=== PATIENT | female | born 1950 | race Caucasian/White ===

== ENCOUNTER → 2018-01-29 14:50 | Outpatient (CLI) | payer MEDICARE, MEDICAID, SELFPAY ==
--- NOTE | 2018-01-29 14:57 | CT_ITS ---
STUDY: CT MAXILLOFACIAL SINUSES REASON FOR EXAM: Female, 67 years old. Acute maxillary sinusitis RADIATION DOSAGE (If Supplied By Facility): CTDIvol = ( 33.06 ) mGy, DLP = ( 829.72 ) mGycm TECHNIQUE: The patient was scanned in a multi detector CT scanner. High resolution axial imaging was performed without the administration of intravenous contrast material. Sagittal and coronal images were reconstructed. Individualized dose optimization techniques were used for this CT. COMPARISON: None. FINDINGS: FRONTAL SINUSES: Clear. ETHMOIDAL SINUSES: Normal aeration, without mucosal inflammatory disease. MAXILLARY SINUSES: Air-fluid level left maxillary sinus. SPHENOIDAL SINUSES: Normal aeration, without mucosal inflammatory disease. There is patency of the bilateral maxillary infundibuli with normal uncinate processes, ethmoid bullae, and hiatus semilunaris. There is a nik bullosa of the right middle turbinate. Normal bilateral inferior turbinates. Normal midline nasal septum. There is patency of the bilateral nasal airways. The visualized osseous structures are normal. The visualized bilateral orbital contents are normal. CT/Sinus/Facial Bone IMPRESSION: Acute left maxillary sinusitis Electronically Signed: Eric Woods MD at 22:00 EDT , Service support ,
== END ==
PROVIDERS: Family Provider Internal Medicine; PCP Internal Medicine; Visit Provider Otolaryngology
DX: J01.00 Acute maxillary sinusitis, unspecified (principal)
CPT/HCPCS: 70486

== ENCOUNTER 2018-02-12 10:49 | Day surgery (SDC) | payer MEDICARE, MEDICAID, SELFPAY ==
[2018-02-12] VITALS (7 sets, daily range): BP systolic 103–148; BP diastolic 64–69; PULSE 62–75; RESP 16–18; TEMP 36.1–37.2; O2SAT 94–100; BMI 18.7
--- NOTE | 2018-02-12 11:00 | EKG12_ITS ---
Test Reason : PRE OP Blood Pressure : / mmHG Vent. Rate : 066 BPM Atrial Rate : 066 BPM P-R Int : 162 ms QRS Dur : 098 ms QT Int : 396 ms P-R-T Axes : 080 015 075 degrees QTc Int : 415 ms Normal sinus rhythm Normal ECG No previous ECGs available Confirmed by HAZEL VALLE, ADDISON ([id number]), news assignment editor CANDELARIO PORTILLO ([id number]) on 02/18/2018 4:09:10 PM Referred By: Kyrie Watters Confirmed By:ADDISON OLIVA MD
[2018-02-12 11:33] LABS: Hematocrit 43.5 % (37-47); Hemoglobin 14.5 g/dl (12.0-15.0); Mean Corp Hgb Conc 33.3 g/gl (32-36); Mean Corpuscular Hgb 31.7 pg (27.0-32.0); Mean Corpuscular Volume 95.2 fL (81-99); RBC Distribution Width CV 13.8 % (11.6-14.6); RBC Distribution Width SD 47.5 fl (35.1-43.9); Red Blood Count 4.57 M/mm3 (4.2-5.4); White Blood Count 7.4 K/mm3 (4.4-11.0)
[2018-02-12 11:34] LABS: Basophil% 0.5 % (0-1); Eosinophils% 1.2 % (0-5); Lymphocyte # 1.46 X10^3/ul (4.0); Lymphocyte % 19.7 % (19-41); Mean Platelet Vol. 9.9 fl (6.2-12.0); Monocyte% 11.5 % (0-10); Neutrophil # 4.95 X10^3/uL (2.7-7.7); Platelet Count 262 K/mm3 (150-450)
[2018-02-12 11:35] LABS: Absolute Lymphocyte Count 1.46 X10^3/ul (0.83-4.51); Basophil# 0.04 X10^3/uL; Eosinophil# 0.09 X10^3/uL; Monocyte# 0.85 X10^3/uL; POSITIVE COUNT NO; POSITIVE DIFFERENTIAL NO; POSITIVE MORPHOLOGY NO
[2018-02-12 12:07] LABS: Anion Gap 5 (5-15); BUN 12 mg/dL (7-18); Calcium,Total 9.6 mg/dL (8.5-10.1); Chloride 100 mmol/L (98-107); Creatinine, Serum 0.63 mg/dL (0.55-1.02); EST Glomerular Filtration Rate 99 mL/min (>60); Est Glom Filt Rate - Afr Amer 120 mL/min (>60); Estimated Creatinine Clearance 40.23 ml/min; Glucose 98 mg/dL (74-106); Potassium 4.1 mmol/L (3.5-5.1); Sodium Level 135 mmol/L (136-145); Thyroid Stim Hormone (TSH) 0.61 uIU/mL (0.358-3.74)
[2018-02-12] MEDS: Oxymetazoline 0.05% 1 SPRAY SPRAY.BTL 15 SPRAY (14:05)
[2018-02-12] MEDS: Lidocaine 4% 50 ML Bottle (14:05)
--- NOTE | 2018-02-12 15:20 | PCM.OPRPT ---
Problem List (1) Chronic maxillary sinusitis Status: Chronic (2) Chronic ethmoidal sinusitis Status: Chronic Report of Operation Date of Procedure: 02/12/18 Pre-Operative Diagnosis: Chronic maxillary, ethmoid sinusitis with nik bullosa Post-Operative Diagnosis: same Surgery/Procedure Performed:: Endoscopic sinus surgery with bilateral maxillary antrotomies, left total ethmoidectomy, right nik bullosa resection Description of Surgical Findings:: Unit is a 67-year-old female complains of chronic facial pain pressure and postnasal drip sensation. She failed to show improvement despite continuous antibiotic and medical therapy CT scan showed chronic sinusitis changes the above procedure was offered in hopes of alleviation of her complaints and she was eager to proceed. The risks, alternatives, potential benefits, and complications were discussed at length and any questions answered to the patient and/or caregiver's satisfaction. Witnessed informed consent was obtained in the office, and the patient and/or caregiver was agreeable to proceed. Procedure went as follows: The patient was identified in the preoperative holding and brought to the operating room, was placed under general anesthesia and intubated. When appropriate anesthesia was obtained, the navigational head gear was placed and confirmed to be operational in accordance with the executive creative director's directions. Pledgets soaked in a 50-50 mixture of oxymetazoline and 4% topical lidocaine were placed to decongest the nasal mucosa. These were then removed and beginning on the left side using a 0? endoscope the nasal cavity examined. The insertion of the middle turbinate and uncinate process was then injected with 1% lidocaine with 100,000 epinephrine for a 2 cc total, and a similar injection was then carried on the contralateral side. Upon returning to the left side the middle turbinate was divided and the lateral aspect fo the nik bullosa removed with a [place] elevator. This allowed examination of the maxillary sinus ostia which is then probed with a double ball seeker. Junito purulent drainage was noted and aspirated clear. The uncinate process process was then outfractured with a J curette and transected with a backbiting forceps. This was then removed with the microdebrider creating a wide maxillary antrostomy. The ethmoid bulla was then entered and total ethmoidectomy was then carried out working posteriorly to anterior. Any polyps, scar, and mucous secretions were removed. Pledgets soaked in oxymetazoline were then placed for hemostasis and attention turned to the contralateral side. Similar procedure and findings were then carried out with multiple accessory maxillary sinus ostia noted that were joined to a common opening and the ethmoid surgery limited to resection of the lateral wall fo the nik bullosa. Minimal bleeding was encountered. An NG tube was then placed to decompress the stomach and the patient returned to anesthesia, revived and extubated having tolerated the procedure well. Type of Anesthesia:: General Anesthesiologist: Ld Hayes Special Medications: none Specimen's removed: sinus contents Drains: none Estimated Blood Loss (mL): 25 mL Fluids Replaced: 900 mL - Complications none - Admit VTE Documentation VTE Present on Admission: No VTE Mechan Device Prophylaxis: SCD's VTE Pharm Prophylaxis ordered?: No
--- NOTE | 2018-02-12 15:27 | PCM.DC ---
- Discharge Diagnoses Current Active Problems: Current Active and Chronic Problems (Last Updated 01/28/18 @ 16:55 by Lucina Perla) Chronic maxillary sinusitis (Chronic) Chronic ethmoidal sinusitis (Chronic) You will use the following diet at home:: Regular Discharge Activity: Return to Normal Activity, May not drive while taking narcotic pain medications. Call your doctor if your incision/area has: Continuous Slow Oozing, Sudden Increased Bleeding Call your doctor if you observe: Fever of 101 or Higher, Uncontrolled pain Allergies/Adverse Reactions: Allergies benztropine [From Cogentin] Allergy (Severe, Verified 01/28/18 16:37) hallucinations lithium Allergy (Severe, Verified 01/28/18 16:37) Nausea/Vom/Diarrhea niacin Allergy (Severe, Verified 01/28/18 16:37) Rash Penicillins Allergy (Severe, Verified 01/28/18 16:37) Hives soybean Allergy (Intermediate, Verified 01/28/18 16:37) Rash Sulfa (Sulfonamide Antibiotics) Allergy (Intermediate, Verified 01/28/18 16:37) Hives trazodone Allergy (Intermediate, Verified 01/28/18 16:37) breathing problems cephalexin [From Keflex] Adverse Reaction (Verified 02/05/18 10:54) yeast indection Medications to take at Discharge atenolol 25 mg tablet 25 mg PO QDAY 01/28/18 calcium citrate 200 mg (950 mg) tablet 500 mg PO BID tab 01/28/18 cetirizine 10 mg tablet 10 mg PO QDAY PRN 01/28/18 denosumab 60 mg/mL subcutaneous syringe 60 mg SC [id number] 01/28/18 diclofenac 1 % topical gel 2 g TOPICAL ONCE PRN 01/28/18 digestive enzymes tablet 1 tab PO QDAY 01/28/18 famotidine 20 mg tablet 20 mg PO BID 01/28/18 fluticasone 50 mcg/actuation nasal spray,suspension 2 spray INTRANASAL QDAY 01/28/18 folic acid 1 mg tablet 1.5 mg PO QDAY 01/28/18 guaifenesin ER 1,200 mg tablet, extended release 12 hr 1,200 mg PO Q12H 01/28/18 levothyroxine 75 mcg tablet 75 mcg PO QDAY 01/28/18 magnesium oxide 400 mg capsule 800 mg PO QDAY cap 01/28/18 metronidazole 0.75 % topical cream 1 applic TOPICAL BID 01/28/18 mirtazapine 45 mg tablet 45 mg PO QHS 01/28/18 mupirocin 2 % topical ointment 1 applic TOPICAL TID 01/28/18 omega-3 fatty acids-fish oil 360 mg-1,200 mg capsule 1 cap PO TID 01/28/18 pilocarpine 5 mg tablet 5 mg PO TID 01/28/18 Albuterol Aerosols [Ventolin Aerosols] 2.5 mg INHALATION Q6HWA.RT 02/05/18 Cholecalciferol (Vitamin D3) [Vitamin D3] 2,000 unit PO BID 02/05/18 Therems-A 1 tab PO DAILY 02/05/18 Tiotropium [place] [Spiriva 18 MCG] 1 puff INHALATION DAILY 02/05/18 Primary Care Physician: Misty Hudson MD [Primary Care Provider] - Please Follow Up With: Kyrie Watters MD When: 10 days
== END 2018-02-12 17:22 | disposition home or self-care (01) ==
LOC: SDC 10:52 → AC 10:53
PROVIDERS: Anesthesiology; Family Provider Internal Medicine; PCP Internal Medicine; Visit Provider Otolaryngology
PROC: (CPT 31240; principal; 2018-02-12 12:15)
DX: J32.0 Chronic maxillary sinusitis (principal); J32.2 Chronic ethmoidal sinusitis; J34.89 Other specified disorders of nose and nasal sinuses; I10 Essential (primary) hypertension; I48.91 Unspecified atrial fibrillation; E78.5 Hyperlipidemia, unspecified; J43.9 Emphysema, unspecified; D64.9 Anemia, unspecified; K21.9 Gastro-esophageal reflux disease without esophagitis; M19.90 Unspecified osteoarthritis, unspecified site; E11.9 Type 2 diabetes mellitus without complications; E07.9 Disorder of thyroid, unspecified; E83.42 Hypomagnesemia; F17.200 Nicotine dependence, unspecified, uncomplicated; J45.909 Unspecified asthma, uncomplicated; Z79.899 Other long term (current) drug therapy
CPT/HCPCS: 00160; 31240; 31255; 31256; 36415; 80048; 80053; 80061; 83036; 83735; 84439; 84443; 85025; 88304; 88305; 88311; 88312; 93005; J7120

== ENCOUNTER → 2018-02-12 11:21 | Outpatient (CLI) | payer MEDICARE, MEDICAID, SELFPAY ==
--- NOTE | 2018-02-12 | ETH_PTH ---
PATIENT: SHENG CISNEROS LOC: [facility] U#:[id number] AGE/SX: 74/F ROOM: RE02/12/[address]: Dr. Misty Hudson MD : 1950 BED: DIS: SPEC #: [id number] RECD: 02/15/18 09:51 STATUS: SOCRATES JESS #: [id number] CARINE: 02/12/18 00:[address]: Kyrie Watters DEPT: SURGICAL PATHOLOGY RECD BY: Emery Hernandez ENTERED: 02/15/18 10:11 SP TYPE: ETH TISS OTHR DR: Dr. Misty Hudson MD Tissues: A - Ethmoid sinus, NOS B - Ethmoid sinus, NOS Procedures: Decalcification bone/plaque Special Stain Group I Surgery Specimen Level III AFB Stain (control) GMS Stain (control) HEADER OPERATION: Endoscopy, left nasal total ethmoidectomy, left nasal maxillary antrostomy PRE-OP DIAGNOSIS: Chronic ethmoid and maxillary sinusitis TISSUE SUBMITTED: A. Right ethmoid and maxillary sinus contents, B. Left ethmoid and maxillary sinus contents MICROSCOPIC DIAGNOSIS A. Right ethmoid and maxillary sinus contents, excision: Fibrinopurulent material. Respiratory epithelium with mild chronic inflammation. Turbinate tissue with mild chronic inflammation. Negative for acid-fast bacilli and fungal organisms. B. Left ethmoid and maxillary sinus contents, excision: Consistent with chronic sinusitis. Focal fibrinopurulent material. Turbinates with mild chronic inflammation. Negative for acid-fast bacilli and fungal organisms. AM:charli 02/18/18 COMMENT A & B. AFB and GMS stains with matched controls were used in the evaluation of this case. MICROSCOPIC DESCRIPTION Slides are reviewed. GROSS DESCRIPTION A. Received in fixative is one container labeled with the patient's name and designated right ethmoid and maxillary sinus content. The specimen consists of multiple irregular fragments of hemorrhagic soft tissue mixed with fragments of bone, including turbinate that in aggregate measure 5 x 3 x 1 cm. The entire specimen is submitted in six cassettes after decalcification. B. Received in fixative is one container labeled with the patient's name and designated left ethmoid and maxillary sinus content. The specimen consists of multiple irregular fragments of hemorrhagic soft tissue mixed with fragments of bone, including turbinate that in aggregate measure 5 x 3 x 1 cm. The entire specimen is submitted in six cassettes after decalcification. / CANDIDO:catherine 02/15/18 TC:2 CPT: 66718 x2, 17972 x2, 17924 x4
[2018-02-12 11:30] LABS: Absolute Lymphocyte Count 1.46 X10^3/ul (0.83-4.51); Basophil# 0.04 X10^3/uL; Basophil% 0.5 % (0-1); Eosinophil# 0.09 X10^3/uL; Eosinophils% 1.2 % (0-5); Hematocrit 43.5 % (37-47); Hemoglobin 14.5 g/dl (12.0-15.0); Lymphocyte # 1.46 X10^3/ul (4.0); Lymphocyte % 19.7 % (19-41); Mean Corp Hgb Conc 33.3 g/gl (32-36); Mean Corpuscular Hgb 31.7 pg (27.0-32.0); Mean Corpuscular Volume 95.2 fL (81-99); Mean Platelet Vol. 9.9 fl (6.2-12.0); Monocyte# 0.85 X10^3/uL; Monocyte% 11.5 % (0-10); Neutrophil # 4.95 X10^3/uL (2.7-7.7); Platelet Count 262 K/mm3 (150-450); RBC Distribution Width CV 13.8 % (11.6-14.6); RBC Distribution Width SD 47.5 fl (35.1-43.9); Red Blood Count 4.57 M/mm3 (4.2-5.4); White Blood Count 7.4 K/mm3 (4.4-11.0)
[2018-02-12 11:32] LABS: POSITIVE COUNT NO; POSITIVE DIFFERENTIAL NO; POSITIVE MORPHOLOGY NO
[2018-02-12 11:56] LABS: Hemoglobin A1c 5.8 % (4.2-6.3)
[2018-02-12 11:57] LABS: ALB/GLOB Ratio 0.9 RATIO (0.9-2.4); AST(SGOT) 19 U/L (15-37); Alanine Aminotransfer ALT/SGPT 28 U/L (13-56); Albumin, Serum 3.9 g/dL (3.2-5.0); Alkaline Phosphatase 83 U/L (45-117); Anion Gap 7 (5-15); BUN 12 mg/dL (7-18); BUN/Creat Ratio 18.7 RATIO (10-20); Calcium,Total 9.3 mg/dL (8.5-10.1); Chloride 100 mmol/L (98-107); Cholesterol 239 mg/dL (200); Creatinine, Serum 0.64 mg/dL (0.55-1.02); EST Glomerular Filtration Rate 97 mL/min (>60); Est Glom Filt Rate - Afr Amer 118 mL/min (>60); Globulin 4.2 g/dL (2.2-4.2); Glucose 97 mg/dL (74-106); High Density Lipoprotein 101 mg/dL; Magnesium 1.9 mg/dL (1.6-2.6); Protein, Total 8.1 g/dL (6.4-8.2); Sodium Level 136 mmol/L (136-145); T4 Free Direct 1.19 ng/dL (0.76-1.46); Thyroid Stim Hormone (TSH) 0.65 uIU/mL (0.358-3.74); Triglycerides 82 mg/dL; Very Low Density Lipoprotein 16 mg/dL (5-40)
== END ==
PROVIDERS: Family Provider Internal Medicine; PCP Internal Medicine; Visit Provider Internal Medicine
DX: I10 Essential (primary) hypertension (principal); E07.9 Disorder of thyroid, unspecified; E83.42 Hypomagnesemia; E11.9 Type 2 diabetes mellitus without complications
CPT/HCPCS: 36415; 80053; 80061; 83036; 83735; 84439; 84443; 85025

== ENCOUNTER → 2018-03-15 10:38 | Outpatient (CLI) | payer MEDICARE, MEDICAID, SELFPAY ==
--- NOTE | 2018-03-18 15:10 | LEAS_ITS ---
Arterial Study - Arterial Study Arterial Study: This is a 67-year-old female with a history of peripheral arterial occlusive disease. The patient is brought to the noninvasive vascular laboratory at this time for the purpose of bilateral noninvasive lower extremity arterial assessment. Doppler signal assessment was used to evaluate the pulses at ankle level bilaterally. The posterior tibial and dorsalis pedis pulses were triphasic bilaterally. Segmental limb pressures were obtained at ankle level bilaterally. The right ankle pressure, as determined by posterior tibial pulse, was measured at 166 mmHg. The right ankle pressure, as determined by dorsalis pedis pulse, was measured at 159 mmHg. The left ankle pressure, as determined by posterior tibial pulse, was measured at 165 mmHg. The left ankle pressure, as determined by dorsalis pedis pulse, was measured at 159 mmHg. Pulse-volume recordings were obtained at ankle and digital levels bilaterally. Waveform amplitudes appeared to be satisfactory bilaterally. Resting ankle-brachial indices were calculated bilaterally. The resting right ankle-brachial index was calculated to be 1.10. The resting left ankle- brachial index was calculated to be 1.09. Impression: Based upon the findings of this resting noninvasive lower extremity arterial study, there is no evidence of significant atherosclerotic peripheral arterial occlusive disease in the lower extremities bilaterally. Triphasic waveforms are noted at ankle level bilaterally. Resting ankle-brachial indices are bilaterally normal. In summary, this represents a normal resting noninvasive lower extremity arterial study bilaterally.
== END ==
PROVIDERS: Family Provider Internal Medicine; PCP Internal Medicine; Visit Provider Internal Medicine
DX: I73.9 Peripheral vascular disease, unspecified (principal)
CPT/HCPCS: 93922

== ENCOUNTER → 2018-04-12 13:58 | Outpatient (CLI) | payer MEDICARE, MEDICAID, SELFPAY | PROVIDERS: Family Provider Internal Medicine; PCP Internal Medicine; Visit Provider Internal Medicine | DX: E04.1 Nontoxic single thyroid nodule (principal) | CPT/HCPCS: 76536 ==

== ENCOUNTER → 2018-05-10 13:03 | Outpatient (CLI) | payer MEDICARE, MEDICAID, SELFPAY ==
--- NOTE | 2018-05-10 13:05 | RAD_ITS ---
STUDY: X-RAY - LUMBAR SPINE REASON FOR EXAM: Female, 67 years old. Low back pain TECHNIQUE: 5 view(s) of the lumbar spine were obtained. COMPARISON: None FINDINGS: The bones are osteopenic. Normal lumbar lordosis. There is no substantial scoliosis. There is a normal alignment of the vertebrae. There is mild diffuse endplate spondylosis. There is multi-level degenerative disc disease with multi-level disc space narrowing. The soft tissue structures are unremarkable. RAD/L/S Spine Min 4 Views IMPRESSION: 1. Generalized osteopenia. 2. Multilevel disc space narrowing and diffuse endplate spondylosis. 3. There is no evidence of fracture, spondylolysis, or spondylolisthesis. Electronically Signed: Ricardo Finnegan MD at 23:30 EDT , Service support ,
== END ==
PROVIDERS: Family Provider Internal Medicine; PCP Internal Medicine; Visit Provider Internal Medicine
DX: M54.9 Dorsalgia, unspecified (principal)
CPT/HCPCS: 72110

== ENCOUNTER → 2018-06-02 14:00 | Outpatient (CLI) | payer MEDICARE, MEDICAID, SELFPAY ==
--- NOTE | 2018-06-03 | ASPS_PTH ---
PATIENT: SHENG CISNEROS LOC: [facility] U#:[id number] AGE/SX: 74/F ROOM: RE06/02/[address]: Dr. Carlos Moseley MD : 1950 BED: DIS: SPEC #: [id number] RECD: 06/03/18 12:11 STATUS: SOCRATES JESS #: [id number] CARINE: 06/03/18 00:[address]: Carlos Moseley DEPT: CYTOLOGY RECD BY: Maximus Barrientos ENTERED: 06/03/18 12:13 SP TYPE: ASPIRATION OTHR DR: Dr. Misty Hudson MD Tissues: Thyroid gland, NOS Procedures: Pap Stain (control) Special Stain Group II Cytology Other HEADER OPERATION: Ultrasound-guided fine needle aspiration right thyroid PRE-OP DIAGNOSIS: Multiple thyroid nodules E04.2 TISSUE SUBMITTED: Fine needle aspiration right thyroid 8 slides DIAGNOSIS CYTOLOGY Right thyroid nodule, ultrasound guided FNA (smears): Consistent with benign colloid nodule. See cytology study and comment. SJ:rg 06/04/18 COMMENT Correlation with clinical, radiologic findings and appropriate follow up are necessary. CYTOLOGY STUDY Slides are reviewed. The specimen is adequate for evaluation. The specimen consists of abundant colloid and a few clusters of benign follicular cells. CYTOLOGY GROSS Received are eight smears labeled with the patient's name and designated per the requisition as right thyroid. Submitted for staining. / 06/03/18 TC:5 CPT: 78471
== END ==
PROVIDERS: Family Provider Internal Medicine; PCP Internal Medicine; Referring Provider Surgery; Visit Provider Surgery
DX: E04.2 Nontoxic multinodular goiter (principal)
CPT/HCPCS: 88161; 88313

== ENCOUNTER 2018-08-11 14:45 | Outpatient (RCR) | payer MEDICARE, MEDICAID, SELFPAY ==
--- NOTE | 2018-08-11 16:05 | HP.PTEVAL ---
Patient's Visit Information JOVON CISNEROS is a 68 year old F referred to Physical Therapy by PUJA GARZA with a diagnosis of L hip bursitis. Date of Evaluation: 08/11/18 Physical Therapist: Enmanuel Valentino PT, ATC - Visit Plan Frequency: 2-3x /Week Duration: 4-6 Weeks Plan: L LE stretching and strengthening, balance and proprio, core stab ex's, nustep, and HEP - Subjective Findings: Pt reports she has had L hip pain for over one year. Pt reports she was referred to PT over a year ago, but was new to the area and didnt know where she should go. Pt reports her L hip is constant in nature. Pt reports her L hip pain is sharp at times and gives out on her. Pt reports she gets really bad pain in her groin region. Pt reports sleep diff at this time secondary to pain. Pt reports sitting in different positions, walking, stairs, and getting dressed all increase her pain. Pt had xrays on 07/23/18 which reveqled no positive finding. 7/10 pain at rest, 8/10 pain at worst - Pain L hip Pain Intensity (Out of 10): 7 Pain Intensity Range: 8 - Objective Neuro: B LE sensation is WNL to light touch. B patellar tendon reflex= 2/3. Palpation: Pt is point tender to touch on the greater trochanter. No obvious deformity. ROM: Pt is moderately limited with IR ROM. all other motions are WNL. MMT: L hip flex, IR, and ER 3-/5 and are painful with testing. All other LE MMT 5/5 throughout. Special tests: Pos quadrant test and piriformis test - Goals Goal 1:: Decrease L hip pain x 50% to aid with sleep Goal Time Frame: 4-6 Weeks Goal 2:: Increase L hip strength x 1 grade to aid with stair negotiation Goal Time Frame: 4-6 Weeks Goal 3:: I with HEP Goal Time Frame: 4-6 Weeks - Rehabilitation Potential Physical Therapy Diagnosis: L hi pain, weakness, and limited mobility secondary to deg changes in the L hip Rehabilitation Potential: Good - Anticipated Interventions Patient/Client Instruction: Educate patient on: Condition, Plan of Care For the Purpose of:: To improve self management Therapeutic Exercise to Include: Strength training, Endurance training, Balance training, Gait and locomotor training, Dynamic Lumbar Stabilization For the Purpose of:: To decrease pain, To increase ROM, To improve muscle performance and motor function Iontophoresis (with Dexamethozone, with Acetic acid): Yes Ultrasound (thermal/non thermal): Yes For the Purpose of:: To decrease pain Thank you for the opportunity to evaluate your patient. For Medicare and Medicare HMO plans, please review the plan of care and approve it. It will need to be FAXED BACK to us at [phone] for Medicare purposes. For Medicare only, by signing this I certify the plan of care. Please let me know if there are questions or concerns regarding this plan of care. Physician Signature: Date:
--- NOTE | 2018-11-02 16:55 | HP.PT.NRP ---
HP - Discharge Summary (1) - Patient Information JOVON CISNEROS was seen in my office for initial evaluation on 08/11/18. The following Plan of Care was established for this patient: Initial Frequency: 2-3x /Week Initial Duration: 4-6 Weeks - Anticipated Interventions Patient/Client Instruction: Educate patient on: Condition, Plan of Care For the Purpose of:: To improve self management Therapeutic Exercise to Include: Strength training, Endurance training, Balance training, Gait and locomotor training, Dynamic Lumbar Stabilization For the Purpose of:: To decrease pain, To increase ROM, To improve muscle performance and motor function Iontophoresis (with Dexamethozone, with Acetic acid): Yes Ultrasound (thermal/non thermal): Yes For the Purpose of:: To decrease pain This patient was last seen in our office . Pertinent comments regarding their Physical therapy will appear below: Pt was evaluated for her hip pain on the date of 08/11/18 and a POC was developed. Pt has not returned since that date and is therefore discontinued at this time At this point I will be discontinuing this patient from physical therapy. I would be happy to see this patient again in the future if found appropriate by the physician. Thank you! Enmanuel Valentino, PT, ATC
== END 2018-08-11 19:00 | disposition home or self-care (01) ==
LOC: PT 14:45
PROVIDERS: Family Provider Internal Medicine; PCP Internal Medicine
DX: M70.62 Trochanteric bursitis, left hip (principal); M76.32 Iliotibial band syndrome, left leg
CPT/HCPCS: 97162

== ENCOUNTER → 2018-08-24 15:19 | Outpatient (CLI) | payer MEDICARE, MEDICAID, SELFPAY ==
--- NOTE | 2018-08-24 15:23 | RAD_ITS ---
STUDY: X-RAY - PELVIS AND LEFT HIP REASON FOR EXAM: Left hip pain. TECHNIQUE: 3 views of the pelvis and hip. COMPARISON: None. FINDINGS: There is osteopenia. There is mild vascular calcification. There are surgical clips in the right hemipelvis. Normal bilateral iliac wings, sacroiliac joints and visualized sacrum. Normal bilateral superior and inferior pubic rami. Normal pubic symphysis. Normal bilateral ischial tuberosities. There is a subchondral radiolucency with sclerotic margins in the left femoral head. Normal acetabulum. There is mild chondrocalcinosis at the lateral aspect of left hip joint. RAD/HIP, UNI W/ Pelvis 2-3 Views IMPRESSION: Subchondral cystic lesion with sclerotic margins in the left femoral head. Mild chondrocalcinosis of the left hip joint. Osteopenia. Electronically Signed: Torres Pate MD at 10:37 EST Tel , Service support ,
== END ==
PROVIDERS: Family Provider Internal Medicine; PCP Internal Medicine; Referring Provider Nurse Practitioner Family; Visit Provider Nurse Practitioner Family
DX: M25.552 Pain in left hip (principal); G89.29 Other chronic pain
CPT/HCPCS: 73501; 73502

== ENCOUNTER → 2018-11-09 15:54 | Outpatient (CLI) | payer MEDICARE, MEDICAID, SELFPAY ==
--- NOTE | 2018-11-09 15:58 | RAD_ITS ---
STUDY: X-RAY CHEST REASON FOR EXAM: Female, 68 years old. Cough TECHNIQUE: PA and lateral views of the chest. COMPARISON: None. FINDINGS: There is hyperinflation of the lungs consistent with chronic obstructive lung disease (COPD). There is no demonstrated pleural abnormality. Normal size heart. Normal mediastinum and maureen. Normal visualized pulmonary arteries. There is atherosclerotic tortuosity of the aortic arch and descending thoracic aorta. Normal visualized thoracic spine. Normal visualized ribs, clavicles, and shoulders. There is no demonstrated abnormality of the visualized soft tissue structures of the upper abdomen. RAD/Chest PA and Lateral IMPRESSION: COPD. No focal superimposed lung infiltrate identified. Electronically Signed: Sallie Quick MD at 11:36 EDT , Service support ,
== END ==
PROVIDERS: Family Provider Internal Medicine; PCP Internal Medicine; Referring Provider Nurse Practitioner Family; Visit Provider Nurse Practitioner Family
DX: R05 Cough (principal)
CPT/HCPCS: 71046

== ENCOUNTER 2018-11-25 13:06 | Emergency (ER) | payer MEDICARE, MEDICAID, SELFPAY ==
[2018-11-25 13:07] VITALS: BP 147/87; PULSE 75; RESP 18; TEMP 36.3; O2SAT 97; BMI 20.4
--- NOTE | 2018-11-25 13:15 | EKG12_ITS ---
Test Reason : CHEST TIGHTNESS Blood Pressure : / mmHG Vent. Rate : 063 BPM Atrial Rate : 063 BPM P-R Int : 188 ms QRS Dur : 092 ms QT Int : 412 ms P-R-T Axes : 083 058 080 degrees QTc Int : 421 ms Normal sinus rhythm Normal ECG Confirmed by IVONNE NIXON ([id number]), newspaper editor managing CANDELARIO PORTILLO ([id number]) on 11/29/2018 4:55:03 PM Referred By: SEVERINO/SRINI Confirmed By:IVONNE NIXON
--- NOTE | 2018-11-25 13:35 | RAD_ITS ---
STUDY: X-RAY CHEST REASON FOR EXAM: Female, 68 years old. Increasing shortness of breath and dyspnea. TECHNIQUE: PA and lateral views of the chest. COMPARISON: Comparison is made with prior study of November 09, 2018. FINDINGS: Hyperinflation. The lungs are clear and expanded. Stable mild increased markings of the lung apices suggestive of apical scarring. Stable increased markings at the lung bases suggestive scarring. There is no demonstrated pleural abnormality. Normal size heart. Normal mediastinum and maureen. Normal visualized pulmonary arteries. There is atherosclerotic calcification of the aortic arch with tortuosity. There are degenerative changes of the visualized thoracic spine. Normal visualized ribs, clavicles, and shoulders. There is no demonstrated abnormality of the visualized soft tissue structures of the upper abdomen. RAD/Chest PA and Lateral IMPRESSION: Hyperinflation. Stable bilateral apical scarring as well as mild scarring at the lung bases. Electronically Signed: Nilton Cortes, at 14:36 EDT , Service support ,
--- NOTE | 2018-11-25 13:37 | ED.VISSUMM ---
- ER Visit Summary Date of Service: 11/25/18 Chief Complaint: Nausea, chest pain, and cough History of Present Illness: The patient is a 68 F who presents with nausea, vomiting, and chest pain that has been getting progressively worse over the past 4 weeks. Patient states she also has some pain in her left upper abdomen for the past few days. Patient describes her pain as burning, and scratchy. Patient states the pain radiates into her back and into her throat. Patient also admits to some left ear pain. Patient also admits to some pressure over her left maxillary sinus. Patient was recently given prescription for Levaquin for 5 days. Patient had no improvement after completing this. Patient is currently on doxycycline. Physical Examination: Vital signs are stable. Patient is afebrile. Patient is in no acute distress. Oral mucosa is pink and moist. Oropharynx is clear. Neck is supple. Trachea is midline. There is no JVD noted. Heart was regular rate and rhythm. Lungs showed diffuse expiratory wheezing. There is good respiratory effort noted. Abdomen is soft. There is some mild epigastric and left lower quadrant tenderness. There is no rebound or guarding noted. Cranial nerves II through XII are intact. There are no focal motor or sensory deficits noted. Test Results: EKG showed a normal sinus rhythm with a rate of 63. There are no acute ST or T wave changes. CBC was normal. Comprehensive metabolic profile showed a sodium of 126 and chloride of 90. Urinalysis was normal. Chest x-ray shows hyperinflation but no acute cardiopulmonary process. Emergency Department Course and Treatment: Patient was given a DuoNeb aerosol. Patient felt better on reevaluation. Patient was instructed to follow-up with her primary care physician in 5-7 days. Patient understood and was agreeable with the plan. All questions were answered. Disposition: Discharge home Impression: COPD exacerbation This note was generated with [employer] dictation software. It may contain incorrect words, spelling, and punctuation that were not noted in review of the chart prior to signing ED Disposition - Plan for ED Patient: Disposition: Home or Assisted Living Diagnosis: COPD with exacerbation Instructions: ED URI Viral, ED COPD Flare Referrals: Misty Hudson MD [Primary Care Provider] - 5-7 Days
[2018-11-25] MEDS: Albuterol 2.5 MG/3 ML VIAL.NEB. INHALATION (13:58)
[2018-11-25 13:59] VITALS: PULSE 62; RESP 18; O2SAT 100
[2018-11-25 14:10] LABS: Absolute Lymphocyte Count 1.09 X10^3/ul (0.83-4.51); Absolute Neutrophil Count 3.2 X10^3/uL (2.0-7.7); Basophil# 0.03 X10^3/uL; Basophil% 0.6 % (0-1); Eosinophil# 0.18 X10^3/uL; Eosinophils% 3.4 % (0-5); Hemoglobin 13.3 g/dl (12.0-15.0); Lymphocyte # 1.09 X10^3/ul (4.0); Lymphocyte % 20.7 % (19-41); Mean Corpuscular Hgb 32.1 pg (27.0-32.0); Mean Corpuscular Volume 91.8 fL (81-99); Mean Platelet Vol. 9.1 fl (6.2-12.0); Monocyte# 0.79 X10^3/uL; Neutrophil # 3.15 X10^3/uL (2.7-7.7); Neutrophil % 59.9 % (47-70); Platelet Count 185 K/mm3 (150-450); RBC Distribution Width CV 12.9 % (11.6-14.6); RBC Distribution Width SD 43.5 fl (35.1-43.9); Red Blood Count 4.14 M/mm3 (4.2-5.4); White Blood Count 5.3 K/mm3 (4.4-11.0)
[2018-11-25 14:12] LABS: POSITIVE COUNT NO; POSITIVE DIFFERENTIAL NO; POSITIVE MORPHOLOGY NO
[2018-11-25 14:25] LABS: ALB/GLOB Ratio 1.1 RATIO (0.9-2.4); AST(SGOT) 18 U/L (15-37); Alanine Aminotransfer ALT/SGPT 33 U/L (13-56); Albumin, Serum 3.6 g/dL (3.2-5.0); Alkaline Phosphatase 67 U/L (45-117); Anion Gap 3 (5-15); BUN 17 mg/dL (7-18); BUN/Creat Ratio 27.3 RATIO (10-20); Calcium,Total 9.1 mg/dL (8.5-10.1); Chloride 90 mmol/L (98-107); Creatinine, Serum 0.62 mg/dL (0.55-1.02); EST Glomerular Filtration Rate 101 mL/min (>60); Est Glom Filt Rate - Afr Amer 122 mL/min (>60); Estimated Creatinine Clearance 43.22 ml/min; Globulin 3.4 g/dL (2.2-4.2); Glucose 103 mg/dL (74-106); Lipase 80 U/L (73-393); Potassium 3.7 mmol/L (3.5-5.1); Sodium Level 126 mmol/L (136-145)
[2018-11-25 14:34] LABS: Bacteria 0 SEEN /hpf (None Seen); Mucous, Urine 0 SEEN /hpf (<or=2+); Red Blood Cells-Urine 0 SEEN /hpf (0-5); White Blood Cells 0 SEEN /hpf (0-5)
[2018-11-25 14:35] LABS: Color, Urine Straw (Yellow); Glucose, Dipstick Normal (Normal); Ketone-Dipstick Negative (Negative); Leukocyte Esterase-Dipstick Negative /ul (Negative); Nitrite-Dipstick Negative (Negative); Occult Blood-Urine Negative /ul (Negative); Protein-Dipstick Negative (Negative); Urine Bilirubin Dipstick Negative (Negative); Urine Clarity Clear (Clear); Urine Urobilinogen Normal (Normal)
[2018-11-25 14:42] LABS: Squamous Epithelial Cells - UA 0-5 SEEN /hpf (5-10)
[2018-11-25 15:27] VITALS: PULSE 78; RESP 16; O2SAT 98
== END 2018-11-25 15:28 | disposition home or self-care (01) ==
PROVIDERS: Emergency Provider Emergency Medicine; Family Provider Internal Medicine; PCP Internal Medicine
DX: J44.1 Chronic obstructive pulmonary disease with (acute) exacerbation (principal); K21.9 Gastro-esophageal reflux disease without esophagitis; I10 Essential (primary) hypertension; E78.00 Pure hypercholesterolemia, unspecified; E03.9 Hypothyroidism, unspecified; F17.200 Nicotine dependence, unspecified, uncomplicated
CPT/HCPCS: 71046; 80053; 81001; 83690; 85025; 93005; 94640; 99283; A4216

== ENCOUNTER → 2018-12-07 | Outpatient (CLI) | payer MEDICARE, MEDICAID, SELFPAY ==
[2018-11-25 13:07] VITALS: BMI 20.4
--- NOTE | 2018-12-07 13:45 | MRI_ITS ---
STUDY: MRI LUMBAR SPINE WITHOUT CONTRAST REASON FOR EXAM: Female, 68 years old. Low back pain and left hip pain TECHNIQUE: Standardized fat and water weighted pulse sequences were obtained in the sagittal and axial planes. COMPARISON: None FINDINGS: T12-L1: Normal endplates. Normal disc height, hydration and morphology. Normal bilateral facet joints. Normal central canal and bilateral lateral recesses. Normal bilateral intervertebral neural foramina. Normal lumbar lordosis. There is no substantial scoliosis. Normal conus medullaris that terminates at the L1 level. Nonspecific edema in the bilateral L5 pedicles. Differential includes stress injury and bone bruising. L1-2: Normal endplates. Normal disc height, hydration and morphology. Normal bilateral facet joints. Normal central canal and bilateral lateral recesses. Normal bilateral intervertebral neural foramina. L2-3: Normal endplates. Normal disc height, hydration and morphology. Normal bilateral facet joints. Normal central canal and bilateral lateral recesses. Normal bilateral intervertebral neural foramina. L3-4: Bulging annulus and bilateral facet hypertrophy with moderate bilateral foraminal stenoses. L4-5: Bulging annulus and central disc protrusion with bilateral facet hypertrophy. Mild central canal and moderate bilateral foraminal stenoses. L5-S1: Bulging annulus and bilateral facet hypertrophy with mild central canal and moderate bilateral foraminal stenoses. Normal visualized sacral ala. Normal visualized paraspinous soft tissue structures. Renal cysts. MRI/Spine Lumbar (Routine) IMPRESSION: Multilevel degenerative disease as described. Moderate bilateral foraminal stenoses at the L3-4, L4-5, and L5-S1 levels. Nonspecific edema in the bilateral L5 pedicles. Differential includes stress injury and bone bruising. Electronically Signed: Judd Meadows MD at 14:23 EDT Tel , Service support ,
== END | disposition home or self-care (01) ==
PROVIDERS: Family Provider Internal Medicine; PCP Internal Medicine; Referring Provider Anesthesiology Pain Medicine; Visit Provider Anesthesiology Pain Medicine
DX: M51.37 Other intervertebral disc degeneration, lumbosacral region (principal); M54.17 Radiculopathy, lumbosacral region
CPT/HCPCS: 72148

== ENCOUNTER → 2018-12-20 | Outpatient (CLI) | payer MEDICARE, MEDICAID, SELFPAY ==
[2018-12-10 13:59] VITALS: BMI 20.4
[2018-12-20 16:06] LABS: Anion Gap 9 (5-15); BUN 16 mg/dL (7-18); BUN/Creat Ratio 24.4 RATIO (10-20); Calcium,Total 9.6 mg/dL (8.5-10.1); Chloride 93 mmol/L (98-107); Creatinine, Serum 0.66 mg/dL (0.55-1.02); EST Glomerular Filtration Rate 95 mL/min (>60); Est Glom Filt Rate - Afr Amer 114 mL/min (>60); Glucose 85 mg/dL (74-106); Magnesium 1.6 mg/dL (1.6-2.6); Potassium 3.8 mmol/L (3.5-5.1); Sodium Level 131 mmol/L (136-145); T4 Free Direct 1.14 ng/dL (0.76-1.46); Thyroid Stim Hormone (TSH) 1.63 uIU/mL (0.358-3.74)
== END | disposition home or self-care (01) ==
LOC: MTLAB 14:22
PROVIDERS: Family Provider Internal Medicine; PCP Internal Medicine; Referring Provider Nurse Practitioner Family; Visit Provider Nurse Practitioner Family
DX: J44.9 Chronic obstructive pulmonary disease, unspecified (principal); E03.9 Hypothyroidism, unspecified; E83.42 Hypomagnesemia
CPT/HCPCS: 36415; 80048; 83735; 84439; 84443

== ENCOUNTER → 2018-12-27 | Outpatient (CLI) | payer MEDICARE, MEDICAID, SELFPAY ==
[2018-12-10 13:59] VITALS: BMI 20.4
--- NOTE | 2018-12-27 14:00 | US_ITS ---
STUDY: THYROID ULTRASOUND REASON FOR EXAM: Female, 68 years old. Nodule TECHNIQUE: Ultrasound evaluation of the thyroid was performed with real-time and static castrejon-scale imaging. COMPARISON: None. FINDINGS: RIGHT LOBE: The right lobe of the thyroid gland measures 4.3 x 0.9 x 1.4 cm. There is a homogeneous echotexture. 2 complex cystic nodules are noted measuring 6 x 3 mm with small mural solid nodular component. LEFT LOBE: The left lobe of the thyroid gland measures 3.2 x 1.0 x 1.0 cm. There is a homogeneous echotexture. There is a hypoechoic 2 mm mid thyroid cyst. ISTHMUS: The isthmus measures 3 mm . The regional lymph nodes are normal. US/Thyroid IMPRESSION: Right thyroid complex cystic nodules. Left thyroid cyst. Electronically Signed: Terry Booth DO at 22:40 EDT Tel [phone], Service support ,
== END | disposition home or self-care (01) ==
LOC: US 13:53
PROVIDERS: Family Provider Internal Medicine; PCP Internal Medicine; Referring Provider Nurse Practitioner Family; Visit Provider Nurse Practitioner Family
DX: E04.1 Nontoxic single thyroid nodule (principal)
CPT/HCPCS: 76536

== ENCOUNTER → 2018-12-28 | Outpatient (CLI) | payer MEDICARE, MEDICAID, SELFPAY ==
[2018-12-10 13:59] VITALS: BMI 20.4
== END | disposition home or self-care (01) ==
LOC: OPBD 13:43
PROVIDERS: Family Provider Internal Medicine; PCP Internal Medicine; Referring Provider Nurse Practitioner Family; Visit Provider Nurse Practitioner Family
DX: M81.0 Age-related osteoporosis without current pathological fracture (principal)

== ENCOUNTER → 2019-01-03 | Outpatient (CLI) | payer MEDICARE, MEDICAID, SELFPAY ==
[2018-12-10 13:59] VITALS: BMI 20.4
== END | disposition home or self-care (01) ==
LOC: LABSPEC 16:32
PROVIDERS: Family Provider Internal Medicine; PCP Internal Medicine; Referring Provider Otolaryngology Otolaryngology/Facial Plastic Surgery; Visit Provider Otolaryngology Otolaryngology/Facial Plastic Surgery
DX: J32.9 Chronic sinusitis, unspecified (principal); J02.9 Acute pharyngitis, unspecified
CPT/HCPCS: 87070; 87205

== ENCOUNTER → 2019-01-17 | Outpatient (CLI) | payer MEDICARE, MEDICAID, SELFPAY ==
[2019-01-17 13:59] VITALS: BMI 20.4
[2019-01-17 17:49] LABS: Anion Gap 7 (5-15); BUN 14 mg/dL (7-18); Calcium,Total 9.5 mg/dL (8.5-10.1); Chloride 94 mmol/L (98-107); Creatinine, Serum 0.61 mg/dL (0.55-1.02); EST Glomerular Filtration Rate 103 mL/min (>60); Est Glom Filt Rate - Afr Amer 125 mL/min (>60); Glucose 89 mg/dL (74-106); Potassium 3.7 mmol/L (3.5-5.1); Sodium Level 133 mmol/L (136-145)
== END | disposition home or self-care (01) ==
LOC: MTLAB 15:09
PROVIDERS: Family Provider Internal Medicine; PCP Internal Medicine; Referring Provider Internal Medicine; Visit Provider Internal Medicine
DX: E87.1 Hypo-osmolality and hyponatremia (principal)
CPT/HCPCS: 36415; 80048

== ENCOUNTER → 2019-02-15 | Outpatient (CLI) | payer MEDICARE, MEDICAID, SELFPAY ==
[2019-01-17 13:59] VITALS: BMI 20.4
--- NOTE | 2019-02-15 14:40 | CT_ITS ---
STUDY: LOW DOSE CT LUNG CANCER SCREENING REASON FOR EXAM: Female, 68 years old. Screening RADIATION DOSAGE (If Supplied By Facility): CTDIvol = ( 1.70 ) mGy, DLP = ( 59.98 ) mGycm TECHNIQUE: No contrast was administered. Low dose technique was utilized (average mAS-38 and kVp 120). 1.25 mm axial source images with a slice interval of 1.25-mm were reconstructed in lung windows. 2.5 mm axial source images with a slice interval of 2.5-mm were reconstructed in lung windows. 5.0 mm axial source images with a slice interval of 5.0-mm were reconstructed in soft tissue windows. Nodule measured using lung windows on PACS and/or independent workstation with automated measurement of minimum and maximum diameter. Nodule measurement reported as average diameter rounded to the nearest whole number. Growth is defined as an increase ins size of greater than 1.5 mm. COMPARISON: None. NODULES: Total lung nodules (excluding granulomas): 0 Emphysema: Mild Endobronchial lesion: None Aorta: Normal Coronary arteries: Normal Heart: Normal Pulmonary artery: Normal Mediastinal nodes: Normal Other chest and abdominal findings: None CT/Low Dose CT Lung Screening IMPRESSION: Mild emphysema. No significant pulmonary nodules or masses. L-Rads 1 IMPORTANT NOTES FOR USE: ACR Lung-RADS Version 1.0 Assessment Categories Release Date: December 12, 2013 Category: Coded 0-4 bases on nodule(s) with highest degree of suspicion. Negative screen is defined as categories 1 and 2; a positive screen is defined as categories 3 and 4. Category 3 and 4A nodules that are unchanged on interval CT should be coded as category 2, and individuals returned to screening in 12 months. Category 4X: Category 3 or 4 nodules with additional imaging findings that increase the suspicion of lung cancer, such as spiculation, GGN that doubles in size in 1 year, enlarged lymph notes, etc. Category Modifiers: S (significant finding unrelated to lung cancer) and C (prior history of treated lung cancer) may be added to the 0-4 Lung-RADS Electronically Signed: Alec Ackerman, at 21:46 EDT Tel , Service support ,
== END | disposition home or self-care (01) ==
LOC: CT 14:39
PROVIDERS: Family Provider Internal Medicine; PCP Internal Medicine; Referring Provider Internal Medicine; Visit Provider Internal Medicine
DX: Z87.891 Personal history of nicotine dependence (principal)
CPT/HCPCS: G0297

== ENCOUNTER → 2019-02-16 | Outpatient (CLI) | payer MEDICARE, MEDICAID, SELFPAY ==
[2019-02-15 15:34] VITALS: BMI 20.4
[2019-02-21 12:06] LABS: Alternaria tenuis <0.10 kU/L (Class 0); Ash, White <0.10 kU/L (Class 0); Aspergillus fumigatus <0.10 kU/L (Class 0); Bermuda Grass <0.10 kU/L (Class 0); Birch <0.10 kU/L (Class 0); Black Walnut <0.10 kU/L (Class 0); Cat Hair / Dander,Stand <0.10 kU/L (Class 0); Cedar, Mountain <0.10 kU/L (Class 0); Cladosporium herbarum <0.10 kU/L (Class 0); Cockroach, American <0.10 kU/L (Class 0); Cottonwood <0.10 kU/L (Class 0); D farinae Mite <0.10 kU/L (Class 0); D pteronyssinus <0.10 kU/L (Class 0); Dog Epithelia <0.10 kU/L (Class 0); Elm, American White <0.10 kU/L (Class 0); Immunoglobulin E 348 IU/mL (6-495); Maple/Box Elder <0.10 kU/L (Class 0); Mulberry, White <0.10 kU/L (Class 0); Oak, White <0.10 kU/L (Class 0); Pecan <0.10 kU/L (Class 0); Penicillium Notatum <0.10 kU/L (Class 0); Pigweed, Rough <0.10 kU/L (Class 0); Ragweed, Short/Common <0.10 kU/L (Class 0); Russian Thistle <0.10 kU/L (Class 0); Sheep Sorrel <0.10 kU/L (Class 0); Sycamore, American <0.10 kU/L (Class 0); Timothy Grass <0.10 kU/L (Class 0)
[2019-02-21 12:51] LABS: Mouse Urine <0.10 kU/L (Class 0)
[2019-02-21 20:06] LABS: Chocolate <0.10 kU/L (Class 0); Clam <0.10 kU/L (Class 0); Codfish <0.10 kU/L (Class 0); Corn <0.10 kU/L (Class 0); Egg, White 0.62 kU/L (Class II); Milk (Cow) 0.46 kU/L (Class I); Peanut <0.10 kU/L (Class 0); SCALLOP <0.10 kU/L (Class 0); SESAME SEED <0.10 kU/L (Class 0); Shrimp <0.10 kU/L (Class 0); Soybean <0.10 kU/L (Class 0); Walnut, (Food) <0.10 kU/L (Class 0); Wheat <0.10 kU/L (Class 0)
[2019-02-23 18:14] LABS: Yeast <0.10 kU/L (Class 0)
== END | disposition home or self-care (01) ==
LOC: MTLAB 15:21
PROVIDERS: Family Provider Internal Medicine; PCP Internal Medicine; Referring Provider Otolaryngology Otolaryngology/Facial Plastic Surgery; Visit Provider Otolaryngology Otolaryngology/Facial Plastic Surgery
DX: T78.40XA Allergy, unspecified, initial encounter (principal)
CPT/HCPCS: 36415; 82785; 86003

== ENCOUNTER → 2019-04-12 | Outpatient (CLI) | payer MEDICARE, MEDICAID, SELFPAY ==
[2019-04-12 13:47] VITALS: BMI 21.7
== END | disposition home or self-care (01) ==
PROVIDERS: Family Provider Internal Medicine; PCP Internal Medicine; Referring Provider Nurse Practitioner Acute Care; Visit Provider Nurse Practitioner Acute Care
DX: J32.0 Chronic maxillary sinusitis (principal)
CPT/HCPCS: 87070; 87205; 87633

== ENCOUNTER → 2019-04-19 | Outpatient (CLI) | payer MEDICARE, MEDICAID, SELFPAY ==
[2019-04-19 14:52] VITALS: BMI 21.7
[2019-04-19 18:02] LABS: Anion Gap 5 (5-15); BUN 15 mg/dL (7-18); BUN/Creat Ratio 22.3 RATIO (10-20); Calcium,Total 9.5 mg/dL (8.5-10.1); Chloride 100 mmol/L (98-107); Creatinine, Serum 0.67 mg/dL (0.55-1.02); EST Glomerular Filtration Rate 92 mL/min (>60); Est Glom Filt Rate - Afr Amer 111 mL/min (>60); Glucose 114 mg/dL (74-106); Magnesium 1.7 mg/dL (1.6-2.6); Potassium 4.2 mmol/L (3.5-5.1); Sodium Level 137 mmol/L (136-145); T4 Free Direct 0.83 ng/dL (0.76-1.46); Thyroid Stim Hormone (TSH) 0.57 uIU/mL (0.358-3.74)
== END | disposition home or self-care (01) ==
LOC: MTLAB 16:03
PROVIDERS: Family Provider Internal Medicine; PCP Internal Medicine; Referring Provider Nurse Practitioner Family; Visit Provider Nurse Practitioner Family
DX: R00.2 Palpitations (principal)
CPT/HCPCS: 36415; 80048; 83735; 84439; 84443

== ENCOUNTER → 2019-04-26 14:07 | Outpatient (CLI) | payer MEDICARE, MEDICAID, SELFPAY ==
[2019-04-19 14:52] VITALS: BMI 21.7
== END ==
PROVIDERS: Family Provider Internal Medicine; PCP Internal Medicine; Referring Provider Nurse Practitioner Family; Visit Provider Nurse Practitioner Family
DX: R00.2 Palpitations (principal)
CPT/HCPCS: 93225; 93226

== ENCOUNTER → 2019-06-01 13:33 | Outpatient (CLI) | payer MEDICARE, MEDICAID, SELFPAY ==
[2019-04-12 13:47] VITALS: BMI 21.7
[2019-04-19 14:52] VITALS: BMI 21.7
--- NOTE | 2019-06-01 13:36 | US_ITS ---
STUDY: THYROID ULTRASOUND REASON FOR EXAM: Female, 68 years old. Thyroid nodule TECHNIQUE: Ultrasound evaluation of the thyroid was performed with real-time and static castrejon-scale imaging. COMPARISON: 12/27/2018 FINDINGS: RIGHT LOBE: The right lobe of the thyroid gland measures 4.3 x 1.2 x 1.4 cm. There is a homogeneous echotexture. There is no change in a 3 mm hypoechoic nodule within the right lobe consistent with an adenoma. There is also no change in a 5 mm hypoechoic nodule anteriorly in the right lobe consistent with an adenoma. LEFT LOBE: The left lobe of the thyroid gland measures 3.1 x 1.3 x 1.1 cm. There is a homogeneous echotexture. No change in a 2 mm hypoechoic nodule left lobe consistent with an adenoma. ISTHMUS: The isthmus measures 3 mm thick. . The regional lymph nodes are normal. US/Thyroid IMPRESSION: Essentially normal thyroid ultrasound with normal size and echogenicity with some tiny adenomas. Electronically Signed: Emery Velazquez MD at 15:40 EDT Tel , Service support ,
[2019-06-01 16:26] LABS: Absolute Lymphocyte Count 2.05 X10^3/uL (0.83-4.51); Absolute Neutrophil Count 2.8 X10^3/uL (2.0-7.7); Basophil# 0.06 X10^3/uL; Eosinophil# 0.28 X10^3/uL; Eosinophils% 4.7 % (0-5); Hematocrit 40.6 % (37-47); Hemoglobin 13.3 g/dL (12.0-15.0); Lymphocyte # 2.05 X10^3/ul (4.0); Lymphocyte % 34.6 % (19-41); Mean Corp Hgb Conc 32.8 g/dL (32-36); Mean Corpuscular Hgb 30.8 pg (27.0-32.0); Mean Platelet Vol. 10.6 fl (6.2-12.0); Monocyte# 0.69 X10^3/uL; Monocyte% 11.7 % (0-10); NRBC Flagged by Analyzer 0 % (0-5); Neutrophil # 2.83 X10^3/uL (2.7-7.7); Neutrophil % 47.8 % (47-70); Platelet Count 225 K/mm3 (150-450); RBC Distribution Width CV 13.3 % (11.6-14.6); RBC Distribution Width SD 45.9 fl (35.1-43.9); Red Blood Count 4.32 M/mm3 (4.2-5.4); White Blood Count 5.9 K/mm3 (4.4-11.0)
[2019-06-06 03:06] LABS: Alternaria alternata <0.10 kU/L (Class 0); Aspirgillus flavus Negative (Neg:<1:1); Aspirgillus fumigatus Negative (Neg:<1:1); Aspirgillus niger Negative (Neg:<1:1); Bermuda Grass <0.10 kU/L (Class 0); Bluegrass, Kentucky <0.10 kU/L (Class 0); Cat Hair/Dander, Standard <0.10 kU/L (Class 0); D farinae Mite <0.10 kU/L (Class 0); D pteronyssinus <0.10 kU/L (Class 0); Dog Epithelia <0.10 kU/L (Class 0); Elm, American White <0.10 kU/L (Class 0); Oak, White <0.10 kU/L (Class 0); Plantain, English <0.10 kU/L (Class 0); Ragweed, Short/Common <0.10 kU/L (Class 0)
[2019-06-06 13:12] LABS: Mouse Urine <0.10 kU/L (Class 0)
[2019-06-06 13:13] LABS: Immunoglobulin E 276 IU/mL (6-495)
== END ==
PROVIDERS: Nurse Practitioner Acute Care; Family Provider Internal Medicine; PCP Internal Medicine; Referring Provider Surgery; Visit Provider Surgery
DX: E04.1 Nontoxic single thyroid nodule (principal); J44.9 Chronic obstructive pulmonary disease, unspecified
CPT/HCPCS: 36415; 76536; 82785; 85025; 86003; 86606; 87070; 87205

== ENCOUNTER → 2019-06-07 13:44 | Outpatient (CLI) | payer MEDICARE, MEDICAID, SELFPAY ==
[2019-03-03 13:41] VITALS: BMI 21.7
[2019-06-01 14:30] VITALS: BMI 21.7
--- NOTE | 2019-06-08 09:44 | PFT_ITS ---
INTRODUCTION: The patient is a 68-year-old female that presents for pulmonary function studies secondary to a diagnosis of COPD. Respiratory therapy reports good patient effort. Bronchodilators were used during testing. INTERPRETATION: Forced expiration spirometry demonstrates the presence of a mild large airways obstructive ventilatory defect. There was no significant response to aerosolized bronchodilators. Spirograms are of fair quality and do not plateau indicating slow emptying of the lungs. Body plethysmography was performed and reveals lung volumes to be within normal limits. Diffusing capacity by single breath CO is within normal limits at 79% of predicted. IMPRESSION: Irreversible mild large airways obstructive ventilatory defect with preserved keaton ng volumes and diffusing capacity.
== END ==
PROVIDERS: Family Provider Internal Medicine; PCP Internal Medicine; Referring Provider Internal Medicine Critical Care Medicine; Visit Provider Internal Medicine Critical Care Medicine
DX: J43.2 Centrilobular emphysema (principal)
CPT/HCPCS: 94060; 94726; 94729

== ENCOUNTER → 2019-06-17 12:27 | Outpatient (CLI) | payer MEDICARE, MEDICAID, SELFPAY ==
[2019-03-03 13:41] VITALS: BMI 21.7
[2019-06-01 14:30] VITALS: BMI 21.7
[2019-06-17 13:48] VITALS: PULSE 70; PULSE 78; PULSE 85; PULSE 86; PULSE 88; PULSE 90; PULSE 93; O2SAT 94; O2SAT 95; O2SAT 96; O2SAT 97
--- NOTE | 2019-06-18 06:55 | PCM.PSN.6M ---
PSN 6 Minute Walk Test - 6 Minute Walk Test 6 Minute Walk Test: 6 Minute Walk Test PSN:6-Minute Walk Test Start: 06/17/19 13:47 Freq: Status: Active Protocol: [id number].6MINW Document 06/17/19 13:48 DUANE (Rec: 06/17/19 13:49 DUANE [id number]) 6 Minute Walk Test Date Performed 06/17/19 Time Performed 12:30 Height 5 ft 3 in Weight: 58.06 kg Weight in Pounds 128.[address]: Tomas Umana Assistive device used: None Pre-test Oxygen Delivery Method Room Air Pulse Ox (%) 97 Pulse Rate (60-100 beats/min) 70 Dyspnea Micki Scale (0-10) 0 Exertion Micki Scale (6-20) 6 1st minute Oxygen Delivery Method Room Air Pulse Ox (%) 97 Pulse Rate (60-100 beats/min) 85 2nd minute Oxygen Delivery Method Room Air Pulse Ox (%) 96 Pulse Rate (60-100 beats/min) 86 3rd minute Oxygen Delivery Method Room Air Pulse Ox (%) 94 Pulse Rate (60-100 beats/min) 88 4th minute Oxygen Delivery Method Room Air Pulse Ox (%) 96 Pulse Rate (60-100 beats/min) 88 5th minute Oxygen Delivery Method Room Air Pulse Ox (%) 95 Pulse Rate (60-100 beats/min) 90 6th minute Oxygen Delivery Method Room Air Pulse Ox (%) 96 Pulse Rate (60-100 beats/min) 93 Dyspnea Micki Scale (0-10) 1 Exertion Micki Scale (6-20) 11 Post-test Oxygen Delivery Method Room Air Pulse Ox (%) 96 Pulse Rate (60-100 beats/min) 78 Full Laps Walked 20 Partial Lap, Number of Tiles Walked 39 Total Distance Walked (ft) 1219 - Interpretation Interpretation: The patient was able to ambulate 1219 feet over the course of 6 minutes on room air with no assistive devices or breaks. The patient did not experience any significant desaturation or tachycardia during testing. These findings are consistent with a normal walking oximetry. - Recommendations Recommendations: No supplemental oxygen is indicated at this time.
== END ==
PROVIDERS: Family Provider Internal Medicine; PCP Internal Medicine; Referring Provider Internal Medicine Critical Care Medicine; Visit Provider Internal Medicine Critical Care Medicine
DX: J43.2 Centrilobular emphysema (principal)
CPT/HCPCS: 94618

== ENCOUNTER → 2019-07-07 13:59 | Outpatient (CLI) | payer MEDICARE, MEDICAID, SELFPAY ==
[2019-07-07 13:28] VITALS: BMI 24.4
== END ==
PROVIDERS: Family Provider Internal Medicine; PCP Internal Medicine; Referring Provider Internal Medicine Critical Care Medicine; Visit Provider Internal Medicine Critical Care Medicine
DX: J47.9 Bronchiectasis, uncomplicated (principal)
CPT/HCPCS: 94667

== ENCOUNTER → 2019-07-21 13:18 | Outpatient (CLI) | payer MEDICARE, MEDICAID, SELFPAY ==
[2019-06-23 14:09] VITALS: BMI 21.7
[2019-07-07 13:28] VITALS: BMI 24.4
--- NOTE | 2019-07-21 13:33 | BD_ITS ---
STUDY: DUAL ENERGY X-RAY ABSORPTIOMETRY / DXA REASON FOR EXAM: Female, 68 years old. Early menopause. Loss of height. TECHNIQUE: Bone Mineral Density (BMD) measurements of lumbar spine and right hip were obtained. COMPARISON: None. FINDINGS: Lumbar Spine (L1-L4): g/cm2 (0.755) / T-score (-3.5) / Z-score (-1.8) Findings are suggestive of osteoporosis with a high fracture risk. Right Femur Total: g/cm2 (0.641) / T-score (-2.9) / Z-score (-1.4) Right Femoral Neck: g/cm2 (0.686) / T-score (-2.5) / Z-score (-0.8) BD/Dexa Bone Density Study IMPRESSION: The patient is considered osteoporotic as outlined below according to World Cristopher Organization (WHO) criteria with a high fracture risk. Reference Information: The T-score is the number of standard deviations above or below the standard which is normal for young adults at their peak bone mineral density. The World Health Organization (WHO) interprets the T-scores as follows: Above -1 Normal bone density Between -1 and -2.5 Osteopenia Equal to / or below -2.5 Osteoporosis As a practical clinical guideline, osteopenia may be graded as follows: Mild -1 through -1.5 Moderate -1.6 through -2.0 Severe -2.1 through -2.4 The Z-score is the number of standard deviations above or below age-matched controls. A Z-score of less than -1.5 would be considered abnormal. References: 1. NIH Osteoporosis and Related Bone Diseases http://www.osteo.org 2. International Society for Clinical Densitometry http://www.iscd.org 3. National Osteoporosis Foundation http://www.nof.org Electronically Signed: Nilton Cortes, at 15:24 EST , Service support ,
== END ==
PROVIDERS: Family Provider Internal Medicine; PCP Internal Medicine; Visit Provider Internal Medicine
DX: M81.0 Age-related osteoporosis without current pathological fracture (principal)
CPT/HCPCS: 77080

== ENCOUNTER 2019-08-01 08:33 | Day surgery (SDC) | payer MEDICARE, MEDICAID, SELFPAY ==
[2019-07-07 13:28] VITALS: BMI 24.4
[2019-07-26 15:33] VITALS: BMI 24.0
[2019-08-01] VITALS (7 sets, daily range): BP systolic 118–138; BP diastolic 70–81; PULSE 55–66; RESP 16; TEMP 36.8–37.2; O2SAT 99–100; BMI 24.9
[2019-08-01] MEDS: Lactated Ringers 1,000 ML 100 ML IV (09:43)
--- NOTE | 2019-08-01 10:15 | RAD_ITS ---
PROCEDURE: Ganglion block. DATE OF EXAMINATION: August 01, 2019. INDICATION: Female, 69 years old. Lower back pain. FLUOROSCOPY TIME (if supplied): (12.5 seconds) minutes/seconds. 3 intraoperative views were obtained. Intraoperative imaging provided for presacral ganglion block. RAD/Fluor Guidance for Spine Inj IMPRESSION: Intraoperative imaging provided for presacral ganglion block. Electronically Signed: Nilton Cortes, at 14:25 EST , Service support ,
[2019-08-01] MEDS: Bupivacaine 0.25% 30 ML Vial (10:29)
[2019-08-01] MEDS: MethylPREDNISolone Acetate 80 MG/ML Vial (10:29)
--- NOTE | 2019-08-01 12:48 | OP.PCM_ITS ---
Report of Operation Date of Procedure: 08/01/19 Description of Surgical Findings:: PREOPERATIVE DIAGNOSIS: Coccydynia. POSTOPERATIVE DIAGNOSIS: Coccydynia. PROCEDURE PERFORMED: Inferior hypogastric ganglion steroid injection (ganglion impar steroid injection) under fluoroscopy guidance. ANESTHESIA: MAC. BLOOD LOSS: Minimal. COMPLICATIONS: None. DESCRIPTION OF PROCEDURE: History and physical of today was reviewed. Risks and benefits of the procedure were explained. The patient understood and agreed to proceed. Informed consent was obtained. IV inserted per routine protocol. The patient was taken to the operating room and placed in the prone position with a pillow positioned underneath the abdomen. The lower back and tailbone area was prepped and draped in a sterile fashion using iodine x3. Under fluoro scopy guidance on lateral view, the caudal space was identified. The skin and subcutaneous tissue was anesthetized with approximately 3 mL of 1% lidocaine using a 25-gauge regular needle. Under direct visualization with fluoroscopy on a lateral view, using a 22-gauge 3-1/2-inch spinal needle, the needle was passed through the skin. The tip of the needle was maneuvered and directed towards the sacrococcygeal ligament. The needle was passed through the sacrococcygeal ligament and advanced anterior through the sacrococcygeal membrane anterior to the sacrum. After negative aspiration for blood, a total of 2 mL of contrast was injected to confirm correct placement of the needle as well as anterior spread through the sacrum and coccyx on lateral view. After repeated negative aspiration and confirmation on lateral as well as AP view, a total of 10 mL of preservative-free 0.125% Marcaine with 40 mg of Depo-Medrol was injected. The needle was then removed intact. The patient experienced no sign or symptoms of intrathecal or intravascular injection. The patient experienced no paresthesia. The procedure was completed without any apparent difficulty or any complications. The patient appeared to tolerate it well. ASSESSMENT AND PLAN: This is a 68-year-old female with coccydynia, status post inferior hypogastric (ganglion impar) steroid injection under fluoroscopy guidance. The patient will continue her current medications. The patient will follow up in approximately 2 weeks for reevaluation.
== END 2019-08-01 11:32 | disposition home or self-care (01) ==
LOC: SDC 08:33 → AC 08:36
PROVIDERS: Family Provider Internal Medicine; PCP Internal Medicine; Referring Provider Anesthesiology Pain Medicine; Visit Provider Anesthesiology Pain Medicine
PROC: 3E0T3BZ Introduction of Anesthetic Agent into Peripheral Nerves and Plexi, Percutaneous Approach (ICD-10-PCS; CPT 64999; principal; 2019-08-01 10:05)
DX: M53.3 Sacrococcygeal disorders, not elsewhere classified (principal); M46.1 Sacroiliitis, not elsewhere classified; M48.07 Spinal stenosis, lumbosacral region; M47.27 Other spondylosis with radiculopathy, lumbosacral region; M51.17 Intervertebral disc disorders with radiculopathy, lumbosacral region; M46.96 Unspecified inflammatory spondylopathy, lumbar region; G25.81 Restless legs syndrome; K21.9 Gastro-esophageal reflux disease without esophagitis; M81.0 Age-related osteoporosis without current pathological fracture; E11.40 Type 2 diabetes mellitus with diabetic neuropathy, unspecified; H40.9 Unspecified glaucoma; I10 Essential (primary) hypertension; J43.9 Emphysema, unspecified; F32.9 Major depressive disorder, single episode, unspecified; F41.9 Anxiety disorder, unspecified; E06.9 Thyroiditis, unspecified; I48.91 Unspecified atrial fibrillation; M19.90 Unspecified osteoarthritis, unspecified site; Z78.0 Asymptomatic menopausal state; Z86.2 Personal history of diseases of the blood and blood-forming organs and certain disorders involving the immune mechanism; Z85.828 Personal history of other malignant neoplasm of skin; Z79.82 Long term (current) use of aspirin; Z79.891 Long term (current) use of opiate analgesic; Z79.899 Other long term (current) drug therapy; F17.200 Nicotine dependence, unspecified, uncomplicated
CPT/HCPCS: 01992; 64999; 64483; 72020; 77003; J7120

== ENCOUNTER → 2019-08-09 12:38 | Outpatient (CLI) | payer MEDICARE, MEDICAID, SELFPAY ==
[2019-08-01 09:14] VITALS: BMI 24.9
[2019-08-09 13:46] LABS: AST(SGOT) 30 U/L (15-37); Alanine Aminotransfer ALT/SGPT 47 U/L (13-56); Albumin, Serum 3.8 g/dL (3.2-5.0); Alkaline Phosphatase 60 U/L (45-117); Bilirubin, Direct 0.13 mg/dL (0.00-0.30); Cholesterol 228 mg/dL (200); Globulin 3.7 g/dL (2.2-4.2); High Density Lipoprotein 91 mg/dL; Protein, Total 7.5 g/dL (6.4-8.2); Triglycerides 86 mg/dL; Very Low Density Lipoprotein 17 mg/dL (5-40)
== END ==
PROVIDERS: Family Provider Internal Medicine; PCP Internal Medicine; Referring Provider Internal Medicine Cardiovascular Disease; Visit Provider Internal Medicine Cardiovascular Disease
DX: E78.00 Pure hypercholesterolemia, unspecified (principal)
CPT/HCPCS: 36415; 80061; 80076

== ENCOUNTER → 2019-08-30 13:03 | Outpatient (CLI) | payer MEDICARE, MEDICAID, SELFPAY ==
[2019-08-01 09:14] VITALS: BMI 24.9
--- NOTE | 2019-08-30 13:04 | ECHOD_ITS ---
Reason For Study: AFIB/FLUTTER Procedure This was a 2D Doppler, Color Flow transthoracic echocardiogram. Exam performed in department. Left Ventricle Normal size and thickness. The estimated ejection fraction is 65 %. Stage 1 diastolic dysfunction. No regional wall motion abnormalities noted. Right Ventricle Normal size and thickness. Normal systolic function. Atria Normal left atrium. Normal right atrium. Normal atrial septum. Mitral Valve The mitral valve is structurally normal. No prolapse or stenosis seen. Tricuspid Valve Normal tricuspid valve. Trivial tricuspid valve insufficiency. Right ventricular systolic pressure estimated to be 27 mmHg. Aortic Valve Normal aortic valve. Trisinus/trileaflet aortic valve. Pulmonic Valve Normal pulmonic valve. Great Vessels Normal aortic root. Normal arch. Normal inferior vena cava. Inferior vena cava collapse with sniff. Pericardium/Pleural No pericardial effusion. MMode/2D Measurements & Calculations LVIDd: 3.9 cm IVSd: 0.92 cm Ao root diam: 3.0 cm LVIDs: 2.5 cm LVPWd: 0.88 cm RVDd: 3.2 cm FS: 35.5 % LAV(MOD-bp): 39.2 ml LA A4 area: 11.7 cm2 LA dimension(2D): 2.7 cm LAV(MOD-bp) Indexed: 24.0 ml/m2 LAV(MOD-sp2): 35.3 ml LAV(MOD-sp4): 29.3 ml RA A4 area: 9.6 cm2 Time Measurements MV dec time: 0.17 sec Doppler Measurements & Calculations MV E max elmer: 105.8 cm/sec Lat Peak E' Elmer: 8.9 cm/sec Med Peak E' Elmer: 9.7 cm/sec MV A max elmer: 116.6 cm/sec E/E' lat: 11.8 E/E' med: 10.9 MV E/A: 0.91 Ao V2 max: 124.4 cm/sec LV V1 max: 94.8 cm/sec PA V2 max: 84.4 cm/sec Ao max P.2 mmHg LV V1 max P.6 mmHg TR max elmer: 228.3 cm/sec TR max P.9 mmHg Interpretation Summary The estimated ejection fraction is 65 %. Stage 1 diastolic dysfunction. Trivial tricuspid valve insufficiency. Right ventricular systolic pressure estimated to be 27 mmHg. There is no comparison study available. Ordering Physician: Isiah Joshi Referring Physician: Panda Kirkland Performed By: Ailin Chi RDCS, RVT
--- NOTE | 2019-08-30 13:06 | CT_ITS ---
STUDY: CT MAXILLOFACIAL SINUSES REASON FOR EXAM: Female, 69 years old. Sinusitis, left ear pain, sinus surgery with ethmoidectomy 2018. [employer] protocol. RADIATION DOSAGE (If Supplied By Facility): CTDIvol = ( 33.06 ) mGy, DLP = ( 846.25 ) mGycm TECHNIQUE: The patient was scanned in a multi detector CT scanner. High resolution axial imaging was performed without the administration of intravenous contrast material. Sagittal and coronal images were reconstructed. Individualized dose optimization techniques were used for this CT. COMPARISON: None. FINDINGS: FRONTAL SINUSES: Partial opacification of the frontal sinuses with mucosal thickening. ETHMOIDAL SINUSES: Partial opacification of the bilateral ethmoidal sinuses MAXILLARY SINUSES: Status post surgical changes at the level of the bilateral maxillary sinuses medial wall antrectomy and partial ethmoidectomy. Otherwise normal aeration, without mucosal inflammatory disease. SPHENOIDAL SINUSES: Mild air-fluid level within the sphenoid sinus. Postsurgical changes of the bilateral maxillary infundibuli otherwise patent . Normal bilateral middle turbinates. Normal bilateral inferior turbinates. Normal midline nasal septum. There is patency of the bilateral nasal airways. The visualized osseous structures are normal. The visualized bilateral orbital contents are normal. Bilateral middle ear structures and mastoids are clear. CT/Sinus/Facial Bone IMPRESSION: Clear bilateral maxillary sinuses. Status post operative changes through the bilateral maxillary sinuses. Sequela of sinusitis involving the remainder of the paranasal sinuses. Electronically Signed: Sadia Nova MD at 2:02 EST , Service support ,
== END ==
PROVIDERS: Family Provider Internal Medicine; PCP Internal Medicine; Referring Provider Otolaryngology; Visit Provider Otolaryngology
DX: J32.9 Chronic sinusitis, unspecified (principal); I48.0 Paroxysmal atrial fibrillation; I10 Essential (primary) hypertension
CPT/HCPCS: 70486; 93306

== ENCOUNTER → 2019-09-09 13:19 | Outpatient (CLI) | payer MEDICARE, MEDICAID, SELFPAY ==
[2019-07-26 15:33] VITALS: BMI 24.0
[2019-08-01 09:14] VITALS: BMI 24.9
--- NOTE | 2019-09-09 13:21 | STEWCON_ITS ---
Reason For Study: Atrial Fibrillation Stress Results Protocol: Dobutamine Stress Echo With Definity Maximum Predicted HR: 149 bpm Target HR: 127 bpm % Maximum Predicted HR: 95 % DurationHeart Rate Stage (mm:ss) (bpm) BP Comment Baseline 64 146/90No Chest Pain; 5 ML Diluted Definity Given DSE 10 MCG 3:38 67 137/78No Chest Pain DSE 20 MCG 3:00 87 128/80No Chest Pain DSE 30 MCG 3:00 100 149/61No Chest Pain DSE 40 MCG 2:03 141 134/65No Chest Pain; Atropine 0.25 MG IVP Recovery 99 117/68No Chest Pain Stress Duration: 11:41 mm:ss Maximum Stress HR: 141 bpm METS: 1 Baseline Echocardiogram Findings The estimated ejection fraction is 65 %. Stress Echo Wall motion Data Resting WM Intermediate WM Stress WM Resting Wall Motion Wall Motion Stress No regional wall motion No regional wall motion abnormalities noted. abnormalities noted. EKG Data The baseline ECG displays normal sinus rhythm. The patient was titrated from 10 mcg to a maximum of 40 mcg of dobutamine during the stress. The maximum heart rate attained was 142 beats per minute. This was 95% of maximum predicted heart rate. During dobutamine infusion, there were no ST or T wave changes noted to suggest ischemia. No clinical angina was noted. Interpretation Summary The estimated ejection fraction is 65 %. Normal, adequate, dobutamine echocardiogram. Negative for ischemia by EKG and echocardiographic criteria. No anginal symptoms noted. Rare PACs noted. Final LVEF is 75%. Decreased sensitivity due to poor echo windows requiring Definity agent. Patient tolerated the procedure well. No complications. The study was technically difficult. Contrast injection was performed. Ordering Physician: Isiah Joshi Referring Physician: Isiah Joshi Performed By: Do Perez, YAIMA, RVT
== END ==
PROVIDERS: Family Provider Internal Medicine; PCP Internal Medicine; Referring Provider Internal Medicine Cardiovascular Disease; Visit Provider Internal Medicine Cardiovascular Disease
DX: R07.9 Chest pain, unspecified (principal); I48.0 Paroxysmal atrial fibrillation; I10 Essential (primary) hypertension
CPT/HCPCS: 93017; 93350; J7040; Q9957; A4216; C8928

== ENCOUNTER → 2020-01-16 15:14 | Outpatient (CLI) | payer MEDICARE, MEDICAID, SELFPAY ==
[2019-11-29 08:54] VITALS: BMI 24.9
[2020-01-16 16:48] LABS: Hematocrit 40.8 % (37-47); Hemoglobin 13.2 g/dL (12.0-15.0); Mean Corp Hgb Conc 32.4 g/dL (32-36); Mean Corpuscular Hgb 30.3 pg (27.0-32.0); Mean Corpuscular Volume 93.8 fL (81-99); Platelet Count 216 K/mm3 (150-450); RBC Distribution Width CV 12.8 % (11.6-14.6); RBC Distribution Width SD 44.9 fl (35.1-43.9); Red Blood Count 4.35 M/mm3 (4.2-5.4); White Blood Count 5.3 K/mm3 (4.4-11.0)
[2020-01-17 08:54] LABS: Eosinophil 5 % (0-5); Lymphocyte 35 % (19-41); Monocyte 11 % (0-10); Neutrophil-Segmented 49 % (47-70); Platelet Estimate ADEQUATE (ADEQ); Total Cells Counted 100 (MANUAL DIFF)
[2020-01-17 08:55] LABS: Differential Indicated MANUAL DIFF; Red Cell Morphology NORM C+C NORMAL (NORM C&C)
[2020-01-17 08:56] LABS: Absolute Lymphocyte Count 1.86 X10^3/uL (0.83-4.51); Absolute Neutrophil Count 2.6 X10^3/uL (2.0-7.7)
[2020-01-18 17:16] LABS: ANTINUCLEAR ANTIBODIES DIRECT Negative (Negative)
== END ==
PROVIDERS: PCP Internal Medicine; Visit Provider Nurse Practitioner Acute Care
DX: I48.0 Paroxysmal atrial fibrillation (principal); J45.909 Unspecified asthma, uncomplicated
CPT/HCPCS: 36415; 85025; 86038; 86225; 86235; 86256

== ENCOUNTER → 2020-05-10 | Outpatient (CLI) | payer MEDICARE, MEDICAID, SELFPAY ==
[2020-05-09 14:25] VITALS: BMI 24.9
== END | disposition home or self-care (01) ==
LOC: LABSPEC 15:29
PROVIDERS: PCP Internal Medicine; Referring Provider Internal Medicine Critical Care Medicine; Visit Provider Internal Medicine Critical Care Medicine
DX: J47.9 Bronchiectasis, uncomplicated (principal)
CPT/HCPCS: 87070; 87205

== ENCOUNTER → 2020-06-08 | Outpatient (CLI) | payer MEDICARE, MEDICAID, SELFPAY ==
[2020-05-09 14:25] VITALS: BMI 24.9
== END | disposition home or self-care (01) ==
LOC: LABSPEC 15:06
PROVIDERS: PCP Internal Medicine; Visit Provider Otolaryngology
DX: J32.9 Chronic sinusitis, unspecified (principal)
CPT/HCPCS: 87070; 87077; 87107; 87205

== ENCOUNTER 2020-07-05 13:56 | Outpatient (RCR) | payer MEDICARE, MEDICAID, SELFPAY ==
[2020-05-09 14:25] VITALS: BMI 24.9
[2020-06-20 13:40] VITALS: BMI 28.7
--- NOTE | 2020-07-07 08:45 | HP.OTEVAL_ITS ---
Patient's Visit Information JOVON CISNEROS is a 69 year old F, referred to Occupational Therapy by Dr. Harpal Gonzalez MD, with a diagnosis of left hand stiffness, right MF trigger finger. Date of Evaluation: 07/05/20 Occupational Therapist: Hannah Sanchez, OTR/L, CHT - Subjective This 69 year old female was seen for OT eval with dx of right MF trigger finger and left hand stiffness. Pt order was sent on 05/17/20 but pt rescheduled apt 4x. pt states at apt on 05/17/20, Dr. Gonzalez did right MF cortisone shot and recomended OT. Today pt states PIP of right MF get sore from time to time but not catching. 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 pt demo with extensor tendons rolling off MCP on left. right hand demo full composite fist with MCP joit ligament instability - Strength Strength Comments: defered due to OA deformities. pt reports no deficits with hand use for ADLs. pt has made modifications with opeing jars but this would be expected for pts age and. bilateral hand deformities - Quick DASH-Disab of Arm,Shoulder& Hand Quick DASH Score: 36.6650 - Goals Goal:: Pt will demo understanding of work/lifting and carry ergonomics to decrease stress on tendons to increase pts ind. with ADLs and IADLS and work tasks by d/c. pt will demo understanding of joint protection laila. and ad.eq. use to decrease stress on bilateral hand joints and tendons to decrease joint deformity by d/c. Goal:: pt will demo understanding on ulnar drift brace/orthosis to decrease extensor tendon from slipping over MCP by d/c - Rehabilitation General Assessment: This 69 year old female demo with left MCP ulnar deviations- therapist noted pts extensor tendon snaps ulnar on MF,RF with MCP flex. pts LF extensor tendon therapist noted it pulled radial at times and ulnar another time. This mechanical issue limits pts ease of PIP flexion of RF and LF until pts extensor tendon pulls completely off MCP and then allows for PIP flexion. Therapist was able to stabilize all three extensor tendons while pt was performing flexion of digits - pt demo smother glide of flexion and pt reported no stiffness. therapist advised pt in ulnar deviation braces and showed pt several different styles but pt declined and stated she would not use them. Therapist gave joint protection handout- ed. pt to return to Dr. Gonzalez for further eval. pt states she will review information on joint protection and return if needed clarification of information. Rehabilitation Potential: Questionable - Anticipated Interventions Orthoses, Joint Protection/Energy Conservation, Ergonomic Education, Fine Motor Coord/[place]ard, Education re assistive Equipment - Visit Plan Frequency: Every Other Week Duration: 3 Weeks TEXT: Thank you for the opportunity to evaluate your patient. For Medicare and Medicare HMO plans, please review the plan of care and approve it. It will need to be FAXED BACK to us at [phone] for Medicare purposes. Please let me know if there are questions or concerns regarding this plan of care. Physician Signature: Date:
== END 2020-07-05 19:00 | disposition home or self-care (01) ==
LOC: OT 13:56
PROVIDERS: PCP Internal Medicine; Referring Provider Specialist; Visit Provider Specialist
DX: M25.642 Stiffness of left hand, not elsewhere classified (principal); M65.331 Trigger finger, right middle finger
CPT/HCPCS: 97166

== ENCOUNTER → 2020-09-12 13:48 | Outpatient (CLI) | payer MEDICARE, MEDICAID, SELFPAY ==
[2020-07-18 13:30] VITALS: BMI 28.8
--- NOTE | 2020-09-12 15:37 | NEURO_ITS ---
NCS and/or EMG Patient Report Ordering Doctor: Alec Salazar DATE OF SERVICE: 09/12/20 Cynthia Kam is a 70-year-old female who presents for electrodiagnostic testing of the upper limbs. She complains of a zapping pain in the left armpit radiating to the left hand. She reports numbness and tingling in both arms and fingers. She has a history of carpal tunnel release in 2002 and 2003. She has ongoing neck pain. Electrodiagnostic findings: The left median motor nerve demonstrates normal distal latency with reduced amplitude and reduced conduction velocity. Right median motor nerve demonstrates normal distal latency, amplitude and conduction velocity. Ulnar motor response is normal bilaterally. Prolonged left median F- wave. Prolonged median sensory latency at the wrist bilaterally. Normal radial and ulnar sensory responses. On needle EMG, all muscles tested in the upper limb showed no evidence of dene rvation with normal motor unit action potentials. Electrodiagnostic impression: This is an abnormal study in the upper limbs 1. Electrodiagnostic findings demonstrate bilateral median mononeuropathy. This is consistent with a mild right carpal tunnel syndrome and a moderate left carpal tunnel syndrome. 2. There is no electrodiagnostic evidence for cervical radiculopathy. If there are any further questions, please do not hesitate to contact me
== END ==
PROVIDERS: PCP Internal Medicine; Referring Provider Orthopaedic Surgery; Visit Provider Orthopaedic Surgery
DX: M47.22 Other spondylosis with radiculopathy, cervical region (principal)
CPT/HCPCS: 95886; 95912

== ENCOUNTER → 2020-09-27 15:41 | Outpatient (CLI) | payer MEDICARE, MEDICAID, SELFPAY ==
[2020-09-27 14:15] VITALS: BMI 28.8
[2020-09-27 16:34] LABS: Absolute Lymphocyte Count 1.63 X10^3/uL (0.83-4.51); Absolute Neutrophil Count 2.8 X10^3/uL (2.0-7.7); Basophil# 0.04 X10^3/uL; Basophil% 0.8 % (0-1); Eosinophil# 0.04 X10^3/uL; Eosinophils% 0.8 % (0-5); Hematocrit 42.5 % (37-47); Lymphocyte # 1.63 X10^3/ul (4.0); Lymphocyte % 31.5 % (19-41); Mean Corp Hgb Conc 32.9 g/dL (32-36); Mean Corpuscular Hgb 30.6 pg (27.0-32.0); Mean Corpuscular Volume 92.8 fL (81-99); Mean Platelet Vol. 10.7 fl (6.2-12.0); Monocyte# 0.64 X10^3/uL; Monocyte% 12.4 % (0-10); NRBC Flagged by Analyzer 0 % (0-5); Neutrophil % 54.1 % (47-70); Platelet Count 252 K/mm3 (150-450); RBC Distribution Width CV 13.1 % (11.6-14.6); RBC Distribution Width SD 44.6 fl (35.1-43.9); Red Blood Count 4.58 M/mm3 (4.2-5.4); White Blood Count 5.2 K/mm3 (4.4-11.0)
[2020-09-27 16:49] LABS: Vitamin D,25 Hydroxy 40.3 ng/mL
[2020-09-27 16:52] LABS: Hemoglobin A1c 5.9 % (3.8-5.6)
[2020-09-27 16:59] LABS: AST(SGOT) 27 U/L (15-37); Alanine Aminotransfer ALT/SGPT 42 U/L (13-56); Albumin, Serum 3.9 g/dL (3.2-5.0); Alkaline Phosphatase 86 U/L (45-117); Anion Gap 4 (5-15); BUN 21 mg/dL (7-18); BUN/Creat Ratio 23.5 RATIO (10-20); Calcium,Total 9.6 mg/dL (8.5-10.1); Chloride 98 mmol/L (98-107); Cholesterol 244 mg/dL (200); Creatinine, Serum 0.89 mg/dL (0.55-1.02); EST Glomerular Filtration Rate 66 mL/min (>60); Est Glom Filt Rate - Afr Amer 80 mL/min (>60); Globulin 3.9 g/dL (2.2-4.2); Glucose 94 mg/dL (74-106); High Density Lipoprotein 96 mg/dL; Magnesium 1.8 mg/dL (1.6-2.6); Protein, Total 7.8 g/dL (6.4-8.2); Sodium Level 134 mmol/L (136-145); Thyroid Stim Hormone (TSH) 1.63 uIU/mL (0.358-3.74); Triglycerides 129 mg/dL; Very Low Density Lipoprotein 26 mg/dL (5-40)
== END ==
PROVIDERS: PCP Internal Medicine; Referring Provider Internal Medicine; Visit Provider Internal Medicine
DX: I10 Essential (primary) hypertension (principal); M81.0 Age-related osteoporosis without current pathological fracture; I48.0 Paroxysmal atrial fibrillation; E11.9 Type 2 diabetes mellitus without complications; E03.9 Hypothyroidism, unspecified; E78.5 Hyperlipidemia, unspecified
CPT/HCPCS: 36415; 80053; 80061; 82306; 83036; 83735; 84443; 85025

== ENCOUNTER → 2020-10-30 13:08 | Outpatient (CLI) | payer MEDICARE, MEDICAID, SELFPAY ==
[2020-05-09 14:25] VITALS: BMI 24.9
[2020-09-27 14:15] VITALS: BMI 28.8
--- NOTE | 2020-10-30 15:02 | PFTCOMP ---
COMPLETE PULMONARY FUNCTION TEST INTERPRETATION Brief HPI: Patient is a 70 year old female, currently under the care of myself, who presents to [facility] for complete pulmonary function tests secondary to diagnosis of bronchiectasis. Respiratory therapist reports good effort and reproducible results. Interpretation: Forced expiration spirometry shows a mild large airways obstructive ventilatory defect with an FEV1 of 77% predicted. There is no significant bronchodilator response by strict ATS criteria. Spirograms are of good quality and plateau slowly, indicating slowly emptying areas of the lungs. The respiratory flow volume loop shows decreased expiratory flow rates at all lung volumes consistent with airway obstruction. Lung volumes by body plethysmography show a normal total lung capacity at 5.17 L, 113% predicted. All other lung volumes are within normal limits. Diffusion capacity by carbon monoxide is normal at 93% predicted. The airway resistance is slightly elevated. Compared to previous pulmonary function tests from 06/07/2019, there is been a significant improvement in DLCO by 35%. Impression: Irreversible mild large airways obstructive ventilatory defect with normalization of DLCO compared to previous testing.
== END ==
PROVIDERS: PCP Internal Medicine; Referring Provider Internal Medicine Critical Care Medicine; Visit Provider Internal Medicine Critical Care Medicine
DX: J47.9 Bronchiectasis, uncomplicated (principal)
CPT/HCPCS: 94060; 94726; 94729

== ENCOUNTER 2021-01-12 12:28 | Emergency (ER) | payer MEDICARE, MEDICAID, SELFPAY ==
[2020-11-14 12:48] VITALS: BMI 30.5
[2021-01-12 12:29] VITALS: BP 158/87; PULSE 72; RESP 16; TEMP 36.6; BMI 27.4
--- NOTE | 2021-01-12 12:44 | VDLE_ITS ---
Reason For Study: Swelling Procedure LEFT Exam performed portable in ED. GSV is normal. This is a venous duplex using B-mode, color CFV is compressible, spontaneous, phasic, flow and spectral Doppler. competent, and demonstrates normal A preliminary report was called and/or faxed augmentation. to Dr. Stringer. FV is compressible, spontaneous, phasic, competent and demonstrates normal augmentation. POP V is compressible, spontaneous, phasic, competent and demonstrates normal augmentation. T/P Trunk is compressible. PTV is compressible. LT PerV is compressible. Hypoechoic, non vascular structure noted Lt Pop Fossa measuring 4.47cm x 1.69cm. VL/Venous Duplex US, Unilateral Interpretation Summary There is no evidence of left lower extremity deep vein thrombosis. Left great s aphenous vein appears patent and compressible segmentally. Hypoechoic nonvascular structure left popl iteal fossa measuring 4.47 x 1.69 cm consistent with a Chowdhury's cyst. Clinical correlation would be ap propriate. Ordering Physician: Jolly Stringer Referring Physician: Lashell Larsen Performed By: Do Perez, YAIMA, RVT
--- NOTE | 2021-01-12 12:49 | EDS_ITS ---
HPI History of Present Illness Chief Complaint: Lower Extremity Injury Detail of Chief Complaint: Left leg swelling for 3 days Informant: patient Narrative Narrative: Patient with history of chronic ankle pain. Patient states that she has had increased swelling to the lower leg for the last 3 days. She denies any trauma to her leg. She denies chest pain or shortness of breath. She does have history of rheumatoid arthritis and pseudogout. She has never had discomfort like this before. She describes a burning sensation in her leg. [facility] Medical History (Updated 01/12/21 @ 14:[address] Jolly Stringer, ) Abnormal bruising Anemia Arthritis Asthma Back problem Bleeding disorder Cancer Chronic bronchitis Chronic headaches DDD (degenerative disc disease), lumbar Depression Diabetes mellitus type II, controlled Emphysema lung Essential hypertension Fatigue Fibromyalgia GERD (gastroesophageal reflux disease) Glaucoma Hay fever Hemorrhoids Hx of squamous cell carcinoma Hyperlipidemia Hypothyroid Left renal mass Neuropathy Osteopenia Osteoporosis Palpitations Paroxysmal atrial fibrillation Rosacea Seasonal allergies Shoulder pain Skin cancer Vitamin deficiency Home Medications magnesium oxide 1,000 mg PO QHS 07/29/19 [History Last Taken Unknown] budesonide 0.5 mg/2 mL suspension for nebulization 0.5 mg INHALATION BID #180 ml 11/29/19 [Rx Last Taken Unknown] hydroxychloroquine 200 mg tablet 200 mg PO DAILY 05/09/20 [History Last Taken Unknown] euflexa gel NOT APPLICABLE 05/22/20 [History Last Taken Unknown] folic acid 20 mg capsule 20 mg PO DAILY 05/22/20 [History Last Taken Unknown] ivermectin 1 % topical cream 1 applic TOPICAL DAILY 05/22/20 [History Last Taken Unknown] mepolizumab 100 mg/mL subcutaneous auto-injector mg SC 05/22/20 [History Last Taken Unknown] valerian root 450 mg capsule mg PO 05/22/20 [History Last Taken Unknown] lansoprazole 30 mg capsule,delayed release 30 mg PO DAILY #90 cap 06/05/20 [Rx Last Taken Unknown] digestive enzymes 1 cap PO TID cap 06/29/20 [History Last Taken Unknown] digestive enzymes 1 cap PO TID #270 cap 06/29/20 [Rx Last Taken Unknown] furosemide 20 mg tablet 20 mg PO DAILY #90 tab 07/23/20 [Rx Last Taken Unknown] denosumab 60 mg/mL subcutaneous syringe 60 mg SC [id number] #1 ml 07/25/20 [Rx Last Taken Unknown] atenolol 50 mg tablet 50 mg PO BID #180 tab 08/27/20 [Rx Last Taken Unknown] omega-3 fatty acids-fish oil 360 mg-1,200 mg capsule 1 cap PO TID #270 cap 09/05/20 [Rx Last Taken Unknown] nabumetone 500 mg tablet 500 mg PO BID PRN #60 tab 09/14/20 [Rx Last Taken Unknown] guaifenesin 1,200 mg tablet, extended release 12 hr 1,200 mg PO BID PRN #60 tab 09/25/20 [Rx Last Taken Unknown] acetaminophen 325 mg tablet 650 mg PO ONCE PRN tab 09/27/20 [History Last Taken Unknown] cetirizine 10 mg capsule PO PRN 09/27/20 [History Last Taken Unknown] diclofenac sodium 1 % topical gel 2 g TOPICAL ONCE PRN 09/27/20 [History Last Taken Unknown] glycopyrrolate 9 mcg-formoterol 4.8 mcg HFA aerosol inhaler 2 puff INHALATION QAM AND QPM 90 Days #10.7 g 09/27/20 [Rx Last Taken Unknown] metaxalone 800 mg tablet 800 mg PO TID PRN #60 tab 09/27/20 [Rx Last Taken Unknown] cholecalciferol (vitamin D3) 50 mcg (2,000 unit) capsule See Rx Instructions .ROUTE .COMPLEX #180 cap 10/25/20 [Rx Last Taken Unknown] albuterol sulfate 2.5 mg INHALATION Q8H PRN 90 Days #180 ml 11/12/20 [Rx Last Taken Unknown] calcium citrate 200 mg (950 mg) tablet 200 mg PO TID #270 tab 12/04/20 [Rx Last Taken Unknown] levothyroxine 75 mcg tablet See Rx Instructions .ROUTE .COMPLEX #90 tab 12/17/20 [Rx Last Taken Unknown] multivitamin,fk-sxhd-jrcxarkc 27 mg-0.4 mg tablet tab PO DAILY tab 12/17/20 [History Last Taken Unknown] pilocarpine HCl 5 mg tablet 5 mg PO TID 90 Days #270 tab 12/24/20 [Rx Last Taken Unknown] fluticasone propionate 50 mcg/actuation nasal spray,suspension 2 spray INTRANASAL QDAY 90 Days #54.6 g 01/03/21 [Rx Last Taken Unknown] mirtazapine 30 mg tablet 30 mg PO QHS #90 tab 01/07/21 [Rx Last Taken Unknown] mirtazapine 7.5 mg tablet 7.5 mg PO QHS #90 tab 01/07/21 [Rx Last Taken Unknown] hydrocodone-acetaminophen 1 tab PO Q4H PRN PRN 2 Days #10 tablet 01/12/21 [Rx Last Taken Unknown] Allergy/AdvReac Type Severity Reaction Status Date / Time benztropine [From Cogentin] Allergy Severe hallucinati Verified 01/12/21 13:00 ons levofloxacin [From Levaquin] Allergy Severe Stomach Verified 01/12/21 13:00 pain lithium Allergy Severe Nausea/Vom/ Verified 01/12/21 13:00 Diarrhea niacin Allergy Severe Rash Verified 01/12/21 13:00 Penicillins Allergy Severe Hives Verified 01/12/21 13:00 soybean Allergy Intermediate Rash Verified 01/12/21 13:00 Sulfa (Sulfonamide Allergy Intermediate Hives Verified 01/12/21 13:00 Antibiotics) trazodone Allergy Intermediate breathing Verified 01/12/21 13:00 problems sulfamethoxazole Allergy Unknown Verified 01/12/21 13:00 [From Bactrim] trimethoprim [From Bactrim] Allergy Unknown Verified 01/12/21 13:00 candesartan AdvReac Intermediate Palpitations Verified 01/12/21 13:00 and depression hydrochlorothiazide AdvReac Intermediate Palpitations Verified 01/12/21 13:00 and depression cephalexin [From Keflex] AdvReac yeast Verified 01/12/21 13:00 indection Family History Father Asthma Heart disease High cholesterol Respiratory disease Multiple allergies Mother Anxiety Arthritis Bowel disease Colon cancer Myocardial infarction Hypertension Surgical History History of carpal tunnel surgery History of cataract removal with insertion of prosthetic lens History of closure of ileostomy History of ethmoidectomy History of ileostomy History of intestinal surgery History of orthopedic surgery History of rotator cuff surgery History of sinus surgery History of tonsillectomy History of total hysterectomy hx of finger surgery hx of muscle biopsy sinuplasty Status post LASIK surgery of both eyes Social History Smoking Status: Light Smoker (<10/day) Tobacco: How many years used: 38 second hand exposure: Yes alcohol intake: never substance use type: does not use what type of physical activity do you participate in: walking ROS ROS ED Constitutional Constitutional ED: Reports systems reviewed and no addt'l complaints, except as documented; Denies body ache(s), change in weight or chills Eyes Eyes: Denies acute decrease in peripheral vision, change in vision, double vision or loss of vision ENT ENT ED: Reports none; Denies ear pain, lip swelling, loss taste/smell, neck pain, otalgia or sore throat Cardiovascular Cardiovascular: Reports none; Denies abdominal pain, chest pain with activity, leg edema, lightheadedness, palpitations, rapid heart rate or syncope Respiratory/Chest Respiratory/Chest: Reports none; Denies change in mental status, dry cough, dyspnea, hemoptysis, shortness of breath at rest or shortness of breath with exertion Gastrointestinal Gastrointestinal: Reports none; Denies abdominal pain, change in stool character, diarrhea, hematemesis, hematochezia, melena, rectal bleeding or vomiting Genitourinary Genitourinary ED: Reports none; Denies abdominal discomfort, anuria, dysuria, genital pain or polyuria Musculoskeletal Musculoskeletal: Reports none and other Details: Left leg swelling and left ankle pain ; Denies arthralgias, back pain, difficulty walking, extremity pain, muscle weakness or myalgias Integumentary Reports none; Denies abscess or rash Neurologic Neurologic: Reports none; Denies abnormal gait, confusion, focal weakness, frequent falls, headache(s), loss of vision, numbness, paresthesias, radicular pain, vertigo or weakness Psychiatric Psychiatric: Reports systems reviewed and no addt'l complaints, except as documented and none; Denies behavioral changes, confusion, difficulty concentrating, hallucinations, suicidal ideation, tactile hallucinations or visual hallucinations Endocrine Endocrinology: Denies none, cold intolerance, excessive sweating, fatigue or heat intolerance Hematologic/Lymphatic Hematologic/Lymphatic: Reports none; Denies anemia, easy bleeding or easy bruising Allergic/Immunologic Allergic/Immunologic ED: Denies as per HPI, none, lip swelling, mouth swelling, throat swelling, tongue swelling or hives EXAM Physical Exam Const Vital Signs: 01/12/21 12:29 Temperature 97.9 F Temperature Source Temporal Pulse Rate 72 Respiratory Rate 16 Blood Pressure 158/87 H Blood Pressure Mean 110 Positive well nourished and well developed General Appearance ED: well developed and NAD HEENT Reports TM's clear and moist mucous membranes normocephalic and atraumatic; Negative for trauma or tenderness Tympanic Membrane ED: Yes TM's clear Eyes PERRL and EOMs intact bilaterally General Eye ED: Negative for pale conjunctiva or scleral icterus Neck no lymphadenopathy, supple and no JVD General: Negative for tenderness Chest Wall inspection of chest normal and palpation of chest normal Chest: Negative for tenderness Resp normal respiratory effort and clear to auscultation bilaterally Effort and Inspection: Negative for respiratory distress or pain with movement Auscultation: Negative for rhonchi, wheezes or diminished lung sounds Cardio regular rate, regular rhythm, S1 normal heart sound, S2 normal heart sound and no murmurs Peripheral Pulses: pulses 2+ throughout GI normal to inspection, nondistended, normoactive bowel sounds, soft to palpation, non-tender, non-distended and no masses Back/Spine no CVA tenderness and no thoracic nor lumbar tenderness Extremity Extremity Narrative: Left ankle-patient has diffuse tenderness about the ankle joint. She has got some subtle edema to the left lower extremity and tenderness to the calf. She had a positive Homans' sign. Normal pulses. General Extremety ED: Negative for edema General Extremity: Negative for edema Neuro oriented x3, CN's II-XII intact bilaterally, no sensory deficits noted and gait normal Sensorium / Orientation: awake, alert, oriented to person, oriented to place and oriented to time Motor Exam: strength 5/5 throughout and strength abnormal Psych mental status grossly normal Skin no rashes or lesions noted and no wounds MDM MDM MDM Narrative Medical decision making narrative: Patient with chronic pain in her left ankle since June 2020. Patient states that she had a lumbar block that resolved the pain initially by Dr. Salazar. Patient states 8 days later the pain came back. The reason she is here today she is had swelling for the last 3 days to the left lower extremity. Her venous Doppler was negative for DVT. There is no erythema or warmth to the ankle joint noted. She does have history of pseudogout. At this point I suspect possibility of pseudogout as the etiology of her pain. Patient already on Plaquenil. I will start her on Reynolds for pain. She is advised to follow-up with rheumatology and her pain management doctor. Discharge Plan Triage Chief Complaint: Lower Extremity Injury ED Provider: Jolly Stringer Dx/Rx/DC Orders Clinical Impression: Chronic pain of left ankle, Left leg swelling Instructions: ED Pain, Acute, Uncertain Cause, ED Peripheral Edema, Unilateral Prescriptions: New hydrocodone-acetaminophen [hydrocodone-acetaminophen] 1 TABLET tablet 1 tab PO Q4H PRN PRN (Reason: Pain) 2 Days Qty: 10 RF: 0 No Action budesonide 0.5 mg/2 mL suspension for nebulization 0.5 mg INHALATION BID Qty: 180 RF: 6 hydroxychloroquine [Plaquenil] 200 mg tablet 200 mg PO DAILY RF: 0 ivermectin [Soolantra] 1 % cream 1 applic TOPICAL DAILY RF: 0 valerian root 450 mg capsule 450 mg capsule PO RF: 0 folic acid 20 mg capsule 20 mg capsule 20 mg PO DAILY RF: 0 mepolizumab 100 mg/mL auto-injector SC RF: 0 euflexa gel Not Applicable RF: 0 acetaminophen [Tylenol] 325 mg tablet 650 mg PO ONCE PRNRF: 0 Zyrtec 10 mg capsule PO PRNRF: 0 diclofenac sodium [Voltaren] 1 % gel 2 g TOPICAL ONCE PRNRF: 0 digestive enzymes capsule 1 cap PO TID RF: 0 metaxalone [Skelaxin] 800 mg tablet 800 mg PO TID PRN (Reason: muscle pain) Qty: 60 RF: 1 multivitamin,ne-alpa-bzlkjpez 27-0.4 mg tablet PO DAILY RF: 0 magnesium oxide 500 MG capsule 1,000 mg PO QHS RF: 0 lansoprazole [Prevacid] 30 mg capsule,delayed release(DR/EC) 30 mg PO DAILY Qty: 90 RF: 3 digestive enzymes capsule 1 cap PO TID Qty: 270 RF: 3 furosemide 20 mg tablet 20 mg PO DAILY Qty: 90 RF: 3 Prolia 60 mg/mL syringe 60 mg SC [id number] Qty: 1 RF: 2 atenolol 50 mg tablet 50 mg PO BID Qty: 180 RF: 3 omega-3 fatty acids-fish oil [Fish Oil] 360-1,200 mg capsule 1 cap PO TID Qty: 270 RF: 1 nabumetone 500 mg tablet 500 mg PO BID PRN (Reason: pain) Qty: 60 RF: 1 Mucinex 1,200 mg tablet extended release 12hr 1,200 mg PO BID PRN (Reason: congestion) Qty: 60 RF: 4 Bevespi Aerosphere 9-4.8 mcg HFA aerosol inhaler 2 puff INHALATION QAM AND QPM 90 Days Qty: 10.7 RF: 3 cholecalciferol (vitamin D3) [Vitamin D3] 50 mcg (2,000 unit) capsule See Rx Instructions .ROUTE .COMPLEX Qty: 180 RF: 1 albuterol sulfate 2.5 mg /3 mL (0.083 %) solution for nebulization 2.5 mg INHALATION Q8H PRN (Reason: shortness of breath or wheezing) 90 Days Qty: 180 RF: 3 calcium citrate 200 mg (950 mg) tablet 200 mg PO TID Qty: 270 RF: 3 levothyroxine 75 mcg tablet See Rx Instructions .ROUTE .COMPLEX Qty: 90 RF: 3 pilocarpine HCl 5 mg tablet 5 mg PO TID 90 Days Qty: 270 RF: 1 fluticasone propionate [Flonase Allergy Relief] 50 mcg/actuation spray,suspension 2 spray INTRANASAL QDAY 90 Days Qty: 54.6 RF: 3 mirtazapine 30 mg tablet 30 mg PO QHS Qty: 90 RF: 1 mirtazapine 7.5 mg tablet 7.5 mg PO QHS Qty: 90 RF: 1 Primary Care Provider: Lashell Larsen Referrals: Alec Salazar DO [STAFF PHYSICIAN] - 3-5 Days Lashell Larsen MD [Primary Care Provider] - Disposition Disposition: Home, self care
--- NOTE | 2021-01-12 12:57 | ED.RN ---
vascular called in
== END 2021-01-12 14:27 | disposition home or self-care (01) ==
PROVIDERS: Emergency Provider Emergency Medicine; PCP Internal Medicine
DX: M25.572 Pain in left ankle and joints of left foot (principal); G89.29 Other chronic pain; M79.89 Other specified soft tissue disorders; E03.9 Hypothyroidism, unspecified; E11.40 Type 2 diabetes mellitus with diabetic neuropathy, unspecified; M51.36 Other intervertebral disc degeneration, lumbar region; M79.7 Fibromyalgia; E78.5 Hyperlipidemia, unspecified; F32.9 Major depressive disorder, single episode, unspecified; H40.9 Unspecified glaucoma; I10 Essential (primary) hypertension; I48.0 Paroxysmal atrial fibrillation; J44.9 Chronic obstructive pulmonary disease, unspecified; L71.9 Rosacea, unspecified; K21.9 Gastro-esophageal reflux disease without esophagitis; M81.0 Age-related osteoporosis without current pathological fracture; M06.9 Rheumatoid arthritis, unspecified; Z86.2 Personal history of diseases of the blood and blood-forming organs and certain disorders involving the immune mechanism; Z85.828 Personal history of other malignant neoplasm of skin; Z79.899 Other long term (current) drug therapy
CPT/HCPCS: 93971; 99282

== ENCOUNTER → 2021-03-22 19:09 | Outpatient (CLI) | payer MEDICARE, MEDICAID, SELFPAY ==
[2020-11-14 12:48] VITALS: BMI 30.5
[2021-02-20 13:59] VITALS: BMI 27.4
--- NOTE | 2021-03-22 19:15 | CT_ITS ---
STUDY: LOW DOSE CT LUNG CANCER SCREENING REASON FOR EXAM: Female, 70 years old. smoking and gt; 40 pack years RADIATION DOSAGE (If Supplied By Facility): CTDIvol = ( 2.01 ) mGy, DLP = ( 67.71 ) mGycm TECHNIQUE: No contrast was administered. Low dose technique was utilized (average mAS-38 and kVp 120). 1.25 mm axial source images with a slice interval of 1.25-mm were reconstructed in lung windows. 2.5 mm axial source images with a slice interval of 2.5-mm were reconstructed in lung windows. 5.0 mm axial source images with a slice interval of 5.0-mm were reconstructed in soft tissue windows. Nodule measured using lung windows on PACS and/or independent workstation with automated measurement of minimum and maximum diameter. Nodule measurement reported as average diameter rounded to the nearest whole number. Growth is defined as an increase ins size of greater than 1.5 mm. COMPARISON: To February 2019 Findings: Lungs are moderately to severely emphysematous. There is an irregular left lower lobe peripheral pleural contacting extended elongated nodule measuring 1.2 cm. However, the nodule has adjacent parenchymal extensions and adjacent scarring/atelectasis making size determination difficult. There is lingular and right middle lobe scarring. There is nonsolid 5 mm right lower lobe nodules less than 6 mm. Airways are patent. Pleural surfaces are intact. Osseous The skeleton is osteoporotic with chronic compression fracture of T12, new since 2019. Structures are intact. CT/Low Dose CT Lung Screening IMPRESSION: 1. Left lower lobe 1.2 cm nodule, lung RADS category 4B. Pulmonary referral and additional imaging is advised, either CT chest in [address] PET. IMPORTANT NOTES FOR USE: ACR Lung-RADS Version 1.1 Assessment Categories Release Date: 2018 Category: Coded 0-4 bases on nodule(s) with highest degree of suspicion. Negative screen is defined as categories 1 and 2; a positive screen is defined as categories 3 and 4. Category 3 and 4A nodules that are unchanged on interval CT should be coded as category 2, and individuals returned to screening in 12 months. Category 4X: Category 3 or 4 nodules with additional imaging findings that increase the suspicion of lung cancer, such as spiculation, GGN that doubles in size in 1 year, enlarged lymph notes, etc. Category Modifiers: S (significant finding unrelated to lung cancer) Electronically Signed: Iman Magaña MD at 20:15 EDT Tel , Service support ,
== END ==
PROVIDERS: PCP Internal Medicine; Referring Provider Nurse Practitioner Acute Care; Visit Provider Nurse Practitioner Acute Care
DX: F17.210 Nicotine dependence, cigarettes, uncomplicated (principal)
CPT/HCPCS: 71271

== ENCOUNTER → 2021-03-29 15:41 | Outpatient (CLI) | payer MEDICARE, MEDICAID, SELFPAY ==
[2021-03-29 14:44] VITALS: BMI 27.1
--- NOTE | 2021-03-29 15:45 | RAD_ITS ---
STUDY: X-RAY - PELVIS AND LEFT HIP REASON FOR EXAM: Female, 70 years old. left hip pain TECHNIQUE: 3 views of the pelvis and hip. COMPARISON: None. FINDINGS: There is a non-specific bowel gas pattern. Normal visualized soft tissue structures. Normal bilateral iliac wings, sacroiliac joints and visualized sacrum. Normal bilateral superior and inferior pubic rami. Normal pubic symphysis. Normal bilateral ischial tuberosities. Subchondral cystic changes within the femoral head. Normal acetabulum. Normal hip joint. RAD/HIP, UNI W/ Pelvis 2-3 Views IMPRESSION: Subchondral cystic changes within the left femoral head likely due to osteoarthritis.. CT or MRI may be helpful for further assessment if clinically warranted Electronically Signed: Alec Landry MD at 16:10 EDT , Service support ,
== END ==
PROVIDERS: PCP Internal Medicine; Referring Provider Nurse Practitioner Family; Visit Provider Nurse Practitioner Family
DX: M25.552 Pain in left hip (principal); G89.29 Other chronic pain
CPT/HCPCS: 73502

== ENCOUNTER → 2021-04-15 | Outpatient (CLI) | payer MEDICARE, MEDICAID, SELFPAY | END | disposition home or self-care (01) | LOC: LABSPEC 16:55 | PROVIDERS: PCP Internal Medicine; Visit Provider Otolaryngology | DX: J32.9 Chronic sinusitis, unspecified (principal) | CPT/HCPCS: 87070; 87077; 87205 ==

== ENCOUNTER → 2021-04-24 | Outpatient (CLI) | payer MEDICARE, MEDICAID, SELFPAY | END | disposition home or self-care (01) | PROVIDERS: PCP Internal Medicine; Referring Provider Physician Assistant; Visit Provider Physician Assistant | DX: Z11.52 Encounter for screening for COVID-19 (principal) | CPT/HCPCS: 87635; U0005; U0003 ==

== ENCOUNTER → 2021-05-27 13:12 | Outpatient (CLI) | payer MEDICARE, MEDICAID, SELFPAY ==
--- NOTE | 2021-05-27 13:14 | CT_ITS ---
STUDY: CT CHEST WITHOUT CONTRAST REASON FOR EXAM: Female, 70 years old. LLL nodule RADIATION DOSAGE (If Supplied By Facility): CTDIvol = ( 5.58 ) mGy, DLP = ( 190.08 ) mGycm TECHNIQUE: Transaxial imaging was performed without the administration of intravenous contrast material. Individualized dose optimization techniques were used for this CT. COMPARISON: 03/22/2021. FINDINGS: The lungs are expanded. Stable peripheral 6 mm lingular nodule, image 86 series 4. The previously noted irregular left lower lobe density is smaller measuring 0.5 cm in maximum dimension. There is additional left lower lobe irregular parenchymal density with a maximum diameter 1.5 cm with probable scarring. Normal heart and pericardium. Normal mediastinum. Normal hilar regions. Normal unenhanced pulmonary arteries. Mildly calcified aorta arch and descending thoracic aorta. Stable sclerosis and mild compression of T12 similar to previous study. There is no demonstrated abnormality of the visualized upper abdomen. CT/Chest without Contrast IMPRESSION: Stable lingular nodular density. Previously noted linear irregular left lung base nodular density appears to be slightly smaller. Increasing parenchymal densities probable scarring in the left lung base. Follow-up in 3 months is recommended. Electronically Signed: Terry Booth DO at 16:54 EDT Tel [phone], Service support ,
== END ==
PROVIDERS: PCP Internal Medicine; Referring Provider Internal Medicine Critical Care Medicine; Visit Provider Internal Medicine Critical Care Medicine
DX: R91.1 Solitary pulmonary nodule (principal)
CPT/HCPCS: 71250

== ENCOUNTER → 2021-05-29 14:00 | Outpatient (CLI) | payer MEDICARE, MEDICAID, SELFPAY ==
[2021-05-29 15:02] LABS: Absolute Lymphocyte Count 1.34 X10^3/uL (0.83-4.51); Absolute Neutrophil Count 3.9 X10^3/uL (2.0-7.7); Basophil# 0.04 X10^3/uL; Basophil% 0.7 % (0-1); Eosinophil# 0.02 X10^3/uL; Eosinophils% 0.3 % (0-5); Hematocrit 39.9 % (37-47); Hemoglobin 12.8 g/dL (12.0-15.0); Lymphocyte # 1.34 X10^3/ul (0.83-4.51); Lymphocyte % 22.2 % (19-41); Mean Corp Hgb Conc 32.1 g/dL (32-36); Mean Corpuscular Hgb 31.2 pg (27.0-32.0); Mean Corpuscular Volume 97.3 fL (81-99); Monocyte% 11.6 % (0-10); NRBC Flagged by Analyzer 0 % (0-5); Neutrophil # 3.91 X10^3/uL (2.7-7.7); Neutrophil % 64.9 % (47-70); Platelet Count 305 K/mm3 (150-450); RBC Distribution Width SD 46.7 fl (35.1-43.9)
[2021-05-29 15:17] LABS: Vitamin D,25 Hydroxy 53.2 ng/mL
[2021-05-29 15:24] LABS: ALB/GLOB Ratio 0.9 RATIO (0.9-2.4); AST(SGOT) 16 U/L (15-37); Alanine Aminotransfer ALT/SGPT 27 U/L (13-56); Albumin, Serum 3.5 g/dL (3.2-5.0); Alkaline Phosphatase 37 U/L (45-117); Anion Gap 7 (5-15); BUN 20 mg/dL (7-18); BUN/Creat Ratio 29.5 RATIO (10-20); Calcium,Total 9.2 mg/dL (8.5-10.1); Chloride 100 mmol/L (98-107); Creatinine, Serum 0.68 mg/dL (0.55-1.02); EST Glomerular Filtration Rate 91 mL/min (>60); Est Glom Filt Rate - Afr Amer 110 mL/min (>60); Globulin 3.9 g/dL (2.2-4.2); Glucose 102 mg/dL (74-106); Magnesium 1.8 mg/dL (1.6-2.6); Potassium 4.2 mmol/L (3.5-5.1); Protein, Total 7.4 g/dL (6.4-8.2); Sodium Level 135 mmol/L (136-145)
== END ==
PROVIDERS: PCP Internal Medicine; Referring Provider Internal Medicine; Visit Provider Internal Medicine
DX: J30.2 Other seasonal allergic rhinitis (principal); E78.5 Hyperlipidemia, unspecified; E03.9 Hypothyroidism, unspecified; E11.9 Type 2 diabetes mellitus without complications; J43.2 Centrilobular emphysema; Z72.0 Tobacco use; M81.0 Age-related osteoporosis without current pathological fracture; M19.90 Unspecified osteoarthritis, unspecified site; M51.36 Other intervertebral disc degeneration, lumbar region; M70.62 Trochanteric bursitis, left hip; M85.80 Other specified disorders of bone density and structure, unspecified site
CPT/HCPCS: 36415; 80053; 82306; 83735; 85025

== ENCOUNTER → 2021-06-14 14:07 | Outpatient (CLI) | payer MEDICARE, MEDICAID, SELFPAY ==
[2021-06-14 17:33] LABS: Absolute Lymphocyte Count 1.73 X10^3/uL (0.83-4.51); Absolute Neutrophil Count 4.2 X10^3/uL (2.0-7.7); Basophil# 0.05 X10^3/uL; Basophil% 0.7 % (0-1); Eosinophil# 0.03 X10^3/uL; Eosinophils% 0.4 % (0-5); Hematocrit 39.4 % (37-47); Hemoglobin 13.2 g/dL (12.0-15.0); Lymphocyte # 1.73 X10^3/ul (0.83-4.51); Lymphocyte % 25.4 % (19-41); Mean Corp Hgb Conc 33.5 g/dL (32-36); Mean Corpuscular Volume 95.6 fL (81-99); Mean Platelet Vol. 10.6 fl (6.2-12.0); Monocyte# 0.79 X10^3/uL; Monocyte% 11.6 % (0-10); NRBC Flagged by Analyzer 0 % (0-5); Neutrophil % 61.8 % (47-70); Platelet Count 216 K/mm3 (150-450); RBC Distribution Width CV 12.6 % (11.6-14.6); RBC Distribution Width SD 44.3 fl (35.1-43.9); Red Blood Count 4.12 M/mm3 (4.2-5.4); White Blood Count 6.8 K/mm3 (4.4-11.0)
[2021-06-14 17:43] LABS: Erythrocyte Sedimentation Rate 12 mm/hr (0-30)
[2021-06-14 18:14] LABS: CRP < 2.90 mg/L (0.0-3.0)
== END ==
PROVIDERS: PCP Specialist; Referring Provider Specialist; Visit Provider Specialist
DX: M87.052 Idiopathic aseptic necrosis of left femur (principal)
CPT/HCPCS: 36415; 85025; 85652; 86140

== ENCOUNTER 2021-08-26 17:08 | Outpatient (CLI) | payer MEDICARE, MEDICAID, SELFPAY ==
--- NOTE | 2021-08-26 17:11 | RAD_ITS ---
STUDY: X-RAY CHEST REASON FOR EXAM: Female, 71 years old. ongoing cough TECHNIQUE: PA and lateral views of the chest. COMPARISON: 05/27/2021. FINDINGS: The lungs are clear and expanded. There is no demonstrated pleural abnormality. Normal size heart. Normal mediastinum and maureen. Normal visualized pulmonary arteries. Normal visualized aortic arch and descending thoracic aorta. Normal visualized thoracic spine. Normal visualized ribs, clavicles, and shoulders. There is no demonstrated abnormality of the visualized soft tissue structures of the upper abdomen. RAD/Chest PA and Lateral IMPRESSION: Normal x-ray examination of the chest. Electronically Signed: Nisha Beckham MD at 17:58 EST Tel , Service support ,
== END 2021-08-26 23:59 | disposition home or self-care (01) ==
LOC: MTRAD 17:09
PROVIDERS: PCP Internal Medicine; Referring Provider Physician Assistant Surgical; Visit Provider Physician Assistant Surgical
DX: J20.9 Acute bronchitis, unspecified (principal)
CPT/HCPCS: 71046

== ENCOUNTER 2021-11-18 14:12 | Outpatient (CLI) | payer MEDICARE, MEDICAID, SELFPAY ==
[2021-11-18 15:03] LABS: Absolute Lymphocyte Count 1.05 X10^3/uL (0.83-4.51); Absolute Neutrophil Count 1.9 X10^3/uL (2.0-7.7); Basophil# 0.03 X10^3/uL; Basophil% 0.8 % (0-1); Eosinophil# 0.06 X10^3/uL; Eosinophils% 1.6 % (0-5); Hematocrit 37.7 % (37-47); Hemoglobin 12.5 g/dL (12.0-15.0); Lymphocyte # 1.05 X10^3/ul (0.83-4.51); Lymphocyte % 28.8 % (19-41); Mean Corp Hgb Conc 33.2 g/dL (32-36); Mean Corpuscular Hgb 31.4 pg (27.0-32.0); Mean Corpuscular Volume 94.7 fL (81-99); Mean Platelet Vol. 9.7 fl (6.2-12.0); Monocyte# 0.64 X10^3/uL; Monocyte% 17.6 % (0-10); NRBC Flagged by Analyzer 0 % (0-5); Neutrophil # 1.85 X10^3/uL (2.7-7.7); Neutrophil % 50.9 % (47-70); Platelet Count 254 K/mm3 (150-450); RBC Distribution Width CV 12.6 % (11.6-14.6); RBC Distribution Width SD 44.3 fl (35.1-43.9); Red Blood Count 3.98 M/mm3 (4.2-5.4); White Blood Count 3.6 K/mm3 (4.4-11.0)
[2021-11-18 15:33] LABS: Vitamin D,25 Hydroxy 37.4 ng/mL
[2021-11-26 12:00] LABS: Immunoglobulin A 165 mg/dL (64-422); Immunoglobulin E 140 IU/mL (6-495); Immunoglobulin G 855 mg/dL (586-1602); Immunoglobulin M 271 mg/dL (26-217)
[2021-11-26 13:32] LABS: Complement CH50 > 60 U/mL (>41)
[2021-11-27 00:07] LABS: Alternaria tenuis <0.10 kU/L (Class 0); Ash, White <0.10 kU/L (Class 0); Aspergillus fumigatus <0.10 kU/L (Class 0); Bermuda Grass <0.10 kU/L (Class 0); Birch <0.10 kU/L (Class 0); Black Walnut <0.10 kU/L (Class 0); Cat Hair / Dander,Stand <0.10 kU/L (Class 0); Cedar, Mountain <0.10 kU/L (Class 0); Cladosporium herbarum <0.10 kU/L (Class 0); Cockroach, American <0.10 kU/L (Class 0); Cottonwood <0.10 kU/L (Class 0); D farinae Mite <0.10 kU/L (Class 0); D pteronyssinus <0.10 kU/L (Class 0); Dog Epithelia <0.10 kU/L (Class 0); Elm, American White <0.10 kU/L (Class 0); Immunoglobulin E 138 IU/mL (6-495); Maple/Box Elder <0.10 kU/L (Class 0); Mulberry, White <0.10 kU/L (Class 0); Oak, White <0.10 kU/L (Class 0); Pecan <0.10 kU/L (Class 0); Penicillium Notatum <0.10 kU/L (Class 0); Pigweed, Rough <0.10 kU/L (Class 0); Ragweed, Short/Common <0.10 kU/L (Class 0); Russian Thistle <0.10 kU/L (Class 0); Sheep Sorrel <0.10 kU/L (Class 0); Sycamore, American <0.10 kU/L (Class 0); Timothy Grass <0.10 kU/L (Class 0)
[2021-11-27 12:03] LABS: Mouse Urine <0.10 kU/L (Class 0)
== END 2021-11-18 23:59 | disposition home or self-care (01) ==
PROVIDERS: PCP Internal Medicine; Visit Provider Specialist
DX: J30.9 Allergic rhinitis, unspecified (principal); D84.9 Immunodeficiency, unspecified; J45.50 Severe persistent asthma, uncomplicated; R06.00 Dyspnea, unspecified; J32.9 Chronic sinusitis, unspecified
CPT/HCPCS: 36415; 82306; 82784; 82785; 85025; 86003; 86162

== ENCOUNTER → 2021-12-10 | Outpatient (CLI) | payer MEDICARE, MEDICAID, SELFPAY ==
--- NOTE | 2021-12-10 15:10 | CT_ITS ---
STUDY: CT CHEST without CONTRAST REASON FOR EXAM: Female, 71 years old. LLL nodule 1.5cm RADIATION DOSAGE (If Supplied By Facility): CTDIvol = ( 9.45 ) mGy, DLP = ( 370.74 ) mGycm TECHNIQUE: Transaxial imaging was performed without intravenous contrast administration. Individualized dose optimization techniques were used for this CT. COMPARISON: Comparison is made with prior study 05/27/2021. FINDINGS: CHEST Stable small benign-appearing bilateral axillary lymph nodes. Stable mild linear scarring at the lung bases. Stable 6 mm noncalcified nodule in the anterior peripheral aspect of the lingula segment of the left upper lobe as seen on axial image #87. There is no demonstrated pleural abnormality. There are calcifications of the coronary arteries. There are multiple small lymph nodes within the mediastinum, which are normal in size and morphology most compatible with reactive lymph hyperplasia. Normal hilar regions. Normal unenhanced pulmonary arteries. There is atherosclerotic calcification of the aortic arch with tortuosity and elongation of the aortic arch and descending thoracic aorta. There are multi-level degenerative changes of the thoracic spine. Small hiatal hernia. CT/Chest without Contrast IMPRESSION: Stable examination. Electronically Signed: Nilton Cortes MD at 14:04 EDT ,
== END | disposition home or self-care (01) ==
LOC: CT 15:08
PROVIDERS: PCP Internal Medicine; Visit Provider Nurse Practitioner Acute Care
DX: R91.1 Solitary pulmonary nodule (principal)
CPT/HCPCS: 71250

== ENCOUNTER → 2021-12-26 | Outpatient (CLI) | payer MEDICARE, MEDICAID, SELFPAY ==
[2021-12-26 15:19] LABS: Absolute Lymphocyte Count 1.66 X10^3/uL (0.83-4.51); Basophil# 0.04 X10^3/uL; Basophil% 0.6 % (0-1); Eosinophil# 0.03 X10^3/uL; Eosinophils% 0.5 % (0-5); Hematocrit 40.9 % (37-47); Hemoglobin 13.2 g/dL (12.0-15.0); Lymphocyte # 1.66 X10^3/ul (0.83-4.51); Lymphocyte % 25.6 % (19-41); Mean Corp Hgb Conc 32.3 g/dL (32-36); Mean Corpuscular Hgb 30.4 pg (27.0-32.0); Mean Corpuscular Volume 94.2 fL (81-99); Mean Platelet Vol. 10.9 fl (6.2-12.0); Monocyte# 0.74 X10^3/uL; Monocyte% 11.4 % (0-10); NRBC Flagged by Analyzer 0 % (0-5); Neutrophil % 61.6 % (47-70); Platelet Count 230 K/mm3 (150-450); RBC Distribution Width CV 12.5 % (11.6-14.6); RBC Distribution Width SD 43.5 fl (35.1-43.9); Red Blood Count 4.34 M/mm3 (4.2-5.4); White Blood Count 6.5 K/mm3 (4.4-11.0)
== END | disposition home or self-care (01) ==
PROVIDERS: PCP Internal Medicine; Referring Provider Specialist; Visit Provider Specialist
DX: D70.9 Neutropenia, unspecified (principal)
CPT/HCPCS: 36415; 85025

== ENCOUNTER → 2022-01-31 | Outpatient (CLI) | payer MEDICARE, MEDICAID, SELFPAY | END | disposition home or self-care (01) | PROVIDERS: PCP Internal Medicine; Visit Provider Otolaryngology | DX: J32.9 Chronic sinusitis, unspecified (principal) | CPT/HCPCS: 87070; 87077; 87186; 87205 ==

== ENCOUNTER → 2022-05-07 | Outpatient (CLI) | payer MEDICARE, MEDICAID, SELFPAY ==
--- NOTE | 2022-05-07 16:56 | CT_ITS ---
STUDY: CT FACIAL BONES WITH CONTRAST REASON FOR EXAM: Female, 71 years old. Recurrent sinusitis, hx aspergillus RADIATION DOSAGE (If Supplied By Facility): CTDIvol = ( 33.06 ) mGy, DLP = ( 784.26 ) mGycm TECHNIQUE: The patient was scanned in a multi detector CT scanner. Transaxial imaging was performed following the intravenous administration of IV 100mL Isovue-300. Sagittal and coronal images were reconstructed. Individualized dose optimization techniques were used for this CT. COMPARISON: None. FINDINGS: Normal soft tissue structures. Postsurgical changes status post resection of the rene of the maxillary sinuses and partial ethmoidectomies. No evidence for acute facial bone fracture. There is complex mucosal thickening within the left maxillary sinus which may be consistent with coexisting hemorrhage or fungal disease. The right maxillary sinus is unremarkable There is mild mucosal thickening of the ethmoid air cells bilaterally without air-fluid level. Sphenoid sinuses are within normal limits. Mild mucosal thickening of the frontal sinuses bilaterally CT/Sinus/Facial Bone WITH Contras IMPRESSION: Postsurgical changes. Mild mucosal thickening of the bilateral ethmoid and frontal sinuses without air-fluid level likely chronic. Moderate complex with central thickening in left maxillary sinus possibly hemorrhagic or fungal. Electronically Signed: Alec Landry MD at 17:28 EDT ,
[2022-05-07 17:25] LABS: CREATININE FINGERSTICK < 0.9 mg/dL (0.55-1.02); EGFR FINGERSTICK > 60.0000 mL/min (>60)
== END | disposition home or self-care (01) ==
LOC: CT 16:55
PROVIDERS: PCP Internal Medicine; Referring Provider Internal Medicine; Visit Provider Internal Medicine
DX: J32.9 Chronic sinusitis, unspecified (principal)
CPT/HCPCS: 70487; Q9967

== ENCOUNTER → 2023-08-12 | Outpatient (CLI) | payer MEDICARE, MEDICAID, SELFPAY | END | disposition home or self-care (01) | LOC: LABSPEC 15:12 | PROVIDERS: PCP Internal Medicine; Referring Provider Physician Assistant Surgical; Visit Provider Physician Assistant Surgical | DX: N39.0 Urinary tract infection, site not specified (principal) | CPT/HCPCS: 87086 ==

== ENCOUNTER 2025-03-08 20:29 | Inpatient (IN) | payer MEDICARE, MEDICAID, SELFPAY ==
[2025-03-08 20:32] VITALS: BP 89/55; PULSE 68; RESP 18; TEMP 36.4; O2SAT 96
--- NOTE | 2025-03-08 21:13 | NURSING ---
Pt's admission BP 89/[address] Bradley of BP and HR. New orders to administer a 1000 mL bolus of normal saline and to recheck BP after bolus is completed. Orders verified via readback.
--- NOTE | 2025-03-08 21:24 | HP.PCM_ITS ---
[facility] - General General Date of Admission: 03/08/25 Date of Service: 03/09/25 Chief Complaint: Here for rehabilitation. HPI Narrative SHENG CISNEROS, is a 74 Female who presents with following: Patient has cervical myelopathy due to multilevel cervical stenosis and spondylosis. She has severe axial cervical pain that radiates into the right arm. She has become wheelchair bound, unable to hold herself up for more than a few moments as her legs give out on her. She also has axial lumbar spine and thoracic spinal pain. She has subacute compression fractures of L1, L2. stable T12 compression fracture. She has moderate to severe L4-L5 spinal canal stenosis. She has significant dysfunction of her legs as well as her arms. She has left foot paralysis, as well as spasm of left lower extremity over the past 2-3 months. She is unable to take care of herself or perform any activities of daily living without assistance. 02/22/2025 Admit to [facility]. 02/23/2025 Dr. Collier performed laminectomy and fusion of cervical spine for cervical spondylosis with myelopathy. 02/25/2025 Pneumothorax 2/2 left subclavian central catheter placed during OR. 02/26/2025 Chest tube placed. 02/28/2025 JEAN-PIERRE drain removed. 03/02/2025 Chest tube removed. 03/03/2025 Chest X-ray showed resolution pneumothorax. 03/07/2025 s/p decadron taper for cervical spondylosis/p laminectomy and fusion. Hypokalemia resolved with replacement Sodium tablets for hyponatremia with improvement. Continue Atenolol for cad, mitral valve prolapse. 03/08/2025 Admit to TCU with debility, here for rehabilitation, strengthening, prior to discharge home alone. [facility] Medical History PTSD (post-traumatic stress disorder) Thrush Encounter for screening for COVID-19 Acute maxillary sinusitis, unspecified Chronic left hip pain Asthmatic bronchitis with acute exacerbation Acute sinusitis, unspecified Hx of squamous cell carcinoma Abnormal bruising Hay fever Fatigue Shoulder pain Hemorrhoids Fibromyalgia Left renal mass Hypothyroid Paroxysmal atrial fibrillation Diabetes mellitus type II, controlled Palpitations Hyperlipidemia Essential hypertension Rosacea DDD (degenerative disc disease), lumbar Vitamin deficiency Skin cancer GERD (gastroesophageal reflux disease) Osteoporosis Osteopenia Neuropathy Chronic headaches Glaucoma Emphysema lung Depression Chronic bronchitis Cancer Bleeding disorder Back problem Asthma Arthritis Anemia Seasonal allergies Home Medications ?Medication ?Instructions ?Recorded ?Last Taken ?Type magnesium oxide 500 mg capsule 1,000 mg PO QHS 9 Unknown History ivermectin 1 % topical cream 1 applic topical DAILY Unknown History (Soolantra) valerian root 450 mg capsule mg PO 05/22/20 Unknown Hi story acetaminophen 325 mg tablet 650 mg PO ONCE PRN 1 Unknown History (Tylenol) diclofenac sodium 1 % topical gel 2 g topical ONCE PRN pain #100 03/28/21 Unknown Rx grams folic acid 1 mg tablet 1.5 mg PO DAILY supplement 0 08/26/21 Unknown History pseudoephedrine HCl 30 mg tablet 30 mg PO ONCE PRN 06/07 Unknown History (Sudafed) disability placard #1 ea 01/30/22 Unknown Rx mepolizumab 100 mg/mL subcutaneous 300 mg (3 mL) subcu t Q4W #3 mL 02/25/22 Unknown Rx auto-injector mupirocin 2 % topical ointment 1 applic topical BID an tibiotic 04/07/22 Unknown Rx #15 grams lansoprazole 30 mg capsule,delayed 30 mg PO DAILY GERD #90 caps 04/29/22 Unknown Rx release (Prevacid) guaifenesin 1,200 mg tablet, 1,200 mg PO BID PRN cough , 06/19/22 Unknown Rx extended release 12 hr (Mucinex) congestion #180 tabs metaxalone 800 mg tablet (Skelaxin) 800 mg PO TID musc le pain #270 tabs 06/19/22 Unknown Rx mirtazapine 30 mg tablet See Rx Instructions .Route 1 08/24/21 Unknown Rx .COMPLEX #90 tabs mirtazapine 7.5 mg tablet 7.5 mg PO QHS #90 tabs 06/24 Unknown Rx fluticasone propionate 50 2 spray intranasal BID aller gies 07/03/22 Unknown Rx mcg/actuation nasal #3 BOTTLES spray,suspension (Flonase Allergy Relief) ayr saline NASAL 2XD nasal dryness 06/18 04/07 Unknown History atenolol 50 mg tablet 50 mg PO BID cannot tolerate 07/30/22 Unknown Rx candesartan for BP #180 tabs cholecalciferol (vitamin D3) 50 See Rx Instructions .R oute 12/14/22 Unknown Rx mcg (2,000 unit) capsule (Vitamin .COMPLEX supplement #180 caps D3) pilocarpine HCl 5 mg tablet 5 mg PO TID hormone 3 vilma hs #270 07/30/22 Unknown Rx tabs furosemide 20 mg tablet 20 mg PO DAILY #180 tabs Unknown Rx albuterol sulfate 2.5 mg/3 mL 2.5 mg (3 mL) inhalation Q8H PRN 08/19/22 Unknown Rx (0.083 %) solution for nebulization shortness of breat h or wheezing #270 mL vilazodone 10 mg tablet 10 mg PO DAILY #30 tabs 08/17 03/08 Unknown Rx calcium citrate 200 mg PO TID supplement #27 0 tabs 09/29/22 Unknown Rx omega-3 fatty acids-fish oil 360 1 cap PO TID #270 cap s 09/29/22 Unknown Rx mg-1,200 mg capsule (Fish Oil) budesonide 0.5 mg/2 mL suspension 0.5 mg (2 mL) inhala tion BID 10/22/22 Unknown Rx for nebulization shortness of breath #180 mL denosumab 60 mg/mL subcutaneous 60 mg subcut [id number] osteoporosis 10/31/22 Unknown Rx syringe (Prolia) #1 mL glycopyrrolate 9 mcg-formoterol 2 puff inhalation QAM AND QPM COPD 11/04/22 Unknown Rx 4.8 mcg HFA aerosol inhaler 3 months #10.7 grams (Bevespi Aerosphere) ichphkwvdebs-Ty-[id number]-minerals 27 1 tab PO DAILY #90 ta bs 11/06/22 Unknown Rx mg-0.4 mg tablet levothyroxine 75 mcg tablet See Rx Instructions .Route 04/21/23 Unknown Rx .COMPLEX thyroid #90 tabs Allergy/AdvReac Type Severity Reaction Status Date / Time benztropine (From Cogentin) Allergy Severe hallucinati Verified 09/30/23 14:10 ons levofloxacin (From Levaquin) Allergy Severe Stomach Verified 09/30/23 14:10 pain lithium Allergy Severe Nausea/Vom/ Verified 09/30/23 14:10 Diarrhea niacin Allergy Severe Rash Verified 09/30/23 14:10 Penicillins Allergy Severe Hives Verified 09/30/23 14:10 soybean Allergy Intermediate Rash Verified 09/30/23 14:10 Sulfa (Sulfonamide Allergy Intermediate Hives Verified 09/30/23 14:10 Antibiotics) trazodone Allergy Intermediate breathing Verified 09/30/23 14:10 problems sulfamethoxazole (From Allergy Unknown Verified 09/30/23 14:10 Bactrim) trimethoprim (From Bactrim) Allergy Unknown Verified 09/30/23 14:10 candesartan AdvReac Intermediate Palpitations Verified 09/30/23 14:10 and depression hydrochlorothiazide AdvReac Intermediate Palpitations Verified 09/30/23 14:10 and depression cephalexin (From Keflex) AdvReac yeast Verified 09/30/23 14:10 indection Family History Father Asthma Heart disease High cholesterol Respiratory disease Multiple allergies Mother Anxiety Arthritis Bowel disease Colon cancer Myocardial infarction Hypertension Surgical History History of ethmoidectomy hx of finger surgery History of intestinal surgery hx of muscle biopsy sinuplasty History of cataract removal with insertion of prosthetic lens History of closure of ileostomy History of ileostomy History of orthopedic surgery History of sinus surgery History of rotator cuff surgery Status post LASIK surgery of both eyes History of total hysterectomy History of tonsillectomy History of carpal tunnel surgery Social History household members: none housing: house current occupational status: retired pets and animals: No Smoking Status: Former smoker quit date: 09/17/20 Tobacco: How many years used: 38 second hand exposure: Yes alcohol intake: never substance use type: does not use what type of physical activity do you participate in: none do you feel safe at home: Yes ROS Constitutional Constitutional: Denies chills, fever(s) or weight gain ENT HEENT: Denies headache(s), nasal congestion or nasal discharge Cardiovascular Cardiovascular: Denies chest pain or palpitations Respiratory/Chest Respiratory/Chest: Denies cough, excessive phlegm production or shortness of breath with exertion Gastrointestinal Gastrointestinal: Denies abdominal pain, nausea or vomiting Genitourinary Genitourinary: Denies dysuria Musculoskeletal Musculoskeletal: Denies joint pain or joint swelling Integumentary Integumentary: Denies rash or wounds Neurologic Neurologic: Denies focal weakness, numbness or tingling Psychiatric Psychiatric: Denies anxiety, auditory hallucinations, depression, homicidal ideation or suicidal ideation Physical Exam Const alert General Appearance: cooperative HEENT normocephalic Eyes PERRL and EOMs intact bilaterally Neck supple, no JVD and no carotid bruits Resp normal respiratory effort, normal air movement and clear to auscultation bilaterally Cardio regular rate and regular rhythm GI normal to inspection, nondistended, normoactive bowel sounds, non-tender and non-distended Extremity normal capillary refill General Extremity: Negative for edema Skin no rashes or lesions noted General Skin Exam: no breakdown Psych affect normal Appearance: appropriate Assessment & Plan Assessment/Plan (1) Debility: (2) Cervical spondylosis: (3) Cervical myelopathy: (4) Hypokalemia: (5) Hyponatremia: (6) Coronary artery disease: (7) COPD (chronic obstructive pulmonary disease): QUALIFIERS: COPD type: unspecified COPD Qualified Code(s): J44.9 - Chronic obstructive pulmonary disease, unspecified (8) GERD (gastroesophageal reflux disease): (9) Essential (primary) hypertension: (10) Hypothyroid: (11) Iron deficiency anemia: (12) Acute respiratory failure with hypoxia: (13) Pneumothorax: PLAN: Plan 74 year old female with below past medical history hospitalized for cervical spondylosis with myelopathy, underwent cervical decompression/laminectomy 02/23/[address] Collier, postoperative course complicated by acute respiratory failure with hypoxia 2/2 pneumothorax resolved with chest tube, hyponatremia, hypokalemia, admitted to TCU with debility, here for rehabilitation, strengthening, prior to discharge home alone. * Debility - PT/OT. * Pain - Tylenol 1000mg q6 prn pain (1-5), Oxycodone 5mg q4 prn pain (6-10). * Bowel - senna/colace 2 tablets bid, Magnesium citrate 300mL daily prn. * Adult immunization - Administer pneumonia vaccine, covid vaccine, flu vaccine as appropriate. * DVT prophylaxis - Lovenox 40mg sc daily. * Hypotension - Normal Saline 1 liter iv bolus, recheck blood pressure. * Asthma - Budesonide 0.5mg inhaled bid, Albuterol 2.5mg q6 prn, Singulair 10mg daily. * CAD - Atenolol 50mg bid. * Vitamin D deficiency - D3 50mcg daily. * IBS - Bentyl 20mg achs thru 03/15/2025. * Allergic rhinitis - Flonase 2 sprays nasal bid. * Folate deficiency - Folic acid 1.5mg daily. * Congestion - Mucinex 1200mg bid. * GERD - Lansoprazole 30mg daily. * Hypothyroidism - Levothyroxine 75mcg daily. * Muscle spasm - Skelaxin 800mg tid prn. * Nutrition - MVI 1 tablet daily. * Nausea - Zofran 4mg q8 prn. * Dry eyes - Artificial tears 1gtt ou q1h prn. * Migraines - Ubrelvy 100mg daily prn. * Zinc deficiency - Zinc 50mg daily. * Bacterial vaginosis - Flagyl 500mg po bid x 7 days. * Yeast vaginitis - Fluconazole 150mg po x 1 dose. * Dysuria - order UA, C+S. The following psychotropic medication was present on admission: Venlafaxine 100mg daily. Psychotropic medication therapy is indicated for a diagnosis of: Depression. Based on my clinical evaluation, continuation of the medication is necessary at this time. Gradual dose reduction plan (select one): ____ GDR will be attempted. Will monitor patient symptoms and behaviors in response to GDR. __x__ GRD contraindicated. Reason contraindicated: stable chronic skilled nursing use. The following psychotropic medication was present on admission: Mirtazapine 45mg qhs. Psychotropic medication therapy is indicated for a diagnosis of: Insomnia. Based on my clinical evaluation, continuation of the medication is necessary at this time. Gradual dose reduction plan (select one): ____ GDR will be attempted. Will monitor patient symptoms and behaviors in response to GDR. _x___ GRD contraindicated. Reason contraindicated: stable chronic skilled nursing use.
--- OUTSIDE RECORDS SUMMARY | 2025-03-08 21:44 | XMS RPT_ITS | CCD ---
Author Organization [facility] Care Team Providers Care Carpenter Assistant Name Role Phone SECOR, BRICE Unavailable Unavailable SECOR, BRICE Unavailable Unavailable PATRICIA MORGAN Unavailable Unavailable PATRICIA MORGAN Unavailable Unavailable DANIEL MORENO Unavailable Unavailable SELF, SELF Unavailable Unavailable Zarrabi, Lisa Unavailable Unavailable Zarrabi, Lisa Unavailable Unavailable Zarrabi, Lisa Unavailable Unavailable Zumbar, Jerome Unavailable Unavailable Zarrabi, Lisa Unavailable Unavailable Zarrabi, Lisa Unavailable Unavailable Zumbar, Jerome Unavailable Unavailable Zumbar, Jerome Unavailable Unavailable Zarrabi, Lisa Unavailable Unavailable Zarrabi, Lisa Unavailable Unavailable No, Physician Unavailable Unavailable Misty Hudson Unavailable Misty Hudson Primary Care Provider Syed Canas MD Primary Care Provider Unava ilable JOVANNA VALENCIA Referring Unavailab SYED Dunbar Primary Care Unavailable Dr. Harpal Gonzalez Referring Provider Geraldo SOLOMON, GRAPHIC ART DESIGNERMiltonC Amy Attending Provider Dr. Syed Canas Primary Care Provider Dr. Syed Canas Referring Provider [phone] TERRELL Delgado Attending Provider TERRELL Hernandez Attending Provider Dr. Syed Canas Primary Care Provider Dr. Syed Canas Referring Provider Dr. Harpal Gonzalez Referring Provider Dr. Tomas Umana Attending Provider [phone] Syed Canas Primary Care Provider Becca VALLE, Misty Velasquez Primary Care Provider [phone] Syed Canas MD Primary Care Provider Unava ilable Floresita VALLE, Syed Primary Care Provider Unava ilable SYED CANAS Primary Care Unavailable SYSTEM, PROVIDER NOT IN Attending Unavaila ble SYSTEM, PROVIDER NOT IN Referring Unavaila ble SYED CANAS Primary Care Unavailable JOVANNA VALENCIA Admitting Unavailab JOVANNA Thompson Referring Unavailab pushpa Hudson MD, Misty Velasquez Primary Care Provider [phone] Floresita VALLE, Syed Primary Care Provider Tiesha VALLE, Sj Painting Primary Care Pro vider Syed Canas MD Primary Care Provider Guillermo COLORING CHECKER MARKETING SALES REPRESENTATIVE, Marisol M Unavailable Unavailabl e SELF, SELF Referring Unavailable SYED CANAS M Primary Care Unavailable JUDIE GALVEZ Attending Unavailable SELF, SELF Referring Unavailable SYED CANAS M Primary Care Unavailable JUDIE GALVEZ Attending Unavailable SHI, JULIANNA L Referring Unavailable SHI, JULIANNA L Attending Unavailable SYED CANAS M Primary Care Unavailable SHI, JULIANNA L Attending Unavailable SYED CANAS M Primary Care Unavailable SHI, JULIANNA L Referring Unavailable SHI, JULIANNA L Referring Unavailable FLORESITA, SYED M Primary Care Unavailable JUDIE GALVEZ Attending Unavailable SHI, JULIANNA L Referring Unavailable SHI, JULIANNA L Attending Unavailable FLORESITA, SYED M Primary Care Unavailable SELF, SELF Referring Unavailable SYED CANAS M Primary Care Unavailable JUDIE GALVEZ Attending Unavailable Tiesha VALLE, Sj Painting Unavailable Syed Canas Referring Unavailable Syed Canas Primary Care Unavailable Farooq Bond Attending Unavailable Savanna RN, Kecia R Unavailable Unav ailable Savanna RN, Kecia R Unavailable Unav ailable TIESHA, SJ KORY MOUNIR Primary Care Maite vailable HASJUANJO FRANKS Attending Unavaila ble GADIEL SIMON Attending Unava ilable TIESHA, SJ KORY MOUNIR Primary Care Maite vailable SHAINA WATTERS Attending Unavailable TIESHA, SJ KORY MOUNIR Primary Care Maite vailable BRICE NOYOLA Referring Unavail able TIESHA, SJ KORY MOUNIR Primary Care Maite vailable BRICE NOYOLA Attending Unavail able BRICE NOYOLA Attending Unavail able BRICE NOOYLA Referring Unavail able TIESHA, SJ KORY MOUNIR Primary Care Maite vailable TAMRA MONTIEL Attending Unavail able TIESHA, SJ KORY MOUNIR Primary Care Maite vailable GADIEL SIMON Attending Unava ilable TIESHA, SJ KORY MOUNIR Primary Care Maite vailable HASJUANJO FRANKS Attending Unavaila ble TIESHA, SJ KORY MOUNIR Primary Care Maite vailable GADIEL SIMON Attending Unava ilable TIESHA, SJ KORY MOUNIR Primary Care Maite vailable LEANA WILL Attending Unavailab le TIESHA, SJ KORY MOUNIR Primary Care Maite vailable TIESHA, SJ KORY MOUNIR Attending Maite vailable TIESHA, SJ KORY MOUNIR Primary Care Maite vailable TIESHA, SJ KORY MOUNIR Attending Maite vailable TIESHA, SJ KORY MOUNIR Primary Care Maite vailable MIRIAM CERNA Attending Unavailab le TIESHA, SJ KORY MOUNIR Primary Care Maite vailable TIESHA, SJ KORY MOUNIR Attending Maite vailable TIESHA, SJ KORY MOUNIR Primary Care Maite vailable AIN MCKEON Attending Unavailable TIESHA, SJ KORY MOUNIR Primary Care Maite vailable CHARLY DIAS Attending Unavailable TIESHA, SJ KORY MOUNIR Primary Care Maite vailable ZHAO RINCON Attending Unavailable LUIS EDUARDO COLLIER Referring Unavail able CHOPKO, LUIS EDUARDO NULLMYR Admitting Unavail able TIESHA, SJ KORY MOUNIR Primary Care Maite vailable CHARLY DIAS Referring Unavailable DIASCHARLY SHANE Admitting Unavailable TIESHA, SJ KORY MOUNIR Primary Care Maite vailable MIRIAM CERNA Attending Unavailab le TIESHA, SJ KORY MOUNIR Primary Care Maite vailable LUIS EDUARDO COLLIER Attending Unavail able TIESHA, SJ KORY MOUNIR Primary Care Maite vailable MIRIAM CERNA Attending Unavailab le TIESHA, SJ KORY MOUNIR Primary Care Maite vailable TIESHA, SJ KORY MOUNIR Referring Maite vailable CHARLY DIAS Attending Unavailable TIESHA, SJ KORY MOUNIR Primary Care Maite vailable TIESHA, SJ KORY MOUNIR Admitting Maite vailable TIESHA, SJ KORY MOUNIR Attending Maite vailable TIESHA, SJ KORY MOUNIR Primary Care Maite vailable MIRIAM CERNA Attending Unavailab le TIESHA, SJ KORY MOUNIR Primary Care Maite vailable LUIS EDUARDO COLLIERR Attending Unavail able TIESHA, SJ KORY MOUNIR Primary Care Maite vailable TIESHA, SJ KORY MOUNIR Primary Care Maite vailable OTF CHAN Attending Unavailab le TIESHA, SJ KORY MOUNIR Attending Maite vailable TIESHA, SJ KORY MOUNIR Primary Care Maite vailable TIESHA, SJ KORY MOUNIR Attending Maite vailable TIESHA, SJ KORY MOUNIR Primary Care Maite vailable DAY, ZHAO BARBOSA Attending Unavailable DAY, ZHAO BARBOSA Referring Unavailable TIESHA, SJ KORY MOUNIR Primary Care Maite vailable TEMUSAMEERA Admitting Unavailable TEMU, SAMEERA HAGAN Attending Unavailable CHOPKO, LUIS EDUARDO WOLODYMYR Consulting Unavail able CHOPKO, LUIS EDUARDO VOGTODYMYR Referring Unavail able TIESHA, SJ KORY MOUNIR Primary Care Maite vailable JACKELYN ISAACS Consulting Unavailable JUNITO, JEISON Consulting Unavailable JOVANNA VALENCIA Consulting Unavailab pushpa DURAIRASHEILA Wolff Admitting Unavailable HASJUANJO FRANKS Referring Unavaila MARY Sullivan Attending Unavailable TIESHA, SJ KORY MOUNIR Primary Care Maite vailable SAMEERA GREER Attending Unavailable LEANA WILL Referring Unavailab le CREASAPGADIEL Admitting Unavailab le TIESHA, SJ KORY MOUNIR Primary Care Maite vailable TIESHA, SJ KORY MOUNIR Primary Care Maite vailable CHOPKO, LUIS EDUARDO GONSALVES Admitting Unavail able LUIS EDUARDO COLLIER Attending Unavail able JUNITO, JEISON Attending Unavailable JEISON WILD Admitting Unavailable TIESHA, SJ KORY MOUNIR Primary Care Maite vailable TIESHA, SJ KORY MOUNIR Primary Care Maite vailable RICHKO, LUIS EDUARDOLeeann GONSALVES Consulting Unavail able GADIEL SIMON Referring Unava ilable JOSEPH DOWNEY Admitting Unavai lable SHAYAN, JOSEPH GOMEZ Attending Unavai lable Allergies Allergy Classification Reported Allergen(s) Allergy Type Date of Onset Reaction(s) Facility by mouth once daily 10 mg, Oral, Daily, First dose on 12/04/24 at 0900 Start: 11-17-2017 take 1 tablet by matteo once daily loratadine 10 MG Tab tablet Indications: Allergic rhinitis due to other allergic trigger, unspecified seasonality , Postnasal drip , Dysfunction of both eustachian tubes Take 1 tablet by mouth daily. 30 tablet 2 11/17/2017 Active magnesium hydroxide 80 mg/ml oral suspension (1 source) Start: 12-04-2024 End: 12-13-2024 2,400 mg (30 mL), Oral, Daily PRN, constipation, Starting on 12/04/24 at 0424, If no bowel movement in 24 hours after Sennosides (SENNA) administration. magnesium oxide 400 mg oral tablet (20 sources) Start: 12-09-2024 End: 12-13-2024 take 400 mg by mouth twice daily 400 mg, Oral, 2 times daily, First dose (after last modification) on Thu12/09/24 at 1900 Start: 12-07-2024 End: 12-09-2024 take 200 mg by mouth twice daily 200 mg, Oral, 2 times daily, First dose on Thu12/07/24 at 1200 Start: 10-26-2024 End: 10-27-2024 take 400 mg by mouth once daily 400 mg, Oral, Nightly, First dose on Thu10/26/24 at 2100 Start: 07-29-2019 take 1000 mg by mouth at bedti me Magnesium Oxide Active 1000 MG PO AT BEDTIME July 29, 2019 5:03pm Start: 04-05-2018 End: 07-29-2019 take 500 mg by mouth twice daily Magnesium Oxide Disco ntinued 500 MG PO TWICE A DAY 180 April 06, 2018 8:37am July 29, 2019 5:03pm Start: 01-28-2018 End: 04-05-2018 take 2 capsules by mouth once daily magnesium oxide 400 mg capsule Discontinued 800 MG PO daily January 28, 2018 4:40pm April 05, 2018 3:14pm Start: 07-20-2015 End: 10-31-2024 magnesium oxide (MAG-OX) 400 mg tablet Take 2.5 (two and a half) tablets (1,000 mg total) by mouth nightly . 07/20/2015 10/31/2024 Discontinued (Patient's Request) Start: 07-20-2015 take 2 tablets by mo [facility] once daily magnesium oxide (MAG-OX) 400 mg tablet Take 2 (two) tablets (800 mg total) by mouth nightly . 0 07/20/2015 Active take 1 tablet by matteo once daily magnesium oxide 400 (241.3 Mg) MG Tab tablet Take 1 tablet by mouth daily. Active take 1 tablet by matteo th once daily magnesium oxide 400 (241.3 Mg) MG Tab tablet Take 1 tablet by mouth daily. 0 Active take 1 tablet by matteo once daily magnesium oxide 400 (241.3 Mg) MG Tab tablet Take 400 mg by mouth daily. 0 Active 50 ml magnesium sulfate 40 mg/ml injection (2 sources) Start: 12-08-2024 End: 12-09-2024 2 g, Intravenous, at 25 mL/hr, Once, On Thu12/09/24 at 1215, For 1 dose, Indication: Hypomagnesemia melatonin 5 mg oral tablet (4 sources) Start: 12-10-2024 End: 12-13-2024 take 10 mg by mouth once daily as needed for sleep 10 mg, Oral, Nightly PRN, sleep, Starting on 12/10/24 at 1937 Start: 10-25-2024 End: 10-27-2024 take 5 mg by mouth once daily as needed for sleep 5 mg, Oral, Nightly PRN, Sleep, Starting on Thu10/25/24 at 0035 take 10 mg by mouth once daily m elatonin 1 mg Tab Take 10 mg by mouth nightly . 0 Active methocarbamol 500 mg oral tablet (9 sources) Muscle Relaxant Start: 08-24-2018 End: 04-30-2020 take 500 mg by mouth twice daily Methocarbamol Discontinued 500 MG PO TWICE A DAY 60 September 23, 2018 10:23am April 30, 2020 1:41pm metroNIDAZOLE 0.01 mg/mg topical gel (20 sources) Nitroimidazole Antimicrobial Start: 02-10-2023 End: 11-16-2024 metroNIDAZOLE (METROGEL) 1 % gel Apply once daily to entire face 02/10/2023 11/16/2024 Discontinued (Patient Discharge) Start: 12-10-2018 End: 04-30-2020 Metronidazole Discontinued 1 APPLIC TOPICAL TWICE A DAY 45 November 18, 2019 10:33am April 30, 2020 1:41pm metronidazole 0. 75 % Cream cream Apply 1 Application topically 2 times daily. For rasacea 0 Active 1 ml morphine sulfate 2 mg/ml prefilled syringe (1 source) Opioid Agonist Start: 10-25-2024 End: 10-27-2024 take 1 mg intravenously every four hours as needed 1 mg, Intravenous, Every 4 hours PRN, moderate to severe pain, Starting on Thu10/25/24 at 0254 Multivitamin,Tx- Iron-Minerals (Therems-M) 27-0.4 mg tablet (18 sources) Start: 05-22-2020 End: 12-17-2020 take 1 tablet by mouth once daily Multivitamin,Tx-Ir on-Minerals (Therems-M) 27-0.4 mg tablet Discontinued 1 TABLET PO DAILY May 22, 2020 12:43pm December 17, 2020 9:43am administer with a meal Start: 05-22-2020 End: 12-17-2020 take 1 tablet by mouth once daily Multivitamin,Og-Abid-Nnutpmuy (Therems-M ) 27-0.4 mg tablet Discontinued 1 TABLET PO DAILY May 22, 2020 12:00am December 17, 2020 9:43am administer with a meal Start: 09-07-2019 End: 04-30-2020 take 1 tablet by mouth once daily Multivitamin,Tf-Nfnt-Llrzmoum (Therems-M ) 27-0.4 mg tablet Discontinued 0 .ROUTE .COMPLEX September 07, 2019 9:24am April 30, 2020 1:40pm take 1 tablet by mouth once daily Start: 03-09-2019 End: 09-07-2019 take 1 tablet by mouth once daily Multivitamin,Mb-Hujm-Xvwqiloo (Therems-M ) 27-0.4 mg tablet Discontinued 1 TABLET PO daily March 09, 2019 5:35pm September 07, 2019 9:24am Start: 09-17-2018 End: 03-09-2019 take 1 tablet by mouth once daily Multivitamin,Lm-Bnvb-Obmgzdhp (Therems-M ) 27-0.4 mg tablet Discontinued 1 TABLET PO daily September 17, 2018 12:18pm March 09, 2019 5:36pm Start: 02-16-2018 End: 09-17-2018 take 1 tablet by mouth once daily Multivitamin,Dh-Bmjn-Qcrqgrti (Therems-M ) 27-0.4 mg tablet Discontinued 1 TABLET PO daily February 16, 2018 4:08pm September 17, 2018 12:18pm Start: 02-16-2018 End: 02-16-2018 take 1 tablet by mouth once daily Multivitamin,Hh-Lrbk-Bdbbkelq (Therems-M ) 27-0.4 mg tablet Discontinued 1 TABLET PO daily February 16, 2018 3:28pm February 16, 2018 4:08pm Start: 02-16-2018 End: 02-16-2018 take 1 tablet by mouth once daily Multivitamin,Ux-Epob-Wcnkhgtt (Therems-M ) 27-0.4 mg tablet Discontinued 1 TABLET PO daily February 16, 2018 12:00am February 16, 2018 4:08pm nabumetone 500 mg oral tablet (12 sources) Nonsteroidal Anti-inflammatory Drug Start: 09-14-2020 End: 08-26-2021 take 500 mg by mouth twice daily Nabumetone Discontinued 500 MG PO TWICE A DAY 60 May 20, 2021 11:32am August 26, 2021 4:26pm Start: 05-22-2020 End: 09-14-2020 Nabumetone Discontinued EACH PO May 22, 2020 12:37pm September 14, 2020 12:19pm Start: 11-28-2019 End: 04-30-2020 take 500 mg by mouth twice daily Nabumetone Discontinued 500 MG PO TWICE A DAY November 28, 2019 1:05pm April 30, 2020 1:40pm naloxone (NARCAN) injection 0.1 mg (2 sources) Start: 12-04-2024 End: 12-13-2024 naloxone (NARCAN) injection 0.1 mg Start: 10-25-2024 End: 10-27-2024 naloxone (NARCAN) injection 0.1 mg nystatin 372018 unt/ml oral suspension (3 sources) Polyene Antifungal Start: 09-25-2021 End: 10-23-2021 take 1 mL by mouth every six hours Nystatin Discontinued 4 ML PO EVERY 6 HOURS 473 28 September 25, 2021 1:08pm October 23, 2021 1:03am swish and swallow omega-3 acid ethyl esters (shelter) 1000 mg oral capsule (10 sources) Start: 05-22-2020 End: 09-27-2020 take 1 capsule by mouth once daily [place] 6-Qfz-Rug-Fish Oil (Fish Oil) 1,000 mg (120 mg-180 mg) capsule Discontinued 1 CAP PO DAILY May 22, 2020 12:37pm September 27, 2020 3:27pm Start: 06-17-2017 take 1 capsule by [facility] three times daily [place]-3 Fatty Acids (FISH OIL) 1200 MG Cap Take 1 capsule by mouth 3 times daily. 30 capsule 11 06/17/2017 Active omega-3 fatty acids-fish oil 360-1,200 mg cap (20 sources) Start: 02-05-2023 End: 03-02-2024 omega-3 fatty acids-fish oil 360-1,200 mg cap Indications: Hyperlipidemia, unspecified hyperlipidemia type Daily . 90 capsule 1 02/05/2023 03/02/2024 Discontinued (Patient's Request) Start: 02-05-2023 omega-3 fatty acids-fish oil 360-1,200 mg cap Indications: Hyperlipidemia, unspecified hyperlipidemia type Daily . 90 capsule 1 02/05/2023 Active Start: 11-01-2021 omega-3 fatty acids-fish oil 360-1,200 mg cap Take by mouth 3 (three) times a day . 0 11/01/2021 Active ondansetron (ZOFRAN-ODT) disintegrating tablet 4 mg (1 source) Start: 12-04-2024 End: 12-13-2024 take 1 tablet by mouth every six hours as needed for nausea and vomiting ondansetron (ZOFRAN-ODT) disintegrating tablet 4 mg pantoprazole 40 mg delayed release oral tablet (20 sources) Proton Pump Inhibitor Start: 12-04-2024 End: 12-13-2024 take 40 mg by mouth once daily 40 mg, Oral, Daily, First dose on Thu12/04/24 at 0900, DO NOT CRUSH OR CHEW. Start: 10-23-2021 End: 02-13-2022 take 1 tablet by mouth once daily pantoprazole (PROTONIX) 20 MG tablet Take 1 (one) tablet (20 mg total) by mouth daily Start: 10/23/21. 30 tablet 0 10/23/2021 02/13/2022 Discontinued (Patient's Request) pantoprazole (PROTONIX) Vial 40 mg (1 source) Start: 10-25-2024 End: 10-27-2024 40 mg, Intravenous, Daily, First dose on Thu10/25/24 at 0900, Dilute each vial with 10 mL of 0.9% NaCl. pilocarpine hydrochloride 5 mg oral tablet (20 sources) Cholinergic Receptor Agonist Start: 02-05-2023 End: 05-06-2023 take 1 tablet by mouth three times daily pilocarpine (SALAGEN) 5 MG tablet Take 1 (one) tablet (5 mg total) by mouth 3 (three) times a day . 90 tablet 2 02/05/2023 03/19/2023 Discontinued (Patient's Request) Start: 01-28-2018 End: 08-12-2021 take 1 tablet by mouth three times daily pilocarpine (SALAGEN) 5 MG tablet Take 1 (one) tablet (5 mg total) by mouth 3 (three) times a day . 0 02/23/2018 Active 100 ml potassium chloride 0.2 meq/ml injection (1 source) Start: 10-25-2024 End: 10-25-2024 take 20 mEq intravenously every two hours 20 mEq, Intravenous, at 50 mL/hr, Every 2 hours, First dose on Thu10/25/24 at 1200, For 2 doses, For Non-Critical Care Patient give potassium chloride (KCL) 20 mEq IVPB x 2 bags over 2 hours each for a total dose of 40 mEq VESICANT RA DIGESTIVE ENZYME 100CT (6 sources) Start: 07-29-2019 End: 04-30-2020 take 1 tablet by mouth three times daily at mealtime RA DIGESTIVE ENZYME 100CT Discontinued 1 CAP PO THREE TIMES A DAY July 29, 2019 5:15pm April 30, 2020 1:40pm TAKE 1 TABLET BY MOUTH THREE TIMES A DAY WITH EACH MEAL Start: 07-29-2019 End: 04-30-2020 take 1 tablet by mouth three times daily at mealtime RA DIGESTIVE ENZYME 100CT Discontinued 1 CAP PO THREE TIMES A DAY July 29, 2019 5:03pm April 30, 2020 1:40pm TAKE 1 TABLET BY MOUTH THREE TIMES A DAY WITH EACH MEAL Start: 05-19-2019 End: 07-29-2019 take 1 tablet by mouth three times daily at mealtime RA DIGESTIVE ENZYME 100CT Discontinued 0 .ROUTE .COMPLEX 270 May 19, 2019 10:08am July 29, 2019 5:03pm TAKE 1 TABLET BY MOUTH THREE TIMES A DAY WITH EACH MEAL roflumilast 0.5 mg oral tablet (20 sources) Phosphodiesterase 4 Inhibitor Start: 06-25-2021 End: 02-13-2022 take 1 tablet by mouth once daily Roflumilast (Daliresp) 500 mcg tablet Discontinued 500 MCG PO DAILY August 21, 2021 1:41pm January 27, 2022 3:14pm sennosides, shelter 8.6 mg oral tablet (1 source) Start: 12-04-2024 End: 12-06-2024 take 1 tablet by mouth twice daily 8.6 mg (1 tablet), Oral, 2 times daily, First dose on Thu12/04/24 at 0900 SUMAtriptan 100 mg oral tablet (9 sources) Serotonin-1b and Serotonin-1d Receptor Agonist Start: 02-20-2023 End: 02-20-2024 take 1 tablet by mouth every two hours as needed SUMAtriptan (IMITREX) 100 MG tablet Take 1 (one) tablet (100 mg total) by mouth every 2 (two) hours as needed for migraine Max of 200 mg in 24hrs . 10 tablet 0 02/20/2023 03/19/2023 Discontinued (Patient's Request) Start: 01-06-2023 End: 01-06-2024 SUMAtriptan (IMITREX) 50 MG tablet Indications: Migraine without status migrainosus, not intractable, unspecified migraine type Take 1 (one) tablet (50 mg total) by mouth every 2 (two) hours as needed for migraine Max of 200 mg in 24hrs, do not treat more than 3 times a week . 10 tablet 0 01/06/2023 01/06/2024 Active therapeutic multivitamin (THERAGRAN) tablet (20 sources) End: 02-13-2022 take 1 tablet by mouth once daily therapeutic multivitamin (THERAGRAN) tablet Take 1 tablet by mouth daily. 0 02/13/2022 Discontinued (Patient's Request) take 1 tablet by mouth once eric y therapeutic multivitamin (THERAGRAN) tablet Take 1 tablet by mouth daily. 0 Active Therems-A (3 sources) Start: 02-05-2018 End: 02-16-2018 take 1 tablet by mouth once daily Therems-A Discontinued 1 TABLET PO DAILY February 05, 2018 10:54am February 16, 2018 3:28pm Start: 02-05-2018 End: 02-16-2018 take 1 tablet by mouth once daily Therems-A Discontinued 1 TABLET PO DAILY February 05, 2018 12:00am February 16, 2018 3:28pm levothyroxine sodium 0.075 mg oral tablet (20 sources) l-Thyroxine Start: 12-04-2024 End: 12-13-2024 take 30 mL by mouth once daily 75 mcg, Oral, Every morning, First dose (after last modification) on Thu12/06/24 at 0900, Avoid administration with soybean flour, cottonseed meal, walnuts, and dietary fiber. Administer at least 1 hour before breakfast. Hold continuous tube feeds for at least 1 hour before until 1 hour after each dose. Flush tube with 30mL of water before and after administration. Tube feed rate may need adjusted to meet caloric needs. Start: 10-26-2024 End: 10-27-2024 take 30 mL by mouth once daily 75 mcg, Oral, Every mor chris, First dose on Thu10/26/24 at 1015, Avoid administration with soybean flour, cottonseed meal, walnuts, and dietary fiber. Administer at least 1 hour before breakfast. Hold continuous tube feeds for at least 1 hour before until 1 hour after each dose. Flush tube with 30mL of water before and after administration. Tube feed rate may need adjusted to meet caloric needs. Start: 06-17-2017 End: 11-01-2024 take 1 tablet by mouth once daily in the morning levothyroxine (SYNTHROID, LEVOTHROID) 75 MCG tablet Indications: Hypothyroidism (acquired) Take 1 (one) tablet (75 mcg total) by mouth every morning DOS . 90 tablet 1 11/01/2024 Active Start: 03-03-2016 End: 03-19-2018 levothyroxine (SYNTHROID, LE VOTHROID) 88 MCG tablet Take 88 mcg by mouth. 03/03/2016 03/19/2018 Discontinued tiotropium 0.018 mg inhalation powder (20 sources) Anticholinergic Start: 05-21-2018 End: 08-30-2021 take 1 capsule by inhalation once daily Tiotropium [place] Discontinued 1 CAP INHALATION DAILY September 22, 2018 9:25am October 12, 2018 6:42pm Start: 02-05-2018 End: 05-21-2018 take 1 puff(s) by inhalation once daily Tiotropium [place] Discontinued 1 PUFF INHALATION DAILY February 05, 2018 10:54am May 21, 2018 1:32pm 1 ml triamcinolone acetonide 40 mg/ml injection (12 sources) Corticosteroid Start: 03-02-2024 End: 03-04-2024 40 mg, Intra-articular, Starting on Thu03/02/24 at 1300 Start: 11-09-2023 End: 11-09-2023 triamcinolone acetonide (ELVA ALOG-40) injection 40 mg Start: 06-25-2023 End: 06-25-2023 triamcinolone acetonide (ELVA ALOG-40) injection 40 mg Start: 03-20-2023 End: 03-20-2023 triamcinolone acetonide (ELVA ALOG-40) injection 40 mg Start: 09-29-2022 End: 09-29-2022 triamcinolone acetonide (ELVA ALOG-40) injection 40 mg Start: 09-22-2022 End: 09-22-2022 triamcinolone acetonide (ELVA ALOG-40) injection 40 mg Start: 02-13-2022 End: 02-13-2022 triamcinolone acetonide (ELVA ALOG-40) injection 40 mg varenicline 1 mg oral tablet (3 sources) Partial Cholinergic Nicotinic Agonist Start: 12-10-2018 End: 01-17-2019 take 1 tablet by mouth once Varenicline (Chantix Starting Month Box) 0.5 mg (11)- 1 mg (42) tablets,dose pack Discontinued 0 PO per package directions 53 December 10, 2018 2:15pm January 17, 2019 1:55pm PO PER PKG DIR 24 hr venlafaxine 75 mg extended release oral capsule (1 source) Serotonin and Norepinephrine Reuptake Inhibitor Start: 12-04-2024 End: 12-12-2024 take 150 mg by mouth once daily at breakfast 150 mg, Oral, Daily with breakfast, First dose on 12/04/24 at 0800, DO NOT CRUSH OR CHEW. Problems Active Problems Problem Classification Problem Date Documented Date Episodic/Chronic Acute bronchitis (4 sources) Acute bronchitis; Translations: [Acute bronchitis, unspecified] Episodic Acute cerebrovascular disease (20 sources) Hemorrhage into subarachnoid space of neuraxis; Translations: [Nontraumatic subarachnoid hemorrhage, unspecified] Onset: 05-31-2024 06-14-2024 Chronic Administrative/social admission (1 source) Patient encounter status; Translations: [Persons encountering health services in other specified circumstances] 04-06-2023 Episodic Allergic reactions (3 sources) Inflammatory dermatosis; Translations: [Dermatitis, unspecified] Episodic Anxiety disorders (20 sources) Post-traumatic stress disorder, unspecified; Translations: [Mixed anxiety and depressive disorder] Onset: 09-17-2002 05-20-2016 Chronic Asthma (9 sources) Asthmatic bronchitis; Translations: [Unspecified asthma with (acute) exacerbation] Onset: 04-28-2024 Chronic Cardiac dysrhythmias (20 sources) Paroxysmal atrial fibrillation; Translations: [Paroxysmal atrial fibrillation] Onset: 05-07-2023 Chronic Chronic obstructive pulmonary disease and bronchiectasis (20 sources) Chronic obstructive lung disease; Translations: [Chronic obstructive pulmonary disease, unspecified] Onset: 05-20-2016 05-20-2016 Chronic Coagulation and hemorrhagic disorders (3 sources) Blood coagulation disorder; Translations: [Hemorrhagic condition, unspecified] Episodic Coronary atherosclerosis and other heart disease (20 sources) Coronary arteriosclerosis; Translations: [Coronary atherosclerosis] Onset: 05-20-2016 05-20-2016 Chronic Deficiency and other anemia (3 sources) Anemia; Translations: [Anemia, unspecified] Episodic Delirium, dementia, and amnestic and other cognitive disorders (4 sources) Dementia; Translations: [Unspecified dementia without behavioral disturbance] Onset: 12-04-2024 12-13-2024 Chronic Diabetes mellitus without complication (20 sources) Type 2 diabetes mellitus; Translations: [Type 2 diabetes mellitus without complications] Onset: 05-20-2016 05-20-2016 Chronic Diabetes mellitus without complication (3 sources) Hyperglycemia, unspecified; Translations: [Prediabetes] Onset: 06-17-2017 12-25-2023 Episodic Disorders of lipid metabolism (19 sources) Pure hypercholesterolemia; Translations: [Hyperlipidemia] Onset: 03-19-2018 03-19-2018 Chronic Esophageal disorders (20 sources) Gastroesophageal reflux disease; Translations: [Gastro-esophageal reflux disease without esophagitis] Onset: 05-20-2016 05-20-2016 Chronic Essential hypertension (6 sources) Essential hypertension; Translations: [Hypertensive disorder] Chronic Genitourinary symptoms and ill-defined conditions (3 sources) Incomplete emptying of bladder; Translations: [Retention of urine, unspecified] Episodic Glaucoma (3 sources) Glaucoma; Translations: [Unspecified glaucoma] Chronic Gout and other crystal arthropathies (6 sources) Calcium pyrophosphate deposition disease; Translations: [Other chondrocalcinosis, unspecified site] 07-06-2023 Chronic Headache; including migraine (20 sources) Migraine; Translations: [Migraine, unspecified, not intractable, without status migrainosus] Onset: 01-06-2023 01-06-2023 Chronic Headache; including migraine (3 sources) Chronic headache disorder; Translations: [Chronic headache] Episodic Headache; including migraine (2 sources) Headache; including migraine; Translations: [Headache, unspecified] Onset: 09-30-2024 Joint disorders and dislocations; trauma-related (2 sources) Unspecified internal derangement of unspecified knee; Translations: [Unspecified internal derangement of unspecified knee] Onset: 06-17-2017 Chronic Malignant neoplasm without specification of site (4 sources) Malignant neoplastic disease; Translations: [Malignant (primary) neoplasm, unspecified] 09-17-2023 Chronic Mood disorders (20 sources) Depressive disorder; Translations: [Depression] Onset: 11-25-2022 11-25-2022 Chronic Nutritional deficiencies (2 sources) Vitamin D deficiency, unspecified; Translations: [Vitamin D deficiency, unspecified] Onset: 06-17-2017 Chronic Nutritional deficiencies (3 sources) Vitamin deficiency; Translations: [Vitamin deficiency, unspecified] Episodic Osteoarthritis (20 sources) Primary gonarthrosis, bilateral; Translations: [Osteoarthritis of left hip joint] Onset: 08-05-2021 Chronic Osteoporosis (20 sources) Age-related osteoporosis without current pathological fracture; Translations: [Osteoporosis] Onset: 06-17-2017 11-25-2022 Chronic Other acquired deformities (3 sources) Cervical kyphosis; Translations: [Unspecified kyphosis, cervical region] 09-16-2024 Chronic Other acquired deformities (18 sources) Kyphosis deformity of spine; Translations: [Unspecified kyphosis, site unspecified] Onset: 09-16-2024 09-16-2024 Chronic Other acquired deformities (2 sources) Unspecified kyphosis, cervical region; Translations: [Unspecified kyphosis, cervical region] Onset: 09-16-2024 Chronic Other bone disease and musculoskeletal deformities (20 sources) Avascular necrosis of bone; Translations: [Idiopathic aseptic necrosis of unspecified bone] Onset: 08-05-2021 Chronic Other bone disease and musculoskeletal deformities (3 sources) Avascular necrosis of bone of hip; 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] Chronic Other bone disease and musculoskeletal deformities (12 sources) Segmental and somatic dysfunction; Translations: [Segmental and somatic dysfunction of cervical region] Episodic Other bone disease and musculoskeletal deformities (3 sources) Osteopenia; Translations: [Other specified disorders of bone density and structure, unspecified site] Episodic Other connective tissue disease (1 source) History of repair of hip joint; Translations: [Presence of left artificial hip joint] Chronic Other connective tissue disease (5 sources) History of total hip arthroplasty; Translations: [Presence of left artificial hip joint] Chronic Other connective tissue disease (5 sources) Pain in right finger(s); Translations: [Pain in left finger(s)] Onset: 06-17-2017 Episodic Other connective tissue disease (1 source) Tendinitis Episodic Other connective tissue disease (3 sources) Swelling of left lower limb; Translations: [Other specified soft tissue disorders] Episodic Other connective tissue disease (3 sources) Trochanteric bursitis; Translations: [Trochanteric bursitis, left hip] Episodic Other connective tissue disease (3 sources) Iliotibial band friction syndrome; Translations: [Iliotibial band syndrome, unspecified leg] Episodic Other connective tissue disease (1 source) Calcific tendinitis; Translations: [Calcific tendinitis, unspecified site] Episodic Other connective tissue disease (7 sources) Impingement syndrome of left shoulder region; Translations: [Impingement syndrome of left shoulder] Episodic Other connective tissue disease (7 sources) Impingement syndrome of right shoulder region; Translations: [Impingement syndrome of right shoulder] Episodic Other connective tissue disease (1 source) Muscle pain; Translations: [Myalgia, unspecified site] 08-05-2023 Episodic Other connective tissue disease (1 source) Non-traumatic partial tear of left rotator cuff; Translations: [Incomplete rotator cuff tear or rupture of left shoulder, not specified as traumatic] 03-04-2024 Episodic Other connective tissue disease (2 sources) Repeated falls; Translations: [Repeated falls] Onset: 12-03-2024 Episodic Other connective tissue disease (3 sources) Pain of bilateral upper limbs; Translations: [Pain in both upper extremities] Onset: 07-24-2015 07-16-2017 Other diseases of kidney and ureters (11 sources) Renal mass; Translations: [Other specified disorders of kidney and ureter] Onset: 07-16-2017 07-16-2017 Chronic Other ear and sense organ disorders (20 sources) Hearing loss; Translations: [Unspecified hearing loss, unspecified ear] Onset: 05-15-2022 Chronic Other ear and sense organ disorders (10 sources) Sensorineural hearing loss, bilateral; Translations: [Sensorineural hearing loss, bilateral] Chronic Other ear and sense organ disorders (20 sources) Hearing change; Translations: [Unspecified hearing loss, bilateral] Onset: 05-15-2022 05-15-2022 Chronic Other fractures (1 source) Closed fracture sacrum; Translations: [Unspecified fracture of sacrum, initial encounter for closed fracture] 07-03-2024 Episodic Other fractures (4 sources) Fracture of twelfth thoracic vertebra; Translations: [Wedge compression fracture of T11-T12 vertebra, subsequent encounter for fracture with nonunion] Onset: 01-03-2025 01-03-2025 Episodic Other fractures (1 source) Closed fracture lumbar vertebra, wedge ; Translations: [Wedge compression fracture of first lumbar vertebra, subsequent encounter for fracture with nonunion] 01-03-2025 Episodic Other fractures (3 sources) Closed fracture of first lumbar vertebra; Translations: [Unspecified fracture of first lumbar vertebra, initial encounter for closed fracture] Onset: 01-03-2025 01-03-2025 Episodic Other inflammatory condition of skin (3 sources) Rosacea; Translations: [Rosacea, unspecified] Chronic Other lower respiratory disease (3 sources) Solitary nodule of lung; Translations: [Solitary pulmonary nodule] Episodic Other lower respiratory disease (1 source) Solitary pulmonary nodule; Translations: [Solitary pulmonary nodule] Episodic Other nervous system disorders (3 sources) Neuropathy; Translations: [Polyneuropathy, unspecified] Chronic Other nervous system disorders (8 sources) Bilateral carpal tunnel syndrome; Translations: [Carpal tunnel syndrome, bilateral upper limbs] Onset: 07-24-2015 07-16-2017 Chronic Other nervous system disorders (2 sources) Other chronic pain; Translations: [Other chronic pain] Onset: 07-12-2024 Chronic Other nervous system disorders (2 sources) Disease of spinal cord, unspecified; Translations: [Disease of spinal cord, unspecified] Onset: 02-22-2025 Chronic Other nervous system disorders (4 sources) Ataxia; Translations: [Ataxia, unspecified] 09-16-2024 Episodic Other nervous system disorders (7 sources) Carpal tunnel syndrome, bilateral upper limbs; Translations: [Bilateral carpal tunnel syndrome] Onset: 07-24-2015 07-16-2017 Other non-epithelial cancer of skin (3 sources) Malignant neoplasm of skin; Translations: [Unspecified malignant neoplasm of skin, unspecified] Episodic Other non-traumatic joint disorders (3 sources) Chronic ankle pain; Translations: [Pain in left ankle and joints of left foot] Episodic Other non-traumatic joint disorders (3 sources) Ankle pain; Translations: [Pain in unspecified ankle and joints of unspecified foot] Episodic Other non-traumatic joint disorders (1 source) Pain in right knee; Translations: [Pain in joint, lower leg] Episodic Other non-traumatic joint disorders (1 source) Multiple joint pain; Translations: [Pain in unspecified joint] 07-06-2023 Episodic Other non-traumatic joint disorders (1 source) Pain in left shoulder; Translations: [Pain in joint, shoulder region] 12-25-2023 Episodic Other upper respiratory disease (20 sources) Allergic rhinitis; Translations: [Allergic rhinitis, unspecified] Onset: 05-20-2016 05-20-2016 Chronic Other upper respiratory disease (3 sources) Seasonal allergy; Translations: [Other seasonal allergic rhinitis] Chronic Other upper respiratory disease (1 source) Other seasonal allergic rhinitis; Translations: [Allergic rhinitis, cause unspecified] Chronic Other upper respiratory infections (20 sources) Chronic maxillary sinusitis; Translations: [Chronic maxillary sinusitis] Onset: 05-15-2022 Chronic Residual codes; unclassified (3 sources) Tobacco user; Translations: [Tobacco use] Episodic Screening and history of mental health and substance abuse codes (1 source) Personal history of nicotine dependence; Translations: [Personal history of tobacco use] 09-14-2023 Episodic Spondylosis; intervertebral disc disorders; other back problems (20 sources) Degeneration of lumbar intervertebral disc; Translations: [Other intervertebral disc degeneration, lumbar region] Onset: 05-21-2024 09-16-2024 Chronic Substance-related disorders (3 sources) Cigarette smoker ; Translations: [Nicotine dependence, cigarettes, uncomplicated] Chronic Thyroid disorders (20 sources) Nontoxic multinodular goiter; Translations: [Hypothyroidism, unspecified] Onset: 05-20-2016 05-20-2016 Chronic Unclassified (4 sources) Encounter for screening mammogram for malignant neoplasm of breast; Translations: [Patient encounter status] Onset: 06-17-2017 09-14-2023 Episodic Unclassified (1 source) Cough, unspecified; Translations: [Cough, unspecified] Onset: 09-30-2023 Unclassified (2 sources) [place] Onset: 11-15-2024 Past or Other Problems Problem Classification Problem Date Documented Da te Episodic/Chronic Abdominal pain (2 sources) Unspecified abdominal pain; Translations: [Unspecified abdominal pain] Onset: Episodic Cardiac dysrhythmias (20 sources) Palpitations; Translations: [Palpitations] Onset: 8 03-19-2018 Episodic Deficiency and other anemia (2 sources) Iron deficiency anemia, unspecified; Translations: [Iron deficiency anemia, unspecified] Onset: 7 Episodic Disorders of teeth and jaw (20 sources) Temporomandibular joint disorder; Translations: [Unspecified temporomandibular joint disorder, unspecified side] Onset: 2 05-15-2022 Episodic E Codes: Fall (2 sources) Unspecified fall, initial encounter; Translations: [Unspecified fall, initial encounter] Onset: 4 Episodic Fluid and electrolyte disorders (2 sources) Hypo-osmolality and hyponatremia; Translations: [Hypo-osmolality and hyponatremia] Onset: 5 Episodic Gastritis and duodenitis (2 sources) Gastritis, unspecified, without bleeding; Translations: [Gastritis, unspecified, without bleeding] Onset: 5 Episodic Immunizations and screening for infectious disease (6 sources) Contact with and (suspected) exposure to other viral communicable diseases; Translations: [Exposure to SARS-associated coronavirus] Onset: 2 Episodic Intracranial injury (2 sources) Traumatic subarachnoid hemorrhage without loss of consciousness, initial encounter; Translations: [Traumatic subarachnoid hemorrhage without loss of consciousness, initial encounter] Onset: 4 Episodic Malaise and fatigue (13 sources) Asthenia; Translations: [Weakness] Onset: 5 12-13-2024 Episodic Mood disorders (20 sources) Mood disorders Onset: 4 01-27-2024 Mycoses (20 sources) Candidiasis of mouth; Translations: [Candidal stomatitis] Onset: 2 05-15-2022 Episodic Nausea and vomiting (2 sources) Nausea with vomiting, unspecified; Translations: [Nausea with vomiting, unspecified] Onset: 5 Episodic Other bone disease and musculoskeletal deformities (2 sources) Segmental and somatic dysfunction of lumbar region; Translations: [Segmental and somatic dysfunction of lumbar region] Onset: 4 Episodic Other connective tissue disease (12 sources) Pain in right arm; Translations: [Pain of bilateral upper limbs] Onset: 5 07-16-2017 Episodic Other connective tissue disease (15 sources) Fibromyalgia; Translations: [Fibromyalgia] Onset: 5 07-16-2017 Episodic Other connective tissue disease (20 sources) Bilateral impingement syndrome of shoulders; Translations: [Impingement syndrome of right shoulder] Onset: 3 Episodic Other connective tissue disease (20 sources) Cramp; Translations: [Cramp and spasm] Onset: 3 02-05-2023 Episodic Other connective tissue disease (20 sources) Impingement syndrome of shoulder region; Translations: [Impingement syndrome of unspecified shoulder] Onset: 4 12-04-2023 Episodic Other diseases of kidney and ureters (7 sources) Renal mass; Translations: [Renal mass, left] Onset: 7 07-16-2017 Episodic Other ear and sense organ disorders (20 sources) Otalgia of left ear; Translations: [Otalgia, left ear] Onset: 2 05-15-2022 Episodic Other ear and sense organ disorders (20 sources) Otalgia, left ear; Translations: [Otalgia, unspecified] Onset: 2 05-15-2022 Episodic Other fractures (20 sources) Compression fracture of L2; Translations: [Wedge compression fracture of second lumbar vertebra, subsequent encounter for fracture with routine healing] Onset: 4 06-14-2024 Episodic Other fractures (2 sources) Collapsed vertebra, not elsewhere classified, site unspecified, initial encounter for fracture; Translations: [Collapsed vertebra, not elsewhere classified, site unspecified, initial encounter for fracture] Onset: 5 Episodic Other fractures (4 sources) Wedge compression fracture of second lumbar vertebra, subsequent encounter for fracture with routine healing; Translations: [Wedge compression fracture of second lumbar vertebra, subsequent encounter for fracture with routine healing] Onset: 4 Episodic Other fractures (2 sources) Wedge compression fracture of unspecified lumbar vertebra, initial encounter for closed fracture; Translations: [Wedge compression fracture of unspecified lumbar vertebra, initial encounter for closed fracture] Onset: 4 Episodic Other fractures (2 sources) Wedge compression fracture of unspecified thoracic vertebra, initial encounter for closed fracture; Translations: [Wedge compression fracture of unspecified thoracic vertebra, initial encounter for closed fracture] Onset: 4 Episodic Other gastrointestinal disorders (20 sources) Dysphagia; Translations: [Dysphagia, unspecified] Onset: 3 08-05-2023 Episodic Other gastrointestinal disorders (2 sources) Diarrhea, unspecified; Translations: [Diarrhea, unspecified] Onset: 5 Episodic Other lower respiratory disease (20 sources) Asthma; 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] Onset: 3 11-25-2022 Episodic Other lower respiratory disease (20 sources) Wheezing; Translations: [Wheezing] Onset: 3 05-07-2023 Episodic Other nervous system disorders (20 sources) Dysarthria; Translations: [Dysarthria and anarthria] Onset: 3 08-05-2023 Episodic Other nervous system disorders (2 sources) Paresthesia of skin; Translations: [Paresthesia of skin] Onset: 5 Episodic Other nervous system disorders (2 sources) Ataxia, unspecified; Translations: [Ataxia, unspecified] Onset: 5 Episodic Other non-traumatic joint disorders (20 sources) Hip pain; Translations: [Pain in left hip] Onset: 4 06-14-2024 Episodic Other non-traumatic joint disorders (4 sources) Pain in right hip; Translations: [Pain in right hip] Onset: 4 Episodic Other upper respiratory infections (10 sources) Acute maxillary sinusitis; Translations: [Acute maxillary sinusitis, unspecified] Onset: 4 Episodic Otitis media and related conditions (20 sources) Tympanosclerosis involving tympanic membrane only; Translations: [Tympanosclerosis, left ear] Onset: 3 01-06-2023 Episodic Pancreatic disorders (not diabetes) (20 sources) Acute pancreatitis; Translations: [Acute pancreatitis without necrosis or infection, unspecified] Onset: 5 10-25-2024 Episodic Pneumonia (except that caused by tuberculosis or sexually transmitted disease) (2 sources) Pneumonia, unspecified organism; Translations: [Pneumonia, unspecified organism] Onset: 5 Episodic Residual codes; unclassified (20 sources) Insomnia; Translations: [Insomnia, unspecified] Onset: 4 09-17-2023 Episodic Residual codes; unclassified (2 sources) Pain, unspecified; Translations: [Pain, unspecified] Onset: 4 Episodic Spondylosis; intervertebral disc disorders; other back problems (20 sources) Low back pain; Translations: [Sciatica] Onset: 7 02-05-2023 Episodic Superficial injury; contusion (2 sources) Contusion of scalp, initial encounter; Translations: [Contusion of scalp, initial encounter] Onset: 4 Episodic Unclassified (8 sources) Patient encounter status; Translations: [Pre-operative cardiovascular examination] Onset: 8 03-19-2018 Unclassified (1 source) Trochanteric bursitis of left hip Unclassified (20 sources) Onset: 4 09-06-2023 Results Test Name Value Interpretation Reference Range Facility CBC WITH AUTO DIFFERENTIALon 03-04-2025 AUTO NRBC 0.0 % [facility] Comment on above: Performed By: #### L [id number] #### LAB [address] [address] Jean Gary M.D. [id number] AUTO NRBC ABS COUNT 0.00 K/mcL Normal 0.00-0.00 [facility] Comment on above: Performed By: #### L [id number] #### LAB [address] [address] Jean Gary M.D. [id number] BASOPHILS ABSOLUTE COUNT 0.03 K/mcL Normal 0.00-0.30 [facility] Comment on above: Performed By: #### L [id number] #### LAB [address] [place], [place] [address] Jean Gary M.D. [id number] Basophils/100 WBC (Bld) 0.3 % Normal [facility] Comment on above: Performed By: #### L [id number] #### LAB [address] [address] Jean Gary M.D. [id number] Eosinophils (Bld) [#/Vol] 0.06 10*3/uL Normal 0.00-0.50 [facility] Comment on above: Performed By: #### L [id number] #### LAB [address] [place] [address] Jean Gary M.D. [id number] Eosinophils/100 WBC (Bld) 0.6 % Normal [facility] Comment on above: Performed By: #### L [id number] #### LAB [address] [place] [address] Jean Gary M.D. [id number] Erythrocyte distribution width (RBC) [Ratio] 14.4 % Normal 11.6-14.8 [facility] Comment on above: Performed By: #### L [id number] #### LAB [address] [place] [address] Jean Gary M.D. [id number] Hematocrit (Bld) [Volume fraction] 31.0 % Low 36.0-46.0 [facility] Comment on above: Performed By: #### L [id number] #### LAB [address] [place] [address] Jean Gary M.D. [id number] Hemoglobin (Bld) [Mass/Vol] 9.8 g/dL Low 12.0-16.0 [facility] Comment on above: Performed By: #### L [id number] #### LAB [address] [place] [address] Jean Gary M.D. [id number] IG ABSOLUTE 0.18 K/mcL Normal 0.00-0.30 [facility] Comment on above: Performed By: #### L [id number] #### LAB [address] [place] [address] Jean Gary M.D. [id number] IG PERCENT 1.80 % Normal [facility] Comment on above: Result Comment: The IG parameter is the percentage of metamyelocytes, myelocytes and promyelocytes. An immature granulocyte count (IG) of 1% or more suggests the possibility of infection, an IG count of 3% is very likely related to an infection. Performed By: #### L [id number] #### LAB [address] [address] Jean Gary M.D. [id number] Lymphocytes (Bld) [#/Vol] 1.43 10*3/uL Normal 0.90-4.00 [facility] Comment on above: Performed By: #### L [id number] #### LAB [address] [address] Jean Gary M.D. [id number] Lymphocytes/100 WBC (Bld) 14.4 % Normal [facility] Comment on above: Performed By: #### L [id number] #### LAB [address] [address] Jean Gary M.D. [id number] MCH (RBC) [Entitic mass] 31.1 pg Normal 26.0-34.0 [facility] Comment on above: Performed By: #### L [id number] #### LAB [address] [address] Jean Gary M.D. [id number] MCV (RBC) [Entitic vol] 98.4 fL Normal 80.0-100.0 [facility] Comment on above: Performed By: #### L [id number] #### LAB [address] [address] Jean Gary M.D. [id number] MEAN CORPUSCULAR HEMOGLOBIN CONC 31.6 g/dL Normal 31.0-37.0 [facility] Comment on above: Performed By: #### L [id number] #### LAB [address] [address] Jean Gary M.D. [id number] Monocytes (Bld) [#/Vol] 1.34 10*3/uL High 0.30-0.90 [facility] Comment on above: Performed By: #### L [id number] #### LAB [address] [address] Jean Gary M.D. [id number] Monocytes/100 WBC (Bld) 13.5 % Normal [facility] Comment on above: Performed By: #### L [id number] #### LAB [address] [address] Jean Gary M.D. [id number] NEUTROPHILS ABSOLUTE COUNT 6.86 K/mcL Normal 1.70-7.00 [facility] Comment on above: Performed By: #### L [id number] #### LAB [address] [address] Jean Gary M.D. [id number] Neutrophils/100 WBC (Bld) 69.4 % Normal [facility] Comment on above: Performed By: #### L [id number] #### LAB [address] [address] Jean Gary M.D. [id number] Platelet mean volume (Bld) [Entitic vol] 9.8 fL Normal 9.4-12.4 [facility] Comment on above: Performed By: #### L [id number] #### LAB [address] [address] Jean Gary M.D. [id number] Platelets (Bld) [#/Vol] 249 10*3/uL Normal 150-400 [facility] Comment on above: Performed By: #### L [id number] #### LAB [address] [address] Jean Gary M.D. [id number] RBC (Bld) [#/Vol] 3.15 10*6/uL Low 4.00-5.20 [facility] Comment on above: Performed By: #### L [id number] #### LAB [address] [address] Jean Gary M.D. [id number] WBC (Bld) [#/Vol] 9.90 10*3/uL Normal 4.50-11.00 [facility] Comment on above: Performed By: #### L [id number] ####[facility] [address] [address] Jean Gary M.D. [id number] [facility] 03-04-2025 Albumin [Mass/Vol] 2.9 g/dL Low 3.2-5.2 [facility] [place] Comment on above: Order Comment: [facility] has implemented the eGFR calculation approach that does not have a coefficient for race that conforms to the NKF-ASN Task Force Recommendations. Performed By: #### [id number] #### LAB [address] [address] Jean Gary M.D. [id number] ALP [Catalytic activity/Vol] 117 U/L Normal 40-150 [facility] Comment on above: Order Comment: [facility] [facility] has implemented the eGFR calculation approach that does not have a coefficient for race that conforms to the NKF-ASN Task Force Recommendations. Performed By: #### 4 [id number] #### LAB [address] [address] Jean Gary M.D. [id number] ALT [Catalytic activity/Vol] 195 U/L High 0-35 U/L [facility] Comment on above: Order Comment: [facility] has implemented the eGFR calculation approach that does not have a coefficient for race that conforms to the NKF-ASN Task Force Recommendations. Performed By: #### 4 [id number] #### LAB [address] [address] Jean Gary M.D. [id number] Anion gap [Moles/Vol] 15 mmol/L Normal 10-20 [facility] Comment on above: Order Comment: [facility] has implemented the eGFR calculation approach that does not have a coefficient for race that conforms to the NKF-ASN Task Force Recommendations. Performed By: #### 4 [id number] #### LAB [address] [address] Jean Gary M.D. [id number] AST [Catalytic activity/Vol] 36 U/L High 0-35 U/L [facility] Comment on above: Order Comment: [facility] has implemented the eGFR calculation approach that does not have a coefficient for race that conforms to the NKF-ASN Task Force Recommendations. Performed By: #### 4 6126 #### LAB [address] [id number] Jean Gary M.D. [id number] Bilirubin [Mass/Vol] 0.3 mg/dL Normal 0.0-1.3 [facility] Comment on above: Order Comment: [facility] has implemented the eGFR calculation approach that does not have a coefficient for race that conforms to the NKF-ASN Task Force Recommendations. Performed By: #### 4 [id number] #### LAB [address] [address] Jean Gary M.D. [id number] Calcium [Mass/Vol] 8.6 mg/dL Normal 8.4-10.2 [facility] Comment on above: Order Comment: [facility] has implemented the eGFR calculation approach that does not have a coefficient for race that conforms to the NKF-ASN Task Force Recommendations. Performed By: #### 4 [id number] #### LAB [address] [address] Jean Gary M.D. [id number] Chloride [Moles/Vol] 96 mmol/L Low 98-108 [facility] Comment on above: Order Comment: [facility] has implemented the eGFR calculation approach that does not have a coefficient for race that conforms to the NKF-ASN Task Force Recommendations. Performed By: #### 4 6126 #### LAB [address] [address] Jean Gary M.D. [id number] Creatinine [Mass/Vol] 0.52 mg/dL Low 0.60-1.20 [facility] Comment on above: Order Comment: [facility] has implemented the eGFR calculation approach that does not have a coefficient for race that conforms to the NKF-ASN Task Force Recommendations. Performed By: #### 4 6126 #### LAB [address] [address] Jean Gary M.D. [id number] EGFR 96 mL/min/1.73 m2 Normal >=60 [facility] Comment on above: Order Comment: [facility] has implemented the eGFR calculation approach that does not have a coefficient for race that conforms to the NKF-ASN Task Force Recommendations. Result Comment: Cassi mated GFR was calculated using the 2020 CKD-EPI creatinine equation. Performed By: #### 4 [id number] #### LAB [address] [address] Jean Gary M.D. [id number] Glucose [Mass/Vol] 153 mg/dL High 65-99 [facility] Comment on above: Order Comment: [facility] has implemented the eGFR calculation approach that does not have a coefficient for race that conforms to the NKF-ASN Task Force Recommendations. Performed By: #### 4 6126 #### LAB [address] [address] Jean Gary M.D. [id number] HCO3 (Bld) [Moles/Vol] 24 mmol/L Normal 21-32 [facility] Comment on above: Order Comment: [facility] has implemented the eGFR calculation approach that does not have a coefficient for race that conforms to the NKF-ASN Task Force Recommendations. Performed By: #### 4 6126 #### LAB [address] [address] Jean Gary M.D. [id number] Potassium [Moles/Vol] 4.3 mmol/L Normal 3.5-5.1 [facility] Comment on above: Order Comment: [facility] has implemented the eGFR calculation approach that does not have a coefficient for race that conforms to the NKF-ASN Task Force Recommendations. Performed By: #### 4 6126 #### LAB [address] [address] Jean Gary M.D. [id number] Protein [Mass/Vol] 5.2 g/dL Low 6.0-8.0 [facility] Comment on above: Order Comment: [facility] has implemented the eGFR calculation approach that does not have a coefficient for race that conforms to the NKF-ASN Task Force Recommendations. Performed By: #### 4 6126 #### LAB [address] [place], [place] [address] Jean Gary M.D. [id number] Sodium [Moles/Vol] 131 mmol/L Low 135-145 [facility] Comment on above: Order Comment: [facility] has implemented the eGFR calculation approach that does not have a coefficient for race that conforms to the NKF-ASN Task Force Recommendations. Performed By: #### 4 6126 #### LAB [address] [address] Jean Gary M.D. [id number] Urea nitrogen [Mass/Vol] 19 mg/dL Normal 8-25 [facility] Comment on above: Order Comment: [facility] has implemented the eGFR calculation approach that does not have a coefficient for race that conforms to the NKF-ASN Task Force Recommendations. Performed By: #### 4 6126 #### LAB [address] [address] Jean Gary M.D. [id number] Urea nitrogen/Creatinine [Mass ratio] 36.5 mg/mg High 10.0-20.0 [facility] Comment on above: Order Comment: [facility] has implemented the eGFR calculation approach that does not have a coefficient for race that conforms to the NKF-ASN Task Force Recommendations. Performed By: #### 4 6126 #### LAB [address] [address] Jean Gary M.D. [id number] MAGNESIUM LEVELon 03-04-2025 Magnesium [Mass/Vol] 1.7 mg/dL Normal 1.6-2.4 [facility] Comment on above: Performed By: #### 4 6109 ####[facility] [address] [id number] Jean Gary M.D. [id number] PHOSPHORUSon 03-04-2025 Phosphate [Mass/Vol] 2.8 mg/dL Normal 2.8-4.1 [facility] Comment on above: Performed By: #### 4 [id number] #### LAB [address] [address] Jean Gary M.D. [id number] XR CHEST PA/APon 03-04-2025 XR CHEST PA/AP [facility] Comment on above: Order Comment: Injur y/Trauma or Illness?:Illness/OtherHow long have you had these symptoms (acute/chronic)?:ChronicReason for exam?:ptx evalHistory of cancer?:uSurgeries, chemotherapy, or radiation?:uType of Exam?:Subsequent/Follow-upAdditional signs and symptoms?:n XR CHEST PA/APon 03-03-2025 XR CHEST PA/AP [facility] Comment on above: Order Comment: Injur y/Trauma or Illness?:Illness/OtherHow long have you had these symptoms (acute/chronic)?:ChronicReason for exam?:ptx evalHistory of cancer?:uSurgeries, chemotherapy, or radiation?:uType of Exam?:Subsequent/Follow-upAdditional signs and symptoms?:n BASIC METABOLIC PANELon 02-14 Anion gap [Moles/Vol] 15 mmol/L Normal 10-20 [facility] Comment on above: Order Comment: [facility] has implemented the eGFR calculation approach that does not have a coefficient for race that conforms to the NKF-ASN Task Force Recommendations. Performed By: #### 4 6124 #### LAB [address] [place], [place] [address] Jean Gary M.D. [id number] Calcium [Mass/Vol] 9.2 mg/dL Normal 8.4-10.2 [facility] Comment on above: Order Comment: [facility] has implemented the eGFR calculation approach that does not have a coefficient for race that conforms to the NKF-ASN Task Force Recommendations. Performed By: #### 4 6124 #### LAB [address] [place], [place] [address] Jean Gary M.D. [id number] Chloride [Moles/Vol] 96 mmol/L Low 98-108 [facility] Comment on above: Order Comment: [facility] has implemented the eGFR calculation approach that does not have a coefficient for race that conforms to the NKF-ASN Task Force Recommendations. Performed By: #### 4 6124 ####[facility] [address] [place], [place] [address] Jean Gary M.D. [id number] Creatinine [Mass/Vol] 0.49 mg/dL Low 0.60-1.20 [facility] Comment on above: Order Comment: [facility] has implemented the eGFR calculation approach that does not have a coefficient for race that conforms to the NKF-ASN Task Force Recommendations. Performed By: #### 4 6124 #### LAB [address] [address] Jean Gary M.D. [id number] EGFR 98 mL/min/1.73 m2 Normal >=60 [facility] Comment on above: Order Comment: [facility] has implemented the eGFR calculation approach that does not have a coefficient for race that conforms to the NKF-ASN Task Force Recommendations. Result Comment: Cassi mated GFR was calculated using the 2020 CKD-EPI creatinine equation. Performed By: #### 4 [id number] #### LAB [address] [address] Jean Gary M.D. [id number] Glucose [Mass/Vol] 124 mg/dL High 65-99 [facility] Comment on above: Order Comment: [facility] has implemented the eGFR calculation approach that does not have a coefficient for race that conforms to the NKF-ASN Task Force Recommendations. Performed By: #### 4 6124 #### LAB [address] [id number] Jean Gary M.D. [id number] HCO3 (Bld) [Moles/Vol] 27 mmol/L Normal 21-32 [facility] Comment on above: Order Comment: [facility] has implemented the eGFR calculation approach that does not have a coefficient for race that conforms to the NKF-ASN Task Force Recommendations. Performed By: #### 4 6124 #### LAB [address] [address] Jean Gary M.D. [id number] Potassium [Moles/Vol] 4.5 mmol/L Normal 3.5-5.1 [facility] Comment on above: Order Comment: [facility] has implemented the eGFR calculation approach that does not have a coefficient for race that conforms to the NKF-ASN Task Force Recommendations. Performed By: #### 4 6124 #### LAB [address] [address] Jean Gary M.D. [id number] Sodium [Moles/Vol] 133 mmol/L Low 135-145 [facility] Comment on above: Order Comment: [facility] has implemented the eGFR calculation approach that does not have a coefficient for race that conforms to the NKF-ASN Task Force Recommendations. Performed By: #### 4 6124 #### LAB [address] [address] Jean Gary M.D. [id number] Urea nitrogen [Mass/Vol] 31 mg/dL High 8-25 [facility] Comment on above: Order Comment: [facility] has implemented the eGFR calculation approach that does not have a coefficient for race that conforms to the NKF-ASN Task Force Recommendations. Performed By: #### 4 6124 #### LAB [address] [address] Jean Gary M.D. [id number] Urea nitrogen/Creatinine [Mass ratio] 63.3 mg/mg High 10.0-20.0 [facility] Comment on above: Order Comment: [facility] has implemented the eGFR calculation approach that does not have a coefficient for race that conforms to the NKF-ASN Task Force Recommendations. Performed By: #### 4 6124 #### LAB [address] [address] Jean Gary M.D. [id number] CBC WITH AUTO DIFFERENTIALon 03-02-2025 AUTO NRBC 0.3 % Normal [facility] Comment on above: Performed By: #### L [id number] ####[facility] [address] [address] Jean Gary M.D. [id number] AUTO NRBC ABS COUNT 0.02 K/mcL High 0.00-0.00 [facility] Comment on above: Performed By: #### L [id number] #### LAB [address] [address] Jean Gary M.D. [id number] BASOPHILS ABSOLUTE COUNT 0.05 K/mcL Normal 0.00-0.30 [facility] Comment on above: Performed By: #### L [id number] #### LAB [address] [address] Jean Gary M.D. [id number] Basophils/100 WBC (Bld) 0.7 % Normal [facility] Comment on above: Performed By: #### L [id number] #### LAB [address] [address] Jean Gary M.D. [id number] Eosinophils (Bld) [#/Vol] 0.08 10*3/uL Normal 0.00-0.50 [facility] Comment on above: Performed By: #### L [id number] #### LAB [address] [address] Jean Gary M.D. [id number] Eosinophils/100 WBC (Bld) 1.1 % Normal [facility] Comment on above: Performed By: #### L [id number] #### LAB [address] [place] [address] Jean Gary M.D. [id number] Erythrocyte distribution width (RBC) [Ratio] 13.8 % Normal 11.6-14.8 [facility] Comment on above: Performed By: #### L [id number] #### LAB [address] [place] [address] Jean Gary M.D. [id number] Hematocrit (Bld) [Volume fraction] 32.3 % Low 36.0-46.0 [facility] Comment on above: Performed By: #### L [id number] #### LAB [address] [place] [address] Jean Gary M.D. [id number] Hemoglobin (Bld) [Mass/Vol] 10.4 g/dL Low 12.0-16.0 [facility] Comment on above: Performed By: #### L [id number] #### LAB [address] [address] Jean Gary M.D. [id number] IG ABSOLUTE 0.23 K/mcL Normal 0.00-0.30 [facility] Comment on above: Performed By: #### L [id number] #### LAB [address] [address] Jean Gary M.D. [id number] IG PERCENT 3.30 % Normal [facility] Comment on above: Result Comment: The IG parameter is the percentage of metamyelocytes, myelocytes and promyelocytes. An immature granulocyte count (IG) of 1% or more suggests the possibility of infection, an IG count of 3% is very likely related to an infection. Performed By: #### L [id number] #### LAB [address] [place] [address] Jean Gary M.D. [id number] Lymphocytes (Bld) [#/Vol] 0.87 10*3/uL Low 0.90-4.00 [facility] Comment on above: Performed By: #### L [id number] #### LAB [address] [address] Jean Gary M.D. [id number] Lymphocytes/100 WBC (Bld) 12.4 % Normal [facility] Comment on above: Performed By: #### L [id number] #### LAB [address] [address] Jean Gary M.D. [id number] MCH (RBC) [Entitic mass] 31.0 pg Normal 26.0-34.0 [facility] Comment on above: Performed By: #### L [id number] #### LAB [address] [place] [address] Jean Gary M.D. [id number] MCV (RBC) [Entitic vol] 96.1 fL Normal 80.0-100.0 [facility] Comment on above: Performed By: #### L [id number] #### LAB [address] [address] Jean Gary M.D. [id number] MEAN CORPUSCULAR HEMOGLOBIN CONC 32.2 g/dL Normal 31.0-37.0 [facility] Comment on above: Performed By: #### L [id number] #### LAB [address] [address] Jean Gary M.D. [id number] Monocytes (Bld) [#/Vol] 1.18 10*3/uL High 0.30-0.90 [facility] Comment on above: Performed By: #### L [id number] #### LAB [address] [address] Jean Gary M.D. [id number] Monocytes/100 WBC (Bld) 16.9 % Normal [facility] Comment on above: Performed By: #### L [id number] #### LAB [address] [address] Jean Gary M.D. [id number] NEUTROPHILS ABSOLUTE COUNT 4.58 K/mcL Normal 1.70-7.00 [facility] Comment on above: Performed By: #### L [id number] #### LAB [address] [address] Jean Gary M.D. [id number] Neutrophils/100 WBC (Bld) 65.6 % Normal [facility] Comment on above: Performed By: #### L [id number] #### LAB [address] [address] Jean Gary M.D. [id number] Platelet mean volume (Bld) [Entitic vol] 10.1 fL Normal 9.4-12.4 [facility] Comment on above: Performed By: #### L [id number] #### LAB [address] [address] Jean Gary M.D. [id number] Platelets (Bld) [#/Vol] 304 10*3/uL Normal 150-400 [facility] Comment on above: Performed By: #### L [id number] ####[facility] [address] [place], [place] [address] Jean Gary M.D. [id number] RBC (Bld) [#/Vol] 3.36 10*6/uL Low 4.00-5.20 [facility] Comment on above: Performed By: #### L [id number] ####[facility] [address] [address] Jean Gary M.D. [id number] WBC (Bld) [#/Vol] 6.99 10*3/uL Normal 4.50-11.00 [facility] Comment on above: Performed By: #### L [id number] ####[facility] [address] [address] Jean Gary M.D. [id number] XR CHEST PA/APon 03-02-2025 XR CHEST PA/AP Normal [facility] Comment on above: Order Comment: Injur y/Trauma or Illness?:Illness/OtherHow long have you had these symptoms (acute/chronic)?:AcuteReason for exam?:post chest tube pullHistory of cancer?:uSurgeries, chemotherapy, or radiation?:uType of Exam?:InitialAdditional signs and symptoms?:chest tube Order Comment: Injur y/Trauma or Illness?:Illness/OtherHow long have you had these symptoms (acute/chronic)?:ChronicReason for exam?:ptx evalHistory of cancer?:uSurgeries, chemotherapy, or radiation?:uType of Exam?:Subsequent/Follow-upAdditional signs and symptoms?:n BASIC METABOLIC PANELon 07- Anion gap [Moles/Vol] 15 mmol/L Normal - [facility] Comment on above: Order Comment: [facility] has implemented the eGFR calculation approach that does not have a coefficient for race that conforms to the NKF-ASN Task Force Recommendations. Performed By: #### 4 6124 ####[facility] [address] [address] Jean Gary M.D. [id number] Calcium [Mass/Vol] 9.4 mg/dL Normal 8.4-10.2 [facility] Comment on above: Order Comment: [facility] has implemented the eGFR calculation approach that does not have a coefficient for race that conforms to the NKF-ASN Task Force Recommendations. Performed By: #### 4 6124 #### LAB [address] [place], [place] [address] Jean Gary M.D. [id number] Chloride [Moles/Vol] 94 mmol/L Low 98-108 [facility] Comment on above: Order Comment: [facility] has implemented the eGFR calculation approach that does not have a coefficient for race that conforms to the NKF-ASN Task Force Recommendations. Performed By: #### 4 6124 #### LAB [address] [address] Jean Gary M.D. [id number] Creatinine [Mass/Vol] 0.55 mg/dL Low 0.60-1.20 [facility] Comment on above: Order Comment: [facility] has implemented the eGFR calculation approach that does not have a coefficient for race that conforms to the NKF-ASN Task Force Recommendations. Performed By: #### 4 6124 #### LAB [address] [address] Jean Gary M.D. [id number] EGFR 95 mL/min/1.73 m2 Normal >=60 [facility] Comment on above: Order Comment: [facility] has implemented the eGFR calculation approach that does not have a coefficient for race that conforms to the NKF-ASN Task Force Recommendations. Result Comment: Cassi mated GFR was calculated using the 2020 CKD-EPI creatinine equation. Performed By: #### 4 6124 #### LAB [address] [address] Jean Gary M.D. [id number] Glucose [Mass/Vol] 125 mg/dL High 65-99 [facility] Comment on above: Order Comment: [facility] has implemented the eGFR calculation approach that does not have a coefficient for race that conforms to the NKF-ASN Task Force Recommendations. Performed By: #### 4 6124 #### LAB [address] [address] Jean Gary M.D. [id number] HCO3 (Bld) [Moles/Vol] 27 mmol/L Normal 21-32 [facility] Comment on above: Order Comment: [facility] has implemented the eGFR calculation approach that does not have a coefficient for race that conforms to the NKF-ASN Task Force Recommendations. Performed By: #### 4 6124 #### LAB [address] [address] Jean Gary M.D. [id number] Potassium [Moles/Vol] 3.3 mmol/L Low 3.5-5.1 [facility] Comment on above: Order Comment: [facility] has implemented the eGFR calculation approach that does not have a coefficient for race that conforms to the NKF-ASN Task Force Recommendations. Performed By: #### 4 6124 #### LAB [address] [address] Jean Gary M.D. [id number] Sodium [Moles/Vol] 133 mmol/L Low 135-145 [facility] Comment on above: Order Comment: [facility] has implemented the eGFR calculation approach that does not have a coefficient for race that conforms to the NKF-ASN Task Force Recommendations. Performed By: #### 4 6124 #### LAB [address] [address] Jean Gary M.D. [id number] Urea nitrogen [Mass/Vol] 24 mg/dL Normal 8-25 [facility] Comment on above: Order Comment: [facility] has implemented the eGFR calculation approach that does not have a coefficient for race that conforms to the NKF-ASN Task Force Recommendations. Performed By: #### 4 6124 #### LAB [address] [address] Jean Gary M.D. [id number] Urea nitrogen/Creatinine [Mass ratio] 43.6 mg/mg High 10.0-20.0 [facility] Comment on above: Order Comment: [facility] has implemented the eGFR calculation approach that does not have a coefficient for race that conforms to the NKF-ASN Task Force Recommendations. Performed By: #### 4 6124 ####[facility] [address] [place] [address] Jean Gary M.D. [id number] CBC WITH AUTO DIFFERENTIALon 03-01-2025 AUTO NRBC 0.4 % [facility] Comment on above: Performed By: #### L [id number] ####[facility] [address] [address] Jean Gary M.D. [id number] AUTO NRBC ABS COUNT 0.02 K/mcL High 0.00-0.00 [facility] Comment on above: Performed By: #### L [id number] ####[facility] [address] [place] [address] Jean Gary M.D. [id number] BASOPHILS ABSOLUTE COUNT 0.01 K/mcL Normal 0.00-0.30 [facility] Comment on above: Performed By: #### L [id number] ####[facility] [address] [place] [address] Jean Gary M.D. [id number] Basophils/100 WBC (Bld) 0.2 % [facility] Comment on above: Performed By: #### L [id number] #### LAB [address] [place] [address] Jean Gary M.D. [id number] Eosinophils (Bld) [#/Vol] 0.00 10*3/uL Normal 0.00-0.50 [facility] Comment on above: Performed By: #### L [id number] ####[facility] [address] [place] [address] Jean Gary M.D. [id number] Eosinophils/100 WBC (Bld) 0.0 % [facility] Comment on above: Performed By: #### L [id number] ####[facility] [address] [place] [address] Jean Gary M.D. [id number] Erythrocyte distribution width (RBC) [Ratio] 13.5 % Normal 11.6-14.8 [facility] Comment on above: Performed By: #### L [id number] #### LAB [address] [address] Jean Gary M.D. [id number] Hematocrit (Bld) [Volume fraction] 28.5 % Low 36.0-46.0 [facility] Comment on above: Performed By: #### L [id number] #### LAB [address] [address] Jean Gary M.D. [id number] Hemoglobin (Bld) [Mass/Vol] 9.6 g/dL Low 12.0-16.0 [facility] Comment on above: Performed By: #### L [id number] #### LAB [address] [place] [address] Jean Gary M.D. [id number] IG ABSOLUTE 0.08 K/mcL Normal 0.00-0.30 [facility] Comment on above: Performed By: #### L [id number] #### LAB [address] [place] [address] Jean Gary M.D. [id number] IG PERCENT 1.50 % Normal [facility] Comment on above: Result Comment: The IG parameter is the percentage of metamyelocytes, myelocytes and promyelocytes. An immature granulocyte count (IG) of 1% or more suggests the possibility of infection, an IG count of 3% is very likely related to an infection. Performed By: #### L [id number] #### LAB [address] [place] [address] Jean Gary M.D. [id number] Lymphocytes (Bld) [#/Vol] 1.14 10*3/uL Normal 0.90-4.00 [facility] Comment on above: Performed By: #### L [id number] #### LAB [address] [place] [address] Jean Gary M.D. [id number] Lymphocytes/100 WBC (Bld) 21.8 % Normal [facility] Comment on above: Performed By: #### L [id number] #### LAB [address] [place] [address] Jean Gary M.D. [id number] MCH (RBC) [Entitic mass] 31.5 pg Normal 26.0-34.0 [facility] Comment on above: Performed By: #### L [id number] #### LAB [address] [place] [address] Jean Gary M.D. [id number] MCV (RBC) [Entitic vol] 93.4 fL Normal 80.0-100.0 [facility] Comment on above: Performed By: #### L [id number] #### LAB [address] [place] [address] Jean Gary M.D. [id number] MEAN CORPUSCULAR HEMOGLOBIN CONC 33.7 g/dL Normal 31.0-37.0 [facility] Comment on above: Performed By: #### L [id number] #### LAB [address] [place] [address] Jean Gary M.D. [id number] Monocytes (Bld) [#/Vol] 1.01 10*3/uL High 0.30-0.90 [facility] Comment on above: Performed By: #### L [id number] #### LAB [address] [place] [address] Jean Gary M.D. [id number] Monocytes/100 WBC (Bld) 19.3 % Normal [facility] Comment on above: Performed By: #### L [id number] #### LAB [address] [place] [address] Jean Gary M.D. [id number] NEUTROPHILS ABSOLUTE COUNT 3.00 K/mcL Normal 1.70-7.00 [facility] Comment on above: Performed By: #### L [id number] #### LAB [address] [place] [address] Jean Gary M.D. [id number] Neutrophils/100 WBC (Bld) 57.2 % Normal [facility] Comment on above: Performed By: #### L [id number] #### LAB [address] [place] [address] Jean Gary M.D. [id number] Platelet mean volume (Bld) [Entitic vol] 10.0 fL Normal 9.4-12.4 [facility] Comment on above: Performed By: #### L [id number] #### LAB [address] [place] [address] Jean Gary M.D. [id number] Platelets (Bld) [#/Vol] 291 10*3/uL Normal 150-400 [facility] Comment on above: Performed By: #### L [id number] #### LAB [address] [place] [address] Jean Gary M.D. [id number] RBC (Bld) [#/Vol] 3.05 10*6/uL Low 4.00-5.20 [facility] Comment on above: Performed By: #### L [id number] #### LAB [address] [place] [address] Jean Gary M.D. [id number] WBC (Bld) [#/Vol] 5.24 10*3/uL Normal 4.50-11.00 [facility] Comment on above: Performed By: #### L [id number] #### LAB [address] [place] [address] Jean Gary M.D. [id number] POTASSIUM LEVELon 03-01-2025 Potassium [Moles/Vol] 3.9 mmol/L Normal 3.5-5.1 [facility] Comment on above: Performed By: #### 4 [id number] #### LAB [address] [place] [address] Jean Gary M.D. [id number] XR CHEST PA/APon 03-01-2025 XR CHEST PA/AP Normal [facility] Comment on above: Order Comment: Injur y/Trauma or Illness?:Illness/OtherHow long have you had these symptoms (acute/chronic)?:AcuteReason for exam?:ptx evalHistory of cancer?:uSurgeries, chemotherapy, or radiation?:uType of Exam?:OngoingAdditional signs and symptoms?:n BASIC METABOLIC PANELon 02-14 Anion gap [Moles/Vol] 13 mmol/L Normal 10-20 [facility] Comment on above: Order Comment: [facility] has implemented the eGFR calculation approach that does not have a coefficient for race that conforms to the NKF-ASN Task Force Recommendations. Performed By: #### 4 [id number] #### LAB [address] [place] [address] Jean Gary M.D. [id number] Calcium [Mass/Vol] 9.7 mg/dL Normal 8.4-10.2 [facility] Comment on above: Order Comment: [facility] has implemented the eGFR calculation approach that does not have a coefficient for race that conforms to the NKF-ASN Task Force Recommendations. Performed By: #### 4 [id number] #### LAB [address] [place] [address] Jean Gary M.D. [id number] Chloride [Moles/Vol] 98 mmol/L Normal 98-108 [facility] Comment on above: Order Comment: [facility] has implemented the eGFR calculation approach that does not have a coefficient for race that conforms to the NKF-ASN Task Force Recommendations. Performed By: #### 4 [id number] #### LAB [address] [place] [address] Jean Gary M.D. [id number] Creatinine [Mass/Vol] 0.58 mg/dL Low 0.60-1.20 [facility] Comment on above: Order Comment: [facility] has implemented the eGFR calculation approach that does not have a coefficient for race that conforms to the NKF-ASN Task Force Recommendations. Performed By: #### 4 [id number] #### LAB [address] [place] [address] Jean Gary M.D. [id number] EGFR 94 mL/min/1.73 m2 Normal >=60 [facility] Comment on above: Order Comment: [facility] has implemented the eGFR calculation approach that does not have a coefficient for race that conforms to the NKF-ASN Task Force Recommendations. Result Comment: Cassi mated GFR was calculated using the 2020 CKD-EPI creatinine equation. Performed By: #### 4 [id number] #### LAB [address] [place] [address] Jean Gary M.D. [id number] Glucose [Mass/Vol] 126 mg/dL High 65-99 [facility] Comment on above: Order Comment: [facility] has implemented the eGFR calculation approach that does not have a coefficient for race that conforms to the NKF-ASN Task Force Recommendations. Performed By: #### 4 [id number] #### LAB [address] [place] [address] Jean Gary M.D. [id number] HCO3 (Bld) [Moles/Vol] 28 mmol/L Normal 21-32 [facility] Comment on above: Order Comment: [facility] has implemented the eGFR calculation approach that does not have a coefficient for race that conforms to the NKF-ASN Task Force Recommendations. Performed By: #### 4 6124 #### LAB [address] [place] [address] Jean Gary M.D. [id number] Potassium [Moles/Vol] 4.2 mmol/L Normal 3.5-5.1 [facility] Comment on above: Order Comment: [facility] has implemented the eGFR calculation approach that does not have a coefficient for race that conforms to the NKF-ASN Task Force Recommendations. Performed By: #### 4 6124 #### LAB [address] [place] [address] Jean Gary M.D. [id number] Sodium [Moles/Vol] 135 mmol/L Normal 135-145 [facility] Comment on above: Order Comment: [facility] has implemented the eGFR calculation approach that does not have a coefficient for race that conforms to the NKF-ASN Task Force Recommendations. Performed By: #### 4 6124 #### LAB [address] [place] [address] Jean Gary M.D. [id number] Urea nitrogen [Mass/Vol] 22 mg/dL Normal 8-25 [facility] Comment on above: Order Comment: [facility] has implemented the eGFR calculation approach that does not have a coefficient for race that conforms to the NKF-ASN Task Force Recommendations. Performed By: #### 4 6124 #### LAB [address] [place] [address] Jean Gary M.D. [id number] Urea nitrogen/Creatinine [Mass ratio] 37.9 mg/mg High 10.0-20.0 [facility] Comment on above: Order Comment: [facility] has implemented the eGFR calculation approach that does not have a coefficient for race that conforms to the NKF-ASN Task Force Recommendations. Performed By: #### 4 6124 #### LAB [address] [place] [address] Jean Gary M.D. [id number] CBC WITH AUTO DIFFERENTIALon 02-28-2025 AUTO NRBC 0.0 % [facility] Comment on above: Performed By: #### L [id number] ####[facility] LAB [address] [place] [address] Jean Gary M.D. [id number] AUTO NRBC ABS COUNT 0.00 K/mcL Normal 0.00-0.00 [facility] Comment on above: Performed By: #### L [id number] ####[facility] LAB [address] [place] [address] Jean Gary M.D. [id number] BASOPHILS ABSOLUTE COUNT 0.00 K/mcL Normal 0.00-0.30 [facility] Comment on above: Performed By: #### L [id number] ####[facility] LAB [address] [place] [address] Jean Gary M.D. [id number] Basophils/100 WBC (Bld) 0.0 % [facility] Comment on above: Performed By: #### L [id number] #### LAB [address] [place] [address] Jean Gary M.D. [id number] Eosinophils (Bld) [#/Vol] 0.00 10*3/uL Normal 0.00-0.50 [facility] Comment on above: Performed By: #### L [id number] #### LAB [address] [place] [address] Jean Gary M.D. [id number] Eosinophils/100 WBC (Bld) 0.0 % Normal [facility] Comment on above: Performed By: #### L [id number] #### LAB [address] [place] [address] Jean Gary M.D. [id number] Erythrocyte distribution width (RBC) [Ratio] 13.4 % Normal 11.6-14.8 [facility] Comment on above: Performed By: #### L [id number] #### LAB [address] [place] [address] Jean Gary M.D. [id number] Hematocrit (Bld) [Volume fraction] 31.5 % Low 36.0-46.0 [facility] Comment on above: Performed By: #### L [id number] #### LAB [address] [place] [address] Jean Gary M.D. [id number] Hemoglobin (Bld) [Mass/Vol] 10.3 g/dL Low 12.0-16.0 [facility] Comment on above: Performed By: #### L [id number] #### LAB [address] [place] [address] Jean Gary M.D. [id number] IG ABSOLUTE 0.05 K/mcL Normal 0.00-0.30 [facility] Comment on above: Performed By: #### L [id number] #### LAB [address] [place] [address] Jean Gary M.D. [id number] IG PERCENT 0.90 % Normal [facility] Comment on above: Result Comment: The IG parameter is the percentage of metamyelocytes, myelocytes and promyelocytes. An immature granulocyte count (IG) of 1% or more suggests the possibility of infection, an IG count of 3% is very likely related to an infection. Performed By: #### L [id number] #### LAB [address] [place] [address] Jean Gray M.D. [id number] Lymphocytes (Bld) [#/Vol] 0.55 10*3/uL Low 0.90-4.00 [facility] Comment on above: Performed By: #### L [id number] #### LAB [address] [place] [address] Jean Gary M.D. [id number] Lymphocytes/100 WBC (Bld) 9.4 % Normal [facility] Comment on above: Performed By: #### L [id number] #### LAB [address] [place] [address] Jean Gary M.D. [id number] MCH (RBC) [Entitic mass] 31.0 pg Normal 26.0-34.0 [facility] Comment on above: Performed By: #### L [id number] #### LAB [address] [place] [address] Jean Gary M.D. [id number] MCV (RBC) [Entitic vol] 94.9 fL Normal 80.0-100.0 [facility] Comment on above: Performed By: #### L [id number] #### LAB [address] [place] [address] Jean Gary M.D. [id number] MEAN CORPUSCULAR HEMOGLOBIN CONC 32.7 g/dL Normal 31.0-37.0 [facility] Comment on above: Performed By: #### L [id number] #### LAB [address] [place] [address] Jean Gary M.D. [id number] Monocytes (Bld) [#/Vol] 0.56 10*3/uL Normal 0.30-0.90 [facility] Comment on above: Performed By: #### L [id number] #### LAB [address] [place] [address] Jean Gary M.D. [id number] Monocytes/100 WBC (Bld) 9.6 % Normal [facility] Comment on above: Performed By: #### L [id number] #### LAB [address] [place] [address] Jean Gary M.D. [id number] NEUTROPHILS ABSOLUTE COUNT 4.69 K/mcL Normal 1.70-7.00 [facility] Comment on above: Performed By: #### L [id number] #### LAB [address] [place] [address] Jean Gary M.D. [id number] Neutrophils/100 WBC (Bld) 80.1 % Normal [facility] Comment on above: Performed By: #### L [id number] #### LAB [address] [place] [address] Jean Gary M.D. [id number] Platelet mean volume (Bld) [Entitic vol] 9.9 fL Normal 9.4-12.4 [facility] Comment on above: Performed By: #### L [id number] #### LAB [address] [place] [address] Jean Gary M.D. [id number] Platelets (Bld) [#/Vol] 284 10*3/uL Normal 150-400 [facility] Comment on above: Performed By: #### L [id number] ####[facility] LAB [address] [place] [address] Jean Gary M.D. [id number] RBC (Bld) [#/Vol] 3.32 10*6/uL Low 4.00-5.20 [facility] Comment on above: Performed By: #### L [id number] #### LAB [address] [place] [address] Jean Gary M.D. [id number] WBC (Bld) [#/Vol] 5.85 10*3/uL Normal 4.50-11.00 [facility] Comment on above: Performed By: #### L [id number] #### LAB [address] [place], [place] [address] Jean Gary M.D. [id number] VANCOMYCIN LEVEL, RANDOMon 0 02-28-2025 VANCOMYCIN RANDOM 13.6 mcg/mL Normal [facility] Comment on above: Order Comment: As of 05/2022 vancomycin dosing for [facility] inpatients will be done by Bayesian dosing software rather than off traditional trough values. Please contact the site specific inpatient pharmacy before making dose changes off of trough values alone for admitted patients.No established reference range. Performed By: #### 4 [id number] #### LAB [address] [place], [place] [address] Jean Gary M.D. [id number] XR CHEST PA/APon 02-28-2025 XR CHEST PA/AP Normal [facility] Comment on above: Order Comment: Injur y/Trauma or Illness?:Illness/OtherHow long have you had these symptoms (acute/chronic)?:AcuteReason for exam?:ptx ??evalHistory of cancer?:uSurgeries, chemotherapy, or radiation?:uType of Exam?:InitialAdditional signs and symptoms?:. BASIC METABOLIC PANELon 02-14 Anion gap [Moles/Vol] 13 mmol/L Normal - [facility] Comment on above: Order Comment: [facility] has implemented the eGFR calculation approach that does not have a coefficient for race that conforms to the NKF-ASN Task Force Recommendations. Performed By: #### 4 [id number] #### LAB [address] [place], [place] [address] Jean Gary M.D. [id number] Calcium [Mass/Vol] 8.9 mg/dL Normal 8.4-10.2 [facility] Comment on above: Order Comment: [facility] has implemented the eGFR calculation approach that does not have a coefficient for race that conforms to the NKF-ASN Task Force Recommendations. Performed By: #### 4 6124 ####[facility] LAB [address] [place] [address] Jean Gary M.D. [id number] Chloride [Moles/Vol] 96 mmol/L Low 98-108 [facility] Comment on above: Order Comment: [facility] has implemented the eGFR calculation approach that does not have a coefficient for race that conforms to the NKF-ASN Task Force Recommendations. Performed By: #### 4 6124 #### LAB [address] [place] [id number] Jean Gary M.D. [id number] Creatinine [Mass/Vol] 0.61 mg/dL Normal 0.60-1.20 [facility] Comment on above: Order Comment: [facility] has implemented the eGFR calculation approach that does not have a coefficient for race that conforms to the NKF-ASN Task Force Recommendations. Performed By: #### 4 6124 #### LAB [address] [place] [address] Jean Gary M.D. [id number] EGFR 93 mL/min/1.73 m2 Normal >=60 [facility] Comment on above: Order Comment: [facility] has implemented the eGFR calculation approach that does not have a coefficient for race that conforms to the NKF-ASN Task Force Recommendations. Result Comment: Cassi mated GFR was calculated using the 2020 CKD-EPI creatinine equation. Performed By: #### 4 6124 #### LAB [address] [place] [id number] Jean Gary M.D. [id number] Glucose [Mass/Vol] 177 mg/dL High 65-99 [facility] Comment on above: Order Comment: [facility] has implemented the eGFR calculation approach that does not have a coefficient for race that conforms to the NKF-ASN Task Force Recommendations. Performed By: #### 4 6147 #### LAB [address] [place] [address] Jean Gary M.D. [id number] HCO3 (Bld) [Moles/Vol] 24 mmol/L Normal 21-32 [facility] Comment on above: Order Comment: [facility] has implemented the eGFR calculation approach that does not have a coefficient for race that conforms to the NKF-ASN Task Force Recommendations. Performed By: #### 4 6124 #### LAB [address] [place] [address] Jean Gary M.D. [id number] Potassium [Moles/Vol] 4.0 mmol/L Normal 3.5-5.1 [facility] Comment on above: Order Comment: [facility] has implemented the eGFR calculation approach that does not have a coefficient for race that conforms to the NKF-ASN Task Force Recommendations. Performed By: #### 4 6124 #### LAB [address] [place] [address] Jean Gary M.D. [id number] Sodium [Moles/Vol] 129 mmol/L Low 135-145 [facility] Comment on above: Order Comment: [facility] has implemented the eGFR calculation approach that does not have a coefficient for race that conforms to the NKF-ASN Task Force Recommendations. Performed By: #### 4 6124 #### LAB [address] [place] [address] Jean Gary M.D. [id number] Urea nitrogen [Mass/Vol] 15 mg/dL Normal 8-25 [facility] Comment on above: Order Comment: [facility] has implemented the eGFR calculation approach that does not have a coefficient for race that conforms to the NKF-ASN Task Force Recommendations. Performed By: #### 4 6124 #### LAB [address] [place] [address] Jean Gary M.D. [id number] Urea nitrogen/Creatinine [Mass ratio] 24.6 mg/mg High 10.0-20.0 [facility] Comment on above: Order Comment: [facility] has implemented the eGFR calculation approach that does not have a coefficient for race that conforms to the NKF-ASN Task Force Recommendations. Performed By: #### 4 6124 #### LAB [address] [place] [address] Jean Gary M.D. [id number] CBC WITH AUTO DIFFERENTIALon 02-27-2025 AUTO NRBC 0.0 % Normal [facility] Comment on above: Performed By: #### L [id number] #### LAB [address] [place] [address] Jean Gary M.D. [id number] AUTO NRBC ABS COUNT 0.00 K/mcL Normal 0.00-0.00 [facility] Comment on above: Performed By: #### L [id number] #### LAB [address] [place] [address] Jean Gary M.D. [id number] BASOPHILS ABSOLUTE COUNT 0.00 K/mcL Normal 0.00-0.30 [facility] Comment on above: Performed By: #### L [id number] #### LAB [address] [place] [address] Jean Gary M.D. [id number] Basophils/100 WBC (Bld) 0.0 % [facility] Comment on above: Performed By: #### L [id number] #### LAB [address] [place] [address] Jean Gary M.D. [id number] Eosinophils (Bld) [#/Vol] 0.00 10*3/uL Normal 0.00-0.50 [facility] Comment on above: Performed By: #### L [id number] #### LAB [address] [place] [address] Jean Gary M.D. [id number] Eosinophils/100 WBC (Bld) 0.0 % [facility] Comment on above: Performed By: #### L [id number] #### LAB [address] [place] [address] Jean Gary M.D. [id number] Erythrocyte distribution width (RBC) [Ratio] 13.2 % Normal 11.6-14.8 [facility] Comment on above: Performed By: #### L [id number] #### LAB [address] [place] [address] Jean Gary M.D. [id number] Hematocrit (Bld) [Volume fraction] 30.6 % Low 36.0-46.0 [facility] Comment on above: Performed By: #### L [id number] #### LAB [address] [place] [address] Jean Gary M.D. [id number] Hemoglobin (Bld) [Mass/Vol] 10.2 g/dL Low 12.0-16.0 [facility] Comment on above: Performed By: #### L [id number] #### LAB [address] [place] [address] Jean Gary M.D. [id number] IG ABSOLUTE 0.03 K/mcL Normal 0.00-0.30 [facility] Comment on above: Performed By: #### L [id number] #### LAB [address] [place] [address] Jean Gary M.D. [id number] IG PERCENT 0.50 % [facility] Comment on above: Result Comment: The IG parameter is the percentage of metamyelocytes, myelocytes and promyelocytes. An immature granulocyte count (IG) of 1% or more suggests the possibility of infection, an IG count of 3% is very likely related to an infection. Performed By: #### L [id number] #### LAB [address] [place] [address] Jean Gary M.D. [id number] Lymphocytes (Bld) [#/Vol] 0.32 10*3/uL Low 0.90-4.00 [facility] Comment on above: Performed By: #### L [id number] #### LAB [address] [place] [address] Jean Gary M.D. [id number] Lymphocytes/100 WBC (Bld) 5.5 % Normal [facility] Comment on above: Performed By: #### L [id number] #### LAB [address] [place] [address] Jean Gary M.D. [id number] MCH (RBC) [Entitic mass] 31.7 pg Normal 26.0-34.0 [facility] Comment on above: Performed By: #### L [id number] #### LAB [address] [place] [address] Jean Gary M.D. [id number] MCV (RBC) [Entitic vol] 95.0 fL Normal 80.0-100.0 [facility] Comment on above: Performed By: #### L [id number] #### LAB [address] [place] [address] Jean Gary M.D. [id number] MEAN CORPUSCULAR HEMOGLOBIN CONC 33.3 g/dL Normal 31.0-37.0 [facility] Comment on above: Performed By: #### L [id number] #### LAB [address] [place] [address] Jean Gary M.D. [id number] Monocytes (Bld) [#/Vol] 0.34 10*3/uL Normal 0.30-0.90 [facility] Comment on above: Performed By: #### L [id number] #### LAB [address] [place] [address] Jean Gary M.D. [id number] Monocytes/100 WBC (Bld) 5.8 % Normal [facility] Comment on above: Performed By: #### L [id number] #### LAB [address] [place] [address] Jean Gary M.D. [id number] NEUTROPHILS ABSOLUTE COUNT 5.17 K/mcL Normal 1.70-7.00 [facility] Comment on above: Performed By: #### L [id number] #### LAB [address] [place] [address] Jean Gary M.D. [id number] Neutrophils/100 WBC (Bld) 88.2 % Normal [facility] Comment on above: Performed By: #### L [id number] #### LAB [address] [place] [address] Jean Gary M.D. [id number] Platelet mean volume (Bld) [Entitic vol] 10.3 fL Normal 9.4-12.4 [facility] Comment on above: Performed By: #### L [id number] ####[facility] LAB [address] [place] [address] Jean Gary M.D. [id number] Platelets (Bld) [#/Vol] 256 10*3/uL Normal 150-400 [facility] Comment on above: Performed By: #### L [id number] ####[facility] LAB [address] [place] [address] Jean Gary M.D. [id number] RBC (Bld) [#/Vol] 3.22 10*6/uL Low 4.00-5.20 [facility] Comment on above: Performed By: #### L [id number] ####[facility] LAB [address] [place] [address] Jean Gary M.D. [id number] WBC (Bld) [#/Vol] 5.86 10*3/uL Normal 4.50-11.00 [facility] Comment on above: Performed By: #### L [id number] ####[facility] LAB [address] [place] [address] Jean Gary M.D. [id number] US DUPLEX VENOUS LEGS BILATE RALon 02-27-2025 US DUPLEX VENOUS LEGS BILATERAL Normal [facility] XR CHEST PA/APon 02-27-2025 XR CHEST PA/AP Normal [facility] Comment on above: Order Comment: Injur y/Trauma or Illness?:Illness/OtherHow long have you had these symptoms (acute/chronic)?:AcuteReason for exam?:ptx evalHistory of cancer?:uSurgeries, chemotherapy, or radiation?:uType of Exam?:InitialAdditional signs and symptoms?:. BASIC METABOLIC PANELon 02-14 Anion gap [Moles/Vol] 11 mmol/L Normal - [facility] Comment on above: Order Comment: [facility] has implemented the eGFR calculation approach that does not have a coefficient for race that conforms to the NKF-ASN Task Force Recommendations. Performed By: #### 4 6124 ####[facility] [address] [address] Jean Gary M.D. [id number] Calcium [Mass/Vol] 8.0 mg/dL Low 8.4-10.2 [facility] Comment on above: Order Comment: [facility] has implemented the eGFR calculation approach that does not have a coefficient for race that conforms to the NKF-ASN Task Force Recommendations. Performed By: #### 4 6124 #### LAB [address] [address] Jean Gary M.D. [id number] Chloride [Moles/Vol] 98 mmol/L Normal 98-108 [facility] Comment on above: Order Comment: [facility] has implemented the eGFR calculation approach that does not have a coefficient for race that conforms to the NKF-ASN Task Force Recommendations. Performed By: #### 4 6124 #### LAB [address] [address] Jean Gary M.D. [id number] Creatinine [Mass/Vol] 0.37 mg/dL Low 0.60-1.20 [facility] Comment on above: Order Comment: [facility] has implemented the eGFR calculation approach that does not have a coefficient for race that conforms to the NKF-ASN Task Force Recommendations. Performed By: #### 4 6124 #### LAB [address] [address] Jean Gary M.D. [id number] EGFR 105 mL/min/1.73 m2 Normal >=60 [facility] Comment on above: Order Comment: [facility] has implemented the eGFR calculation approach that does not have a coefficient for race that conforms to the NKF-ASN Task Force Recommendations. Result Comment: Cassi mated GFR was calculated using the 2020 CKD-EPI creatinine equation. Performed By: #### 4 6124 #### LAB [address] [address] Jean Gary M.D. [id number] Glucose [Mass/Vol] 132 mg/dL High 65-99 [facility] Comment on above: Order Comment: [facility] has implemented the eGFR calculation approach that does not have a coefficient for race that conforms to the NKF-ASN Task Force Recommendations. Performed By: #### 4 6124 #### LAB [address] [address] Jean Gary M.D. [id number] HCO3 (Bld) [Moles/Vol] 24 mmol/L Normal 21-32 [facility] Comment on above: Order Comment: [facility] has implemented the eGFR calculation approach that does not have a coefficient for race that conforms to the NKF-ASN Task Force Recommendations. Performed By: #### 4 6124 #### LAB [address] [address] Jean Gary M.D. [id number] Potassium [Moles/Vol] 3.1 mmol/L Low 3.5-5.1 [facility] Comment on above: Order Comment: [facility] has implemented the eGFR calculation approach that does not have a coefficient for race that conforms to the NKF-ASN Task Force Recommendations. Performed By: #### 4 6124 #### LAB [address] [address] Jean Gary M.D. [id number] Sodium [Moles/Vol] 130 mmol/L Low 135-145 [facility] Comment on above: Order Comment: [facility] has implemented the eGFR calculation approach that does not have a coefficient for race that conforms to the NKF-ASN Task Force Recommendations. Performed By: #### 4 6124 #### LAB [address] [address] Jean Gary M.D. [id number] Urea nitrogen [Mass/Vol] 8 mg/dL Normal 8-25 [facility] Comment on above: Order Comment: [facility] has implemented the eGFR calculation approach that does not have a coefficient for race that conforms to the NKF-ASN Task Force Recommendations. Performed By: #### 4 6124 #### LAB [address] [address] Jean Gary M.D. [id number] Urea nitrogen/Creatinine [Mass ratio] 21.6 mg/mg High 10.0-20.0 [facility] Comment on above: Order Comment: [facility] has implemented the eGFR calculation approach that does not have a coefficient for race that conforms to the NKF-ASN Task Force Recommendations. Performed By: #### 4 6124 #### LAB [address] [address] Jean Gary M.D. [id number] CBC WITH AUTO DIFFERENTIALon 02-26-2025 AUTO NRBC 0.0 % [facility] Comment on above: Performed By: #### L [id number] #### LAB [address] [place] [address] Jean Gary M.D. [id number] AUTO NRBC ABS COUNT 0.00 K/mcL Normal 0.00-0.00 [facility] Comment on above: Performed By: #### L [id number] #### LAB [address] [place] [address] Jean Gary M.D. [id number] BASOPHILS ABSOLUTE COUNT 0.01 K/mcL Normal 0.00-0.30 [facility] Comment on above: Performed By: #### L [id number] #### LAB [address] [place] [address] Jean Gary M.D. [id number] Basophils/100 WBC (Bld) 0.2 % [facility] Comment on above: Performed By: #### L [id number] ####[facility] [address] [place] [address] Jean Gary M.D. [id number] Eosinophils (Bld) [#/Vol] 0.01 10*3/uL Normal 0.00-0.50 [facility] Comment on above: Performed By: #### L [id number] #### LAB [address] [place] [address] Jean Gary M.D. [id number] Eosinophils/100 WBC (Bld) 0.2 % [facility] Comment on above: Performed By: #### L [id number] #### LAB [address] [address] Jean Gary M.D. [id number] Erythrocyte distribution width (RBC) [Ratio] 13.2 % Normal 11.6-14.8 [facility] Comment on above: Performed By: #### L [id number] #### LAB [address] [address] Jean Gary M.D. [id number] Hematocrit (Bld) [Volume fraction] 27.6 % Low 36.0-46.0 [facility] Comment on above: Performed By: #### L [id number] #### LAB [address] [place] [address] Jean Gary M.D. [id number] Hemoglobin (Bld) [Mass/Vol] 8.7 g/dL Low 12.0-16.0 [facility] Comment on above: Performed By: #### L [id number] #### LAB [address] [place] [address] Jean Gary M.D. [id number] IG ABSOLUTE 0.04 K/mcL Normal 0.00-0.30 [facility] Comment on above: Performed By: #### L [id number] #### LAB [address] [place] [address] Jean Gary M.D. [id number] IG PERCENT 0.70 % Normal [facility] Comment on above: Result Comment: The IG parameter is the percentage of metamyelocytes, myelocytes and promyelocytes. An immature granulocyte count (IG) of 1% or more suggests the possibility of infection, an IG count of 3% is very likely related to an infection. Performed By: #### L [id number] #### LAB [address] [place] [address] Jean Gary M.D. [id number] Lymphocytes (Bld) [#/Vol] 0.70 10*3/uL Low 0.90-4.00 [facility] Comment on above: Performed By: #### L [id number] #### LAB [address] [address] Jean Gary M.D. [id number] Lymphocytes/100 WBC (Bld) 12.0 % Normal [facility] Comment on above: Performed By: #### L [id number] #### LAB [address] [address] Jean Gary M.D. [id number] MCH (RBC) [Entitic mass] 30.5 pg Normal 26.0-34.0 [facility] Comment on above: Performed By: #### L [id number] #### LAB [address] [address] Jean Gary M.D. [id number] MCV (RBC) [Entitic vol] 96.8 fL Normal 80.0-100.0 [facility] Comment on above: Performed By: #### L [id number] #### LAB [address] [place] [address] Jean Gary M.D. [id number] MEAN CORPUSCULAR HEMOGLOBIN CONC 31.5 g/dL Normal 31.0-37.0 [facility] Comment on above: Performed By: #### L [id number] #### LAB [address] [address] Jean Gary M.D. [id number] Monocytes (Bld) [#/Vol] 0.90 10*3/uL Normal 0.30-0.90 [facility] Comment on above: Performed By: #### L [id number] #### LAB [address] [address] Jean Gary M.D. [id number] Monocytes/100 WBC (Bld) 15.4 % Normal [facility] Comment on above: Performed By: #### L [id number] #### LAB [address] [place] [address] Jean Gary M.D. [id number] NEUTROPHILS ABSOLUTE COUNT 4.17 K/mcL Normal 1.70-7.00 [facility] Comment on above: Performed By: #### L [id number] #### LAB [address] [id number] Jean Gary M.D. [id number] Neutrophils/100 WBC (Bld) 71.5 % Normal [facility] Comment on above: Performed By: #### L [id number] #### LAB [address] [id number] Jean Gary M.D. [id number] Platelet mean volume (Bld) [Entitic vol] 9.8 fL Normal 9.4-12.4 [facility] Comment on above: Performed By: #### L [id number] #### LAB [address] [id number] Jean Gary M.D. [id number] Platelets (Bld) [#/Vol] 170 10*3/uL Normal 150-400 [facility] Comment on above: Performed By: #### L [id number] #### LAB [address] [address] Jean Gary M.D. [id number] RBC (Bld) [#/Vol] 2.85 10*6/uL Low 4.00-5.20 [facility] Comment on above: Performed By: #### L [id number] #### LAB [address] [address] Jean Gary M.D. [id number] WBC (Bld) [#/Vol] 5.83 10*3/uL Normal 4.50-11.00 [facility] Comment on above: Performed By: #### L [id number] #### LAB [address] [address] Jean Gary M.D. [id number] CONSULTon 02-26-2025 CONSULT Normal [facility] NT PRO BNPon 02-26-2025 Natriuretic peptide B (Bld) [Mass/Vol] 857 pg/mL High 0-300 [facility] Comment on above: Order Comment: Pride Study Cut-offsRule In:< /= 50 Years >450 pg/mL51 Years - 75 Years >900 pg/mL76 Years - 99 Years >1800 pg/mLRule Out:All patients <300 pg/mL Performed By: #### 4 7395 #### LAB [address] [place], [place] [address] Jean Gary M.D. [id number] XR CERVICAL SPINE AP/LATon 0 02-26-2025 XR CERVICAL SPINE AP/LAT [facility] Comment on above: Order Comment: Injur y/Trauma or Illness?:Illness/OtherHow long have you had these symptoms (acute/chronic)?:AcuteReason for exam?:neck painHistory of cancer?:uSurgeries, chemotherapy, or radiation?:uType of Exam?:InitialAdditional signs and symptoms?:s/p cervical sx XR CHEST PA/APon 02-26-2025 XR CHEST PA/AP [facility] Comment on above: Order Comment: Injur y/Trauma or Illness?:Illness/OtherHow long have you had these symptoms (acute/chronic)?:AcuteReason for exam?:chest tube placementHistory of cancer?:uSurgeries, chemotherapy, or radiation?:uType of Exam?:InitialAdditional signs and symptoms?:. XR CHEST PA/AP [facility] Comment on above: Order Comment: Injur y/Trauma or Illness?:Illness/OtherHow long have you had these symptoms (acute/chronic)?:AcuteReason for exam?:SOBHistory of cancer?:uSurgeries, chemotherapy, or radiation?:uType of Exam?:InitialAdditional signs and symptoms?:. BASIC METABOLIC PANELon 02-14 Anion gap [Moles/Vol] 14 mmol/L Normal 10-20 [facility] Comment on above: Order Comment: [facility] has implemented the eGFR calculation approach that does not have a coefficient for race that conforms to the NKF-ASN Task Force Recommendations. Performed By: #### 4 6124 #### LAB [address] [place], [place] [address] Jean Gary M.D. [id number] Calcium [Mass/Vol] 7.7 mg/dL Low 8.4-10.2 [facility] Comment on above: Order Comment: [facility] has implemented the eGFR calculation approach that does not have a coefficient for race that conforms to the NKF-ASN Task Force Recommendations. Performed By: #### 4 6124 #### LAB [address] [address] Jean Gary M.D. [id number] Chloride [Moles/Vol] 100 mmol/L Normal 98-108 [facility] Comment on above: Order Comment: [facility] has implemented the eGFR calculation approach that does not have a coefficient for race that conforms to the NKF-ASN Task Force Recommendations. Performed By: #### 4 6124 #### LAB [address] [address] Jean Gary M.D. [id number] Creatinine [Mass/Vol] 0.43 mg/dL Low 0.60-1.20 [facility] Comment on above: Order Comment: [facility] has implemented the eGFR calculation approach that does not have a coefficient for race that conforms to the NKF-ASN Task Force Recommendations. Performed By: #### 4 6124 #### LAB [address] [address] Jean Gary M.D. [id number] EGFR 101 mL/min/1.73 m2 Normal >=60 [facility] Comment on above: Order Comment: [facility] has implemented the eGFR calculation approach that does not have a coefficient for race that conforms to the NKF-ASN Task Force Recommendations. Result Comment: Cassi mated GFR was calculated using the 2020 CKD-EPI creatinine equation. Performed By: #### 4 6124 #### LAB [address] [address] Jean Gary M.D. [id number] Glucose [Mass/Vol] 111 mg/dL High 65-99 [facility] Comment on above: Order Comment: [facility] has implemented the eGFR calculation approach that does not have a coefficient for race that conforms to the NKF-ASN Task Force Recommendations. Performed By: #### 4 6124 #### LAB [address] [address] Jean Gary M.D. [id number] HCO3 (Bld) [Moles/Vol] 23 mmol/L Normal 21-32 [facility] Comment on above: Order Comment: [facility] has implemented the eGFR calculation approach that does not have a coefficient for race that conforms to the NKF-ASN Task Force Recommendations. Performed By: #### 4 6124 #### LAB [address] [place], [place] [address] Jean Gary M.D. [id number] Potassium [Moles/Vol] 3.8 mmol/L Normal 3.5-5.1 [facility] Comment on above: Order Comment: [facility] has implemented the eGFR calculation approach that does not have a coefficient for race that conforms to the NKF-ASN Task Force Recommendations. Performed By: #### 4 6124 #### LAB [address] [id number] Jean Gary M.D. [id number] Sodium [Moles/Vol] 133 mmol/L Low 135-145 [facility] Comment on above: Order Comment: [facility] has implemented the eGFR calculation approach that does not have a coefficient for race that conforms to the NKF-ASN Task Force Recommendations. Performed By: #### 4 6149 #### LAB [address] [id number] Jean Gary M.D. [id number] Urea nitrogen [Mass/Vol] 8 mg/dL Normal 8-25 [facility] Comment on above: Order Comment: [facility] has implemented the eGFR calculation approach that does not have a coefficient for race that conforms to the NKF-ASN Task Force Recommendations. Performed By: #### 4 6115 #### LAB [address] [id number] Jean Gary M.D. [id number] Urea nitrogen/Creatinine [Mass ratio] 18.6 mg/mg Normal 10.0-20.0 [facility] Comment on above: Order Comment: [facility] has implemented the eGFR calculation approach that does not have a coefficient for race that conforms to the NKF-ASN Task Force Recommendations. Performed By: #### 4 6124 #### LAB [address] [address] Jean Gary M.D. [id number] CBC WITH AUTO DIFFERENTIALon 02-25-2025 AUTO NRBC 0.0 % [facility] Comment on above: Performed By: #### L [id number] #### LAB [address] [address] Jean Gary M.D. [id number] AUTO NRBC ABS COUNT 0.00 K/mcL Normal 0.00-0.00 [facility] Comment on above: Performed By: #### L [id number] #### LAB [address] [address] Jean Gary M.D. [id number] BASOPHILS ABSOLUTE COUNT 0.03 K/mcL Normal 0.00-0.30 [facility] Comment on above: Performed By: #### L [id number] #### LAB [address] [address] Jean Gary M.D. [id number] Basophils/100 WBC (Bld) 0.5 % [facility] Comment on above: Performed By: #### L [id number] #### LAB [address] [place] [address] Jean Gary M.D. [id number] Eosinophils (Bld) [#/Vol] 0.01 10*3/uL Normal 0.00-0.50 [facility] Comment on above: Performed By: #### L [id number] #### LAB [address] [address] Jean Gary M.D. [id number] Eosinophils/100 WBC (Bld) 0.2 % [facility] Comment on above: Performed By: #### L [id number] #### LAB [address] [place] [address] Jean Gary M.D. [id number] Erythrocyte distribution width (RBC) [Ratio] 13.5 % Normal 11.6-14.8 [facility] Comment on above: Performed By: #### L [id number] #### LAB [address] [address] Jean Gary M.D. [id number] Hematocrit (Bld) [Volume fraction] 28.1 % Low 36.0-46.0 [facility] Comment on above: Performed By: #### L [id number] #### LAB [address] [address] Jean Gary M.D. [id number] Hemoglobin (Bld) [Mass/Vol] 9.0 g/dL Low 12.0-16.0 [facility] Comment on above: Performed By: #### L [id number] #### LAB [address] [address] Jean Gary M.D. [id number] IG ABSOLUTE 0.03 K/mcL Normal 0.00-0.30 [facility] Comment on above: Performed By: #### L [id number] #### LAB [address] [place] [address] Jean Gary M.D. [id number] IG PERCENT 0.50 % [facility] Comment on above: Result Comment: The IG parameter is the percentage of metamyelocytes, myelocytes and promyelocytes. An immature granulocyte count (IG) of 1% or more suggests the possibility of infection, an IG count of 3% is very likely related to an infection. Performed By: #### L [id number] #### LAB [address] [address] Jean Gary M.D. [id number] Lymphocytes (Bld) [#/Vol] 0.78 10*3/uL Low 0.90-4.00 [facility] Comment on above: Performed By: #### L [id number] #### LAB [address] [address] Jean Gary M.D. [id number] Lymphocytes/100 WBC (Bld) 13.5 % [facility] Comment on above: Performed By: #### L [id number] #### LAB [address] [place] [address] Jean Gary M.D. [id number] MCH (RBC) [Entitic mass] 31.0 pg Normal 26.0-34.0 [facility] Comment on above: Performed By: #### L [id number] #### LAB [address] [address] Jean Gary M.D. [id number] MCV (RBC) [Entitic vol] 96.9 fL Normal 80.0-100.0 [facility] Comment on above: Performed By: #### L [id number] ####[facility] [address] [address] Jean Gary M.D. [id number] MEAN CORPUSCULAR HEMOGLOBIN CONC 32.0 g/dL Normal 31.0-37.0 [facility] Comment on above: Performed By: #### L [id number] #### LAB [address] [address] Jean Gary M.D. [id number] Monocytes (Bld) [#/Vol] 0.96 10*3/uL High 0.30-0.90 [facility] Comment on above: Performed By: #### L [id number] #### LAB [address] [address] Jean Gary M.D. [id number] Monocytes/100 WBC (Bld) 16.6 % Normal [facility] Comment on above: Performed By: #### L [id number] #### LAB [address] [address] Jean Gary M.D. [id number] NEUTROPHILS ABSOLUTE COUNT 3.98 K/mcL Normal 1.70-7.00 [facility] Comment on above: Performed By: #### L [id number] #### LAB [address] [address] Jean Gary M.D. [id number] Neutrophils/100 WBC (Bld) 68.7 % Normal [facility] Comment on above: Performed By: #### L [id number] #### LAB [address] [id number] Jean Gary M.D. [id number] Platelet mean volume (Bld) [Entitic vol] 10.3 fL Normal 9.4-12.4 [facility] Comment on above: Performed By: #### L [id number] ####[facility] [address] [address] Jean Gary M.D. [id number] Platelets (Bld) [#/Vol] 189 10*3/uL Normal 150-400 [facility] Comment on above: Performed By: #### L [id number] ####[facility] [address] [address] Jean Gary M.D. [id number] RBC (Bld) [#/Vol] 2.90 10*6/uL Low 4.00-5.20 [facility] Comment on above: Performed By: #### L [id number] ####[facility] [address] [address] Jean Gary M.D. [id number] WBC (Bld) [#/Vol] 5.79 10*3/uL Normal 4.50-11.00 [facility] Comment on above: Performed By: #### L [id number] ####[facility] [address] [address] Jean Gary M.D. [id number] VANCOMYCIN LEVEL, RANDOMon 0 02-25-2025 VANCOMYCIN RANDOM 7.2 mcg/mL Normal [facility] Comment on above: Order Comment: As of 05/2022 vancomycin dosing for [facility] inpatients will be done by Bayesian dosing software rather than off traditional trough values. Please contact the site specific inpatient pharmacy before making dose changes off of trough values alone for admitted patients.No established reference range. Performed By: #### 4 6651 ####[facility] [address] [address] Jean Gary M.D. [id number] BASIC METABOLIC PANELon 07- Anion gap [Moles/Vol] 14 mmol/L Normal 10-20 [facility] Comment on above: Order Comment: [facility] has implemented the eGFR calculation approach that does not have a coefficient for race that conforms to the NKF-ASN Task Force Recommendations. Performed By: #### 4 6124 #### LAB [address] [place], [place] [address] Jean Gary M.D. [id number] Calcium [Mass/Vol] 8.0 mg/dL Low 8.4-10.2 [facility] Comment on above: Order Comment: [facility] has implemented the eGFR calculation approach that does not have a coefficient for race that conforms to the NKF-ASN Task Force Recommendations. Performed By: #### 4 6124 #### LAB [address] [id number] Jean Gary M.D. [id number] Chloride [Moles/Vol] 102 mmol/L Normal 98-108 [facility] Comment on above: Order Comment: [facility] has implemented the eGFR calculation approach that does not have a coefficient for race that conforms to the NKF-ASN Task Force Recommendations. Performed By: #### 4 6124 #### LAB [address] [place], [place] [address] Jean Gary M.D. [id number] Creatinine [Mass/Vol] 0.57 mg/dL Low 0.60-1.20 [facility] Comment on above: Order Comment: [facility] has implemented the eGFR calculation approach that does not have a coefficient for race that conforms to the NKF-ASN Task Force Recommendations. Performed By: #### 4 6124 #### LAB [address] [place], [place] [address] Jean Gary M.D. [id number] EGFR 94 mL/min/1.73 m2 Normal >=60 [facility] Comment on above: Order Comment: [facility] has implemented the eGFR calculation approach that does not have a coefficient for race that conforms to the NKF-ASN Task Force Recommendations. Result Comment: Cassi mated GFR was calculated using the 2020 CKD-EPI creatinine equation. Performed By: #### 4 6170 ####[facility] [address] [id number] Jean Gary M.D. [id number] Glucose [Mass/Vol] 117 mg/dL High 65-99 [facility] Comment on above: Order Comment: [facility] has implemented the eGFR calculation approach that does not have a coefficient for race that conforms to the NKF-ASN Task Force Recommendations. Performed By: #### 4 6124 #### LAB [address] [address] Jean Gary M.D. [id number] HCO3 (Bld) [Moles/Vol] 23 mmol/L Normal 21-32 [facility] Comment on above: Order Comment: [facility] [facility] has implemented the eGFR calculation approach that does not have a coefficient for race that conforms to the NKF-ASN Task Force Recommendations. Performed By: #### 4 [id number] #### LAB [address] [address] Jean Gary M.D. [id number] Potassium [Moles/Vol] 4.3 mmol/L Normal 3.5-5.1 [facility] Comment on above: Order Comment: [facility] has implemented the eGFR calculation approach that does not have a coefficient for race that conforms to the NKF-ASN Task Force Recommendations. Performed By: #### 4 6124 #### LAB [address] [address] Jean Gary M.D. [id number] Sodium [Moles/Vol] 135 mmol/L Normal 135-145 [facility] [place] Comment on above: Order Comment: [facility] has implemented the eGFR calculation approach that does not have a coefficient for race that conforms to the NKF-ASN Task Force Recommendations. Performed By: #### 4 6124 #### LAB [address] [address] Jean Gary M.D. [id number] Urea nitrogen [Mass/Vol] 9 mg/dL Normal 8-25 [facility] Comment on above: Order Comment: [facility] has implemented the eGFR calculation approach that does not have a coefficient for race that conforms to the NKF-ASN Task Force Recommendations. Performed By: #### 4 6124 #### LAB [address] [address] Jean Gary M.D. [id number] Urea nitrogen/Creatinine [Mass ratio] 15.8 mg/mg Normal 10.0-20.0 [facility] Comment on above: Order Comment: [facility] has implemented the eGFR calculation approach that does not have a coefficient for race that conforms to the NKF-ASN Task Force Recommendations. Performed By: #### 4 6124 #### LAB [address] [address] Jean Gary M.D. [id number] CBC WITH AUTO DIFFERENTIALon 02-24-2025 AUTO NRBC 0.0 % [facility] Comment on above: Performed By: #### L [id number] #### LAB [address] [place] [address] Jean Gary M.D. [id number] AUTO NRBC ABS COUNT 0.00 K/mcL Normal 0.00-0.00 [facility] Comment on above: Performed By: #### L [id number] #### LAB [address] [address] Jean Gary M.D. [id number] BASOPHILS ABSOLUTE COUNT 0.01 K/mcL Normal 0.00-0.30 [facility] Comment on above: Performed By: #### L [id number] #### LAB [address] [place] [address] Jean Gary M.D. [id number] Basophils/100 WBC (Bld) 0.1 % [facility] Comment on above: Performed By: #### L [id number] #### LAB [address] [place] [address] Jean Gary M.D. [id number] Eosinophils (Bld) [#/Vol] 0.00 10*3/uL Normal 0.00-0.50 [facility] Comment on above: Performed By: #### L [id number] #### LAB [address] [address] Jean Gary M.D. [id number] Eosinophils/100 WBC (Bld) 0.0 % Normal [facility] Comment on above: Performed By: #### L [id number] #### LAB [address] [address] Jean Gary M.D. [id number] Erythrocyte distribution width (RBC) [Ratio] 13.4 % Normal 11.6-14.8 [facility] Comment on above: Performed By: #### L [id number] #### LAB [address] [address] Jean Gary M.D. [id number] Hematocrit (Bld) [Volume fraction] 30.5 % Low 36.0-46.0 [facility] Comment on above: Performed By: #### L [id number] #### LAB [address] [address] Jean Gary M.D. [id number] Hemoglobin (Bld) [Mass/Vol] 9.9 g/dL Low 12.0-16.0 [facility] Comment on above: Performed By: #### L [id number] #### LAB [address] [address] Jean Gary M.D. [id number] IG ABSOLUTE 0.04 K/mcL Normal 0.00-0.30 [facility] Comment on above: Performed By: #### L [id number] #### LAB [address] [address] Jean Gary M.D. [id number] IG PERCENT 0.60 % Normal [facility] Comment on above: Result Comment: The IG parameter is the percentage of metamyelocytes, myelocytes and promyelocytes. An immature granulocyte count (IG) of 1% or more suggests the possibility of infection, an IG count of 3% is very likely related to an infection. Performed By: #### L [id number] #### LAB [address] [place] [address] Jean Gary M.D. [id number] Lymphocytes (Bld) [#/Vol] 0.88 10*3/uL Low 0.90-4.00 [facility] Comment on above: Performed By: #### L [id number] #### LAB [address] [address] Jean Gary M.D. [id number] Lymphocytes/100 WBC (Bld) 12.4 % Normal [facility] Comment on above: Performed By: #### L [id number] ####[facility] [address] [address] Jean Gary M.D. [id number] MCH (RBC) [Entitic mass] 30.7 pg Normal 26.0-34.0 [facility] Comment on above: Performed By: #### L [id number] #### LAB [address] [address] Jean Gary M.D. [id number] MCV (RBC) [Entitic vol] 94.7 fL Normal 80.0-100.0 [facility] Comment on above: Performed By: #### L [id number] #### LAB [address] [address] Jean Gary M.D. [id number] MEAN CORPUSCULAR HEMOGLOBIN CONC 32.5 g/dL Normal 31.0-37.0 [facility] Comment on above: Performed By: #### L [id number] #### LAB [address] [place] [address] Jean Gary M.D. [id number] Monocytes (Bld) [#/Vol] 0.84 10*3/uL Normal 0.30-0.90 [facility] Comment on above: Performed By: #### L [id number] #### LAB [address] [address] Jean Gary M.D. [id number] Monocytes/100 WBC (Bld) 11.8 % Normal [facility] Comment on above: Performed By: #### L [id number] #### LAB [address] [address] Jean Gary M.D. [id number] NEUTROPHILS ABSOLUTE COUNT 5.33 K/mcL Normal 1.70-7.00 [facility] Comment on above: Performed By: #### L [id number] #### LAB [address] [address] Jean Gary M.D. [id number] Neutrophils/100 WBC (Bld) 75.1 % Normal [facility] Comment on above: Performed By: #### L [id number] ####[facility] LAB [address] [address] Jean Gary M.D. [id number] Platelet mean volume (Bld) [Entitic vol] 9.8 fL Normal 9.4-12.4 [facility] Comment on above: Performed By: #### L [id number] #### LAB [address] [address] Jean Gary M.D. [id number] Platelets (Bld) [#/Vol] 245 10*3/uL Normal 150-400 [facility] Comment on above: Performed By: #### L [id number] ####[facility] LAB [address] [address] Jean Gary M.D. [id number] RBC (Bld) [#/Vol] 3.22 10*6/uL Low 4.00-5.20 [facility] Comment on above: Performed By: #### L [id number] ####[facility] LAB [address] [address] Jean Gary M.D. [id number] WBC (Bld) [#/Vol] 7.10 10*3/uL Normal 4.50-11.00 [facility] Comment on above: Performed By: #### L [id number] ####[facility] LAB [address] [address] Jean Gary M.D. [id number] [facility] Glucose [Mass/Vol] 114 mg/dL High 65-99 [facility] Comment on above: Performed By: #### 4 6932 ####[facility] LAB [address] [place], [place] [address] Jean Gary M.D. [id number] Glucose [Mass/Vol] 166 mg/dL High 65-99 [facility] Comment on above: Performed By: #### 4 6932 ####[facility] LAB [address] [place], [place] [address] Jean Gary M.D. [id number] Glucose [Mass/Vol] 129 mg/dL High 65-99 [facility] Comment on above: Performed By: #### 4 6932 #### LAB [address] [id number] Jean Gary M.D. [id number] ABORHon 02-23-2024 ABO and Rh group Nom (Bld) ABORH: A Positive Normal [facility] BASIC METABOLIC PANELon 02-14 Anion gap [Moles/Vol] 16 mmol/L Normal 10-20 [facility] Comment on above: Order Comment: [facility] has implemented the eGFR calculation approach that does not have a coefficient for race that conforms to the NKF-ASN Task Force Recommendations. Performed By: #### 4 6124 #### LAB [address] [address] Jean Gary M.D. [id number] Calcium [Mass/Vol] 8.9 mg/dL Normal 8.4-10.2 [facility] Comment on above: Order Comment: [facility] has implemented the eGFR calculation approach that does not have a coefficient for race that conforms to the NKF-ASN Task Force Recommendations. Performed By: #### 4 6124 #### LAB [address] [place], [place] [address] Jean Gary M.D. [id number] Chloride [Moles/Vol] 99 mmol/L Normal 98-108 [facility] Comment on above: Order Comment: [facility] has implemented the eGFR calculation approach that does not have a coefficient for race that conforms to the NKF-ASN Task Force Recommendations. Performed By: #### 4 6124 #### LAB [address] [place], [place] [address] Jean Gary M.D. [id number] Creatinine [Mass/Vol] 0.72 mg/dL Normal 0.60-1.20 [facility] Comment on above: Order Comment: [facility] has implemented the eGFR calculation approach that does not have a coefficient for race that conforms to the NKF-ASN Task Force Recommendations. Performed By: #### 4 6124 #### LAB [address] [address] Jean Gary M.D. [id number] EGFR 87 mL/min/1.73 m2 Normal >=60 [facility] Comment on above: Order Comment: [facility] has implemented the eGFR calculation approach that does not have a coefficient for race that conforms to the NKF-ASN Task Force Recommendations. Result Comment: Cassi mated GFR was calculated using the 2020 CKD-EPI creatinine equation. Performed By: #### 4 6124 #### LAB [address] [address] Jean Gary M.D. [id number] Glucose [Mass/Vol] 127 mg/dL High 65-99 [facility] Comment on above: Order Comment: [facility] has implemented the eGFR calculation approach that does not have a coefficient for race that conforms to the NKF-ASN Task Force Recommendations. Performed By: #### 4 6124 #### LAB [address] [address] Jean Gary M.D. [id number] HCO3 (Bld) [Moles/Vol] 24 mmol/L Normal 21-32 [facility] Comment on above: Order Comment: [facility] has implemented the eGFR calculation approach that does not have a coefficient for race that conforms to the NKF-ASN Task Force Recommendations. Performed By: #### 4 6124 #### LAB [address] [address] Jean Gary M.D. [id number] Potassium [Moles/Vol] 3.9 mmol/L Normal 3.5-5.1 [facility] Comment on above: Order Comment: [facility] has implemented the eGFR calculation approach that does not have a coefficient for race that conforms to the NKF-ASN Task Force Recommendations. Performed By: #### 4 6124 #### LAB [address] [address] Jean Gary M.D. [id number] Sodium [Moles/Vol] 135 mmol/L Normal 135-145 [facility] Comment on above: Order Comment: [facility] has implemented the eGFR calculation approach that does not have a coefficient for race that conforms to the NKF-ASN Task Force Recommendations. Performed By: #### 4 6124 #### LAB [address] [address] Jean Gary M.D. [id number] Urea nitrogen [Mass/Vol] 14 mg/dL Normal 8-25 [facility] Comment on above: Order Comment: [facility] has implemented the eGFR calculation approach that does not have a coefficient for race that conforms to the NKF-ASN Task Force Recommendations. Performed By: #### 4 6124 #### LAB [address] [address] Jean Gary M.D. [id number] Urea nitrogen/Creatinine [Mass ratio] 19.4 mg/mg Normal 10.0-20.0 [facility] Comment on above: Order Comment: [facility] has implemented the eGFR calculation approach that does not have a coefficient for race that conforms to the NKF-ASN Task Force Recommendations. Performed By: #### 4 6124 #### LAB [address] [address] Jean Gary M.D. [id number] CBC WITH AUTO DIFFERENTIALon 02-23-2025 AUTO NRBC 0.0 % Normal [facility] Comment on above: Performed By: #### L [id number] ####[facility] LAB [address] [address] Jean Gary M.D. [id number] AUTO NRBC ABS COUNT 0.00 K/mcL Normal 0.00-0.00 [facility] Comment on above: Performed By: #### L [id number] #### LAB [address] [address] Jean Gary M.D. [id number] BASOPHILS ABSOLUTE COUNT 0.04 K/mcL Normal 0.00-0.30 [facility] Comment on above: Performed By: #### L [id number] #### LAB [address] [address] Jean Gary M.D. [id number] Basophils/100 WBC (Bld) 0.8 % Normal [facility] Comment on above: Performed By: #### L [id number] #### LAB [address] [address] Jean Gary M.D. [id number] Eosinophils (Bld) [#/Vol] 0.06 10*3/uL Normal 0.00-0.50 [facility] Comment on above: Performed By: #### L [id number] #### LAB [address] [address] Jean Gary M.D. [id number] Eosinophils/100 WBC (Bld) 1.2 % Normal [facility] Comment on above: Performed By: #### L [id number] #### LAB [address] [place] [address] Jean Gary M.D. [id number] Erythrocyte distribution width (RBC) [Ratio] 13.2 % Normal 11.6-14.8 [facility] Comment on above: Performed By: #### L [id number] #### LAB [address] [address] Jean Gary M.D. [id number] Hematocrit (Bld) [Volume fraction] 39.5 % Normal 36.0-46.0 [facility] Comment on above: Performed By: #### L [id number] #### LAB [address] [place] [address] Jean Gary M.D. [id number] Hemoglobin (Bld) [Mass/Vol] 12.9 g/dL Normal 12.0-16.0 [facility] Comment on above: Performed By: #### L [id number] #### LAB [address] [address] Jean Gary M.D. [id number] IG ABSOLUTE 0.02 K/mcL Normal 0.00-0.30 [facility] Comment on above: Performed By: #### L [id number] #### LAB [address] [address] Jean Gary M.D. [id number] IG PERCENT 0.40 % Normal [facility] Comment on above: Result Comment: The IG parameter is the percentage of metamyelocytes, myelocytes and promyelocytes. An immature granulocyte count (IG) of 1% or more suggests the possibility of infection, an IG count of 3% is very likely related to an infection. Performed By: #### L [id number] #### LAB [address] [address] Jean Gary M.D. [id number] Lymphocytes (Bld) [#/Vol] 1.34 10*3/uL Normal 0.90-4.00 [facility] Comment on above: Performed By: #### L [id number] #### LAB [address] [address] Jean Gary M.D. [id number] Lymphocytes/100 WBC (Bld) 26.2 % Normal [facility] Comment on above: Performed By: #### L [id number] #### LAB [address] [address] Jean Gary M.D. [id number] MCH (RBC) [Entitic mass] 31.0 pg Normal 26.0-34.0 [facility] Comment on above: Performed By: #### L [id number] #### LAB [address] [address] Jean Gary M.D. [id number] MCV (RBC) [Entitic vol] 95.0 fL Normal 80.0-100.0 [facility] Comment on above: Performed By: #### L [id number] #### LAB [address] [address] Jean Gary M.D. [id number] MEAN CORPUSCULAR HEMOGLOBIN CONC 32.7 g/dL Normal 31.0-37.0 [facility] Comment on above: Performed By: #### L [id number] #### LAB [address] [address] Jean Gary M.D. [id number] Monocytes (Bld) [#/Vol] 0.77 10*3/uL Normal 0.30-0.90 [facility] Comment on above: Performed By: #### L [id number] #### LAB [address] [address] Jean Gary M.D. [id number] Monocytes/100 WBC (Bld) 15.1 % Normal [facility] Comment on above: Performed By: #### L [id number] #### LAB [address] [address] Jean Gary M.D. [id number] NEUTROPHILS ABSOLUTE COUNT 2.88 K/mcL Normal 1.70-7.00 [facility] Comment on above: Performed By: #### L [id number] #### LAB [address] [address] Jean Gary M.D. [id number] Neutrophils/100 WBC (Bld) 56.3 % Normal [facility] Comment on above: Performed By: #### L [id number] #### LAB [address] [address] Jean Gary M.D. [id number] Platelet mean volume (Bld) [Entitic vol] 9.8 fL Normal 9.4-12.4 [facility] Comment on above: Performed By: #### L [id number] #### LAB [address] [address] Jean Gary M.D. [id number] Platelets (Bld) [#/Vol] 296 10*3/uL Normal 150-400 [facility] Comment on above: Performed By: #### L [id number] ####[facility] LAB [address] [id number] Jean Gary M.D. [id number] RBC (Bld) [#/Vol] 4.16 10*6/uL Normal 4.00-5.20 [facility] Comment on above: Performed By: #### L [id number] ####[facility] LAB [address] [address] Jean Gary M.D. [id number] WBC (Bld) [#/Vol] 5.11 10*3/uL Normal 4.50-11.00 [facility] Comment on above: Performed By: #### L [id number] ####[facility] LAB [address] [address] Jean Gary M.D. [id number] H AND Pancho 02-23-2025 H AND P Normal [facility] H AND P Normal [facility] OP NOTEon 02-23-2025 OP NOTE Normal [facility] OP NOTE Normal [facility] POC ABG SURG - RALSon 2024 BASE EXCESS, ARTERIAL ISTAT -3 Low -2-2 [facility] Comment on above: Performed By: #### 4 8737 ####[facility] LAB [address] [address] Jean Gary M.D. [id number] Glucose [Mass/Vol] 156 mg/dL High 65-99 [facility] Comment on above: Performed By: #### 4 8737 ####[facility] LAB [address] [id number] Jean Gary M.D. [id number] HCO3 (Bld) [Moles/Vol] 21.5 mmol/L Low 22.0-26.0 [facility] Comment on above: Performed By: #### 4 8737 ####[facility] LAB [address] [id number] Jean Gary M.D. [id number] Hematocrit (Bld) [Volume fraction] 27 % Low 36-46 [facility] Comment on above: Performed By: #### 4 8737 #### LAB [address] [address] Jean Gary M.D. [id number] Hemoglobin (Bld) [Mass/Vol] 9.2 g/dL Low 12.0-16.0 [facility] Comment on above: Performed By: #### 4 8737 ####[facility] LAB [address] [address] Jean Gary M.D. [id number] Oxygen saturation in Blood 100.0 % High 92.0-99.0 [facility] Comment on above: Performed By: #### 4 8737 #### LAB [address] [address] Jean Gary M.D. [id number] PCO2 ARTERIAL 37.0 mm Hg Normal 35.0-45.0 [facility] Comment on above: Performed By: #### 4 8737 #### LAB [address] [address] Jean Gary M.D. [id number] PH ARTERIAL 7.37 Normal 7.35-7.45 [facility] Comment on above: Performed By: #### 4 8737 #### LAB [address] [address] Jean Gary M.D. [id number] PO2 ARTERIAL 277 mm Hg High 75-85 [facility] Comment on above: Performed By: #### 4 8737 ####[facility] LAB [address] [address] Jean Gary M.D. [id number] POC IONIZED CALCIUM 4.9 mg/dL Normal 4.5-5.3 [facility] Comment on above: Performed By: #### 4 8748 ####[facility] LAB [address] [address] Jean Gary M.D. [id number] Potassium [Moles/Vol] 3.4 mmol/L Low 3.5-5.1 [facility] Comment on above: Performed By: #### 4 8796 ####[facility] LAB [address] [address] eJan Gary M.D. [id number] Sodium [Moles/Vol] 135 mmol/L Normal 135-145 [facility] Comment on above: Performed By: #### 4 8737 #### LAB [address] [address] Jean Gary M.D. [id number] BASE EXCESS, ARTERIAL ISTAT -2 Normal -2-2 [facility] Comment on above: Performed By: #### 4 8737 #### LAB [address] [address] Jean Gary M.D. [id number] Glucose [Mass/Vol] 153 mg/dL High 65-99 [facility] Comment on above: Performed By: #### 4 8737 #### LAB [address] [address] Jean Gary M.D. [id number] HCO3 (Bld) [Moles/Vol] 22.3 mmol/L Normal 22.0-26.0 [facility] Comment on above: Performed By: #### 4 8737 #### LAB [address] [address] Jean Gary M.D. [id number] Hematocrit (Bld) [Volume fraction] 25 % Low 36-46 [facility] Comment on above: Performed By: #### 4 8737 #### LAB [address] [address] Jean Gary M.D. [id number] Hemoglobin (Bld) [Mass/Vol] 8.5 g/dL Low 12.0-16.0 [facility] Comment on above: Performed By: #### 4 8737 #### LAB [address] [address] Jean Gary M.D. [id number] Oxygen saturation in Blood 100.0 % High 92.0-99.0 [facility] Comment on above: Performed By: #### 4 8703 #### LAB [address] [address] Jean Gary M.D. [id number] PCO2 ARTERIAL 36.4 mm Hg Normal 35.0-45.0 [facility] Comment on above: Performed By: #### 4 8737 ####[facility] [address] [address] Jean Gary M.D. [id number] PH ARTERIAL 7.39 Normal 7.35-7.45 [facility] Comment on above: Performed By: #### 4 8737 ####[facility] [address] [address] Jean Gary M.D. [id number] PO2 ARTERIAL 279 mm Hg High 75-85 [facility] Comment on above: Performed By: #### 4 8737 ####[facility] LAB [address] [address] Jean Gary M.D. [id number] POC IONIZED CALCIUM 4.7 mg/dL Normal 4.5-5.3 [facility] Comment on above: Performed By: #### 4 8737 ####[facility] LAB [address] [address] Jean Gary M.D. [id number] Potassium [Moles/Vol] 3.3 mmol/L Low 3.5-5.1 [facility] Comment on above: Performed By: #### 4 8737 ####[facility] LAB [address] [address] Jean Gary M.D. [id number] Sodium [Moles/Vol] 136 mmol/L Normal 135-145 [facility] Comment on above: Performed By: #### 4 8737 ####[facility] LAB [address] [address] Jean Gary M.D. [id number] BASE EXCESS, ARTERIAL ISTAT -2 Normal -2-2 [facility] Comment on above: Performed By: #### 4 8737 ####[facility] [address] [address] Jean Gary M.D. [id number] Glucose [Mass/Vol] 149 mg/dL High 65-99 [facility] Comment on above: Performed By: #### 4 8737 ####[facility] LAB [address] [address] Jean Gary M.D. [id number] HCO3 (Bld) [Moles/Vol] 23.1 mmol/L Normal 22.0-26.0 [facility] Comment on above: Performed By: #### 4 8737 ####[facility] [address] [address] Jean Gary M.D. [id number] Hematocrit (Bld) [Volume fraction] 26 % Low 36-46 [facility] Comment on above: Performed By: #### 4 8737 ####[facility] [address] [address] Jean Gary M.D. [id number] Hemoglobin (Bld) [Mass/Vol] 8.8 g/dL Low 12.0-16.0 [facility] Comment on above: Performed By: #### 4 8737 ####[facility] [address] [address] Jean Gary M.D. [id number] Oxygen saturation in Blood 100.0 % High 92.0-99.0 [facility] Comment on above: Performed By: #### 4 8737 ####[facility] [address] [address] Jean Gary M.D. [id number] PCO2 ARTERIAL 39.8 mm Hg Normal 35.0-45.0 [facility] Comment on above: Performed By: #### 4 8737 ####[facility] [address] [address] Jean Gary M.D. [id number] PH ARTERIAL 7.37 Normal 7.35-7.45 [facility] Comment on above: Performed By: #### 4 8792 ####[facility] [address] [address] Jean Gary M.D. [id number] PO2 ARTERIAL 273 mm Hg High 75-85 [facility] Comment on above: Performed By: #### 4 8779 #### LAB [address] [address] Jean Gary M.D. [id number] POC IONIZED CALCIUM 4.5 mg/dL Normal 4.5-5.3 [facility] Comment on above: Performed By: #### 4 8737 ####[facility] LAB [address] [address] Jean Gary M.D. [id number] Potassium [Moles/Vol] 3.3 mmol/L Low 3.5-5.1 [facility] Comment on above: Performed By: #### 4 [id number] #### LAB [address] [address] Jean Gary M.D. [id number] Sodium [Moles/Vol] 136 mmol/L Normal 135-145 [facility] Comment on above: Performed By: #### 4 [id number] #### LAB [address] [address] Jean Gary M.D. [id number] BASE EXCESS, ARTERIAL ISTAT -2 Normal -2-2 [facility] Comment on above: Performed By: #### 4 [id number] #### LAB [address] [address] Jean Gary M.D. [id number] Glucose [Mass/Vol] 151 mg/dL High 65-99 [facility] [place] Comment on above: Performed By: #### 4 8737 ####[facility] [address] [address] Jean Gary M.D. [id number] HCO3 (Bld) [Moles/Vol] 22.4 mmol/L Normal 22.0-26.0 [facility] Comment on above: Performed By: #### 4 8737 ####[facility] LAB [address] [address] Jean Gary M.D. [id number] Hematocrit (Bld) [Volume fraction] 27 % Low 36-46 [facility] Comment on above: Performed By: #### 4 8783 ####[facility] LAB [address] [address] Jean Gary M.D. [id number] Hemoglobin (Bld) [Mass/Vol] 9.2 g/dL Low 12.0-16.0 [facility] Comment on above: Performed By: #### 4 8737 ####[facility] LAB [address] [address] Jean Gary M.D. [id number] Oxygen saturation in Blood 100.0 % High 92.0-99.0 [facility] Comment on above: Performed By: #### 4 8737 #### LAB [address] [address] Jean Gary M.D. [id number] PCO2 ARTERIAL 37.3 mm Hg Normal 35.0-45.0 [facility] Comment on above: Performed By: #### 4 8737 #### LAB [address] [address] Jean Gary M.D. [id number] PH ARTERIAL 7.39 Normal 7.35-7.45 [facility] Comment on above: Performed By: #### 4 8737 ####[facility] [address] [address] Jean Gary M.D. [id number] PO2 ARTERIAL 272 mm Hg High 75-85 [facility] Comment on above: Performed By: #### 4 8737 #### LAB [address] [address] Jean Gary M.D. [id number] POC IONIZED CALCIUM 4.6 mg/dL Normal 4.5-5.3 [facility] Comment on above: Performed By: #### 4 8737 #### LAB [address] [address] Jean Gary M.D. [id number] Potassium [Moles/Vol] 3.3 mmol/L Low 3.5-5.1 [facility] Comment on above: Performed By: #### 4 8742 ####[facility] [address] [address] Jean Gary M.D. [id number] Sodium [Moles/Vol] 136 mmol/L Normal 135-145 [facility] Comment on above: Performed By: #### 4 8737 ####[facility] [address] [address] Jean Gary M.D. [id number] BASE EXCESS, ARTERIAL ISTAT -3 Low -2-2 [facility] Comment on above: Performed By: #### 4 8737 ####[facility] [address] [address] Jean Gary M.D. [id number] Glucose [Mass/Vol] 159 mg/dL High 65-99 [facility] Comment on above: Performed By: #### 4 8737 ####[facility] [address] [address] Jean Gary M.D. [id number] HCO3 (Bld) [Moles/Vol] 22.2 mmol/L Normal 22.0-26.0 [facility] Comment on above: Performed By: #### 4 8737 ####[facility] [address] [address] Jean Gary M.D. [id number] Hematocrit (Bld) [Volume fraction] 27 % Low 36-46 [facility] Comment on above: Performed By: #### 4 8737 ####[facility] [address] [address] Jean Gary M.D. [id number] Hemoglobin (Bld) [Mass/Vol] 9.2 g/dL Low 12.0-16.0 [facility] Comment on above: Performed By: #### 4 8737 ####[facility] [address] [address] Jean Gary M.D. [id number] Oxygen saturation in Blood 100.0 % High 92.0-99.0 [facility] Comment on above: Performed By: #### 4 8737 ####[facility] [address] [address] Jean Gary M.D. [id number] PCO2 ARTERIAL 37.7 mm Hg Normal 35.0-45.0 [facility] Comment on above: Performed By: #### 4 8737 ####[facility] [address] [address] Jean Gary M.D. [id number] PH ARTERIAL 7.38 Normal 7.35-7.45 [facility] Comment on above: Performed By: #### 4 8737 ####[facility] [address] [address] Jean Gary M.D. [id number] PO2 ARTERIAL 352 mm Hg High 75-85 [facility] Comment on above: Performed By: #### 4 8737 ####[facility] [address] [address] Jean Gary M.D. [id number] POC IONIZED CALCIUM 4.5 mg/dL Normal 4.5-5.3 [facility] Comment on above: Performed By: #### 4 8737 ####[facility] [address] [address] Jean Gary M.D. [id number] Potassium [Moles/Vol] 3.2 mmol/L Low 3.5-5.1 [facility] Comment on above: Performed By: #### 4 8737 ####[facility] [address] [address] Jean Gary M.D. [id number] Sodium [Moles/Vol] 136 mmol/L Normal 135-145 [facility] Comment on above: Performed By: #### 4 8737 ####[facility] [address] [address] Jean Gary M.D. [id number] BASE EXCESS, ARTERIAL ISTAT 0 Normal -2-2 [facility] Comment on above: Performed By: #### 4 8737 ####[facility] [address] [address] Jean Gary M.D. [id number] Glucose [Mass/Vol] 126 mg/dL High 65-99 [facility] Comment on above: Performed By: #### 4 8737 #### LAB [address] [address] Jean Gary M.D. [id number] HCO3 (Bld) [Moles/Vol] 25.3 mmol/L Normal 22.0-26.0 [facility] Comment on above: Performed By: #### 4 8737 ####[facility] [address] [address] Jean Gary M.D. [id number] Hematocrit (Bld) [Volume fraction] 33 % Low 36-46 [facility] Comment on above: Performed By: #### 4 8737 #### LAB [address] [address] Jean Gary M.D. [id number] Hemoglobin (Bld) [Mass/Vol] 11.2 g/dL Low 12.0-16.0 [facility] Comment on above: Performed By: #### 4 8737 #### LAB [address] [address] Jean Gary M.D. [id number] Oxygen saturation in Blood 100.0 % High 92.0-99.0 [facility] Comment on above: Performed By: #### 4 8737 #### LAB [address] [address] Jean Gary M.D. [id number] PCO2 ARTERIAL 42.0 mm Hg Normal 35.0-45.0 [facility] Comment on above: Performed By: #### 4 8737 ####[facility] [address] [address] Jean Gary M.D. [id number] PH ARTERIAL 7.39 Normal 7.35-7.45 [facility] Comment on above: Performed By: #### 4 8737 #### LAB [address] [address] Jean Gary M.D. [id number] PO2 ARTERIAL 271 mm Hg High 75-85 [facility] Comment on above: Performed By: #### 4 8766 ####[facility] [address] [address] Jean Gary M.D. [id number] POC IONIZED CALCIUM 4.7 mg/dL Normal 4.5-5.3 [facility] Comment on above: Performed By: #### 4 8737 #### LAB [address] [address] Jean Gary M.D. [id number] Potassium [Moles/Vol] 3.4 mmol/L Low 3.5-5.1 [facility] Comment on above: Performed By: #### 4 8737 ####[facility] [address] [address] Jean Gary M.D. [id number] Sodium [Moles/Vol] 136 mmol/L Normal 135-145 [facility] Comment on above: Performed By: #### 4 8737 #### LAB [address] [address] Jean Gary M.D. [id number] POC GLUCOSE - [facility] 025 Glucose [Mass/Vol] 130 mg/dL High 65-99 [facility] Comment on above: Performed By: #### 4 6932 #### LAB [address] [address] Jean Gary M.D. [id number] TYPE AND SCREENon 02-23-2025 TYPE AND SCREEN ABORH: Invalid AB SCREEN: Negative EXPIRATION DATE: 02/26/2025 23:59 EST [facility] XR OR C-SPINE 2-3 VIEWSon XR OR C-SPINE 2-3 VIEWS [facility] Comment on above: Order Comment: Injur y/Trauma or Illness?:Illness/OtherHow long have you had these symptoms (acute/chronic)?:UnknownReason for exam?:POSTERIOR FUSIONType of Exam?:Subsequent/Follow-upAdditional signs and symptoms?:UFluoro time in minutes:0.32Fluoro dose in mGy?:2.4 XR OR FLUOROSCOPY TIMEon XR OR FLUOROSCOPY TIME This is an auto finalized result. Please refer to patient chart for further information. further information. further information. [facility] Comment on above: Order Comment: Injur y/Trauma or Illness?:Illness/OtherHow long have you had these symptoms (acute/chronic)?:UnknownReason for exam?:POSTERIOR FUSIONType of Exam?:Subsequent/Follow-upAdditional signs and symptoms?:UFluoro time in minutes:0.32Fluoro dose in mGy?:2.4 Order Comment: Injur y/Trauma or Illness?:Injury/TraumaHow long have you had these symptoms (acute/chronic)?:AcuteReason for exam?:3 LEVEL KYPHOPLASTYType of Exam?:Subsequent/Follow-upMechanism of injury?:FALLFluoro time in minutes:11.32Fluoro dose in mGy?:256.8 XR OR L-SPINE 2-3 VIEWSon XR OR L-SPINE 2-3 VIEWS [facility] Comment on above: Order Comment: Injur y/Trauma or Illness?:Injury/TraumaHow long have you had these symptoms (acute/chronic)?:AcuteReason for exam?:3 LEVEL KYPHOPLASTYType of Exam?:Subsequent/Follow-upMechanism of injury?:FALLFluoro time in minutes:11.32Fluoro dose in mGy?:256.8 ABORHon 02-22-2025 ABO and Rh group Nom (Bld) ABORH: A Positive [facility] ABORH VERIFICATIONon 025 ABO and Rh group Nom (Bld) Invalid [facility] ABO and Rh group Nom (Bld) ABO/Rh Verification [facility] Comment on above: Result Comment: Taylor ent's ABO/Rh is verified. BASIC METABOLIC PANELon Anion gap [Moles/Vol] 17 mmol/L Normal - [facility] Comment on above: Order Comment: [facility] has implemented the eGFR calculation approach that does not have a coefficient for race that conforms to the NKF-ASN Task Force Recommendations. Performed By: #### 4 6124 ####[facility] LAB [address] [place], [place] [address] Jean Gary M.D. [id number] Calcium [Mass/Vol] 9.2 mg/dL Normal 8.4-10.2 [facility] Comment on above: Order Comment: [facility] has implemented the eGFR calculation approach that does not have a coefficient for race that conforms to the NKF-ASN Task Force Recommendations. Performed By: #### 4 6124 #### LAB [address] [address] Jean Gary M.D. [id number] Chloride [Moles/Vol] 98 mmol/L Normal 98-108 [facility] Comment on above: Order Comment: [facility] has implemented the eGFR calculation approach that does not have a coefficient for race that conforms to the NKF-ASN Task Force Recommendations. Performed By: #### 4 6124 #### LAB [address] [address] Jean Gary M.D. [id number] Creatinine [Mass/Vol] 0.58 mg/dL Low 0.60-1.20 [facility] Comment on above: Order Comment: [facility] has implemented the eGFR calculation approach that does not have a coefficient for race that conforms to the NKF-ASN Task Force Recommendations. Performed By: #### 4 6124 #### LAB [address] [address] Jean Gary M.D. [id number] EGFR 94 mL/min/1.73 m2 Normal >=60 [facility] Comment on above: Order Comment: [facility] has implemented the eGFR calculation approach that does not have a coefficient for race that conforms to the NKF-ASN Task Force Recommendations. Result Comment: Cassi mated GFR was calculated using the 2020 CKD-EPI creatinine equation. Performed By: #### 4 6124 #### LAB [address] [address] Jean Gary M.D. [id number] Glucose [Mass/Vol] 110 mg/dL High 65-99 [facility] Comment on above: Order Comment: [facility] has implemented the eGFR calculation approach that does not have a coefficient for race that conforms to the NKF-ASN Task Force Recommendations. Performed By: #### 4 6188 #### LAB [address] [address] Jean Gary M.D. [id number] HCO3 (Bld) [Moles/Vol] 23 mmol/L Normal 21-32 [facility] Comment on above: Order Comment: [facility] has implemented the eGFR calculation approach that does not have a coefficient for race that conforms to the NKF-ASN Task Force Recommendations. Performed By: #### 4 6124 #### LAB [address] [address] Jean Gary M.D. [id number] Potassium [Moles/Vol] 3.6 mmol/L Normal 3.5-5.1 [facility] Comment on above: Order Comment: [facility] has implemented the eGFR calculation approach that does not have a coefficient for race that conforms to the NKF-ASN Task Force Recommendations. Performed By: #### 4 6124 #### LAB [address] [address] Jean Gary M.D. [id number] Sodium [Moles/Vol] 134 mmol/L Low 135-145 [facility] Comment on above: Order Comment: [facility] has implemented the eGFR calculation approach that does not have a coefficient for race that conforms to the NKF-ASN Task Force Recommendations. Performed By: #### 4 6124 #### LAB [address] [address] Jean Gary M.D. [id number] Urea nitrogen [Mass/Vol] 10 mg/dL Normal 8-25 [facility] Comment on above: Order Comment: [facility] has implemented the eGFR calculation approach that does not have a coefficient for race that conforms to the NKF-ASN Task Force Recommendations. Performed By: #### 4 6124 #### LAB [address] [address] Jean Gary M.D. [id number] Urea nitrogen/Creatinine [Mass ratio] 17.2 mg/mg Normal 10.0-20.0 [facility] Comment on above: Order Comment: [facility] has implemented the eGFR calculation approach that does not have a coefficient for race that conforms to the NKF-ASN Task Force Recommendations. Performed By: #### 4 6124 #### LAB [address] [address] Jean Gary M.D. [id number] CBC WITH AUTO DIFFERENTIALon 02-22-2025 AUTO NRBC 0.0 % [facility] Comment on above: Performed By: #### L [id number] #### LAB [address] [address] Jean Gary M.D. [id number] AUTO NRBC ABS COUNT 0.00 K/mcL Normal 0.00-0.00 [facility] Comment on above: Performed By: #### L [id number] ####[facility] [address] [address] Jean Gary M.D. [id number] BASOPHILS ABSOLUTE COUNT 0.03 K/mcL Normal 0.00-0.30 [facility] Comment on above: Performed By: #### L [id number] ####[facility] [address] [address] Jean Gary M.D. [id number] Basophils/100 WBC (Bld) 0.7 % [facility] Comment on above: Performed By: #### L [id number] #### LAB [address] [place] [address] Jean Gary M.D. [id number] Eosinophils (Bld) [#/Vol] 0.03 10*3/uL Normal 0.00-0.50 [facility] Comment on above: Performed By: #### L [id number] #### LAB [address] [address] Jean Gary M.D. [id number] Eosinophils/100 WBC (Bld) 0.7 % [facility] Comment on above: Performed By: #### L [id number] ####[facility] [address] [address] Jean Gary M.D. [id number] Erythrocyte distribution width (RBC) [Ratio] 13.2 % Normal 11.6-14.8 [facility] Comment on above: Performed By: #### L [id number] #### LAB [address] [address] Jean Gary M.D. [id number] Hematocrit (Bld) [Volume fraction] 42.0 % Normal 36.0-46.0 [facility] Comment on above: Performed By: #### L [id number] #### LAB [address] [address] Jean Gary M.D. [id number] Hemoglobin (Bld) [Mass/Vol] 13.7 g/dL Normal 12.0-16.0 [facility] Comment on above: Performed By: #### L [id number] #### LAB [address] [address] Jean Gary M.D. [id number] IG ABSOLUTE 0.02 K/mcL Normal 0.00-0.30 [facility] Comment on above: Performed By: #### L [id number] #### LAB [address] [address] Jean Gary M.D. [id number] IG PERCENT 0.40 % Normal [facility] Comment on above: Result Comment: The IG parameter is the percentage of metamyelocytes, myelocytes and promyelocytes. An immature granulocyte count (IG) of 1% or more suggests the possibility of infection, an IG count of 3% is very likely related to an infection. Performed By: #### L [id number] #### LAB [address] [address] Jean Gary M.D. [id number] Lymphocytes (Bld) [#/Vol] 1.30 10*3/uL Normal 0.90-4.00 [facility] Comment on above: Performed By: #### L [id number] #### LAB [address] [place] [address] Jean Gary M.D. [id number] Lymphocytes/100 WBC (Bld) 28.6 % Normal [facility] Comment on above: Performed By: #### L [id number] #### LAB [address] [address] Jean Gary M.D. [id number] MCH (RBC) [Entitic mass] 30.9 pg Normal 26.0-34.0 [facility] Comment on above: Performed By: #### L [id number] #### LAB [address] [address] Jean Gary M.D. [id number] MCV (RBC) [Entitic vol] 94.8 fL Normal 80.0-100.0 [facility] Comment on above: Performed By: #### L [id number] #### LAB [address] [address] Jean Gary M.D. [id number] MEAN CORPUSCULAR HEMOGLOBIN CONC 32.6 g/dL Normal 31.0-37.0 [facility] Comment on above: Performed By: #### L [id number] #### LAB [address] [address] Jean Gary M.D. [id number] Monocytes (Bld) [#/Vol] 0.57 10*3/uL Normal 0.30-0.90 [facility] Comment on above: Performed By: #### L [id number] #### LAB [address] [address] Jean Gary M.D. [id number] Monocytes/100 WBC (Bld) 12.5 % Normal [facility] Comment on above: Performed By: #### L [id number] #### LAB [address] [address] Jean Gary M.D. [id number] NEUTROPHILS ABSOLUTE COUNT 2.60 K/mcL Normal 1.70-7.00 [facility] Comment on above: Performed By: #### L [id number] #### LAB [address] [place] [address] Jean Gary M.D. [id number] Neutrophils/100 WBC (Bld) 57.1 % Normal [facility] Comment on above: Performed By: #### L [id number] ####[facility] [address] [address] Jean Gary M.D. [id number] Platelet mean volume (Bld) [Entitic vol] 9.9 fL Normal 9.4-12.4 [facility] Comment on above: Performed By: #### L [id number] #### LAB [address] [address] Jean Gary M.D. [id number] Platelets (Bld) [#/Vol] 322 10*3/uL Normal 150-400 [facility] Comment on above: Performed By: #### L [id number] ####[facility] [address] [address] Jean Gary M.D. [id number] RBC (Bld) [#/Vol] 4.43 10*6/uL Normal 4.00-5.20 [facility] Comment on above: Performed By: #### L [id number] ####[facility] LAB [address] [address] Jean Gary M.D. [id number] WBC (Bld) [#/Vol] 4.55 10*3/uL Normal 4.50-11.00 [facility] Comment on above: Performed By: #### L [id number] #### LAB [address] [address] Jean Gary M.D. [id number] H AND Pancho 02-22-2025 H AND P Normal [facility] MAGNESIUM LEVELon 02-22-2025 Magnesium [Mass/Vol] 1.8 mg/dL Normal 1.6-2.4 [facility] Comment on above: Performed By: #### 4 6109 #### LAB [address] [address] Jean Gary M.D. [id number] MR CERVICAL SPINE WITHOUT CO NTRASTon 02-22-2025 MR CERVICAL SPINE WITHOUT CONTRAST Normal [facility] Comment on above: Order Comment: Injur y/Trauma or Illness?:Illness/OtherHow long have you had these symptoms (acute/chronic)?:AcuteReason for exam?:surgical planning for tomorrow 02/23/25, cervical painType of Exam?:InitialAdditional signs and symptoms?:. MR LUMBAR SPINE WITHOUT CONT RASTon 02-22-2025 MR LUMBAR SPINE WITHOUT CONTRAST Normal [facility] Comment on above: Order Comment: Injur y/Trauma or Illness?:Illness/OtherHow long have you had these symptoms (acute/chronic)?:AcuteReason for exam?:surgical planning for tomorrow 02/23/25, low back painType of Exam?:InitialAdditional signs and symptoms?:. XR HIP LEFT 2-3 VIEWS (ROUTI NE)on 02-22-2025 XR HIP LEFT 2-3 VIEWS (ROUTINE) Normal [facility] Comment on above: Order Comment: Injur y/Trauma or Illness?:Illness/OtherHow long have you had these symptoms (acute/chronic)?:AcuteReason for exam?:leg rotation and hip pain, hx of sx x 3 years agoHistory of cancer?:uSurgeries, chemotherapy, or radiation?:uType of Exam?:InitialAdditional signs and symptoms?:. BASIC METABOLIC PANELon 04-2 Anion gap [Moles/Vol] 14 mmol/L Normal 10-20 [facility] Comment on above: Order Comment: [facility] has implemented the eGFR calculation approach that does not have a coefficient for race that conforms to the NKF-ASN Task Force Recommendations. Performed By: #### 4 6124 #### LAB [address] [place], [place] [address] Jean Gary M.D. [id number] Calcium [Mass/Vol] 10.7 mg/dL High 8.4-10.2 [facility] Comment on above: Order Comment: [facility] has implemented the eGFR calculation approach that does not have a coefficient for race that conforms to the NKF-ASN Task Force Recommendations. Performed By: #### 4 6124 ####[facility] [address] [place], [place] [address] Jean Gary M.D. [id number] Chloride [Moles/Vol] 93 mmol/L Low 98-108 [facility] Comment on above: Order Comment: [facility] has implemented the eGFR calculation approach that does not have a coefficient for race that conforms to the NKF-ASN Task Force Recommendations. Performed By: #### 4 6124 ####[facility] LAB [address] [id number] Jean Gary M.D. [id number] Creatinine [Mass/Vol] 0.59 mg/dL Low 0.60-1.10 [facility] Comment on above: Order Comment: [facility] has implemented the eGFR calculation approach that does not have a coefficient for race that conforms to the NKF-ASN Task Force Recommendations. Performed By: #### 4 6124 #### LAB [address] [address] Jean Gary M.D. [id number] EGFR 94 mL/min/1.73 m2 Normal >=60 [facility] Comment on above: Order Comment: [facility] has implemented the eGFR calculation approach that does not have a coefficient for race that conforms to the NKF-ASN Task Force Recommendations. Result Comment: Cassi mated GFR was calculated using the 2020 CKD-EPI creatinine equation. Performed By: #### 4 6124 #### LAB [address] [address] Jean Gary M.D. [id number] Glucose [Mass/Vol] 122 mg/dL High 65-99 [facility] Comment on above: Order Comment: [facility] has implemented the eGFR calculation approach that does not have a coefficient for race that conforms to the NKF-ASN Task Force Recommendations. Performed By: #### 4 6124 ####[facility] [address] [address] Jean Gary M.D. [id number] HCO3 (Bld) [Moles/Vol] 26 mmol/L Normal 21-32 [facility] Comment on above: Order Comment: [facility] has implemented the eGFR calculation approach that does not have a coefficient for race that conforms to the NKF-ASN Task Force Recommendations. Performed By: #### 4 6124 ####[facility] [address] [id number] Jean Gary M.D. [id number] Potassium [Moles/Vol] 3.8 mmol/L Normal 3.5-5.1 [facility] Comment on above: Order Comment: [facility] has implemented the eGFR calculation approach that does not have a coefficient for race that conforms to the NKF-ASN Task Force Recommendations. Performed By: #### 4 6124 #### LAB [address] [address] Jean Gary M.D. [id number] Sodium [Moles/Vol] 129 mmol/L Low 135-145 [facility] Comment on above: Order Comment: [facility] has implemented the eGFR calculation approach that does not have a coefficient for race that conforms to the NKF-ASN Task Force Recommendations. Performed By: #### [id number] #### LAB [address] [address] Jean Gary M.D. [id number] Urea nitrogen [Mass/Vol] 10 mg/dL Normal 8-25 [facility] Comment on above: Order Comment: [facility] has implemented the eGFR calculation approach that does not have a coefficient for race that conforms to the NKF-ASN Task Force Recommendations. Performed By: #### 4 [id number] #### LAB [address] [address] Jean Gary M.D. [id number] Urea nitrogen/Creatinine [Mass ratio] 16.9 mg/mg Normal 10.0-20.0 [facility] Comment on above: Order Comment: [facility] has implemented the eGFR calculation approach that does not have a coefficient for race that conforms to the NKF-ASN Task Force Recommendations. Performed By: #### 4 [id number] #### LAB [address] [address] Jean Gary M.D. [id number] Basic metabolic 2000 panelon 12-13-2024 Anion gap [Moles/Vol] 14 mmol/L 10 - 20 mmol/L [facility] Calcium [Mass/Vol] 10.7 mg/dL High 8.4 - 10. 2 mg/dL [facility] Chloride [Moles/Vol] 93 mmol/L Low 98 - 10 8 mmol/L [facility] Creatinine [Mass/Vol] 0.59 mg/dL Low 0.60 - 1.20 mg/dL [facility] GFR/1.73 sq M.predicted CKD-EPI (S/P/Bld) [Vol rate/Area] 94 - PINF [facility] Comment on above: Estimated GFR was ca lculated using the 2020 CKD-EPI creatinine equation. Glucose [Mass/Vol] 122 mg/dL High 65 - 99 mg/dL [facility] HCO3 [Moles/Vol] 26 mmol/L 21 - 32 mmol/L [facility] Potassium [Moles/Vol] 3.8 mmol/L 3.5 - 5.1 mmol/L [facility] Sodium [Moles/Vol] 129 mmol/L Low 135 - 145 mmol/L [facility] Urea nitrogen [Mass/Vol] 10 mg/dL 8 - 25 mg/dL [facility] Urea nitrogen/Creatinine [Mass ratio] 16.9 mg/mg 10.0 - 20.0 [facility] has implemented the eGFR calculation approach that does not have a coefficient for race that conforms to the NKF-ASN Task Force Recommendations. [facility] CBCon 12-13-2024 AUTO NRBC 0.0 % Normal [facility] Comment on above: Performed By: #### [id number] #### LAB [address] [address] Jean Gary M.D. [id number] AUTO NRBC ABS COUNT 0.00 K/mcL Normal 0.00-0.00 [facility] Comment on above: Performed By: #### [id number] #### LAB [address] [address] Jean Gary M.D. [id number] Erythrocyte distribution width (RBC) [Ratio] 12.5 % Normal 11.6-14.8 [facility] Comment on above: Performed By: #### 4 [id number] #### LAB [address] [address] Jean Gary M.D. [id number] Hematocrit (Bld) [Volume fraction] 34.4 % Low 36.0-46.0 [facility] Comment on above: Performed By: #### 4 [id number] #### LAB [address] [address] Jean Gary M.D. [id number] Hemoglobin (Bld) [Mass/Vol] 12.0 g/dL Normal 12.0-16.0 [facility] Comment on above: Performed By: #### 4 [id number] #### LAB [address] [address] Jean Gary M.D. [id number] MCH (RBC) [Entitic mass] 32.4 pg Normal 26.0-34.0 [facility] Comment on above: Performed By: #### 4 [id number] #### LAB [address] [address] Jean Gary M.D. [id number] MCV (RBC) [Entitic vol] 93.0 fL Normal 80.0-100.0 [facility] Comment on above: Performed By: #### 4 [id number] #### LAB [address] [address] Jean Gary M.D. [id number] MEAN CORPUSCULAR HEMOGLOBIN CONC 34.9 g/dL Normal 31.0-37.0 [facility] Comment on above: Performed By: #### 4 [id number] #### LAB [address] [address] Jean Gary M.D. [id number] Platelet mean volume (Bld) [Entitic vol] 9.8 fL Normal 9.4-12.4 [facility] Comment on above: Performed By: #### 4 [id number] #### LAB [address] [address] Jean Gary M.D. [id number] Platelets (Bld) [#/Vol] 324 10*3/uL Normal 150-400 [facility] Comment on above: Performed By: #### 4 [id number] #### LAB [address] [address] Jean Gary M.D. [id number] RBC (Bld) [#/Vol] 3.70 10*6/uL Low 4.00-5.20 [facility] Comment on above: Performed By: #### 4 [id number] #### LAB [address] [place], [place] [address] Jean Gary M.D. [id number] WBC (Bld) [#/Vol] 4.28 10*3/uL Low 4.50-11.00 [facility] Comment on above: Performed By: #### 4 [id number] #### LAB [address] [place], [place] [address] Jean Gary M.D. [id number] CBC panel Auto (Bld)on 12-13 Erythrocyte distribution width (RBC) [Entitic vol] 12.5 % 11.6 - 14.8 % [facility] Hematocrit (Bld) [Volume fraction] 34.4 % Low 36.0 - 46.0 % [facility] Hemoglobin (Bld) [Mass/Vol] 12 g/dL 12.0 - 16.0 g/dL [facility] Interpretation and review of laboratory results Abnormal [facility] MCH (RBC) [Entitic mass] 32.4 pg 26.0 - 34.0 pg [facility] MCHC (RBC) [Mass/Vol] 34.9 g/dL 31.0 - 37.0 g/dL [facility] MCV (RBC) [Entitic vol] 93 fL 80.0 - 100.0 fL [facility] Nucleated RBC (Bld) [#/Vol] 0 10*3/uL [facility] Nucleated RBC/100 WBC (Bld) [Ratio] 0 % [facility] Platelet mean volume (Bld) [Entitic vol] 9.8 fL 9.4 - 12.4 fL [facility] Platelets (Bld) [#/Vol] 324 10*3/uL [facility] RBC (Bld) [#/Vol] 3.7 10*6/uL Low [facility] alth WBC (Bld) [#/Vol] 4.28 10*3/uL Low [facility] ealth [facility] MAGNESIUM LEVELon 12-13-2024 Magnesium [Mass/Vol] 1.5 mg/dL Low 1.6-2.4 [facility] Comment on above: Performed By: #### 4 [id number] #### LAB [address] [id number] Jean Gary M.D. [id number] Magnesium Levelon 12-13-2024 Magnesium [Mass/Vol] 1.5 mg/dL Low 1.6 - 2 .4 mg/dL [facility] No Panel Informationon 12-13 Interpretation and review of laboratory results Abnormal [facility] BASIC METABOLIC PANELon 11-16 Anion gap [Moles/Vol] 15 mmol/L Normal 10-20 [facility] Comment on above: Order Comment: [facility] has implemented the eGFR calculation approach that does not have a coefficient for race that conforms to the NKF-ASN Task Force Recommendations. Performed By: #### 4 [id number] #### LAB [address] [place], [place] [address] Jean Gary M.D. [id number] Calcium [Mass/Vol] 10.4 mg/dL High 8.4-10.2 [facility] Comment on above: Order Comment: [facility] has implemented the eGFR calculation approach that does not have a coefficient for race that conforms to the NKF-ASN Task Force Recommendations. Performed By: #### 4 [id number] #### LAB [address] [place], [place] [address] Jean Gary M.D. [id number] Chloride [Moles/Vol] 95 mmol/L Low 98-108 [facility] Comment on above: Order Comment: [facility] has implemented the eGFR calculation approach that does not have a coefficient for race that conforms to the NKF-ASN Task Force Recommendations. Performed By: #### 4 [id number] #### LAB [address] [id number] Jean Gary M.D. [id number] Creatinine [Mass/Vol] 0.60 mg/dL Normal 0.60-1.10 [facility] Comment on above: Order Comment: [facility] has implemented the eGFR calculation approach that does not have a coefficient for race that conforms to the NKF-ASN Task Force Recommendations. Performed By: #### 4 6124 #### LAB [address] [address] Jean Gary M.D. [id number] EGFR 93 mL/min/1.73 m2 Normal >=60 [facility] Comment on above: Order Comment: [facility] has implemented the eGFR calculation approach that does not have a coefficient for race that conforms to the NKF-ASN Task Force Recommendations. Result Comment: Cassi mated GFR was calculated using the 2020 CKD-EPI creatinine equation. Performed By: #### 4 [id number] #### LAB [address] [address] Jean Gary M.D. [id number] Glucose [Mass/Vol] 135 mg/dL High 65-99 [facility] Comment on above: Order Comment: [facility] has implemented the eGFR calculation approach that does not have a coefficient for race that conforms to the NKF-ASN Task Force Recommendations. Performed By: #### 4 [id number] #### LAB [address] [address] Jean Gary M.D. [id number] HCO3 (Bld) [Moles/Vol] 25 mmol/L Normal 21-32 [facility] Comment on above: Order Comment: [facility] has implemented the eGFR calculation approach that does not have a coefficient for race that conforms to the NKF-ASN Task Force Recommendations. Performed By: #### 4 [id number] #### LAB [address] [address] Jean Gary M.D. [id number] Potassium [Moles/Vol] 3.9 mmol/L Normal 3.5-5.1 [facility] Comment on above: Order Comment: [facility] has implemented the eGFR calculation approach that does not have a coefficient for race that conforms to the NKF-ASN Task Force Recommendations. Performed By: #### 4 6124 #### LAB [address] [address] Jean Gary M.D. [id number] Sodium [Moles/Vol] 131 mmol/L Low 135-145 [facility] Comment on above: Order Comment: [facility] has implemented the eGFR calculation approach that does not have a coefficient for race that conforms to the NKF-ASN Task Force Recommendations. Performed By: #### 4 [id number] #### LAB [address] [place], [place] [address] Jean Gary M.D. [id number] Urea nitrogen [Mass/Vol] 11 mg/dL Normal 8-25 [facility] Comment on above: Order Comment: [facility] has implemented the eGFR calculation approach that does not have a coefficient for race that conforms to the NKF-ASN Task Force Recommendations. Performed By: #### 4 6124 #### LAB [address] [place], [place] [address] Jean Gary M.D. [id number] Urea nitrogen/Creatinine [Mass ratio] 18.3 mg/mg Normal 10.0-20.0 [facility] Comment on above: Order Comment: [facility] has implemented the eGFR calculation approach that does not have a coefficient for race that conforms to the NKF-ASN Task Force Recommendations. Performed By: #### 4 [id number] #### LAB [address] [place], [place] [address] Jean Gary M.D. [id number] Basic metabolic 2000 panelon 12-12-2024 Anion gap [Moles/Vol] 15 mmol/L 10 - 20 mmol/L [facility] Calcium [Mass/Vol] 10.4 mg/dL High 8.4 - 10. 2 mg/dL [facility] Chloride [Moles/Vol] 95 mmol/L Low 98 - 10 8 mmol/L [facility] Creatinine [Mass/Vol] 0.6 mg/dL 0.60 - 1.20 mg/dL [facility] GFR/1.73 sq M.predicted CKD-EPI (S/P/Bld) [Vol rate/Area] 93 - PINF [facility] Comment on above: Estimated GFR was ca lculated using the 2020 CKD-EPI creatinine equation. Glucose [Mass/Vol] 135 mg/dL High 65 - 99 mg/dL [facility] HCO3 [Moles/Vol] 25 mmol/L 21 - 32 mmol/L [facility] Interpretation and review of laboratory results Abnormal [facility] Potassium [Moles/Vol] 3.9 mmol/L 3.5 - 5.1 mmol/L [facility] Sodium [Moles/Vol] 131 mmol/L Low 135 - 145 mmol/L [facility] Urea nitrogen [Mass/Vol] 11 mg/dL 8 - 25 mg/dL [facility] Urea nitrogen/Creatinine [Mass ratio] 18.3 mg/mg 10.0 - 20.0 [facility] has implemented the eGFR calculation approach that does not have a coefficient for race that conforms to the NKF-ASN Task Force Recommendations. [facility] BASIC METABOLIC PANELon 04-2 Anion gap [Moles/Vol] 16 mmol/L Normal 10-20 [facility] Comment on above: Order Comment: [facility] has implemented the eGFR calculation approach that does not have a coefficient for race that conforms to the NKF-ASN Task Force Recommendations. Performed By: #### 4 [id number] #### LAB [address] [address] Jean Gary M.D. [id number] Calcium [Mass/Vol] 10.0 mg/dL Normal 8.4-10.2 [facility] Comment on above: Order Comment: [facility] has implemented the eGFR calculation approach that does not have a coefficient for race that conforms to the NKF-ASN Task Force Recommendations. Performed By: #### 4 [id number] #### LAB [address] [address] Jean Gary M.D. [id number] Chloride [Moles/Vol] 92 mmol/L Low 98-108 [facility] Comment on above: Order Comment: [facility] has implemented the eGFR calculation approach that does not have a coefficient for race that conforms to the NKF-ASN Task Force Recommendations. Performed By: #### 4 6124 #### LAB [address] [place], [place] [address] Jean Gary M.D. [id number] Creatinine [Mass/Vol] 0.58 mg/dL Low 0.60-1.10 [facility] Comment on above: Order Comment: [facility] has implemented the eGFR calculation approach that does not have a coefficient for race that conforms to the NKF-ASN Task Force Recommendations. Performed By: #### 4 6135 #### LAB [address] [place], [place] [address] Jean Gary M.D. [id number] EGFR 94 mL/min/1.73 m2 Normal >=60 [facility] Comment on above: Order Comment: [facility] has implemented the eGFR calculation approach that does not have a coefficient for race that conforms to the NKF-ASN Task Force Recommendations. Result Comment: Cassi mated GFR was calculated using the 2020 CKD-EPI creatinine equation. Performed By: #### 4 6151 #### LAB [address] [address] Jean Gary M.D. [id number] Glucose [Mass/Vol] 100 mg/dL High 65-99 [facility] Comment on above: Order Comment: [facility] has implemented the eGFR calculation approach that does not have a coefficient for race that conforms to the NKF-ASN Task Force Recommendations. Performed By: #### 4 6188 #### LAB [address] [address] Jean Gary M.D. [id number] HCO3 (Bld) [Moles/Vol] 25 mmol/L Normal 21-32 [facility] Comment on above: Order Comment: [facility] has implemented the eGFR calculation approach that does not have a coefficient for race that conforms to the NKF-ASN Task Force Recommendations. Performed By: #### 4 6184 #### LAB [address] [address] Jean Gary M.D. [id number] Potassium [Moles/Vol] 4.3 mmol/L Normal 3.5-5.1 [facility] Comment on above: Order Comment: [facility] has implemented the eGFR calculation approach that does not have a coefficient for race that conforms to the NKF-ASN Task Force Recommendations. Performed By: #### 4 3565 #### LAB [address] [address] Jean Gary M.D. [id number] Sodium [Moles/Vol] 129 mmol/L Low 135-145 [facility] Comment on above: Order Comment: [facility] has implemented the eGFR calculation approach that does not have a coefficient for race that conforms to the NKF-ASN Task Force Recommendations. Performed By: #### 4 [id number] #### LAB [address] [address] Jean Gary M.D. [id number] Urea nitrogen [Mass/Vol] 14 mg/dL Normal 8-25 [facility] Comment on above: Order Comment: [facility] has implemented the eGFR calculation approach that does not have a coefficient for race that conforms to the NKF-ASN Task Force Recommendations. Performed By: #### 4 [id number] #### LAB [address] [address] Jean Gary M.D. [id number] Urea nitrogen/Creatinine [Mass ratio] 24.1 mg/mg High 10.0-20.0 [facility] Comment on above: Order Comment: [facility] has implemented the eGFR calculation approach that does not have a coefficient for race that conforms to the NKF-ASN Task Force Recommendations. Performed By: #### 4 6124 #### LAB [address] [address] Jean Gary M.D. [id number] Anion gap [Moles/Vol] 13 mmol/L Normal 10-20 [facility] Comment on above: Order Comment: [facility] has implemented the eGFR calculation approach that does not have a coefficient for race that conforms to the NKF-ASN Task Force Recommendations. Performed By: #### 4 6124 #### LAB [address] [address] Jean Gary M.D. [id number] Calcium [Mass/Vol] 9.6 mg/dL Normal 8.4-10.2 [facility] Comment on above: Order Comment: [facility] has implemented the eGFR calculation approach that does not have a coefficient for race that conforms to the NKF-ASN Task Force Recommendations. Performed By: #### 4 6124 #### LAB [address] [place], [place] [address] Jean Gary M.D. [id number] Chloride [Moles/Vol] 91 mmol/L Low 98-108 [facility] Comment on above: Order Comment: [facility] has implemented the eGFR calculation approach that does not have a coefficient for race that conforms to the NKF-ASN Task Force Recommendations. Performed By: #### 4 6124 #### LAB [address] [address] Jean Gary M.D. [id number] Creatinine [Mass/Vol] 0.61 mg/dL Normal 0.60-1.10 [facility] Comment on above: Order Comment: [facility] has implemented the eGFR calculation approach that does not have a coefficient for race that conforms to the NKF-ASN Task Force Recommendations. Performed By: #### 4 6124 #### LAB [address] [address] Jean Gary M.D. [id number] EGFR 93 mL/min/1.73 m2 Normal >=60 [facility] Comment on above: Order Comment: [facility] has implemented the eGFR calculation approach that does not have a coefficient for race that conforms to the NKF-ASN Task Force Recommendations. Result Comment: Cassi mated GFR was calculated using the 2020 CKD-EPI creatinine equation. Performed By: #### 4 [id number] #### LAB [address] [address] Jean Gary M.D. [id number] Glucose [Mass/Vol] 129 mg/dL High 65-99 [facility] Comment on above: Order Comment: [facility] has implemented the eGFR calculation approach that does not have a coefficient for race that conforms to the NKF-ASN Task Force Recommendations. Performed By: #### 4 [id number] #### LAB [address] [address] Jean Gary M.D. [id number] HCO3 (Bld) [Moles/Vol] 27 mmol/L Normal 21-32 [facility] Comment on above: Order Comment: [facility] has implemented the eGFR calculation approach that does not have a coefficient for race that conforms to the NKF-ASN Task Force Recommendations. Performed By: #### 4 6124 #### LAB [address] [id number] Jean Gary M.D. [id number] Potassium [Moles/Vol] 4.1 mmol/L Normal 3.5-5.1 [facility] Comment on above: Order Comment: [facility] has implemented the eGFR calculation approach that does not have a coefficient for race that conforms to the NKF-ASN Task Force Recommendations. Performed By: #### 4 [id number] #### LAB [address] [id number] Jean Gary M.D. [id number] Sodium [Moles/Vol] 127 mmol/L Low 135-145 [facility] Comment on above: Order Comment: [facility] has implemented the eGFR calculation approach that does not have a coefficient for race that conforms to the NKF-ASN Task Force Recommendations. Performed By: #### 4 [id number] #### LAB [address] [id number] Jean Gary M.D. [id number] Urea nitrogen [Mass/Vol] 14 mg/dL Normal 8-25 [facility] Comment on above: Order Comment: [facility] has implemented the eGFR calculation approach that does not have a coefficient for race that conforms to the NKF-ASN Task Force Recommendations. Performed By: #### 4 6124 ####[facility] LAB [address] [address] Jean Gary M.D. [id number] Urea nitrogen/Creatinine [Mass ratio] 23.0 mg/mg High 10.0-20.0 [facility] Comment on above: Order Comment: [facility] has implemented the eGFR calculation approach that does not have a coefficient for race that conforms to the NKF-ASN Task Force Recommendations. Performed By: #### 4 6124 ####[facility] [place] [address] Jean Gary M.D. [id number] Basic metabolic 1999 panelOr dered By: Ender Vieyra on 12-11-2024 Anion gap [Moles/Vol] 16 mmol/L 10 - 20 mmol/L [facility] Calcium [Mass/Vol] 10 mg/dL 8.4 - 10. 2 mg/dL [facility] Chloride [Moles/Vol] 92 mmol/L Low 98 - 10 8 mmol/L [facility] Creatinine [Mass/Vol] 0.58 mg/dL Low 0.60 - 1.20 mg/dL [facility] GFR/1.73 sq M.predicted CKD-EPI (S/P/Bld) [Vol rate/Area] 94 - PINF [facility] Comment on above: Estimated GFR was ca lculated using the 2020 CKD-EPI creatinine equation. Glucose [Mass/Vol] 100 mg/dL High 65 - 99 mg/dL [facility] HCO3 [Moles/Vol] 25 mmol/L 21 - 32 mmol/L [facility] Interpretation and review of laboratory results Abnormal [facility] Potassium [Moles/Vol] 4.3 mmol/L 3.5 - 5.1 mmol/L [facility] Sodium [Moles/Vol] 129 mmol/L Low 135 - 145 mmol/L [facility] Urea nitrogen [Mass/Vol] 14 mg/dL 8 - 25 mg/dL [facility] Urea nitrogen/Creatinine [Mass ratio] 24.1 mg/mg High 10.0 - 20.0 [facility] has implemented the eGFR calculation approach that does not have a coefficient for race that conforms to the NKF-ASN Task Force Recommendations. [facility] Basic metabolic 1999 panelOr dered By: Kamini Brody on 12-11-2024 Anion gap [Moles/Vol] 13 mmol/L 10 - 20 mmol/L [facility] Calcium [Mass/Vol] 9.6 mg/dL 8.4 - 10. 2 mg/dL [facility] Chloride [Moles/Vol] 91 mmol/L Low 98 - 10 8 mmol/L [facility] Creatinine [Mass/Vol] 0.61 mg/dL 0.60 - 1.20 mg/dL [facility] GFR/1.73 sq M.predicted CKD-EPI (S/P/Bld) [Vol rate/Area] 93 - PINF [facility] Comment on above: Estimated GFR was ca lculated using the 2020 CKD-EPI creatinine equation. Glucose [Mass/Vol] 129 mg/dL High 65 - 99 mg/dL [facility] HCO3 [Moles/Vol] 27 mmol/L 21 - 32 mmol/L [facility] Interpretation and review of laboratory results Abnormal [facility] Potassium [Moles/Vol] 4.1 mmol/L 3.5 - 5.1 mmol/L [facility] Sodium [Moles/Vol] 127 mmol/L Low 135 - 145 mmol/L [facility] Urea nitrogen [Mass/Vol] 14 mg/dL 8 - 25 mg/dL [facility] Urea nitrogen/Creatinine [Mass ratio] 23 mg/mg High 10.0 - 20.0 [facility] has implemented the eGFR calculation approach that does not have a coefficient for race that conforms to the NKF-ASN Task Force Recommendations. 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 No hardware complications, fracture, or dislocation is identified. LUISITO/frank Workstation ID: [id number] [employer] [facility] EXAMINATION: XR HIP LEFT 1 VIEW 12/11/2024 COMPARISON: Pelvis and bilateral hip radiographs dated 12/03/2024. CT pelvis without IV contrast dated 12/03/2024. HISTORY: ORDERING SYSTEM PROVIDED HISTORY: left hip pain. ORDERING SYSTEM PROVIDED DIAGNOSIS CODES: M16.12 Primary osteoarthritis of left hip J44.9 Chronic obstructive pulmonary disease, unspecified COPD type (HCC) M25.551 Right hip pain S32.020D Closed compression fracture of L2 lumbar vertebra with routine healing, subsequent encounter TECHNIQUE: Frontal and frogleg lateral views of the left hip were obtained. FINDINGS: Postoperative changes from a left total hip arthroplasty again noted. Hardware is intact with no lucencies seen around the hardware. No fracture or dislocation is identified. No suspicious osseous lesion. Partially visualized are degenerative changes in the lower lumbar spine. Atherosclerotic changes again noted. Isiah Marcus MD - 12/11/2024 EXAMINATION: XR HIP LEFT 1 VIEW 12/11/2024 COMPARISON: Pelvis and bilateral hip radiographs dated 12/03/2024. CT pelvis without IV contrast dated 12/03/2024. HISTORY: ORDERING SYSTEM PROVIDED HISTORY: left hip pain. ORDERING SYSTEM PROVIDED DIAGNOSIS CODES: M16.12 Primary osteoarthritis of left hip J44.9 Chronic obstructive pulmonary disease, unspecified COPD type ([facility]) M25.551 Right hip pain S32.020D Closed compression fracture of L2 lumbar vertebra with routine healing, subsequent encounter TECHNIQUE: Frontal and frogleg lateral views of the left hip were obtained. FINDINGS: Postoperative changes from a left total hip arthroplasty again noted. Hardware is intact with no lucencies seen around the hardware. No fracture or dislocation is identified. No suspicious osseous lesion. Partially visualized are degenerative changes in the lower lumbar spine. Atherosclerotic changes again noted. IMPRESSION: Postoperative changes from a left total hip arthroplasty again noted. No hardware complications, fracture, or dislocation is identified. DSS/frank Workstation ID: [id number] [facility] Radiology Study observation (narrative) [facility] XR Hip - left Single viewOrd ered By: Isiah Vasques on 12-11-2024 [facility] Work Phone: BASIC METABOLIC PANELon 2 Anion gap [Moles/Vol] 14 mmol/L Normal 10-20 [facility] Comment on above: Order Comment: [facility] has implemented the eGFR calculation approach that does not have a coefficient for race that conforms to the NKF-ASN Task Force Recommendations. Performed By: #### [id number] ####[facility] [address] [place], [place] [address] Jean Gary M.D. [id number] Calcium [Mass/Vol] 9.7 mg/dL Normal 8.4-10.2 [facility] Comment on above: Order Comment: [facility] has implemented the eGFR calculation approach that does not have a coefficient for race that conforms to the NKF-ASN Task Force Recommendations. Performed By: #### 4 [id number] #### LAB [address] [place], [place] [address] Jean Gary M.D. [id number] Chloride [Moles/Vol] 92 mmol/L Low 98-108 [facility] Comment on above: Order Comment: [facility] has implemented the eGFR calculation approach that does not have a coefficient for race that conforms to the NKF-ASN Task Force Recommendations. Performed By: #### 4 [id number] #### LAB [address] [place] [address] Jean Gary M.D. [id number] Creatinine [Mass/Vol] 0.54 mg/dL Low 0.60-1.10 [facility] Comment on above: Order Comment: [facility] has implemented the eGFR calculation approach that does not have a coefficient for race that conforms to the NKF-ASN Task Force Recommendations. Performed By: #### 4 [id number] #### LAB [address] [place] [address] Jean Gary M.D. [id number] EGFR 96 mL/min/1.73 m2 Normal >=60 [facility] Comment on above: Order Comment: [facility] has implemented the eGFR calculation approach that does not have a coefficient for race that conforms to the NKF-ASN Task Force Recommendations. Result Comment: Cassi mated GFR was calculated using the 2020 CKD-EPI creatinine equation. Performed By: #### 4 [id number] ####[facility] [address] [place] [address] Jean Gary M.D. [id number] Glucose [Mass/Vol] 111 mg/dL High 65-99 [facility] Comment on above: Order Comment: [facility] has implemented the eGFR calculation approach that does not have a coefficient for race that conforms to the NKF-ASN Task Force Recommendations. Performed By: #### 4 [id number] #### LAB [address] [place] [id number] Jean Gary M.D. [id number] HCO3 (Bld) [Moles/Vol] 25 mmol/L Normal 21-32 [facility] Comment on above: Order Comment: [facility] has implemented the eGFR calculation approach that does not have a coefficient for race that conforms to the NKF-ASN Task Force Recommendations. Performed By: #### 4 [id number] #### LAB [address] [place] [address] Jean Gary M.D. [id number] Potassium [Moles/Vol] 4.3 mmol/L Normal 3.5-5.1 [facility] Comment on above: Order Comment: [facility] has implemented the eGFR calculation approach that does not have a coefficient for race that conforms to the NKF-ASN Task Force Recommendations. Performed By: #### 4 [id number] #### LAB [address] [place] [address] Jean Gary M.D. [id number] Sodium [Moles/Vol] 127 mmol/L Low 135-145 [facility] Comment on above: Order Comment: [facility] has implemented the eGFR calculation approach that does not have a coefficient for race that conforms to the NKF-ASN Task Force Recommendations. Performed By: #### 4 [id number] #### LAB [address] [place] [address] Jean Gary M.D. [id number] Urea nitrogen [Mass/Vol] 13 mg/dL Normal 8-25 [facility] Comment on above: Order Comment: [facility] has implemented the eGFR calculation approach that does not have a coefficient for race that conforms to the NKF-ASN Task Force Recommendations. Performed By: #### 4 [id number] #### LAB [address] [place] [address] Jean Gary M.D. [id number] Urea nitrogen/Creatinine [Mass ratio] 24.1 mg/mg High 10.0-20.0 [facility] Comment on above: Order Comment: [facility] has implemented the eGFR calculation approach that does not have a coefficient for race that conforms to the NKF-ASN Task Force Recommendations. Performed By: #### 4 [id number] ####[facility] [address] [place], [place] [address] Jean Gary M.D. [id number] Basic metabolic 2000 panelOr dered By: Priyanka Moreau on 12-10-2024 Anion gap [Moles/Vol] 14 mmol/L 10 - 20 mmol/L [facility] Calcium [Mass/Vol] 9.7 mg/dL 8.4 - 10. 2 mg/dL [facility] Chloride [Moles/Vol] 92 mmol/L Low 98 - 10 8 mmol/L [facility] Creatinine [Mass/Vol] 0.54 mg/dL Low 0.60 - 1.20 mg/dL [facility] GFR/1.73 sq M.predicted CKD-EPI (S/P/Bld) [Vol rate/Area] 96 - PINF [facility] Comment on above: Estimated GFR was ca lculated using the 2020 CKD-EPI creatinine equation. Glucose [Mass/Vol] 111 mg/dL High 65 - 99 mg/dL [facility] HCO3 [Moles/Vol] 25 mmol/L 21 - 32 mmol/L [facility] Interpretation and review of laboratory results Abnormal [facility] Potassium [Moles/Vol] 4.3 mmol/L 3.5 - 5.1 mmol/L [facility] Sodium [Moles/Vol] 127 mmol/L Low 135 - 145 mmol/L [facility] Urea nitrogen [Mass/Vol] 13 mg/dL 8 - 25 mg/dL [facility] Urea nitrogen/Creatinine [Mass ratio] 24.1 mg/mg High 10.0 - 20.0 [facility] has implemented the eGFR calculation approach that does not have a coefficient for race that conforms to the NKF-ASN Task Force Recommendations. [facility] MAGNESIUM LEVELon 12-10-2024 Magnesium [Mass/Vol] 1.6 mg/dL Normal 1.6-2.4 [facility] Comment on above: Performed By: #### 4 [id number] #### LAB [address] [place], [place] [address] Jean Gary M.D. [id number] Magnesium Levelon 12-10-2024 Magnesium [Mass/Vol] 1.6 mg/dL 1.6 - 2 .4 mg/dL [facility] Magnesium [Mass/Vol]on 12-10 Interpretation and review of laboratory results Normal [facility] No Panel Informationon 12-10 [facility] MAGNESIUM LEVELon 12-09-2024 Magnesium [Mass/Vol] 1.4 mg/dL Low 1.6-2.4 [facility] Comment on above: Performed By: #### 4 [id number] ####[facility] [address] [place], [place] [address] Jean Gary M.D. [id number] Magnesium Levelon 12-09-2024 Magnesium [Mass/Vol] 1.4 mg/dL Low 1.6 - 2 .4 mg/dL [facility] Magnesium [Mass/Vol]on 12-09 Interpretation and review of laboratory results Abnormal [facility] XR ABDOMEN /KUB/FLAT PLATE/1 VIEWon 12-09-2024 XR ABDOMEN /KUB/FLAT PLATE/1 VIEW Normal [facility] Comment on above: Order Comment: Injur y/Trauma or Illness?:Illness/OtherHow long have you had these symptoms (acute/chronic)?:AcuteReason for exam?:constipation, bloating, pain, pressureHistory of cancer?:uSurgeries, chemotherapy, or radiation?:uType of Exam?:InitialAdditional signs and symptoms?:. XR Chest View and Abdomen [place] 12-09-2024 Mild constipation. No acute process. MA/nielsw Workstation ID: [id number] [facility] EXAMINATION: XR ABDOMEN /KUB/FLAT PLATE/1 VIEW 12/09/2024 11:24 am HISTORY: ORDERING SYSTEM PROVIDED HISTORY: constipation, TECHNOLOGIST PROVIDED HISTORY: Illness/Other Reason for exam: constipation, bloating, pain, pressure Cancer History: u Surgery, RadiationHistory: u Encounter Type: Initial Additional signs and symptoms: . ORDERING SYSTEM PROVIDED DIAGNOSIS CODES: R53.1 Generalized weakness M16.12 Primary osteoarthritis of left hip M17.0 Primary osteoarthritis of both knees J44.9 Chronic obstructive pulmonary disease, unspecified COPD type ([facility]) M25.551 Right hip pain F03.90 Dementia, unspecified dementia severity, unspecified dementia type, unspecified whether behavioral, psychotic, or mood disturbance or anxiety ([facility]) S32.020D Closed compression fracture of L2 lumbar vertebra with routine healing, subsequent encounter COMPARISON: None. FINDINGS: There is mild constipation, but no obstruction or free air. There are degenerative changes of the spine. There are vascular calcifications present. GE [facility] Shaina Dailey MD - 12/09/2024 EXAMINATION: XR ABDOMEN /KUB/FLAT PLATE/1 VIEW 12/09/2024 11:24 am HISTORY: ORDERING SYSTEM PROVIDED HISTORY: constipation, TECHNOLOGIST PROVIDED HISTORY: Illness/Other Reason for exam: constipation, bloating, pain, pressure Cancer History: u Surgery, RadiationHistory: u Encounter Type: Initial Additional signs and symptoms: . ORDERING SYSTEM PROVIDED DIAGNOSIS CODES: R53.1 Generalized weakness M16.12 Primary osteoarthritis of left hip M17.0 Primary osteoarthritis of both knees J44.9 Chronic obstructive pulmonary disease, unspecified COPD type ([facility]) M25.551 Right hip pain F03.90 Dementia, unspecified dementia severity, unspecified dementia type, unspecified whether behavioral, psychotic, or mood disturbance or anxiety ([facility]) S32.020D Closed compression fracture of L2 lumbar vertebra with routine healing, subsequent encounter COMPARISON: None. FINDINGS: There is mild constipation, but no obstruction or free air. There are degenerative changes of the spine. There are vascular calcifications present. IMPRESSION: Mild constipation. No acute process. MA/jcw Workstation ID: [id number] [facility] Radiology Study observation (narrative) [facility] XR Chest View and Abdomen [place] and UprightOrdered By: Shaina Dailey on 12-09-2024 [facility] Work Phone: MAGNESIUM LEVELon 12-08-2024 Magnesium [Mass/Vol] 1.4 mg/dL Low 1.6-2.4 [facility] Comment on above: Performed By: #### 4 [id number] #### LAB [address] [place], [place] [address] Jean Gary M.D. [id number] Magnesium Levelon 12-08-2024 Magnesium [Mass/Vol] 1.4 mg/dL Low 1.6 - 2 .4 mg/dL [facility] Magnesium [Mass/Vol]on 12-08 Interpretation and review of laboratory results Abnormal [facility] BASIC METABOLIC PANELon - Anion gap [Moles/Vol] 16 mmol/L Normal 10-20 [facility] Comment on above: Order Comment: [facility] has implemented the eGFR calculation approach that does not have a coefficient for race that conforms to the NKF-ASN Task Force Recommendations. Performed By: #### 4 [id number] #### LAB [address] [place], [place] [address] Jean Gary M.D. [id number] Calcium [Mass/Vol] 9.8 mg/dL Normal 8.4-10.2 [facility] Comment on above: Order Comment: [facility] has implemented the eGFR calculation approach that does not have a coefficient for race that conforms to the NKF-ASN Task Force Recommendations. Performed By: #### 4 [id number] #### LAB [address] [place] [address] Jean Gary M.D. [id number] Chloride [Moles/Vol] 98 mmol/L Normal 98-108 [facility] Comment on above: Order Comment: [facility] has implemented the eGFR calculation approach that does not have a coefficient for race that conforms to the NKF-ASN Task Force Recommendations. Performed By: #### 4 [id number] #### LAB [address] [place] [address] Jean Gary M.D. [id number] Creatinine [Mass/Vol] 0.54 mg/dL Low 0.60-1.10 [facility] Comment on above: Order Comment: [facility] has implemented the eGFR calculation approach that does not have a coefficient for race that conforms to the NKF-ASN Task Force Recommendations. Performed By: #### 4 [id number] #### LAB [address] [place] [address] Jean Gary M.D. [id number] EGFR 96 mL/min/1.73 m2 Normal >=60 [facility] Comment on above: Order Comment: [facility] has implemented the eGFR calculation approach that does not have a coefficient for race that conforms to the NKF-ASN Task Force Recommendations. Result Comment: Cassi mated GFR was calculated using the 2020 CKD-EPI creatinine equation. Performed By: #### 4 [id number] #### LAB [address] [place] [address] Jean Gary M.D. [id number] Glucose [Mass/Vol] 130 mg/dL High 65-99 [facility] Comment on above: Order Comment: [facility] has implemented the eGFR calculation approach that does not have a coefficient for race that conforms to the NKF-ASN Task Force Recommendations. Performed By: #### 4 [id number] #### LAB [address] [place] [address] Jean Gary M.D. [id number] HCO3 (Bld) [Moles/Vol] 25 mmol/L Normal 21-32 [facility] Comment on above: Order Comment: [facility] has implemented the eGFR calculation approach that does not have a coefficient for race that conforms to the NKF-ASN Task Force Recommendations. Performed By: #### 4 6124 #### LAB [address] [place] [address] Jean Gary M.D. [id number] Potassium [Moles/Vol] 3.9 mmol/L Normal 3.5-5.1 [facility] Comment on above: Order Comment: [facility] has implemented the eGFR calculation approach that does not have a coefficient for race that conforms to the NKF-ASN Task Force Recommendations. Performed By: #### 4 6124 #### LAB [address] [place] [address] Jean Gary M.D. [id number] Sodium [Moles/Vol] 135 mmol/L Normal 135-145 [facility] Comment on above: Order Comment: [facility] has implemented the eGFR calculation approach that does not have a coefficient for race that conforms to the NKF-ASN Task Force Recommendations. Performed By: #### 4 6124 #### LAB [address] [place] [address] Jean Gary M.D. [id number] Urea nitrogen [Mass/Vol] 7 mg/dL Low 8-25 [facility] Comment on above: Order Comment: [facility] has implemented the eGFR calculation approach that does not have a coefficient for race that conforms to the NKF-ASN Task Force Recommendations. Performed By: #### 4 6124 #### LAB [address] [place], [place] [address] Jean Gary M.D. [id number] Urea nitrogen/Creatinine [Mass ratio] 13.0 mg/mg Normal 10.0-20.0 [facility] Comment on above: Order Comment: [facility] has implemented the eGFR calculation approach that does not have a coefficient for race that conforms to the NKF-ASN Task Force Recommendations. Performed By: #### 4 [id number] #### LAB [address] [place], [place] [address] Jean Gary M.D. [id number] Basic metabolic 2000 panelon 12-06-2024 Anion gap [Moles/Vol] 16 mmol/L 10 - 20 mmol/L [facility] Calcium [Mass/Vol] 9.8 mg/dL 8.4 - 10. 2 mg/dL [facility] Chloride [Moles/Vol] 98 mmol/L 98 - 10 8 mmol/L [facility] Creatinine [Mass/Vol] 0.54 mg/dL Low 0.60 - 1.20 mg/dL [facility] GFR/1.73 sq M.predicted CKD-EPI (S/P/Bld) [Vol rate/Area] 96 - PINF [facility] Comment on above: Estimated GFR was ca lculated using the 2020 CKD-EPI creatinine equation. Glucose [Mass/Vol] 130 mg/dL High 65 - 99 mg/dL [facility] HCO3 [Moles/Vol] 25 mmol/L 21 - 32 mmol/L [facility] Interpretation and review of laboratory results Abnormal [facility] Potassium [Moles/Vol] 3.9 mmol/L 3.5 - 5.1 mmol/L [facility] Sodium [Moles/Vol] 135 mmol/L 135 - 145 mmol/L [facility] Urea nitrogen [Mass/Vol] 7 mg/dL Low 8 - 25 mg/dL [facility] Urea nitrogen/Creatinine [Mass ratio] 13 mg/mg 10.0 - 20.0 [facility] has implemented the eGFR calculation approach that does not have a coefficient for race that conforms to the NKF-ASN Task Force Recommendations. [facility] MR BRAIN WITHOUT CONTRASTon 12-06-2024 MR BRAIN WITHOUT CONTRAST Normal [facility] Comment on above: Order Comment: Injur y/Trauma or Illness?:Illness/OtherHow long have you had these symptoms (acute/chronic)?:UnknownReason for exam?:frequent falls over the last week: ataxia and generalized weakness: hx of uterine ca:Type of Exam?:UnknownAdditional signs and symptoms?:n MR Brain WO contraston 12-06 1. No acute intracranial abnormality within limitations study. 2. Mild cerebral volume loss with mild chronic microvascular ischemic changes. 3. Significant paranasal sinus disease. Clinical correlation sinusitis is recommended. Workstation ID: [id number] [place] EXAMINATION: MR BRAIN WITHOUT CONTRAST HISTORY: Neuro deficit, acute, stroke suspected 11/25/22-40MIN.APPT'S W/DR.DALIA MOTLEY Injury/Trauma or Illness?:Illness/Other How long have you had these symptoms (acute/chronic)?:Unkno wn Reason for exam?:frequent falls over the last week: ataxia and generalized weaknes s: Hx of uterine ca: Type of Exam?:Unknown R53.1 Generalized weakness 11/25/22-40MIN.APPT'S W/DR.DALIA MOTLEY Injury/Trauma or Illness?:Illness/Other COMPARISON: CT head 01/18/1925 TECHNIQUE: Multiplanar multiecho sequences were performed through the brain utilizing T1 and T2 weighting, as well as either axial susceptibility weighted or gradient echo sequences, and axial diffusion weighted images. Imaging was performed without contrast administration. FINDINGS: Diagnostic Quality: Adequate. There is a prominence of the brain sulci and ventricle consistent with volume loss. There are scattered T2 hyperintensity foci in the periventricular deep white matter centrum semiovale and subcortical white matter both cerebral hemispheres which are nonspecific in appearance but likely represent chronic microvascular ischemic changes. There is no intraparenchymal mass, mass effect or midline shift is noted. No abnormal extra-axial fluid collections are seen. The basal cisterns are patent. No evidence of acute infarction or definite intracranial hemorrhage within limitation of the study. Vascular Flow Voids: Normal. Paranasal Sinuses and Mastoid Air Cells: Circumferential mucosal thickening in both maxillary sinuses and ethmoid air cells. Mild mucosal thickening in the frontal sinuses bilaterally. Orbits: No definite masses within the limitations of the study. Extracranial Findings: None. Craniocervical Junction and Skull Base: No tonsillar ectopia or mass is present. Mallika Mejia MD - 12/06/2024 EXAMINATION: MR BRAIN WITHOUT CONTRAST HISTORY: Neuro deficit, acute, stroke suspected 11/25/22-40MIN.APPT'S W/DR.DALIA MOTLEY Injury/Trauma or Illness?:Illness/Other How long have you had these symptoms (acute/chronic)?:Unkno wn Reason for exam?:frequent falls over the last week: ataxia and generalized weaknes s: Hx of uterine ca: Type of Exam?:Unknown R53.1 Generalized weakness 11/25/22-40MIN.APPT'S W/DR.DALIA MOTLEY Injury/Trauma or Illness?:Illness/Other COMPARISON: CT head 01/18/1925 TECHNIQUE: Multiplanar multiecho sequences were performed through the brain utilizing T1 and T2 weighting, as well as either axial susceptibility weighted or gradient echo sequences, and axial diffusion weighted images. Imaging was performed without contrast administration. FINDINGS: Diagnostic Quality: Adequate. There is a prominence of the brain sulci and ventricle consistent with volume loss. There are scattered T2 hyperintensity foci in the periventricular deep white matter centrum semiovale and subcortical white matter both cerebral hemispheres which are nonspecific in appearance but likely represent chronic microvascular ischemic changes. There is no intraparenchymal mass, mass effect or midline shift is noted. No abnormal extra-axial fluid collections are seen. The basal cisterns are patent. No evidence of acute infarction or definite intracranial hemorrhage within limitation of the study. Vascular Flow Voids: Normal. Paranasal Sinuses and Mastoid Air Cells: Circumferential mucosal thickening in both maxillary sinuses and ethmoid air cells. Mild mucosal thickening in the frontal sinuses bilaterally. Orbits: No definite masses within the limitations of the study. Extracranial Findings: None. Craniocervical Junction and Skull Base: No tonsillar ectopia or mass is present. IMPRESSION: 1. No acute intracranial abnormality within limitations study. 2. Mild cerebral volume loss with mild chronic microvascular ischemic changes. 3. Significant paranasal sinus disease. Clinical correlation sinusitis is recommended. Workstation ID: [id number] [facility] Radiology Study observation (narrative) [facility] MR Brain WO contrastOrdered By: Brett Multani on 12-06-2024 [facility] Work Phone: BASIC METABOLIC PANELon 11-16 Anion gap [Moles/Vol] 14 mmol/L Normal 10-20 [facility] Comment on above: Order Comment: [facility] has implemented the eGFR calculation approach that does not have a coefficient for race that conforms to the NKF-ASN Task Force Recommendations. Performed By: #### [id number] #### LAB [address] [place] [address] Jean Gary M.D. [id number] Calcium [Mass/Vol] 9.2 mg/dL Normal 8.4-10.2 [facility] Comment on above: Order Comment: [facility] has implemented the eGFR calculation approach that does not have a coefficient for race that conforms to the NKF-ASN Task Force Recommendations. Performed By: #### 4 6124 #### LAB [address] [address] Jean Gary M.D. [id number] Chloride [Moles/Vol] 97 mmol/L Low 98-108 [facility] Comment on above: Order Comment: [facility] has implemented the eGFR calculation approach that does not have a coefficient for race that conforms to the NKF-ASN Task Force Recommendations. Performed By: #### 4 6124 #### LAB [address] [place], [place] [address] Jean Gary M.D. [id number] Creatinine [Mass/Vol] 0.65 mg/dL Normal 0.60-1.10 [facility] Comment on above: Order Comment: [facility] has implemented the eGFR calculation approach that does not have a coefficient for race that conforms to the NKF-ASN Task Force Recommendations. Performed By: #### 4 6124 #### LAB [address] [id number] Jean Gary M.D. [id number] EGFR 91 mL/min/1.73 m2 Normal >=60 [facility] Comment on above: Order Comment: [facility] has implemented the eGFR calculation approach that does not have a coefficient for race that conforms to the NKF-ASN Task Force Recommendations. Result Comment: Cassi mated GFR was calculated using the 2020 CKD-EPI creatinine equation. Performed By: #### 4 6124 #### LAB [address] [address] Jean Gary M.D. [id number] Glucose [Mass/Vol] 130 mg/dL High 65-99 [facility] Comment on above: Order Comment: [facility] has implemented the eGFR calculation approach that does not have a coefficient for race that conforms to the NKF-ASN Task Force Recommendations. Performed By: #### 4 6124 #### LAB [address] [address] Jean Gary M.D. [id number] HCO3 (Bld) [Moles/Vol] 26 mmol/L Normal 21-32 [facility] Comment on above: Order Comment: [facility] has implemented the eGFR calculation approach that does not have a coefficient for race that conforms to the NKF-ASN Task Force Recommendations. Performed By: #### 4 6124 #### LAB [address] [address] Jean Gary M.D. [id number] Potassium [Moles/Vol] 3.7 mmol/L Normal 3.5-5.1 [facility] Comment on above: Order Comment: [facility] has implemented the eGFR calculation approach that does not have a coefficient for race that conforms to the NKF-ASN Task Force Recommendations. Performed By: #### 4 6120 #### LAB [address] [address] Jean Gary M.D. [id number] Sodium [Moles/Vol] 133 mmol/L Low 135-145 [facility] Comment on above: Order Comment: [facility] has implemented the eGFR calculation approach that does not have a coefficient for race that conforms to the NKF-ASN Task Force Recommendations. Performed By: #### 4 6155 #### LAB [address] [id number] Jean Gary M.D. [id number] Urea nitrogen [Mass/Vol] 9 mg/dL Normal 8-25 [facility] Comment on above: Order Comment: [facility] has implemented the eGFR calculation approach that does not have a coefficient for race that conforms to the NKF-ASN Task Force Recommendations. Performed By: #### 4 6124 #### LAB [address] [place], [place] [address] Jean Gary M.D. [id number] Urea nitrogen/Creatinine [Mass ratio] 13.8 mg/mg Normal 10.0-20.0 [facility] Comment on above: Order Comment: [facility] has implemented the eGFR calculation approach that does not have a coefficient for race that conforms to the NKF-ASN Task Force Recommendations. Performed By: #### 4 6124 #### LAB [address] [place], [place] [address] Jean Gary M.D. [id number] Basic metabolic 2000 panelon 12-05-2024 Anion gap [Moles/Vol] 14 mmol/L 10 - 20 mmol/L [facility] Calcium [Mass/Vol] 9.2 mg/dL 8.4 - 10. 2 mg/dL [facility] Chloride [Moles/Vol] 97 mmol/L Low 98 - 10 8 mmol/L [facility] Creatinine [Mass/Vol] 0.65 mg/dL 0.60 - 1.20 mg/dL [facility] GFR/1.73 sq M.predicted CKD-EPI (S/P/Bld) [Vol rate/Area] 91 - PINF [facility] Comment on above: Estimated GFR was ca lculated using the 2020 CKD-EPI creatinine equation. Glucose [Mass/Vol] 130 mg/dL High 65 - 99 mg/dL [facility] HCO3 [Moles/Vol] 26 mmol/L 21 - 32 mmol/L [facility] Interpretation and review of laboratory results Abnormal [facility] Potassium [Moles/Vol] 3.7 mmol/L 3.5 - 5.1 mmol/L [facility] Sodium [Moles/Vol] 133 mmol/L Low 135 - 145 mmol/L [facility] Urea nitrogen [Mass/Vol] 9 mg/dL 8 - 25 mg/dL [facility] Urea nitrogen/Creatinine [Mass ratio] 13.8 mg/mg 10.0 - 20.0 [facility] has implemented the eGFR calculation approach that does not have a coefficient for race that conforms to the NKF-ASN Task Force Recommendations. [facility] CBCon 12-05-2024 AUTO NRBC 0.0 % Normal [facility] Comment on above: Performed By: #### 4 [id number] #### LAB [address] [address] Jean Gary M.D. [id number] AUTO NRBC ABS COUNT 0.00 K/mcL Normal 0.00-0.00 [facility] Comment on above: Performed By: #### 4 [id number] #### LAB [address] [address] Jean Gary M.D. [id number] Erythrocyte distribution width (RBC) [Ratio] 13.3 % Normal 11.6-14.8 [facility] Comment on above: Performed By: #### 4 [id number] #### LAB [address] [address] Jean Gary M.D. [id number] Hematocrit (Bld) [Volume fraction] 35.8 % Low 36.0-46.0 [facility] Comment on above: Performed By: #### 4 [id number] #### LAB [address] [address] Jean Gary M.D. [id number] Hemoglobin (Bld) [Mass/Vol] 12.0 g/dL Normal 12.0-16.0 [facility] Comment on above: Performed By: #### 4 [id number] #### LAB [address] [address] Jean Gary M.D. [id number] MCH (RBC) [Entitic mass] 32.9 pg Normal 26.0-34.0 [facility] Comment on above: Performed By: #### 4 [id number] #### LAB [address] [address] Jean Gary M.D. [id number] MCV (RBC) [Entitic vol] 98.1 fL Normal 80.0-100.0 [facility] Comment on above: Performed By: #### 4 [id number] #### LAB [address] [address] Jean Gary M.D. [id number] MEAN CORPUSCULAR HEMOGLOBIN CONC 33.5 g/dL Normal 31.0-37.0 [facility] Comment on above: Performed By: #### 4 [id number] #### LAB [address] [address] Jean Gary M.D. [id number] Platelet mean volume (Bld) [Entitic vol] 10.2 fL Normal 9.4-12.4 [facility] Comment on above: Performed By: #### 4 [id number] #### LAB [address] [address] Jean Gary M.D. [id number] Platelets (Bld) [#/Vol] 210 10*3/uL Normal 150-400 [facility] Comment on above: Performed By: #### 4 [id number] #### LAB [address] [address] Jean Gary M.D. [id number] RBC (Bld) [#/Vol] 3.65 10*6/uL Low 4.00-5.20 [facility] Comment on above: Performed By: #### 4 [id number] #### LAB [address] [address] Jean Gary M.D. [id number] WBC (Bld) [#/Vol] 4.96 10*3/uL Normal 4.50-11.00 [facility] Comment on above: Performed By: #### 4 [id number] #### LAB [address] [address] Jean Gary M.D. [id number] CBC panel Auto (Bld)on 12-05 Erythrocyte distribution width (RBC) [Entitic vol] 13.3 % 11.6 - 14.8 % [facility] Hematocrit (Bld) [Volume fraction] 35.8 % Low 36.0 - 46.0 % [facility] Hemoglobin (Bld) [Mass/Vol] 12 g/dL 12.0 - 16.0 g/dL [facility] Interpretation and review of laboratory results Abnormal [facility] MCH (RBC) [Entitic mass] 32.9 pg 26.0 - 34.0 pg [facility] MCHC (RBC) [Mass/Vol] 33.5 g/dL 31.0 - 37.0 g/dL [facility] MCV (RBC) [Entitic vol] 98.1 fL 80.0 - 100.0 fL [facility] Nucleated RBC (Bld) [#/Vol] 0 10*3/uL [facility] Nucleated RBC/100 WBC (Bld) [Ratio] 0 % [facility] Platelet mean volume (Bld) [Entitic vol] 10.2 fL 9.4 - 12.4 fL [facility] Platelets (Bld) [#/Vol] 210 10*3/uL [facility] RBC (Bld) [#/Vol] 3.65 10*6/uL Low [facility] WBC (Bld) [#/Vol] 4.96 10*3/uL [facility] CBCon 12-04-2024 AUTO NRBC 0.0 % Normal [facility] Comment on above: Performed By: #### 4 [id number] #### LAB [address] [address] Jean Gary M.D. [id number] AUTO NRBC ABS COUNT 0.00 K/mcL Normal 0.00-0.00 [facility] Comment on above: Performed By: #### 4 [id number] #### LAB [address] [address] Jean Gary M.D. [id number] Erythrocyte distribution width (RBC) [Ratio] 13.3 % Normal 11.6-14.8 [facility] Comment on above: Performed By: #### 4 [id number] #### LAB [address] [id number] Jean Gary M.D. [id number] Hematocrit (Bld) [Volume fraction] 38.8 % Normal 36.0-46.0 [facility] Comment on above: Performed By: #### 4 [id number] #### LAB [address] [address] Jean Gary M.D. [id number] Hemoglobin (Bld) [Mass/Vol] 12.8 g/dL Normal 12.0-16.0 [facility] Comment on above: Performed By: #### 4 [id number] #### LAB [address] [address] Jean Gary M.D. [id number] MCH (RBC) [Entitic mass] 32.1 pg Normal 26.0-34.0 [facility] Comment on above: Performed By: #### 4 [id number] #### LAB [address] [address] Jean Gary M.D. [id number] MCV (RBC) [Entitic vol] 97.2 fL Normal 80.0-100.0 [facility] Comment on above: Performed By: #### 4 [id number] #### LAB [address] [address] Jean Gary M.D. [id number] MEAN CORPUSCULAR HEMOGLOBIN CONC 33.0 g/dL Normal 31.0-37.0 [facility] Comment on above: Performed By: #### 4 [id number] #### LAB [address] [address] Jean Gary M.D. [id number] Platelet mean volume (Bld) [Entitic vol] 9.9 fL Normal 9.4-12.4 [facility] Comment on above: Performed By: #### 4 [id number] #### LAB [address] [address] Jean Gary M.D. [id number] Platelets (Bld) [#/Vol] 251 10*3/uL Normal 150-400 [facility] Comment on above: Performed By: #### 4 [id number] #### LAB [address] [address] Jean Gary M.D. [id number] RBC (Bld) [#/Vol] 3.99 10*6/uL Low 4.00-5.20 [facility] Comment on above: Performed By: #### 4 [id number] #### LAB [address] [place], [place] [address] Jean Gary M.D. [id number] WBC (Bld) [#/Vol] 5.64 10*3/uL Normal 4.50-11.00 [facility] Comment on above: Performed By: #### 4 [id number] #### LAB [address] [place], [place] [address] Jean Gary M.D. [id number] CBC panel Auto (Bld)on 12-04 Erythrocyte distribution width (RBC) [Entitic vol] 13.3 % 11.6 - 14.8 % [facility] Hematocrit (Bld) [Volume fraction] 38.8 % 36.0 - 46.0 % [facility] Hemoglobin (Bld) [Mass/Vol] 12.8 g/dL 12.0 - 16.0 g/dL [facility] Interpretation and review of laboratory results Abnormal [facility] MCH (RBC) [Entitic mass] 32.1 pg 26.0 - 34.0 pg [facility] MCHC (RBC) [Mass/Vol] 33 g/dL 31.0 - 37.0 g/dL [facility] MCV (RBC) [Entitic vol] 97.2 fL 80.0 - 100.0 fL [facility] Nucleated RBC (Bld) [#/Vol] 0 10*3/uL [facility] Nucleated RBC/100 WBC (Bld) [Ratio] 0 % [facility] Platelet mean volume (Bld) [Entitic vol] 9.9 fL 9.4 - 12.4 fL [facility] Platelets (Bld) [#/Vol] 251 10*3/uL [facility] RBC (Bld) [#/Vol] 3.99 10*6/uL Low [facility] WBC (Bld) [#/Vol] 5.64 10*3/uL [facility] COMPREHENSIVE METABOLIC PANE Bruce 12-04-2024 Albumin [Mass/Vol] 3.4 g/dL Normal 3.2-5.2 [facility] Comment on above: Order Comment: [facility] has implemented the eGFR calculation approach that does not have a coefficient for race that conforms to the NKF-ASN Task Force Recommendations. Performed By: #### 4 [id number] #### LAB [address] [address] Jean Gary M.D. [id number] ALP [Catalytic activity/Vol] 73 U/L Normal 40-150 [facility] Comment on above: Order Comment: [facility] has implemented the eGFR calculation approach that does not have a coefficient for race that conforms to the NKF-ASN Task Force Recommendations. Performed By: #### 4 [id number] #### LAB [address] [address] Jean Gary M.D. [id number] ALT [Catalytic activity/Vol] 20 U/L Normal 0-35 U/L [facility] Comment on above: Order Comment: [facility] has implemented the eGFR calculation approach that does not have a coefficient for race that conforms to the NKF-ASN Task Force Recommendations. Performed By: #### 4 [id number] #### LAB [address] [address] Jean Gary M.D. [id number] Anion gap [Moles/Vol] 16 mmol/L Normal 10-20 [facility] Comment on above: Order Comment: [facility] has implemented the eGFR calculation approach that does not have a coefficient for race that conforms to the NKF-ASN Task Force Recommendations. Performed By: #### 4 6126 #### LAB [address] [address] Jean Gary M.D. [id number] AST [Catalytic activity/Vol] 27 U/L Normal 0-35 U/L [facility] Comment on above: Order Comment: [facility] has implemented the eGFR calculation approach that does not have a coefficient for race that conforms to the NKF-ASN Task Force Recommendations. Performed By: #### 4 6126 #### LAB [address] [address] Jean Gary M.D. [id number] Bilirubin [Mass/Vol] 0.4 mg/dL Normal 0.0-1.3 [facility] Comment on above: Order Comment: [facility] has implemented the eGFR calculation approach that does not have a coefficient for race that conforms to the NKF-ASN Task Force Recommendations. Performed By: #### 4 6126 #### LAB [address] [place], [place] [address] Jean Gary M.D. [id number] Calcium [Mass/Vol] 9.7 mg/dL Normal 8.4-10.2 [facility] Comment on above: Order Comment: [facility] has implemented the eGFR calculation approach that does not have a coefficient for race that conforms to the NKF-ASN Task Force Recommendations. Performed By: #### 4 6126 #### LAB [address] [id number] Jean Gary M.D. [id number] Chloride [Moles/Vol] 99 mmol/L Normal 98-108 [facility] Comment on above: Order Comment: [facility] has implemented the eGFR calculation approach that does not have a coefficient for race that conforms to the NKF-ASN Task Force Recommendations. Performed By: #### 4 6126 #### LAB [address] [id number] Jean Gary M.D. [id number] Creatinine [Mass/Vol] 0.61 mg/dL Normal 0.60-1.10 [facility] Comment on above: Order Comment: [facility] has implemented the eGFR calculation approach that does not have a coefficient for race that conforms to the NKF-ASN Task Force Recommendations. Performed By: #### 4 6126 #### LAB [address] [place], [place] [address] Jean Gary M.D. [id number] EGFR 93 mL/min/1.73 m2 Normal >=60 [facility] Comment on above: Order Comment: [facility] has implemented the eGFR calculation approach that does not have a coefficient for race that conforms to the NKF-ASN Task Force Recommendations. Result Comment: Cassi mated GFR was calculated using the 2020 CKD-EPI creatinine equation. Performed By: #### 4 6126 #### LAB [address] [address] Jean Gary M.D. [id number] Glucose [Mass/Vol] 134 mg/dL High 65-99 [facility] Comment on above: Order Comment: [facility] has implemented the eGFR calculation approach that does not have a coefficient for race that conforms to the NKF-ASN Task Force Recommendations. Performed By: #### 4 6126 #### LAB [address] [address] Jean Gary M.D. [id number] HCO3 (Bld) [Moles/Vol] 25 mmol/L Normal 21-32 [facility] Comment on above: Order Comment: [facility] has implemented the eGFR calculation approach that does not have a coefficient for race that conforms to the NKF-ASN Task Force Recommendations. Performed By: #### 4 6126 #### LAB [address] [address] Jean Gary M.D. [id number] Potassium [Moles/Vol] 3.9 mmol/L Normal 3.5-5.1 [facility] Comment on above: Order Comment: [facility] has implemented the eGFR calculation approach that does not have a coefficient for race that conforms to the NKF-ASN Task Force Recommendations. Performed By: #### 4 6126 #### LAB [address] [address] Jean Gary M.D. [id number] Protein [Mass/Vol] 5.9 g/dL Low 6.0-8.0 [facility] Comment on above: Order Comment: [facility] has implemented the eGFR calculation approach that does not have a coefficient for race that conforms to the NKF-ASN Task Force Recommendations. Performed By: #### 4 6126 #### LAB [address] [address] Jean Gary M.D. [id number] Sodium [Moles/Vol] 136 mmol/L Normal 135-145 [facility] Comment on above: Order Comment: [facility] has implemented the eGFR calculation approach that does not have a coefficient for race that conforms to the NKF-ASN Task Force Recommendations. Performed By: #### 4 6126 #### LAB [address] [place], [place] [address] Jean Gary M.D. [id number] Urea nitrogen [Mass/Vol] 10 mg/dL Normal 8-25 [facility] Comment on above: Order Comment: [facility] has implemented the eGFR calculation approach that does not have a coefficient for race that conforms to the NKF-ASN Task Force Recommendations. Performed By: #### 4 6126 #### LAB [address] [place], [place] [address] Jean Gary M.D. [id number] Urea nitrogen/Creatinine [Mass ratio] 16.4 mg/mg Normal 10.0-20.0 [facility] Comment on above: Order Comment: [facility] has implemented the eGFR calculation approach that does not have a coefficient for race that conforms to the NKF-ASN Task Force Recommendations. Performed By: #### 4 [id number] #### LAB [address] [place], [place] [address] Jean Gary M.D. [id number] Comprehensive metabolic 2000 panelon 12-04-2024 Albumin [Mass/Vol] 3.4 g/dL 3.2 - 5.2 g/dL [facility] ALP [Catalytic activity/Vol] 73 U/L 40 - 150 U/L [facility] ALT [Catalytic activity/Vol] 20 U/L 0 - 35 U/L [facility] Anion gap [Moles/Vol] 16 mmol/L 10 - 20 mmol/L [facility] AST [Catalytic activity/Vol] 27 U/L 0 - 35 U/L [facility] Bilirubin [Mass/Vol] 0.4 mg/dL 0.0 - 1 .3 mg/dL [facility] Calcium [Mass/Vol] 9.7 mg/dL 8.4 - 10. 2 mg/dL [facility] Chloride [Moles/Vol] 99 mmol/L 98 - 10 8 mmol/L [facility] Creatinine [Mass/Vol] 0.61 mg/dL 0.60 - 1.20 mg/dL [facility] GFR/1.73 sq M.predicted CKD-EPI (S/P/Bld) [Vol rate/Area] 93 - PINF [facility] Comment on above: Estimated GFR was ca lculated using the 2020 CKD-EPI creatinine equation. Glucose [Mass/Vol] 134 mg/dL High 65 - 99 mg/dL [facility] HCO3 [Moles/Vol] 25 mmol/L 21 - 32 mmol/L [facility] Potassium [Moles/Vol] 3.9 mmol/L 3.5 - 5.1 mmol/L [facility] Protein [Mass/Vol] 5.9 g/dL Low 6.0 - 8.0 g/dL [facility] Sodium [Moles/Vol] 136 mmol/L 135 - 145 mmol/L [facility] Urea nitrogen [Mass/Vol] 10 mg/dL 8 - 25 mg/dL [facility] Urea nitrogen/Creatinine [Mass ratio] 16.4 mg/mg 10.0 - 20.0 [facility] has implemented the eGFR calculation approach that does not have a coefficient for race that conforms to the NKF-ASN Task Force Recommendations. [facility] H AND Pancho 12-04-2024 H AND P Normal [facility] LIPID PANELon 12-04-2024 Cholesterol [Mass/Vol] 223 mg/dL High 100-199 [facility] Comment on above: Performed By: #### 4 6087 ####[facility] [address] [place], [place] [address] Jean Gary M.D. [id number] Cholesterol in HDL [Mass/Vol] 53 mg/dL Normal 40-59 [facility] Comment on above: Performed By: #### 4 6087 ####[facility] [address] [address] Jean Gary M.D. [id number] Cholesterol.total/Ch olesterol in HDL [Mass ratio] 4.2 {ratio} Normal [facility] Comment on above: Result Comment: Fema le Cholesterol/HDL Ratio:Average risk: 4.41/2 average risk: 3.32 x average risk: 7.1 Performed By: #### 4 6087 ####[facility] [address] [place], [place] [address] Jean Gary M.D. [id number] LDL CHOLESTEROL CALCULATED 143 mg/dL High 10-130 [facility] Comment on above: Result Comment: [facility] Cholesterol Education Program Guidelines: LDL CholesterolOptimal: <100 mg/dLNear Optimal/above Optimal: 100-129 mg/dLBorderline High: 130-159 mg/dLHigh: 160-189 mg/dLVery High: greater than or equal to 190 mg/dL Performed By: #### 4 6087 #### LAB [address] [place], [place] [address] Jean Gary M.D. [id number] NON HDL CHOL 170 mg/dL Normal [facility] Comment on above: Result Comment: [facility] [employer] Cholesterol Education [employer] Guidelines: NON HDL CholesterolDesirable: <130 mg/dLBorderline High: 130-159 mg/dLHigh: 160-189 mg/dLVery High: > or = 190 mg/dL Performed By: #### 4 [id number] #### LAB [address] [address] Jean Gary M.D. [id number] Triglyceride [Mass/Vol] 135 mg/dL Normal 30-150 [facility] Comment on above: Performed By: #### 4 6087 ####[facility] [address] [place], [place] [address] Jean Gary M.D. [id number] Lipid 1996 panelon 5 Cholesterol [Mass/Vol] 223 mg/dL High 100 - 199 mg/dL [facility] Cholesterol in HDL [Mass/Vol] 53 mg/dL 40 - 59 mg/dL [facility] Cholesterol in LDL [Mass/Vol] 143 mg/dL High 10 - 130 mg/dL [facility] Comment on above: National Cholesterol Education Program Guidelines: LDL Cholesterol Optimal: <100 mg/dL Near Optimal/above Optimal: 100-129 mg/dL Borderline High: 130-159 mg/dL High: 160-189 mg/dL Very High: greater than or equal to 190 mg/dL Cholesterol non HDL [Mass/Vol] 170 mg/dL [facility] Comment on above: National Cholesterol Education Program Guidelines: NON HDL Cholesterol Desirable: <130 mg/dL Borderline High: 130-159 mg/dL High: 160-189 mg/dL Very High: > or = 190 mg/dL Cholesterol.total/Ch olesterol in HDL [Mass ratio] 4.2 {ratio} ratio [facility] Comment on above: Female Cholesterol/H DL Ratio: Average risk: 4.4 1/2 average risk: 3.3 2 x average risk: 7.1 Triglyceride [Mass/Vol] 135 mg/dL 30 - 150 mg/dL [facility] MAGNESIUM LEVELon 12-04-2024 Magnesium [Mass/Vol] 1.6 mg/dL Normal 1.6-2.4 [facility] Comment on above: Performed By: #### 4 [id number] #### LAB [address] [place], [place] [address] Jean Gary M.D. [id number] Magnesiumon 12-04-2024 Magnesium [Mass/Vol] 1.6 mg/dL 1.6 - 2 .4 mg/dL [facility] No Panel Informationon 12-04 Interpretation and review of laboratory results Normal [facility] Interpretation and review of laboratory results Abnormal [facility] PHOSPHORUSon 12-04-2024 Phosphate [Mass/Vol] 4.2 mg/dL High 2.8-4.1 [facility] Comment on above: Performed By: #### 4 [id number] #### LAB [address] [address] Jean Gary M.D. [id number] Phosphoruson 12-04-2024 Phosphate [Mass/Vol] 4.2 mg/dL High 2.8 - 4 .1 mg/dL [facility] TSH DL <= 0.005 mIU/L Qnon 0 12-04-2024 TSH Qn 1.84 m[IU]/L [facility] TSH WITH REFLEX FREE T4on TSH Qn 1.84 m[IU]/L Normal 0.27-4.20 [facility] Comment on above: Performed By: #### [id number] #### LAB [address] [place], [place] [address] Jean Gary M.D. [id number] COVID-19, MOLECULARon 2024 SARS-CoV-2 (COVID-19) Ab IA Ql Not detected Normal Not Detected [facility] Comment on above: Result Comment: Test ing was performed using the [employer] ID NOW COVID-19 assay on the ID NOW platform. This test has not been approved for use in asymptomatic patients and its performance in this patient population has not been evaluated. Negative results do not rule out the presence of SARS-CoV-2/COVID-19. CT HEAD OR BRAIN WITHOUT CON TRASTon 12-03-2024 CT HEAD OR BRAIN WITHOUT CONTRAST EXAMINATION: CT HEAD OR BRAIN WITHOUT CONTRAST HISTORY: ORDERING SYSTEM PROVIDED HISTORY: Head trauma, intracranial venous injury suspected, TECHNOLOGIST PROVIDED HISTORY: Injury/Trauma Reason for exam: Patient reports feeling fatigued and weak. Encounter Type: Initial Mechanism of injury: fell 1 week ago ORDERING SYSTEM PROVIDED DIAGNOSIS CODES: COMPARISON: CT head from 09/30/2024. TECHNIQUE: CT examination of the head without IV contrast. Dose reduction techniques were achieved by using automated exposure control and/or adjustment of mA and/or kV according to patient size and/or use of iterative reconstruction technique. FINDINGS: Intact calvaria. Clear bilateral mastoid air cells. Clear bilateral middle ears. Secretions dependently within the right maxillary antrum and right sphenoid sinus chamber. Mucosal thickening with high density inspissated secretions at the floor of the left maxillary antrum. Postsurgical changes from bilateral medial maxillary antrostomies. No unexpected extra-axial fluid collection. Mild chronic microvascular ischemic disease with scattered areas of abnormal hypodensity involving the cerebral white matter. Scattered vascular atherosclerotic calcifications involving the bilateral cavernous ICA segments. No evidence of acute intracranial hemorrhage, hydrocephalus, mass lesion or midline shift. IMPRESSION: 1. No evidence of acute intracranial abnormality. 2. Acute on chronic paranasal sinusitis. RNS/alt Workstation ID: [id number] Dictated by: KELSEA RUIZ on Sat Dec 03, 2024 7:43:58 PM EDT Transcribed by: JACKELYN GOMEZ on Sat Dec 03, 2024 7:53:22 PM EDT Finalized by: KELSEA RUIZ on Sat Dec 03, 2024 7:55:53 PM EDT [facility] Comment on above: Order Comment: Injur y/Trauma or Illness?:Injury/Trauma How long have you had these symptoms (acute/chronic)?:Acute Reason for exam?:Patient reports feeling fatigued and weak. Type of Exam?:Initial Mechanism of injury?:fell [address] PELVIS WITHOUT CONTRASTon 12-03-2024 CT PELVIS WITHOUT CONTRAST EXAMINATION: CT PELVIS WITHOUT CONTRAST HISTORY: 11/25/22-40MIN.APPT'S W/DR.DALIA MOTLEY Injury/Trauma or Illness?:Injury/Trauma Hip trauma, fracture suspected, xray done COMPARISON: Bilateral hip and pelvis x-ray from the same day. Older CT scan of the abdomen and pelvis dated 11/16/2024. TECHNIQUE: Contiguous axial images of the pelvis without intravenous or oral contrast. Coronal and sagittal reformations are provided. FINDINGS: OSSEOUS STRUCTURES: There is linear sclerosis in the superior coccyx. The imaging findings favor subacute or chronic coccygeal fracture. No definitive acute fractures are appreciated in the bony pelvis or either hip. A left hip prosthesis is in place demonstrating anatomic alignment. There is increased lucency along the medial proximal femoral component in a pattern favoring small particle disease. This is a chronic finding. There is moderate to severe degeneration in the right hip joint. SOFT TISSUES: No fluid collections are present in the soft tissues. PELVIC VISCERA: There is a large amount of retained feces in the rectal vault with surrounding inflammation and presacral edema concerning for stercoral colitis. IMPRESSION: 1. No definitive acute fractures in either hip or bony pelvis. 2. Large amount of retained feces in the rectal vault with surrounding inflammation concerning for stercoral colitis. Workstation ID: [id number] Dictated by: DONY BECERRA on Sat Dec 03, 2024 9:49:20 PM EDT Transcribed by: DONY BECERRA on Sat Dec 03, 2024 9:49:20 PM EDT Finalized by: DONY BECERRA on [facility] Dec 03, 2024 9:49:20 PM EDT [facility] Comment on above: Order Comment: Injur y/Trauma or Illness?:Injury/Trauma How long have you had these symptoms (acute/chronic)?:Acute Reason for exam?:Patient reports feeling fatigued and weak. Type of Exam?:Initial Mechanism of injury?:fell 1 week ago ED Prov Noteon 12-03-2024 ED Prov Note ED PROVIDER NOTE [facility] NAME: Elizabeth Cisneros AGE: 74 y.o. : 1950 VISIT DATE: 12/03/2024 CSN: [id number] PCP: Sj Motley MD Chief Complaint Patient presents with Fatigue Weakness Chief complaint weakness History of present illness this is 74-year-old female has a history of COPD coronary disease diabetes cervical stenosis recent pancreatitis gastritis who is here with progressive fatigue and weakness to the point that she can get out of her recliner. Her cervical stenosis surgery was canceled. She had a recent fall hit her head also that have resulted in hip pain bilaterally. And is here for that 2. 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 Watters SINUS SURGERY 12/30/2019 balloon sinuplasty - Dr. Key SKIN BIOPSY TONSILLECTOMY TRIGGER FINGER RELEASE Right 03/24/2018 RELEASE A1 TOD LEFT MIDDLE,RING, AND SMALL FINGERS WITH CORTISONE INJECTION RIGHT MIDDLE FINGER A1 TOD; Surgeon: Yonas Nguyen MD TUBAL LIGATION Family History Problem Relation Age of Onset Hypertension Father Asthma Father COPD Father Diabetes Father Hearing loss Father Heart disease Father Hyperlipidemia Father Osteoporosis Mother Hypertension Mother Arthritis Mother Cancer Mother Heart disease Mother Heart disease Maternal Grandfather Heart disease Sister Hypertension Sister Cancer Brother Asthma Brother Diabetes Brother Anesthesia problems Neg Hx Hip fracture Neg Hx Social History [1] Previous Medications Medication Sig acetaminophen (TYLENOL) 500 MG tablet Take 1 (one) tablet (500 mg total) by mouth every 6 (six) hours as needed for pain THREE TIMES DAILY . albuterol (PROVENTIL) 2.5 mg /3 mL (0.083 %) nebulizer solution Take 3 mL (2.5 mg total) by nebulization every 6 (six) hours as needed for wheezing . albuterol (PROVENTIL) 2.5 mg /3 mL (0.083 %) nebulizer solution Take 3 mL (2.5 mg total) by nebulization every 6 (six) hours as needed for wheezing . atenoloL (TENORMIN) 50 MG tablet Take 1 (one) tablet (50 mg total) by mouth 2 (two) times a day . [place] Saline Gel Apply topically 2 (two) times a day Apply a pea sized amount to both nostrils at bedtime and in a.m. You can use it more often.. Bevespi Aerosphere 9-4.8 mcg HFAA Inhale 2 puffs 2 (two) times a day . budesonide (PULMICORT) 0.5 mg/2 mL nebulizer solution Take 2 mL (0.5 mg total) by nebulization 2 (two) times a day . CALCITRATE 200 mg (950 mg) tablet Take 200 mg by mouth 3 (three) times a day . desvenlafaxine succinate (PRISTIQ) 100 MG 24 hr tablet Take 1 (one) tablet (100 mg total) by mouth daily . diclofenac sodium 1% (VOLTAREN) 1 % Gel Apply topically 4 (four) times a day as needed for pain . dicyclomine (BENTYL) 20 mg tablet Take 1 (one) tablet (20 mg total) by mouth 4 (four) times a day before meals and nightly for 7 days . ferrous sulfate 325 (65 FE) MG tablet Take 1 (one) tablet (325 mg total) by mouth daily with breakfast Start: 10/28/24. fexofenadine (LASHA) 180 MG tablet Take 1 (one) tablet (180 mg total) by mouth daily . Fish OiL 1,200 (144-216) mg cap Take 1 capsule by mouth 3 (three) times a day . fluticasone propionate (FLONASE) 50 mcg/actuation nasal spray Instill 2 (two) sprays into each nostril 2 (two) times a day . folic acid (FOLVITE) 1 MG tablet Take 1 (one) tablet (1 mg total) by mouth daily . furosemide (LASIX) 20 MG tablet Take 1 (one) (more content not included)... Normal [facility] POC CBC AND DIFFERENTIALon 0 12-03-2024 BASOPHILS ABSOLUTE COUNT 0.04 K/mcL Normal 0.00-0.30 [facility] Basophils/100 WBC (Bld) 0.7 % Normal [facility] Eosinophils (Bld) [#/Vol] 0.04 10*3/uL Normal 0.00-0.50 [facility] Eosinophils/100 WBC (Bld) 0.7 % Normal [facility] Erythrocyte distribution width (RBC) [Ratio] 13.2 % Normal 11.6-14.8 [facility] Hematocrit (Bld) [Volume fraction] 40.3 % Normal 36.0-46.0 [facility] Hemoglobin (Bld) [Mass/Vol] 13.3 g/dL Normal 12.0-16.0 [facility] IG ABSOLUTE 0.00 K/mcL Normal 0.00-0.30 [facility] IG PERCENT 0.00 % Normal [facility] Comment on above: Result Comment: The IG parameter is the percentage of metamyelocytes, myelocytes and promyelocytes. An immature granulocyte count (IG) of 1% or more suggests the possibility of infection, an IG count of 3% is very likely related to an infection. Lymphocytes (Bld) [#/Vol] 1.73 10*3/uL Normal 0.90-4.00 [facility] Lymphocytes/100 WBC (Bld) 32.2 % Normal [facility] MCH (RBC) [Entitic mass] 32.1 pg Normal 26.0-34.0 [facility] MCV (RBC) [Entitic vol] 97.3 fL Normal 80.0-100.0 [facility] MEAN CORPUSCULAR HEMOGLOBIN CONC 33.0 g/dL Normal 31.0-37.0 [facility] Monocytes (Bld) [#/Vol] 0.93 10*3/uL High 0.30-0.90 [facility] Monocytes/100 WBC (Bld) 17.3 % Normal [facility] NEUTROPHILS ABSOLUTE COUNT 2.63 K/mcL Normal 1.70-7.00 [facility] Neutrophils/100 WBC (Bld) 49.1 % Normal [facility] Platelet mean volume (Bld) [Entitic vol] 9.7 fL Normal 9.4-12.4 [facility] Platelets (Bld) [#/Vol] 264 10*3/uL Normal 150-400 [facility] RBC (Bld) [#/Vol] 4.14 10*6/uL Normal 4.00-5.20 [facility] WBC (Bld) [#/Vol] 5.37 10*3/uL Normal 4.50-11.00 [facility] POC INFLUENZA A/B - [facility] 0 12-03-2024 POC INFLUENZA A (FSED) Not detected Normal Not Detected [facility] POC INFLUENZA B (FSED) Not detected Normal Not Detected [facility] POC LIVER PANEL PLUS [facility] 12-03-2024 Albumin [Mass/Vol] 3.7 g/dL Normal 3.2-5.2 [facility] ALP [Catalytic activity/Vol] 76 U/L Normal 40-150 [facility] ALT [Catalytic activity/Vol] 25 U/L Normal 0-40 [facility] Amylase [Catalytic activity/Vol] 44 U/L Normal 25-115 [facility] Amylase [Catalytic activity/Vol] 60 U/L High 7-33 [facility] AST [Catalytic activity/Vol] 34 U/L Normal 0-45 [facility] Bilirubin [Mass/Vol] 0.6 mg/dL Normal 0.0-1.3 [facility] Protein [Mass/Vol] 6.8 g/dL Normal 6.0-8.0 [facility] POC TROPONIN I [facility] 2024 POC TROPONIN I < Normal <0.05 [facility] POC URINALYSIS DIPSTICK,AUTO - [facility] 12-03-2024 POC BILIRUBIN, URINE Negative Normal Negative [facility] POC BLOOD, URINE Negative Normal Negative [facility] POC GLUCOSE, URINE Negative Normal Negative [facility] POC KETONES, URINE Negative Normal Negative [facility] POC LEUKOCYTE ESTERASE, URINE Trace Abnormal Negative [facility] POC NITRITE, URINE Negative Normal Negative [facility] POC PH, URINE 7.0 Normal 5.0-7.0 [facility] POC PROTEIN, URINE Negative Normal Negative [facility] POC SPECIFIC GRAVITY 1.015 Normal 1.005-1.025 [facility] POC UROBILINOGEN 0.2 mg/dL Normal < 2.0 [facility] POC VBG (EPOC) WITH FULL CORMIER DARBY Klein 12-03-2024 BASE EXCESS, VENOUS 2.2 High -2.0-2.0 [facility] Comment on above: Order Comment: [facility] has implemented the eGFR calculation approach that does not have a coefficient for race that conforms to the NKF-ASN Task Force Recommendations.Specimens collected in a lithium heparin tube may show erroneous pO2, pCO2 and related calculations due to aerobic handling. If the most accurate venous blood gas results are needed, use a heparinized blood gas syringe. CALCIUM IONIZED 5.1 mg/dL Normal 4.5-5.3 [facility] Comment on above: Order Comment: [facility] has implemented the eGFR calculation approach that does not have a coefficient for race that conforms to the NKF-ASN Task Force Recommendations.Specimens collected in a lithium heparin tube may show erroneous pO2, pCO2 and related calculations due to aerobic handling. If the most accurate venous blood gas results are needed, use a heparinized blood gas syringe. Chloride [Moles/Vol] 98 mmol/L Normal 98-108 [facility] Comment on above: Order Comment: [facility] has implemented the eGFR calculation approach that does not have a coefficient for race that conforms to the NKF-ASN Task Force Recommendations.Specimens collected in a lithium heparin tube may show erroneous pO2, pCO2 and related calculations due to aerobic handling. If the most accurate venous blood gas results are needed, use a heparinized blood gas syringe. Creatinine [Mass/Vol] 0.53 mg/dL Low 0.60-1.20 [facility] Comment on above: Order Comment: [facility] has implemented the eGFR calculation approach that does not have a coefficient for race that conforms to the NKF-ASN Task Force Recommendations.Specimens collected in a lithium heparin tube may show erroneous pO2, pCO2 and related calculations due to aerobic handling. If the most accurate venous blood gas results are needed, use a heparinized blood gas syringe. Glucose [Mass/Vol] 117 mg/dL High 65-99 [facility] Comment on above: Order Comment: [facility] has implemented the eGFR calculation approach that does not have a coefficient for race that conforms to the NKF-ASN Task Force Recommendations.Specimens collected in a lithium heparin tube may show erroneous pO2, pCO2 and related calculations due to aerobic handling. If the most accurate venous blood gas results are needed, use a heparinized blood gas syringe. HCO3 (Bld) [Moles/Vol] 25.6 mmol/L Normal 24.0-28.0 [facility] Comment on above: Order Comment: [facility] has implemented the eGFR calculation approach that does not have a coefficient for race that conforms to the NKF-ASN Task Force Recommendations.Specimens collected in a lithium heparin tube may show erroneous pO2, pCO2 and related calculations due to aerobic handling. If the most accurate venous blood gas results are needed, use a heparinized blood gas syringe. Hematocrit (Bld) [Volume fraction] 44 % Normal 36-46 [facility] Comment on above: Order Comment: [facility] has implemented the eGFR calculation approach that does not have a coefficient for race that conforms to the NKF-ASN Task Force Recommendations.Specimens collected in a lithium heparin tube may show erroneous pO2, pCO2 and related calculations due to aerobic handling. If the most accurate venous blood gas results are needed, use a heparinized blood gas syringe. HEMOGLOBIN, CALCULATED 15.0 g/dL Normal 12.0-16.0 [facility] Comment on above: Order Comment: [facility] has implemented the eGFR calculation approach that does not have a coefficient for race that conforms to the NKF-ASN Task Force Recommendations.Specimens collected in a lithium heparin tube may show erroneous pO2, pCO2 and related calculations due to aerobic handling. If the most accurate venous blood gas results are needed, use a heparinized blood gas syringe. Oxygen saturation in Blood 84.6 % High 40.0-70.0 [facility] Comment on above: Order Comment: [facility] has implemented the eGFR calculation approach that does not have a coefficient for race that conforms to the NKF-ASN Task Force Recommendations.Specimens collected in a lithium heparin tube may show erroneous pO2, pCO2 and related calculations due to aerobic handling. If the most accurate venous blood gas results are needed, use a heparinized blood gas syringe. PCO2 VENOUS 35.3 mm Hg Low 41.0-51.0 [facility] Comment on above: Order Comment: [facility] has implemented the eGFR calculation approach that does not have a coefficient for race that conforms to the NKF-ASN Task Force Recommendations.Specimens collected in a lithium heparin tube may show erroneous pO2, pCO2 and related calculations due to aerobic handling. If the most accurate venous blood gas results are needed, use a heparinized blood gas syringe. PH VENOUS 7.47 High 7.32-7.42 [facility] Comment on above: Order Comment: [facility] has implemented the eGFR calculation approach that does not have a coefficient for race that conforms to the NKF-ASN Task Force Recommendations.Specimens collected in a lithium heparin tube may show erroneous pO2, pCO2 and related calculations due to aerobic handling. If the most accurate venous blood gas results are needed, use a heparinized blood gas syringe. PO2 VENOUS 46 mm Hg High 25-40 [facility] Comment on above: Order Comment: [facility] has implemented the eGFR calculation approach that does not have a coefficient for race that conforms to the NKF-ASN Task Force Recommendations.Specimens collected in a lithium heparin tube may show erroneous pO2, pCO2 and related calculations due to aerobic handling. If the most accurate venous blood gas results are needed, use a heparinized blood gas syringe. POC GFR 96 mL/min/1.73 m2 Normal >=60 [facility] Comment on above: Order Comment: [facility] has implemented the eGFR calculation approach that does not have a coefficient for race that conforms to the NKF-ASN Task Force Recommendations.Specimens collected in a lithium heparin tube may show erroneous pO2, pCO2 and related calculations due to aerobic handling. If the most accurate venous blood gas results are needed, use a heparinized blood gas syringe. Result Comment: Cassi mated GFR was calculated using the 2020 CKD-EPI creatinine equation. POC LACTATE 1.4 mmol/L Normal 0.6-2.0 [facility] Comment on above: Order Comment: [facility] has implemented the eGFR calculation approach that does not have a coefficient for race that conforms to the NKF-ASN Task Force Recommendations.Specimens collected in a lithium heparin tube may show erroneous pO2, pCO2 and related calculations due to aerobic handling. If the most accurate venous blood gas results are needed, use a heparinized blood gas syringe. Potassium [Moles/Vol] 4.0 mmol/L Normal 3.5-5.1 [facility] Comment on above: Order Comment: [facility] has implemented the eGFR calculation approach that does not have a coefficient for race that conforms to the NKF-ASN Task Force Recommendations.Specimens collected in a lithium heparin tube may show erroneous pO2, pCO2 and related calculations due to aerobic handling. If the most accurate venous blood gas results are needed, use a heparinized blood gas syringe. Sodium [Moles/Vol] 137 mmol/L Normal 135-145 [facility] Comment on above: Order Comment: [facility] has implemented the eGFR calculation approach that does not have a coefficient for race that conforms to the NKF-ASN Task Force Recommendations.Specimens collected in a lithium heparin tube may show erroneous pO2, pCO2 and related calculations due to aerobic handling. If the most accurate venous blood gas results are needed, use a heparinized blood gas syringe. Urea nitrogen [Mass/Vol] 12 mg/dL Normal 8-25 [facility] Comment on above: Order Comment: [facility] has implemented the eGFR calculation approach that does not have a coefficient for race that conforms to the NKF-ASN Task Force Recommendations.Specimens collected in a lithium heparin tube may show erroneous pO2, pCO2 and related calculations due to aerobic handling. If the most accurate venous blood gas results are needed, use a heparinized blood gas syringe. XR CHEST PA/APon 12-03-2024 XR CHEST PA/AP EXAMINATION: XR CHEST PA/AP HISTORY: ORDERING SYSTEM PROVIDED HISTORY: sob, TECHNOLOGIST PROVIDED HISTORY: Injury/Trauma Reason for exam: Patient reports feeling fatigued and weak. Cancer History: u Surgery, RadiationHistory: u Encounter Type: Initial Mechanism of injury: fell 1 week ago ORDERING SYSTEM PROVIDED DIAGNOSIS CODES: COMPARISON: 10/13/2024 FINDINGS: One-view chest x-ray. No pneumothorax, pleural effusion or focal airspace consolidation. Heart is normal in size. Thoracic aorta is fairly ectatic/tortuous, stable. IMPRESSION: No acute cardiopulmonary process. Stable chest x-ray. Workstation ID: [id number] Dictated by: JUAN CARLOS GRAJEDA on Sat Dec 03, 2024 6:31:47 PM EDT Transcribed by: JUAN CARLOS GRAJEDA on Sat Dec 03, 2024 6:31:47 PM EDT Finalized by: JUAN CARLOS GRAJEDA on Sat Dec 03, 2024 6:31:47 PM EDT Normal [facility] Comment on above: Order Comment: Injur y/Trauma or Illness?:Injury/Trauma How long have you had these symptoms (acute/chronic)?:Acute Reason for exam?:Patient reports feeling fatigued and weak. Type of Exam?:Initial Mechanism of injury?:fell 1 week ago XR HIPS BILATERAL WITH PELVI S 3-4 VIEWSon 12-03-2024 XR HIPS BILATERAL WITH PELVIS 3-4 VIEWS EXAMINATION: XR HIPS BILATERAL WITH PELVIS 3-4 VIEWS CLINICAL STATEMENT: injury COMPARISON: Hip study from 05/21/2024 TECHNIQUE: AP view of the pelvis, AP and frogleg views of the bilateral hips are provided for interpretation. FINDINGS: No definite femoral fracture is detected in the right proximal femur, however there is foreshortening of the femoral neck when compared with the prior study. This could be positional but a fracture of the femoral neck cannot be excluded. If clinically appropriate, this could be better evaluated by CT. No other potential osseous lesion, fracture or subluxation is detected. There is a left total hip arthroplasty. The orthopedic device appears intact and well aligned. The SI joints are intact. The soft tissues appear unremarkable. IMPRESSION: There is foreshortening of the right femoral neck. This could be positional, but a fracture cannot be excluded on the current study. If clinically appropriate, this should be better evaluated by noncontrast CT of the pelvis to assess the proximal femur, particularly the femoral neck. Intact left total hip arthroplasty Workstation ID: [id number] Dictated by: JAKE CLAYTON on Sat Dec 03, 2024 7:19:22 PM EDT Transcribed by: JAKE CLAYTON on Sat Dec 03, 2024 7:19:22 PM EDT Finalized by: JKAE CLAYTON on Sat Dec 03, 2024 7:19:22 PM EDT [facility] Comment on above: Order Comment: Injur y/Trauma or Illness?:Injury/Trauma How long have you had these symptoms (acute/chronic)?:Acute Reason for exam?:Patient reports feeling fatigued and weak. Type of Exam?:Initial Mechanism of injury?:fell [address] ABDOMEN PELVIS WITH IV CO NTRAST ONLYon 11-16-2024 CT ABDOMEN PELVIS WITH IV CONTRAST ONLY EXAM: CT ABDOMEN PELVIS WITH IV CONTRAST ONLY DATE: 11/16/2024 4:30 pm TECHNIQUE: Axial CT images were obtained through the abdomen and pelvis following intravenous contrast administration. Multiplanar reformatted images also created. IOPAMIDOL 370 MG IODINE/ML (76 %) INTRAVENOUS SOLUTION - 75 mL, Dose reduction techniques were achieved by using automated exposure control and/or adjustment of mA and/or kV according to patient size and/or use of iterative reconstruction technique. HISTORY: ORDERING SYSTEM PROVIDED HISTORY: Abdominal pain, TECHNOLOGIST PROVIDED HISTORY: Illness/Other Reason for exam: pain Encounter Type: Initial Additional signs and symptoms: Abdominal pain ORDERING SYSTEM PROVIDED DIAGNOSIS CODES: COMPARISON: 10/24/2024 FINDINGS: Lower chest: The lower lungs are clear. Liver: The liver is homogeneous with normal contours and normal size. Gallbladder: The gallbladder is unremarkable. There is no intra or extrahepatic biliary dilatation. Pancreas: The pancreas is homogeneous without evidence for mass lesion or inflammation. Spleen: The spleen is unremarkable without evidence for mass lesion. Adrenals: The adrenal glands are unremarkable Kidneys and bladder: Few small benign cortical renal cysts are seen bilaterally.The ureters demonstrate normal caliber.The urinary bladder is unremarkable. GI tract: Rugal fold thickening of the stomach.Visualized small bowel is unremarkable without evidence for obstruction or active inflammation. This appendix has been surgically removed. Wall thickening of the transverse colon through the rectum. Scattered diverticula of the distal colon. Reproductive: The uterus has been removed. Lymph nodes: No retroperitoneal or abdominal lymphadenopathy. Vascular: The aorta demonstrates normal caliber without aneurysm or dissection.The major aorta branch vessels are patent. Peritoneum: No free intraperitoneal air or fluid. No acute inflammation. Abdominal wall and Skeletal: Prior left hip arthroplasty without gross complication. Stable mild to severe compression fractures of the lower thoracic and lumbar spine. ___ IMPRESSION: Rugal fold thickening of the stomach suggesting gastritis. Wall thickening of the transverse colon through the rectum suggesting inflammatory or infectious colitis. Workstation ID: [id number] Dictated by: CHARLES CABALLERO on ThuNov 16, 2024 4:58:14 PM EDT Transcribed by: CHARLES CABALLERO on ThuNov 16, 2024 4:58:14 PM EDT Finalized by: CHARLES CABALLERO on ThuNov 16, 2024 4:58:14 PM EDT [facility] Comment on above: Order Comment: Injur y/Trauma or Illness?:Illness/OtherHow long have you had these symptoms (acute/chronic)?:AcuteReason for exam?:painType of Exam?:InitialAdditional signs and symptoms?:Abdominal pain ED Prov Noteon 11-16-2024 ED Prov Note ED PROVIDER NOTE [facility] EMERGENCY [facility] NAME: Elizabeth Cisneros AGE: 74 y.o. : 1950 VISIT DATE: 11/16/2024 CSN: [id number] PCP: Sj Motley MD Chief Complaint Patient presents with Abdominal Pain Patient is a 74-year-old female with a past medical history of anxiety, pancreatitis, arrhythmia, ASVD, carpal tunnel syndrome, cervical cancer, COPD, coronary artery disease, diabetes, hyperlipidemia, hypertension, mitral value prolapse and squamous cell skin cancer who presents today for concern abdominal pain. Patient states she recently seen in the emergency department diagnosed with low potassium low sodium and pancreatitis and was admitted to the hospital. Patient states over the last 10 days she has had right upper quadrant and epigastric abdominal pain which is worsened over the last 3 days with associated multiple episodes of nonbilious nonbloody vomiting with generalized nausea and a few episodes of nonbloody diarrhea. Patient admits to 5 out of 10 abdominal pain and is requesting pain medication. Patient has additional abdominal pain, urinary symptoms, flank pain, chest pain, shortness of breath, back pain, lightheadedness, dizziness or syncope. 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 Watters SINUS SURGERY 12/30/2019 balloon sinuplasty - Dr. Key SKIN BIOPSY TONSILLECTOMY TRIGGER FINGER RELEASE Right 03/24/2018 RELEASE A1 TOD LEFT MIDDLE,RING, AND SMALL FINGERS WITH CORTISONE INJECTION RIGHT MIDDLE FINGER A1 TOD; Surgeon: Yonas Nguyen MD TUBAL LIGATION Family History Problem Relation Age of Onset Hypertension Father Asthma Father COPD Father Diabetes Father Hearing loss Father Heart disease Father Hyperlipidemia Father Osteoporosis Mother Hypertension Mother Arthritis Mother Cancer Mother Heart disease Mother Heart disease Maternal Grandfather Heart disease Sister Hypertension Sister Cancer Brother Asthma Brother Diabetes Brother Anesthesia problems Neg Hx Hip fracture Neg Hx Social History [1] Previous Medications Medication Sig acetaminophen (TYLENOL) 500 MG tablet Take 1 (one) tablet (500 mg total) by mouth every 6 (six) hours as needed for pain THREE TIMES DAILY . albuterol (PROVENTIL) 2.5 mg /3 mL (0.083 %) nebulizer solution Take 3 mL (2.5 mg total) by nebulization every 6 (six) hours as needed for wheezing . albuterol (PROVENTIL) 2.5 mg /3 mL (0.083 %) nebulizer solution Take 3 mL (2.5 mg total) by nebulization every 6 (six) hours as needed for wheezing . albuterol 90 mcg/actuation inhaler Inhale 1 (one) puff to 2 (two) puffs every 4 to 6 hours as needed . atenoloL (TENORMIN) 50 MG tablet Take 1 (one) tablet (50 mg total) by mouth 2 (two) times a day . [place] Saline Gel Apply topically 2 (two) times a day Apply a pea sized amount to both nostrils at bedtime and in a.m. You can use it more often.. Bevespi Aerosphere 9-4.8 mcg HFAA Inhale 2 puffs 2 (two) times a day . budesonide (PULMICORT) 0.5 mg/2 mL nebulizer solution Take 2 mL (0.5 mg total) by nebulization 2 (two) times a day . CALCITRATE 200 mg (950 mg) tablet Take 200 mg by mouth 3 (three) times a day . desvenlafaxine succinate (PRISTIQ) 100 MG 24 hr tablet Take 1 (one) tablet (100 mg total) by mouth daily . diclofenac sodium 1% (VOLTAREN) 1 % Gel Apply topically 4 (four) times a day as needed for pain . ferrous sulfate 325 (65 FE) MG tablet Take 1 (one) tablet (325 mg total) by mouth daily with b (more content not included)... Normal [facility] LIPASEon 11-16-2024 Lipase [Catalytic activity/Vol] 43 U/L Normal 15-65 [facility] Comment on above: Performed By: #### [id number] #### LAB [address] [facility] [place], [place] [address] Jean Gary M.D. [id number] POC BASIC METABOLIC PANEL [facility] 11-16-2024 Chloride [Moles/Vol] 97 mmol/L Low 98-108 [facility] Comment on above: Order Comment: [facility] has implemented the eGFR calculation approach that does not have a coefficient for race that conforms to the NKF-ASN Task Force Recommendations. CO2 [Moles/Vol] 36 mmol/L High 21-32 [facility] Comment on above: Order Comment: [facility] has implemented the eGFR calculation approach that does not have a coefficient for race that conforms to the NKF-ASN Task Force Recommendations. Creatinine [Mass/Vol] 0.62 mg/dL Normal 0.60-1.20 [facility] Comment on above: Order Comment: [facility] has implemented the eGFR calculation approach that does not have a coefficient for race that conforms to the NKF-ASN Task Force Recommendations. Glucose [Mass/Vol] 121 mg/dL High 65-99 [facility] Comment on above: Order Comment: [facility] has implemented the eGFR calculation approach that does not have a coefficient for race that conforms to the NKF-ASN Task Force Recommendations. POC GFR 92 mL/min/1.73 m2 Normal >=60 [facility] Comment on above: Order Comment: [facility] has implemented the eGFR calculation approach that does not have a coefficient for race that conforms to the NKF-ASN Task Force Recommendations. Result Comment: Cassi mated GFR was calculated using the 2020 CKD-EPI creatinine equation. POC IONIZED CALCIUM 5.2 mg/dL Normal 4.5-5.3 [facility] Comment on above: Order Comment: [facility] has implemented the eGFR calculation approach that does not have a coefficient for race that conforms to the NKF-ASN Task Force Recommendations. Potassium [Moles/Vol] 4.4 mmol/L Normal 3.5-5.1 [facility] Comment on above: Order Comment: [facility] has implemented the eGFR calculation approach that does not have a coefficient for race that conforms to the NKF-ASN Task Force Recommendations. Sodium [Moles/Vol] 134 mmol/L Low 135-145 [facility] Comment on above: Order Comment: [facility] has implemented the eGFR calculation approach that does not have a coefficient for race that conforms to the NKF-ASN Task Force Recommendations. Urea nitrogen [Mass/Vol] 12 mg/dL Normal 8-25 [facility] Comment on above: Order Comment: [facility] has implemented the eGFR calculation approach that does not have a coefficient for race that conforms to the NKF-ASN Task Force Recommendations. POC CBC AND DIFFERENTIALon 0 11-16-2024 BASOPHILS ABSOLUTE COUNT 0.03 K/mcL Normal 0.00-0.30 [facility] Basophils/100 WBC (Bld) 0.7 % Normal [facility] Eosinophils (Bld) [#/Vol] 0.03 10*3/uL Normal 0.00-0.50 [facility] Eosinophils/100 WBC (Bld) 0.7 % Normal [facility] Erythrocyte distribution width (RBC) [Ratio] 13.6 % Normal 11.6-14.8 [facility] Hematocrit (Bld) [Volume fraction] 38.3 % Normal 36.0-46.0 [facility] Hemoglobin (Bld) [Mass/Vol] 12.7 g/dL Normal 12.0-16.0 [facility] IG ABSOLUTE 0.00 K/mcL Normal 0.00-0.30 [facility] IG PERCENT 0.00 % Normal [facility] Comment on above: Result Comment: The IG parameter is the percentage of metamyelocytes, myelocytes and promyelocytes. An immature granulocyte count (IG) of 1% or more suggests the possibility of infection, an IG count of 3% is very likely related to an infection. Lymphocytes (Bld) [#/Vol] 1.06 10*3/uL Normal 0.90-4.00 [facility] Lymphocytes/100 WBC (Bld) 23.8 % Normal [facility] MCH (RBC) [Entitic mass] 32.6 pg Normal 26.0-34.0 [facility] MCV (RBC) [Entitic vol] 98.2 fL Normal 80.0-100.0 [facility] MEAN CORPUSCULAR HEMOGLOBIN CONC 33.2 g/dL Normal 31.0-37.0 [facility] Monocytes (Bld) [#/Vol] 0.60 10*3/uL Normal 0.30-0.90 [facility] Monocytes/100 WBC (Bld) 13.5 % Normal [facility] NEUTROPHILS ABSOLUTE COUNT 2.74 K/mcL Normal 1.70-7.00 [facility] Neutrophils/100 WBC (Bld) 61.3 % Normal [facility] Platelet mean volume (Bld) [Entitic vol] 9.5 fL Normal 9.4-12.4 [facility] Platelets (Bld) [#/Vol] 336 10*3/uL Normal 150-400 [facility] RBC (Bld) [#/Vol] 3.90 10*6/uL Low 4.00-5.20 [facility] WBC (Bld) [#/Vol] 4.46 10*3/uL Low 4.50-11.00 [facility] POC LIVER PANEL PLUS Ernie 11-16-2024 Albumin [Mass/Vol] 3.5 g/dL Normal 3.2-5.2 [facility] ALP [Catalytic activity/Vol] 77 U/L Normal 40-150 [facility] ALT [Catalytic activity/Vol] 21 U/L Normal 0-40 [facility] Amylase [Catalytic activity/Vol] 46 U/L Normal 25-115 [facility] Amylase [Catalytic activity/Vol] 62 U/L High 7-33 [facility] AST [Catalytic activity/Vol] 29 U/L Normal 0-45 [facility] Bilirubin [Mass/Vol] 0.6 mg/dL Normal 0.0-1.3 [facility] Protein [Mass/Vol] 6.8 g/dL Normal 6.0-8.0 [facility] ECHOCARDIOGRAM COMPLETEon ECHOCARDIOGRAM COMPLETE Normal [facility] ECG 12 Leadon 10-31-2024 Sinus Rhythm WITHIN NORMAL LIMITS [facility] ECG 12-LEADon 10-31-2024 ECG 12-LEAD Sinus Rhythm WITHIN NORMAL LIMITS Normal [facility] BASIC METABOLIC PANELon 10-15 Anion gap [Moles/Vol] 14 mmol/L Normal 10-20 [facility] Comment on above: Order Comment: [facility] has implemented the eGFR calculation approach that does not have a coefficient for race that conforms to the NKF-ASN Task Force Recommendations. Performed By: #### [id number] #### LAB [address] [place] [address] Jean Gary M.D. [id number] Calcium [Mass/Vol] 8.3 mg/dL Low 8.4-10.2 [facility] Comment on above: Order Comment: [facility] has implemented the eGFR calculation approach that does not have a coefficient for race that conforms to the NKF-ASN Task Force Recommendations. Performed By: #### [id number] #### LAB [address] [place] [address] Jean Gary M.D. [id number] Chloride [Moles/Vol] 100 mmol/L Normal 98-108 [facility] Comment on above: Order Comment: [facility] has implemented the eGFR calculation approach that does not have a coefficient for race that conforms to the NKF-ASN Task Force Recommendations. Performed By: #### [id number] #### LAB [address] [place] [address] Jean Gary M.D. [id number] Creatinine [Mass/Vol] 0.72 mg/dL Normal 0.60-1.10 [facility] Comment on above: Order Comment: [facility] has implemented the eGFR calculation approach that does not have a coefficient for race that conforms to the NKF-ASN Task Force Recommendations. Performed By: #### [id number] #### LAB [address] [place] [address] Jean Gary M.D. [id number] EGFR 87 mL/min/1.73 m2 Normal >=60 [facility] Comment on above: Order Comment: [facility] has implemented the eGFR calculation approach that does not have a coefficient for race that conforms to the NKF-ASN Task Force Recommendations. Result Comment: Cassi mated GFR was calculated using the 2020 CKD-EPI creatinine equation. Performed By: #### [id number] #### LAB [address] [place] [address] Jean Gary M.D. [id number] Glucose [Mass/Vol] 140 mg/dL High 65-99 [facility] Comment on above: Order Comment: [facility] has implemented the eGFR calculation approach that does not have a coefficient for race that conforms to the NKF-ASN Task Force Recommendations. Performed By: #### [id number] #### LAB [address] [place] [address] Jean Gary M.D. [id number] HCO3 (Bld) [Moles/Vol] 22 mmol/L Normal 21-32 [facility] Comment on above: Order Comment: [facility] has implemented the eGFR calculation approach that does not have a coefficient for race that conforms to the NKF-ASN Task Force Recommendations. Performed By: #### [id number] #### LAB [address] [place] [address] Jean Gary M.D. [id number] Potassium [Moles/Vol] 3.4 mmol/L Low 3.5-5.1 [facility] Comment on above: Order Comment: [facility] has implemented the eGFR calculation approach that does not have a coefficient for race that conforms to the NKF-ASN Task Force Recommendations. Performed By: #### [id number] #### LAB [address] [place] [address] Jean Gary M.D. [id number] Sodium [Moles/Vol] 133 mmol/L Low 135-145 [facility] Comment on above: Order Comment: [facility] has implemented the eGFR calculation approach that does not have a coefficient for race that conforms to the NKF-ASN Task Force Recommendations. Performed By: #### [id number] #### LAB [address] [place], [place] [address] Jean Gary M.D. [id number] Urea nitrogen [Mass/Vol] 11 mg/dL Normal 8-25 [facility] Comment on above: Order Comment: [facility] has implemented the eGFR calculation approach that does not have a coefficient for race that conforms to the NKF-ASN Task Force Recommendations. Performed By: #### [id number] #### LAB [address] [place], [place] [address] Jean Gary M.D. [id number] Urea nitrogen/Creatinine [Mass ratio] 15.3 mg/mg Normal 10.0-20.0 [facility] Comment on above: Order Comment: [facility] has implemented the eGFR calculation approach that does not have a coefficient for race that conforms to the NKF-ASN Task Force Recommendations. Performed By: #### [id number] #### LAB [address] [place], [place] [address] Jean Gary M.D. [id number] Basic metabolic 2000 panelon 10-27-2024 Anion gap [Moles/Vol] 14 mmol/L 10 - 20 mmol/L [facility] Calcium [Mass/Vol] 8.3 mg/dL Low 8.4 - 10. 2 mg/dL [facility] Chloride [Moles/Vol] 100 mmol/L 98 - 10 8 mmol/L [facility] Creatinine [Mass/Vol] 0.72 mg/dL 0.60 - 1.10 mg/dL [facility] GFR/1.73 sq M.predicted CKD-EPI (S/P/Bld) [Vol rate/Area] 87 - PINF [facility] Comment on above: Estimated GFR was ca lculated using the 2020 CKD-EPI creatinine equation. Glucose [Mass/Vol] 140 mg/dL High 65 - 99 mg/dL [facility] HCO3 [Moles/Vol] 22 mmol/L 21 - 32 mmol/L [facility] Interpretation and review of laboratory results Abnormal [facility] Potassium [Moles/Vol] 3.4 mmol/L Low 3.5 - 5.1 mmol/L [facility] Sodium [Moles/Vol] 133 mmol/L Low 135 - 145 mmol/L [facility] Urea nitrogen [Mass/Vol] 11 mg/dL 8 - 25 mg/dL [facility] Urea nitrogen/Creatinine [Mass ratio] 15.3 mg/mg 10.0 - 20.0 [facility] has implemented the eGFR calculation approach that does not have a coefficient for race that conforms to the NKF-ASN Task Force Recommendations. [facility] Disch Summon 10-27-2024 Disch Summ Normal [facility] BASIC METABOLIC PANELon 10-15 Anion gap [Moles/Vol] 14 mmol/L Normal 10-20 [facility] Comment on above: Order Comment: [facility] has implemented the eGFR calculation approach that does not have a coefficient for race that conforms to the NKF-ASN Task Force Recommendations. Performed By: #### [id number] #### LAB [address] [place], [place] [address] Jean Gary M.D. [id number] Calcium [Mass/Vol] 7.9 mg/dL Low 8.4-10.2 [facility] Comment on above: Order Comment: [facility] has implemented the eGFR calculation approach that does not have a coefficient for race that conforms to the NKF-ASN Task Force Recommendations. Performed By: #### [id number] #### LAB [address] [place], [place] [address] Jean Gary M.D. [id number] Chloride [Moles/Vol] 97 mmol/L Low 98-108 [facility] Comment on above: Order Comment: [facility] has implemented the eGFR calculation approach that does not have a coefficient for race that conforms to the NKF-ASN Task Force Recommendations. Performed By: #### [id number] #### LAB [address] [place] [address] Jean Gary M.D. [id number] Creatinine [Mass/Vol] 0.60 mg/dL Normal 0.60-1.10 [facility] Comment on above: Order Comment: [facility] has implemented the eGFR calculation approach that does not have a coefficient for race that conforms to the NKF-ASN Task Force Recommendations. Performed By: #### [id number] #### LAB [address] [place] [address] Jean Gary M.D. [id number] EGFR 93 mL/min/1.73 m2 Normal >=60 [facility] Comment on above: Order Comment: [facility] has implemented the eGFR calculation approach that does not have a coefficient for race that conforms to the NKF-ASN Task Force Recommendations. Result Comment: Cassi mated GFR was calculated using the 2020 CKD-EPI creatinine equation. Performed By: #### [id number] #### LAB [address] [place] [address] Jean Gary M.D. [id number] Glucose [Mass/Vol] 130 mg/dL High 65-99 [facility] Comment on above: Order Comment: [facility] has implemented the eGFR calculation approach that does not have a coefficient for race that conforms to the NKF-ASN Task Force Recommendations. Performed By: #### [id number] #### LAB [address] [place] [address] Jean Gary M.D. [id number] HCO3 (Bld) [Moles/Vol] 22 mmol/L Normal 21-32 [facility] Comment on above: Order Comment: [facility] has implemented the eGFR calculation approach that does not have a coefficient for race that conforms to the NKF-ASN Task Force Recommendations. Performed By: #### 4 [id number] #### LAB [address] [address] Jean Gary M.D. [id number] Potassium [Moles/Vol] 3.5 mmol/L Normal 3.5-5.1 [facility] Comment on above: Order Comment: [facility] has implemented the eGFR calculation approach that does not have a coefficient for race that conforms to the NKF-ASN Task Force Recommendations. Performed By: #### 4 [id number] #### LAB [address] [address] Jean Gary M.D. [id number] Sodium [Moles/Vol] 129 mmol/L Low 135-145 [facility] Comment on above: Order Comment: [facility] has implemented the eGFR calculation approach that does not have a coefficient for race that conforms to the NKF-ASN Task Force Recommendations. Performed By: #### 4 [id number] #### LAB [address] [place], [place] [address] Jean Gary M.D. [id number] Urea nitrogen [Mass/Vol] 13 mg/dL Normal 8-25 [facility] Comment on above: Order Comment: [facility] has implemented the eGFR calculation approach that does not have a coefficient for race that conforms to the NKF-ASN Task Force Recommendations. Performed By: #### 4 6124 #### LAB [address] [place], [place] [address] Jean Gary M.D. [id number] Urea nitrogen/Creatinine [Mass ratio] 21.7 mg/mg High 10.0-20.0 [facility] Comment on above: Order Comment: [facility] has implemented the eGFR calculation approach that does not have a coefficient for race that conforms to the NKF-ASN Task Force Recommendations. Performed By: #### 4 [id number] #### LAB [address] [place], [place] [address] Jean Gary M.D. [id number] Basic metabolic 2000 panelon 10-26-2024 Anion gap [Moles/Vol] 14 mmol/L 10 - 20 mmol/L [facility] Calcium [Mass/Vol] 7.9 mg/dL Low 8.4 - 10. 2 mg/dL [facility] Chloride [Moles/Vol] 97 mmol/L Low 98 - 10 8 mmol/L [facility] Creatinine [Mass/Vol] 0.6 mg/dL 0.60 - 1.10 mg/dL [facility] GFR/1.73 sq M.predicted CKD-EPI (S/P/Bld) [Vol rate/Area] 93 - PINF [facility] Comment on above: Estimated GFR was ca lculated using the 2020 CKD-EPI creatinine equation. Glucose [Mass/Vol] 130 mg/dL High 65 - 99 mg/dL [facility] HCO3 [Moles/Vol] 22 mmol/L 21 - 32 mmol/L [facility] Interpretation and review of laboratory results Abnormal [facility] Potassium [Moles/Vol] 3.5 mmol/L 3.5 - 5.1 mmol/L [facility] Sodium [Moles/Vol] 129 mmol/L Low 135 - 145 mmol/L [facility] Urea nitrogen [Mass/Vol] 13 mg/dL 8 - 25 mg/dL [facility] Urea nitrogen/Creatinine [Mass ratio] 21.7 mg/mg High 10.0 - 20.0 [facility] has implemented the eGFR calculation approach that does not have a coefficient for race that conforms to the NKF-ASN Task Force Recommendations. [facility] SODIUMon 10-26-2024 Sodium [Moles/Vol] 128 mmol/L Low 135-145 [facility] Comment on above: Performed By: #### 4 6501 ####[facility] [address] [address] Jean Gary M.D. [id number] SODIUM, URINE, RANDOMon 10-15 Sodium (U) [Moles/Vol] 71 mmol/L Normal [facility] Comment on above: Order Comment: No es tablished reference range. Performed By: #### 4 [id number] ####[facility] [address] [address] Jean Gary M.D. [id number] Sodiumon 10-26-2024 Sodium [Moles/Vol] 128 mmol/L Low 135 - 145 mmol/L [facility] Sodium (U) [Moles/Vol]on No established reference range. [facility] Sodium [Moles/Vol]on 025 Interpretation and review of laboratory results Abnormal [facility] Sodium, Urine, Randomon 10-15 Sodium (U) [Moles/Vol] 71 mmol/L [facility] BASIC METABOLIC PANELon 10-15 Anion gap [Moles/Vol] 16 mmol/L Normal -20 [facility] Comment on above: Order Comment: [facility] has implemented the eGFR calculation approach that does not have a coefficient for race that conforms to the NKF-ASN Task Force Recommendations. Performed By: #### 4 [id number] #### LAB [address] [place], [place] [address] Jean Gary M.D. [id number] Calcium [Mass/Vol] 8.1 mg/dL Low 8.4-10.2 [facility] Comment on above: Order Comment: [facility] has implemented the eGFR calculation approach that does not have a coefficient for race that conforms to the NKF-ASN Task Force Recommendations. Performed By: #### 4 6124 #### LAB [address] [address] Jean Gary M.D. [id number] Chloride [Moles/Vol] 91 mmol/L Low 98-108 [facility] Comment on above: Order Comment: [facility] has implemented the eGFR calculation approach that does not have a coefficient for race that conforms to the NKF-ASN Task Force Recommendations. Performed By: #### 4 6124 #### LAB [address] [address] Jean Gary M.D. [id number] Creatinine [Mass/Vol] 1.02 mg/dL Normal 0.60-1.10 [facility] Comment on above: Order Comment: [facility] has implemented the eGFR calculation approach that does not have a coefficient for race that conforms to the NKF-ASN Task Force Recommendations. Performed By: #### 4 6124 #### LAB [address] [address] Jean Gary M.D. [id number] EGFR 57 mL/min/1.73 m2 Low >=60 [facility] Comment on above: Order Comment: [facility] has implemented the eGFR calculation approach that does not have a coefficient for race that conforms to the NKF-ASN Task Force Recommendations. Result Comment: Cassi mated GFR was calculated using the 2020 CKD-EPI creatinine equation. Performed By: #### 4 6124 #### LAB [address] [address] Jean Gary M.D. [id number] Glucose [Mass/Vol] 96 mg/dL Normal 65-99 [facility] Comment on above: Order Comment: [facility] has implemented the eGFR calculation approach that does not have a coefficient for race that conforms to the NKF-ASN Task Force Recommendations. Performed By: #### 4 6124 #### LAB [address] [address] Jean Gary M.D. [id number] HCO3 (Bld) [Moles/Vol] 23 mmol/L Normal 21-32 [facility] Comment on above: Order Comment: [facility] has implemented the eGFR calculation approach that does not have a coefficient for race that conforms to the NKF-ASN Task Force Recommendations. Performed By: #### 4 6124 #### LAB [address] [address] Jean Gary M.D. [id number] Potassium [Moles/Vol] 3.1 mmol/L Low 3.5-5.1 [facility] Comment on above: Order Comment: [facility] has implemented the eGFR calculation approach that does not have a coefficient for race that conforms to the NKF-ASN Task Force Recommendations. Performed By: #### 4 6124 #### LAB [address] [address] Jean Gary M.D. [id number] Sodium [Moles/Vol] 127 mmol/L Low 135-145 [facility] Comment on above: Order Comment: [facility] has implemented the eGFR calculation approach that does not have a coefficient for race that conforms to the NKF-ASN Task Force Recommendations. Performed By: #### 4 6124 #### LAB [address] [address] Jean Gary M.D. [id number] Urea nitrogen [Mass/Vol] 28 mg/dL High 8-25 [facility] Comment on above: Order Comment: [facility] has implemented the eGFR calculation approach that does not have a coefficient for race that conforms to the NKF-ASN Task Force Recommendations. Performed By: #### 4 6197 #### LAB [address] [address] Jean Gary M.D. [id number] Urea nitrogen/Creatinine [Mass ratio] 27.5 mg/mg High 10.0-20.0 [facility] Comment on above: Order Comment: [facility] has implemented the eGFR calculation approach that does not have a coefficient for race that conforms to the NKF-ASN Task Force Recommendations. Performed By: #### 4 6124 ####[facility] [address], [place] [address] Jean Gary M.D. [id number] Basic metabolic 2000 panelon 10-25-2024 Anion gap [Moles/Vol] 16 mmol/L 10 - 20 mmol/L [facility] Calcium [Mass/Vol] 8.1 mg/dL Low 8.4 - 10. 2 mg/dL [facility] Chloride [Moles/Vol] 91 mmol/L Low 98 - 10 8 mmol/L [facility] Creatinine [Mass/Vol] 1.02 mg/dL 0.60 - 1.10 mg/dL [facility] GFR/1.73 sq M.predicted CKD-EPI (S/P/Bld) [Vol rate/Area] 57 Low - PINF [facility] Comment on above: Estimated GFR was ca lculated using the 2020 CKD-EPI creatinine equation. Glucose [Mass/Vol] 96 mg/dL 65 - 99 mg/dL [facility] HCO3 [Moles/Vol] 23 mmol/L 21 - 32 mmol/L [facility] Interpretation and review of laboratory results Abnormal [facility] Potassium [Moles/Vol] 3.1 mmol/L Low 3.5 - 5.1 mmol/L [facility] Sodium [Moles/Vol] 127 mmol/L Low 135 - 145 mmol/L [facility] Urea nitrogen [Mass/Vol] 28 mg/dL High 8 - 25 mg/dL [facility] Urea nitrogen/Creatinine [Mass ratio] 27.5 mg/mg High 10.0 - 20.0 [facility] has implemented the eGFR calculation approach that does not have a coefficient for race that conforms to the NKF-ASN Task Force Recommendations. [facility] Basic metabolic 2000 panelOr dered By: Cheryl Owen on 10-25-2024 Anion gap [Moles/Vol] 19 mmol/L 10 - 20 mmol/L [facility] Calcium [Mass/Vol] 8.7 mg/dL 8.4 - 10. 2 mg/dL [facility] Chloride [Moles/Vol] 87 mmol/L Low 98 - 10 8 mmol/L [facility] Creatinine [Mass/Vol] 1.2 mg/dL 0.60 - 1.10 mg/dL [facility] GFR/1.73 sq M.predicted CKD-EPI (S/P/Bld) [Vol rate/Area] 47 Low - PINF [facility] Comment on above: Estimated GFR was ca lculated using the 2020 CKD-EPI creatinine equation. Glucose [Mass/Vol] 83 mg/dL 65 - 99 mg/dL [facility] HCO3 [Moles/Vol] 22 mmol/L 21 - 32 mmol/L [facility] Interpretation and review of laboratory results Abnormal [facility] Potassium [Moles/Vol] 3.4 mmol/L Low 3.5 - 5.1 mmol/L [facility] Sodium [Moles/Vol] 125 mmol/L Low 135 - 145 mmol/L [facility] Urea nitrogen [Mass/Vol] 30 mg/dL High 8 - 25 mg/dL [facility] Urea nitrogen/Creatinine [Mass ratio] 25 mg/mg High 10.0 - 20.0 [facility] has implemented the eGFR calculation approach that does not have a coefficient for race that conforms to the NKF-ASN Task Force Recommendations. [facility] CBC Auto Differentialon 10-15 Basophils (Bld) [#/Vol] 0.04 10*3/uL [facility] Basophils/100 WBC (Bld) 0.4 % [facility] Eosinophils (Bld) [#/Vol] 0.02 10*3/uL [facility] Eosinophils/100 WBC (Bld) 0.2 % [facility] Erythrocyte distribution width (RBC) [Entitic vol] 13.5 % 11.6 - 14.8 % [facility] Hematocrit (Bld) [Volume fraction] 36.6 % 36.0 - 46.0 % [facility] Hemoglobin (Bld) [Mass/Vol] 12.5 g/dL 12.0 - 16.0 g/dL [facility] Immature granulocytes (Bld) [#/Vol] 0.06 10*3/uL [facility] Immature granulocytes/100 WBC (Bld) 0.6 % [facility] Comment on above: The IG parameter is the percentage of metamyelocytes, myelocytes and promyelocytes. An immature granulocyte count (IG) of 1% or more suggests the possibility of infection, an IG count of 3% is very likely related to an infection. Interpretation and review of laboratory results Abnormal [facility] Lymphocytes (Bld) [#/Vol] 0.95 10*3/uL [facility] Lymphocytes/100 WBC (Bld) 9.4 % [facility] MCH (RBC) [Entitic mass] 32.1 pg 26.0 - 34.0 pg [facility] MCHC (RBC) [Mass/Vol] 34.2 g/dL 31.0 - 37.0 g/dL [facility] MCV (RBC) [Entitic vol] 93.8 fL 80.0 - 100.0 fL [facility] Monocytes (Bld) [#/Vol] 1.51 10*3/uL High [facility] Monocytes/100 WBC (Bld) 14.9 % [facility] Neutrophils (Bld) [#/Vol] 7.58 10*3/uL High [facility] Neutrophils/100 WBC (Bld) 74.5 % [facility] Nucleated RBC (Bld) [#/Vol] 0 10*3/uL [facility] Nucleated RBC/100 WBC (Bld) [Ratio] 0 % [facility] Platelet mean volume (Bld) [Entitic vol] 9.2 fL Low 9.4 - 12.4 fL [facility] Platelets (Bld) [#/Vol] 277 10*3/uL [facility] RBC (Bld) [#/Vol] 3.9 10*6/uL Low [facility] alth WBC (Bld) [#/Vol] 10.16 10*3/uL [facility] CBC WITH AUTO DIFFERENTIALon 10-25-2024 AUTO NRBC 0.0 % Normal [facility] Comment on above: Performed By: #### L [id number] ####[facility] [address] [place], [place] [address] Jean Gary M.D. [id number] AUTO NRBC ABS COUNT 0.00 K/mcL Normal 0.00-0.00 [facility] Comment on above: Performed By: #### L [id number] ####[facility] [address] [place], [place] [address] Jean Gary M.D. [id number] BASOPHILS ABSOLUTE COUNT 0.04 K/mcL Normal 0.00-0.30 [facility] Comment on above: Performed By: #### L [id number] #### LAB [address] [address] Jean Gary M.D. [id number] Basophils/100 WBC (Bld) 0.4 % Normal [facility] Comment on above: Performed By: #### L [id number] #### LAB [address] [address] Jean Gary M.D. [id number] Eosinophils (Bld) [#/Vol] 0.02 10*3/uL Normal 0.00-0.50 [facility] Comment on above: Performed By: #### L [id number] #### LAB [address] [address] Jean Gary M.D. [id number] Eosinophils/100 WBC (Bld) 0.2 % Normal [facility] Comment on above: Performed By: #### L [id number] #### LAB [address] [address] Jean Gary M.D. [id number] Erythrocyte distribution width (RBC) [Ratio] 13.5 % Normal 11.6-14.8 [facility] Comment on above: Performed By: #### L [id number] #### LAB [address] [place] [address] Jean Gary M.D. [id number] Hematocrit (Bld) [Volume fraction] 36.6 % Normal 36.0-46.0 [facility] Comment on above: Performed By: #### L [id number] #### LAB [address] [address] Jean Gary M.D. [id number] Hemoglobin (Bld) [Mass/Vol] 12.5 g/dL Normal 12.0-16.0 [facility] Comment on above: Performed By: #### L [id number] #### LAB [address] [place] [address] Jean Gary M.D. [id number] IG ABSOLUTE 0.06 K/mcL Normal 0.00-0.30 [facility] Comment on above: Performed By: #### L [id number] #### LAB [address] [address] Jean Gary M.D. [id number] IG PERCENT 0.60 % Normal [facility] Comment on above: Result Comment: The IG parameter is the percentage of metamyelocytes, myelocytes and promyelocytes. An immature granulocyte count (IG) of 1% or more suggests the possibility of infection, an IG count of 3% is very likely related to an infection. Performed By: #### L [id number] #### LAB [address] [address] Jean Gary M.D. [id number] Lymphocytes (Bld) [#/Vol] 0.95 10*3/uL Normal 0.90-4.00 [facility] Comment on above: Performed By: #### L [id number] #### LAB [address] [address] Jean Gary M.D. [id number] Lymphocytes/100 WBC (Bld) 9.4 % Normal [facility] Comment on above: Performed By: #### L [id number] #### LAB [address] [address] Jean Gary M.D. [id number] MCH (RBC) [Entitic mass] 32.1 pg Normal 26.0-34.0 [facility] Comment on above: Performed By: #### L [id number] #### LAB [address] [address] Jean Gary M.D. [id number] MCV (RBC) [Entitic vol] 93.8 fL Normal 80.0-100.0 [facility] Comment on above: Performed By: #### L [id number] #### LAB [address] [place] [address] Jean Gary M.D. [id number] MEAN CORPUSCULAR HEMOGLOBIN CONC 34.2 g/dL Normal 31.0-37.0 [facility] Comment on above: Performed By: #### L [id number] #### LAB [address] [address] Jean Gary M.D. [id number] Monocytes (Bld) [#/Vol] 1.51 10*3/uL High 0.30-0.90 [facility] Comment on above: Performed By: #### L [id number] #### LAB [address] [address] Jean Gary M.D. [id number] Monocytes/100 WBC (Bld) 14.9 % Normal [facility] Comment on above: Performed By: #### L [id number] #### LAB [address] [address] Jean Gary M.D. [id number] NEUTROPHILS ABSOLUTE COUNT 7.58 K/mcL High 1.70-7.00 [facility] Comment on above: Performed By: #### L [id number] #### LAB [address] [address] Jean Gary M.D. [id number] Neutrophils/100 WBC (Bld) 74.5 % Normal [facility] Comment on above: Performed By: #### L [id number] #### LAB [address] [place] [address] Jean Gary M.D. [id number] Platelet mean volume (Bld) [Entitic vol] 9.2 fL Low 9.4-12.4 [facility] Comment on above: Performed By: #### L [id number] #### LAB [address] [address] Jean Gary M.D. [id number] Platelets (Bld) [#/Vol] 277 10*3/uL Normal 150-400 [facility] Comment on above: Performed By: #### L [id number] #### LAB [address] [place] [address] Jean Gary M.D. [id number] RBC (Bld) [#/Vol] 3.90 10*6/uL Low 4.00-5.20 [facility] Comment on above: Performed By: #### L [id number] ####[facility] [address] [place], [place] [address] Jean Gary M.D. [id number] WBC (Bld) [#/Vol] 10.16 10*3/uL Normal 4.50-11.00 [facility] Comment on above: Performed By: #### L [id number] ####[facility] [address] [place], [place] [address] Jean Gary M.D. [id number] CONSULTon 10-25-2024 CONSULT Normal [facility] CONSULT Normal [facility] Glucose (Bld) [Mass/Vol]on 0 10-25-2024 Glucose [Mass/Vol] 101 mg/dL High 65 - 99 mg/dL [facility] Interpretation and review of laboratory results Abnormal [facility] H AND Pnacho 10-25-2024 H AND P Normal [facility] HEMOGLOBIN A1Con 10-25-2024 Glucose [Mass/Vol] 126 mg/dL High 74-114 [facility] Comment on above: Performed By: #### 4 [id number] ####[facility] [address] [place], [place] [address] Jean Gary M.D. [id number] HbA1c (Bld) [Mass fraction] 6.0 % High 4.2-5.6 [facility] Comment on above: Performed By: #### 4 8202 ####[facility] [address] [place], [place] [address] Jean Gary M.D. [id number] HEPATIC FUNCTION PANELon Albumin [Mass/Vol] 3.3 g/dL Normal 3.2-5.2 [facility] Comment on above: Performed By: #### 4 5866 ####[facility] [address] [place], [place] [address] Jean Gary M.D. [id number] ALP [Catalytic activity/Vol] 87 U/L Normal 40-150 [facility] Comment on above: Performed By: #### 4 5866 ####[facility] [address] [id number] Jean Gary M.D. [id number] ALT [Catalytic activity/Vol] 18 U/L Normal 0-35 U/L [facility] Comment on above: Performed By: #### 4 5866 #### LAB [address] [address] Jean Gary M.D. [id number] AST [Catalytic activity/Vol] 25 U/L Normal 0-35 U/L [facility] Comment on above: Performed By: #### 4 5866 #### LAB [address] [address] Jean Gary M.D. [id number] Bilirubin [Mass/Vol] 0.7 mg/dL Normal 0.0-1.3 [facility] Comment on above: Performed By: #### 4 5866 #### LAB [address] [address] Jean Gary M.D. [id number] Bilirubin.indirect [Mass/Vol] 0.4 mg/dL Normal 0.0-0.4 [facility] Comment on above: Performed By: #### 4 5866 #### LAB [address] [address] Jean Gary M.D. [id number] Protein [Mass/Vol] 6.0 g/dL Normal 6.0-8.0 [facility] Comment on above: Performed By: #### 4 [id number] #### LAB [address] [address] Jean Gary M.D. [id number] HbA1c (Bld) [Mass fraction]o n 10-25-2024 Average glucose Estimated from glycated hemoglobin (Bld) [Mass/Vol] 126 mg/dL High 74 - 114 mg/dL [facility] Interpretation and review of laboratory results Abnormal [facility] Hemoglobin A1con 10-25-2024 HbA1c (Bld) [Mass fraction] 6 % High 4.2 - 5.6 % [facility] Hepatic function 2000 panelo n 10-25-2024 Albumin [Mass/Vol] 3.3 g/dL 3.2 - 5.2 g/dL [facility] ALP [Catalytic activity/Vol] 87 U/L 40 - 150 U/L [facility] ALT [Catalytic activity/Vol] 18 U/L 0-35 U/L [facility] AST [Catalytic activity/Vol] 25 U/L 0-35 U/L [facility] Bilirubin [Mass/Vol] 0.7 mg/dL 0.0 - 1 .3 mg/dL [facility] Bilirubin.conjugated [Mass/Vol] 0.4 mg/dL 0.0 - 0.4 mg/dL [facility] Interpretation and review of laboratory results Normal [facility] Protein [Mass/Vol] 6 g/dL 6.0 - 8.0 g/dL [facility] Albumin [Mass/Vol] 3.4 g/dL 3.2 - 5.2 g/dL [facility] ALP [Catalytic activity/Vol] 100 U/L 40 - 150 U/L [facility] ALT [Catalytic activity/Vol] 20 U/L 0-35 U/L [facility] AST [Catalytic activity/Vol] 29 U/L 0-35 U/L [facility] Bilirubin [Mass/Vol] 0.8 mg/dL 0.0 - 1 .3 mg/dL [facility] Bilirubin.conjugated [Mass/Vol] 0.4 mg/dL 0.0 - 0.4 mg/dL [facility] Protein [Mass/Vol] 6.7 g/dL 6.0 - 8.0 g/dL [facility] LIPASEon 10-25-2024 Lipase [Catalytic activity/Vol] 457 U/L High 15-65 [facility] Comment on above: Performed By: #### 4 6086 ####[facility] [address] [place], [place] [address] Jean Gary M.D. [id number] LipaseOrdered By: Priyanka arias on 10-25-2024 Lipase [Catalytic activity/Vol] 457 U/L High 15 - 65 U/L [facility] Lipaseon 10-25-2024 Lipase [Catalytic activity/Vol] 716 U/L High 15 - 65 U/L [facility] Lipase [Catalytic activity/V ol]Ordered By: Priyanka Moreau on 10-25-2024 Interpretation and review of laboratory results Abnormal [facility] Lipase [Catalytic activity/V ol]on 10-25-2024 Interpretation and review of laboratory results Abnormal [facility] MAGNESIUM LEVELon 10-25-2024 Magnesium [Mass/Vol] 1.7 mg/dL Normal 1.6-2.4 [facility] Comment on above: Performed By: #### 4 [id number] #### LAB [address] [place], [place] [address] Jean Gary M.D. [id number] Magnesium [Mass/Vol] 1.8 mg/dL Normal 1.6-2.4 [facility] Comment on above: Performed By: #### 4 6109 #### LAB [address] [place], [place] [address] Jean Gary M.D. [id number] Magnesium Levelon 10-25-2024 Magnesium [Mass/Vol] 1.7 mg/dL 1.6 - 2 .4 mg/dL [facility] Magnesium [Mass/Vol] 1.8 mg/dL 1.6 - 2 .4 mg/dL [facility] Magnesium [Mass/Vol]on 10-25 Interpretation and review of laboratory results Normal [facility] No Panel Informationon 10-25 Interpretation and review of laboratory results Normal [facility] Interpretation and review of laboratory results Normal [facility] OSMOLALITYon 10-25-2024 Osmolality [Osmolality] 275 mosm/kg Normal 275-295 [facility] Comment on above: Performed By: #### 4 6230 #### LAB [address] [place], [place] [address] Jean Gary M.D. [id number] OSMOLALITY, URINEon 10-26-19 25 OSMOLALITY URINE 516 mOsm/kg Normal [facility] Comment on above: Order Comment: No es tablished reference range. Performed By: #### 4 6233 #### LAB [address] [place], [place] [address] Jean Gary M.D. [id number] Osmolalityon 10-25-2024 Osmolality [Osmolality] 275 mosm/kg [facility] Osmolality (U) [Osmolality]o n 10-25-2024 No established reference range. [facility] Osmolality [Osmolality]on Interpretation and review of laboratory results Normal [facility] Osmolality, Urineon 10-26-19 25 Osmolality (U) [Osmolality] 516 mosm/kg mOsm/kg [facility] PHOSPHORUSon 10-25-2024 Phosphate [Mass/Vol] 2.5 mg/dL Low 2.8-4.1 [facility] Comment on above: Performed By: #### 4 6299 #### LAB [address] [place] [address] Jean Gary M.D. [id number] Phosphate [Mass/Vol] 2.8 mg/dL Normal 2.8-4.1 [facility] Comment on above: Performed By: #### 4 6299 #### LAB [address] [place] [address] Jean Gary M.D. [id number] POC GLUCOSE - [facility] 025 Glucose [Mass/Vol] 101 mg/dL High 65-99 [facility] Comment on above: Performed By: #### 4 6932 #### LAB [address] [place] [address] Jean Gary M.D. [id number] Phosphate [Mass/Vol]on 10-25 Interpretation and review of laboratory results Abnormal [facility] Interpretation and review of laboratory results Normal [facility] Phosphoruson 10-25-2024 Phosphate [Mass/Vol] 2.5 mg/dL Low 2.8 - 4 .1 mg/dL [facility] Phosphate [Mass/Vol] 2.8 mg/dL 2.8 - 4 .1 mg/dL [facility] SODIUMon 10-25-2024 Sodium [Moles/Vol] 130 mmol/L Low 135-145 [facility] Comment on above: Performed By: #### 4 6501 ####[facility] LAB [address] [place] [address] Jean Gary M.D. [id number] Sodium [Moles/Vol] 129 mmol/L Low 135-145 [facility] Comment on above: Performed By: #### 4 6501 #### LAB [address] [place] [address] Jean Gary M.D. [id number] Sodiumon 10-25-2024 Sodium [Moles/Vol] 130 mmol/L Low 135 - 145 mmol/L [facility] SodiumOrdered By: Tiffany moran on 10-25-2024 Sodium [Moles/Vol] 129 mmol/L Low 135 - 145 mmol/L [facility] Sodium [Moles/Vol]on 025 Interpretation and review of laboratory results Abnormal [facility] Sodium [Moles/Vol]Ordered By : Tiffany Rodríguez on 10-25-2024 Interpretation and review of laboratory results Abnormal [facility] TSH DL <= 0.005 mIU/L Qnon 0 10-25-2024 TSH Qn 1.43 m[IU]/L [facility] TSH Qn 2.6 m[IU]/L [facility] TSH WITH REFLEX FREE T4on TSH Qn 1.43 m[IU]/L Normal 0.27-4.20 [facility] Comment on above: Performed By: #### 4 6612 #### LAB [address] [place] [address] Jean Gary M.D. [id number] URINALYSISon 10-25-2024 BACTERIA, URINE Rare Abnormal None Seen [facility] Comment on above: Order Comment: Micro scopic examination is performed on all urinalysis samples and only positive findings are reported. The test for blood on the chemical analytic portion of urinalysis may also be positive due to hemoglobinuria and myoglobinuria and if red blood cells are present they are quantified by microscopic examination. Performed By: #### 4 6625 #### LAB [address] [place] [address] Jean Gary M.D. [id number] BILIRUBIN, URINE Negative Normal Negative [facility] Comment on above: Order Comment: Micro scopic examination is performed on all urinalysis samples and only positive findings are reported. The test for blood on the chemical analytic portion of urinalysis may also be positive due to hemoglobinuria and myoglobinuria and if red blood cells are present they are quantified by microscopic examination. Performed By: #### 4 6625 #### LAB [address] [address] Jean Gary M.D. [id number] BLOOD, URINE Negative Normal Negative [facility] Comment on above: Order Comment: Micro scopic examination is performed on all urinalysis samples and only positive findings are reported. The test for blood on the chemical analytic portion of urinalysis may also be positive due to hemoglobinuria and myoglobinuria and if red blood cells are present they are quantified by microscopic examination. Performed By: #### 4 6625 #### LAB [address] [place] [address] Jean Gary M.D. [id number] Clarity (U) Clear Normal Clear [facility] Comment on above: Order Comment: Micro scopic examination is performed on all urinalysis samples and only positive findings are reported. The test for blood on the chemical analytic portion of urinalysis may also be positive due to hemoglobinuria and myoglobinuria and if red blood cells are present they are quantified by microscopic examination. Performed By: #### 4 6625 #### LAB [address] [place] [address] Jean Gary M.D. [id number] Color (U) Yellow Normal Colorless, Yellow [facility] Comment on above: Order Comment: Micro scopic examination is performed on all urinalysis samples and only positive findings are reported. The test for blood on the chemical analytic portion of urinalysis may also be positive due to hemoglobinuria and myoglobinuria and if red blood cells are present they are quantified by microscopic examination. Performed By: #### 4 6625 #### LAB [address] [place] [address] Jean Gary M.D. [id number] Glucose Ql (U) Negative Normal [facility] Comment on above: Order Comment: Micro scopic examination is performed on all urinalysis samples and only positive findings are reported. The test for blood on the chemical analytic portion of urinalysis may also be positive due to hemoglobinuria and myoglobinuria and if red blood cells are present they are quantified by microscopic examination. Performed By: #### 4 6625 #### LAB [address] [place] [address] Jean Gary M.D. [id number] Ketones Ql (U) Trace Abnormal Negative [facility] Comment on above: Order Comment: Micro scopic examination is performed on all urinalysis samples and only positive findings are reported. The test for blood on the chemical analytic portion of urinalysis may also be positive due to hemoglobinuria and myoglobinuria and if red blood cells are present they are quantified by microscopic examination. Performed By: #### 4 6625 #### LAB [address] [place] [address] Jean Gary M.D. [id number] Leukocyte esterase Test strip Ql (U) Negative Normal Negative [facility] Comment on above: Order Comment: Micro scopic examination is performed on all urinalysis samples and only positive findings are reported. The test for blood on the chemical analytic portion of urinalysis may also be positive due to hemoglobinuria and myoglobinuria and if red blood cells are present they are quantified by microscopic examination. Performed By: #### 4 6625 #### LAB [address] [place] [address] Jean Gary M.D. [id number] NITRITE, URINE Negative Normal Negative [facility] Comment on above: Order Comment: Micro scopic examination is performed on all urinalysis samples and only positive findings are reported. The test for blood on the chemical analytic portion of urinalysis may also be positive due to hemoglobinuria and myoglobinuria and if red blood cells are present they are quantified by microscopic examination. Performed By: #### 4 6625 #### LAB [address] [place] [address] Jean Gary M.D. [id number] pH (U) 5.5 [pH] Normal 5.0-7.0 [facility] Comment on above: Order Comment: Micro scopic examination is performed on all urinalysis samples and only positive findings are reported. The test for blood on the chemical analytic portion of urinalysis may also be positive due to hemoglobinuria and myoglobinuria and if red blood cells are present they are quantified by microscopic examination. Performed By: #### 4 6625 #### LAB [address] [place] [address] Jean Gary M.D. [id number] Protein (U) [Mass/Vol] 30 mg/dL Abnormal Negative [facility] Comment on above: Order Comment: Micro scopic examination is performed on all urinalysis samples and only positive findings are reported. The test for blood on the chemical analytic portion of urinalysis may also be positive due to hemoglobinuria and myoglobinuria and if red blood cells are present they are quantified by microscopic examination. Result Comment: Fals e positive results may occur in urines with large amounts of hemoglobin, pH greater than 8.0, contrast medium, or disinfectants including ammonium compounds. Performed By: #### 4 6625 #### LAB [address] [place] [address] Jean Gary M.D. [id number] Specific gravity (U) [Rel density] 1.046 High 1.005-1.025 [facility] Comment on above: Order Comment: Micro scopic examination is performed on all urinalysis samples and only positive findings are reported. The test for blood on the chemical analytic portion of urinalysis may also be positive due to hemoglobinuria and myoglobinuria and if red blood cells are present they are quantified by microscopic examination. Performed By: #### 4 6625 ####[facility] [address] [place] [address] Jean Gary M.D. [id number] TRANSITIONAL EPITHELIAL < Normal 0-1 [facility] Comment on above: Order Comment: Micro scopic examination is performed on all urinalysis samples and only positive findings are reported. The test for blood on the chemical analytic portion of urinalysis may also be positive due to hemoglobinuria and myoglobinuria and if red blood cells are present they are quantified by microscopic examination. Performed By: #### 4 6625 #### LAB [address] [place] [address] Jean Gary M.D. [id number] UROBILINOGEN, URINE <2.0 Normal <2.0 [facility] Comment on above: Order Comment: Micro scopic examination is performed on all urinalysis samples and only positive findings are reported. The test for blood on the chemical analytic portion of urinalysis may also be positive due to hemoglobinuria and myoglobinuria and if red blood cells are present they are quantified by microscopic examination. Performed By: #### 4 6625 #### LAB [address] [place], [place] [address] Jean Gary M.D. [id number] WBC LM.HPF (Urine sed) [#/Area] 2 /[HPF] Normal 0-5 [facility] Comment on above: Order Comment: Micro scopic examination is performed on all urinalysis samples and only positive findings are reported. The test for blood on the chemical analytic portion of urinalysis may also be positive due to hemoglobinuria and myoglobinuria and if red blood cells are present they are quantified by microscopic examination. Performed By: #### 4 6625 #### LAB [address] [place], [place] [address] Jean Gary M.D. [id number] US Abdomen limitedon 025 1. Normal right upper quadrant ultrasound. 2. No biliary duct dilatation or gallstones. 3. Stable hepatomegaly. [employer] Workstation ID: [id number] [place] EXAMINATION: US ABDOMEN LIMITED STUDY HISTORY: ORDERING SYSTEM PROVIDED HISTORY: right upper quadrant pain, TECHNOLOGIST PROVIDED HISTORY: Illness/Other Reason for exam: right upper quadrant pain Cancer History: u Surgery, RadiationHistory: u Encounter Type: Initial Additional signs and symptoms: none ORDERING SYSTEM PROVIDED DIAGNOSIS CODES: COMPARISON: CT abdomen and pelvis 10/24/2024. FINDINGS: Parrish scale and color sonography of the right upper quadrant. LIVER: Normal echogenicity, morphology. Stable hepatomegaly. No focal hepatic lesion. IVC and imaged portal vein appear normal. BILIARY: The gallbladder is normal. No gallstones. Sonographic Balderas sign is absent. No intrahepatic or extrahepatic biliary duct dilatation. Common bile duct measures 0.4 cm. PANCREAS: The imaged pancreas is normal. RIGHT KIDNEY: 9.3 cm in sagittal dimension. Right superior pole 0.9 x 0.8 x 0.8 cm renal cyst. No renal calculi or hydronephrosis. Renal echogenicity and morphology are normal. [place] Lianna Erazo MD - 10/25/2024 EXAMINATION: US ABDOMEN LIMITED STUDY HISTORY: ORDERING SYSTEM PROVIDED HISTORY: right upper quadrant pain, TECHNOLOGIST PROVIDED HISTORY: Illness/Other Reason for exam: right upper quadrant pain Cancer History: u Surgery, RadiationHistory: u Encounter Type: Initial Additional signs and symptoms: none ORDERING SYSTEM PROVIDED DIAGNOSIS CODES: COMPARISON: CT abdomen and pelvis 10/24/2024. FINDINGS: Parrish scale and color sonography of the right upper quadrant. LIVER: Normal echogenicity, morphology. Stable hepatomegaly. No focal hepatic lesion. IVC and imaged portal vein appear normal. BILIARY: The gallbladder is normal. No gallstones. Sonographic Balderas sign is absent. No intrahepatic or extrahepatic biliary duct dilatation. Common bile duct measures 0.4 cm. PANCREAS: The imaged pancreas is normal. RIGHT KIDNEY: 9.3 cm in sagittal dimension. Right superior pole 0.9 x 0.8 x 0.8 cm renal cyst. No renal calculi or hydronephrosis. Renal echogenicity and morphology are normal. IMPRESSION: 1. Normal right upper quadrant ultrasound. 2. No biliary duct dilatation or gallstones. 3. Stable hepatomegaly. [employer] Workstation ID: [id number] [facility] Radiology Study observation (narrative) [facility] US Abdomen limitedOrdered By : Lianna Erazo on 10-25-2024 [facility] Work Phone: UrinalysisOrdered By: Chapis in [place] on 10-25-2024 Bacteria Auto Ql (U) Rare Abnormal None Seen /hpf [facility] Bilirubin Ql (U) Negative Negative [facility] Clarity Refractometry automated (U) Clear Clear [facility] Color (U) Yellow Colorless, Yellow [facility] Glucose Auto test strip (U) [Mass/Vol] Negative Negative mg/dL [facility] Hemoglobin Auto test strip Ql (U) Negative Negative [facility] Interpretation and review of laboratory results Abnormal [facility] Ketones (U) [Mass/Vol] Trace Abnormal Negative mg/dL [facility] Leukocyte esterase Auto test strip Ql (U) Negative Negative [facility] Nitrite Auto test strip Ql (U) Negative Negative [facility] pH (U) 5.5 [pH] 5.0 - 7.0 [facility] Protein (U) [Mass/Vol] 30 mg/dL Abnormal Negative [facility] Comment on above: False positive resul ts may occur in urines with large amounts of hemoglobin, pH greater than 8.0, contrast medium, or disinfectants including ammonium compounds. Specific gravity (U) [Rel density] 1.046 High 1.005 - 1.025 [facility] Transitional cells Computer assisted (U) [#/Area] [facility] Urobilinogen (U) [Mass/Vol] mg/dL NINF - 2.0 mg/dL [facility] WBC Auto (Urine sed) [#/Area] 2 [facility] Microscopic examination is performed on all urinalysis samples and only positive findings are reported. The test for blood on the chemical analytic portion of urinalysis may also be positive due to hemoglobinuria and myoglobinuria and if red blood cells are present they are quantified by microscopic examination. [facility] VITAMIN D, TOTAL, 25-OHon VITAMIN D 25-HYDROXY 73 ng/mL Normal 20-100 [facility] Comment on above: Order Comment: Vitam in D Expected ValuesDeficiency: 0-10Insufficiency: 10-20Sufficient: 20-100Toxicity: >100 Performed By: #### 4 6678 #### LAB [address] [place], [place] [address] Jean Gary M.D. [id number] Vitamin D, Total, 25-OHon 25-hydroxyvitamin D [Mass/Vol] 73 ng/mL 20 - 100 ng/mL [facility] Interpretation and review of laboratory results Normal [facility] Vitamin D Expected Values Deficiency: 0-10 Insufficiency: 10-20 Sufficient: 20-100 Toxicity: >100 [facility] BASIC METABOLIC PANELon 10-15 Anion gap [Moles/Vol] 19 mmol/L Normal 10-20 [facility] Comment on above: Order Comment: [facility] has implemented the eGFR calculation approach that does not have a coefficient for race that conforms to the NKF-ASN Task Force Recommendations. Performed By: #### 4 6124 #### LAB [address] [place], [place] [address] Jean Gary M.D. [id number] Calcium [Mass/Vol] 8.7 mg/dL Normal 8.4-10.2 [facility] Comment on above: Order Comment: [facility] has implemented the eGFR calculation approach that does not have a coefficient for race that conforms to the NKF-ASN Task Force Recommendations. Performed By: #### 4 6124 #### LAB [address] [place], [place] [address] Jean Gary M.D. [id number] Chloride [Moles/Vol] 87 mmol/L Low 98-108 [facility] Comment on above: Order Comment: [facility] has implemented the eGFR calculation approach that does not have a coefficient for race that conforms to the NKF-ASN Task Force Recommendations. Performed By: #### 4 6124 #### LAB [address] [place] [address] Jean Gary M.D. [id number] Creatinine [Mass/Vol] 1.20 mg/dL Normal 0.60-1.10 [facility] Comment on above: Order Comment: [facility] has implemented the eGFR calculation approach that does not have a coefficient for race that conforms to the NKF-ASN Task Force Recommendations. Performed By: #### 4 6124 ####[facility] LAB [address] [place] [address] Jean Gary M.D. [id number] EGFR 47 mL/min/1.73 m2 Low >=60 [facility] Comment on above: Order Comment: [facility] has implemented the eGFR calculation approach that does not have a coefficient for race that conforms to the NKF-ASN Task Force Recommendations. Result Comment: Cassi mated GFR was calculated using the 2020 CKD-EPI creatinine equation. Performed By: #### 4 6124 ####[facility] LAB [address] [place] [address] Jean Gary M.D. [id number] Glucose [Mass/Vol] 83 mg/dL Normal 65-99 [facility] Comment on above: Order Comment: [facility] has implemented the eGFR calculation approach that does not have a coefficient for race that conforms to the NKF-ASN Task Force Recommendations. Performed By: #### 4 6124 ####[facility] LAB [address] [place] [address] Jean Gary M.D. [id number] HCO3 (Bld) [Moles/Vol] 22 mmol/L Normal 21-32 [facility] Comment on above: Order Comment: [facility] has implemented the eGFR calculation approach that does not have a coefficient for race that conforms to the NKF-ASN Task Force Recommendations. Performed By: #### 4 6124 #### LAB [address] [place] [address] Jean Gary M.D. [id number] Potassium [Moles/Vol] 3.4 mmol/L Low 3.5-5.1 [facility] Comment on above: Order Comment: [facility] has implemented the eGFR calculation approach that does not have a coefficient for race that conforms to the NKF-ASN Task Force Recommendations. Performed By: #### 4 6124 #### LAB [address] [place] [address] Jean Gary M.D. [id number] Sodium [Moles/Vol] 125 mmol/L Low 135-145 [facility] Comment on above: Order Comment: [facility] has implemented the eGFR calculation approach that does not have a coefficient for race that conforms to the NKF-ASN Task Force Recommendations. Performed By: #### 4 6124 #### LAB [address] [place] [address] Jean Gary M.D. [id number] Urea nitrogen [Mass/Vol] 30 mg/dL High 8-25 [facility] Comment on above: Order Comment: [facility] has implemented the eGFR calculation approach that does not have a coefficient for race that conforms to the NKF-ASN Task Force Recommendations. Performed By: #### 4 6124 ####[facility] LAB [address] [place] [address] Jean Gary M.D. [id number] Urea nitrogen/Creatinine [Mass ratio] 25.0 mg/mg High 10.0-20.0 [facility] Comment on above: Order Comment: [facility] has implemented the eGFR calculation approach that does not have a coefficient for race that conforms to the NKF-ASN Task Force Recommendations. Performed By: #### 4 6124 #### LAB [address] [place] [address] Jean Gary M.D. [id number] CBC WITH AUTO DIFFERENTIALon 10-24-2024 AUTO NRBC 0.0 % Normal [facility] Comment on above: Performed By: #### L [id number] #### LAB [address] [place] [address] Jean Gary M.D. [id number] AUTO NRBC ABS COUNT 0.00 K/mcL Normal 0.00-0.00 [facility] Comment on above: Performed By: #### L [id number] #### LAB [address] [place] [address] Jean Gary M.D. [id number] BASOPHILS ABSOLUTE COUNT 0.05 K/mcL Normal 0.00-0.30 [facility] Comment on above: Performed By: #### L [id number] #### LAB [address] [place] [address] Jean Gary M.D. [id number] Basophils/100 WBC (Bld) 0.3 % Normal [facility] Comment on above: Performed By: #### L [id number] #### LAB [address] [place] [address] Jean Gary M.D. [id number] Eosinophils (Bld) [#/Vol] 0.01 10*3/uL Normal 0.00-0.50 [facility] Comment on above: Performed By: #### L [id number] #### LAB [address] [place] [address] Jean Gary M.D. [id number] Eosinophils/100 WBC (Bld) 0.1 % Normal [facility] Comment on above: Performed By: #### L [id number] #### LAB [address] [place] [address] Jean Gary M.D. [id number] Erythrocyte distribution width (RBC) [Ratio] 13.4 % Normal 11.6-14.8 [facility] Comment on above: Performed By: #### L [id number] #### LAB [address] [place] [address] Jean Gary M.D. [id number] Hematocrit (Bld) [Volume fraction] 42.1 % Normal 36.0-46.0 [facility] Comment on above: Performed By: #### L [id number] #### LAB [address] [place] [address] Jean Gary M.D. [id number] Hemoglobin (Bld) [Mass/Vol] 14.5 g/dL Normal 12.0-16.0 [facility] Comment on above: Performed By: #### L [id number] #### LAB [address] [place] [address] Jean Gary M.D. [id number] IG ABSOLUTE 0.08 K/mcL Normal 0.00-0.30 [facility] Comment on above: Performed By: #### L [id number] ####[facility] [address] [address] Jean Gary M.D. [id number] IG PERCENT 0.50 % Normal [facility] Comment on above: Result Comment: The IG parameter is the percentage of metamyelocytes, myelocytes and promyelocytes. An immature granulocyte count (IG) of 1% or more suggests the possibility of infection, an IG count of 3% is very likely related to an infection. Performed By: #### L [id number] #### LAB [address] [place] [address] Jean Gary M.D. [id number] Lymphocytes (Bld) [#/Vol] 1.11 10*3/uL Normal 0.90-4.00 [facility] Comment on above: Performed By: #### L [id number] #### LAB [address] [place] [address] Jean Gary M.D. [id number] Lymphocytes/100 WBC (Bld) 7.4 % Normal [facility] Comment on above: Performed By: #### L [id number] #### LAB [address] [place] [address] Jean Gary M.D. [id number] MCH (RBC) [Entitic mass] 32.0 pg Normal 26.0-34.0 [facility] Comment on above: Performed By: #### L [id number] #### LAB [address] [place] [address] Jean Gary M.D. [id number] MCV (RBC) [Entitic vol] 92.9 fL Normal 80.0-100.0 [facility] Comment on above: Performed By: #### L [id number] #### LAB [address] [place] [address] Jean Gary M.D. [id number] MEAN CORPUSCULAR HEMOGLOBIN CONC 34.4 g/dL Normal 31.0-37.0 [facility] Comment on above: Performed By: #### L [id number] #### LAB [address] [place] [address] Jean Gary M.D. [id number] Monocytes (Bld) [#/Vol] 1.98 10*3/uL High 0.30-0.90 [facility] Comment on above: Performed By: #### L [id number] #### LAB [address] [place] [address] Jean Gary M.D. [id number] Monocytes/100 WBC (Bld) 13.2 % Normal [facility] Comment on above: Performed By: #### L [id number] #### LAB [address] [place] [address] Jean Gary M.D. [id number] NEUTROPHILS ABSOLUTE COUNT 11.80 K/mcL High 1.70-7.00 [facility] Comment on above: Performed By: #### L [id number] #### LAB [address] [place] [address] Jean Gary M.D. [id number] Neutrophils/100 WBC (Bld) 78.5 % Normal [facility] Comment on above: Performed By: #### L [id number] #### LAB [address] [place] [address] Jean Gary M.D. [id number] Platelet mean volume (Bld) [Entitic vol] 9.6 fL Normal 9.4-12.4 [facility] Comment on above: Performed By: #### L [id number] #### LAB [address] [place], [place] [address] Jean Gary M.D. [id number] Platelets (Bld) [#/Vol] 342 10*3/uL Normal 150-400 [facility] Comment on above: Performed By: #### L [id number] ####[facility] LAB [address] [address] Jean Gary M.D. [id number] RBC (Bld) [#/Vol] 4.53 10*6/uL Normal 4.00-5.20 [facility] Comment on above: Performed By: #### L [id number] ####[facility] LAB [address] [place], [place] [address] Jean Gary M.D. [id number] WBC (Bld) [#/Vol] 15.03 10*3/uL High 4.50-11.00 [facility] Comment on above: Performed By: #### L [id number] #### LAB [address] [place], [place] [address] Jean Gary M.D. [id number] CONSULTon 10-24-2024 CONSULT Normal [facility] CT ABDOMEN PELVIS WITH IV CO NTRAST ONLYon 10-24-2024 CT ABDOMEN PELVIS WITH IV CONTRAST ONLY EXAMINATION: CT ABDOMEN PELVIS WITH IV CONTRAST ONLY HISTORY: ORDERING SYSTEM PROVIDED HISTORY: Abdominal pain, acute, nonlocalized, TECHNOLOGIST PROVIDED HISTORY: Illness/Other Reason for exam: abd pain Encounter Type: Initial Additional signs and symptoms: emesis, diarrhea x 5 days ORDERING SYSTEM PROVIDED DIAGNOSIS CODES: COMPARISON: MRI lumbar spine 06/02/2024, CT chest 09/09/2023, CT hip 08/29/2021. TECHNIQUE: CT examination of the abdomen and pelvis following the administration of intravenous contrast. Coronal and sagittal reformations were performed. Dose reduction techniques were achieved by using automated exposure control and/or adjustment of mA and/or kV according to patient size and/or use of iterative reconstruction technique. CONTRAST: IOPAMIDOL 370 MG IODINE/ML (76 %) INTRAVENOUS SOLUTION - 75 mL, FINDINGS: Lower thorax: No pericardial or pleural effusion. Subpleural reticular and tree-in-bud opacities in the right greater than left lower lobes. Liver and biliary tree: No focal hepatic lesions. Gallbladder: Gallbladder appears distended. Spleen: Normal. Pancreas: There is peripancreatic stranding near the tail of the pancreas and interposed between the head of the pancreas and duodenum. Adrenal glands: Normal. Kidneys and ureters: Kidneys symmetrically enhance. No obstructive uropathy. Bilateral renal cysts. Urinary bladder: Under-distended which limits evaluation. Reproductive organs: Hysterectomy. Gastrointestinal tract: Lower esophagus and stomach are unremarkable. Mild duodenal wall thickening. There is no small bowel obstruction. The patient is status post appendectomy. There is fluid within the cecum and ascending colon. Colonic diverticulosis without evidence of diverticulitis. Peritoneal cavity: No free fluid or free air. Vasculature: Atherosclerosis. Ectasia of the infrarenal aorta up to 2.6 cm. Lymph nodes: No bulky lymphadenopathy. Abdominal wall: No acute findings. Stable area of fluid within the left ventral abdominal wall. Musculoskeletal: There are new compression fractures of T12, L1, and superior endplate of L4. The known L2 fracture is not substantially changed. The T12 fracture is approximately 40% compressed. The L1 fracture is compressed approximately 60%. The patient is status post total left hip arthroplasty. IMPRESSION: 1. New compression fractures of T12, L1, and superior endplate fracture of L4. 2. Peripancreatic stranding suggests acute pancreatitis. Small amount of stranding is also interposed between the head of the pancreas and duodenum which could represent concomitant duodenitis. 3. The gallbladder appears distended. If clinically indicated, consider right upper quadrant ultrasound. 4. Tree-in-bud opacities in the lung bases suggest an atypical infectious or inflammatory small airways disease and bronchiolitis. 5. Fluid within the cecum and ascending colon could be related to diarrheal illness. 6. Status post hysterectomy and appendectomy. NIELS/alt Workstation ID: [id number] Dictated by: YOKASTA BURRELL on ThuOct 24, 2024 7:06:14 PM EDT Transcribed by: JACKELYN GOMEZ on ThuOct 24, 2024 7:10:41 PM EDT Finalized by: YOKASTA BURRELL on ThuOct 24, 2024 7:25:33 PM EDT [facility] Comment on above: Order Comment: Injur y/Trauma or Illness?:Illness/Other How long have you had these symptoms (acute/chronic)?:Acute Reason for exam?:abd pain Type of Exam?:Initial Additional signs and symptoms?:emesis, diarrhea x 5 days ED Prov Noteon 10-24-2024 ED Prov Note ED PROVIDER NOTE [facility] NAME: Elizabeth Cisneros AGE: 74 y.o. : 1950 VISIT DATE: 10/24/2024 CSN: [id number] PCP: Sj Motley MD Chief Complaint Patient presents with Emesis Diarrhea 74-year-old female patient presents ER for evaluation of nausea vomiting diarrhea. Patient states over the last 2 days send nausea vomiting diarrhea associated with abdominal cramps. No associate fevers chest pain difficulty breathing. No hematochezia. 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 Watters SINUS SURGERY 12/30/2019 balloon sinuplasty - Dr. Key SKIN BIOPSY TONSILLECTOMY TRIGGER FINGER RELEASE Right 03/24/2018 RELEASE A1 TOD LEFT MIDDLE,RING, AND SMALL FINGERS WITH CORTISONE INJECTION RIGHT MIDDLE FINGER A1 TOD; Surgeon: Yonas Nguyen MD TUBAL LIGATION Family History Problem Relation Age of Onset Hypertension Father Asthma Father COPD Father Diabetes Father Hearing loss Father Heart disease Father Hyperlipidemia Father Osteoporosis Mother Hypertension Mother Arthritis Mother Cancer Mother Heart disease Mother Heart disease Maternal Grandfather Heart disease Sister Hypertension Sister Cancer Brother Asthma Brother Diabetes Brother Anesthesia problems Neg Hx Hip fracture Neg Hx Social History Socioeconomic History Marital status: Single Occupational History 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 Tobacco Use Smoking status: Former Current packs/day: 0.00 Average packs/day: 1.5 packs/day for 42.1 years (63.1 ttl pk-yrs) Types: Cigarettes Start date: 1979 Quit date: 09/17/2021 Years since quittin.1 Passive exposure: Past Smokeless tobacco: Never Tobacco comments: Cigarettes Vaping Use Vaping status: Never Used Substance and Sexual Activity Alcohol use: No Drug use: No Sexual activity: Not Currently control/protection: Pill, Diaphragm, I.U.D., Surgical Comment: hysterectomy at age 39 Social Drivers of Health Financial Resource Strain: Low Risk (10/14/2024) Overall Financial Resource Strain (CARDIA) Difficulty of Paying Living Expenses: Not hard at all Food Insecurity: No Food Insecurity (05/31/2024) Hunger Vital Sign Worried About Running Out of Food in the Last Year: Never true Ran Out of Food in the Last Year: Never true Transportation Needs: No Transportation Needs (05/31/2024) PRAPARE - Transportation Lack of Transportation (Medical): No Lack of Transportation (Non-Medical): No Housing Stability: Low Risk (05/31/2024) Housing Stability Vital Sign Unable to Pay for Housing in the Last Year: No Number of Times Moved in the Last Year: 1 Homeless in the Last Year: No Previous Medications Medication Sig acetaminophen (TYLENOL) 500 MG tablet Take 1 (one) tablet (500 mg total) by mouth every 6 (six) hours as needed for pain THREE TIMES DAILY . albuterol (PROVENTIL) 2.5 mg /3 mL (0.083 %) nebulizer solution Take 3 mL (2.5 mg total) by nebulization every 6 (six) hours as needed for wheezing . albuterol (PROVENTIL) 2.5 mg /3 mL (0.083 %) nebulizer solution Take 3 mL (2.5 mg total) by nebulization every 6 (six) hours as needed for wheezing . albuterol 90 mcg/actuation inhaler Inhale 1 (one) puff to 2 (two) puffs every 4 to 6 hours as needed . atenoloL (TENORMIN) 50 MG tablet Take 1 (one) tablet (50 mg total) by mouth 2 (two) times a day . [place] Saline Gel Apply topically 2 (two) times a day Apply a pea sized amount to both nostrils at bedtime and (more content not included)... Normal [facility] HEPATIC FUNCTION PANELon Albumin [Mass/Vol] 3.4 g/dL Normal 3.2-5.2 [facility] Comment on above: Performed By: #### [id number] #### LAB [address] [address] Jean Gary M.D. [id number] ALP [Catalytic activity/Vol] 100 U/L Normal 40-150 [facility] Comment on above: Performed By: #### [id number] #### LAB [address] [address] Jean Gary M.D. [id number] ALT [Catalytic activity/Vol] 20 U/L Normal 0-35 U/L [facility] Comment on above: Performed By: #### [id number] #### LAB [address] [address] Jean Gary M.D. [id number] AST [Catalytic activity/Vol] 29 U/L Normal 0-35 U/L [facility] Comment on above: Performed By: #### 4 [id number] #### LAB [address] [address] eJan Gary M.D. [id number] Bilirubin [Mass/Vol] 0.8 mg/dL Normal 0.0-1.3 [facility] Comment on above: Performed By: #### 4 [id number] #### LAB [address] [address] Jean Gary M.D. [id number] Bilirubin.indirect [Mass/Vol] 0.4 mg/dL Normal 0.0-0.4 [facility] Comment on above: Performed By: #### 4 [id number] #### LAB [address] [place], [place] [address] Jean Gary M.D. [id number] Protein [Mass/Vol] 6.7 g/dL Normal 6.0-8.0 [facility] Comment on above: Performed By: #### 4 [id number] #### LAB [address] [place] [id number] Jean Gary M.D. [id number] LIPASEon 10-24-2024 Lipase [Catalytic activity/Vol] 716 U/L High 1565 [facility] Comment on above: Performed By: #### 4 [id number] #### LAB [address] [place], [place] [address] Jean Gary M.D. [id number] POC CBC AND DIFFERENTIALon 0 10-24-2024 Erythrocyte distribution width (RBC) [Ratio] 13.1 % Normal 11.6-14.8 [facility] Hematocrit (Bld) [Volume fraction] 41.3 % Normal 36.0-46.0 [facility] Hemoglobin (Bld) [Mass/Vol] 14.6 g/dL Normal 12.0-16.0 [facility] MCH (RBC) [Entitic mass] 32.6 pg Normal 26.0-34.0 [facility] MCV (RBC) [Entitic vol] 92.2 fL Normal 80.0-100.0 [facility] MEAN CORPUSCULAR HEMOGLOBIN CONC 35.4 g/dL Normal 31.0-37.0 [facility] Platelet mean volume (Bld) [Entitic vol] 8.8 fL Low 9.4-12.4 [facility] Platelets (Bld) [#/Vol] 320 10*3/uL Normal 150-400 [facility] RBC (Bld) [#/Vol] 4.48 10*6/uL Normal 4.00-5.20 [facility] [id number] See Comment Critically abnormal (none) [facility] Comment on above: Result Comment: CRIT ICAL. CBCD reordered and sent to . Possible interfering substance affecting the WBC and Differential parameters. Erythrocyte distribution width (RBC) [Ratio] 13.1 % Normal 11.6-14.8 [facility] Hematocrit (Bld) [Volume fraction] 42.5 % Normal 36.0-46.0 [facility] Hemoglobin (Bld) [Mass/Vol] 15.1 g/dL Normal 12.0-16.0 [facility] MCH (RBC) [Entitic mass] 32.9 pg Normal 26.0-34.0 [facility] MCV (RBC) [Entitic vol] 92.6 fL Normal 80.0-100.0 [facility] MEAN CORPUSCULAR HEMOGLOBIN CONC 35.5 g/dL Normal 31.0-37.0 [facility] Platelet mean volume (Bld) [Entitic vol] 8.7 fL Low 9.4-12.4 [facility] Platelets (Bld) [#/Vol] 331 10*3/uL Normal 150-400 [facility] RBC (Bld) [#/Vol] 4.59 10*6/uL Normal 4.00-5.20 [facility] [id number] See Comment Critically abnormal (none) [facility] Comment on above: Result Comment: DUDLEY TALBERT. CBCD reordered and sent to . Possible interfering substance affecting the WBC and Differential parameters. POC [facility] Albumin [Mass/Vol] 3.6 g/dL Normal 3.2-5.2 [facility] Comment on above: Order Comment: Criti citlalli result acted upon time of test. Test performed at bedside. ALP [Catalytic activity/Vol] 108 U/L Normal 40-150 [facility] Comment on above: Order Comment: Criti citlalli result acted upon time of test. Test performed at bedside. ALT [Catalytic activity/Vol] 25 U/L Normal 0-40 [facility] Comment on above: Order Comment: Criti citlalli result acted upon time of test. Test performed at bedside. Amylase [Catalytic activity/Vol] 337 U/L Off scale high 25-115 [facility] Comment on above: Order Comment: Criti citlalli result acted upon time of test. Test performed at bedside. Amylase [Catalytic activity/Vol] 102 U/L High 7-33 [facility] Comment on above: Order Comment: Criti citlalli result acted upon time of test. Test performed at bedside. AST [Catalytic activity/Vol] 44 U/L Normal 0-45 [facility] Comment on above: Order Comment: Criti citlalli result acted upon time of test. Test performed at bedside. Bilirubin [Mass/Vol] 1.4 mg/dL High 0.0-1.3 [facility] Comment on above: Order Comment: Criti citlalli result acted upon time of test. Test performed at bedside. Protein [Mass/Vol] 7.5 g/dL Normal 6.0-8.0 [facility] Comment on above: Order Comment: Criti citlalli result acted upon time of test. Test performed at bedside. POC URINALYSIS DIPSTICK,[facility]24 POC BILIRUBIN, URINE Negative Normal Negative [facility] POC BLOOD, URINE Negative Normal Negative [facility] POC GLUCOSE, URINE Negative Normal Negative [facility] POC KETONES, URINE 15 mg/dL Abnormal Negative [facility] POC LEUKOCYTE ESTERASE, URINE Negative Normal Negative [facility] POC NITRITE, URINE Negative Normal Negative [facility] POC PH, URINE 6.5 Normal 5.0-7.0 [facility] POC SPECIFIC GRAVITY 1.010 Normal 1.005-1.025 [facility] POC UROBILINOGEN 0.2 mg/dL Normal < 2.0 [facility] Protein (U) [Mass/Vol] 30 mg/dL Abnormal Negative [facility] POC VBG (EPOC) WITH FULL [facility] BASE EXCESS, VENOUS 2.5 High -2.0-2.0 [facility] Comment on above: Order Comment: [facility] has implemented the eGFR calculation approach that does not have a coefficient for race that conforms to the NKF-ASN Task Force Recommendations.Specimens collected in a lithium heparin tube may show erroneous pO2, pCO2 and related calculations due to aerobic handling. If the most accurate venous blood gas results are needed, use a heparinized blood gas syringe. CALCIUM IONIZED 4.2 mg/dL Low 4.5-5.3 [facility] Comment on above: Order Comment: [facility] has implemented the eGFR calculation approach that does not have a coefficient for race that conforms to the NKF-ASN Task Force Recommendations.Specimens collected in a lithium heparin tube may show erroneous pO2, pCO2 and related calculations due to aerobic handling. If the most accurate venous blood gas results are needed, use a heparinized blood gas syringe. Chloride [Moles/Vol] 85 mmol/L Low 98-108 [facility] Comment on above: Order Comment: [facility] has implemented the eGFR calculation approach that does not have a coefficient for race that conforms to the NKF-ASN Task Force Recommendations.Specimens collected in a lithium heparin tube may show erroneous pO2, pCO2 and related calculations due to aerobic handling. If the most accurate venous blood gas results are needed, use a heparinized blood gas syringe. Creatinine [Mass/Vol] 1.05 mg/dL Normal 0.60-1.20 [facility] Comment on above: Order Comment: [facility] has implemented the eGFR calculation approach that does not have a coefficient for race that conforms to the NKF-ASN Task Force Recommendations.Specimens collected in a lithium heparin tube may show erroneous pO2, pCO2 and related calculations due to aerobic handling. If the most accurate venous blood gas results are needed, use a heparinized blood gas syringe. Glucose [Mass/Vol] 86 mg/dL Normal 65-99 [facility] Comment on above: Order Comment: [facility] has implemented the eGFR calculation approach that does not have a coefficient for race that conforms to the NKF-ASN Task Force Recommendations.Specimens collected in a lithium heparin tube may show erroneous pO2, pCO2 and related calculations due to aerobic handling. If the most accurate venous blood gas results are needed, use a heparinized blood gas syringe. HCO3 (Bld) [Moles/Vol] 26.4 mmol/L Normal 24.0-28.0 [facility] Comment on above: Order Comment: [facility] has implemented the eGFR calculation approach that does not have a coefficient for race that conforms to the NKF-ASN Task Force Recommendations.Specimens collected in a lithium heparin tube may show erroneous pO2, pCO2 and related calculations due to aerobic handling. If the most accurate venous blood gas results are needed, use a heparinized blood gas syringe. Hematocrit (Bld) [Volume fraction] 53 % High 36-46 [facility] Comment on above: Order Comment: [facility] has implemented the eGFR calculation approach that does not have a coefficient for race that conforms to the NKF-ASN Task Force Recommendations.Specimens collected in a lithium heparin tube may show erroneous pO2, pCO2 and related calculations due to aerobic handling. If the most accurate venous blood gas results are needed, use a heparinized blood gas syringe. HEMOGLOBIN, CALCULATED 18.1 g/dL High 12.0-16.0 [facility] Comment on above: Order Comment: [facility] has implemented the eGFR calculation approach that does not have a coefficient for race that conforms to the NKF-ASN Task Force Recommendations.Specimens collected in a lithium heparin tube may show erroneous pO2, pCO2 and related calculations due to aerobic handling. If the most accurate venous blood gas results are needed, use a heparinized blood gas syringe. Oxygen saturation in Blood 69.2 % Normal 40.0-70.0 [facility] Comment on above: Order Comment: [facility] has implemented the eGFR calculation approach that does not have a coefficient for race that conforms to the NKF-ASN Task Force Recommendations.Specimens collected in a lithium heparin tube may show erroneous pO2, pCO2 and related calculations due to aerobic handling. If the most accurate venous blood gas results are needed, use a heparinized blood gas syringe. PCO2 VENOUS 37.7 mm Hg Low 41.0-51.0 [facility] Comment on above: Order Comment: [facility] has implemented the eGFR calculation approach that does not have a coefficient for race that conforms to the NKF-ASN Task Force Recommendations.Specimens collected in a lithium heparin tube may show erroneous pO2, pCO2 and related calculations due to aerobic handling. If the most accurate venous blood gas results are needed, use a heparinized blood gas syringe. PH VENOUS 7.45 High 7.32-7.42 [facility] Comment on above: Order Comment: [facility] has implemented the eGFR calculation approach that does not have a coefficient for race that conforms to the NKF-ASN Task Force Recommendations.Specimens collected in a lithium heparin tube may show erroneous pO2, pCO2 and related calculations due to aerobic handling. If the most accurate venous blood gas results are needed, use a heparinized blood gas syringe. PO2 VENOUS 34 mm Hg Normal 25-40 [facility] Comment on above: Order Comment: [facility] has implemented the eGFR calculation approach that does not have a coefficient for race that conforms to the NKF-ASN Task Force Recommendations.Specimens collected in a lithium heparin tube may show erroneous pO2, pCO2 and related calculations due to aerobic handling. If the most accurate venous blood gas results are needed, use a heparinized blood gas syringe. POC GFR 55 mL/min/1.73 m2 Low >=60 [facility] Comment on above: Order Comment: [facility] has implemented the eGFR calculation approach that does not have a coefficient for race that conforms to the NKF-ASN Task Force Recommendations.Specimens collected in a lithium heparin tube may show erroneous pO2, pCO2 and related calculations due to aerobic handling. If the most accurate venous blood gas results are needed, use a heparinized blood gas syringe. Result Comment: Cassi mated GFR was calculated using the 2020 CKD-EPI creatinine equation. POC LACTATE 1.7 mmol/L Normal 0.6-2.0 [facility] Comment on above: Order Comment: [facility] has implemented the eGFR calculation approach that does not have a coefficient for race that conforms to the NKF-ASN Task Force Recommendations.Specimens collected in a lithium heparin tube may show erroneous pO2, pCO2 and related calculations due to aerobic handling. If the most accurate venous blood gas results are needed, use a heparinized blood gas syringe. Potassium [Moles/Vol] 3.6 mmol/L Normal 3.5-5.1 [facility] Comment on above: Order Comment: [facility] has implemented the eGFR calculation approach that does not have a coefficient for race that conforms to the NKF-ASN Task Force Recommendations.Specimens collected in a lithium heparin tube may show erroneous pO2, pCO2 and related calculations due to aerobic handling. If the most accurate venous blood gas results are needed, use a heparinized blood gas syringe. Sodium [Moles/Vol] 125 mmol/L Low 135-145 [facility] Comment on above: Order Comment: [facility] has implemented the eGFR calculation approach that does not have a coefficient for race that conforms to the NKF-ASN Task Force Recommendations.Specimens collected in a lithium heparin tube may show erroneous pO2, pCO2 and related calculations due to aerobic handling. If the most accurate venous blood gas results are needed, use a heparinized blood gas syringe. Urea nitrogen [Mass/Vol] 31 mg/dL High 8-25 [facility] Comment on above: Order Comment: [facility] has implemented the eGFR calculation approach that does not have a coefficient for race that conforms to the NKF-ASN Task Force Recommendations.Specimens collected in a lithium heparin tube may show erroneous pO2, pCO2 and related calculations due to aerobic handling. If the most accurate venous blood gas results are needed, use a heparinized blood gas syringe. TSH WITH REFLEX FREE T4on TSH Qn 2.60 m[IU]/L Normal 0.27-4.20 [facility] Comment on above: Performed By: #### [id number] ####[facility] [address] [place], [place] [address] Jean Gary M.D. [id number] US ABDOMEN LIMITED STUDYon 0 10-24-2024 US ABDOMEN LIMITED STUDY Normal [facility] Comment on above: Order Comment: Injur y/Trauma or Illness?:Illness/OtherHow long have you had these symptoms (acute/chronic)?:AcuteReason for exam?:right upper quadrant painHistory of cancer?:uSurgeries, chemotherapy, or radiation?:uType of Exam?:InitialAdditional signs and symptoms?:none COVID-19, MOLECULARon 2024 SARS-CoV-2 (COVID-19) Ab IA Ql Not detected Normal Not Detected [facility] Comment on above: Result Comment: Test ing was performed using the [employer] ID NOW COVID-19 assay on the ID NOW platform. This test has not been approved for use in asymptomatic patients and its performance in this patient population has not been evaluated. Negative results do not rule out the presence of SARS-CoV-2/COVID-19. ED Prov Noteon 10-13-2024 ED Prov Note ED PROVIDER NOTE [facility] NAME: Elizabeth Cisneros AGE: 74 y.o. : 1950 VISIT DATE: 10/13/2024 CSN: [id number] PCP: Sj Motley MD Chief Complaint Patient presents with Nasal Congestion 74-year-old female patient presents ER for shortness of breath cough. Patient has history of COPD. States over the last 3 days his symptoms. No fevers nausea or emesis. 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 Watters SINUS SURGERY 12/30/2019 balloon sinuplasty - Dr. Key SKIN BIOPSY TONSILLECTOMY TRIGGER FINGER RELEASE Right 03/24/2018 RELEASE A1 TOD LEFT MIDDLE,RING, AND SMALL FINGERS WITH CORTISONE INJECTION RIGHT MIDDLE FINGER A1 TOD; Surgeon: Yonas Nguyen MD TUBAL LIGATION Family History Problem Relation Age of Onset Hypertension Father Asthma Father COPD Father Diabetes Father Hearing loss Father Heart disease Father Hyperlipidemia Father Osteoporosis Mother Hypertension Mother Arthritis Mother Cancer Mother Heart disease Mother Heart disease Maternal Grandfather Heart disease Sister Hypertension Sister Cancer Brother Asthma Brother Diabetes Brother Anesthesia problems Neg Hx Hip fracture Neg Hx Social History Socioeconomic History Marital status: Single Occupational History 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 Tobacco Use Smoking status: Former Current packs/day: 0.00 Average packs/day: 1.5 packs/day for 42.1 years (63.1 ttl pk-yrs) Types: Cigarettes Start date: 1979 Quit date: 09/17/2021 Years since quittin.0 Passive exposure: Past Smokeless tobacco: Never Tobacco comments: Cigarettes Vaping Use Vaping status: Never Used Substance and Sexual Activity Alcohol use: No Drug use: No Sexual activity: Not Currently control/protection: Pill, Diaphragm, I.U.D., Surgical Comment: hysterectomy at age 39 Social Drivers of Health Food Insecurity: No Food Insecurity (05/31/2024) Hunger Vital Sign Worried About Running Out of Food in the Last Year: Never true Ran Out of Food in the Last Year: Never true Transportation Needs: No Transportation Needs (05/31/2024) PRAPARE - Transportation Lack of Transportation (Medical): No Lack of Transportation (Non-Medical): No Housing Stability: Low Risk (05/31/2024) Housing Stability Vital Sign Unable to Pay for Housing in the Last Year: No Number of Times Moved in the Last Year: 1 Homeless in the Last Year: No Previous Medications Medication Sig acetaminophen (TYLENOL) 500 MG tablet Take 1 (one) tablet (500 mg total) by mouth every 6 (six) hours as needed for pain THREE TIMES DAILY . albuterol (PROVENTIL) 2.5 mg /3 mL (0.083 %) nebulizer solution Take 3 mL (2.5 mg total) by nebulization every 6 (six) hours as needed for wheezing . albuterol 90 mcg/actuation inhaler Inhale 1 (one) puff to 2 (two) puffs every 4 to 6 hours as needed . atenoloL (TENORMIN) 50 MG tablet Take 1 (one) tablet (50 mg total) by mouth 2 (two) times a day . [place] Saline Gel Apply topically 2 (two) times a day Apply a pea sized amount to both nostrils at bedtime and in a.m. You can use it more often.. Bevespi Aerosphere 9-4.8 mcg HFAA Inhale 2 puffs 2 (two) times a day . budesonide (PULMICORT) 0.5 mg/2 mL nebulizer solution Take 2 mL (0.5 mg total) by nebulization 2 (two) times a day . CALCITRATE 200 mg (950 mg) tablet Take 200 mg by mouth 3 (three) times a day . desvenlafaxine succinate (PRISTIQ) 100 MG 24 hr tablet Take 1 (one) tablet (10 (more content not included)... Normal [facility] POC INFLUENZA A/B - RALSon 0 10-13-2024 POC INFLUENZA A (FSED) Not detected Normal Not Detected [facility] POC INFLUENZA B (FSED) Not detected Normal Not Detected [facility] XR CHEST PA/APon 10-13-2024 XR CHEST PA/AP EXAMINATION: XR CHEST PA/AP 10/13/2024 4:33 pm HISTORY: ORDERING SYSTEM PROVIDED HISTORY: sob, TECHNOLOGIST PROVIDED HISTORY: Illness/Other Reason for exam: SOB Cancer History: cervical cancer Surgery, RadiationHistory: y Encounter Type: Initial Additional signs and symptoms: none ORDERING SYSTEM PROVIDED DIAGNOSIS CODES: COMPARISON: Chest x-ray, 04/28/2024. FINDINGS: Single view of the chest was obtained. Heart size normal. No pleural effusion. No pneumothorax. There is some bronchial wall thickening and patchy airspace opacification in the right lower lobe. Left lung appears clear. IMPRESSION: There is some bronchial wall thickening and patchy airspace opacification in the right lower lobe, concerning for possible bronchitis and mild pneumonia. DMG/ads Workstation ID: [id number] Dictated by: CHARLES HAMPTON on ThuOct 13, 2024 5:31:31 PM EST Transcribed by: MANUEL JACKSON on ThuOct 13, 2024 5:33:15 PM EST Finalized by: CHARLES HAMPTON on ThuOct 13, 2024 10:53:42 PM EST Normal [facility] Comment on above: Order Comment: Injur y/Trauma or Illness?:Injury/Trauma How long have you had these symptoms (acute/chronic)?:Acute Reason for exam?:Patient reports feeling fatigued and weak. Type of Exam?:Initial Mechanism of injury?:fell [address] CERVICAL SPINE WITHOUT CO [facility] 09-30-2024 CT CERVICAL SPINE WITHOUT CONTRAST EXAMINATION: CT CERVICAL SPINE WITHOUT CONTRAST HISTORY: ORDERING SYSTEM PROVIDED HISTORY: neck pain, TECHNOLOGIST PROVIDED HISTORY: Illness/Other Reason for exam: neck pain Encounter Type: Subsequent/Follow-up Additional signs and symptoms: headache ORDERING SYSTEM PROVIDED DIAGNOSIS CODES: R51.9 Headache M54.2 Neck pain R20.2 Paresthesias COMPARISON: None TECHNIQUE: CT cervical spine without IV contrast. Coronal and sagittal reformations were performed. Dose reduction techniques were achieved by using automated exposure control and/or adjustment of mA and/or kV according to patient size and/or use of iterative reconstruction technique. FINDINGS: SKULL BASE AND CERVICOCRANIAL JUNCTION: Visualized portions of skull base including occipital bone and occipital condyles are normal. No evidence of skull base fracture. ATLANTODENTAL INTERVAL:Normal (<3mm). BASION-DENS INTERVAL: Normal (<10mm). VERTEBRA: No fracture. DISC SPACES AND FACET JOINTS: No acute injury.Multilevel degenerative disc height loss and discogenic vertebral endplate change. Multilevel degenerative facet hypertrophy. PREVERTEBRAL SOFT TISSUES: Inspissated secretions in the sphenoid sinuses. ALIGNMENT: Multilevel grade 1 spondylolisthesis. IMPRESSION: No acute abnormality of the cervical spine. Chronic changes as above Workstation ID: [id number] Dictated by: YOKASTA GARCIA on ThuSep 30, 2024 2:28:15 PM EST Transcribed by: YOKASTA GARCIA on ThuSep 30, 2024 2:28:15 PM EST Finalized by: YOKASTA GARCIA on ThuSep 30, 2024 2:28:15 PM EST Normal [facility] Comment on above: Order Comment: Injur y/Trauma or Illness?:Illness/Other How long have you had these symptoms (acute/chronic)?:Chronic Reason for exam?:neck pain Type of Exam?:Subsequent/Follow-up MR c-spine 06/01/24 Additional signs and symptoms?:headache CT HEAD OR BRAIN WITHOUT CON TRASTon 09-30-2024 CT HEAD OR BRAIN WITHOUT CONTRAST EXAMINATION: UNENHANCED CT SCAN OF THE BRAIN 09/30/2024 HISTORY: Dx: R51.9 (Headache) 11/25/22-40MIN.APPT'S W/DR.DALIA MOTLEY Injury/Trauma or Illness?:Illness/Other headache COMPARISON FILMS: Unenhanced CT scan of the brain 06/01/2024. TECHNIQUE: 2.5 mm axial images from skull base through vertex without intravenous contrast were obtained. Sagittal and coronal reconstructions were also performed. Dose reduction techniques were achieved by using automated exposure control and/or adjustment of mA and/or kV according to patient size and/or use of iterative reconstruction technique. FINDINGS: The visualized intraorbital contents appear normal. The ventricles, sulcal, cisternal spaces seem minimally prominent. There is no mass, mass effect or midline shift. The previously seen subarachnoid hemorrhage along the right frontal lobe has resolved. No intra or extra-axial hemorrhage is seen. No acute infarct is identified. There is moderate opacification of left maxillary antrum. This seems to have improved. The mastoid air cells appear normal. There is opacification of now frontal, ethmoid air cells. The visualized mastoid air cells are normal. The calvarium appears intact. IMPRESSION: 1. No acute infarct, hemorrhage or acute intracranial injury. 2. No skull fractures. 3. Resolving left maxillary antral inflammatory changes however, there is significant inflammatory changes involving ethmoid air cells, frontal air cells and some degree of sphenoid air cells. [place] Workstation ID: [id number] Dictated by: MARIOLA PARKER on ThuSep 30, 2024 1:54:45 PM EST Transcribed by: RUBIN SAMUEL on ThuSep 30, 2024 2:11:43 PM EST Finalized by: MARIOLA PARKER on ThuSep 30, 2024 2:55:42 PM EST Normal [facility] Comment on above: Order Comment: Injur y/Trauma or Illness?:Injury/Trauma How long have you had these symptoms (acute/chronic)?:Acute Reason for exam?:Patient reports feeling fatigued and weak. Type of Exam?:Initial Mechanism of injury?:fell 1 week ago ED Prov Noteon 09-30-2024 ED Prov Note ED PROVIDER NOTE [facility] NAME: Elizabeth Cisneros AGE: 74 y.o. : 1950 VISIT DATE: 09/30/2024 CSN: [id number] PCP: Sj Motley MD Chief Complaint Patient presents with Headache Patient is a 74-year-old female with a past medical history of valvular disease, asthma, arthritis, anxiety, COPD, coronary artery disease, diabetes, GERD, hyperlipidemia, hypertension, hypothyroidism, mitral valve prolapse, who presents today for concern of headache and worsening of her neck pain. Patient states she has C3-C4 spinal stenosis and is in the process of getting a laminectomy by Dr. Collier. Patient states she has had jerking of her upper extremities for last 2 weeks and numbness and tingling pressure in her fingertips over the last few weeks which is worsened from her baseline. Patient also admits to a posterior headache with intermittent episodes of balance issues for the last couple of weeks which have improved. Patient denies any chest pain, shortness of breath, nausea, vomiting, lightheadedness, dizziness or syncope. Patient has been eating and drinking normally. Patient denies any history of recent traumatic injuries. Patient states she had a fall on May 2024 and had an L2 fracture and subarachnoid hemorrhage at that time. Patient admits to chronic lower back pain but denies any midline spinal canal tenderness, bowel or bladder continence or perianal anesthesia. 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 Watters SINUS SURGERY 12/30/2019 balloon sinuplasty - Dr. Key SKIN BIOPSY TONSILLECTOMY TRIGGER FINGER RELEASE Right 03/24/2018 RELEASE A1 TOD LEFT MIDDLE,RING, AND SMALL FINGERS WITH CORTISONE INJECTION RIGHT MIDDLE FINGER A1 TOD; Surgeon: Yonas Nguyen MD TUBAL LIGATION Family History Problem Relation Age of Onset Hypertension Father Asthma Father COPD Father Diabetes Father Hearing loss Father Heart disease Father Hyperlipidemia Father Osteoporosis Mother Hypertension Mother Arthritis Mother Cancer Mother Heart disease Mother Heart disease Maternal Grandfather Heart disease Sister Hypertension Sister Cancer Brother Asthma Brother Diabetes Brother Anesthesia problems Neg Hx Hip fracture Neg Hx Social History Socioeconomic History Marital status: Single Occupational History 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 Tobacco Use Smoking status: Former Current packs/day: 0.00 Average packs/day: 1.5 packs/day for 42.1 years (63.1 ttl pk-yrs) Types: Cigarettes Start date: 1979 Quit date: 09/17/2021 Years since quittin.0 Passive exposure: Past Smokeless tobacco: Never Tobacco comments: Cigarettes Vaping Use Vaping status: Never Used Substance and Sexual Activity Alcohol use: No Drug use: No Sexual activity: Not Currently control/protection: Pill, Diaphragm, I.U.D., Surgical Comment: hysterectomy at age 39 Social Drivers of Health Food Insecurity: No Food Insecurity (05/31/2024) Hunger Vital Sign Worried About Running Out of Food in the Last Year: Never true Ran Out of Food in the Last Year: Never true Transportation Needs: No Transportation Needs (05/31/2024) PRAPARE - Transportation Lack of Transportation (Medical): No Lack of Transportation (Non-Medical): No Housing Stability: Low Risk (05/31/2024) Housing Stability Vital Sign Unable to Pay for Housing in the Last Year: No Number of Times Moved in the Last Year: 1 Homeless in the Last Year: No (more content not included)... Normal [facility] POC BASIC METABOLIC PANEL - [facility] 09-30-2024 Chloride [Moles/Vol] 93 mmol/L Low 98-108 [facility] Comment on above: Order Comment: [facility] has implemented the eGFR calculation approach that does not have a coefficient for race that conforms to the NKF-ASN Task Force Recommendations. CO2 [Moles/Vol] 26 mmol/L Normal 21-32 [facility] Comment on above: Order Comment: [facility] has implemented the eGFR calculation approach that does not have a coefficient for race that conforms to the NKF-ASN Task Force Recommendations. Creatinine [Mass/Vol] 0.65 mg/dL Normal 0.60-1.20 [facility] Comment on above: Order Comment: [facility] has implemented the eGFR calculation approach that does not have a coefficient for race that conforms to the NKF-ASN Task Force Recommendations. Glucose [Mass/Vol] 140 mg/dL High 65-99 [facility] Comment on above: Order Comment: [facility] has implemented the eGFR calculation approach that does not have a coefficient for race that conforms to the NKF-ASN Task Force Recommendations. POC GFR 91 mL/min/1.73 m2 Normal >=60 [facility] Comment on above: Order Comment: [facility] has implemented the eGFR calculation approach that does not have a coefficient for race that conforms to the NKF-ASN Task Force Recommendations. Result Comment: Cassi mated GFR was calculated using the 2020 CKD-EPI creatinine equation. POC IONIZED CALCIUM 4.8 mg/dL Normal 4.5-5.3 [facility] Comment on above: Order Comment: [facility] has implemented the eGFR calculation approach that does not have a coefficient for race that conforms to the NKF-ASN Task Force Recommendations. Potassium [Moles/Vol] 3.8 mmol/L Normal 3.5-5.1 [facility] Comment on above: Order Comment: [facility] has implemented the eGFR calculation approach that does not have a coefficient for race that conforms to the NKF-ASN Task Force Recommendations. Sodium [Moles/Vol] 132 mmol/L Low 135-145 [facility] Comment on above: Order Comment: [facility] has implemented the eGFR calculation approach that does not have a coefficient for race that conforms to the NKF-ASN Task Force Recommendations. Urea nitrogen [Mass/Vol] 10 mg/dL Normal 8-25 [facility] Comment on above: Order Comment: [facility] has implemented the eGFR calculation approach that does not have a coefficient for race that conforms to the NKF-ASN Task Force Recommendations. POC CBC AND DIFFERENTIALon 0 - BASOPHILS ABSOLUTE COUNT 0.02 K/mcL Normal 0.00-0.30 [facility] Basophils/100 WBC (Bld) 0.4 % Normal [facility] Eosinophils (Bld) [#/Vol] 0.03 10*3/uL Normal 0.00-0.50 [facility] Eosinophils/100 WBC (Bld) 0.6 % Normal [facility] Erythrocyte distribution width (RBC) [Ratio] 13.6 % Normal 11.6-14.8 [facility] Hematocrit (Bld) [Volume fraction] 41.6 % Normal 36.0-46.0 [facility] Hemoglobin (Bld) [Mass/Vol] 14.1 g/dL Normal 12.0-16.0 [facility] IG ABSOLUTE 0.00 K/mcL Normal 0.00-0.30 [facility] IG PERCENT 0.00 % Normal [facility] Comment on above: Result Comment: The IG parameter is the percentage of metamyelocytes, myelocytes and promyelocytes. An immature granulocyte count (IG) of 1% or more suggests the possibility of infection, an IG count of 3% is very likely related to an infection. Lymphocytes (Bld) [#/Vol] 0.98 10*3/uL Normal 0.90-4.00 [facility] Lymphocytes/100 WBC (Bld) 18.1 % Normal [facility] MCH (RBC) [Entitic mass] 32.6 pg Normal 26.0-34.0 [facility] MCV (RBC) [Entitic vol] 96.3 fL Normal 80.0-100.0 [facility] MEAN CORPUSCULAR HEMOGLOBIN CONC 33.9 g/dL Normal 31.0-37.0 [facility] Monocytes (Bld) [#/Vol] 0.82 10*3/uL Normal 0.30-0.90 [facility] Monocytes/100 WBC (Bld) 15.2 % Normal [facility] NEUTROPHILS ABSOLUTE COUNT 3.55 K/mcL Normal 1.70-7.00 [facility] Neutrophils/100 WBC (Bld) 65.7 % Normal [facility] Platelet mean volume (Bld) [Entitic vol] 9.2 fL Low 9.4-12.4 [facility] Platelets (Bld) [#/Vol] 302 10*3/uL Normal 150-400 [facility] RBC (Bld) [#/Vol] 4.32 10*6/uL Normal 4.00-5.20 [facility] WBC (Bld) [#/Vol] 5.40 10*3/uL Normal 4.50-11.00 [facility] ED Prov Noteon 07-12-2024 ED Prov Note HPI: 07/12/2024, Time: @JESSICA@ Elizabeth Chacon Eddy is a 73 y.o. female presenting to the ED for acute on chronic low back pain following a fall injury back in May for which she was hospitalized and had MRI of the back showing a lumbar and a sacral fracture, beginning over 1 month ago. The complaint has been constant, moderate in severity, and worsened by changing position. No fever chills or recent instrumentation no bowel or bladder issues ROS: Pertinent positives and negatives are stated within HPI, all other systems reviewed and are negative. - PAST HISTORY - Past Medical History: @[facility]@ Past Surgical History: has a past surgical history that includes Hysterectomy (1990); INDEX FINGER SURGERY (Right); tonsillectomy; Eye surgery (Bilateral); Cataract extraction w/ intraocular lens implant (Bilateral); CORE DECOMPRESSION OF LEFT FEMEROL HEAD; Rotator cuff repair (Left); Hands, Dupytrens, Trigger Finger, Carpal Tunnel (Right); Carpal tunnel release (Left); Muscle biopsy; Colon surgery; ILEOSTOMY REVERSAL; Sinus surgery; Trigger Finger Release (Right, 03/24/2018); ARTHROPLASTY HIP ROBOTIC (Left, 10/21/2021); Sinus surgery (12/30/2019); Appendectomy; Tubal ligation; Skin biopsy; and adenoidectomy (1994). Social History: reports that she quit smoking about 2 years ago. Her smoking use included cigarettes. She started smoking about 44 years ago. She has a 63.1 pack-year smoking history. She has been exposed to tobacco smoke. She has never used smokeless tobacco. She reports that she does not drink alcohol and does not use drugs. Family History: family history includes Arthritis in her mother; Asthma in her brother and father; COPD in her father; Cancer in her brother and mother; Diabetes in her brother and father; Hearing loss in her father; Heart disease in her father, maternal grandfather, mother, and sister; Hyperlipidemia in her father; Hypertension in her father, mother, and sister; Osteoporosis in her mother. The patient's home medications have been reviewed. Allergies: Penicillin g, Sulfa (sulfonamide antibiotics), Trazodone, Celecoxib, Levofloxacin, [place], Niacin, Sulfites, and Cephalexin ------ RESULTS ----- All laboratory and radiology results have been personally reviewed by myself LABS: Results for orders placed or performed during the hospital encounter of 05/31/24 Vitamin D, Total, 25-OH Collection Time: 05/31/24 8:43 PM Result Value Ref Range Vit D, 25-Hydroxy 54 20 - 100 ng/mL Basic Metabolic Panel Collection Time: 05/31/24 8:43 PM Result Value Ref Range Sodium 134 (L) 135 - 145 mmol/L Potassium 3.9 3.5 - 5.1 mmol/L Chloride 92 (L) 98 - 108 mmol/L Bicarbonate 28 21 - 32 mmol/L Anion Gap 18 10 - 20 mmol/L Glucose 100 (H) 65 - 99 mg/dL BUN 15 8 - 25 mg/dL Creatinine 0.96 0.60 - 1.10 mg/dL eGFR 62 >=60 mL/min/1.73 m2 BUN/Creatinine Ratio 15.6 10.0 - 20.0 Calcium 10.3 (H) 8.4 - 10.2 mg/dL CBC Auto Differential Collection Time: 05/31/24 8:43 PM Result Value Ref Range WBC 7.14 4.50 - 11.00 K/mcL RBC 4.27 4.00 - 5.20 M/mcL Hemoglobin 13.6 12.0 - 16.0 g/dL Hematocrit 40.3 36.0 - 46.0 % MCV 94.4 80.0 - 100.0 fL MCH 31.9 26.0 - 34.0 pg MCHC 33.7 31.0 - 37.0 g/dL Platelets 336 150 - 400 K/mcL RDW - CV 14.7 11.6 - 14.8 % MPV 9.4 9.4 - 12.4 fL Neutrophils 65.1 % Lymphocytes 20.7 % Monocytes 12.9 % Eosinophils 0.6 % Basophils 0.6 % IG Percent 0.10 % Neutrophils Abs 4.65 1.70 - 7.00 K/mcL Lymphocytes Abs 1.48 0.90 - 4.00 K/mcL Monocytes Abs 0.92 (H) 0.30 - 0.90 K/mcL Eosinophils Abs 0.04 0.00 - 0.50 K/mcL Basophils Abs 0.04 0.00 - 0.30 K/mcL IG Absolute 0.01 0.00 - 0.30 K/mcL Nucleated RBC 0.0 % Nucleated RBC Abs 0.00 0.00 - 0.00 K/mcL Urinalysis Collection Time: 06/02/24 9:34 AM Result Value Ref Range Color, Urine Yellow Colorless, Yellow Clarity, Urine Clear Clear Specific [place] 1.010 1.005 - 1.025 pH, Urine 6.5 5.0 - 7.0 Protein, Urine Negative Negative mg/dL Glucose, Urine Negative Negative mg/dL Ketones, Urine Negative Negative mg/dL Bilirubin, Urine Negative Negative Urobilinogen, Urine <2.0 <2.0 mg/dL Blood, Urine Negative Negative Nitrite, Urine Negative Negative Leukocyte Esterase, Urine Negative Negative WBCs, Urine 1 0 - 5 /hpf RBCs, Urine 1 0 - 3 /hpf Bacteria, Urine None Seen None Seen /hpf Squamous Epithelial <1 0 - 4 /hpf Transitional Epithelial <1 0 - 1 /hpf RADIOLOGY: Interpreted by Radiologist. No orders to display --- NURSING NOTES AND VITALS REVIEWED ----- The nursing notes within the ED encounter and vital signs as below have been reviewed. BP (!) 145/93 (BP Location: Right arm, Patient Position: Sitting) Pulse 75 Temp 97.9 degrees F (36.6 (more content not included)... Normal [facility] 06-02-2024 [facility] MR HIP RIGHT WITHOUT CONTRAS Ton 06-02-2024 MR HIP RIGHT WITHOUT CONTRAST [facility] Comment on above: Order Comment: Injur y/Trauma or Illness?:Injury/TraumaHow long have you had these symptoms (acute/chronic)?:AcuteReason for exam?:right hip pain following fall: abreviated pelvis protocol/ ok per dr noblesType of Exam?:UnknownMechanism of injury?:fall MR LUMBAR SPINE WITHOUT CONT RASTon 06-02-2024 MR LUMBAR SPINE WITHOUT CONTRAST [facility] Comment on above: Order Comment: Injur y/Trauma or Illness?:Injury/TraumaHow long have you had these symptoms (acute/chronic)?:AcuteReason for exam?:low back pain with right hip pain following fall:Type of Exam?:UnknownMechanism of injury?:fall URINALYSISon 06-02-2024 BACTERIA, URINE None Seen Normal None Seen [facility] Comment on above: Order Comment: Micro scopic examination is performed on all urinalysis samples and only positive findings are reported. The test for blood on the chemical analytic portion of urinalysis may also be positive due to hemoglobinuria and myoglobinuria and if red blood cells are present they are quantified by microscopic examination. Performed By: #### 4 [id number] #### LAB [address] [address] Jean Gary M.D. [id number] BILIRUBIN, URINE Negative Normal Negative [facility] Comment on above: Order Comment: Micro scopic examination is performed on all urinalysis samples and only positive findings are reported. The test for blood on the chemical analytic portion of urinalysis may also be positive due to hemoglobinuria and myoglobinuria and if red blood cells are present they are quantified by microscopic examination. Performed By: #### 4 [id number] #### LAB [address] [address] Jean Gary M.D. [id number] BLOOD, URINE Negative Normal Negative [facility] Comment on above: Order Comment: Micro scopic examination is performed on all urinalysis samples and only positive findings are reported. The test for blood on the chemical analytic portion of urinalysis may also be positive due to hemoglobinuria and myoglobinuria and if red blood cells are present they are quantified by microscopic examination. Performed By: #### 4 [id number] #### LAB [address] [address] Jean Gary M.D. [id number] Clarity (U) Clear Normal Clear [facility] Comment on above: Order Comment: Micro scopic examination is performed on all urinalysis samples and only positive findings are reported. The test for blood on the chemical analytic portion of urinalysis may also be positive due to hemoglobinuria and myoglobinuria and if red blood cells are present they are quantified by microscopic examination. Performed By: #### 4 [id number] #### LAB [address] [address] Jean Gary M.D. [id number] Color (U) Yellow Normal Colorless, Yellow [facility] Comment on above: Order Comment: Micro scopic examination is performed on all urinalysis samples and only positive findings are reported. The test for blood on the chemical analytic portion of urinalysis may also be positive due to hemoglobinuria and myoglobinuria and if red blood cells are present they are quantified by microscopic examination. Performed By: #### 4 [id number] #### LAB [address] [address] Jean Gary M.D. [id number] Glucose Ql (U) Negative Normal Negative [facility] Comment on above: Order Comment: Micro scopic examination is performed on all urinalysis samples and only positive findings are reported. The test for blood on the chemical analytic portion of urinalysis may also be positive due to hemoglobinuria and myoglobinuria and if red blood cells are present they are quantified by microscopic examination. Performed By: #### 4 [id number] #### LAB [address] [place] [address] Jean Gary M.D. [id number] Ketones Ql (U) Negative Normal Negative [facility] Comment on above: Order Comment: Micro scopic examination is performed on all urinalysis samples and only positive findings are reported. The test for blood on the chemical analytic portion of urinalysis may also be positive due to hemoglobinuria and myoglobinuria and if red blood cells are present they are quantified by microscopic examination. Performed By: #### 4 [id number] #### LAB [address] [place] [address] Jean Gary M.D. [id number] Leukocyte esterase Test strip Ql (U) Negative Normal Negative [facility] Comment on above: Order Comment: Micro scopic examination is performed on all urinalysis samples and only positive findings are reported. The test for blood on the chemical analytic portion of urinalysis may also be positive due to hemoglobinuria and myoglobinuria and if red blood cells are present they are quantified by microscopic examination. Performed By: #### 4 [id number] #### LAB [address] [address] Jean Gary M.D. [id number] NITRITE, URINE Negative Normal Negative [facility] Comment on above: Order Comment: Micro scopic examination is performed on all urinalysis samples and only positive findings are reported. The test for blood on the chemical analytic portion of urinalysis may also be positive due to hemoglobinuria and myoglobinuria and if red blood cells are present they are quantified by microscopic examination. Performed By: #### 4 [id number] #### LAB [address] [address] Jean Gary M.D. [id number] pH (U) 6.5 [pH] Normal 5.0-7.0 [facility] Comment on above: Order Comment: Micro scopic examination is performed on all urinalysis samples and only positive findings are reported. The test for blood on the chemical analytic portion of urinalysis may also be positive due to hemoglobinuria and myoglobinuria and if red blood cells are present they are quantified by microscopic examination. Performed By: #### 4 [id number] #### LAB [address] [place] [address] Jean Gary M.D. [id number] PROTEIN, URINE Negative Normal Negative [facility] Comment on above: Order Comment: Micro scopic examination is performed on all urinalysis samples and only positive findings are reported. The test for blood on the chemical analytic portion of urinalysis may also be positive due to hemoglobinuria and myoglobinuria and if red blood cells are present they are quantified by microscopic examination. Performed By: #### 4 [id number] #### LAB [address] [address] Jean Gary M.D. [id number] RBC LM.HPF (Urine sed) [#/Area] 1 /[HPF] Normal 0-3 [facility] Comment on above: Order Comment: Micro scopic examination is performed on all urinalysis samples and only positive findings are reported. The test for blood on the chemical analytic portion of urinalysis may also be positive due to hemoglobinuria and myoglobinuria and if red blood cells are present they are quantified by microscopic examination. Performed By: #### 4 [id number] #### LAB [address] [place] [address] Jean Gary M.D. [id number] Specific gravity (U) [Rel density] 1.010 Normal 1.005-1.025 [facility] Comment on above: Order Comment: Micro scopic examination is performed on all urinalysis samples and only positive findings are reported. The test for blood on the chemical analytic portion of urinalysis may also be positive due to hemoglobinuria and myoglobinuria and if red blood cells are present they are quantified by microscopic examination. Performed By: #### 4 [id number] #### LAB [address] [address] Jean Gary M.D. [id number] SQUAMOUS EPITHELIAL < Normal 0-4 [facility] Comment on above: Order Comment: Micro scopic examination is performed on all urinalysis samples and only positive findings are reported. The test for blood on the chemical analytic portion of urinalysis may also be positive due to hemoglobinuria and myoglobinuria and if red blood cells are present they are quantified by microscopic examination. Performed By: #### 4 6625 #### LAB [address] [address] Jean Gary M.D. [id number] TRANSITIONAL EPITHELIAL < Normal 0-1 [facility] Comment on above: Order Comment: Micro scopic examination is performed on all urinalysis samples and only positive findings are reported. The test for blood on the chemical analytic portion of urinalysis may also be positive due to hemoglobinuria and myoglobinuria and if red blood cells are present they are quantified by microscopic examination. Performed By: #### 4 6625 #### LAB [address] [address] Jean Gary M.D. [id number] UROBILINOGEN, URINE <2.0 Normal <2.0 [facility] Comment on above: Order Comment: Micro scopic examination is performed on all urinalysis samples and only positive findings are reported. The test for blood on the chemical analytic portion of urinalysis may also be positive due to hemoglobinuria and myoglobinuria and if red blood cells are present they are quantified by microscopic examination. Performed By: #### 4 [id number] #### LAB [address] [place], [place] [address] Jean Gary M.D. [id number] WBC LM.HPF (Urine sed) [#/Area] 1 /[HPF] Normal 0-5 [facility] Comment on above: Order Comment: Micro scopic examination is performed on all urinalysis samples and only positive findings are reported. The test for blood on the chemical analytic portion of urinalysis may also be positive due to hemoglobinuria and myoglobinuria and if red blood cells are present they are quantified by microscopic examination. Performed By: #### 4 [id number] #### LAB [address] [place], [place] [address] Jean Gary M.D. [id number] CONSULTon 06-01-2024 CONSULT Normal [facility] CT HEAD OR BRAIN WITHOUT CON TRASTon 06-01-2024 CT HEAD OR BRAIN WITHOUT CONTRAST Normal [facility] Comment on above: Order Comment: Injur y/Trauma or Illness?:Injury/TraumaHow long have you had these symptoms (acute/chronic)?:AcuteReason for exam?:f/u SAHType of Exam?:InitialMechanism of injury?:. MR CERVICAL SPINE WITHOUT CO NTRASTon 06-01-2024 MR CERVICAL SPINE WITHOUT CONTRAST Normal [facility] Comment on above: Order Comment: Injur y/Trauma or Illness?:Injury/TraumaHow long have you had these symptoms (acute/chronic)?:AcuteReason for exam?:neck pain following fall yesterday:Type of Exam?:UnknownMechanism of injury?:fall BASIC METABOLIC PANELon 05-17 Anion gap [Moles/Vol] 18 mmol/L Normal - [facility] Comment on above: Order Comment: [facility] has implemented the eGFR calculation approach that does not have a coefficient for race that conforms to the NKF-ASN Task Force Recommendations. Performed By: #### 4 [id number] #### LAB [address] [place], [place] [address] Jean Gary M.D. [id number] Calcium [Mass/Vol] 10.3 mg/dL High 8.4-10.2 [facility] [place] Comment on above: Order Comment: [facility] has implemented the eGFR calculation approach that does not have a coefficient for race that conforms to the NKF-ASN Task Force Recommendations. Performed By: #### 4 6124 #### LAB [address] [place], [place] [address] Jean Gary M.D. [id number] Chloride [Moles/Vol] 92 mmol/L Low 98-108 [facility] Comment on above: Order Comment: [facility] has implemented the eGFR calculation approach that does not have a coefficient for race that conforms to the NKF-ASN Task Force Recommendations. Performed By: #### 4 6124 #### LAB [address] [id number] Jean Gary M.D. [id number] Creatinine [Mass/Vol] 0.96 mg/dL Normal 0.60-1.10 [facility] Comment on above: Order Comment: [facility] has implemented the eGFR calculation approach that does not have a coefficient for race that conforms to the NKF-ASN Task Force Recommendations. Performed By: #### 4 6124 #### LAB [address] [address] Jean Gary M.D. [id number] EGFR 62 mL/min/1.73 m2 Normal >=60 [facility] Comment on above: Order Comment: [facility] has implemented the eGFR calculation approach that does not have a coefficient for race that conforms to the NKF-ASN Task Force Recommendations. Result Comment: Cassi mated GFR was calculated using the 2020 CKD-EPI creatinine equation. Performed By: #### 4 [id number] #### LAB [address] [address] Jean Gary M.D. [id number] Glucose [Mass/Vol] 100 mg/dL High 65-99 [facility] [place] Comment on above: Order Comment: [facility] has implemented the eGFR calculation approach that does not have a coefficient for race that conforms to the NKF-ASN Task Force Recommendations. Performed By: #### 4 6124 #### LAB [address] [address] Jean Gary M.D. [id number] HCO3 (Bld) [Moles/Vol] 28 mmol/L Normal 21-32 [facility] Comment on above: Order Comment: [facility] has implemented the eGFR calculation approach that does not have a coefficient for race that conforms to the NKF-ASN Task Force Recommendations. Performed By: #### 4 6124 #### LAB [address] [place], [place] [address] Jean Gary M.D. [id number] Potassium [Moles/Vol] 3.9 mmol/L Normal 3.5-5.1 [facility] Comment on above: Order Comment: [facility] has implemented the eGFR calculation approach that does not have a coefficient for race that conforms to the NKF-ASN Task Force Recommendations. Performed By: #### 4 6124 #### LAB [address] [place], [place] [address] Jean Gary M.D. [id number] Sodium [Moles/Vol] 134 mmol/L Low 135-145 [facility] [place] Comment on above: Order Comment: [facility] has implemented the eGFR calculation approach that does not have a coefficient for race that conforms to the NKF-ASN Task Force Recommendations. Performed By: #### 4 6124 #### LAB [address] [place], [place] [address] Jean Gary M.D. [id number] Urea nitrogen [Mass/Vol] 15 mg/dL Normal 8-25 [facility] Comment on above: Order Comment: [facility] has implemented the eGFR calculation approach that does not have a coefficient for race that conforms to the NKF-ASN Task Force Recommendations. Performed By: #### 4 6124 #### LAB [address] [place], [place] [address] Jean Gary M.D. [id number] Urea nitrogen/Creatinine [Mass ratio] 15.6 mg/mg Normal 10.0-20.0 [facility] Comment on above: Order Comment: [facility] has implemented the eGFR calculation approach that does not have a coefficient for race that conforms to the NKF-ASN Task Force Recommendations. Performed By: #### 4 6124 #### LAB [address] [address] Jean Gary M.D. [id number] CBC WITH AUTO DIFFERENTIALon 05-31-2024 AUTO NRBC 0.0 % [facility] Comment on above: Performed By: #### L [id number] #### LAB [address] [address] Jean Gary M.D. [id number] AUTO NRBC ABS COUNT 0.00 K/mcL Normal 0.00-0.00 [facility] Comment on above: Performed By: #### L [id number] #### LAB [address] [address] Jean Gary M.D. [id number] BASOPHILS ABSOLUTE COUNT 0.04 K/mcL Normal 0.00-0.30 [facility] Comment on above: Performed By: #### L [id number] #### LAB [address] [address] Jean Gary M.D. [id number] Basophils/100 WBC (Bld) 0.6 % [facility] Comment on above: Performed By: #### L [id number] #### LAB [address] [address] Jean Gary M.D. [id number] Eosinophils (Bld) [#/Vol] 0.04 10*3/uL Normal 0.00-0.50 [facility] Comment on above: Performed By: #### L [id number] #### LAB [address] [address] Jean Gary M.D. [id number] Eosinophils/100 WBC (Bld) 0.6 % [facility] Comment on above: Performed By: #### L [id number] #### LAB [address] [address] Jean Gary M.D. [id number] Erythrocyte distribution width (RBC) [Ratio] 14.7 % Normal 11.6-14.8 [facility] Comment on above: Performed By: #### L [id number] #### LAB [address] [address] Jean Gary M.D. [id number] Hematocrit (Bld) [Volume fraction] 40.3 % Normal 36.0-46.0 [facility] Comment on above: Performed By: #### L [id number] #### LAB [address] [address] Jean Gary M.D. [id number] Hemoglobin (Bld) [Mass/Vol] 13.6 g/dL Normal 12.0-16.0 [facility] Comment on above: Performed By: #### L [id number] #### LAB [address] [address] Jean Gary M.D. [id number] IG ABSOLUTE 0.01 K/mcL Normal 0.00-0.30 [facility] Comment on above: Performed By: #### L [id number] #### LAB [address] [place] [address] Jean Gary M.D. [id number] IG PERCENT 0.10 % Normal [facility] Comment on above: Result Comment: The IG parameter is the percentage of metamyelocytes, myelocytes and promyelocytes. An immature granulocyte count (IG) of 1% or more suggests the possibility of infection, an IG count of 3% is very likely related to an infection. Performed By: #### L [id number] #### LAB [address] [place] [address] Jean Gary M.D. [id number] Lymphocytes (Bld) [#/Vol] 1.48 10*3/uL Normal 0.90-4.00 [facility] Comment on above: Performed By: #### L [id number] #### LAB [address] [place] [address] Jean Gary M.D. [id number] Lymphocytes/100 WBC (Bld) 20.7 % Normal [facility] Comment on above: Performed By: #### L [id number] #### LAB [address] [address] Jean Gary M.D. [id number] MCH (RBC) [Entitic mass] 31.9 pg Normal 26.0-34.0 [facility] Comment on above: Performed By: #### L [id number] #### LAB [address] [address] Jean Gary M.D. [id number] MCV (RBC) [Entitic vol] 94.4 fL Normal 80.0-100.0 [facility] Comment on above: Performed By: #### L [id number] #### LAB [address] [address] Jean Gary M.D. [id number] MEAN CORPUSCULAR HEMOGLOBIN CONC 33.7 g/dL Normal 31.0-37.0 [facility] Comment on above: Performed By: #### L [id number] #### LAB [address] [address] Jean Gary M.D. [id number] Monocytes (Bld) [#/Vol] 0.92 10*3/uL High 0.30-0.90 [facility] Comment on above: Performed By: #### L [id number] #### LAB [address] [address] Jean Gary M.D. [id number] Monocytes/100 WBC (Bld) 12.9 % Normal [facility] Comment on above: Performed By: #### L [id number] #### LAB [address] [address] Jean Gary M.D. [id number] NEUTROPHILS ABSOLUTE COUNT 4.65 K/mcL Normal 1.70-7.00 [facility] Comment on above: Performed By: #### L [id number] #### LAB [address] [address] Jean Gary M.D. [id number] Neutrophils/100 WBC (Bld) 65.1 % Normal [facility] Comment on above: Performed By: #### L [id number] ####[facility] [address] [address] Jean Gary M.D. [id number] Platelet mean volume (Bld) [Entitic vol] 9.4 fL Normal 9.4-12.4 [facility] Comment on above: Performed By: #### L [id number] ####[facility] [address] [address] Jean Gary M.D. [id number] Platelets (Bld) [#/Vol] 336 10*3/uL Normal 150-400 [facility] Comment on above: Performed By: #### L [id number] ####[facility] [address] [address] Jean Gary M.D. [id number] RBC (Bld) [#/Vol] 4.27 10*6/uL Normal 4.00-5.20 [facility] Comment on above: Performed By: #### L [id number] ####[facility] [address] [address] Jean Gary M.D. [id number] WBC (Bld) [#/Vol] 7.14 10*3/uL Normal 4.50-11.00 [facility] Comment on above: Performed By: #### L [id number] #### LAB [address] [place] [address] Jean Gary M.D. [id number] CT CERVICAL SPINE WITHOUT CO NTRASTon 05-31-2024 CT CERVICAL SPINE WITHOUT CONTRAST EXAMINATION: CT CERVICAL SPINE WITHOUT CONTRAST HISTORY: ORDERING SYSTEM PROVIDED HISTORY: Neck pain, TECHNOLOGIST PROVIDED HISTORY: Injury/Trauma Reason for exam: mechanical fall today with dizziness neck pain and headache Encounter Type: Initial Mechanism of injury: mechanical fall ORDERING SYSTEM PROVIDED DIAGNOSIS CODES: COMPARISON: None TECHNIQUE: CT cervical spine without contrast. Sagittal and coronal reformats. Dose reduction techniques were achieved by using automated exposure control and/or adjustment of mA and/or kV according to patient size and/or use of iterative reconstruction technique. FINDINGS: There are moderate/severe degenerative changes of the cervical and upper thoracic spine. There is some straightening of the normal lordosis in the upper and mid cervical spine. There are some mild degenerative anterolistheses at C4-C5 and C5-C6. The predental space and prevertebral soft tissues are within normal limits. The relative heights of the cervical vertebra are maintained. There is no acute fracture seen or any traumatic subluxation. IMPRESSION: 1. Moderate/severe cervical and upper thoracic spondylosis. 2. No acute traumatic finding status post fall. No fracture or traumatic subluxation. Workstation ID: [id number] Dictated by: KYRIE CUELLO on ThuMay 31, 2024 4:54:09 PM EDT Transcribed by: KYRIE CUELLO on ThuMay 31, 2024 4:54:09 PM EDT Finalized by: KYRIE CUELLO on ThuMay 31, 2024 4:54:09 PM EDT [facility] Comment on above: Order Comment: Injur y/Trauma or Illness?:Injury/Trauma How long have you had these symptoms (acute/chronic)?:Acute Reason for exam?:Patient reports feeling fatigued and weak. Type of Exam?:Initial Mechanism of injury?:fell [address] HEAD OR BRAIN WITHOUT CON TRASTon 05-31-2024 CT HEAD OR BRAIN WITHOUT CONTRAST EXAMINATION: CT HEAD OR BRAIN WITHOUT CONTRAST HISTORY: ORDERING SYSTEM PROVIDED HISTORY: Head injury, TECHNOLOGIST PROVIDED HISTORY: Injury/Trauma Reason for exam: mechanical fall today with dizziness neck pain and headache Encounter Type: Initial Mechanism of injury: mechanical fall ORDERING SYSTEM PROVIDED DIAGNOSIS CODES: COMPARISON: None TECHNIQUE: CT examination of the head without IV contrast. Dose reduction techniques were achieved by using automated exposure control and/or adjustment of mA and/or kV according to patient size and/or use of iterative reconstruction technique. FINDINGS: There is a small posttraumatic scalp contusion/hematoma posteriorly on the right. There is mild/moderate generalized atrophy. There is a tiny amount of acute subarachnoid hemorrhage along the anterolateral and superior aspect of the right frontal lobe. No mass, large vessel infarct or hydrocephalus is evident. No skull fracture is seen. There is some sinus mucosal thickening along with some retention cyst formation in the left maxillary antrum. There is evidence of prior bilateral sinus surgery. The mastoid air cells and middle ear cavities are clear. IMPRESSION: 1. Small posttraumatic scalp contusion/hematoma posteriorly on the right. 2. Tiny/small amount of acute subarachnoid hemorrhage along the anterolateral and superior margin of the right frontal lobe. 3. Mild/moderate atrophy. 4. Sinus mucosal changes typical of chronic sinusitis and evidence of prior bilateral sinus surgery. I (Kyrie Cuello) personally discussed the critical results of this examination with GADIEL SIMON over the telephone at approximately 16:50 on 05/31/2024. Workstation ID: [id number] Dictated by: KYRIE CUELLO on ThuMay 31, 2024 4:50:57 PM EDT Transcribed by: KYRIE CUELLO on ThuMay 31, 2024 4:50:57 PM EDT Finalized by: KYRIE CUELLO on ThuMay 31, 2024 4:50:57 PM EDT [facility] Comment on above: Order Comment: Injur y/Trauma or Illness?:Injury/Trauma How long have you had these symptoms (acute/chronic)?:Acute Reason for exam?:Patient reports feeling fatigued and weak. Type of Exam?:Initial Mechanism of injury?:fell [address] LUMBAR SPINE WITHOUT CONT [facility] 05-31-2024 CT LUMBAR SPINE WITHOUT CONTRAST EXAMINATION: CT LUMBAR SPINE WITHOUT CONTRAST HISTORY: ORDERING SYSTEM PROVIDED HISTORY: Back pain, TECHNOLOGIST PROVIDED HISTORY: Injury/Trauma Reason for exam: lumbar pain post mechanical fall today Encounter Type: Initial Mechanism of injury: fall ORDERING SYSTEM PROVIDED DIAGNOSIS CODES: COMPARISON: Radiographs of the lumbar spine done 05/21/2024 TECHNIQUE: CT lumbar spine without contrast. Dose reduction techniques were achieved by using automated exposure control and/or adjustment of mA and/or kV according to patient size and/or use of iterative reconstruction technique. FINDINGS: The bones are osteopenic/osteoporoti c. There is mild/moderate lower thoracic and lumbar spondylosis. There are mild/moderate compression deformities/fractures of the superior endplates of T12 and L2. The T12 compression fracture appears stable in likely old/chronic. The L2 compression fracture appears worsened from 05/21/2024 and is likely subacute. There is some retropulsion of the fractures and mild compromise of the central canal. There is mild stable degenerative anterolisthesis of L4 on L5. The heights of the lower thoracic and lumbar vertebra otherwise are maintained. There is no acute fracture seen or any acute traumatic subluxation. IMPRESSION: 1. Mild/moderate worsening subacute compression fracture of the superior endplate of L2, with now around 40-50% loss in height of the L2 vertebral body and with some mild retropulsion of the fracture and mild compromise of the central canal. 2. Mild stable chronic compression fracture of the superior endplate of T12. 3. Osteopenia/osteoporosi s. 4. Mild/moderate lower thoracic and lumbar spondylosis. Workstation ID: [id number] Dictated by: KYRIE CUELLO on ThuMay 31, 2024 5:01:52 PM EDT Transcribed by: KYRIE CUELLO on ThuMay 31, 2024 5:01:52 PM EDT Finalized by: KYRIE CEULLO on ThuMay 31, 2024 5:01:52 PM EDT Normal [facility] Comment on above: Order Comment: Injur y/Trauma or Illness?:Injury/Trauma How long have you had these symptoms (acute/chronic)?:Acute Reason for exam?:Patient reports feeling fatigued and weak. Type of Exam?:Initial Mechanism of injury?:fell [address] THORACIC SPINE WITHOUT CO NTRASTon 05-31-2024 CT THORACIC SPINE WITHOUT CONTRAST Normal [facility] Comment on above: Order Comment: Injur y/Trauma or Illness?:Injury/TraumaHow long have you had these symptoms (acute/chronic)?:AcuteReason for exam?:fall, painType of Exam?:InitialMechanism of injury?:fall ED Prov Noteon 05-31-2024 ED Prov Note Normal [facility] ED Prov Note ED PROVIDER NOTE [facility] NAME: Elizabeth Cisneros AGE: 73 y.o. : 1950 VISIT DATE: 05/31/2024 CSN: [id number] PCP: Sj Motley MD Chief Complaint Patient presents with Fall Patient is a 73-year-old female with a past medical history of anxiety, COPD, diabetes, GERD, hypertension, hyperlipidemia and asthma who presents today for concern of mechanical fall. Patient states she slipped on rain and fell back and hit the back of her head and has a large goose egg. Patient currently endorsing bilateral lumbar pain but denies any midline spinal canal tenderness, bowel or bladder continence or perianal anesthesia. Patient denies any associated chest pain, shortness of breath, lightheadedness, dizziness or syncope. Patient has additional musculoskeletal injuries. Patient not take any blood thinners. Past Medical History: Diagnosis Date Anemia 03/2016 Anxiety Arrhythmia Arthritis Asthma ASVD (arteriosclerotic vascular disease) Bruises easily Carpal tunnel syndrome Cataracts, bilateral Cervical cancer (HCC) 06/1991 Clostridium difficile infection 1999 COPD (chronic obstructive pulmonary disease) (HCC) Coronary artery disease Depression Diabetes mellitus (HCC) Borderline GERD (gastroesophageal reflux disease) 05/20/2016 Heart murmur Hyperlipidemia Hypertension Hypothyroidism (acquired) 05/20/2016 Injury of back Mitral valve prolapse Osteoporosis 11/25/2022 Squamous cell skin cancer Trigger finger Past Surgical History: Procedure Laterality Date ADENOIDECTOMY 1994 APPENDECTOMY ARTHROPLASTY HIP ROBOTIC EUGENE Left 10/21/2021 Surgeon: Jovanna Valencia MD CARPAL TUNNEL RELEASE Left CATARACT EXTRACTION W/ INTRAOCULAR LENS IMPLANT Bilateral COLON SURGERY WITH ILEOSTOMY CORE DECOMPRESSION OF LEFT FEMEROL HEAD EYE SURGERY Bilateral LASER TO EYES FOR GLAUCOMA HANDS, DUPYTRENS, TRIGGER FINGER, CARPAL TUNNEL Right HYSTERECTOMY 1990 ILEOSTOMY REVERSAL INDEX FINGER SURGERY Right MUSCLE BIOPSY ROTATOR CUFF REPAIR Left SINUS SURGERY January 2018 and nik bullosa resection - Dr. Watters SINUS SURGERY 12/30/2019 balloon sinuplasty - Dr. Key SKIN BIOPSY TONSILLECTOMY TRIGGER FINGER RELEASE Right 03/24/2018 RELEASE A1 TOD LEFT MIDDLE,RING, AND SMALL FINGERS WITH CORTISONE INJECTION RIGHT MIDDLE FINGER A1 TOD; Surgeon: Yonas Nguyen MD TUBAL LIGATION Family History Problem Relation Age of Onset Hypertension Father Asthma Father COPD Father Diabetes Father Hearing loss Father Heart disease Father Hyperlipidemia Father Osteoporosis Mother Hypertension Mother Arthritis Mother Cancer Mother Heart disease Mother Heart disease Maternal Grandfather Heart disease Sister Hypertension Sister Cancer Brother Asthma Brother Diabetes Brother Anesthesia problems Neg Hx Hip fracture Neg Hx Social History Socioeconomic History Marital status: Single Tobacco Use Smoking status: Former Current packs/day: 0.00 Average packs/day: 1.5 packs/day for 42.1 years (63.1 ttl pk-yrs) Types: Cigarettes Start date: 1979 Quit date: 09/17/2021 Years since quittin.7 Passive exposure: Past Smokeless tobacco: Never Tobacco comments: Cigarettes Vaping Use Vaping status: Never Used Substance and Sexual Activity Alcohol use: No Drug use: No Sexual activity: Not Currently control/protection: Pill, Diaphragm, I.U.D., Surgical Comment: hysterectomy at age 39 Previous Medications Medication Sig acetaminophen (TYLENOL) 500 MG tablet Take 1 (one) tablet (500 mg total) by mouth every 6 (six) hours as needed for pain THREE TIMES DAILY . albuterol (PROVENTIL) 2.5 mg /3 mL (0.083 %) nebulizer solution Take 3 mL (2.5 mg total) by nebulization every 6 (six) hours as needed for wheezing . amantadine HCL (SYMMETREL) 100 mg capsule atenoloL (TENORMIN) 50 MG tablet Take 1 (one) tablet (50 mg total) by mouth 2 (two) times a day . atogepant (Qulipta) 60 mg Tab Take 1 (one) tablet (60 mg total) by mouth daily . [place] Saline Gel Apply topically 2 (two) times a day Apply a pea sized amount to both nostrils at bedtime and in a.m. You can use it more often.. Bevespi Aerosphere 9-4.8 mcg HFAA Inhale 2 puffs 2 (two) times a day . budesonide (PULMICORT) 0.5 mg/2 mL nebulizer solution Take 2 mL (0.5 mg total) by nebulization 2 (two) times a day . CALCITRATE 200 mg (950 mg) tablet Take 200 mg by mouth 3 (three) times a day . desvenlafaxine succinate (PRISTIQ) 50 MG 24 hr tablet Take 1 (one) tablet (50 mg total) by mouth daily . diclofenac sodium 1% (VOLTAREN) 1 % Gel Apply topically 4 (four) times a day as needed for pain . Fish OiL 1,200 (144-216) mg cap Take 1 capsule by mouth 3 (three) times a day . fluticasone propionate (FLONASE) 50 mcg/actuation nasal spray Instill 2 (two) sprays into each nostril 2 (two) times a day . fo (more content not included)... [facility] H AND Pancho 05-31-2024 H AND P [facility] VITAMIN D, TOTAL, 25-OHon VITAMIN D 25-HYDROXY 54 ng/mL Normal 20-100 [facility] Comment on above: Order Comment: Vitam in D Expected ValuesDeficiency: 0-10Insufficiency: 10-20Sufficient: 20-100Toxicity: >100 Performed By: #### [id number] ####[facility] [place] [id number] Jean Gary M.D. [id number] XR LUMBAR SPINE AP/LAT WITH OBLIQUESon 05-21-2024 XR LUMBAR SPINE AP/LAT WITH OBLIQUES EXAMINATION: XR LUMBAR SPINE AP/LAT WITH OBLIQUES; XR PELVIS 1 VIEW (STANDARD) 05/21/2024 3:12 pm HISTORY: ORDERING SYSTEM PROVIDED HISTORY: Fall, TECHNOLOGIST PROVIDED HISTORY: Injury/Trauma Reason for exam: Fall, Somatic dysfunction of lumbar region, Lumbar spondylosis, Lumbosacral spondylosis without myelopathy Cancer History: cervical cancer Surgery, RadiationHistory: y Encounter Type: Initial Mechanism of injury: fall ORDERING SYSTEM PROVIDED DIAGNOSIS CODES: M99.03 Somatic dysfunction of lumbar region M47.816 Lumbar spondylosis M47.817 Lumbosacral spondylosis without myelopathy COMPARISON: CT chest 09/09/2023. Chest radiograph 04/28/2024. FINDINGS: Lumbar spine: Normal lumbar spine alignment. Mild superior endplate compression fracture of L2 with approximately 20% loss vertebral body height, new since 04/28/2024. Stable chronic T12 compression fracture. Moderate to severe degenerative disc disease L5-S1 and mild in the remaining levels. Moderate to severe facet joint degenerative changes at L5-S1. Pelvis: Changes of left hip arthroplasty. No fracture dislocation. Moderate degenerative changes the sacroiliac joints and mild degenerative changes right hip. Intact pelvic ring. IMPRESSION: 1. Mild L2 compression fracture, new since 04/28/2024. 2. Stable chronic T12 compression fracture. 3. Moderate to severe degenerative changes at L5-S1 and mild in the remaining levels. 4. No acute osseous abnormality in the pelvis. Workstation ID: [id number] Dictated by: MELISSA RODRIGUEZ on ThuMay 23, 2024 2:32:42 PM EDT Transcribed by: MELISSA RODRIGUEZ on ThuMay 23, 2024 2:32:42 PM EDT Finalized by: MELISSA RODRIGUEZ on ThuMay 23, 2024 2:32:42 PM EDT [facility] Comment on above: Order Comment: Injur y/Trauma or Illness?:Injury/Trauma How long have you had these symptoms (acute/chronic)?:Acute Reason for exam?:Fall, Somatic dysfunction of lumbar region, Lumbar spondylosis, Lumbosacral spondylosis without myelopathy History of cancer?:cervical cancer Surgeries, chemotherapy, or radiation?:y Type of Exam?:Initial Mechanism of injury?:fall XR PELVIS 1 VIEW (STANDARD)o n 05-21-2024 XR PELVIS 1 VIEW (STANDARD) EXAMINATION: XR LUMBAR SPINE AP/LAT WITH OBLIQUES; XR PELVIS 1 VIEW (STANDARD) 05/21/2024 3:12 pm HISTORY: ORDERING SYSTEM PROVIDED HISTORY: Fall, TECHNOLOGIST PROVIDED HISTORY: Injury/Trauma Reason for exam: Fall, Somatic dysfunction of lumbar region, Lumbar spondylosis, Lumbosacral spondylosis without myelopathy Cancer History: cervical cancer Surgery, RadiationHistory: y Encounter Type: Initial Mechanism of injury: fall ORDERING SYSTEM PROVIDED DIAGNOSIS CODES: M99.03 Somatic dysfunction of lumbar region M47.816 Lumbar spondylosis M47.817 Lumbosacral spondylosis without myelopathy COMPARISON: CT chest 09/09/2023. Chest radiograph 04/28/2024. FINDINGS: Lumbar spine: Normal lumbar spine alignment. Mild superior endplate compression fracture of L2 with approximately 20% loss vertebral body height, new since 04/28/2024. Stable chronic T12 compression fracture. Moderate to severe degenerative disc disease L5-S1 and mild in the remaining levels. Moderate to severe facet joint degenerative changes at L5-S1. Pelvis: Changes of left hip arthroplasty. No fracture dislocation. Moderate degenerative changes the sacroiliac joints and mild degenerative changes right hip. Intact pelvic ring. IMPRESSION: 1. Mild L2 compression fracture, new since 04/28/2024. 2. Stable chronic T12 compression fracture. 3. Moderate to severe degenerative changes at L5-S1 and mild in the remaining levels. 4. No acute osseous abnormality in the pelvis. Workstation ID: [id number] Dictated by: MELISSA RODRIGUEZ on ThuMay 23, 2024 2:32:42 PM EDT Transcribed by: MELISSA RODRIGUEZ on ThuMay 23, 2024 2:32:42 PM EDT Finalized by: MELISSA RODRIGUEZ on ThuMay 23, 2024 2:32:42 PM EDT [facility] Comment on above: Order Comment: Injur y/Trauma or Illness?:Injury/TraumaHow long have you had these symptoms (acute/chronic)?:AcuteReason for exam?:Fall, Somatic dysfunction of lumbar region, Lumbar spondylosis, Lumbosacral spondylosis without myelopathyHistory of cancer?:cervical cancerSurgeries, chemotherapy, or radiation?:yType of Exam?:InitialMechanism of injury?:fall ED Prov Noteon 04-28-2024 ED Prov Note ED PROVIDER NOTE [facility] NAME: Elizabeth Cisneros AGE: 73 y.o. : 1950 VISIT DATE: 04/28/2024 CSN: [id number] PCP: Sj Motley MD Chief Complaint Patient presents with - Headache - Nasal Congestion 73-year-old female with history multimedical problems including COPD and eosinophilic asthma. The patient notes that she was diagnosed with bronchitis in February and has been on various inhalers, serial courses of prednisone, and an 1 course of doxycycline. Patient reports none of this has seemed of helped and she feels like she is gradually getting worse. She also notes she has been dealing with lots of problems with headaches. She complains of frontal forehead pressure and reports postnasal drip. She denies fevers or chills. She denies neck pain or stiffness. Past Medical History: Diagnosis Date - Anemia 03/2016 - Anxiety 09/2002 General anxiety disorder - Arrhythmia - Arthritis - Asthma - Bruises easily - Cancer (HCC) 06/1991 Cervical cancer - Clostridium difficile infection 1999 - COPD (chronic obstructive pulmonary disease) ([facility]) Diagnosed several years ago - Coronary artery disease - Depression - Diabetes mellitus (HCC) Borderline - GERD (gastroesophageal reflux disease) 05/20/2016 - Heart murmur - Hyperlipidemia - Hypertension - Hypothyroidism (acquired) 05/20/2016 - Injury of back - Osteoporosis 11/25/2022 - Squamous cell skin cancer - Valvular disease MVP Past Surgical History: Procedure Laterality Date - ADENOIDECTOMY 1994 - APPENDECTOMY - ARTHROPLASTY HIP ROBOTIC EUGENE Left 10/21/2021 Procedure: Left Total Hip Replacement Robotic; Surgeon: Jovanna Valencia MD; Location: Main OR; Service: Ortho-Robotics - CARPAL TUNNEL RELEASE Left - CATARACT EXTRACTION W/ INTRAOCULAR LENS IMPLANT Bilateral - COLON SURGERY WITH ILEOSTOMY - CORE DECOMPRESSION OF LEFT FEMEROL HEAD - EYE SURGERY Bilateral LASER TO EYES FOR GLAUCOMA - HANDS, DUPYTRENS, TRIGGER FINGER, CARPAL TUNNEL Right - HYSTERECTOMY 1990 - ILEOSTOMY REVERSAL - INDEX FINGER SURGERY Right - JOINT REPLACEMENT - MUSCLE BIOPSY - ROTATOR CUFF REPAIR Left - SINUS SURGERY January 2018 and nik bullosa resection - Dr. Watters - SINUS SURGERY 12/30/2019 balloon sinuplasty - Dr. Key - SKIN BIOPSY - TONSILLECTOMY - TRIGGER FINGER RELEASE Right 03/24/2018 Procedure: RELEASE A1 TOD LEFT MIDDLE,RING, AND SMALL FINGERS WITH CORTISONE INJECTION RIGHT MIDDLE FINGER A1 TOD; Surgeon: Yonas Nguyen MD; Location: [facility] Main OR; Service: Hand - TUBAL LIGATION Family History Problem Relation Age of Onset - Hypertension Father - Asthma Father - COPD Father - Diabetes Father - Hearing loss Father - Heart disease Father - Hyperlipidemia Father - Osteoporosis Mother - Hypertension Mother - Arthritis Mother - Cancer Mother - Heart disease Mother - Heart disease Maternal Grandfather - Heart disease Sister - Hypertension Sister - Cancer Brother - Asthma Brother - Diabetes Brother - Anesthesia problems Neg Hx - Hip fracture Neg Hx Social History Socioeconomic History - Marital status: Single Tobacco Use - Smoking status: Former Current packs/day: 0.00 Average packs/day: 1.5 packs/day for 42.1 years (63.1 ttl pk-yrs) Types: Cigarettes Start date: 1979 Quit date: 09/17/2021 Years since quittin.6 Passive exposure: Past - Smokeless tobacco: Never - Tobacco comments: Cigarettes Vaping Use - Vaping status: Never Used Substance and Sexual Activity - Alcohol use: No - Drug use: No - Sexual activity: Not Currently control/protection: Pill, Diaphragm, I.U.D., Surgical Comment: hysterectomy at age 39 Previous Medications Medication Sig - acetaminophen (TYLENOL) 500 MG tablet Take 1 (one) tablet (500 mg total) by mouth every 6 (six) hours as needed for pain THREE TIMES DAILY . - albuterol (PROVENTIL) 2.5 mg /3 mL (0.083 %) nebulizer solution Take 3 mL (2.5 mg total) by nebulization every 6 (six) hours as needed for wheezing . - amantadine HCL (SYMMETREL) 100 mg capsule - atenoloL (TENORMIN) 50 MG tablet Take 1 (one) tablet (50 mg total) by mouth 2 (two) times a day . - atogepant (Qulipta) 60 mg Tab Take 1 (one) tablet (60 mg total) by mouth daily . - [place] Saline Gel Apply topically 2 (two) times a day Apply a pea sized amount to both nostrils at bedtime and in a.m. You can use it more often.. - Bevespi Aerosphere 9-4.8 mcg HFAA Inhale 2 puffs 2 (two) times a day . - budesonide (PULMICORT) 0.5 mg/2 mL nebulizer solution Take 2 mL (0.5 mg total) by nebulization 2 (two) times a day . - CALCITRATE 200 mg (950 mg) tablet Take 200 mg by mouth 3 (three) times a day . - desvenlafaxine succinate (PRISTIQ) 50 MG 24 hr tablet Take 1 (one) tablet (50 mg total) by mouth daily . - diclofenac sodium 1% (VOLTAREN) 1 % Gel Apply topically 4 (more content not included)... [facility] XR CHEST AP/PA AND LATon XR CHEST AP/PA AND LAT EXAMINATION: XR CHEST AP/PA AND LAT 04/28/2024 11:35 am HISTORY: ORDERING SYSTEM PROVIDED HISTORY: Cough/wheezing x February..Getting wose, TECHNOLOGIST PROVIDED HISTORY: Illness/Other Reason for exam: sob for several months and worsening with prod cough this week Cancer History: cervical cancer Surgery, RadiationHistory: y Encounter Type: Initial Additional signs and symptoms: hx of COPD emphysema ORDERING SYSTEM PROVIDED DIAGNOSIS CODES: COMPARISON: 05/07/2023 FINDINGS: Minimal atelectasis at both lower lobes. There is no focal lung consolidation, pleural effusion or pneumothorax. Pulmonary vasculature is within normal limits. There is aortic atherosclerosis and tortuous aorta, with normal heart size. IMPRESSION: 1. No acute cardiopulmonary disease. Workstation ID: [id number] Dictated by: LEORA LALA on ThuApr 28, 2024 11:54:22 AM EDT Transcribed by: LEORA LALA on ThuApr 28, 2024 11:54:22 AM EDT Finalized by: LEORA LALA on ThuApr 28, 2024 11:54:22 AM EDT [facility] Comment on above: Order Comment: Injur y/Trauma or Illness?:Illness/OtherHow long have you had these symptoms (acute/chronic)?:AcuteReason for exam?:sob for several months and worsening with prod cough this weekHistory of cancer?:cervical cancerSurgeries, chemotherapy, or radiation?:yType of Exam?:InitialAdditional signs and symptoms?:hx of COPD emphysema LG Jt Injection/Arthrocentes is: L kneeon 03-02-2024 Charly Dias CNP 03/04/2024 6:53 AM LG Jt Injection/Arthrocentes is: L knee Performed by: Charly Dias CNP Authorized by: Charly Dias CNP CPT 47214 - Large Joint Arthrocentesis: Consent given by: Patient Time out: Immediately prior to the procedure a time out was called Physician or proceduralist has discussed critical or nonroutine steps, procedure duration and anticipated blood loss: Yes Supporting Documentation: Indications: Pain and diagnostic evaluation Procedure Details: Location: Knee Site: L knee Prep: patient was prepped and draped in usual sterile fashion Needle size: 22 G Approach: Anterolateral Medications: 40 mg triamcinolone acetonide 40 mg/mL Anesthetic used: Lidocaine 1% Anesthetic amount (mL): 2 Patient tolerance: Patient tolerated the procedure well with no immediate complications [facility] LG Jt Injection/Arthrocentes is: R kneeon 03-02-2024 Charly Dias CNP 03/04/2024 6:53 AM LG Jt Injection/Arthrocentes is: R knee Performed by: Charly Dias CNP Authorized by: Charly Dias CNP CPT 88109 - Large Joint Arthrocentesis: Consent given by: Patient Time out: Immediately prior to the procedure a time out was called Physician or proceduralist has discussed critical or nonroutine steps, procedure duration and anticipated blood loss: Yes Supporting Documentation: Indications: Pain, joint swelling and diagnostic evaluation Procedure Details: Location: Knee Site: R knee Prep: patient was prepped and draped in usual sterile fashion Needle size: 22 G Approach: Anterolateral Medications: 40 mg triamcinolone acetonide 40 mg/mL Anesthetic used: Lidocaine 1% Anesthetic amount (mL): 2 Patient tolerance: Patient tolerated the procedure well with no immediate complications [facility] No Panel Informationon 03-02 [facility] XR KNEES BILATERAL 4+ VIEWS (SPECIFY VIEWS IN COMMENTS)on 03-02-2024 XR KNEES BILATERAL 4+ VIEWS (SPECIFY VIEWS IN COMMENTS) EXAMINATION: XR KNEES BILATERAL 4+ VIEWS (SPECIFY VIEWS IN COMMENTS) HISTORY: ORDERING SYSTEM PROVIDED HISTORY: Pain, TECHNOLOGIST PROVIDED HISTORY: Illness/Other Reason for exam: chronic bilateral nee pain, weakness, knees give out at times, no known injury Cancer History: cervical cancer Surgery, RadiationHistory: y Encounter Type: Initial Additional signs and symptoms: none ORDERING SYSTEM PROVIDED DIAGNOSIS CODES: R52 Pain COMPARISON: 09/21/2022. FINDINGS: AP standing, [place] views of both knees. Lateral view of each knee. No acute osseous abnormality. No subluxation or dislocation. Mild tricompartmental joint space narrowing of the knees with mild osteophytic spurring. Chondrocalcinosis of both medial and lateral knee compartments. Small right knee joint effusion. No significant left knee joint effusion. Partial visualization left hip hardware. IMPRESSION: No acute osseous abnormality. Symmetric mild tricompartmental degenerative changes with chondrocalcinosis. [employer] Workstation ID: [id number] Dictated by: SHARRON ACEVEDO on ThuMar 04, 2024 5:34:39 AM EDT Transcribed by: NADINE WILLIS on ThuMar 04, 2024 5:39:57 AM EDT Finalized by: SHARRON ACEVEDO on ThuMar 04, 2024 10:18:13 PM EDT Normal [facility] Ambulatory Comment on above: Order Comment: Injur y/Trauma or Illness?:Illness/Other How long have you had these symptoms (acute/chronic)?:Chronic Reason for exam?:chronic bilateral nee pain, weakness, knees give out at times, no known injury History of cancer?:cervical cancer Surgeries, chemotherapy, or radiation?:y Type of Exam?:Initial Additional signs and symptoms?:none LG Jt Injection/Arthrocentes is: L glenohumeralon 11-09-2023 Charly Dias CNP 11/09/2023 4:19 PM LG Jt Injection/Arthrocentes is: L glenohumeral Performed by: Charly Dias CNP Authorized by: Charly Dias CNP CPT 12963 - Large Joint Arthrocentesis: Consent given by: Patient Time out: Immediately prior to the procedure a time out was called Physician or proceduralist has discussed critical or nonroutine steps, procedure duration and anticipated blood loss: Yes Supporting Documentation: Indications: Pain and diagnostic evaluation Procedure Details: Location: Shoulder Site: L glenohumeral Prep: patient was prepped and draped in usual sterile fashion Needle size: 22 G Approach: Posterior Medications: 40 mg triamcinolone acetonide 40 mg/mL Anesthetic used: Lidocaine 1% Anesthetic amount (mL): 2 Patient tolerance: Patient tolerated the procedure well with no immediate complications [facility] LG Jt Injection/Arthrocentes is: R glenohumeralon 11-09-2023 Charly Dias CNP 11/09/2023 4:19 PM LG Jt Injection/Arthrocentes is: R glenohumeral Performed by: Charly Dias CNP Authorized by: Charly Dias CNP CPT 53381 - Large Joint Arthrocentesis: Consent given by: Patient Time out: Immediately prior to the procedure a time out was called Physician or proceduralist has discussed critical or nonroutine steps, procedure duration and anticipated blood loss: Yes Supporting Documentation: Indications: Pain and diagnostic evaluation Procedure Details: Location: Shoulder Site: R glenohumeral Prep: patient was prepped and draped in usual sterile fashion Needle size: 22 G Approach: Posterior Medications: 40 mg triamcinolone acetonide 40 mg/mL Anesthetic amount (mL): 2 Patient tolerance: Patient tolerated the procedure well with no immediate complications [facility] No Panel Informationon 11-08 [facility] LARGE JOINT/BURSA INJECTION AND/OR ASPIRATION: L kneeon 11-02-2023 ARABELLA Anderson 11/02/2023 1:11 PM LARGE JOINT/BURSA INJECTION AND/OR ASPIRATION: L knee Date/Time: 11/02/2023 1:00 PM Performed by: ARABELLA Anderson Authorized by: ARABELLA Anderson Supporting Documentation Indications: pain and osteoarthritis Procedure Details: Location: knee - L knee Local Anesthetic: ethyl chloride (cold spray) Needle size: 22 G Approach: anterolateral Medication Verification: I have personally verified and performed the final check of the medication(s) used in this procedure prior to administration. The following items were included during the verification process for medication(s) administered: drug name, strength, volume, expiration, physical integrity and appearance of the medication(s). Medications administered: 20 mg Sodium Hyaluronate (Viscosup) 20 MG/2ML Patient tolerance: patient tolerated the procedure well with no immediate complications Consent: Consent was obtained prior to the procedure after discussion of the risks, benefits and alternatives, and expected outcomes were discussed with the patient. The possibilities of reaction to medication, bleeding, infection, the need for additional procedures, failure to diagnosis a condition, and creating a complication requiring operation were discussed with the patient. The patient concurred with the proposed plan, giving consent. Preparation: Patient was prepped in the usual sterile fashion. The patient was prepped with alcohol. [facility] LARGE JOINT/BURSA INJECTION AND/OR ASPIRATION: R kneeon 11-02-2023 ARABELLA Anderson 11/02/2023 1:11 PM LARGE JOINT/BURSA INJECTION AND/OR ASPIRATION: R knee Date/Time: 11/02/2023 1:00 PM Performed by: ARABELLA Anderson Authorized by: ARABELLA Anderson Supporting Documentation Indications: pain and osteoarthritis Procedure Details: Location: knee - R knee Local Anesthetic: ethyl chloride (cold spray) Needle size: 22 G Approach: anterolateral Medication Verification: I have personally verified and performed the final check of the medication(s) used in this procedure prior to administration. The following items were included during the verification process for medication(s) administered: drug name, strength, volume, expiration, physical integrity and appearance of the medication(s). Medications administered: 20 mg Sodium Hyaluronate (Viscosup) 20 MG/2ML Patient tolerance: patient tolerated the procedure well with no immediate complications Consent: Consent was obtained prior to the procedure after discussion of the risks, benefits and alternatives, and expected outcomes were discussed with the patient. The possibilities of reaction to medication, bleeding, infection, the need for additional procedures, failure to diagnosis a condition, and creating a complication requiring operation were discussed with the patient. The patient concurred with the proposed plan, giving consent. Preparation: Patient was prepped in the usual sterile fashion. The patient was prepped with alcohol. [facility] No Panel Informationon 11-01 [facility] Radiology Study observation (narrative) [facility] LARGE JOINT/BURSA INJECTION AND/OR ASPIRATION: L kneeon 10-26-2023 ARABELLA Anderson 10/26/2023 1:16 PM LARGE JOINT/BURSA INJECTION AND/OR ASPIRATION: L knee Date/Time: 10/26/2023 1:00 PM Performed by: ARABELLA Anderson Authorized by: ARABELLA Anderson Supporting Documentation Indications: pain and osteoarthritis Procedure Details: Location: knee - L knee Local Anesthetic: ethyl chloride (cold spray) Needle size: 22 G Approach: anterolateral Medication Verification: I have personally verified and performed the final check of the medication(s) used in this procedure prior to administration. The following items were included during the verification process for medication(s) administered: drug name, strength, volume, expiration, physical integrity and appearance of the medication(s). Medications administered: 20 mg Sodium Hyaluronate (Viscosup) 20 MG/2ML Patient tolerance: patient tolerated the procedure well with no immediate complications Consent: Consent was obtained prior to the procedure after discussion of the risks, benefits and alternatives, and expected outcomes were discussed with the patient. The possibilities of reaction to medication, bleeding, infection, the need for additional procedures, failure to diagnosis a condition, and creating a complication requiring operation were discussed with the patient. The patient concurred with the proposed plan, giving consent. Preparation: Patient was prepped in the usual sterile fashion. The patient was prepped with alcohol. [facility] LARGE JOINT/BURSA INJECTION AND/OR ASPIRATION: R kneeon 10-26-2023 ARABELLA Anderson 10/26/2023 1:16 PM LARGE JOINT/BURSA INJECTION AND/OR ASPIRATION: R knee Date/Time: 10/26/2023 1:00 PM Performed by: ARABELLA Anderson Authorized by: ARABELLA Anderson Supporting Documentation Indications: pain and osteoarthritis Procedure Details: Location: knee - R knee Local Anesthetic: ethyl chloride (cold spray) Needle size: 22 G Approach: anterolateral Medication Verification: I have personally verified and performed the final check of the medication(s) used in this procedure prior to administration. The following items were included during the verification process for medication(s) administered: drug name, strength, volume, expiration, physical integrity and appearance of the medication(s). Medications administered: 20 mg Sodium Hyaluronate (Viscosup) 20 MG/2ML Patient tolerance: patient tolerated the procedure well with no immediate complications Consent: Consent was obtained prior to the procedure after discussion of the risks, benefits and alternatives, and expected outcomes were discussed with the patient. The possibilities of reaction to medication, bleeding, infection, the need for additional procedures, failure to diagnosis a condition, and creating a complication requiring operation were discussed with the patient. The patient concurred with the proposed plan, giving consent. Preparation: Patient was prepped in the usual sterile fashion. The patient was prepped with alcohol. [facility] No Panel Informationon 10-25 [facility] Radiology Study observation (narrative) [facility] LARGE JOINT/BURSA INJECTION AND/OR ASPIRATION: L kneeon 10-19-2023 ARABELLA Anderson 10/19/2023 1:42 PM LARGE JOINT/BURSA INJECTION AND/OR ASPIRATION: L knee Date/Time: 10/19/2023 1:00 PM Performed by: ARABELLA Anderson Authorized by: ARABELLA Anderson Supporting Documentation Indications: pain and osteoarthritis Procedure Details: Location: knee - L knee Local Anesthetic: ethyl chloride (cold spray) Needle size: 22 G Approach: anterolateral Medication Verification: I have personally verified and performed the final check of the medication(s) used in this procedure prior to administration. The following items were included during the verification process for medication(s) administered: drug name, strength, volume, expiration, physical integrity and appearance of the medication(s). Medications administered: 20 mg Sodium Hyaluronate (Viscosup) 20 MG/2ML Patient tolerance: patient tolerated the procedure well with no immediate complications Consent: Consent was obtained prior to the procedure after discussion of the risks, benefits and alternatives, and expected outcomes were discussed with the patient. The possibilities of reaction to medication, bleeding, infection, the need for additional procedures, failure to diagnosis a condition, and creating a complication requiring operation were discussed with the patient. The patient concurred with the proposed plan, giving consent. Preparation: Patient was prepped in the usual sterile fashion. The patient was prepped with alcohol. [facility] LARGE JOINT/BURSA INJECTION AND/OR ASPIRATION: R kneeon 10-19-2023 ARABELLA Anderson 10/19/2023 1:42 PM LARGE JOINT/BURSA INJECTION AND/OR ASPIRATION: R knee Date/Time: 10/19/2023 1:00 PM Performed by: ARABELLA Anderson Authorized by: ARABELLA Anderson Supporting Documentation Indications: pain and osteoarthritis Procedure Details: Location: knee - R knee Local Anesthetic: ethyl chloride (cold spray) Needle size: 22 G Approach: anterolateral Medication Verification: I have personally verified and performed the final check of the medication(s) used in this procedure prior to administration. The following items were included during the verification process for medication(s) administered: drug name, strength, volume, expiration, physical integrity and appearance of the medication(s). Medications administered: 20 mg Sodium Hyaluronate (Viscosup) 20 MG/2ML Patient tolerance: patient tolerated the procedure well with no immediate complications Consent: Consent was obtained prior to the procedure after discussion of the risks, benefits and alternatives, and expected outcomes were discussed with the patient. The possibilities of reaction to medication, bleeding, infection, the need for additional procedures, failure to diagnosis a condition, and creating a complication requiring operation were discussed with the patient. The patient concurred with the proposed plan, giving consent. Preparation: Patient was prepped in the usual sterile fashion. The patient was prepped with alcohol. [facility] No Panel Informationon 10-18 [facility] Radiology Study observation (narrative) [facility] Urgent Care Visit Reporton 0 09-30-2023 Urgent Care Visit Report [facility] [address], [address] [place] [address] OFFICE VISIT Date of Service: 09/30/23 MR#: [id number] Acct: [id number] Name: CYNTHIA CISNEROS ELICIA Rep #: [id number] : 1950 Provider: TERRELL Sexton Age/Sex: 73/F Location: [facility] [place] Status: Signed Intake Vital Signs 07/24/23 14:26 09/30/23 13:12 Height 5 ft 3 in 5 ft 3 in Weight: 155 lb BMI 27.4 BP 146/82 H 172/90 H Blood Pressure Location Lt brachial Rt brachial Position Sitting Sitting Respiration 16 17 Pulse 84 94 Pulse Source Monitor NIBP Temp 98.2 F 97.8 F Temp Source Temporal Pulse Oximetry (%) 90 95 Oxygen Delivery Method room air room air Intake Visit Reasons: SINUS INFECTION, COUGHING, WHEEZING Chief Complaint: cough, wheezing, ULLOA Self Contained Behavior Unit Teacher Required: No Is patient in pain?: No Allergies benztropine [From Cogentin] Allergy (Severe, Verified 09/30/23 14:10) hallucinations levofloxacin [From Levaquin] Allergy (Severe, Verified 09/30/23 14:10) Stomach pain lithium Allergy (Severe, Verified 09/30/23 14:10) Nausea/Vom/Diarrhea niacin Allergy (Severe, Verified 09/30/23 14:10) Rash Penicillins Allergy (Severe, Verified 09/30/23 14:10) Hives soybean Allergy (Intermediate, Verified 09/30/23 14:10) Rash Sulfa (Sulfonamide Antibiotics) Allergy (Intermediate, Verified 09/30/23 14:10) Hives trazodone Allergy (Intermediate, Verified 09/30/23 14:10) breathing problems sulfamethoxazole [From Bactrim] Allergy (Verified 09/30/23 14:10) Unknown trimethoprim [From Bactrim] Allergy (Verified 09/30/23 14:10) Unknown candesartan Adverse Reaction (Intermediate, Verified 09/30/23 14:10) Palpitations and depression hydrochlorothiazide Adverse Reaction (Intermediate, Verified 09/30/23 14:10) Palpitations and depression cephalexin [From Keflex] Adverse Reaction (Verified 09/30/23 14:10) yeast indection Is last menstrual period known: No Post menopausal: Yes Patient : No Nurse's Note: cough, wheezing, ULLOA x 3 weeks PFSH Medical History Abnormal bruising Acute maxillary sinusitis, unspecified Acute sinusitis, unspecified Anemia Arthritis Asthma Asthmatic bronchitis with acute exacerbation Back problem Bleeding disorder Cancer Chronic bronchitis Chronic headaches Chronic left hip pain DDD (degenerative disc disease), lumbar Depression Diabetes mellitus type II, controlled Emphysema lung Encounter for screening for COVID-19 Essential hypertension Fatigue Fibromyalgia GERD (gastroesophageal reflux disease) Glaucoma Hay fever Hemorrhoids Hx of squamous cell carcinoma Hyperlipidemia Hypothyroid Left renal mass Neuropathy Osteopenia Osteoporosis Palpitations Paroxysmal atrial fibrillation PTSD (post-traumatic stress disorder) Rosacea Seasonal allergies Shoulder pain Skin cancer Thrush Vitamin deficiency Surgical History History of carpal tunnel surgery History of cataract removal with insertion of prosthetic lens History of closure of ileostomy History of ethmoidectomy History of ileostomy History of intestinal surgery History of orthopedic surgery History of rotator cuff surgery History of sinus surgery History of tonsillectomy History of total hysterectomy hx of finger surgery hx of muscle biopsy sinuplasty Status post LASIK surgery of both eyes Family History Father Asthma Heart disease High cholesterol Respiratory disease Multiple allergies Mother Anxiety Arthritis Bowel disease Colon cancer Myocardial infarction Hypertension Social History household members: none housing: house current occupational status: retired pets and animals: No Smoking Status: Former smoker quit date: 09/17/20 Tobacco: How many years used: 38 second hand exposure: Yes alcohol intake: never substance use type: does not use what type of physical activity do you participate in: none do you feel safe at home: Yes HPI HPI Chief Complaint: cough, wheezing, ULLOA Details: CYNTHIA CISNEROS, is a 73 F who presents to the office today for complaint of cough, wheezing and sinus congestion/pressure and pain for the past 3 weeks. Patient denies fever, chills, sweats. No nausea, vomiting or diarrhea. She states that her breathing treatments do help. No other associated symptoms or alleviating/aggravatin g factors. ROS Const Constitutional: No other (6 system ROS completed with pertinent findings in the HPI otherwise normal.) Exam Const General: cooperative and healthy appearing HENWY Head: normal to inspection Ears: hearing grossly normal bilaterally, TM's n (more content not included)... Normal [facility] CCP Antibodyon 07-06-2023 CCP Ab [facility] Comment on above: The following result s were obtained with the WebVisible[employer] Flash CCP3 chemiluminescent immunoassay. Values obtained with different manufacturers' assay methods may not be used interchangeably. Interpretation and review of laboratory results Normal [facility] CRP [Mass/Vol]on 07-03-2023 Interpretation and review of laboratory results Normal [facility] CRP, Inflammationon 07-03-20 CRP [Mass/Vol] mg/L NINF - 10.0 mg/L [facility] ESR Westergren method (Bld) [Velocity]on 07-03-2023 ESR (Bld) [Velocity] 38 mm/h High [facility] Interpretation and review of laboratory results Abnormal [facility] Rheumatoid factorOrdered By: Hugo Nieves on 07-03-2023 Interpretation and review of laboratory results Normal [facility] Rheumatoid factor Qn 11.0 [IU]/mL [facility] LG Jt Injection/Arthrocentes is: L glenohumeralon 06-25-2023 Charly Dias CNP 06/25/2023 4:14 PM LG Jt Injection/Arthrocentes is: L glenohumeral Performed by: Charly Dias CNP Authorized by: hCarly Dias CNP CPT 43434 - Large Joint Arthrocentesis: Consent given by: Patient Time out: Immediately prior to the procedure a time out was called Physician or proceduralist has discussed critical or nonroutine steps, procedure duration and anticipated blood loss: Yes Supporting Documentation: Indications: Pain and diagnostic evaluation Procedure Details: Location: Shoulder Site: L glenohumeral Prep: patient was prepped and draped in usual sterile fashion Needle size: 22 G Approach: Posterior Medications: 40 mg triamcinolone acetonide 40 mg/mL Anesthetic used: Lidocaine 1% Anesthetic amount (mL): 2 Patient tolerance: Patient tolerated the procedure well with no immediate complications [facility] LG Jt Injection/Arthrocentes is: R glenohumeralon 06-25-2023 Chalry Dias CNP 06/25/2023 4:14 PM LG Jt Injection/Arthrocentes is: R glenohumeral Performed by: Charly Dias CNP Authorized by: Charly Dias CNP CPT 04153 - Large Joint Arthrocentesis: Consent given by: Patient Time out: Immediately prior to the procedure a time out was called Physician or proceduralist has discussed critical or nonroutine steps, procedure duration and anticipated blood loss: Yes Supporting Documentation: Indications: Pain and diagnostic evaluation Procedure Details: Location: Shoulder Site: R glenohumeral Prep: patient was prepped and draped in usual sterile fashion Needle size: 22 G Approach: Posterior Medications: 40 mg triamcinolone acetonide 40 mg/mL Anesthetic amount (mL): 2 Patient tolerance: Patient tolerated the procedure well with no immediate complications [facility] No Panel Informationon 06-25 [facility] ECG 12 LeadOrdered By: Mayela Fontenot on 05-07-2023 Atrial Rate [facility] P Baudette [facility] P-R Interval [facility] Q-T Interval [facility] Q-T Interval (corrected) [facility] QRS Duration [facility] QTC Calculation (Bezet) [facility] R Baudette [facility] T Baudette [facility] Ventricular Rate [facility] th [facility] XR Chest AP/PA and LATon 1. Findings consistent with COPD. 2. Increased markings in both bases most consistent with bibasilar atelectasis. Less likely would be early infiltrates. Clinical correlation is suggested. Workstation ID: [id number] [place] EXAMINATION: XR CHEST AP/PA AND LAT 05/07/2023 4:55 pm HISTORY: ORDERING SYSTEM PROVIDED HISTORY: wheezing and worsening cough, TECHNOLOGIST PROVIDED HISTORY: Illness/Other Reason for exam: wheezing and worsening cough Cancer History: cervical cancer Surgery, RadiationHistory: y Encounter Type: Initial Additional signs and symptoms: no ORDERING SYSTEM PROVIDED DIAGNOSIS CODES: R06.2 Wheezing COMPARISON: 08/26/2021 FINDINGS: Heart and vascularity are unremarkable. There are a few increased markings in both lung bases. No consolidation is noted. There is flattening of the hemidiaphragms. Early atherosclerotic changes of the thoracic aorta are noted. Spondylosis of the spine is noted. [facility] Patricia Rodríguez MD - 05/07/2023 EXAMINATION: XR CHEST AP/PA AND LAT 05/07/2023 4:55 pm HISTORY: ORDERING SYSTEM PROVIDED HISTORY: wheezing and worsening cough, TECHNOLOGIST PROVIDED HISTORY: Illness/Other Reason for exam: wheezing and worsening cough Cancer History: cervical cancer Surgery, RadiationHistory: y Encounter Type: Initial Additional signs and symptoms: no ORDERING SYSTEM PROVIDED DIAGNOSIS CODES: R06.2 Wheezing COMPARISON: 08/26/2021 FINDINGS: Heart and vascularity are unremarkable. There are a few increased markings in both lung bases. No consolidation is noted. There is flattening of the hemidiaphragms. Early atherosclerotic changes of the thoracic aorta are noted. Spondylosis of the spine is noted. IMPRESSION: 1. Findings consistent with COPD. 2. Increased markings in both bases most consistent with bibasilar atelectasis. Less likely would be early infiltrates. Clinical correlation is suggested. Workstation ID: [id number] [facility] Radiology Study observation (narrative) [facility] XR Chest AP/PA and LATOrdere d By: Patricia Rodríguez on 05-07-2023 [facility] Work Phone: No Panel Informationon 04-15 Radiology Study observation (narrative) [facility] LARGE JOINT/BURSA INJECTION AND/OR ASPIRATION: L kneeon 04-13-2023 Brice Valdez, [facility] 04/15/2023 5:46 PM LARGE JOINT/BURSA INJECTION AND/OR ASPIRATION: L knee Date/Time: 04/13/2023 1:20 PM Performed by: Julianna Osullivan MD Authorized by: Julianna Osullivan MD Supporting Documentation Indications: pain and osteoarthritis Procedure Details: Location: knee - L knee Local Anesthetic: ethyl chloride (cold spray) Needle size: 22 G Approach: anterolateral Medication Verification: I have personally verified and performed the final check of the medication(s) used in this procedure prior to administration. The following items were included during the verification process for medication(s) administered: drug name, strength, volume, expiration, physical integrity and appearance of the medication(s). Medications administered: 20 mg Sodium Hyaluronate (Viscosup) 20 MG/2ML Patient tolerance: patient tolerated the procedure well with no immediate complications Consent: Consent was obtained prior to the procedure after discussion of the risks, benefits and alternatives, and expected outcomes were discussed with the patient. The possibilities of reaction to medication, bleeding, infection, the need for additional procedures, failure to diagnosis a condition, and creating a complication requiring operation were discussed with the patient. The patient concurred with the proposed plan, giving consent. Preparation: Patient was prepped in the usual sterile fashion. The patient was prepped with alcohol. [facility] LARGE JOINT/BURSA INJECTION AND/OR ASPIRATION: R kneeon 04-13-2023 Brice Valdez ATC 04/15/2023 5:46 PM LARGE JOINT/BURSA INJECTION AND/OR ASPIRATION: R knee Date/Time: 04/13/2023 1:20 PM Performed by: Julianna Osullivan MD Authorized by: Julianna Osullivan MD Supporting Documentation Indications: pain and osteoarthritis Procedure Details: Location: knee - R knee Local Anesthetic: ethyl chloride (cold spray) Needle size: 22 G Approach: anterolateral Medication Verification: I have personally verified and performed the final check of the medication(s) used in this procedure prior to administration. The following items were included during the verification process for medication(s) administered: drug name, strength, volume, expiration, physical integrity and appearance of the medication(s). Medications administered: 20 mg Sodium Hyaluronate (Viscosup) 20 MG/2ML Patient tolerance: patient tolerated the procedure well with no immediate complications Consent: Consent was obtained prior to the procedure after discussion of the risks, benefits and alternatives, and expected outcomes were discussed with the patient. The possibilities of reaction to medication, bleeding, infection, the need for additional procedures, failure to diagnosis a condition, and creating a complication requiring operation were discussed with the patient. The patient concurred with the proposed plan, giving consent. Preparation: Patient was prepped in the usual sterile fashion. The patient was prepped with alcohol. [facility] No Panel Informationon 04-13 [facility] LG Jt Injection/Arthrocentes is: L glenohumeralon 03-20-2023 Charly Dias CNP 03/20/2023 2:01 PM LG Jt Injection/Arthrocentes is: L glenohumeral Performed by: Charly Dias CNP Authorized by: Charly Dias CNP CPT 10468 - Large Joint Arthrocentesis: Consent given by: Patient Time out: Immediately prior to the procedure a time out was called Physician or proceduralist has discussed critical or nonroutine steps, procedure duration and anticipated blood loss: Yes Supporting Documentation: Indications: Pain and diagnostic evaluation Procedure Details: Location: Shoulder Site: L glenohumeral Prep: patient was prepped and draped in usual sterile fashion Needle size: 22 G Approach: Posterior Medications: 40 mg triamcinolone acetonide 40 mg/mL Anesthetic used: Lidocaine 1% Anesthetic amount (mL): 2 Patient tolerance: Patient tolerated the procedure well with no immediate complications [facility] LG Jt Injection/Arthrocentes is: R glenohumeralon 03-20-2023 Charly Dias CNP 03/20/2023 2:01 PM LG Jt Injection/Arthrocentes is: R glenohumeral Performed by: Charly Dias CNP Authorized by: Charly Dias CNP CPT 70565 - Large Joint Arthrocentesis: Consent given by: Patient Time out: Immediately prior to the procedure a time out was called Physician or proceduralist has discussed critical or nonroutine steps, procedure duration and anticipated blood loss: Yes Supporting Documentation: Indications: Pain and diagnostic evaluation Procedure Details: Location: Shoulder Site: R glenohumeral Prep: patient was prepped and draped in usual sterile fashion Needle size: 22 G Approach: Posterior Medications: 40 mg triamcinolone acetonide 40 mg/mL Anesthetic amount (mL): 2 Patient tolerance: Patient tolerated the procedure well with no immediate complications [facility] No Panel Informationon 03-20 [facility] Upper Respiratory Aerobic Cu ltureon 10-03-2022 Bacteria identified Aer cx Nom (Nose) Heavy Growth Staphylococcus aureus Abnormal [facility] Comment on above: This Staphylococcus aureus is Methicillin SUSCEPTIBLE by PBP2a testing. Beta-lactams like Cefazolin and Nafcillin are superior to Vancomycin for treating mSsa. Interpretation and review of laboratory results Abnormal [facility] Microscopic observation Gram stain Nom (Unsp spec) Many WBC [facility] Microscopic observation Gram stain Nom (Unsp spec) No Epithelial Cells Seen [facility] Microscopic observation Gram stain Nom (Unsp spec) Positive [facility] Wound Anaerobic CultureOrder ed By: Kathleen Hinojosa on 10-03-2022 Bacteria identified Anaer cx Nom (Wound) No Anaerobic Growth at 2 Days [facility] LG Jt Injection/Arthrocentes is: L glenohumeralon 09-29-2022 Charly Dias CNP 09/29/2022 4:24 PM LG Jt Injection/Arthrocentes is: L glenohumeral Performed by: Charly Dias CNP Authorized by: Charly Dias CNP CPT 28988 - Large Joint Arthrocentesis: Consent given by: Patient Time out: Immediately prior to the procedure a time out was called Physician or proceduralist has discussed critical or nonroutine steps, procedure duration and anticipated blood loss: Yes Supporting Documentation: Indications: Pain and diagnostic evaluation Procedure Details: Location: Shoulder Site: L glenohumeral Prep: patient was prepped and draped in usual sterile fashion Needle size: 22 G Approach: Posterior Medications: 40 mg triamcinolone acetonide 40 mg/mL Anesthetic used: Lidocaine 1% Anesthetic amount (mL): 2 Patient tolerance: Patient tolerated the procedure well with no immediate complications [facility] LG Jt Injection/Arthrocentes is: L kneeon 09-22-2022 Charly Dias CNP 09/22/2022 3:53 PM LG Jt Injection/Arthrocentes is: L knee Performed by: Charly Dias CNP Authorized by: Charly Dias CNP CPT 91216 - Large Joint Arthrocentesis: Consent given by: Patient Time out: Immediately prior to the procedure a time out was called Physician or proceduralist has discussed critical or nonroutine steps, procedure duration and anticipated blood loss: Yes Supporting Documentation: Indications: Pain and diagnostic evaluation Procedure Details: Location: Knee Site: L knee Prep: patient was prepped and draped in usual sterile fashion Needle size: 22 G Approach: Anterolateral Medications: 40 mg triamcinolone acetonide 40 mg/mL Anesthetic used: Lidocaine 1% Anesthetic amount (mL): 2 Patient tolerance: Patient tolerated the procedure well with no immediate complications [facility] LG Jt Injection/Arthrocentes is: R kneeon 09-22-2022 Charly Dias CNP 09/22/2022 3:53 PM LG Jt Injection/Arthrocentes is: R knee Performed by: Charly Dias CNP Authorized by: Charly Dias CNP CPT 15459 - Large Joint Arthrocentesis: Consent given by: Patient Time out: Immediately prior to the procedure a time out was called Physician or proceduralist has discussed critical or nonroutine steps, procedure duration and anticipated blood loss: Yes Supporting Documentation: Indications: Pain, joint swelling and diagnostic evaluation Procedure Details: Location: Knee Site: R knee Prep: patient was prepped and draped in usual sterile fashion Needle size: 22 G Approach: Anterolateral Medications: 40 mg triamcinolone acetonide 40 mg/mL Anesthetic used: Lidocaine 1% Anesthetic amount (mL): 2 Patient tolerance: Patient tolerated the procedure well with no immediate complications [facility] No Panel Informationon 09-22 [facility] LARGE JOINT/BURSA INJECTION AND/OR ASPIRATION: L kneeon 09-01-2022 ARABELLA Anderson 09/01/2022 1:17 PM LARGE JOINT/BURSA INJECTION AND/OR ASPIRATION: L knee Date/Time: 09/01/2022 1:00 PM Supporting Documentation Indications: pain and osteoarthritis Procedure Details: Location: knee - L knee Local Anesthetic: ethyl chloride (cold spray) Needle size: 22 G Approach: anterolateral Medication Verification: I have personally verified and performed the final check of the medication(s) used in this procedure prior to administration. The following items were included during the verification process for medication(s) administered: drug name, strength, volume, expiration, physical integrity and appearance of the medication(s). Medications administered: 20 mg Sodium Hyaluronate 20 MG/2ML Patient tolerance: patient tolerated the procedure well with no immediate complications Consent: Consent was obtained prior to the procedure after discussion of the risks, benefits and alternatives, and expected outcomes were discussed with the patient. The possibilities of reaction to medication, bleeding, infection, the need for additional procedures, failure to diagnosis a condition, and creating a complication requiring operation were discussed with the patient. The patient concurred with the proposed plan, giving consent. Preparation: Patient was prepped in the usual sterile fashion. The patient was prepped with alcohol. [facility] LARGE JOINT/BURSA INJECTION AND/OR ASPIRATION: R kneeon 09-01-2022 ARABELLA Anderson 09/01/2022 1:17 PM LARGE JOINT/BURSA INJECTION AND/OR ASPIRATION: R knee Date/Time: 09/01/2022 1:00 PM Supporting Documentation Indications: pain and osteoarthritis Procedure Details: Location: knee - R knee Local Anesthetic: ethyl chloride (cold spray) Needle size: 22 G Approach: anterolateral Medication Verification: I have personally verified and performed the final check of the medication(s) used in this procedure prior to administration. The following items were included during the verification process for medication(s) administered: drug name, strength, volume, expiration, physical integrity and appearance of the medication(s). Medications administered: 20 mg Sodium Hyaluronate 20 MG/2ML Patient tolerance: patient tolerated the procedure well with no immediate complications Consent: Consent was obtained prior to the procedure after discussion of the risks, benefits and alternatives, and expected outcomes were discussed with the patient. The possibilities of reaction to medication, bleeding, infection, the need for additional procedures, failure to diagnosis a condition, and creating a complication requiring operation were discussed with the patient. The patient concurred with the proposed plan, giving consent. Preparation: Patient was prepped in the usual sterile fashion. The patient was prepped with alcohol. [facility] No Panel Informationon 09-01 [facility] Radiology Study observation (narrative) [facility] No Panel Informationon 08-29 Radiology Study observation (narrative) [facility] LARGE JOINT/BURSA INJECTION AND/OR ASPIRATION: L kneeon 08-25-2022 Brice Valdez, [facility] 08/29/2022 12:59 PM LARGE JOINT/BURSA INJECTION AND/OR ASPIRATION: L knee Date/Time: 08/25/2022 1:00 PM Supporting Documentation Indications: pain and osteoarthritis Procedure Details: Location: knee - L knee Local Anesthetic: ethyl chloride (cold spray) Needle size: 22 G Approach: anterolateral Medication Verification: I have personally verified and performed the final check of the medication(s) used in this procedure prior to administration. The following items were included during the verification process for medication(s) administered: drug name, strength, volume, expiration, physical integrity and appearance of the medication(s). Medications administered: 20 mg Sodium Hyaluronate 20 MG/2ML Patient tolerance: patient tolerated the procedure well with no immediate complications Consent: Consent was obtained prior to the procedure after discussion of the risks, benefits and alternatives, and expected outcomes were discussed with the patient. The possibilities of reaction to medication, bleeding, infection, the need for additional procedures, failure to diagnosis a condition, and creating a complication requiring operation were discussed with the patient. The patient concurred with the proposed plan, giving consent. Preparation: Patient was prepped in the usual sterile fashion. The patient was prepped with alcohol. [facility] LARGE JOINT/BURSA INJECTION AND/OR ASPIRATION: R kneeon 08-25-2022 Brice Valdez, [facility] 08/29/2022 12:59 PM LARGE JOINT/BURSA INJECTION AND/OR ASPIRATION: R knee Date/Time: 08/25/2022 1:00 PM Supporting Documentation Indications: pain and osteoarthritis Procedure Details: Location: knee - R knee Local Anesthetic: ethyl chloride (cold spray) Needle size: 22 G Approach: anterolateral Medication Verification: I have personally verified and performed the final check of the medication(s) used in this procedure prior to administration. The following items were included during the verification process for medication(s) administered: drug name, strength, volume, expiration, physical integrity and appearance of the medication(s). Medications administered: 20 mg Sodium Hyaluronate 20 MG/2ML Patient tolerance: patient tolerated the procedure well with no immediate complications Consent: Consent was obtained prior to the procedure after discussion of the risks, benefits and alternatives, and expected outcomes were discussed with the patient. The possibilities of reaction to medication, bleeding, infection, the need for additional procedures, failure to diagnosis a condition, and creating a complication requiring operation were discussed with the patient. The patient concurred with the proposed plan, giving consent. Preparation: Patient was prepped in the usual sterile fashion. The patient was prepped with alcohol. [facility] No Panel Informationon 08-25 [facility] No Panel Informationon 02-18 Radiology Study observation (narrative) [facility] LG Jt Injection/Arthrocentes is: R glenohumeralon 02-13-2022 Charly Dias CNP 02/13/2022 9:28 PM LG Jt Injection/Arthrocentes is: R glenohumeral Date/Time: 02/13/2022 9:26 PM Performed by: Charly Dias CNP Authorized by: Charly Dias CNP CPT 56621 - Large Joint Arthrocentesis: Consent given by: Patient Time out: Immediately prior to the procedure a time out was called Physician or proceduralist has discussed critical or nonroutine steps, procedure duration and anticipated blood loss: Yes Supporting Documentation: Indications: Pain and diagnostic evaluation Procedure Details: Location: Shoulder Site: R glenohumeral Prep: patient was prepped and draped in usual sterile fashion Needle size: 22 G Approach: Posterior Medications: 40 mg triamcinolone acetonide 40 mg/mL Anesthetic amount (mL): 2 Patient tolerance: Patient tolerated the procedure well with no immediate complications [facility] LARGE JOINT/BURSA INJECTION AND/OR ASPIRATION: L kneeon 02-11-2022 ARABELLA Anderson 02/11/2022 1:18 PM LARGE JOINT/BURSA INJECTION AND/OR ASPIRATION: L knee Date/Time: 02/11/2022 1:00 PM Supporting Documentation Indications: pain and osteoarthritis Procedure Details: Location: knee - L knee Local Anesthetic: ethyl chloride (cold spray) Needle size: 22 G Approach: anteromedial Medication Verification: I have personally verified and performed the final check of the medication(s) used in this procedure prior to administration. The following items were included during the verification process for medication(s) administered: drug name, strength, volume, expiration, physical integrity and appearance of the medication(s). Medications administered: 20 mg Sodium Hyaluronate 20 MG/2ML Patient tolerance: patient tolerated the procedure well with no immediate complications Consent: Consent was obtained prior to the procedure after discussion of the risks, benefits and alternatives, and expected outcomes were discussed with the patient. The possibilities of reaction to medication, bleeding, infection, the need for additional procedures, failure to diagnosis a condition, and creating a complication requiring operation were discussed with the patient. The patient concurred with the proposed plan, giving consent. Preparation: Patient was prepped in the usual sterile fashion. The patient was prepped with alcohol. [facility] LARGE JOINT/BURSA INJECTION AND/OR ASPIRATION: R kneeon 02-11-2022 ARABELLA Anderson 02/11/2022 1:18 PM LARGE JOINT/BURSA INJECTION AND/OR ASPIRATION: R knee Date/Time: 02/11/2022 1:00 PM Supporting Documentation Indications: pain and osteoarthritis Procedure Details: Location: knee - R knee Local Anesthetic: ethyl chloride (cold spray) Needle size: 22 G Approach: anterolateral Medication Verification: I have personally verified and performed the final check of the medication(s) used in this procedure prior to administration. The following items were included during the verification process for medication(s) administered: drug name, strength, volume, expiration, physical integrity and appearance of the medication(s). Medications administered: 20 mg Sodium Hyaluronate 20 MG/2ML Patient tolerance: patient tolerated the procedure well with no immediate complications Consent: Consent was obtained prior to the procedure after discussion of the risks, benefits and alternatives, and expected outcomes were discussed with the patient. The possibilities of reaction to medication, bleeding, infection, the need for additional procedures, failure to diagnosis a condition, and creating a complication requiring operation were discussed with the patient. The patient concurred with the proposed plan, giving consent. Preparation: Patient was prepped in the usual sterile fashion. The patient was prepped with alcohol. [facility] No Panel Informationon 02-11 [facility] Radiology Study observation (narrative) [facility] LARGE JOINT/BURSA INJECTION AND/OR ASPIRATION: L kneeon 01-28-2022 Brice Valdez, [facility] 02/18/2022 10:41 PM LARGE JOINT/BURSA INJECTION AND/OR ASPIRATION: L knee Date/Time: 01/28/2022 1:20 PM Supporting Documentation Indications: pain and osteoarthritis Procedure Details: Location: knee - L knee Local Anesthetic: ethyl chloride (cold spray) Needle size: 22 G Approach: anterolateral Medication Verification: I have personally verified and performed the final check of the medication(s) used in this procedure prior to administration. The following items were included during the verification process for medication(s) administered: drug name, strength, volume, expiration, physical integrity and appearance of the medication(s). Medications administered: 20 mg Sodium Hyaluronate 20 MG/2ML Patient tolerance: patient tolerated the procedure well with no immediate complications Consent: Consent was obtained prior to the procedure after discussion of the risks, benefits and alternatives, and expected outcomes were discussed with the patient. The possibilities of reaction to medication, bleeding, infection, the need for additional procedures, failure to diagnosis a condition, and creating a complication requiring operation were discussed with the patient. The patient concurred with the proposed plan, giving consent. Preparation: Patient was prepped in the usual sterile fashion. The patient was prepped with alcohol. [facility] LARGE JOINT/BURSA INJECTION AND/OR ASPIRATION: R kneeon 01-28-2022 Brice Valdez, [facility] 02/18/2022 10:41 PM LARGE JOINT/BURSA INJECTION AND/OR ASPIRATION: R knee Date/Time: 01/28/2022 1:20 PM Supporting Documentation Indications: pain and osteoarthritis Procedure Details: Location: knee - R knee Local Anesthetic: ethyl chloride (cold spray) Needle size: 22 G Approach: anterolateral Medication Verification: I have personally verified and performed the final check of the medication(s) used in this procedure prior to administration. The following items were included during the verification process for medication(s) administered: drug name, strength, volume, expiration, physical integrity and appearance of the medication(s). Medications administered: 20 mg Sodium Hyaluronate 20 MG/2ML Patient tolerance: patient tolerated the procedure well with no immediate complications Consent: Consent was obtained prior to the procedure after discussion of the risks, benefits and alternatives, and expected outcomes were discussed with the patient. The possibilities of reaction to medication, bleeding, infection, the need for additional procedures, failure to diagnosis a condition, and creating a complication requiring operation were discussed with the patient. The patient concurred with the proposed plan, giving consent. Preparation: Patient was prepped in the usual sterile fashion. The patient was prepped with alcohol. [facility] No [facility] 01-[facility] 4 Viewson Body surface area Derived from formula 1.51 m2 [facility] LATERAL/ SUNRISE VIEWS were obtained of the right knee. Taken in our office and interpreted by me revealed the following: No fractures, disloactions, or subluxations. They reveal moderate arthritic changes of the medial compartment. They reveal moderate arthritic changes of the lateral compartment. They reveal mild arthritic changes of the patellofemoral joint. There is not loose bodies. There is not osteochondral lesions. No other acute osseous abnormalities. Calcific meniscus medially and laterally. [facility] Radiology Study observation (narrative) [facility] Absolute lymphocyte counton 12-26-2021 Lymphocytes Auto (Unsp spec) [#/Vol] 1.66 10*3/uL 0.83-4.51 [facility] Work Phone: Basophil percentageon 2021 Basophils/100 WBC (Bld) 0.6 % 0-1 [facility] Work Phone: Eosinophils/100 WBC (Bld) 0.5 % 0-5 [facility] Work Phone: Neutrophils (Bld) [#/Vol] 4.0 10*3/uL 2.0-7.7 [facility] Work Phone: Neutrophils/100 WBC (Bld) 61.6 % 47-70 [facility] Work Phone: WBC (Bld) [#/Vol] 6.5 10*3/uL 4.4-11.0 [facility] Work Phone: Blood erythrocytes count (nu mber/volume)on 12-26-2021 RBC (Bld) [#/Vol] 4.34 10*6/uL 4.2-5.4 [facility] Work Phone: Blood hemoglobin measurement (mass/volume)on 12-26-2021 Hemoglobin (Bld) [Mass/Vol] 13.2 g/dL 12.0-15.0 [facility] Work Phone: [phone] Blood lymphocytes/100 leukoc yteson 12-26-2021 Lymphocytes/100 WBC (Bld) 25.6 % 19-41 [facility] Work Phone: [phone] Blood monocytes/100 leukocyt eson 12-26-2021 Monocytes/100 WBC (Bld) 11.4 % 0-10 [facility] Work Phone: Blood platelet mean volumeon 12-26-2021 Platelet mean volume (Bld) [Entitic vol] 10.9 fL 6.2-12.0 [facility] Work Phone: Determination of erythrocyte mean corpuscular volume (MCV)on 12-26-2021 MCV (RBC) [Entitic vol] 94.2 fL 81-99 [facility] Work Phone: Hematocrit Auto (Bld) [Volum e fraction]on 12-26-2021 Hematocrit (Bld) [Volume fraction] 40.9 % 37-47 [facility] Work Phone: Laboratory - Hematology and Cell countson 12-26-2021 Erythrocyte distribution width (RBC) [Entitic vol] 43.5 fL 35.1-43.9 [facility] Work Phone: [phone] Erythrocyte distribution width (RBC) [Ratio] 12.5 % 11.6-14.6 [facility] Work Phone: [phone] Immature granulocytes/100 WBC (Bld) 0.300 % 0.0-0.9 [facility] Work Phone: Comment on above: IG% - Immature Granu locytes (promyelocytes, myelocytes and metamyelocytes) > 1% indicates that a LEFT SHIFT is Present. MCH (RBC) [Entitic mass] 30.4 pg 27.0-32.0 [facility] Work Phone: Nucleated RBC/100 WBC (Bld) [Ratio] 0 % 0-5 [facility] Work Phone: MCHC Auto (RBC) [Mass/Vol]on 12-26-2021 MCHC (RBC) [Mass/Vol] 32.3 g/dL 32-36 [facility] Work Phone: Platelets bldon 12-26-2021 Platelets (Bld) [#/Vol] 230 10*3/uL 150-450 [facility] Work Phone: Absolute lymphocyte counton 11-18-2021 Lymphocytes Auto (Unsp spec) [#/Vol] 1.05 10*3/uL 0.83-4.51 [facility] Work Phone: Alternaria alternata IgE ser umon 11-18-2021 A. alternata IgE Qn (S) <0.10 kU/L Class 0 [facility] Work Phone: Basophil percentageon 2021 Basophils/100 WBC (Bld) 0.8 % 0-1 [facility] Work Phone: Eosinophils/100 WBC (Bld) 1.6 % 0-5 [facility] Work Phone: Neutrophils (Bld) [#/Vol] 1.9 10*3/uL 2.0-7.7 [facility] Work Phone: Neutrophils/100 WBC (Bld) 50.9 % 47-70 [facility] Work Phone: WBC (Bld) [#/Vol] 3.6 10*3/uL 4.4-11.0 [facility] Work Phone: Blood erythrocytes count (nu mber/volume)on 04-04-2022 RBC (Bld) [#/Vol] 3.98 10*6/uL 4.2-5.4 [facility] Work Phone: Blood hemoglobin measurement (mass/volume)on 11-18-2021 Hemoglobin (Bld) [Mass/Vol] 12.5 g/dL 12.0-15.0 [facility] Work Phone: [phone] Blood lymphocytes/100 leukoc yteson 11-18-2021 Lymphocytes/100 WBC (Bld) 28.8 % 19-41 [facility] Work Phone: [phone] monocytes/100 leukocyt eson 11-18-2021 Monocytes/100 WBC (Bld) 17.6 % 0-10 [facility] Work Phone: [phone] Blood platelet mean volumeon 11-18-2021 Platelet mean volume (Bld) [Entitic vol] 9.7 fL 6.2-12.0 [facility] Work Phone: [phone] Determination of erythrocyte mean corpuscular volume (MCV)on 11-18-2021 MCV (RBC) [Entitic vol] 94.7 fL 81-99 [facility] Work Phone: [phone] Hematocrit Auto (Bld) [Volum e fraction]on 11-18-2021 Hematocrit (Bld) [Volume fraction] 37.7 % 37-47 [facility] Work Phone: [phone] Laboratory - Hematology and Cell countson 11-18-2021 Erythrocyte distribution width (RBC) [Entitic vol] 44.3 fL 35.1-43.9 [facility] Work Phone: [phone] Erythrocyte distribution width (RBC) [Ratio] 12.6 % 11.6-14.6 [facility] Work Phone: [phone] Immature granulocytes/100 WBC (Bld) 0.300 % 0.0-0.9 [facility] Work Phone: [phone] Comment on above: IG% - Immature Granu locytes (promyelocytes, myelocytes and metamyelocytes) > 1% indicates that a LEFT SHIFT is Present. MCH (RBC) [Entitic mass] 31.4 pg 27.0-32.0 [facility] Work Phone: [phone] Nucleated RBC/100 WBC (Bld) [Ratio] 0 % 0-5 [facility] Work Phone: [phone] MCHC Auto (RBC) [Mass/Vol]on 11-18-2021 MCHC (RBC) [Mass/Vol] 33.2 g/dL 32-36 [facility] Work Phone: [phone] Panel Informationon 11-18 Cat Hair Allergen <0.10 kU/L Class 0 [facility] Work Phone: [phone] Common Ragweed (Short) Allergen <0.10 kU/L Class 0 [facility] Work Phone: [phone] Immunoglobulin E 138 IU/mL 6-495 [facility] Work Phone: [phone] Maple (Sharon) Allergen IgE Ab <0.10 kU/L Class 0 [facility] Work Phone: [phone] Miscellaneous Test See comment [facility] Work Phone: [phone] Comment on above: TEST RESULT LIMITSMa nnose Binding Lectin (MBL), 211 ng/mL Low: 0 - 50 Intermediate: 51 - 500 Normal: >500 TESTING PERFORMED AT [facility]. ORIGINAL REPORT ON FILE IN LAB CONTAINS ADDITIONAL TEST SITE INFORMATION. ____ Mouse Urine Allergen IgE Antibody <0.10 kU/L Class 0 [facility] Work Phone: [phone] Comment on above: Performed at: [facility] rebecca [address] [id number] Director: Angelo Joe MD, Phone: [phone] RAST Comment Comment . [facility] Work Phone: Comment on above: Levels of Specific I gE Class Description of Class ----- < 0.10 0 Negative 0.10 - 0.31 0/I Equivocal/Low 0.32 - 0.55 I Low 0.56 - 1.40 II Moderate 1.41 - 3.90 III High 3.91 - 19.00 IV Very High 19.01 - 100.00 V Very High >100.00 Very High Total Complement (CH50) > 60 U/mL >41 [facility] Work Phone: Comment on above: Age Male Female 1 - 30 days Not Estab. Not Estab. 31 days - 6 months >32 >20 7 months - 17 years >39 >39 >17 years >41 >41 NOTE: The adult (>17 years) reference interval range is used to flag abnormals on this report. If the patient is 17 years old or younger, use the table above to determine out of range values.Performed at: - [facility] [address] [id number] Director: Rajan Mckeon PhD, Phone: [phone] at: [facility] [address] [id number] Director: Angelo Joe MD, Phone: [phone] Vitamin D 25-Hydroxy 37.4 ng/mL [facility] Work Phone: Comment on above: Vitamin D 25(OH) Sta tus Range Deficiency <20 ng/mL (50nmol/L) Insufficiency 20 - 30 ng/mL (50 - 75 nmol/L) Sufficiency 30 - 100 ng/mL (75 - 250 nmol/L) Toxicity >100 ng/mL (>250 nmol/L) [place] Tree Allergen <0.10 kU/L Class 0 [facility] Work Phone: Platelets bldon 11-18-2021 Platelets (Bld) [#/Vol] 254 10*3/uL 150-450 [facility] Work Phone: Rough pigweed specific IgE a ntibody assayon 11-18-2021 Rough Pigweed IgE Qn (S) <0.10 kU/L Class 0 [facility] Work Phone: Serum Salvadorean sycamore IgE antibody assay (units/volume)on 11-18-2021 Salvadorean [place] IgE Qn (S) <0.10 kU/L Class 0 [facility] Work Phone: Serum Aspergillus fumigatus IgE antibody assay (units/volume)on 11-18-2021 A. fumigatus IgE Qn (S) <0.10 kU/L Class 0 [facility] Work Phone: Serum Bermuda grass IgE anti body assay (units/volume)on 11-18-2021 Bermuda grass IgE Qn (S) <0.10 kU/L Class 0 [facility] Work Phone: Serum Cladosporium herbarum IgE antibody assay (units/volume)on 11-18-2021 C. herbarum IgE Qn (S) <0.10 kU/L Class 0 [facility] Work Phone: Serum Dermatophagoides farin ae specific IgE antibody assay (units/volume)on 11-18-2021 Salvadorean house dust mite IgE Qn (S) <0.10 kU/L Class 0 [facility] Work Phone: Serum house dust mi te IgE antibody assay (units/volume)on 11-18-2021 house dust mite IgE Qn (S) <0.10 kU/L Class 0 [facility] Work Phone: Serum Penicillium notatum Ig E antibody assay (units/volume)on 11-18-2021 P. notatum IgE Qn (S) <0.10 kU/L Class 0 [facility] Work Phone: Serum Periplaneta americana IgE antibody assay (units/volume)on 11-18-2021 Salvadorean Cockroach IgE Qn (S) <0.10 kU/L Class 0 [facility] Work Phone: Serum Cypriot thistle specif ic IgE antibody assayon 11-18-2021 Saltwort IgE Qn (S) <0.10 kU/L Class 0 [facility] Work Phone: Serum birch specific IgE ant ibody assayon 11-18-2021 Silver Birch IgE Qn (S) <0.10 kU/L Class 0 [facility] Work Phone: [phone] Serum black walnut IgE antib bety assay (units/volume)on 11-18-2021 Black Berkshire IgE Qn (S) <0.10 kU/L Class 0 [facility] Work Phone: [phone] Serum cottonwood IgE antibod y assay (units/volume)on 11-18-2021 Pierre Part IgE Qn (S) <0.10 kU/L Class 0 [facility] Work Phone: Serum dog epithelium IgE ant ibody assay (units/volume)on 11-18-2021 Dog epithelium IgE Qn (S) <0.10 kU/L Class 0 [facility] Work Phone: [phone] Serum mountain cedar specifi c IgE antibody assayon 11-18-2021 Mountain Juniper IgE Qn (S) <0.10 kU/L Class 0 [facility] Work Phone: Serum or plasma IgA measurem ent (mass/volume)on 11-18-2021 IgA [Mass/Vol] 165 mg/dL 64-422 [facility] Work Phone: [phone] Serum or plasma IgG measurem ent (mass/volume)on 11-18-2021 IgG [Mass/Vol] 855 mg/dL [phone] [facility] Work Phone: Serum or plasma IgM measurem ent (mass/volume)on 11-18-2021 IgM [Mass/Vol] 271 mg/dL 26-217 [facility] Work Phone: [phone] Serum pecan or hickory nut I gE antibody assay (units/volume)on 11-18-2021 Pecan or Lockhart Nut IgE Qn (S) <0.10 kU/L Class 0 [facility] Work Phone: Serum sheep sorrel IgE antib bety assay (units/volume)on 11-18-2021 Sheep Bouse IgE Qn (S) <0.10 kU/L Class 0 [facility] Work Phone: Serum taj IgE antibody a ssay (units/volume)on 11-18-2021 Taj IgE Qn (S) <0.10 kU/L Class 0 [facility] Work Phone: Serum white madhavi IgE antibody assay (units/volume)on 11-18-2021 White Madhavi IgE Qn (S) <0.10 kU/L Class 0 [facility] Work Phone: Serum white elm IgE antibody assay (units/volume)on 11-18-2021 White Elm IgE Qn (S) <0.10 kU/L Class 0 [facility] Work Phone: Serum white mulberry IgE ant ibody assay (units/volume)on 11-18-2021 White mulberry IgE Qn (S) <0.10 kU/L Class 0 [facility] Work Phone: COVID-19, MOLECULARon 2021 SARS-CoV-2 (COVID-19) RNA TRISTON+probe Ql (Unsp spec) Not detected Normal Not Detected [facility] Comment on above: Result Comment: This test was performed under the FDA's Emergency Use Authorization (EUA). Testing was performed using the Arpit SARS-CoV-2 RT-PCR assay on the Trinity Arpit 6800 System. This test has not been approved for use in asymptomatic patients and its performance in this patient population has not been evaluated. Negative results do not rule out the presence of SARS-CoV-2/COVID-19. Fact sheets for this EUA can be found at the following links: For Healthcare Providers: https://www.fda.gov/media/533954/download For Patients: https://www.fda.gov/media/925916/download Performed By: #### L [id number] #### [facility] [address] [place] [address] Gadiel Oden M.D. [id number] No Panel Informationon 09-25 POC SARS CoV-2 Antigen Negative [facility] Work Phone: No Panel Informationon 08-26 POC SARS CoV-2 Antigen Negative [facility] Work Phone: ANCAon 04-27-2020 ATYPICAL PANCA <1:20 Normal Neg:<1:20 [facility] Comment on above: Result Comment: The atypical pANCA pattern has been observed in a significant percentage of patients with ulcerative colitis, primary sclerosing cholangitis and autoimmune hepatitis. Performed By: #### L 500.49996, L500.82409, L500.27223, L550.87414, L550.32604, L700.68566 #### [facility] [address] [place] [address] C-ANCA <1:20 Normal Neg:<1:20 [facility] Comment on above: Performed By: #### L 500.44049, L500.39617, L500.76959, L550.16986, L550.02690, L700.05993 #### [facility] [address] [place] [address] P-ANCA <1:20 Normal Neg:<1:20 [facility] Comment on above: Result Comment: The presence of positive fluorescence exhibiting P-ANCA or C-ANCA patterns alone is not specific for the diagnosis of Suzanne's Granulomatosis (WG) or microscopic polyangiitis. Decisions about treatment should not be based solely on ANCA IFA results. The [employer] ANCA [employer] Consensus recommends follow up testing of positive sera with both AZ- 3 and MPO-ANCA enzyme immunoassays. As many as 5% serum samples are positive only by EIA. Ref. AM J Clin Pathol 1999;111:507-513. Performed By: #### L 500.50613, L500.96513, L500.01971, L550.13002, L550.54681, L700.55642 #### [facility] [address] [place] [address] CCP-ABSon 04-27-2020 CCP-ABS 12 units Normal 0-19 [facility] Comment on above: Result Comment: Nega tive <20 Weak positive 20 - 39 Moderate positive 40 - 59 Strong positive >59 Performed At: [facility] [address] [place], [place] [id number] Mike Tolentino PhD [id number] Performed At: [facility] [address] [id number] Heath Stephens [place] [id number] Performed By: #### L 500.66582, L500.43300, L500.14460, L550.94612, L550.91337, L700.79534 #### [facility] [address] [place] [address] CBC W/DIFFon 04-25-2020 BASO ABS 0.10 K/CU MM Normal 0-0.2 [facility] Comment on above: Performed By: #### L 500.75997, L500.17455, L500.25954, L550.50043, L550.37643, L700.03020 #### [facility] [address] [place] [address] Basophils/100 WBC (Bld) 0.9 % Normal 0-2 [facility] Comment on above: Performed By: #### L 500.47344, L500.07830, L500.56167, L550.85222, L550.69030, L700.91466 #### [facility] [address] [place] [address] EOS ABS 0.00 K/CU MM Normal 0-0.5 [facility] Comment on above: Performed By: #### L 500.96830, L500.21525, L500.08810, L550.64825, L550.24635, L700.41310 #### [facility] [address] [place] [address] Eosinophils/100 WBC (Bld) 0.7 % Normal 0-5 [facility] Comment on above: Performed By: #### L 500.96992, L500.29228, L500.34093, L550.86713, L550.55218, L700.51243 #### [facility] [address] [place] [address] Erythrocyte distribution width (RBC) [Ratio] 13.8 % Normal 11-14.5 [facility] Comment on above: Performed By: #### L 500.56171, L500.60442, L500.44414, L550.98022, L550.92556, L700.86956 #### [facility] [address] [place] [address] Hematocrit (Bld) [Volume fraction] 39.2 % Normal 35.0-47.0 [facility] Comment on above: Performed By: #### L 500.14388, L500.69732, L500.23515, L550.35214, L550.76298, L700.26289 #### [facility] [address] [place] [address] Hemoglobin (Bld) [Mass/Vol] 12.9 g/dL Normal 11.5-15.5 [facility] Comment on above: Performed By: #### L 500.87780, L500.40005, L500.03891, L550.09466, L550.90037, L700.72527 #### [facility] [address] [place] [address] IMMATR GRAN ABS 0.00 K/CU MM Normal Less than 2 [facility] Comment on above: Performed By: #### L 500.33680, L500.48739, L500.21027, L550.26902, L550.46405, L700.18448 #### [facility] [address] [place] [address] IMMATURE GRAN % 0.0 % Normal Less than 2 [facility] Comment on above: Performed By: #### L 500.76569, L500.60443, L500.38008, L550.80237, L550.37225, L700.05515 #### [facility] [address] [place] [address] Lymphocytes (Bld) [#/Vol] 1.50 K/CU MM Normal 0.9-4.4 [facility] Comment on above: Performed By: #### L 500.23429, L500.50674, L500.58694, L550.50975, L550.57769, L700.29525 #### [facility] [address] [place] [address] Lymphocytes/100 WBC (Bld) 27.3 % Normal 20-40 [facility] Comment on above: Performed By: #### L 500.81583, L500.35758, L500.99949, L550.52749, L550.77430, L700.64658 #### [facility] [address] [place] [address] MCHC (RBC) [Mass/Vol] 32.9 g/dL Normal 32.0-36.0 [facility] Comment on above: Performed By: #### L 500.14550, L500.38850, L500.42682, L550.11415, L550.15722, L700.17111 #### [facility] [address] [place] [address] MCV (RBC) [Entitic vol] 94.7 fL Normal 80.0-99.0 [facility] Comment on above: Performed By: #### L 500.14825, L500.83818, L500.68865, L550.00509, L550.17531, L700.95700 #### [facility] [address] [place] [address] MONO ABS 0.60 K/CU MM Normal 0.1-1.1 [facility] Comment on above: Performed By: #### L 500.44217, L500.56724, L500.30115, L550.15383, L550.26622, L700.00394 #### [facility] [address] [place] [address] Monocytes/100 WBC (Bld) 11.5 % High 2-10 [facility] Comment on above: Performed By: #### L 500.98985, L500.12481, L500.43876, L550.38300, L550.70595, L700.23949 #### [facility] [address] [place] [address] NEUTROPHIL ABS 3.30 K/CU MM Normal 2.0-8.3 [facility] Comment on above: Performed By: #### L 500.00945, L500.15542, L500.66293, L550.30092, L550.78827, L700.58152 #### [facility] [address] [place] [address] Neutrophils/100 WBC (Bld) 59.6 % Normal 45-75 [facility] Comment on above: Performed By: #### L 500.28324, L500.97511, L500.51689, L550.25891, L550.50710, L700.16532 #### [facility] [address] [place] [address] Nucleated RBC/100 WBC (Bld) [Ratio] 0.0 % Normal Less than 1 [facility] Comment on above: Performed By: #### L 500.05370, L500.26433, L500.60060, L550.52020, L550.17933, L700.88432 #### [facility] [address] [place] [address] Platelet mean volume (Bld) [Entitic vol] 10.2 fL Normal 9.4-12.4 [facility] Comment on above: Performed By: #### L 500.01692, L500.47466, L500.02576, L550.81736, L550.83816, L700.28301 #### [facility] [address] [place], [place] [address] Platelets (Bld) [#/Vol] 200 K/CU MM Normal 150-450 [facility] Comment on above: Performed By: #### L 500.66445, L500.43814, L500.10541, L550.77529, L550.17855, L700.79691 #### [facility] [address] [place] [address] RBC (Bld) [#/Vol] 4.14 M/CU MM Normal 3.90-5.30 [facility] Comment on above: Performed By: #### L 500.28292, L500.21284, L500.37887, L550.15644, L550.02339, L700.71177 #### [facility] [address] [place], [place] [address] WBC (Bld) [#/Vol] 5.6 K/CUMM Normal 4.5-11.0 [facility] Comment on above: Performed By: #### L 500.94785, L500.34300, L500.48266, L550.75733, L550.51478, L700.55113 #### [facility] [address] [place], [place] [address] CMPon 04-25-2020 Albumin [Mass/Vol] 3.6 g/dL Normal 3.2-5.0 [facility] Comment on above: Performed By: #### L 500.26871, L500.00196, L500.75606, L550.74294, L550.78349, L700.48446 #### [facility] [address] [place] [address] Albumin/Globulin [Mass ratio] 1.2 {ratio} Normal 0.8-2.0 [facility] Comment on above: Performed By: #### L 500.77529, L500.48317, L500.96137, L550.19191, L550.52557, L700.38750 #### [facility] [address] [place] [address] ALK PHOS 60 U/L Normal 45-117 [facility] Comment on above: Performed By: #### L 500.29843, L500.66928, L500.70552, L550.92972, L550.83074, L700.66668 #### [facility] [address] [place] [address] ALT [Catalytic activity/Vol] 28 U/L Normal 13-61 [facility] Comment on above: Result Comment: RESU LTS MAY BE FALSELY DEPRESSED AFTER THE ADMINISTRATION OF SULFASALAZINE AND/OR SULFAPYRIDINE. Performed By: #### L 500.83814, L500.75201, L500.72060, L550.20577, L550.11895, L700.18819 #### [facility] [address] [place], [place] [address] Anion gap [Moles/Vol] 5 mmol/L Normal 5-16 [facility] Comment on above: Performed By: #### L 500.62131, L500.89552, L500.24381, L550.95903, L550.90580, L700.81750 #### [facility] [address] [place], [place] [address] BILI TOTAL 0.30 MG/DL Normal 0.2-1.0 [facility] Comment on above: Performed By: #### L 500.77854, L500.10838, L500.01916, L550.61771, L550.76940, L700.24963 #### [facility] [address] [place] [address] Calcium [Mass/Vol] 10.0 mg/dL Normal 8.5-10.5 [facility] Comment on above: Result Comment: NOTE NEW NORMAL RANGE DUE TO REAGENT CHANGE Performed By: #### L 500.20281, L500.67681, L500.04506, L550.40677, L550.13386, L700.08791 #### [facility] [address] [place] [address] Chloride [Moles/Vol] 102 mmol/L Normal 98-107 [facility] Comment on above: Performed By: #### L 500.08190, L500.46373, L500.38778, L550.36203, L550.52745, L700.75679 #### [facility] [address] [place] [address] CO2 [Moles/Vol] 30.0 mmol/L Normal 21-32 [facility] Comment on above: Performed By: #### L 500.38261, L500.14356, L500.12309, L550.95252, L550.83831, L700.24584 #### [facility] [address] [place] [address] Creatinine [Mass/Vol] 0.81 mg/dL Normal 0.510-0.950 [facility] Comment on above: Result Comment: Taylor ents receiving either N-Acetylcysteine (NAC) or Metamizole prior to venipuncture, may have falsely depressed results. Performed By: #### L 500.11044, L500.44113, L500.96703, L550.17097, L550.72697, L700.36274 #### [facility] [address] [place] [address] Globulin (S) [Mass/Vol] 2.9 g/dL Normal 2.2-4.2 [facility] Comment on above: Performed By: #### L 500.91892, L500.46585, L500.60142, L550.40262, L550.19323, L700.78326 #### [facility] [address] [place] [address] Glucose [Mass/Vol] 100 mg/dL Normal 70-100 [facility] Comment on above: Result Comment: 70-1 00- Normal Fasting; 100-125 Impaired Fasting; greater than 126 on more than one result- Diabetes. ADA guidelines. Results may be falsely elevated after the administration of Sulfapyridine. Results may be falsely depressed after the administration of Sulfasalazine. Performed By: #### L 500.36513, L500.12872, L500.38900, L550.32217, L550.44179, L700.12304 #### [facility] [address] [place] [address] Potassium [Moles/Vol] 4.0 mmol/L Normal 3.5-5.1 [facility] Comment on above: Performed By: #### L 500.21712, L500.72285, L500.27912, L550.72223, L550.13042, L700.62979 #### [facility] [address] [place] [address] Protein [Mass/Vol] 6.5 g/dL Normal 6.0-8.5 [facility] Comment on above: Performed By: #### L 500.41819, L500.96463, L500.37302, L550.21823, L550.78051, L700.29695 #### [facility] [address] [place], [place] [address] SGOT (AST) 28 U/L Normal 8-34 [facility] Comment on above: Result Comment: RESU LTS MAY BE FALSELY DEPRESSED AFTER THE ADMINISTRATION OF SULFASALAZINE AND/OR SULFAPYRIDINE. Performed By: #### L 500.32037, L500.54538, L500.76043, L550.15638, L550.70834, L700.03605 #### [facility] [address] [place] [address] Sodium [Moles/Vol] 137 mmol/L Normal 136-145 [facility] Comment on above: Performed By: #### L 500.15313, L500.14799, L500.01211, L550.26896, L550.04980, L700.67811 #### [facility] [address] [place] [address] Urea nitrogen [Mass/Vol] 27 mg/dL High 7-26 [facility] Comment on above: Performed By: #### L 500.58460, L500.14301, L500.97915, L550.79724, L550.78903, L700.12038 #### [facility] [address] [place] [address] Urea nitrogen/Creatinine [Mass ratio] 33 mg/mg High 15-24 [facility] Comment on above: Performed By: #### L 500.68870, L500.05156, L500.28123, L550.27790, L550.72149, L700.87409 #### [facility] [address] [place] [address] CRPon 04-25-2020 CRP [Mass/Vol] 0.4 mg/L Normal 0.00-0.32 [facility] Comment on above: Performed By: #### L 500.26325, L500.64623, L500.87767, L550.39555, L550.25826, L700.49937 #### [facility] [address] [place] [address] GFR ESTon 04-25-2020 IF AMER Greater than 60 Normal [facility] Comment on above: Performed By: #### L 500.94687, L500.03976, L500.50962, L550.96287, L550.95925, L700.12889 #### [facility] [address] [place] [address] IF non-AFR AMER Greater than 60 Normal [facility] Comment on above: Performed By: #### L 500.93235, L500.91240, L500.20532, L550.95426, L550.01585, L700.07723 #### [facility] [address] [place], [place] [id number] HAND 2 VIEWS BILATERALon HAND 2 VIEWS BILATERAL HAND 2 VIEWS BILATERAL Ordering Physician: Joseph Matt DO 04/25/2020 1:46 PM BILATERAL HANDS THREE VIEWS: Clinical Statement: Osteoarthritis, polyarthritis inflammatory Comparison: None FINDINGS: On the right side there is narrowing of the third metacarpal phalangeal joint with multiple subchondral cystic changes. There are mild osteoarthritic changes of the DIP joint of the second finger. There is chondrocalcinosis of the triangular fibrocartilage. On the left side there are arthritic changes with narrowing at the trapezium first metacarpal joint. The interphalangeal joints are maintained. There is chondrocalcinosis of the triangular fibrocartilage IMPRESSION: Scattered degenerative changes, greatest on the right side at the third metacarpophalangeal joint. ---- Electronic Signature on File ---- Signed By: Shaina Chan MD PhD [email or web address] Dictated: 04/25/2020 2:33 PM Signed: 04/25/2020 2:36 PM Reported By: SHAINA CHAN M.D. Signed By: SHAINA CHAN M.D. Normal [facility] HEPATITIS C ABon 04-25-2020 HCV AB NONREACTIVE Normal NONREACTIVE [facility] Comment on above: Result Comment: SCRE ENING TEST NEGATIVE NONREACTIVE HCV ANTIBODY SCREEN IS CONSISTENT WITH NO HCV INFECTION, UNLESS RECENT INFECTION IS SUSPECTED OR OTHER EVIDENCE EXISTS TO INDICATE HCV INFECTION Results were obtained with the AtellTellagence IM IgM assay. Values obtained with different manufactures' assay methods may not be used interchangeably. Performed By: #### L 540.06728 #### [facility] [address] [place] [address] KNEES 3 VIEWS BILATERALon KNEES 3 VIEWS BILATERAL KNEES 3 VIEWS BILATERAL Ordering Physician: Joseph Matt DO 04/25/2020 1:46 PM BILATERAL KNEES THREE VIEWS EACH: Clinical Statement: Osteoarthritis, polyarthritis inflammatory Comparison: Left knee 07/31/2007 FINDINGS: There is bilateral chondrocalcinosis. The joint spaces are preserved. No joint effusions. No lytic or sclerotic lesions. Mineralization is within normal limits. IMPRESSION: Bilateral chondrocalcinosis. ---- Electronic Signature on File ---- Signed By: Shaina Chan MD PhD [email or web address] Dictated: 04/25/2020 2:36 PM Signed: 04/25/2020 2:37 PM Reported By: SHAINA CHAN M.D. Signed By: SHAINA CHAN M.D. Normal [facility] PTH INTACTon 04-25-2020 PTH INTACT 46.5 PG/ML Normal 14-72 [facility] Comment on above: Performed By: #### L 550.79674 #### [facility] [address] [place] [address] RA FACTOR QUANTon 04-25-2020 RA FACTOR QUANT 5.0 IU/ML Normal 0-14.9 [facility] Comment on above: Result Comment: NOTE NEW NORMAL RANGE DUE TO REAGENT CHANGE Performed By: #### L 500.19514, L500.74826, L500.72564, L550.24862, L550.72079, L700.52898 #### [facility] [address] [place], [place] [id number] URIC ACIDon 04-25-2020 Urate [Mass/Vol] 6.2 mg/dL High 2.6-6.0 [facility] Comment on above: Result Comment: Taylor ents receiving Metamizole prior to venipuncture, may have falsely depressed results. Performed By: #### L 500.98172, L500.05145, L500.24489, L550.13333, L550.32991, L700.64262 #### [facility] [address] [place] [id number] 04-25-2020 [id number] 40.5 NG/ML Normal 30.0-100.0 [facility] Comment on above: Result Comment: Defi ciency Less than 20 ng/mL Insufficiency 20 - Less than 30 ng/mL Sufficiency 30 - 100 ng/mL Performed By: #### L 500.54224, L500.33926, L500.03283, L550.67135, L550.33661, L700.59694 #### [facility] [address] [place] [address] WSR/MODon 04-25-2020 WSR/MOD 21 MM/HR Normal 0-30 [facility] Comment on above: Performed By: #### L 500.84759, L500.84985, L500.36271, L550.19987, L550.06142, L700.46899 #### [facility] [address] [place], [place] [id number] LARGE JOINT INJECTIONon 0 Rohan Rausch MD 07/27/2018 6:56 AM LARGE JOINT INJECTION Date/Time: 07/23/2018 2:32 PM Supporting Documentation Indications: pain Procedure Details Location: hip - L greater trochanteric bursa Local Anesthetic Used: mL of ethyl chloride (cold spray) Preparation: with Betadine. Medication Verification: I have personally verified and performed the final check of the medication(s) used in this procedure prior to administration. The following items were included during the verification process for medication(s) administered: drug name, strength, volume, expiration, physical integrity and appearance of the medication(s). Invalid Interpretation Code [facility] Work Phone: LARGE JOINT INJECTIONon 06-18 Judie GalvezSUZETTE-TIRE RECAPPER 07/07/2018 2:50 PM LARGE JOINT INJECTION Date/Time: 07/07/2018 2:49 PM Consent: Consent was obtained prior to the procedure after discussion of the risks, benefits and alternatives, and expected outcomes were discussed with the patient. The possibilities of reaction to medication, bleeding, infection, the need for additional procedures, failure to diagnosis a condition, and creating a complication requiring operation were discussed with the patient. The patient concurred with the proposed plan, giving consent. Supporting Documentation Indications: pain and osteoarthritis Procedure Details Location: knee - L knee Local Anesthetic Used: mL of ethyl chloride (cold spray) Preparation: Patient was prepped in the usual sterile fashion with alcohol. Needle size: 22 G Approach: anterolateral Medication Verification: I have personally verified and performed the final check of the medication(s) used in this procedure prior to administration. The following items were included during the verification process for medication(s) administered: drug name, strength, volume, expiration, physical integrity and appearance of the medication(s). Medications administered: 20 mg Sodium Hyaluronate 20 MG/2ML Patient tolerance: patient tolerated the procedure well with no immediate complications Invalid Interpretation Code [facility] Work Phone: Judie Galvez SUZETTE-TIRE RECAPPER 07/07/2018 2:50 PM LARGE JOINT INJECTION Date/Time: 07/07/2018 2:49 PM Consent: Consent was obtained prior to the procedure after discussion of the risks, benefits and alternatives, and expected outcomes were discussed with the patient. The possibilities of reaction to medication, bleeding, infection, the need for additional procedures, failure to diagnosis a condition, and creating a complication requiring operation were discussed with the patient. The patient concurred with the proposed plan, giving consent. Supporting Documentation Indications: pain and osteoarthritis Procedure Details Location: knee - R knee Local Anesthetic Used: mL of ethyl chloride (cold spray) Preparation: Patient was prepped in the usual sterile fashion with alcohol. Needle size: 22 G Approach: anterolateral Medication Verification: I have personally verified and performed the final check of the medication(s) used in this procedure prior to administration. The following items were included during the verification process for medication(s) administered: drug name, strength, volume, expiration, physical integrity and appearance of the medication(s). Medications administered: 20 mg Sodium Hyaluronate 20 MG/2ML Patient tolerance: patient tolerated the procedure well with no immediate complications Invalid Interpretation Code [facility] Work Phone: Hemoglobin and Hematocriton 03-24-2018 Hematocrit Auto Volume Fraction (Bld) 39.3 % Invalid Interpretation Code 36 - 46 % [facility] Hemoglobin mass conc (Bld) 13.2 g/dL Invalid Interpretation Code 12 - 16 g/dL [facility] Interpretation and review of laboratory results Normal Invalid Interpretation Code [facility] POC Glucoseon 03-24-2018 Glucose mass conc 95 mg/dL Invalid Interpretation Code 65 - 99 mg/dL [facility] Interpretation and review of laboratory results Normal Invalid Interpretation Code [facility] PROGRESSon 11-17-2017 [facility] NOTES Normal [facility] Repor ton 07-22-2017 [facility] Report Type: OrthopedicDictated by: To be signed by: Transcribed by: Transcribed D/ Dictation D/ Report: DATE OF VISIT: June 03, 2017 Re: Cynthia Marie is here today in followup of her hand. At this point in time, the injection into her thumb has helped a fair amount. Her thumb is not well at this point but better than it was and currently well enough she can tolerate it. She continues to have significant problem with numbness and tingling. She has had a nerve study since I saw her last. That nerve study demonstrates primarily neuropathy in her hands. No evidence of nerve entrapment. Her exam today demonstrates that she has hands with atrophy bilaterally, brisk capillary refill. Skin is warm and dry. Good range of motion. She does have tenderness at the base of the thumb, particularly on the left side and a positive grind maneuver. There is deformity in that area consistent with OA. ASSESSMENT AND PLAN: Bilateral hand thumb arthritis. At this point, we are going to forego intervention. She does have underlying polyneuropathy on her nerve study. I do think she needs to have that evaluated, likely by a neurologist. She is currently in the midst of trying to find a new family doctor. I do have concern she has a history of blood sugar issues, whether diabetes or not, I am not sure. She is currently not taking any antiglycemic or hyperglycemic medication, but has not seen a primary care physician in several months and is really trying to find a new discharge planner. At this point, I am going to see her back in about 3 months and make further decisions on how to proceed with her thumbs based upon how she is doing. Normal [facility] MRI SPINE LUMBAR WITH AND WI THOUT CONTRASTon 06-30-2017 MRI SPINE LUMBAR WITH AND WITHOUT CONTRAST MRI SPINE LUMBAR WITH AND WITHOUT CONTRASTCLINICAL STATEMENT: Back pain, history of fall.TECHNIQUE: Multiplanar, multisequence imaging of the lumbar spine with and without the use of contrast. Approximately 5 mL of MultiHance was administered intravenously for the contrast portion of the examination.COMPARISON : 07/01/2005FINDINGS: The conus medullaris is not studied in detail, however appears satisfactory. Vertebral body heights are well-maintained. Multilevel disc desiccation.Bone marrow signal is age appropriate.No evidence of abnormal enhancement following contrast administration. Axial imaging correlates as follows:L5-S1: Mild facet arthrosis and ligamentum flavum laxity. Mild disc bulging without significant canal stenosis. There is mild right recess narrowing, no left recess narrowing. There is also moderate bilateral foraminal narrowing present.L4-L5: Mild to moderate facet arthrosis and moderate ligamentum flavum laxity. Diffuse posterior disc bulging without significant canal stenosis. There is mild bilateral recess narrowing. Moderate bilateral foraminal stenosis is also present.L3-L4: Mild to moderate facet arthrosis and ligamentum flavum laxity. Diffuse posterior disc bulging results in mild canal and recess narrowing. Moderate left and mild right foraminal stenosis.L2-L3: Normal.L1-L2: Normal.IMPRESSION: Multilevel degeneration as described above without significant canal stenosis. No evidence of abnormal enhancement. Normal [facility] PROGRESSon 06-17-2017 [facility] NOTES Normal [facility] Repor ton 05-13-2017 [facility] Report Type: OrthopedicDictated by: To be signed by: Transcribed by: Transcribed D/ Dictation D/ Report: DATE OF VISIT: 04/22/2017 Re: Cynthia Marie is here today with chief complaint of bilateral hand pain, worse on the left than the right. She has an exhaustive history of hand pain with multiple problems previously. She is status post carpal tunnel bilaterally a number of years ago. That helped her for awhile, but her numbness and tingling is coming back. Her thumbs are bothering her significantly on both sides, worse on the left than the right. She also has a trigger finger of the left long finger that has been injected, tried to break up a cyst previously, but this has been unsuccessful, and that finger is locking and catching. Her past medical history and intake sheet have been reviewed and is quite lengthy. On exam today, she is awake, alert, oriented x3. She 5 feet 3 inches, 49 kg. Exam of her left upper extremity demonstrates point tenderness at the base of the thumb, positive grind maneuver, deformity consistent with osteoarthritis. She is neurovascularly intact with a triggering long finger. Skin itself is warm and dry. There are diffuse arthritic changes throughout her hand with skin that is somewhat thin. Her sensation is intact to light touch. Her right hand has a very comparable exam with no triggering. She has tenderness at the thumb and the base of the thumb is abnormal in appearance, as well as having a positive grind maneuver. Skin again is neurovascularly intact, warm and dry. ASSESSMENT AND PLAN: Significant arthritis bilateral thumbs, as well as triggering of her left hand and, what appears to be, some recurrent carpal tunnel. At this point, I have recommended repeat nerve studies. I have injected the left basal joint of the thumb with a combination of ropivacaine and Depo-Medrol 40 mg aseptically after informed consent. I will see her back in about 2 months to make further decisions based on how she is doing. Normal [facility] Repor ton 05-12-2017 [facility] Report Type: OrthopedicDictated by: To be signed by: Transcribed by: Transcribed D/ Dictation D/ Report: DATE OF VISIT: 04/16/2017 Re: Cynthia Cisneros HISTORY OF PRESENT ILLNESS: Patient is here today for evaluation of her left hip pain. She is a new patient for me today. She has had pain in her left hip intermittently for the last couple of years. Pain radiates down the side of it. She is also actually complaining of a lot more low back pain, pain that radiates into her toes, as well as occasionally numbness. This has been a chronic problem for her and she is currently scheduled to see Dr. Morgan here in the next week or so. She is not taking anything now for pain and she is interested in that today. The remaining portion of the history is per the documentation form. PAST MEDICAL HISTORY: Irregular heartbeat/a.fib. Mitral valve prolapse. Uterine cancer (2000). Diabetes (?). Asthma. Emphysema. Osteoarthritis. Thyroid disease. Anemia. PAST SURGICAL HISTORY: Full dentures. Hysterectomy (2000). Bowel removal (1994). Stomach (1994). Bilateral cataracts (2012). Skin lesions (2009). Left shoulder (2002). Bilateral carpal tunnel surgery (2002, 2003). FAMILY HISTORY: Mother with heart disease, hypertension and cancer. Father with heart disease, hypertension, diabetes, and respiratory. Sister with heart disease, hypertension. Brother with hypertension, diabetes, cancer, and respiratory. SOCIAL HISTORY: The patient lives alone. She does not have any children and does not work. She does not have stairs in the home. She smokes ? pack of cigarettes a day since 1977. She denies alcohol or recreational drug use. The patient receives homemaker care in the home. The patient does have transportation to go to outpatient therapy if needed. The patient does have a walker, shower chair and a cane in the home for equipment. She is followed at [facility] by cardiology. She is not followed by pain management or any other specialty. REVIEW OF SYSTEMS: Constitutional: Positive for insomnia. Eyes: Negative. ENT: Positive for loss of hearing and seasonal allergies. Cardiovascular: Positive for palpitations. Respiratory: Positive for Asthma. Gastrointestinal: Positive for heartburn, indigestion, constipation, diarrhea, and acid reflux. Musculoskeletal: Positive for arthritis, joint pain and fibromyalgia. Skin: Positive for chronic rash. Neurologic: Positive for loss of bowel/bladder control and headaches. Psychiatric: Positive for depression, anxiety, PTSD, and claustrophobia. Hematologic: Positive for anemia and easy bleeding. Blood transfusion ([id number]). Endocrine: Positive for hypothyroid. MEDICATIONS: Levothyroxine. Pepcid. Atenolol. Mucinex. Fish oil. Magnesium oxide. Melatonin. Therems-M vitamin. Calcitrate. Probiotic. Vitamin D3. Folic acid. Voltaren gel. Fluticasone. Spiriva. Albuterol nebulizer. Ventolin inhaler. Serax. ALLERGIES: SULFA -rash. PENICILLIN - hives. CELEBREX - rash. DESYREL - hives. METAL ALLERGIES: NONE. PHYSICAL EXAMINATION: This is an alert, oriented, age appropriate female in no acute distress, pleasant and cooperative; 5 feet 3 inches, ____ pounds, pain is 8-9. The bilateral lower extremities were evaluated. There is no gross deformity, normal stability, 5/5 motor, intact sensation, normal coordination and reflexes. Skin is intact, no nodules. The left hip has full and supple motion. There is no pain, no impingement, no crepitus, normal stability. She has tenderness over the lateral aspect of the left hip going over the IT band with reproduction of symptoms. Otherwise, normal neurovascular status in the lower extremity. DIAGNOSTIC STUDY/INTERPRETATION/I MPRESSION: Plain film radiographs reviewed. 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 IMPRESSION: 1. History of chronic avascular necrosis. 2. Symptomatic IT tendinitis / trochanteric bursitis. 3. Sciatica. PLAN: I reviewed my findings with Cynthia. We have gone over her past medical history, which includes previous cord decompression from 2000 by It appears that this operation has been successful and her avascular necrosis appears to be stable. She is not having any interarticular symptoms at this time. The majority of her symptoms are related to the trochanteric area. So I am going to give her a prescription for physical therapy for that. Furthermore, she requested something for pain and she is not currently on an anti-inflammatory or a blood thinner. I am going to give a prescription for meloxicam. She will continue with her followup appointment with Dr. Morgan. She requested information about a primary care doctor as she does not have one of these yet. She has already gone through the [facility] and, apparently, none of the other physicians are accepting patients. She refuses to seek any care in the [facility], which is actually where she lives. So we will give her the phone number for [facility] Primary Care Hotline to see if there is somebody in [place] that is accepting patients. The next appointment will be left open to her. If she has any questions or concerns, she will advise us. If she has any changes in neurologic status, she will present to the nearest emergency department. Normal [facility] Radiologyon 05-12-2017 Radiology Type: OutpatientDictated by: Signed by: Transcribed by: Transcribed Date/Time: 04/17/2017 10:05Dictation Date/Time: 04/16/2017 17:15Report: DATE OF SERVICE: 04/16/2017 DIAGNOSTIC STUDY/INTERPRETATION/I MPRESSION: Plain film radiographs reviewed. 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 Normal [facility] Radiologyon 04-28-2017 Radiology Type: OutpatientDictated by: Signed by: Transcribed by: GINGER ROSENBERGTranscribed Date/Time: 03/24/2017 11:58Dictation Date/Time: 03/23/2017 17:16Report: DATE OF PROCEDURE: 03/23/2017 DIAGNOSTIC TESTS/INTERPRETATIONS/ IMPRESSION: Four views of the left knee taken in our office today interpreted by me demonstrates no fractures, subluxations or dislocations. The medial and lateral meniscus are significant calcific and the joint space is mildly narrowed. The patellofemoral joint space is fairly well maintained. No other malalignment issues or other osseous abnormalities. DIAGNOSTIC TESTS/INTERPRETATIONS/ IMPRESSIONS: Four views of the right knee is taken in our office today interpreted by me demonstrates no fractures, subluxations or dislocations. The medial and lateral meniscus are significant calcific and the joint space is mildly narrowed. The patellofemoral joint space is fairly well maintained. No other malalignment issues or other osseous abnormalities. Normal [facility] Gram stain for investigation of transfusion reaction Microscopic observation Gram stain Nom (Unsp spec) [facility] Work Phone: Vital Signs Date Time Vital Sign Value Performing Clinician Facility 02-01-2025 11:46-0400 Body height 160 cm Miriam [facility] Work Phone: [facility] 02-01-2025 11:46-0400 Body mass index (BMI) [Ratio] 19.31 kg/m2 Miriam Cerna CNP Work Phone: [facility] 02-01-2025 11:46-0400 Body weight 49.44 kg Miriam Cerna CNP Work Phone: [facility] 02-01-2025 11:46-0400 Diastolic blood pressure 89 mm[Hg] Miriam Cerna TIRE RECAPPER Work Phone: [facility] 02-01-2025 11:46-0400 Heart rate 80 /min Miriam Cerna TIRE RECAPPER Work Phone: [facility] 02-01-2025 11:46-0400 Respiratory rate 16 /min Miriam Cerna CNP Work Phone: [facility] 02-01-2025 11:46-0400 SaO2% (BldA) [Mass fraction] 97 % Miriam Cerna CNP Work Phone: [facility] 02-01-2025 11:46-0400 Systolic blood pressure 137 mm[Hg] Miriam Cerna TIRE RECAPPER Work Phone: [facility] 01-03-2025 15:09-0400 Diastolic blood pressure 74 mm[Hg] Luis Eduardo Collier MD Work Phone: [facility] 01-03-2025 15:09-0400 Heart rate 86 /min Luis Eduardo Collier MD Work Phone: [facility] 01-03-2025 15:09-0400 SaO2% (BldA) [Mass fraction] 92 % Luis Eduardo Collier MD Work Phone: [facility] 01-03-2025 15:09-0400 Systolic blood pressure 114 mm[Hg] Luis Eduardo Collier MD Work Phone: [facility] 12-13-2024 09:45-0400 Respiratory rate 16 /min Sameera Greer MD Work Phone: [facility] 12-13-2024 08:39-0400 Body temperature 97.9 [degF] Sameera Greer MD Work Phone: [facility] 12-13-2024 08:39-0400 Diastolic blood pressure 82 mm[Hg] Sameera Greer MD Work Phone: [facility] 12-13-2024 08:39-0400 Heart rate 80 /min Sameera Greer MD Work Phone: [facility] 12-13-2024 08:39-0400 SaO2% (BldA) [Mass fraction] 91 % Sameera Greer MD Work Phone: [facility] 12-13-2024 08:39-0400 Systolic blood pressure 123 mm[Hg] Sameera Greer MD Work Phone: [facility] 12-04-2024 14:00-0400 Body height 160 cm Sameera Greer MD Work Phone: [facility] 12-04-2024 14:00-0400 Body mass index (BMI) [Ratio] 21.44 kg/m2 Sameera Greer MD Work Phone: [facility] 12-04-2024 14:00-0400 Body weight 54.9 kg Sameera Greer MD Work Phone: [facility] 10-31-2024 13:58-0400 Body height 160 cm Zhao Rincon MD Work Phone: [facility] 10-31-2024 13:58-0400 Body mass index (BMI) [Ratio] 22.66 kg/m2 Zhao Rincon MD Work Phone: [facility] 10-31-2024 13:58-0400 Body weight 58.02 kg Zhao Rincon MD Work Phone: [facility] 10-31-2024 13:58-0400 Diastolic blood pressure 74 mm[Hg] Zhao Rincon MD Work Phone: [facility] 10-31-2024 13:58-0400 Heart rate 85 /min Zhao Rincon MD Work Phone: [facility] 10-31-2024 13:58-0400 SaO2% (BldA) [Mass fraction] 94 % Zhao Rincon MD Work Phone: [facility] 10-31-2024 13:58-0400 Systolic blood pressure 126 mm[Hg] Zhao Rincon MD Work Phone: [facility] 10-27-2024 16:00-0400 Body temperature 98.4 [degF] Mary Gibbs MD Work Phone: [facility] 10-27-2024 16:00-0400 Diastolic blood pressure 69 mm[Hg] Mary Gibbs MD Work Phone: [facility] 10-27-2024 16:00-0400 Heart rate 79 /min Mary Gibbs MD Work Phone: [facility] 10-27-2024 16:00-0400 Respiratory rate 16 /min Mary Gibbs MD Work Phone: [facility] 10-27-2024 16:00-0400 SaO2% (BldA) [Mass fraction] 92 % Mary Gibbs MD Work Phone: [facility] 10-27-2024 16:00-0400 Systolic blood pressure 131 mm[Hg] Mary Gibbs MD Work Phone: [facility] 10-27-2024 03:00-0400 Body height 160 cm Mary Gibbs MD Work Phone: [facility] 10-27-2024 03:00-0400 Body mass index (BMI) [Ratio] 21.71 kg/m2 Mary Gibbs MD Work Phone: [facility] 10-27-2024 03:00-0400 Body weight 55.6 kg Mary Gibbs MD Work Phone: [facility] 09-16-2024 10:05-0500 Diastolic blood pressure 100 mm[Hg] Luis Eduardo Collier MD Work Phone: [facility] 09-16-2024 10:05-0500 Heart rate 69 /min Luis Eduardo Collier MD Work Phone: [facility] 09-16-2024 10:05-0500 SaO2% (BldA) [Mass fraction] 96 % Luis Eduardo Collier MD Work Phone: [facility] 09-16-2024 10:05-0500 Systolic blood pressure 161 mm[Hg] Luis Eduardo Collier MD Work Phone: [facility] 06-15-2024 14:05-0400 Body height 162.6 cm Miriam Cerna TIRE RECAPPER Work Phone: [facility] 06-15-2024 14:05-0400 Body mass index (BMI) [Ratio] 25.23 kg/m2 Miriam Cerna TI[employer] REC[employer]PER Work Phone: [facility] 06-15-2024 14:05-0400 Body weight 66.68 kg Miriam Cerna TIRE REC[employer]PER Work Phone: [facility] 06-15-2024 14:05-0400 Diastolic blood pressure 73 mm[Hg] Miriam Cerna TIRE RECAPPER Work Phone: [facility] 06-15-2024 14:05-0400 Heart rate 87 /min Miriam Cerna TI[employer] RECAPPER Work Phone: [facility] 06-15-2024 14:05-0400 SaO2% (BldA) [Mass fraction] 96 % Miriam Cerna CNP Work Phone: [facility] 06-15-2024 14:05-0400 Systolic blood pressure 169 mm[Hg] Miriam Cerna TI[employer] RECAPPER Work Phone: [facility] 06-14-2024 14:31-0400 Diastolic blood pressure 84 mm[Hg] Sj Motley MD Work Phone: [facility] 06-14-2024 14:31-0400 Systolic blood pressure 126 mm[Hg] Sj Motley MD Work Phone: [facility] 06-14-2024 14:21-0400 Heart rate 86 /min Sj Motley MD Work Phone: [facility] 06-14-2024 14:19-0400 Body height 160 cm Sj Motley MD Work Phone: [facility] 06-14-2024 14:19-0400 Body mass index (BMI) [Ratio] 26.04 kg/m2 Sj Motley MD Work Phone: [facility] 06-14-2024 14:19-0400 Body temperature 97.59 [degF] Sj Motley MD Work Phone: [facility] 06-14-2024 14:19-0400 Body weight 66.68 kg Sj Motley MD Work Phone: [facility] 06-14-2024 14:19-0400 Respiratory rate 16 /min Sj Motley MD Work Phone: [facility] 06-14-2024 14:19-0400 SaO2% (BldA) [Mass fraction] 94 % Sj Motley MD Work Phone: [facility] 01-27-2024 14:57-0400 Body height 161.3 cm Miriam Cerna CNP Work Phone: [facility] 01-27-2024 14:57-0400 Body mass index (BMI) [Ratio] 27.2 kg/m2 Miriam Cerna CNP Work Phone: [facility] 01-27-2024 14:57-0400 Body weight 70.76 kg Miriam Cerna CNP Work Phone: [facility] 01-27-2024 14:57-0400 Diastolic blood pressure 68 mm[Hg] Miriam Cerna CNP Work Phone: [facility] 01-27-2024 14:57-0400 Heart rate 78 /min Miriam Cerna CNP Work Phone: [facility] 01-27-2024 14:57-0400 SaO2% (BldA) [Mass fraction] 94 % Miriam Cerna CNP Work Phone: [facility] 01-27-2024 14:57-0400 Systolic blood pressure 130 mm[Hg] Miriam Cerna CNP Work Phone: [facility] 12-25-2023 11:21-0400 Diastolic blood pressure 79 mm[Hg] Sj Motley MD Work Phone: [facility] 12-25-2023 11:21-0400 Heart rate 67 /min Sj Motley MD Work Phone: [facility] 12-25-2023 11:21-0400 Systolic blood pressure 120 mm[Hg] Sj Motley MD Work Phone: [facility] 12-25-2023 11:07-0400 Body height 160 cm Sj Motley MD Work Phone: [facility] 12-25-2023 11:07-0400 Body mass index (BMI) [Ratio] 27.1 kg/m2 Sj Motley MD Work Phone: [facility] 12-25-2023 11:07-0400 Body temperature 98.29 [degF] Sj Motley MD Work Phone: [facility] 12-25-2023 11:07-0400 Body weight 69.4 kg Sj Motley MD Work Phone: [facility] 12-25-2023 11:07-0400 Respiratory rate 16 /min Sj Motley MD Work Phone: [facility] 12-25-2023 11:07-0400 SaO2% (BldA) [Mass fraction] 96 % Sj Motley MD Work Phone: [facility] 12-10-2023 13:04-0400 Body height 160 cm Miriam Nahid TIRE RECAPPER Work Phone: [facility] 12-10-2023 13:04-0400 Body mass index (BMI) [Ratio] 27.81 kg/m2 Miriam Cerna TIRE RECAPPER Work Phone: [facility] 12-10-2023 13:04-0400 Body weight 71.22 kg Miriam Cerna TIRE RECAPPER Work Phone: [facility] 12-10-2023 13:04-0400 Diastolic blood pressure 83 mm[Hg] Miriam Cerna CNP Work Phone: [facility] 12-10-2023 13:04-0400 Heart rate 81 /min Miriam Cerna CNP Work Phone: [facility] 12-10-2023 13:04-0400 Respiratory rate 16 /min Miriam Cerna CNP Work Phone: [facility] 12-10-2023 13:04-0400 SaO2% (BldA) [Mass fraction] 96 % Miriam Cerna TIRE RECAPPER Work Phone: [facility] 12-10-2023 13:04-0400 Systolic blood pressure 145 mm[Hg] Miriam Cerna TIRE RECAPPER Work Phone: [facility] 11-03-2023 13:00-0400 Body height 160 cm Miriam Cerna TIRE RECAPPER Work Phone: [facility] 11-03-2023 13:00-0400 Body mass index (BMI) [Ratio] 28.52 kg/m2 Miriam Cerna CNP Work Phone: [facility] 11-03-2023 13:00-0400 Body weight 73.03 kg Miriam Cerna CNP Work Phone: [facility] 11-03-2023 13:00-0400 Diastolic blood pressure 85 mm[Hg] Miriam Cerna CNP Work Phone: [facility] 11-03-2023 13:00-0400 Heart rate 90 /min Miriam Cerna TIRE RECAPPER Work Phone: [facility] 11-03-2023 13:00-0400 SaO2% (BldA) [Mass fraction] 91 % Miriam Cerna TIRE RECAPPER Work Phone: [facility] 11-03-2023 13:00-0400 Systolic blood pressure 150 mm[Hg] Miriam Cerna TIRE RECAPPER Work Phone: [facility] 11-02-2023 13:02-0400 Body height 160 cm Judie Galvez APRN-TIRE RECAPPER Work Phone: [facility] 11-02-2023 13:02-0400 Body mass index (BMI) [Ratio] 19.84 kg/m2 Judie Galvez APRN-TIRE RECAPPER Work Phone: [facility] 11-02-2023 13:02-0400 Body weight 50.8 kg Judie Galvez APRN-TIRE RECAPPER Work Phone: [facility] 10-26-2023 13:01-0400 Body height 160 cm Judie Galvez APRN-TIRE RECAPPER Work Phone: [facility] 10-26-2023 13:01-0400 Body mass index (BMI) [Ratio] 19.84 kg/m2 Judie Galvez APRN-TIRE RECAPPER Work Phone: [facility] 10-26-2023 13:01-0400 Body weight 50.8 kg Judie Galvez APRN-TIRE RECAPPER Work Phone: [facility] 10-19-2023 12:57-0500 Body height 160 cm Judie Galvez APRN-TIRE RECAPPER Work Phone: [facility] 10-19-2023 12:57-0500 Body mass index (BMI) [Ratio] 19.84 kg/m2 Judie Galvez APRN-TIRE RECAPPER Work Phone: [facility] 10-19-2023 12:57-0500 Body temperature 97.81 [degF] Judie Galvez APRN-TIRE RECAPPER Work Phone: [facility] 10-19-2023 12:57-0500 Body weight 50.8 kg Judie Galvez APRN-TIRE RECAPPER Work Phone: [facility] 09-17-2023 14:07-0500 Body height 160 cm Sj Motley MD Work Phone: [facility] 09-17-2023 14:07-0500 Body mass index (BMI) [Ratio] 27.99 kg/m2 Sj Motley MD Work Phone: [facility] 09-17-2023 14:07-0500 Body temperature 98.01 [degF] Sj Motley MD Work Phone: [facility] 09-17-2023 14:07-0500 Body weight 71.67 kg Sj Motley MD Work Phone: [facility] 09-17-2023 14:07-0500 Heart rate 74 /min Sj Motley MD Work Phone: [facility] 09-17-2023 14:07-0500 Respiratory rate 18 /min Sj Motley MD Work Phone: [facility] 09-17-2023 14:07-0500 SaO2% (BldA) [Mass fraction] 95 % Sj Motley MD Work Phone: [facility] 09-15-2023 14:49-0500 Diastolic blood pressure 80 mm[Hg] Ian Mckeon MD Work Phone: [facility] 09-15-2023 14:49-0500 Systolic blood pressure 171 mm[Hg] Ian Mckeon MD Work Phone: [facility] 09-15-2023 14:46-0500 Body height 160 cm Ian Mckeon MD Work Phone: [facility] 09-15-2023 14:46-0500 Body mass index (BMI) [Ratio] 28.18 kg/m2 Ian Mckeon MD Work Phone: [facility] 09-15-2023 14:46-0500 Body temperature 98.29 [degF] Ian Mckeon MD Work Phone: [facility] 09-15-2023 14:46-0500 Body weight 72.17 kg Ian Mckeon MD Work Phone: [facility] 09-15-2023 14:46-0500 Heart rate 80 /min Ian Mckeon MD Work Phone: [facility] 09-15-2023 14:46-0500 Respiratory rate 16 /min Ian Mckeon MD Work Phone: [facility] 09-15-2023 14:46-0500 SaO2% (BldA) [Mass fraction] 94 % Ian Mckeon MD Work Phone: [facility] Comment on above: in room on room air 08-04-2023 14:40-0500 Body mass index (BMI) [Ratio] 27.65 kg/m2 Brenda Falls DO Work Phone: [facility] 08-04-2023 14:40-0500 Body weight 70.81 kg Brenda Falls DO Work Phone: [facility] 08-04-2023 14:40-0500 Diastolic blood pressure 81 mm[Hg] Brenda Falls DO Work Phone: [facility] 08-04-2023 14:40-0500 Heart rate 82 /min Brenda Falls DO Work Phone: [facility] 08-04-2023 14:40-0500 Systolic blood pressure 151 mm[Hg] Brenda Falls DO Work Phone: [facility] 07-07-2023 12:52-0500 Diastolic blood pressure 77 mm[Hg] Rohan Palencia MD Work Phone: [facility] 07-07-2023 12:52-0500 Heart rate 74 /min Rohan Palencia MD Work Phone: [facility] 07-07-2023 12:52-0500 Respiratory rate 16 /min Rohan Palencia MD Work Phone: [facility] 07-07-2023 12:52-0500 SaO2% (BldA) [Mass fraction] 96 % Rohan Palencia MD Work Phone: [facility] 07-07-2023 12:52-0500 Systolic blood pressure 162 mm[Hg] Rohan Palencia MD Work Phone: [facility] 07-03-2023 14:06-0500 Body mass index (BMI) [Ratio] 28.13 kg/m2 Brenda Falls DO Work Phone: [facility] 07-03-2023 14:06-0500 Body weight 72.03 kg Brenda Falls DO Work Phone: [facility] 07-03-2023 14:06-0500 Diastolic blood pressure 86 mm[Hg] Brenda Falls DO Work Phone: [facility] 07-03-2023 14:06-0500 Heart rate 77 /min Brenda Falls DO Work Phone: [facility] 07-03-2023 14:06-0500 Systolic blood pressure 145 mm[Hg] Brenda Falls DO Work Phone: [facility] 05-07-2023 14:29-0400 Diastolic blood pressure 67 mm[Hg] Sj Motley MD Work Phone: [facility] 05-07-2023 14:29-0400 Heart rate 76 /min Sj Motley MD Work Phone: [facility] 05-07-2023 14:29-0400 Respiratory rate 16 /min Sj Motley MD Work Phone: [facility] 05-07-2023 14:29-0400 SaO2% (BldA) [Mass fraction] 95 % Sj Motley MD Work Phone: [facility] 05-07-2023 14:29-0400 Systolic blood pressure 119 mm[Hg] Sj Motley MD Work Phone: [facility] 05-07-2023 14:18-0400 Body height 160 cm Sj Motley MD Work Phone: [facility] 05-07-2023 14:18-0400 Body mass index (BMI) [Ratio] 28.64 kg/m2 Sj Motley MD Work Phone: [facility] 05-07-2023 14:18-0400 Body temperature 98.4 [degF] Sj Motley MD Work Phone: [facility] 05-07-2023 14:18-0400 Body weight 73.35 kg Sj Motley MD Work Phone: [facility] 04-13-2023 12:58-0400 Body height 160 cm Julianna Osullivan MD Work Phone: [facility] 04-13-2023 12:58-0400 Body mass index (BMI) [Ratio] 19.84 kg/m2 Julianna Osullivan MD Work Phone: [facility] 04-13-2023 12:58-0400 Body weight 50.8 kg Julianna Osullivan MD Work Phone: [facility] 02-12-2023 14:08-0400 Body height 160 cm Mateus Samules MD Work Phone: [facility] 02-12-2023 14:08-0400 Body mass index (BMI) [Ratio] 28.86 kg/m2 Mateus Samuels MD Work Phone: [facility] 02-12-2023 14:08-0400 Body weight 73.89 kg Mateus Samuels MD Work Phone: [facility] 02-12-2023 14:08-0400 Diastolic blood pressure 90 mm[Hg] Mateus Samuels MD Work Phone: [facility] 02-12-2023 14:08-0400 Heart rate 62 /min Mateus Samuels MD Work Phone: [facility] 02-12-2023 14:08-0400 SaO2% (BldA) [Mass fraction] 93 % Mateus Samuels MD Work Phone: [facility] 02-12-2023 14:08-0400 Systolic blood pressure 164 mm[Hg] Mateus Samuels MD Work Phone: [facility] 01-21-2023 13:11-0400 Body height 160 cm Otf Chan CNP Work Phone: [facility] 01-21-2023 13:11-0400 Body mass index (BMI) [Ratio] 28.77 kg/m2 Otf Chan TIRE RECAPPER Work Phone: [facility] 01-21-2023 13:11-0400 Body temperature 98.49 [degF] Otf Chan TIRE RECAPPER Work Phone: [facility] 01-21-2023 13:11-0400 Body weight 73.66 kg Otf Chan TIRE RECAPPER Work Phone: [facility] 01-21-2023 13:11-0400 Diastolic blood pressure 98 mm[Hg] Otf Chan TIRE RECAPPER Work Phone: [facility] 01-21-2023 13:11-0400 Heart rate 75 /min Otf Chan CNP Work Phone: [facility] 01-21-2023 13:11-0400 SaO2% (BldA) [Mass fraction] 96 % Otf Chan TIRE RECAPPER Work Phone: [facility] 01-21-2023 13:11-0400 Systolic blood pressure 164 mm[Hg] Otf Chan CNP Work Phone: [facility] 11-25-2022 14:13-0400 Body height 160 cm Sj Motley MD Work Phone: [facility] 11-25-2022 14:13-0400 Body mass index (BMI) [Ratio] 28.52 kg/m2 Sj Motley MD Work Phone: [facility] 11-25-2022 14:13-0400 Body temperature 98.2 [degF] Sj Motley MD Work Phone: [facility] 11-25-2022 14:13-0400 Body weight 73.03 kg Sj Motley MD Work Phone: [facility] 11-25-2022 14:13-0400 Diastolic blood pressure 88 mm[Hg] Sj Motley MD Work Phone: [facility] 11-25-2022 14:13-0400 Heart rate 83 /min Sj Motley MD Work Phone: [facility] 11-25-2022 14:13-0400 Respiratory rate 16 /min Sj Motley MD Work Phone: [facility] 11-25-2022 14:13-0400 SaO2% (BldA) [Mass fraction] 95 % Sj Motley MD Work Phone: [facility] 11-25-2022 14:13-0400 Systolic blood pressure 153 mm[Hg] Sj Motley MD Work Phone: [facility] 10-27-2022 14:11-0400 Body height 162.6 cm Mateus Samuels MD Work Phone: [facility] 10-27-2022 14:11-0400 Body mass index (BMI) [Ratio] 28.01 kg/m2 Mateus Samuels MD Work Phone: [facility] 10-27-2022 14:11-0400 Body weight 74.03 kg Mateus Samuels MD Work Phone: [facility] 10-27-2022 14:11-0400 Diastolic blood pressure 91 mm[Hg] Mateus Samuels MD Work Phone: [facility] 10-27-2022 14:11-0400 Heart rate 77 /min Mateus Samuels MD Work Phone: [facility] 10-27-2022 14:11-0400 SaO2% (BldA) [Mass fraction] 98 % Mateus Samuels MD Work Phone: [facility] 10-27-2022 14:11-0400 Systolic blood pressure 174 mm[Hg] Mateus Samuels MD Work Phone: [facility] 10-01-2022 13:31-0500 Body height 162.6 cm Mateus Samuels MD Work Phone: [facility] 10-01-2022 13:31-0500 Body mass index (BMI) [Ratio] 27.46 kg/m2 Mateus Samuels MD Work Phone: [facility] 10-01-2022 13:31-0500 Body weight 72.58 kg Mateus Samuels MD Work Phone: [facility] 10-01-2022 13:31-0500 Diastolic blood pressure 104 mm[Hg] Mateus Samuels MD Work Phone: [facility] 10-01-2022 13:31-0500 Heart rate 73 /min Mateus Samuels MD Work Phone: [facility] 10-01-2022 13:31-0500 SaO2% (BldA) [Mass fraction] 95 % Mateus Samuels MD Work Phone: [facility] 10-01-2022 13:31-0500 Systolic blood pressure 182 mm[Hg] Mateus Samuels MD Work Phone: [facility] 09-01-2022 13:03-0500 Body height 160 cm Judie Galvez MICA MINER-TIRE RECAPPER Work Phone: [facility] 09-01-2022 13:03-0500 Body mass index (BMI) [Ratio] 19.84 kg/m2 Judie Galvez MICA MINER-TIRE RECAPPER Work Phone: [facility] 09-01-2022 13:03-0500 Body temperature 97.5 [degF] Judie Galvez MICA MINER-TIRE RECAPPER Work Phone: [facility] 09-01-2022 13:03-0500 Body weight 50.8 kg Judie Galvez APRN-TIRE RECAPPER Work Phone: [facility] 08-25-2022 13:00-0500 Body height 160 cm Julianna Osullivan MD Work Phone: [facility] 08-25-2022 13:00-0500 Body mass index (BMI) [Ratio] 19.84 kg/m2 Julianna Osullivan MD Work Phone: [facility] 08-25-2022 13:00-0500 Body temperature 97.81 [degF] Julianna sOullivan MD Work Phone: [facility] 08-25-2022 13:00-0500 Body weight 50.8 kg Julianna Osullivan MD Work Phone: [facility] 05-26-2022 13:25-0400 Body height 162.6 cm Isiah Wray DO Work Phone: [facility] 05-26-2022 13:25-0400 Body mass index (BMI) [Ratio] 27.72 kg/m2 Isiah Wray DO Work Phone: [facility] 05-26-2022 13:25-0400 Body temperature 97.7 [degF] Isiah Eastmande DO Work Phone: [facility] 05-26-2022 13:25-0400 Body weight 73.26 kg Isiah Wray DO Work Phone: [facility] 05-26-2022 13:25-0400 Diastolic blood pressure 79 mm[Hg] Isiah Eastmande DO Work Phone: [facility] 05-26-2022 13:25-0400 Heart rate 82 /min Isiah Wray DO Work Phone: [facility] 05-26-2022 13:25-0400 Systolic blood pressure 171 mm[Hg] Isiah Eastmande DO Work Phone: [facility] 02-11-2022 12:57-0400 Body height 160 cm Judie Galvez MICA MINER-TIRE RECAPPER Work Phone: [facility] 02-11-2022 12:57-0400 Body mass index (BMI) [Ratio] 19.84 kg/m2 Judie Galvez MICA MINER-TIRE RECAPPER Work Phone: [facility] 02-11-2022 12:57-0400 Body temperature 97.5 [degF] Judie Galvez MICA MINER-TIRE RECAPPER Work Phone: [facility] 02-11-2022 12:57-0400 Body weight 50.8 kg Judie Galvez MICA MINER-TIRE RECAPPER Work Phone: [facility] 01-28-2022 13:36-0400 Body height 160 cm Julianna Osullivan MD Work Phone: [facility] 01-28-2022 13:36-0400 Body mass index (BMI) [Ratio] 19.84 kg/m2 Julianna Osullivan MD Work Phone: [facility] 01-28-2022 13:36-0400 Body temperature 97.9 [degF] Julianna Osullivan MD Work Phone: [facility] 01-28-2022 13:36-0400 Body weight 50.8 kg Julianna Osullivan MD Work Phone: [facility] 01-27-2022 15:10-0400 Body height 160.[address] Harpal Gonzalez Work Phone: [facility] Work Phone: 01-27-2022 15:10-0400 Body mass index (BMI) [Ratio] 28 kg/m2 Dr. Harpal Gonzalez Work Phone: [facility] Work Phone: 01-27-2022 15:10-0400 Body temperature 98.6 [degF] Dr. Harpal Gonzalez Work Phone: [facility] Work Phone: 01-27-2022 15:10-0400 Body weight 71.[address] Harpal Gonzalez Work Phone: [facility] Work Phone: 01-27-2022 15:10-0400 Diastolic blood pressure 89 mm[Hg] Dr. Harpal Gonzalez Work Phone: [facility] Work Phone: 01-27-2022 15:10-0400 Heart rate 75 /min Dr. Harpal Gonzalez Work Phone: [facility] Work Phone: 01-27-2022 15:10-0400 Respiratory rate 17 /min Dr. Harpal Gonzalez Work Phone: [facility] Work Phone: 01-27-2022 15:10-0400 SaO2% (BldA) [Mass fraction] 95 % Dr. Harpal Gonzalez Work Phone: [facility] Work Phone: 01-27-2022 15:10-0400 Systolic blood pressure 159 mm[Hg] Dr. Harpal Gonzalez Work Phone: [facility] Work Phone: 11-07-2021 10:16-0400 Body temperature 98.1 [degF] Sue Potts [facility] 11-07-2021 10:16-0400 Diastolic blood pressure 66 mm[Hg] Sue Potts [facility] 11-07-2021 10:16-0400 Heart rate 76 /min Sue Potts [facility] 11-07-2021 10:16-0400 Respiratory rate 18 /min Sue Potts [facility] 11-07-2021 10:16-0400 SaO2% (BldA) [Mass fraction] 97 % Sue Potts [facility] 11-07-2021 10:16-0400 Systolic blood pressure 114 mm[Hg] Sue Potts [facility] 11-06-2021 10:01-0400 Body temperature 96.6 [degF] Nir [facility] 11-06-2021 10:01-0400 Diastolic blood pressure 64 mm[Hg] [facility] 11-06-2021 10:01-0400 Heart rate 74 /min [facility] 11-06-2021 10:01-0400 SaO2% (BldA) [Mass fraction] 95 % Nir Manny [facility] 11-06-2021 10:01-0400 Systolic blood pressure 132 mm[Hg] [facility] 11-04-2021 10:38-0400 Diastolic blood pressure 74 mm[Hg] [facility] 11-04-2021 10:38-0400 Heart rate 75 /min [facility] 11-04-2021 10:38-0400 Respiratory rate 17 /min Nir Bryant [facility] 11-04-2021 10:38-0400 SaO2% (BldA) [Mass fraction] 98 % Nir Bryant [facility] 11-04-2021 10:38-0400 Systolic blood pressure 130 mm[Hg] Nir Bryant [facility] 10-30-2021 15:28-0400 Body temperature 98.2 [degF] [facility] 10-30-2021 15:28-0400 Diastolic blood pressure 74 mm[Hg] [facility] 10-30-2021 15:28-0400 Heart rate 70 /min [facility] 10-30-2021 15:28-0400 SaO2% (BldA) [Mass fraction] 96 % [facility] 10-30-2021 15:28-0400 Systolic blood pressure 120 mm[Hg] [facility] 10-30-2021 13:43-0400 Diastolic blood pressure 61 mm[Hg] Nir Bryant [facility] 10-30-2021 13:43-0400 Heart rate 78 /min Nir Bryant [facility] 10-30-2021 13:43-0400 Respiratory rate 17 /min Nir Bryant [facility] 10-30-2021 13:43-0400 SaO2% (BldA) [Mass fraction] 97 % Nir Bryant [facility] 10-30-2021 13:43-0400 Systolic blood pressure 126 mm[Hg] Nir Bryant [facility] 10-28-2021 14:32-0400 Body temperature 97.81 [degF] Eboni Solan[employer] RN [facility] 10-28-2021 14:32-0400 Diastolic blood pressure 70 mm[Hg] Eboni Solan[employer] RN [facility] 10-28-2021 14:32-0400 Heart rate 72 /min Eboni Solan[employer] RN [facility] 10-28-2021 14:32-0400 Respiratory rate 18 /min Eboni Anthony RN [facility] 10-28-2021 14:32-0400 SaO2% (BldA) [Mass fraction] 97 % Eboni [employer] RN [facility] 10-28-2021 14:32-0400 Systolic blood pressure 120 mm[Hg] Eboni Anthony RN [facility] 10-28-2021 13:47-0400 Heart rate 82 /min Nir Bryant [employer] [facility] 10-28-2021 13:47-0400 Respiratory rate 17 /min Nir Bryant [employer]PER[employer] [facility] 10-28-2021 13:47-0400 SaO2% (BldA) [Mass fraction] 94 % Nir Bryant [employer]PER[employer] [facility] 10-24-2021 09:57-0500 Body temperature 97.5 [degF] Harpal Perez PT [facility] 10-24-2021 09:57-0500 Diastolic blood pressure 65 mm[Hg] Harpal Perez PT [facility] 10-24-2021 09:57-0500 Heart rate 74 /min Harpal Perez PT [facility] 10-24-2021 09:57-0500 Respiratory rate 16 /min Harpal Perez PT [facility] 10-24-2021 09:57-0500 SaO2% (BldA) [Mass fraction] 94 % Harpal Perez PT [facility] 10-24-2021 09:57-0500 Systolic blood pressure 105 mm[Hg] Harpal Perez PT [facility] 10-23-2021 10:37-0500 Body temperature 97.81 [degF] Natalie Hunt RN [facility] 10-23-2021 10:37-0500 Diastolic blood pressure 64 mm[Hg] Natalie Hunt RN [facility] 10-23-2021 10:37-0500 Heart rate 68 /min Natalie Hunt RN [facility] 10-23-2021 10:37-0500 Respiratory rate 18 /min Natalie Hunt RN [facility] 10-23-2021 10:37-0500 SaO2% (BldA) [Mass fraction] 98 % Natalie Hunt RN [facility] 10-23-2021 10:37-0500 Systolic blood pressure 118 mm[Hg] Natalie Hunt RN [facility] 09-25-2021 10:46-0500 Body temperature 97.3 [degF] Dr. Harpal Gonzalez Work Phone: [facility] Work Phone: 09-25-2021 10:46-0500 Diastolic blood pressure 80 mm[Hg] Dr. Harpal Gonzalez Work Phone: [facility] Work Phone: 09-25-2021 10:46-0500 Heart rate 75 /min Dr. Harpal Gonzalez Work Phone: [facility] Work Phone: 09-25-2021 10:46-0500 Respiratory rate 18 /min Dr. Harpal Gonzalez Work Phone: [facility] Work Phone: 09-25-2021 10:46-0500 SaO2% (BldA) [Mass fraction] 97 % Dr. Harpal Gonzalez Work Phone: [facility] Work Phone: 09-25-2021 10:46-0500 Systolic blood pressure 132 mm[Hg] Dr. Harpal Gonzalez Work Phone: [facility] Work Phone: 08-30-2021 13:34-0500 Body height 160 cm Jovanna Valencia MD Work Phone: [facility] 08-30-2021 13:34-0500 Body mass index (BMI) [Ratio] 25.86 kg/m2 Jovanna Valencia MD Work Phone: [facility] 08-30-2021 13:34-0500 Body weight 66.22 kg Jovanna Valencia MD Work Phone: [facility] 08-30-2021 13:34-0500 Diastolic blood pressure 94 mm[Hg] Jovanna Valencia MD Work Phone: [facility] 08-30-2021 13:34-0500 Heart rate 79 /min Jovanna Valencia MD Work Phone: [facility] 08-30-2021 13:34-0500 Systolic blood pressure 120 mm[Hg] Jovanna Valencia MD Work Phone: [facility] 08-26-2021 15:32-0500 Body temperature 97.2 [degF] Dr. Harpal Gonzalez Work Phone: [facility] Work Phone: 08-26-2021 15:32-0500 Diastolic blood pressure 78 mm[Hg] Dr. Harpal Gonzalez Work Phone: [facility] Work Phone: 08-26-2021 15:32-0500 Heart rate 80 /min Dr. Harpal Gonzalez Work Phone: [facility] Work Phone: 08-26-2021 15:32-0500 Respiratory rate 18 /min Dr. Harpal Gonzalez Work Phone: [facility] Work Phone: 08-26-2021 15:32-0500 SaO2% (BldA) [Mass fraction] 96 % Dr. Harpal Gonzalez Work Phone: [facility] Work Phone: 08-26-2021 15:32-0500 Systolic blood pressure 140 mm[Hg] Dr. Harpal Gonzalez Work Phone: [facility] Work Phone: 08-26-2021 14:04-0500 Body height 160.[address] Harpal Gonzalez Work Phone: [facility] Work Phone: 08-26-2021 14:04-0500 Body mass index (BMI) [Ratio] 26.4 kg/m2 Dr. Harpal Gonzalez Work Phone: [facility] Work Phone: 08-26-2021 14:04-0500 Body weight 67.[address] Harpal Gonzalez Work Phone: [facility] Work Phone: 08-26-2021 14:04-0500 Diastolic blood pressure 81 mm[Hg] Dr. Harpal Gonzalez Work Phone: [facility] Work Phone: 08-26-2021 14:04-0500 Heart rate 83 /min Dr. Harpal Gonzalez Work Phone: [facility] Work Phone: 08-26-2021 14:04-0500 Respiratory rate 18 /min Dr. Harpal Gonzalez Work Phone: [facility] Work Phone: 08-26-2021 14:04-0500 SaO2% (BldA) [Mass fraction] 97 % Dr. Harpal Gonzalez Work Phone: [facility] Work Phone: 08-26-2021 14:04-0500 Systolic blood pressure 135 mm[Hg] Dr. Harpal Gonzalez Work Phone: [facility] Work Phone: 07-17-2021 13:05-0500 Body height 160 cm Charly Dias [facility] Work Phone: [facility] 07-17-2021 13:05-0500 Body mass index (BMI) [Ratio] 25.69 kg/m2 [facility] Work Phone: [facility] 07-17-2021 13:05-0500 Body weight 65.77 kg Charly Dias [facility] Work Phone: [facility] 07-23-2018 13:45-0500 BMI (Body Mass Index) 19.84 kg/m2 [facility] Work Phone: 07-23-2018 13:45-0500 Body Temperature 98.29 [degF] [facility] Work Phone: 07-23-2018 13:45-0500 Height 160 cm [facility] Work Phone: 07-23-2018 13:45-0500 Weight 50.8 kg [facility] Work Phone: 07-07-2018 13:58-0500 BMI (Body Mass Index) 19.84 kg/m2 [facility] Work Phone: 07-07-2018 13:58-0500 Height 160 cm [facility] Work Phone: 07-07-2018 13:58-0500 Weight 50.8 kg Judie [facility] Work Phone: 03-24-2018 14:45-0400 Body Temperature 97.39 [degF] [facility] 03-24-2018 14:45-0400 BP Diastolic 81 mm[Hg] [facility] 03-24-2018 14:45-0400 BP Systolic 140 mm[Hg] [facility] 03-24-2018 14:45-0400 Pulse (Heart Rate) 63 /min [facility] 03-24-2018 14:45-0400 Pulse Oximetry 99 % [facility] 03-24-2018 14:45-0400 Respiratory Rate 15 /min [facility] 03-24-2018 12:31-0400 BMI (Body Mass Index) 19.57 kg/m2 [facility] 03-24-2018 12:31-0400 Height 160 cm [facility] 03-24-2018 12:31-0400 Weight 50.1 kg [facility] Encounters Encounter Date Encounter Type Care Provider Facility Start: 02-24-2025 Evaluation and manag ement of inpatient [facility] Start: 02-22-2025 Evaluation and manag ement of inpatient [facility] Start: 02-01-2025 End: 02-01-2025 ambulatory [facility] Start: 02-01-2025 End: 02-01-2025 Office outpatient visit 25 minutes [facility] Work Phone: [facility] Comment on above: Anxiety (Primary Dx) ; Moderate major depression (HCC) Start: 01-03-2025 End: 01-03-2025 ambulatory LUIS EDUARDO COLLIER [facility] Ambulatory Start: 01-03-2025 End: 01-03-2025 Office outpatient visit 15 minutes Luis Eduardo Collier MD Work Phone: [facility] Comment on above: Cervical spondylosis with myelopathy (Primary Dx); Closed wedge compression fracture of T12 vertebra with nonunion, subsequent encounter; Closed wedge compression fracture of L1 vertebra with nonunion, subsequent encounter Start: 12-04-2024 End: 12-13-2024 Evaluation and management of inpatient [facility] Work Phone: [facility] Start: 12-03-2024 End: 12-04-2024 Emergency department patient visit LEANA LAURENT WILL [facility] Start: 11-30-2024 ambulatory SJ CHARLTON [facility] Ambulatory Start: 11-29-2024 ambulatory SJ CHARLTON [facility] Ambulatory Start: 11-17-2024 ambulatory SJ CHARLTON [facility] Ambulatory Start: 11-16-2024 End: 11-16-2024 Emergency department patient visit GADIEL DELGADO AURORA [facility] Start: 11-15-2024 End: 11-15-2024 ambulatory [facility] Start: 11-15-2024 End: 11-15-2024 Encounter for preprocedural cardiovascular examination [facility] Start: 11-15-2024 End: 11-16-2024 Follow-up encounter Zhao Rincon MD Work Phone: [facility] Start: 11-15-2024 ambulatory SJ CHARLTON [facility] Ambulatory Start: 11-11-2024 End: 11-11-2024 Documentation procedure Sj Motley MD Work Phone: [facility] Comment on above: [facility] Start: 11-09-2024 End: 11-09-2024 Documentation procedure Sj Motley MD Work Phone: [facility] Start: 11-09-2024 ambulatory SJ CHARLTON [facility] Ambulatory Start: 11-01-2024 End: 11-01-2024 Refill Sj Motley MD Work Phone: [facility] Comment on above: Gastroesophageal ref lux disease, unspecified whether esophagitis present; Hypothyroidism (acquired); Chronic migraine without aura without status migrainosus, not intractable; Paroxysmal atrial fibrillation (HCC) Start: 10-31-2024 End: 10-31-2024 Office outpatient new 45 minutes Luis Eduardo Collier MD Work Phone: [facility] Comment on above: Pre-operative cardio vascular examination (Primary Dx); Ataxia Start: 10-31-2024 End: 10-31-2024 Patient encounter status Luis Eduardo Collier MD Work Phone: [facility] Start: 10-31-2024 End: 10-31-2024 ambulatory ZHAO BARBOSA [facility] Ambulatory Start: 10-31-2024 End: 10-31-2024 Encounter for preprocedural cardiovascular examination ZHAO [facility] Ambulatory Start: 10-31-2024 End: 10-31-[address] [facility] Ambulatory Start: 10-31-2024 End: 10-31-2024 Office outpatient visit 25 minutes Miriam Irma Cerna [facility] Work Phone: [facility] Comment on above: Anxiety; Moderate major depression (HCC) Start: 10-25-2024 End: 10-25-2024 Refill Talon Madrigal RN [facility] Start: 10-24-2024 End: 10-27-2024 Evaluation and management of inpatient [facility] Start: 10-24-2024 End: 10-24-2024 Emergency department patient visit SJ MOTLEY [facility] Start: 10-14-2024 End: 10-14-2024 ambulatory Kelly Glover RN [facility] Start: 10-13-2024 End: 10-13-2024 Emergency department patient visit JUANJO MAC [facility] Start: 10-03-2024 [facility] Start: 09-30-2024 End: 09-30-2024 Emergency department patient visit GADIEL SANDOVALTINGS [facility] Start: 09-27-2024 End: 09-27-2024 Refill Talon Madrigal RN [facility] Comment on above: Chronic obstructive pulmonary disease, unspecified COPD type (HCC) Start: 09-16-2024 End: 09-16-2024 Office outpatient visit 15 minutes Luis Eduardo Collier MD Work Phone: [facility] Comment on above: Ataxia (Primary Dx); Cervical spondylosis with myelopathy; Kyphosis of cervical region, unspecified kyphosis type Start: 09-16-2024 End: 09-16-2024 ambulatory LUIS EDUARDO COLLIER [facility] Ambulatory Start: 08-28-2024 End: 08-29-2024 Refill Do Khanna TIRE REC[employer]PER Work Phone: [facility] Comment on above: History of endoscopi c sinus surgery Paroxysmal atrial fi brillation ([facility]) Start: 07-21-2024 End: 07-21-2024 Refill Sj Motley MD Work Phone: [facility] Start: 07-13-2024 End: 07-13-2024 ambulatory [facility] Ambulatory Start: 07-13-2024 End: 07-13-2024 Office outpatient visit 25 minutes Miriam Irma [place] [employer] Work Phone: [facility] Comment on above: Anxiety; Moderate major depression ([facility]) Start: 07-12-2024 End: 07-12-2024 Emergency department patient visit SHAINA STEEL JANENE [facility] Start: 06-29-2024 End: 06-29-2024 Office outpatient visit 10 minutes Sj Motley MD Work Phone: [facility] Comment on above: Closed fracture of s acrum, unspecified fracture morphology, initial encounter (HCC) (Primary Dx); Right hip pain; Primary osteoarthritis of right hip Start: 06-29-2024 End: 06-29-2024 ambulatory SJ PAINTING [facility] Ambulatory Start: 06-15-2024 End: 06-15-2024 ambulatory MIRIAM CHAMBERS CERNA [facility] Ambulatory Start: 06-15-2024 End: 06-15-2024 Office outpatient visit 25 minutes Miriam Cerna [employer] Work Phone: [facility] Comment on above: Anxiety; Moderate major depression (HCC) Start: 06-14-2024 End: 06-14-2024 [facility] Start: 06-14-2024 End: 06-14-2024 Transitional care manage srvc 14 day discharge Sj Motley MD Work Phone: [facility] Comment on above: Right hip pain (Prim abigail Dx); Closed compression fracture of L2 lumbar vertebra with routine healing, subsequent encounter; Osteoporosis, unspecified osteoporosis type, unspecified pathological fracture presence; Subarachnoid hemorrhage (HCC) Start: 06-10-2024 End: 06-12-2024 Refill Sj Motley MD Work Phone: [facility] Start: 06-08-2024 ambulatory SJ CHARLTON [facility] Ambulatory Start: 06-03-2024 End: 06-03-2024 ambulatory Kelly Glover RN [facility] Start: 06-03-2024 ambulatory IAN MCKEON [facility] Ambulatory Start: 05-31-2024 End: 06-02-2024 [facility] Start: 05-31-2024 End: 05-31-2024 Emergency department patient visit GADIEL SIMON [facility] Start: 05-31-2024 End: 05-31-2024 Refill Miriam Cerna [employer] Work Phone: [facility] Comment on above: Anxiety; Moderate major depression (HCC) Start: 05-21-2024 End: 05-21-2024 ambulatory BRICE NOYOLA [facility] Start: 04-28-2024 End: 04-28-2024 Refill Do Khanna CNP Work Phone: [facility] Comment on above: History of endoscopi c sinus surgery Hypothyroidism (acqu ired); Chronic migraine without aura without status migrainosus, not intractable; Moderate major depression (HCC) Anxiety; Moderate major depression (HCC) Start: 04-28-2024 End: 04-28-2024 [facility] Start: 03-28-2024 End: 03-28-2024 Refill Sj Motley MD Work Phone: [facility] Comment on above: Paroxysmal atrial fi brillation (HCC) (Primary Dx) Start: 03-04-2024 End: 03-04-2024 Refill Elizabeth Reynolds LPN [facility] Comment on above: Chondrocalcinosis of right knee (Primary Dx); Chondrocalcinosis of left knee Start: 03-02-2024 End: 03-02-2024 Office outpatient visit 25 minutes Charly Dias CNP Work Phone: [facility] Comment on above: Chondrocalcinosis of right knee (Primary Dx); Chondrocalcinosis of left knee; Nontraumatic incomplete tear of left rotator cuff Start: 03-02-2024 End: 03-06-2024 ambulatory CHARLY DIAS [facility] Ambulatory Start: 02-05-2024 End: 02-07-2024 Refill Do Khanna CNP Work Phone: [facility] Comment on above: History of endoscopi c sinus surgery Start: 02-02-2024 End: 02-02-2024 Office outpatient visit 10 minutes Charly Dias CNP Work Phone: [facility] Comment on above: Shoulder impingement syndrome, left (Primary Dx); Shoulder impingement syndrome, right Start: 02-01-2024 Refoleg Motley MD Work Phone: [facility] Start: 01-27-2024 End: 01-27-2024 Office outpatient visit 25 minutes Miriam Chambers Nahid [employer] REC[employer]PER Work Phone: [facility] Comment on above: Anxiety; Moderate major depression (HCC) Start: 01-13-2024 End: 01-13-2024 ambulatory Charly Dias CNP Work Phone: [facility] Comment on above: Impingement syndrome of shoulder region, unspecified laterality (Primary Dx) Start: 01-01-2024 End: 01-01-2024 ambulatory Charly Dias CNP Work Phone: [facility] Comment on above: Impingement syndrome of shoulder region, unspecified laterality (Primary Dx) Start: 12-29-2023 End: 12-29-2023 ambulatory Charly Dias CNP Work Phone: [facility] Comment on above: Impingement syndrome of shoulder region, unspecified laterality (Primary Dx) Start: 12-25-2023 End: 12-25-2023 Office outpatient visit 40 minutes Sj Motley MD Work Phone: [facility] Comment on above: Bipolar affective di sorder, remission status unspecified (HCC) (Primary Dx); Moderate major depression (HCC); Acute pain of left shoulder; Chronic obstructive pulmonary disease, unspecified COPD type (HCC); Dysphagia, unspecified type; Gastroesophageal reflux disease, unspecified whether esophagitis present; Osteoporosis, unspecified osteoporosis type, unspecified pathological fracture presence; Prediabetes; Abnormal finding of blood chemistry, unspecified Start: 12-22-2023 End: 12-22-2023 ambulatory Charly Dias CNP Work Phone: [facility] Comment on above: Impingement syndrome of shoulder region, unspecified laterality (Primary Dx) Start: 12-16-2023 End: 12-16-2023 Clinical Support Brittany King Work Phone: [facility] Comment on above: Sensorineural hearin g loss, bilateral (Primary Dx) Start: 12-11-2023 End: 12-11-2023 ambulatory Charly Dias [employer] Work Phone: [facility] Comment on above: Impingement syndrome of shoulder region, unspecified laterality (Primary Dx) Start: 12-10-2023 End: 12-10-2023 Office outpatient visit 25 minutes Miriam Cerna [employer] Work Phone: [facility] Comment on above: Moderate major depre ssion (HCC) (Primary Dx); Anxiety Start: 12-09-2023 End: 12-09-2023 ambulatory Chralycarl Dias [employer] REC[employer]PER Work Phone: [facility] Comment on above: Impingement syndrome of shoulder region, unspecified laterality (Primary Dx) Start: 12-07-2023 Refill Sj Motley MD Work Phone: [facility] Comment on above: Chronic migraine wit hout aura without status migrainosus, not intractable Start: 12-04-2023 End: 12-04-2023 ambulatory Charly Dias [employer] Work Phone: [facility] Comment on above: Impingement syndrome of shoulder region, unspecified laterality (Primary Dx); Shoulder impingement syndrome, right; Shoulder impingement syndrome, left Start: 11-12-2023 Orders Only Elizabeth Reynolds LPN [facility] Comment on above: Shoulder impingement syndrome, right (Primary Dx); Shoulder impingement syndrome, left Start: 11-11-2023 Refill Samuel Hunt MA [facility] Comment on above: Chronic obstructive pulmonary disease, unspecified COPD type (HCC) Start: 11-05-2023 Refill Sj Motley MD Work Phone: [facility] Comment on above: Bipolar affective di sorder, remission status unspecified (HCC) Start: 11-04-2023 End: 11-04-2023 Patient encounter procedure Charly Morgancock TIRE RECAPPER Work Phone: [facility] Comment on above: Shoulder impingement syndrome, right (Primary Dx); Shoulder impingement syndrome, left Start: 11-03-2023 End: 11-03-2023 Office outpatient new 45 minutes Sj Motley MD Work Phone: [facility] Comment on above: Bipolar affective di sorder, remission status unspecified (HCC) (Primary Dx); Anxiety Start: 11-02-2023 ambulatory SELF SELF [facility] Start: 11-02-2023 End: 11-02-2023 Patient encounter procedure Judie Galvez APRN-TIRE RECAPPER Work Phone: [facility] Comment on above: Primary osteoarthrit is of both knees (Primary Dx) Start: 10-30-2023 Refill Sj Motley MD Work Phone: [facility] Comment on above: Gastroesophageal ref lux disease, unspecified whether esophagitis present (Primary Dx) Start: 10-26-2023 ambulatory SELF SELF [facility] Start: 10-26-2023 End: 10-26-2023 Patient encounter procedure Judie Galvez APRN-TIRE RECAPPER Work Phone: [facility] Comment on above: Primary osteoarthrit is of both knees (Primary Dx) Start: 10-19-2023 ambulatory SELF SELF [facility] Start: 10-19-2023 End: 10-19-2023 Office outpatient visit 25 minutes Judie Galvez APRN-TIRE RECAPPER Work Phone: [facility] Comment on above: Primary osteoarthrit is of both knees (Primary Dx) Start: 10-12-2023 ambulatory JULIANNA OSULLIVAN [facility] Start: 09-30-2023 End: 09-30-2023 ambulatory Syed Canas Facility:[facility] Start: 09-21-2023 Refill Samuel Hunt [facility] Start: 09-18-2023 Refill Do mc TIRE RECAPPER Work Phone: [facility] Comment on above: History of endoscopi c sinus surgery Start: 09-17-2023 End: 09-17-2023 Office outpatient visit 40 minutes Sj Moltey MD Work Phone: [facility] Comment on above: Controlled type 2 di abetes mellitus without complication, without long-term current use of insulin (HCC) (Primary Dx); Moderate major depression (HCC); AVN (avascular necrosis of bone) (HCC); Bipolar affective disorder, remission status unspecified (HCC); Chronic obstructive pulmonary disease, unspecified COPD type (HCC); Bronchiectasis without complication (HCC); Paroxysmal atrial fibrillation (HCC); Malignant neoplasm (HCC); Insomnia, unspecified type Start: 09-15-2023 End: 09-15-2023 Office outpatient visit 15 minutes Ian Mckeon MD Work Phone: [facility] Comment on above: Eosinophilic asthma (Primary Dx) Start: 09-14-2023 Orders Only Otf hanks TIRE RECAPPER Work Phone: [facility] Comment on above: Encounter for screen ing for malignant neoplasm of lung in current smoker with 30 pack year history or greater (Primary Dx); Personal history of nicotine dependence Start: 09-09-2023 End: 09-09-2023 ambulatory Rohan Palencia MD Work Phone: [facility] Comment on above: Dysphagia, unspecifi ed type (Primary Dx) Start: 08-14-2023 Refill Sj Motley MD Work Phone: [facility] Start: 08-08-2023 Orders Only Rohan rodney MD Work Phone: [facility] Comment on above: Dysphagia, unspecifi ed type (Primary Dx) Start: 08-07-2023 Refill Samuel Hunt MA [facility] Start: 08-05-2023 End: 08-05-2023 ambulatory Rohan Palencia MD Work Phone: [facility] Comment on above: Dysphagia, unspecifi ed type (Primary Dx); Migraine without status migrainosus, not intractable, unspecified migraine type; Dysarthria Start: 08-04-2023 End: 08-04-2023 Office outpatient visit 25 minutes Brenda Cartagena DO Work Phone: [facility] Comment on above: Calcium pyrophosphat e deposition disease (CPPD) (Primary Dx); Other secondary osteoarthritis of multiple sites; Myalgia Start: 07-15-2023 End: 07-15-2023 Clinical Support Brittany Koenig AuD Work Phone: [facility] [facility] Comment on above: Sensorineural hearin g loss, bilateral (Primary Dx) Start: 07-13-2023 Refill Sj Motley MD Work Phone: [facility] Comment on above: Bipolar affective di sorder, remission status unspecified (HCC) Start: 07-07-2023 End: 07-07-2023 Office outpatient new 60 minutes Sj Motley MD Work Phone: [facility] Comment on above: Migraine without sta tus migrainosus, not intractable, unspecified migraine type (Primary Dx) Start: 07-03-2023 End: 07-03-2023 Office outpatient new 45 minutes Charly Dias CNP Work Phone: [facility] Comment on above: Polyarthralgia (Prim abigail Dx); Pseudogout Start: 06-25-2023 End: 06-25-2023 Clinical Support Charly Dias CNP Work Phone: [facility] Comment on above: Shoulder impingement syndrome, right (Primary Dx); Shoulder impingement syndrome, left Start: 06-17-2023 End: 06-17-2023 Clinical Support Brittany King Work Phone: [facility] Comment on above: Sensorineural hearin g loss, bilateral (Primary Dx) Start: 06-03-2023 Refill Sj Motley MD Work Phone: [facility] Start: 05-18-2023 Documentation procedure Mayela taveras LPN [facility] Comment on above: PA initiated for Cormier toprazole 40 mg tablet Start: 05-12-2023 Refill Mayela Fontenot LPN [facility] Start: 05-07-2023 End: 05-07-2023 Office outpatient visit 40 minutes Sj Motley MD Work Phone: [facility] Comment on above: Cardiac arrhythmia, unspecified cardiac arrhythmia type (Primary Dx); Paroxysmal atrial fibrillation (HCC); Chronic maxillary sinusitis; Muscle cramps; Bronchiectasis without complication (HCC); Wheezing; Bipolar affective disorder, remission status unspecified (HCC); Chronic migraine without aura without status migrainosus, not intractable; Chronic left-sided low back pain with left-sided sciatica Start: 04-24-2023 Refill Do mc TIRE RECAPPER Work Phone: [facility] Comment on above: History of endoscopi c sinus surgery Start: 04-21-2023 Refill Do mc TIRE RECAPPER Work Phone: [facility] Comment on above: History of endoscopi c sinus surgery (Primary Dx) Start: 04-13-2023 ambulatory JULIANNA Almazan [facility] Start: 04-13-2023 End: 04-13-2023 Patient encounter procedure Julianna Osullivan MD Work Phone: [facility] Comment on above: Primary osteoarthrit is of both knees (Primary Dx) Start: 04-07-2023 Documentation procedure Mayela taveras LPN [facility] Comment on above: [employer] Appeal for Ub relvy 50 mg tab Start: 04-06-2023 Orders Only Elizabeth Reynolds LPN [facility] Comment on above: Encounter to establi sh care with new doctor (Primary Dx) Start: 04-01-2023 ambulatory JULIANNA OSULLIVAN Refugioryann [facility] Start: 03-31-2023 End: 03-31-2023 ambulatory Sj Motley MD Work Phone: [facility] Comment on above: Arrived Start: 03-27-2023 End: 03-27-2023 ambulatory Sj Motley MD Work Phone: [facility] Comment on above: Chronic left-sided l ow back pain with left-sided sciatica [M54.42, G89.29] (Primary Dx); Muscle cramps [R25.2] Start: 03-23-2023 End: 03-23-2023 ambulatory Sj Motley MD Work Phone: [facility] Comment on above: Muscle cramps [R25.2 ] (Primary Dx) Start: 03-19-2023 End: 03-19-2023 Patient encounter procedure Charly Dias CNP Work Phone: [facility] Comment on above: Shoulder impingement syndrome, right (Primary Dx); Shoulder impingement syndrome, left Start: 03-17-2023 End: 03-17-2023 ambulatory Sj Motley MD Work Phone: [facility] Comment on above: Chronic left-sided l ow back pain with left-sided sciatica [M54.42, G89.29] (Primary Dx); Muscle cramp [R25.2] Start: 03-13-2023 End: 03-13-2023 ambulatory Sj Motley MD Work Phone: [facility] Comment on above: Chronic left-sided l ow back pain with left-sided sciatica [M54.42, G89.29] (Primary Dx); Muscle cramps [R25.2] Start: 02-27-2023 End: 02-27-2023 ambulatory Sj Motley MD Work Phone: [facility] Comment on above: Chronic left-sided l ow back pain with left-sided sciatica [M54.42, G89.29] (Primary Dx); Muscle cramps [R25.2] Start: 02-25-2023 End: 02-25-2023 ambulatory Charly Dias TIRE RECAPPER Work Phone: [facility] Comment on above: Muscle cramps; Chronic left-sided low back pain with left-sided sciatica Start: 02-20-2023 Telephone encounter Mayela Moran [facility] Comment on above: Medication Refill Start: 02-12-2023 End: 02-12-2023 Office outpatient visit 25 minutes Mateus Samuels MD Work Phone: [facility] Comment on above: Chronic maxillary si nusitis (Primary Dx); History of endoscopic sinus surgery Start: 02-04-2023 End: 02-04-2023 Clinical Support Brittany Koenig [facility] Work Phone: [facility] Comment on above: Sensorineural hearin g loss, bilateral (Primary Dx) Start: 01-21-2023 End: 01-21-2023 Office outpatient visit 25 minutes Otf Chan TIRE RECAPPER Work Phone: [facility] Comment on above: Recurrent acute sero us otitis media of left ear (Primary Dx); Chronic obstructive pulmonary disease, unspecified COPD type (HCC); Eosinophilic asthma; Bronchiectasis without complication (HCC) Start: 01-16-2023 Refill Mayela Fontenot LPN [facility] Start: 12-10-2022 End: 12-10-2022 ambulatory Charly Dias CNP Work Phone: [facility] Comment on above: Primary osteoarthrit is of both knees (Primary Dx); Impingement syndrome of both shoulders Start: 12-05-2022 End: 12-05-2022 ambulatory Charly Dias CNP Work Phone: [facility] Comment on above: Primary osteoarthrit is of both knees (Primary Dx); Impingement syndrome of both shoulders Start: 11-28-2022 End: 11-28-2022 Orders Only Otf Miguel Chan TIRE RECAPPER Work Phone: [facility] Comment on above: Chronic obstructive pulmonary disease, unspecified COPD type (HCC) (Primary Dx) Primary osteoarthrit is of both knees (Primary Dx); Impingement syndrome of both shoulders Start: 11-25-2022 End: 11-25-2022 Office outpatient new 60 minutes Sj Motley MD Work Phone: [facility] Comment on above: Chronic maxillary si nusitis (Primary Dx); Controlled type 2 diabetes mellitus without complication, without long-term current use of insulin (HCC); Hypothyroidism (acquired); Osteoporosis, unspecified osteoporosis type, unspecified pathological fracture presence; Chronic obstructive pulmonary disease, unspecified COPD type (HCC); Eosinophilic asthma; AVN (avascular necrosis of bone) (HCC); Bipolar affective disorder, remission status unspecified ([facility]); Gastroesophageal reflux disease, unspecified whether esophagitis present Start: 11-24-2022 End: 11-24-2022 ambulatory Charly Dias TIRE RECAPPER [facility] Comment on above: Primary osteoarthrit is of both knees (Primary Dx); Impingement syndrome of both shoulders Start: 11-18-2022 End: 11-18-2022 ambulatory Charly Dias TIRE RECAPPER Work Phone: [facility] Comment on above: Primary osteoarthrit is of both knees (Primary Dx); Impingement syndrome of both shoulders Start: 11-12-2022 End: 11-12-2022 ambulatory Charly Dias CNP [facility] Comment on above: Primary osteoarthrit is of both knees (Primary Dx); Impingement syndrome of both shoulders Start: 10-28-2022 End: 10-28-2022 Orders Only Do Khanna TIRE RECAPPER Work Phone: [facility] Comment on above: Chronic obstructive pulmonary disease, unspecified COPD type (HCC) (Primary Dx); Chronic maxillary sinusitis; Chronic ethmoidal sinusitis Primary osteoarthrit is of both knees (Primary Dx); Impingement syndrome of both shoulders Start: 10-27-2022 End: 10-27-2022 Office outpatient visit 15 minutes Mateus Samuels MD Work Phone: [facility] Comment on above: Subacute maxillary s inusitis (Primary Dx) Start: 10-27-2022 Refill Do mc TIRE RECAPPER Work Phone: [facility] Comment on above: Chronic maxillary si nusitis (Primary Dx); Chronic ethmoidal sinusitis; Chronic frontal sinusitis Start: 10-24-2022 End: 10-24-2022 Office outpatient visit 10 minutes Jovanna Valencia MD Work Phone: [facility] Comment on above: S/P total left hip a rthroplasty (Primary Dx) Start: 10-23-2022 End: 10-23-2022 ambulatory Charly Dias CNP Work Phone: [facility] Comment on above: Primary osteoarthrit is of both knees (Primary Dx); Impingement syndrome of both shoulders Start: 10-21-2022 End: 10-21-2022 ambulatory Charly Dias CNP Work Phone: [facility] Comment on above: Primary osteoarthrit is of both knees (Primary Dx); Impingement syndrome of both shoulders Start: 10-20-2022 End: 10-20-2022 Clinical Support Brittany King Work Phone: [facility] Comment on above: Sensorineural hearin g loss, bilateral (Primary Dx) Start: 10-14-2022 End: 10-14-2022 ambulatory Charly Dias CNP [facility] Comment on above: Primary osteoarthrit is of both knees (Primary Dx); Impingement syndrome of both shoulders Start: 10-10-2022 End: 10-10-2022 ambulatory Charly Morganowen KING Work [facility] Comment on above: Primary osteoarthrit is of both knees (Primary Dx); Impingement syndrome of both shoulders Start: 10-07-2022 End: 10-07-2022 ambulatory Charly Goodmancarl Dias CNP Work Phone: [facility] Comment on above: Primary osteoarthrit is of both knees (Primary Dx); Impingement syndrome of both shoulders Start: 10-03-2022 Orders Only Mateus Samuels MD Work Phone: [facility] Comment on above: Subacute maxillary s inusitis (Primary Dx) Start: 10-02-2022 End: 10-02-2022 ambulatory Charly Dias CNP Work Phone: [facility] Comment on above: Impingement syndrome of both shoulders; Primary osteoarthritis of both knees Start: 10-01-2022 Orders Only Mateus Samuels MD Work Phone: [facility] Comment on above: Chronic maxillary si nusitis (Primary Dx) Start: 10-01-2022 End: 10-01-2022 Office outpatient new 60 minutes Syed Canas MD Work Phone: [facility] Comment on above: Chronic maxillary si nusitis; Chronic ethmoidal sinusitis; Unspecified mycosis; Chronic sinusitis, unspecified location Start: 09-29-2022 End: 09-29-2022 Office outpatient visit 25 minutes Charly Dias CNP Work Phone: [facility] Comment on above: Shoulder impingement syndrome, left (Primary Dx); Shoulder impingement syndrome, right Start: 09-24-2022 End: 09-24-2022 Clinical Support Brittany King Work Phone: [facility] Comment on above: Sensorineural hearin g loss, bilateral (Primary Dx) Start: 09-22-2022 End: 09-22-2022 Office outpatient visit 25 minutes Charly Dias TIRE RECAPPER Work Phone: [facility] Comment on above: Primary osteoarthrit is of both knees (Primary Dx); Arthritis of knee, left Start: 09-01-2022 End: 09-01-2022 Patient encounter procedure Judie Florence MICA MINER-TIRE RECAPPER Work Phone: [facility] Comment on above: Primary osteoarthrit is of both knees (Primary Dx) Start: 08-25-2022 End: 08-25-2022 Office outpatient visit 25 minutes Julianna Osullivan MD Work Phone: [facility] Comment on above: Primary osteoarthrit is of both knees (Primary Dx) Start: 08-20-2022 End: 08-21-2022 ambulatory [facility] Start: 08-04-2022 End: 08-04-2022 Clinical Support Brittany Koenig AuD Work Phone: [facility] Comment on above: Sensorineural hearin g loss, bilateral (Primary Dx) Start: 07-16-2022 End: 07-16-2022 Clinical Support Brittany Koenig AuD Work Phone: [facility] Comment on above: Sensorineural hearin g loss, bilateral (Primary Dx) Start: 07-11-2022 Transcribe Orders Dione Gonzalez [facility] Comment on above: Chronic maxillary si nusitis (Primary Dx); Chronic ethmoidal sinusitis; Unspecified mycosis; Chronic sinusitis, unspecified location Start: 06-23-2022 End: 06-23-2022 Clinical Support Brittany Koenig AuD Work Phone: [facility] Comment on above: Sensorineural hearin g loss, bilateral (Primary Dx) Start: 05-26-2022 End: 05-26-2022 Office outpatient visit 25 minutes Isiah Pererafifi Nils DO Work Phone: [facility] Comment on above: Chronic maxillary si nusitis (Primary Dx); Chronic frontal sinusitis; History of endoscopic sinus surgery; TMJ (temporomandibular joint disorder) Start: 05-15-2022 End: 05-15-2022 Clinical Support Brittany King Work Phone: [facility] Comment on above: Sensorineural hearin g loss, bilateral (Primary Dx); Hearing loss, unspecified hearing loss type, unspecified laterality Start: 05-15-2022 End: 05-15-2022 Office outpatient visit 25 minutes Isiah Pererafifi Wray DO Work Phone: [facility] Comment on above: Fungal sinusitis (Pr imary Dx); Chronic maxillary sinusitis; Otalgia, left ear; TMJ (temporomandibular joint disorder); Hearing loss, unspecified hearing loss type, unspecified laterality; Bilateral change in hearing Start: 04-30-2022 Transcribe Orders Kamini Rodríguez [facility] Comment on above: Chronic maxillary si nusitis (Primary Dx) Start: 04-18-2022 End: 04-18-2022 Office outpatient visit 10 minutes Jovanna Valencia MD Work Phone: [facility] Comment on above: S/P total left hip a rthroplasty (Primary Dx) Start: 04-18-2022 Transcribe Orders Doreen Pavon MA [facility] Comment on above: Chronic maxillary si nusitis (Primary Dx) Start: 02-13-2022 End: 02-13-2022 Office outpatient visit 25 minutes Charly Dias CNP Work Phone: [facility] Comment on above: Calcific tendinitis (Primary Dx) Start: 02-11-2022 End: 02-11-2022 Patient encounter procedure Judie Galvez MICA MINER-TIRE RECAPPER Work Phone: [facility] Comment on above: Primary osteoarthrit is of both knees (Primary Dx) Start: 01-31-2022 End: 01-31-[address] [facility]pal [facility] Start: 01-28-2022 End: 01-28-2022 Office outpatient new 45 minutes Julianna Osullivan MD Work Phone: [facility] Comment on above: Right knee pain, uns pecified chronicity (Primary Dx); Primary osteoarthritis of both knees Start: 01-27-2022 End: 01-27-[address] Harpal Gonzalez [facility] Start: 12-26-2021 End: 12-26-[address] Syed Canas Work Phone: [facility] Start: 12-13-2021 End: 12-13-2021 Office outpatient visit 10 minutes Jovanna Valencia MD Work Phone: [facility] Comment on above: S/P total left hip a rthroplasty (Primary Dx); Arthritis of knee, left Start: 12-10-2021 End: 12-10-[address] Harpal Gonzalez Work Phone: [facility] Start: 11-18-2021 End: 11-18-[address] Harpal Gonzalez Work Phone: [facility] Start: 11-12-2021 Refill Elizabeth Reynolds LPN [facility] Comment on above: S/P total left hip a rthroplasty (Primary Dx) Start: 11-08-2021 End: 11-08-2021 Postop follow up visit related to original px Jovanna Valencia MD Work Phone: [facility] Comment on above: S/P total left hip a rthroplasty (Primary Dx) Start: 11-07-2021 End: 11-07-2021 Home visit Sue Potts RN [facility] Comment on above: SN HH OASIS DISCHARG E Start: 11-06-2021 End: 11-06-2021 Home visit Nir Bryant PIPE FINISHING SUPERVISOR [facility] Comment on above: PIPE FINISHING SUPERVISOR ROUTINE VISIT Start: 11-04-2021 End: 11-04-2021 Home visit Nir Bryant [facility] Comment on above: PIPE FINISHING SUPERVISOR ROUTINE VISIT Start: 11-01-2021 Home visit Maame Carmona [facility] Comment on above: GLOBE CLEANER HH MISSED VISIT Start: 10-30-2021 End: 10-30-2021 Home visit Elisabet Shellrajesh [facility] Comment on above: GLOBE CLEANER HH ROUTINE PIPE FINISHING SUPERVISOR ROUTINE VISIT Start: 10-28-2021 Documentation procedure Carrie Matthews [facility] Comment on above: Status post left hip replacement (Primary Dx) Start: 10-28-2021 End: 10-28-2021 Home visit Eboni Cruz RN [facility] Comment on above: SN HH PRN VISIT PIPE FINISHING SUPERVISOR ROUTINE VISIT Start: 10-27-2021 Home visit Natalie Hunt RN [facility] Comment on above: CASE COMMUNICATION Start: 10-26-2021 Home visit Natalie Hunt RN [facility] Comment on above: CASE COMMUNICATION Start: 10-24-2021 End: 10-24-2021 Home visit Harpal Perez PT [facility] Comment on above: PT INITIAL EVALUATIO N Start: 10-23-2021 End: 10-23-2021 Home visit Natalie Hunt RN [facility] Comment on above: SN HH OASIS START OF CARE Start: 10-21-2021 End: 11-07-2021 ambulatory JOVANNA VALENCIA [facility] Start: 10-17-2021 End: 10-17-2021 ambulatory SYDE Sanders FLORESITA [facility] Start: 10-14-2021 Orders Only Jovanna costa MD Work Phone: [facility] Comment on above: Exposure to SARS-ass ociated coronavirus (Primary Dx) Start: 09-25-2021 End: 09-25-[address] Harpal Gonzalez Work Phone: [facility] Start: 09-10-2021 Orders Only Jovanna costa MD Work Phone: [facility] Comment on above: Primary osteoarthrit is of left hip (Primary Dx); AVN (avascular necrosis of bone) (HCC); Hypertension, unspecified type; Controlled type 2 diabetes mellitus without complication, without long-term current use of insulin (HCC) Start: 08-30-2021 End: 08-30-2021 Office outpatient visit 15 minutes Jovanna Valencia MD Work Phone: [facility] Comment on above: Primary osteoarthrit is of left hip (Primary Dx) Start: 08-26-2021 End: 08-26-[address] Harpal Gonzalez Work Phone: [facility] Start: 08-26-2021 End: 08-26-2021 Encounter for other preprocedural examination Dr. Harpal Gonzalez Work Phone: [facility] Start: 08-26-2021 End: 08-26-[address] Harpal Gonzalez Work Phone: [facility] Start: 08-26-[address] Harpal Gonzalez Work Phone: [facility] Work Phone: Start: 07-17-2021 End: 07-17-2021 Office outpatient new 30 minutes Charly Dias CNP Work Phone: [facility] Comment on above: Primary osteoarthrit is of left hip (Primary Dx); AVN (avascular necrosis of bone) (HCC) Start: 04-15-2019 End: 04-15-2019 Marixa Perry Work Phone: [facility] Comment on above: Palpitations (Primar y Dx); Essential hypertension Start: 02-18-2019 End: 02-18-2019 Refill Sharlene Wilder [facility] Comment on above: Palpitations (Primar y Dx) Start: 02-18-2019 End: 02-18-2019 Refill Judd Prery Work Phone: [facility] Start: 01-03-2019 End: 01-03-2019 Telephone encounter Julianna Chacon Shi Work Phone: [facility] Comment on above: Appointment Start: 10-11-2018 End: 10-11-2018 Refill Brice Cisneros Work Phone: [facility] Start: 07-23-2018 End: 07-23-2018 Office outpatient visit 15 minutes Rohan Rausch Work Phone: [facility] Comment on above: Left hip pain (Prima ry Dx); Trochanteric bursitis of left hip; Iliotibial band tendinitis of left side Start: 07-07-2018 End: 07-07-2018 Patient encounter procedure Judie Galvez Work Phone: [facility] Comment on above: Primary osteoarthrit is of both knees (Primary Dx) Start: 03-24-2018 End: 03-24-2018 Patient encounter Yonas Ender Patrick Work Phone: [facility] Start: 03-19-2018 Patient encounter status Mitch Galvez MICA MINER-TIRE RECAPPER Work Phone: [facility] Start: 11-17-2017 Ambulatory DANIEL MORENO [facility] Start: 10-19-2017 [facility] Start: 09-14-2017 Ambulatory [facility] Start: 06-29-2017 [facility] Start: 06-17-2017 [facility] Start: 04-01-2017 End: 04-01-2017 Ambulatory Jerome Cassidy Facility:[facility] Start: 03-25-2017 End: 03-25-2017 Ambulatory Lisa Hill Facility:[facility] Start: 02-24-2017 End: 02-25-2017 Ambulatory Lisakadie Hill Facility:[facility] Procedures Date Procedure Procedure Detail Performing Clinician Start: 12-13-2024 Basic metabolic panel calcium total Dony Goodman Gonzales TIRE RECAPPER Work Phone: Start: 12-12-2024 Basic metabolic panel calcium total Heather Kely Movens PA-C Work Phone: Start: 12-11-2024 Basic metabolic panel calcium total Heather Kely Movens PA-C Work Phone: Start: 12-11-2024 Radex hip unilateral with pelvis 1 view Heather Kely Movens PA-C Work Phone: Start: 12-11-2024 Basic metabolic panel calcium total Heather Kely Movens PA-C Work Phone: Start: 12-10-2024 Basic metabolic panel calcium total Heather Kely Movens PA-C Work Phone: Start: 12-09-2024 Radiologic exam abdomen 1 view Heather Ekly Movens PA-C Work Phone: Start: 12-09-2024 Assay of magnesium Heather Kely Movens PA-C Work Phone: Start: 12-08-2024 Assay of magnesium Heather Kely Movens PA-C Work Phone: Start: 12-06-2024 Mri brain brain stem w/o contrast material Heather Kely Movens PA-C Work Phone: Start: 12-06-2024 Basic metabolic panel calcium total Heather Kely Movens PA-C Work Phone: Start: 12-05-2024 Basic metabolic panel calcium total Sallie Stewart TIRE RECAPPER Work Phone: Start: 12-04-2024 Comprehensive metabolic panel Sallie Stewart TIRE RECAPPER Work Phone: Start: 12-04-2024 Lipid panel Sallie Carlson GRAPHIC ART DESIGNER Work Phone: Start: 10-31-2024 Ecg routine ecg w/least 12 lds w/i&r Zhao Rincon MD Work Phone: Start: 10-27-2024 Basic metabolic panel calcium total Halina Hickey MD Work Phone: Start: 10-26-2024 End: 10-26-2024 Sodium serum plasma or whole blood Halina Hickey MD Work Phone: Start: 10-26-2024 Basic metabolic panel calcium total Halina Hickey MD Work Phone: Start: 10-25-2024 End: 10-25-2024 Sodium serum plasma or whole blood Sheila Banks MD Work Phone: Start: 10-25-2024 Urnls dip stick/tablet reagent auto microscopy Sheila Banks MD Work Phone: Start: 10-25-2024 Assay of lipase Do Pichardoir TIRE RECAPPER Work Phone: Start: 10-25-2024 Hepatic function panel Do Pichardo ir TIRE RECAPPER Work Phone: Start: 10-25-2024 Glucose measurement Sheila Banks MD Work Phone: Start: 10-25-2024 End: 10-25-2024 Basic metabolic panel calcium total Sheila Banks MD Work Phone: Start: 10-25-2024 Us abdominal real time w/image limited Sheila Banks MD Work Phone: Start: 10-24-2024 Basic metabolic panel calcium total Sheila Banks MD Work Phone: Start: 03-02-2024 Arthrocentesis aspir&/inj major jt/bursa w/o us Charly Dias TIRE RECAPPER Work Phone: Start: 03-02-2024 Arthrocentesis aspir&/inj major jt/bursa w/o us Charly Dias TIRE RECAPPER Work Phone: Start: 11-09-2023 Arthrocentesis aspir&/inj major jt/bursa w/o Charly Dias TIRE RECAPPER Work Phone: Start: 11-09-2023 Arthrocentesis aspir&/inj major jt/bursa w/o Charly Dias [facility] Work Phone: Start: 11-02-2023 Arthrocentesis aspir&/inj major jt/bursa w/o Judie Galvez MICA MINER-[facility] Work Phone: Start: 10-26-2023 Arthrocentesis aspir&/inj major jt/bursa w/o [facility] Work Phone: Start: 10-19-2023 Arthrocentesis aspir&/inj major jt/bursa w/o Judie Galvez MICA MINER-[facility] Work Phone: Start: 09-18-2023 Microalbumin [Mass/volume] in Urine by Test strip Samuel Hunt MA Start: 06-25-2023 Arthrocentesis aspir&/inj major jt/bursa w/o Charly Dias [facility] Work Phone: Start: 06-25-2023 Arthrocentesis aspir&/inj major jt/bursa w/o Charly Dias [facility] Work Phone: Start: 05-07-2023 Ecg routine ecg w/least 12 lds w/i&r Sj Motley MD Work Phone: Start: 04-13-2023 Arthrocentesis aspir&/inj major jt/bursa w/o us Julianna Osullivan MD Work Phone: Start: 03-20-2023 Arthrocentesis aspir&/inj major jt/bursa w/o Charly Dias TIRE RECAPPER Work Phone: Start: 03-20-2023 Arthrocentesis aspir&/inj major jt/bursa w/o Charly Dias [facility] Work Phone: Start: 12-02-2022 Microalbumin [Mass/volume] in Urine by Test strip Juan Lee PTA Start: 10-01-2022 End: 10-01-2022 Cul bact xcpt urine blood/stool aerobic isol Maetus Samuels MD Work Phone: Start: 09-29-2022 Arthrocentesis aspir&/inj major jt/bursa w/o Charly Dias [facility] Work Phone: Start: 09-22-2022 Arthrocentesis aspir&/inj major jt/bursa w/o Charly Dias [facility] Work Phone: Start: 09-01-2022 Arthrocentesis aspir&/inj major jt/bursa w/o us Judie Galvez MICA MINER-TIRE RECAPPER Work Phone: Start: 08-25-2022 Arthrocentesis aspir&/inj major jt/bursa w/o Julianna Osullivan MD Work Phone: Start: 08-20-2022 Minerva Palmer [facility] Start: 05-26-2022 H/O: surgery History of endoscopic sinus surgery Isiah Wray DO Work Phone: Start: 02-13-2022 Arthrocentesis aspir&/inj major jt/bursa w/o Charly Dias TIRE RECAPPER Work Phone: Start: 02-11-2022 Arthrocentesis aspir&/inj major jt/bursa w/o us Judie Galvez MICA MINER-TIRE RECAPPER Work Phone: Start: 01-28-2022 Arthrocentesis aspir&/inj major jt/bursa w/o us Julianna Osullivan MD Work Phone: Start: 12-10-2021 CT of chest without contrast Dr. Harpal Gonzalez Work Phone: Start: 08-26-2021 Plain chest X-ray Dr. Harpal Gonzalez Work Phone: Start: 07-23-2018 End: 07-23-2018 Intra-articular injection Rohan Rausch Work Phone: Start: 07-07-2018 End: 07-07-2018 Intra-articular injection Judie Galvez Work Phone: Start: 06-25-2017 Lipid 1996 panel - Serum or Plasma Judie Galvez H/O: surgery History of endos copic sinus surgery Mateus Samuels MD Work Phone: H/O: surgery History of endos copic sinus surgery [facility] TIRE RECAPPER Work Phone: H/O: surgery History of endos cop[facility] [facility] Work Phone: H/O: surgery History of endos copic sinus surgery [facility] TIRE RECAPPER Work Phone: H/O: surgery History of endos copic sinus surgery Dogigi Barbosa [place] TIRE RECAPPER Work Phone: H/O: surgery History of endos copic sinus surgery [facility] TIRE RECAPPER Work Phone: H/O: surgery History of endos copic sinus surgery [facility] TIRE RECAPPER Work Phone: Investigation of transfusion reaction Dr. Harpal Gonzalez Work Phone: Plan of Treatment Date Care Activity Detail Author Start: 04-08-2030 Tetanus vaccination [facility] Start: 12-13-2025 eGFR Diabetes eGFR Diabetes [facility] Start: 11-16-2025 Urine screening for protein eGFR Diabetes [facility] Start: 10-27-2025 Urine screening for protein eGFR Diabetes [facility] Start: 10-25-2025 Urine screening for protein eGFR Diabetes [facility] Start: 09-30-2025 Urine screening for protein eGFR Diabetes [facility] Start: 05-31-2025 Urine screening for protein eGFR Diabetes [facility] Start: 05-04-2025 End: 05-04-2025 Patient encounter procedure 05/04/2025 11:00 AM EDT Office Visit [facility] [address] [place] [address] Miriam Cerna, FERNANDO [address] [place] [address] [facility] Start: 04-27-2025 Hemoglobin A1c measurement A1C [facility] Start: 03-13-2025 End: 03-13-2025 Patient encounter procedure 03/13/2025 2:20 PM EDT Office Visit [facility] [address] [place] [address] Sj Motley MD [address] [address] [facility] Start: 02-01-2025 End: 02-01-2025 Patient encounter procedure 02/01/2025 11:30 AM EDT Office Visit [facility] [address] [facility] [place] [phone] Miriam Cerna, FERNANDO [address] [place] [address] [facility] Start: 01-30-2025 End: 01-30-2025 Patient encounter procedure 01/30/2025 10:30 AM EDT Office Visit [facility] [address] [facility] [place] [phone] Miriam Cerna, FERNANDO [address] [place] [address] [facility] Start: 01-03-2025 End: 01-03-2025 Patient encounter procedure 01/03/2025 3:00 PM EDT Office Visit [facility] [address] [facility] [place] [address] Luis Eduardo Collier MD [address] [address] [facility] Start: 11-26-2024 Depression Remission Assessment (PHQ9) Depression Remission Assessment (PHQ9) [facility] Start: 11-23-2024 End: 11-23-2024 Admission to same day surgery center 11/23/2024 6:30 AM EDT - 11/23/2024 2:30 PM EDT Surgery [facility] [address] [facility] [place] [address] Luis Eduardo Collier MD [address] [address] Cervical 3- Cervical 7 Laminectomy, Cervical 2-6-3-7-3-Itstsyhk 1-2-3-4 Posterior Instrumentation and Posteriorlateral Fusion [facility] Comment on above: Cervical 3- Cervical 7 Laminectomy, Cerv ical 2-8-0-2-1-Asromgrw 1-2-3-4 Posterior Instrumentation and Posteriorlateral Fusion Start: 11-23-2024 End: 11-23-2024 Zamudio facetectomy & foramotomy 1 segment cervical LAMINECTOMY DECOMPRESSION POSTERIOR CERVICAL WITH FUSION NAVIGATIONAL 4 OR MORE LEVELS Cervical spondylosis with myelopathy 11/23/2024 6:30 AM EDT [facility] Main [facility] Start: 11-23-2024 Subsequent hospital visit by physician [facility] Start: 11-15-2024 End: 11-15-2024 Patient encounter procedure 11/15/2024 2:00 PM EDT Appointment [facility] [place] [phone] Zhao Rincon MD [address] [place] [address] [facility] Start: 11-14-2024 End: 11-14-2024 Patient encounter procedure 11/14/2024 11:00 AM EDT Office Visit [facility] Preadmission Testing [address] [place] [phone] Discharge Disposition: Home [facility] Preadmission Testing Start: 11-07-2024 End: 11-07-2024 Patient encounter procedure 11/07/2024 12:30 PM EDT Office Visit [facility] [address] [place] [address] Miriam Cerna, TIRE RECAPPER [address] [place] [address] [facility] Start: 11-07-2024 End: 11-07-2024 Telemedicine consultation with patient 11/07/2024 12:30 PM EDT Telemedicine [facility] [address] [place] [address] Miriam Cerna, FERNANDO [address] [place] [address] [facility] Start: 11-02-2024 End: 11-02-2024 Admission to same day surgery center 11/02/2024 6:30 AM EDT - 11/02/2024 2:30 PM EDT Surgery [facility] [address] [place] [address] Luis Eduardo Collier MD [address] [address] Cervical 3- Cervical 7 Laminectomy, Cervical 0-3-3-2-0-Dnvjryrk 1-2-3-4 Posterior Instrumentation and Posteriorlateral Fusion [facility] Comment on above: Cervical 3- Cervical 7 Laminectomy, Cerv ical 6-7-3-9-3-Dkytpwoo 1-2-3-4 Posterior Instrumentation and Posteriorlateral Fusion Start: 11-02-2024 End: 11-02-2024 Zamudio facetectomy & foramotomy 1 segment cervical LAMINECTOMY DECOMPRESSION POSTERIOR CERVICAL WITH FUSION NAVIGATIONAL 4 OR MORE LEVELS Cervical spondylosis with myelopathy 11/02/2024 6:30 AM EDT [facility] Start: 11-02-2024 Subsequent hospital visit by physician 11/02/2024 6:30 AM EDT Hospital Encounter [facility] [address] [place] [address] Luis Eduardo Collier MD [address] [address] [facility] Start: 10-31-2024 End: 10-31-2024 Patient encounter procedure [facility] Start: 10-26-2024 End: 10-26-2024 Patient encounter procedure 10/26/2024 1:00 PM EDT Procedure visit [facility] [address] [facility] Medical Office Building, 2nd [place] [address] Luis Eduardo Collier MD [address] [address] Dennis Woodall MD [address] [address] [facility] Start: 10-20-2024 End: 10-20-2024 Clinical Support 10/20/2024 10:00 AM EST Clinical Support [facility] [address] [facility] [place] [address] [facility] Start: 10-13-2024 End: 10-13-2024 Patient encounter procedure 10/13/2024 1:20 PM EST Office Visit [facility] [place] [address] Sj Motley MD [address] [address] [facility] Start: 09-19-2024 End: 09-19-2024 Patient encounter procedure 09/19/2024 1:30 PM EST Office Visit [facility] [address] [facility] [place] [address] Luis Eduardo Collier MD 335 [facility] 2nd [place] [address] [facility] Start: 09-18-2024 Urine screening for protein [facility] Start: 09-09-2024 End: 09-14-2024 CT Chest for screening WO contrast CT Lung Cancer Screening Imaging Routine Encounter for screening for malignant neoplasm of lung in current smoker with 30 pack year history or greater Personal history of nicotine dependence Expected: 09/09/2024, Expires: 09/14/2024 [facility] Work Phone: Comment on above: Expected: 09/09/2024, Expires: Start: 09-09-2024 Screening for malignant neoplasm of lung Low-dose CT Lung Cancer Screen [facility] Start: 09-09-2024 End: 09-09-2024 Patient encounter procedure 09/09/2024 1:40 PM EST Appointment [facility] CT Scan [address] [place] [phone] Otf Chan, TIRE RECAPPER [address] [place] [address] [facility] [address] Scan Start: 09-06-2024 Fall risk assessment Falls Risk Assessment [facility] Start: 09-04-2024 Depression Remission Assessment (PHQ9) Depression Remission Assessment (PHQ9) [facility] Start: 08-29-2024 End: 08-29-2024 Clinical Support 08/29/2024 2:00 PM EST Clinical Support [facility] [address] [facility] Medical Office Building, 5th [place] [address] Brittany Koenig AuD [address] [place] [address] [facility] Start: 07-13-2024 End: 07-13-2024 Telemedicine consultation with patient 07/13/2024 12:30 PM EST Telemedicine [facility] [address] [place] [phone] Miriam Cerna, TIRE RECAPPER [address] [place] [address] [facility] Start: 07-04-2024 End: 07-04-2024 Patient encounter procedure 07/04/2024 2:30 PM EST Office Visit [facility] [address] [place] [address] [place] [phone] Luis Eduardo Collier MD [address] [place] [address] [facility] Start: 06-29-2024 End: 06-29-2024 Patient encounter procedure 06/29/2024 1:30 PM EST Office Visit [facility] [address] [place] [address] Sj Motley MD [address] [address] Charly Dias, FERNANDO [address] [place] [address] [facility] Start: 06-15-2024 End: 06-15-2024 Patient encounter procedure 06/15/2024 1:30 PM EDT Office Visit [facility] [address] [place] [phone] Miriam Cerna, TIRE RECAPPER [address] [place] [address] [facility] Start: 06-14-2024 End: 06-14-2024 Patient encounter procedure 06/14/2024 2:00 PM EDT Office Visit [facility] [address] [place] [address] Sj Motley MD [address] [address] [facility] Start: 06-13-2024 End: 06-13-2024 Patient encounter procedure 06/13/2024 2:30 PM EDT Office Visit [facility] [address] [place] [address] [place] [address] Luis Eduardo Collier MD [address] [place] [address] [facility] Start: 06-06-2024 End: 06-06-2024 Patient encounter procedure 06/06/2024 1:00 PM EDT Office Visit [facility] [address] [place] [address] Judie Galvez MICA MINER-TIRE RECAPPER [address] [place] [address] [facility] Start: 05-30-2024 End: 05-30-2024 Patient encounter procedure 05/30/2024 1:00 PM EDT Office Visit [facility] [address] [place] [address] Judie Galvez, MICA MINER-TIRE RECAPPER [address] [place] [address] [facility] Start: 05-23-2024 End: 05-23-2024 Patient encounter procedure 05/23/2024 1:00 PM EDT Office Visit [facility] [address] [place] [address] Judie Galvez, MICA MINER-TIRE RECAPPER [address] [place] [address] [facility] Start: 05-02-2024 End: 05-02-2024 Patient encounter procedure 05/02/2024 12:30 PM EDT Office Visit [facility] [address] [place] [address] Miriam Cerna, FERNANDO [address] [place] [address] [facility] Start: 04-17-2024 COVID-19 Vaccine ( season) COVID-19 Vaccine () [facility] Start: 04-17-2024 COVID-19 Vaccine () COVID-19 Vaccine () [facility] Start: 04-17-2024 Influenza vaccination Influenza Vaccine (#1) [facility] Start: 03-18-2024 Hemoglobin A1c measurement A1C [facility] Start: 03-16-2024 End: 03-16-2024 Patient encounter procedure 03/16/2024 2:45 PM EDT Office Visit [facility] [address] [place] [address] Miriam Cerna, FERNANDO [address] [place] [address] [facility] Start: 03-11-2024 End: 03-11-2024 Patient encounter procedure [facility] Start: 02-15-2024 End: 02-15-2024 Patient encounter procedure 02/15/2024 1:30 PM EDT Office Visit [facility] [address] [place] [address] Charly Dias, TIRE RECAPPER [address] [place] [address] [facility] Start: 02-11-2024 End: 02-11-2024 Patient encounter procedure 02/11/2024 11:15 AM EDT Appointment [facility] MRI [address] [place] [phone] Charly Dias, TIRE RECAPPER [address] [place] [address] [facility] Start: 02-07-2024 Screening for malignant neoplasm of lung Low-dose CT Lung Cancer Screen [facility] Start: 02-03-2024 End: 02-03-2024 Patient encounter procedure [facility] Start: 02-02-2024 End: 02-02-2024 Patient encounter procedure 02/02/2024 1:00 PM EDT Office Visit [facility] [address] [place] [address] Charly Dias, TIRE RECAPPER [address] [place] [address] [facility] Start: 01-27-2024 End: 01-27-2024 Patient encounter procedure 01/27/2024 2:45 PM EDT Office Visit [facility] [address] [place] [phone] Miriam Cerna, FERNANDO [address] [place] [address] [facility] Start: 01-15-2024 End: 01-15-2024 ambulatory 01/15/2024 2:30 PM EDT Treatment [facility] [address] [place] [phone] Charly Dias, TIRE RECAPPER [address] [place] [address] Rita Parks PTA [facility] Start: 01-13-2024 End: 01-13-2024 ambulatory 01/13/2024 1:00 PM EDT Treatment [facility] [address] [place] [phone] Charly Dias, TIRE RECAPPER [address] [place] [address] Rita Parks PTA Discharge Disposition: [facility] Start: 01-05-2024 End: 01-05-2024 ambulatory 01/05/2024 1:45 PM EDT Treatment [facility] [address] [place] [address] Charly Dias, FERNANDO [address] [place] [address] Vic Glynn, PT Discharge Disposition: [facility] Start: 01-01-2024 End: 01-01-2024 ambulatory 01/01/2024 1:00 PM EDT Treatment [facility] [address] [place] [phone] Charly Dias, TIRE RECAPPER [address] [place] [address] Rita Parks PTA [facility] Start: 12-29-2023 End: 12-29-2023 ambulatory 12/29/2023 1:00 PM EDT Treatment [facility] [address] [place] [phone] Charly Dias, TIRE RECAPPER [address] [place] [address] Mathieu Ahn PTA [facility] Start: 12-25-2023 End: 12-25-2023 Patient encounter procedure 12/25/2023 11:40 AM EDT Office Visit [facility] [address] [place] [phone] Sj Motley MD [address] [address] [facility] Start: 12-24-2023 End: 12-24-2023 ambulatory 12/24/2023 1:00 PM EDT Treatment [facility] [address] [place] [phone] Charly Dias, FERNANDO [address] [place] [phone] Rita Parks PTA [facility] Start: 12-22-2023 End: 12-22-2023 ambulatory [facility] Start: 12-18-2023 End: 12-18-2023 ambulatory 12/18/2023 1:45 PM EDT Treatment [facility] [address] [place] [phone] Charly Dias, TIRE RECAPPER [address] [place] [phone] Rita Parks PTA [facility] Start: 12-16-2023 End: 12-16-2023 Clinical Support 12/16/2023 2:00 PM EDT Clinical Support [facility] [address] [facility] Medical Office Building, 5th [place] [phone] Brittany Koenig, Christine [address] [place] [address] [facility] Start: 12-14-2023 End: 12-14-2023 ambulatory 12/14/2023 1:00 PM EDT Treatment [facility] [address] [place] [phone] Charly Dias, FERNANDO [address] [place] [address] Rita Parks PTA Discharge Disposition: Home [facility] Start: 12-11-2023 End: 12-11-2023 ambulatory 12/11/2023 1:45 PM EDT Treatment [facility] [address] [place] [address] Charly Dias, TIRE RECAPPER [address] [place] [address] Rita Parks PTA [facility] Start: 12-10-2023 End: 12-10-2023 Patient encounter procedure 12/10/2023 1:00 PM EDT Office Visit [facility] [address] [place] [phone] Miriam Cerna, FERNANDO [address] [place] [address] [facility] Start: 12-09-2023 End: 12-09-2023 ambulatory 12/09/2023 4:00 PM EDT Treatment [facility] [address] [place] [phone] Charly Dias, TIRE RECAPPER [address] [place] [address] Madi Castro PTA Discharge Disposition: [facility] Start: 12-03-2023 Urine screening for protein Urine Microalbumin [facility] Start: 11-04-2023 End: 11-04-2023 Patient encounter procedure 11/04/2023 1:00 PM EDT Office Visit [facility] [address] [place] [address] Charly Disa, TIRE RECAPPER [address] [place] [address] [facility] Start: 11-03-2023 End: 11-03-2023 Patient encounter procedure 11/03/2023 1:00 PM EDT Office Visit [facility] [address] [place] [address] Sj Motley MD [address] [address] Miriam Cerna CNP [address] [place] [address] [facility] Start: 11-02-2023 End: 11-02-2023 Patient encounter procedure 11/02/2023 1:00 PM EDT Office Visit [address] [address] Judie Galvez, MICA MINER-TIRE RECAPPER [address] [place] [address] [facility] [facility] Start: 10-26-2023 End: 10-26-2023 Patient encounter procedure 10/26/2023 1:00 PM EDT Office Visit [address] [address] Judie Galvez, MICA MINER-TIRE RECAPPER [address] [place] [address] [facility] Start: 10-12-2023 End: 10-12-2023 Patient encounter procedure 10/12/2023 1:00 PM EST Office Visit [facility] [address] [place] [address] Julianna Osullivan MD 7[address] [place] [address] [facility] Start: 09-30-2023 COVID-19 Vaccine ( season) COVID-19 Vaccine ( season) [facility] Start: 09-18-2023 End: 09-18-2023 Patient encounter procedure 09/18/2023 1:00 PM EST Office Visit [facility] [address] Mercedes [address] [place] [address] Ian Mckeon MD [address] Bal[address] Espino [address] [place] [address] [facility] Start: 09-17-2023 End: 09-17-2023 Patient encounter procedure 09/17/2023 2:00 PM EST Office Visit [facility] [address] [place] [address] Sj Motley MD [address] [address] [facility] Start: 09-15-2023 End: 09-15-2023 Patient encounter procedure 09/15/2023 2:40 PM EST Office Visit [facility] [address] [place] [address] Ian Mckeon MD [address] Espino [address] [address] [facility] Start: 09-01-2023 End: 09-01-2023 Patient encounter procedure 09/01/2023 2:40 PM EST Office Visit [facility] [address] [place] [address] Otf Chan, FERNANDO [address] Esp[address] [address] [facility] Start: 08-31-2023 End: 08-31-2023 Patient encounter procedure 08/31/2023 9:00 AM EST Appointment [facility] [address] [place] [phone] Rohan Palencia MD [address] Quinnmanje[address] Cooley [address] [address] [facility] Start: 08-20-2023 Screening for malignant neoplasm of breast Mammogram [facility] Start: 08-05-2023 End: 08-05-2023 ambulatory 08/05/2023 2:45 PM EST Evaluation [facility] Speech Therapy [address] [place] [phone] Rohan Palencia MD 335 [facility] 2nd [place] [address] Korin Palmer, DIEGO Discharge Disposition: Home [facility] Start: 08-04-2023 End: 08-04-2023 Patient encounter procedure 08/04/2023 2:45 PM EST Office Visit [facility] [address] [place] [address] [place] [address] Brenda Cartagena DO [address] [place] [address] [facility] Start: 2023 Respiratory Syncytial Virus Immunization: Risk, 60-74 Risk, or 75+ (1 - 1-dose 75+ series) Respiratory Syncytial Virus Immunization: Risk, 60-74 Risk, or 75+ (1 - 1-dose 75+ series) [facility] Start: 07-27-2023 End: 07-27-2023 Patient encounter procedure 07/27/2023 1:30 PM EST Office Visit [facility] [address] [place] [phone] Belia Gray, CIPRIANO [address] [place] [address] [facility] Physician [facility] Start: 07-15-2023 End: 07-15-2023 Clinical Support 07/15/2023 1:00 PM EST Clinical Support [facility] Physician [facility] 335 [facility] Medical Office Building, 5th [place] [phone] Brtitany Koenig AuD [address] [place] [address] [facility] Start: 07-07-2023 End: 07-07-2023 Patient encounter procedure 07/07/2023 1:00 PM EST Office Visit [facility] [address] [place] [address] Office [facility], 2nd [place] [address] Sj Motley MD [address] [address] Rohan Palencia MD [address] [place] [address] [facility] Start: 07-06-2023 End: 07-06-2023 Patient encounter procedure 07/06/2023 1:45 PM EST Office Visit [facility] [address] [place] [phone] Belia Gray, CIPRIANO [address] [place] [address] [facility] Start: 07-03-2023 End: 07-03-2023 Patient encounter procedure 07/03/2023 2:30 PM EST Office Visit [facility] [address] [place] [address] [place] [address] Charly Dias, FERNANDO [address] [place] [address] Brenda Cartagena DO [address] [place] [address] [facility] Start: 06-25-2023 End: 06-25-2023 Clinical Support 06/25/2023 3:15 PM EST Clinical Support [facility] [address] [place] [phone] Charly Dias, TIRE RECAPPER 45 [place] [address] [facility] Start: 06-18-2023 Glaucoma screening Diabetic Eye Exam [facility] Start: 06-17-2023 End: 06-17-2023 Clinical Support 06/17/2023 2:00 PM EDT Clinical Support [facility] Physician [facility] 335 [facility] Office Building, [address]th [place] [address] Brittany Koenig, Christine [address] [place] [address] [facility] Physician [facility] Start: 05-27-2023 Hemoglobin A1c measurement A1C [facility] Start: 05-22-2023 End: 05-22-2023 Patient encounter procedure 05/22/2023 1:00 PM EDT Office Visit [facility] [address] [place] [address] Office [place] [phone] Charly Dias, TIRE RECAPPER [address] [place] [phone] Brenda Cartagena DO [address] [place] [address] [facility] Start: 05-15-2023 End: 05-15-2023 Clinical Support 05/15/2023 1:00 PM EDT Clinical Support [facility] Physician [facility] 335 [facility] Office Building, [address] [place] [phone] Brittany Koenig, Christine [address] [place] [address] [facility] Physician [facility] Start: 05-07-2023 End: 05-07-2023 Patient encounter procedure 05/07/2023 2:20 PM EDT Office Visit [facility] [address] [place] [address] Sj Motley MD [address] [address] [facility] Start: 05-01-2023 End: 05-01-2023 Patient encounter procedure 05/01/2023 1:00 PM EDT Office Visit [facility] 335 [facility] [place] [phone] Charly Dias, TIRE RECAPPER 45 [place] [address] Brenda Cartagena DO [address] [place] [address] [facility] Start: 04-17-2023 COVID-19 Vaccine ( season) COVID-19 Vaccine ( season) [facility] Start: 04-17-2023 Influenza vaccination [facility] Start: 04-15-2023 End: 04-15-2023 Clinical Support 04/15/2023 2:30 PM EDT Clinical Support [facility] 335 [facility] Office [facility], 5th [place] [phone] Brittany Koenig AuD [address] [place] [address] [facility] Start: 04-10-2023 End: 04-10-2023 ambulatory 04/10/2023 3:15 PM EDT Treatment [facility] [address] [place] [phone] Sj Motley MD [address] [address] Vic Glynn, PT Discharge Disposition: Home [facility] Start: 04-08-2023 End: 04-08-2023 ambulatory 04/08/2023 2:30 PM EDT Treatment [facility] [address] [place] [phone] Sj Motley MD [address] [address] Madi Castro PTA Discharge Disposition: Home [facility] Start: 04-07-2023 End: 04-07-2023 ambulatory 04/07/2023 3:15 PM EDT Treatment [facility] [address] [place] [phone] Sj Motley MD [facility] [address] [address] Madi Castro PTA [facility] Start: 04-07-2023 End: 04-07-2023 Patient encounter procedure 04/07/2023 2:45 PM EDT Office Visit [facility] [address] [place] [address] Kyrie Watters MD [address] [place] [address] [facility] Start: 04-03-2023 End: 04-03-2023 ambulatory 04/03/2023 2:30 PM EDT Treatment [facility] [address] [place] [phone] Sj Motley MD [address] [address] Madi Castro PTA [facility] Start: 03-31-2023 End: 03-31-2023 ambulatory 03/31/2023 3:15 PM EDT Treatment [facility] [address] [place] [phone] Sj Motley MD [address] [address] Madi Castro PTA [facility] Start: 03-27-2023 End: 03-27-2023 ambulatory 03/27/2023 2:30 PM EDT Treatment [facility] [address] [place] [phone] Sj Motley MD [address] [address] Madi Castro PTA [facility] Start: 03-23-2023 End: 03-23-2023 ambulatory [facility] Start: 03-20-2023 End: 03-20-2023 ambulatory 03/20/2023 3:15 PM EDT Treatment [facility] [address] [place] [phone] Sj Motley MD [address] [address] Vic Glynn, PT [facility] Start: 03-19-2023 End: 03-19-2023 Patient encounter procedure 03/19/2023 3:15 PM EDT Office Visit [facility] [address] [place] [phone] Charly Dias, TIRE RECAPPER [address] [place] [address] [facility] Start: 03-17-2023 End: 03-17-2023 ambulatory 03/17/2023 2:30 PM EDT Treatment [facility] [address] [place] [phone] Sj Motley MD [address] [place] [address] Madi Castro PTA [facility] Start: 03-13-2023 End: 03-13-2023 ambulatory 03/13/2023 3:15 PM EDT Treatment [facility] [address] [place] [phone] Sj Motley MD [address] [place] [address] Madi Castro PTA [facility] Start: 03-10-2023 End: 03-10-2023 ambulatory 03/10/2023 2:30 PM EDT Treatment [facility] [address] [place] [phone] Sj Motley MD [address] [place] [address] Whitney Washington, [facility] Start: 03-06-2023 End: 03-06-2023 ambulatory 03/06/2023 2:30 PM EDT Treatment [facility] [address] [place] [phone] Sj Motley MD [address] [place] [address] Madi Castro PTA [facility] Start: 03-03-2023 End: 03-03-2023 ambulatory 03/03/2023 2:30 PM EDT Treatment [facility] [address] [place] [phone] Sj Motley MD [address] [address] Madi Castro PTA [facility] Start: 02-27-2023 End: 02-27-2023 ambulatory 02/27/2023 3:15 PM EDT Treatment [facility] [address] [place] [phone] Sj Motley MD [address] [address] Madi Castro PTA Discharge Disposition: Home [facility] Start: 02-25-2023 End: 02-25-2023 ambulatory 02/25/2023 2:30 PM EDT Evaluation [facility] [address] [place] [phone] Charly Dias, TIRE RECAPPER [address] [place] [address] Vic Glynn, LORENE Discharge Disposition: Home [facility] Start: 02-24-2023 End: 02-24-2023 Patient encounter procedure 02/24/2023 2:40 PM EDT Office Visit [facility] [address] [place] [address] Otf Chan, TIRE RECAPPER [address] [address] [facility] Start: 02-16-2023 End: 02-16-2023 Patient encounter procedure 02/16/2023 2:15 PM EDT Office Visit [facility] Anne-Marie [place] [address] Mateus Samuels MD 335 [facility] Lenora [address] [place] [address] [facility] Start: 02-12-2023 End: 02-12-2023 Patient encounter procedure [facility] CT Scan Start: 02-10-2023 Fall risk assessment Falls Risk Assessment [facility] Start: 02-06-2023 End: 02-06-2023 Patient encounter procedure 02/06/2023 2:40 PM EDT Appointment [facility] CT Scan [address] [place] [phone] System, Provider Not In [facility] CT Scan Start: 02-05-2023 End: 02-05-2023 Patient encounter procedure 02/05/2023 1:00 PM EDT Office Visit [facility] [address] [place] [address] Sj Motley MD [address] [address] [facility] Start: 02-04-2023 End: 02-04-2023 Clinical Support [facility] Start: 01-26-2023 End: 01-26-2023 Patient encounter procedure 01/26/2023 1:45 PM EDT Office Visit [facility] 335 [facility] [place] [address] Mateus Samuels MD [address] Co[address] [place] [address] [facility] Start: 01-07-2023 End: 01-07-2023 Patient encounter procedure 01/07/2023 2:20 PM EDT Office Visit [facility] [address] [place] [address] Otf Chan, TIRE RECAPPER [address] [facility] [address] [place] [address] [facility] Start: 01-05-2023 End: 01-05-2023 Patient encounter procedure [facility] Start: 12-31-2022 End: 12-31-2022 ambulatory 12/31/2022 1:45 PM EDT [facility] [address] [place] [address] Charly Disa, FERNANDO [address] [place] [phone] Jonathan Solis, PT [facility] Start: 12-26-2022 End: 12-26-2022 ambulatory 12/26/2022 1:45 PM EDT Treatment [facility] [address] [place] [phone] Charly Dias, TIRE RECAPPER [address] [place] [phone] Kely Wolf, ROSA [facility] Start: 12-24-2022 End: 12-24-2022 ambulatory 12/24/2022 1:45 PM EDT Treatment [facility] [address] [place] [address] Charly Dias, FERNANDO [address] [place] [phone] Rubio Glynn, PIPE FINISHING SUPERVISOR [facility] Start: 12-19-2022 End: 12-19-2022 ambulatory 12/19/2022 1:45 PM EDT Treatment [facility] [address] [place] [phone] Charly Dias, FERNANDO 45 [place] [address] Juan Lee PTA [facility] Start: 12-17-2022 End: 12-17-2022 ambulatory [facility] Start: 12-10-2022 Screening for malignant neoplasm of lung Low-dose CT Lung Cancer Screen [facility] Start: 12-10-2022 End: 12-10-2022 ambulatory 12/10/2022 1:45 PM EDT Treatment [facility] [address] [place] [address] Charly Dias, TIRE RECAPPER [address] [place] [place] [phone] Juan Lee PTA Discharge Disposition: Home [facility] Start: 12-05-2022 End: 12-05-2022 ambulatory [facility] Start: 12-02-2022 End: 12-02-2022 ambulatory [facility] Start: 11-28-2022 End: 11-28-2022 ambulatory [facility] Start: 11-25-2022 End: 11-25-2022 Patient encounter procedure [facility] Start: 11-24-2022 End: 11-24-2022 ambulatory 11/24/2022 1:00 PM EDT Treatment [facility] [address] [place] [address] Kely Wolf PTA [facility] Start: 11-20-2022 End: 11-20-2022 ambulatory 11/20/2022 1:45 PM EDT Treatment [facility] [address] [place] [address] Jonathan Solis, PT Discharge Disposition: Home [facility] Start: 11-18-2022 End: 11-18-2022 ambulatory 11/18/2022 3:15 PM EDT Treatment [facility] [address] [place] [address] Charly Dias, TIRE RECAPPER [address] [place] [address] Jonathan Solis, PT Discharge Disposition: Home [facility] Start: 11-12-2022 End: 11-12-2022 ambulatory 11/12/2022 3:15 PM EDT Treatment [facility] [address] [place] [address] Charly Dias, FERNANDO [address] [place] [address] Kely Wolf PTA Discharge Disposition: Home [facility] Start: 10-30-2022 End: 10-30-2022 ambulatory 10/30/2022 Treatment Rehabilitation Charly Dias, FERNANDO 45 [place] [address] Rubio Glynn PTA [facility] Start: 10-28-2022 End: 10-28-2022 ambulatory 10/28/2022 Treatment Rehabilitation Charly Dias, FERNANDO 45 [place] [address] Rubio Glynn PTA [facility] Start: 10-27-2022 End: 10-27-2022 Patient encounter procedure 10/27/2022 Office Visit Otolaryngology Mateus Samuels MD [facility] Quinnmanjeet [address] [address] [facility] Start: 10-24-2022 End: 10-24-2022 Patient encounter procedure 10/24/2022 Office Visit Sports Medicine Jovanna Valencia MD [address] [place] [address] [facility] Start: 10-23-2022 End: 10-23-2022 ambulatory [facility] Start: 10-21-2022 End: 10-21-2022 ambulatory 10/21/2022 Treatment Rehabilitation Charly Dias CNP [address] [place] [address] Rubio Glynn, [facility] Start: 10-17-2022 End: 10-17-2022 ambulatory 10/17/2022 Treatment Rehabilitation Charly Dias CNP [address] [place] [address] Juan Lee, [facility] Start: 10-16-2022 End: 10-16-2022 ambulatory 10/16/2022 Treatment Rehabilitation Charly Dias CNP [address] [place] [address] Rubio Glynn, [facility] Start: 10-14-2022 End: 10-14-2022 ambulatory 10/14/2022 Treatment Rehabilitation Charly Dias CNP [address] [place] [address] Juan Lee [facility] Start: 10-10-2022 End: 10-10-2022 ambulatory 10/10/2022 Treatment Rehabilitation Charly Dias CNP [address] [place] [address] Kely Wolf, [facility] Start: 10-07-2022 End: 10-07-2022 ambulatory 10/07/2022 Treatment Rehabilitation Charly Dias CNP [address] [place] [address] Cheyanne Brian, PT [facility] Start: 10-02-2022 End: 10-02-2022 ambulatory [facility] Start: 10-01-2022 End: 10-01-2023 Anaerobic culture [facility] Comment on above: Expected: 10/01/2022, Expires: Start: 10-01-2022 End: 10-01-2022 Patient encounter procedure 10/01/2022 Office Visit Otolaryngology Syed Canas MD [address] [facility] [place] [address] Mateus Samuels MD 335 [facility] [address] [place] [phone] [facility] Start: 09-29-2022 End: 09-29-2022 Patient encounter procedure 09/29/2022 Office Visit Sports Medicine Charly Dias, TIRE RECAPPER [address] [place] [address] [facility] Start: 09-24-2022 End: 09-24-2022 Clinical Support 09/24/2022 Clinical Support Otolaryngology Brittany Koenig AuD [address] [place], [place] [phone] [facility] Start: 09-23-2022 COVID-19 VACCINE (6 - Pfizer series) COVID-19 VACCINE (6 - Pfizer series) [facility] Start: 09-08-2022 End: 09-08-2022 Patient encounter procedure 09/08/2022 Office Visit Orthopaedics Julianna Osullivan MD [address] [place] [address] [facility] Start: 09-01-2022 End: 09-01-2022 Patient encounter procedure [facility] Start: 08-25-2022 End: 08-25-2022 Patient encounter procedure 08/25/2022 Office Visit Orthopaedics Julianna Osullivan MD [address] [place] [address] [facility] Start: 08-04-2022 End: 08-04-2022 Clinical Support 08/04/2022 Clinical Support Otolaryngology Brittany Koenig, AuD [address] [place] [address] [facility] Start: 07-16-2022 End: 07-16-2022 Clinical Support 07/16/2022 Clinical Support Otolaryngology Brittany Koenig, Christine [address] [place] [address] [facility] Start: 07-09-2022 End: 07-09-2022 Clinical Support 07/09/2022 Clinical Support Otolaryngology Brittany Koenig, Christine [address] [place] [address] [facility] Start: 06-25-2022 Fasting lipid profile LIPID SCREENING [facility] Start: 06-25-2022 Lipid panel LIPID SCREENING [facility] Start: 06-23-2022 End: 06-23-2022 Clinical Support 06/23/2022 Clinical Support Otolaryngology Brittany Koenig, AuD [address] [place] [address] [facility] Start: 05-28-2022 End: 05-28-2022 Clinical Support 05/28/2022 Clinical Support Otolaryngology Brittany Koenig, AuD [address] [place] [address] [facility] Start: 04-18-2022 End: 04-18-2022 Patient encounter procedure 04/18/2022 Office Visit Jovanna Francis MD [address] [place] [address] Arrived [facility] Comment on above: Arrived Start: 04-17-2022 Influenza vaccination Sequential Influenza Vaccine (#1) [facility] Start: 04-06-2022 Hemoglobin A1c measurement A1C [facility] Start: 03-28-2022 End: 03-28-2022 Follow-up encounter 03/28/2022 Follow-Up Jovanna Francis MD [address] [place] [address] [facility] Start: 02-26-2022 Hemoglobin A1c measurement A1C [facility] Start: 01-31-2022 [facility] Work Phone: Start: 01-24-2022 End: 01-24-2022 Follow-up encounter 01/24/2022 Follow-Up Jovanna Francis MD [address] [place] [address] [facility] Start: 01-11-2022 COVID-19 Vaccine (5 - Booster for Pfizer series) COVID-19 Vaccine (5 - Booster for Pfizer series) [facility] Start: 12-13-2021 End: 12-13-2021 Follow-up encounter 12/13/2021 Follow-Up Jovanna Francis MD [address] [place] [address] [facility] Start: 11-08-2021 End: 11-08-2021 Follow-up encounter 11/08/2021 Follow-Up Jovanna Francis MD 45 [facility] [place] [address] [facility] Start: 11-08-2021 End: 11-08-2021 Home visit 11/08/2021 Home Care Visit Home Health Services Harpal Perez, PT [facility] Start: 11-07-2021 End: 11-07-2021 Patient encounter procedure 11/07/2021 Appointment Home Health Services Natalie Hunt RN [facility] Start: 11-07-2021 End: 11-07-2021 Home visit 11/07/2021 Home Care Visit Home Health Services Harpal Perez, PT [facility] Start: 11-07-2021 End: 11-07-2021 Patient encounter procedure 11/07/2021 Appointment Home Health Services Natalie Hunt RN [facility] Start: 11-05-2021 End: 11-05-2021 Home visit 11/05/2021 Home Care Visit Home Health Services Natalie Hunt RN [facility] Start: 11-04-2021 End: 11-05-2021 Home visit [facility] Start: 11-01-2021 End: 11-01-2021 Home visit 11/01/2021 Home Care Visit Home Health Services Natalie Hunt RN [facility] Start: 10-30-2021 End: 10-30-2021 Home visit [facility] Start: 10-30-2021 End: 10-30-2021 Home visit 10/30/2021 Home Care Visit Home Health Services Nir Bryant PTA [facility] Start: 10-28-2021 End: 10-28-2021 Home visit 10/28/2021 Home Care Visit Home Health Services Nir Bryant PTA [facility] Start: 10-27-2021 End: 10-27-2021 Home visit 10/27/2021 Home Care Visit Home Health Services Natalie Hunt RN [facility] Start: 10-24-2021 End: 10-24-2021 Home visit 10/24/2021 Home Care Visit Home Health Services Harpal Perez, PT [facility] Start: 10-21-2021 End: 10-21-2021 Admission to same day surgery center 10/21/2021 Surgery Jovanna Valencia MD [address] [place], [place] [address] [address] Left Total Hip Replacement Robotic [facility] Comment on above: Left Total Hip Replacement Robotic Start: 10-21-2021 End: 10-21-2021 ARTHROPLASTY HIP ROBOTIC ARTHROPLASTY HIP ROBOTIC Primary osteoarthritis of left hip AVN (avascular necrosis of bone) ([facility]) 10/21/2021 7:08 AM EST [facility] Main OR Start: 10-21-2021 Subsequent hospital visit by physician 10/21/2021 Hospital Encounter Jovanna Valencia MD [address] [place] [address] [facility] Start: 10-18-2021 End: 10-18-2021 Patient encounter procedure 10/18/2021 Surgical Consult Sports Medicine Jovanna Valencia MD [address] [facility] [place] [address] [facility] Start: 10-17-2021 End: 10-17-2021 Patient encounter procedure 10/17/2021 Office Visit Lab Jovanna Valencia MD [address] [place] [address] [facility] Start: 09-27-2021 End: 09-27-2021 Follow-up encounter 09/27/2021 Follow-Up Sports Medicine Jovanna Valencia MD [address] [facility] [place] [address] [facility] Start: 09-25-2021 Patient referral [facility] Work Phone: Start: 09-11-2021 End: 09-11-2021 Admission to same day surgery center 09/11/2021 Surgery Jovanna Valencia MD [address] [facility] [place] [address] Left Total Hip Replacement Robotic [facility] Comment on above: Left Total Hip Replacement Robotic Start: 09-11-2021 End: 09-11-2021 ARTHROPLASTY HIP ROBOTIC ARTHROPLASTY HIP ROBOTIC Primary osteoarthritis of left hip AVN (avascular necrosis of bone) (HCC) 09/11/2021 2:20 PM EST [facility] Main OR Start: 09-11-2021 Subsequent hospital visit by physician 09/11/2021 Hospital Encounter Jovanna Valencia MD [address] [place] [address] [facility] Start: 04-17-2019 Influenza vaccination INFLUENZA VACCINE (#1) [facility] Start: 01-19-2019 End: 01-19-2019 Ambulatory 01/19/2019 Office Visit Orthopaedics Julianna Osullivan MD [address] [place] [address] [phone] [facility] Start: 09-22-2018 Thyroid stimulating hormone measurement TSH [facility] Start: 09-22-2018 Thyrotropin Qn TSH [facility] Work Phone: Start: 07-23-2018 End: 07-23-2018 Ambulatory 07/23/2018 Office Visit Orthopaedics Rohan Rausch MD [address] [place] [address] [phone] [facility] Start: 07-14-2018 End: 07-14-2018 Ambulatory 07/14/2018 Office Visit Orthopaedics Julianna Osullivan MD [address] [place] [address] [phone] [facility] Start: 06-25-2018 Screening for osteoporosis DEXA SCAN DISCUSSION [facility] Start: 04-17-2018 Influenza vaccination [facility] Start: 2013 Fall risk assessment Falls Risk Assessment [facility] Start: 2013 Pneumococcal vaccination [facility] Start: 2008 Zoster vaccine hzv live for subcutaneous use ZOSTER VACCINE [facility] Start: 1998 Colonoscopy COLON CANCER SCREENING DISCUSSION [facility] Start: 1998 Protein mass conc COLON CANCER SCREENING DISCUSSION [facility] Work Phone: Start: 1998 Screening for malignant neoplasm of colon [facility] Start: 1998 Zoster vaccine hzv live for subcutaneous use ZOSTER (SHINGLES) VACCINE (1 of 2) [facility] Start: 1993 Colonoscopy COLORECTAL CANCER SCREENING DISCUSSION [facility] Start: 1993 Screening for malignant neoplasm of colon COLORECTAL CANCER SCREENING DISCUSSION [facility] Start: 1988 Protein mass conc MAMMOGRAM SCREENING DISCUSSION [facility] Work Phone: Start: 1988 Screening for malignant neoplasm of breast [facility] Start: 1988 Screening mammography MAMMOGRAM SCREENING DISCUSSION [facility] Start: 1969 Screening for malignant neoplasm of cervix [facility] Start: 1967 Third diphtheria, tetanus and acellular pertussis (DTaP) vaccination TDAP (ADULT) [facility] Start: 1966 Hepatitis C screening Hepatitis C Screening [facility] Start: 1966 Tetanus vaccination TETANUS [facility] Start: 1958 Albumin DL <= 20 mg/L mass conc (U) URINE MICROALBUMIN [facility] Start: 1958 Diabetic foot examination (regime/therapy) [facility] Start: 1958 Glaucoma screening [facility] Start: 1958 Microalbumin measurement, urine, quantitative Urine Microalbumin [facility] Start: 1958 Ophthalmic examination and evaluation OPHTHALMOLOGY EXAM [facility] Start: 1958 Urine screening for protein Urine Microalbumin [facility] Start: 1954 Pneumococcal vaccination PNEUMOCOCCAL VACCINE SERIES (1 - PCV) [facility] Start: 1951 History and physical examination, annual for health maintenance Wellness Visit [facility] Start: 1951 Medicare Wellness Visit Medicare Wellness Visit [facility] Start: 1948 Hemoglobin A1c measurement A1C [facility] Start: 1948 Hemoglobin A1c/Hemoglobin.total mass fraction (Bld) HEMOGLOBIN A1C [facility] Start: 1948 Hepatitis C antibody, confirmatory test HEPATITIS C VIRUS SCREENING [facility] Start: 1948 HEPATITIS C SCREENING HEPATITIS C SCREENING [facility] Start: 1948 Hepatitis C screening HEPATITIS C VIRUS SCREENING [facility] Start: 1948 Physical therapy management PT Plan of Care [facility] Start: 1948 Screening colonoscopy COLONOSCOPY [facility] Start: 1948 Screening for malignant neoplasm of colon [facility] Start: 1948 Screening for osteoporosis DEXA SCAN [facility] Start: 1948 Tetanus vaccination TETANUS EVERY 10 YR [facility] End: 11-29-2023 6-minute walk test 6 minute walk PFT Routine Chronic obstructive pulmonary disease, unspecified COPD type (HCC) 1 Occurrences starting 11/28/2022 until 11/29/2023 [facility] Comment on above: 1 Occurrences starting 11/28/2022 until 11/29/2023 End: 10-26-2024 Bacteria identified in Sputum by Aerobe culture Sputum Aerobic Culture Microbiology Routine Once for 1 Occurrences starting 10/26/2024 until 10/26/2024 [facility] Work Phone: Comment on above: Once for 1 Occurrences starting 10/27/19 until 10/26/2024 End: 09-10-2022 Basic metabolic 2000 panel - Serum or Plasma Basic metabolic panel Lab Routine Primary osteoarthritis of left hip AVN (avascular necrosis of bone) (HCC) 1 Occurrences starting 09/10/2021 until 09/10/2022 [facility] Comment on above: 1 Occurrences starting 09/10/2021 until 09/10/2022 End: 07-07-2024 Cardiac event recording Cardiac event monitor Cardiac Services Routine Cardiac arrhythmia, unspecified cardiac arrhythmia type Paroxysmal atrial fibrillation (HCC) 1 Occurrences starting 05/07/2023 until 07/07/2024 [facility] Work Phone: Comment on above: 1 Occurrences starting 05/07/2023 until 07/07/2024 End: 09-10-2022 Complete blood count with white cell differential, manual CBC and differential Lab Routine Primary osteoarthritis of left hip AVN (avascular necrosis of bone) (HCC) Hypertension, unspecified type 1 Occurrences starting 09/10/2021 until 09/10/2022 [facility] Work Phone: Comment on above: 1 Occurrences starting 09/10/2021 until 09/10/2022 End: 11-29-2023 Complete PFT with Pre and Post Bronchodilator Complete PFT with Pre and Post Bronchodilator PFT Routine Chronic obstructive pulmonary disease, unspecified COPD type ([facility]) 1 Occurrences starting 11/28/2022 until 11/29/2023 [facility] Work Phone: Comment on above: 1 Occurrences starting 11/28/2022 until 11/29/2023 End: 11-26-2023 Comprehensive metabolic 2000 panel - Serum or Plasma Comprehensive Metabolic Panel Lab Routine Controlled type 2 diabetes mellitus without complication, without long-term current use of insulin ([facility]) 1 Occurrences starting 11/25/2022 until 11/26/2023 [facility] Comment on above: 1 Occurrences starting 11/25/2022 until 11/26/2023 Comprehensive metabo lic 2000 panel - Serum or Plasma Comprehensive Metabolic Panel Lab Routine Controlled type 2 diabetes mellitus without complication, without long-term current use of insulin ([facility]) 11/25/2022 3:36 PM EDT [facility] End: 09-17-2024 Comprehensive metabolic 2000 panel - Serum or Plasma Comprehensive Metabolic Panel Lab Routine Controlled type 2 diabetes mellitus without complication, without long-term current use of insulin ([facility]) 1 Occurrences starting 09/17/2023 until 09/17/2024 [facility] Comment on above: 1 Occurrences starting 09/17/2023 until 09/17/2024 End: 12-24-2024 Comprehensive metabolic 2000 panel - Serum or Plasma Comprehensive Metabolic Panel Lab Routine Prediabetes 1 Occurrences starting 12/25/2023 until 12/24/2024 [facility] Comment on above: 1 Occurrences starting 12/25/2023 until 12/24/2024 End: 05-15-2023 CT Sinus Stealth Without Contrast CT Sinus Stealth Without Contrast Imaging Routine Chronic maxillary sinusitis Fungal sinusitis 1 Occurrences starting 05/15/2022 until 05/15/2023 [facility] Work Phone: Comment on above: 1 Occurrences starting 05/15/2022 until 05/15/2023 End: 12-24-2024 DXA Skeletal system.axial Views for bone density XR Bone Density DEXA Axial Imaging Routine Osteoporosis, unspecified osteoporosis type, unspecified pathological fracture presence 1 Occurrences starting 12/25/2023 until 12/24/2024 [facility] Comment on above: 1 Occurrences starting 12/25/2023 until 12/24/2024 End: 12-31-2025 Echocardiography Echocardiogram complete Echocardiography Routine Pre-operative cardiovascular examination 1 Occurrences starting 10/31/2024 until 12/31/2025 [facility] Work Phone: Comment on above: 1 Occurrences starting 10/31/2024 until 12/31/2025 End: 09-10-2022 Hemoglobin A1c/Hemoglobin.total in Blood Hemoglobin A1c Lab Routine Primary osteoarthritis of left hip AVN (avascular necrosis of bone) ([facility]) Controlled type 2 diabetes mellitus without complication, without long-term current use of insulin ([facility]) 1 Occurrences starting 09/10/2021 until 09/10/2022 [facility] Comment on above: 1 Occurrences starting 09/10/2021 until 09/10/2022 End: 11-26-2023 Hemoglobin A1c/Hemoglobin.total in Blood Hemoglobin A1c Lab Routine Controlled type 2 diabetes mellitus without complication, without long-term current use of insulin ([facility]) 1 Occurrences starting 11/25/2022 until 11/26/2023 [facility] Comment on above: 1 Occurrences starting 11/25/2022 until 11/26/2023 Hemoglobin A1c/Hemoglobin.total in Blood Hemoglobin A1c Lab Routine Controlled type 2 diabetes mellitus without complication, without long-term current use of insulin ([facility]) 11/25/2022 3:36 PM EDT [facility] End: 09-17-2024 Hemoglobin A1c/Hemoglobin.total in Blood Hemoglobin A1c Lab Routine Controlled type 2 diabetes mellitus without complication, without long-term current use of insulin ([facility]) 1 Occurrences starting 09/17/2023 until 09/17/2024 [facility] Comment on above: 1 Occurrences starting 09/17/2023 until 09/17/2024 End: 12-24-2024 Hemoglobin A1c/Hemoglobin.total in Blood Hemoglobin A1c Lab Routine Prediabetes 1 Occurrences starting 12/25/2023 until 12/24/2024 [facility] Comment on above: 1 Occurrences starting 12/25/2023 until 12/24/2024 Zamudio facetectomy & foramotomy 1 segment cervical LAMINECTOMY DECOMPRESSION POSTERIOR CERVICAL WITH FUSION NAVIGATIONAL 4 OR MORE LEVELS Cervical spondylosis with myelopathy [facility] [place] End: 11-26-2023 Lipid 1996 panel - Serum or Plasma Lipid Panel Lab Routine Controlled type 2 diabetes mellitus without complication, without long-term current use of insulin ([facility]) 1 Occurrences starting 11/25/2022 until 11/26/2023 [facility] Comment on above: 1 Occurrences starting 11/25/2022 until 11/26/2023 Lipid 1996 panel - S jose or Plasma Lipid Panel Lab Routine Controlled type 2 diabetes mellitus without complication, without long-term current use of insulin ([facility]) 11/25/2022 3:36 PM EDT [facility] End: 09-17-2024 Lipid 1996 panel - Serum or Plasma Lipid Panel Lab Routine Controlled type 2 diabetes mellitus without complication, without long-term current use of insulin ([facility]) 1 Occurrences starting 09/17/2023 until 09/17/2024 [facility] Comment on above: 1 Occurrences starting 09/17/2023 until 09/17/2024 End: 12-24-2024 Lipid 1996 panel - Serum or Plasma Lipid Panel Lab Routine Prediabetes Abnormal finding of blood chemistry, unspecified 1 Occurrences starting 12/25/2023 until 12/24/2024 [facility] Comment on above: 1 Occurrences starting 12/25/2023 until 12/24/2024 End: 09-10-2022 Methicillin resistant Staphylococcus aureus [Presence] in Unspecified specimen by Organism specific culture MRSA Culture Microbiology Routine Primary osteoarthritis of left hip AVN (avascular necrosis of bone) ([facility]) 1 Occurrences starting 09/10/2021 until 09/10/2022 [facility] Comment on above: 1 Occurrences starting 09/10/2021 until 09/10/2022 End: 11-26-2023 Microalbumin measurement, urine, quantitative Microalbumin/Creatinine Ratio, UR Random Lab Routine Controlled type 2 diabetes mellitus without complication, without long-term current use of insulin ([facility]) 1 Occurrences starting 11/25/2022 until 11/26/2023 [facility] Comment on above: 1 Occurrences starting 11/25/2022 until 11/26/2023 End: 09-17-2024 Microalbumin measurement, urine, quantitative Microalbumin/Creatinine Ratio, UR Random Lab Routine Controlled type 2 diabetes mellitus without complication, without long-term current use of insulin ([facility]) 1 Occurrences starting 09/17/2023 until 09/17/2024 [facility] Comment on above: 1 Occurrences starting 09/17/2023 until 09/17/2024 End: 12-24-2024 Microalbumin measurement, urine, quantitative Microalbumin/Creatinine Ratio, UR Random Lab Routine Prediabetes 1 Occurrences starting 12/25/2023 until 12/24/2024 [facility] Comment on above: 1 Occurrences starting 12/25/2023 until 12/24/2024 End: 08-03-2024 MR Shoulder - left WO contrast MR Shoulder Left Without Contrast Imaging Routine Shoulder impingement syndrome, left 1 Occurrences starting 02/02/2024 until 08/03/2024 [facility] Work Phone: Comment on above: 1 Occurrences starting 02/02/2024 until 08/03/2024 Nasopharyngeal Culture Nasopharyngeal Cul ture [facility] Work Phone: Patient referral [facility] Work Phone: End: 08-08-2024 RF videography Hypopharynx and Esophagus Views W liquid and paste contrast PO during swallowing XR Modifed Barium Swallow Imaging Routine Dysphagia, unspecified type 1 Occurrences starting 08/08/2023 until 08/08/2024 [facility] Work Phone: Comment on above: 1 Occurrences starting 08/08/2023 until 08/08/2024 End: 10-14-2022 SARS-CoV-2 (COVID-19) RdRp gene [Presence] in Respiratory specimen by TRISTON with probe detection COVID-19, Molecular Microbiology Routine Exposure to SARS-associated coronavirus 1 Occurrences starting 10/14/2021 until 10/14/2022 [facility] Work Phone: Comment on above: 1 Occurrences starting 10/14/2021 until 10/14/2022 Skeletal X-ray of pe lvis and hip XR HIP WITH PELVIS LEFT Routine Left hip pain 07/23/2018 1:39 PM EST [facility] Work Phone: End: 11-26-2023 Thyrotropin [Units/volume] in Serum or Plasma TSH with Reflex Free T4 Lab Routine Hypothyroidism (acquired) 1 Occurrences starting 11/25/2022 until 11/26/2023 [facility] Work Phone: Comment on above: 1 Occurrences starting 11/25/2022 until 11/26/2023 Thyrotropin [Units/volume] in Serum or Plasma TSH with Reflex Free T4 Lab Routine Hypothyroidism (acquired) 11/25/2022 3:36 PM EDT [facility] End: 09-17-2024 Thyrotropin [Units/volume] in Serum or Plasma TSH with Reflex Free T4 Lab Routine Controlled type 2 diabetes mellitus without complication, without long-term current use of insulin (HCC) 1 Occurrences starting 09/17/2023 until 09/17/2024 [facility] Work Phone: Comment on above: 1 Occurrences starting 09/17/2023 until 09/17/2024 End: 12-24-2024 Thyrotropin [Units/volume] in Serum or Plasma TSH with Reflex Free T4 Lab Routine Prediabetes 1 Occurrences starting 12/25/2023 until 12/24/2024 [facility] Comment on above: 1 Occurrences starting 12/25/2023 until 12/24/2024 End: 10-01-2023 Upper Respiratory Aerobic Culture Upper Respiratory Aerobic Culture Microbiology Routine Chronic maxillary sinusitis 1 Occurrences starting 10/01/2022 until 10/01/2023 [facility] Work Phone: Comment on above: 1 Occurrences starting 10/01/2022 until 10/01/2023 Upper Respiratory Ae robic Culture Upper Respiratory Aerobic Culture Microbiology Routine Chronic maxillary sinusitis 10/01/2022 2:41 PM EST [facility] End: 11-26-2023 Vitamin D, 25-hydroxy measurement Vitamin D, Total, 25-OH Lab Routine Osteoporosis, unspecified osteoporosis type, unspecified pathological fracture presence 1 Occurrences starting 11/25/2022 until 11/26/2023 [facility] Comment on above: 1 Occurrences starting 11/25/2022 until 11/26/2023 Vitamin D, 25-hydrox y measurement Vitamin D, Total, 25-OH Lab Routine Osteoporosis, unspecified osteoporosis type, unspecified pathological fracture presence 11/25/2022 3:36 PM EDT [facility] Wound Anaerobic Culture Wound An aerobic Culture Microbiology Routine Chronic maxillary sinusitis 10/01/2022 2:40 PM EST [facility] End: 10-02-2023 Wound Anaerobic Culture Wound Anaerobic Culture Microbiology Routine Chronic maxillary sinusitis 1 Occurrences starting 10/02/2022 until 10/02/2023 [facility] Comment on above: 1 Occurrences starting 10/02/2022 until 10/02/2023 End: 07-03-2024 XR Hand - bilateral PA and Lateral and Ball Catcher XR Hands Bilateral Ball Catchers 2 Views Imaging Routine Polyarthralgia 1 Occurrences starting 07/03/2023 until 07/03/2024 [facility] Work Phone: Comment on above: 1 Occurrences starting 07/03/2023 until 07/03/2024 XR Hand - bilateral PA and Lateral and Ball Catcher XR Hands Bilateral Ball Catchers 2 Views Imaging Routine Polyarthralgia 07/03/2023 3:05 PM EST [facility] End: 12-24-2024 XR Shoulder - left 2 Views XR Shoulder Left 2+ Views (Standard) Imaging Routine Acute pain of left shoulder 1 Occurrences starting 12/25/2023 until 12/24/2024 [facility] Work Phone: Comment on above: 1 Occurrences starting 12/25/2023 until 12/24/2024 Immunizations Immunization Date Immunization Notes Care Provider [facility] 06-02-2024 influenza, high dose seasonal, preservative-free Kelly Glover RN [facility] 05-04-2023 influenza virus vacc ine, unspecified formulation Charly Dias CNP Work Phone: [facility] 05-08-2022 influenza virus vacc ine, unspecified formulation Julianna Osullivan MD Work Phone: [facility] 06-25-2021 pneumococcal polysaccharide vaccine, [address] Harpal Gonzalez Work Phone: [facility] Work Phone: 06-25-2021 pneumococcal vaccine , unspecified formulation Dr. Harpal Gonzalze Work Phone: [facility] Work Phone: 04-15-2020 pneumococcal polysaccharide vaccine, [address] Harpal Gonzalez Work Phone: [facility] Work Phone: 04-08-2020 Diptheria,Tetanus,Pe rtus sis Vaccine Dr. Harpal Gonzalez Work Phone: [facility] Work Phone: 03-03-[address] Harpal Gonzalez Work Phone: [facility] Work Phone: 04-15-[address] Harpal Gonzalez Work Phone: [facility] Work Phone: 04-15-2019 pneumococcal conjuga te vaccine, [address] Harpal Gonzalez Work Phone: [facility] Work Phone: 07-06-2018 influenza virus vacc ine, unspecified formulation [facility] 04-22-2014 influenza virus vacc ine, unspecified formulation Judie Galvez [facility] Work Phone: Payers Date Payer Category Payer Medicare [id number] 2024 Medicare HMO [employer] P [employer] (HMO) [id number] 2024 Medicare [id number] 2023 Medicare (Managed Care) [facility] MEDICARE [id number] 2023 Unknown [id number] 2023 Unknown [id number] 2023 Self-pay [id number] 2017 Medicaid MEDICAID MEDICAI D xxxxxxxxxxxx 2017-Present [id number] 2016 Medicaid [id number] 2016 Medicaid [id number] 2016 Medicaid [id number] 1996 Medicare 1996 Medicare MEDICARE MEDICAR E A AND B xxxxxxxxxxx 1996-Present [place] xxxxxxxxxxx [id number] 1996 Medicare [id number] 1948 Unknown [id number] 1948 Unknown [id number] 1948 Unknown [id number] 1948 Unknown [id number] 1948 Unknown [id number] 1948 Unknown [id number] 2.16.840.1.869114.3.579.2. 983 1950 Unknown [id number] 2.16.840.1.678186.3.579.2. 983 1950 Unknown [id number] 2.16.840.1.673704.3.579.2. 983 1950 Unknown [id number] 2.16.840.1.981184.3.579.2. 983 1950 Unknown [id number] 2.16.840.1.080615.3.579.2. 983 1950 Unknown [id number] 2.16.840.1.261727.3.579.2. 902 1950 Unknown [id number] 2.16.840.1.863486.3.579.2. 902 1948 Unknown [id number] 2.16.840.1.918868.3.579.2 90 1948 Unknown [id number] 2.16.840.1.807278.3.579.2. 902 1948 Unknown [id number] 2.16.840.1.945880.3.579.2. 90 1948 Unknown [id number] 2.16.840.1.822466.3.579.2. 902 1948 Unknown [id number] 2.16.840.1.640298.3.579.2 902 1948 Unknown [id number] 2.16.840.1.433672.3.579.2. 902 1948 Unknown [id number] 2.16.840.1.649958.3.579.2. 90 1948 Unknown [id number] 2.16.840.1.284022.3.579.2. 902 1948 Unknown [id number] 2.16.840.1.052867.3.579.2 90 1948 Unknown [id number] 2.16.840.1.780937.3.579.2. 90 1948 Unknown [id number] 2.16.840.1.988487.3.579.2. 3 1948 Unknown [id number] 2.16.840.1.876666.3.579.2. 1948 Unknown [id number] 2.16.840.1.121388.3.579.2. 1948 Unknown [id number] 2.16.840.1.213198.3.579.2 1948 Unknown [id number] 2.16.840.1.595971.3.579.2 1948 Unknown [id number] 2.840.1.169824.3.579.2 1948 Unknown [id number] 2.840.1.968046.3.579.2 1948 Unknown [id number] 2.840.1.133114.3.579.2 1948 Unknown [id number] 2.840.1.995853.3.579.2 1948 Unknown [id number] 2.840.1.233927.3.579.2 1948 Unknown [id number] 2.840.1.863441.3.579.2 1948 Unknown [id number] 2.16840.1.016231.3.579.2 1948 Unknown [id number] 2.16840.1.499962.3.579.2 1948 Unknown [id number] 2.16840.1.404136.3.579.2 1948 Unknown [id number] 2.16840.1.387370.3.579.2 1948 Unknown [id number] 2.16840.1.095574.3.579.2. 903 1948 Unknown [id number] 2.16.840.1.716932.3.579.2. 903 1948 Unknown [id number] 2.16.840.1.017733.3.579.2. 903 1948 Unknown [id number] 2.16840.1.919490.3.579.2. 903 1948 Unknown [id number] 2.16.840.1.089378.3.579.2. 903 1948 Unknown [id number] 2.16840.1.659831.3.579.2. 90 1948 Unknown [id number] 2.16840.1.972136.3.579.2. 903 1948 Unknown [id number] 2.840.1.845634.3.579.2. 90 Unknown [id number] 2..840.1.023559.3.579.2. 462 Social History Date Type Detail Facility Start: 03-24-2018 End: 08-25-2022 Tobacco smoking status NHIS Current every day smoker [facility] Start: 03-24-2018 End: 12-04-2024 Cigarettes smoked current (pack per day) - Reported [facility] Start: 1950 Sex Assigned At Not on file [facility] Start: 07-23-2018 End: 12-04-2024 Alcohol intake No [facility] Start: 04-17-2016 End: 06-14-2024 Tobacco use and exposure Smokeless tobacco non-user [facility] Start: 07-23-2021 End: 02-01-2025 Alcohol intake Current non-drinker of alcohol (finding) [facility] Start: 04-17-2016 End: 04-18-2022 Tobacco Comment Cigarettes [facility] Start: 10-11-2021 End: 01-05-2023 Exposure to SARS-CoV-2 (event) Not sure [facility] Start: 09-25-2021 End: 01-27-2022 Tobacco smoking status ORIS Unknown if ever smoked [facility] Work Phone: Start: 1950 Sex Assigned At Female [facility] Work Phone: Start: 08-17-1979 End: 09-17-2021 History of tobacco use Cigarette Smoker [facility] Start: 05-15-2022 End: 06-14-2024 Tobacco smoking status NHIS Ex-smoker [facility] Start: 08-17-1979 End: 09-17-2021 History of tobacco use Current smoker [facility] Start: 03-20-2017 Gender identity Identifies as female gender (finding) [facility] Start: 07-16-2021 Sexual orientation Heterosexual (finding) [facility] History of tobacco use [facility] Adult Depression Screening Assessment 19 [facility] Has the Global C[employer] ga s, oil, or water Knowrom threatened to shut off services in your home in past 12Mo No [facility] ([facility]We) worried wheth er (my/our) food would run out before (I/we) got money to buy more. Never true [facility] How hard is it for y ou to pay for the very basics like food, housing, medical care, and heating Not very hard [facility] Has the Global [employer] ga s, oil, or water Knowrom threatened to shut off services in your home in past 12Mo Yes [facility] Medical Equipment Procedure Code Equipment Code Equipment Origin al Text Equipment Identifier Dates System 23mm +0 V 40 Modular Hip Buddhist - [id number] , [id number] FDA Start: 10-21-2021 Shell Szc 46mm 3 hl Clusterhole [place] Psl Trident Ii - [id number] [id number] , [id number] FDA Start: 10-21-2021 Liner 36mm C Amanda r Mdm - [id number] ()[id number] [id number] , [id number] FDA Start: 10-21-2021 Stem 19 X 155mm Conical Mod Distal Buddhist - [id number] ()[id number] [id number], [id number] FDA Start: 10-21-2021 Mdm X3 Insert 22 .2 36c [id number] [id number] , [id number] FDA Start: 10-21-2021 Head 22mm/+0 Fem V40 Cocr Lfit - [id number] [id number] , [id number] FDA Start: 10-21-2021 Goals Date Patient Goal Desired Activity /State Clinical Notes 07-19-2021 to 03-06-2025 Miriam Cerna, FERNANDO - 02/01/2025 11:45 AM Luis Eduardo Tobin MD - 01/03/2025 3:00 PM Aylin Pham RN - 12/13/2024 1:41 PM Emperatriz Smith - 12/13/2024 11:50 AM EDT Note Date & Type Note Facility 03-06-2025 Note [facility] 03-05-2025 [facility] 03-04-2025 [facility] 03-03-2025 [facility] 03-03-2025 [facility] 03-02-2025 [facility] 03-02-2025 [facility] 03-02-2025 [facility] 03-01-2025 Note [facility] 03-01-2025 Note [facility] 03-01-2025 Note [facility] 02-28-2025 [facility] 02-28-2025 [facility] 02-28-2025 [facility] 02-27-2025 [facility] 02-27-2025 [facility] 02-27-2025 [facility] 02-26-20[facility] 02-26-20[facility] 02-26-20[facility] 02[facility]25-20[facility] 02-25-2025 [facility] 02-24-2025 Note [facility] 02-24-2025 Note [facility] 02-22-2025 Note [facility] 02-01-2025 Note Behavioral Health Ou tpatient Progress Note Patient Name: Elizabeth Cisneros MR #: [id number] : 1950 Chief Complaint: Medication and symptom review/management Interval History: 02/01/2025 Patient presents for follow up exam. She is seated in a wheelchair today. She is accompanied by staff from the skilled care facility she is now residing in. States she is tolerating the medication well overall, but she is having a hard time trusting in others for her care and not in control of her own care. She is struggling with the care she is provided at times and things she sees going on around her. She is angry when she asks for something a certain way and is facing a lot of disagreement that she is wrong. She is noting her mood becomes elevated at times due to frustration of her health decline and no longer feeling independent. Denies any side effects of the medication. Denies any Suicidal Ideation or Homicidal Ideation Current stressors: she has had some weakness and ongoing health issues following recent surgeries. She is now living at [facility] in [place] for skilled care and rehabilitation following. Previous Visit: 10/31/2024 Patient presents for follow up exam. I discussed risks, benefits and alternatives of a telephone visit telemedicine consultation with the patient (and any accompanying persons) including the risks that the patient's personal health details and medical records will be discussed over real-time, synchronous, interactive audio technology, the visit will not be recorded without the express consent of both the provider and the patient, and that there are inherent diagnostic limitations compared to [id number] evaluations. We elected to proceed with the telephone visit telemedicine consultation. Patient is engaged and cooperative during conversation. States she is tolerating the medication well. Symptoms are stable and have not worsened. She was recently admitted with pneumonia. Doing better since discharge. She will have upcoming cervical laminectomy with fusion surgery sometime in November. Denies any recent mood changes or fluctuations. Denies any new or ongoing complaints/concerns. Denies any side effects of the medication. Denies any Suicidal Ideation or Homicidal Ideation Current stressors: recent admission and upcoming surgery Current Medications: Medications Prior to Visit[1] Psychiatric ROS: Negative unless noted above. Review of Systems: Constitutional: Denies fever, chills, diaphoresis, malaise Eyes: Denies blurred vision, double vision ENT: Denies nasal congestion, sore throat Neurological: Denies headache, photophobia, weakness, numbness CVS: Denies chest pain or palpitations Respiratory: Denies dyspnea or cough Musculoskeletal: pain to the lower spine area. She is seated in wheelchair due to weakness and limited ROM GI: Denies nausea, vomiting, constipation, or diarrhea Integumentary: Denies itching or rash Endocrine: Denies heat/cold intolerance or weight loss/weight gain Physical Exam: General: Alert and oriented to person, place, and time. Is in no acute distress. Well developed, hydrated, and nourished. Appears stated age. Skin: Appropriate color for ethnicity. Head: The head is normocephalic and atraumatic. Eyes: PERRLA Respiratory: Respirations are non labored. Musculoskeletal: seated in wheelchair limited ROM Mental Status Evaluation: General Appearance & Behavior: age appropriate, pleasant, cooperative, good eye contact Grooming & Hygiene: neat and clean Psychomotor Activity: gait disturbance Speech: normal rate, rhythym, volume, and spontaneity Flow of Thought: linear and goal directed Thought Associations: Intact Content of Thought: No evidence of suicidal ideations/homicidal ideations/psychosis Mood: Frustrated, irritable Affect: irritable Insight: intact Judgment: fair Orientation: alert and oriented to person, place, time, and circumstances Memory: intact recent and remote Concentration: intact Language: fluent Fund of Knowledge: estimated average intelligence Assessment and Plan/Recommendations Diagnoses/Treatment Plan: Diagnoses and all orders for this visit: Anxiety - desvenlafaxine succinate (PRISTIQ) 100 MG 24 hr tablet; Take 1 (one) tablet (100 mg total) by mouth daily . Moderate major depression (HCC) - mirtazapine (REMERON) 45 MG tablet; Take 1 (one) tablet (45 mg total) by mouth nightly . - desvenlafaxine succinate (PRISTIQ) 100 MG 24 hr tablet; Take 1 (one) tablet (100 mg total) by mouth daily . Pharmacological management: Alternative medication plans were discussed with the patient/guardian. All side effects or potential adverse effects were discussed with the patient/guardian. Parent/guardian consented to medication initiation or continuation of the following: Education: Continue medication as prescribed. Please report any side effec (more content not included)... [facility] 02-01-2025 History of Present illness Narrative Images from the original note were not included. Behavioral Health Outpatient Progress Note Patient Name: Elizabeth Cisneros MR #: [id number] : 1950 Chief Complaint: Medication and symptom review/management Interval History: 02/01/2025 Patient presents for follow up exam. She is seated in a wheelchair today. She is accompanied by staff from the skilled care facility she is now residing in. States she is tolerating the medication well overall, but she is having a hard time trusting in others for her care and not in control of her own care. She is struggling with the care she is provided at times and things she sees going on around her. She is angry when she asks for something a certain way and is facing a lot of disagreement that she is wrong. She is noting her mood becomes elevated at times due to frustration of her health decline and no longer feeling independent. Denies any side effects of the medication. Denies any Suicidal Ideation or Homicidal Ideation Current stressors: she has had some weakness and ongoing health issues following recent surgeries. She is now living at [facility] in [place] for skilled care and rehabilitation following. Previous Visit: 10/31/2024 Patient presents for follow up exam. I discussed risks, benefits and alternatives of a telephone visit telemedicine consultation with the patient (and any accompanying persons) including the risks that the patient's personal health details and medical records will be discussed over real-time, synchronous, interactive audio technology, the visit will not be recorded without the express consent of both the provider and the patient, and that there are inherent diagnostic limitations compared to [id number] evaluations. We elected to proceed with the telephone visit telemedicine consultation. Patient is engaged and cooperative during conversation. States she is tolerating the medication well. Symptoms are stable and have not worsened. She was recently admitted with pneumonia. Doing better since discharge. She will have upcoming cervical laminectomy with fusion surgery sometime in November. Denies any recent mood changes or fluctuations. Denies any new or ongoing complaints/concerns. Denies any side effects of the medication. Denies any Suicidal Ideation or Homicidal Ideation Current stressors: recent admission and upcoming surgery Current Medications: Medications Prior to Visit[1] Psychiatric ROS: Negative unless noted above. Review of Systems: Constitutional: Denies fever, chills, diaphoresis, malaise Eyes: Denies blurred vision, double vision ENT: Denies nasal congestion, sore throat Neurological: Denies headache, photophobia, weakness, numbness CVS: Denies chest pain or palpitations Respiratory: Denies dyspnea or cough Musculoskeletal: pain to the lower spine area. She is seated in wheelchair due to weakness and limited ROM GI: Denies nausea, vomiting, constipation, or diarrhea Integumentary: Denies itching or rash Endocrine: Denies heat/cold intolerance or weight loss/weight gain Physical Exam: General: Alert and oriented to person, place, and time. Is in no acute distress. Well developed, hydrated, and nourished. Appears stated age. Skin: Appropriate color for ethnicity. Head: The head is normocephalic and atraumatic. Eyes: PERRLA Respiratory: Respirations are non labored. Musculoskeletal: seated in wheelchair limited ROM Mental Status Evaluation: General Appearance & Behavior: age appropriate, pleasant, cooperative, good eye contact Grooming & Hygiene: neat and clean Psychomotor Activity: gait disturbance Speech: normal rate, rhythym, volume, and spontaneity Flow of Thought: linear and goal directed Thought Associations: Intact Content of Thought: No evidence of suicidal ideations/homicidal ideations/psychosis Mood: Frustrated, irritable Affect: irritable Insight: intact Judgment: fair Orientation: alert and oriented to person, place, time, and circumstances Memory: intact recent and remote Concentration: intact Language: fluent Fund of Knowledge: estimated average intelligence Assessment and Plan/Recommendations Diagnoses/Treatment Plan: Diagnoses and all orders for this visit: Anxiety - desvenlafaxine succinate (PRISTIQ) 100 MG 24 hr tablet; Take 1 (one) tablet (100 mg total) by mouth daily . Moderate major depression (HCC) - mirtazapine (REMERON) 45 MG tablet; Take 1 (one) tablet (45 mg total) by mouth nightly . - desvenlafaxine succinate (PRISTIQ) 100 MG 24 hr tablet; Take 1 (one) tablet (100 mg total) by mouth daily . Pharmacological management: Alternative medication plans were discussed with the patient/guardian. All side effects or potential adverse effects were discussed with the patient/guardian. Parent/guardian consented to medication initiation or continuation of the following: Education: Continue medication as prescribed. Please report any side effects or intolerability of the medication. Report any new or worsening symptoms 11/03/2023 12:00 PM 01/27/2024 3:00 PM TADEO-7 TADEO-7 Score 14 7 11/03/2023 12:00 PM 01/27/2024 3:00 PM PHQ-9 PHQ-9 Total Score 19 10 Follow up in: weeks or sooner if needed [employer] is a great way to communicate with your provider, on non urgent concerns. Please consider sending your provider a [employer] message with your non-urgent questions. Please do not use [employer] to send any messages requiring urgent or emergent attention. By selecting to send a message, you acknowledge you are seeking medical advice for non-urgent issues and that you are aware that you may not get a response for 2 business days. Responses are not monitored evenings and weekends. For issues requiring urgent or emergent attention, please call our office at to speak to the provider on-call or call [phone]. Treatment options and alternatives reviewed with patient. Risks, benefits, side effects of all psychiatric medications discussed with patient and informed consent obtained. All questions were answered. Miriam Cerna CNP 02/01/2025 12:03 PM [1] Outpatient Medications Prior to Visit Medication Sig Dispense Refill acetaminophen (TYLENOL) 500 MG tablet Take 1 (one) tablet (500 mg total) by mouth every 6 (six) hours as needed for pain THREE TIMES DAILY . albuterol (PROVENTIL) 2.5 mg /3 mL (0.083 %) nebulizer solution Take 3 mL (2.5 mg total) by nebulization every 6 (six) hours as needed for wheezing . 360 mL 12 atenoloL (TENORMIN) 50 MG tablet Take 1 (one) tablet (50 mg total) by mouth 2 (two) times a day . 120 tablet 0 [place] Saline Gel Apply topically 2 (two) times a day Apply a pea sized amount to both nostrils at bedtime and in a.m. You can use it more often.. 14.1 g 12 Bevespi Aerosphere 9-4.8 mcg HFAA Inhale 2 puffs 2 (two) times a day . 10.7 g 11 budesonide (PULMICORT) 0.5 mg/2 mL nebulizer solution Take 2 mL (0.5 mg total) by nebulization 2 (two) times a day . 60 mL 11 CALCITRATE 200 mg (950 mg) tablet Take 200 mg by mouth 3 (three) times a day . 0 diclofenac sodium 1% (VOLTAREN) 1 % Gel Apply topically 4 (four) times a day as needed for pain . 450 g 2 dicyclomine (BENTYL) 20 mg tablet Take 1 (one) tablet (20 mg total) by mouth 4 (four) times a day before meals and nightly for 7 days . 28 tablet 0 ferrous sulfate 325 (65 FE) MG tablet Take 1 (one) tablet (325 mg total) by mouth daily with breakfast Start: 10/28/24. 30 tablet 0 fexofenadine (LASHA) 180 MG tablet Take 1 (one) tablet (180 mg total) by mouth daily . Fish OiL 1,200 (144-216) mg cap Take 1 capsule by mouth 3 (three) times a day . fluticasone propionate (FLONASE) 50 mcg/actuation nasal spray Instill 2 (two) sprays into each nostril 2 (two) times a day . 18.2 mL 3 folic acid (FOLVITE) 1 MG tablet Take 1 (one) tablet (1 mg total) by mouth daily . furosemide (LASIX) 20 MG tablet Take 1 (one) tablet (20 mg total) by mouth daily as needed (for lower extremity edema) . 30 tablet 0 guaiFENesin (MUCINEX) 600 mg 12 hr tablet Take 2 (two) tablets (1,200 mg total) by mouth 2 (two) times a day . ketoconazole (NIZORAL) 2 % cream Apply topically daily to feet . ketorolac (TORADOL) 10 mg tablet Take 1 (one) tablet (10 mg total) by mouth every 6 (six) hours as needed . 12 tablet 0 lansoprazole (PREVACID) 30 MG capsule Take 1 capsule by mouth every morning before breakfast on an empty stomach. . 90 capsule 3 levothyroxine (SYNTHROID, LEVOTHROID) 75 MCG tablet Take 1 (one) tablet (75 mcg total) by mouth every morning DOS . 90 tablet 1 magnesium glycinate 100 mg Tab Take 2.5 (two and a half) tablets (250 mg total) by mouth 2 (two) times a day . metaxalone (SKELAXIN) 800 MG tablet Take 1 (one) tablet (800 mg total) by mouth 3 (three) times a day as needed for muscle spasms . 90 tablet 1 montelukast (SINGULAIR) 10 mg tablet Take 1 (one) tablet (10 mg total) by mouth nightly . 30 tablet 11 mupirocin (BACTROBAN) 2 % ointment Apply topically 2 (two) times a day . 22 g 0 Nucala 100 mg/mL AtIn Inject 1 mL (100 mg total) under the skin every 28 days . 3 mL 11 ondansetron (ZOFRAN-ODT) 4 MG disintegrating tablet Dissolve 1 (one) tablet (4 mg total) on top of tongue every 8 (eight) hours as needed . 20 tablet 0 Prolia 60 mg/mL Syrg Inject 60 (sixty) mg under the skin once for 1 dose. Therems-M 9 mg iron-400 mcg Tab Take 1 (one) tablet by mouth daily . ubrogepant (Ubrelvy) 100 mg Tab Take 1 (one) tablet (100 mg total) by mouth at bedtime as needed (migraines) . 10 tablet 3 VITAMIN D3 2,000 unit cap Take 1 (one) capsule by mouth 2 (two) times a day . 0 zinc gluconate 50 mg tablet Take 1 (one) tablet (50 mg total) by mouth daily . mirtazapine (REMERON) 45 MG tablet Take 1 (one) tablet (45 mg total) by mouth nightly . 30 tablet 2 No facility-administered medications prior to visit. documented in this encounter [facility] 01-03-2025 History of Present illness Narrative Cervical myelopathy. HPI HPI Elizabeth Csineros is [id number] female status post fall at a chiropractor's office in May 2024, with right subarachnoid hemorrhage over the frontal cerebral convexity, without evidence of extension on interval scan who also has T12 and L2 chronic compression fractures, and a C4-C5 anterolisthesis and multifocal degenerative disease of the cervical spine and at least moderate stenosis at the C4-C5 level with pain with movement of the cervical spine. MRI cervical spine 06/01/2024 demonstrates severe canal stenosis at C3-4 from disc osteophyte and a napkin ring type stenosis and moderate severe stenosis at C4-C5. There is arguably increased STIR signal posterior to the C4 level. There is also a reversal of normal lordosis with kyphosis centered at C5-6-7. She has extreme difficulties with ambulation and balance issues. She almost fell backwards last night but caught herself on the wall. She also has significant pain in the axial cervical spine. She also has pain at the thoracolumbar junction that radiates to the bilateral superior hip areas. She also complains of numbness of all the fingers of both hands and very poor dexterity of her fingers. She has known severe osteoporosis. Echocardiogram 11/15/2024 demonstrated ejection fraction fraction 55%. She was recently hospitalized and then discharged on 12/13/2024 for diffuse weakness. MRI of the brain on 12/06/2024 was performed and independently viewed by me under computer is workstation, and my interpretation follows. There is no evidence of mass effect midline shift or significant subdural hematoma or intraparenchymal hemorrhage. There is no evidence of large vascular distribution infarct. She has had numerous falls due to her cervical myelopathy. She has been placed into rehab at the [facility] in [facility], but her therapist report that she is actually declining despite having intensive PT and OT. She also states she falls repetitively. She her last hard fall approximately 3 to 4 weeks ago was on her left hip. Ever since then she has had excruciating pain down the left leg at times, and has been now diagnosed with an L1 compression fracture as well as her known T12 and L2 fractures. The L1 fracture is identified on the CT abdomen pelvis of 11/16/2024, and is approximately 50% height loss. She has severe axial lumbosacral pain. She has very poor ability to move her hands or to manipulate objects. She also has severe posterior cervical pain. She no longer can walk and needs to use a wheelchair. Past medical history seen for COPD. GE reflux disease. Coronary artery disease. Migraine. Paroxysmal atrial fibrillation. Diabetes mellitus. Status post hip replacement. Osteoporosis. Hypothyroidism. Medication reviewed the OCT. Allergies reviewed in MAR. Review of Systems Comprehensive review of systems was obtained, pertinent positives are noted. The patient is having difficulty with dropping objects. She denies any recent colds or upper respite tract infection. She denies any current chest pain or dyspnea. She does complain severely of the axial thoracolumbar pain that radiates into the bilateral hip areas. She has had avascular necrosis in her bone. She does take fish oil. Family history negative for known metabolic bone disease. Psychosocial review. The patient lives alone. She is retired. She currently is at a fpc facility in [facility]. Physical Exam Awake alert pleasant female in distressed secondary to cervical pain and lumbar pain. She is wheelchair-bound. She does have some tremors and myoclonic type jerking of the bilateral upper extremities and lesser extent lower extremities. She is numb to light touch from the wrist in a stocking glove fashion into the fingers. She is also numb in the legs from the ankles distally into the feet. No calf swelling or tenderness. She is diffusely weak in the legs at 4- out of 5 at iliopsoas glutei quadricep hamstrings and dorsi plantarflex the feet on the right side. On the left side correspondingly the left iliopsoas glutei quadricep hamstring is 3 out of 5, dorsi plantarflexion of left foot 2-3 out of 5. Straight leg raising is positive on left to cause left sciatica. She has severe tenderness to palpation over the lumbosacral area. There is no sacral decubitus ulcer currently and there is no redness or rash or laceration of lumbosacral region. There is no ankle clonus. There is mild pronator drift bilaterally. Deep tendon reflex the biceps and patella are 3+. Abdon sign is negative. Carotid pulses 2+ with 3 and equal. No carotid bruits. Lungs are clear to auscultation. No jugular venous distention. No wheezing. She has diffuse tenderness palpation posterior cervical area especially occipital cervical junction. She has very poor ability to manipulate objects in her hands and struggles to pull out a piece of paper from her purse or to hold onto her cell phone. Left deltoid bicep is 4 - in the right is 3, volar dorsal interossei are 3 and symmetric. Wrist extensor flexor 3 and symmetric. Bicep tricep strength 3 and symmetric. She has decreased light touch sensation circumferentially over the entire right arm and the distal left hand and forearm. She has decreased light touch sensation of the bilateral lower extremities as well in a symmetric fashion. Impression Cervical myelopathy profound with a setting of kyphosis across C5-C7 as well as osteoporosis. T12 L1 and L2 compression fracture and lumbar spondylosis and stenosis likely the cause of her thoracic or lumbar axial pain. Plan At this point time I highly doubt that this patient will improve with any form of conservative measures as she is already deteriorated further due to her cervical myelopathy. She also have likely has further diminution of her abilities due to her thoracolumbar compression fractures. She should be worked up at some point with lumbar imaging to assess for canal compromise. The patient is not interested in surgical intervention. To that end I did recommend a C3-C7 laminectomy and instrumented fusion for decompression of the spinal canal, as well as in the same setting T12 L1-L2 kyphoplasties, pending further imaging as to whether or not she would require any laminectomy decompression at the same time of the lumbar spinal canal. I recommend she be admitted to the hospital due to complexity day before the operative procedure. She will need to hold her fish oil. It is with her the fact that from a cervical myelopathy perspective, the chance of her improving is approximately 50 to 66% based on prior studies, but she could fully 1 out of 3 chance experience no improvement or even decline after surgical intervention. She will require intensive inpatient rehabilitation she understands this. I discussed with the risk of surgery including stroke DVT pulm embolism microinfarction no improvement need for blood transfusion all transfusion related reactions potential transmissible infectious diseases, CSF leak, temporary permanent neurologic disability, pneumothorax, surgical site infection, instrumentation failure, nonunion, cement migration, and need for further surgical interventions of her spine, and the fact that this surgery will not prevent surgical problems occurring at other levels of her spine, and she wished to proceed. Informed consent obtained. Luis Eduardo Collier MD documented in this encounter [facility] 01-03-2025 Note Cervical myelopathy. HPI HPI Elizabeth Cisneros is [id number] female status post fall at a chiropractor's office in May 2024, with right subarachnoid hemorrhage over the frontal cerebral convexity, without evidence of extension on interval scan who also has T12 and L2 chronic compression fractures, and a C4-C5 anterolisthesis and multifocal degenerative disease of the cervical spine and at least moderate stenosis at the C4-C5 level with pain with movement of the cervical spine. MRI cervical spine 06/01/2024 demonstrates severe canal stenosis at C3-4 from disc osteophyte and a napkin ring type stenosis and moderate severe stenosis at C4-C5. There is arguably increased STIR signal posterior to the C4 level. There is also a reversal of normal lordosis with kyphosis centered at C5-6-7. She has extreme difficulties with ambulation and balance issues. She almost fell backwards last night but caught herself on the wall. She also has significant pain in the axial cervical spine. She also has pain at the thoracolumbar junction that radiates to the bilateral superior hip areas. She also complains of numbness of all the fingers of both hands and very poor dexterity of her fingers. She has known severe osteoporosis. Echocardiogram 11/15/2024 demonstrated ejection fraction fraction 55%. She was recently hospitalized and then discharged on 12/13/2024 for diffuse weakness. MRI of the brain on 12/06/2024 was performed and independently viewed by me under computer is workstation, and my interpretation follows. There is no evidence of mass effect midline shift or significant subdural hematoma or intraparenchymal hemorrhage. There is no evidence of large vascular distribution infarct. She has had numerous falls due to her cervical myelopathy. She has been placed into rehab at the fpc facility in [facility], but her therapist report that she is actually declining despite having intensive PT and OT. She also states she falls repetitively. She her last hard fall approximately 3 to 4 weeks ago was on her left hip. Ever since then she has had excruciating pain down the left leg at times, and has been now diagnosed with an L1 compression fracture as well as her known T12 and L2 fractures. The L1 fracture is identified on the CT abdomen pelvis of 11/16/2024, and is approximately 50% height loss. She has severe axial lumbosacral pain. She has very poor ability to move her hands or to manipulate objects. She also has severe posterior cervical pain. She no longer can walk and needs to use a wheelchair. Past medical history seen for COPD. GE reflux disease. Coronary artery disease. Migraine. Paroxysmal atrial fibrillation. Diabetes mellitus. Status post hip replacement. Osteoporosis. Hypothyroidism. Medication reviewed the OCT. Allergies reviewed in OCT. Review of Systems Comprehensive review of systems was obtained, pertinent positives are noted. The patient is having difficulty with dropping objects. She denies any recent colds or upper respite tract infection. She denies any current chest pain or dyspnea. She does complain severely of the axial thoracolumbar pain that radiates into the bilateral hip areas. She has had avascular necrosis in her bone. She does take fish oil. Family history negative for known metabolic bone disease. Psychosocial review. The patient lives alone. She is retired. She currently is at a fpc facility in [facility]. Physical Exam Awake alert pleasant female in distressed secondary to cervical pain and lumbar pain. She is wheelchair-bound. She does have some tremors and myoclonic type jerking of the bilateral upper extremities and lesser extent lower extremities. She is numb to light touch from the wrist in a stocking glove fashion into the fingers. She is also numb in the legs from the ankles distally into the feet. No calf swelling or tenderness. She is diffusely weak in the legs at 4- out of 5 at iliopsoas glutei quadricep hamstrings and dorsi plantarflex the feet on the right side. On the left side correspondingly the left iliopsoas glutei quadricep hamstring is 3 out of 5, dorsi plantarflexion of left foot 2-3 out of 5. Straight leg raising is positive on left to cause left sciatica. She has severe tenderness to palpation over the lumbosacral area. There is no sacral decubitus ulcer currently and there is no redness or rash or laceration of lumbosacral region. There is no ankle clonus. There is mild pronator drift bilaterally. Deep tendon reflex the biceps and patella are 3+. Abdon sign is negative. Carotid pulses 2+ with 3 and equal. No carotid bruits. Lungs are clear to auscultation. No jugular venous distention. No wheezing. She has diffuse tenderness palpation posterior cervical area especially occipital cervical junction. She has very poor ability to manipulate objects in her hands and struggles to pull out a piece of paper from her purse (more content not included)... [facility] 12-13-2024 History of Present illness Narrative Removed IV per order and gave discharge paperwork to EMS. Patient denied any further needs or questions. Gave report to EMS. Called report to [facility] in [facility]. Medical Transportation set up by CTS per hospital request: Date: 12/13/2024Thursday Time: 1300 Destination: [facility] [address] [place] [address] Company: [employer] ([phone]) Special needs/equipment:N/A Truck Type: Ambulance Companies called:Roundtrip Transport request received and is being scheduled, trip information will follow as soon as the time is secured. Care Management Progress Note Date: 12/13/2024 Time: 11:15 AM Patient Name: Elizabeth Cisneros Date of : 1950 Discharge Plan: [facility] Discharging Transportation Plan: Ambulance needed Discharge Plan Status: Per medical team pt is medically ready for discharge. Ambulance transport request sent. Unit nurse updated. 1201- Ambulance scheduled for 1pm today. Unit nurse notified and ambulance form printed to the unit. Left VM with sonEmery with update as well. No other needs identified. CM signing off. Assessment and Background Information: SDOH Needs Addressed: Transportation Needs, Utilities Resources Provided - Transportation Needs: Added to AVS Resources Provided - Utilities: Added to AVS Physical Therapy PHYSICAL 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 NOTE Skilled Therapy Needs After Discharge Anticipate Resolution of Current Assessment Limitations Including: Pain, Mechanical Barriers, Social Support Are carton catcher Therapy Services Needed After Discharge: Yes Intensity of carton catcher Therapy: Up to 5 days per week Anticipated Duration of carton catcher Therapy: > 30 days PT DME Recommendation: To be determined at next level of care Outcomes Measures Prior Function - Basic Mobility Raw Score: 24 Points Prior Function - Basic Mobility % Impaired: 0% AM-PAC Basic Mobility Raw Score: 14 Points AM-PAC Basic Mobility % Impaired: 53.86% Activity Tolerance Activity Tolerance: Tolerates 20 - 30 min activity with multiple rests Therapy Precautions General Rehab Precautions: Fall risk Balance Sitting Balance - Static: Stand by assist Sitting Balance - Dynamic: Stand by assist Standing Balance - Static: Contact guard assist, Minimal assist Wireless Cellular Technician - Standing Static: wheeled walker Loss of Balance- Standing Static: posterior Standing Balance - Dynamic: Minimal assist Wireless Cellular Technician - Standing Dynamic: wheeled walker Loss of Balance- Standing Dynamic: posterior Bed Mobility Supine to Sit: (Pt seated EOB upon starting Tx) Transfers Sit to Stand: Minimal assist Stand Pivot Transfers: Minimal assist Wireless Cellular Technician: wheeled walker Skilled Intervention Provided: verbal cues, monitoring patient response with activity, monitoring patient response with positional changes, monitoring patient vital signs at rest/during/after activity, patient education For: LE management, safety during functional tasks, safe use of AD and/or equipment, self-monitoring during activity Resulting in: improved activity tolerance, improved functional independence, increased self-management of symptoms and impairments, increased upright tolerance for functional tasks Gait/Locomotion Gait Assistance: Contact guard assist, Minimal assist Assistive Device: wheeled walker Distance: 3 Feet Pattern: step through, R impaired heel strike, L impaired heel strike, R decreased step length, L decreased step length, over reliance on upper extremities, decreased ranjan (steps per minute) Weight Bearing Status: able to maintain Gait Loss(es) of Balance: intermittent, posterior Environment/Terrain: closed environment, minimal to no distractions Skilled Intervention Provided: verbal cues, monitoring patient response with activity, patient education For: self-monitoring during activity, gait sequence, gait technique Resulting in: improved activity tolerance, increased self-management of symptoms and impairments, increased upright tolerance for functional tasks Exercise Ankle Pumps: x15 marleni Hip Flexion: x10 marleni Hip Abduction: x10 marleni Long Arc Quad: x10 marleni Skilled Intervention Provided: verbal cues, monitoring patient response with exercise, patient education For: achieving full ROM as tolerated, frequency of exercise(s), muscle activation Resulting in: improved activity tolerance, improved functional strength/ROM Additional Treatment Details Pt reporting BLE pain/spasming with ther ex, with slight c/o's dizziness with BP assessed at 130/80. Pt then agreeable to sitting up in lounge chair. Pt left in lounge chair with call light in reach, alarm on and all needs met. Home Living Obtained Home Living and PLOF info from: Patient, Patient s family member Lives With: Alone Type of Home: Apartment Home Layout: One level Steps to enter home: No Bathroom Shower/Tub: Tub/shower unit Bathroom Equipment: Grab bars in shower, Hand-held showerhead, Toilet seat mail distribution scheme examiner, Tub transfer bench Bathroom Accessibility: Accessible via walker Mobility Equipment: Cane, Wheeled walker, Rollator ADL Equipment: Loss Prevention Consultant Prior Level of Function Receives Help From: Family (Assist from [id number]/sister) Level of Cottle - Transfers/Ambulation/Mobility: Independent with functional transfers, Independent with household ambulation, Independent with community ambulation (Walker and rollator use) Level of Cottle - ADLs: Needs assistance Bathing: Moderate assist Dressing: Maximal assist Toileting: Moderate assist Grooming: Moderate assist Feeding: Moderate assist Level of Cottle - Homemaking: Needs assistance Driving: Patient does not drive Shopping: (Groceries delivered) Vocational: Retired For complete objective data, detailed plan of care and patient education refer to: PT Evaluation flowsheet, PT Evaluation and Treatment flowsheet, PT Treatment flowsheet, patient Plan of Care, Plan of Care progress note, and Patient Education. This note stands as the current Discharge Summary upon patient discharge from the hospital or completion of Physical Therapy Plan of Care. Cosigned by Yadira iWlson, PT at 12/13/2024 1:17 PM EDT Spiritual Care Progress Note Completed by: Luz Marina Berg Person(s) Present During this Visit: Patient Not Available Time Spent in Direct Patient Care: 5 Narrative: This pilot supervisor attempted to visit the pt., Elizabeth, while rounding. She explained that it was not a good time for a visit. Visit rescheduled for patient and/or family convenience and pastoral care availability. Pastoral Care team will remain available to support patient and family PRN. 12/12/24 1348 Visit Background Visit With Patient Not Available Visit By Staff Licensing Engineer Visit Progression Attempt Visit Requested By Licensing Engineer Initiated Visit Source Licensing Engineer Initiated Visit Type Inpatient;Rounding Visit Circumstances and Events Routine Visit Visit Length (minutes) 5 Patient's Response to Pastoral Care Timing of Visit Not Optimal. Visit Rescheduled Visit Planning PRN Spiritual Assessment Not assessed during visit Baptism Assessment Not assessed during this visit Family assessment provided? Not assessed during this visit Signature: Luz Marina Berg MDiv Staff Licensing Engineer [facility] On-Call Licensing Engineer /Adriannaera On-Call Licensing Engineer She/Her/Hers [facility] [place] Assessment and Plan Elizabeth Cisneros is a 74 y.o. female patient of Sj Motley MD with history of anxiety, depression, diabetes, coronary artery disease, COPD, GERD, dyslipidemia, hypertension and hypothyroidism presented as a transfer to [facility] on 12/04/2024 for generalized weakness. Generalized Weakness Frequent Falls Recent admission (10/25/24) for acute pancreatitis and pneumonia - following discharge patient was seen by PT (at home) but has recently declined their services CT head (12/03/24) - no acute intracranial findings CT pelvis w/o contrast (12/03/24) - no definitive acute fractures in either hip or bony pelvis UA-negative Fall precautions Orthostatic vitals signs Consult Case Management, PT & OT pending Impaired coordination Per family, and did notice on physical exam 12/06 Obtained MRI brain 12/06, no acute findings; consider outpatient neurology evaluation for dementia Added ST evaluation- patient declined, stated no needs Hyponatremia, acute on chronic Na-127->129->131 Was seen by nephrology, Dr Hickey, last month, at which time her sodium was also in the upper 120s She recommended that the patient take sodium chloride tablets 1000 mg TID, however the patient was not taking these prior to admission (unclear why), and it was also suggested that there be consideration of discontinuing her Pristiq Monitor BMP Acute sinusitis Sinusitis findings suggested by MRI brain and confirmed when discussed with patient (recent post nasal drip, headache, etc) Doxycycline 100 mg BID x7 days Constipation CT pelvis w/o contrast (12/03/24) - large amount of retained feces in the rectal vault with surrounding inflammation concerning for stercoral colitis Bowel regimen - although patient has been refusing Checked KUB 12/09- mild constipation Per nursing, she has had some BM's although documentation has not been consistent Coronary Artery Disease Arteriosclerotic Vascular Disease Mitral Valve Prolapse EKG - sinus rhythm w/ premature supraventricular complexes Echo w/ EF 55% (10/31/24) - normal LV size and systolic function, normal wall motion, right ventricular size and systolic function are normal, left ventricular diastolic function is normal, no significant valvular heart disease is present Continue home cardiac medications: atenolol Takes Lasix PRN, which was held on admission COPD w/o Exacerbation Baseline RA - currently on RA Takes Bevespi at home, which is non-formulary here; scheduled DuoNeb Continue home nebulized budesonide BID Supplemental O2 only if SpO2<88% GERD Continue Protonix Hypertension Continue Atenolol Hypothyroidism TSH - 1.43 (10/25/24) Repeat TSH w/ reflex T4 Continue Levothyroxine Hypomagnesemia IV replacement ordered, and resumed home daily oral supplementation Repeat labs in AM Iron deficiency anemia Continue Folic Acid Resume home iron Restless Leg Syndrome Continue Remeron Anxiety/Depression Continue Venlafaxine (Pristiq substitute) Note: this eventually may need to be changed d/t hyponatremia, as stated above Cervical spondylolysis with myelopathy Has been following with Dr Collier outpatient and was discussing surgical interventions I discussed with his office staff and they will reach out to her to set up an office visit after discharge Code Status: Full Code - Unverified Disposition Medically stable for discharge date: 12/12 Patient requires continued hospitalization due to: hyponatremia, placement Discharge location: ECF Quality Measures DVT prophylaxis: Lovenox Payton catheter: absent Subjective No acute events noted overnight. Afebrile. Saturating well on room air. Patient c/o left hip pain, muscle spasms. Review of Systems All relevant systems have been reviewed and are negative except as noted in HPI or below Objective BP (!) 143/83 Pulse 71 Temp 97.7 F (36.5 C) (Oral) Resp 16 Ht 5' 3 Wt 54.9 kg (121 lb 0.5 oz) SpO2 92% BMI 21.44 kg/m Physical Examination General Appearance: alert; chronically ill appearing; in no acute distress HEENT: Head- normocephalic; Eyes- EOMI, sclera anicteric; Ears- hearing intact; Nose- no nasal discharge; Throat- mucous membranes moist Cardiovascular: regular rate and rhythm Respiratory: lungs clear to auscultation; without wheezes, rales or rhonchi; on room air Abdomen: soft, non-tender, non-distended Neurological: oriented x 3; normal speech; no focal findings or movement disorder noted Musculoskeletal: no significant deformity or tenderness to palpation Skin: normal coloration; no obvious rashes, lesions or skin breakdown Psych: normal mood and affect Results/Medications Reviewed 12/12/2024 11:38 AM Laboratory, Microbiology, Radiology, Cardiology, Medications, and Transcriptions Physical Therapy PHYSICAL 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 NOTE Skilled Therapy Needs After Discharge Anticipate Resolution of Current Assessment Limitations Including: Pain, Mechanical Barriers, Social Support Are carton catcher Therapy Services Needed After Discharge: Yes Intensity of carton catcher Therapy: Up to 5 days per week Anticipated Duration of carton catcher Therapy: > 30 days PT DME Recommendation: To be determined at next level of care Outcomes Measures Prior Function - Basic Mobility Raw Score: 24 Points Prior Function - Basic Mobility % Impaired: 0% AM-PAC Basic Mobility Raw Score: 12 Points AM-PAC Basic Mobility % Impaired: 61.94% Activity Tolerance Activity Tolerance: Tolerates 20 - 30 min activity with multiple rests Therapy Precautions General Rehab Precautions: Fall risk Balance Sitting Balance - Static: Stand by assist Sitting Balance - Dynamic: Stand by assist Standing Balance - Static: Minimal assist Wireless Cellular Technician - Standing Static: wheeled walker Loss of Balance- Standing Static: posterior Bed Mobility Supine to Sit: Minimal assist Sit to Supine: Moderate assist Wireless Cellular Technician: bedrails, patient slide sheet / friction-reducing device Skilled Intervention Provided: verbal cues, monitoring patient response with activity, monitoring patient response with positional changes, patient education For: LE management, safe use of bedrails and/or equipment, safety during functional tasks, self-monitoring during activity Resulting in: improved activity tolerance, improved functional independence, increased participation in mobility task(s), increased self-management of symptoms and impairments, increased upright tolerance for functional tasks Transfers Sit to Stand: Minimal assist (Upon initially standing, LLE spasm, causing post LOB and abrupt sitting EOB) Wireless Cellular Technician: wheeled walker Skilled Intervention Provided: verbal cues, monitoring patient response with activity, monitoring patient response with positional changes, patient education For: LE management, safety during functional tasks, safe use of AD and/or equipment, self-monitoring during activity, sequencing of movement Resulting in: improved activity tolerance, improved functional independence, increased self-management of symptoms and impairments, increased upright tolerance for functional tasks Gait/Locomotion Gait Assistance: (unable to attempt d/t LLE spasm/pain with stand) Exercise Ankle Pumps: x15 marlein Hip Flexion: x15 RLE, x10 LLE Hip Abduction: x15 RLE, x10 LLE Long Arc Quad: x15 RLE, x13 LLE Skilled Intervention Provided: verbal cues, instruction on proper technique/alignment, patient education For: achieving full ROM as tolerated, muscle activation, proper positioning of extremity, self-monitoring during activity Resulting in: improved activity tolerance, improved functional strength/ROM, improved independence with HEP, improved safety Additional Treatment Details Pt in bed upon arrival, agreeable to completing Tx, however, upon STS, increased LLE spasm, causing LOB post and increased LLE pain unable to progress mobility. Pt left in supine with call light in reach, alarm on and all needs met. Home Living Obtained Home Living and PLOF info from: Patient, Patient s family member Lives With: Alone Type of Home: Apartment Home Layout: One level Steps to enter home: No Bathroom Shower/Tub: Tub/shower unit Bathroom Equipment: Grab bars in shower, Hand-held showerhead, Toilet seat mail distribution scheme examiner, Tub transfer bench Bathroom Accessibility: Accessible via walker Mobility Equipment: Cane, Wheeled walker, Rollator ADL Equipment: Loss Prevention Consultant Prior Level of Function Receives Help From: Family (Assist from [id number]/sister) Level of Cottle - Transfers/Ambulation/Mobility: Independent with functional transfers, Independent with household ambulation, Independent with community ambulation (Walker and rollator use) Level of Cottle - ADLs: Needs assistance Bathing: Moderate assist Dressing: Maximal assist Toileting: Moderate assist Grooming: Moderate assist Feeding: Moderate assist Level of Cottle - Homemaking: Needs assistance Driving: Patient does not drive Shopping: (Groceries delivered) Vocational: Retired For complete objective data, detailed plan of care and patient education refer to: PT Evaluation flowsheet, PT Evaluation and Treatment flowsheet, PT Treatment flowsheet, patient Plan of Care, Plan of Care progress note, and Patient Education. This note stands as the current Discharge Summary upon patient discharge from the hospital or completion of Physical Therapy Plan of Care. Cosigned by Yadira Wilson, PT at 12/12/2024 12:47 PM EDT Care Management Progress Note Date: 12/12/2024 Time: 9:26 AM Patient Name: Elizabeth Cisneros Date of : 1950 Discharge Plan: [facility] Discharging Transportation Plan: Ambulance needed Discharge Plan Status: Precert still pending to [facility]. [id number] insurance precert approved through 12/18/24, Medical team and unit nurse notified, per medical team pt sodium levels need corrected, she may be able to discharge tomorrow. CM will continue to follow. Assessment and Background Information: SDOH Needs Addressed: Transportation Needs, Utilities Resources Provided - Transportation Needs: Added to AVS Resources Provided - Utilities: Added to AVS [facility] [place] Assessment and Plan Elizabeth Cisneros is a 74 y.o. female patient of Sj Motley MD with history of anxiety, depression, diabetes, coronary artery disease, COPD, GERD, dyslipidemia, hypertension and hypothyroidism presented as a transfer to [facility] on 12/04/2024 for generalized weakness. Generalized Weakness Frequent Falls Recent admission (10/25/24) for acute pancreatitis and pneumonia - following discharge patient was seen by PT (at home) but has recently declined their services CT head (12/03/24) - no acute intracranial findings CT pelvis w/o contrast (12/03/24) - no definitive acute fractures in either hip or bony pelvis Afebrile, WBC 5.37, Lactic acid 1.4, UA - negative Fall precautions Orthostatic vitals signs Consult Case Management, PT & OT pending Impaired coordination Per family, and did notice on physical exam 12/06 Although, patient claims Flexeril may have contributed to some of this; now de'ed Obtained MRI brain 12/06, no acute findings; consider outpatient neurology evaluation for dementia Added ST evaluation- patient declined, stated no needs Hyponatremia, acute on chronic Patient has been dealing with chronic hyponatremia, baseline Na reportedly low 130s; however BMP on admission was improved with sodium at 136 Was seen by nephrology, Dr Hickey, last month, at which time her sodium was also in the upper 120s She recommended that the patient take sodium chloride tablets 1000 mg TID, however the patient was not taking these prior to admission (unclear why), and it was also suggested that there be consideration of discontinuing her Pristiq (currently being substituted for here with Effexor) Last two days, sodium has been 127 Discussed this with patient and she is very reluctant to re-starting sodium chloride tabs for unclear reasons; agrees to start at 500 mg BID, and will try to titrate up as needed... repeat BMP in AM Acute sinusitis Sinusitis findings suggested by MRI brain and confirmed when discussed with patient (recent post nasal drip, headache, etc) Doxycycline 100 mg BID x7 days Constipation CT pelvis w/o contrast (12/03/24) - large amount of retained feces in the rectal vault with surrounding inflammation concerning for stercoral colitis Bowel regimen - although patient has been refusing Checked KUB 12/09- mild constipation Per nursing, she has had some BM's although documentation has not been consistent Coronary Artery Disease Arteriosclerotic Vascular Disease Mitral Valve Prolapse EKG - sinus rhythm w/ premature supraventricular complexes Echo w/ EF 55% (10/31/24) - normal LV size and systolic function, normal wall motion, right ventricular size and systolic function are normal, left ventricular diastolic function is normal, no significant valvular heart disease is present Continue home cardiac medications: atenolol Takes Lasix PRN, which was held on admission COPD w/o Exacerbation Baseline RA - currently on RA Takes Bevespi at home, which is non-formulary here; scheduled DuoNeb Continue home nebulized budesonide BID Supplemental O2 only if SpO2<88% GERD Continue Protonix Hypertension Continue Atenolol Hypothyroidism TSH - 1.43 (10/25/24) Repeat TSH w/ reflex T4 Continue Levothyroxine Hypomagnesemia IV replacement ordered, and resumed home daily oral supplementation Repeat labs in AM Iron deficiency anemia Continue Folic Acid Resume home iron Restless Leg Syndrome Continue Remeron Anxiety/Depression Continue Venlafaxine (Pristiq substitute) Note: this eventually may need to be changed d/t hyponatremia, as stated above Cervical spondylolysis with myelopathy Has been following with Dr Collier outpatient and was discussing surgical interventions I discussed with his office staff and they will reach out to her to set up an office visit after discharge Code Status: Full Code - Unverified Disposition Medically stable for discharge date: 12/12 Patient requires continued hospitalization due to: hyponatremia, placement Discharge location: ECF Quality Measures DVT prophylaxis: Lovenox Payton catheter: absent Subjective No acute events noted overnight. Afebrile. Saturating well on room air. Patient c/o left hip pain, muscle spasms. Review of Systems All relevant systems have been reviewed and are negative except as noted in HPI or below Objective BP 131/77 Pulse 82 Temp 97.8 F (36.6 C) Resp 16 Ht 5' 3 Wt 54.9 kg (121 lb 0.5 oz) SpO2 93% BMI 21.44 kg/m Physical Examination General Appearance: alert; chronically ill appearing; in no acute distress HEENT: Head- normocephalic; Eyes- EOMI, sclera anicteric; Ears- hearing intact; Nose- no nasal discharge; Throat- mucous membranes moist Cardiovascular: regular rate and rhythm Respiratory: lungs clear to auscultation; without wheezes, rales or rhonchi; on room air Abdomen: soft, non-tender, non-distended Neurological: oriented x 3; normal speech; no focal findings or movement disorder noted Musculoskeletal: no significant deformity or tenderness to palpation Skin: normal coloration; no obvious rashes, lesions or skin breakdown Psych: normal mood and affect Results/Medications Reviewed 12/11/2024 11:17 AM Laboratory, Microbiology, Radiology, Cardiology, Medications, and Transcriptions [facility] [place] Assessment and Plan Elizabeth Cisneros is a 74 y.o. female patient of Sj Motley MD with history of anxiety, depression, diabetes, coronary artery disease, COPD, GERD, dyslipidemia, hypertension and hypothyroidism presented as a transfer to [facility] on 12/04/2024 for generalized weakness. Generalized Weakness Frequent Falls Recent admission (10/25/24) for acute pancreatitis and pneumonia - following discharge patient was seen by PT (at home) but has recently declined their services CT head (12/03/24) - no acute intracranial findings CT pelvis w/o contrast (12/03/24) - no definitive acute fractures in either hip or bony pelvis Afebrile, WBC 5.37, Lactic acid 1.4, UA - negative Fall precautions Orthostatic vitals signs Consult Case Management, PT & OT pending Impaired coordination Per family, and did notice on physical exam 12/06 Although, patient claims [facility] may have contributed to some of this[facility] 12/06, no acute findings; consider outpatient neurology evaluation for dementia Added ST evaluation- patient declined, stated no needs Acute sinusitis Sinusitis findings suggested by MRI brain and confirmed when discussed with patient (recent post nasal drip, headache, etc) Doxycycline 100 mg BID x7 days Constipation CT pelvis w/o contrast (12/03/24) - large amount of retained feces in the rectal vault with surrounding inflammation concerning for stercoral colitis Bowel regimen - although patient has been refusing Checked KUB 12/09- mild constipation Per nursing, she has had some BM's although documentation has not been consistent Coronary Artery Disease Arteriosclerotic Vascular Disease Mitral Valve Prolapse EKG - sinus rhythm w/ premature supraventricular complexes Echo w/ EF 55% (10/31/24) - normal LV size and systolic function, normal wall motion, right ventricular size and systolic function are normal, left ventricular diastolic function is normal, no significant valvular heart disease is present Continue home cardiac medications: atenolol Takes Lasix PRN, which was held on admission COPD w/o Exacerbation Baseline RA - currently on RA Takes Bevespi at home, which is non-formulary here; scheduled DuoNeb Continue home nebulized budesonide BID Supplemental O2 only if SpO2<88% GERD Continue Protonix Hypertension Continue Atenolol Hypothyroidism TSH - 1.43 (10/25/24) Repeat TSH w/ reflex T4 Continue Levothyroxine Hypomagnesemia IV replacement ordered, and resumed home daily oral supplementation Repeat labs in AM Iron deficiency anemia Continue Folic Acid Resume home iron Hyponatremia, resolved Appears to be chronic in nature; Baseline Na ~133 Current Na 136 Restless Leg Syndrome Continue Remeron Anxiety/Depression Continue Venlafaxine (Pristiq substitute) Cervical spondylolysis with myelopathy Has been following with Dr Collier outpatient and was discussing surgical interventions I discussed with his office staff and they will reach out to her to set up an office visit after discharge Code Status: Full Code - Unverified Disposition Medically stable for discharge date: 12/09 Patient requires continued hospitalization due to: SNF pre-cert pending Discharge location: family hoping for as above Quality Measures DVT prophylaxis: Lovenox Payton catheter: absent Subjective No acute events noted overnight. Afebrile. Saturating well on room air. Denies complaints or needs. Review of Systems All relevant systems have been reviewed and are negative except as noted in HPI or below Objective BP (!) 161/73 Pulse 70 Temp 98 F (36.7 C) (Oral) Resp 16 Ht 5' 3 Wt 54.9 kg (121 lb 0.5 oz) SpO2 94% BMI 21.44 kg/m Physical Examination General Appearance: alert; well appearing; in no acute distress HEENT: Head- normocephalic; Eyes- EOMI, sclera anicteric; Ears- hearing intact; Nose- no nasal discharge; Throat- mucous membranes moist Cardiovascular: regular rate and rhythm Respiratory: lungs clear to auscultation; without wheezes, rales or rhonchi; on room air Neurological: oriented x 3; normal speech; no focal findings or movement disorder noted Musculoskeletal: no significant deformity or tenderness to palpation Skin: normal coloration; no obvious rashes, lesions or skin breakdown Psych: normal mood and affect Results/Medications Reviewed 12/10/2024 10:42 AM Laboratory, Microbiology, Radiology, Cardiology, Medications, and Transcriptions Care Management Progress Note Date: 12/09/2024 Time: 12:55 PM Patient Name: Elizabeth Cisneros Date of : 1950 Discharge Plan: [facility] Discharging Transportation Plan: Ambulance needed Discharge Plan Status: Pt precert submitted in [employer] and is pending. Unit nurse and medical team updated. CM will continue to follow. Assessment and Background Information: SDOH Needs Addressed: Transportation Needs, Utilities Resources Provided - Transportation Needs: Added to AVS Resources Provided - Utilities: Added to AVS [facility] [place] Assessment and Plan Elizabeth Cisneros is a 74 y.o. female patient of Sj Motley MD with history of anxiety, depression, diabetes, coronary artery disease, COPD, GERD, dyslipidemia, hypertension and hypothyroidism presented as a transfer to [facility] on 12/04/2024 for generalized weakness. Generalized Weakness Frequent Falls Recent admission (10/25/24) for acute pancreatitis and pneumonia - following discharge patient was seen by PT (at home) but has recently declined their services CT head (12/03/24) - no acute intracranial findings CT pelvis w/o contrast (12/03/24) - no definitive acute fractures in either hip or bony pelvis Afebrile, WBC 5.37, Lactic acid 1.4, UA - negative Fall precautions Orthostatic vitals signs Consult Case Management, PT & OT pending Impaired coordination Per family, and did notice on physical exam 12/06 Although, patient claims Flexeril may have contributed to some of this; now de'ed Obtained MRI brain 12/06, no acute findings; consider outpatient neurology evaluation for dementia Added ST evaluation- patient declined, stated no needs Acute sinusitis Sinusitis findings suggested by MRI brain and confirmed when discussed with patient (recent post nasal drip, headache, etc) Doxycycline 100 mg BID x7 days Constipation CT pelvis w/o contrast (12/03/24) - large amount of retained feces in the rectal vault with surrounding inflammation concerning for stercoral colitis Bowel regimen - although patient has been refusing Will check KUB for re-assessment 12/09, as there are no documented BM's since admission Encourage high fiber diet Coronary Artery Disease Arteriosclerotic Vascular Disease Mitral Valve Prolapse EKG - sinus rhythm w/ premature supraventricular complexes Echo w/ EF 55% (10/31/24) - normal LV size and systolic function, normal wall motion, right ventricular size and systolic function are normal, left ventricular diastolic function is normal, no significant valvular heart disease is present Continue home cardiac medications: atenolol Takes Lasix PRN, which was held on admission COPD w/o Exacerbation Baseline RA - currently on RA Takes Bevespi at home, which is non-formulary here; scheduled DuoNeb Continue home nebulized budesonide BID Supplemental O2 only if SpO2<88% GERD Continue Protonix Hypertension Continue Atenolol Hypothyroidism TSH - 1.43 (10/25/24) Repeat TSH w/ reflex T4 Continue Levothyroxine Hypomagnesemia IV replacement ordered, and resumed home daily oral supplementation Repeat labs in AM Iron deficiency anemia Continue Folic Acid Resume home iron Hyponatremia, resolved Appears to be chronic in nature; Baseline Na ~133 Current Na 136 Restless Leg Syndrome Continue Remeron Anxiety/Depression Continue Venlafaxine (Pristiq substitute) Code Status: Full Code - Unverified Disposition Medically stable for discharge date: 12/09 Patient requires continued hospitalization due to: SNF pre-cert pending Discharge location: family hoping for as above Quality Measures DVT prophylaxis: Lovenox Payton catheter: absent Subjective No acute events noted overnight. Afebrile. Saturating well on room air. Denies complaints or needs. Review of Systems All relevant systems have been reviewed and are negative except as noted in HPI or below Objective BP (!) 147/96 Pulse 77 Temp 98.2 F (36.8 C) (Oral) Resp 16 Ht 5' 3 Wt 54.9 kg (121 lb 0.5 oz) SpO2 96% BMI 21.44 kg/m Physical Examination General Appearance: alert; well appearing; in no acute distress HEENT: Head- normocephalic; Eyes- EOMI, sclera anicteric; Ears- hearing intact; Nose- no nasal discharge; Throat- mucous membranes moist Cardiovascular: regular rate and rhythm Respiratory: lungs clear to auscultation; without wheezes, rales or rhonchi; on room air Neurological: oriented x 3; normal speech; no focal findings or movement disorder noted Musculoskeletal: no significant deformity or tenderness to palpation Skin: normal coloration; no obvious rashes, lesions or skin breakdown Psych: normal mood and affect Results/Medications Reviewed 12/09/2024 11:19 AM Laboratory, Microbiology, Radiology, Cardiology, Medications, and Transcriptions Occupational Therapy 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 NOTE Skilled Therapy Needs After Discharge Anticipate Resolution of Current Assessment Limitations Including: Pain, Mechanical Barriers Are OT Skilled Therapy Services Needed After Discharge: Yes Intensity of OT Skilled Therapy: Up to 5 days per week Anticipated Duration of OT Skilled Therapy: > 30 days OT DME Recommendation: To be determined at next level of care Rehab Potential: Good Outcomes Measures Prior Function Daily Activity Raw Score: 13 Prior Function Daily Activity % Impaired: 63.03% AM-PAC Daily Activity Raw Score: 11 AM-PAC Daily Activity % Impaired: 70.42% Activity Tolerance Activity Tolerance: Tolerates 30 min acitivty with multiple rests Therapy Precautions Orthotic Devices: No Weight Bearing Status: WFL General Rehab Precautions: Fall risk Cognition Arousal/Alertness: Appropriate responses to stimuli Orientation Level: Oriented X4 Safety Judgment: Decreased awareness of need for safety Problem Solving: Assistance required to identify errors made, Assistance required to generate solutions Attention: Attends to quiet environment Hearing Status: WFL Social Interaction: Appropriate, Cooperative Skilled Intervention Provided: patient education For: compensatory techniques, preparing for self-care tasks Resulting In: improved initiation, improved awareness of self/environment ADL Feeding: Moderate assist, Increased time to complete, Use of adaptive equipment (Provided pt with built up red foam handles to utilize over regular utensils for each meal, returning demo of trialing varies grasps for R and L hand to increase success with self feeding skills. Handled lidded cups also success if not to full/heavy.) Feeding - Skilled Intervention Provided: patient education, blocked practice/skill repetition (with AE and SROM tech's to get R hand up to mouth.) Feeding - For: UE positioning, UE management, postural alignment, proper body mechanics, self-monitoring (strongly encouraging pt to transfer into chair for every meal to increase posture and alignment to better use UE's to feed self.) Feeding - Resulting In: improved initiation, improved participation in ADL task (Pt easily fatigues but is putting good effort into skill.) Grooming: Moderate assist (to fully comb hair ed pt on long handled rockwell and brushes online to obtain.) Grooming - Skilled Intervention Provided: patient education Grooming - For: adaptive equipment use, compensatory strategies, proper body mechanics Grooming - Resulting In: improved awareness, improved initiation Exercise Seated Exercises: Pt sitting up in bed accomplishing AAROM for R shld rom, demo I elbow and forearm rom. LUE AROM as shawn in sets of 5reps each. B hand grasp fair- difficulty maintainging supination skills upon func tasks. Ed pt on SROM to increase R shld flexion using her LUE with success achieving up to 80 degree's vs 20 degree's I'ly. Breathing Training: Pursed lip breathing Skilled intervention provided: patient education For: proper positioning of extremity, number of repetitions, breath control/breathing pattern with exercise, muscle activation Resulting In: improved initiation Home Living Obtained Home Living and PLOF info from: Patient, Patient s family member Lives With: Alone Type of Home: Apartment Home Layout: One level Steps to enter home: No Bathroom Shower/Tub: Tub/shower unit Bathroom Equipment: Grab bars in shower, Hand-held showerhead, Toilet seat mail distribution scheme examiner, Tub transfer bench Bathroom Accessibility: Accessible via walker Mobility Equipment: Cane, Wheeled walker, Rollator ADL Equipment: Loss Prevention Consultant Prior Level of Function Receives Help From: Family (Assist from [id number]/sister) Level of Cottle - Transfers/Ambulation/Mobility: Independent with functional transfers, Independent with household ambulation, Independent with community ambulation (Walker and rollator use) Level of Cottle - ADLs: Needs assistance Bathing: Moderate assist Dressing: Maximal assist Toileting: Moderate assist Grooming: Moderate assist Feeding: Moderate assist Level of Cottle - Homemaking: Needs assistance Driving: Patient does not drive Shopping: (Groceries delivered) Vocational: Retired For complete objective data, detailed plan of care and patient education refer to: OT Evaluation flowsheet, OT Evaluation and Treatment flowsheet, OT Treatment flowsheet, patient Plan of Care, Plan of Care progress note, and Patient Education. This note stands as the current Discharge Summary upon patient discharge from the hospital or completion of Occupational Therapy Plan of Care. Cosigned by Juan Herron OT at 12/09/2024 3:40 PM EDT Physical Therapy PHYSICAL 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 NOTE Skilled Therapy Needs After Discharge Anticipate Resolution of Current Assessment Limitations Including: Pain, Mechanical Barriers, Social Support Are carton catcher Therapy Services Needed After Discharge: Yes Intensity of carton catcher Therapy: Up to 5 days per week Anticipated Duration of carton catcher Therapy: > 30 days PT DME Recommendation: To be determined at next level of care Outcomes Measures Prior Function - Basic Mobility Raw Score: 24 Points Prior Function - Basic Mobility % Impaired: 0% AM-PAC Basic Mobility Raw Score: 11 Points AM-PAC Basic Mobility % Impaired: 66.76% Activity Tolerance Activity Tolerance: Tolerates 20 - 30 min activity with multiple rests Therapy Precautions General Rehab Precautions: Fall risk Balance Sitting Balance - Static: Stand by assist Sitting Balance - Dynamic: Stand by assist Standing Balance - Static: Minimal assist, with device Wireless Cellular Technician - Standing Static: wheeled walker, BUE Loss of Balance- Standing Static: intermittent, posterior Standing Balance - Dynamic: Minimal assist, Moderate assist, with device Wireless Cellular Technician - Standing Dynamic: wheeled walker, BUE Loss of Balance- Standing Dynamic: intermittent, posterior Bed Mobility Rolling: Moderate assist, Head of bed elevated Supine to Sit: Moderate assist, Head of bed elevated Sit to Supine: Moderate assist, Maximal assist, Head of bed flat Wireless Cellular Technician: bedrails Skilled Intervention Provided: verbal cues, visual cues, tactile cues, environmental setup/modification, provided step by step instructions, patient education For: LE positioning, UE positioning, LE management, efficient movement, fall prevention, safe use of bedrails and/or equipment, safety during functional tasks, self-monitoring during activity, sequencing of movement Resulting in: improved activity tolerance, improved awareness, improved functional independence, improved safety, improved performance, increased upright tolerance for functional tasks Transfers Sit to Stand: Moderate assist Wireless Cellular Technician: wheeled walker, BUE Additional Transfer Trial 2: Yes Sit to Stand Trial 2: Minimal assist Wireless Cellular Technician Trial 2: wheeled walker, BUE Skilled Intervention Provided: verbal cues, tactile cues, visual cues, environmental setup/modification, patient education, provided step by step instructions For: LE positioning, UE positioning, controlled descent, efficient movement, fall prevention, safety during functional tasks, safe use of AD and/or equipment, self-monitoring during activity, sequencing of movement Resulting in: improved activity tolerance, improved awareness, improved functional independence, improved performance, improved safety, increased upright tolerance for functional tasks Gait/Locomotion Gait Assistance: Minimal assist Assistive Device: wheeled walker, BUE Distance: 2 Feet (1' forward; 1' backward) Rest Breaks: Yes Rest Break Position: seated Additional Gait Trial 2: Yes Gait Assistance Trial 2: Minimal assist Assistive Device Trial 2: wheeled walker, BUE Distance Trial 2: 2 (side stepping to HOB; pt unable to berry picker feet to advance sideways) Pattern: step to, R impaired heel strike, L impaired heel strike, R decreased step length, L decreased step length, over reliance on upper extremities, forward flexed, shuffle, decreased ranjan (steps per minute) Weight Bearing Status: able to maintain Gait Loss(es) of Balance: intermittent, posterior Environment/Terrain: closed environment, minimal to no distractions Skilled Intervention Provided: verbal cues, visual cues, environmental setup/modification, provided step by step instructions, patient education For: breathing techniques, device management and safe use of device, efficient movement, fall prevention, gait technique, improved posture, pathfinding, self-monitoring during activity Resulting in: improved activity tolerance, improved functional independence, improved performance, improved safety, increased upright tolerance for functional tasks Additional Treatment Details Pt in bed upon arrival and agreeable to tx. Pt showing decreased safety awareness and not receptive to cues for safety. Pt returned to bed, handed off to SANTIZO in room. Home Living Obtained Home Living and PLOF info from: Patient, Patient s family member Lives With: Alone Type of Home: Apartment Home Layout: One level Steps to enter home: No Bathroom Shower/Tub: Tub/shower unit Bathroom Equipment: Grab bars in shower, Hand-held showerhead, Toilet seat mail distribution scheme examiner, Tub transfer bench Bathroom Accessibility: Accessible via walker Mobility Equipment: Cane, Wheeled walker, Rollator ADL Equipment: Loss Prevention Consultant Prior Level of Function Receives Help From: Family (Assist from [id number]-een/sister) Level of Cottle - Transfers/Ambulation/Mobility: Independent with functional transfers, Independent with household ambulation, Independent with community ambulation (Walker and rollator use) Level of Cottle - ADLs: Needs assistance Bathing: Moderate assist Dressing: Maximal assist Toileting: Moderate assist Grooming: Moderate assist Feeding: Moderate assist Level of Cottle - Homemaking: Needs assistance Driving: Patient does not drive Shopping: (Groceries delivered) Vocational: Retired For complete objective data, detailed plan of care and patient education refer to: PT Evaluation flowsheet, PT Evaluation and Treatment flowsheet, PT Treatment flowsheet, patient Plan of Care, Plan of Care progress note, and Patient Education. This note stands as the current Discharge Summary upon patient discharge from the hospital or completion of Physical Therapy Plan of Care. Cosigned by Kathy Yates, PT at 12/08/2024 11:04 PM EDT Care Management Progress Note Date: 12/08/2024 Time: 2:33 PM Patient Name: Elizabeth Cisneros Date of : 1950 Discharge Plan: [facility] Discharging Transportation Plan: Ambulance is needed Discharge Plan Status: Pt has been accepted to [facility]. PAS-R completed- ID # [id number]. Precert can be started once updated therapy notes are in. Unit nurse and medical team updated. CM will continue to follow. Assessment and Background Information: SDOH Needs Addressed: Transportation Needs, Utilities Resources Provided - Transportation Needs: Added to AVS Resources Provided - Utilities: Added to AVS [facility] [place] Assessment and Plan Elizabeth Cisneros is a 74 y.o. female patient of Sj Motley MD with history of anxiety, depression, diabetes, coronary artery disease, COPD, GERD, dyslipidemia, hypertension and hypothyroidism presented as a transfer to [facility] on 12/04/2024 for generalized weakness. Generalized Weakness Frequent Falls Recent admission (10/25/24) for acute pancreatitis and pneumonia - following discharge patient was seen by PT (at home) but has recently declined their services CT head (12/03/24) - no acute intracranial findings CT pelvis w/o contrast (12/03/24) - no definitive acute fractures in either hip or bony pelvis Afebrile, WBC 5.37, Lactic acid 1.4, UA - negative Fall precautions Orthostatic vitals signs Consult Case Management, PT & OT pending Impaired coordination Per family, and did notice on physical exam 12/06 Although, patient claims Flexeril may have contributed to some of this; now de'ed Obtained MRI brain 12/06, no acute findings; consider outpatient neurology evaluation for dementia Added ST evaluation- patient declined, stated no needs Acute sinusitis Sinusitis findings suggested by MRI brain and confirmed when discussed with patient (recent post nasal drip, headache, etc) Doxycycline 100 mg BID x7 days Constipation CT pelvis w/o contrast (12/03/24) - large amount of retained feces in the rectal vault with surrounding inflammation concerning for stercoral colitis Bowel regimen Encourage high fiber diet Coronary Artery Disease Arteriosclerotic Vascular Disease Mitral Valve Prolapse EKG - sinus rhythm w/ premature supraventricular complexes Echo w/ EF 55% (10/31/24) - normal LV size and systolic function, normal wall motion, right ventricular size and systolic function are normal, left ventricular diastolic function is normal, no significant valvular heart disease is present Continue home cardiac medications: atenolol Takes Lasix PRN, which was held on admission COPD w/o Exacerbation Baseline RA - currently on RA Takes Bevespi at home, which is non-formulary here; scheduled DuoNeb Continue home nebulized budesonide BID Supplemental O2 only if SpO2<88% GERD Continue Protonix Hypertension Continue Atenolol Hypothyroidism TSH - 1.43 (10/25/24) Repeat TSH w/ reflex T4 Continue Levothyroxine Hypomagnesemia IV replacement ordered, and resumed home daily oral supplementation Repeat labs in AM Iron deficiency anemia Continue Folic Acid Resume home iron Hyponatremia, resolved Appears to be chronic in nature; Baseline Na ~133 Current Na 136 Restless Leg Syndrome Continue Remeron Anxiety/Depression Continue Venlafaxine (Pristiq substitute) Code Status: Full Code - Unverified Disposition Medically stable for discharge date: 12/06 Patient requires continued hospitalization due to: awaiting therapy evals Discharge location: family hoping for SNF placement Quality Measures DVT prophylaxis: Lovenox Payton catheter: absent Subjective No acute events noted overnight. Afebrile. Saturating well on room air. Denies complaints or needs. Review of Systems All relevant systems have been reviewed and are negative except as noted in HPI or below Objective BP 132/86 Pulse 87 Temp 98.2 F (36.8 C) (Oral) Resp 16 Ht 5' 3 Wt 54.9 kg (121 lb 0.5 oz) SpO2 94% BMI 21.44 kg/m Physical Examination General Appearance: alert; well appearing; in no acute distress HEENT: Head- normocephalic; Eyes- EOMI, sclera anicteric; Ears- hearing intact; Nose- no nasal discharge; Throat- mucous membranes moist Cardiovascular: regular rate and rhythm Respiratory: lungs clear to auscultation; without wheezes, rales or rhonchi; on room air Neurological: oriented x 3; normal speech; no focal findings or movement disorder noted Musculoskeletal: no significant deformity or tenderness to palpation Skin: normal coloration; no obvious rashes, lesions or skin breakdown Psych: normal mood and affect Results/Medications Reviewed 12/08/2024 10:28 AM Laboratory, Microbiology, Radiology, Cardiology, Medications, and Transcriptions Care Management Progress Note Date: 12/07/2024 Time: 1:38 PM Patient Name: Elizabeth Cisneros Date of : 1950 Discharge Plan: SNF Discharging Transportation Plan: Ambulance needed Discharge Plan Status: [facility] declined due to no beds, [place] care declined, Radha JAIMES communicating with pt and her son, Emery, to get more choices. CM will continue to follow. Assessment and Background Information: SDOH Needs Addressed: Transportation Needs, Utilities Resources Provided - Transportation Needs: Added to AVS Resources Provided - Utilities: Added to AVS [facility] [place] Assessment and Plan Elizabeth Cisneros is a 74 y.o. female patient of Sj Motley MD with history of anxiety, depression, diabetes, coronary artery disease, COPD, GERD, dyslipidemia, hypertension and hypothyroidism presented as a transfer to [facility] on 12/04/2024 for generalized weakness. Generalized Weakness Frequent Falls Recent admission (10/25/24) for acute pancreatitis and pneumonia - following discharge patient was seen by PT (at home) but has recently declined their services CT head (12/03/24) - no acute intracranial findings CT pelvis w/o contrast (12/03/24) - no definitive acute fractures in either hip or bony pelvis Afebrile, WBC 5.37, Lactic acid 1.4, UA - negative Fall precautions Orthostatic vitals signs Consult Case Management, PT & OT pending Impaired coordination Per family, and did notice on physical exam 12/06 Although, patient claims Flexeril may have contributed to some of this; now de'ed Obtained MRI brain 12/06, no acute findings; consider outpatient neurology evaluation for dementia Added ST evaluation Acute sinusitis Sinusitis findings suggested by MRI brain and confirmed when discussed with patient (recent post nasal drip, headache, etc) Doxycycline 100 mg BID x7 days Constipation CT pelvis w/o contrast (12/03/24) - large amount of retained feces in the rectal vault with surrounding inflammation concerning for stercoral colitis Bowel regimen Encourage high fiber diet Coronary Artery Disease Arteriosclerotic Vascular Disease Mitral Valve Prolapse EKG - sinus rhythm w/ premature supraventricular complexes Echo w/ EF 55% (10/31/24) - normal LV size and systolic function, normal wall motion, right ventricular size and systolic function are normal, left ventricular diastolic function is normal, no significant valvular heart disease is present Continue home cardiac medications: atenolol Takes Lasix PRN, which was held on admission COPD w/o Exacerbation Baseline RA - currently on RA Takes Bevespi at home, which is non-formulary here; scheduled DuoNeb Continue home nebulized budesonide BID Supplemental O2 only if SpO2<88% GERD Continue Protonix Hypertension Continue Atenolol Hypothyroidism TSH - 1.43 (10/25/24) Repeat TSH w/ reflex T4 Continue Levothyroxine Iron deficiency anemia Continue Folic Acid Resume home iron Hyponatremia, resolved Appears to be chronic in nature; Baseline Na ~133 Current Na 136 Restless Leg Syndrome Continue Remeron Anxiety/Depression Continue Venlafaxine (Pristiq substitute) Code Status: Full Code - Unverified Disposition Medically stable for discharge date: 12/06 Patient requires continued hospitalization due to: awaiting therapy evals Discharge location: family hoping for SNF placement Quality Measures DVT prophylaxis: Lovenox Payton catheter: absent Subjective No acute events noted overnight. Afebrile. Saturating well on room air. Patient doing better today. Feels that Flexeril made her feel strange, confused, and irritable yesterday. Does report recent sinus congestion, post nasal drip. Review of Systems All relevant systems have been reviewed and are negative except as noted in HPI or below Objective BP (!) 144/73 Pulse 87 Temp 98.4 F (36.9 C) (Oral) Resp 18 Ht 5' 3 Wt 54.9 kg (121 lb 0.5 oz) SpO2 96% BMI 21.44 kg/m Physical Examination General Appearance: alert; well appearing; in no acute distress HEENT: Head- normocephalic; Eyes- EOMI, sclera anicteric; Ears- hearing intact; Nose- no nasal discharge; Throat- mucous membranes moist Cardiovascular: regular rate and rhythm Respiratory: lungs clear to auscultation; without wheezes, rales or rhonchi; on room air Neurological: oriented x 3; normal speech; no focal findings or movement disorder noted Musculoskeletal: no significant deformity or tenderness to palpation Skin: normal coloration; no obvious rashes, lesions or skin breakdown Psych: normal mood and affect Results/Medications Reviewed 12/07/2024 12:25 PM Laboratory, Microbiology, Radiology, Cardiology, Medications, and Transcriptions [facility] [place] Assessment and Plan Elizabeth Cisneros is a 74 y.o. female patient of Sj Motley MD with history of anxiety, depression, diabetes, coronary artery disease, COPD, GERD, dyslipidemia, hypertension and hypothyroidism presented as a transfer to [facility] on 12/04/2024 for generalized weakness. Generalized Weakness Frequent Falls Recent admission (10/25/24) for acute pancreatitis and pneumonia - following discharge patient was seen by PT (at home) but has recently declined their services CT head (12/03/24) - no acute intracranial findings CT pelvis w/o contrast (12/03/24) - no definitive acute fractures in either hip or bony pelvis Afebrile, WBC 5.37, Lactic acid 1.4, UA - negative Fall precautions Orthostatic vitals signs Consult Case Management, PT & OT pending Impaired coordination Family notices this AM that patient is having a hard time putting pills up to her mouth, seems uncoordinated Finger to nose examination is abnormal this AM Unclear timing of onset of symptoms, so will not call stroke alert Will obtain MRI brain Consider neurology consult pending results Will also add ST evaluation Constipation CT pelvis w/o contrast (12/03/24) - large amount of retained feces in the rectal vault with surrounding inflammation concerning for stercoral colitis Bowel regimen Encourage high fiber diet Coronary Artery Disease Arteriosclerotic Vascular Disease Mitral Valve Prolapse EKG - sinus rhythm w/ premature supraventricular complexes Echo w/ EF 55% (10/31/24) - normal LV size and systolic function, normal wall motion, right ventricular size and systolic function are normal, left ventricular diastolic function is normal, no significant valvular heart disease is present Continue home cardiac medications: atenolol Takes Lasix PRN, which was held on admission COPD w/o Exacerbation Baseline RA - currently on RA Takes Bevespi at home, which is non-formulary here; scheduled DuoNeb Continue home nebulized budesonide BID Supplemental O2 only if SpO2<88% GERD Continue Protonix Hypertension Continue Atenolol Hypothyroidism TSH - 1.43 (10/25/24) Repeat TSH w/ reflex T4 Continue Levothyroxine Iron deficiency anemia Continue Folic Acid Resume home iron Hyponatremia, resolved Appears to be chronic in nature; Baseline Na ~133 Current Na 136 Restless Leg Syndrome Continue Remeron Anxiety/Depression Continue Venlafaxine (Pristiq substitute) Code Status: Full Code - Unverified Disposition Medically stable for discharge date: 12/06 Patient requires continued hospitalization due to: awaiting therapy evals Discharge location: family hoping for SNF placement Quality Measures DVT prophylaxis: Lovenox Payton catheter: absent Subjective No acute events noted overnight. Afebrile. Saturating well on room air. Had a headache this AM, medicated. Will work with therapies today. Review of Systems All relevant systems have been reviewed and are negative except as noted in HPI or below Objective BP 133/79 Pulse 90 Temp 98.4 F (36.9 C) (Oral) Resp 16 Ht 5' 3 Wt 54.9 kg (121 lb 0.5 oz) SpO2 92% BMI 21.44 kg/m Physical Examination General Appearance: alert; well appearing; in no acute distress HEENT: Head- normocephalic; Eyes- EOMI, sclera anicteric; Ears- hearing intact; Nose- no nasal discharge; Throat- mucous membranes moist Cardiovascular: regular rate and rhythm Respiratory: respirations are unlabored, on room air Neurological: oriented x 3; normal speech; no focal findings or movement disorder noted Musculoskeletal: no significant deformity or tenderness to palpation Skin: normal coloration; no obvious rashes, lesions or skin breakdown Psych: normal mood and affect Results/Medications Reviewed 12/06/2024 9:53 AM Laboratory, Microbiology, Radiology, Cardiology, Medications, and Transcriptions Nutrition Care Initial Assessment Reason for visit: Nursing Referral: the patient has experienced a decreased appetite over the last month Nutrition Diagnosis: No Nutrition Diagnosis at this time Nutrition Intervention Meal rounds Meals and Snacks Nutrition Prescription: Diet:Continue Cardiac Nutrition Goals: Tolerate diet with PO intakes >75% most meals Start Date:12/05/2024 Expected End Date:12/11/2024 Nutrition Education: No needs at this time Assessment: admitted with generalized weakness Pertinent clinical information: seen at breakfast(12/05) Past Medical History: Diagnosis Date Anemia 03/2016 Anxiety Arrhythmia Arthritis Asthma ASVD (arteriosclerotic vascular disease) Bruises easily Carpal tunnel syndrome Cataracts, bilateral Cervical cancer (HCC) 06/1991 Clostridium difficile infection 1999 COPD (chronic obstructive pulmonary disease) (HCC) Coronary artery disease Depression Diabetes mellitus (HCC) 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 Watters SINUS SURGERY 12/30/2019 balloon sinuplasty - Dr. Key SKIN BIOPSY TONSILLECTOMY TRIGGER FINGER RELEASE Right 03/24/2018 RELEASE A1 TOD LEFT MIDDLE,RING, AND SMALL FINGERS WITH CORTISONE INJECTION RIGHT MIDDLE FINGER A1 TOD; Surgeon: Yonas Nguyen MD TUBAL LIGATION Height: 5' 3 Current weight: 54.9 kg (121 lb 0.5 oz) BMI Body mass index is 21.44 kg/m . Weight hx: Wt Readings from Last 10 Encounters: 12/04/24 54.9 kg (121 lb 0.5 oz) 12/03/24 53.5 kg (118 lb) 11/16/24 54.4 kg (120 lb) 10/31/24 58 kg (127 lb 14.4 oz) 10/27/24 55.6 kg (122 lb 9.2 oz) 10/24/24 53.5 kg (118 lb) 10/13/24 58.1 kg (128 lb) 09/30/24 59 kg (130 lb) 07/12/24 62.1 kg (137 lb) 06/15/24 66.7 kg (147 lb) Current diet order: Diet: Cardiac Recent intake: 40-50% of breakfast(12/05) Current intake likely does not meet estimated needs Barriers to adequate p.o. intakes: No barriers identified Nutrition Related Allergies/Intolerances: No Nutrition Related Allergies noted Cultural or Baptism Dietary Needs :No Cultural or Baptism Dietary needs noted Patient/family comments: assisted with menu Difficulty Chewing or Swallowing: No Skin Integrity: Intact GI Function: WDL Fluid Status: WNL Physical Appearance: No signs and symptoms of malnutrition noted Labs: Recent Labs 12/04/24 0647 12/05/24 0537 NA 136 133* K 3.9 3.7 BICARB 25 26 CL 99 97* GLUCOSE 134* 130* BUN 10 9 CREATININE 0.61 0.65 MG 1.6 -- PHOS 4.2* -- TRIG 135 -- ALBUMIN 3.4 -- Recent Labs 12/04/24 0647 12/05/24 0537 GLUCOSE 134* 130* Lab Results Component Value Date HGBA1C 6.0 (H) 10/25/2024 Home Medications Reviewed: Yes Scheduled Meds: atenoloL 50 mg Oral BID budesonide 0.5 mg Nebulization BID enoxaparin (LOVENOX) injection 30 mg Subcutaneous Daily folic acid 1 mg Oral Daily ipratropium-albuteroL 3 mL Inhalation Q6H BISHOP levothyroxine 75 mcg Oral QAM loratadine 10 mg Oral Daily mirtazapine 45 mg Oral Nightly montelukast 10 mg Oral Nightly pantoprazole 40 mg Oral Daily polyethylene glycol 17 g Oral Daily senna 1 tablet Oral BID sodium chloride (PF) 5 mL Intravenous Q8H BISHOP venlafaxine 150 mg Oral Daily with breakfast Continuous Infusions: Nutrient Depleting Medications: Loop Diuretics Estimated Energy Needs Total Energy Estimated Needs: 1500kcal Method for Estimating Needs: 28kcal/kg Total Protein Estimated Needs: 60gm Method for Estimating Needs: 1.1gm/kg Ricardo Gutierrez RD [facility] [place] Assessment and Plan Elizabeth Cisneros is a 74 y.o. female patient of Sj Motley MD with history of anxiety, depression, diabetes, coronary artery disease, COPD, GERD, dyslipidemia, hypertension and hypothyroidism presented as a transfer to [facility] on 12/04/2024 for generalized weakness. Generalized Weakness Frequent Falls Recent admission (10/25/24) for acute pancreatitis and pneumonia - following discharge patient was seen by PT (at home) but has recently declined their services CT head (12/03/24) - no acute intracranial findings CT pelvis w/o contrast (12/03/24) - no definitive acute fractures in either hip or bony pelvis Afebrile, WBC 5.37, Lactic acid 1.4, UA - negative Fall precautions Orthostatic vitals signs Consult Case Management, PT & Susan pending Constipation CT pelvis w/o contrast (12/03/24) - large amount of retained feces in the rectal vault with surrounding inflammation concerning for stercoral colitis Bowel regimen Encourage high fiber diet Hold Ferrous Sulfate Coronary Artery Disease Arteriosclerotic Vascular Disease Mitral Valve Prolapse EKG - sinus rhythm w/ premature supraventricular complexes Echo w/ EF 55% (10/31/24) - normal LV size and systolic function, normal wall motion, right ventricular size and systolic function are normal, left ventricular diastolic function is normal, no significant valvular heart disease is present COPD w/o Exacerbation Baseline RA - currently on RA Continue Bevespi Aerosphere & Pulmicort Continue Claritin & Singulair Was placed on oxygen in the night; will try to wean GERD Continue Protonix Hyperlipidemia Denies current medications Lipid panel - pending Hypertension Continue Atenolol Hypothyroidism TSH - 1.43 (10/25/24) Repeat TSH w/ reflex T4 Continue Levothyroxine Iron deficiency anemia Continue Folic Acid Hold Ferrous Sulfate d/t constipation Chronic Hyponatremia Sodium - pending Restless Leg Syndrome Continue Remeron Anxiety/Depression Continue Venlafaxine (Pristiq substitute) Discharge Planning Medically Stable for Discharge Date: 12-06 Patient requires continued hospitalization due to: PT OT pending Discharge Location: home Quality Measures DVT Prophylaxis: lovenox Payton Catheter: absent Subjective Requests heparin be changed to lovenox; discussed the rest of the plan for today Objective BP 131/86 Pulse 88 Temp 97.6 F (36.4 C) (Oral) Resp 16 Ht 5' 3 Wt 54.9 kg (121 lb 0.5 oz) SpO2 93% BMI 21.44 kg/m Physical Examination General Appearance: alert; acutely ill appearing; in mild acute distress HEENT: Head- normocephalic; Eyes- EOMI, sclera anicteric; Throat- mucous membranes moist Cardiovascular: regular rate and rhythm; normal S1, S2; no murmurs, rubs, clicks or gallops; peripheral edema absent Respiratory: lungs clear to auscultation; without wheezes, rales or rhonchi; on nasal cannula Abdomen: soft, non-tender, non-distended Neurological: oriented x 3; normal speech; no focal findings or movement disorder noted Musculoskeletal: no significant deformity or tenderness to palpation Skin: normal coloration Psych: normal mood and affect documented in this encounter [place] [facility] Plan of care note Problem: Falls, Risk of Goal: Absence of falls Outcome: Completed Goal: Absence of physical injury Outcome: Completed Problem: Pain Goal: Reduced pain sensation Outcome: Completed Goal: Control of acute pain to acceptable level Outcome: Completed Goal: Able to cope with pain Outcome: Completed Goal: Able to achieve maximum level of physical functioning Outcome: Completed Goal: Able to achieve maximum level of psychosocial functioning Outcome: Completed Problem: Actual or potential alteration in health Goal: Absence of healthcare acquired conditions Outcome: Completed Goal: Knowledge of Interdisciplinary Plan of Care Outcome: Completed Goal: Knowledge of Enviroment Outcome: Completed Problem: Pressure Injury, Risk of Goal: Absence of pressure injury Outcome: Completed [facility] 12-13-2024 Miscellaneous Notes Problem: Falls, Risk of Goal: Absence of falls Outcome: Completed Goal: Absence of physical injury Outcome: Completed Problem: Pain Goal: Reduced pain sensation Outcome: Completed Goal: Control of acute pain to acceptable level Outcome: Completed Goal: Able to cope with pain Outcome: Completed Goal: Able to achieve maximum level of physical functioning Outcome: Completed Goal: Able to achieve maximum level of psychosocial functioning Outcome: Completed Problem: Actual or potential alteration in health Goal: Absence of healthcare acquired conditions Outcome: Completed Goal: Knowledge of Interdisciplinary Plan of Care Outcome: Completed Goal: Knowledge of Enviroment Outcome: Completed Problem: Pressure Injury, Risk of Goal: Absence of pressure injury Outcome: Completed Pt feels nauseated and does not feel she can take her aerosol therapy at this time. Problem: Falls, Risk of Goal: Absence of falls Outcome: Partially Met Goal: Absence of physical injury Outcome: Partially Met Problem: Pain Goal: Reduced pain sensation Outcome: Partially Met Goal: Control of acute pain to acceptable level Outcome: Partially Met Goal: Able to cope with pain Outcome: Partially Met Goal: Able to achieve maximum level of physical functioning Outcome: Partially Met Goal: Able to achieve maximum level of psychosocial functioning Outcome: Partially Met Problem: Actual or potential alteration in health Goal: Absence of healthcare acquired conditions Outcome: Partially Met Goal: Knowledge of Interdisciplinary Plan of Care Outcome: Partially Met Goal: Knowledge of Enviroment Outcome: Partially Met Problem: Pressure Injury, Risk of Goal: Absence of pressure injury Outcome: Partially Met Problem: Falls, Risk of Goal: Absence of falls Outcome: Partially Met Goal: Absence of physical injury Outcome: Partially Met Problem: Pain Goal: Reduced pain sensation Outcome: Partially Met Goal: Control of acute pain to acceptable level Outcome: Partially Met Goal: Able to cope with pain Outcome: Partially Met Goal: Able to achieve maximum level of physical functioning Outcome: Partially Met Goal: Able to achieve maximum level of psychosocial functioning Outcome: Partially Met Problem: Actual or potential alteration in health Goal: Absence of healthcare acquired conditions Outcome: Partially Met Goal: Knowledge of Interdisciplinary Plan of Care Outcome: Partially Met Goal: Knowledge of Enviroment Outcome: Partially Met Problem: Pressure Injury, Risk of Goal: Absence of pressure injury Outcome: Partially Met Problem: Falls, Risk of Goal: Absence of falls Outcome: Partially Met Goal: Absence of physical injury Outcome: Partially Met Problem: Pain Goal: Reduced pain sensation Outcome: Partially Met Goal: Control of acute pain to acceptable level Outcome: Partially Met Goal: Able to cope with pain Outcome: Partially Met Goal: Able to achieve maximum level of physical functioning Outcome: Partially Met Goal: Able to achieve maximum level of psychosocial functioning Outcome: Partially Met Problem: Actual or potential alteration in health Goal: Absence of healthcare acquired conditions Outcome: Partially Met Goal: Knowledge of Interdisciplinary Plan of Care Outcome: Partially Met Goal: Knowledge of Enviroment Outcome: Partially Met Problem: Pressure Injury, Risk of Goal: Absence of pressure injury Outcome: Partially Met Problem: Falls, Risk of Goal: Absence of falls Outcome: Partially Met Goal: Absence of physical injury Outcome: Partially Met Problem: Pain Goal: Reduced pain sensation Outcome: Partially Met Goal: Control of acute pain to acceptable level Outcome: Partially Met Goal: Able to cope with pain Outcome: Partially Met Goal: Able to achieve maximum level of physical functioning Outcome: Partially Met Goal: Able to achieve maximum level of psychosocial functioning Outcome: Partially Met Problem: Actual or potential alteration in health Goal: Absence of healthcare acquired conditions Outcome: Partially Met Goal: Knowledge of Interdisciplinary Plan of Care Outcome: Partially Met Goal: Knowledge of Enviroment Outcome: Partially Met Problem: Pressure Injury, Risk of Goal: Absence of pressure injury Outcome: Partially Met Problem: Falls, Risk of Goal: Absence of falls Outcome: Partially Met Goal: Absence of physical injury Outcome: Partially Met Problem: Pain Goal: Reduced pain sensation Outcome: Partially Met Goal: Control of acute pain to acceptable level Outcome: Partially Met Goal: Able to cope with pain Outcome: Partially Met Goal: Able to achieve maximum level of physical functioning Outcome: Partially Met Goal: Able to achieve maximum level of psychosocial functioning Outcome: Partially Met Problem: Actual or potential alteration in health Goal: Absence of healthcare acquired conditions Outcome: Partially Met Goal: Knowledge of Interdisciplinary Plan of Care Outcome: Partially Met Goal: Knowledge of Enviroment Outcome: Partially Met Problem: Pressure Injury, Risk of Goal: Absence of pressure injury Outcome: Partially Met [facility] Utilization Review Notes HISTORY OF PRESENT ILLNESS:4 y.o. female patient of Sj Motley MD with history of anxiety, depression, diabetes, coronary artery disease, COPD, GERD, dyslipidemia, hypertension and hypothyroidism presented as a transfer to [facility] on 12/04/2024 for generalized weakness. Patient c/o worsening generalized weakness resulting in decreased ability to ambulate and increased falls. Patient's last fall was 11/30/24 in which she struck her head without loss of consciousness. Patient states her falls are precipitated by a loss of balance noting her bilateral hand grasp is weak making it hard to stay steady/balanced with her walker . Admit to Observation on 12/03 changed to Inpatient on 12/09 . Patient with Hypomagnesemia require replacement. VITAL SIGNS: 12/03 172/699-95-60-97.9-96 percent with RA 12/04 158/86-16-83-98.4-92 percent with RA 12/05 121/64-16-70-98.8-91 percent with RA 12/06 122/77-16-92-98.1-93 percent with RA 12/07 144/84-16-74-98.0-97 percent with RA 12/09 147/96-16-77-98.2-96 percent with RA EKG:None ordered WEIGHT:None in Chart LABS: (Abnormal / Relevant): ntains abnormal data Magnesium Level Component Ref Range & Units 10:10 (12/09/24) 1 d ago (12/08/24) 5 d ago (12/04/24) 1 mo ago (10/25/24) 1 mo ago (10/25/24) Magnesium 1.6 - 2.4 mg/dL 1.4 Low 1.4 Low 1.6 1.7 1.8 Basic Metabolic Panel Component Ref Range & Units 3 d ago (12/06/24) 4 d ago (12/05/24) 5 d ago (12/04/24) Sodium 135 - 145 mmol/L 135 133 Low 136 Potassium 3.5 - 5.1 mmol/L 3.9 3.7 3.9 Chloride 98 - 108 mmol/L 98 97 Low 99 Bicarbonate 21 - 32 mmol/L 25 26 25 Anion Gap 10 - 20 mmol/L 16 14 16 Glucose 65 - 99 mg/dL 130 High 130 High 134 High BUN 8 - 25 mg/dL 7 Low 9 10 Creatinine 0.60 - 1.10 mg/dL 0.54 Low 0.65 0.61 eGFR >=60 mL/min/1.73 m2 96 91 CM 93 CM BUN/Creatinine Ratio 10.0 - 20.0 13.0 13.8 16.4 Calcium 8.4 - 10.2 mg/dL 9.8 9.2 9.7 CBC Component Ref Range & Units 4 d ago (12/05/24) 5 d ago (12/04/24) 6 d ago (12/03/24) WBC 4.50 - 11.00 K/mcL 4.96 5.64 5.37 RBC 4.00 - 5.20 M/mcL 3.65 Low 3.99 Low 4.14 Hemoglobin 12.0 - 16.0 g/dL 12.0 12.8 13.3 Hematocrit 36.0 - 46.0 % 35.8 Low 38.8 40.3 MCV 80.0 - 100.0 fL 98.1 97.2 97.3 MCH 26.0 - 34.0 pg 32.9 32.1 32.1 MCHC 31.0 - 37.0 g/dL 33.5 33.0 33.0 Platelets 150 - 400 K/mcL 210 251 264 Phosphorus Component Ref Range & Units 5 d ago (12/04/24) 1 mo ago (10/25/24) 1 mo ago (10/25/24) Phosphorus 2.8 - 4.1 mg/dL 4.2 High 2.5 Low Venous Blood Gases with Full Panel Liver Panel Plus Component Ref Range & Units 12/03 Albumin 3.2 - 5.2 g/dL 3.7 Alkaline Phosphatase 40 - 150 U/L 76 ALT (SGPT) 0 - 40 U/L 25 AST (SGOT) 0 - 45 U/L 34 Bilirubin, Total 0.0 - 1.3 mg/dL 0.6 Total Protein 6.0 - 8.0 g/dL 6.8 Amylase 25 - 115 U/L 44 GGT 7 - 33 U/L 60 High IMAGING: (Abnormal / Relevant): MR Brain Without Contrast (Final result) Result time 12/06/24 13:52:27 Impression: 1. No acute intracranial abnormality within limitations study. 2. Mild cerebral volume loss with mild chronic microvascular ischemic changes. 3. Significant paranasal sinus disease. Clinical correlation sinusitis is recommended. ED TX:none DX:ASSESSMENT / PLAN: Generalized Weakness Frequent Falls Recent admission (10/25/24) for acute pancreatitis and pneumonia - following discharge patient was seen by PT (at home) but has recently declined their services CT head (12/03/24) - no acute intracranial findings CT pelvis w/o contrast (12/03/24) - no definitive acute fractures in either hip or bony pelvis Afebrile, WBC 5.37, Lactic acid 1.4, UA - negative Fall precautions Orthostatic vitals signs Consult Case Management, PT & OT Constipation CT pelvis w/o contrast (12/03/24) - large amount of retained feces in the rectal vault with surrounding inflammation concerning for stercoral colitis Bowel regimen-(12/09)although patient has been refusing Will check KUB for re-assessment 12/09, as there are no documented BM's since admission Encourage high fiber diet Hold Ferrous Sulfate Impaired coordination Family notices this AM that patient is having a hard time putting pills up to her mouth, seems uncoordinated Finger to nose examination is abnormal this AM Unclear timing of onset of symptoms, so will not call stroke alert Will obtain MRI brain Consider neurology consult pending results Will also add ST evaluation (12/07) Although, patient claims Flexeril may have contributed to some of this; now dc'ed Obtained MRI brain 12/06, no acute findings; consider outpatient neurology evaluation for dementia Added ST evaluation Acute sinusitis (12/07) Sinusitis findings suggested by MRI brain and confirmed when discussed with patient (recent post nasal drip, headache, etc) Doxycycline 100 mg BID x7 days (12/08) Hypomagnesemia IV replacement ordered, and resumed home daily oral supplementation Repeat labs in AM Coronary Artery Disease Arteriosclerotic Vascular Disease Mitral Valve Prolapse EKG - sinus rhythm w/ premature supraventricular complexes Echo w/ EF 55% (10/31/24) - normal LV size and systolic function, normal wall motion, right ventricular size and systolic function are normal, left ventricular diastolic function is normal, no significant valvular heart disease is present (12/06) Continue home cardiac medications: atenolol Takes Lasix PRN, which was held on admission COPD w/o Exacerbation Baseline RA - currently on RA Continue Bevespi Aerosphere & Pulmicort Continue Claritin & Singulair (12/05) Was placed on oxygen in the night; will try to wean (12/06) Takes Bevespi at home, which is non-formulary here; scheduled DuoNeb Continue home nebulized budesonide BID Supplemental O2 only if SpO2<88% GERD Continue Protonix Hyperlipidemia Denies current medications Lipid panel - pending Hypertension Continue Atenolol Hypothyroidism TSH - 1.43 (10/25/24) Repeat TSH w/ reflex T4 Continue Levothyroxine Iron deficiency anemia Continue Folic Acid Hold Ferrous Sulfate d/t constipation Chronic Hyponatremia Sodium - pending (12/06) Hyponatremia, resolved Appears to be chronic in nature; Baseline Na ~133 Current Na 136 Restless Leg Syndrome Continue Remeron Anxiety/Depression Continue Venlafaxine (Pristiq substitute) MEDS / ORDERS: vital q 8 hrs, Hepwell, strict I and O, Tele, 02 supplement prn, PT/OT FRANCINE haley on 12/09, continue to follow BMP and Mg Level, [place] Nebs q 6 hrs, IV Mag given on 12/08, 12/09, percodet prn, DISPO: SNF Problem: Falls, Risk of Goal: Absence of falls Outcome: Partially Met Goal: Absence of physical injury Outcome: Partially Met Problem: Pain Goal: Reduced pain sensation Outcome: Partially Met Goal: Control of acute pain to acceptable level Outcome: Partially Met Goal: Able to cope with pain Outcome: Partially Met Goal: Able to achieve maximum level of physical functioning Outcome: Partially Met Goal: Able to achieve maximum level of psychosocial functioning Outcome: Partially Met Problem: Actual or potential alteration in health Goal: Absence of healthcare acquired conditions Outcome: Partially Met Goal: Knowledge of Interdisciplinary Plan of Care Outcome: Partially Met Goal: Knowledge of Enviroment Outcome: Partially Met Problem: Pressure Injury, Risk of Goal: Absence of pressure injury Outcome: Partially Met Problem: Falls, Risk of Goal: Absence of falls Outcome: Partially Met Goal: Absence of physical injury Outcome: Partially Met Problem: Pain Goal: Reduced pain sensation Outcome: Partially Met Goal: Control of acute pain to acceptable level Outcome: Partially Met Goal: Able to cope with pain Outcome: Partially Met Goal: Able to achieve maximum level of physical functioning Outcome: Partially Met Goal: Able to achieve maximum level of psychosocial functioning Outcome: Partially Met Problem: Actual or potential alteration in health Goal: Absence of healthcare acquired conditions Outcome: Partially Met Goal: Knowledge of Interdisciplinary Plan of Care Outcome: Partially Met Goal: Knowledge of Enviroment Outcome: Partially Met Problem: Pressure Injury, Risk of Goal: Absence of pressure injury Outcome: Partially Met SPEECH THERAPY VISIT VARIANCE NOTE Attempted to see patient at this time, but unable secondary to: Visit Variance: Refused. Pt indicated she was not having any difficulty swallowing and was to be discharged today (RN reports this is not the case). Discussed pt comment from 12/06 that she was aspirating. Pt stated anyone would aspirate when they aren't positioned appropriately, I can't eat all scrunched up in this bed. Educated that pt would be repositioned for optimal safety to which she continued to refuse. RN reports pt took meds well one at a time with no other overt clinical indications of penetration or aspiration this date. Will discontinue order at this time with RN in agreement to re-consult should difficulties arise. Will follow up as appropriate. Problem: Falls, Risk of Goal: Absence of falls Outcome: Partially Met Goal: Absence of physical injury Outcome: Partially Met Problem: Pain Goal: Reduced pain sensation Outcome: Partially Met Goal: Control of acute pain to acceptable level Outcome: Partially Met Goal: Able to cope with pain Outcome: Partially Met Goal: Able to achieve maximum level of physical functioning Outcome: Partially Met Goal: Able to achieve maximum level of psychosocial functioning Outcome: Partially Met Problem: Actual or potential alteration in health Goal: Absence of healthcare acquired conditions Outcome: Partially Met Goal: Knowledge of Interdisciplinary Plan of Care Outcome: Partially Met Goal: Knowledge of Enviroment Outcome: Partially Met Problem: Pressure Injury, Risk of Goal: Absence of pressure injury Outcome: Partially Met Problem: Falls, Risk of Goal: Absence of falls Outcome: Partially Met Goal: Absence of physical injury Outcome: Partially Met Problem: Pain Goal: Reduced pain sensation Outcome: Partially Met Goal: Control of acute pain to acceptable level Outcome: Partially Met Goal: Able to cope with pain Outcome: Partially Met Goal: Able to achieve maximum level of physical functioning Outcome: Partially Met Goal: Able to achieve maximum level of psychosocial functioning Outcome: Partially Met Problem: Actual or potential alteration in health Goal: Absence of healthcare acquired conditions Outcome: Partially Met Goal: Knowledge of Interdisciplinary Plan of Care Outcome: Partially Met Goal: Knowledge of Enviroment Outcome: Partially Met Problem: Pressure Injury, Risk of Goal: Absence of pressure injury Outcome: Partially Met Physical Therapy Plan of Care Certification Note Medicare billing rules require the provider to review and certify the physical therapy plan of care for patients in observation or outpatient status. This co-signature is to electronically certify that the above-named patient, who is under my care, requires skilled therapy services as described in the treatment plan below. I further certify that the services outlined in this plan are skilled and medically necessary. I have reviewed this plan of care for rehabilitation services and recommend that these services continue until the patient is discharged from this hospitalization or the patient is discharged from physical therapy services. Coded Admission Diagnosis Generalized weakness [R53.1] PT Functional Diagnosis: R26.2 Difficulty in walking, not elsewhere classified PT Goals Encounter Problems (Active) Problem: Impaired Strength Dates: Start: 12/06/24 Disciplines: PT Goal: PT- Strength Other Dates: Start: 12/06/24 Expected End: 12/13/24 Description: PT- Patient to be independent with HEP to improve functional mobility, strength, and safety Disciplines: PT Intervention: Education, Therapeutic exercise Frequency: PRN Dates: Start: 12/06/24 Problem: Mobility - Impaired Dates: Start: 12/06/24 Disciplines: PT Goal: pt- bed mobility Dates: Start: 12/06/24 Expected End: 12/13/24 Description: PT - Patient will perform bed mobility with contact guard to improve functional mobility and safety. Disciplines: PT Goal: PT- sit to stand transfer Dates: Start: 12/06/24 Expected End: 12/13/24 Description: PT - Patient will perform sit to/from stand transfer with moderate assist to improve functional mobility and safety. Disciplines: PT Goal: PT- stand-pivot transfer Dates: Start: 12/06/24 Expected End: 12/13/24 Description: PT - Patient will perform stand-pivot transfer with moderate assist to improve functional mobility and safety. Disciplines: PT Goal: PT- static balance Dates: Start: 12/06/24 Expected End: 12/13/24 Description: PT - Patient will perform sitting and standing static balance activities with device with stand by assist, contact guard to improve functional mobility and safety. Disciplines: PT Goal: PT- dynamic balance Dates: Start: 12/06/24 Expected End: 12/13/24 Description: PT - Patient will perform sitting dynamic balance activities with device with supervision to improve functional mobility and safety. Disciplines: PT Intervention: Education, Assistive device training Frequency: PRN Dates: Start: 12/06/24 Intervention: Education, Bed mobility training Frequency: PRN Dates: Start: 12/06/24 Intervention: Education, Balance training Frequency: PRN Dates: Start: 12/06/24 Description: REMINDER(s):Reinforce education provided by Physical Therapy related to balance training. Intervention: Education, Therapeutic exercise Frequency: PRN Dates: Start: 12/06/24 Intervention: Education, Transfer training Frequency: PRN Dates: Start: 12/06/24 Intervention: Education, Precautions Frequency: PRN Dates: Start: 12/06/24 Frequency of Treatment: 3 days per week This physical Therapy Plan of Care will be carried out until: 1.) The PT plan has been resolved or 2.) The patient is discharged from the acute care hospital Cosigned by Sallie Stewart CNP at 12/07/2024 9:50 PM EDT SPEECH THERAPY VISIT VARIANCE NOTE Attempted to see patient at this time, but unable secondary to: Visit Variance: Patient reported that she has been aspirating, however upon further prompting for details, patient closed her eyes and stopped responding. Patient eventually stated that she needed a time out. SENIOR PROFESSIONAL SERVICES CONSULTANT exited room. Will follow up as appropriate. Occupational Therapy Plan of Care Certification Note Medicare billing rules require the provider to review and certify the occupational therapy plan of care for patients in observation or outpatient status. This co-signature is to electronically certify that the above-named patient, who is under my care, requires skilled therapy services as described in the treatment plan below. I further certify that the services outlined in this plan are skilled and medically necessary. I have reviewed this plan of care for rehabilitation services and recommend that these services continue until the patient is discharged from this hospitalization or the patient is discharged from occupational therapy services. Coded Admission Diagnosis Generalized weakness [R53.1] OT Functional Diagnosis: Z73.6 Disability affecting daily living OT Goals Encounter Problems (Active) Problem: Impaired Neurologic Function Dates: Start: 12/06/24 Disciplines: OT Goal: OT- static standing balance Dates: Start: 12/06/24 Expected End: 12/13/24 Description: OT - Patient will complete static standing balance activity (tolerating > 1min standing) with moderate assist in preparation for ADL's. Disciplines: OT Goal: OT- in-hand manipulation/coordination Dates: Start: 12/06/24 Expected End: 12/13/24 Description: OT - Patient will increase in-hand manipulation/coordination with minimal assist to improve ADL's. Disciplines: OT Intervention: Education, ADL/IADL retraining Frequency: PRN Dates: Start: 12/06/24 Intervention: Education, Cognitive reeducation Frequency: PRN Dates: Start: 12/06/24 Intervention: Education, compensatory technique training Frequency: PRN Dates: Start: 12/06/24 Intervention: Education, functional mobility training Frequency: PRN Dates: Start: 12/06/24 Intervention: Education, neuromuscular reeducation Frequency: PRN Dates: Start: 12/06/24 Intervention: Education, visual/perceptual reeducation Frequency: PRN Dates: Start: 12/06/24 Problem: Impaired Strength Dates: Start: 12/06/24 Disciplines: OT Goal: OT- AAROM Dates: Start: 12/06/24 Expected End: 12/13/24 Description: OT - Patient will participate in AAROM in order to increase joint ROM in bilateral upper extremities with contact guard in preparation for ADL's. Disciplines: OT Goal: OT- Strength Other Dates: Start: 12/06/24 Expected End: 12/13/24 Description: OT- Patient will complete UB HEP to improve strength in BUEs. Disciplines: OT Intervention: Education, compensatory technique training Frequency: PRN Dates: Start: 12/06/24 Intervention: Education, Therapeutic exercise Frequency: PRN Dates: Start: 12/06/24 Problem: Mobility - Impaired Dates: Start: 12/06/24 Disciplines: OT Goal: OT- bed mobility Dates: Start: 12/06/24 Expected End: 12/13/24 Description: OT - Patient will complete bed mobility with minimal assist in preparation of ADL's. Disciplines: OT Goal: OT- toilet transfer Dates: Start: 12/06/24 Expected End: 12/13/24 Description: OT - Patient will complete toilet transfer with moderate assist to BSC in preparation for ADL's. Disciplines: OT Intervention: Education, ADL/IADL retraining Frequency: PRN Dates: Start: 12/06/24 Intervention: Education, Cognitive reeducation Frequency: PRN Dates: Start: 12/06/24 Intervention: Education, compensatory technique training Frequency: PRN Dates: Start: 12/06/24 Intervention: Education, functional mobility training Frequency: PRN Dates: Start: 12/06/24 Intervention: Education, adaptive equipment training Frequency: PRN Dates: Start: 12/06/24 Description: REMINDER(s):Provide instruction on adaptive equipment. Intervention: Education, neuromuscular reeducation Frequency: PRN Dates: Start: 12/06/24 Intervention: Education, Therapeutic exercise Frequency: PRN Dates: Start: 12/06/24 Intervention: Education, visual/perceptual reeducation Frequency: PRN Dates: Start: 12/06/24 Problem: Self-care Deficit Dates: Start: 12/06/24 Disciplines: OT Goal: OT- feeding Dates: Start: 12/06/24 Expected End: 12/13/24 Description: OT - Patient will complete self-feeding with minimal assist using adaptive utensils to improve self care function. Disciplines: OT Goal: OT- grooming Dates: Start: 12/06/24 Expected End: 12/13/24 Description: OT - Patient will complete grooming with moderate assist while seated EOB to improve self care function. Disciplines: OT Goal: OT- UB dressing Dates: Start: 12/06/24 Expected End: 12/13/24 Description: OT - Patient will complete UB dressing with minimal assist to improve self care function. Disciplines: OT Goal: OT- LB dressing Dates: Start: 12/06/24 Expected End: 12/13/24 Description: OT - Patient will complete LB dressing with maximum assist to improve self care function. Disciplines: OT Goal: OT- toileting Dates: Start: 12/06/24 Expected End: 12/13/24 Description: OT - Patient will complete toileting with minimal assist to improve self care function. Disciplines: OT Intervention: Education, adaptive equipment training Frequency: PRN Dates: Start: 12/06/24 Description: REMINDER(s):Provide instruction on adaptive equipment. Intervention: Education, ADL/IADL retraining Frequency: PRN Dates: Start: 12/06/24 Intervention: Education, Cognitive reeducation Frequency: PRN Dates: Start: 12/06/24 Intervention: Education, compensatory technique training Frequency: PRN Dates: Start: 12/06/24 Intervention: Education, neuromuscular reeducation Frequency: PRN Dates: Start: 12/06/24 Intervention: Education, Therapeutic exercise Frequency: PRN Dates: Start: 12/06/24 Intervention: Education, visual/perceptual reeducation Frequency: PRN Dates: Start: 12/06/24 Frequency of Treatment: 2 days per week This Occupational Therapy Plan of Care will be carried out until: 1.) The OT plan has been resolved or 2.) The patient is discharged from the acute care hospital Cosigned by Heather Zaman PA-C at 12/06/2024 3:30 PM EDT Problem: Falls, Risk of Goal: Absence of falls Outcome: Partially Met Goal: Absence of physical injury Outcome: Partially Met Problem: Pain Goal: Reduced pain sensation Outcome: Partially Met Goal: Control of acute pain to acceptable level Outcome: Partially Met Goal: Able to cope with pain Outcome: Partially Met Goal: Able to achieve maximum level of physical functioning Outcome: Partially Met Goal: Able to achieve maximum level of psychosocial functioning Outcome: Partially Met Problem: Actual or potential alteration in health Goal: Absence of healthcare acquired conditions Outcome: Partially Met Goal: Knowledge of Interdisciplinary Plan of Care Outcome: Partially Met Goal: Knowledge of Enviroment Outcome: Partially Met Problem: Pressure Injury, Risk of Goal: Absence of pressure injury Outcome: Partially Met Problem: Falls, Risk of Goal: Absence of falls Outcome: Partially Met Goal: Absence of physical injury Outcome: Partially Met Problem: Pain Goal: Reduced pain sensation Outcome: Partially Met Goal: Control of acute pain to acceptable level Outcome: Partially Met Goal: Able to cope with pain Outcome: Partially Met Goal: Able to achieve maximum level of physical functioning Outcome: Partially Met Goal: Able to achieve maximum level of psychosocial functioning Outcome: Partially Met Problem: Actual or potential alteration in health Goal: Absence of healthcare acquired conditions Outcome: Partially Met Goal: Knowledge of Interdisciplinary Plan of Care Outcome: Partially Met Goal: Knowledge of Enviroment Outcome: Partially Met Problem: Pressure Injury, Risk of Goal: Absence of pressure injury Outcome: Partially Met Pt having break through pain at this time. Notified hugo Guerrero order to increase frequency of percocet to Q4H PRN. Pt unable to stand up right long enough to do orthostatic vitals. Orlando Lawson notified. Reviewed pt plan set forth by Sallie Stewart and agree with her plan. Evaluated pt in her room . She is having pain from her recent falls. Ordered oxycodone per her request . [facility]MS will follow PT OT and telehealth case manager evaluations Problem: Falls, Risk of Goal: Absence of falls Outcome: Partially Met Goal: Absence of physical injury Outcome: Partially Met Problem: Pain Goal: Reduced pain sensation Outcome: Partially Met Goal: Control of acute pain to acceptable level Outcome: Partially Met Goal: Able to cope with pain Outcome: Partially Met Goal: Able to achieve maximum level of physical functioning Outcome: Partially Met Goal: Able to achieve maximum level of psychosocial functioning Outcome: Partially Met Problem: Actual or potential alteration in health Goal: Absence of healthcare acquired conditions Outcome: Partially Met Goal: Knowledge of Interdisciplinary Plan of Care Outcome: Partially Met Goal: Knowledge of Enviroment Outcome: Partially Met Problem: Pressure Injury, Risk of Goal: Absence of pressure injury Outcome: Partially Met documented in this encounter [facility] 12-13-2024 Hospital course Narrative [facility] [place] -- [facility] Elizabeth Cisneros : 1950 Admitted: 12/04/2024 Discharge Date: 12/13/24 PCP Handoff Recommended Outpatient Testing Neurology follow up Nephrology follow-up PCP follow-up Results Pending At Discharge None Clinical Summary Elizabeth Cisneros is a 74 y.o. female patient of Sj Motley MD with history of anxiety, depression, diabetes, coronary artery disease, COPD, GERD, dyslipidemia, hypertension and hypothyroidism presented as a transfer to [facility] on 12/04/2024 for generalized weakness. Generalized Weakness Frequent Falls Recent admission (10/25/24) for acute pancreatitis and pneumonia - following discharge patient was seen by PT (at home) but has recently declined their services CT head (12/03/24) - no acute intracranial findings CT pelvis w/o contrast (12/03/24) - no definitive acute fractures in either hip or bony pelvis UA-negative PT & OT-patient will be discharged to SNF Impaired coordination Per family, and did notice on physical exam 12/06 MRI Brain 12/06, no acute findings outpatient Neurology evaluation for Dementia Hyponatremia, acute on chronic Na-127->129->131 Was seen by nephrology, Dr Hickey, last month, at which time her sodium was also in the upper 120s She recommended that the patient take sodium chloride tablets 1000 mg TID, however the patient was not taking these prior to admission (unclear why) Continue with salt tabs, and patient will need to follow-up with nephrology Coronary Artery Disease Arteriosclerotic Vascular Disease Mitral Valve Prolapse EKG - sinus rhythm w/ premature supraventricular complexes Echo w/ EF 55% (10/31/24) - normal LV size and systolic function, normal wall motion, right ventricular size and systolic function are normal, left ventricular diastolic function is normal, no significant valvular heart disease is present Continue home atenolol Takes Lasix PRN, which was held on admission.Resume on discharge Acute sinusitis Sinusitis findings suggested by MRI brain and confirmed when discussed with patient (recent post nasal drip, headache, etc) S/p doxycycline Constipation CT pelvis w/o contrast (12/03/24) - large amount of retained feces in the rectal vault with surrounding inflammation concerning for stercoral colitis KUB 12/09- mild constipation Continue bowel regimen as needed COPD w/o Exacerbation Baseline RA - currently on RA Takes Bevespi at home, which is non-formulary here; scheduled DuoNeb Continue home nebulized budesonide BID GERD Continue Protonix Hypertension Continue Atenolol Hypothyroidism Continue Levothyroxine Hypomagnesemia, improving Resumed home daily oral supplementation Iron deficiency anemia Continue Folic Acid Resume home iron Restless Leg Syndrome Continue Remeron Anxiety/Depression Pristiq held d/t hyponatremia Resume as able Cervical spondylolysis with myelopathy Has been following with Dr Collier outpatient and was discussing surgical interventions Discussed with his office staff and they will reach out to her to set up an office visit after discharge Discharge Medications Discharge Medications New Medications Details polyethylene glycol 17 gram powder Commonly known as: MIRALAX Take 17 (seventeen) g by mouth daily for 7 days Start: 12/09/24. Quantity: 7 packet senna-docusate 8.6-50 mg Commonly known as: SENNA-S Take 1 (one) tablet by mouth 2 (two) times a day . Quantity: 60 tablet sodium chloride 1,000 mg Tbso Take 1 (one) tablet (1,000 mg total) by mouth 3 (three) times a day with meals . Quantity: 90 tablet Modified Medications Details albuterol 2.5 mg /3 mL (0.083 %) nebulizer solution Commonly known as: PROVENTIL What changed: Another medication with the same name was removed. Continue taking this medication, and follow the directions you see here. Take 3 mL (2.5 mg total) by nebulization every 6 (six) hours as needed for wheezing . Quantity: 360 mL Medications To Continue Details acetaminophen 500 MG tablet Commonly known as: TYLENOL Take 1 (one) tablet (500 mg total) by mouth every 6 (six) hours as needed for pain THREE TIMES DAILY . atenoloL 50 MG tablet Commonly known as: TENORMIN Take 1 (one) tablet (50 mg total) by mouth 2 (two) times a day . Quantity: 120 tablet [place] Saline Gel Generic drug: sodium chloride-aloe vera Apply topically 2 (two) times a day Apply a pea sized amount to both nostrils at bedtime and in a.m. You can use it more often.. Quantity: 14.1 g Bevespi Aerosphere 9-4.8 mcg Hfaa Generic drug: glycopyrrolate-formoteroL Inhale 2 puffs 2 (two) times a day . Quantity: 10.7 g budesonide 0.5 mg/2 mL nebulizer solution Commonly known as: PULMICORT Take 2 mL (0.5 mg total) by nebulization 2 (two) times a day . Quantity: 60 mL Calcitrate 200 mg (950 mg) tablet Generic drug: calcium citrate Take 200 mg by mouth 3 (three) times a day . diclofenac sodium 1% 1 % Gel Commonly known as: VOLTAREN Apply topically 4 (four) times a day as needed for pain . Quantity: 450 g dicyclomine 20 mg tablet Commonly known as: BENTYL Take 1 (one) tablet (20 mg total) by mouth 4 (four) times a day before meals and nightly for 7 days . Quantity: 28 tablet FeroSuL 325 mg (65 mg iron) tablet Generic drug: ferrous sulfate Take 1 (one) tablet (325 mg total) by mouth daily with breakfast Start: 10/28/24. Quantity: 30 tablet fexofenadine 180 MG tablet Commonly known as: LASHA Take 1 (one) tablet (180 mg total) by mouth daily . Fish OiL 1,200 (144-216) mg Cap Generic drug: omega 0-jnu-plx-fish oil Take 1 capsule by mouth 3 (three) times a day . fluticasone propionate 50 mcg/actuation nasal spray Commonly known as: FLONASE Instill 2 (two) sprays into each nostril 2 (two) times a day . Quantity: 18.2 mL folic acid 1 MG tablet Commonly known as: FOLVITE Take 1 (one) tablet (1 mg total) by mouth daily . furosemide 20 MG tablet Commonly known as: LASIX Take 1 (one) tablet (20 mg total) by mouth daily as needed (for lower extremity edema) . Quantity: 30 tablet guaiFENesin 600 mg 12 hr tablet Commonly known as: MUCINEX Take 2 (two) tablets (1,200 mg total) by mouth 2 (two) times a day . ketoconazole 2 % cream Commonly known as: NIZORAL Apply topically daily to feet . ketorolac 10 mg tablet Commonly known as: TORADOL Take 1 (one) tablet (10 mg total) by mouth every 6 (six) hours as needed . Quantity: 12 tablet lansoprazole 30 MG capsule Commonly known as: PREVACID Take 1 capsule by mouth every morning before breakfast on an empty stomach. . Quantity: 90 capsule levothyroxine 75 MCG tablet Commonly known as: SYNTHROID, LEVOTHROID Take 1 (one) tablet (75 mcg total) by mouth every morning DOS . Quantity: 90 tablet magnesium glycinate 100 mg Tab Take 2.5 (two and a half) tablets (250 mg total) by mouth 2 (two) times a day . metaxalone 800 MG tablet Commonly known as: SKELAXIN Take 1 (one) tablet (800 mg total) by mouth 3 (three) times a day as needed for muscle spasms . Quantity: 90 tablet mirtazapine 45 MG tablet Commonly known as: REMERON Take 1 (one) tablet (45 mg total) by mouth nightly . Quantity: 30 tablet montelukast 10 mg tablet Commonly known as: SINGULAIR Take 1 (one) tablet (10 mg total) by mouth nightly . Quantity: 30 tablet mupirocin 2 % ointment Commonly known as: BACTROBAN Apply topically 2 (two) times a day . Quantity: 22 g Nucala 100 mg/mL Atin Generic drug: mepolizumab Inject 1 mL (100 mg total) under the skin every 28 days . Quantity: 3 mL ondansetron 4 MG disintegrating tablet Commonly known as: ZOFRAN-ODT Dissolve 1 (one) tablet (4 mg total) on top of tongue every 8 (eight) hours as needed . Quantity: 20 tablet oxyCODONE-acetaminophen 5-325 mg per tablet Commonly known as: PERCOCET Take 1 (one) tablet by mouth daily as needed for pain . Quantity: 3 tablet Prolia 60 mg/mL Syrg Generic drug: denosumab Inject 60 (sixty) mg under the skin once for 1 dose. Therems-M 9 mg iron-400 mcg Tab Generic drug: ftjohxvf-hpax-ZJ-calcium-mins Take 1 (one) tablet by mouth daily . Ubrelvy 100 mg Tab Generic drug: ubrogepant Take 1 (one) tablet (100 mg total) by mouth at bedtime as needed (migraines) . Quantity: 10 tablet Vitamin D3 50 mcg (2,000 unit) Cap Generic drug: cholecalciferol (vitamin D3) Take 1 (one) capsule by mouth 2 (two) times a day . zinc gluconate 50 mg tablet Take 1 (one) tablet (50 mg total) by mouth daily . Stopped Medications albuterol 90 mcg/actuation inhaler You also have another medication with the same name that you need to continue taking as instructed. desvenlafaxine succinate 100 MG 24 hr tablet Commonly known as: PRISTIQ Physician(s) Follow Up: Rohan Palencia MD [address] [place], [place] [id number] Schedule an appointment as soon as possible for a visit SCHEDULE AN APPT AT DISCHARGE [facility] [id number] [place], [place] [id number] Sj Motley MD [id number] [address] Follow up Condition at Discharge: Stable Disposition: SNF I reviewed discharge recommendations with the patient in person. Patient instructions, including activity, were given to the patient/family at discharge. On day of discharge I saw Elizabeth Cisneros and spent: > 30 minutes on discharge. Completed by: Sameera Greer MD on 12/13/24, 11:32 AM documented in this encounter [facility] 12-13-2024 Progress note Formatting of t his note might be different from the original. Pt feels nauseated and does not feel she can take her aerosol therapy at this time. [facility] 12-12-2024 Plan of care note Problem: Falls, Risk of Goal: Absence of falls Outcome: Partially Met Goal: Absence of physical injury Outcome: Partially Met Problem: Pain Goal: Reduced pain sensation Outcome: Partially Met Goal: Control of acute pain to acceptable level Outcome: Partially Met Goal: Able to cope with pain Outcome: Partially Met Goal: Able to achieve maximum level of physical functioning Outcome: Partially Met Goal: Able to achieve maximum level of psychosocial functioning Outcome: Partially Met Problem: Actual or potential alteration in health Goal: Absence of healthcare acquired conditions Outcome: Partially Met Goal: Knowledge of Interdisciplinary Plan of Care Outcome: Partially Met Goal: Knowledge of Enviroment Outcome: Partially Met Problem: Pressure Injury, Risk of Goal: Absence of pressure injury Outcome: Partially Met [facility] 12-12-2024 Note [facility] 12-11-2024 Plan of care note Problem: Falls, Risk of Goal: Absence of falls Outcome: Partially Met Goal: Absence of physical injury Outcome: Partially Met Problem: Pain Goal: Reduced pain sensation Outcome: Partially Met Goal: Control of acute pain to acceptable level Outcome: Partially Met Goal: Able to cope with pain Outcome: Partially Met Goal: Able to achieve maximum level of physical functioning Outcome: Partially Met Goal: Able to achieve maximum level of psychosocial functioning Outcome: Partially Met Problem: Actual or potential alteration in health Goal: Absence of healthcare acquired conditions Outcome: Partially Met Goal: Knowledge of Interdisciplinary Plan of Care Outcome: Partially Met Goal: Knowledge of Enviroment Outcome: Partially Met Problem: Pressure Injury, Risk of Goal: Absence of pressure injury Outcome: Partially Met [facility] 12-11-2024 Note [facility] md 12-10-2024 Plan of care note Problem: Falls, Risk of Goal: Absence of falls Outcome: Partially Met Goal: Absence of physical injury Outcome: Partially Met Problem: Pain Goal: Reduced pain sensation Outcome: Partially Met Goal: Control of acute pain to acceptable level Outcome: Partially Met Goal: Able to cope with pain Outcome: Partially Met Goal: Able to achieve maximum level of physical functioning Outcome: Partially Met Goal: Able to achieve maximum level of psychosocial functioning Outcome: Partially Met Problem: Actual or potential alteration in health Goal: Absence of healthcare acquired conditions Outcome: Partially Met Goal: Knowledge of Interdisciplinary Plan of Care Outcome: Partially Met Goal: Knowledge of Enviroment Outcome: Partially Met Problem: Pressure Injury, Risk of Goal: Absence of pressure injury Outcome: Partially Met [facility] 12-10-2024 Plan of care note Problem: Falls, Risk of Goal: Absence of falls Outcome: Partially Met Goal: Absence of physical injury Outcome: Partially Met Problem: Pain Goal: Reduced pain sensation Outcome: Partially Met Goal: Control of acute pain to acceptable level Outcome: Partially Met Goal: Able to cope with pain Outcome: Partially Met Goal: Able to achieve maximum level of physical functioning Outcome: Partially Met Goal: Able to achieve maximum level of psychosocial functioning Outcome: Partially Met Problem: Actual or potential alteration in health Goal: Absence of healthcare acquired conditions Outcome: Partially Met Goal: Knowledge of Interdisciplinary Plan of Care Outcome: Partially Met Goal: Knowledge of Enviroment Outcome: Partially Met Problem: Pressure Injury, Risk of Goal: Absence of pressure injury Outcome: Partially Met [facility]10[facility] Plan of care note Problem: Falls, Risk of Goal: Absence of falls Outcome: Partially Met Goal: Absence of physical injury Outcome: Partially Met Problem: Pain Goal: Reduced pain sensation Outcome: Partially Met Goal: Control of acute pain to acceptable level Outcome: Partially Met Goal: Able to cope with pain Outcome: Partially Met Goal: Able to achieve maximum level of physical functioning Outcome: Partially Met Goal: Able to achieve maximum level of psychosocial functioning Outcome: Partially Met Problem: Actual or potential alteration in health Goal: Absence of healthcare acquired conditions Outcome: Partially Met Goal: Knowledge of Interdisciplinary Plan of Care Outcome: Partially Met Goal: Knowledge of Enviroment Outcome: Partially Met Problem: Pressure Injury, Risk of Goal: Absence of pressure injury Outcome: Partially Met [facility] 12-09-2024 Note Formatting of this n ote is different from the original. [facility] Utilization Review Notes HISTORY OF PRESENT ILLNESS:4 y.o. female patient of Sj Motley MD with history of anxiety, depression, diabetes, coronary artery disease, COPD, GERD, dyslipidemia, hypertension and hypothyroidism presented as a transfer to [facility] on 12/04/2024 for generalized weakness. Patient c/o worsening generalized weakness resulting in decreased ability to ambulate and increased falls. Patient's last fall was 11/30/24 in which she struck her head without loss of consciousness. Patient states her falls are precipitated by a loss of balance noting her bilateral hand grasp is weak making it hard to stay steady/balanced with her walker . Admit to Observation on 12/03 changed to Inpatient on 12/09 . Patient with Hypomagnesemia require replacement. VITAL SIGNS: 12/03 172/829-80-41-97.9-96 percent with RA 12/04 158/86-16-83-98.4-92 percent with RA 12/05 121/64-16-70-98.8-91 percent with RA 12/06 122/77-16-92-98.1-93 percent with RA 12/07 144/84-16-74-98.0-97 percent with RA 12/09 147/96-16-77-98.2-96 percent with RA EKG:None ordered WEIGHT:None in Chart LABS: (Abnormal / Relevant): ntains abnormal data Magnesium Level Component Ref Range & Units 10:10 (12/09/24) 1 d ago (12/08/24) 5 d ago (12/04/24) 1 mo ago (10/25/24) 1 mo ago (10/25/24) Magnesium 1.6 - 2.4 mg/dL 1.4 Low 1.4 Low 1.6 1.7 1.8 Basic Metabolic Panel Component Ref Range & Units 3 d ago (12/06/24) 4 d ago (12/05/24) 5 d ago (12/04/24) Sodium 135 - 145 mmol/L 135 133 Low 136 Potassium 3.5 - 5.1 mmol/L 3.9 3.7 3.9 Chloride 98 - 108 mmol/L 98 97 Low 99 Bicarbonate 21 - 32 mmol/L 25 26 25 Anion Gap 10 - 20 mmol/L 16 14 16 Glucose 65 - 99 mg/dL 130 High 130 High 134 High BUN 8 - 25 mg/dL 7 Low 9 10 Creatinine 0.60 - 1.10 mg/dL 0.54 Low 0.65 0.61 eGFR >=60 mL/min/1.73 m2 96 91 CM 93 CM BUN/Creatinine Ratio 10.0 - 20.0 13.0 13.8 16.4 Calcium 8.4 - 10.2 mg/dL 9.8 9.2 9.7 CBC Component Ref Range & Units 4 d ago (12/05/24) 5 d ago (12/04/24) 6 d ago (12/03/24) WBC 4.50 - 11.00 K/mcL 4.96 5.64 5.37 RBC 4.00 - 5.20 M/mcL 3.65 Low 3.99 Low 4.14 Hemoglobin 12.0 - 16.0 g/dL 12.0 12.8 13.3 Hematocrit 36.0 - 46.0 % 35.8 Low 38.8 40.3 MCV 80.0 - 100.0 fL 98.1 97.2 97.3 MCH 26.0 - 34.0 pg 32.9 32.1 32.1 MCHC 31.0 - 37.0 g/dL 33.5 33.0 33.0 Platelets 150 - 400 K/mcL 210 251 264 Phosphorus Component Ref Range & Units 5 d ago (12/04/24) 1 mo ago (10/25/24) 1 mo ago (10/25/24) Phosphorus 2.8 - 4.1 mg/dL 4.2 High 2.5 Low Venous Blood Gases with Full Panel Liver Panel Plus Component Ref Range & Units 12/03 Albumin 3.2 - 5.2 g/dL 3.7 Alkaline Phosphatase 40 - 150 U/L 76 ALT (SGPT) 0 - 40 U/L 25 AST (SGOT) 0 - 45 U/L 34 Bilirubin, Total 0.0 - 1.3 mg/dL 0.6 Total Protein 6.0 - 8.0 g/dL 6.8 Amylase 25 - 115 U/L 44 GGT 7 - 33 U/L 60 High IMAGING: (Abnormal / Relevant): MR Brain Without Contrast (Final result) Result time 12/06/24 13:52:27 Impression: 1. No acute intracranial abnormality within limitations study. 2. Mild cerebral volume loss with mild chronic microvascular ischemic changes. 3. Significant paranasal sinus disease. Clinical correlation sinusitis is recommended. ED TX:none DX:ASSESSMENT / PLAN: Generalized Weakness Frequent Falls Recent admission (10/25/24) for acute pancreatitis and pneumonia - following discharge patient was seen by PT (at home) but has recently declined their services CT head (12/03/24) - no acute intracranial findings CT pelvis w/o contrast (12/03/24) - no definitive acute fractures in either hip or bony pelvis Afebrile, WBC 5.37, Lactic acid 1.4, UA - negative Fall precautions Orthostatic vitals signs Consult Case Management, PT & OT Constipation CT pelvis w/o contrast (12/03/24) - large amount of retained feces in the rectal vault with surrounding inflammation concerning for stercoral colitis Bowel regimen-(12/09)although patient has been refusing Will check KUB for re-assessment 12/09, as there are no documented BM's since admission Encourage high fiber diet Hold Ferrous Sulfate Impaired coordination Family notices this AM that patient is having a hard time putting pills up to her mouth, seems uncoordinated Finger to nose examination is abnormal this AM Unclear timing of onset of symptoms, so will not call stroke alert Will obtain MRI brain Consider neurology consult pending results Will also add ST evaluation (12/07) Although, patient claims Flexeril may have contributed to some of this; now de'ed Obtained MRI brain 12/06, no acute findings; consider outpatient neurology evaluation for dementia Added ST evaluation Acute sinusitis (12/07) Sinusitis findings suggested by MRI brain and confirmed when discussed with patient (recent post nasal drip, headache, etc) Doxycycline 100 mg BID x7 days (12/08) Hypomagnesemia IV replacement ordered, and resumed home daily oral supplementation Repeat labs in AM Coronary Artery Disease Arteriosclerotic Vascular Disease Mitral Valve Prolapse EKG - sinus rhythm w/ premature supraventricular complexes Echo w/ EF 55% (10/31/24) - normal LV size and systolic function, normal wall motion, right ventricular size and systolic function are normal, left ventricular diastolic function is normal, no significant valvular heart disease is present (12/06) Continue home cardiac medications: atenolol Takes Lasix PRN, which was held on admission COPD w/o Exacerbation Baseline RA - currently on RA Continue Bevespi Aerosphere & Pulmicort Continue Claritin & Singulair (12/05) Was placed on oxygen in the night; will try to wean (12/06) Takes Bevespi at home, which is non-formulary here; scheduled DuoNeb Continue home nebulized budesonide BID Supplemental O2 only if SpO2<88% GERD Continue Protonix Hyperlipidemia Denies current medications Lipid panel - pending Hypertension Continue Atenolol Hypothyroidism TSH - 1.43 (10/25/24) Repeat TSH w/ reflex T4 Continue Levothyroxine Iron deficiency anemia Continue Folic Acid Hold Ferrous Sulfate d/t constipation Chronic Hyponatremia Sodium - pending (12/06) Hyponatremia, resolved Appears to be chronic in nature; Baseline Na ~133 Current Na 136 Restless Leg Syndrome Continue Remeron Anxiety/Depression Continue Venlafaxine (Pristiq substitute) MEDS / ORDERS: vital q 8 hrs, Hepwell, strict I and O, Tele, 02 supplement prn, PT/OT eval, KUB on 12/09, continue to follow BMP and Mg Level, [place] Nebs q 6 hrs, IV Mag given on 12/08, 12/09, percodet prn, DISPO: SNF [facility] 12-09-2024 Note [facility] 12-08-2024 Plan of care note Problem: Falls, Risk of Goal: Absence of falls Outcome: Partially Met Goal: Absence of physical injury Outcome: Partially Met Problem: Pain Goal: Reduced pain sensation Outcome: Partially Met Goal: Control of acute pain to acceptable level Outcome: Partially Met Goal: Able to cope with pain Outcome: Partially Met Goal: Able to achieve maximum level of physical functioning Outcome: Partially Met Goal: Able to achieve maximum level of psychosocial functioning Outcome: Partially Met Problem: Actual or potential alteration in health Goal: Absence of healthcare acquired conditions Outcome: Partially Met Goal: Knowledge of Interdisciplinary Plan of Care Outcome: Partially Met Goal: Knowledge of Enviroment Outcome: Partially Met Problem: Pressure Injury, Risk of Goal: Absence of pressure injury Outcome: Partially Met [facility] 12-08-2024 Note [facility] 12-08-2024 Plan of care note Problem: Falls, Risk of Goal: Absence of falls Outcome: Partially Met Goal: Absence of physical injury Outcome: Partially Met Problem: Pain Goal: Reduced pain sensation Outcome: Partially Met Goal: Control of acute pain to acceptable level Outcome: Partially Met Goal: Able to cope with pain Outcome: Partially Met Goal: Able to achieve maximum level of physical functioning Outcome: Partially Met Goal: Able to achieve maximum level of psychosocial functioning Outcome: Partially Met Problem: Actual or potential alteration in health Goal: Absence of healthcare acquired conditions Outcome: Partially Met Goal: Knowledge of Interdisciplinary Plan of Care Outcome: Partially Met Goal: Knowledge of Enviroment Outcome: Partially Met Problem: Pressure Injury, Risk of Goal: Absence of pressure injury Outcome: Partially Met [facility] 12-07-2024 Note Formatting of this n ote might be different from the original. SPEECH THERAPY VISIT VARIANCE NOTE Attempted to see patient at this time, but unable secondary to: Visit Variance: Refused. Pt indicated she was not having any difficulty swallowing and was to be discharged today (RN reports this is not the case). Discussed pt comment from 12/06 that she was aspirating. Pt stated anyone would aspirate when they aren't positioned appropriately, I can't eat all scrunched up in this bed. Educated that pt would be repositioned for optimal safety to which she continued to refuse. RN reports pt took meds well one at a time with no other overt clinical indications of penetration or aspiration this date. Will discontinue order at this time with RN in agreement to re-consult should difficulties arise. Will follow up as appropriate. [facility] 12-07-2024 Plan of care note Problem: Falls, Risk of Goal: Absence of falls Outcome: Partially Met Goal: Absence of physical injury Outcome: Partially Met Problem: Pain Goal: Reduced pain sensation Outcome: Partially Met Goal: Control of acute pain to acceptable level Outcome: Partially Met Goal: Able to cope with pain Outcome: Partially Met Goal: Able to achieve maximum level of physical functioning Outcome: Partially Met Goal: Able to achieve maximum level of psychosocial functioning Outcome: Partially Met Problem: Actual or potential alteration in health Goal: Absence of healthcare acquired conditions Outcome: Partially Met Goal: Knowledge of Interdisciplinary Plan of Care Outcome: Partially Met Goal: Knowledge of Enviroment Outcome: Partially Met Problem: Pressure Injury, Risk of Goal: Absence of pressure injury Outcome: Partially Met [facility] 12-07-2024 [facility] 12-07-2024 Plan of care note Problem: Falls, Risk of Goal: Absence of falls Outcome: Partially Met Goal: Absence of physical injury Outcome: Partially Met Problem: Pain Goal: Reduced pain sensation Outcome: Partially Met Goal: Control of acute pain to acceptable level Outcome: Partially Met Goal: Able to cope with pain Outcome: Partially Met Goal: Able to achieve maximum level of physical functioning Outcome: Partially Met Goal: Able to achieve maximum level of psychosocial functioning Outcome: Partially Met Problem: Actual or potential alteration in health Goal: Absence of healthcare acquired conditions Outcome: Partially Met Goal: Knowledge of Interdisciplinary Plan of Care Outcome: Partially Met Goal: Knowledge of Enviroment Outcome: Partially Met Problem: Pressure Injury, Risk of Goal: Absence of pressure injury Outcome: Partially Met [facility] 12-06-2024 Plan of care note Physical Therapy Plan of Care Certification Note Medicare billing rules require the provider to review and certify the physical therapy plan of care for patients in observation or outpatient status. This co-signature is to electronically certify that the above-named patient, who is under my care, requires skilled therapy services as described in the treatment plan below. I further certify that the services outlined in this plan are skilled and medically necessary. I have reviewed this plan of care for rehabilitation services and recommend that these services continue until the patient is discharged from this hospitalization or the patient is discharged from physical therapy services. Coded Admission Diagnosis Generalized weakness [R53.1] PT Functional Diagnosis: R26.2 Difficulty in walking, not elsewhere classified PT Goals Encounter Problems (Active) Problem: Impaired Strength Dates: Start: 12/06/24 Disciplines: PT Goal: PT- Strength Other Dates: Start: 12/06/24 Expected End: 12/13/24 Description: PT- Patient to be independent with HEP to improve functional mobility, strength, and safety Disciplines: PT Intervention: Education, Therapeutic exercise Frequency: PRN Dates: Start: 12/06/24 Problem: Mobility - Impaired Dates: Start: 12/06/24 Disciplines: PT Goal: pt- bed mobility Dates: Start: 12/06/24 Expected End: 12/13/24 Description: PT - Patient will perform bed mobility with contact guard to improve functional mobility and safety. Disciplines: PT Goal: PT- sit to stand transfer Dates: Start: 12/06/24 Expected End: 12/13/24 Description: PT - Patient will perform sit to/from stand transfer with moderate assist to improve functional mobility and safety. Disciplines: PT Goal: PT- stand-pivot transfer Dates: Start: 12/06/24 Expected End: 12/13/24 Description: PT - Patient will perform stand-pivot transfer with moderate assist to improve functional mobility and safety. Disciplines: PT Goal: PT- static balance Dates: Start: 12/06/24 Expected End: 12/13/24 Description: PT - Patient will perform sitting and standing static balance activities with device with stand by assist, contact guard to improve functional mobility and safety. Disciplines: PT Goal: PT- dynamic balance Dates: Start: 12/06/24 Expected End: 12/13/24 Description: PT - Patient will perform sitting dynamic balance activities with device with supervision to improve functional mobility and safety. Disciplines: PT Intervention: Education, Assistive device training Frequency: PRN Dates: Start: 12/06/24 Intervention: Education, Bed mobility training Frequency: PRN Dates: Start: 12/06/24 Intervention: Education, Balance training Frequency: PRN Dates: Start: 12/06/24 Description: REMINDER(s):Reinforce education provided by Physical Therapy related to balance training. Intervention: Education, Therapeutic exercise Frequency: PRN Dates: Start: 12/06/24 Intervention: Education, Transfer training Frequency: PRN Dates: Start: 12/06/24 Intervention: Education, Precautions Frequency: PRN Dates: Start: 12/06/24 Frequency of Treatment: 3 days per week This physical Therapy Plan of Care will be carried out until: 1.) The PT plan has been resolved or 2.) The patient is discharged from the acute care hospital Cosigned by Sallie Stewart CNP at 12/07/2024 9:50 PM EDT [facility] 12-06-2024 Consult note Formatting of th is note is different from the original. Physical Therapy PHYSICAL THERAPY EVALUATION Dx: Generalized weakness, frequent falls, impaired coordination Skilled Therapy Needs After Discharge Anticipate Resolution of Current Assessment Limitations Including: Pain, Mechanical Barriers, Social Support Are carton catcher Therapy Services Needed After Discharge: Yes Intensity of carton catcher Therapy: Up to 5 days per week Anticipated Duration of carton catcher Therapy: > 30 days PT DME Recommendation: To be determined at next level of care Outcomes Measures Prior Function - Basic Mobility Raw Score: 24 Points Prior Function - Basic Mobility % Impaired: 0% AM-PAC Basic Mobility Raw Score: 10 Points AM-PAC Basic Mobility % Impaired: 71.92% Physical Therapy Assessment History: The following factors influence the patient's participation in the PT plan of care: Personal Factors: Limited Compliance, Limited Baseline Mobility, Decreased Insight, Apprehensive Toward Mobility, Age, Social Barriers, Body Habitus Environmental Factors: Steps to enter home, Lives alone, Family unavailable to assist The following co-morbidities (from this admission or prior) influence the patient's participation in this plan of care: in H&P Number of History elements affecting this patient's PT plan of care: 3 or more Examination of Body Systems: The patient presents with: Musculoskeletal impairments: Strength, ROM, Functional Endurance, Pain Neurologic Impairments: Balance, Cognition Cardiopulmonary Impairments: Activity Tolerance Other Impairments: Psychological Health. These impairments result in limitations of Gait, Functional Transfers, Safety, Safety Awareness, Wheelchair Mobility, Activity Tolerance, Insight. These impairments result in restrictions of Household mobility, Community mobility. Number of Body Systems elements affecting this patient's PT plan of care: 3 or more. Clinical Presentation: The patient's clinical presentation for this PT evaluation is evolving with changing characteristics as evidenced by current PT documentation. Activity Tolerance Activity Tolerance: Tolerates 20 - 30 min activity with multiple rests (on RA, complaints of dizziness with position change) Therapy Precautions General Rehab Precautions: Fall risk Strength Assessment Strength RLE RLE Overall Strength: 3+/5 Strength LLE LLE Overall Strength: 3/5 Balance Assessment Sitting Balance - Static: Minimal assist Loss of Balance - Sitting Static: right, posterior, inconsistent Sitting Balance - Dynamic: Minimal assist, Moderate assist Loss of Balance - Sitting Dynamic: posterior, inconsistent Standing Balance - Static: Maximal assist Loss of Balance- Standing Static: continuous Standing Balance - Dynamic: Maximal assist Loss of Balance- Standing Dynamic: continuous Bed Mobility Rolling: Maximal assist, Moderate assist Supine to Sit: Maximal assist, Head of bed elevated Sit to Supine: Maximal assist, Head of bed elevated Wireless Cellular Technician: bedrails, bed positioning mechanics, patient slide sheet / friction-reducing device Transfers Sit to Stand: Maximal assist Gait/Locomotion Gait Assistance: (pt unable) Additional Assessment Details Family present for evaluation who report pt was independent prior to . Pt with complaints of left hip pain and left foot inversion during session. Pt able to stand with MAX A using gait belt for <30 seconds this date prior to needing to sit d/t fatigue and fear of falling. Pt in bed with alarm on at end of session and family present in room Home Living Obtained Home Living and PLOF info from: Patient, Patient s family member Lives With: Alone Type of Home: Apartment Home Layout: One level Steps to enter home: No Bathroom Shower/Tub: Tub/shower unit Bathroom Equipment: Grab bars in shower, Hand-held showerhead, Toilet seat mail distribution scheme examiner, Tub transfer bench Bathroom Accessibility: Accessible via walker Mobility Equipment: Cane, Wheeled walker, Rollator ADL Equipment: Loss Prevention Consultant Prior Level of Function Receives Help From: Family (Assist from [id number]/sister) Level of Cottle - Transfers/Ambulation/Mobility: Independent with functional transfers, Independent with household ambulation, Independent with community ambulation (Walker and rollator use) Level of Cottle - ADLs: Needs assistance Bathing: Moderate assist Dressing: Maximal assist Toileting: Moderate assist Grooming: Moderate assist Feeding: Moderate assist Level of Cottle - Homemaking: Needs assistance Driving: Patient does not drive Shopping: (Groceries delivered) Vocational: Retired Past Medical History: Diagnosis Date Anemia 03/2016 Anxiety Arrhythmia Arthritis Asthma ASVD (arteriosclerotic vascular disease) Bruises easily Carpal tunnel syndrome Cataracts, bilateral Cervical cancer (HCC) 06/1991 Clostridium difficile infection 1999 COPD (chronic obstructive pulmonary disease) (HCC) Coronary artery disease Depression Diabetes mellitus (HCC) 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 Watters SINUS SURGERY 12/30/2019 balloon sinuplasty - Dr. Key SKIN BIOPSY TONSILLECTOMY TRIGGER FINGER RELEASE Right 03/24/2018 RELEASE A1 TOD LEFT MIDDLE,RING, AND SMALL FINGERS WITH CORTISONE INJECTION RIGHT MIDDLE FINGER A1 TOD; Surgeon: Yonas Nugyen MD TUBAL LIGATION For complete objective data, detailed plan of care and patient education refer to: PT Evaluation flowsheet, PT Evaluation and Treatment flowsheet, PT Treatment flowsheet, patient Plan of Care, Plan of Care progress note, and Patient Education. This note stands as the current Discharge Summary upon patient discharge from the hospital or completion of Physical Therapy Plan. [facility] 12-06-2024 Consult note Formatting of th is note is different from the original. Physical Therapy PHYSICAL THERAPY EVALUATION Dx: Generalized weakness, frequent falls, impaired coordination Skilled Therapy Needs After Discharge Anticipate Resolution of Current Assessment Limitations Including: Pain, Mechanical Barriers, Social Support Are carton catcher Therapy Services Needed After Discharge: Yes Intensity of carton catcher Therapy: Up to 5 days per week Anticipated Duration of carton catcher Therapy: > 30 days PT DME Recommendation: To be determined at next level of care Outcomes Measures Prior Function - Basic Mobility Raw Score: 24 Points Prior Function - Basic Mobility % Impaired: 0% AM-PAC Basic Mobility Raw Score: 10 Points AM-PAC Basic Mobility % Impaired: 71.92% Physical Therapy Assessment History: The following factors influence the patient's participation in the PT plan of care: Personal Factors: Limited Compliance, Limited Baseline Mobility, Decreased Insight, Apprehensive Toward Mobility, Age, Social Barriers, Body Habitus Environmental Factors: Steps to enter home, Lives alone, Family unavailable to assist The following co-morbidities (from this admission or prior) influence the patient's participation in this plan of care: in H&P Number of History elements affecting this patient's PT plan of care: 3 or more Examination of Body Systems: The patient presents with: Musculoskeletal impairments: Strength, ROM, Functional Endurance, Pain Neurologic Impairments: Balance, Cognition Cardiopulmonary Impairments: Activity Tolerance Other Impairments: Psychological Health. These impairments result in limitations of Gait, Functional Transfers, Safety, Safety Awareness, Wheelchair Mobility, Activity Tolerance, Insight. These impairments result in restrictions of Household mobility, Community mobility. Number of Body Systems elements affecting this patient's PT plan of care: 3 or more. Clinical Presentation: The patient's clinical presentation for this PT evaluation is evolving with changing characteristics as evidenced by current PT documentation. Activity Tolerance Activity Tolerance: Tolerates 20 - 30 min activity with multiple rests (on RA, complaints of dizziness with position change) Therapy Precautions General Rehab Precautions: Fall risk Strength Assessment Strength RLE RLE Overall Strength: 3+/5 Strength LLE LLE Overall Strength: 3/5 Balance Assessment Sitting Balance - Static: Minimal assist Loss of Balance - Sitting Static: right, posterior, inconsistent Sitting Balance - Dynamic: Minimal assist, Moderate assist Loss of Balance - Sitting Dynamic: posterior, inconsistent Standing Balance - Static: Maximal assist Loss of Balance- Standing Static: continuous Standing Balance - Dynamic: Maximal assist Loss of Balance- Standing Dynamic: continuous Bed Mobility Rolling: Maximal assist, Moderate assist Supine to Sit: Maximal assist, Head of bed elevated Sit to Supine: Maximal assist, Head of bed elevated Wireless Cellular Technician: bedrails, bed positioning mechanics, patient slide sheet / friction-reducing device Transfers Sit to Stand: Maximal assist Gait/Locomotion Gait Assistance: (pt unable) Additional Assessment Details Family present for evaluation who report pt was independent prior to . Pt with complaints of left hip pain and left foot inversion during session. Pt able to stand with MAX A using gait belt for <30 seconds this date prior to needing to sit d/t fatigue and fear of falling. Pt in bed with alarm on at end of session and family present in room Home Living Obtained Home Living and PLOF info from: Patient, Patient s family member Lives With: Alone Type of Home: Apartment Home Layout: One level Steps to enter home: No Bathroom Shower/Tub: Tub/shower unit Bathroom Equipment: Grab bars in shower, Hand-held showerhead, Toilet seat mail distribution scheme examiner, Tub transfer bench Bathroom Accessibility: Accessible via walker Mobility Equipment: Cane, Wheeled walker, Rollator ADL Equipment: Loss Prevention Consultant Prior Level of Function Receives Help From: Family (Assist from [id number]/sister) Level of Cottle - Transfers/Ambulation/Mobility: Independent with functional transfers, Independent with household ambulation, Independent with community ambulation (Walker and rollator use) Level of Cottle - ADLs: Needs assistance Bathing: Moderate assist Dressing: Maximal assist Toileting: Moderate assist Grooming: Moderate assist Feeding: Moderate assist Level of Cottle - Homemaking: Needs assistance Driving: Patient does not drive Shopping: (Groceries delivered) Vocational: Retired Past Medical History: Diagnosis Date Anemia 03/2016 Anxiety Arrhythmia Arthritis Asthma ASVD (arteriosclerotic vascular disease) Bruises easily Carpal tunnel syndrome Cataracts, bilateral Cervical cancer (HCC) 06/1991 Clostridium difficile infection 1999 COPD (chronic obstructive pulmonary disease) (HCC) Coronary artery disease Depression Diabetes mellitus (HCC) 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 Watters SINUS SURGERY 12/30/2019 balloon sinuplasty - Dr. Key SKIN BIOPSY TONSILLECTOMY TRIGGER FINGER RELEASE Right 03/24/2018 RELEASE A1 TOD LEFT MIDDLE,RING, AND SMALL FINGERS WITH CORTISONE INJECTION RIGHT MIDDLE FINGER A1 TOD; Surgeon: Yonas Nguyen MD TUBAL LIGATION For complete objective data, detailed plan of care and patient education refer to: PT Evaluation flowsheet, PT Evaluation and Treatment flowsheet, PT Treatment flowsheet, patient Plan of Care, Plan of Care progress note, and Patient Education. This note stands as the current Discharge Summary upon patient discharge from the hospital or completion of Physical Therapy Plan. Occupational Therapy 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 EVALUATION AND TREATMENT NOTE Dx: Generalized weakness, frequent falls, impaired coordination 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 EVALUATION Skilled Therapy Needs After Discharge Anticipate Resolution of Current Assessment Limitations Including: Pain, Mechanical Barriers Are OT Skilled Therapy Services Needed After Discharge: Yes Intensity of OT Skilled Therapy: Up to 5 days per week Anticipated Duration of OT Skilled Therapy: > 30 days OT DME Recommendation: To be determined at next level of care Rehab Potential: Good Outcomes Measures Prior Function Daily Activity Raw Score: 13 Prior Function Daily Activity % Impaired: 63.03% AM-PAC Daily Activity Raw Score: 11 AM-PAC Daily Activity % Impaired: 70.42% Occupational Therapy Assessment The patient's current functional participation deficits are feeding, grooming, UE dressing, LE dressing, bathing, toileting, functional mobility. This reduced independence will limit their life roles of premorbid level individual, parent, family member, community member. The patient's co morbidities do significantly affect patient performance in the above activities and roles. The performance deficits are a result of no impairment(s) in generalized debility including strength, range of motion, balance, dexterity, coordination, sensation, acitvity tolerance, pain, insight, safety, and emotional lability. The patient's family / caregiver support is a refrigeration houseman, home setup is a refrigeration houseman, transportation is a refrigeration houseman for return to prior level of function. The patient's compliance is a barrier, awareness of own capacity and performance is a refrigeration houseman to return to prior level of function. During the assessment, significant modification of task was required and multiple treatment options were identified in the plan of care. This consultation required extensive review of the medical and therapy history. Activity Tolerance Activity Tolerance: Tolerates 20 - 30 min activity with multiple rests (On room air, MIN dizziness with positonal changes and intermittent lightheadedness throughout session. Only completed EOB activity on this date.) Therapy Precautions Orthotic Devices: No Weight Bearing Status: [facility] General Rehab Precautions: Fall risk Cognition Overall Cognitive Status: Within Functional Limits Arousal/Alertness: Appropriate responses to stimuli Orientation Level: Oriented X4 Executive functioning: [facility] Safety Judgment: Decreased awareness of need for assistance, Decreased awareness of need for safety Problem Solving: Assistance required to identify errors made, Assistance required to generate solutions, Assistance required to implement solutions Attention: Attends to quiet environment Hearing Status: [facility] Social Interaction: [facility] ADL Feeding: Moderate assist (MOD assist to support cup in hands and bring cup toward mouth. Per pt, limitations in FM coordination and head turning machine operator strength create obstacles with feeding tasks. Discussed adaptive utensils with pt. Pt owns built-up utensils, but stated that they do not help.) Grooming: Moderate assist, Maximal assist (Pt washed face with warm washcloth with MOD assist and combed hair with MAX assist while sitting EOB, back unsupported. MOD assist for washing face and MAX assist for combing hair for thorughness. Pt with decreased FM coordination and ROM, difficulty grasping washcloth and bringing to face, and combing both the sides and back of head.) Upper Body Dressing: Maximal assist, Increased time to complete (MAX assist to doff shirt and don clean shirt while sitting EOB. Pt initiating threading BUEs through shirt, MAX assist for UE positoning/management, complete threading of BUEs and head through shirt, and re-adjusting shirt. Pt educated on UB dressing techniques to compensate for decreased ROM of BUEs.) Lower Body Dressing: Dependent (Therapist provided total assist to thread BLEs through pants (while seated EOB), pull pants up to knees, and hike pants over hips (while standing) using FWW.) UE Assessment L hand dominant RUE ROM/MMT: shoulder flexion ~80 degrees LUE ROM/MMT: shoulder flexion ~115 degrees Medical Review Coordinator strength: 2/5 Finger opposition: Difficulty preforming on both hands. Pt with numbness/tingling in BUEs. Bed Mobility Rolling: Stand by assist, Head of bed elevated Supine to Sit: Maximal assist, Head of bed elevated (MAX assist for trunk support and re-positioning BLEs while seated EOB, cueing for use of bedrails.) Sit to Supine: Maximal assist, Head of bed elevated (MAX assist for trunk support and bringing BLEs back into bed.) Wireless Cellular Technician: bedrails Functional Transfers Sit to Stand: Maximal assist (tolerating ~1 min standing, MAX assist to complete, returned to EOB sitting 2/2 pain and fatigue with activity.) Wireless Cellular Technician: wheeled walker Balance Assessment Static sitting: Minimum assist, Contact guard assist, Standby assist (Intermittently contact, to standby assist throughout session. Pt holding bedrail with L hand, occasional LOB laterally toward L and R sides, MIN assist to correct LOB.) Static standing: Maximum assist, with device gerontology aide: wheeled walker Home Living Obtained Home Living and PLOF info from: Patient, Patient s family member Lives With: Alone Type of Home: Apartment Home Layout: One level Steps to enter home: No Bathroom Shower/Tub: Tub/shower unit Bathroom Equipment: Grab bars in shower, Hand-held showerhead, Toilet seat mail distribution scheme examiner, Tub transfer bench Bathroom Accessibility: Accessible via walker Mobility Equipment: Cane, Wheeled walker, Rollator ADL Equipment: Loss Prevention Consultant Prior Level of Function Receives Help From: Family (Assist from [id number]/sister) Level of Cottle - Transfers/Ambulation/Mobility: Independent with functional transfers, Independent with household ambulation, Independent with community ambulation (Walker and rollator use) Level of Cottle - ADLs: Needs assistance Bathing: Moderate assist Dressing: Maximal assist Toileting: Moderate assist Grooming: Moderate assist Feeding: Moderate assist Level of Cottle - Homemaking: Needs assistance Driving: Patient does not drive Shopping: (Groceries delivered) Vocational: Retired 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 NOTE Total Treatment Time (Total Session Time): 40 Minutes Total Timed Code Treatment Minutes: 12 Minutes Self-Care / ADL Feeding - Skilled Intervention Provided: facilitation, hand over hand cues Feeding - For: UE positioning, compensatory strategies, efficient movement Feeding - Resulting In: neutral response to intervention Upper Body Dressing - Skilled Intervention Provided: patient education, verbal cues, hand over hand cues, facilitation Upper Body Dressing - For: compensatory strategies, UE positioning, UE management, efficient movement Upper Body Dressing - Resulting In: neutral response to intervention Lower Body Dressing - Skilled Intervention Provided: patient education, facilitation Lower Body Dressing - For: LE positioning, LE management, compensatory strategies, fall prevention, proper body mechanics Lower Body Dressing - Resulting In: neutral response to intervention Additional Treatment Details Pts family present during session. Pt supine in bed, bed alarm activated and call light within reach, at end of session. 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 Watters SINUS SURGERY 12/30/2019 balloon sinuplasty - Dr. Key SKIN BIOPSY TONSILLECTOMY TRIGGER FINGER RELEASE Right 03/24/2018 RELEASE A1 TOD LEFT MIDDLE,RING, AND SMALL FINGERS WITH CORTISONE INJECTION RIGHT MIDDLE FINGER A1 TOD; Surgeon: Yonas Nguyen MD TUBAL LIGATION For complete objective data, detailed plan of care and patient education refer to: OT Evaluation flowsheet, OT Evaluation and Treatment flowsheet, OT Treatment flowsheet, patient Plan of Care, Plan of Care progress note, and Patient Education. This note stands as the current Discharge Summary upon patient discharge from the hospital or completion of Occupational Therapy Plan of Care. Associated Order(s): IP CONSULT TO CARE MANAGEMENT Care Management Consult Note Date: 12/05/2024 Time: 2:55 PM Patient Name: Elizabeth Cisneros Date of : 1950 Reason for Consult: Discharge planning Discharge Plan: Plan A: Detention Facility Plan A : Post Acute Patient Choice 1: [facility] (DECLINED NO BEDS) Plan A : Post Acute Patient Choice 2: [facility] Plan A : Post Acute Patient Choice 3: Other ([facility] in [place]) Discharging Transportation Plan: To be determined Discharge Plan Status: CM consulted for discharge planning. Pt and pt's son, Emery, both educated on the role of CM and discussed discharge planning. Pt states she as been falling a lot at home and now she is unable to walk. Pt is pending PT/OT evaluations, pt and son gave the above choices for SNFs. Kamini JAIMES notified to send referrals. CM will continue to follow. Pt has [employer] Managed Medicare insurance with traditional Medicaid as a secondary. Pt's PCP is Dr. Motley. Assessment and Background Information: Pt states that she lives alone in a 1 story apartment with no steps to get into the home. Pt states she needs help with all her ADLs and has been falling a lot. Pt states she use to drive but her sister in law has been driving her around. She has progressively gotten weaker, Emery states he could barely get her into the car to bring her to the ED yesterday. Pt and son states she lives on a very low income and has trouble with food/medications/bills. Resources added to her AVS. Living Arrangements: Alone Support Systems: Children Assistance Needed: Case management Type of Residence: Private residence Prior to Admission Home Care Services: No Current Home Equipment: Tub/Shower chair, Adaptive equipment, Front-wheeled walker, Rollator, Cane SDOH Needs Addressed: Transportation Needs, Utilities Resources Provided - Transportation Needs: Added to AVS Resources Provided - Utilities: Added to AVS Holistic Assessment Medication adherence problem:: (!) Yes Barriers to medication adherence: Other (comment) (cost & getting PCP to do prior auths) History of falls in last 6 months:: (!) Yes Family aware of the patient's advance care planning wishes:: No Do you have any cultural/spiritual connections or beliefs that would impact how we deliver your care?: No Chronic pain:: No documented in this encounter [facility] 12-06-2024 Note Formatting of this n ote might be different from the original. SPEECH THERAPY VISIT VARIANCE NOTE Attempted to see patient at this time, but unable secondary to: Visit Variance: Patient reported that she has been aspirating, however upon further prompting for details, patient closed her eyes and stopped responding. Patient eventually stated that she needed a time out. SENIOR PROFESSIONAL SERVICES CONSULTANT exited room. Will follow up as appropriate. [facility] 12-06-2024 Plan of care note Occupational Therapy Plan of Care Certification Note Medicare billing rules require the provider to review and certify the occupational therapy plan of care for patients in observation or outpatient status. This co-signature is to electronically certify that the above-named patient, who is under my care, requires skilled therapy services as described in the treatment plan below. I further certify that the services outlined in this plan are skilled and medically necessary. I have reviewed this plan of care for rehabilitation services and recommend that these services continue until the patient is discharged from this hospitalization or the patient is discharged from occupational therapy services. Coded Admission Diagnosis Generalized weakness [R53.1] OT Functional Diagnosis: Z73.6 Disability affecting daily living OT Goals Encounter Problems (Active) Problem: Impaired Neurologic Function Dates: Start: 12/06/24 Disciplines: OT Goal: OT- static standing balance Dates: Start: 12/06/24 Expected End: 12/13/24 Description: OT - Patient will complete static standing balance activity (tolerating > 1min standing) with moderate assist in preparation for ADL's. Disciplines: OT Goal: OT- in-hand manipulation/coordination Dates: Start: 12/06/24 Expected End: 12/13/24 Description: OT - Patient will increase in-hand manipulation/coordination with minimal assist to improve ADL's. Disciplines: OT Intervention: Education, ADL/IADL retraining Frequency: PRN Dates: Start: 12/06/24 Intervention: Education, Cognitive reeducation Frequency: PRN Dates: Start: 12/06/24 Intervention: Education, compensatory technique training Frequency: PRN Dates: Start: 12/06/24 Intervention: Education, functional mobility training Frequency: PRN Dates: Start: 12/06/24 Intervention: Education, neuromuscular reeducation Frequency: PRN Dates: Start: 12/06/24 Intervention: Education, visual/perceptual reeducation Frequency: PRN Dates: Start: 12/06/24 Problem: Impaired Strength Dates: Start: 12/06/24 Disciplines: OT Goal: OT- AAROM Dates: Start: 12/06/24 Expected End: 12/13/24 Description: OT - Patient will participate in AAROM in order to increase joint ROM in bilateral upper extremities with contact guard in preparation for ADL's. Disciplines: OT Goal: OT- Strength Other Dates: Start: 12/06/24 Expected End: 12/13/24 Description: OT- Patient will complete UB HEP to improve strength in BUEs. Disciplines: OT Intervention: Education, compensatory technique training Frequency: PRN Dates: Start: 12/06/24 Intervention: Education, Therapeutic exercise Frequency: PRN Dates: Start: 12/06/24 Problem: Mobility - Impaired Dates: Start: 12/06/24 Disciplines: OT Goal: OT- bed mobility Dates: Start: 12/06/24 Expected End: 12/13/24 Description: OT - Patient will complete bed mobility with minimal assist in preparation of ADL's. Disciplines: OT Goal: OT- toilet transfer Dates: Start: 12/06/24 Expected End: 12/13/24 Description: OT - Patient will complete toilet transfer with moderate assist to BSC in preparation for ADL's. Disciplines: OT Intervention: Education, ADL/IADL retraining Frequency: PRN Dates: Start: 12/06/24 Intervention: Education, Cognitive reeducation Frequency: PRN Dates: Start: 12/06/24 Intervention: Education, compensatory technique training Frequency: PRN Dates: Start: 12/06/24 Intervention: Education, functional mobility training Frequency: PRN Dates: Start: 12/06/24 Intervention: Education, adaptive equipment training Frequency: PRN Dates: Start: 12/06/24 Description: REMINDER(s):Provide instruction on adaptive equipment. Intervention: Education, neuromuscular reeducation Frequency: PRN Dates: Start: 12/06/24 Intervention: Education, Therapeutic exercise Frequency: PRN Dates: Start: 12/06/24 Intervention: Education, visual/perceptual reeducation Frequency: PRN Dates: Start: 12/06/24 Problem: Self-care Deficit Dates: Start: 12/06/24 Disciplines: OT Goal: OT- feeding Dates: Start: 12/06/24 Expected End: 12/13/24 Description: OT - Patient will complete self-feeding with minimal assist using adaptive utensils to improve self care function. Disciplines: OT Goal: OT- grooming Dates: Start: 12/06/24 Expected End: 12/13/24 Description: OT - Patient will complete grooming with moderate assist while seated EOB to improve self care function. Disciplines: OT Goal: OT- UB dressing Dates: Start: 12/06/24 Expected End: 12/13/24 Description: OT - Patient will complete UB dressing with minimal assist to improve self care function. Disciplines: OT Goal: OT- LB dressing Dates: Start: 12/06/24 Expected End: 12/13/24 Description: OT - Patient will complete LB dressing with maximum assist to improve self care function. Disciplines: OT Goal: OT- toileting Dates: Start: 12/06/24 Expected End: 12/13/24 Description: OT - Patient will complete toileting with minimal assist to improve self care function. Disciplines: OT Intervention: Education, adaptive equipment training Frequency: PRN Dates: Start: 12/06/24 Description: REMINDER(s):Provide instruction on adaptive equipment. Intervention: Education, ADL/IADL retraining Frequency: PRN Dates: Start: 12/06/24 Intervention: Education, Cognitive reeducation Frequency: PRN Dates: Start: 12/06/24 Intervention: Education, compensatory technique training Frequency: PRN Dates: Start: 12/06/24 Intervention: Education, neuromuscular reeducation Frequency: PRN Dates: Start: 12/06/24 Intervention: Education, Therapeutic exercise Frequency: PRN Dates: Start: 12/06/24 Intervention: Education, visual/perceptual reeducation Frequency: PRN Dates: Start: 12/06/24 Frequency of Treatment: 2 days per week This Occupational Therapy Plan of Care will be carried out until: 1.) The OT plan has been resolved or 2.) The patient is discharged from the acute care hospital Cosigned by Heather Zaman PA-C at 12/06/2024 3:30 PM EDT [facility] 12-06-2024 Consult note Formatting of th is note is different from the original. Occupational Therapy 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 EVALUATION AND TREATMENT NOTE Dx: Generalized weakness, frequent falls, impaired coordination 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 EVALUATION Skilled Therapy Needs After Discharge Anticipate Resolution of Current Assessment Limitations Including: Pain, Mechanical Barriers Are OT Skilled Therapy Services Needed After Discharge: Yes Intensity of OT Skilled Therapy: Up to 5 days per week Anticipated Duration of OT Skilled Therapy: > 30 days OT DME Recommendation: To be determined at next level of care Rehab Potential: Good Outcomes Measures Prior Function Daily Activity Raw Score: 13 Prior Function Daily Activity % Impaired: 63.03% AM-PAC Daily Activity Raw Score: 11 AM-PAC Daily Activity % Impaired: 70.42% Occupational Therapy Assessment The patient's current functional participation deficits are feeding, grooming, UE dressing, LE dressing, bathing, toileting, functional mobility. This reduced independence will limit their life roles of premorbid level individual, parent, family member, community member. The patient's co morbidities do significantly affect patient performance in the above activities and roles. The performance deficits are a result of no impairment(s) in generalized debility including strength, range of motion, balance, dexterity, coordination, sensation, acitvity tolerance, pain, insight, safety, and emotional lability. The patient's family / caregiver support is a refrigeration houseman, home setup is a refrigeration houseman, transportation is a refrigeration houseman for return to prior level of function. The patient's compliance is a barrier, awareness of own capacity and performance is a refrigeration houseman to return to prior level of function. During the assessment, significant modification of task was required and multiple treatment options were identified in the plan of care. This consultation required extensive review of the medical and therapy history. Activity Tolerance Activity Tolerance: Tolerates 20 - 30 min activity with multiple rests (On room air, MIN dizziness with positonal changes and intermittent lightheadedness throughout session. Only completed EOB activity on this date.) Therapy Precautions Orthotic Devices: No Weight Bearing Status: [facility] General Rehab Precautions: Fall risk Cognition Overall Cognitive Status: Within Functional Limits Arousal/Alertness: Appropriate responses to stimuli Orientation Level: Oriented X4 Executive functioning: [facility] Safety Judgment: Decreased awareness of need for assistance, Decreased awareness of need for safety Problem Solving: Assistance required to identify errors made, Assistance required to generate solutions, Assistance required to implement solutions Attention: Attends to quiet environment Hearing Status: [facility] Social Interaction: [facility] ADL Feeding: Moderate assist (MOD assist to support cup in hands and bring cup toward mouth. Per pt, limitations in FM coordination and head turning machine operator strength create obstacles with feeding tasks. Discussed adaptive utensils with pt. Pt owns built-up utensils, but stated that they do not help.) Grooming: Moderate assist, Maximal assist (Pt washed face with warm washcloth with MOD assist and combed hair with MAX assist while sitting EOB, back unsupported. MOD assist for washing face and MAX assist for combing hair for thorughness. Pt with decreased FM coordination and ROM, difficulty grasping washcloth and bringing to face, and combing both the sides and back of head.) Upper Body Dressing: Maximal assist, Increased time to complete (MAX assist to doff shirt and don clean shirt while sitting EOB. Pt initiating threading BUEs through shirt, MAX assist for UE positoning/management, complete threading of BUEs and head through shirt, and re-adjusting shirt. Pt educated on UB dressing techniques to compensate for decreased ROM of BUEs.) Lower Body Dressing: Dependent (Therapist provided total assist to thread BLEs through pants (while seated EOB), pull pants up to knees, and hike pants over hips (while standing) using FWW.) UE Assessment L hand dominant RUE ROM/MMT: shoulder flexion ~80 degrees LUE ROM/MMT: shoulder flexion ~115 degrees Medical Review Coordinator strength: 2/5 Finger opposition: Difficulty preforming on both hands. Pt with numbness/tingling in BUEs. Bed Mobility Rolling: Stand by assist, Head of bed elevated Supine to Sit: Maximal assist, Head of bed elevated (MAX assist for trunk support and re-positioning BLEs while seated EOB, cueing for use of bedrails.) Sit to Supine: Maximal assist, Head of bed elevated (MAX assist for trunk support and bringing BLEs back into bed.) Wireless Cellular Technician: bedrails Functional Transfers Sit to Stand: Maximal assist (tolerating ~1 min standing, MAX assist to complete, returned to EOB sitting 2/2 pain and fatigue with activity.) Wireless Cellular Technician: wheeled walker Balance Assessment Static sitting: Minimum assist, Contact guard assist, Standby assist (Intermittently contact, to standby assist throughout session. Pt holding bedrail with L hand, occasional LOB laterally toward L and R sides, MIN assist to correct LOB.) Static standing: Maximum assist, with device gerontology aide: wheeled walker Home Living Obtained Home Living and PLOF info from: Patient, Patient s family member Lives With: Alone Type of Home: Apartment Home Layout: One level Steps to enter home: No Bathroom Shower/Tub: Tub/shower unit Bathroom Equipment: Grab bars in shower, Hand-held showerhead, Toilet seat mail distribution scheme examiner, Tub transfer bench Bathroom Accessibility: Accessible via walker Mobility Equipment: Cane, Wheeled walker, Rollator ADL Equipment: Loss Prevention Consultant Prior Level of Function Receives Help From: Family (Assist from [id number]/sister) Level of Cottle - Transfers/Ambulation/Mobility: Independent with functional transfers, Independent with household ambulation, Independent with community ambulation (Walker and rollator use) Level of Cottle - ADLs: Needs assistance Bathing: Moderate assist Dressing: Maximal assist Toileting: Moderate assist Grooming: Moderate assist Feeding: Moderate assist Level of Cottle - Homemaking: Needs assistance Driving: Patient does not drive Shopping: (Groceries delivered) Vocational: Retired 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 NOTE Total Treatment Time (Total Session Time): 40 Minutes Total Timed Code Treatment Minutes: 12 Minutes Self-Care / ADL Feeding - Skilled Intervention Provided: facilitation, hand over hand cues Feeding - For: UE positioning, compensatory strategies, efficient movement Feeding - Resulting In: neutral response to intervention Upper Body Dressing - Skilled Intervention Provided: patient education, verbal cues, hand over hand cues, facilitation Upper Body Dressing - For: compensatory strategies, UE positioning, UE management, efficient movement Upper Body Dressing - Resulting In: neutral response to intervention Lower Body Dressing - Skilled Intervention Provided: patient education, facilitation Lower Body Dressing - For: LE positioning, LE management, compensatory strategies, fall prevention, proper body mechanics Lower Body Dressing - Resulting In: neutral response to intervention Additional Treatment Details Pts family present during session. Pt supine in bed, bed alarm activated and call light within reach, at end of session. 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 Watters SINUS SURGERY 12/30/2019 balloon sinuplasty - Dr. Key SKIN BIOPSY TONSILLECTOMY TRIGGER FINGER RELEASE Right 03/24/2018 RELEASE A1 TOD LEFT MIDDLE,RING, AND SMALL FINGERS WITH CORTISONE INJECTION RIGHT MIDDLE FINGER A1 TOD; Surgeon: Yonas Nguyen MD TUBAL LIGATION For complete objective data, detailed plan of care and patient education refer to: OT Evaluation flowsheet, OT Evaluation and Treatment flowsheet, OT Treatment flowsheet, patient Plan of Care, Plan of Care progress note, and Patient Education. This note stands as the current Discharge Summary upon patient discharge from the hospital or completion of Occupational Therapy Plan of Care. [facility] 12-06-2024 Note [facility] 12-06-2024 Plan of care note Problem: Falls, Risk of Goal: Absence of falls Outcome: Partially Met Goal: Absence of physical injury Outcome: Partially Met Problem: Pain Goal: Reduced pain sensation Outcome: Partially Met Goal: Control of acute pain to acceptable level Outcome: Partially Met Goal: Able to cope with pain Outcome: Partially Met Goal: Able to achieve maximum level of physical functioning Outcome: Partially Met Goal: Able to achieve maximum level of psychosocial functioning Outcome: Partially Met Problem: Actual or potential alteration in health Goal: Absence of healthcare acquired conditions Outcome: Partially Met Goal: Knowledge of Interdisciplinary Plan of Care Outcome: Partially Met Goal: Knowledge of Enviroment Outcome: Partially Met Problem: Pressure Injury, Risk of Goal: Absence of pressure injury Outcome: Partially Met [facility] 12-05-2024 Consult note Associated Order (s): IP CONSULT TO CARE MANAGEMENT Care Management Consult Note Date: 12/05/2024 Time: 2:55 PM Patient Name: Elizabeth Cisneros Date of : 1950 Reason for Consult: Discharge planning Discharge Plan: Plan A: Detention Facility Plan A : Post Acute Patient Choice 1: [facility] (DECLINED NO BEDS) Plan A : Post Acute Patient Choice 2: [facility] Plan A : Post Acute Patient Choice 3: Other ([facility] [place]) Discharging Transportation Plan: To be determined Discharge Plan Status: CM consulted for discharge planning. Pt and pt's son, Emery, both educated on the role of CM and discussed discharge planning. Pt states she as been falling a lot at home and now she is unable to walk. Pt is pending PT/OT evaluations, pt and son gave the above choices for SNFs. Kamini JAIMES notified to send referrals. CM will continue to follow. Pt has [employer] Managed Medicare insurance with traditional Medicaid as a secondary. Pt's PCP is Dr. Motley. Assessment and Background Information: Pt states that she lives alone in a 1 story apartment with no steps to get into the home. Pt states she needs help with all her ADLs and has been falling a lot. Pt states she use to drive but her sister in law has been driving her around. She has progressively gotten weaker, Emery states he could barely get her into the car to bring her to the ED yesterday. Pt and son states she lives on a very low income and has trouble with food/medications/bills. Resources added to her AVS. Living Arrangements: Alone Support Systems: Children Assistance Needed: Case management Type of Residence: Private residence Prior to Admission Home Care Services: No Current Home Equipment: Tub/Shower chair, Adaptive equipment, Front-wheeled walker, Rollator, Cane SDOH Needs Addressed: Transportation Needs, Utilities Resources Provided - Transportation Needs: Added to AVS Resources Provided - Utilities: Added to AVS Holistic Assessment Medication adherence problem:: (!) Yes Barriers to medication adherence: Other (comment) (cost & getting PCP to do prior auths) History of falls in last 6 months:: (!) Yes Family aware of the patient's advance care planning wishes:: No Do you have any cultural/spiritual connections or beliefs that would impact how we deliver your care?: No Chronic pain:: No [facility] 12-05-2024 Plan of care note Problem: Falls, Risk of Goal: Absence of falls Outcome: Partially Met Goal: Absence of physical injury Outcome: Partially Met Problem: Pain Goal: Reduced pain sensation Outcome: Partially Met Goal: Control of acute pain to acceptable level Outcome: Partially Met Goal: Able to cope with pain Outcome: Partially Met Goal: Able to achieve maximum level of physical functioning Outcome: Partially Met Goal: Able to achieve maximum level of psychosocial functioning Outcome: Partially Met Problem: Actual or potential alteration in health Goal: Absence of healthcare acquired conditions Outcome: Partially Met Goal: Knowledge of Interdisciplinary Plan of Care Outcome: Partially Met Goal: Knowledge of Enviroment Outcome: Partially Met Problem: Pressure Injury, Risk of Goal: Absence of pressure injury Outcome: Partially Met [facility] 12-05-2024 Note [facility] 12-05-2024 Hospital Discharge instructions Miriam Muñoz, CHENCHO - 12/05/2024 10:16 AM EDT Images from the original note were not included. Miriam Muñoz RN - 12/05/2024 10:05 AM EDT TRANSPORTATION Agency Transportation Advisory Committee [facility] Regional Planning Commission [address] [place] [address] Coordination of available transportation for people with disabilities, people over 60, or those who are otherwise disadvantaged. [employer] [address] [place] [address] Service available 7 days a week 24 hours a day [employer] *Bus Stop Only [address] [place] [address] Job & Family Services [facility] [address] [place] [address] The Enhanced Medicaid Transportation Services (EXTRACTOR TENDER RAW STOCK) program provides non-emergency transportation for Medicaid eligible recipients. [facility] Transit (RCT) [address] [place] [address] Tickets Bus Terminal Buses cover nearly all of the [facility], portions of [place] and [facility], the [facility], and industrial areas. This is the most flexible and cost effective transportation available. [facility] RESOURCE GUIDE FCP/SOCIAL SERVICE/RESOURCE GUIDES June 14, 2020 Utility Resources: [facility] Office [address] [place] [address] Provides assistance with home repairs. [facility] [address] [place] [address] Direct senior financial reporting accountant assistance with rent, utilities, etc. Furniture linkage for persons in need of furniture, school clothes, exchange in March for school age children and youth to receive school supplies and clothes. [facility] [address] [address] Helps with housing, rent, food, and shoes, during school months [employer] Community Dev. Office [facility] [address] [place], [place] [id number] Provides assistance with home repairs. Community Action Commission [facility] Sat[facility] HEAP Program (Winter & Summer) [address] [place], [place] [id number] Provides emergency [employer] [address] [place] [address] Material assistance program which includes food, prescription, rent, and medical bills. [employer] (H.O.P.E. Pantry) Your estimated length of stay at [facility] ([facility]) is 20 days. The following attachments cannot be sent through Care Everywhere.Transportation Insecurity: General Info (Israeli)Food Insecurity: General Info (Israeli)documented in this encounter [facility] 12-04-2024 Progress note Formatting of t his note might be different from the original. Pt having break through pain at this time. Notified Orlando Lawson, new order to increase frequency of percocet to Q4H PRN. [facility] 12-04-2024 Progress note Formatting of t his note might be different from the original. Pt unable to stand up right long enough to do orthostatic vitals. Orlando Lawson notified. [facility] 12-04-2024 Progress note Formatting of t his note might be different from the original. Reviewed pt plan set forth by Sallie Stewart and agree with her plan. Evaluated pt in her room . She is having pain from her recent falls. Ordered oxycodone per her request . [facility] will follow PT OT and telehealth case manager evaluations [facility] 12-04-2024 History and physical note [facility] HISTORY AND PHYSICAL -- [facility] Patient Name: Elizabeth Cisneros : 1950 MR #: [id number] Admit Date: 12/04/2024 Physicians: Sj Motley MD (Family); Leana Will,Jazmyn (Referring) Elizabeth Cisneros is a 74 y.o. female patient of Sj Motley MD with history of anxiety, depression, diabetes, coronary artery disease, COPD, GERD, dyslipidemia, hypertension and hypothyroidism presented as a transfer to [facility] on 12/04/2024 for generalized weakness. Generalized Weakness Frequent Falls Recent admission (10/25/24) for acute pancreatitis and pneumonia - following discharge patient was seen by PT (at home) but has recently declined their services CT head (12/03/24) - no acute intracranial findings CT pelvis w/o contrast (12/03/24) - no definitive acute fractures in either hip or bony pelvis Afebrile, WBC 5.37, Lactic acid 1.4, UA - negative Fall precautions Orthostatic vitals signs Consult Case Management, PT & OT Constipation CT pelvis w/o contrast (12/03/24) - large amount of retained feces in the rectal vault with surrounding inflammation concerning for stercoral colitis Bowel regimen Encourage high fiber diet Hold Ferrous Sulfate Coronary Artery Disease Arteriosclerotic Vascular Disease Mitral Valve Prolapse EKG - sinus rhythm w/ premature supraventricular complexes Echo w/ EF 55% (10/31/24) - normal LV size and systolic function, normal wall motion, right ventricular size and systolic function are normal, left ventricular diastolic function is normal, no significant valvular heart disease is present COPD w/o Exacerbation Baseline RA - currently on RA Continue Bevespi Aerosphere & Pulmicort Continue Claritin & Singulair GERD Continue Protonix Hyperlipidemia Denies current medications Lipid panel - pending Hypertension Continue Atenolol Hypothyroidism TSH - 1.43 (10/25/24) Repeat TSH w/ reflex T4 Continue Levothyroxine Iron deficiency anemia Continue Folic Acid Hold Ferrous Sulfate d/t constipation Chronic Hyponatremia Sodium - pending Restless Leg Syndrome Continue Remeron Anxiety/Depression Continue Venlafaxine (Pristiq substitute) Residence prior to admission: house or apartment Was patient transferred from outlying hospital or ED yes -- care site [facility] ER Quality Measures DVT Prophylaxis: heparin subcutaneous Payton Catheter: absent Medication Reconciliation: Verified Admitted with these risk variables:Electrolyte Disturbance: Hyponatremia and Chronic Fatigue/Reduced Mobility . Please see assessment and plan for further details. Estimated Date of Discharge less than 2 midnights Code Status Full Code; code status verified on 12/04/2024 with patient (capacity intact) Chief Complaint Generalized Weakness History of Present Illness Elizabeth Cisneros is a 74 y.o. female patient of Sj Motley MD with history of anxiety, depression, diabetes, coronary artery disease, COPD, GERD, dyslipidemia, hypertension and hypothyroidism presented as a transfer to [facility] on 12/04/2024 for generalized weakness. Patient c/o worsening generalized weakness resulting in decreased ability to ambulate and increased falls. Patient's last fall was 11/30/24 in which she struck her head without loss of consciousness. Patient states her falls are precipitated by a loss of balance noting her bilateral hand grasp is weak making it hard to stay steady/balanced with her walker. Patient does live by herself and will often call her neighbor to help her get up off the floor following a fall. Patient denies c/o fever, malaise, chest pain/palpitations/pressure, worsening dyspnea, nausea/vomiting, diarrhea or dysuria. Patient was referred for admission. 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 Watters SINUS SURGERY 12/30/2019 balloon sinuplasty - Dr. Key SKIN BIOPSY TONSILLECTOMY TRIGGER FINGER RELEASE Right 03/24/2018 RELEASE A1 TOD LEFT MIDDLE,RING, AND SMALL FINGERS WITH CORTISONE INJECTION RIGHT MIDDLE FINGER A1 TOD; Surgeon: Yonas Nguyen MD TUBAL LIGATION Family History Family History Problem Relation Age of Onset Hypertension Father Asthma Father COPD Father Diabetes Father Hearing loss Father Heart disease Father Hyperlipidemia Father Osteoporosis Mother Hypertension Mother Arthritis Mother Cancer Mother Heart disease Mother Heart disease Maternal Grandfather Heart disease Sister Hypertension Sister Cancer Brother Asthma Brother Diabetes Brother Anesthesia problems Neg Hx Hip fracture Neg Hx Social History Tobacco Use History[1] Social History Substance and Sexual Activity Alcohol Use No Social History Substance and Sexual Activity Drug Use No Allergy Information I have reviewed the patient's allergies. Penicillin g, Sulfa (sulfonamide antibiotics), Trazodone, Nsaids (non-steroidal anti-inflammatory drug), Celecoxib, Levofloxacin, [place], Niacin, Sulfites, and Cephalexin Home Medications Home medications were reviewed. Review Of Systems All relevant systems have been reviewed and are negative except as noted in HPI or below Physical Examination BP (!) 158/86 Pulse 83 Temp 98.4 F (36.9 C) (Oral) Resp 16 Ht 5' 3 Wt 54.9 kg (121 lb 0.5 oz) SpO2 92% BMI 21.44 kg/m General Appearance: alert; acute on chronically ill appearing; in no acute distress HEENT: Head- normocephalic; Eyes- EOMI, sclera anicteric; Throat- mucous membranes moist Cardiovascular: regular rate and rhythm; normal S1, S2; no murmurs, rubs, clicks or gallops; peripheral edema absent Respiratory: lungs clear to auscultation; without wheezes, rales or rhonchi; on room air Abdomen: soft, non-tender, non-distended Neurological: oriented x 3; normal speech; no focal findings or movement disorder noted Musculoskeletal: no significant deformity or tenderness to palpation Skin: normal coloration Psych: normal mood and affect [1] Social History Tobacco Use Smoking Status Former Current packs/day: 0.00 Average packs/day: 1.5 packs/day for 42.1 years (63.1 ttl pk-yrs) Types: Cigarettes Start date: 1979 Quit date: 09/17/2021 Years since quittin.2 Passive exposure: Past Smokeless Tobacco Never Tobacco Comments Cigarettes Cosigned by Gadiel Stroud MD at 12/04/2024 6:48 AM EDT Associated attestation - Gadiel Stroud MD - 12/04/2024 6:48 AM EDT I did not participate in the care of the patient or review their chart during this encounter but am cosigning due to [facility] CareConnect Policy. A physician from our Practice was continuously available for direct communication with the [facility] if needed. [facility] 12-04-2024 History and physical note [facility] HIST[facility] AND PHYSICAL -- [facility] Patient Name: Elizabeth Cisneros : 1950 MR #: [id number] Admit Date: 12/04/2024 Physicians: Sj Motley MD (Family); Leana Will,* (Referring) Elizabeth Cisneros is a 74 y.o. female patient of Sj Motley MD with history of anxiety, depression, diabetes, coronary artery disease, COPD, GERD, dyslipidemia, hypertension and hypothyroidism presented as a transfer to [facility] on 12/04/2024 for generalized weakness. Generalized Weakness Frequent Falls Recent admission (10/25/24) for acute pancreatitis and pneumonia - following discharge patient was seen by PT (at home) but has recently declined their services CT head (12/03/24) - no acute intracranial findings CT pelvis w/o contrast (12/03/24) - no definitive acute fractures in either hip or bony pelvis Afebrile, WBC 5.37, Lactic acid 1.4, UA - negative Fall precautions Orthostatic vitals signs Consult Case Management, PT & OT Constipation CT pelvis w/o contrast (12/03/24) - large amount of retained feces in the rectal vault with surrounding inflammation concerning for stercoral colitis Bowel regimen Encourage high fiber diet Hold Ferrous Sulfate Coronary Artery Disease Arteriosclerotic Vascular Disease Mitral Valve Prolapse EKG - sinus rhythm w/ premature supraventricular complexes Echo w/ EF 55% (10/31/24) - normal LV size and systolic function, normal wall motion, right ventricular size and systolic function are normal, left ventricular diastolic function is normal, no significant valvular heart disease is present COPD w/o Exacerbation Baseline RA - currently on RA Continue Bevespi Aerosphere & Pulmicort Continue Claritin & Singulair GERD Continue Protonix Hyperlipidemia Denies current medications Lipid panel - pending Hypertension Continue Atenolol Hypothyroidism TSH - 1.43 (10/25/24) Repeat TSH w/ reflex T4 Continue Levothyroxine Iron deficiency anemia Continue Folic Acid Hold Ferrous Sulfate d/t constipation Chronic Hyponatremia Sodium - pending Restless Leg Syndrome Continue Remeron Anxiety/Depression Continue Venlafaxine (Pristiq substitute) Residence prior to admission: house or apartment Was patient transferred from outlying hospital or ED yes -- care site [facility] ER Quality Measures DVT Prophylaxis: heparin subcutaneous Payton Catheter: absent Medication Reconciliation: Verified Admitted with these risk variables:Electrolyte Disturbance: Hyponatremia and Chronic Fatigue/Reduced Mobility . Please see assessment and plan for further details. Estimated Date of Discharge less than 2 midnights Code Status Full Code; code status verified on 12/04/2024 with patient (capacity intact) Chief Complaint Generalized Weakness History of Present Illness Elizabeth Cisneros is a 74 y.o. female patient of Sj Motley MD with history of anxiety, depression, diabetes, coronary artery disease, COPD, GERD, dyslipidemia, hypertension and hypothyroidism presented as a transfer to [facility] on 12/04/2024 for generalized weakness. Patient c/o worsening generalized weakness resulting in decreased ability to ambulate and increased falls. Patient's last fall was 11/30/24 in which she struck her head without loss of consciousness. Patient states her falls are precipitated by a loss of balance noting her bilateral hand grasp is weak making it hard to stay steady/balanced with her walker. Patient does live by herself and will often call her neighbor to help her get up off the floor following a fall. Patient denies c/o fever, malaise, chest pain/palpitations/pressure, worsening dyspnea, nausea/vomiting, diarrhea or dysuria. Patient was referred for admission. 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 Watters SINUS SURGERY 12/30/2019 balloon sinuplasty - Dr. Key SKIN BIOPSY TONSILLECTOMY TRIGGER FINGER RELEASE Right 03/24/2018 RELEASE A1 TOD LEFT MIDDLE,RING, AND SMALL FINGERS WITH CORTISONE INJECTION RIGHT MIDDLE FINGER A1 TOD; Surgeon: Yonas Nguyen MD TUBAL LIGATION Family History Family History Problem Relation Age of Onset Hypertension Father Asthma Father COPD Father Diabetes Father Hearing loss Father Heart disease Father Hyperlipidemia Father Osteoporosis Mother Hypertension Mother Arthritis Mother Cancer Mother Heart disease Mother Heart disease Maternal Grandfather Heart disease Sister Hypertension Sister Cancer Brother Asthma Brother Diabetes Brother Anesthesia problems Neg Hx Hip fracture Neg Hx Social History Tobacco Use History[1] Social History Substance and Sexual Activity Alcohol Use No Social History Substance and Sexual Activity Drug Use No Allergy Information I have reviewed the patient's allergies. Penicillin g, Sulfa (sulfonamide antibiotics), Trazodone, Nsaids (non-steroidal anti-inflammatory drug), Celecoxib, Levofloxacin, [place], Niacin, Sulfites, and Cephalexin Home Medications Home medications were reviewed. Review Of Systems All relevant systems have been reviewed and are negative except as noted in HPI or below Physical Examination BP (!) 158/86 Pulse 83 Temp 98.4 F (36.9 C) (Oral) Resp 16 Ht 5' 3 Wt 54.9 kg (121 lb 0.5 oz) SpO2 92% BMI 21.44 kg/m General Appearance: alert; acute on chronically ill appearing; in no acute distress HEENT: Head- normocephalic; Eyes- EOMI, sclera anicteric; Throat- mucous membranes moist Cardiovascular: regular rate and rhythm; normal S1, S2; no murmurs, rubs, clicks or gallops; peripheral edema absent Respiratory: lungs clear to auscultation; without wheezes, rales or rhonchi; on room air Abdomen: soft, non-tender, non-distended Neurological: oriented x 3; normal speech; no focal findings or movement disorder noted Musculoskeletal: no significant deformity or tenderness to palpation Skin: normal coloration Psych: normal mood and affect [1] Social History Tobacco Use Smoking Status Former Current packs/day: 0.00 Average packs/day: 1.5 packs/day for 42.1 years (63.1 ttl pk-yrs) Types: Cigarettes Start date: 1979 Quit date: 09/17/2021 Years since quittin.2 Passive exposure: Past Smokeless Tobacco Never Tobacco Comments Cigarettes Cosigned by Gadiel Stroud MD at 12/04/2024 6:48 AM EDT Associated attestation - Gadiel Stroud MD - 12/04/2024 6:48 AM EDT I did not participate in the care of the patient or review their chart during this encounter but am cosigning due to [facility] Policy. A physician from our Practice was continuously available for direct communication with the [facility] if needed. documented in this encounter [facility] 12-04-2024 Plan of care note Problem: Falls, Risk of Goal: Absence of falls Outcome: Partially Met Goal: Absence of physical injury Outcome: Partially Met Problem: Pain Goal: Reduced pain sensation Outcome: Partially Met Goal: Control of acute pain to acceptable level Outcome: Partially Met Goal: Able to cope with pain Outcome: Partially Met Goal: Able to achieve maximum level of physical functioning Outcome: Partially Met Goal: Able to achieve maximum level of psychosocial functioning Outcome: Partially Met Problem: Actual or potential alteration in health Goal: Absence of healthcare acquired conditions Outcome: Partially Met Goal: Knowledge of Interdisciplinary Plan of Care Outcome: Partially Met Goal: Knowledge of Enviroment Outcome: Partially Met Problem: Pressure Injury, Risk of Goal: Absence of pressure injury Outcome: Partially Met [facility] 11-17-2024 Telephone encounter Note Reviewed echo results with pt per Dr. Rincon and answered all questions regarding her test. She expressed appreciation and understanding and denies any further questions at this time. [facility] 11-17-2024 Miscellaneous Notes Reviewed echo results with pt per Dr. Rincon and answered all questions regarding her test. She expressed appreciation and understanding and denies any further questions at this time. Left a voicemail for pt to discuss echo results and her questions, asked that she call back. Called pt with echo results. Pt does have a few questions regarding her results. Will forward to RN. ----- Message from Nurse Zoraida Monteiro sent at 11/16/2024 9:19 AM EDT ----- ----- Message ----- From: Zhao Rincon MD Sent: 11/15/2024 5:45 PM EDT To: Zoraida Zapata RN Echo looks normal ----- Message ----- From: Ross, Rad In [employer] Sent: 11/15/2024 5:11 PM EDT To: Zhao Rincon MD documented in this encounter [facility] 11-16-2024 Telephone encounter Note Left a voicemail for pt to discuss echo results and her questions, asked that she call back. [facility] 11-16-2024 Miscellaneous Notes Left a voicemail for pt to discuss echo results and her questions, asked that she call back. Called pt with echo results. Pt does have a few questions regarding her results. Will forward to RN. ----- Message from Nurse Zoraida Monteiro sent at 11/16/2024 9:19 AM EDT ----- ----- Message ----- From: Zhao Rincon MD Sent: 11/15/2024 5:45 PM EDT To: Zoraida Zapata RN Echo looks normal ----- Message ----- From: Jason Hawkins In [employer] Sent: 11/15/2024 5:11 PM EDT To: Zhao Rincon MD documented in this encounter [facility] 11-16-2024 Telephone encounter Note Called pt with echo results. Pt does have a few questions regarding her results. Will forward to RN. [facility] 11-16-2024 Telephone encounter Note ----- Message from Nurse Zoraida Monteiro sent at 11/16/2024 9:19 AM EDT ----- ----- Message ----- From: Zhao Rincon MD Sent: 11/15/2024 5:45 PM EDT To: Zoraida Zapata RN Echo looks normal ----- Message ----- From: Interface Rad In [employer]ch[employer] Sent: 11/15/2024 5:11 PM EDT To: Zhao Rincon MD [facility] 11-11-2024 History of Present illness Narrative Documentation received for pt. Provider reviewed and signed. Faxed back to number provided and sent to [employer] to be scanned to chart. documented in this encounter [facility] 11-09-2024 History of Present illness Narrative Documentation received for pt. Provider reviewed and signed. Faxed back to the number provided and sent to [employer] to be scanned to pt chart. documented in this encounter [facility] 11-01-2024 Telephone encounter Note Last OV 06/14/24. Next OV 03/13/25. [facility] 11-01-2024 Miscellaneous Notes Last OV 06/14/24. Next OV 03/13/25. documented in this encounter [facility] 10-31-2024 History of Present illness Narrative General Cardiology New Patient Clinic Consult [facility] 10/31/2024 Zhao Rincon MD [address] [place] [id number] Patient: Elizabeth Cisneros Date of : 1950 (74 y.o.) Referring Provider: Luis Eduardo Collier* PCP: Sj Motley MD Date of Service: 10/31/2024 Chief Complaint: Initial Visit (Intake) (Surgery with Dr. Collier on 11/23/24, Cervical 3- Cervical 7 Laminectomy, Cervical 3-1-4-9-5-Mffjgrff 1-2-3-4 Posterior Instrumentation and Posteriorlateral Fusion/ ) Assessment and Plan: 1. Pre-operative cardiovascular examination (Primary) Patient's perioperative cardiovascular event risk for spinal surgery Is 0.5% This is considered low risk from a cardiovascular perspective Given her lower extremity edema which is likely secondary to aggressive fluid resuscitation from pancreatitis, we will proceed with an echocardiogram which should be done prior to her proposed surgery Otherwise she was able to perform at least 4 metabolic equivalents of activity prior to pancreatitis, and given low risk, would not recommend additional stress testing From a noncardiac perspective however, patient is very frail needing assistive devices for ambulation, she is currently struggling with hyponatremia, and recently had acute pancreatitis, just discharged last week (after her office visit with Dr. Collier) We will convey these issues to her surgical team, plan for an echocardiogram for additional information and final decisions depending those results It has been a pleasure caring for this patient. Please don't hesitate to reach out to my office directly with any questions or concerns. Follow-up: Return if symptoms worsen or fail to improve. Zhao Rincon MD, [facility] Non-Invasive Cardiology [facility] P:[phone] F:[phone] History of Present Illness: Elizabeth Cisneros is a 74 y.o. woman with no significant cardiovascular history who presents today for preoperative evaluation prior to cervical decompression laminectomy with thoracic fusion. Unfortunately since her office visit with her neurosurgeon Dr. Collier, she was admitted last week with acute pancreatitis, and has been struggling with hyponatremia and hypochloremia. She is [facility], Dr. Hickey. She presents today in the company of her son. Prior to her fall in May after leaving the chiropractor's office where she sustained a subarachnoid hemorrhage and cervical fracture she was actually quite ambulatory, and now she struggles to walk from her building to her car, though she is able to do so without any symptoms of exertional chest pressure or shortness of breath. She has been struggling with some lower extremity edema after fluid resuscitation with pancreatitis 2 weeks ago. She denies any orthopnea. She lives independently, and is able to do her activities of daily living. She denies any palpitations near syncope or syncope with exertion Objective Review of Systems: All systems were reviewed and are noted to be negative unless otherwise stated in HPI. 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 Watters SINUS SURGERY 12/30/2019 balloon sinuplasty - Dr. Key SKIN BIOPSY TONSILLECTOMY TRIGGER FINGER RELEASE Right 03/24/2018 RELEASE A1 TOD LEFT MIDDLE,RING, AND SMALL FINGERS WITH CORTISONE INJECTION RIGHT MIDDLE FINGER A1 TOD; Surgeon: Yonas Nguyen MD TUBAL LIGATION Family History Problem Relation Age of Onset Hypertension Father Asthma Father COPD Father Diabetes Father Hearing loss Father Heart disease Father Hyperlipidemia Father Osteoporosis Mother Hypertension Mother Arthritis Mother Cancer Mother Heart disease Mother Heart disease Maternal Grandfather Heart disease Sister Hypertension Sister Cancer Brother Asthma Brother Diabetes Brother Anesthesia problems Neg Hx Hip fracture Neg Hx Social History Tobacco Use Smoking Status Former Current packs/day: 0.00 Average packs/day: 1.5 packs/day for 42.1 years (63.1 ttl pk-yrs) Types: Cigarettes Start date: 1979 Quit date: 09/17/2021 Years since quittin.1 Passive exposure: Past Smokeless Tobacco Never Tobacco Comments Cigarettes Allergies: Penicillin g, Sulfa (sulfonamide antibiotics), Trazodone, Celecoxib, Levofloxacin, [place], Niacin, Sulfites, and Cephalexin All of the information has been reviewed at today's visit and modified if necessary. Home Medications: Current Outpatient Medications: acetaminophen (TYLENOL) 500 MG tablet, Take 1 (one) tablet (500 mg total) by mouth every 6 (six) hours as needed for pain THREE TIMES DAILY ., Disp: , Rfl: albuterol (PROVENTIL) 2.5 mg /3 mL (0.083 %) nebulizer solution, Take 3 mL (2.5 mg total) by nebulization every 6 (six) hours as needed for wheezing ., Disp: 360 mL, Rfl: 12 albuterol (PROVENTIL) 2.5 mg /3 mL (0.083 %) nebulizer solution, Take 3 mL (2.5 mg total) by nebulization every 6 (six) hours as needed for wheezing ., Disp: 75 mL, Rfl: 0 albuterol 90 mcg/actuation inhaler, Inhale 1 (one) puff to 2 (two) puffs every 4 to 6 hours as needed ., Disp: , Rfl: atenoloL (TENORMIN) 50 MG tablet, Take 1 (one) tablet (50 mg total) by mouth 2 (two) times a day ., Disp: 120 tablet, Rfl: 0 [place] Saline Gel, Apply topically 2 (two) times a day Apply a pea sized amount to both nostrils at bedtime and in a.m. You can use it more often.., Disp: 14.1 g, Rfl: 12 Bevespi Aerosphere 9-4.8 mcg HFAA, Inhale 2 puffs 2 (two) times a day ., Disp: 10.7 g, Rfl: 11 budesonide (PULMICORT) 0.5 mg/2 mL nebulizer solution, Take 2 mL (0.5 mg total) by nebulization 2 (two) times a day ., Disp: 60 mL, Rfl: 11 CALCITRATE 200 mg (950 mg) tablet, Take 200 mg by mouth 3 (three) times a day ., Disp: , Rfl: 0 desvenlafaxine succinate (PRISTIQ) 100 MG 24 hr tablet, Take 1 (one) tablet (100 mg total) by mouth daily ., Disp: 30 tablet, Rfl: 2 diclofenac sodium 1% (VOLTAREN) 1 % Gel, Apply topically 4 (four) times a day as needed for pain ., Disp: 450 g, Rfl: 2 ferrous sulfate 325 (65 FE) MG tablet, Take 1 (one) tablet (325 mg total) by mouth daily with breakfast Start: 10/28/24., Disp: 30 tablet, Rfl: 0 fexofenadine (LASHA) 180 MG tablet, Take 1 (one) tablet (180 mg total) by mouth daily ., Disp: , Rfl: Fish OiL 1,200 (144-216) mg cap, Take 1 capsule by mouth 3 (three) times a day ., Disp: , Rfl: fluticasone propionate (FLONASE) 50 mcg/actuation nasal spray, Instill 2 (two) sprays into each nostril 2 (two) times a day ., Disp: 18.2 mL, Rfl: 3 folic acid (FOLVITE) 1 MG tablet, Take 1 (one) tablet (1 mg total) by mouth daily ., Disp: , Rfl: furosemide (LASIX) 20 MG tablet, Take 1 (one) tablet (20 mg total) by mouth daily as needed (for lower extremity edema) ., Disp: 30 tablet, Rfl: 0 guaiFENesin (MUCINEX) 600 mg 12 hr tablet, Take 2 (two) tablets (1,200 mg total) by mouth 2 (two) times a day ., Disp: , Rfl: ketoconazole (NIZORAL) 2 % cream, Apply topically daily to feet ., Disp: , Rfl: lansoprazole (PREVACID) 30 MG capsule, Take 1 capsule by mouth every morning before breakfast on an empty stomach. ., Disp: 90 capsule, Rfl: 3 levothyroxine (SYNTHROID, LEVOTHROID) 75 MCG tablet, Take 1 (one) tablet (75 mcg total) by mouth every morning DOS ., Disp: 90 tablet, Rfl: 1 magnesium glycinate 100 mg Tab, Take 2.5 (two and a half) tablets (250 mg total) by mouth 2 (two) times a day ., Disp: , Rfl: metaxalone (SKELAXIN) 800 MG tablet, Take 1 (one) tablet (800 mg total) by mouth 3 (three) times a day as needed for muscle spasms ., Disp: 90 tablet, Rfl: 1 metroNIDAZOLE (METROGEL) 1 % gel, Apply once daily to entire face, Disp: , Rfl: mirtazapine (REMERON) 45 MG tablet, Take 1 (one) tablet (45 mg total) by mouth nightly ., Disp: 30 tablet, Rfl: 2 montelukast (SINGULAIR) 10 mg tablet, Take 1 (one) tablet (10 mg total) by mouth nightly ., Disp: 30 tablet, Rfl: 11 mupirocin (BACTROBAN) 2 % ointment, Apply topically 2 (two) times a day ., Disp: 22 g, Rfl: 0 Nucala 100 mg/mL AtIn, Inject 1 mL (100 mg total) under the skin every 28 days ., Disp: 3 mL, Rfl: 11 Prolia 60 mg/mL Syrg, Inject 60 (sixty) mg under the skin once for 1 dose., Disp: , Rfl: sodium chloride 1,000 mg TbSO, Take 1 (one) tablet (1,000 mg total) by mouth 2 (two) times a day with meals ., Disp: 60 tablet, Rfl: 0 Therems-M 9 mg iron-400 mcg Tab, Take 1 (one) tablet by mouth daily ., Disp: , Rfl: ubrogepant (Ubrelvy) 100 mg Tab, Take 1 (one) tablet (100 mg total) by mouth at bedtime as needed (migraines) ., Disp: 10 tablet, Rfl: 3 VITAMIN D3 2,000 unit cap, Take 1 (one) capsule by mouth 2 (two) times a day ., Disp: , Rfl: 0 zinc gluconate 50 mg tablet, Take 1 (one) tablet (50 mg total) by mouth daily ., Disp: , Rfl: ketorolac (TORADOL) 10 mg tablet, Take 1 (one) tablet (10 mg total) by mouth every 6 (six) hours as needed ., Disp: 12 tablet, Rfl: 0 oxyCODONE-acetaminophen (PERCOCET) 5-325 mg per tablet, Take 1 (one) tablet by mouth daily as needed for pain ., Disp: 30 tablet, Rfl: 0 Physical Exam: BP 126/74 (BP Location: Left arm, Patient Position: Sitting, BP Cuff Size: Adult) Pulse 85 Ht 5' 3 Wt 58 kg (127 lb 14.4 oz) SpO2 94% BMI 22.66 kg/m Constitutional: Well appearing female, no acute distress Head: Normocephalic and atraumatic. Eyes: Conjunctivae are normal, no scleral icterus, no corneal arcus Neck: No acanthosis nigricans, no elevated jugular venous distension, no hepatojugular reflux Cardiovascular: Regular rate and rhythm, no murmurs appreciated on today's exam, normal S1 and S2, no rubs or gallops, PMI is midline Pulses: +2 dorsalis pedis pulses bilaterally Musculoskeletal: Normal range of motion. No cyanosis. No peripheral Edema Neurological: AOx3, moving all extremities normally Skin: Skin is warm and dry, normal hair pattern Psychiatric: Normal mood and affect, appropriate conversation Cardiovascular Studies: EKG 10/31/2024 shows normal sinus rhythm with no evidence of ischemia or infarction Holter monitor from 2022 demonstrates normal sinus rhythm with no evidence of atrial fibrillation Labs: Lab Results Component Value Date GLUCOSE 140 (H) 10/27/2024 CALCIUM 8.3 (L) 10/27/2024 NA 133 (L) 10/27/2024 K 3.4 (L) 10/27/2024 CL 100 10/27/2024 BUN 11 10/27/2024 CREATININE 0.72 10/27/2024 Lab Results Component Value Date ALT 18 10/25/2024 AST 25 10/25/2024 ALKPHOS 87 10/25/2024 BILITOT 0.7 10/25/2024 Lab Results Component Value Date WBC 10.16 10/25/2024 HGB 12.5 10/25/2024 HCT 36.6 10/25/2024 MCV 93.8 10/25/2024 PLT 277 10/25/2024 RBC 3.90 (L) 10/25/2024 Lab Results Component Value Date CHOL 244 (H) 09/18/2023 LDLCALC 130 09/18/2023 TRIG 130 09/18/2023 HDL 88 09/18/2023 Lab Results Component Value Date HGBA1C 6.0 (H) 10/25/2024 Lab Results Component Value Date ALT 18 10/25/2024 AST 25 10/25/2024 ALKPHOS 87 10/25/2024 BILITOT 0.7 10/25/2024 The 10-year ASCVD risk score (Donna SHER, et al., 2019) is: 40.3% Values used to calculate the score: Age: 74 years Sex: Female Is Non- : No Diabetic: Yes Tobacco smoker: No Systolic Blood Pressure: 126 mmHg Is BP treated: Yes HDL Cholesterol: 88 mg/dL Total Cholesterol: 244 mg/dL documented in this encounter [facility] 10-31-2024 Note General Cardiology N ew Patient Clinic Consult [facility] 10/31/2024 Zhao Rincon MD [address] [place] [phone] Patient: Elizabeth Cisneros Date of : 1950 (74 y.o.) Referring Provider: Luis Eduardo Collier* PCP: Sj Motley MD Date of Service: 10/31/2024 Chief Complaint: Initial Visit (Intake) (Surgery with Dr. Collier on 11/23/24, Cervical 3- Cervical 7 Laminectomy, Cervical 7-8-0-0-5-Xrmxviex 1-2-3-4 Posterior Instrumentation and Posteriorlateral Fusion/ ) Assessment and Plan: 1. Pre-operative cardiovascular examination (Primary) Patient's perioperative cardiovascular event risk for spinal surgery Is 0.5% This is considered low risk from a cardiovascular perspective Given her lower extremity edema which is likely secondary to aggressive fluid resuscitation from pancreatitis, we will proceed with an echocardiogram which should be done prior to her proposed surgery Otherwise she was able to perform at least 4 metabolic equivalents of activity prior to pancreatitis, and given low risk, would not recommend additional stress testing From a noncardiac perspective however, patient is very frail needing assistive devices for ambulation, she is currently struggling with hyponatremia, and recently had acute pancreatitis, just discharged last week (after her office visit with Dr. Collier) We will convey these issues to her surgical team, plan for an echocardiogram for additional information and final decisions depending those results It has been a pleasure caring for this patient. Please don't hesitate to reach out to my office directly with any questions or concerns. Follow-up: Return if symptoms worsen or fail to improve. Zhao Rincon MD, [facility] Non-Invasive Cardiology [facility] P:[phone] F:[phone] ---- History of Present Illness: Elizabeth Cisneros is a 74 y.o. woman with no significant cardiovascular history who presents today for preoperative evaluation prior to cervical decompression laminectomy with thoracic fusion. Unfortunately since her office visit with her neurosurgeon Dr. Collier, she was admitted last week with acute pancreatitis, and has been struggling with hyponatremia and hypochloremia. She is following with [facility], Dr. Hickey. She presents today in the company of her son. Prior to her fall in May after leaving the chiropractor's office where she sustained a subarachnoid hemorrhage and cervical fracture she was actually quite ambulatory, and now she struggles to walk from her building to her car, though she is able to do so without any symptoms of exertional chest pressure or shortness of breath. She has been struggling with some lower extremity edema after fluid resuscitation with pancreatitis 2 weeks ago. She denies any orthopnea. She lives independently, and is able to do her activities of daily living. She denies any palpitations near syncope or syncope with exertion Objective Review of Systems: All systems were reviewed and are noted to be negative unless otherwise stated in HPI. 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 Watters SINUS SURGERY 12/30/2019 balloon sinuplasty - Dr. Key SKIN BIOPSY TONSILLECTOMY TRIGGER FINGER RELEASE Right 03/24/2018 RELEASE A1 TOD LEFT MIDDLE,RING, AND SMALL FINGERS WITH CORTISONE INJECTION RIGHT MIDDLE FINGER (more content not included)... [facility] 10-31-2024 Instructions Zoraida Zapata RN - 10/31/2024 1:58 PM EDT How to Contact your Care Team: Provider: Dr. Zhao Rincon MD Clinic Nurse: CHENCHO [facility] MA: ANDRY Callaway REFILLS: When in need for refills please call your care team or the office at [phone]. Please include medication name, pharmacy name, and specify 30-day or 90-day supply. Please check with your pharmacy within 24 hours of request for your refill. You must follow up as directed to continue current refills. Thank you! ECHOCARDIOGRAM: Procedure will take approximately 40-45 minutes to complete. You will be required to lie flat and may be asked to do several things, such as hold very still, breathe in and out very slowly, hold your breath, or lie on your left side. No fasting is required for this procedure. No medication needs to be held. An IV might be started to use Definity, a visualizing aid injected into bloodstream to help improve visualization of the test. documented in this encounter [facility] 10-31-2024 Note Behavioral Health Ou tpatient Progress Note Patient Name: Elizabeth Cisneros MR #: [id number] : 1950 Chief Complaint: Medication and symptom review/management Interval History: 10/31/2024 Patient presents for follow up exam. I discussed risks, benefits and alternatives of a telephone visit telemedicine consultation with the patient (and any accompanying persons) including the risks that the patient's personal health details and medical records will be discussed over real-time, synchronous, interactive audio technology, the visit will not be recorded without the express consent of both the provider and the patient, and that there are inherent diagnostic limitations compared to [id number] evaluations. We elected to proceed with the telephone visit telemedicine consultation. Patient is engaged and cooperative during conversation. States she is tolerating the medication well. Symptoms are stable and have not worsened. She was recently admitted with pneumonia. Doing better since discharge. She will have upcoming cervical laminectomy with fusion surgery sometime in November. Denies any recent mood changes or fluctuations. Denies any new or ongoing complaints/concerns. Denies any side effects of the medication. Denies any Suicidal Ideation or Homicidal Ideation Current stressors: recent admission and upcoming surgery Previous Visit: 07/13/2024 Patient presents for follow up exam. I discussed risks, benefits and alternatives of a telephone visit telemedicine consultation with the patient (and any accompanying persons) including the risks that the patient's personal health details and medical records will be discussed over real-time, synchronous, interactive audio technology, the visit will not be recorded without the express consent of both the provider and the patient, and that there are inherent diagnostic limitations compared to [id number] evaluations. We elected to proceed with the telephone visit telemedicine consultation. Patient is engaged and cooperative during conversation. States she is tolerating the medication increases well (mirtazapine and Pristiq). She feels her thought process and comphrension is much improved. Symptoms are stable and have not worsened. Denies any recent mood changes or fluctuations. Denies any new or ongoing complaints/concerns. Denies any side effects of the medication. Denies any Suicidal Ideation or Homicidal Ideation Current Medications: Medications Prior to Visit[1] Psychiatric ROS: Negative unless noted above. Review of Systems: Constitutional: Denies fever, chills, diaphoresis, malaise Eyes: Denies blurred vision, double vision ENT: Denies nasal congestion, sore throat Neurological: Denies headache, photophobia, weakness, numbness CVS: Denies chest pain or palpitations Respiratory: Denies dyspnea or cough Musculoskeletal: Denies joint pain or muscle aches GI: Denies nausea, vomiting, constipation, or diarrhea Integumentary: Denies itching or rash Endocrine: Denies heat/cold intolerance or weight loss/weight gain Mental Status Evaluation: General Appearance & Behavior: age appropriate, pleasant, cooperative, good eye contact Grooming & Hygiene: street clothes Psychomotor Activity: no psychomotor abnormalities or muscle atrophy noted Speech: normal rate, rhythym, volume, and spontaneity Flow of Thought: linear and goal directed Thought Associations: Intact Content of Thought: No evidence of suicidal ideations/homicidal ideations/psychosis Mood: Good Affect: euthymic Insight: intact Judgment: intact Orientation: alert and oriented to person, place, time, and circumstances Memory: intact recent and remote Concentration: intact Language: fluent Fund of Knowledge: estimated average intelligence Assessment and Plan/Recommendations Diagnoses/Treatment Plan: Diagnoses and all orders for this visit: Anxiety - desvenlafaxine succinate (PRISTIQ) 100 MG 24 hr tablet; Take 1 (one) tablet (100 mg total) by mouth daily . Moderate major depression (HCC) - desvenlafaxine succinate (PRISTIQ) 100 MG 24 hr tablet; Take 1 (one) tablet (100 mg total) by mouth daily . - mirtazapine (REMERON) 45 MG tablet; Take 1 (one) tablet (45 mg total) by mouth nightly . Pharmacological management: Alternative medication plans were discussed with the patient/guardian. All side effects or potential adverse effects were discussed with the patient/guardian. Parent/guardian consented to medication initiation or continuation of the following: Education: Continue medication as prescribed. Please report any side effects or intolerability of the medication. Report any new or worsening symptoms 11/03/2023 12:00 PM 01/27/2024 3:00 PM TADEO-7 TADEO-7 Score 14 7 11/03/2023 12:00 PM 01/27/2024 3:00 PM PHQ-9 PHQ-9 Total Score 19 10 Follow up in: 12 weeks or sooner if needed MyChart MyChart is a great way to comm (more content not included)... [facility] 10-31-2024 History of Present illness Narrative Images from the original note were not included. Behavioral Health Outpatient Progress Note Patient Name: Elizabeth Cisneros MR #: [id number] : 1950 Chief Complaint: Medication and symptom review/management Interval History: 10/31/2024 Patient presents for follow up exam. I discussed risks, benefits and alternatives of a telephone visit telemedicine consultation with the patient (and any accompanying persons) including the risks that the patient's personal health details and medical records will be discussed over real-time, synchronous, interactive audio technology, the visit will not be recorded without the express consent of both the provider and the patient, and that there are inherent diagnostic limitations compared to [id number] evaluations. We elected to proceed with the telephone visit telemedicine consultation. Patient is engaged and cooperative during conversation. States she is tolerating the medication well. Symptoms are stable and have not worsened. She was recently admitted with pneumonia. Doing better since discharge. She will have upcoming cervical laminectomy with fusion surgery sometime in November. Denies any recent mood changes or fluctuations. Denies any new or ongoing complaints/concerns. Denies any side effects of the medication. Denies any Suicidal Ideation or Homicidal Ideation Current stressors: recent admission and upcoming surgery Previous Visit: 07/13/2024 Patient presents for follow up exam. I discussed risks, benefits and alternatives of a telephone visit telemedicine consultation with the patient (and any accompanying persons) including the risks that the patient's personal health details and medical records will be discussed over real-time, synchronous, interactive audio technology, the visit will not be recorded without the express consent of both the provider and the patient, and that there are inherent diagnostic limitations compared to [id number] evaluations. We elected to proceed with the telephone visit telemedicine consultation. Patient is engaged and cooperative during conversation. States she is tolerating the medication increases well (mirtazapine and Pristiq). She feels her thought process and comphrension is much improved. Symptoms are stable and have not worsened. Denies any recent mood changes or fluctuations. Denies any new or ongoing complaints/concerns. Denies any side effects of the medication. Denies any Suicidal Ideation or Homicidal Ideation Current Medications: Medications Prior to Visit[1] Psychiatric ROS: Negative unless noted above. Review of Systems: Constitutional: Denies fever, chills, diaphoresis, malaise Eyes: Denies blurred vision, double vision ENT: Denies nasal congestion, sore throat Neurological: Denies headache, photophobia, weakness, numbness CVS: Denies chest pain or palpitations Respiratory: Denies dyspnea or cough Musculoskeletal: Denies joint pain or muscle aches GI: Denies nausea, vomiting, constipation, or diarrhea Integumentary: Denies itching or rash Endocrine: Denies heat/cold intolerance or weight loss/weight gain Mental Status Evaluation: General Appearance & Behavior: age appropriate, pleasant, cooperative, good eye contact Grooming & Hygiene: street clothes Psychomotor Activity: no psychomotor abnormalities or muscle atrophy noted Speech: normal rate, rhythym, volume, and spontaneity Flow of Thought: linear and goal directed Thought Associations: Intact Content of Thought: No evidence of suicidal ideations/homicidal ideations/psychosis Mood: Good Affect: euthymic Insight: intact Judgment: intact Orientation: alert and oriented to person, place, time, and circumstances Memory: intact recent and remote Concentration: intact Language: fluent Fund of Knowledge: estimated average intelligence Assessment and Plan/Recommendations Diagnoses/Treatment Plan: Diagnoses and all orders for this visit: Anxiety - desvenlafaxine succinate (PRISTIQ) 100 MG 24 hr tablet; Take 1 (one) tablet (100 mg total) by mouth daily . Moderate major depression (HCC) - desvenlafaxine succinate (PRISTIQ) 100 MG 24 hr tablet; Take 1 (one) tablet (100 mg total) by mouth daily . - mirtazapine (REMERON) 45 MG tablet; Take 1 (one) tablet (45 mg total) by mouth nightly . Pharmacological management: Alternative medication plans were discussed with the patient/guardian. All side effects or potential adverse effects were discussed with the patient/guardian. Parent/guardian consented to medication initiation or continuation of the following: Education: Continue medication as prescribed. Please report any side effects or intolerability of the medication. Report any new or worsening symptoms 11/03/2023 12:00 PM 01/27/2024 3:00 PM TADEO-7 TADEO-7 Score 14 7 11/03/2023 12:00 PM 01/27/2024 3:00 PM PHQ-9 PHQ-9 Total Score 19 10 Follow up in: 12 weeks or sooner if needed [employer] is a great way to communicate with your provider, on non urgent concerns. Please consider sending your provider a [employer] message with your non-urgent questions. Please do not use [employer] to send any messages requiring urgent or emergent attention. By selecting to send a message, you acknowledge you are seeking medical advice for non-urgent issues and that you are aware that you may not get a response for 2 business days. Responses are not monitored evenings and weekends. For issues requiring urgent or emergent attention, please call our office at to speak to the provider on-call or call [phone]. Treatment options and alternatives reviewed with patient. Risks, benefits, side effects of all psychiatric medications discussed with patient and informed consent obtained. All questions were answered. Miriam Cerna CNP 10/31/2024 10:03 AM [1] Outpatient Medications Prior to Visit Medication Sig Dispense Refill acetaminophen (TYLENOL) 500 MG tablet Take 1 (one) tablet (500 mg total) by mouth every 6 (six) hours as needed for pain THREE TIMES DAILY . albuterol (PROVENTIL) 2.5 mg /3 mL (0.083 %) nebulizer solution Take 3 mL (2.5 mg total) by nebulization every 6 (six) hours as needed for wheezing . 360 mL 12 albuterol (PROVENTIL) 2.5 mg /3 mL (0.083 %) nebulizer solution Take 3 mL (2.5 mg total) by nebulization every 6 (six) hours as needed for wheezing . 75 mL 0 albuterol 90 mcg/actuation inhaler Inhale 1 (one) puff to 2 (two) puffs every 4 to 6 hours as needed . amoxicillin-clavulanate (AUGMENTIN) 875-125 mg per tablet Take 1 (one) tablet by mouth every 12 (twelve) hours for 4 days . 8 tablet 0 atenoloL (TENORMIN) 50 MG tablet Take 1 (one) tablet (50 mg total) by mouth 2 (two) times a day . 120 tablet 0 [place] Saline Gel Apply topically 2 (two) times a day Apply a pea sized amount to both nostrils at bedtime and in a.m. You can use it more often.. 14.1 g 12 azithromycin (ZITHROMAX) 250 MG tablet Take 1 (one) tablet (250 mg total) by mouth daily for 4 days . 4 tablet 0 Bevespi Aerosphere 9-4.8 mcg HFAA Inhale 2 puffs 2 (two) times a day . 10.7 g 11 budesonide (PULMICORT) 0.5 mg/2 mL nebulizer solution Take 2 mL (0.5 mg total) by nebulization 2 (two) times a day . 60 mL 11 CALCITRATE 200 mg (950 mg) tablet Take 200 mg by mouth 3 (three) times a day . 0 diclofenac sodium 1% (VOLTAREN) 1 % Gel Apply topically 4 (four) times a day as needed for pain . 450 g 2 ferrous sulfate 325 (65 FE) MG tablet Take 1 (one) tablet (325 mg total) by mouth daily with breakfast Start: 10/28/24. 30 tablet 0 fexofenadine (LASHA) 180 MG tablet Take 1 (one) tablet (180 mg total) by mouth daily . Fish OiL 1,200 (144-216) mg cap Take 1 capsule by mouth 3 (three) times a day . fluticasone propionate (FLONASE) 50 mcg/actuation nasal spray Instill 2 (two) sprays into each nostril 2 (two) times a day . 18.2 mL 3 folic acid (FOLVITE) 1 MG tablet Take 1 (one) tablet (1 mg total) by mouth daily . furosemide (LASIX) 20 MG tablet Take 1 (one) tablet (20 mg total) by mouth daily as needed (for lower extremity edema) . 30 tablet 0 guaiFENesin (MUCINEX) 600 mg 12 hr tablet Take 2 (two) tablets (1,200 mg total) by mouth 2 (two) times a day . ketoconazole (NIZORAL) 2 % cream Apply topically daily to feet . ketorolac (TORADOL) 10 mg tablet Take 1 (one) tablet (10 mg total) by mouth every 6 (six) hours as needed . 12 tablet 0 lansoprazole (PREVACID) 30 MG capsule Take 1 capsule by mouth every morning before breakfast on an empty stomach. . 90 capsule 3 levothyroxine (SYNTHROID, LEVOTHROID) 75 MCG tablet Take 1 (one) tablet (75 mcg total) by mouth every morning DOS . 90 tablet 1 magnesium glycinate 100 mg Tab Take 2.5 (two and a half) tablets (250 mg total) by mouth 2 (two) times a day . magnesium oxide (MAG-OX) 400 mg tablet Take 2.5 (two and a half) tablets (1,000 mg total) by mouth nightly . metaxalone (SKELAXIN) 800 MG tablet Take 1 (one) tablet (800 mg total) by mouth 3 (three) times a day as needed for muscle spasms . 90 tablet 1 metroNIDAZOLE (METROGEL) 1 % gel Apply once daily to entire face montelukast (SINGULAIR) 10 mg tablet Take 1 (one) tablet (10 mg total) by mouth nightly . 30 tablet 11 mupirocin (BACTROBAN) 2 % ointment Apply topically 2 (two) times a day . 22 g 0 Nucala 100 mg/mL AtIn Inject 1 mL (100 mg total) under the skin every 28 days . 3 mL 11 oxyCODONE-acetaminophen (PERCOCET) 5-325 mg per tablet Take 1 (one) tablet by mouth daily as needed for pain . 30 tablet 0 Prolia 60 mg/mL Syrg Inject 60 (sixty) mg under the skin once for 1 dose. sodium chloride 1,000 mg TbSO Take 1 (one) tablet (1,000 mg total) by mouth 2 (two) times a day with meals . 60 tablet 0 Therems-M 9 mg iron-400 mcg Tab Take 1 (one) tablet by mouth daily . ubrogepant (Ubrelvy) 100 mg Tab Take 1 (one) tablet (100 mg total) by mouth at bedtime as needed (migraines) . 10 tablet 3 VITAMIN D3 2,000 unit cap Take 1 (one) capsule by mouth 2 (two) times a day . 0 zinc gluconate 50 mg tablet Take 1 (one) tablet (50 mg total) by mouth daily . desvenlafaxine succinate (PRISTIQ) 100 MG 24 hr tablet Take 1 (one) tablet (100 mg total) by mouth daily . 30 tablet 2 mirtazapine (REMERON) 45 MG tablet Take 1 (one) tablet (45 mg total) by mouth nightly . 30 tablet 2 No facility-administered medications prior to visit. documented in this encounter [facility] 10[facility]27[facility]2024 [facility] History of Present illness Narrative NEPHROLOGY PROGRESS [facility] Patient Name: Elizabeth Cisneros Admit Date: [id number] MR #: [id number] : 1950 Perpetual Assessment: Elizabeth Cisneros is a 74 y.o. female on hospital day 2 admitted for pancreatitis We are asked to evaluate and manage hyponatremia. Impression and Plan: Acute on chronic hyponatremia: Acute component could be due to poor solute intake. Chronic component could be due to Pristiq -Baseline sodium in the low 130s. Presented with a sodium of 125, improved to 130 with IV fluids and then dropped to 128. Subsequently IV fluids discontinued and started on sodium chloride 1 g 3 times daily and fluid restriction 1.5 L. Sodium now 133. -Discussed with the patient that we will continue sodium chloride but at 1 g twice daily and fluid restriction of 1.5 L/day in the outpatient setting. She will need to follow-up with the prescriber of Pristiq for ongoing follow-up of sodium levels and consideration to discontinue Pristiq. She does not need outpatient nephrology follow-up. She reported understanding of this. 2. Hypokalemia due to GI losses and poor solute intake -Agree with replacement -Magnesium level appropriate 3. Pancreatitis -Surgery signed off 10/26 -On regular diet at this time Subjective: No events overnight. Patient being discharged today. Discussed with hospitalist plan and nephrology care Review of Systems: ROS otherwise reviewed and negative Physical Examination: Vitals: Vitals: 10/26/24 2356 10/27/24 0300 10/27/24 0745 10/27/24 1052 BP: (!) 152/79 (!) 171/98 134/88 Pulse: 75 82 71 Resp: 16 16 Temp: 98.8 F (37.1 C) 99 F (37.2 C) 97.9 F (36.6 C) TempSrc: Oral Oral Oral SpO2: 96% 94% 97% Weight: 55.6 kg (122 lb 9.2 oz) Height: 5' 3 Intake/Output last 3 shifts: Intake/Output Summary (Last 24 hours) at 10/27/2024 1306 Last data filed at 10/27/2024 0900 Gross per 24 hour Intake 620.7 ml Output 1202 ml Net -581.3 ml I/O last 3 completed shifts: In: 2758.3 [P.O.:520; I.V.:2138.3; IV Piggyback:100] Out: 702 [Urine:701; Stool:1] General: No acute distress HEENT: Anicteric neuro: No myoclonus, alert and oriented x 3 Skin : No new rashes : No [place] Results/Medications Reviewed 10/27/24 1:06 PM: Laboratory, Microbiology, Pathology, Radiology, Cardiology, Medications and Transcriptions reviewed Scheduled Meds: amoxicillin-clavulanate 1 tablet Oral Q12H BISHOP atenoloL 50 mg Oral BID azithromycin 250 mg Oral Daily budesonide 0.5 mg Nebulization BID cholecalciferol (vitamin D3) 2,000 Units Oral Daily enoxaparin (LOVENOX) injection 40 mg Subcutaneous Daily ferrous sulfate 325 mg Oral Daily with breakfast folic acid 1 mg Oral Daily guaiFENesin 1,200 mg Oral BID levothyroxine 75 mcg Oral QAM magnesium oxide 400 mg Oral Nightly mirtazapine 45 mg Oral Nightly montelukast 10 mg Oral Nightly pantoprazole 40 mg Intravenous Daily sodium chloride (PF) 5 mL Intravenous Q8H BISHOP sodium chloride 1 g Oral TID Continuous Infusions: Results from last 7 days Lab Units 10/25/24 0339 10/24/24 1703 10/24/24 1701 WBC K/mcL 10.16 15.03* -- HGB g/dL 12.5 14.5 14.6 HCT % 36.6 42.1 41.3 PLT K/mcL 277 342 320 Results from last 7 days Lab Units 10/27/24 0355 10/26/24 0757 10/26/24 0355 10/25/24 1220 10/25/24 0805 10/25/24 0338 SODIUM mmol/L 133* 128* 129* < > 129* 127* POTASSIUM mmol/L 3.4* -- 3.5 -- -- 3.1* CHLORIDE mmol/L 100 -- 97* -- -- 91* BICARB mmol/L 22 -- 22 -- -- 23 BUN mg/dL -- -- -- 28* CREATININE mg/dL 0.72 -- 0.60 -- -- 1.02 EGFR mL/min/1.73 m2 87 -- 93 -- -- 57* GLUCOSE mg/dL 140* -- 130* -- -- 96 CALCIUM mg/dL 8.3* -- 7.9* -- -- 8.1* MAGNESIUM mg/dL -- -- -- -- 1.7 1.8 PHOSPHORUS mg/dL -- -- -- -- 2.5* 2.8 < > = values in this interval not displayed. Urinalysis Results from last 7 days Lab Units 10/25/24 1122 COLOR, UR Yellow CLARITY, UR Clear SPEC GRAV 1.046* PH, UR 5.5 GLUCOSE, UR mg/dL Negative KETONES, UR mg/dL Trace* BILIRUBIN, UR Negative UROBILINOGEN, UR mg/dL <2.0 BLOOD, UR Negative NITRITE, UR Negative LEUK MARY, UR Negative WBC, UR /hpf 2 BACTERIA, UR /hpf Rare* Potential limitations of the note: Parts of this note were created by dictation via voice recognition software ([employer]). The completed note was reviewed for accuracy. However, there may be subtle errors that were not found during the review. If such errors are discovered, or if there are any questions or concerns regarding the recommendations/plan of care, please contact the author of the note prior to undertaking the recommendations/plan of care. [facility] [place] Assessment and Plan Elizabeth Cisneros is a 74 y.o. female patient of Sj Motley MD with history of diabetes, anxiety, depression, history of COPD, coronary artery disease, GERD, dyslipidemia, hypertension, hypothyroidism, osteoporosis of presented to [facility] on 10/24/2024 as a direct admit from [facility] emergency department for acute abdominal pain, nausea vomiting and diarrhea PNA CT Abdomen showing tree in bud opacities in the lung bases suggestive of atypical infection or inflammatory small airway disease and bronchiolitis Change levo to oral augmentin and azithro Continue home Mucinex Sputum culture Acute pancreatitis Concern for gallstone Right upper quadrant abdominal pain Leukocytosis-resolved CT A/P with peripancreatic stranding suggesting acute pancreatitis as well as gallbladder distention. There is also a small amount of stranding superimposed between the head of the pancreas and the duodenum concerning for duodenitis. Right upper quadrant ultrasound unremarkable Diet advanced to full liquid Discontinue fluids Trauma following, ok to advance diet, no surgical intervention at this time, signed off Lipase 457 Acute on chronic hyponatremia Sodium on arrival 125, currently 128 S/p hydration TSH 1.43 Serum osmolality 275 and urine osmolality 537, urine sodium 71 Continue to hold Pristiq Nephrology evaluated, started sodium chloride 1 g TID, 1.5 L fluid restriction and signed off, dicsussed with nephrology Acute hypokalemia-resolved Replaced with potassium chloride New compression fracture involving T12 and L1 and superior endplate fracture of L4 Probably related to osteoporosis no history of falls CT Abdomen/Pelvis showing new compression fractures Vitamin D3 level 73 Consult PT OT social media developer for discharge planning Iron deficiency anemia Continue folic acid Started on Iron supplementation HTN Continue home Atenolol COPD Continue home Pulmicort, Albuterol nebulizer as needed Continue Mucinex, Singulair Restless leg Continue Remeron GERD Continue PPI Resolved acute medical issues Discharge Planning Medically Stable for Discharge Date: 10/27/24-10/28/24 Patient requires continued hospitalization due to: patient preference Discharge Location: Home Quality Measures DVT Prophylaxis: lovenox Pay[place] Catheter: absent Subjective Patient reports that she can not go home with BP of 170, reports that its need to stablize before dc and that if she was started on IV abx , that they prob needed iv, discussed and patient is agreeable to orals. Objective BP 134/88 Pulse 71 Temp 97.9 F (36.6 C) (Oral) Resp 16 Ht 5' 3 Wt 55.6 kg (122 lb 9.2 oz) SpO2 97% BMI 21.71 kg/m Physical Examination General Appearance: alert; well appearing; in no acute distress HEENT: Head- normocephalic; Eyes- EOMI, sclera anicteric; Throat- mucous membranes moist Cardiovascular: regular rate and rhythm; normal S1, S2; no murmurs, rubs, clicks or gallops; peripheral edema absent Respiratory: wheeze on expiration, on room air Abdomen: soft, non-tender, non-distended Neurological: oriented x 3; normal speech; no focal findings or movement disorder noted Musculoskeletal: no significant deformity or tenderness to palpation Skin: normal coloration Psych: normal mood and affect Care Management Progress Note Date: 10/27/2024 Time: 1:53 PM Patient Name: Elizabeth Cisneros Date of : 1950 Discharge Plan: D/C Disposition: Home Health Care Services Final D/C Agency/Destination: [facility] Regulatory Documentation: Medicare Regulatory Documentation Status: Certified Plan A: Home Health Care Services Plan A : Post Acute Patient Choice 1: [facility] Patient Paper Copy: Patient received paper copy Discharging Transportation Plan: Discharge Plan Status: pend medical readiness Assessment and Background Information: Pt updated on [facility] accepted. Pt voices no further questions/concerns/needs for discharge. Addendum [id number] Plan is now for discharge and [facility] liaisons updated. Spiritual Care Progress Note Completed by: Luz Marina Berg Person(s) Present During this Visit: Healthcare Provider Time Spent in Direct Patient Care: 5 Narrative: This pilot supervisor attended daily medical rounds. Received updates from medical staff. Pastoral Care team will remain available to support patient and family PRN. 10/27/24 1033 Visit Background Visit With Healthcare Provider Visit By Staff Licensing Engineer Visit Progression Other (Please Specify) (Did not participate; clinical rounds) Visit Requested By Licensing Engineer Initiated Visit Source Licensing Engineer Initiated Visit Type IDT Rounds Visit Circumstances and Events Routine Visit Visit Length (minutes) 5 Patient's Response to Pastoral Care Other (see comment) (Did not participate; clinical rounds) Visit Planning PRN Spiritual Assessment Not assessed during visit Baptism Assessment Not assessed during this visit Family assessment provided? Not assessed during this visit Signature: Luz Marina Berg MDiv Staff Licensing Engineer [facility] On-Call Licensing Engineer /Vocera On-Call Licensing Engineer She/Her/Hers Spiritual Care Progress Note Completed by: Luz Marina Berg Person(s) Present During this Visit: Patient Time Spent in Direct Patient Care: 15 Narrative: This pilot supervisor visited the pt., Elizabeth, while rounding. Introduced self and role. She did not express any emotional/spiritual needs at this time but asked this pilot supervisor to remember her in prayer. This pilot supervisor provided information about Pastoral Care services and how to contact a pilot supervisor. Pastoral Care team will remain available to support patient and family PRN. 10/27/24 0939 Visit Background Visit With Patient Visit By Staff Licensing Engineer Visit Progression Introduction Visit Requested By Licensing Engineer Initiated Visit Source Licensing Engineer Initiated Visit Type Inpatient;Rounding Visit Circumstances and Events Routine Visit Visit Length (minutes) 15 Patient's Response to Pastoral Care Appeared to be well-engaged;Expressed Gratitude for Visit Visit Planning PRN;Pt aware to contact Licensing Engineer as needed Spiritual Assessment Not assessed during visit Baptism Assessment Not assessed during this visit Family assessment provided? Not assessed during this visit Signature: Luz Marina Berg MDiv Staff Licensing Engineer [facility] On-Call Licensing Engineer /[employer] On-Call Licensing Engineer She/Her/Hers [facility] [place]GR[place] Assessment and Plan Elizabeth Cisneros is a 74 y.o. female patient of Sj Motley MD with history of diabetes, anxiety, depression, history of COPD, coronary artery disease, GERD, dyslipidemia, hypertension, hypothyroidism, osteoporosis of presented to [facility] on 10/24/2024 as a direct admit from [facility] emergency department for acute abdominal pain, nausea vomiting and diarrhea Acute pancreatitis Concern for gallstone Right upper quadrant abdominal pain Leukocytosis-resolved CT A/P with peripancreatic stranding suggesting acute pancreatitis as well as gallbladder distention. There is also a small amount of stranding superimposed between the head of the pancreas and the duodenum concerning for duodenitis. Right upper quadrant ultrasound unremarkable Diet advanced to full liquid Discontinue fluids Trauma following, ok to advance diet, no surgical intervention at this time, signed off WBC 15.03->10.16 Lipase 457 Acute on chronic hyponatremia Sodium on arrival 125, currently 128 S/p hydration TSH 1.43 Serum osmolality 275 and urine osmolality 537, urine sodium 71 Nephrology evaluated, started sodium chloride 1 g TID, 1.5 L fluid restriction Continue to hold Pristiq PNA CT Abdomen showing tree in bud opacities in the lung bases suggestive of atypical infection or inflammatory small airway disease and bronchiolitis Start Levofloxacin 500 mg IV every 24 hours Continue home Mucinex Sputum culture Acute hypokalemia-resolved Replaced with potassium chloride New compression fracture involving T12 and L1 and superior endplate fracture of L4 Probably related to osteoporosis no history of falls CT Abdomen/Pelvis showing new compression fractures Vitamin D3 level 73 Consult PT OT social media developer for discharge planning Iron deficiency anemia Continue folic acid Started on Iron supplementation HTN Continue home Atenolol COPD Continue home Pulmicort, Albuterol nebulizer as needed Continue Mucinex, Singulair Restless leg Continue Remeron GERD Continue PPI Resolved acute medical issues Discharge Planning Medically Stable for Discharge Date: 10/27/24-10/28/24 Patient requires continued hospitalization due to: IV ATB, advance diet, PT/OT eval Discharge Location: Home Quality Measures DVT Prophylaxis: lovenox Payton Catheter: absent Subjective Patient reports mild abdominal discomfort. She does state she has some shortness of breath and a productive cough. Objective BP (!) 177/72 Pulse 85 Temp 98.2 F (36.8 C) (Oral) Resp 16 Wt 55.6 kg (122 lb 9.6 oz) SpO2 94% BMI 21.72 kg/m Physical Examination General Appearance: alert; well appearing; in no acute distress HEENT: Head- normocephalic; Eyes- EOMI, sclera anicteric; Throat- mucous membranes moist Cardiovascular: regular rate and rhythm; normal S1, S2; no murmurs, rubs, clicks or gallops; peripheral edema absent Respiratory: wheeze on expiration, on room air Abdomen: soft, non-tender, non-distended Neurological: oriented x 3; normal speech; no focal findings or movement disorder noted Musculoskeletal: no significant deformity or tenderness to palpation Skin: normal coloration Psych: normal mood and affect NEPHROLOGY PROGRESS [facility] Patient Name: Elizabeth Cisneros Admit Date: [id number] MR #: [id number] : 1950 Perpetual Assessment: Elizabeth Cisneros is a 74 y.o. female on hospital day 1 admitted for pancreatitis We are asked to evaluate and manage hyponatremia. Impression and Plan: Acute on chronic hyponatremia: Acute component could be due to poor solute intake. Chronic component could be due to Pristiq Baseline sodium in the low 130s. Presented with a sodium of 125, improved to 130 with IV fluids and now down to 128. -We will discontinue IV fluids. Urine sodium pending. Will start sodium chloride 1 g 3 times daily. In addition we will start regular diet with fluid restriction. If patient does not tolerate regular diet please change back to clear liquid diet with fluid restriction of 1.5 L/day. -Urine sodium pending. Urine osmolality elevated. - 2. Hypokalemia due to GI losses and poor solute intake -Agree with replacement -Magnesium level appropriate 3. Pancreatitis -Surgery signed off 10/26 -Lipase down to 457 as of yesterday. No labs today Subjective: Patient reports she had loose stool and migraine yesterday. Reports she was drinking quite a bit of fluid at a time and this caused epigastric pain so she decreased famount of fluid intake and was able to tolerate tea Review of Systems: ROS otherwise reviewed and negative Physical Examination: Vitals: Vitals: 10/25/24 2203 10/26/24 0004 10/26/24 0841 10/26/24 0845 BP: (!) 135/45 135/83 (!) 188/93 (!) 177/72 Pulse: 75 75 83 85 Resp: 14 16 16 Temp: 98.7 F (37.1 C) 98 F (36.7 C) 98.2 F (36.8 C) TempSrc: Oral Oral Oral SpO2: 94% 94% 94% Weight: Intake/Output last 3 shifts: Intake/Output Summary (Last 24 hours) at 10/26/2024 0859 Last data filed at 10/26/2024 0836 Gross per 24 hour Intake 2737.6 ml Output 1100 ml Net 1637.6 ml I/O last 3 completed shifts: In: 2506.4 [P.O.:600; I.V.:1906.4] Out: 700 [Urine:700] General: No acute distress HEENT: Anicteric Neck: Supple CV: Regular rate, no murmurs or rubs. No lower extremity edema Lungs: CTA B Abd: Soft, mild epigastric tenderness neuro: No myoclonus, alert and oriented x 3 Skin : No new rashes : No Payton Results/Medications Reviewed 10/26/24 8:59 AM: Laboratory, Microbiology, Pathology, Radiology, Cardiology, Medications and Transcriptions reviewed Scheduled Meds: enoxaparin (LOVENOX) injection 40 mg Subcutaneous Daily pantoprazole 40 mg Intravenous Daily sodium chloride (PF) 5 mL Intravenous Q8H BISHOP sodium chloride 1 g Oral TID Continuous Infusions: Results from last 7 days Lab Units 10/25/24 0339 10/24/24 1703 10/24/24 1701 WBC K/mcL 10.16 15.03* -- HGB g/dL 12.5 14.5 14.6 HCT % 36.6 42.1 41.3 PLT K/mcL 277 342 320 Results from last 7 days Lab Units 10/26/24 0757 10/26/24 0355 10/25/24 1220 10/25/24 0805 10/25/24 0338 10/24/24 2325 SODIUM mmol/L 128* 129* 130* 129* 127* 125* POTASSIUM mmol/L -- 3.5 -- -- 3.1* 3.4* CHLORIDE mmol/L -- 97* -- -- 91* 87* BICARB mmol/L -- 22 -- -- 23 22 BUN mg/dL -- 13 -- -- 28* 30* CREATININE mg/dL -- 0.60 -- -- 1.02 1.20 EGFR mL/min/1.73 m2 -- 93 -- -- 57* 47* GLUCOSE mg/dL -- 130* -- -- 96 83 CALCIUM mg/dL -- 7.9* -- -- 8.1* 8.7 MAGNESIUM mg/dL -- -- -- 1.7 1.8 -- PHOSPHORUS mg/dL -- -- -- 2.5* 2.8 -- Urinalysis Results from last 7 days Lab Units 10/25/24 1122 COLOR, UR Yellow CLARITY, UR Clear SPEC GRAV 1.046* PH, UR 5.5 GLUCOSE, UR mg/dL Negative KETONES, UR mg/dL Trace* BILIRUBIN, UR Negative UROBILINOGEN, UR mg/dL <2.0 BLOOD, UR Negative NITRITE, UR Negative LEUK MARY, UR Negative WBC, UR /hpf 2 BACTERIA, UR /hpf Rare* Potential limitations of the note: Parts of this note were created by dictation via voice recognition software ([employer]). The completed note was reviewed for accuracy. However, there may be subtle errors that were not found during the review. If such errors are discovered, or if there are any questions or concerns regarding the recommendations/plan of care, please contact the author of the note prior to undertaking the recommendations/plan of care. The patient denies any abdominal pain at rest this morning. She is tolerating some clear liquids, but others create a little discomfort. Vital signs stable, afebrile Lab still pending Belly soft, nondistended, and minimally tender in the right upper quadrant to deep palpation I have no other recommendations from a general surgical standpoint Continue to manage pancreatitis per hospitalist We will sign off but are available if needed. Nutrition Care Initial Assessment Reason for visit: Nursing Referral: unintentional weight loss of more than 13 lbs in the last 6 months and the patient has experienced a decreased appetite over the last month Nutrition Diagnosis: Inadequate Energy Intake related to inability to consume sufficient energy as evidenced by has lost 25#, 17% past 6 months. Nutrition Intervention Initiate meals Refuses all supplements Nutrition Prescription: Diet:Continue Clear Liquids Advance po diet as medically able Nutrition Goals: Tolerate diet with PO intakes >75% most meals Start Date:10/25/2024 Expected End Date:10/29/2024 Nutrition Education: No needs at this time Assessment: Pertinent clinical information: pancreatitis, nausea,dehydration, compression fractures Past Medical History: Diagnosis Date Anemia 03/2016 Anxiety Arrhythmia Arthritis Asthma ASVD (arteriosclerotic vascular disease) Bruises easily Carpal tunnel syndrome Cataracts, bilateral Cervical cancer (HCC) 06/1991 Clostridium difficile infection 1999 COPD (chronic obstructive pulmonary disease) (HCC) Coronary artery disease Depression Diabetes mellitus (HCC) 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 Watters SINUS SURGERY 12/30/2019 balloon sinuplasty - Dr. Key SKIN BIOPSY TONSILLECTOMY TRIGGER FINGER RELEASE Right 03/24/2018 RELEASE A1 TOD LEFT MIDDLE,RING, AND SMALL FINGERS WITH CORTISONE INJECTION RIGHT MIDDLE FINGER A1 TOD; Surgeon: Yonas Nguyen MD TUBAL LIGATION Height: Current weight: 55.6 kg (122 lb 9.6 oz) BMI Body mass index is 21.72 kg/m . Weight hx: 25# loss Wt Readings from Last 10 Encounters: 10/25/24 55.6 kg (122 lb 9.6 oz) 10/24/24 53.5 kg (118 lb) 10/13/24 58.1 kg (128 lb) 09/30/24 59 kg (130 lb) 07/12/24 62.1 kg (137 lb) 06/15/24 66.7 kg (147 lb) 06/14/24 66.7 kg (147 lb) 05/31/24 68.5 kg (151 lb 0.2 oz) 05/31/24 65.8 kg (145 lb) 04/28/24 66.2 kg (146 lb) Significant Weight Change: Yes, 17% weight loss noted in 6 months* Current diet order: Diet: Clear Liquids Recent intake: poor Current intake does not meet estimated needs. Barriers to adequate p.o. intakes: Poor appetite and Gastrointestinal symptoms Nutrition Related Allergies/Intolerances: No Nutrition Related Allergies noted Cultural or Baptism Dietary Needs :No Cultural or Baptism Dietary needs noted Patient/family comments: admits to poor appetite and weight loss, eating very little lately Difficulty Chewing or Swallowing: No Skin Integrity: No skin integrity issues noted GI Function: LBM: 10/23/24 Fluid Status: WNL Physical Appearance: Thin appearance Labs: Recent Labs 10/25/24 0338 10/25/24 0805 NA 127* 129* K 3.1* -- BICARB 23 -- CL 91* -- GLUCOSE 96 -- BUN 28* -- CREATININE 1.02 -- MG 1.8 1.7 PHOS 2.8 2.5* ALBUMIN -- 3.3 LIPASE -- 457* Recent Labs 10/24/24 2325 10/25/24 0338 GLUCOSE 83 96 Lab Results Component Value Date HGBA1C 6.0 (H) 10/25/2024 Home Medications Reviewed: Yes Scheduled Meds: enoxaparin (LOVENOX) injection 40 mg Subcutaneous Daily pantoprazole 40 mg Intravenous Daily potassium chloride 20 mEq Intravenous Q2H potassium chloride SA 40 mEq Oral Once sodium chloride (PF) 5 mL Intravenous Q8H BISHOP Continuous Infusions: dextrose 5 % and sodium chloride 0.9 % 75 mL/hr (10/25/24 0014) Nutrient Depleting Medications: Loop Diuretics and Proton Pump Inhibitors (Chronic Use) Estimated Energy Needs Total Energy Estimated Needs: 1400 kcal Method for Estimating Needs: @ 26 kcal/kg Total Protein Estimated Needs: 55 gm Method for Estimating Needs: @ 1 gm/kg [address] Office [phone] [facility] DAILY PROGRESS NOTE ASSESSMENT & PLAN/ACTIVE MEDICAL PROBLEMS: Pancreatitis CT A/P with peripancreatic stranding suggesting acute pancreatitis as well as gallbladder distention. There is also a small amount of stranding superimposed between the head of the pancreas and the duodenum concerning for duodenitis. WBC 10.2, afebrile Tbili normal 0.8, AST/ALT 29/20, lipase 716 RUQ US without cholecystitis Abdominal pain improved, continues to have mild RUQ pain, no nausea or emesis - repeat labs this am - okay to start cld Thoracic and lumbar compression fractures T12, L1 compression fractures as well as superior endplate fracture of L4 Vit d 73 Endorses new lower back pain, last fell May 2024 No paresthesias or focal deficits - consult neurosurgery SURGERIES/PROCEDURES: Date Operation/Procedure Provider Name INCIDENTAL FINDINGS: RESOLVED PROBLEMS: DISPOSITION PLAN - per primary CHIEF COMPLAINT/ HPI / PFSHx / EVENTS OVER LAST 24HRS: No acute events overnight. Patient reports overall improvement to abdominal pain. No emesis since yesterday REVIEW OF SYSTEMS: Other than the above items the remainder of the complete ROS is otherwise unchanged from admission. PHYSICAL EXAM: Temp: [98 F (36.7 C)-98.3 F (36.8 C)] 98.3 F (36.8 C) Heart Rate: [65-83] 71 Resp: [14-18] 14 BP: (121-138)/(69-79) 131/72 GENERAL: Appears age appropriate. No acute distress. NEUROLOGICAL: Alert and oriented X 3. Follows commands with extremities x4, equal strength. Head Eyes Ear Nose Throat: Head: Atraumatic, normocephalic. Eyes: Conjunctivae/sclerae/corneas clear. Ears: External ear normal. Hearing within normal limits for patient. No drainage. Nose: nares normal Throat: phonation normal Neck: Supple, trachea midline CARDIOVASCULAR: Regular rate and rhythm. No clicks, rubs, murmurs or gallops noted. No peripheral edema noted. 2+ pulses radial/DP/PT bilaterally. RESPIRATORY: Lungs, clear to auscultation bilaterally. No rhonchi, wheezes or crackles. Respiratory effort unlabored without use of accessory muscles. ABDOMINAL: Rounded, soft, tender to palpation RUQ, softly distended, normal bowel sounds. No guarding or peritoneal signs. GENITOURINARY: Normal genitalia for age without lesion or trauma. MUSCULOSKELETAL: Extremities atraumatic without gross deformity x4. No clubbing, cyanosis or joint edema. Lower back midline tenderness SKIN: Skin warm and dry. No rashes or lesions. No intake or output data in the 24 hours ending 10/25/24901 IMAGING [briefly note any results pertinent to today's evaluation]: I reviewed CT and US imaging LABS Lab Results Component Value Date WBC 10.16 10/25/2024 HGB 12.5 10/25/2024 HCT 36.6 10/25/2024 MCV 93.8 10/25/2024 PLT 277 10/25/2024 RBC 3.90 (L) 10/25/2024 Lab Results Component Value Date GLUCOSE 96 10/25/2024 CALCIUM 8.1 (L) 10/25/2024 NA 129 (L) 10/25/2024 K 3.1 (L) 10/25/2024 CL 91 (L) 10/25/2024 BUN 28 (H) 10/25/2024 CREATININE 1.02 10/25/2024 Lab Results Component Value Date ALT 20 10/24/2024 AST 29 10/24/2024 ALKPHOS 100 10/24/2024 BILITOT 0.8 10/24/2024 DAILY CHECKLIST: *Need for Restraints: no *Need for Urinary Catheter: no *Need for Central Access Devices: no *Stress Ulcer Prophylaxis: protonix *VTE Prophylaxis (Body mass index is 21.72 kg/m ., Estimated Creatinine Clearance: 38.8 mL/min (by C-G formula based on SCr of 1.02 mg/dL).): lovenox *Home Medications Reconciled: per primary *Code Status: full Cosigned by Brice Dupont MD at 10/25/2024 12:48 PM EDT Associated attestation - Brice Dupont MD - 10/25/2024 12:48 PM EDT The patient was independently seen and examined. I also personally reviewed her laboratory and radiologic studies. She reports very little if any right upper quadrant pain right now. CT definitely shows pancreatitis. Ultrasound suggests no stones in the gallbladder. Lipase decreased Agree with clear liquid diet Management of pancreatitis per hospitalist She was supposed to have surgery by Dr. Collier 11/23/2024 and was scheduled for cardiac clearance appointment tomorrow. Neurosurgery consult regarding compression fractures documented in this encounter [facility] 10-27-2024 Hospital course Narrative Images from the original note were not included. [facility] [place] -- [facility] Elizabeth Cisneros Admitted: 10/24/2024 Discharge Date: 10/27/24 PCP Handoff Recommended Outpatient Testing Follow up with nephrology and behavioral health Results Pending At Discharge none Clinical Summary Please take 4days of augmentin and azithro antibiotic Please take sodium chloride tabs twice a day Please restrict all LIQUIDS to 1500 ml per day Please follow up with nephrology [facility] of priqstic due to low sodium Assessment and Plan Elizabeth Eddy is a 74 y.o. female patient of Sj Motley MD with history of diabetes, anxiety, depression, history of COPD, coronary artery disease, GERD, dyslipidemia, hypertension, hypothyroidism, osteoporosis of presented to [facility] on 10/24/2024 as a direct admit from [facility] emergency department for acute abdominal pain, nausea vomiting and diarrhea PNA CT Abdomen showing tree in bud opacities in the lung bases suggestive of atypical infection or inflammatory small airway disease and bronchiolitis Change levo to oral augmentin and azithro Acute pancreatitis Concern for gallstone Right upper quadrant abdominal pain Leukocytosis-resolved CT A/P with peripancreatic stranding suggesting acute pancreatitis as well as gallbladder distention. There is also a small amount of stranding superimposed between the head of the pancreas and the duodenum concerning for duodenitis. Right upper quadrant ultrasound unremarkable Diet advanced to full liquid Discontinue fluids Trauma following, ok to advance diet, no surgical intervention at this time, signed off Lipase 457 Acute on chronic hyponatremia Sodium on arrival 125, currently 128 S/p hydration TSH 1.43 Serum osmolality 275 and urine osmolality 537, urine sodium 71 Continue to hold Pristiq Nephrology evaluated, started sodium chloride 1 g BID, 1.5 L fluid restriction and signed off, dicsussed with nephrology Acute hypokalemia-resolved Replaced with potassium chloride New compression fracture involving T12 and L1 and superior endplate fracture of L4 Probably related to osteoporosis no history of falls CT Abdomen/Pelvis showing new compression fractures Vitamin D3 level 73 Iron deficiency anemia Continue folic acid Started on Iron supplementation HTN Continue home Atenolol COPD Continue home Pulmicort, Albuterol nebulizer as needed Continue Mucinex, Singulair Restless leg Continue Remeron GERD Continue PPI Discharge Medications Discharge Medications New Medications Details amoxicillin-clavulanate 875-125 mg per tablet Commonly known as: AUGMENTIN Take 1 (one) tablet by mouth every 12 (twelve) hours for 4 days . Quantity: 8 tablet azithromycin 250 MG tablet Commonly known as: ZITHROMAX Take 1 (one) tablet (250 mg total) by mouth daily for 4 days . Quantity: 4 tablet sodium chloride 1,000 mg Tbso Take 1 (one) tablet (1,000 mg total) by mouth 2 (two) times a day with meals . Quantity: 60 tablet Modified Medications Details furosemide 20 MG tablet Commonly known as: LASIX What changed: when to take this reasons to take this Take 1 (one) tablet (20 mg total) by mouth daily as needed (for lower extremity edema) . Quantity: 30 tablet Medications To Continue Details acetaminophen 500 MG tablet Commonly known as: TYLENOL Take 1 (one) tablet (500 mg total) by mouth every 6 (six) hours as needed for pain THREE TIMES DAILY . * albuterol 90 mcg/actuation inhaler Inhale 1 (one) puff to 2 (two) puffs every 4 to 6 hours as needed . * albuterol 2.5 mg /3 mL (0.083 %) nebulizer solution Commonly known as: PROVENTIL Take 3 mL (2.5 mg total) by nebulization every 6 (six) hours as needed for wheezing . Quantity: 360 mL * albuterol 2.5 mg /3 mL (0.083 %) nebulizer solution Commonly known as: PROVENTIL Take 3 mL (2.5 mg total) by nebulization every 6 (six) hours as needed for wheezing . Quantity: 75 mL atenoloL 50 MG tablet Commonly known as: TENORMIN Take 1 (one) tablet (50 mg total) by mouth 2 (two) times a day . Quantity: 120 tablet [place] Saline Gel Generic drug: sodium chloride-aloe vera Apply topically 2 (two) times a day Apply a pea sized amount to both nostrils at bedtime and in a.m. You can use it more often.. Quantity: 14.1 g Bevespi Aerosphere 9-4.8 mcg Hfaa Generic drug: glycopyrrolate-formoteroL Inhale 2 puffs 2 (two) times a day . Quantity: 10.7 g budesonide 0.5 mg/2 mL nebulizer solution Commonly known as: PULMICORT Take 2 mL (0.5 mg total) by nebulization 2 (two) times a day . Quantity: 60 mL Calcitrate 200 mg (950 mg) tablet Generic drug: calcium citrate Take 200 mg by mouth 3 (three) times a day . desvenlafaxine succinate 100 MG 24 hr tablet Commonly known as: PRISTIQ Take 1 (one) tablet (100 mg total) by mouth daily . Quantity: 30 tablet diclofenac sodium 1% 1 % Gel Commonly known as: VOLTAREN Apply topically 4 (four) times a day as needed for pain . Quantity: 450 g fexofenadine 180 MG tablet Commonly known as: LASHA Take 1 (one) tablet (180 mg total) by mouth daily . Fish OiL 1,200 (144-216) mg Cap Generic drug: omega 9-kuw-rll-fish oil Take 1 capsule by mouth 3 (three) times a day . fluticasone propionate 50 mcg/actuation nasal spray Commonly known as: FLONASE Instill 2 (two) sprays into each nostril 2 (two) times a day . Quantity: 18.2 mL folic acid 1 MG tablet Commonly known as: FOLVITE Take 1 (one) tablet (1 mg total) by mouth daily . guaiFENesin 600 mg 12 hr tablet Commonly known as: MUCINEX Take 2 (two) tablets (1,200 mg total) by mouth 2 (two) times a day . ketoconazole 2 % cream Commonly known as: NIZORAL Apply topically daily to feet . ketorolac 10 mg tablet Commonly known as: TORADOL Take 1 (one) tablet (10 mg total) by mouth every 6 (six) hours as needed . Quantity: 12 tablet lansoprazole 30 MG capsule Commonly known as: PREVACID Take 1 capsule by mouth every morning before breakfast on an empty stomach. . Quantity: 90 capsule levothyroxine 75 MCG tablet Commonly known as: SYNTHROID, LEVOTHROID Take 1 (one) tablet (75 mcg total) by mouth every morning DOS . Quantity: 90 tablet magnesium glycinate 100 mg Tab Take 2.5 (two and a half) tablets (250 mg total) by mouth 2 (two) times a day . magnesium oxide 400 mg (241.3 mg magnesium) tablet Commonly known as: MAG-OX Take 2.5 (two and a half) tablets (1,000 mg total) by mouth nightly . metaxalone 800 MG tablet Commonly known as: SKELAXIN Take 1 (one) tablet (800 mg total) by mouth 3 (three) times a day as needed for muscle spasms . Quantity: 90 tablet metroNIDAZOLE 1 % gel Commonly known as: METROGEL Apply once daily to entire face mirtazapine 45 MG tablet Commonly known as: REMERON Take 1 (one) tablet (45 mg total) by mouth nightly . Quantity: 30 tablet montelukast 10 mg tablet Commonly known as: SINGULAIR Take 1 (one) tablet (10 mg total) by mouth nightly . Quantity: 30 tablet mupirocin 2 % ointment Commonly known as: BACTROBAN Apply topically 2 (two) times a day . Quantity: 22 g Nucala 100 mg/mL Atin Generic drug: mepolizumab Inject 1 mL (100 mg total) under the skin every 28 days . Quantity: 3 mL oxyCODONE-acetaminophen 5-325 mg per tablet Commonly known as: PERCOCET Take 1 (one) tablet by mouth daily as needed for pain . Quantity: 30 tablet Prolia 60 mg/mL Syrg Generic drug: denosumab Inject 60 (sixty) mg under the skin once for 1 dose. Therems-M 9 mg iron-400 mcg Tab Generic drug: piclvmjq-mexc-FN-calcium-mins Take 1 (one) tablet by mouth daily . Ubrelvy 100 mg Tab Generic drug: ubrogepant Take 1 (one) tablet (100 mg total) by mouth at bedtime as needed (migraines) . Quantity: 10 tablet Vitamin D3 50 mcg (2,000 unit) Cap Generic drug: cholecalciferol (vitamin D3) Take 1 (one) capsule by mouth 2 (two) times a day . zinc gluconate 50 mg tablet Take 1 (one) tablet (50 mg total) by mouth daily . * There are duplicate medications prescribed to the patient Stopped Medications doxycycline hyclate 100 MG tablet Commonly known as: VIBRA-TABS Physician(s) Follow Up: OTHER - NOT IN LIST [facility] Address: [place] Servicing Counties: [place], [place], [place], [place], [place], [place] [phone] Halina Hickey MD [address] [facility] [id number] Follow up Enedina Joshi MD [facility] Anne-Marie Cooley [address] [phone] Condition at Discharge: Stable Disposition: Home I reviewed discharge recommendations with the patient in person. Patient instructions, including activity, were given to the patient/family at discharge. On day of discharge I saw Elizabeth Cisneros and spent: > 30 minutes on discharge. Completed by: Mary Gibbs MD on 10/27/24, 12:06 PM documented in this encounter [facility] 10-27-2024 Hospital Discharge instructions Mary Gibbs MD - 10/27/2024 12:05 PM EDT Please adhere to the following instructions, this is what you should do when you leave the hospital. This was written by your discharging physician from the hospital stay Please take 4days of augmentin and azithro antibiotic Please take sodium chloride tabs twice a day Please restrict all LIQUIDS to 1500 ml per day Please follow up with nephrology Please follow up with [facility] regarding ongoing use of priqstic due to low sodium documented in this encounter [facility] 10-27-2024 Note [facility] 10-27-2024 Note Formatting of this n ote might be different from the original. PHYSICAL THERAPY VISIT VARIANCE NOTE Attempted to see patient at this time, but unable secondary to: Awaiting Medical Clearance (Ortho consult pending). Will follow up as appropriate. [facility] 10-27-2024 Miscellaneous Notes PHYSICAL THERAPY VISIT VARIANCE NOTE Attempted to see patient at this time, but unable secondary to: Awaiting Medical Clearance (Ortho consult pending). Will follow up as appropriate. Consult Dr Moya for compression fractures per Dr Valencia request Reviewed chartand agree with plan set forth by Dr Banks. Saw pt in her room but she stayed on the telephone. She was in no distress. Will continue to follow Problem: Falls, Risk of Goal: Absence of falls Outcome: Partially Met Goal: Absence of physical injury Outcome: Partially Met Problem: Pain Goal: Reduced pain sensation Outcome: Partially Met Goal: Control of acute pain to acceptable level Outcome: Partially Met Goal: Able to cope with pain Outcome: Partially Met Goal: Able to achieve maximum level of physical functioning Outcome: Partially Met Goal: Able to achieve maximum level of psychosocial functioning Outcome: Partially Met Problem: Pressure Injury, Risk of Goal: Absence of pressure injury Outcome: Partially Met Problem: Actual or potential alteration in health Goal: Absence of healthcare acquired conditions Outcome: Partially Met Goal: Knowledge of Interdisciplinary Plan of Care Outcome: Partially Met Goal: Knowledge of Enviroment Outcome: Partially Met documented in this encounter [facility] 10-26-2024 Note [facility] 10-26-2024 Note [facility] 10-26-2024 Note [facility] 10-25-2024 Consult note Associated Order (s): IP CONSULT TO NEPHROLOGY [facility] CON[facility] Patient Name: Elizabeth Cisneros MR #: [id number] : 1950 Requesting provider: Hospitalist Reason for consult: Hyponatremia Impression/Plan: Acute on chronic hyponatremia: Acute component could be due to poor solute intake. Chronic component could be due to Pristiq Baseline sodium in the low 130s. Presented with a sodium of 125 and now 130. -We ordered a urine sodium on admission. Has not been done yet. Urine osmolality elevated. -Continue with IV fluids as ordered 2. Hypokalemia due to GI losses and poor solute intake -Agree with replacement -Magnesium level appropriate 3. Pancreatitis -Per surgery History of Presenting Illness: Elizabeth Cisneros is a 74 y.o. female on hospital day 0 with a history of type 2 diabetes, anxiety, depression, coronary disease, hypertension, hypothyroidism, osteoporosis who presented to the hospital for evaluation of acute abdominal pain nausea vomiting and diarrhea. Patient reports that for the last 6 days prior to patient she has had intermittent peripheral quadrant pain, epigastric pain, associated with nausea, poor oral intake and that she only had sips of water and 1 slice of toast in the last 6 days. Patient reports that she has been on Pristiq and Remeron for some time. On admission patient was found have a sodium level of 125. She was started on IV fluids. Sodium now 30. Patient reports she feels much better. No longer having diarrhea. Minimal right upper quadrant pain. Home medication list includes Toradol. Patient reports it is an old medication as she has not taken Toradol in some time. Denies the use of hydrochlorothiazide. 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 Watters SINUS SURGERY 12/30/2019 balloon sinuplasty - Dr. Key SKIN BIOPSY TONSILLECTOMY TRIGGER FINGER RELEASE Right 03/24/2018 RELEASE A1 TOD LEFT MIDDLE,RING, AND SMALL FINGERS WITH CORTISONE INJECTION RIGHT MIDDLE FINGER A1 TOD; Surgeon: Yonas Nguyen MD TUBAL LIGATION Family History: Family History Problem Relation Age of Onset Hypertension Father Asthma Father COPD Father Diabetes Father Hearing loss Father Heart disease Father Hyperlipidemia Father Osteoporosis Mother Hypertension Mother Arthritis Mother Cancer Mother Heart disease Mother Heart disease Maternal Grandfather Heart disease Sister Hypertension Sister Cancer Brother Asthma Brother Diabetes Brother Anesthesia problems Neg Hx Hip fracture Neg Hx [] Unable to obtain due to ventilated and/or neurologic status Social History Socioeconomic History Marital status: Single Occupational History 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 Tobacco Use Smoking status: Former Current packs/day: 0.00 Average packs/day: 1.5 packs/day for 42.1 years (63.1 ttl pk-yrs) Types: Cigarettes Start date: 1979 Quit date: 09/17/2021 Years since quittin.1 Passive exposure: Past Smokeless tobacco: Never Tobacco comments: Cigarettes Vaping Use Vaping status: Never Used Substance and Sexual Activity Alcohol use: No Drug use: No Sexual activity: Not Currently control/protection: Pill, Diaphragm, I.U.D., Surgical Comment: hysterectomy at age 39 Social Drivers of Health Financial Resource Strain: Low Risk (10/14/2024) Overall Financial Resource Strain (CARDIA) Difficulty of Paying Living Expenses: Not hard at all Food Insecurity: No Food Insecurity (05/31/2024) Hunger Vital Sign Worried About Running Out of Food in the Last Year: Never true Ran Out of Food in the Last Year: Never true Transportation Needs: No Transportation Needs (05/31/2024) PRAPARE - Transportation Lack of Transportation (Medical): No Lack of Transportation (Non-Medical): No Housing Stability: Low Risk (05/31/2024) Housing Stability Vital Sign Unable to Pay for Housing in the Last Year: No Number of Times Moved in the Last Year: 1 Homeless in the Last Year: No [] Unable to obtain due to ventilated and/or neurologic status Living Arrangements: Alone Support Systems: Children, Family members Home Medications: Outpatient Medications as of 10/25/2024 Medication Sig acetaminophen (TYLENOL) 500 MG tablet Take 1 (one) tablet (500 mg total) by mouth every 6 (six) hours as needed for pain THREE TIMES DAILY . albuterol (PROVENTIL) 2.5 mg /3 mL (0.083 %) nebulizer solution Take 3 mL (2.5 mg total) by nebulization every 6 (six) hours as needed for wheezing . albuterol (PROVENTIL) 2.5 mg /3 mL (0.083 %) nebulizer solution Take 3 mL (2.5 mg total) by nebulization every 6 (six) hours as needed for wheezing . albuterol 90 mcg/actuation inhaler Inhale 1 (one) puff to 2 (two) puffs every 4 to 6 hours as needed . atenoloL (TENORMIN) 50 MG tablet Take 1 (one) tablet (50 mg total) by mouth 2 (two) times a day . [place] Saline Gel Apply topically 2 (two) times a day Apply a pea sized amount to both nostrils at bedtime and in a.m. You can use it more often.. Bevespi Aerosphere 9-4.8 mcg HFAA Inhale 2 puffs 2 (two) times a day . budesonide (PULMICORT) 0.5 mg/2 mL nebulizer solution Take 2 mL (0.5 mg total) by nebulization 2 (two) times a day . CALCITRATE 200 mg (950 mg) tablet Take 200 mg by mouth 3 (three) times a day . desvenlafaxine succinate (PRISTIQ) 100 MG 24 hr tablet Take 1 (one) tablet (100 mg total) by mouth daily . diclofenac sodium 1% (VOLTAREN) 1 % Gel Apply topically 4 (four) times a day as needed for pain . fexofenadine (LASHA) 180 MG tablet Take 1 (one) tablet (180 mg total) by mouth daily . Fish OiL 1,200 (144-216) mg cap Take 1 capsule by mouth 3 (three) times a day . fluticasone propionate (FLONASE) 50 mcg/actuation nasal spray Instill 2 (two) sprays into each nostril 2 (two) times a day . folic acid (FOLVITE) 1 MG tablet Take 1 (one) tablet (1 mg total) by mouth daily . furosemide (LASIX) 20 MG tablet Take 1 (one) tablet (20 mg total) by mouth daily . guaiFENesin (MUCINEX) 600 mg 12 hr tablet Take 2 (two) tablets (1,200 mg total) by mouth 2 (two) times a day . ketoconazole (NIZORAL) 2 % cream Apply topically daily to feet . ketorolac (TORADOL) 10 mg tablet Take 1 (one) tablet (10 mg total) by mouth every 6 (six) hours as needed . lansoprazole (PREVACID) 30 MG capsule Take 1 capsule by mouth every morning before breakfast on an empty stomach. . levothyroxine (SYNTHROID, LEVOTHROID) 75 MCG tablet Take 1 (one) tablet (75 mcg total) by mouth every morning DOS . magnesium glycinate 100 mg Tab Take 2.5 (two and a half) tablets (250 mg total) by mouth 2 (two) times a day . magnesium oxide (MAG-OX) 400 mg tablet Take 2.5 (two and a half) tablets (1,000 mg total) by mouth nightly . metaxalone (SKELAXIN) 800 MG tablet Take 1 (one) tablet (800 mg total) by mouth 3 (three) times a day as needed for muscle spasms . metroNIDAZOLE (METROGEL) 1 % gel Apply once daily to entire face montelukast (SINGULAIR) 10 mg tablet Take 1 (one) tablet (10 mg total) by mouth nightly . mupirocin (BACTROBAN) 2 % ointment Apply topically 2 (two) times a day . oxyCODONE-acetaminophen (PERCOCET) 5-325 mg per tablet Take 1 (one) tablet by mouth daily as needed for pain . Prolia 60 mg/mL Syrg Inject 60 (sixty) mg under the skin once for 1 dose. Therems-M 9 mg iron-400 mcg Tab Take 1 (one) tablet by mouth daily . ubrogepant (Ubrelvy) 100 mg Tab Take 1 (one) tablet (100 mg total) by mouth at bedtime as needed (migraines) . VITAMIN D3 2,000 unit cap Take 1 (one) capsule by mouth 2 (two) times a day . zinc gluconate 50 mg tablet Take 1 (one) tablet (50 mg total) by mouth daily . Current Hospital Medications: Scheduled Meds: enoxaparin (LOVENOX) injection 40 mg Subcutaneous Daily pantoprazole 40 mg Intravenous Daily potassium chloride 20 mEq Intravenous Q2H potassium chloride SA 40 mEq Oral Once sodium chloride (PF) 5 mL Intravenous Q8H BISHOP Continuous Infusions: dextrose 5 % and sodium chloride 0.9 % 75 mL/hr (10/25/24 0014) PRN Meds:.melatonin, morphine injection, nalOXone AND Notify physician AND naloxone, ondansetron, Saline lock IV AND sodium chloride (PF) AND sodium chloride (PF) AND sodium chloride 0.9 % dextrose 5 % and sodium chloride 0.9 % 75 mL/hr (10/25/24 0014) Allergies: I have reviewed the patient's allergies. Penicillin g, Sulfa (sulfonamide antibiotics), Trazodone, Celecoxib, Levofloxacin, [place], Niacin, Sulfites, and Cephalexin Review of Systems: [x] CV, Resp, GI, Neuro, and all other systems reviewed and negative other than listed in HPI. [] Unable to obtain due to intubation and/or neurologic status. Objective Findings: Vitals:BP 111/66 Pulse 72 Temp 98.4 F (36.9 C) (Oral) Resp 18 Wt 55.6 kg (122 lb 9.6 oz) SpO2 91% BMI 21.72 kg/m Intake/Output last 3 shifts: Intake/Output Summary (Last 24 hours) at 10/25/2024 1322 Last data filed at 10/25/2024 1215 Gross per 24 hour Intake -- Output 400 ml Net -400 ml No intake/output data recorded. Physical Examination: General: Age appropriate, NAD. HEENT: Normocephalic, no scleral icterus. Neck: No JVD. Heart: Regular, no murmur, no rub/gallop. Lungs: Clear to ascultation, no rales/wheezing/rhonchi. Good chest wall excursion. Abdomen: Soft, nontender, no supra-public fullness or tenderness. Extremities: No clubbing/cyanosis, no edema. Skin: Warm, dry, no rash, no bruise, no petichiae. Neuro: No myoclonus or tremor. Psych: Normal affect. : [] Payton present [x] Payton not present Results/Medications Reviewed: 10/25/24 1:22 PM: Laboratory, Microbiology, Pathology, Radiology, Cardiology, Medications and Transcriptions Laboratory: Results from last 7 days Lab Units 10/25/24 0339 10/24/24 1703 10/24/24 1701 WBC K/mcL 10.16 15.03* -- HGB g/dL 12.5 14.5 14.6 HCT % 36.6 42.1 41.3 PLT K/mcL 277 342 320 Results from last 7 days Lab Units 10/25/24 1220 10/25/24 0805 10/25/24 0338 10/24/24 2325 10/24/24 2325 10/24/24 1656 SODIUM mmol/L 130* 129* 127* < > 125* -- POTASSIUM mmol/L -- -- 3.1* -- 3.4* -- CHLORIDE mmol/L -- -- 91* -- 87* -- BICARB mmol/L -- -- 23 -- 22 -- BUN mg/dL -- -- 28* -- 30* -- POC BUN mg/dL -- -- -- -- -- 31* CREATININE mg/dL -- -- 1.02 -- 1.20 -- POC CREATININE (EPOC) mg/dL -- -- -- -- -- 1.05 EGFR mL/min/1.73 m2 -- -- 57* -- 47* -- GLUCOSE mg/dL -- -- 96 < > 83 -- CALCIUM mg/dL -- -- 8.1* -- 8.7 -- MAGNESIUM mg/dL -- 1.7 1.8 -- -- -- PHOSPHORUS mg/dL -- 2.5* 2.8 -- -- -- < > = values in this interval not displayed. Urinalysis Results from last 7 days Lab Units 10/25/24 1122 COLOR, UR Yellow CLARITY, UR Clear SPEC GRAV 1.046* PH, UR 5.5 GLUCOSE, UR mg/dL Negative KETONES, UR mg/dL Trace* BILIRUBIN, UR Negative UROBILINOGEN, UR mg/dL <2.0 BLOOD, UR Negative NITRITE, UR Negative LEUK MARY, UR Negative WBC, UR /hpf 2 BACTERIA, UR /hpf Rare* Risk/Complexity: [x] I have reviewed Progress Notes in the [facility] EHR and CareEverywhere. [x] I have interpreted/reviewed lab tests and radiography data in the [facility] EHR. [x] I have discussed the case with the primary service. [x] I have ordered appropriate tests/labs Comments: Thank you for allowing us to participate in the care of this patient. We will continue to follow. Please call if questions or concerns arise. Potential limitations of the note: Parts of this note were created by dictation via voice recognition software ([employer]). The completed note was reviewed for accuracy. However, there may be subtle errors that were not found during the review. If such errors are discovered, or if there are any questions or concerns regarding the recommendations/plan of care, please contact the author of the note prior to undertaking the recommendations/plan of care. [facility] 10-25-2024 Consult note Associated Order (s): IP CONSULT TO NEPHROLOGY NEPH[facility]OLOGY CONS[facility]ATION [facility] Patient Name: Elizabeth Cisneros MR #: [id number] : 1950 Requesting provider: Hospitalist Reason for consult: Hyponatremia Impression/Plan: Acute on chronic hyponatremia: Acute component could be due to poor solute intake. Chronic component could be due to Pristiq Baseline sodium in the low 130s. Presented with a sodium of 125 and now 130. -We ordered a urine sodium on admission. Has not been done yet. Urine osmolality elevated. -Continue with IV fluids as ordered 2. Hypokalemia due to GI losses and poor solute intake -Agree with replacement -Magnesium level appropriate 3. Pancreatitis -Per surgery History of Presenting Illness: Elizabeth Cisneros is a 74 y.o. female on hospital day 0 with a history of type 2 diabetes, anxiety, depression, coronary disease, hypertension, hypothyroidism, osteoporosis who presented to the hospital for evaluation of acute abdominal pain nausea vomiting and diarrhea. Patient reports that for the last 6 days prior to patient she has had intermittent peripheral quadrant pain, epigastric pain, associated with nausea, poor oral intake and that she only had sips of water and 1 slice of toast in the last 6 days. Patient reports that she has been on Pristiq and Remeron for some time. On admission patient was found have a sodium level of 125. She was started on IV fluids. Sodium now 30. Patient reports she feels much better. No longer having diarrhea. Minimal right upper quadrant pain. Home medication list includes Toradol. Patient reports it is an old medication as she has not taken Toradol in some time. Denies the use of hydrochlorothiazide. 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 Watters SINUS SURGERY 12/30/2019 balloon sinuplasty - Dr. Key SKIN BIOPSY TONSILLECTOMY TRIGGER FINGER RELEASE Right 03/24/2018 RELEASE A1 TOD LEFT MIDDLE,RING, AND SMALL FINGERS WITH CORTISONE INJECTION RIGHT MIDDLE FINGER A1 TOD; Surgeon: Yonas Nguyen MD TUBAL LIGATION Family History: Family History Problem Relation Age of Onset Hypertension Father Asthma Father COPD Father Diabetes Father Hearing loss Father Heart disease Father Hyperlipidemia Father Osteoporosis Mother Hypertension Mother Arthritis Mother Cancer Mother Heart disease Mother Heart disease Maternal Grandfather Heart disease Sister Hypertension Sister Cancer Brother Asthma Brother Diabetes Brother Anesthesia problems Neg Hx Hip fracture Neg Hx [] Unable to obtain due to ventilated and/or neurologic status Social History Socioeconomic History Marital status: Single Occupational History 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 Tobacco Use Smoking status: Former Current packs/day: 0.00 Average packs/day: 1.5 packs/day for 42.1 years (63.1 ttl pk-yrs) Types: Cigarettes Start date: 1979 Quit date: 09/17/2021 Years since quittin.1 Passive exposure: Past Smokeless tobacco: Never Tobacco comments: Cigarettes Vaping Use Vaping status: Never Used Substance and Sexual Activity Alcohol use: No Drug use: No Sexual activity: Not Currently control/protection: Pill, Diaphragm, I.U.D., Surgical Comment: hysterectomy at age 39 Social Drivers of Health Financial Resource Strain: Low Risk (10/14/2024) Overall Financial Resource Strain (CARDIA) Difficulty of Paying Living Expenses: Not hard at all Food Insecurity: No Food Insecurity (05/31/2024) Hunger Vital Sign Worried About Running Out of Food in the Last Year: Never true Ran Out of Food in the Last Year: Never true Transportation Needs: No Transportation Needs (05/31/2024) PRAPARE - Transportation Lack of Transportation (Medical): No Lack of Transportation (Non-Medical): No Housing Stability: Low Risk (05/31/2024) Housing Stability Vital Sign Unable to Pay for Housing in the Last Year: No Number of Times Moved in the Last Year: 1 Homeless in the Last Year: No [] Unable to obtain due to ventilated and/or neurologic status Living Arrangements: Alone Support Systems: Children, Family members Home Medications: Outpatient Medications as of 10/25/2024 Medication Sig acetaminophen (TYLENOL) 500 MG tablet Take 1 (one) tablet (500 mg total) by mouth every 6 (six) hours as needed for pain THREE TIMES DAILY . albuterol (PROVENTIL) 2.5 mg /3 mL (0.083 %) nebulizer solution Take 3 mL (2.5 mg total) by nebulization every 6 (six) hours as needed for wheezing . albuterol (PROVENTIL) 2.5 mg /3 mL (0.083 %) nebulizer solution Take 3 mL (2.5 mg total) by nebulization every 6 (six) hours as needed for wheezing . albuterol 90 mcg/actuation inhaler Inhale 1 (one) puff to 2 (two) puffs every 4 to 6 hours as needed . atenoloL (TENORMIN) 50 MG tablet Take 1 (one) tablet (50 mg total) by mouth 2 (two) times a day . [place] Saline Gel Apply topically 2 (two) times a day Apply a pea sized amount to both nostrils at bedtime and in a.m. You can use it more often.. Bevespi Aerosphere 9-4.8 mcg HFAA Inhale 2 puffs 2 (two) times a day . budesonide (PULMICORT) 0.5 mg/2 mL nebulizer solution Take 2 mL (0.5 mg total) by nebulization 2 (two) times a day . CALCITRATE 200 mg (950 mg) tablet Take 200 mg by mouth 3 (three) times a day . desvenlafaxine succinate (PRISTIQ) 100 MG 24 hr tablet Take 1 (one) tablet (100 mg total) by mouth daily . diclofenac sodium 1% (VOLTAREN) 1 % Gel Apply topically 4 (four) times a day as needed for pain . fexofenadine (LASHA) 180 MG tablet Take 1 (one) tablet (180 mg total) by mouth daily . Fish OiL 1,200 (144-216) mg cap Take 1 capsule by mouth 3 (three) times a day . fluticasone propionate (FLONASE) 50 mcg/actuation nasal spray Instill 2 (two) sprays into each nostril 2 (two) times a day . folic acid (FOLVITE) 1 MG tablet Take 1 (one) tablet (1 mg total) by mouth daily . furosemide (LASIX) 20 MG tablet Take 1 (one) tablet (20 mg total) by mouth daily . guaiFENesin (MUCINEX) 600 mg 12 hr tablet Take 2 (two) tablets (1,200 mg total) by mouth 2 (two) times a day . ketoconazole (NIZORAL) 2 % cream Apply topically daily to feet . ketorolac (TORADOL) 10 mg tablet Take 1 (one) tablet (10 mg total) by mouth every 6 (six) hours as needed . lansoprazole (PREVACID) 30 MG capsule Take 1 capsule by mouth every morning before breakfast on an empty stomach. . levothyroxine (SYNTHROID, LEVOTHROID) 75 MCG tablet Take 1 (one) tablet (75 mcg total) by mouth every morning DOS . magnesium glycinate 100 mg Tab Take 2.5 (two and a half) tablets (250 mg total) by mouth 2 (two) times a day . magnesium oxide (MAG-OX) 400 mg tablet Take 2.5 (two and a half) tablets (1,000 mg total) by mouth nightly . metaxalone (SKELAXIN) 800 MG tablet Take 1 (one) tablet (800 mg total) by mouth 3 (three) times a day as needed for muscle spasms . metroNIDAZOLE (METROGEL) 1 % gel Apply once daily to entire face montelukast (SINGULAIR) 10 mg tablet Take 1 (one) tablet (10 mg total) by mouth nightly . mupirocin (BACTROBAN) 2 % ointment Apply topically 2 (two) times a day . oxyCODONE-acetaminophen (PERCOCET) 5-325 mg per tablet Take 1 (one) tablet by mouth daily as needed for pain . Prolia 60 mg/mL Syrg Inject 60 (sixty) mg under the skin once for 1 dose. Therems-M 9 mg iron-400 mcg Tab Take 1 (one) tablet by mouth daily . ubrogepant (Ubrelvy) 100 mg Tab Take 1 (one) tablet (100 mg total) by mouth at bedtime as needed (migraines) . VITAMIN D3 2,000 unit cap Take 1 (one) capsule by mouth 2 (two) times a day . zinc gluconate 50 mg tablet Take 1 (one) tablet (50 mg total) by mouth daily . Current Hospital Medications: Scheduled Meds: enoxaparin (LOVENOX) injection 40 mg Subcutaneous Daily pantoprazole 40 mg Intravenous Daily potassium chloride 20 mEq Intravenous Q2H potassium chloride SA 40 mEq Oral Once sodium chloride (PF) 5 mL Intravenous Q8H BISHOP Continuous Infusions: dextrose 5 % and sodium chloride 0.9 % 75 mL/hr (10/25/2413) PRN Meds:.melatonin, morphine injection, nalOXone AND Notify physician AND naloxone, ondansetron, Saline lock IV AND sodium chloride (PF) AND sodium chloride (PF) AND sodium chloride 0.9 % dextrose 5 % and sodium chloride 0.9 % 75 mL/hr (10/25/2413) Allergies: I have reviewed the patient's allergies. Penicillin g, Sulfa (sulfonamide antibiotics), Trazodone, Celecoxib, Levofloxacin, [place], Niacin, Sulfites, and Cephalexin Review of Systems: [x] CV, Resp, GI, Neuro, and all other systems reviewed and negative other than listed in HPI. [] Unable to obtain due to intubation and/or neurologic status. Objective Findings: Vitals:BP 111/66 Pulse 72 Temp 98.4 F (36.9 C) (Oral) Resp 18 Wt 55.6 kg (122 lb 9.6 oz) SpO2 91% BMI 21.72 kg/m Intake/Output last 3 shifts: Intake/Output Summary (Last 24 hours) at 10/25/2024 1322 Last data filed at 10/25/2024 1215 Gross per 24 hour Intake -- Output 400 ml Net -400 ml No intake/output data recorded. Physical Examination: General: Age appropriate, NAD. HEENT: Normocephalic, no scleral icterus. Neck: No JVD. Heart: Regular, no murmur, no rub/gallop. Lungs: Clear to ascultation, no rales/wheezing/rhonchi. Good chest wall excursion. Abdomen: Soft, nontender, no supra-public fullness or tenderness. Extremities: No clubbing/cyanosis, no edema. Skin: Warm, dry, no rash, no bruise, no petichiae. Neuro: No myoclonus or tremor. Psych: Normal affect. : [] Payton present [x] Payton not present Results/Medications Reviewed: 10/25/24 1:22 PM: Laboratory, Microbiology, Pathology, Radiology, Cardiology, Medications and Transcriptions Laboratory: Results from last 7 days Lab Units 10/25/24 0339 10/24/24 1703 10/24/24 1701 WBC K/mcL 10.16 15.03* -- HGB g/dL 12.5 14.5 14.6 HCT % 36.6 42.1 41.3 PLT K/mcL 277 342 320 Results from last 7 days Lab Units 10/25/24 1220 10/25/24 0805 10/25/24 0338 10/24/24 2325 10/24/24 2325 10/24/24 1656 SODIUM mmol/L 130* 129* 127* < > 125* -- POTASSIUM mmol/L -- -- 3.1* -- 3.4* -- CHLORIDE mmol/L -- -- 91* -- 87* -- BICARB mmol/L -- -- 23 -- 22 -- BUN mg/dL -- -- 28* -- 30* -- POC BUN mg/dL -- -- -- -- -- 31* CREATININE mg/dL -- -- 1.02 -- 1.20 -- POC CREATININE (EPOC) mg/dL -- -- -- -- -- 1.05 EGFR mL/min/1.73 m2 -- -- 57* -- 47* -- GLUCOSE mg/dL -- -- 96 < > 83 -- CALCIUM mg/dL -- -- 8.1* -- 8.7 -- MAGNESIUM mg/dL -- 1.7 1.8 -- -- -- PHOSPHORUS mg/dL -- 2.5* 2.8 -- -- -- < > = values in this interval not displayed. Urinalysis Results from last 7 days Lab Units 10/25/24 1122 COLOR, UR Yellow CLARITY, UR Clear SPEC GRAV 1.046* PH, UR 5.5 GLUCOSE, UR mg/dL Negative KETONES, UR mg/dL Trace* BILIRUBIN, UR Negative UROBILINOGEN, UR mg/dL <2.0 BLOOD, UR Negative NITRITE, UR Negative LEUK MARY, UR Negative WBC, UR /hpf 2 BACTERIA, UR /hpf Rare* Risk/Complexity: [x] I have reviewed Progress Notes in the [facility] EHR and CareEverywhere. [x] I have interpreted/reviewed lab tests and radiography data in the [facility] EHR. [x] I have discussed the case with the primary service. [x] I have ordered appropriate tests/labs Comments: Thank you for allowing us to participate in the care of this patient. We will continue to follow. Please call if questions or concerns arise. Potential limitations of the note: Parts of this note were created by dictation via voice recognition software (OptTown). The completed note was reviewed for accuracy. However, there may be subtle errors that were not found during the review. If such errors are discovered, or if there are any questions or concerns regarding the recommendations/plan of care, please contact the author of the note prior to undertaking the recommendations/plan of care. Associated Order(s): IP CONSULT TO [facility] Care Management Consult Note Date: 10/25/2024 Time: 11:00 AM Patient Name: Elizabeth Cisneros Date of : 1950 Reason for Consult: SN,PT,OT Is [facility] plan complete or pending? (List items pending) complete Name of [facility] agency: Pending / Accepted (if [facility], include region) [facility] Referrals sent to: (names of agencies) [facility] accepted Infusion pharmacy: (name) Referral pending or accepted? For OPAT, TPN, or TF: (list) Referral order placed? Has script been sent? (Yes/no) n/a [facility] (orders) created for the following services: [or waiting for ____ (i.e wound care)] SN,PT,OT Verify demographics (residential address) [address] [place] [address] [place] [phone] What is the primary number to reach you? [phone] (Home Phone) Who is your family physician/primary care physician? Sj Motley MD Do you have a caregiver and/or teachable caregiver (list relationship, name & phone #)? Emery Cisneros (Child) Estimated Discharge Date (LOLA): 10/30/24 If discharge needs change, please reach out to liaison assigned on treatment team as hub is not notified of new consults once team is following. Thank you. Discharge Plan: Discharging Transportation Plan: Assessment and Background Information: Living Arrangements: Alone Support Systems: Children, Family members Assistance Needed: none Type of Residence: Private residence Prior to Admission Home Care Services: No Associated Order(s): IP CONSULT TO CARE MANAGEMENT Care Management Consult Note Date: 10/25/2024 Time: 2:03 PM Patient Name: Elizabeth Cisneros Date of : 1950 Reason for Consult: Discharge Plan: D/C Disposition: Home Health Care Services Final D/C Agency/Destination: [facility] Plan A: Home Health Care Services Plan A : Post Acute Patient Choice 1: [facility] Discharging Transportation Plan: Discharge Plan Status: pend medical readiness Assessment and Background Information: RN JENI Assessment: Face to Face with pt for initial transition planning/care coordination assessment. RN JENI introduced self and role, pt voices understanding and consents to assessment. Pt is A/Ox4 and answers all questions appropriately at this time. Pt is sitting up in bed in no distress on room air. Care providers, pharmacy, and demographics verified/updated. Admitting Dx: Acute pancreatitis PCP: Tiesha Specialists: ritika Valencia; Amira, neurosurg; Day, cardio Preferred Pharmacy: [facility] Insurance: [employer]/[facility]-pt also has [facility] Prescription Benefit: yes, pt states no concerns obtaining/affording meds and is compliant with meds at home. LW/HPOA: Pt states would like to complete LW/HPOA and [place], CME, aware. LNOK: Emery Cisneros, son Living Arrangements: Pt lives alone in 1 story 2 bedroom apt with no steps in and states is normally independent with ADL's at home. Transportation: Pt states she is basically homebound and states no concerns with transportation if needed. Pt gets groceries delivered to home. Pt states [id number] assists, if needed. DME/HHC/SNF: Pt states no need for further DME. Pt states would like [facility] SN/PT/OT set up for discharge and order to [facility] for same. Pt declines [facility] list. Pt states has been to [place] in the past. Pt has [facility] listed and she is updated on admission. Pt is retired. Pt states does not smoke cigarettes or drink ETOH. Pt states no concerns with going home at time of dc and states no further questions/concerns/needs. Advised pt to ask for CM if any further question/concerns/needs arise, voices understanding. CM to follow. Pt Goal: Home w/ HHC Plan: Home w/ HHC, pending PT/OT, clinical course Addendum 1510 [facility] accepted pt and PT/OT still pending. CM to follow. Living Arrangements: Alone Support Systems: Family members Assistance Needed: none Type of Residence: Private residence Prior to Admission Home Care Services: No Patient expects to be discharged to:: Home w/ HHC Does the patient need discharge transport arranged?: No Current Home Equipment: Cane, Adaptive equipment, Tub/Shower chair, Wheeled walker, Other (Comment) (rollator) Holistic Assessment Medication adherence problem:: No History of falls in last 6 months:: (!) Yes Family aware of the patient's advance care planning wishes:: Yes Do you have any cultural/spiritual connections or beliefs that would impact how we deliver your care?: No Chronic pain:: (!) Yes Location of chronic pain:: back, headaches Chronic pain timing:: Intermittent Limitation of routine activities due to chronic pain:: Yes Associated Order(s): IP CONSULT TO NEUROSURGERY 74 year old female admitted for abdominal complaints presents with incidental L1 and L4 superior endplate compression fractures on abdominal imaging workup not seen on MRI Lsp wo from 06/02/24, no current lumbar pain nor new neurologic deficits. She advised that she awaits cervical spine surgery with Dr. Collier and that he may consider vertebral body augmentation surgery for her previously-documented T12, L2 compression fractures. I spoke with Ms. Cisneros and showed her the images and advised her of both nonoperative and operative treatment options, their benefits and risks and reasons to return to the ED for re-evaluation. As she is asymptomatic from a back pain perspective, she advised that she would like to proceed with observation, will user her Colindres's back support and refrain from exertional activities. She asked pertinent questions and I answered those. She expressed that she understood me and is in agreement with the plan. No further acute neurosurgical intervention indicated at this time: Activity ad don with fall precautions Lsp x-rays - UPRIGHT 2 view re: reference Avoid extremes in ROM, bending, twisting, lifting>10lbs, strenuous activities; use back corset while upright and mobilizing 3. DVT prophylaxis: SCD's, Enoxaparin 4. Return to ED if new-onset back pain, weakness, groin numbness, loss of bladder/bowel control, difficulty with ambulation 5. Follow up with neurosurgery clinic in 1-2 weeks with repeat UPRIGHT Lsp x-rays before visit 6. Will sign off, reconsult PRN, thank you 74 year old female patient of Sj Motley M.D., who presented as a direct admit from [facility] ED for acute abdominal pain, nausea, vomiting and diarrhea found to have new L1 and L4 superior endplate compression fractures on CT imaging. Reports some referred upper thoracic pain, perhaps from her pancreas. No other neck/back pain. No antiplatelet/anticoagulant meds. No headaches, visual changes, fevers, chills, nausea, vomiting, weakness, numbness, tingling, or bowel/bladder control issues. 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 Watters SINUS SURGERY 12/30/2019 balloon sinuplasty - Dr. Key SKIN BIOPSY TONSILLECTOMY TRIGGER FINGER RELEASE Right 03/24/2018 RELEASE A1 TOD LEFT MIDDLE,RING, AND SMALL FINGERS WITH CORTISONE INJECTION RIGHT MIDDLE FINGER A1 TOD; Surgeon: Yonas Nguyen MD TUBAL LIGATION Family History Problem Relation Age of Onset Hypertension Father Asthma Father COPD Father Diabetes Father Hearing loss Father Heart disease Father Hyperlipidemia Father Osteoporosis Mother Hypertension Mother Arthritis Mother Cancer Mother Heart disease Mother Heart disease Maternal Grandfather Heart disease Sister Hypertension Sister Cancer Brother Asthma Brother Diabetes Brother Anesthesia problems Neg Hx Hip fracture Neg Hx Allergies Penicillin, Sulfa, Trazadone Celecoxib Levofloxacin [place] Niacin Sulfites Cephalexin Social History No smoking, EtOH, recreational substances Son: Mr. 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 LONG: Per above MUSCLES: No muscle wasting, pains, or weakness JOINTS: Per above NEURO: Per above ENDOCRINE: Per above PSYCHIATRIC: Per above HEMATOLOGIC/LYMPHATIC: Per above ALLERGIC/IMMUNOLOGIC: No seasonal allergies, hay fever, urticaria OTHER: No other significant issues reported Temp 97.4 HR 76 RR 14-18 BP 107/68 Eyes open spontaneously, AAOx4,EOMI, 3->2mm PERRLA CN 2-12 intact RAMIREZ 5/5 Sensory no deficit to pain or light touch No Glynn's, no Babinski Spines nontender WBC 10 Hb 12.5 Plt 277 Na 129 K 3.1 Bun 28 Cr 1 10/24/24 CT TspLsp wo Lower thorax: No pericardial or pleural effusion. Subpleural reticular and tree-in-bud opacities in the right greater than left lower lobes. Liver and biliary tree: No focal hepatic lesions. Gallbladder: Gallbladder appears distended. Spleen: Normal. Pancreas: There is peripancreatic stranding near the tail of the pancreas and interposed between the head of the pancreas and duodenum. Adrenal glands: Normal. Kidneys and ureters: Kidneys symmetrically enhance. No obstructive uropathy. Bilateral renal cysts. Urinary bladder: Under-distended which limits evaluation. Reproductive organs: Hysterectomy. Gastrointestinal tract: Lower esophagus and stomach are unremarkable. Mild duodenal wall thickening. There is no small bowel obstruction. The patient is status post appendectomy. There is fluid within the cecum and ascending colon. Colonic diverticulosis without evidence of diverticulitis. Peritoneal cavity: No free fluid or free air. Vasculature: Atherosclerosis. Ectasia of the infrarenal aorta up to 2.6 cm. Lymph nodes: No bulky lymphadenopathy. Abdominal wall: No acute findings. Stable area of fluid within the left ventral abdominal wall. Musculoskeletal: There are new compression fractures of T12, L1, and superior endplate of L4. The known L2 fracture is not substantially changed. The T12 fracture is approximately 40% compressed. The L1 fracture is compressed approximately 60%. The patient is status post total left hip arthroplasty. IMPRESSION: 1. New compression fractures of T12, L1, and superior endplate fracture of L4. 2. Peripancreatic stranding suggests acute pancreatitis. Small amount of stranding is also interposed between the head of the pancreas and duodenum which could represent concomitant duodenitis. 3. The gallbladder appears distended. If clinically indicated, consider right upper quadrant ultrasound. 4. Tree-in-bud opacities in the lung bases suggest an atypical infectious or inflammatory small airways disease and bronchiolitis. 5. Fluid within the cecum and ascending colon could be related to diarrheal illness. 6. Status post hysterectomy and appendectomy. 06/02/24 MRI Lso wo Conus: Terminates at L1. Spinal Cord and Cauda Equina: Normal. Epidural Hematoma: None. Alignment: Grade 1 anterolisthesis of L4 on L5. Marrow Signal and Vertebral Body Heights: Heterogenous marrow signal likely reflects osseous demineralization/fatty infiltration. Marrow edema in the recent L2 compression fracture deformity with less than 50% height loss and approximately 0.5 cm of retropulsion of the posterior L2 endplate. The remote superior endplate fracture deformity of T12 demonstrates less than 50% height loss and no retropulsion. Sacroiliac Joints: Grossly intact.. Paraspinal Soft Tissues: No acute abnormalities. Retroperitoneal Soft Tissues: No acute abnormalities. Bilateral hyperintense T2 renal cysts. Spondylotic Changes: Multilevel spondylotic changes include diffuse disc desiccation and varying degrees of intervertebral disc height loss, osteophytic ridging, and facet/ligamentum flavum hypertrophy. Multilevel Schmorl's nodes. T11-T12: Slight disc bulge and osteophytic ridging together indent the ventral thecal sac. No high-grade spinal canal or foraminal narrowing. T12-L1: No disc bulge or herniation. No high-grade spinal canal or foraminal narrowing. Mild bilateral facet hypertrophy. L1-L2: Slight disc bulge indents the ventral thecal sac. Mild spinal canal narrowing. [id number]-[id number] bilateral foraminal narrowing. Mild bilateral facet/ligamentum flavum hypertrophy. L2-L3: Slight disc bulge indents the ventral thecal sac. No high-grade spinal canal narrowing. Mild bilateral foraminal narrowing. Mild bilateral facet/ligamentum flavum hypertrophy. L3-L4: Disc bulge indents the ventral thecal sac. No high-grade spinal canal narrowing. [id number]-[id number] bilateral foraminal narrowing. Mild bilateral facet/ligamentum flavum hypertrophy. L4-L5: Disc bulge indents the ventral thecal sac with a component of disc unroofing. Mild spinal canal narrowing. Moderate bilateral foraminal narrowing. Moderate bilateral facet/ligamentum flavum hypertrophy. L5-S1: Slight disc bulge and osteophytic ridging together indent the ventral thecal sac. No high-grade spinal canal narrowing. Moderate bilateral foraminal narrowing. Mild bilateral facet hypertrophy. IMPRESSION: 1. Recent (acute/subacute) L2 compression fracture deformity with less than 50% height loss and approximately 0.5 cm of retropulsion. 2. Remote superior endplate deformity of T12 with less than 50% height loss and no retropulsion. 3. Multilevel spondylotic changes without high-grade spinal canal or foraminal narrowing at any lumbar level. I spent minutes on this evaluation, with >80% of time spent in direct clinical care activities and coordination of care with allied services. I spent 59 minutes on this evaluation, with >80% of time spent in direct clinical care activities and coordination of care with allied services. ; [facility] SURGICAL HISTORY & PHYSICAL/CONSULTATION NOTE ======ASSESSMENT & PLAN/ACTIVE MEDICAL PROBLEMS: Concern for gallstone pancreatitis CT A/P with peripancreatic stranding suggesting acute pancreatitis as well as gallbladder distention. There is also a small amount of stranding superimposed between the head of the pancreas and the duodenum concerning for duodenitis. WBC 15, T. bili 1.4, ALT 25, AST 44. afebrile NPO, IVF Obtain RUQ ultrasound Trend LFTs Recommend medical treatment of pancreatitis and electrolyte abnormalities Final surgical plan to follow. CHIEF COMPLAINT: Dehydration. HISTORY OF PRESENT ILLNESS / INJURY (HPI): Elizabeth is a 74 year old female with the below medical history who presented to [facility] ED with a chief complaint of generalized epigastric and RUQ abdominal pain and inability to tolerate PO intake. CT was concerning for pancreatitis with gallbladder wall thickening, she was transferred for medical admission, management of electrolyte abnormalities and pancreatitis and surgical consultation. The patient tells me that she had just finished up a 7 days course of doxycycline for pneumonia treatment when her 5 day history of epigastric and RUQ abdominal began. She has been unable to hold down sips of water and has only had a slice of toast in the last several days. She denies any associated fevers or chills. 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 Watters SINUS SURGERY 12/30/2019 balloon sinuplasty - Dr. Key SKIN BIOPSY TONSILLECTOMY TRIGGER FINGER RELEASE Right 03/24/2018 RELEASE A1 TOD LEFT MIDDLE,RING, AND SMALL FINGERS WITH CORTISONE INJECTION RIGHT MIDDLE FINGER A1 TOD; Surgeon: Yonas Nguyen MD TUBAL LIGATION Social History Tobacco Use Smoking status: Former Current packs/day: 0.00 Average packs/day: 1.5 packs/day for 42.1 years (63.1 ttl pk-yrs) Types: Cigarettes Start date: 1979 Quit date: 09/17/2021 Years since quittin.1 Passive exposure: Past Smokeless tobacco: Never Tobacco comments: Cigarettes Vaping Use Vaping status: Never Used Substance Use Topics Alcohol use: No Drug use: No Family History Problem Relation Age of Onset Hypertension Father Asthma Father COPD Father Diabetes Father Hearing loss Father Heart disease Father Hyperlipidemia Father Osteoporosis Mother Hypertension Mother Arthritis Mother Cancer Mother Heart disease Mother Heart disease Maternal Grandfather Heart disease Sister Hypertension Sister Cancer Brother Asthma Brother Diabetes Brother Anesthesia problems Neg Hx Hip fracture Neg Hx MEDICATIONS: Current Facility-Administered Medications on File Prior to Encounter Medication Dose Route Frequency Provider Last Rate Last Admin [COMPLETED] iopamidoL (ISOVUE-370) 370 mg iodine /mL (76 %) injection 75 mL 75 mL Intravenous Once in imaging Juanjo Mac MD 75 mL at 10/24/24 1729 [COMPLETED] morphine injection 4 mg 4 mg Intravenous Once Juanjo Mac MD 4 mg at 10/24/24 1705 [COMPLETED] ondansetron (ZOFRAN) injection 4 mg 4 mg Intravenous Once Juanjo Mac MD 4 mg at 10/24/24 1705 [COMPLETED] sodium chloride (PF) (NS) 0.9 % contrast line flush 10 mL 10 mL Intravenous Once in imaging Juanjo Mac MD 10 mL at 10/24/24 1732 And [COMPLETED] sodium chloride (PF) (NS) 0.9 % contrast line flush 80 mL 80 mL Intravenous Once in imaging Juanjo Mac MD 80 mL at 10/24/24 173 [COMPLETED] sodium chloride 0.9% (NS) bolus 1,000 mL 1,000 mL Intravenous Once Juanjo Mac MD Stopped at 10/24/242131 [DISCONTINUED] sodium chloride (PF) (NS) flush 5 mL 5 mL Intravenous PRN Juanjo Mac MD [DISCONTINUED] sodium chloride 0.9% (NS) 0-150 mL/hr Intravenous PRN Juanjo Mac MD Current Outpatient Medications on File Prior to Encounter Medication Sig Dispense Refill acetaminophen (TYLENOL) 500 MG tablet Take 1 (one) tablet (500 mg total) by mouth every 6 (six) hours as needed for pain THREE TIMES DAILY . albuterol (PROVENTIL) 2.5 mg /3 mL (0.083 %) nebulizer solution Take 3 mL (2.5 mg total) by nebulization every 6 (six) hours as needed for wheezing . 360 mL 12 albuterol (PROVENTIL) 2.5 mg /3 mL (0.083 %) nebulizer solution Take 3 mL (2.5 mg total) by nebulization every 6 (six) hours as needed for wheezing . 75 mL 0 albuterol 90 mcg/actuation inhaler Inhale 1 (one) puff to 2 (two) puffs every 4 to 6 hours as needed . atenoloL (TENORMIN) 50 MG tablet Take 1 (one) tablet (50 mg total) by mouth 2 (two) times a day . 120 tablet 0 [place] Saline Gel Apply topically 2 (two) times a day Apply a pea sized amount to both nostrils at bedtime and in a.m. You can use it more often.. 14.1 g 12 Bevespi Aerosphere 9-4.8 mcg HFAA Inhale 2 puffs 2 (two) times a day . 10.7 g 11 budesonide (PULMICORT) 0.5 mg/2 mL nebulizer solution Take 2 mL (0.5 mg total) by nebulization 2 (two) times a day . 60 mL 11 CALCITRATE 200 mg (950 mg) tablet Take 200 mg by mouth 3 (three) times a day . 0 desvenlafaxine succinate (PRISTIQ) 100 MG 24 hr tablet Take 1 (one) tablet (100 mg total) by mouth daily . 30 tablet 2 diclofenac sodium 1% (VOLTAREN) 1 % Gel Apply topically 4 (four) times a day as needed for pain . 450 g 2 [] doxycycline hyclate (VIBRA-TABS) 100 MG tablet Take 1 (one) tablet (100 mg total) by mouth 2 (two) times a day for 10 days . 20 tablet 0 fexofenadine (LASHA) 180 MG tablet Take 1 (one) tablet (180 mg total) by mouth daily . Fish OiL 1,200 (144-216) mg cap Take 1 capsule by mouth 3 (three) times a day . fluticasone propionate (FLONASE) 50 mcg/actuation nasal spray Instill 2 (two) sprays into each nostril 2 (two) times a day . 18.2 mL 3 folic acid (FOLVITE) 1 MG tablet Take 1 (one) tablet (1 mg total) by mouth daily . furosemide (LASIX) 20 MG tablet Take 1 (one) tablet (20 mg total) by mouth daily . 90 tablet 1 guaiFENesin (MUCINEX) 600 mg 12 hr tablet Take 2 (two) tablets (1,200 mg total) by mouth 2 (two) times a day . ketoconazole (NIZORAL) 2 % cream Apply topically daily to feet . ketorolac (TORADOL) 10 mg tablet Take 1 (one) tablet (10 mg total) by mouth every 6 (six) hours as needed . 12 tablet 0 lansoprazole (PREVACID) 30 MG capsule Take 1 capsule by mouth every morning before breakfast on an empty stomach. . 90 capsule 3 levothyroxine (SYNTHROID, LEVOTHROID) 75 MCG tablet Take 1 (one) tablet (75 mcg total) by mouth every morning DOS . 90 tablet 1 magnesium glycinate 100 mg Tab Take 2.5 (two and a half) tablets (250 mg total) by mouth 2 (two) times a day . magnesium oxide (MAG-OX) 400 mg tablet Take 2.5 (two and a half) tablets (1,000 mg total) by mouth nightly . metaxalone (SKELAXIN) 800 MG tablet Take 1 (one) tablet (800 mg total) by mouth 3 (three) times a day as needed for muscle spasms . 90 tablet 1 metroNIDAZOLE (METROGEL) 1 % gel Apply once daily to entire face mirtazapine (REMERON) 45 MG tablet Take 1 (one) tablet (45 mg total) by mouth nightly . 30 tablet 2 montelukast (SINGULAIR) 10 mg tablet Take 1 (one) tablet (10 mg total) by mouth nightly . 30 tablet 11 mupirocin (BACTROBAN) 2 % ointment Apply topically 2 (two) times a day . 22 g 0 Nucala 100 mg/mL AtIn Inject 1 mL (100 mg total) under the skin every 28 days . 3 mL 11 oxyCODONE-acetaminophen (PERCOCET) 5-325 mg per tablet Take 1 (one) tablet by mouth daily as needed for pain . 30 tablet 0 Prolia 60 mg/mL Syrg Inject 60 (sixty) mg under the skin once for 1 dose. Therems-M 9 mg iron-400 mcg Tab Take 1 (one) tablet by mouth daily . ubrogepant (Ubrelvy) 100 mg Tab Take 1 (one) tablet (100 mg total) by mouth at bedtime as needed (migraines) . 10 tablet 3 VITAMIN D3 2,000 unit cap Take 1 (one) capsule by mouth 2 (two) times a day . 0 zinc gluconate 50 mg tablet Take 1 (one) tablet (50 mg total) by mouth daily . ALLERGIES: Allergies Allergen Reactions Penicillin G Hives, Shortness Of Breath and Swelling Sulfa (Sulfonamide Antibiotics) Hives, Shortness Of Breath and Swelling Trazodone Hives and Shortness Of Breath Celecoxib Hives Difficulty breathing, swelling Levofloxacin GI Intolerance Nausea and vomiting. [place] Diarrhea Other reaction(s): Vomiting Niacin Unknown Sulfites Cephalexin Rash REVIEW OF SYSTEMS: COVID19 Screen: Negative for fever, cough, SOB, exposure. Constitutional Symptoms: Negative for unexplained falls, weight loss Eyes: Negative for eye pain or vision changes Ears, Nose, Mouth, Throat: Negative for rhinorrhea, nasal pain, dysphagia, hoarseness Cardiovascular: Negative for chest pain, orthopnea, edema Respiratory: Negative for cough, shortness of breath Gastrointestinal: +abdominal pain, nausea, vomiting Genitourinary: Negative for dysuria, hematuria Musculoskeletal: Negative for pain, joint edema Skin/Breast: Negative for rash, itching, lesions Neurological: Negative for paresthesia, paralysis, loss of bowel or bladder control, loss of consciousness Psychiatric: Negative for depression, anxiety, or suicidal ideations Endocrine: Negative for heat/cold intolerance, polydipsia, polyphagia, polyuria Hematologic/Lymphatic: Negative for anticoagulant use, antiplatelet use, family hx of clotting or bleeding disorders Allergic/Immunologic: Allergies reviewed, no use of immunosuppressants or active chemotherapy Other than the above items, the remainder of a complete review of systems is otherwise negative. PHYSICAL EXAM: BP 121/69 (BP Location: Left arm, Patient Position: Sitting) Pulse 77 Temp 98.3 F (36.8 C) (Oral) Resp 16 SpO2 92% There is no height or weight on file to calculate BMI. GENERAL: Appears age appropriate. No acute distress. NEUROLOGICAL: Alert and oriented X 3. Follows commands with extremities x4. No focal neurologic deficits noted. Head: Atraumatic, normocephalic.Throat: phonation normal CARDIOVASCULAR: Regular rate and rhythm. No peripheral edema noted. RESPIRATORY: Respiratory effort unlabored without use of accessory muscles. ABDOMINAL: Rounded, mild TTP to RUQ and epigastric region, non distended. No guarding or peritoneal signs. GENITOURINARY: Normal genitalia for age without lesion or trauma. Rectal exam - defer MUSCULOSKELETAL: Extremities atraumatic without gross deformity x4. SKIN: Skin warm and dry. No rashes or lesions. IMAGING STUDIES: I have reviewed the following: CT A/P LABORATORY STUDIES: Lab Results Component Value Date WBC 15.03 (H) 10/24/2024 HGB 14.5 10/24/2024 HCT 42.1 10/24/2024 MCV 92.9 10/24/2024 PLT 342 10/24/2024 RBC 4.53 10/24/2024 Lab Results Component Value Date GLUCOSE 100 (H) 05/31/2024 CALCIUM 10.3 (H) 05/31/2024 NA 134 (L) 05/31/2024 K 3.9 05/31/2024 CL 92 (L) 05/31/2024 BUN 31 (H) 10/24/2024 CREATININE 1.05 10/24/2024 Lab Results Component Value Date ALT 36 09/18/2023 AST 20 09/18/2023 ALKPHOS 56 09/18/2023 BILITOT 0.5 09/18/2023 Cosigned by Brice Dupont MD at 10/25/2024 8:34 AM EDT documented in this encounter [facility] 10-25-2024 Progress note Formatting of t his note might be different from the original. Consult Dr Moya for compression fractures per Dr Valencia request [facility] 10-25-2024 Consult note Associated Order (s): IP CONSULT TO HOME HEALTH HUB Care Management Consult Note Date: 10/25/2024 Time: 11:00 AM Patient Name: Elizabeth Cisneros Date of : 1950 Reason for Consult: SN,PT,OT Is [facility] plan complete or pending? (List items pending) complete Name of [facility] agency: Pending / Accepted (if [facility], include region) [facility] Referrals sent to: (names of agencies) [facility] accepted Infusion pharmacy: (name) Referral pending or accepted? For OPAT, TPN, or TF: (list) Referral order placed? Has script been sent? (Yes/no) n/a [facility] (orders) created for the following services: [or waiting for ____ (i.e wound care)] SN,PT,OT Verify demographics (residential address) [address] [place] [id number] What is the primary number to reach you? [phone] (Home Phone) Who is your family physician/primary care physician? Sj Motley MD Do you have a caregiver and/or teachable caregiver (list relationship, name & phone #)? Emery Cisneros (Child) Estimated Discharge Date ([place]OLA): 10/30/24 If discharge needs change, please reach out to liaison assigned on treatment team as hub is not notified of new consults once team is following. Thank you. Discharge Plan: Discharging Transportation Plan: Assessment and Background Information: Living Arrangements: Alone Support Systems: Children, Family members Assistance Needed: none Type of Residence: Private residence Prior to Admission Home Care Services: No [facility] 10-25-2024 Consult note Associated Order (s): IP CONSULT TO CARE MANAGEMENT Care Management Consult Note Date: 10/25/2024 Time: 2:03 PM Patient Name: Elizabeth Cisneros Date of : 1950 Reason for Consult: Discharge Plan: D/C Disposition: Home Health Care Services Final D/C Agency/Destination: [facility] Plan A: Home Health Care Services Plan A : Post Acute Patient Choice 1: [facility] Discharging Transportation Plan: Discharge Plan Status: pend medical readiness Assessment and Background Information: [employer] Assessment: Face to Face with pt for initial transition planning/care coordination assessment. [employer] introduced self and role, pt voices understanding and consents to assessment. Pt is A/Ox4 and answers all questions appropriately at this time. Pt is sitting up in bed in no distress on room air. Care providers, pharmacy, and demographics verified/updated. Admitting Dx: Acute pancreatitis PCP: Tiesha Specialists: Brendon, ortho; Richko, neurosurg; Cynthia, cardio [facility]erred [facility]acy[facility] Insurance: [facility]-pt also has [facility] Prescription Benefit: yes, pt states no concerns obtaining/affording meds and is compliant with meds at home. LW/HPOA: Pt states would like to complete LW/HPOA and Blair, CME, aware. LNOK: Emery Cisneros, son Living Arrangements: Pt lives alone in 1 story 2 bedroom apt with no steps in and states is normally independent with ADL's at home. Transportation: Pt states she is basically homebound and states no concerns with transportation if needed. Pt gets groceries delivered to home. Pt states [id number] assists, if needed. DME/HHC/SNF: Pt states no need for further DME. Pt states would like [facility] SN/PT/OT set up for discharge and order to [facility] for same. Pt declines [facility] list. Pt states has been to [place] in the past. Pt has [facility] listed and she is updated on admission. Pt is retired. Pt states does not smoke cigarettes or drink ETOH. Pt states no concerns with going home at time of dc and states no further questions/concerns/needs. Advised pt to ask for CM if any further question/concerns/needs arise, voices understanding. CM to follow. Pt Goal: Home w/ HHC Plan: Home w/ HHC, pending PT/OT, clinical course Addendum 1510 [facility] accepted pt and PT/OT still pending. CM to follow. Living Arrangements: Alone Support Systems: Family members Assistance Needed: none Type of Residence: Private residence Prior to Admission Home Care Services: No Patient expects to be discharged to:: Home w/ HHC Does the patient need discharge transport arranged?: No Current Home Equipment: Cane, Adaptive equipment, Tub/Shower chair, Wheeled walker, Other (Comment) (rollator) Holistic Assessment Medication adherence problem:: No History of falls in last 6 months:: (!) Yes Family aware of the patient's advance care planning wishes:: Yes Do you have any cultural/spiritual connections or beliefs that would impact how we deliver your care?: No Chronic pain:: (!) Yes Location of chronic pain:: back, headaches Chronic pain timing:: Intermittent Limitation of routine activities due to chronic pain:: Yes [facility] 10-25-2024 Consult note Associated Order (s): IP CONSULT TO NEUROSURGERY 74 year old female admitted for abdominal complaints presents with incidental L1 and L4 superior endplate compression fractures on abdominal imaging workup not seen on MRI Lsp wo from 06/02/24, no current lumbar pain nor new neurologic deficits. She advised that she awaits cervical spine surgery with Dr. Collier and that he may consider vertebral body augmentation surgery for her previously-documented T12, L2 compression fractures. I spoke with Ms. Cisneros and showed her the images and advised her of both nonoperative and operative treatment options, their benefits and risks and reasons to return to the ED for re-evaluation. As she is asymptomatic from a back pain perspective, she advised that she would like to proceed with observation, will user her Colindres's back support and refrain from exertional activities. She asked pertinent questions and I answered those. She expressed that she understood me and is in agreement with the plan. No further acute neurosurgical intervention indicated at this time: Activity ad don with fall precautions Lsp x-rays - UPRIGHT 2 view re: reference Avoid extremes in ROM, bending, twisting, lifting>10lbs, strenuous activities; use back corset while upright and mobilizing 3. DVT prophylaxis: SCD's, Enoxaparin 4. Return to ED if new-onset back pain, weakness, groin numbness, loss of bladder/bowel control, difficulty with ambulation 5. Follow up with neurosurgery clinic in 1-2 weeks with repeat UPRIGHT Lsp x-rays before visit 6. Will sign off, reconsult PRN, thank you 74 year old female patient of Sj Motley M.D., who presented as a direct admit from [facility] ED for acute abdominal pain, nausea, vomiting and diarrhea found to have new L1 and L4 superior endplate compression fractures on CT imaging. Reports some referred upper thoracic pain, perhaps from her pancreas. No other neck/back pain. No antiplatelet/anticoagulant meds. No headaches, visual changes, fevers, chills, nausea, vomiting, weakness, numbness, tingling, or bowel/bladder control issues. 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 Watters SINUS SURGERY 12/30/2019 balloon sinuplasty - Dr. Key SKIN BIOPSY TONSILLECTOMY TRIGGER FINGER RELEASE Right 03/24/2018 RELEASE A1 TOD LEFT MIDDLE,RING, AND SMALL FINGERS WITH CORTISONE INJECTION RIGHT MIDDLE FINGER A1 TOD; Surgeon: Yonas Nguyen MD TUBAL LIGATION Family History Problem Relation Age of Onset Hypertension Father Asthma Father COPD Father Diabetes Father Hearing loss Father Heart disease Father Hyperlipidemia Father Osteoporosis Mother Hypertension Mother Arthritis Mother Cancer Mother Heart disease Mother Heart disease Maternal Grandfather Heart disease Sister Hypertension Sister Cancer Brother Asthma Brother Diabetes Brother Anesthesia problems Neg Hx Hip fracture Neg Hx Allergies Penicillin, Sulfa, Trazadone Celecoxib Levofloxacin [place] Niacin Sulfites Cephalexin Social History No smoking, EtOH, recreational substances Son: Mr. 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 LONG: Per above MUSCLES: No muscle wasting, pains, or weakness JOINTS: Per above NEURO: Per above ENDOCRINE: Per above PSYCHIATRIC: Per above HEMATOLOGIC/LYMPHATIC: Per above ALLERGIC/IMMUNOLOGIC: No seasonal allergies, hay fever, urticaria OTHER: No other significant issues reported Temp 97.4 HR 76 RR 14-18 BP 107/68 Eyes open spontaneously, AAOx4,EOMI, 3->2mm PERRLA CN 2-12 intact RAMIREZ 5/5 Sensory no deficit to pain or light touch No Glynn's, no Babinski Spines nontender WBC 10 Hb 12.5 Plt 277 Na 129 K 3.1 Bun 28 Cr 1 10/24/24 CT TspLsp wo Lower thorax: No pericardial or pleural effusion. Subpleural reticular and tree-in-bud opacities in the right greater than left lower lobes. Liver and biliary tree: No focal hepatic lesions. Gallbladder: Gallbladder appears distended. Spleen: Normal. Pancreas: There is peripancreatic stranding near the tail of the pancreas and interposed between the head of the pancreas and duodenum. Adrenal glands: Normal. Kidneys and ureters: Kidneys symmetrically enhance. No obstructive uropathy. Bilateral renal cysts. Urinary bladder: Under-distended which limits evaluation. Reproductive organs: Hysterectomy. Gastrointestinal tract: Lower esophagus and stomach are unremarkable. Mild duodenal wall thickening. There is no small bowel obstruction. The patient is status post appendectomy. There is fluid within the cecum and ascending colon. Colonic diverticulosis without evidence of diverticulitis. Peritoneal cavity: No free fluid or free air. Vasculature: Atherosclerosis. Ectasia of the infrarenal aorta up to 2.6 cm. Lymph nodes: No bulky lymphadenopathy. Abdominal wall: No acute findings. Stable area of fluid within the left ventral abdominal wall. Musculoskeletal: There are new compression fractures of T12, L1, and superior endplate of L4. The known L2 fracture is not substantially changed. The T12 fracture is approximately 40% compressed. The L1 fracture is compressed approximately 60%. The patient is status post total left hip arthroplasty. IMPRESSION: 1. New compression fractures of T12, L1, and superior endplate fracture of L4. 2. Peripancreatic stranding suggests acute pancreatitis. Small amount of stranding is also interposed between the head of the pancreas and duodenum which could represent concomitant duodenitis. 3. The gallbladder appears distended. If clinically indicated, consider right upper quadrant ultrasound. 4. Tree-in-bud opacities in the lung bases suggest an atypical infectious or inflammatory small airways disease and bronchiolitis. 5. Fluid within the cecum and ascending colon could be related to diarrheal illness. 6. Status post hysterectomy and appendectomy. 06/02/24 MRI Lso wo Conus: Terminates at L1. Spinal Cord and Cauda Equina: Normal. Epidural Hematoma: None. Alignment: Grade 1 anterolisthesis of L4 on L5. Marrow Signal and Vertebral Body Heights: Heterogenous marrow signal likely reflects osseous demineralization/fatty infiltration. Marrow edema in the recent L2 compression fracture deformity with less than 50% height loss and approximately 0.5 cm of retropulsion of the posterior L2 endplate. The remote superior endplate fracture deformity of T12 demonstrates less than 50% height loss and no retropulsion. Sacroiliac Joints: Grossly intact.. Paraspinal Soft Tissues: No acute abnormalities. Retroperitoneal Soft Tissues: No acute abnormalities. Bilateral hyperintense T2 renal cysts. Spondylotic Changes: Multilevel spondylotic changes include diffuse disc desiccation and varying degrees of intervertebral disc height loss, osteophytic ridging, and facet/ligamentum flavum hypertrophy. Multilevel Schmorl's nodes. T11-T12: Slight disc bulge and osteophytic ridging together indent the ventral thecal sac. No high-grade spinal canal or foraminal narrowing. T12-L1: No disc bulge or herniation. No high-grade spinal canal or foraminal narrowing. Mild bilateral facet hypertrophy. L1-L2: Slight disc bulge indents the ventral thecal sac. Mild spinal canal narrowing. [id number] bilateral foraminal narrowing. Mild bilateral facet/ligamentum flavum hypertrophy. L2-L3: Slight disc bulge indents the ventral thecal sac. No high-grade spinal canal narrowing. Mild bilateral foraminal narrowing. Mild bilateral facet/ligamentum flavum hypertrophy. L3-L4: Disc bulge indents the ventral thecal sac. No high-grade spinal canal narrowing. [id number] bilateral foraminal narrowing. Mild bilateral facet/ligamentum flavum hypertrophy. L4-L5: Disc bulge indents the ventral thecal sac with a component of disc unroofing. Mild spinal canal narrowing. Moderate bilateral foraminal narrowing. Moderate bilateral facet/ligamentum flavum hypertrophy. L5-S1: Slight disc bulge and osteophytic ridging together indent the ventral thecal sac. No high-grade spinal canal narrowing. Moderate bilateral foraminal narrowing. Mild bilateral facet hypertrophy. IMPRESSION: 1. Recent (acute/subacute) L2 compression fracture deformity with less than 50% height loss and approximately 0.5 cm of retropulsion. 2. Remote superior endplate deformity of T12 with less than 50% height loss and no retropulsion. 3. Multilevel spondylotic changes without high-grade spinal canal or foraminal narrowing at any lumbar level. I spent minutes on this evaluation, with >80% of time spent in direct clinical care activities and coordination of care with allied services. I spent 59 minutes on this evaluation, with >80% of time spent in direct clinical care activities and coordination of care with allied services. ; [facility] Work Phone: 10-25-2024 Progress note Formatting of t his note might be different from the original. Reviewed chartand agree with plan set forth by Dr Banks. Saw pt in her room but she stayed on the telephone. She was in no distress. Will continue to follow [facility] 10-25-2024 [facility] encounter Note Pharmacy requesting refill of pts Nucala to be sent to [facility]. [facility] 10-25-2024 Miscellaneous Notes Pharmacy requesting refill of pts Nucala to be sent to [facility]. documented in this encounter [facility] 10-25-2024 History and physical note [facility] [place] [facility] Patient Name: Elizabeth Cisneros : 1950 MR #: [id number] Admit Date: 10/24/2024 Physicians: Sj Motley MD (Family); Juanjo Mac* (Referring) Elizabeth Cisneros is a 74 y.o. female patient of Sj Motley MD with history of diabetes, anxiety, depression, history of COPD, coronary artery disease, GERD, dyslipidemia, hypertension, hypothyroidism, osteoporosis of presented to [facility] on 10/24/2024 as a direct admit from [facility] emergency department for acute abdominal pain, nausea vomiting and diarrhea Assessment and plan Acute pancreatitis Concern for gallstone Leukocytosis CT A/P with peripancreatic stranding suggesting acute pancreatitis as well as gallbladder distention. There is also a small amount of stranding superimposed between the head of the pancreas and the duodenum concerning for duodenitis. Check right upper quadrant ultrasound in a.m. Currently n.p.o. Continue IV fluid Trauma consulted Trend LFTs Acute hyponatremia Sodium on arrival to 2 ED 125 Recheck this a.m. at 125 Restart IV fluids D5 normal saline at 70 cc/h Check TSH Check serum osmolality and urine osmolality Consult nephrology Acute hypokalemia Potassium 3.4 Replace with potassium chloride New compression fracture involving T12 and L1 and superior endplate fracture of L4 Probably related to osteoporosis no history of falls No history of falls Check vitamin D3 Consult PT OT social media developer for discharge planning Residence prior to admission: house or apartment Was patient transferred from outlying hospital or ED yes -- care site [facility] emergency department Quality Measures DVT Prophylaxis: lovenox Payton Catheter: absent Medication Reconciliation: Verified Admitted with these risk variables:None. Please see assessment and plan for further details. Estimated Date of Discharge greater than 2 midnights Code Status Full Code; code status verified on 10/25/2024 with patient (capacity intact) Chief Complaint dehydration History of Present Illness Elizabeth Cisneros is a 74 y.o. female patient of Sj Motley MD with history of diabetes, anxiety, depression, history of COPD, coronary artery disease, GERD, dyslipidemia, hypertension, hypothyroidism, osteoporosis of presented to [facility] on 10/24/2024 as a direct admit from [facility] emergency department for acute abdominal pain, nausea vomiting and diarrhea. Patient complains of epigastric pain and right upper quadrant pain especially worse with food intake patient states she is unable to tolerate any food intake. Patient denies any fever or chills. On CT patient noted to have acute pancreatitis with gallbladder wall thickening. 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 GERD (gastroesophageal reflux disease) 05/20/2016 Heart murmur Hyperlipidemia Hypertension Hypothyroidism (acquired) 05/20/2016 Injury of back Mitral valve prolapse Osteoporosis 11/25/2022 Squamous cell skin cancer Trigger finger Past Surgical History Past Surgical History: Procedure Laterality Date ADENOIDECTOMY 1994 APPENDECTOMY ARTHROPLASTY HIP ROBOTIC EUGENE Left 10/21/2021 Surgeon: Jovanna Valencia MD CARPAL TUNNEL RELEASE Left CATARACT EXTRACTION W/ INTRAOCULAR LENS IMPLANT Bilateral COLON SURGERY WITH ILEOSTOMY CORE DECOMPRESSION OF LEFT FEMEROL HEAD EYE SURGERY Bilateral LASER TO EYES FOR GLAUCOMA HANDS, DUPYTRENS, TRIGGER FINGER, CARPAL TUNNEL Right HYSTERECTOMY 1990 ILEOSTOMY REVERSAL INDEX FINGER SURGERY Right MUSCLE BIOPSY ROTATOR CUFF REPAIR Left SINUS SURGERY January 2018 and nik bullosa resection - Dr. Watters SINUS SURGERY 12/30/2019 balloon sinuplasty - Dr. Key SKIN BIOPSY TONSILLECTOMY TRIGGER FINGER RELEASE Right 03/24/2018 RELEASE A1 TOD LEFT MIDDLE,RING, AND SMALL FINGERS WITH CORTISONE INJECTION RIGHT MIDDLE FINGER A1 TOD; Surgeon: Yonas Nguyen MD TUBAL LIGATION Family History Family History Problem Relation Age of Onset Hypertension Father Asthma Father COPD Father Diabetes Father Hearing loss Father Heart disease Father Hyperlipidemia Father Osteoporosis Mother Hypertension Mother Arthritis Mother Cancer Mother Heart disease Mother Heart disease Maternal Grandfather Heart disease Sister Hypertension Sister Cancer Brother Asthma Brother Diabetes Brother Anesthesia problems Neg Hx Hip fracture Neg Hx Social History Social History Tobacco Use Smoking Status Former Current packs/day: 0.00 Average packs/day: 1.5 packs/day for 42.1 years (63.1 ttl pk-yrs) Types: Cigarettes Start date: 1979 Quit date: 09/17/2021 Years since quittin.1 Passive exposure: Past Smokeless Tobacco Never Tobacco Comments Cigarettes Social History Substance and Sexual Activity Alcohol Use No Social History Substance and Sexual Activity Drug Use No Allergy Information I have reviewed the patient's allergies. Penicillin g, Sulfa (sulfonamide antibiotics), Trazodone, Celecoxib, Levofloxacin, [place], Niacin, Sulfites, and Cephalexin Home Medications Home medications were reviewed. Review Of Systems All relevant systems have been reviewed and are negative except as noted in HPI or below Physical Examination BP 121/69 (BP Location: Left arm, Patient Position: Sitting) Pulse 77 Temp 98.3 F (36.8 C) (Oral) Resp 16 SpO2 92% General Appearance: alert; well appearing; in no acute distress HEENT: Head- normocephalic; Eyes- EOMI, sclera anicteric; Throat- mucous membranes moist Cardiovascular: regular rate and rhythm; normal S1, S2; no murmurs, rubs, clicks or gallops; peripheral edema absent Respiratory: lungs clear to auscultation; without wheezes, rales or rhonchi; on room air Abdomen: soft, tenderness present to palpation of the right upper quadrant pain in epigastric region, distended Neurological: oriented x 3; normal speech; no focal findings or movement disorder noted Musculoskeletal: no significant deformity or tenderness to palpation Skin: normal coloration Psych: normal mood and affect [facility] 10-25-2024 History and physical note [facility] [place] [facility] Patient Name: Elizabeth Cisneros : 1950 MR #: [id number] Admit Date: 10/24/2024 Physicians: Sj Motley MD (Family); Juanjo Mac* (Referring) Elizabeth Cisneros is a 74 y.o. female patient of Sj Motley MD with history of diabetes, anxiety, depression, history of COPD, coronary artery disease, GERD, dyslipidemia, hypertension, hypothyroidism, osteoporosis of presented to [facility] on 10/24/2024 as a direct admit from [facility] emergency department for acute abdominal pain, nausea vomiting and diarrhea Assessment and plan Acute pancreatitis Concern for gallstone Leukocytosis CT A/P with peripancreatic stranding suggesting acute pancreatitis as well as gallbladder distention. There is also a small amount of stranding superimposed between the head of the pancreas and the duodenum concerning for duodenitis. Check right upper quadrant ultrasound in a.m. Currently n.p.o. Continue IV fluid Trauma consulted Trend LFTs Acute hyponatremia Sodium on arrival to 2 ED 125 Recheck this a.m. at 125 Restart IV fluids D5 normal saline at 70 cc/h Check TSH Check serum osmolality and urine osmolality Consult nephrology Acute hypokalemia Potassium 3.4 Replace with potassium chloride New compression fracture involving T12 and L1 and superior endplate fracture of L4 Probably related to osteoporosis no history of falls No history of falls Check vitamin D3 Consult PT OT social media developer for discharge planning Residence prior to admission: house or apartment Was patient transferred from outlying hospital or ED yes -- care site [facility] emergency department Quality Measures DVT Prophylaxis: lovenox Pay[place] Catheter: absent Medication Reconciliation: Verified Admitted with these risk variables:None. Please see assessment and plan for further details. Estimated Date of Discharge greater than 2 midnights Code Status Full Code; code status verified on 10/25/2024 with patient (capacity intact) Chief Complaint dehydration History of Present Illness Elizabeth Cisneros is a 74 y.o. female patient of Sj Motley MD with history of diabetes, anxiety, depression, history of COPD, coronary artery disease, GERD, dyslipidemia, hypertension, hypothyroidism, osteoporosis of presented to [facility] on 10/24/2024 as a direct admit from [facility] emergency department for acute abdominal pain, nausea vomiting and diarrhea. Patient complains of epigastric pain and right upper quadrant pain especially worse with food intake patient states she is unable to tolerate any food intake. Patient denies any fever or chills. On CT patient noted to have acute pancreatitis with gallbladder wall thickening. 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 GERD (gastroesophageal reflux disease) 05/20/2016 Heart murmur Hyperlipidemia Hypertension Hypothyroidism (acquired) 05/20/2016 Injury of back Mitral valve prolapse Osteoporosis 11/25/2022 Squamous cell skin cancer Trigger finger Past Surgical History Past Surgical History: Procedure Laterality Date ADENOIDECTOMY 1994 APPENDECTOMY ARTHROPLASTY HIP ROBOTIC EUGENE Left 10/21/2021 Surgeon: Jovanna Valencia MD CARPAL TUNNEL RELEASE Left CATARACT EXTRACTION W/ INTRAOCULAR LENS IMPLANT Bilateral COLON SURGERY WITH ILEOSTOMY CORE DECOMPRESSION OF LEFT FEMEROL HEAD EYE SURGERY Bilateral LASER TO EYES FOR GLAUCOMA HANDS, DUPYTRENS, TRIGGER FINGER, CARPAL TUNNEL Right HYSTERECTOMY 1990 ILEOSTOMY REVERSAL INDEX FINGER SURGERY Right MUSCLE BIOPSY ROTATOR CUFF REPAIR Left SINUS SURGERY January 2018 and nik bullosa resection - Dr. Watters SINUS SURGERY 12/30/2019 balloon sinuplasty - Dr. Key SKIN BIOPSY TONSILLECTOMY TRIGGER FINGER RELEASE Right 03/24/2018 RELEASE A1 TOD LEFT MIDDLE,RING, AND SMALL FINGERS WITH CORTISONE INJECTION RIGHT MIDDLE FINGER A1 TOD; Surgeon: Yonas Nguyen MD TUBAL LIGATION Family History Family History Problem Relation Age of Onset Hypertension Father Asthma Father COPD Father Diabetes Father Hearing loss Father Heart disease Father Hyperlipidemia Father Osteoporosis Mother Hypertension Mother Arthritis Mother Cancer Mother Heart disease Mother Heart disease Maternal Grandfather Heart disease Sister Hypertension Sister Cancer Brother Asthma Brother Diabetes Brother Anesthesia problems Neg Hx Hip fracture Neg Hx Social History Social History Tobacco Use Smoking Status Former Current packs/day: 0.00 Average packs/day: 1.5 packs/day for 42.1 years (63.1 ttl pk-yrs) Types: Cigarettes Start date: 1979 Quit date: 09/17/2021 Years since quittin.1 Passive exposure: Past Smokeless Tobacco Never Tobacco Comments Cigarettes Social History Substance and Sexual Activity Alcohol Use No Social History Substance and Sexual Activity Drug Use No Allergy Information I have reviewed the patient's allergies. Penicillin g, Sulfa (sulfonamide antibiotics), Trazodone, Celecoxib, Levofloxacin, [place], Niacin, Sulfites, and Cephalexin Home Medications Home medications were reviewed. Review Of Systems All relevant systems have been reviewed and are negative except as noted in HPI or below Physical Examination BP 121/69 (BP Location: Left arm, Patient Position: Sitting) Pulse 77 Temp 98.3 F (36.8 C) (Oral) Resp 16 SpO2 92% General Appearance: alert; well appearing; in no acute distress HEENT: Head- normocephalic; Eyes- EOMI, sclera anicteric; Throat- mucous membranes moist Cardiovascular: regular rate and rhythm; normal S1, S2; no murmurs, rubs, clicks or gallops; peripheral edema absent Respiratory: lungs clear to auscultation; without wheezes, rales or rhonchi; on room air Abdomen: soft, tenderness present to palpation of the right upper quadrant pain in epigastric region, distended Neurological: oriented x 3; normal speech; no focal findings or movement disorder noted Musculoskeletal: no significant deformity or tenderness to palpation Skin: normal coloration Psych: normal mood and affect documented in this encounter [facility] 10-25-2024 Plan of care note Problem: Falls, Risk of Goal: Absence of falls Outcome: Partially Met Goal: Absence of physical injury Outcome: Partially Met Problem: Pain Goal: Reduced pain sensation Outcome: Partially Met Goal: Control of acute pain to acceptable level Outcome: Partially Met Goal: Able to cope with pain Outcome: Partially Met Goal: Able to achieve maximum level of physical functioning Outcome: Partially Met Goal: Able to achieve maximum level of psychosocial functioning Outcome: Partially Met Problem: Pressure Injury, Risk of Goal: Absence of pressure injury Outcome: Partially Met Problem: Actual or potential alteration in health Goal: Absence of healthcare acquired conditions Outcome: Partially Met Goal: Knowledge of Interdisciplinary Plan of Care Outcome: Partially Met Goal: Knowledge of Enviroment Outcome: Partially Met [facility] 10-24-2024 Consult note Formatting of th is note is different from the original. [facility] SURGICAL HISTORY & PHYSICAL/CONSULTATION NOTE ======ASSESSMENT & PLAN/ACTIVE MEDICAL PROBLEMS: Concern for gallstone pancreatitis CT A/P with peripancreatic stranding suggesting acute pancreatitis as well as gallbladder distention. There is also a small amount of stranding superimposed between the head of the pancreas and the duodenum concerning for duodenitis. WBC 15, T. bili 1.4, ALT 25, AST 44. afebrile NPO, IVF Obtain RUQ ultrasound Trend LFTs Recommend medical treatment of pancreatitis and electrolyte abnormalities Final surgical plan to follow. CHIEF COMPLAINT: Dehydration. HISTORY OF PRESENT ILLNESS / INJURY (HPI): Elizabeth is a 74 year old female with the below medical history who presented to [facility] ED with a chief complaint of generalized epigastric and RUQ abdominal pain and inability to tolerate PO intake. CT was concerning for pancreatitis with gallbladder wall thickening, she was transferred for medical admission, management of electrolyte abnormalities and pancreatitis and surgical consultation. The patient tells me that she had just finished up a 7 days course of doxycycline for pneumonia treatment when her 5 day history of epigastric and RUQ abdominal began. She has been unable to hold down sips of water and has only had a slice of toast in the last several days. She denies any associated fevers or chills. 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 Watters SINUS SURGERY 12/30/2019 balloon sinuplasty - Dr. Key SKIN BIOPSY TONSILLECTOMY TRIGGER FINGER RELEASE Right 03/24/2018 RELEASE A1 TOD LEFT MIDDLE,RING, AND SMALL FINGERS WITH CORTISONE INJECTION RIGHT MIDDLE FINGER A1 TOD; Surgeon: Yonas Nguyen MD TUBAL LIGATION Social History Tobacco Use Smoking status: Former Current packs/day: 0.00 Average packs/day: 1.5 packs/day for 42.1 years (63.1 ttl pk-yrs) Types: Cigarettes Start date: 1979 Quit date: 09/17/2021 Years since quittin.1 Passive exposure: Past Smokeless tobacco: Never Tobacco comments: Cigarettes Vaping Use Vaping status: Never Used Substance Use Topics Alcohol use: No Drug use: No Family History Problem Relation Age of Onset Hypertension Father Asthma Father COPD Father Diabetes Father Hearing loss Father Heart disease Father Hyperlipidemia Father Osteoporosis Mother Hypertension Mother Arthritis Mother Cancer Mother Heart disease Mother Heart disease Maternal Grandfather Heart disease Sister Hypertension Sister Cancer Brother Asthma Brother Diabetes Brother Anesthesia problems Neg Hx Hip fracture Neg Hx MEDICATIONS: Current Facility-Administered Medications on File Prior to Encounter Medication Dose Route Frequency Provider Last Rate Last Admin [COMPLETED] iopamidoL (ISOVUE-370) 370 mg iodine /mL (76 %) injection 75 mL 75 mL Intravenous Once in imaging Juanjo Mac MD 75 mL at 10/24/24 1729 [COMPLETED] morphine injection 4 mg 4 mg Intravenous Once Juanjo Mac MD 4 mg at 10/24/24 170 [COMPLETED] ondansetron (ZOFRAN) injection 4 mg 4 mg Intravenous Once Juanjo Mac MD 4 mg at 10/24/24 170 [COMPLETED] sodium chloride (PF) (NS) 0.9 % contrast line flush 10 mL 10 mL Intravenous Once in imaging Juanjo Mac MD 10 mL at 10/24/24 173 And [COMPLETED] sodium chloride (PF) (NS) 0.9 % contrast line flush 80 mL 80 mL Intravenous Once in imaging Juanjo Mac MD 80 mL at 10/24/24 173 [COMPLETED] sodium chloride 0.9% (NS) bolus 1,000 mL 1,000 mL Intravenous Once Juanjo Mac MD Stopped at 10/24/242131 [DISCONTINUED] sodium chloride (PF) (NS) flush 5 mL 5 mL Intravenous PRN Juanjo Mac MD [DISCONTINUED] sodium chloride 0.9% (NS) 0-150 mL/hr Intravenous PRN Juanjo Mac MD Current Outpatient Medications on File Prior to Encounter Medication Sig Dispense Refill acetaminophen (TYLENOL) 500 MG tablet Take 1 (one) tablet (500 mg total) by mouth every 6 (six) hours as needed for pain THREE TIMES DAILY . albuterol (PROVENTIL) 2.5 mg /3 mL (0.083 %) nebulizer solution Take 3 mL (2.5 mg total) by nebulization every 6 (six) hours as needed for wheezing . 360 mL 12 albuterol (PROVENTIL) 2.5 mg /3 mL (0.083 %) nebulizer solution Take 3 mL (2.5 mg total) by nebulization every 6 (six) hours as needed for wheezing . 75 mL 0 albuterol 90 mcg/actuation inhaler Inhale 1 (one) puff to 2 (two) puffs every 4 to 6 hours as needed . atenoloL (TENORMIN) 50 MG tablet Take 1 (one) tablet (50 mg total) by mouth 2 (two) times a day . 120 tablet 0 [place] Saline Gel Apply topically 2 (two) times a day Apply a pea sized amount to both nostrils at bedtime and in a.m. You can use it more often.. 14.1 g 12 Bevespi Aerosphere 9-4.8 mcg HFAA Inhale 2 puffs 2 (two) times a day . 10.7 g 11 budesonide (PULMICORT) 0.5 mg/2 mL nebulizer solution Take 2 mL (0.5 mg total) by nebulization 2 (two) times a day . 60 mL 11 CALCITRATE 200 mg (950 mg) tablet Take 200 mg by mouth 3 (three) times a day . 0 desvenlafaxine succinate (PRISTIQ) 100 MG 24 hr tablet Take 1 (one) tablet (100 mg total) by mouth daily . 30 tablet 2 diclofenac sodium 1% (VOLTAREN) 1 % Gel Apply topically 4 (four) times a day as needed for pain . 450 g 2 [] doxycycline hyclate (VIBRA-TABS) 100 MG tablet Take 1 (one) tablet (100 mg total) by mouth 2 (two) times a day for 10 days . 20 tablet 0 fexofenadine (LASHA) 180 MG tablet Take 1 (one) tablet (180 mg total) by mouth daily . Fish OiL 1,200 (144-216) mg cap Take 1 capsule by mouth 3 (three) times a day . fluticasone propionate (FLONASE) 50 mcg/actuation nasal spray Instill 2 (two) sprays into each nostril 2 (two) times a day . 18.2 mL 3 folic acid (FOLVITE) 1 MG tablet Take 1 (one) tablet (1 mg total) by mouth daily . furosemide (LASIX) 20 MG tablet Take 1 (one) tablet (20 mg total) by mouth daily . 90 tablet 1 guaiFENesin (MUCINEX) 600 mg 12 hr tablet Take 2 (two) tablets (1,200 mg total) by mouth 2 (two) times a day . ketoconazole (NIZORAL) 2 % cream Apply topically daily to feet . ketorolac (TORADOL) 10 mg tablet Take 1 (one) tablet (10 mg total) by mouth every 6 (six) hours as needed . 12 tablet 0 lansoprazole (PREVACID) 30 MG capsule Take 1 capsule by mouth every morning before breakfast on an empty stomach. . 90 capsule 3 levothyroxine (SYNTHROID, LEVOTHROID) 75 MCG tablet Take 1 (one) tablet (75 mcg total) by mouth every morning DOS . 90 tablet 1 magnesium glycinate 100 mg Tab Take 2.5 (two and a half) tablets (250 mg total) by mouth 2 (two) times a day . magnesium oxide (MAG-OX) 400 mg tablet Take 2.5 (two and a half) tablets (1,000 mg total) by mouth nightly . metaxalone (SKELAXIN) 800 MG tablet Take 1 (one) tablet (800 mg total) by mouth 3 (three) times a day as needed for muscle spasms . 90 tablet 1 metroNIDAZOLE (METROGEL) 1 % gel Apply once daily to entire face mirtazapine (REMERON) 45 MG tablet Take 1 (one) tablet (45 mg total) by mouth nightly . 30 tablet 2 montelukast (SINGULAIR) 10 mg tablet Take 1 (one) tablet (10 mg total) by mouth nightly . 30 tablet 11 mupirocin (BACTROBAN) 2 % ointment Apply topically 2 (two) times a day . 22 g 0 Nucala 100 mg/mL AtIn Inject 1 mL (100 mg total) under the skin every 28 days . 3 mL 11 oxyCODONE-acetaminophen (PERCOCET) 5-325 mg per tablet Take 1 (one) tablet by mouth daily as needed for pain . 30 tablet 0 Prolia 60 mg/mL Syrg Inject 60 (sixty) mg under the skin once for 1 dose. Therems-M 9 mg iron-400 mcg Tab Take 1 (one) tablet by mouth daily . ubrogepant (Ubrelvy) 100 mg Tab Take 1 (one) tablet (100 mg total) by mouth at bedtime as needed (migraines) . 10 tablet 3 VITAMIN D3 2,000 unit cap Take 1 (one) capsule by mouth 2 (two) times a day . 0 zinc gluconate 50 mg tablet Take 1 (one) tablet (50 mg total) by mouth daily . ALLERGIES: Allergies Allergen Reactions Penicillin G Hives, Shortness Of Breath and Swelling Sulfa (Sulfonamide Antibiotics) Hives, Shortness Of Breath and Swelling Trazodone Hives and Shortness Of Breath Celecoxib Hives Difficulty breathing, swelling Levofloxacin GI Intolerance Nausea and vomiting. [place] Diarrhea Other reaction(s): Vomiting Niacin Unknown Sulfites Cephalexin Rash REVIEW OF SYSTEMS: COVID19 Screen: Negative for fever, cough, SOB, exposure. Constitutional Symptoms: Negative for unexplained falls, weight loss Eyes: Negative for eye pain or vision changes Ears, Nose, Mouth, Throat: Negative for rhinorrhea, nasal pain, dysphagia, hoarseness Cardiovascular: Negative for chest pain, orthopnea, edema Respiratory: Negative for cough, shortness of breath Gastrointestinal: +abdominal pain, nausea, vomiting Genitourinary: Negative for dysuria, hematuria Musculoskeletal: Negative for pain, joint edema Skin/Breast: Negative for rash, itching, lesions Neurological: Negative for paresthesia, paralysis, loss of bowel or bladder control, loss of consciousness Psychiatric: Negative for depression, anxiety, or suicidal ideations Endocrine: Negative for heat/cold intolerance, polydipsia, polyphagia, polyuria Hematologic/Lymphatic: Negative for anticoagulant use, antiplatelet use, family hx of clotting or bleeding disorders Allergic/Immunologic: Allergies reviewed, no use of immunosuppressants or active chemotherapy Other than the above items, the remainder of a complete review of systems is otherwise negative. PHYSICAL EXAM: BP 121/69 (BP Location: Left arm, Patient Position: Sitting) Pulse 77 Temp 98.3 F (36.8 C) (Oral) Resp 16 SpO2 92% There is no height or weight on file to calculate BMI. GENERAL: Appears age appropriate. No acute distress. NEUROLOGICAL: Alert and oriented X 3. Follows commands with extremities x4. No focal neurologic deficits noted. Head: Atraumatic, normocephalic.Throat: phonation normal CARDIOVASCULAR: Regular rate and rhythm. No peripheral edema noted. RESPIRATORY: Respiratory effort unlabored without use of accessory muscles. ABDOMINAL: Rounded, mild TTP to RUQ and epigastric region, non distended. No guarding or peritoneal signs. GENITOURINARY: Normal genitalia for age without lesion or trauma. Rectal exam - defer MUSCULOSKELETAL: Extremities atraumatic without gross deformity x4. SKIN: Skin warm and dry. No rashes or lesions. IMAGING STUDIES: I have reviewed the following: CT A/P LABORATORY STUDIES: Lab Results Component Value Date WBC 15.03 (H) 10/24/2024 HGB 14.5 10/24/2024 HCT 42.1 10/24/2024 MCV 92.9 10/24/2024 PLT 342 10/24/2024 RBC 4.53 10/24/2024 Lab Results Component Value Date GLUCOSE 100 (H) 05/31/2024 CALCIUM 10.3 (H) 05/31/2024 NA 134 (L) 05/31/2024 K 3.9 05/31/2024 CL 92 (L) 05/31/2024 BUN 31 (H) 10/24/2024 CREATININE 1.05 10/24/2024 Lab Results Component Value Date ALT 36 09/18/2023 AST 20 09/18/2023 ALKPHOS 56 09/18/2023 BILITOT 0.5 09/18/2023 Cosigned by Brice Dupont MD at 10/25/2024 8:34 AM EDT [employer] Work Phone: 10-17-2024 History of Present illness Narrative CALLED PATIENT LMOM OFFERING APPT LEFT OFFICE NUMBER TO CALL BACK TO SCHEDULE See if patient can come at 9 AM tomorrow Patient is still coughing and short of breath. She does notice some improvement from yesterday. She has a difficult time talking. Patient states she can't get into her PCP for months. She is considering finding a new provider. Patient has a complaint about a nurse in the ED from her last visit. Patient provided with the number for Customer Experience [phone]. She uses [employer] for her groceries. She is using her nebulizer treatments. She is trying to conserve her energy. She uses a recliner most of the time. She occasionally gets up and walks around. She occasionally checks her BS. She has been drinking kevin tommie and fruit juice. Discussed sugar content of juice. Patient is also taking a steroid. Discussed signs of hyperglycemia. Patient agrees to RNCM follow up. 10/14/24 1442 RJ General Info Assessment completed with: Patient Post-Discharge Call: Medications Is the patient taking all medications as directed (includes completed medication regime)? Yes Nursing Interventions Nurse provided patient education Medications reviewed with patient/caregiver? Yes Is the patient having any side effects they believe may be caused by any medication additions or changes? No Does the patient have all medications ordered at discharge? No Nursing Interventions Nurse provided patient education;Notified provider Prescription Comments Patient did not receive the albuterol rescue inhaler she received a 2nd rx for albuterol solution. Appointments Does the patient have a primary care provider? Yes Does the patient have a follow up appointment scheduled related to this admission? No Nursing Interventions Educated patient on importance of making appointment Self Management Was Home Health ordered? No Was Durable Medical Equipment (DME) ordered? No Are there psychosocial issues? No Patient Teaching Did the patient receive a copy of their discharge instructions? Yes What is the patient's perception of their health status since discharge? Improving Provided education for complications or exacerbations and when to seek emergent/urgent care? Yes;Patient verbalized understanding Is the patient/cargiver able to teach back the hierarchy of who to call/visit for symptoms/problems? (PCP, Specialist, Home Health Nurse, Urgent Care, ED, 911) Yes Additional Teach Back Comments -- Did the patient feel the follow up calls were helpful during their recovery period? Yes 74-year-old female patient presents ER for shortness of breath cough. Patient has history of COPD. States over the last 3 days his symptoms. No fevers nausea or emesis. Future Appointments Date Time Provider Department Center 10/20/2024 10:00 AM [facility], NURSE [facility] 10/26/2024 1:00 PM Dennis Woodall MD [facility] NRO GLSN 10/31/2024 2:00 PM Day, Zhao Barbosa MD [facility]/07/2024 12:30 PM Miriam Cerna, FERNANDO [facility] PSY BLG [facility] 03/13/2025 2:20 PM Sj Motley MD [facility] PCPOHWAY [facility] documented in this encounter [facility] 10-16-2024 Note See if patient can c ome at 9 AM tomorrow AUTHENTICATED BY SJ MOTLEY, ON 10/16/2024 21:56:02 [facility] 10-16-2024 History of Present illness Narrative See if patient can come at 9 AM tomorrow Patient is still coughing and short of breath. She does notice some improvement from yesterday. She has a difficult time talking. Patient states she can't get into her PCP for months. She is considering finding a new provider. Patient has a complaint about a nurse in the ED from her last visit. Patient provided with the number for Customer Experience [phone]. She uses [employer] home delivery for her groceries. She is using her nebulizer treatments. She is trying to conserve her energy. She uses a recliner most of the time. She occasionally gets up and walks around. She occasionally checks her BS. She has been drinking kevin tommie and fruit juice. Discussed sugar content of juice. Patient is also taking a steroid. Discussed signs of hyperglycemia. Patient agrees to RNCM follow up. 10/14/24 1442 RJ General Info Assessment completed with: Patient Post-Discharge Call: Medications Is the patient taking all medications as directed (includes completed medication regime)? Yes Nursing Interventions Nurse provided patient education Medications reviewed with patient/caregiver? Yes Is the patient having any side effects they believe may be caused by any medication additions or changes? No Does the patient have all medications ordered at discharge? No Nursing Interventions Nurse provided patient education;Notified provider Prescription Comments Patient did not receive the albuterol rescue inhaler she received a 2nd rx for albuterol solution. Appointments Does the patient have a primary care provider? Yes Does the patient have a follow up appointment scheduled related to this admission? No Nursing Interventions Educated patient on importance of making appointment Self Management Was Home Health ordered? No Was Durable Medical Equipment (DME) ordered? No Are there psychosocial issues? No Patient Teaching Did the patient receive a copy of their discharge instructions? Yes What is the patient's perception of their health status since discharge? Improving Provided education for complications or exacerbations and when to seek emergent/urgent care? Yes;Patient verbalized understanding Is the patient/cargiver able to teach back the hierarchy of who to call/visit for symptoms/problems? (PCP, Specialist, Home Health Nurse, Urgent Care, ED, 911) Yes Additional Teach Back Comments -- Did the patient feel the follow up calls were helpful during their recovery period? Yes 74-year-old female patient presents ER for shortness of breath cough. Patient has history of COPD. States over the last 3 days his symptoms. No fevers nausea or emesis. Future Appointments Date Time Provider Department Center 10/20/2024 10:00 AM ADRIAN EUBANKS, NURSE ADRIAN EUBANKS 10/26/2024 1:00 PM Dennis Woodall MD [facility] NRO GLSLeeann 10/31/2024 2:00 PM Day, Zhao Barbosa MD [facility] [place]/07/2024 12:30 PM Miriam Cerna, FERNANDO [facility] PSY BLG [facility] 03/13/2025 2:20 PM Sj Motley MD [facility] PCPOHWAY [facility] documented in this encounter [facility] 09-27-2024 Telephone encounter Note Script sent for pts albuterol neb was only for a 5 day supply. Pharmacist asked that the dispense quantity be changed to 120 each or 360 mL. Pt uses [facility] in [place]. [facility] 09-27-2024 Miscellaneous Notes Script sent for pts albuterol neb was only for a 5 day supply. Pharmacist asked that the dispense quantity be changed to 120 each or 360 mL. Pt uses [facility] in [place]. documented in this encounter [facility] 09-27-2024 Telephone encounter Note Pharmacy requesting refills of pts alb neb to be sent to [facility] in [place]. Pt saw Dr. Mckeon 08/2023, a recall letter has been sent, but no f/u at this time. Is this something you can assist with? [facility] 09-27-2024 Miscellaneous Notes Pharmacy requesting refills of pts alb neb to be sent to [facility] in [place]. Pt saw Dr. Mckeon 08/2023, a recall letter has been sent, but no f/u at this time. Is this something you can assist with? documented in this encounter [facility] 09-16-2024 Note Chief Complaint Patient presents with Follow-up F/U SPINAL STENOSIS Patient states finger tips are numb.Patient stated she could not sleep due to her back pain. Cervical stenosis HPI Elizabeth Cisneros is [id number] female status post fall at a chiropractor's office in May 2024, with right subarachnoid hemorrhage over the frontal cerebral convexity, without evidence of extension on interval scan who also has T12 and L2 chronic compression fractures, and a C4-C5 anterolisthesis and multifocal degenerative disease of the cervical spine and at least moderate stenosis at the C4-C5 level with pain with movement of the cervical spine. MRI cervical spine 06/01/2024 demonstrates severe canal stenosis at C3-4 from disc osteophyte and a napkin ring type stenosis and moderate severe stenosis at C4-C5. There is arguably increased STIR signal posterior to the C4 level. There is also a reversal of normal lordosis with kyphosis centered at C5-6-7. She has extreme difficulties with ambulation and balance issues. She almost fell backwards last night but caught herself on the wall. She also has significant pain in the axial cervical spine. She also has pain at the thoracolumbar junction that radiates to the bilateral superior hip areas. She also complains of numbness of all the fingers of both hands and very poor dexterity of her fingers. She has known severe osteoporosis. Past medical history seen for COPD. GE reflux disease. Coronary artery disease. Migraine. Paroxysmal atrial fibrillation. Diabetes mellitus. Status post hip replacement. Osteoporosis. Hypothyroidism. Medication viewed the MAR. Allergies reviewed in MAR. Review of Systems Comprehensive review of systems was obtained, pertinent positives are noted. The patient is having difficulty with dropping objects. She denies any recent colds or upper respite tract infection. She denies any current chest pain or dyspnea. She does complain severely of the axial thoracolumbar pain that radiates into the bilateral hip areas. She has had avascular necrosis in her bone. Family history negative for known metabolic bone disease. Psychosocial review. The patient lives alone. She is retired. Physical Exam Awake alert pleasant female nondistressed secondary to cervical pain and lumbar pain. She has a grossly ataxic lurching gait. Romberg sign is positive. She does have some tremors and myoclonic type jerking of the bilateral upper extremities and lesser extent lower extremities. She is numb to light touch from the wrist in a stocking glove fashion into the fingers. She is also numb in the legs from the ankles distally into the feet. No calf swelling or tenderness. She is diffusely weak in the legs at 4- out of 5 at iliopsoas good across of hamstrings and dorsi plantarflex the feet. There is no ankle clonus. There is mild pronator drift bilaterally. Deep tendon reflex the biceps and patella are 3+. Abdon sign is negative. Carotid pulses 2+ with 3 and equal. No carotid bruits. Lungs are clear to auscultation. No due to venous distention. No wheezing. She has diffuse tenderness palpation posterior cervical area especially occipital cervical junction. Impression Cervical myelopathy profound with a setting of kyphosis across C5-C7 as well as osteoporosis. L2 compression fracture and lumbar spondylosis and stenosis likely the cause of her thoracic or lumbar axial pain. Plan I have discussed with her the ramifications of cervical myelopathy and the fact that this is likely to get her in the greatest degree of difficulties and disability as she ages. I discussed with her the option of surgical decompression which is complicated by her kyphotic deformity which also needs to be addressed, also complicated by the osteoporosis. She understands the risks of any surgical procedure any stroke DVT pulmonology myocardial infarction instrumentation failure no improvement, need for blood transfusion all transfusion later reaction potential transmissible infectious diseases, infection that could require revision surgery, instrumentation failure due to osteoporosis that could require revision surgery, epidural hematoma, no improvement, further neurologic decline either temporary or permanent, and she wished to proceed with surgical intervention. Of told her that her lumbar issues could be addressed at a later time as a second stage procedure and they are not as priority as the cervical. She will require weeks of inpatient rehabilitation. I have also discussed with her could take up to 6 months to a year to realize the full benefit of the surgical intervention. I also ordered EMG nerve conduction study bilateral extremities as I do suspect she has peripheral neuropathy as an additional issue. She understands these risks and wished to proceed with cervical correction. At this point time would recommend a C3-C7 decompressive laminectomy C3 4567 T (more content not included)... [facility] 09-16-2024 History of Present illness Narrative Chief Complaint Patient presents with Follow-up F/U SPINAL STENOSIS Patient states finger tips are numb.Patient stated she could not sleep due to her back pain. Cervical stenosis HPI Elizabeth Cisneros is [id number] female status post fall at a chiropractor's office in May 2024, with right subarachnoid hemorrhage over the frontal cerebral convexity, without evidence of extension on interval scan who also has T12 and L2 chronic compression fractures, and a C4-C5 anterolisthesis and multifocal degenerative disease of the cervical spine and at least moderate stenosis at the C4-C5 level with pain with movement of the cervical spine. MRI cervical spine 06/01/2024 demonstrates severe canal stenosis at C3-4 from disc osteophyte and a napkin ring type stenosis and moderate severe stenosis at C4-C5. There is arguably increased STIR signal posterior to the C4 level. There is also a reversal of normal lordosis with kyphosis centered at C5-6-7. She has extreme difficulties with ambulation and balance issues. She almost fell backwards last night but caught herself on the wall. She also has significant pain in the axial cervical spine. She also has pain at the thoracolumbar junction that radiates to the bilateral superior hip areas. She also complains of numbness of all the fingers of both hands and very poor dexterity of her fingers. She has known severe osteoporosis. Past medical history seen for COPD. GE reflux disease. Coronary artery disease. Migraine. Paroxysmal atrial fibrillation. Diabetes mellitus. Status post hip replacement. Osteoporosis. Hypothyroidism. Medication viewed the MAR. Allergies reviewed in MAR. Review of Systems Comprehensive review of systems was obtained, pertinent positives are noted. The patient is having difficulty with dropping objects. She denies any recent colds or upper respite tract infection. She denies any current chest pain or dyspnea. She does complain severely of the axial thoracolumbar pain that radiates into the bilateral hip areas. She has had avascular necrosis in her bone. Family history negative for known metabolic bone disease. Psychosocial review. The patient lives alone. She is retired. Physical Exam Awake alert pleasant female nondistressed secondary to cervical pain and lumbar pain. She has a grossly ataxic lurching gait. Romberg sign is positive. She does have some tremors and myoclonic type jerking of the bilateral upper extremities and lesser extent lower extremities. She is numb to light touch from the wrist in a stocking glove fashion into the fingers. She is also numb in the legs from the ankles distally into the feet. No calf swelling or tenderness. She is diffusely weak in the legs at 4- out of 5 at iliopsoas good across of hamstrings and dorsi plantarflex the feet. There is no ankle clonus. There is mild pronator drift bilaterally. Deep tendon reflex the biceps and patella are 3+. Abdon sign is negative. Carotid pulses 2+ with 3 and equal. No carotid bruits. Lungs are clear to auscultation. No due to venous distention. No wheezing. She has diffuse tenderness palpation posterior cervical area especially occipital cervical junction. Impression Cervical myelopathy profound with a setting of kyphosis across C5-C7 as well as osteoporosis. L2 compression fracture and lumbar spondylosis and stenosis likely the cause of her thoracic or lumbar axial pain. Plan I have discussed with her the ramifications of cervical myelopathy and the fact that this is likely to get her in the greatest degree of difficulties and disability as she ages. I discussed with her the option of surgical decompression which is complicated by her kyphotic deformity which also needs to be addressed, also complicated by the osteoporosis. She understands the risks of any surgical procedure any stroke DVT pulmonology myocardial infarction instrumentation failure no improvement, need for blood transfusion all transfusion later reaction potential transmissible infectious diseases, infection that could require revision surgery, instrumentation failure due to osteoporosis that could require revision surgery, epidural hematoma, no improvement, further neurologic decline either temporary or permanent, and she wished to proceed with surgical intervention. Of told her that her lumbar issues could be addressed at a later time as a second stage procedure and they are not as priority as the cervical. She will require weeks of inpatient rehabilitation. I have also discussed with her could take up to 6 months to a year to realize the full benefit of the surgical intervention. I also ordered EMG nerve conduction study bilateral extremities as I do suspect she has peripheral neuropathy as an additional issue. She understands these risks and wished to proceed with cervical correction. At this point time would recommend a C3-C7 decompressive laminectomy C3 4567 T1-T2-T3-T4 posterior instrumented fusion and posterior lateral instrumentation. Consideration of use of infuse will also be potentially beneficial due to her known osteoporosis. She will acquire cardiac clearance. Luis Eduardo Collier MD documented in this encounter [facility] 08-29-2024 Telephone encounter Note Last OV 06/14/24 Next OV 10/13/24 [facility] 08-29-2024 Miscellaneous Notes Last OV 06/14/24 Next OV 10/13/24 documented in this encounter [facility] 08-29-2024 Telephone encounter Note Last OV 06/14/24 Next OV 10/13/24 [facility] 08-29-2024 Miscellaneous Notes Last OV 06/14/24 Next OV 10/13/24 documented in this encounter [facility] 07-21-2024 Telephone encounter Note Last OV 06/14/24. Next OV 10/13/24. [facility] 07-21-2024 Miscellaneous Notes Last OV 06/14/24. Next OV 10/13/24. documented in this encounter [facility] 07-13-2024 Note Behavioral Health Ou tpatient Progress Note Patient Name: Elizabeth Cisneros MR #: [id number] : 1950 Chief Complaint: Medication and symptom review/management Interval History: 07/13/2024 Patient presents for follow up exam. I discussed risks, benefits and alternatives of a telephone visit telemedicine consultation with the patient (and any accompanying persons) including the risks that the patient's personal health details and medical records will be discussed over real-time, synchronous, interactive audio technology, the visit will not be recorded without the express consent of both the provider and the patient, and that there are inherent diagnostic limitations compared to [id number] evaluations. We elected to proceed with the telephone visit telemedicine consultation. Patient is engaged and cooperative during conversation. States she is tolerating the medication increases well (mirtazapine and Pristiq). She feels her thought process and comphrension is much improved. Symptoms are stable and have not worsened. Denies any recent mood changes or fluctuations. Denies any new or ongoing complaints/concerns. Denies any side effects of the medication. Denies any Suicidal Ideation or Homicidal Ideation Previous Visit: 06/15/2024 Patient presents for follow up exam. States she is tolerating the medication well. Symptoms are stable, but she is noting some increase in depressive symptoms and anxiety. She is not sleeping well, but does not contribute this to anxiety. Has had a lot of difficulty with sleep in the past. Did well with Remeron versus other medications she has tried. But does feel it is not as helpful as it was prior. Denies any recent mood changes or fluctuations. Denies any new or ongoing complaints/concerns. Denies any side effects of the medication. Denies any Suicidal Ideation or Homicidal Ideation Current stressors: sleep and chronic pain Current Medications: Outpatient Medications Prior to Visit Medication Sig Dispense Refill acetaminophen (TYLENOL) 500 MG tablet Take 1 (one) tablet (500 mg total) by mouth every 6 (six) hours as needed for pain THREE TIMES DAILY . albuterol (PROVENTIL) 2.5 mg /3 mL (0.083 %) nebulizer solution Take 3 mL (2.5 mg total) by nebulization every 6 (six) hours as needed for wheezing . 120 mL 12 albuterol 90 mcg/actuation inhaler Inhale 1 (one) puff to 2 (two) puffs every 4 to 6 hours as needed . atenoloL (TENORMIN) 50 MG tablet Take 1 (one) tablet (50 mg total) by mouth 2 (two) times a day . 120 tablet 0 [place] Saline Gel Apply topically 2 (two) times a day Apply a pea sized amount to both nostrils at bedtime and in a.m. You can use it more often.. 14.1 g 12 Bevespi Aerosphere 9-4.8 mcg HFAA Inhale 2 puffs 2 (two) times a day . 10.7 g 11 budesonide (PULMICORT) 0.5 mg/2 mL nebulizer solution Take 2 mL (0.5 mg total) by nebulization 2 (two) times a day . 60 mL 11 CALCITRATE 200 mg (950 mg) tablet Take 200 mg by mouth 3 (three) times a day . 0 diclofenac sodium 1% (VOLTAREN) 1 % Gel Apply topically 4 (four) times a day as needed for pain . 450 g 2 fexofenadine (LASHA) 180 MG tablet Take 1 (one) tablet (180 mg total) by mouth daily . Fish OiL 1,200 (144-216) mg cap Take 1 capsule by mouth 3 (three) times a day . fluticasone propionate (FLONASE) 50 mcg/actuation nasal spray Instill 2 (two) sprays into each nostril 2 (two) times a day . 18.2 mL 3 folic acid (FOLVITE) 1 MG tablet Take 1 (one) tablet (1 mg total) by mouth daily . furosemide (LASIX) 20 MG tablet Take 1 (one) tablet (20 mg total) by mouth daily . 90 tablet 1 guaiFENesin (MUCINEX) 600 mg 12 hr tablet Take 2 (two) tablets (1,200 mg total) by mouth 2 (two) times a day . ketoconazole (NIZORAL) 2 % cream Apply topically daily to feet . lansoprazole (PREVACID) 30 MG capsule Take 1 capsule by mouth every morning before breakfast on an empty stomach. . 90 capsule 3 levothyroxine (SYNTHROID, LEVOTHROID) 75 MCG tablet Take 1 (one) tablet (75 mcg total) by mouth every morning DOS . 90 tablet 1 lidocaine (LIDODERM) 5 % patch Place 1 (one) patch on the skin daily Remove & Discard patch within 12 hours or as directed by MD . 30 patch 0 magnesium glycinate 100 mg Tab Take 2.5 (two and a half) tablets (250 mg total) by mouth 2 (two) times a day . magnesium oxide (MAG-OX) 400 mg tablet Take 2.5 (two and a half) tablets (1,000 mg total) by mouth nightly . metaxalone (SKELAXIN) 800 MG tablet Take 1 (one) tablet (800 mg total) by mouth 2 (two) times a day as needed for muscle spasms . 60 tablet 1 metroNIDAZOLE (METROGEL) 1 % gel Apply once daily to entire face montelukast (SINGULAIR) 10 mg tablet Take 1 (one) tablet (10 mg total) by mouth nightly . 30 tablet 11 mupirocin (BACTROBAN) 2 % ointment Apply topically 2 (two) times a day . 22 g 0 Nucala 100 mg/mL AtIn Inject 1 mL (100 mg total) under the skin every 28 days . 3 mL 11 oxyCODONE-acetamino (more content not included)... [facility] 07-13-2024 History of Present illness Narrative Behavioral Health Outpatient Progress Note Patient Name: Elizabeth Cisneros MR #: [id number] : 1950 Chief Complaint: Medication and symptom review/management Interval History: 07/13/2024 Patient presents for follow up exam. I discussed risks, benefits and alternatives of a telephone visit telemedicine consultation with the patient (and any accompanying persons) including the risks that the patient's personal health details and medical records will be discussed over real-time, synchronous, interactive audio technology, the visit will not be recorded without the express consent of both the provider and the patient, and that there are inherent diagnostic limitations compared to [id number] evaluations. We elected to proceed with the telephone visit telemedicine consultation. Patient is engaged and cooperative during conversation. States she is tolerating the medication increases well (mirtazapine and Pristiq). She feels her thought process and comphrension is much improved. Symptoms are stable and have not worsened. Denies any recent mood changes or fluctuations. Denies any new or ongoing complaints/concerns. Denies any side effects of the medication. Denies any Suicidal Ideation or Homicidal Ideation Previous Visit: 06/15/2024 Patient presents for follow up exam. States she is tolerating the medication well. Symptoms are stable, but she is noting some increase in depressive symptoms and anxiety. She is not sleeping well, but does not contribute this to anxiety. Has had a lot of difficulty with sleep in the past. Did well with Remeron versus other medications she has tried. But does feel it is not as helpful as it was prior. Denies any recent mood changes or fluctuations. Denies any new or ongoing complaints/concerns. Denies any side effects of the medication. Denies any Suicidal Ideation or Homicidal Ideation Current stressors: sleep and chronic pain Current Medications: Outpatient Medications Prior to Visit Medication Sig Dispense Refill acetaminophen (TYLENOL) 500 MG tablet Take 1 (one) tablet (500 mg total) by mouth every 6 (six) hours as needed for pain THREE TIMES DAILY . albuterol (PROVENTIL) 2.5 mg /3 mL (0.083 %) nebulizer solution Take 3 mL (2.5 mg total) by nebulization every 6 (six) hours as needed for wheezing . 120 mL 12 albuterol 90 mcg/actuation inhaler Inhale 1 (one) puff to 2 (two) puffs every 4 to 6 hours as needed . atenoloL (TENORMIN) 50 MG tablet Take 1 (one) tablet (50 mg total) by mouth 2 (two) times a day . 120 tablet 0 [place] Saline Gel Apply topically 2 (two) times a day Apply a pea sized amount to both nostrils at bedtime and in a.m. You can use it more often.. 14.1 g 12 Bevespi Aerosphere 9-4.8 mcg HFAA Inhale 2 puffs 2 (two) times a day . 10.7 g 11 budesonide (PULMICORT) 0.5 mg/2 mL nebulizer solution Take 2 mL (0.5 mg total) by nebulization 2 (two) times a day . 60 mL 11 CALCITRATE 200 mg (950 mg) tablet Take 200 mg by mouth 3 (three) times a day . 0 diclofenac sodium 1% (VOLTAREN) 1 % Gel Apply topically 4 (four) times a day as needed for pain . 450 g 2 fexofenadine (LASHA) 180 MG tablet Take 1 (one) tablet (180 mg total) by mouth daily . Fish OiL 1,200 (144-216) mg cap Take 1 capsule by mouth 3 (three) times a day . fluticasone propionate (FLONASE) 50 mcg/actuation nasal spray Instill 2 (two) sprays into each nostril 2 (two) times a day . 18.2 mL 3 folic acid (FOLVITE) 1 MG tablet Take 1 (one) tablet (1 mg total) by mouth daily . furosemide (LASIX) 20 MG tablet Take 1 (one) tablet (20 mg total) by mouth daily . 90 tablet 1 guaiFENesin (MUCINEX) 600 mg 12 hr tablet Take 2 (two) tablets (1,200 mg total) by mouth 2 (two) times a day . ketoconazole (NIZORAL) 2 % cream Apply topically daily to feet . lansoprazole (PREVACID) 30 MG capsule Take 1 capsule by mouth every morning before breakfast on an empty stomach. . 90 capsule 3 levothyroxine (SYNTHROID, LEVOTHROID) 75 MCG tablet Take 1 (one) tablet (75 mcg total) by mouth every morning DOS . 90 tablet 1 lidocaine (LIDODERM) 5 % patch Place 1 (one) patch on the skin daily Remove & Discard patch within 12 hours or as directed by MD . 30 patch 0 magnesium glycinate 100 mg Tab Take 2.5 (two and a half) tablets (250 mg total) by mouth 2 (two) times a day . magnesium oxide (MAG-OX) 400 mg tablet Take 2.5 (two and a half) tablets (1,000 mg total) by mouth nightly . metaxalone (SKELAXIN) 800 MG tablet Take 1 (one) tablet (800 mg total) by mouth 2 (two) times a day as needed for muscle spasms . 60 tablet 1 metroNIDAZOLE (METROGEL) 1 % gel Apply once daily to entire face montelukast (SINGULAIR) 10 mg tablet Take 1 (one) tablet (10 mg total) by mouth nightly . 30 tablet 11 mupirocin (BACTROBAN) 2 % ointment Apply topically 2 (two) times a day . 22 g 0 Nucala 100 mg/mL AtIn Inject 1 mL (100 mg total) under the skin every 28 days . 3 mL 11 oxyCODONE-acetaminophen (PERCOCET) 5-325 mg per tablet Take 1 (one) tablet by mouth daily as needed for pain . 30 tablet 0 Prolia 60 mg/mL Syrg Inject 60 (sixty) mg under the skin once for 1 dose. Therems-M 9 mg iron-400 mcg Tab Take 1 (one) tablet by mouth daily . traMADol (ULTRAM) 50 mg tablet Take 1 (one) tablet (50 mg total) by mouth every 8 (eight) hours as needed for pain . 15 tablet 0 ubrogepant (Ubrelvy) 100 mg Tab Take 1 (one) tablet (100 mg total) by mouth at bedtime as needed (migraines) . 10 tablet 3 VITAMIN D3 2,000 unit cap Take 1 (one) capsule by mouth 2 (two) times a day . 0 zinc gluconate 50 mg tablet Take 1 (one) tablet (50 mg total) by mouth daily . desvenlafaxine succinate (PRISTIQ) 100 MG 24 hr tablet Take 1 (one) tablet (100 mg total) by mouth daily . 30 tablet 2 mirtazapine (REMERON) 45 MG tablet Take 1 (one) tablet (45 mg total) by mouth nightly . 30 tablet 2 No facility-administered medications prior to visit. Psychiatric ROS: Negative unless noted above. Review of Systems: Constitutional: Denies fever, chills, diaphoresis, malaise Eyes: Denies blurred vision, double vision ENT: Denies nasal congestion, sore throat Neurological: Denies headache, photophobia, weakness, numbness CVS: Denies chest pain or palpitations Respiratory: Denies dyspnea or cough Musculoskeletal: Denies joint pain or muscle aches GI: Denies nausea, vomiting, constipation, or diarrhea : Denies urinary urgency, frequency, or burning Integumentary: Denies itching or rash Endocrine: Denies heat/cold intolerance or weight loss/weight gain Mental Status Evaluation: Speech: normal rate, rhythym, volume, and spontaneity Flow of Thought: linear and goal directed Thought Associations: Intact Content of Thought: No evidence of suicidal ideations/homicidal ideations/psychosis Mood: good Affect: mood congruent Insight: intact Judgment: intact Orientation: alert and oriented to person, place, time, and circumstances Memory: intact recent and remote Attention: intact Concentration: intact Language: fluent Fund of Knowledge: estimated average intelligence Assessment and Plan/Recommendations Diagnoses/Treatment Plan: Diagnoses and all orders for this visit: Anxiety - desvenlafaxine succinate (PRISTIQ) 100 MG 24 hr tablet; Take 1 (one) tablet (100 mg total) by mouth daily . Moderate major depression (HCC) - desvenlafaxine succinate (PRISTIQ) 100 MG 24 hr tablet; Take 1 (one) tablet (100 mg total) by mouth daily . - mirtazapine (REMERON) 45 MG tablet; Take 1 (one) tablet (45 mg total) by mouth nightly . Pharmacological management: Alternative medication plans were discussed with the patient/guardian. All side effects or potential adverse effects were discussed with the patient/guardian. Parent/guardian consented to medication initiation or continuation of the following: Education: Continue medication as prescribed. Please report any side effects or intolerability of the medication. Report any new or worsening symptoms 11/03/2023 12:00 PM 01/27/2024 3:00 PM TADEO-7 TADEO-7 Score 14 7 11/03/2023 12:00 PM 01/27/2024 3:00 PM PHQ-9 PHQ-9 Total Score 19 10 Follow up in: 12 weeks or sooner if needed Treatment options and alternatives reviewed with patient. Risks, benefits, side effects of all psychiatric medications discussed with patient and informed consent obtained. All questions were answered. Miriam Cerna CNP 07/13/2024 12:54 PM documented in this encounter [facility] 06-29-2024 Note [facility] [address] [facility] [address] [facility] [place] [id number] Chief Complaint Patient presents with Right Hip - Pain Elizabeth Cisneros returns to the office today for right hip pain. About a month ago she sustained a fall, hitting her head as well as sustaining a compression fracture and fractures in her sacrum. She is able to ambulate into today's office visit although she is using a cane. She reports pain with ambulation in the upper lumbar spine area. She had been in to see her primary care physician and upon reviewing images, there was found to be some arthritis in that right hip. 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 She is also being seen by neurosurgery for her C-spine. She states that her neurosurgeon said that she was omayra after this fall that she did not have some type of permanent damage given the severity of stenosis in her cervical spine. She is scheduled to follow-up with him to discuss probable surgical intervention. The patient's past medical history, surgical history, social history, family history, medications and allergies were reviewed with the patient today and are available in the chart for further review. Allergies Allergen Reactions Penicillin G Hives, Shortness Of Breath and Swelling Sulfa (Sulfonamide Antibiotics) Hives, Shortness Of Breath and Swelling Trazodone Hives and Shortness Of Breath Celecoxib Hives Difficulty breathing, swelling Levofloxacin GI Intolerance Nausea and vomiting. [place] Diarrhea Other reaction(s): Vomiting Niacin Unknown Sulfites Cephalexin Rash Current Outpatient Medications: acetaminophen (TYLENOL) 500 MG tablet, Take 1 (one) tablet (500 mg total) by mouth every 6 (six) hours as needed for pain THREE TIMES DAILY ., Disp: , Rfl: albuterol (PROVENTIL) 2.5 mg /3 mL (0.083 %) nebulizer solution, Take 3 mL (2.5 mg total) by nebulization every 6 (six) hours as needed for wheezing ., Disp: 120 mL, Rfl: 12 albuterol 90 mcg/actuation inhaler, Inhale 1 (one) puff to 2 (two) puffs every 4 to 6 hours as needed ., Disp: , Rfl: [place] Saline Gel, Apply topically 2 (two) times a day Apply a pea sized amount to both nostrils at bedtime and in a.m. You can use it more often.., Disp: 14.1 g, Rfl: 12 Bevespi Aerosphere 9-4.8 mcg HFAA, Inhale 2 puffs 2 (two) times a day ., Disp: 10.7 g, Rfl: 11 budesonide (PULMICORT) 0.5 mg/2 mL nebulizer solution, Take 2 mL (0.5 mg total) by nebulization 2 (two) times a day ., Disp: 60 mL, Rfl: 11 CALCITRATE 200 mg (950 mg) tablet, Take 200 mg by mouth 3 (three) times a day ., Disp: , Rfl: 0 desvenlafaxine succinate (PRISTIQ) 100 MG 24 hr tablet, Take 1 (one) tablet (100 mg total) by mouth daily ., Disp: 30 tablet, Rfl: 2 diclofenac sodium 1% (VOLTAREN) 1 % Gel, Apply topically 4 (four) times a day as needed for pain ., Disp: 450 g, Rfl: 2 fexofenadine (LASHA) 180 MG tablet, Take 1 (one) tablet (180 mg total) by mouth daily ., Disp: , Rfl: Fish OiL 1,200 (144-216) mg cap, Take 1 capsule by mouth 3 (three) times a day ., Disp: , Rfl: fluticasone propionate (FLONASE) 50 mcg/actuation nasal spray, Instill 2 (two) sprays into each nostril 2 (two) times a day ., Disp: 18.2 mL, Rfl: 3 folic acid (FOLVITE) 1 MG tablet, Take 1 (one) tablet (1 mg total) by mouth daily ., Disp: , Rfl: furosemide (LASIX) 20 MG tablet, Take 1 (one) tablet (20 mg total) by mouth daily ., Disp: 90 tablet, Rfl: 1 guaiFENesin (MUCINEX) 600 mg 12 hr tablet, Take 2 (two) tablets (1,200 mg total) by mouth 2 (two) times a day ., Disp: , Rfl: ketoconazole (NIZORAL) 2 % cream, Apply topically daily to feet ., Disp: , Rfl: lansoprazole (PREVACID) 30 MG capsule, Take 1 capsule by mouth every morning before breakfast on an empty stomach. ., Disp: 90 capsule, Rfl: 3 levothyroxine (SYNTHROID, LEVOTHROID) 75 MCG tablet, Take 1 (one) tablet (75 mcg total) by mouth every morning DOS ., Disp: 90 tablet, Rfl: 1 magnesium glycinate 100 mg Tab, Take 2.5 (two and a half) tablets (250 mg total) by mouth 2 (two) times a day ., Disp: , Rfl: magnesium oxide (MAG-OX) 400 mg tablet, Take 2.5 (two and a half) tablets (1,000 mg total) by mouth nightly ., Disp: , Rfl: metaxalone (SKELAXIN) 800 MG tablet, Take 1 (one) tablet (800 mg total) by mouth 2 (two) times a day as needed for muscle spasms ., Disp: 60 tablet, Rfl: 1 metroNIDAZOLE (METROGEL) 1 % gel, Apply once daily to entire face, Disp: , Rfl: mirtazapine (REMERON) 45 MG tablet, Take 1 (one) tablet (45 mg total) by mouth nightly ., Disp: 30 tablet, Rfl: 2 montelukast (SINGULAIR) 10 mg tablet, Take 1 (one) tablet (10 mg total) by mouth nightly ., Disp: 30 tablet, Rfl: 11 mupirocin (BACTROBAN) 2 % ointment, Apply topically 2 (two) times a day ., Disp: 22 g, Rfl: 0 Nucala 100 mg/mL AtIn, Inject 1 mL (100 mg total) under the skin every 28 days (more content not included)... [facility] 06-29-2024 History of Present illness Narrative [facility] [address] [facility] [address] [facility] [place] [id number] Chief Complaint Patient presents with Right Hip - Pain Elizabeth Cisneros returns to the office today for right hip pain. About a month ago she sustained a fall, hitting her head as well as sustaining a compression fracture and fractures in her sacrum. She is able to ambulate into today's office visit although she is using a cane. She reports pain with ambulation in the upper lumbar spine area. She had been in to see her primary care physician and upon reviewing images, there was found to be some arthritis in that right hip. 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 She is also being seen by neurosurgery for her C-spine. She states that her neurosurgeon said that she was omayra after this fall that she did not have some type of permanent damage given the severity of stenosis in her cervical spine. She is scheduled to follow-up with him to discuss probable surgical intervention. The patient's past medical history, surgical history, social history, family history, medications and allergies were reviewed with the patient today and are available in the chart for further review. Allergies Allergen Reactions Penicillin G Hives, Shortness Of Breath and Swelling Sulfa (Sulfonamide Antibiotics) Hives, Shortness Of Breath and Swelling Trazodone Hives and Shortness Of Breath Celecoxib Hives Difficulty breathing, swelling Levofloxacin GI Intolerance Nausea and vomiting. [place] Diarrhea Other reaction(s): Vomiting Niacin Unknown Sulfites Cephalexin Rash Current Outpatient Medications: acetaminophen (TYLENOL) 500 MG tablet, Take 1 (one) tablet (500 mg total) by mouth every 6 (six) hours as needed for pain THREE TIMES DAILY ., Disp: , Rfl: albuterol (PROVENTIL) 2.5 mg /3 mL (0.083 %) nebulizer solution, Take 3 mL (2.5 mg total) by nebulization every 6 (six) hours as needed for wheezing ., Disp: 120 mL, Rfl: 12 albuterol 90 mcg/actuation inhaler, Inhale 1 (one) puff to 2 (two) puffs every 4 to 6 hours as needed ., Disp: , Rfl: [place] Saline Gel, Apply topically 2 (two) times a day Apply a pea sized amount to both nostrils at bedtime and in a.m. You can use it more often.., Disp: 14.1 g, Rfl: 12 Bevespi Aerosphere 9-4.8 mcg HFAA, Inhale 2 puffs 2 (two) times a day ., Disp: 10.7 g, Rfl: 11 budesonide (PULMICORT) 0.5 mg/2 mL nebulizer solution, Take 2 mL (0.5 mg total) by nebulization 2 (two) times a day ., Disp: 60 mL, Rfl: 11 CALCITRATE 200 mg (950 mg) tablet, Take 200 mg by mouth 3 (three) times a day ., Disp: , Rfl: 0 desvenlafaxine succinate (PRISTIQ) 100 MG 24 hr tablet, Take 1 (one) tablet (100 mg total) by mouth daily ., Disp: 30 tablet, Rfl: 2 diclofenac sodium 1% (VOLTAREN) 1 % Gel, Apply topically 4 (four) times a day as needed for pain ., Disp: 450 g, Rfl: 2 fexofenadine (LASHA) 180 MG tablet, Take 1 (one) tablet (180 mg total) by mouth daily ., Disp: , Rfl: Fish OiL 1,200 (144-216) mg cap, Take 1 capsule by mouth 3 (three) times a day ., Disp: , Rfl: fluticasone propionate (FLONASE) 50 mcg/actuation nasal spray, Instill 2 (two) sprays into each nostril 2 (two) times a day ., Disp: 18.2 mL, Rfl: 3 folic acid (FOLVITE) 1 MG tablet, Take 1 (one) tablet (1 mg total) by mouth daily ., Disp: , Rfl: furosemide (LASIX) 20 MG tablet, Take 1 (one) tablet (20 mg total) by mouth daily ., Disp: 90 tablet, Rfl: 1 guaiFENesin (MUCINEX) 600 mg 12 hr tablet, Take 2 (two) tablets (1,200 mg total) by mouth 2 (two) times a day ., Disp: , Rfl: ketoconazole (NIZORAL) 2 % cream, Apply topically daily to feet ., Disp: , Rfl: lansoprazole (PREVACID) 30 MG capsule, Take 1 capsule by mouth every morning before breakfast on an empty stomach. ., Disp: 90 capsule, Rfl: 3 levothyroxine (SYNTHROID, LEVOTHROID) 75 MCG tablet, Take 1 (one) tablet (75 mcg total) by mouth every morning DOS ., Disp: 90 tablet, Rfl: 1 magnesium glycinate 100 mg Tab, Take 2.5 (two and a half) tablets (250 mg total) by mouth 2 (two) times a day ., Disp: , Rfl: magnesium oxide (MAG-OX) 400 mg tablet, Take 2.5 (two and a half) tablets (1,000 mg total) by mouth nightly ., Disp: , Rfl: metaxalone (SKELAXIN) 800 MG tablet, Take 1 (one) tablet (800 mg total) by mouth 2 (two) times a day as needed for muscle spasms ., Disp: 60 tablet, Rfl: 1 metroNIDAZOLE (METROGEL) 1 % gel, Apply once daily to entire face, Disp: , Rfl: mirtazapine (REMERON) 45 MG tablet, Take 1 (one) tablet (45 mg total) by mouth nightly ., Disp: 30 tablet, Rfl: 2 montelukast (SINGULAIR) 10 mg tablet, Take 1 (one) tablet (10 mg total) by mouth nightly ., Disp: 30 tablet, Rfl: 11 mupirocin (BACTROBAN) 2 % ointment, Apply topically 2 (two) times a day ., Disp: 22 g, Rfl: 0 Nucala 100 mg/mL AtIn, Inject 1 mL (100 mg total) under the skin every 28 days ., Disp: 3 mL, Rfl: 11 oxyCODONE-acetaminophen (PERCOCET) 5-325 mg per tablet, Take 1 (one) tablet by mouth daily as needed for pain ., Disp: 30 tablet, Rfl: 0 Prolia 60 mg/mL Syrg, Inject 60 (sixty) mg under the skin once for 1 dose., Disp: , Rfl: Therems-M 9 mg iron-400 mcg Tab, Take 1 (one) tablet by mouth daily ., Disp: , Rfl: ubrogepant (Ubrelvy) 100 mg Tab, Take 1 (one) tablet (100 mg total) by mouth at bedtime as needed (migraines) ., Disp: 10 tablet, Rfl: 3 VITAMIN D3 2,000 unit cap, Take 1 (one) capsule by mouth 2 (two) times a day ., Disp: , Rfl: 0 zinc gluconate 50 mg tablet, Take 1 (one) tablet (50 mg total) by mouth daily ., Disp: , Rfl: atenoloL (TENORMIN) 50 MG tablet, Take 1 (one) tablet (50 mg total) by mouth 2 (two) times a day ., Disp: 120 tablet, Rfl: 0 Past Medical History: Diagnosis Date Anemia 03/2016 Anxiety Arrhythmia Arthritis Asthma ASVD (arteriosclerotic vascular disease) Bruises easily Carpal tunnel syndrome Cataracts, bilateral Cervical cancer (HCC) 06/1991 Clostridium difficile infection 1999 COPD (chronic obstructive pulmonary disease) (HCC) Coronary artery disease Depression Diabetes mellitus (HCC) 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 GERD (gastroesophageal reflux disease) 05/20/2016 Heart murmur Hyperlipidemia Hypertension Hypothyroidism (acquired) 05/20/2016 Injury of back Mitral valve prolapse Osteoporosis 11/25/2022 Squamous cell skin cancer Trigger finger Past Surgical History: Procedure Laterality Date ADENOIDECTOMY 1994 APPENDECTOMY ARTHROPLASTY HIP ROBOTIC EUEGNE Left 10/21/2021 Surgeon: Jovanna Valencia MD CARPAL TUNNEL RELEASE Left CATARACT EXTRACTION W/ INTRAOCULAR LENS IMPLANT Bilateral COLON SURGERY WITH ILEOSTOMY CORE DECOMPRESSION OF LEFT FEMEROL HEAD EYE SURGERY Bilateral LASER TO EYES FOR GLAUCOMA HANDS, DUPYTRENS, TRIGGER FINGER, CARPAL TUNNEL Right HYSTERECTOMY 1990 ILEOSTOMY REVERSAL INDEX FINGER SURGERY Right MUSCLE BIOPSY ROTATOR CUFF REPAIR Left SINUS SURGERY January 2018 and nik bullosa resection - Dr. Watters SINUS SURGERY 12/30/2019 balloon sinuplasty - Dr. 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 Tobacco Use Smoking status: Former Current packs/day: 0.00 Average packs/day: 1.5 packs/day for 42.1 years (63.1 ttl pk-yrs) Types: Cigarettes Start date: 1979 Quit date: 09/17/2021 Years since quittin.7 Passive exposure: Past Smokeless tobacco: Never Tobacco comments: Cigarettes Vaping Use Vaping status: Never Used Substance and Sexual Activity Alcohol use: No Drug use: No Sexual activity: Not Currently control/protection: Pill, Diaphragm, I.U.D., Surgical Comment: hysterectomy at age 39 Social Drivers of Health Food Insecurity: No Food Insecurity (05/31/2024) Hunger Vital Sign Worried About Running Out of Food in the Last Year: Never true Ran Out of Food in the Last Year: Never true Transportation Needs: No Transportation Needs (05/31/2024) PRAPARE - Transportation Lack of Transportation (Medical): No Lack of Transportation (Non-Medical): No Housing Stability: Low Risk (05/31/2024) Housing Stability Vital Sign Unable to Pay for Housing in the Last Year: No Number of Times Moved in the Last Year: 1 Homeless in the Last Year: No ROS: Review of Systems Musculoskeletal: Positive for arthralgias, back pain, gait problem and myalgias. Imaging: MRI R Hip: Acute/subacute nondisplaced transverse fracture of the sacrum at the S4 level with a small amount of adjacent bone marrow edema. Moderate degenerative changes of the right hip. Assessment/Plan: After reviewing the images and discussion with the patient, I did explain that the sacral fracture. Will heal on their own. This will take time. She is to continue with utilizing a walker or cane as needed. She is following up with neurosurgery for her neck as well as the lumbar compression fracture. Given the concern of her cervical spine, I encouraged the patient to follow-up with treatment of the cervical spine. At this point in time she is not a candidate for a hip replacement surgery. I would like to see her back in 4 to 6 weeks for follow-up on the sacral fracture. documented in this encounter [facility] 06-17-2024 Note Discussed endocrinol ogy recommendations with the patient and she was comfortable going back on the Prolia and prescription will be sent to the pharmacy. AUTHENTICATED BY SJ MOTLEY, ON 06/17/2024 14:11:00 [facility] 06-17-2024 Note Addended by: SJ MOTLEY on: 06/17/2024 02:10 PM Modules accepted: Orders [facility] 06-17-2024 Note Addended by: SJ MOTLEY on: 06/17/2024 02:10 PM Modules accepted: Orders [facility] 06-17-2024 History of Present illness Narrative Discussed endocrinology recommendations with the patient and she was comfortable going back on the Prolia and prescription will be sent to the pharmacy. Chief Complaint Patient presents with Transition Of Care HPI: Cynthia Cisneros is a 72-year-old female presenting today for follow-up. Has PMH of anxiety, depression, arrhythmias, asthma, GERD, hyperlipidemia, hypertension, hypothyroidism, chronic sinusitis, COPD and skin squamous cell cancer. Used to follow-up since 2018 [facility] in [place], transferring care to [facility]. Afib: She has a history of paroxysmal atrial fibrillation and she has not been maintained on chronic anticoagulation. Previous testing came back negative per patient's report. Normal stress testing done 2019 Echo done in 2019 with LVEF of 65% and stage I diastolic dysfunction and trace tricuspid regurg Currently on Eliquis prophylaxis 2.5 mg twice daily COPD and asthma : Has budesonide and albuterol nebulized in addition to Bevespi and Pulmicort,which control her symptoms. 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 Former smoker quit in 2021 PFTs confirm diagnosis of asthma, following up with pulmonology. Last CT came back showing small nodules with no concerns. Osteoporosis: Unsure of the last DEXA scan she will check her records and let me know. Has been on Prolia for the last 3 years tolerating it well. DEXA scan osteoporosis 2019. Last Dexa scan was 12/2023 which showed improvement and osteopenia , currently holding off prolia , last dose was october 2023 Tripped and feel at the chiropractor office and hit her head in the back with no LOC. She was evaluated by neurosurgery, who recommended that at some point she would need to undergo a discectomy for cervical spine given her severe stenosis. The patient was seen by PT/OT and speech services, and no outpatient recommendations were recommended. The patient is stable for discharge home today. SAH CT with small SAH along the anterolateral and superior margin of the right frontal lobe rHCT 06/01 stable, following up with neurosurgery. No concerns for headaches today L2 subacute compression fx Chronic T12 compression fracture CT noted increase in L2 compression deformity Slightly increased pain since fall with movement, now endorsing right leg paresthesias Pain has been under controlled , currently doing tylenol, oxycodone but done with hospital prescription, topicals with minimal benefit. S4 subacute fracture MRI, Treatment with rest, ice, heat, will heal on own Neck pain Cervical stenosis MRI with severe stenosis at C3-4 level where there is moderate flattening of the spinal cord and edema Neurosurgery discussed she would likely benefit from a discectomy at some point, though it is not an acute issue at this time. Following up outpatient. Right hip tendonitis Right hip pain and paresthesias ROM intact, describing what sounds like sciatic pain down right leg Right hip tender to touch, ROM intact MRI showed hamstring rt sided tendonitis as well as in the gluteus minimus and moderate to severe right hip OA Past Medical History: Diagnosis Date Anemia 03/2016 Anxiety Arrhythmia Arthritis Asthma ASVD (arteriosclerotic vascular disease) Bruises easily Carpal tunnel syndrome Cataracts, bilateral Cervical cancer (HCC) 06/1991 Clostridium difficile infection 1999 COPD (chronic obstructive pulmonary disease) (HCC) Coronary artery disease Depression Diabetes mellitus (HCC) 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 Watters SINUS SURGERY 12/30/2019 balloon sinuplasty - Dr. Key SKIN BIOPSY TONSILLECTOMY TRIGGER FINGER RELEASE Right 03/24/2018 RELEASE A1 TOD LEFT MIDDLE,RING, AND SMALL FINGERS WITH CORTISONE INJECTION RIGHT MIDDLE FINGER A1 TOD; Surgeon: Yonas Nguyen MD TUBAL LIGATION Family History Problem Relation Age of Onset Hypertension Father Asthma Father COPD Father Diabetes Father Hearing loss Father Heart disease Father Hyperlipidemia Father Osteoporosis Mother Hypertension Mother Arthritis Mother Cancer Mother Heart disease Mother Heart disease Maternal Grandfather Heart disease Sister Hypertension Sister Cancer Brother Asthma Brother Diabetes Brother Anesthesia problems Neg Hx Hip fracture Neg Hx Social History Tobacco Use Smoking status: Former Current packs/day: 0.00 Average packs/day: 1.5 packs/day for 42.1 years (63.1 ttl pk-yrs) Types: Cigarettes Start date: 1979 Quit date: 09/17/2021 Years since quittin.7 Passive exposure: Past Smokeless tobacco: Never Tobacco comments: Cigarettes Vaping Use Vaping status: Never Used Substance Use Topics Alcohol use: No Drug use: No Review of Systems Vitals: 06/14/24 1419 06/14/24 1421 06/14/24 1431 BP: (!) 183/96 (!) 179/98 126/84 BP Location: Right arm Right arm Patient Position: Sitting Sitting BP Cuff Size: Adult Adult Pulse: 84 86 Resp: 16 Temp: 97.6 F (36.4 C) TempSrc: Temporal SpO2: 94% Weight: 66.7 kg (147 lb) Height: 5' 3 Estimated body mass index is 26.04 kg/m as calculated from the following: Height as of this encounter: 5' 3. Weight as of this encounter: 66.7 kg (147 lb). Physical Exam Constitutional: General: She is not in acute distress. Appearance: She is not ill-appearing. HENT: Head: Normocephalic and atraumatic. Nose: Nose normal. Mouth/Throat: Mouth: Mucous membranes are moist. Pharynx: Oropharynx is clear. No oropharyngeal exudate or posterior oropharyngeal erythema. Eyes: Extraocular Movements: Extraocular movements intact. Conjunctiva/sclera: Conjunctivae normal. Pupils: Pupils are equal, round, and reactive to light. Cardiovascular: Rate and Rhythm: Normal rate and regular rhythm. Pulses: Normal pulses. Heart sounds: Normal heart sounds. No murmur heard. No gallop. Pulmonary: Effort: Pulmonary effort is normal. Breath sounds: No wheezing, rhonchi or rales. Chest: Chest wall: No tenderness. Abdominal: General: Abdomen is flat. Bowel sounds are normal. There is no distension. Palpations: Abdomen is soft. There is no mass. Tenderness: There is no abdominal tenderness. There is no right CVA tenderness, left CVA tenderness, guarding or rebound. Musculoskeletal: General: No tenderness. Normal range of motion. Cervical back: Normal range of motion and neck supple. No rigidity. No muscular tenderness. Right lower leg: No edema. Left lower leg: No edema. Lymphadenopathy: Cervical: No cervical adenopathy. Skin: General: Skin is warm. Findings: No erythema or rash. Neurological: General: No focal deficit present. Mental Status: She is alert and oriented to person, place, and time. Sensory: No sensory deficit. Motor: No weakness. Gait: Gait normal. Psychiatric: Mood and Affect: Mood normal. Behavior: Behavior normal. Thought Content: Thought content normal. Judgment: Judgment normal. OARRS/NARxCHECK Report Received and Assessed: Sj Motley MD on 06/14/2024 5:12 PM Date controlled substance agreement signed: No data found Date of last drug screen: @Exam@ PHQ9: TADEO-7 Tobacco Counseling: Counseling given: Not Answered Tobacco comments: Cigarettes Patient's Medications New Prescriptions OXYCODONE-ACETAMINOPHEN (PERCOCET) 5-325 MG PER TABLET Take 1 (one) tablet by mouth daily as needed for pain . PREDNISONE (DELTASONE) 20 MG TABLET Take 2 (two) tablets (40 mg total) by mouth daily for 5 days . Previous Medications ACETAMINOPHEN (TYLENOL) 500 MG TABLET Take 1 (one) tablet (500 mg total) by mouth every 6 (six) hours as needed for pain THREE TIMES DAILY . ALBUTEROL (PROVENTIL) 2.5 MG /3 ML (0.083 %) NEBULIZER SOLUTION Take 3 mL (2.5 mg total) by nebulization every 6 (six) hours as needed for wheezing . ALBUTEROL 90 MCG/ACTUATION INHALER Inhale 1 (one) puff to 2 (two) puffs every 4 to 6 hours as needed . ATENOLOL (TENORMIN) 50 MG TABLET Take 1 (one) tablet (50 mg total) by mouth 2 (two) times a day . [place] SALINE GEL Apply topically 2 (two) times a day Apply a pea sized amount to both nostrils at bedtime and in a.m. You can use it more often.. BEVESPI AEROSPHERE 9-4.8 MCG HFAA Inhale 2 puffs 2 (two) times a day . BUDESONIDE (PULMICORT) 0.5 MG/2 ML NEBULIZER SOLUTION Take 2 mL (0.5 mg total) by nebulization 2 (two) times a day . CALCITRATE 200 MG (950 MG) TABLET Take 200 mg by mouth 3 (three) times a day . DESVENLAFAXINE SUCCINATE (PRISTIQ) 50 MG 24 HR TABLET Take 1 (one) tablet (50 mg total) by mouth daily . DICLOFENAC SODIUM 1% (VOLTAREN) 1 % GEL Apply topically 4 (four) times a day as needed for pain . FEXOFENADINE (LASHA) 180 MG TABLET Take 1 (one) tablet (180 mg total) by mouth daily . FISH OIL 1,200 (144-216) MG CAP Take 1 capsule by mouth 3 (three) times a day . FLUTICASONE PROPIONATE (FLONASE) 50 MCG/ACTUATION NASAL SPRAY Instill 2 (two) sprays into each nostril 2 (two) times a day . FOLIC ACID (FOLVITE) 1 MG TABLET Take 1 (one) tablet (1 mg total) by mouth daily . FUROSEMIDE (LASIX) 20 MG TABLET Take 1 (one) tablet (20 mg total) by mouth daily . GUAIFENESIN (MUCINEX) 600 MG 12 HR TABLET Take 2 (two) tablets (1,200 mg total) by mouth 2 (two) times a day . KETOCONAZOLE (NIZORAL) 2 % CREAM Apply topically daily to feet . LANSOPRAZOLE (PREVACID) 30 MG CAPSULE Take 1 capsule by mouth every morning before breakfast on an empty stomach. . LEVOTHYROXINE (SYNTHROID, LEVOTHROID) 75 MCG TABLET Take 1 (one) tablet (75 mcg total) by mouth every morning DOS . MAGNESIUM GLYCINATE 100 MG TAB Take 2.5 (two and a half) tablets (250 mg total) by mouth 2 (two) times a day . MAGNESIUM OXIDE (MAG-OX) 400 MG TABLET Take 2.5 (two and a half) tablets (1,000 mg total) by mouth nightly . METRONIDAZOLE (METROGEL) 1 % GEL Apply once daily to entire face MIRTAZAPINE (REMERON) 30 MG TABLET Take 1 (one) tablet (30 mg total) by mouth nightly Takes additional 7.5 . MIRTAZAPINE (REMERON) 7.5 MG TABLET Take 1 (one) tablet (7.5 mg total) by mouth nightly . MONTELUKAST (SINGULAIR) 10 MG TABLET Take 1 (one) tablet (10 mg total) by mouth nightly . MUPIROCIN (BACTROBAN) 2 % OINTMENT Apply topically 2 (two) times a day . NUCALA 100 MG/ML ATIN Inject 1 mL (100 mg total) under the skin every 28 days . THEREMS-M 9 MG IRON-400 MCG TAB Take 1 (one) tablet by mouth daily . UBROGEPANT (UBRELVY) 100 MG TAB Take 1 (one) tablet (100 mg total) by mouth at bedtime as needed (migraines) . VITAMIN D3 2,000 UNIT CAP Take 1 (one) capsule by mouth 2 (two) times a day . ZINC GLUCONATE 50 MG TABLET Take 1 (one) tablet (50 mg total) by mouth daily . Modified Medications No medications on file Discontinued Medications No medications on file Health Maintenance Due Topic Date Due Colorectal Cancer Screening/Monitoring Never done PT Plan of Care Never done Medicare Wellness Visit Never done Diabetic Foot Exam Never done Hepatitis C Screening Never done Mammogram Never done Diabetic Eye Exam 06/18/2023 A1C 03/18/2024 COVID-19 Vaccine ( season) 2024 Respiratory Syncytial Virus Immunization: Risk, 60-74 Risk, or 75+ (1 - 1-dose 75+ series) 2023 Low-dose CT Lung Cancer Screen 09/09/2024 Assessment & Plan Problem List Items Addressed This Visit Nervous and Auditory Subarachnoid hemorrhage (HCC) Interval improvement , asymptomatic at this time Musculoskeletal and Integument Osteoporosis Last Dexa scan was 12/2023 which showed improvement and osteopenia , currently holding off prolia , last dose was october 2023 Will discuss further management with concurrent fractures and discuss her case with endocrinology Closed compression fracture of L2 vertebra (HCC) Discussed further evaluation with pain control and extending pain regimen with percocet till neurosurgery appointment , with the hope to use it sparingly and PT to improve pain with stretching especially with concurrent right hip pain and OA Considering pain management referral I did an OARRS check with no red flags, 30 tabs of percocet were sent. Prednisone course in the setting of spinal stenosis to help Considering different osteoporosis regimen to limit those fracture will consult with endocrinology and let the patient know Relevant Medications oxyCODONE-acetaminophen (PERCOCET) 5-325 mg per tablet predniSONE (DELTASONE) 20 MG tablet Other Right hip pain - Primary PT and orthopedics referral sent Relevant Orders Ambulatory Ref to Mark/Shilpa (PT/OT/ST) Ambulatory referral to Orthopedic Surgery I spent 45 minutes with patient reviewing HPI and coordinating plan of care as well as documenting that note. My ongoing relationship with Elizabeth Cisneros requires continued responsibility and cognitive effort of being the focal point for all services related to chronic condition(s). Return in about 3 months (around 09/14/2024) for Follow Up. SJ MOTLEY MD [facility] [address] [facility] [address] [facility] [id number] Dept: [phone] documented in this encounter [facility] 06-17-2024 Miscellaneous Notes Addended by: SJ MOTLEY on: 06/17/2024 02:10 PM Modules accepted: Orders Associated Problem(s): Right hip pain PT and orthopedics referral sent Associated Problem(s): Osteoporosis Last Dexa scan was 12/2023 which showed improvement and osteopenia , currently holding off prolia , last dose was october 2023 Will discuss further management with concurrent fractures and discuss her case with endocrinology Associated Problem(s): Subarachnoid hemorrhage (HCC) Interval improvement , asymptomatic at this time Associated Problem(s): Closed compression fracture of L2 vertebra (HCC) Discussed further evaluation with pain control and extending pain regimen with percocet till neurosurgery appointment , with the hope to use it sparingly and PT to improve pain with stretching especially with concurrent right hip pain and OA Considering pain management referral I did an OARRS check with no red flags, 30 tabs of percocet were sent. Prednisone course in the setting of spinal stenosis to help Considering different osteoporosis regimen to limit those fracture will consult with endocrinology and let the patient know documented in this encounter [facility] 06-17-2024 Miscellaneous Notes Addended by: SJ MOTLEY on: 06/17/2024 02:10 PM Modules accepted: Orders Associated Problem(s): Right hip pain PT and orthopedics referral sent Associated Problem(s): Osteoporosis Last Dexa scan was 12/2023 which showed improvement and osteopenia , currently holding off prolia , last dose was october 2023 Will discuss further management with concurrent fractures and discuss her case with endocrinology Associated Problem(s): Subarachnoid hemorrhage (HCC) Interval improvement , asymptomatic at this time Associated Problem(s): Closed compression fracture of L2 vertebra (HCC) Discussed further evaluation with pain control and extending pain regimen with percocet till neurosurgery appointment , with the hope to use it sparingly and PT to improve pain with stretching especially with concurrent right hip pain and OA Considering pain management referral I did an OARRS check with no red flags, 30 tabs of percocet were sent. Prednisone course in the setting of spinal stenosis to help Considering different osteoporosis regimen to limit those fracture will consult with endocrinology and let the patient know documented in this encounter [facility] 06-15-2024 Note Behavioral Health Ou tpatient Progress Note Patient Name: Elizabeth Cisneros MR #: [id number] : 1950 Chief Complaint: Medication and symptom review/management Interval History: 06/15/2024 Patient presents for follow up exam. States she is tolerating the medication well. Symptoms are stable, but she is noting some increase in depressive symptoms and anxiety. She is not sleeping well, but does not contribute this to anxiety. Has had a lot of difficulty with sleep in the past. Did well with Remeron versus other medications she has tried. But does feel it is not as helpful as it was prior. Denies any recent mood changes or fluctuations. Denies any new or ongoing complaints/concerns. Denies any side effects of the medication. Denies any Suicidal Ideation or Homicidal Ideation Current stressors: sleep and chronic pain Previous Visit: 01/27/2024 Patient presents for follow up exam. States she is tolerating the medication well. She has been taking Pristiq as prescribed for 45 days. She has noted some mild symptom improvement but is not at 100 % yet. are stable and have not worsened. Denies any recent mood changes or fluctuations. She is having some mild depression noted in the am until she takes her medication. She is still noting poor sleep average 4 hours. Denies any new or ongoing complaints/concerns. Denies any side effects of the medication. Denies any Suicidal Ideation or Homicidal Ideation Current Medications: Outpatient Medications Prior to Visit Medication Sig Dispense Refill acetaminophen (TYLENOL) 500 MG tablet Take 1 (one) tablet (500 mg total) by mouth every 6 (six) hours as needed for pain THREE TIMES DAILY . albuterol (PROVENTIL) 2.5 mg /3 mL (0.083 %) nebulizer solution Take 3 mL (2.5 mg total) by nebulization every 6 (six) hours as needed for wheezing . 120 mL 12 albuterol 90 mcg/actuation inhaler Inhale 1 (one) puff to 2 (two) puffs every 4 to 6 hours as needed . atenoloL (TENORMIN) 50 MG tablet Take 1 (one) tablet (50 mg total) by mouth 2 (two) times a day . 120 tablet 0 [place] Saline Gel Apply topically 2 (two) times a day Apply a pea sized amount to both nostrils at bedtime and in a.m. You can use it more often.. 14.1 g 12 Bevespi Aerosphere 9-4.8 mcg HFAA Inhale 2 puffs 2 (two) times a day . 10.7 g 11 budesonide (PULMICORT) 0.5 mg/2 mL nebulizer solution Take 2 mL (0.5 mg total) by nebulization 2 (two) times a day . 60 mL 11 CALCITRATE 200 mg (950 mg) tablet Take 200 mg by mouth 3 (three) times a day . 0 diclofenac sodium 1% (VOLTAREN) 1 % Gel Apply topically 4 (four) times a day as needed for pain . 450 g 2 fexofenadine (LASHA) 180 MG tablet Take 1 (one) tablet (180 mg total) by mouth daily . Fish OiL 1,200 (144-216) mg cap Take 1 capsule by mouth 3 (three) times a day . fluticasone propionate (FLONASE) 50 mcg/actuation nasal spray Instill 2 (two) sprays into each nostril 2 (two) times a day . 18.2 mL 3 folic acid (FOLVITE) 1 MG tablet Take 1 (one) tablet (1 mg total) by mouth daily . furosemide (LASIX) 20 MG tablet Take 1 (one) tablet (20 mg total) by mouth daily . 90 tablet 1 guaiFENesin (MUCINEX) 600 mg 12 hr tablet Take 2 (two) tablets (1,200 mg total) by mouth 2 (two) times a day . ketoconazole (NIZORAL) 2 % cream Apply topically daily to feet . lansoprazole (PREVACID) 30 MG capsule Take 1 capsule by mouth every morning before breakfast on an empty stomach. . 90 capsule 3 levothyroxine (SYNTHROID, LEVOTHROID) 75 MCG tablet Take 1 (one) tablet (75 mcg total) by mouth every morning DOS . 90 tablet 1 magnesium glycinate 100 mg Tab Take 2.5 (two and a half) tablets (250 mg total) by mouth 2 (two) times a day . magnesium oxide (MAG-OX) 400 mg tablet Take 2.5 (two and a half) tablets (1,000 mg total) by mouth nightly . metroNIDAZOLE (METROGEL) 1 % gel Apply once daily to entire face montelukast (SINGULAIR) 10 mg tablet Take 1 (one) tablet (10 mg total) by mouth nightly . 30 tablet 11 mupirocin (BACTROBAN) 2 % ointment Apply topically 2 (two) times a day . 22 g 0 Nucala 100 mg/mL AtIn Inject 1 mL (100 mg total) under the skin every 28 days . 3 mL 11 oxyCODONE-acetaminophen (PERCOCET) 5-325 mg per tablet Take 1 (one) tablet by mouth daily as needed for pain . 30 tablet 0 predniSONE (DELTASONE) 20 MG tablet Take 2 (two) tablets (40 mg total) by mouth daily for 5 days . 10 tablet 0 [place]-M 9 mg iron-400 mcg Tab Take 1 (one) tablet by mouth daily . ubrogepant (Ubrelvy) 100 mg Tab Take 1 (one) tablet (100 mg total) by mouth at bedtime as needed (migraines) . 10 tablet 3 VITAMIN D3 2,000 unit cap Take 1 (one) capsule by mouth 2 (two) times a day . 0 zinc gluconate 50 mg tablet Take 1 (one) tablet (50 mg total) by mouth daily . desvenlafaxine succinate (PRISTIQ) 50 MG 24 hr tablet Take 1 (one) tablet (50 mg total) by mouth daily . 30 tablet 0 mirtazapine (REMERON) 30 MG tablet Take 1 (one) tablet (30 mg total) (more content not included)... [facility] 06-15-2024 History of Present illness Narrative Images from the original note were not included. Behavioral Health Outpatient Progress Note Patient Name: Elizabeth Cisneros MR #: [id number] : 1950 Chief Complaint: Medication and symptom review/management Interval History: 06/15/2024 Patient presents for follow up exam. States she is tolerating the medication well. Symptoms are stable, but she is noting some increase in depressive symptoms and anxiety. She is not sleeping well, but does not contribute this to anxiety. Has had a lot of difficulty with sleep in the past. Did well with Remeron versus other medications she has tried. But does feel it is not as helpful as it was prior. Denies any recent mood changes or fluctuations. Denies any new or ongoing complaints/concerns. Denies any side effects of the medication. Denies any Suicidal Ideation or Homicidal Ideation Current stressors: sleep and chronic pain Previous Visit: 01/27/2024 Patient presents for follow up exam. States she is tolerating the medication well. She has been taking Pristiq as prescribed for 45 days. She has noted some mild symptom improvement but is not at 100 % yet. are stable and have not worsened. Denies any recent mood changes or fluctuations. She is having some mild depression noted in the am until she takes her medication. She is still noting poor sleep average 4 hours. Denies any new or ongoing complaints/concerns. Denies any side effects of the medication. Denies any Suicidal Ideation or Homicidal Ideation Current Medications: Outpatient Medications Prior to Visit Medication Sig Dispense Refill acetaminophen (TYLENOL) 500 MG tablet Take 1 (one) tablet (500 mg total) by mouth every 6 (six) hours as needed for pain THREE TIMES DAILY . albuterol (PROVENTIL) 2.5 mg /3 mL (0.083 %) nebulizer solution Take 3 mL (2.5 mg total) by nebulization every 6 (six) hours as needed for wheezing . 120 mL 12 albuterol 90 mcg/actuation inhaler Inhale 1 (one) puff to 2 (two) puffs every 4 to 6 hours as needed . atenoloL (TENORMIN) 50 MG tablet Take 1 (one) tablet (50 mg total) by mouth 2 (two) times a day . 120 tablet 0 [place] Saline Gel Apply topically 2 (two) times a day Apply a pea sized amount to both nostrils at bedtime and in a.m. You can use it more often.. 14.1 g 12 Bevespi Aerosphere 9-4.8 mcg HFAA Inhale 2 puffs 2 (two) times a day . 10.7 g 11 budesonide (PULMICORT) 0.5 mg/2 mL nebulizer solution Take 2 mL (0.5 mg total) by nebulization 2 (two) times a day . 60 mL 11 CALCITRATE 200 mg (950 mg) tablet Take 200 mg by mouth 3 (three) times a day . 0 diclofenac sodium 1% (VOLTAREN) 1 % Gel Apply topically 4 (four) times a day as needed for pain . 450 g 2 fexofenadine (LASHA) 180 MG tablet Take 1 (one) tablet (180 mg total) by mouth daily . Fish OiL 1,200 (144-216) mg cap Take 1 capsule by mouth 3 (three) times a day . fluticasone propionate (FLONASE) 50 mcg/actuation nasal spray Instill 2 (two) sprays into each nostril 2 (two) times a day . 18.2 mL 3 folic acid (FOLVITE) 1 MG tablet Take 1 (one) tablet (1 mg total) by mouth daily . furosemide (LASIX) 20 MG tablet Take 1 (one) tablet (20 mg total) by mouth daily . 90 tablet 1 guaiFENesin (MUCINEX) 600 mg 12 hr tablet Take 2 (two) tablets (1,200 mg total) by mouth 2 (two) times a day . ketoconazole (NIZORAL) 2 % cream Apply topically daily to feet . lansoprazole (PREVACID) 30 MG capsule Take 1 capsule by mouth every morning before breakfast on an empty stomach. . 90 capsule 3 levothyroxine (SYNTHROID, LEVOTHROID) 75 MCG tablet Take 1 (one) tablet (75 mcg total) by mouth every morning DOS . 90 tablet 1 magnesium glycinate 100 mg Tab Take 2.5 (two and a half) tablets (250 mg total) by mouth 2 (two) times a day . magnesium oxide (MAG-OX) 400 mg tablet Take 2.5 (two and a half) tablets (1,000 mg total) by mouth nightly . metroNIDAZOLE (METROGEL) 1 % gel Apply once daily to entire face montelukast (SINGULAIR) 10 mg tablet Take 1 (one) tablet (10 mg total) by mouth nightly . 30 tablet 11 mupirocin (BACTROBAN) 2 % ointment Apply topically 2 (two) times a day . 22 g 0 Nucala 100 mg/mL AtIn Inject 1 mL (100 mg total) under the skin every 28 days . 3 mL 11 oxyCODONE-acetaminophen (PERCOCET) 5-325 mg per tablet Take 1 (one) tablet by mouth daily as needed for pain . 30 tablet 0 predniSONE (DELTASONE) 20 MG tablet Take 2 (two) tablets (40 mg total) by mouth daily for 5 days . 10 tablet 0 Therems-M 9 mg iron-400 mcg Tab Take 1 (one) tablet by mouth daily . ubrogepant (Ubrelvy) 100 mg Tab Take 1 (one) tablet (100 mg total) by mouth at bedtime as needed (migraines) . 10 tablet 3 VITAMIN D3 2,000 unit cap Take 1 (one) capsule by mouth 2 (two) times a day . 0 zinc gluconate 50 mg tablet Take 1 (one) tablet (50 mg total) by mouth daily . desvenlafaxine succinate (PRISTIQ) 50 MG 24 hr tablet Take 1 (one) tablet (50 mg total) by mouth daily . 30 tablet 0 mirtazapine (REMERON) 30 MG tablet Take 1 (one) tablet (30 mg total) by mouth nightly Takes additional 7.5 . 90 tablet 0 mirtazapine (REMERON) 7.5 MG tablet Take 1 (one) tablet (7.5 mg total) by mouth nightly . 90 tablet 0 No facility-administered medications prior to visit. Psychiatric ROS: Negative unless noted above. Review of Systems: Constitutional: Denies fever, chills, diaphoresis, malaise Eyes: Denies blurred vision, double vision ENT: Denies nasal congestion, sore throat Neurological: Denies headache, photophobia, weakness, numbness CVS: Denies chest pain or palpitations Respiratory: Denies dyspnea or cough Musculoskeletal: Denies joint pain or muscle aches GI: Denies nausea, vomiting, constipation, or diarrhea : Denies urinary urgency, frequency, or burning Integumentary: Denies itching or rash Endocrine: Denies heat/cold intolerance or weight loss/weight gain Physical Exam: General: Alert and oriented to person, place, and time. Is in no acute distress. Well developed, hydrated, and nourished. Appears stated age. Skin: Skin in warm, dry and intact without rashes or lesions. Appropriate color for ethnicity. Nailbeds pink with no cyanosis or clubbing. Head: The head is normocephalic and atraumatic. Eyes: PERRLA Neck: Supple Respiratory: Respirations are non labored. Musculoskeletal: Active ROM in all four extremities. Uses cane for ambulation Neurological: Motor function is normal in upper and lower extremities. No gait abnormalities are appreciated. Mental Status Evaluation: General Appearance & Behavior: age appropriate, pleasant, cooperative, good eye contact Grooming & Hygiene: neat and clean Psychomotor Activity: no psychomotor abnormalities or muscle atrophy noted Speech: normal rate, rhythym, volume, and spontaneity Flow of Thought: linear and goal directed Thought Associations: Intact Content of Thought: No evidence of suicidal ideations/homicidal ideations/psychosis Mood: okay Affect: anxious Insight: intact Judgment: intact Orientation: alert and oriented to person, place, time, and circumstances Memory: intact recent and remote Attention: intact Concentration: intact Language: fluent Fund of Knowledge: estimated average intelligence Assessment and Plan/Recommendations Diagnoses/Treatment Plan: Diagnoses and all orders for this visit: Anxiety - desvenlafaxine succinate (PRISTIQ) 100 MG 24 hr tablet; Take 1 (one) tablet (100 mg total) by mouth daily . Moderate major depression (HCC) - desvenlafaxine succinate (PRISTIQ) 100 MG 24 hr tablet; Take 1 (one) tablet (100 mg total) by mouth daily . - mirtazapine (REMERON) 45 MG tablet; Take 1 (one) tablet (45 mg total) by mouth nightly . Pharmacological management: Alternative medication plans were discussed with the patient/guardian. All side effects or potential adverse effects were discussed with the patient/guardian. Parent/guardian consented to medication initiation or continuation of the following: Education: Continue medication as prescribed. Please report any side effects or intolerability of the medication. Report any new or worsening symptoms 11/03/2023 12:00 PM 01/27/2024 3:00 PM TADEO-7 TADEO-7 Score 14 7 11/03/2023 12:00 PM 01/27/2024 3:00 PM PHQ-9 PHQ-9 Total Score 19 10 Follow up in: weeks or sooner if needed Treatment options and alternatives reviewed with patient. Risks, benefits, side effects of all psychiatric medications discussed with patient and informed consent obtained. All questions were answered. Miriam Cerna CNP 06/15/2024 2:11 PM documented in this encounter [facility] 06-14-2024 Evaluation + Plan note Associated Problem(s): Right hip pain PT and orthopedics referral sent [facility] 06-14-2024 Miscellaneous Notes Associated Problem(s): Right hip pain PT and orthopedics referral sent Associated Problem(s): Osteoporosis Last Dexa scan was 12/2023 which showed improvement and osteopenia , currently holding off prolia , last dose was october 2023 Will discuss further management with concurrent fractures and discuss her case with endocrinology Associated Problem(s): Subarachnoid hemorrhage (HCC) Interval improvement , asymptomatic at this time Associated Problem(s): Closed compression fracture of L2 vertebra (HCC) Discussed further evaluation with pain control and extending pain regimen with percocet till neurosurgery appointment , with the hope to use it sparingly and PT to improve pain with stretching especially with concurrent right hip pain and OA Considering pain management referral I did an OARRS check with no red flags, 30 tabs of percocet were sent. Prednisone course in the setting of spinal stenosis to help Considering different osteoporosis regimen to limit those fracture will consult with endocrinology and let the patient know documented in this encounter [facility] 06-14-2024 Evaluation + Plan note Associated Problem(s): Osteoporosis Last Dexa scan was 12/2023 which showed improvement and osteopenia , currently holding off prolia , last dose was october 2023 Will discuss further management with concurrent fractures and discuss her case with endocrinology [facility] 06-14-2024 Evaluation + Plan note Associated Problem(s): Subarachnoid hemorrhage (HCC) Interval improvement , asymptomatic at this time [facility] 06-14-2024 Evaluation + Plan note Associated Problem(s): Closed compression fracture of L2 vertebra (HCC) Discussed further evaluation with pain control and extending pain regimen with percocet till neurosurgery appointment , with the hope to use it sparingly and PT to improve pain with stretching especially with concurrent right hip pain and OA Considering pain management referral I did an OARRS check with no red flags, 30 tabs of percocet were sent. Prednisone course in the setting of spinal stenosis to help Considering different osteoporosis regimen to limit those fracture will consult with endocrinology and let the patient know [facility] 06-14-2024 Note Chief Complaint Patient presents with Transition Of Care HPI: Cynthia Cisneros is a 72-year-old female presenting today for follow-up. Has PMH of anxiety, depression, arrhythmias, asthma, GERD, hyperlipidemia, hypertension, hypothyroidism, chronic sinusitis, COPD and skin squamous cell cancer. Used to follow-up since 2018 [facility] in [place], transferring care to [facility]. Afib: She has a history of paroxysmal atrial fibrillation and she has not been maintained on chronic anticoagulation. Previous testing came back negative per patient's report. Normal stress testing done 2019 Echo done in 2019 with LVEF of 65% and stage I diastolic dysfunction and trace tricuspid regurg Currently on Eliquis prophylaxis 2.5 mg twice daily COPD and asthma : Has budesonide and albuterol nebulized in addition to Bevespi and Pulmicort,which control her symptoms. 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 Former smoker quit in 2021 PFTs confirm diagnosis of asthma, following up with pulmonology. Last CT came back showing small nodules with no concerns. Osteoporosis: Unsure of the last DEXA scan she will check her records and let me know. Has been on Prolia for the last 3 years tolerating it well. DEXA scan osteoporosis 2019. Last Dexa scan was 12/2023 which showed improvement and osteopenia , currently holding off prolia , last dose was october 2023 Tripped and feel at the chiropractor office and hit her head in the back with no LOC. She was evaluated by neurosurgery, who recommended that at some point she would need to undergo a discectomy for cervical spine given her severe stenosis. The patient was seen by PT/OT and speech services, and no outpatient recommendations were recommended. The patient is stable for discharge home today. SAH CT with small SAH along the anterolateral and superior margin of the right frontal lobe rHCT 06/01 stable, following up with neurosurgery. No concerns for headaches today L2 subacute compression fx Chronic T12 compression fracture CT noted increase in L2 compression deformity Slightly increased pain since fall with movement, now endorsing right leg paresthesias Pain has been under controlled , currently doing tylenol, oxycodone but done with hospital prescription, topicals with minimal benefit. S4 subacute fracture MRI, Treatment with rest, ice, heat, will heal on own Neck pain Cervical stenosis MRI with severe stenosis at C3-4 level where there is moderate flattening of the spinal cord and edema Neurosurgery discussed she would likely benefit from a discectomy at some point, though it is not an acute issue at this time. Following up outpatient. Right hip tendonitis Right hip pain and paresthesias ROM intact, describing what sounds like sciatic pain down right leg Right hip tender to touch, ROM intact MRI showed hamstring rt sided tendonitis as well as in the gluteus minimus and moderate to severe right hip OA Past Medical History: Diagnosis Date Anemia 03/2016 Anxiety Arrhythmia Arthritis Asthma ASVD (arteriosclerotic vascular disease) Bruises easily Carpal tunnel syndrome Cataracts, bilateral Cervical cancer (HCC) 06/1991 Clostridium difficile infection 1999 COPD (chronic obstructive pulmonary disease) (HCC) Coronary artery disease Depression Diabetes mellitus (HCC) 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 Watters SINUS SURGERY 12/30/2019 balloon sinuplasty - Dr. Key SKIN BIOPSY TONSILLECTOMY TRIGGER FINGER RELEASE Right 03/24/2018 RELEASE A1 TOD LEFT MIDDLE,RING, AND SMALL FINGERS WITH CORTISONE INJECTION RIGHT MIDDLE FINGER A1 TOD; Surgeon: Yonas Nguyen MD TUBAL LIGATION Family History Problem Relation Age of Onset Hypertension Father Asthma Father COPD Father Diabetes Father Hearing loss Father Heart disease Father Hyperlipidemia Father Osteoporosis Mother Hypertension Mother Arthritis Mother Cancer Mother (more content not included)... [facility] 06-14-2024 History of Present illness Narrative Chief Complaint Patient presents with Transition Of Care HPI: Cynthia Cisneros is a 72-year-old female presenting today for follow-up. Has PMH of anxiety, depression, arrhythmias, asthma, GERD, hyperlipidemia, hypertension, hypothyroidism, chronic sinusitis, COPD and skin squamous cell cancer. Used to follow-up since 2017 [facility] in [place], transferring care to [facility]. Afib: She has a history of paroxysmal atrial fibrillation and she has not been maintained on chronic anticoagulation. Previous testing came back negative per patient's report. Normal stress testing done 2019 Echo done in 2019 with LVEF of 65% and stage I diastolic dysfunction and trace tricuspid regurg Currently on Eliquis prophylaxis 2.5 mg twice daily COPD and asthma : Has budesonide and albuterol nebulized in addition to Bevespi and Pulmicort,which control her symptoms. 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 Former smoker quit in 2021 PFTs confirm diagnosis of asthma, following up with pulmonology. Last CT came back showing small nodules with no concerns. Osteoporosis: Unsure of the last DEXA scan she will check her records and let me know. Has been on Prolia for the last 3 years tolerating it well. DEXA scan osteoporosis 2018. Last Dexa scan was 12/2023 which showed improvement and osteopenia , currently holding off prolia , last dose was october 2023 Tripped and feel at the chiropractor office and hit her head in the back with no LOC. She was evaluated by neurosurgery, who recommended that at some point she would need to undergo a discectomy for cervical spine given her severe stenosis. The patient was seen by PT/OT and speech services, and no outpatient recommendations were recommended. The patient is stable for discharge home today. SAH CT with small SAH along the anterolateral and superior margin of the right frontal lobe rHCT 10/16 stable, following up with neurosurgery. No concerns for headaches today L2 subacute compression fx Chronic T12 compression fracture CT noted increase in L2 compression deformity Slightly increased pain since fall with movement, now endorsing right leg paresthesias Pain has been under controlled , currently doing tylenol, oxycodone but done with hospital prescription, topicals with minimal benefit. S4 subacute fracture MRI, Treatment with rest, ice, heat, will heal on own Neck pain Cervical stenosis MRI with severe stenosis at C3-4 level where there is moderate flattening of the spinal cord and edema Neurosurgery discussed she would likely benefit from a discectomy at some point, though it is not an acute issue at this time. Following up outpatient. Right hip tendonitis Right hip pain and paresthesias ROM intact, describing what sounds like sciatic pain down right leg Right hip tender to touch, ROM intact MRI showed hamstring rt sided tendonitis as well as in the gluteus minimus and moderate to severe right hip OA Past Medical History: Diagnosis Date Anemia 03/2016 Anxiety Arrhythmia Arthritis Asthma ASVD (arteriosclerotic vascular disease) Bruises easily Carpal tunnel syndrome Cataracts, bilateral Cervical cancer (HCC) 06/1991 Clostridium difficile infection 1999 COPD (chronic obstructive pulmonary disease) (HCC) Coronary artery disease Depression Diabetes mellitus (HCC) 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 Watters SINUS SURGERY 12/30/2019 balloon sinuplasty - Dr. Key SKIN BIOPSY TONSILLECTOMY TRIGGER FINGER RELEASE Right 03/24/2018 RELEASE A1 TOD LEFT MIDDLE,RING, AND SMALL FINGERS WITH CORTISONE INJECTION RIGHT MIDDLE FINGER A1 TOD; Surgeon: Yonas Nguyen MD TUBAL LIGATION Family History Problem Relation Age of Onset Hypertension Father Asthma Father COPD Father Diabetes Father Hearing loss Father Heart disease Father Hyperlipidemia Father Osteoporosis Mother Hypertension Mother Arthritis Mother Cancer Mother Heart disease Mother Heart disease Maternal Grandfather Heart disease Sister Hypertension Sister Cancer Brother Asthma Brother Diabetes Brother Anesthesia problems Neg Hx Hip fracture Neg Hx Social History Tobacco Use Smoking status: Former Current packs/day: 0.00 Average packs/day: 1.5 packs/day for 42.1 years (63.1 ttl pk-yrs) Types: Cigarettes Start date: 1979 Quit date: 09/17/2021 Years since quittin.7 Passive exposure: Past Smokeless tobacco: Never Tobacco comments: Cigarettes Vaping Use Vaping status: Never Used Substance Use Topics Alcohol use: No Drug use: No Review of Systems Vitals: 06/14/24 1419 06/14/24 1421 06/14/24 1431 BP: (!) 183/96 (!) 179/98 126/84 BP Location: Right arm Right arm Patient Position: Sitting Sitting BP Cuff Size: Adult Adult Pulse: 84 86 Resp: 16 Temp: 97.6 F (36.4 C) TempSrc: Temporal SpO2: 94% Weight: 66.7 kg (147 lb) Height: 5' 3 Estimated body mass index is 26.04 kg/m as calculated from the following: Height as of this encounter: 5' 3. Weight as of this encounter: 66.7 kg (147 lb). Physical Exam Constitutional: General: She is not in acute distress. Appearance: She is not ill-appearing. HENT: Head: Normocephalic and atraumatic. Nose: Nose normal. Mouth/Throat: Mouth: Mucous membranes are moist. Pharynx: Oropharynx is clear. No oropharyngeal exudate or posterior oropharyngeal erythema. Eyes: Extraocular Movements: Extraocular movements intact. Conjunctiva/sclera: Conjunctivae normal. Pupils: Pupils are equal, round, and reactive to light. Cardiovascular: Rate and Rhythm: Normal rate and regular rhythm. Pulses: Normal pulses. Heart sounds: Normal heart sounds. No murmur heard. No gallop. Pulmonary: Effort: Pulmonary effort is normal. Breath sounds: No wheezing, rhonchi or rales. Chest: Chest wall: No tenderness. Abdominal: General: Abdomen is flat. Bowel sounds are normal. There is no distension. Palpations: Abdomen is soft. There is no mass. Tenderness: There is no abdominal tenderness. There is no right CVA tenderness, left CVA tenderness, guarding or rebound. Musculoskeletal: General: No tenderness. Normal range of motion. Cervical back: Normal range of motion and neck supple. No rigidity. No muscular tenderness. Right lower leg: No edema. Left lower leg: No edema. Lymphadenopathy: Cervical: No cervical adenopathy. Skin: General: Skin is warm. Findings: No erythema or rash. Neurological: General: No focal deficit present. Mental Status: She is alert and oriented to person, place, and time. Sensory: No sensory deficit. Motor: No weakness. Gait: Gait normal. Psychiatric: Mood and Affect: Mood normal. Behavior: Behavior normal. Thought Content: Thought content normal. Judgment: Judgment normal. OARRS/NARxCHECK Report Received and Assessed: Sj Motley MD on 06/14/2024 5:12 PM Date controlled substance agreement signed: No data found Date of last drug screen: @Exam@ PHQ9: TADEO-7 Tobacco Counseling: Counseling given: Not Answered Tobacco comments: Cigarettes Patient's Medications New Prescriptions OXYCODONE-ACETAMINOPHEN (PERCOCET) 5-325 MG PER TABLET Take 1 (one) tablet by mouth daily as needed for pain . PREDNISONE (DELTASONE) 20 MG TABLET Take 2 (two) tablets (40 mg total) by mouth daily for 5 days . Previous Medications ACETAMINOPHEN (TYLENOL) 500 MG TABLET Take 1 (one) tablet (500 mg total) by mouth every 6 (six) hours as needed for pain THREE TIMES DAILY . ALBUTEROL (PROVENTIL) 2.5 MG /3 ML (0.083 %) NEBULIZER SOLUTION Take 3 mL (2.5 mg total) by nebulization every 6 (six) hours as needed for wheezing . ALBUTEROL 90 MCG/ACTUATION INHALER Inhale 1 (one) puff to 2 (two) puffs every 4 to 6 hours as needed . ATENOLOL (TENORMIN) 50 MG TABLET Take 1 (one) tablet (50 mg total) by mouth 2 (two) times a day . [place] SALINE GEL Apply topically 2 (two) times a day Apply a pea sized amount to both nostrils at bedtime and in a.m. You can use it more often.. BEVESPI AEROSPHERE 9-4.8 MCG HFAA Inhale 2 puffs 2 (two) times a day . BUDESONIDE (PULMICORT) 0.5 MG/2 ML NEBULIZER SOLUTION Take 2 mL (0.5 mg total) by nebulization 2 (two) times a day . CALCITRATE 200 MG (950 MG) TABLET Take 200 mg by mouth 3 (three) times a day . DESVENLAFAXINE SUCCINATE (PRISTIQ) 50 MG 24 HR TABLET Take 1 (one) tablet (50 mg total) by mouth daily . DICLOFENAC SODIUM 1% (VOLTAREN) 1 % GEL Apply topically 4 (four) times a day as needed for pain . FEXOFENADINE (LASHA) 180 MG TABLET Take 1 (one) tablet (180 mg total) by mouth daily . FISH OIL 1,200 (144-216) MG CAP Take 1 capsule by mouth 3 (three) times a day . FLUTICASONE PROPIONATE (FLONASE) 50 MCG/ACTUATION NASAL SPRAY Instill 2 (two) sprays into each nostril 2 (two) times a day . FOLIC ACID (FOLVITE) 1 MG TABLET Take 1 (one) tablet (1 mg total) by mouth daily . FUROSEMIDE (LASIX) 20 MG TABLET Take 1 (one) tablet (20 mg total) by mouth daily . GUAIFENESIN (MUCINEX) 600 MG 12 HR TABLET Take 2 (two) tablets (1,200 mg total) by mouth 2 (two) times a day . KETOCONAZOLE (NIZORAL) 2 % CREAM Apply topically daily to feet . LANSOPRAZOLE (PREVACID) 30 MG CAPSULE Take 1 capsule by mouth every morning before breakfast on an empty stomach. . LEVOTHYROXINE (SYNTHROID, LEVOTHROID) 75 MCG TABLET Take 1 (one) tablet (75 mcg total) by mouth every morning DOS . MAGNESIUM GLYCINATE 100 MG TAB Take 2.5 (two and a half) tablets (250 mg total) by mouth 2 (two) times a day . MAGNESIUM OXIDE (MAG-OX) 400 MG TABLET Take 2.5 (two and a half) tablets (1,000 mg total) by mouth nightly . METRONIDAZOLE (METROGEL) 1 % GEL Apply once daily to entire face MIRTAZAPINE (REMERON) 30 MG TABLET Take 1 (one) tablet (30 mg total) by mouth nightly Takes additional 7.5 . MIRTAZAPINE (REMERON) 7.5 MG TABLET Take 1 (one) tablet (7.5 mg total) by mouth nightly . MONTELUKAST (SINGULAIR) 10 MG TABLET Take 1 (one) tablet (10 mg total) by mouth nightly . MUPIROCIN (BACTROBAN) 2 % OINTMENT Apply topically 2 (two) times a day . NUCALA 100 MG/ML ATIN Inject 1 mL (100 mg total) under the skin every 28 days . THEREMS-M 9 MG IRON-400 MCG TAB Take 1 (one) tablet by mouth daily . UBROGEPANT (UBRELVY) 100 MG TAB Take 1 (one) tablet (100 mg total) by mouth at bedtime as needed (migraines) . VITAMIN D3 2,000 UNIT CAP Take 1 (one) capsule by mouth 2 (two) times a day . ZINC GLUCONATE 50 MG TABLET Take 1 (one) tablet (50 mg total) by mouth daily . Modified Medications No medications on file Discontinued Medications No medications on file Health Maintenance Due Topic Date Due Colorectal Cancer Screening/Monitoring Never done PT Plan of Care Never done Medicare Wellness Visit Never done Diabetic Foot Exam Never done Hepatitis C Screening Never done Mammogram Never done Diabetic Eye Exam 06/18/2023 A1C 03/18/2024 COVID-19 Vaccine ( season) 2024 Respiratory Syncytial Virus Immunization: Risk, 60-74 Risk, or 75+ (1 - 1-dose 75+ series) 2023 Low-dose CT Lung Cancer Screen 09/09/2024 Assessment & Plan Problem List Items Addressed This Visit Nervous and Auditory Subarachnoid hemorrhage (HCC) Interval improvement , asymptomatic at this time Musculoskeletal and Integument Osteoporosis Last Dexa scan was 12/2023 which showed improvement and osteopenia , currently holding off prolia , last dose was october 2023 Will discuss further management with concurrent fractures and discuss her case with endocrinology Closed compression fracture of L2 vertebra (HCC) Discussed further evaluation with pain control and extending pain regimen with percocet till neurosurgery appointment , with the hope to use it sparingly and PT to improve pain with stretching especially with concurrent right hip pain and OA Considering pain management referral I did an OARRS check with no red flags, 30 tabs of percocet were sent. Prednisone course in the setting of spinal stenosis to help Considering different osteoporosis regimen to limit those fracture will consult with endocrinology and let the patient know Relevant Medications oxyCODONE-acetaminophen (PERCOCET) 5-325 mg per tablet predniSONE (DELTASONE) 20 MG tablet Other Right hip pain - Primary PT and orthopedics referral sent Relevant Orders Ambulatory Ref to Mark/Shilpa (PT/OT/ST) Ambulatory referral to Orthopedic Surgery I spent 45 minutes with patient reviewing HPI and coordinating plan of care as well as documenting that note. My ongoing relationship with Elizabeth Cisneros requires continued responsibility and cognitive effort of being the focal point for all services related to chronic condition(s). Return in about 3 months (around 09/14/2024) for Follow Up. SJ MOTLEY MD [facility] [address] [facility] [address] [facility] [address] Dept: [phone] documented in this encounter [facility] 06-14-2024 History of Present illness Narrative Chief Complaint Patient presents with Transition Of Care HPI: Cynthia Cisneros is a 72-year-old female presenting today for follow-up. Has PMH of anxiety, depression, arrhythmias, asthma, GERD, hyperlipidemia, hypertension, hypothyroidism, chronic sinusitis, COPD and skin squamous cell cancer. Used to follow-up since 2018 [facility] in [place], transferring care to [facility]. Afib: She has a history of paroxysmal atrial fibrillation and she has not been maintained on chronic anticoagulation. Previous testing came back negative per patient's report. Normal stress testing done 2019 Echo done in 2019 with LVEF of 65% and stage I diastolic dysfunction and trace tricuspid regurg Currently on Eliquis prophylaxis 2.5 mg twice daily COPD and asthma : Has budesonide and albuterol nebulized in addition to Bevespi and Pulmicort,which control her symptoms. 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 Former smoker quit in 2021 PFTs confirm diagnosis of asthma, following up with pulmonology. Last CT came back showing small nodules with no concerns. Osteoporosis: Unsure of the last DEXA scan she will check her records and let me know. Has been on Prolia for the last 3 years tolerating it well. DEXA scan osteoporosis 2019. Last Dexa scan was 12/2023 which showed improvement and osteopenia , currently holding off prolia , last dose was october 2023 Tripped and feel at the chiropractor office and hit her head in the back with no LOC. She was evaluated by neurosurgery, who recommended that at some point she would need to undergo a discectomy for cervical spine given her severe stenosis. The patient was seen by PT/OT and speech services, and no outpatient recommendations were recommended. The patient is stable for discharge home today. SAH CT with small SAH along the anterolateral and superior margin of the right frontal lobe rHCT 06/01 stable, following up with neurosurgery. No concerns for headaches today L2 subacute compression fx Chronic T12 compression fracture CT noted increase in L2 compression deformity Slightly increased pain since fall with movement, now endorsing right leg paresthesias Pain has been under controlled , currently doing tylenol, oxycodone but done with hospital prescription, topicals with minimal benefit. S4 subacute fracture MRI, Treatment with rest, ice, heat, will heal on own Neck pain Cervical stenosis MRI with severe stenosis at C3-4 level where there is moderate flattening of the spinal cord and edema Neurosurgery discussed she would likely benefit from a discectomy at some point, though it is not an acute issue at this time. Following up outpatient. Right hip tendonitis Right hip pain and paresthesias ROM intact, describing what sounds like sciatic pain down right leg Right hip tender to touch, ROM intact MRI showed hamstring rt sided tendonitis as well as in the gluteus minimus and moderate to severe right hip OA Past Medical History: Diagnosis Date Anemia 03/2016 Anxiety Arrhythmia Arthritis Asthma ASVD (arteriosclerotic vascular disease) Bruises easily Carpal tunnel syndrome Cataracts, bilateral Cervical cancer (HCC) 06/1991 Clostridium difficile infection 1999 COPD (chronic obstructive pulmonary disease) (HCC) Coronary artery disease Depression Diabetes mellitus (HCC) 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 Watters SINUS SURGERY 12/30/2019 balloon sinuplasty - Dr. Key SKIN BIOPSY TONSILLECTOMY TRIGGER FINGER RELEASE Right 03/24/2018 RELEASE A1 TOD LEFT MIDDLE,RING, AND SMALL FINGERS WITH CORTISONE INJECTION RIGHT MIDDLE FINGER A1 TOD; Surgeon: Yonas Nguyen MD TUBAL LIGATION Family History Problem Relation Age of Onset Hypertension Father Asthma Father COPD Father Diabetes Father Hearing loss Father Heart disease Father Hyperlipidemia Father Osteoporosis Mother Hypertension Mother Arthritis Mother Cancer Mother Heart disease Mother Heart disease Maternal Grandfather Heart disease Sister Hypertension Sister Cancer Brother Asthma Brother Diabetes Brother Anesthesia problems Neg Hx Hip fracture Neg Hx Social History Tobacco Use Smoking status: Former Current packs/day: 0.00 Average packs/day: 1.5 packs/day for 42.1 years (63.1 ttl pk-yrs) Types: Cigarettes Start date: 1979 Quit date: 09/17/2021 Years since quittin.7 Passive exposure: Past Smokeless tobacco: Never Tobacco comments: Cigarettes Vaping Use Vaping status: Never Used Substance Use Topics Alcohol use: No Drug use: No Review of Systems Vitals: 06/14/24 1419 06/14/24 1421 06/14/24 1431 BP: (!) 183/96 (!) 179/98 126/84 BP Location: Right arm Right arm Patient Position: Sitting Sitting BP Cuff Size: Adult Adult Pulse: 84 86 Resp: 16 Temp: 97.6 F (36.4 C) TempSrc: Temporal SpO2: 94% Weight: 66.7 kg (147 lb) Height: 5' 3 Estimated body mass index is 26.04 kg/m as calculated from the following: Height as of this encounter: 5' 3. Weight as of this encounter: 66.7 kg (147 lb). Physical Exam Constitutional: General: She is not in acute distress. Appearance: She is not ill-appearing. HENT: Head: Normocephalic and atraumatic. Nose: Nose normal. Mouth/Throat: Mouth: Mucous membranes are moist. Pharynx: Oropharynx is clear. No oropharyngeal exudate or posterior oropharyngeal erythema. Eyes: Extraocular Movements: Extraocular movements intact. Conjunctiva/sclera: Conjunctivae normal. Pupils: Pupils are equal, round, and reactive to light. Cardiovascular: Rate and Rhythm: Normal rate and regular rhythm. Pulses: Normal pulses. Heart sounds: Normal heart sounds. No murmur heard. No gallop. Pulmonary: Effort: Pulmonary effort is normal. Breath sounds: No wheezing, rhonchi or rales. Chest: Chest wall: No tenderness. Abdominal: General: Abdomen is flat. Bowel sounds are normal. There is no distension. Palpations: Abdomen is soft. There is no mass. Tenderness: There is no abdominal tenderness. There is no right CVA tenderness, left CVA tenderness, guarding or rebound. Musculoskeletal: General: No tenderness. Normal range of motion. Cervical back: Normal range of motion and neck supple. No rigidity. No muscular tenderness. Right lower leg: No edema. Left lower leg: No edema. Lymphadenopathy: Cervical: No cervical adenopathy. Skin: General: Skin is warm. Findings: No erythema or rash. Neurological: General: No focal deficit present. Mental Status: She is alert and oriented to person, place, and time. Sensory: No sensory deficit. Motor: No weakness. Gait: Gait normal. Psychiatric: Mood and Affect: Mood normal. Behavior: Behavior normal. Thought Content: Thought content normal. Judgment: Judgment normal. OARRS/NARxCHECK Report Received and Assessed: Sj Motley MD on 06/14/2024 5:12 PM Date controlled substance agreement signed: No data found Date of last drug screen: @Exam@ PHQ9: TADEO-7 Tobacco Counseling: Counseling given: Not Answered Tobacco comments: Cigarettes Patient's Medications New Prescriptions OXYCODONE-ACETAMINOPHEN (PERCOCET) 5-325 MG PER TABLET Take 1 (one) tablet by mouth daily as needed for pain . PREDNISONE (DELTASONE) 20 MG TABLET Take 2 (two) tablets (40 mg total) by mouth daily for 5 days . Previous Medications ACETAMINOPHEN (TYLENOL) 500 MG TABLET Take 1 (one) tablet (500 mg total) by mouth every 6 (six) hours as needed for pain THREE TIMES DAILY . ALBUTEROL (PROVENTIL) 2.5 MG /3 ML (0.083 %) NEBULIZER SOLUTION Take 3 mL (2.5 mg total) by nebulization every 6 (six) hours as needed for wheezing . ALBUTEROL 90 MCG/ACTUATION INHALER Inhale 1 (one) puff to 2 (two) puffs every 4 to 6 hours as needed . ATENOLOL (TENORMIN) 50 MG TABLET Take 1 (one) tablet (50 mg total) by mouth 2 (two) times a day . AYR SALINE GEL Apply topically 2 (two) times a day Apply a pea sized amount to both nostrils at bedtime and in a.m. You can use it more often.. BEVESPI AEROSPHERE 9-4.8 MCG HFAA Inhale 2 puffs 2 (two) times a day . BUDESONIDE (PULMICORT) 0.5 MG/2 ML NEBULIZER SOLUTION Take 2 mL (0.5 mg total) by nebulization 2 (two) times a day . CALCITRATE 200 MG (950 MG) TABLET Take 200 mg by mouth 3 (three) times a day . DESVENLAFAXINE SUCCINATE (PRISTIQ) 50 MG 24 HR TABLET Take 1 (one) tablet (50 mg total) by mouth daily . DICLOFENAC SODIUM 1% (VOLTAREN) 1 % GEL Apply topically 4 (four) times a day as needed for pain . FEXOFENADINE (LASHA) 180 MG TABLET Take 1 (one) tablet (180 mg total) by mouth daily . FISH OIL 1,200 (144-216) MG CAP Take 1 capsule by mouth 3 (three) times a day . FLUTICASONE PROPIONATE (FLONASE) 50 MCG/ACTUATION NASAL SPRAY Instill 2 (two) sprays into each nostril 2 (two) times a day . FOLIC ACID (FOLVITE) 1 MG TABLET Take 1 (one) tablet (1 mg total) by mouth daily . FUROSEMIDE (LASIX) 20 MG TABLET Take 1 (one) tablet (20 mg total) by mouth daily . GUAIFENESIN (MUCINEX) 600 MG 12 HR TABLET Take 2 (two) tablets (1,200 mg total) by mouth 2 (two) times a day . KETOCONAZOLE (NIZORAL) 2 % CREAM Apply topically daily to feet . LANSOPRAZOLE (PREVACID) 30 MG CAPSULE Take 1 capsule by mouth every morning before breakfast on an empty stomach. . LEVOTHYROXINE (SYNTHROID, LEVOTHROID) 75 MCG TABLET Take 1 (one) tablet (75 mcg total) by mouth every morning DOS . MAGNESIUM GLYCINATE 100 MG TAB Take 2.5 (two and a half) tablets (250 mg total) by mouth 2 (two) times a day . MAGNESIUM OXIDE (MAG-OX) 400 MG TABLET Take 2.5 (two and a half) tablets (1,000 mg total) by mouth nightly . METRONIDAZOLE (METROGEL) 1 % GEL Apply once daily to entire face MIRTAZAPINE (REMERON) 30 MG TABLET Take 1 (one) tablet (30 mg total) by mouth nightly Takes additional 7.5 . MIRTAZAPINE (REMERON) 7.5 MG TABLET Take 1 (one) tablet (7.5 mg total) by mouth nightly . MONTELUKAST (SINGULAIR) 10 MG TABLET Take 1 (one) tablet (10 mg total) by mouth nightly . MUPIROCIN (BACTROBAN) 2 % OINTMENT Apply topically 2 (two) times a day . NUCALA 100 MG/ML ATIN Inject 1 mL (100 mg total) under the skin every 28 days . THEREMS-M 9 MG IRON-400 MCG TAB Take 1 (one) tablet by mouth daily . UBROGEPANT (UBRELVY) 100 MG TAB Take 1 (one) tablet (100 mg total) by mouth at bedtime as needed (migraines) . VITAMIN D3 2,000 UNIT CAP Take 1 (one) capsule by mouth 2 (two) times a day . ZINC GLUCONATE 50 MG TABLET Take 1 (one) tablet (50 mg total) by mouth daily . Modified Medications No medications on file Discontinued Medications No medications on file Health Maintenance Due Topic Date Due Colorectal Cancer Screening/Monitoring Never done PT Plan of Care Never done Medicare Wellness Visit Never done Diabetic Foot Exam Never done Hepatitis C Screening Never done Mammogram Never done Diabetic Eye Exam 06/18/2023 A1C 03/18/2024 COVID-19 Vaccine ( season) 2024 Respiratory Syncytial Virus Immunization: Risk, 60-74 Risk, or 75+ (1 - 1-dose 75+ series) 2023 Low-dose CT Lung Cancer Screen 09/09/2024 Assessment & Plan Problem List Items Addressed This Visit Nervous and Auditory Subarachnoid hemorrhage (HCC) Interval improvement , asymptomatic at this time Musculoskeletal and Integument Osteoporosis Last Dexa scan was 12/2023 which showed improvement and osteopenia , currently holding off prolia , last dose was october 2023 Will discuss further management with concurrent fractures and discuss her case with endocrinology Closed compression fracture of L2 vertebra (HCC) Discussed further evaluation with pain control and extending pain regimen with percocet till neurosurgery appointment , with the hope to use it sparingly and PT to improve pain with stretching especially with concurrent right hip pain and OA Considering pain management referral I did an OARRS check with no red flags, 30 tabs of percocet were sent. Prednisone course in the setting of spinal stenosis to help Considering different osteoporosis regimen to limit those fracture will consult with endocrinology and let the patient know Relevant Medications oxyCODONE-acetaminophen (PERCOCET) 5-325 mg per tablet predniSONE (DELTASONE) 20 MG tablet Other Right hip pain - Primary PT and orthopedics referral sent Relevant Orders Ambulatory Ref to Mark/Shilpa (PT/OT/ST) Ambulatory referral to Orthopedic Surgery I spent 45 minutes with patient reviewing HPI and coordinating plan of care as well as documenting that note. My ongoing relationship with Elizabeth Cisneros requires continued responsibility and cognitive effort of being the focal point for all services related to chronic condition(s). Return in about 3 months (around 09/14/2024) for Follow Up. SJ MOTLEY MD [place] [id number] [facility] [address] Dept: [phone] documented in this encounter [facility] 06-10-2024 Telephone encounter Note Last OV 12/25/23. Next OV 06/14/24. [facility] 06-10-2024 Miscellaneous Notes Last OV 12/25/23. Next OV 06/14/24. documented in this encounter [facility] 06-03-2024 History of Present illness Narrative APPOINTMENT CHANGED TO RJ Yes Currently scheduled as a MWV Images from the original note were not included. 06/03/24 0924 RJ General Info Assessment completed with: Patient Post-Discharge Call: Medications Is the patient taking all medications as directed (includes completed medication regime)? Yes Nursing Interventions Nurse provided patient education Medications reviewed with patient/caregiver? No Is the patient having any side effects they believe may be caused by any medication additions or changes? No Does the patient have all medications ordered at discharge? Yes Nursing Interventions Nurse provided patient education Appointments Does the patient have a primary care provider? Yes Does the patient have a follow up appointment scheduled related to this admission? Within 7 - 14 days Nursing Interventions Verified appointment date/time/provider Self Management Was Home Health ordered? No Was Durable Medical Equipment (DME) ordered? No Are there psychosocial issues? No (Patients son assists her when needed.) Patient Teaching Did the patient receive a copy of their discharge instructions? Yes What is the patient's perception of their health status since discharge? Improving Provided education for complications or exacerbations and when to seek emergent/urgent care? Yes Is the patient/cargiver able to teach back the hierarchy of who to call/visit for symptoms/problems? (PCP, Specialist, Home Health Nurse, Urgent Care, ED, 911) Yes Additional Teach Back Comments Patient is able to get dressed this morning. She has had her breakfast. She still feels dizzy at times. She stopped and sat down and is relaxing. When she is up moving around she gets dizzy spells. She is having memory lapses. She starts a thought and then her mind goes blank. Dr. Collier is aware of these spells. She is using a walker for ambulation. She denies any needs from RNCM. Acute CM placed an AAonA referral. She declines RNCM follow up. Did the patient feel the follow up calls were helpful during their recovery period? Yes Patient: Elizabeth Cisneros Date of : 1950 Site: [facility] Family Provider: Sj Motley MD Admit Date: 05/31/2024 Discharge Date/Time: 06/02/24 Disposition: home Clinical Summary Hospital Course: Elizabeth Cisneros is a 73 y.o. female patient of Sj Motley MD with a history of anemia, anxiety, afib not on AC, arthritis, asthma, cervical cancer, squamous cell carcinoma, COPD, Depression, CAD, prediabetes, GERD, HTN, HLD, dysphagia, hypothyroidism, chronic sinusitis, chronic pain, osteoporosis, adenoidectomy, appendectomy, left total hip, left carpal tunnel release, colon resection with ileostomy, ileostomy reversal, sinus surgery, tonsillectomy, and tubal ligation, who presented as a trauma transfer from [place] [facility] after mechanical fall at the chiropractor. She was found to have a subarachnoid hemorrhage, subacute fractures of her L2 and S4, and severe cervical spine stenosis. She was evaluated by neurosurgery, who recommended that at some point she would need to undergo a discectomy for cervical spine given her severe stenosis. The patient was seen by PT/OT and speech services, and no outpatient recommendations were recommended. The patient is stable for discharge home today. Discharge Diagnoses: SAH CT with small SAH along the anterolateral and superior margin of the right frontal lobe rHCT 06/01 stable - GCS 15, no focal deficits. - PT evaluated and had no outpatient recs - [employer] consulted for cog eval, not outpatient recs L2 subacute compression fx Chronic T12 compression fracture CT noted increase in L2 compression deformity Slightly increased pain since fall with movement, now endorsing right leg paresthesias - NOM per neurosurgery - follow up with neurosurgery already made - Pain control, PT/OT recs without outpatient needs S4 subacute fracture MRI with above Treatment with rest, ice, heat, will heal on own Neck pain Cervical stenosis MRI with severe stenosis at C3-4 level where there is moderate flattening of the spinal cord and edema - Neurosurgery discussed she would likely benefit from a discectomy at some point, though it is not an acute issue at this time -To follow-up with neurosurgery as an outpatient to discuss timing of surgery Right hip tendonitis Right hip pain and paresthesias ROM intact, describing what sounds like sciatic pain down right leg Right hip tender to touch, ROM intact - Pelvic XR on admission without acute findings - MRI this AM with tendonitis, discussed rest, heat and ice to help manage pain Cardiac arrhythmia, Afib Hx of afib, No AC/AP meds Currently NSR COPD No signs of acute exacerbation On RA Surgeries: None Consults: Procedures Consult Surgery Hospitalize Patient To : Inpatient consult to Neurosurgery Inpatient consult to Care Management Allergies: Penicillin g, Sulfa (sulfonamide antibiotics), Trazodone, Celecoxib, Levofloxacin, [place], Niacin, Sulfites, and Cephalexin Discharge Diet: Resume home diet Condition: good Discharge Medications: Discharge Medications New Medications Details oxyCODONE-acetaminophen 5-325 mg per tablet Commonly known as: PERCOCET Take 1 (one) tablet by mouth every 6 (six) hours as needed (Days supply per fill: 5) . Quantity: 12 tablet tiZANidine 4 MG capsule Commonly known as: ZANAFLEX Take 1 (one) capsule (4 mg total) by mouth 3 (three) times a day for 7 days . Quantity: 21 capsule Modified Medications Details * mirtazapine 30 MG tablet Commonly known as: REMERON Take 1 (one) tablet (30 mg total) by mouth nightly Takes additional 7.5 . Quantity: 90 tablet * mirtazapine 7.5 MG tablet Commonly known as: REMERON Take 1 (one) tablet (7.5 mg total) by mouth nightly . Quantity: 90 tablet * There are duplicate medications prescribed to the patient Medications To Continue Details acetaminophen 500 MG tablet Commonly known as: TYLENOL Take 1 (one) tablet (500 mg total) by mouth every 6 (six) hours as needed for pain THREE TIMES DAILY . * albuterol 2.5 mg /3 mL (0.083 %) nebulizer solution Commonly known as: PROVENTIL Take 3 mL (2.5 mg total) by nebulization every 6 (six) hours as needed for wheezing . Quantity: 120 mL * albuterol 90 mcg/actuation inhaler Inhale 1 (one) puff to 2 (two) puffs every 4 to 6 hours as needed . atenoloL 50 MG tablet Commonly known as: TENORMIN Take 1 (one) tablet (50 mg total) by mouth 2 (two) times a day . Quantity: 120 tablet [place] Saline Gel Generic drug: sodium chloride-aloe vera Apply topically 2 (two) times a day Apply a pea sized amount to both nostrils at bedtime and in a.m. You can use it more often.. Quantity: 14.1 g Bevespi Aerosphere 9-4.8 mcg Hfaa Generic drug: glycopyrrolate-formoteroL Inhale 2 puffs 2 (two) times a day . Quantity: 10.7 g budesonide 0.5 mg/2 mL nebulizer solution Commonly known as: PULMICORT Take 2 mL (0.5 mg total) by nebulization 2 (two) times a day . Quantity: 60 mL Calcitrate 200 mg (950 mg) tablet Generic drug: calcium citrate Take 200 mg by mouth 3 (three) times a day . desvenlafaxine succinate 50 MG 24 hr tablet Commonly known as: PRISTIQ Take 1 (one) tablet (50 mg total) by mouth daily . Quantity: 30 tablet diclofenac sodium 1% 1 % Gel Commonly known as: VOLTAREN Apply topically 4 (four) times a day as needed for pain . Quantity: 450 g fexofenadine 180 MG tablet Commonly known as: LASHA Take 1 (one) tablet (180 mg total) by mouth daily . Fish OiL 1,200 (144-216) mg Cap Generic drug: omega 8-eys-yme-fish oil Take 1 capsule by mouth 3 (three) times a day . fluticasone propionate 50 mcg/actuation nasal spray Commonly known as: FLONASE Instill 2 (two) sprays into each nostril 2 (two) times a day . Quantity: 18.2 mL folic acid 1 MG tablet Commonly known as: FOLVITE Take 1 (one) tablet (1 mg total) by mouth daily . furosemide 20 MG tablet Commonly known as: LASIX Take 1 (one) tablet (20 mg total) by mouth daily . Quantity: 90 tablet guaiFENesin 600 mg 12 hr tablet Commonly known as: MUCINEX Take 2 (two) tablets (1,200 mg total) by mouth 2 (two) times a day . ketoconazole 2 % cream Commonly known as: NIZORAL Apply topically daily to feet . lansoprazole 30 MG capsule Commonly known as: PREVACID Take 1 capsule by mouth every morning before breakfast on an empty stomach. . Quantity: 90 capsule levothyroxine 75 MCG tablet Commonly known as: SYNTHROID, LEVOTHROID Take 1 (one) tablet (75 mcg total) by mouth every morning DOS . Quantity: 90 tablet magnesium glycinate 100 mg Tab Take 2.5 (two and a half) tablets (250 mg total) by mouth 2 (two) times a day . magnesium oxide 400 mg (241.3 mg magnesium) tablet Commonly known as: MAG-OX Take 2.5 (two and a half) tablets (1,000 mg total) by mouth nightly . metroNIDAZOLE 1 % gel Commonly known as: METROGEL Apply once daily to entire face montelukast 10 mg tablet Commonly known as: SINGULAIR Take 1 (one) tablet (10 mg total) by mouth nightly . Quantity: 30 tablet mupirocin 2 % ointment Commonly known as: BACTROBAN Apply topically 2 (two) times a day . Quantity: 22 g Nucala 100 mg/mL Atin Generic drug: mepolizumab Inject 1 mL (100 mg total) under the skin every 28 days . Quantity: 3 mL Therems-M 9 mg iron-400 mcg Tab Generic drug: rqjcrnpu-ijvq-SN-calcium-mins Take 1 (one) tablet by mouth daily . Ubrelvy 100 mg Tab Generic drug: ubrogepant Take 1 (one) tablet (100 mg total) by mouth at bedtime as needed (migraines) . Quantity: 10 tablet Vitamin D3 50 mcg (2,000 unit) Cap Generic drug: cholecalciferol (vitamin D3) Take 1 (one) capsule by mouth 2 (two) times a day . zinc gluconate 50 mg tablet Take 1 (one) tablet (50 mg total) by mouth daily . * There are duplicate medications prescribed to the patient Stopped Medications metaxalone 800 MG tablet Commonly known as: SKELAXIN Physician(s) Family Provider: Sj Motley MD, Address: [address] [place] [address] / [place] [id number] Follow Up: Luis Eduardo Collier MD [address] [place] [address] Follow up in 3 week(s) Sj Motley MD [address] [place] [address] Future Appointments Date Time Provider Department Center 06/13/2024 2:30 PM Luis Eduardo Collier MD [facility] NS GLSN 06/14/2024 2:00 PM Sj Motley MD [facility] PCPOHWAY [facility] 06/15/2024 1:30 PM Miriam Cerna, TIRE RECAPPER [facility] PSY BLG [facility] 08/29/2024 2:00 PM Brittany Koenig, Christine [facility] ENT GLE2 [facility] documented in this encounter [facility] 06-03-2024 Note Yes AUTHENTICATED BY SJ MOTLEY, ON 06/03/2024 12:42:56 [facility] 06-03-2024 History of Present illness Narrative Yes Currently scheduled as a MWV Images from the original note were not included. 06/03/24 0924 RJ General Info Assessment completed with: Patient Post-Discharge Call: Medications Is the patient taking all medications as directed (includes completed medication regime)? Yes Nursing Interventions Nurse provided patient education Medications reviewed with patient/caregiver? No Is the patient having any side effects they believe may be caused by any medication additions or changes? No Does the patient have all medications ordered at discharge? Yes Nursing Interventions Nurse provided patient education Appointments Does the patient have a primary care provider? Yes Does the patient have a follow up appointment scheduled related to this admission? Within 7 - 14 days Nursing Interventions Verified appointment date/time/provider Self Management Was Home Health ordered? No Was Durable Medical Equipment (DME) ordered? No Are there psychosocial issues? No (Patients son assists her when needed.) Patient Teaching Did the patient receive a copy of their discharge instructions? Yes What is the patient's perception of their health status since discharge? Improving Provided education for complications or exacerbations and when to seek emergent/urgent care? Yes Is the patient/cargiver able to teach back the hierarchy of who to call/visit for symptoms/problems? (PCP, Specialist, Home Health Nurse, Urgent Care, ED, 911) Yes Additional Teach Back Comments Patient is able to get dressed this morning. She has had her breakfast. She still feels dizzy at times. She stopped and sat down and is relaxing. When she is up moving around she gets dizzy spells. She is having memory lapses. She starts a thought and then her mind goes blank. Dr. Collier is aware of these spells. She is using a walker for ambulation. She denies any needs from RNCM. Acute CM placed an AAonA referral. She declines RNCM follow up. Did the patient feel the follow up calls were helpful during their recovery period? Yes Patient: Elizabeth Cisneros Date of : 1950 Site: [facility] Provider: Sj Motley MD Admit Date: 05/31/2024 Discharge Date/Time: 06/02/24 Disposition: home Clinical Summary Hospital Course: Elizabeth Cisneros is a 73 y.o. female patient of Sj Motley MD with a history of anemia, anxiety, afib not on AC, arthritis, asthma, cervical cancer, squamous cell carcinoma, COPD, Depression, CAD, prediabetes, GERD, HTN, HLD, dysphagia, hypothyroidism, chronic sinusitis, chronic pain, osteoporosis, adenoidectomy, appendectomy, left total hip, left carpal tunnel release, colon resection with ileostomy, ileostomy reversal, sinus surgery, tonsillectomy, and tubal ligation, who presented as a trauma transfer from [place] ED after mechanical fall at the chiropractor. She was found to have a subarachnoid hemorrhage, subacute fractures of her L2 and S4, and severe cervical spine stenosis. She was evaluated by neurosurgery, who recommended that at some point she would need to undergo a discectomy for cervical spine given her severe stenosis. The patient was seen by PT/OT and speech services, and no outpatient recommendations were recommended. The patient is stable for discharge home today. Discharge Diagnoses: SAH CT with small SAH along the anterolateral and superior margin of the right frontal lobe rHCT 06/01 stable - GCS 15, no focal deficits. - PT evaluated and had no outpatient recs - [employer] consulted for cog eval, not outpatient recs L2 subacute compression fx Chronic T12 compression fracture CT noted increase in L2 compression deformity Slightly increased pain since fall with movement, now endorsing right leg paresthesias - NOM per neurosurgery - follow up with neurosurgery already made - Pain control, PT/OT recs without outpatient needs S4 subacute fracture MRI with above Treatment with rest, ice, heat, will heal on own Neck pain Cervical stenosis MRI with severe stenosis at C3-4 level where there is moderate flattening of the spinal cord and edema - Neurosurgery discussed she would likely benefit from a discectomy at some point, though it is not an acute issue at this time -To follow-up with neurosurgery as an outpatient to discuss timing of surgery Right hip tendonitis Right hip pain and paresthesias ROM intact, describing what sounds like sciatic pain down right leg Right hip tender to touch, ROM intact - Pelvic XR on admission without acute findings - MRI this AM with tendonitis, discussed rest, heat and ice to help manage pain Cardiac arrhythmia, Afib Hx of afib, No AC/AP meds Currently NSR COPD No signs of acute exacerbation On RA Surgeries: None Consults: Procedures Consult Surgery Hospitalize Patient To : Inpatient consult to Neurosurgery Inpatient consult to Care Management Allergies: Penicillin g, Sulfa (sulfonamide antibiotics), Trazodone, Celecoxib, Levofloxacin, [place], Niacin, Sulfites, and Cephalexin Discharge Diet: Resume home diet Condition: good Discharge Medications: Discharge Medications New Medications Details oxyCODONE-acetaminophen 5-325 mg per tablet Commonly known as: PERCOCET Take 1 (one) tablet by mouth every 6 (six) hours as needed (Days supply per fill: 5) . Quantity: 12 tablet tiZANidine 4 MG capsule Commonly known as: ZANAFLEX Take 1 (one) capsule (4 mg total) by mouth 3 (three) times a day for 7 days . Quantity: 21 capsule Modified Medications Details * mirtazapine 30 MG tablet Commonly known as: REMERON Take 1 (one) tablet (30 mg total) by mouth nightly Takes additional 7.5 . Quantity: 90 tablet * mirtazapine 7.5 MG tablet Commonly known as: REMERON Take 1 (one) tablet (7.5 mg total) by mouth nightly . Quantity: 90 tablet * There are duplicate medications prescribed to the patient Medications To Continue Details acetaminophen 500 MG tablet Commonly known as: TYLENOL Take 1 (one) tablet (500 mg total) by mouth every 6 (six) hours as needed for pain THREE TIMES DAILY . * albuterol 2.5 mg /3 mL (0.083 %) nebulizer solution Commonly known as: PROVENTIL Take 3 mL (2.5 mg total) by nebulization every 6 (six) hours as needed for wheezing . Quantity: 120 mL * albuterol 90 mcg/actuation inhaler Inhale 1 (one) puff to 2 (two) puffs every 4 to 6 hours as needed . atenoloL 50 MG tablet Commonly known as: TENORMIN Take 1 (one) tablet (50 mg total) by mouth 2 (two) times a day . Quantity: 120 tablet [place] Saline Gel Generic drug: sodium chloride-aloe vera Apply topically 2 (two) times a day Apply a pea sized amount to both nostrils at bedtime and in a.m. You can use it more often.. Quantity: 14.1 g Bevespi Aerosphere 9-4.8 mcg Hfaa Generic drug: glycopyrrolate-formoteroL Inhale 2 puffs 2 (two) times a day . Quantity: 10.7 g budesonide 0.5 mg/2 mL nebulizer solution Commonly known as: PULMICORT Take 2 mL (0.5 mg total) by nebulization 2 (two) times a day . Quantity: 60 mL Calcitrate 200 mg (950 mg) tablet Generic drug: calcium citrate Take 200 mg by mouth 3 (three) times a day . desvenlafaxine succinate 50 MG 24 hr tablet Commonly known as: PRISTIQ Take 1 (one) tablet (50 mg total) by mouth daily . Quantity: 30 tablet diclofenac sodium 1% 1 % Gel Commonly known as: VOLTAREN Apply topically 4 (four) times a day as needed for pain . Quantity: 450 g fexofenadine 180 MG tablet Commonly known as: LASHA Take 1 (one) tablet (180 mg total) by mouth daily . Fish OiL 1,200 (144-216) mg Cap Generic drug: omega 4-mdo-dbc-fish oil Take 1 capsule by mouth 3 (three) times a day . fluticasone propionate 50 mcg/actuation nasal spray Commonly known as: FLONASE Instill 2 (two) sprays into each nostril 2 (two) times a day . Quantity: 18.2 mL folic acid 1 MG tablet Commonly known as: FOLVITE Take 1 (one) tablet (1 mg total) by mouth daily . furosemide 20 MG tablet Commonly known as: LASIX Take 1 (one) tablet (20 mg total) by mouth daily . Quantity: 90 tablet guaiFENesin 600 mg 12 hr tablet Commonly known as: MUCINEX Take 2 (two) tablets (1,200 mg total) by mouth 2 (two) times a day . ketoconazole 2 % cream Commonly known as: NIZORAL Apply topically daily to feet . lansoprazole 30 MG capsule Commonly known as: PREVACID Take 1 capsule by mouth every morning before breakfast on an empty stomach. . Quantity: 90 capsule levothyroxine 75 MCG tablet Commonly known as: SYNTHROID, LEVOTHROID Take 1 (one) tablet (75 mcg total) by mouth every morning DOS . Quantity: 90 tablet magnesium glycinate 100 mg Tab Take 2.5 (two and a half) tablets (250 mg total) by mouth 2 (two) times a day . magnesium oxide 400 mg (241.3 mg magnesium) tablet Commonly known as: MAG-OX Take 2.5 (two and a half) tablets (1,000 mg total) by mouth nightly . metroNIDAZOLE 1 % gel Commonly known as: METROGEL Apply once daily to entire face montelukast 10 mg tablet Commonly known as: SINGULAIR Take 1 (one) tablet (10 mg total) by mouth nightly . Quantity: 30 tablet mupirocin 2 % ointment Commonly known as: BACTROBAN Apply topically 2 (two) times a day . Quantity: 22 g Nucala 100 mg/mL Atin Generic drug: mepolizumab Inject 1 mL (100 mg total) under the skin every 28 days . Quantity: 3 mL Therems-M 9 mg iron-400 mcg Tab Generic drug: zexiqfab-nyso-EL-calcium-mins Take 1 (one) tablet by mouth daily . Ubrelvy 100 mg Tab Generic drug: ubrogepant Take 1 (one) tablet (100 mg total) by mouth at bedtime as needed (migraines) . Quantity: 10 tablet Vitamin D3 50 mcg (2,000 unit) Cap Generic drug: cholecalciferol (vitamin D3) Take 1 (one) capsule by mouth 2 (two) times a day . zinc gluconate 50 mg tablet Take 1 (one) tablet (50 mg total) by mouth daily . * There are duplicate medications prescribed to the patient Stopped Medications metaxalone 800 MG tablet Commonly known as: SKGARRYXIN Physician(s) Family Provider: Sj Motley MD, Address: [address] [place] [address] / [facility] [address] Follow Up: Luis Eduardo Collier MD [address] [place], [place] [id number] Follow up in 3 week(s) Sj Motley MD [address] [place] [id number] Future Appointments Date Time Provider Department Center 06/13/2024 2:30 PM Luis Eduardo Collier MD [facility] NS GLSN MH 06/14/2024 2:00 PM Sj Motley MD [facility] PCPOHWAY [facility] 06/15/2024 1:30 PM Miriam Cerna, TIRE RECAPPER [facility] PSY BLG [facility] 08/29/2024 2:00 PM Brittany Koenig AuD [facility] ENT GLE2 [facility] documented in this encounter [facility] 06-02-2024 Note [facility]02[facility]20[facility] Tele[facility] encounter Note 06/15/24@1:30 [facility] 05-31-2024 Miscellaneous Notes 06/15/24@1:30 documented in this encounter [facility] 04-28-2024 Telephone encounter Note Last OV 12/25/23. Next OV 06/14/24. [facility] 04-28-2024 Miscellaneous Notes Last OV 12/25/23. Next OV 06/14/24. documented in this encounter [facility] 03-28-2024 Telephone encounter Note Last OV 12/25/23. Next OV 06/14/24. [facility] 03-28-2024 Miscellaneous Notes Last OV 12/25/23. Next OV 06/14/24. documented in this encounter [facility] 03-02-2024 History of Present illness Narrative Associated Order(s): LG Jt Injection/Arthrocentesis: R knee; LG Jt Injection/Arthrocentesis: L knee Post-Procedure Diagnose(s): Chondrocalcinosis of right knee; Chondrocalcinosis of left knee [facility] [address] [facility] [address] [facility] [id number] Cynthia Cisneros returns to the office today for bilateral knee pain and also to review her MRI of the left shoulder. She has been having pain in both knees, the right seems to be worse than the left. She denies any injury. She will have occasional sharp pain in the knee which then does seem to resolve. She is also having feelings of instability in both knees. The patient's past medical history, surgical history, social history, family history, medications and allergies were reviewed with the patient today and are available in the chart for further review. Allergies Allergen Reactions Penicillin G Hives, Shortness Of Breath and Swelling Sulfa (Sulfonamide Antibiotics) Hives, Shortness Of Breath and Swelling Trazodone Hives and Shortness Of Breath Celecoxib Hives Difficulty breathing, swelling Levofloxacin GI Intolerance Nausea and vomiting. [place] Diarrhea Other reaction(s): Vomiting Niacin Unknown Sulfites Wheat Containing Prod Other (See Comments) Cephalexin Rash Current Outpatient Medications: acetaminophen (TYLENOL) 500 MG tablet, Take 1 (one) tablet (500 mg total) by mouth every 6 (six) hours as needed for pain THREE TIMES DAILY ., Disp: , Rfl: albuterol (PROVENTIL) 2.5 mg /3 mL (0.083 %) nebulizer solution, Take 3 mL (2.5 mg total) by nebulization every 6 (six) hours as needed for wheezing ., Disp: 120 mL, Rfl: 12 atenoloL (TENORMIN) 50 MG tablet, Take 1 (one) tablet (50 mg total) by mouth 2 (two) times a day ., Disp: 90 tablet, Rfl: 1 atogepant (Qulipta) 60 mg Tab, Take 1 (one) tablet (60 mg total) by mouth daily ., Disp: 30 tablet, Rfl: 11 [place] Saline Gel, Apply topically 2 (two) times a day Apply a pea sized amount to both nostrils at bedtime and in a.m. You can use it more often.., Disp: 14.1 g, Rfl: 12 Bevespi Aerosphere 9-4.8 mcg HFAA, Inhale 2 puffs 2 (two) times a day ., Disp: 10.7 g, Rfl: 11 budesonide (PULMICORT) 0.5 mg/2 mL nebulizer solution, Take 2 mL (0.5 mg total) by nebulization 2 (two) times a day ., Disp: 60 mL, Rfl: 11 CALCITRATE 200 mg (950 mg) tablet, Take 200 mg by mouth 3 (three) times a day ., Disp: , Rfl: 0 desvenlafaxine succinate (PRISTIQ) 50 MG 24 hr tablet, Take 1 (one) tablet (50 mg total) by mouth daily ., Disp: 30 tablet, Rfl: 2 doxepin (SINEQUAN) 100 MG capsule, , Disp: , Rfl: Fish OiL 1,200 (144-216) mg cap, Take 1 capsule by mouth 3 (three) times a day ., Disp: , Rfl: fluticasone propionate (FLONASE) 50 mcg/actuation nasal spray, Instill 2 (two) sprays into each nostril 2 (two) times a day ., Disp: 18.2 mL, Rfl: 3 folic acid (FOLVITE) 1 MG tablet, Take 1.5 (one and a half) tablets (1.5 mg total) by mouth daily ., Disp: , Rfl: furosemide (LASIX) 20 MG tablet, Take 1 (one) tablet (20 mg total) by mouth daily ., Disp: 90 tablet, Rfl: 1 guaiFENesin (MUCINEX) 600 mg 12 hr tablet, Take 2 (two) tablets (1,200 mg total) by mouth 2 (two) times a day ., Disp: , Rfl: ketoconazole (NIZORAL) 2 % cream, Apply topically daily to feet ., Disp: , Rfl: lansoprazole (PREVACID) 30 MG capsule, Take 1 capsule by mouth every morning before breakfast on an empty stomach. ., Disp: 90 capsule, Rfl: 3 levothyroxine (SYNTHROID, LEVOTHROID) 75 MCG tablet, Take 1 (one) tablet (75 mcg total) by mouth every morning DOS ., Disp: 90 tablet, Rfl: 1 magnesium oxide (MAG-OX) 400 mg tablet, Take 2.5 (two and a half) tablets (1,000 mg total) by mouth nightly ., Disp: , Rfl: metroNIDAZOLE (METROGEL) 1 % gel, Apply once daily to entire face, Disp: , Rfl: mirtazapine (REMERON) 30 MG tablet, Take 1 (one) tablet (30 mg total) by mouth nightly Takes additional 7.5 ., Disp: 90 tablet, Rfl: 0 mirtazapine (REMERON) 7.5 MG tablet, Take 1 (one) tablet (7.5 mg total) by mouth nightly ., Disp: 90 tablet, Rfl: 0 mupirocin (BACTROBAN) 2 % ointment, Apply topically 2 (two) times a day ., Disp: 22 g, Rfl: 0 Nucala 100 mg/mL AtIn, Inject 1 mL (100 mg total) under the skin every 28 days ., Disp: 3 mL, Rfl: 11 omega-3 fatty acids-fish oil 360-1,200 mg cap, Daily ., Disp: 90 capsule, Rfl: 1 Prolia 60 mg/mL Syrg, Inject 60 (sixty) mg under the skin once Q 6 months for 1 dose., Disp: , Rfl: Therems-M 9 mg iron-400 mcg Tab, Take 1 (one) tablet by mouth daily ., Disp: , Rfl: ubrogepant (Ubrelvy) 100 mg Tab, Take 1 (one) tablet (100 mg total) by mouth at bedtime as needed (migraines) ., Disp: 10 tablet, Rfl: 3 VITAMIN D3 2,000 unit cap, Take 1 (one) capsule by mouth 2 (two) times a day ., Disp: , Rfl: 0 zinc gluconate 50 mg tablet, Take 1 (one) tablet (50 mg total) by mouth daily ., Disp: , Rfl: Past Medical History: Diagnosis Date Anemia 03/2016 Anxiety 09/2002 General anxiety disorder Arrhythmia Arthritis Asthma Bruises easily Cancer (HCC) 06/1991 Cervical cancer Clostridium difficile infection 1999 COPD (chronic obstructive pulmonary disease) (HCC) Diagnosed several years ago Coronary artery disease Depression Diabetes mellitus (HCC) Borderline GERD (gastroesophageal reflux disease) 05/20/2016 Heart murmur Hyperlipidemia Hypertension Hypothyroidism (acquired) 05/20/2016 Injury of back Osteoporosis 11/25/2022 Squamous cell skin cancer Valvular disease MVP Past Surgical History: Procedure Laterality Date ADENOIDECTOMY 1994 APPENDECTOMY ARTHROPLASTY HIP ROBOTIC EUGENE Left 10/21/2021 Procedure: Left Total Hip Replacement Robotic; Surgeon: Jovanna Valencia MD; Location: Main OR; Service: Ortho-Robotics CARPAL TUNNEL RELEASE Left CATARACT EXTRACTION W/ INTRAOCULAR LENS IMPLANT Bilateral COLON SURGERY WITH ILEOSTOMY CORE DECOMPRESSION OF LEFT FEMEROL HEAD EYE SURGERY Bilateral LASER TO EYES FOR GLAUCOMA HANDS, DUPYTRENS, TRIGGER FINGER, CARPAL TUNNEL Right HYSTERECTOMY 1990 ILEOSTOMY REVERSAL INDEX FINGER SURGERY Right JOINT REPLACEMENT MUSCLE BIOPSY ROTATOR CUFF REPAIR Left SINUS SURGERY January 2018 and nik bullosa resection - Dr. Watters SINUS SURGERY 12/30/2019 balloon sinuplasty - Dr. Key SKIN BIOPSY TONSILLECTOMY TRIGGER FINGER RELEASE Right 03/24/2018 Procedure: RELEASE A1 TOD LEFT MIDDLE,RING, AND SMALL FINGERS WITH CORTISONE INJECTION RIGHT MIDDLE FINGER A1 TOD; Surgeon: Yonas Nguyen MD; Location: [facility] Main OR; Service: Hand TUBAL LIGATION Social History Socioeconomic History Marital status: Single Tobacco Use Smoking status: Former Current packs/day: 0.00 Average packs/day: 1.5 packs/day for 42.1 years (63.1 ttl pk-yrs) Types: Cigarettes Start date: 1979 Quit date: 09/17/2021 Years since quittin.4 Passive exposure: Past Smokeless tobacco: Never Tobacco comments: Cigarettes Vaping Use Vaping status: Never Used Substance and Sexual Activity Alcohol use: No Drug use: No Sexual activity: Not Currently control/protection: Pill, Diaphragm, I.U.D., Surgical Comment: hysterectomy at age 39 ROS: Review of Systems Musculoskeletal: Positive for arthralgias, joint swelling and myalgias. PE: Physical Exam Musculoskeletal: Right knee: No effusion. Instability Tests: Medial Mazin test negative and lateral Mazin test negative. Left knee: No effusion. Instability Tests: Medial Mazin test negative and lateral Mazin test negative. ORTHO: Right Knee Exam Tenderness The patient is experiencing tenderness in the medial joint line and lateral joint line. Range of Motion Extension: normal Flexion: 130 Tests Mazin: Medial - negative Lateral - negative Varus: negative Valgus: negative Angelina: Anterior - negative Drawer: Anterior - negative Other Erythema: absent Scars: absent Sensation: normal Pulse: present Swelling: mild Effusion: no effusion present Left Knee Exam Tenderness The patient is experiencing tenderness in the medial joint line and lateral joint line. Range of Motion Extension: normal Flexion: 130 Tests Mazin: Medial - negative Lateral - negative Varus: negative Valgus: negative Angelina: Anterior - negative Drawer: Anterior - negative Other Erythema: absent Scars: absent Sensation: normal Pulse: present Swelling: mild Effusion: no effusion present Imaging: B/L Knees:No acute fracture or dislocation. Moderate tri-compartmental degenerative changes, bilaterally. Chondrocalcinosis bilaterally, right greater than left. MRI L Shoulder: Partial-thickness tearing of the long biceps tendon in the bicipital groove associated with a high-grade partial-thickness tear of the subscapularis tendon measuring approximate 1.4 cm. Motion degradation throughout this study. Advanced supraspinatus tendinosis with possible low-grade undersurface fraying seen including degenerative subcortical cystic change in the underlying greater tuberosity. Mild subacromial subdeltoid bursal edema. Assessment/Plan: After examination and reviewing of the patient x-ray and MRI images, we discussed treatment options for both the shoulder and the knees. I am going to have Dr. Valencia review the MRI and contact the patient with his recommendations. I did offer her cortisone injections to both knees which she gladly accepted. I did this without complications and she tolerated this well. She is able to have these every 3 months if needed. She is to continue with otc pain medications as needed. I will see her back as needed. LG Jt Injection/Arthrocentesis: R knee Performed by: Charly Dias CNP Authorized by: Charly Dias CNP CPT 12835 - Large Joint Arthrocentesis: Consent given by: Patient Time out: Immediately prior to the procedure a time out was called Physician or proceduralist has discussed critical or nonroutine steps, procedure duration and anticipated blood loss: Yes Supporting Documentation: Indications: Pain, joint swelling and diagnostic evaluation Procedure Details: Location: Knee Site: R knee Prep: patient was prepped and draped in usual sterile fashion Needle size: 22 G Approach: Anterolateral Medications: 40 mg triamcinolone acetonide 40 mg/mL Anesthetic used: Lidocaine 1% Anesthetic amount (mL): 2 Patient tolerance: Patient tolerated the procedure well with no immediate complications LG Jt Injection/Arthrocentesis: L knee Performed by: Charly Dias CNP Authorized by: Charly Dias CNP CPT 67234 - Large Joint Arthrocentesis: Consent given by: Patient Time out: Immediately prior to the procedure a time out was called Physician or proceduralist has discussed critical or nonroutine steps, procedure duration and anticipated blood loss: Yes Supporting Documentation: Indications: Pain and diagnostic evaluation Procedure Details: Location: Knee Site: L knee Prep: patient was prepped and draped in usual sterile fashion Needle size: 22 G Approach: Anterolateral Medications: 40 mg triamcinolone acetonide 40 mg/mL Anesthetic used: Lidocaine 1% Anesthetic amount (mL): 2 Patient tolerance: Patient tolerated the procedure well with no immediate complications documented in this encounter [facility] 03-02-2024 Note [address] [address] [facility] [address] [facility] [place] [id number] No chief complaint on file. Cynthia Cisneros returns to the office today for The patient's past medical history, surgical history, social history, family history, medications and allergies were reviewed with the patient today and are available in the chart for further review. Allergies Allergen Reactions Penicillin G Hives, Shortness Of Breath and Swelling Sulfa (Sulfonamide Antibiotics) Hives, Shortness Of Breath and Swelling Trazodone Hives and Shortness Of Breath Celecoxib Hives Difficulty breathing, swelling Levofloxacin GI Intolerance Nausea and vomiting. [place] Diarrhea Other reaction(s): Vomiting Niacin Unknown Sulfites Wheat Containing Prod Other (See Comments) Cephalexin Rash Current Outpatient Medications: acetaminophen (TYLENOL) 500 MG tablet, Take 1 (one) tablet (500 mg total) by mouth every 6 (six) hours as needed for pain THREE TIMES DAILY ., Disp: , Rfl: albuterol (PROVENTIL) 2.5 mg /3 mL (0.083 %) nebulizer solution, Take 3 mL (2.5 mg total) by nebulization every 6 (six) hours as needed for wheezing ., Disp: 120 mL, Rfl: 12 atenoloL (TENORMIN) 50 MG tablet, Take 1 (one) tablet (50 mg total) by mouth 2 (two) times a day ., Disp: 90 tablet, Rfl: 1 atogepant (Qulipta) 60 mg Tab, Take 1 (one) tablet (60 mg total) by mouth daily ., Disp: 30 tablet, Rfl: 11 [place] Saline Gel, Apply topically 2 (two) times a day Apply a pea sized amount to both nostrils at bedtime and in a.m. You can use it more often.., Disp: 14.1 g, Rfl: 12 Bevespi Aerosphere 9-4.8 mcg HFAA, Inhale 2 puffs 2 (two) times a day ., Disp: 10.7 g, Rfl: 11 budesonide (PULMICORT) 0.5 mg/2 mL nebulizer solution, Take 2 mL (0.5 mg total) by nebulization 2 (two) times a day ., Disp: 60 mL, Rfl: 11 CALCITRATE 200 mg (950 mg) tablet, Take 200 mg by mouth 3 (three) times a day ., Disp: , Rfl: 0 desvenlafaxine succinate (PRISTIQ) 50 MG 24 hr tablet, Take 1 (one) tablet (50 mg total) by mouth daily ., Disp: 30 tablet, Rfl: 2 doxepin (SINEQUAN) 100 MG capsule, , Disp: , Rfl: Fish OiL 1,200 (144-216) mg cap, Take 1 capsule by mouth 3 (three) times a day ., Disp: , Rfl: fluticasone propionate (FLONASE) 50 mcg/actuation nasal spray, Instill 2 (two) sprays into each nostril 2 (two) times a day ., Disp: 18.2 mL, Rfl: 3 folic acid (FOLVITE) 1 MG tablet, Take 1.5 (one and a half) tablets (1.5 mg total) by mouth daily ., Disp: , Rfl: furosemide (LASIX) 20 MG tablet, Take 1 (one) tablet (20 mg total) by mouth daily ., Disp: 90 tablet, Rfl: 1 guaiFENesin (MUCINEX) 600 mg 12 hr tablet, Take 2 (two) tablets (1,200 mg total) by mouth 2 (two) times a day ., Disp: , Rfl: ketoconazole (NIZORAL) 2 % cream, Apply topically daily to feet ., Disp: , Rfl: lansoprazole (PREVACID) 30 MG capsule, Take 1 capsule by mouth every morning before breakfast on an empty stomach. ., Disp: 90 capsule, Rfl: 3 levothyroxine (SYNTHROID, LEVOTHROID) 75 MCG tablet, Take 1 (one) tablet (75 mcg total) by mouth every morning DOS ., Disp: 90 tablet, Rfl: 1 magnesium oxide (MAG-OX) 400 mg tablet, Take 2.5 (two and a half) tablets (1,000 mg total) by mouth nightly ., Disp: , Rfl: metroNIDAZOLE (METROGEL) 1 % gel, Apply once daily to entire face, Disp: , Rfl: mirtazapine (REMERON) 30 MG tablet, Take 1 (one) tablet (30 mg total) by mouth nightly Takes additional 7.5 ., Disp: 90 tablet, Rfl: 0 mirtazapine (REMERON) 7.5 MG tablet, Take 1 (one) tablet (7.5 mg total) by mouth nightly ., Disp: 90 tablet, Rfl: 0 mupirocin (BACTROBAN) 2 % ointment, Apply topically 2 (two) times a day ., Disp: 22 g, Rfl: 0 Nucala 100 mg/mL AtIn, Inject 1 mL (100 mg total) under the skin every 28 days ., Disp: 3 mL, Rfl: 11 omega-3 fatty acids-fish oil 360-1,200 mg cap, Daily ., Disp: 90 capsule, Rfl: 1 Prolia 60 mg/mL Syrg, Inject 60 (sixty) mg under the skin once Q 6 months for 1 dose., Disp: , Rfl: Therems-M 9 mg iron-400 mcg Tab, Take 1 (one) tablet by mouth daily ., Disp: , Rfl: ubrogepant (Ubrelvy) 100 mg Tab, Take 1 (one) tablet (100 mg total) by mouth at bedtime as needed (migraines) ., Disp: 10 tablet, Rfl: 3 VITAMIN D3 2,000 unit cap, Take 1 (one) capsule by mouth 2 (two) times a day ., Disp: , Rfl: 0 zinc gluconate 50 mg tablet, Take 1 (one) tablet (50 mg total) by mouth daily ., Disp: , Rfl: Past Medical History: Diagnosis Date Anemia 03/2016 Anxiety 09/2002 General anxiety disorder Arrhythmia Arthritis Asthma Bruises easily Cancer (HCC) 06/1991 Cervical cancer Clostridium difficile infection 1999 COPD (chronic obstructive pulmonary disease) ([facility]) Diagnosed several years ago Coronary artery disease Depression Diabetes mellitus (HCC) Borderline GERD (gastroesophageal reflux disease) 05/20/2016 Heart murmur Hyperlipidemia Hypertension Hypothyroidism (acquired) 05/20/2016 Injury of back (more content not included)... [facility] 03-02-2024 Note [facility] [address] [facility] [address] [facility] [place] [id number] Cynthia Cisneros returns to the office today for bilateral knee pain and also to review her MRI of the left shoulder. She has been having pain in both knees, the right seems to be worse than the left. She denies any injury. She will have occasional sharp pain in the knee which then does seem to resolve. She is also having feelings of instability in both knees. The patient's past medical history, surgical history, social history, family history, medications and allergies were reviewed with the patient today and are available in the chart for further review. Allergies Allergen Reactions Penicillin G Hives, Shortness Of Breath and Swelling Sulfa (Sulfonamide Antibiotics) Hives, Shortness Of Breath and Swelling Trazodone Hives and Shortness Of Breath Celecoxib Hives Difficulty breathing, swelling Levofloxacin GI Intolerance Nausea and vomiting. [place] Diarrhea Other reaction(s): Vomiting Niacin Unknown Sulfites Wheat Containing Prod Other (See Comments) Cephalexin Rash Current Outpatient Medications: acetaminophen (TYLENOL) 500 MG tablet, Take 1 (one) tablet (500 mg total) by mouth every 6 (six) hours as needed for pain THREE TIMES DAILY ., Disp: , Rfl: albuterol (PROVENTIL) 2.5 mg /3 mL (0.083 %) nebulizer solution, Take 3 mL (2.5 mg total) by nebulization every 6 (six) hours as needed for wheezing ., Disp: 120 mL, Rfl: 12 atenoloL (TENORMIN) 50 MG tablet, Take 1 (one) tablet (50 mg total) by mouth 2 (two) times a day ., Disp: 90 tablet, Rfl: 1 atogepant (Qulipta) 60 mg Tab, Take 1 (one) tablet (60 mg total) by mouth daily ., Disp: 30 tablet, Rfl: 11 [place] Saline Gel, Apply topically 2 (two) times a day Apply a pea sized amount to both nostrils at bedtime and in a.m. You can use it more often.., Disp: 14.1 g, Rfl: 12 Bevespi Aerosphere 9-4.8 mcg HFAA, Inhale 2 puffs 2 (two) times a day ., Disp: 10.7 g, Rfl: 11 budesonide (PULMICORT) 0.5 mg/2 mL nebulizer solution, Take 2 mL (0.5 mg total) by nebulization 2 (two) times a day ., Disp: 60 mL, Rfl: 11 CALCITRATE 200 mg (950 mg) tablet, Take 200 mg by mouth 3 (three) times a day ., Disp: , Rfl: 0 desvenlafaxine succinate (PRISTIQ) 50 MG 24 hr tablet, Take 1 (one) tablet (50 mg total) by mouth daily ., Disp: 30 tablet, Rfl: 2 doxepin (SINEQUAN) 100 MG capsule, , Disp: , Rfl: Fish OiL 1,200 (144-216) mg cap, Take 1 capsule by mouth 3 (three) times a day ., Disp: , Rfl: fluticasone propionate (FLONASE) 50 mcg/actuation nasal spray, Instill 2 (two) sprays into each nostril 2 (two) times a day ., Disp: 18.2 mL, Rfl: 3 folic acid (FOLVITE) 1 MG tablet, Take 1.5 (one and a half) tablets (1.5 mg total) by mouth daily ., Disp: , Rfl: furosemide (LASIX) 20 MG tablet, Take 1 (one) tablet (20 mg total) by mouth daily ., Disp: 90 tablet, Rfl: 1 guaiFENesin (MUCINEX) 600 mg 12 hr tablet, Take 2 (two) tablets (1,200 mg total) by mouth 2 (two) times a day ., Disp: , Rfl: ketoconazole (NIZORAL) 2 % cream, Apply topically daily to feet ., Disp: , Rfl: lansoprazole (PREVACID) 30 MG capsule, Take 1 capsule by mouth every morning before breakfast on an empty stomach. ., Disp: 90 capsule, Rfl: 3 levothyroxine (SYNTHROID, LEVOTHROID) 75 MCG tablet, Take 1 (one) tablet (75 mcg total) by mouth every morning DOS ., Disp: 90 tablet, Rfl: 1 magnesium oxide (MAG-OX) 400 mg tablet, Take 2.5 (two and a half) tablets (1,000 mg total) by mouth nightly ., Disp: , Rfl: metroNIDAZOLE (METROGEL) 1 % gel, Apply once daily to entire face, Disp: , Rfl: mirtazapine (REMERON) 30 MG tablet, Take 1 (one) tablet (30 mg total) by mouth nightly Takes additional 7.5 ., Disp: 90 tablet, Rfl: 0 mirtazapine (REMERON) 7.5 MG tablet, Take 1 (one) tablet (7.5 mg total) by mouth nightly ., Disp: 90 tablet, Rfl: 0 mupirocin (BACTROBAN) 2 % ointment, Apply topically 2 (two) times a day ., Disp: 22 g, Rfl: 0 Nucala 100 mg/mL AtIn, Inject 1 mL (100 mg total) under the skin every 28 days ., Disp: 3 mL, Rfl: 11 omega-3 fatty acids-fish oil 360-1,200 mg cap, Daily ., Disp: 90 capsule, Rfl: 1 Prolia 60 mg/mL Syrg, Inject 60 (sixty) mg under the skin once Q 6 months for 1 dose., Disp: , Rfl: Therems-M 9 mg iron-400 mcg Tab, Take 1 (one) tablet by mouth daily ., Disp: , Rfl: ubrogepant (Ubrelvy) 100 mg Tab, Take 1 (one) tablet (100 mg total) by mouth at bedtime as needed (migraines) ., Disp: 10 tablet, Rfl: 3 VITAMIN D3 2,000 unit cap, Take 1 (one) capsule by mouth 2 (two) times a day ., Disp: , Rfl: 0 zinc gluconate 50 mg tablet, Take 1 (one) tablet (50 mg total) by mouth daily ., Disp: , Rfl: Past Medical History: Diagnosis Date Anemia 03/2016 Anxiety 09/2002 General anxiety disorder Arrhythmia Arthritis Asthma Bruises easily Cancer (HCC) 06/1991 Cervical cancer Clostridium difficile infection 1999 COPD (chronic obstructi (more content not included)... [facility] 02-05-2024 Telephone encounter Note Last OV 12/25/23. Next OV 06/14/24. [facility] 02-05-2024 Miscellaneous Notes Last OV 12/25/23. Next OV 06/14/24. documented in this encounter [facility] 02-03-2024 History of Present illness Narrative [facility] [address] [facility] [address] [facility] [place] [id number] Chief Complaint Patient presents with Left Shoulder - Pain Cynthia Cisneros returns to the office today for follow-up on the left shoulder. We have injected the left shoulder, had her complete a course of outpatient physical therapy but unfortunately she continues to have pain as well as decreased range of motion and strength. She denies any new injury since her last office visit. The patient's past medical history, surgical history, social history, family history, medications and allergies were reviewed with the patient today and are available in the chart for further review. Allergies Allergen Reactions Penicillin G Hives, Shortness Of Breath and Swelling Sulfa (Sulfonamide Antibiotics) Hives, Shortness Of Breath and Swelling Trazodone Hives and Shortness Of Breath Celecoxib Hives Difficulty breathing, swelling Levofloxacin GI Intolerance Nausea and vomiting. [place] Diarrhea Other reaction(s): Vomiting Niacin Unknown Sulfites Wheat Containing Prod Other (See Comments) Cephalexin Rash Current Outpatient Medications: acetaminophen (TYLENOL) 500 MG tablet, Take 1 (one) tablet (500 mg total) by mouth every 6 (six) hours as needed for pain THREE TIMES DAILY ., Disp: , Rfl: albuterol (PROVENTIL) 2.5 mg /3 mL (0.083 %) nebulizer solution, Take 3 mL (2.5 mg total) by nebulization every 6 (six) hours as needed for wheezing ., Disp: 120 mL, Rfl: 12 atenoloL (TENORMIN) 50 MG tablet, Take 1 (one) tablet (50 mg total) by mouth 2 (two) times a day ., Disp: 90 tablet, Rfl: 1 atogepant (Qulipta) 60 mg Tab, Take 1 (one) tablet (60 mg total) by mouth daily ., Disp: 30 tablet, Rfl: 11 [place] Saline Gel, Apply topically 2 (two) times a day Apply a pea sized amount to both nostrils at bedtime and in a.m. You can use it more often.., Disp: 14.1 g, Rfl: 12 Bevespi Aerosphere 9-4.8 mcg HFAA, Inhale 2 puffs 2 (two) times a day ., Disp: 10.7 g, Rfl: 11 budesonide (PULMICORT) 0.5 mg/2 mL nebulizer solution, Take 2 mL (0.5 mg total) by nebulization 2 (two) times a day ., Disp: 60 mL, Rfl: 11 CALCITRATE 200 mg (950 mg) tablet, Take 200 mg by mouth 3 (three) times a day ., Disp: , Rfl: 0 desvenlafaxine succinate (PRISTIQ) 50 MG 24 hr tablet, Take 1 (one) tablet (50 mg total) by mouth daily ., Disp: 30 tablet, Rfl: 2 doxepin (SINEQUAN) 100 MG capsule, , Disp: , Rfl: Fish OiL 1,200 (144-216) mg cap, Take 1 capsule by mouth 3 (three) times a day ., Disp: , Rfl: fluticasone propionate (FLONASE) 50 mcg/actuation nasal spray, Instill 2 (two) sprays into each nostril 2 (two) times a day ., Disp: 18.2 mL, Rfl: 1 folic acid (FOLVITE) 1 MG tablet, Take 1.5 (one and a half) tablets (1.5 mg total) by mouth daily ., Disp: , Rfl: furosemide (LASIX) 20 MG tablet, Take 1 (one) tablet (20 mg total) by mouth daily ., Disp: 90 tablet, Rfl: 1 guaiFENesin (MUCINEX) 600 mg 12 hr tablet, Take 2 (two) tablets (1,200 mg total) by mouth 2 (two) times a day ., Disp: , Rfl: ketoconazole (NIZORAL) 2 % cream, Apply topically daily to feet ., Disp: , Rfl: lansoprazole (PREVACID) 30 MG capsule, Take 1 capsule by mouth every morning before breakfast on an empty stomach. ., Disp: 90 capsule, Rfl: 3 levothyroxine (SYNTHROID, LEVOTHROID) 75 MCG tablet, Take 1 (one) tablet (75 mcg total) by mouth every morning DOS ., Disp: 90 tablet, Rfl: 1 magnesium oxide (MAG-OX) 400 mg tablet, Take 2.5 (two and a half) tablets (1,000 mg total) by mouth nightly ., Disp: , Rfl: metroNIDAZOLE (METROGEL) 1 % gel, Apply once daily to entire face, Disp: , Rfl: mirtazapine (REMERON) 30 MG tablet, Take 1 (one) tablet (30 mg total) by mouth nightly Takes additional 7.5 ., Disp: 90 tablet, Rfl: 0 mirtazapine (REMERON) 7.5 MG tablet, Take 1 (one) tablet (7.5 mg total) by mouth nightly ., Disp: 90 tablet, Rfl: 0 mupirocin (BACTROBAN) 2 % ointment, Apply topically 2 (two) times a day ., Disp: 22 g, Rfl: 0 Nucala 100 mg/mL AtIn, Inject 1 mL (100 mg total) under the skin every 28 days ., Disp: 3 mL, Rfl: 11 omega-3 fatty acids-fish oil 360-1,200 mg cap, Daily ., Disp: 90 capsule, Rfl: 1 Prolia 60 mg/mL Syrg, Inject 60 (sixty) mg under the skin once Q 6 months for 1 dose., Disp: , Rfl: Therems-M 9 mg iron-400 mcg Tab, Take 1 (one) tablet by mouth daily ., Disp: , Rfl: ubrogepant (Ubrelvy) 100 mg Tab, Take 1 (one) tablet (100 mg total) by mouth at bedtime as needed (migraines) ., Disp: 10 tablet, Rfl: 3 VITAMIN D3 2,000 unit cap, Take 1 (one) capsule by mouth 2 (two) times a day ., Disp: , Rfl: 0 zinc gluconate 50 mg tablet, Take 1 (one) tablet (50 mg total) by mouth daily ., Disp: , Rfl: Past Medical History: Diagnosis Date Anemia 03/2016 Anxiety 09/2002 General anxiety disorder Arrhythmia Arthritis Asthma Bruises easily Cancer (HCC) 06/1991 Cervical cancer Clostridium difficile infection 1999 COPD (chronic obstructive pulmonary disease) (HCC) Diagnosed several years ago Coronary artery disease Depression Diabetes mellitus (HCC) Borderline GERD (gastroesophageal reflux disease) 05/20/2016 Heart murmur Hyperlipidemia Hypertension Hypothyroidism (acquired) 05/20/2016 Injury of back Osteoporosis 11/25/2022 Squamous cell skin cancer Valvular disease MVP Past Surgical History: Procedure Laterality Date ADENOIDECTOMY 1994 APPENDECTOMY ARTHROPLASTY HIP ROBOTIC EUGENE Left 10/21/2021 Procedure: Left Total Hip Replacement Robotic; Surgeon: Jovanna Valencia MD; Location: Main OR; Service: Ortho-Robotics CARPAL TUNNEL RELEASE Left CATARACT EXTRACTION W/ INTRAOCULAR LENS IMPLANT Bilateral COLON SURGERY WITH ILEOSTOMY CORE DECOMPRESSION OF LEFT FEMEROL HEAD EYE SURGERY Bilateral LASER TO EYES FOR GLAUCOMA HANDS, DUPYTRENS, TRIGGER FINGER, CARPAL TUNNEL Right HYSTERECTOMY 1990 ILEOSTOMY REVERSAL INDEX FINGER SURGERY Right JOINT REPLACEMENT MUSCLE BIOPSY ROTATOR CUFF REPAIR Left SINUS SURGERY January 2018 and nik bullosa resection - Dr. Watters SINUS SURGERY 12/30/2019 balloon sinuplasty - Dr. Key SKIN BIOPSY TONSILLECTOMY TRIGGER FINGER RELEASE Right 03/24/2018 Procedure: RELEASE A1 TOD LEFT MIDDLE,RING, AND SMALL FINGERS WITH CORTISONE INJECTION RIGHT MIDDLE FINGER A1 TOD; Surgeon: Yonas Nguyen MD; Location: [facility] Main OR; Service: Hand TUBAL LIGATION Social History Socioeconomic History Marital status: Single Tobacco Use Smoking status: Former Packs/day: 1.50 Years: 42.00 Additional pack years: 0.00 Total pack years: 63.00 Types: Cigarettes Start date: 1979 Quit date: 09/17/2021 Years since quittin.3 Passive exposure: Past Smokeless tobacco: Never Tobacco comments: Cigarettes Vaping Use Vaping Use: Never used Substance and Sexual Activity Alcohol use: No Drug use: No Sexual activity: Not Currently control/protection: Pill, Diaphragm, I.U.D., Surgical Comment: hysterectomy at age 39 ROS: Review of Systems Musculoskeletal: Positive for arthralgias and myalgias. Negative for joint swelling. Decreased range of motion Imaging: No new imaging, reviewed from prior visit Assessment/Plan After discussion, I am ordering a MRI of that left shoulder for further evaluation. Again, conservative measures have not provided her with adequate pain relief. The injections, oral medications as well as physical therapy have failed therefore a MRI is needed for further diagnostic evaluation and possible surgical discussion. I will see her back in the office to review the results of her MRI. documented in this encounter [facility] 02-01-2024 Telephone encounter Note LAST OV 12/25/23. NEXT OV SCHEDULED FOR 06/14/24. [facility] 02-01-2024 Miscellaneous Notes LAST OV 12/25/23. NEXT OV SCHEDULED FOR 06/14/24. documented in this encounter [facility] 01-27-2024 History of Present illness Narrative Images from the original note were not included. Behavioral Health Outpatient Progress Note Patient Name: Cynthia Cisneros MR #: [id number] : 1950 Chief Complaint: Medication and symptom review/management Interval History: 01/27/2024 Patient presents for follow up exam. States she is tolerating the medication well. She has been taking Pristiq as prescribed for 45 days. She has noted some mild symptom improvement but is not at 100 % yet. are stable and have not worsened. Denies any recent mood changes or fluctuations. She is having some mild depression noted in the am until she takes her medication. She is still noting poor sleep average 4 hours. Denies any new or ongoing complaints/concerns. Denies any side effects of the medication. Denies any Suicidal Ideation or Homicidal Ideation Previous Visit: 12/10/2023 Patient presents for follow up exam. States she was not tolerating the Vrayal well, so she stopped it. Has been off the medication for 31 days. States symptoms are not yet stable, but have not worsened. She . Denies any new or ongoing complaints/concerns. Denies any side effects of the medication. She is sleeping 4 hours per night. Denies any Suicidal Ideation or Homicidal Ideation Current stressors: Current Medications: Outpatient Medications Prior to Visit Medication Sig Dispense Refill acetaminophen (TYLENOL) 500 MG tablet Take 1 (one) tablet (500 mg total) by mouth every 6 (six) hours as needed for pain THREE TIMES DAILY . albuterol (PROVENTIL) 2.5 mg /3 mL (0.083 %) nebulizer solution Take 3 mL (2.5 mg total) by nebulization every 6 (six) hours as needed for wheezing . 120 mL 12 atenoloL (TENORMIN) 50 MG tablet Take 1 (one) tablet (50 mg total) by mouth 2 (two) times a day . 90 tablet 1 atogepant (Qulipta) 60 mg Tab Take 1 (one) tablet (60 mg total) by mouth daily . 30 tablet 11 [place] Saline Gel Apply topically 2 (two) times a day Apply a pea sized amount to both nostrils at bedtime and in a.m. You can use it more often.. 14.1 g 12 Bevespi Aerosphere 9-4.8 mcg HFAA Inhale 2 puffs 2 (two) times a day . 10.7 g 11 budesonide (PULMICORT) 0.5 mg/2 mL nebulizer solution Take 2 mL (0.5 mg total) by nebulization 2 (two) times a day . 60 mL 11 CALCITRATE 200 mg (950 mg) tablet Take 200 mg by mouth 3 (three) times a day . 0 Fish OiL 1,200 (144-216) mg cap Take 1 capsule by mouth 3 (three) times a day . fluticasone propionate (FLONASE) 50 mcg/actuation nasal spray Instill 2 (two) sprays into each nostril 2 (two) times a day . 18.2 mL 1 folic acid (FOLVITE) 1 MG tablet Take 1.5 (one and a half) tablets (1.5 mg total) by mouth daily . furosemide (LASIX) 20 MG tablet Take 1 (one) tablet (20 mg total) by mouth daily . 90 tablet 0 guaiFENesin (MUCINEX) 600 mg 12 hr tablet Take 2 (two) tablets (1,200 mg total) by mouth 2 (two) times a day . ketoconazole (NIZORAL) 2 % cream Apply topically daily to feet . lansoprazole (PREVACID) 30 MG capsule Take 1 capsule by mouth every morning before breakfast on an empty stomach. . 90 capsule 3 levothyroxine (SYNTHROID, LEVOTHROID) 75 MCG tablet Take 1 (one) tablet (75 mcg total) by mouth every morning DOS . 90 tablet 1 magnesium oxide (MAG-OX) 400 mg tablet Take 2.5 (two and a half) tablets (1,000 mg total) by mouth nightly . metroNIDAZOLE (METROGEL) 1 % gel Apply once daily to entire face mirtazapine (REMERON) 30 MG tablet Take 1 (one) tablet (30 mg total) by mouth nightly Takes additional 7.5 . 90 tablet 0 mirtazapine (REMERON) 7.5 MG tablet Take 1 (one) tablet (7.5 mg total) by mouth nightly . 90 tablet 0 mupirocin (BACTROBAN) 2 % ointment Apply topically 2 (two) times a day . 22 g 0 Nucala 100 mg/mL AtIn Inject 1 mL (100 mg total) under the skin every 28 days . 3 mL 11 omega-3 fatty acids-fish oil 360-1,200 mg cap Daily . 90 capsule 1 Prolia 60 mg/mL Syrg Inject 60 (sixty) mg under the skin once Q 6 months for 1 dose. Therems-M 9 mg iron-400 mcg Tab Take 1 (one) tablet by mouth daily . ubrogepant (Ubrelvy) 100 mg Tab Take 1 (one) tablet (100 mg total) by mouth at bedtime as needed (migraines) . 10 tablet 3 VITAMIN D3 2,000 unit cap Take 1 (one) capsule by mouth 2 (two) times a day . 0 zinc gluconate 50 mg tablet Take 1 (one) tablet (50 mg total) by mouth daily . desvenlafaxine succinate 25 mg Tb24 Take 1 (one) tablet (25 mg total) by mouth daily . 30 tablet 2 predniSONE (DELTASONE) 20 MG tablet Take 1 (one) tablet (20 mg total) by mouth daily . 5 tablet 0 No facility-administered medications prior to visit. Psychiatric ROS: Negative unless noted above. Review of Systems: Constitutional: Denies fever, chills, diaphoresis, malaise Eyes: Denies blurred vision, double vision ENT: Denies nasal congestion, sore throat Neurological: Denies headache, photophobia, weakness, numbness CVS: Denies chest pain or palpitations Respiratory: Denies dyspnea or cough Musculoskeletal: Denies joint pain or muscle aches GI: Denies nausea, vomiting, constipation, or diarrhea : Denies urinary urgency, frequency, or burning Integumentary: Denies itching or rash Endocrine: Denies heat/cold intolerance or weight loss/weight gain Physical Exam: General: Alert and oriented to person, place, and time. Is in no acute distress. Well developed, hydrated, and nourished. Appears stated age. Skin: Skin in warm, dry and intact without rashes or lesions. Appropriate color for ethnicity. Nailbeds pink with no cyanosis or clubbing. Head: The head is normocephalic and atraumatic. Eyes: PERRLA Neck: Supple Respiratory: Respirations are non labored. Musculoskeletal: Active ROM in all four extremities. Neurological: Motor function is normal in upper and lower extremities. No gait abnormalities are appreciated. Mental Status Evaluation: General Appearance & Behavior: age appropriate, pleasant, cooperative, good eye contact Grooming & Hygiene: neat and clean Psychomotor Activity: no psychomotor abnormalities or muscle atrophy noted Speech: normal rate, rhythym, volume, and spontaneity Flow of Thought: linear and goal directed Thought Associations: Intact Content of Thought: No evidence of suicidal ideations/homicidal ideations/psychosis Mood: fine Affect: mood congruent Insight: intact Judgment: intact Orientation: alert and oriented to person, place, time, and circumstances Memory: intact recent and remote Attention: intact Concentration: intact Language: fluent Fund of Knowledge: estimated average intelligence Assessment and Plan/Recommendations Diagnoses/Treatment Plan: Diagnoses and all orders for this visit: Anxiety - desvenlafaxine succinate (PRISTIQ) 50 MG 24 hr tablet; Take 1 (one) tablet (50 mg total) by mouth daily . Moderate major depression (HCC) - desvenlafaxine succinate (PRISTIQ) 50 MG 24 hr tablet; Take 1 (one) tablet (50 mg total) by mouth daily . Pharmacological management: Alternative medication plans were discussed with the patient/guardian. All side effects or potential adverse effects were discussed with the patient/guardian. Parent/guardian consented to medication initiation or continuation of the following: Education: Continue medication as prescribed. Please report any side effects or intolerability of the medication. Report any new or worsening symptoms 11/03/2023 12:00 PM TADEO-7 TADEO-7 Score 14 11/03/2023 12:00 PM PHQ-9 PHQ-9 Total Score 19 Follow up in: weeks or sooner if needed Treatment options and alternatives reviewed with patient. Risks, benefits, side effects of all psychiatric medications discussed with patient and informed consent obtained. All questions were answered. Miriam Cerna CNP 01/27/2024 3:18 PM documented in this encounter [facility] 01-13-2024 History of Present illness Narrative [facility] DAILY TREATMENT NOTE Today's Date 01/13/2024 Patient Name: Cynthia Cisneros Date of : 1950 Current Visit #: 7 Authorized Visits: 199 Case Name: Eva shoulder pain History: Pre-Treatment Pain Scale: 2 at rest, much worse with movement Symptoms: gradually worsened Functional Diagnosis: 1. Impingement syndrome of shoulder region, unspecified laterality Clinical Information: Subjective: Pt states her L shoulder feels awful and feels she is getting worse. PT has helped R shoulder some, but L remains painful. She is getting radiating pain below elbow and can have intense, burning pain in anterior shoulder with movement. Feels it is greatly affecting her ADLs. Finds it difficult to do dishes, cook, drive, self care, etc. Objective Pain with AA and PROM. Pt can tolerate some scap retractions and depression but movement at GH joint is painful and intolerable. Treatments: Physical Therapy Exercise Log - 01/13/24 1317 OTHER Precautions/Contraindications Supervising PT Vic 10 Notes B shoulder pain - impingement (L worse than R) Therapeutic Exercise (89950) Intervention refer to manual Parameters scap retraction x10 limit arm mvmt and focus more on the scap mvmt. Intervention scap depression x10 each challenged more (L) > (R) Parameters Prone row and extension bilateral 2x10 R x 10 L Intervention Supine wand flexion x 10 Manual Therapy (20519) Intervention Joint mobilizations inferior R with PROM flexion 8 mins Additional Exercises Add more exercises? Yes Modalities Modalities Cold packs Parameters 5 L shoulder. HOB elevated bolster under knees - became painful PT Treatment Times Therex Total Time 20 Modalities Total Time 5 Direct Treatment Time 25 Total Treatment Time 30 Goals: Physical Therapy Ortho Goals: No data was found Patient Education: Quality of movement, Verbal HEP, and Diagnosis and recovery specific education with patient demonstrated understanding and verbalized understanding. Post-Treatment Pain Scale: worse Assessment: Patient had an unexpected response to treatment due to elevated pain with most interventions. Skilled Intervention demonstrated by modifications of treatment per exercise log including decreased load, increased cueing, decreased intensity, and assessment of patient's response and safety interventions per exercise log. Progress towards goals unexpected due to higher than anticipated complexity. Plan for Next Visit: Pt will be DC'd at this time and schedule follow up with provider Rita Parks PTA STATE LICENSE, [id number] documented in this encounter [facility] 01-01-2024 History of Present illness Narrative [facility] DAILY TREATMENT NOTE Today's Date 01/01/2024 Patient Name: Cynthia Cinseros Date of : 1950 Current Visit #: 6 Authorized Visits: 199 Case Name: B shoulder pain History: Pre-Treatment Pain Scale: sore Symptoms: stabilized Functional Diagnosis: 1. Impingement syndrome of shoulder region, unspecified laterality Clinical Information: Subjective: Pt states L shoulder isn't as sore as last visit. Objective Pain at end range wand flexion but better with cueing to limit range Treatments: Physical Therapy Exercise Log - 01/01/24 1616 OTHER Precautions/Contraindications Supervising PT Vic 10 Notes B shoulder pain - impingement (L worse than R) Therapeutic Exercise (24254) Intervention refer to manual Parameters scap retraction x10 limit arm mvmt and focus more on the scap mvmt. Intervention scap depression x10 each challenged more (L) > (R) Parameters Prone row and extension bilateral 2x10 R x 10 L Intervention Supine wand flexion x 10 Manual Therapy (31365) Intervention Joint mobilizations inferior B with PROM flexion and abduction 8 mins (just PROM this date 12/29/23) Additional Exercises Add more exercises? Yes Modalities Modalities Cold packs Parameters 10 B shoulder. HOB elevated bolster under knees PT Treatment Times Therex Total Time 20 Manual Therapy Total Time 10 Modalities Total Time 10 Direct Treatment Time 40 Total Treatment Time 40 Goals: Physical Therapy Ortho Goals: No data was found Patient Education: Quality of movement, Verbal HEP, and Diagnosis and recovery specific education with patient demonstrated understanding and verbalized understanding. Post-Treatment Pain Scale: better Assessment: Patient had an expected response to treatment. Pt has better response to limited reps and no joint mobilization. Skilled Intervention demonstrated by modifications of treatment per exercise log including increased load, increased cueing, increased mobility, and assessment of patient's response and safety interventions per exercise log. Progress towards goals as expected. Plan for Next Visit: Treatment Visit with focus on continue Rita Parks PTA STATE LICENSE, [id number] documented in this encounter [facility] 12-29-2023 History of Present illness Narrative [facility] DAILY TREATMENT NOTE Today's Date 12/29/2023 Patient Name: Cynthia Cisneros Date of : 1950 Current Visit #: 5 Authorized Visits: 199 Case Name: B shoulder pain History: Pre-Treatment Pain Scale: 6 Symptoms: gradually worsened Functional Diagnosis: 1. Impingement syndrome of shoulder region, unspecified laterality Clinical Information: Subjective: Pt had increase in pain and soreness after last session and had to cancel last session secondary to poor response to therapy. Pt states L shoulder is the problem and R shoulder has not changed or gotten worse. Pt states pain increases after strengthening and manual therapy interventions. Objective: Reduced reps with exercises secondary to poor response last session. Discontinued joint mobilization and cont with gentle PROM. Ended with ice to reduce pain and sxs. Treatments: Physical Therapy Exercise Log - 12/29/23 1301 OTHER Precautions/Contraindications Supervising PT Vic 10 Notes B shoulder pain - impingement (L worse than R) Therapeutic Exercise (36627) Intervention refer to manual Parameters scap retraction x10 limit arm mvmt and focus more on the scap mvmt. Intervention scap depression x10 each challenged more (L) > (R) Parameters Prone row and extension bilateral 2x10 R UE only Intervention -- Manual Therapy (52714) Intervention Joint mobilizations inferior B with PROM flexion and abduction 8 mins (just PROM this date 12/29/23) Additional Exercises Add more exercises? Yes Modalities Modalities Cold packs Parameters 10 B shoulder. HOB elevated bolster under knees PT Treatment Times Therex Total Time 15 Manual Therapy Total Time 15 Modalities Total Time 10 Direct Treatment Time 40 Total Treatment Time 40 Goals: Physical Therapy Ortho Goals: No data was found Patient Education: Quality of movement with patient demonstrated understanding. Post-Treatment Pain Scale: numb from icing. Assessment: Patient had an expected response to treatment. Empty end feel with all PROM. Limited Range L> R shoulder with PROM. Does c/o burning sensation in bicep/ tricep region with shoulder abduction PROM. Skilled Intervention demonstrated by modifications of treatment per exercise log including increased load and safety interventions per exercise log. Progress towards goals as expected. Plan for Next Visit: Treatment Visit with focus on Cont POC Mathieu Ahn PTA STATE LICENSE, [id number] documented in this encounter [facility] 12-25-2023 Evaluation + Plan note Associated Problem(s): Bipolar disorder (HCC) Encouraged to continue follow up with psychiatry and maintain pristiq , didn't react well to antipsychotic Vraylar Follow up on recommendations and if diagnosis confirmed [facility] 12-25-2023 Miscellaneous Notes Associated Problem(s): Bipolar disorder (HCC) Encouraged to continue follow up with psychiatry and maintain pristiq , didn't react well to antipsychotic Vraylar Follow up on recommendations and if diagnosis confirmed Associated Problem(s): Osteoporosis Update Dexa scan and will consider a break from Prolia as she is approaching 5 years on that . Associated Problem(s): COPD (chronic obstructive pulmonary disease) (HCC) Secondary to smoking history Using pulmicort , albuterol and bevespi managed with pulmonology Associated Problem(s): Dysphagia Previous workup was negative , last EGD 2009 normal Continue to monitor symptoms , no red flags at this time , she will let me know with concerns to refer to GI documented in this encounter [facility] 12-25-2023 Evaluation + Plan note Associated Problem(s): Osteoporosis Update Dexa scan and will consider a break from Prolia as she is approaching 5 years on that . [facility] 12-25-2023 Evaluation + Plan note Associated Problem(s): COPD (chronic obstructive pulmonary disease) (HCC) Secondary to smoking history Using pulmicort , albuterol and bevespi managed with pulmonology [facility] 12-25-2023 Evaluation + Plan note Associated Problem(s): Dysphagia Previous workup was negative , last EGD 2009 normal Continue to monitor symptoms , no red flags at this time , she will let me know with concerns to refer to GI [facility] 12-25-2023 History of Present illness Narrative Chief Complaint Patient presents with Follow-up 3 month f/u HPI: Cynthia Cisneros is a 72-year-old female presenting today for follow-up. Has PMH of anxiety, depression, arrhythmias, asthma, GERD, hyperlipidemia, hypertension, hypothyroidism, chronic sinusitis, COPD and skin squamous cell cancer. Used to follow-up since 2018 [facility] in [place], transferring care to [facility]. Afib: She has a history of paroxysmal atrial fibrillation and she has not been maintained on chronic anticoagulation. Previous testing came back negative per patient's report. Normal stress testing done 2019 Echo done in 2019 with LVEF of 65% and stage I diastolic dysfunction and trace tricuspid regurg Was offered Eliquis prophylaxis 2.5 mg twice daily but never started on it and scared from it. Dysphagia: Has a hx of esophageal spasms, varies on duration , not related to food. Restarted in the last 6 months , no associated heart burn , N/V, abdominal pain. Relieved with Skelaxine and hot liquids. Depression: Chronic , used to follow up with psychiatry in the past Was tried on several medications including Paxil , cymbalta, lexapro, zoloft , prozac, velazodone with minimal tolerance. Wellbutrin caused her to vomit in the past. Feels that mirtazapine it is not working , getting irritable and angry over small things , mood is low and more tearful. Has had genetic testing and was put in the past and was put on Pristiq 50 mg and was stopped as she was more ecstatic. Was told in the past has been diagnosed with bipolar 2 disorder. Depakote, lithium and lamictal that didn't work for her Has episodes of up mood swing and maggie/hypomania can go for 10 days. 12/24: Has established with psychiatry and has been tried on Vraylar for bipolar which didn't work well. Switched to Pristiq , seems to help better and is following up in January 2024. COPD and asthma : Has budesonide and albuterol nebulized in addition to Bevespi and Pulmicort,which control her symptoms. 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 Former smoker quit in 2021 PFTs confirm diagnosis of asthma, following up with pulmonology. Last CT came back showing small nodules with no concerns. Osteoporosis: Unsure of the last DEXA scan she will check her records and let me know. Has been on Prolia for the last 3 years tolerating it well. DEXA scan osteoporosis 2018. Will repeat this year. Muscle cramps: Chronic for which she takes metaxalone that she takes 3 times a day. Believes it is coming from her lower back mainly left-sided. Can happen during the day , relieved with chiropractic adjustments , mainly taking it at night. Has been trying to wean off the metaxolone currently at 400 mg BID and then stopped scheduled and is using it more as needed. PT seems to work well for her and has been doing exercises at home which seems to help significantly. Shoulder pain: Chronic impingement syndrome, following up with orthopedics. Has been getting steroid injections with [facility]. She is doing PT. Struggling with moving backwards New clicking for the past 2 weeks, associated with discomfort. Past Medical History: Diagnosis Date Anemia 03/2016 Anxiety 09/2002 General anxiety disorder Arrhythmia Arthritis Asthma Bruises easily Cancer (HCC) 06/1991 Cervical cancer Clostridium difficile infection 1999 COPD (chronic obstructive pulmonary disease) (HCC) Diagnosed several years ago Coronary artery disease Depression Diabetes mellitus (HCC) Borderline GERD (gastroesophageal reflux disease) 05/20/2016 Heart murmur Hyperlipidemia Hypertension Hypothyroidism (acquired) 05/20/2016 Injury of back Osteoporosis 11/25/2022 Squamous cell skin cancer Valvular disease MVP Past Surgical History: Procedure Laterality Date ADENOIDECTOMY 1994 APPENDECTOMY ARTHROPLASTY HIP ROBOTIC EUGENE Left 10/21/2021 Procedure: Left Total Hip Replacement Robotic; Surgeon: Jovanna Valencia MD; Location: Main OR; Service: Ortho-Robotics CARPAL TUNNEL RELEASE Left CATARACT EXTRACTION W/ INTRAOCULAR LENS IMPLANT Bilateral COLON SURGERY WITH ILEOSTOMY CORE DECOMPRESSION OF LEFT FEMEROL HEAD EYE SURGERY Bilateral LASER TO EYES FOR GLAUCOMA HANDS, DUPYTRENS, TRIGGER FINGER, CARPAL TUNNEL Right HYSTERECTOMY 1990 ILEOSTOMY REVERSAL INDEX FINGER SURGERY Right JOINT REPLACEMENT MUSCLE BIOPSY ROTATOR CUFF REPAIR Left SINUS SURGERY January 2018 and nik bullosa resection - Dr. Watters SINUS SURGERY 12/30/2019 balloon sinuplasty - Dr. Key SKIN BIOPSY TONSILLECTOMY TRIGGER FINGER RELEASE Right 03/24/2018 Procedure: RELEASE A1 TOD LEFT MIDDLE,RING, AND SMALL FINGERS WITH CORTISONE INJECTION RIGHT MIDDLE FINGER A1 TOD; Surgeon: Yonas Nguyen MD; Location: [facility] Main OR; Service: Hand TUBAL LIGATION Family History Problem Relation Age of Onset Hypertension Mother Arthritis Mother Cancer Mother Heart disease Mother Hypertension Father Asthma Father COPD Father Diabetes Father Hearing loss Father Heart disease Father Hyperlipidemia Father Heart disease Sister Hypertension Sister Cancer Brother Asthma Brother Diabetes Brother Heart disease Maternal Grandfather Anesthesia problems Neg Hx Social History Tobacco Use Smoking status: Former Packs/day: 1.50 Years: 42.00 Additional pack years: 0.00 Total pack years: 63.00 Types: Cigarettes Start date: 1979 Quit date: 09/17/2021 Years since quittin.2 Passive exposure: Past Smokeless tobacco: Never Tobacco comments: Cigarettes Vaping Use Vaping Use: Never used Substance Use Topics Alcohol use: No Drug use: No Review of Systems Vitals: 12/25/23 1107 12/25/23 1121 BP: (!) 162/94 120/79 BP Location: Right arm Right arm Patient Position: Sitting Sitting BP Cuff Size: Adult X-large Adult Pulse: 68 67 Resp: 16 Temp: 98.3 F (36.8 C) TempSrc: Temporal SpO2: 96% Weight: 69.4 kg (153 lb) Height: 5' 3 Estimated body mass index is 27.1 kg/m as calculated from the following: Height as of this encounter: 5' 3. Weight as of this encounter: 69.4 kg (153 lb). Physical Exam Constitutional: General: She is not in acute distress. Appearance: She is not ill-appearing. HENT: Head: Normocephalic and atraumatic. Right Ear: Tympanic membrane, ear canal and external ear normal. Left Ear: Ear canal and external ear normal. Ears: Comments: Left middle ear effusion. Nose: Nose normal. Mouth/Throat: Mouth: Mucous membranes are moist. Pharynx: Oropharynx is clear. No oropharyngeal exudate or posterior oropharyngeal erythema. Eyes: Extraocular Movements: Extraocular movements intact. Conjunctiva/sclera: Conjunctivae normal. Pupils: Pupils are equal, round, and reactive to light. Cardiovascular: Rate and Rhythm: Normal rate and regular rhythm. Pulses: Normal pulses. Heart sounds: Normal heart sounds. No murmur heard. No gallop. Pulmonary: Effort: Pulmonary effort is normal. Breath sounds: No wheezing, rhonchi or rales. Chest: Chest wall: No tenderness. Abdominal: General: Abdomen is flat. Bowel sounds are normal. There is no distension. Palpations: Abdomen is soft. There is no mass. Tenderness: There is no abdominal tenderness. There is no right CVA tenderness, left CVA tenderness, guarding or rebound. Musculoskeletal: General: No tenderness. Normal range of motion. Cervical back: Normal range of motion and neck supple. No rigidity. No muscular tenderness. Right lower leg: No edema. Left lower leg: No edema. Lymphadenopathy: Cervical: No cervical adenopathy. Skin: General: Skin is warm. Findings: No erythema or rash. Neurological: General: No focal deficit present. Mental Status: She is alert and oriented to person, place, and time. Sensory: No sensory deficit. Motor: No weakness. Gait: Gait normal. Psychiatric: Mood and Affect: Mood normal. Behavior: Behavior normal. Thought Content: Thought content normal. Judgment: Judgment normal. OARRS/NARxCHECK Report Received and Assessed: Jovanna Valencia MD on 11/08/2021 6:04 PM Date controlled substance agreement signed: No data found Date of last drug screen: @Exam@ PHQ9: TADEO-7 Tobacco Counseling: Counseling given: Not Answered Tobacco comments: Cigarettes Patient's Medications New Prescriptions No medications on file Previous Medications ACETAMINOPHEN (TYLENOL) 500 MG TABLET Take 1 (one) tablet (500 mg total) by mouth every 6 (six) hours as needed for pain THREE TIMES DAILY . ALBUTEROL (PROVENTIL) 2.5 MG /3 ML (0.083 %) NEBULIZER SOLUTION Take 3 mL (2.5 mg total) by nebulization every 6 (six) hours as needed for wheezing . ATOGEPANT (QULIPTA) 60 MG TAB Take 1 (one) tablet (60 mg total) by mouth daily . AYR SALINE GEL Apply topically 2 (two) times a day Apply a pea sized amount to both nostrils at bedtime and in a.m. You can use it more often.. BEVESPI AEROSPHERE 9-4.8 MCG HFAA Inhale 2 puffs 2 (two) times a day . BUDESONIDE (PULMICORT) 0.5 MG/2 ML NEBULIZER SOLUTION Take 2 mL (0.5 mg total) by nebulization 2 (two) times a day . CALCITRATE 200 MG (950 MG) TABLET Take 200 mg by mouth 3 (three) times a day . DESVENLAFAXINE SUCCINATE 25 MG TB24 Take 1 (one) tablet (25 mg total) by mouth daily . FISH OIL 1,200 (144-216) MG CAP Take 1 capsule by mouth 3 (three) times a day . FLUTICASONE PROPIONATE (FLONASE) 50 MCG/ACTUATION NASAL SPRAY Instill 2 (two) sprays into each nostril 2 (two) times a day . FOLIC ACID (FOLVITE) 1 MG TABLET Take 1.5 (one and a half) tablets (1.5 mg total) by mouth daily . FUROSEMIDE (LASIX) 20 MG TABLET Take 1 (one) tablet (20 mg total) by mouth daily . GUAIFENESIN (MUCINEX) 600 MG 12 HR TABLET Take 2 (two) tablets (1,200 mg total) by mouth 2 (two) times a day . KETOCONAZOLE (NIZORAL) 2 % CREAM Apply topically daily to feet . LANSOPRAZOLE (PREVACID) 30 MG CAPSULE Take 1 capsule by mouth every morning before breakfast on an empty stomach. . LEVOTHYROXINE (SYNTHROID, LEVOTHROID) 75 MCG TABLET Take 1 (one) tablet (75 mcg total) by mouth every morning DOS . MAGNESIUM OXIDE (MAG-OX) 400 MG TABLET Take 2.5 (two and a half) tablets (1,000 mg total) by mouth nightly . METAXALONE (SKELAXIN) 800 MG TABLET Take 1 (one) tablet (800 mg total) by mouth 2 (two) times a day as needed for muscle spasms . METRONIDAZOLE (METROGEL) 1 % GEL Apply once daily to entire face MUPIROCIN (BACTROBAN) 2 % OINTMENT Apply topically 2 (two) times a day . NUCALA 100 MG/ML ATIN Inject 1 mL (100 mg total) under the skin every 28 days . OMEGA-3 FATTY ACIDS-FISH OIL 360-1,200 MG CAP Daily . PREDNISONE (DELTASONE) 20 MG TABLET Take 1 (one) tablet (20 mg total) by mouth daily . PROLIA 60 MG/ML SYRG Inject 60 (sixty) mg under the skin once Q 6 months for 1 dose. THEREMS-M 9 MG IRON-400 MCG TAB Take 1 (one) tablet by mouth daily . UBROGEPANT (UBRELVY) 100 MG TAB Take 1 (one) tablet (100 mg total) by mouth at bedtime as needed (migraines) . VITAMIN D3 2,000 UNIT CAP Take 1 (one) capsule by mouth 2 (two) times a day . ZINC GLUCONATE 50 MG TABLET Take 1 (one) tablet (50 mg total) by mouth daily . Modified Medications Modified Medication Previous Medication ATENOLOL (TENORMIN) 50 MG TABLET atenoloL (TENORMIN) 50 MG tablet Take 1 (one) tablet (50 mg total) by mouth 2 (two) times a day . Take 1 (one) tablet (50 mg total) by mouth 2 (two) times a day . MIRTAZAPINE (REMERON) 30 MG TABLET mirtazapine (REMERON) 30 MG tablet Take 1 (one) tablet (30 mg total) by mouth nightly Takes additional 7.5 . Take 1 (one) tablet (30 mg total) by mouth nightly Takes additional 7.5 . MIRTAZAPINE (REMERON) 7.5 MG TABLET mirtazapine (REMERON) 7.5 MG tablet Take 1 (one) tablet (7.5 mg total) by mouth nightly . Take 1 (one) tablet (7.5 mg total) by mouth nightly . Discontinued Medications No medications on file Health Maintenance Due Topic Date Due Colorectal Cancer Screening/Monitoring Never done PT Plan of Care Never done Wellness Visit Never done Diabetic Foot Exam Never done Hepatitis C Screening Never done Diabetic Eye Exam 06/18/2023 Mammogram 08/20/2023 Assessment & Plan Problem List Items Addressed This Visit Digestive GERD (gastroesophageal reflux disease) Dysphagia Previous workup was negative , last EGD 2009 normal Continue to monitor symptoms , no red flags at this time , she will let me know with concerns to refer to GI Respiratory COPD (chronic obstructive pulmonary disease) (HCC) Secondary to smoking history Using pulmicort , albuterol and bevespi managed with pulmonology Musculoskeletal and Integument Osteoporosis Update Dexa scan and will consider a break from Prolia as she is approaching 5 years on that . Relevant Orders XR Bone Density DEXA Axial Other Bipolar disorder (HCC) - Primary Encouraged to continue follow up with psychiatry and maintain pristiq , didn't react well to antipsychotic Vraylar Follow up on recommendations and if diagnosis confirmed Relevant Medications mirtazapine (REMERON) 30 MG tablet mirtazapine (REMERON) 7.5 MG tablet Moderate major depression (HCC) Relevant Medications mirtazapine (REMERON) 30 MG tablet mirtazapine (REMERON) 7.5 MG tablet Other Visit Diagnoses Acute pain of left shoulder Relevant Orders XR Shoulder Left 2+ Views (Standard) Prediabetes Relevant Orders TSH with Reflex Free T4 Microalbumin/Creatinine Ratio, UR Random Hemoglobin A1c Lipid Panel Comprehensive Metabolic Panel Abnormal finding of blood chemistry, unspecified Relevant Orders Lipid Panel I spent 45 minutes with patient reviewing HPI and coordinating plan of care as well as documenting that note. My ongoing relationship with Cynthia Cisneros requires continued responsibility and cognitive effort of being the focal point for all services related to chronic condition(s). Return in about 6 months (around 06/26/2024) for MWV. SJ MOTLEY MD OPG [facility] [address] [place] [id number] Dept: [phone] documented in this encounter [facility] 12-22-2023 History of Present illness Narrative [facility] DAILY TREATMENT NOTE Today's Date 12/22/2023 Patient Name: Cynthia Cisneros Date of : 1950 Current Visit #: 4 Authorized Visits: 199 Case Name: B shoulder pain History: Pre-Treatment Pain Scale: 3-4 Symptoms: stabilized Functional Diagnosis: 1. Impingement syndrome of shoulder region, unspecified laterality Clinical Information: Subjective: Pt states her shoulder feels okay, not much improvement. She had to miss last week but has been trying to keep up with her HEP. Still gets shooting pain into L hand especially and feels her L pec / anterior shoulder is sore and tender. Objective Greater strength noted with manual resistance to R UE vs L. No c/o painful arc this date Treatments: Physical Therapy Exercise Log - 12/22/23 2962 OTHER Precautions/Contraindications Supervising PT Ivc 10 Notes B shoulder pain - impingement (L worse than R) Therapeutic Exercise (32879) Intervention refer to manual Parameters scap retraction 2x10 limit arm mvmt and focus more on the scap mvmt. Intervention scap depression 2x10 each challenged more (L) > (R) Parameters Prone row and extension bilateral 2x10 each bilat Intervention Attempt ER / IR isometrics - very gentle keep painfree if possible 3-4 2x10 each (only x 5 on (L) for ER due to increased radiating Pain (L) hand and UE), - manual resistance Manual Therapy (54204) Intervention Joint mobilizations inferior B with PROM flexion and abduction 8 mins PT Treatment Times Therex Total Time 35 Manual Therapy Total Time 8 Direct Treatment Time 43 Total Treatment Time 35 Goals: Physical Therapy Ortho Goals: No data was found Patient Education: Quality of movement, Verbal HEP, and Diagnosis and recovery specific education with patient demonstrated understanding and verbalized understanding. Post-Treatment Pain Scale: bit better Assessment: Patient had an expected response to treatment. Decreased burning in L shoulder by end session. Skilled Intervention demonstrated by modifications of treatment per exercise log including increased cueing, increased assistance, increased mobility, and assessment of patient's response and safety interventions per exercise log. Progress towards goals as expected. Plan for Next Visit: Treatment Visit with focus on continue Rita Parks PTA STATE LICENSE, [id number] documented in this encounter [facility] 12-16-2023 History of Present illness Narrative Images from the original note were not included. [facility] [address] [place] [address] Name: Cynthia Cisneros : 1950 Date: 12/16/23 Hearing Aid Contact Note: Ms. Cisneros returned today for routine hearing aid follow up. She states sometimes her left hearing aid does not feel like it is in far enough and she hears better if she pushes the dome deeper. She wonders if she needs a smaller dome size. She also states sometimes having rare intermittent charging with her [employer]. She states she does not need adjustments to her hearing aids today. She reports her left ear has been bugging her (pressure) and her allergies are really bad lately (takes allergy medicines and wears mask outside with pollen). Otoscopy revealed clear canals and visualized intact tympanic membranes bilaterally. Could not visualize fluid line or bubbles. Her [employer] was functioning excellent as well. Visual inspection and listening check of the hearing aid(s) revealed both hearing aids in excellent condition. Cleaned, changed wax traps, domes, and retention strips. Kept both domes to size small open, pt did not want to try cap domes. Connected to software and checked for updates-none available. Provided two business cards per her request for her family. Discussed charging and encouraged her to try a different outlet, wiggle her hearing aids into correct placement, and keep case door open when charging to see if these changes help. If issues persist, can replace [employer] under warranty. Ms. Cisneros to return as needed for hearing aid care or as scheduled for routine hearing and/or hearing aid needs. Ms. Cisneros expressed understanding of and agreement with the above. Electronically Signed by: Christine Sorensen, CCC-A 12/16/23 2:31 PM documented in this encounter [facility] 12-11-2023 History of Present illness Narrative [facility] DAILY TREATMENT NOTE Today's Date 12/11/2023 Patient Name: Cynthia Cisneros Date of : 1950 Current Visit #: 3 Authorized Visits: 199 Case Name: Eva shoulder pain History: Pre-Treatment Pain Scale: 0/10 Symptoms: gradually improved Functional Diagnosis: 1. Impingement syndrome of shoulder region, unspecified laterality Clinical Information: Subjective: Pt reported compliance with HEP this date. Pt reported she was sore for the remainder of the day after last physical therapy session. Objective Exercises as logged in flowsheet this date. Treatments: Physical Therapy Exercise Log - 12/11/23 1352 OTHER Precautions/Contraindications Supervising PT Vic 10 1:50PM-2:25PM Notes B shoulder pain - impingement (L worse than R) Therapeutic Exercise (09553) Intervention refer to manual Parameters scap retraction 2x10 limit arm mvmt and focus more on the scap mvmt. Intervention scap depression 2x10 each challenged more (L) > (R) Parameters Prone row and extension bilateral 2x10 each bilat Intervention Attempt ER / IR isometrics - very gentle keep painfree if possible 3-4 2x10 each (only x 5 on (L) for ER due to increased radiating Pain (L) hand and UE), Manual Therapy (69601) Intervention Joint mobilizations inferior B with PROM flexion and abduction 8 mins PT Treatment Times Therex Total Time 27 Manual Therapy Total Time 8 Direct Treatment Time 35 Total Treatment Time 35 Goals: Physical Therapy Ortho Goals: No data was found Patient Education: Quality of movement, HEP Adherence, and Pain Management with patient demonstrated understanding and verbalized understanding. Post-Treatment Pain Scale: 0/10 Assessment: Patient had an expected response to treatment. Pt required VC's and TC's this date to increase pt's understanding and improve pt's body mechanics this date. Pt demonstrated increased radiating pain in (B) Ue's with prone exercises this date. Skilled Intervention demonstrated by modifications of treatment per exercise log including increased mobility, increased volume, and assessment of patient's response and safety interventions per exercise log. Progress towards goals as expected. Plan for Next Visit: Treatment Visit with focus on Progress as pt is able to tolerate per plan of care. Jess Arellano PTA state License, [id number] documented in this encounter [facility] 12-10-2023 History of Present illness Narrative Images from the original note were not included. Behavioral Health Outpatient Progress Note Patient Name: Cynthia Cisneros MR #: [id number] : 1950 Chief Complaint: Medication and symptom review/management Interval History: 12/10/2023 Patient presents for follow up exam. States she was not tolerating the Vrayal well, so she stopped it. Has been off the medication for 31 days. States symptoms are not yet stable, but have not worsened. She . Denies any new or ongoing complaints/concerns. Denies any side effects of the medication. She is sleeping 4 hours per night. Denies any Suicidal Ideation or Homicidal Ideation Current stressors: Previous Visit: Chart reviewed. Cynthia Cisneros is a 73 y.o. female who presents for initial psychiatric assessment. Patient states she has had a lot of mood instability over the years. She has contributed this to PTSD triggers, versus bipolar disorder. States at times she will have flashbacks from her traumatic past, she then spirals into the thoughts that impact her mood, and this will last several days. She recalls in 2015, she was under a lot of stress when she moved to [place], she wasn't able to sleep more than 45 minutes, which went on for several days, but she felt she had shut down completely. States she feels she blacked out and lost 10 days during that time. She wasn't able to recall the day or calls she made to people. She has had several other fluctuations over the years and has tried several different failed medications. Several antidepressants were not well tolerated, caused her symptoms to be worse, June 2021 and then again in June 2023 she went through several weeks of intense irritability that she was not able to gain control of. States it was so severe she kept herself at home as she was worried of what she could have done in that state. This was a change from her normal mood. -Depression: Reports history of depression that started in childhood. Patient reports symptoms of depression including loss of interest or pleasure in doing things, depressed mood. Reports difficulties with sleep and appetite. Reports feeling tired or having little energy, feeling bad about themselves, difficulty concentrating. Reports functional impairment secondary to depressive symptoms. -Anxiety: Reports chronic history of anxiety that started in 6th grade. She recalls replaying her parents arguments from the night before over and over in her mind while trying to focus on her classes. Reports feeling nervous, anxious, on edge regularly. Reports difficulty controlling worry, worrying about too many different things. Reports difficulty relaxing and restlessness, being easily annoyed or irritable. Reports feeling afraid something awful might happen. Endorses functional impairment secondary to these symptoms. -Bipolar: Patient does report symptoms consistent with maggie, including several days of a notable mood disturbance that is a change from usual behavior. Episodes of decreased need for sleep, increased energy, inflated self-esteem, more talkative than usual or pressure to keep talking, flight of ideas, racing thoughts, distractibility, hypersexual, or engaging in risky activity. -Psychotic symptoms: Does not report hallucinations, delusions or paranoia. -Psychotherapy: She has undergone therapy with Dr. Bashir in [place]. Current Medications: Outpatient Medications Prior to Visit Medication Sig Dispense Refill acetaminophen (TYLENOL) 500 MG tablet Take 1 (one) tablet (500 mg total) by mouth every 6 (six) hours as needed for pain THREE TIMES DAILY . albuterol (PROVENTIL) 2.5 mg /3 mL (0.083 %) nebulizer solution Take 3 mL (2.5 mg total) by nebulization every 6 (six) hours as needed for wheezing . 120 mL 12 atenoloL (TENORMIN) 50 MG tablet Take 1 (one) tablet (50 mg total) by mouth 2 (two) times a day . 90 tablet 1 atogepant (Qulipta) 60 mg Tab Take 1 (one) tablet (60 mg total) by mouth daily . 30 tablet 11 [place] Saline Gel Apply topically 2 (two) times a day Apply a pea sized amount to both nostrils at bedtime and in a.m. You can use it more often.. 14.1 g 12 Bevespi Aerosphere 9-4.8 mcg HFAA Inhale 2 puffs 2 (two) times a day . 10.7 g 11 budesonide (PULMICORT) 0.5 mg/2 mL nebulizer solution Take 2 mL (0.5 mg total) by nebulization 2 (two) times a day . 60 mL 11 CALCITRATE 200 mg (950 mg) tablet Take 200 mg by mouth 3 (three) times a day . 0 Fish OiL 1,200 (144-216) mg cap Take 1 capsule by mouth 3 (three) times a day . folic acid (FOLVITE) 1 MG tablet Take 1.5 (one and a half) tablets (1.5 mg total) by mouth daily . furosemide (LASIX) 20 MG tablet Take 1 (one) tablet (20 mg total) by mouth daily . 90 tablet 0 guaiFENesin (MUCINEX) 600 mg 12 hr tablet Take 2 (two) tablets (1,200 mg total) by mouth 2 (two) times a day . ketoconazole (NIZORAL) 2 % cream Apply topically daily to feet . lansoprazole (PREVACID) 30 MG capsule Take 1 capsule by mouth every morning before breakfast on an empty stomach. . 90 capsule 3 levothyroxine (SYNTHROID, LEVOTHROID) 75 MCG tablet Take 1 (one) tablet (75 mcg total) by mouth every morning DOS . 90 tablet 1 magnesium oxide (MAG-OX) 400 mg tablet Take 2.5 (two and a half) tablets (1,000 mg total) by mouth nightly . metaxalone (SKELAXIN) 800 MG tablet Take 1 (one) tablet (800 mg total) by mouth 2 (two) times a day as needed for muscle spasms . 180 tablet 0 metroNIDAZOLE (METROGEL) 1 % gel Apply once daily to entire face mirtazapine (REMERON) 30 MG tablet Take 1 (one) tablet (30 mg total) by mouth nightly Takes additional 7.5 . 90 tablet 0 mirtazapine (REMERON) 7.5 MG tablet Take 1 (one) tablet (7.5 mg total) by mouth nightly . 90 tablet 0 mupirocin (BACTROBAN) 2 % ointment Apply topically 2 (two) times a day . 22 g 0 Nucala 100 mg/mL AtIn Inject 1 mL (100 mg total) under the skin every 28 days . 3 mL 11 omega-3 fatty acids-fish oil 360-1,200 mg cap Daily . 90 capsule 1 predniSONE (DELTASONE) 20 MG tablet Take 1 (one) tablet (20 mg total) by mouth daily . 5 tablet 0 Prolia 60 mg/mL Syrg Inject 60 (sixty) mg under the skin once Q 6 months for 1 dose. Therems-M 9 mg iron-400 mcg Tab Take 1 (one) tablet by mouth daily . ubrogepant (Ubrelvy) 100 mg Tab Take 1 (one) tablet (100 mg total) by mouth at bedtime as needed (migraines) . 10 tablet 3 VITAMIN D3 2,000 unit cap Take 1 (one) capsule by mouth 2 (two) times a day . 0 zinc gluconate 50 mg tablet Take 1 (one) tablet (50 mg total) by mouth daily . fluticasone propionate (FLONASE) 50 mcg/actuation nasal spray Instill 2 (two) sprays into each nostril 2 (two) times a day . 18.2 mL 1 cariprazine (VRAYLAR) 1.5 mg capsule Take 1 (one) capsule (1.5 mg total) by mouth daily . 30 capsule 1 cariprazine (VRAYLAR) 1.5 mg capsule Take 1 (one) capsule (1.5 mg total) by mouth daily . 7 capsule 0 No facility-administered medications prior to visit. Psychiatric ROS: Negative unless noted above. Review of Systems: Constitutional: Denies fever, chills, diaphoresis, malaise Eyes: Denies blurred vision, double vision ENT: Denies nasal congestion, sore throat Neurological: Denies headache, photophobia, weakness, numbness CVS: Denies chest pain or palpitations Respiratory: Denies dyspnea or cough Musculoskeletal: Denies joint pain or muscle aches GI: Denies nausea, vomiting, constipation, or diarrhea : Denies urinary urgency, frequency, or burning Integumentary: Denies itching or rash Endocrine: Denies heat/cold intolerance or weight loss/weight gain Physical Exam: General: Alert and oriented to person, place, and time. Is in no acute distress. Well developed, hydrated, and nourished. Appears stated age. Skin: Skin in warm, dry and intact without rashes or lesions. Appropriate color for ethnicity. Nailbeds pink with no cyanosis or clubbing. Head: The head is normocephalic and atraumatic. Eyes: PERRLA Neck: Supple Respiratory: Respirations are non labored. Musculoskeletal: Active ROM in all four extremities. Neurological: Motor function is normal in upper and lower extremities. No gait abnormalities are appreciated. Mental Status Evaluation: General Appearance & Behavior: age appropriate, pleasant, cooperative, good eye contact Grooming & Hygiene: neat and clean Psychomotor Activity: no psychomotor abnormalities or muscle atrophy noted Speech: rambling Flow of Thought: circumstantial Thought Associations: Intact Content of Thought: No evidence of suicidal ideations/homicidal ideations/psychosis. Mood: anxious Affect: anxious Insight: limited Judgment: fair Orientation: alert and oriented to person, place, time, and circumstances Memory: intact recent and remote Attention: intact Concentration: intact Language: fluent Fund of Knowledge: estimated average intelligence Assessment and Plan/Recommendations Diagnoses/Treatment Plan: Diagnoses and all orders for this visit: Moderate major depression (HCC) - desvenlafaxine succinate 25 mg Tb24; Take 1 (one) tablet (25 mg total) by mouth daily . Anxiety - desvenlafaxine succinate 25 mg Tb24; Take 1 (one) tablet (25 mg total) by mouth daily . Patient educated on side effects to be cautious of with Skelaxin. Will monitor and use low dose of Pristiq. Pharmacological management: Alternative medication plans were discussed with the patient/guardian. All side effects or potential adverse effects were discussed with the patient/guardian. Parent/guardian consented to medication initiation or continuation of the following: Education: Continue medication as prescribed. Please report any side effects or intolerability of the medication. Report any new or worsening symptoms 11/03/2023 12:00 PM TADEO-7 TADEO-7 Score 14 11/03/2023 12:00 PM PHQ-9 PHQ-9 Total Score 19 Follow up in: 2-4 weeks or sooner if needed Treatment options and alternatives reviewed with patient. Risks, benefits, side effects of all psychiatric medications discussed with patient and informed consent obtained. All questions were answered. Miriam Cerna CNP 12/10/2023 3:41 PM documented in this encounter [facility] 12-09-2023 History of Present illness Narrative [facility] DAILY TREATMENT NOTE Today's Date 12/09/2023 Patient Name: Cynthia Cisneros Date of : 1950 Current Visit #: 2 Authorized Visits: 199 Case Name: B shoulder pain History: Pre-Treatment Pain Scale: 6/10 pain in (L) shld, 2/10 pain in (R) shld Symptoms: tightness/burning in (L) shld in to (L) scap/UT region , denies UE radiating pain and or sx to begin Functional Diagnosis: 1. Impingement syndrome of shoulder region, unspecified laterality Clinical Information: Subjective: Pt notes increase in (L) upper (medial) arm pain with radiating tingling in (L) hand and some numbness present after last session which decrease some the next day. Objective: Introduced ex's and manual as per flow sheet. Treatments: Physical Therapy Exercise Log - 12/09/23 1607 OTHER Precautions/Contraindications Supervising PT Vic 10 [id number] Notes B shoulder pain - impingement (L worse than R) Therapeutic Exercise (11080) Intervention refer to manual Parameters scap retraction 2x10 limit arm mvmt and focus more on the scap mvmt. Intervention scap depression 2x10 each challenged more (L) > (R) Parameters Prone row and extension bilateral 2x10 each bilat Intervention Attempt ER / IR isometrics - very gentle keep painfree if possible 3-4 x10 each (only x 5 on (L) for ER due to increased radiating Pain (L) hand and UE), Manual Therapy (12990) Intervention Joint mobilizations inferior B with PROM flexion and abduction 8 mins PT Treatment Times Therex Total Time 34 Manual Therapy Total Time 8 Direct Treatment Time 42 Total Treatment Time 46 Goals: Physical Therapy Ortho Goals: No data was found Patient Education: Quality of movement, Diagnosis and recovery specific education, Pain Management, and VC's, demo, modifications to tolerance, exercise mechanics, body mechanics, posture, anatomy, with patient demonstrated understanding and verbalized understanding. Post-Treatment Pain Scale: 5-6/10 pain in (L) shld with burning and reported light numbness/tingling in (L) hand/delt region, and notes discomfort and muscle fatigue in (L shld/deon region to end. Assessment: Patient had an expected response to treatment. Pt with fair minus tolerance with ex's and manual and performed with intermit increase in pain and sx throughout (especially in (L) hand with isometric ER), and presented with intermit UE/hand radiating pain and sx in (L) > (R) throughout. Pt with empty end feel with more tightness present in (L) UE > (R) with manual Skilled Intervention demonstrated by modifications of treatment per exercise log including plane progressions, increased cueing, increased intensity, increased rest breaks, increased volume, and assessment of patient's response and safety interventions per exercise log. Progress towards goals second visit . Plan for Next Visit: Monitor response to today's treatment session and continue to progress pt toward set goals in POC as tolerated. Issue HEP of tolerable ex's if any and depending on response. Madi Castro PTA STATE LICENSE, [id number] documented in this encounter [facility] 12-07-2023 Telephone encounter Note LAST OV 09/17/23. NEXT OV SCHEDULED FOR 12/25/23. [facility] 12-07-2023 Miscellaneous Notes LAST OV 09/17/23. NEXT OV SCHEDULED FOR 12/25/23. documented in this encounter [facility] 12-04-2023 History of Present illness Narrative [facility] Evaluation Today's Date 12/09/2023 Patient Name: Cynthia Cisneros Date of : 1950 Case Name: B shoulder pain Functional Diagnosis: 1. Impingement syndrome of shoulder region, unspecified laterality 2. Shoulder impingement syndrome, right 3. Shoulder impingement syndrome, left Clinical Information: Subjective Referring Diagnosis: B shoulder pain History of Present Illness Subjective History: Pt reports that her shoulders have been bothering her for quite awhile (couple of yrs). No specific ARELIS. Reports that she had injections in both shoulder 11/04/23 (pt has been having injections for awhile). Pt reports that she has pain into her R biceps and posterolateral shoulder. L shoulder it's mainly in the front. Pt reports that she has pain if she tries to lift something up with her palm down. Pt reports that she has pain at night. Pt also notices electric shock feeling if her arm is propped up to certain positions (like when she's riding in car with arm propped on travel pillow). It will travel down the arm to the middle finger. Previous Imaging: X-ray (unremarkable) Pain Scale Pain location: shoulder Average Pain: 8/10 (2/10 at best) Pain at highest: 8/10 Easing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 interpersonal skills Prevent psychiatric hospitalization Treatment compliance Miriam Cerna CNP 11/04/2023 9:11 AM documented in this encounter [facility] 11-02-2023 History of Present illness Narrative Associated Order(s): LARGE JOINT/BURSA INJECTION AND/OR ASPIRATION: L knee; LARGE JOINT/BURSA INJECTION AND/OR ASPIRATION: R knee Post-Procedure Diagnose(s): Primary osteoarthritis of both knees Chief Complaint Patient presents with Knee Pain Bilateral knee Euflexxa 3 of 3 LARGE JOINT/BURSA INJECTION AND/OR ASPIRATION: L knee Date/Time: 11/02/2023 1:00 PM Performed by: ARABELLA Anderson Authorized by: ARABELLA Anderson Supporting Documentation Indications: pain and osteoarthritis Procedure Details: Location: knee - L knee Local Anesthetic: ethyl chloride (cold spray) Needle size: 22 G Approach: anterolateral Medication Verification: I have personally verified and performed the final check of the medication(s) used in this procedure prior to administration. The following items were included during the verification process for medication(s) administered: drug name, strength, volume, expiration, physical integrity and appearance of the medication(s). Medications administered: 20 mg Sodium Hyaluronate (Viscosup) 20 MG/2ML Patient tolerance: patient tolerated the procedure well with no immediate complications Consent: Consent was obtained prior to the procedure after discussion of the risks, benefits and alternatives, and expected outcomes were discussed with the patient. The possibilities of reaction to medication, bleeding, infection, the need for additional procedures, failure to diagnosis a condition, and creating a complication requiring operation were discussed with the patient. The patient concurred with the proposed plan, giving consent. Preparation: Patient was prepped in the usual sterile fashion. The patient was prepped with alcohol. LARGE JOINT/BURSA INJECTION AND/OR ASPIRATION: R knee Date/Time: 11/02/2023 1:00 PM Performed by: ARABELLA Anderson Authorized by: ARABELLA Anderson Supporting Documentation Indications: pain and osteoarthritis Procedure Details: Location: knee - R knee Local Anesthetic: ethyl chloride (cold spray) Needle size: 22 G Approach: anterolateral Medication Verification: I have personally verified and performed the final check of the medication(s) used in this procedure prior to administration. The following items were included during the verification process for medication(s) administered: drug name, strength, volume, expiration, physical integrity and appearance of the medication(s). Medications administered: 20 mg Sodium Hyaluronate (Viscosup) 20 MG/2ML Patient tolerance: patient tolerated the procedure well with no immediate complications Consent: Consent was obtained prior to the procedure after discussion of the risks, benefits and alternatives, and expected outcomes were discussed with the patient. The possibilities of reaction to medication, bleeding, infection, the need for additional procedures, failure to diagnosis a condition, and creating a complication requiring operation were discussed with the patient. The patient concurred with the proposed plan, giving consent. Preparation: Patient was prepped in the usual sterile fashion. The patient was prepped with alcohol. documented in this encounter [facility] 10-26-2023 History of Present illness Narrative Associated Order(s): LARGE JOINT/BURSA INJECTION AND/OR ASPIRATION: L knee; LARGE JOINT/BURSA INJECTION AND/OR ASPIRATION: R knee Post-Procedure Diagnose(s): Primary osteoarthritis of both knees Chief Complaint Patient presents with Knee Pain Bilateral knee Euflexxa 2 of 3 LARGE JOINT/BURSA INJECTION AND/OR ASPIRATION: L knee Date/Time: 10/26/2023 1:00 PM Performed by: ARABELLA Anderson Authorized by: ARABELLA Anderson Supporting Documentation Indications: pain and osteoarthritis Procedure Details: Location: knee - L knee Local Anesthetic: ethyl chloride (cold spray) Needle size: 22 G Approach: anterolateral Medication Verification: I have personally verified and performed the final check of the medication(s) used in this procedure prior to administration. The following items were included during the verification process for medication(s) administered: drug name, strength, volume, expiration, physical integrity and appearance of the medication(s). Medications administered: 20 mg Sodium Hyaluronate (Viscosup) 20 MG/2ML Patient tolerance: patient tolerated the procedure well with no immediate complications Consent: Consent was obtained prior to the procedure after discussion of the risks, benefits and alternatives, and expected outcomes were discussed with the patient. The possibilities of reaction to medication, bleeding, infection, the need for additional procedures, failure to diagnosis a condition, and creating a complication requiring operation were discussed with the patient. The patient concurred with the proposed plan, giving consent. Preparation: Patient was prepped in the usual sterile fashion. The patient was prepped with alcohol. LARGE JOINT/BURSA INJECTION AND/OR ASPIRATION: R knee Date/Time: 10/26/2023 1:00 PM Performed by: ARABELLA Anderson Authorized by: ARABELLA Anderson Supporting Documentation Indications: pain and osteoarthritis Procedure Details: Location: knee - R knee Local Anesthetic: ethyl chloride (cold spray) Needle size: 22 G Approach: anterolateral Medication Verification: I have personally verified and performed the final check of the medication(s) used in this procedure prior to administration. The following items were included during the verification process for medication(s) administered: drug name, strength, volume, expiration, physical integrity and appearance of the medication(s). Medications administered: 20 mg Sodium Hyaluronate (Viscosup) 20 MG/2ML Patient tolerance: patient tolerated the procedure well with no immediate complications Consent: Consent was obtained prior to the procedure after discussion of the risks, benefits and alternatives, and expected outcomes were discussed with the patient. The possibilities of reaction to medication, bleeding, infection, the need for additional procedures, failure to diagnosis a condition, and creating a complication requiring operation were discussed with the patient. The patient concurred with the proposed plan, giving consent. Preparation: Patient was prepped in the usual sterile fashion. The patient was prepped with alcohol. documented in this encounter [facility] 10-19-2023 History of Present illness Narrative Chief Complaint Patient presents with Knee Pain Bilateral knees - Completed bilateral knee Euflexxa injections on 04/13/23. Patient states that the injections helped with her knee pain but the pain has been returning. HPI: She presents for bilateral knee pain follow-up. She completed bilateral knee Euflexxa injections on 04/13/23. She states that the injections provided great relief until a couple weeks ago. The pain is slowly worsening. The pain is along the anterior aspect of her knees. To recap previous visit: She presents for bilateral knee pain follow-up. She completed a Euflexxa series on 09/09/2022 for both knees. Injections helped alleviate the pain significantly. The pain returned a couple weeks ago. The pain is worsening and interfering with daily activities. She wishes to have repeat injections today. Vitals: 10/19/23 1257 Temp: 97.8 degrees F (36.6 degrees C) TempSrc: Temporal Weight: 50.8 kg (112 lb) Height: 1.6 m (5' 3) Physical Exam: Knee Exam: bilateral ROM: 0-125. Quad tone: fair. Calf supple and nontender. No effusion. Palpation: mild joint line tenderness Angelina's: Negative Posterior Drawer: Negative Varus/Valgus stress: Negative Mazin's: Negative Patellar apprehension: Negative Patellar compression: Negative Distally neurovascular intact with 2+ DP pulse and full sensation in the DP/SP/Tibial nerve distributions. Assessment: ICD-10-CM 1. Primary osteoarthritis of both knees M17.0 Plan: At this time, we have reviewed the past medical notes pertaining to her chief complaint today, as well as her left and right knee x-rays which shows bilateral tricompartmental knee OA as well as signs of calcific changes to the meniscus. At this time, we have discussed the natural history of knee OA with the patient today. We've discussed various treatment options. She has failed steroid injections in the past. She received good relief from the previous ULLOA injections. We will perform repeat bilateral Euflexxa injections today. She will follow-up next week for injection #2. The following week for injection 3. Associated Order(s): LARGE JOINT/BURSA INJECTION AND/OR ASPIRATION: L knee; LARGE JOINT/BURSA INJECTION AND/OR ASPIRATION: R knee Post-Procedure Diagnose(s): Primary osteoarthritis of both knees LARGE JOINT/BURSA INJECTION AND/OR ASPIRATION: L knee Date/Time: 10/19/2023 1:00 PM Performed by: ARABELLA Anderson Authorized by: ARABELLA Anderson Supporting Documentation Indications: pain and osteoarthritis Procedure Details: Location: knee - L knee Local Anesthetic: ethyl chloride (cold spray) Needle size: 22 G Approach: anterolateral Medication Verification: I have personally verified and performed the final check of the medication(s) used in this procedure prior to administration. The following items were included during the verification process for medication(s) administered: drug name, strength, volume, expiration, physical integrity and appearance of the medication(s). Medications administered: 20 mg Sodium Hyaluronate (Viscosup) 20 MG/2ML Patient tolerance: patient tolerated the procedure well with no immediate complications Consent: Consent was obtained prior to the procedure after discussion of the risks, benefits and alternatives, and expected outcomes were discussed with the patient. The possibilities of reaction to medication, bleeding, infection, the need for additional procedures, failure to diagnosis a condition, and creating a complication requiring operation were discussed with the patient. The patient concurred with the proposed plan, giving consent. Preparation: Patient was prepped in the usual sterile fashion. The patient was prepped with alcohol. LARGE JOINT/BURSA INJECTION AND/OR ASPIRATION: R knee Date/Time: 10/19/2023 1:00 PM Performed by: ARABELLA Anderson Authorized by: ARABELLA Anderson Supporting Documentation Indications: pain and osteoarthritis Procedure Details: Location: knee - R knee Local Anesthetic: ethyl chloride (cold spray) Needle size: 22 G Approach: anterolateral Medication Verification: I have personally verified and performed the final check of the medication(s) used in this procedure prior to administration. The following items were included during the verification process for medication(s) administered: drug name, strength, volume, expiration, physical integrity and appearance of the medication(s). Medications administered: 20 mg Sodium Hyaluronate (Viscosup) 20 MG/2ML Patient tolerance: patient tolerated the procedure well with no immediate complications Consent: Consent was obtained prior to the procedure after discussion of the risks, benefits and alternatives, and expected outcomes were discussed with the patient. The possibilities of reaction to medication, bleeding, infection, the need for additional procedures, failure to diagnosis a condition, and creating a complication requiring operation were discussed with the patient. The patient concurred with the proposed plan, giving consent. Preparation: Patient was prepped in the usual sterile fashion. The patient was prepped with alcohol. documented in this encounter [facility] 09-22-2023 History of Present illness Narrative [facility] [address] [facility] [address] [place] [address] Name: Cynthia Cisneros Age: 73 y.o. : 1950 Today's date: 09/22/23 Outpatient Pulmonary Follow-up Note CC: Chief Complaint Patient presents with Follow-up Cynthia Cisneros is a 73 y.o. female who presents to Pulmonary clinic for follow up of COPD, eosinophilic asthma, and bronchiectasis. She was last seen on 01/21/2023. HPI: Cynthia Cisneros is a former smoker with 63 pack years. She quit in 2021. She has a past medical history of COPD, eosinophilic asthma, bronchiectasis, chronic sinusitis status post sinus surgery x 2, coronary artery disease, diabetes, hyperlipidemia, GERD, and osteoarthritis. She is currently taking Bevespi, Pulmicort nebulizer, Flonase, Mucinex, and Nucala. She also uses albuterol nebulizer 3-4x per day. She uses a chest vest and Acapella as needed. 02/24/2023: At our last encounter, she had AOM and I had ordered cefdinir for her. She states this worked very well, however she is starting to have left ear pain and drainage again. She was seen by Dr. Echols with ENT on 02/12/23, and he performed nasal endoscopy which revealed no free pus in the left maxillary sinus cavity or both common sinonasal cavities. According to his note, he provided education and clarifications about her endorsement of green discharge in the left maxillary sinus and cultures. Dr. Echols recommended prophylactic management with normal saline irrigation daily. Today, she is asking for another round of cefdinir, and states this is the only thing which has helped her. I encouraged her to reach out to Dr. Echols, as her only symptoms are the left ear pain and drainage into her throat, however she states that he will not order an antibiotic for her. She states he encouraged her to follow up with Dr. Watters, who previously performed her bilateral sinus surgery, which she does not plan on doing. I encouraged her to reach out to her PCP if she is not wanting to contact her ENT providers. In regards to her breathing, she is doing well. She is compliant with her medications, and is using her IS and Acapella. She has not needed to use her chest vest. She denies any new on increased symptoms. She had a lung cancer screening on 02/06/23 which showed mild upper lobe predominant emphysema, mild bilateral bronchial wall thickening, mild focal bronchiectasis and mild linear fibrosis in the right middle lobe, right lower lobe, and left lower lobe, a 6 mm nodule in the right lower lobe, a 4 mm nodule in the left upper lobe, a 3 mm nodule in the left upper lobe, and a 3 mm nodule in the right lower lobe. She has not recently been ill with any URI symptoms including fever, chills, congestion, rash, or sore throat. She has not been to the ED or hospitalized for breathing related issues since her last visit. 01/21/2023: Today, she endorses shortness of breath with exertion, intermittent cough, intermittent wheezing, post-nasal drip, congestion, dizziness, and recent left ear pain. She had a recent ED visit on 12/31 due to sinusitis and left ear effusion. She was prescribed 10 days of clindamycin, which helped initially. She has noticed her symptoms returning since finishing the Abx on 01/10. She denies fever, chills, and light-headedness. Prior History: She had previously tried Advair and Trelegy, but contracted severe thrush. She has an acapella, which she said is helpful. She also has a Chest Vest, however she has not used it for a few months. She previously followed with Dr. Tomas Matthews with pulmonology in [place]. Previous CT reports have been scanned in, and report from 03/2021 showed moderate to severe emphysema, a right lower lobe 5 mm nodule, and a left lower lobe nodule measuring 1.2 cm with adjacent parenchymal extensions and atelectasis. Follow up CT was done in 05/2021 and was stable. She had another CT chest report from 12/10/2021 which stated there was stable linear basilar scarring, a 6 mm stable lingular nodule, and mediastinal lymphadenopathy. The report does not mention the previously seen left lower lobe nodule, and there are no additional reports scanned into [facility] with resolution of the nodule. There is not mention of bronchiectasis on these imaging reports, however she states that she has been diagnosed with this. She has the chest vest at home, which typically requires a diagnosis of cystic fibrosis or bronchiectasis for approval. I will request a disk of previous imaging from [facility] to review personally. She has a significant ENT history including recurrent sinus infections, sinus surgery, and fungal sinusitis. She follows with Dr. Echols from ENT, and is scheduled for follow up on 02/16/23. She had PFT's on 01/07/23 that showed mild to moderate obstruction in large airways and significant obstruction in midflows. Her FEV1 showed significant response to bronchodilators, and there was profound improvement in midflows. Diffusion capacity was normal when corrected for alveolar volume. She was able to perform her 6 minute walk test, remained >95% of room air, and did not require supplemental oxygen to return to baseline. She does have a history of frequent URIs in youth, particularly bronchitis. She does not have a history of childhood asthma or allergies. She lives alone and has no pets. 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 She denies previous known exposure to asbestos, silica, black mold, chickens or exotic birds. She does have possible exposure to chemical fumes (ammonia, raw latex). She has history of passive smoke exposure in youth. Review of Systems Constitutional: Negative for chills and fever. HENT: Positive for ear pain (effusion present in left ear), postnasal drip and voice change (hoarseness). Negative for congestion. Eyes: Negative. Respiratory: Positive for cough (intermittent), chest tightness (intermittent), shortness of breath (with exertion) and wheezing (intermittent). Cardiovascular: Positive for palpitations (occasionally). Negative for chest pain and leg swelling. Gastrointestinal: Positive for constipation. Negative for abdominal pain and diarrhea. Genitourinary: Negative. Musculoskeletal: Positive for arthralgias. Skin: Positive for rash (intermittent, on upper extremities and anterior bra line - occurs after eating). Allergic/Immunologic: Negative for environmental allergies and food allergies. Neurological: Negative for dizziness and light-headedness. Hematological: Negative. All other systems reviewed and are negative. Tobacco & Smokeless: Tobacco Use Smoking status: Former Packs/day: 1.50 Years: 42.00 Additional pack years: 0.00 Total pack years: 63.00 Types: Cigarettes Start date: 1979 Quit date: 09/17/2021 Years since quittin.0 Passive exposure: Past Smokeless tobacco: Never Tobacco comments: Cigarettes Counseling given: Not Answered Tobacco comments: Cigarettes Objective: Outpatient Medications as of 09/15/2023 Medication Sig acetaminophen (TYLENOL) 500 MG tablet Take 1 (one) tablet (500 mg total) by mouth every 6 (six) hours as needed for pain THREE TIMES DAILY . atogepant (Qulipta) 60 mg Tab Take 1 (one) tablet (60 mg total) by mouth daily . (Patient not taking: Reported on 09/17/2023 .) [place] Saline Gel Apply topically 2 (two) times a day Apply a pea sized amount to both nostrils at bedtime and in a.m. You can use it more often.. budesonide (PULMICORT) 0.5 mg/2 mL nebulizer solution Take 2 mL (0.5 mg total) by nebulization 2 (two) times a day . CALCITRATE 200 mg (950 mg) tablet Take 200 mg by mouth 3 (three) times a day . Fish OiL 1,200 (144-216) mg cap Take 1 capsule by mouth 3 (three) times a day . folic acid (FOLVITE) 1 MG tablet Take 1.5 (one and a half) tablets (1.5 mg total) by mouth daily . guaiFENesin (MUCINEX) 600 mg 12 hr tablet Take 2 (two) tablets (1,200 mg total) by mouth 2 (two) times a day . ketoconazole (NIZORAL) 2 % cream Apply topically daily to feet . lansoprazole (PREVACID) 30 MG capsule Take 1 capsule by mouth every morning before breakfast on an empty stomach. . levothyroxine (SYNTHROID, LEVOTHROID) 75 MCG tablet Take 1 (one) tablet (75 mcg total) by mouth every morning DOS . magnesium oxide (MAG-OX) 400 mg tablet Take 2.5 (two and a half) tablets (1,000 mg total) by mouth nightly . metaxalone (SKELAXIN) 800 MG tablet metroNIDAZOLE (METROGEL) 1 % gel Apply once daily to entire face mirtazapine (REMERON) 30 MG tablet Take 1 (one) tablet (30 mg total) by mouth nightly Takes additional 7.5 . mirtazapine (REMERON) 7.5 MG tablet Take 1 (one) tablet (7.5 mg total) by mouth nightly . omega-3 fatty acids-fish oil 360-1,200 mg cap Daily . Prolia 60 mg/mL Syrg Inject 60 (sixty) mg under the skin once Q 6 months for 1 dose. Therems-M 9 mg iron-400 mcg Tab Take 1 (one) tablet by mouth daily . ubrogepant (Ubrelvy) 100 mg Tab Take 1 (one) tablet (100 mg total) by mouth at bedtime as needed (migraines) . VITAMIN D3 2,000 unit cap Take 1 (one) capsule by mouth 2 (two) times a day . zinc gluconate 50 mg tablet Take 1 (one) tablet (50 mg total) by mouth daily . [DISCONTINUED] albuterol (PROVENTIL) 2.5 mg /3 mL (0.083 %) nebulizer solution Take 3 mL (2.5 mg total) by nebulization every 6 (six) hours as needed for wheezing . [DISCONTINUED] atenoloL (TENORMIN) 50 MG tablet Take 1 (one) tablet (50 mg total) by mouth 2 (two) times a day . [DISCONTINUED] Bevespi Aerosphere 9-4.8 mcg HFAA Inhale 2 puffs 2 (two) times a day . [DISCONTINUED] fluticasone propionate (FLONASE) 50 mcg/actuation nasal spray Instill 2 (two) sprays into each nostril 2 (two) times a day . [DISCONTINUED] furosemide (LASIX) 20 MG tablet Take 1 (one) tablet (20 mg total) by mouth daily . [DISCONTINUED] mupirocin (BACTROBAN) 2 % ointment Apply topically 2 (two) times a day . [DISCONTINUED] Nucala 100 mg/mL AtIn Allergies Allergen Reactions Penicillin G Hives, Shortness Of Breath and Swelling Sulfa (Sulfonamide Antibiotics) Hives, Shortness Of Breath and Swelling Trazodone Hives and Shortness Of Breath Celecoxib Hives Difficulty breathing, swelling Levofloxacin GI Intolerance Nausea and vomiting. [place] Diarrhea Other reaction(s): Vomiting Niacin Unknown Sulfites Wheat Containing Prod Other (See Comments) Cephalexin Rash BP (!) 171/80 (BP Location: Left arm, Patient Position: Sitting, BP Cuff Size: Adult) Pulse 80 Temp 98.3 F (36.8 C) (Temporal) Resp 16 Ht 5' 3 Wt 72.2 kg (159 lb 1.6 oz) SpO2 94% Comment: in room on room air BMI 28.18 kg/m Physical Exam: Vitals reviewed Gen: Alert and oriented x 3, In no apparent distress HEENT: Head: Normocephalic, no lesions, without obvious abnormality. Eye: Normal external eye, conjunctiva, lids cornea, TIMUR. Pharynx: Dental Hygiene adequate. Normal buccal mucosa. Normal pharynx. Neck: nontender, full range of motion, no mass, no focal lymphadenopathy Cardio: regular rate and rhythm, no murmur, brisk capillary refill Resp: clear to auscultation bilaterally, no wheezes or crackles, no tachypnea or accessory muscle use Abd: soft, nontender MSK: Moves all four extremities spontaneously. Neuro: Grossly normal without focal findings Skin: no rashes, no jaundice PFT Results PFT Pre-bronchodilator 01/07/23 1305 FVC PREDICTED 2.73 FVC PRE 2.56 FVC % PRE PREDICTED 94 FVC PRE Z-SCORE FEV1 PREDICTED 2.05 FEV1 PRE 1.32 FEV1 % PRE PREDICTED 65 FEV1 PRE Z-SCORE FEV1/FVC PREDICTED 75 FEV1/FVC PRE 52 FEV1/FVC % PRE PREDICTED 69 FEV1/FVC PRE Z-SCORE FEF25/75 PREDICTED FEF25/75 ACTUAL PRE-BD FEF25/75 PRE % PREDICTED [id number] PRE Z-SCORE PEAK FLOW PREDICTED PEAK FLOW ACTUAL PRE-BD PEAK FLOW PRE % PREDICTED SLOW VITAL CAPACITY PREDICTED SLOW VITAL CAPACITY SLOW VITAL CAPACITY % PREDICTED SLOW VITAL CAPACITY PRE Z-SCORE PFT Post-bronchodilator 01/07/23 1305 FVC POST 2.59 FVC % POST PREDICTED 95 FVC % CHANGE 1 FVC POST Z-SCORE FEV1 POST 1.47 FEV1 % POST PREDICTED 72 FEV1 % CHANGE 11 FEV1 POST Z-SCORE FEV1/FVC POST 57 FEV1/FVC % POST PREDICTED 76 FEV1/FVC % CHANGE 10 FEV1/FVC POST Z-SCORE FEF25/75 ACTUAL POST-BD FEF25/75 POST % PREDICTED FEF25/75 % CHANGE [id number] POST Z-SCORE PEAK FLOW ACTUAL POST-BD PEAK FLOW POST % PREDICTED PEAK FLOW % CHANGE PFT Lung Volumes 01/07/23 1305 TLC 4.61 (% predicted) 101 RV 2.02 (% predicted) 107 PFT Diffusion 01/07/23 1305 DLCO PRE 11.9 DLCO % PRE PREDICTED 62 DLCO/VA PRE 3.49 DLCO/VA % PRE PREDICTED 103 DLCO UNCORRECTED FOR HEMOGLOBIN PREDICTED DLCO UNCORRECTED FOR HEMOGLOBIN DLCO UNCORRECTED FOR HEMOGLOBIN % PREDICTED DLCO UNCORRECTED FOR HEMOGLOBIN PRE Z-SCORE DLCO CORRECTED FOR HEMOGLOBIN PREDICTED DLCO CORRECTED FOR HEMOGLOBIN DLCO CORRECTED FOR HEMOGLOBIN % PREDICTED DLCO CORRECTED FOR HEMOGLOBIN PRE Z-SCORE KCO PREDICTED KCO PRE KCO % PRE PREDICTED KCO PRE Z-SCORE Interpretation: I have personally reviewed the PFT test results and I agree with the interpretation by Dr. Valenzuela. ATS Guidelines met. Good patient effort. Spirometry and lung volumes reveal mild to moderate obstruction. There was significant improvement in FEV1 with administration of a bronchodilator. Diffusing capacity uncorrected for hemoglobin was mildly reduced. Flight Communications Officer comments noted. Patient ambulated on flat ground for 6 minutes. Total distance walked was 366m. Lowest oxygen saturation was 95% on room air. Did not require supplemental oxygen to return to normal. Micki score for dyspnea post-test was 0.5. Imaging: I have personally reviewed LDCT imaging from 02/06/2023 and I agree with the interpretation. EXAMINATION: CT CHEST LOW DOSE LUNG SCREENING - [facility] 02/06/2023 COMPARISON: None. FINDINGS: There is mild upper lobe predominant emphysema along with mild bronchial wall thickening in both lungs, indicative of mild inflammatory airways disease. There is mild linear scarring and mild focal bronchiectasis in the right middle lobe. Minimal linear scarring is also noted in the right lower lobe and left base. There is a 6 mm noncalcified nodule in the superior segment of the right lower lobe. A few additional scattered peripheral and juxtapleural nodules are also noted, including a 4 mm nodule in the periphery of the left upper lobe, a 3 mm juxtapleural nodule in the left upper lobe, and a 3 mm juxtapleural nodule in the posterior basilar segment of the right lower lobe. A tiny calcified granuloma along the posterior right hemidiaphragm is also noted. The central airways are clear. There is no pleural effusion or pneumothorax. The heart is normal in size. There is no pericardial effusion. Mild atherosclerotic changes are seen in the thoracic aorta. No aneurysm is identified. No pathologically enlarged lymph nodes are identified in the mediastinum, maureen, or axilla. There is a small sliding hiatal hernia. No significant abnormality is identified on this limited evaluation of the upper abdomen. There is mild-moderate compression fracture along the superior endplate of T12 with no underlying acute fracture line identified, favoring a chronic fracture. There is minimal retropulsion of the posterior margin of T12, causing mild compression on the thecal sac, but no significant central canal stenosis. The AP dimension of the canal at this level measures 13 mm. IMPRESSION: 1. There are a few small pulmonary nodules and juxtapleural nodules, the largest in the right lower lobe measuring 6 mm. A 6 month follow-up CT chest low-dose screening examination is recommended. 2. Mild upper lobe predominant emphysema as well as mild linear atelectasis/scarring and chronic airways disease in the lung bases. 3. Age indeterminate mild-moderate T12 compression fracture, likely chronic. Follow-up with an MR evaluation of the thoracic spine if clinically indicated. 4. Small sliding hiatal hernia. Lung-RADS 3S - Probably Benign, Significant or Potentially Significant Incidental Findings ([id number]) Management: 6 month LDCT Assessment and Plan: There are no diagnoses linked to this encounter. Continue Bevespi, Pulmicort, Flonase, and Mucinex, as well as albuterol as needed for shortness of breath. Continue Nucala Autoinjector. Will plan to re-order for her when her year is done. Continue IS and Acapella. Use Chest Vest when chest congestion increases. I have placed an order for a follow up CT chest at the 6 month interval to monitor her nodules. RTC in 6 months documented in this encounter [facility] 09-21-2023 Telephone encounter Note This specialty med needs to be sent to [facility] specialty pharmacy. Please resend [facility] 09-21-2023 Miscellaneous Notes This specialty med needs to be sent to [facility] specialty pharmacy. Please resend documented in this encounter [facility] 09-17-2023 Evaluation + Plan note Associated Problem(s): Bipolar disorder (HCC) Previous diagnosis might benefit from further evaluation through pyschiatry given failure of previous medications [facility] 09-17-2023 Miscellaneous Notes Associated Problem(s): Bipolar disorder (HCC) Previous diagnosis might benefit from further evaluation through pyschiatry given failure of previous medications Associated Problem(s): AVN (avascular necrosis of bone) (HCC) Confirmed with CT imaging of the hip back in 2020, s/p hip replacement with Dr. Valencia. Done with PT. Associated Problem(s): Paroxysmal atrial fibrillation (HCC) Remote history, unable to check per chart review. Not present on EKG done in the last visit No Afib on event monitor Associated Problem(s): Bronchiectasis (HCC) Secondary to smoking and COPD , stable with no concerns Associated Problem(s): COPD (chronic obstructive pulmonary disease) (HCC) Secondary to smoking history Using pulmicort , albuterol and bevespi managed with pulmonology Associated Problem(s): Diabetes type 2, controlled (HCC) Diet controlled , repeat blood work today Associated Problem(s): Insomnia CBT-I Internet Resources [email or web address] Sleepio.com SomPerk [email or web address] - FDA cleared CBT-I (formerly SHUTi) Restore (Senegalese available) http://www.cobalttx.com/Products/r estore.html Applications ? CBTi License Clerk - [place] program for Insomnia / Post Traumatic Stress ? Snore Lab free/premium versions - Sleep Disordered Breathing screen Peggy Palomino, Ph.D. [email or web address]. Associated Problem(s): Moderate major depression (HCC) Was tried on several medications including Paxil, Wellbutrin, cymbalta, lexapro, zoloft , prozac, velazodone with minimal tolerance. Currently on mirtazapine 37.5 mg Worsening mood , PHQ9 score 12 and GAD7 score of 18 No SI or HI Concern for bipolar symptoms that needs further evaluation for counseling and psychiatry documented in this encounter [facility] 09-17-2023 Evaluation + Plan note Associated Problem(s): AVN (avascular necrosis of bone) (HCC) Confirmed with CT imaging of the hip back in 2020, s/p hip replacement with Dr. Valencia. Done with PT. [facility] 09-17-2023 Evaluation + Plan note Associated Problem(s): Paroxysmal atrial fibrillation (HCC) Remote history, unable to check per chart review. Not present on EKG done in the last visit No Afib on event monitor [facility] 09-17-2023 Evaluation + Plan note Associated Problem(s): Bronchiectasis (HCC) Secondary to smoking and COPD , stable with no concerns [facility] 09-17-2023 Evaluation + Plan note Associated Problem(s): COPD (chronic obstructive pulmonary disease) (HCC) Secondary to smoking history Using pulmicort , albuterol and bevespi managed with pulmonology [facility] 09-17-2023 Evaluation + Plan note Associated Problem(s): Diabetes type 2, controlled (HCC) Diet controlled , repeat blood work today [facility] 09-17-2023 Evaluation + Plan note Associated Problem(s): Insomnia CBT-I Internet Resources [email or web address] Sleepio.com Iscopia Software.com - FDA cleared CBT-I (formerly SHUTi) Restore (Senegalese available) http://www.StyleSeat/Products/r estore.html Applications ? CBTi License Clerk - [place] program for Insomnia / Post Traumatic Stress ? Snore Lab free/premium versions - Sleep Disordered Breathing screen Peggy Palomino, Ph.D. [email or web address] [facility] 09-17-2023 Evaluation + Plan note Associated Problem(s): Moderate major depression (HCC) Was tried on several medications including Paxil, Wellbutrin, cymbalta, lexapro, zoloft , prozac, velazodone with minimal tolerance. Currently on mirtazapine 37.5 mg Worsening mood , PHQ9 score 12 and GAD7 score of 18 No SI or HI Concern for bipolar symptoms that needs further evaluation for counseling and psychiatry [facility] 09-17-2023 History of Present illness Narrative Chief Complaint Patient presents with Follow-up Depression Anxiety Migraine HPI: Cynthia Cisneros is a 72-year-old female presenting today for follow-up. Has PMH of anxiety, depression, arrhythmias, asthma, GERD, hyperlipidemia, hypertension, hypothyroidism, chronic sinusitis, COPD and skin squamous cell cancer. Used to follow-up since 2018 [facility] in [place], transferring care to [facility]. She has a history of paroxysmal atrial fibrillation and she has not been maintained on chronic anticoagulation. Previous testing came back negative per patient's report. Normal stress testing done 2019 Echo done in 2019 with LVEF of 65% and stage I diastolic dysfunction and trace tricuspid regurg Was offered Eliquis prophylaxis 2.5 mg twice daily but never started on it and scared from it. Left subacute maxillary sinusitis: Chronic, confirmed with CT imaging in the past last was in April 2022. Has been treated over time with several rounds of antibiotics. Last cultures revealed staph infection for which she finished a round of clindamycin last month. Has had at 1 point cultures collected in July showing fusiform bacteria. Patient is frustrated from having to go through recurrent infections, having daily sinus secretions when she does her normal saline rinses. Currently having a new vertigo and pain in the maxillary sinus which is similar to her previous acute infections. Last evaluation with Dr. Echols, showed no free pus in the left maxillary cavity with follow-up scheduled in 3 months Vertigo , pain in the maxillary sinus , watery eyes and left ear pain. Relief mildly with normal saline rinse. Got some green pus today, today he does not have much of the symptoms. Uses daily Sudafed 60 mg 3 times daily and Flonase and going to start taking Lasha. Pulmonology added cefdinir for AOM with effusion in the last visit which seems to help tremendously with her symptoms. Fluid is back and having high pitched voice mainly in the left ear. 04/02 sinus pressure , cough , wheezing , tearful eyes, and headaches got to the [facility] and then back on 04/14 as she was not getting better. Was managed with prednisone 5 days and cefdinir for 10 days for acute bronchitis which got better then when she went back and was provided reassurance to give it more time. She has been having vertigo symptoms , linked to BP of 100/60. Today left ear is hearing and SOB when she was getting her trash out, ratting on the left side of the lung relieved cough. Overall symptoms starting to berry picker. Sudafed and tylenol last night. Doing inhalers with budesonide, albuterol , flonase and Bevespi. Depression: Chronic , used to follow up with psychiatry in the past Was tried on several medications including Paxil , cymbalta, lexapro, zoloft , prozac, velazodone with minimal tolerance. Wellbutrin caused her to vomit in the past. Currently on mirtazapine 37.5 mg which works well for her, requesting refill today Now feels that mirtazapine it is not working , getting irritable and angry over small things , mood is low and more tearful. Has had genetic testing and was put in the past and was put on Pristiq 50 mg and was stopped as she was more ecstatic. Was told in the past has been diagnosed with bipolar 2 disorder. Depakote, lithium and lamictal that didn't work for her Has episodes of up mood swing and maggie/hypomania can go for 10 days. COPD and asthma : Has budesonide and albuterol nebulized in addition to Bevespi and Pulmicort,which control her symptoms. 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 Former smoker quit in 2021 PFTs confirm diagnosis of asthma, following up with pulmonology. Last CT came back showing small nodules with no concerns. Osteoporosis: Unsure of the last DEXA scan she will check her records and let me know. Has been on Prolia for the last 3 years tolerating it well. DEXA scan osteoporosis 2019 Migraines: Chronic, was given Imitrex to see if it helps with her symptoms but patient is worried about its interaction with mirtazapine and causing serotonin syndrome and decided not to take it. Having frequent headaches and taking Tylenol at least 4 times a day. Ubrelvy seems to work better for her as Imitrex was not helpful. Prescription will be sent for 100 mg tablets. Rosacea: Follows up with dermatology in [place] with Dr. Tano Yates for which she is on topical smwsluhqtu-geexpkbevgvxp-mciwkr which seems to control her symptoms. Muscle cramps: Chronic for which she takes metaxalone that she takes 3 times a day. Believes it is coming from her lower back mainly left-sided. Can happen during the day , relieved with chiropractic adjustments , mainly taking it at night. Has been trying to wean off the metaxolone currently at 400 mg BID and then stopped scheduled and is using it more as needed. PT seems to work well for her and has been doing exercises at home which seems to help significantly. Past Medical History: Diagnosis Date Anemia 03/2016 Anxiety 09/2002 General anxiety disorder Arrhythmia Arthritis Asthma Bruises easily Cancer (HCC) 06/1991 Cervical cancer Clostridium difficile infection 1999 COPD (chronic obstructive pulmonary disease) (HCC) Diagnosed several years ago Coronary artery disease Depression Diabetes mellitus (HCC) Borderline GERD (gastroesophageal reflux disease) 05/20/2016 Heart murmur Hyperlipidemia Hypertension Hypothyroidism (acquired) 05/20/2016 Injury of back Osteoporosis 11/25/2022 Squamous cell skin cancer Valvular disease MVP Past Surgical History: Procedure Laterality Date ADENOIDECTOMY 1994 APPENDECTOMY ARTHROPLASTY HIP ROBOTIC EUGENE Left 10/21/2021 Procedure: Left Total Hip Replacement Robotic; Surgeon: Jovanna Valencia MD; Location: Main OR; Service: Ortho-Robotics CARPAL TUNNEL RELEASE Left CATARACT EXTRACTION W/ INTRAOCULAR LENS IMPLANT Bilateral COLON SURGERY WITH ILEOSTOMY CORE DECOMPRESSION OF LEFT FEMEROL HEAD EYE SURGERY Bilateral LASER TO EYES FOR GLAUCOMA HANDS, DUPYTRENS, TRIGGER FINGER, CARPAL TUNNEL Right HYSTERECTOMY 1990 ILEOSTOMY REVERSAL INDEX FINGER SURGERY Right JOINT REPLACEMENT MUSCLE BIOPSY ROTATOR CUFF REPAIR Left SINUS SURGERY January 2018 and nik bullosa resection - Dr. Watters SINUS SURGERY 12/30/2019 balloon sinuplasty - Dr. Key SKIN BIOPSY TONSILLECTOMY TRIGGER FINGER RELEASE Right 03/24/2018 Procedure: RELEASE A1 TOD LEFT MIDDLE,RING, AND SMALL FINGERS WITH CORTISONE INJECTION RIGHT MIDDLE FINGER A1 TOD; Surgeon: Yonas Nguyen MD; Location: [facility] Main OR; Service: Hand TUBAL LIGATION Family History Problem Relation Age of Onset Hypertension Mother Arthritis Mother Cancer Mother Heart disease Mother Hypertension Father Asthma Father COPD Father Diabetes Father Hearing loss Father Heart disease Father Hyperlipidemia Father Heart disease Sister Hypertension Sister Cancer Brother Asthma Brother Diabetes Brother Heart disease Maternal Grandfather Anesthesia problems Neg Hx Social History Tobacco Use Smoking status: Former Packs/day: 1.50 Years: 42.00 Additional pack years: 0.00 Total pack years: 63.00 Types: Cigarettes Start date: 1979 Quit date: 09/17/2021 Years since quittin.0 Passive exposure: Past Smokeless tobacco: Never Tobacco comments: Cigarettes Vaping Use Vaping Use: Never used Substance Use Topics Alcohol use: No Drug use: No Review of Systems Vitals: 09/17/23 1407 Pulse: 74 Resp: 18 Temp: 98 F (36.7 C) SpO2: 95% Weight: 71.7 kg (158 lb) Height: 5' 3 Estimated body mass index is 27.99 kg/m as calculated from the following: Height as of this encounter: 5' 3. Weight as of this encounter: 71.7 kg (158 lb). Physical Exam Constitutional: General: She is not in acute distress. Appearance: She is not ill-appearing. HENT: Head: Normocephalic and atraumatic. Right Ear: Tympanic membrane, ear canal and external ear normal. Left Ear: Ear canal and external ear normal. Ears: Comments: Left middle ear effusion. Nose: Nose normal. Mouth/Throat: Mouth: Mucous membranes are moist. Pharynx: Oropharynx is clear. No oropharyngeal exudate or posterior oropharyngeal erythema. Eyes: Extraocular Movements: Extraocular movements intact. Conjunctiva/sclera: Conjunctivae normal. Pupils: Pupils are equal, round, and reactive to light. Cardiovascular: Rate and Rhythm: Normal rate and regular rhythm. Pulses: Normal pulses. Heart sounds: Normal heart sounds. No murmur heard. No gallop. Pulmonary: Effort: Pulmonary effort is normal. Breath sounds: Wheezing (Generalized) present. No rhonchi or rales. Chest: Chest wall: No tenderness. Abdominal: General: Abdomen is flat. Bowel sounds are normal. There is no distension. Palpations: Abdomen is soft. There is no mass. Tenderness: There is no abdominal tenderness. There is no right CVA tenderness, left CVA tenderness, guarding or rebound. Musculoskeletal: General: No tenderness. Normal range of motion. Cervical back: Normal range of motion and neck supple. No rigidity. No muscular tenderness. Right lower leg: No edema. Left lower leg: No edema. Lymphadenopathy: Cervical: No cervical adenopathy. Skin: General: Skin is warm. Findings: No erythema or rash. Neurological: General: No focal deficit present. Mental Status: She is alert and oriented to person, place, and time. Sensory: No sensory deficit. Motor: No weakness. Gait: Gait normal. Psychiatric: Mood and Affect: Mood normal. Behavior: Behavior normal. Thought Content: Thought content normal. Judgment: Judgment normal. OARRS/NARxCHECK Report Received and Assessed: No data found Date controlled substance agreement signed: No data found Date of last drug screen: No data found Functional Assessment: No data found @Exam@ PHQ9: TADEO-7 Tobacco Counseling: Counseling given: Not Answered Tobacco comments: Cigarettes Patient's Medications New Prescriptions No medications on file Previous Medications ACETAMINOPHEN (TYLENOL) 500 MG TABLET Take 1 (one) tablet (500 mg total) by mouth every 6 (six) hours as needed for pain THREE TIMES DAILY . ALBUTEROL (PROVENTIL) 2.5 MG /3 ML (0.083 %) NEBULIZER SOLUTION Take 3 mL (2.5 mg total) by nebulization every 6 (six) hours as needed for wheezing . ATENOLOL (TENORMIN) 50 MG TABLET Take 1 (one) tablet (50 mg total) by mouth 2 (two) times a day . ATOGEPANT (QULIPTA) 60 MG TAB Take 1 (one) tablet (60 mg total) by mouth daily . AYR SALINE GEL Apply topically 2 (two) times a day Apply a pea sized amount to both nostrils at bedtime and in a.m. You can use it more often.. BEVESPI AEROSPHERE 9-4.8 MCG HFAA Inhale 2 puffs 2 (two) times a day . BUDESONIDE (PULMICORT) 0.5 MG/2 ML NEBULIZER SOLUTION Take 2 mL (0.5 mg total) by nebulization 2 (two) times a day . CALCITRATE 200 MG (950 MG) TABLET Take 200 mg by mouth 3 (three) times a day . FISH OIL 1,200 (144-216) MG CAP Take 1 capsule by mouth 3 (three) times a day . FLUTICASONE PROPIONATE (FLONASE) 50 MCG/ACTUATION NASAL SPRAY Instill 2 (two) sprays into each nostril 2 (two) times a day . FOLIC ACID (FOLVITE) 1 MG TABLET Take 1.5 (one and a half) tablets (1.5 mg total) by mouth daily . FUROSEMIDE (LASIX) 20 MG TABLET Take 1 (one) tablet (20 mg total) by mouth daily . GUAIFENESIN (MUCINEX) 600 MG 12 HR TABLET Take 2 (two) tablets (1,200 mg total) by mouth 2 (two) times a day . KETOCONAZOLE (NIZORAL) 2 % CREAM Apply topically daily to feet . LANSOPRAZOLE (PREVACID) 30 MG CAPSULE Take 1 capsule by mouth every morning before breakfast on an empty stomach. . LEVOTHYROXINE (SYNTHROID, LEVOTHROID) 75 MCG TABLET Take 1 (one) tablet (75 mcg total) by mouth every morning DOS . MAGNESIUM OXIDE (MAG-OX) 400 MG TABLET Take 2.5 (two and a half) tablets (1,000 mg total) by mouth nightly . METAXALONE (SKELAXIN) 800 MG TABLET METRONIDAZOLE (METROGEL) 1 % GEL Apply once daily to entire face MIRTAZAPINE (REMERON) 30 MG TABLET Take 1 (one) tablet (30 mg total) by mouth nightly Takes additional 7.5 . MIRTAZAPINE (REMERON) 7.5 MG TABLET Take 1 (one) tablet (7.5 mg total) by mouth nightly . MUPIROCIN (BACTROBAN) 2 % OINTMENT Apply topically 2 (two) times a day . NUCALA 100 MG/ML ATIN Inject 1 mL (100 mg total) under the skin every 28 days . OMEGA-3 FATTY ACIDS-FISH OIL 360-1,200 MG CAP Daily . PREDNISONE (DELTASONE) 20 MG TABLET Take 1 (one) tablet (20 mg total) by mouth daily . PROLIA 60 MG/ML SYRG Inject 60 (sixty) mg under the skin once Q 6 months for 1 dose. THEREMS-M 9 MG IRON-400 MCG TAB Take 1 (one) tablet by mouth daily . UBROGEPANT (UBRELVY) 100 MG TAB Take 1 (one) tablet (100 mg total) by mouth at bedtime as needed (migraines) . VITAMIN D3 2,000 UNIT CAP Take 1 (one) capsule by mouth 2 (two) times a day . ZINC GLUCONATE 50 MG TABLET Take 1 (one) tablet (50 mg total) by mouth daily . Modified Medications No medications on file Discontinued Medications No medications on file Health Maintenance Due Topic Date Due Colorectal Cancer Screening/Monitoring Never done PT Plan of Care Never done Wellness Visit Never done Diabetic Foot Exam Never done Hepatitis C Screening Never done A1C 05/27/2023 Diabetic Eye Exam 06/18/2023 Mammogram 08/20/2023 Assessment & Plan Problem List Items Addressed This Visit Endocrine Diabetes type 2, controlled (HCC) - Primary Diet controlled , repeat blood work today Relevant Orders TSH with Reflex Free T4 Microalbumin/Creatinine Ratio, UR Random Hemoglobin A1c Lipid Panel Comprehensive Metabolic Panel Respiratory COPD (chronic obstructive pulmonary disease) (HCC) Secondary to smoking history Using pulmicort , albuterol and bevespi managed with pulmonology Bronchiectasis (HCC) Secondary to smoking and COPD , stable with no concerns Cardiovascular and Mediastinum Paroxysmal atrial fibrillation (HCC) Remote history, unable to check per chart review. Not present on EKG done in the last visit No Afib on event monitor Musculoskeletal and Integument AVN (avascular necrosis of bone) (HCC) Confirmed with CT imaging of the hip back in 2020, s/p hip replacement with Dr. Valnecia. Done with PT. Other Bipolar disorder (HCC) Previous diagnosis might benefit from further evaluation through pyschiatry given failure of previous medications Relevant Orders Ambulatory Ref to [facility] Security Agent Ambulatory referral to Behavioral Health Moderate major depression (HCC) Was tried on several medications including Paxil, Wellbutrin, cymbalta, lexapro, zoloft , prozac, velazodone with minimal tolerance. Currently on mirtazapine 37.5 mg Worsening mood , PHQ9 score 12 and GAD7 score of 18 No SI or HI Concern for bipolar symptoms that needs further evaluation for counseling and psychiatry Relevant Orders Ambulatory Ref to [facility] Security Agent Ambulatory referral to Behavioral Health Insomnia CBT-I Internet Resources CBTforInsomnia.[employer] SleepLoggedIn - FDA cleared CBT-I (formerly SHUTi) Restore (Sen[place]alese available) http://www.StyleSeat/Products/r estore.html Applications ? CBTi License Clerk - [place] program for Insomnia / Post Traumatic Stress ? Snore Lab free/premium versions - Sleep Disordered Breathing screen Peggy Palomino, Ph.D. [email or web address]. Other Visit Diagnoses Malignant neoplasm (HCC) I spent 45 minutes with patient reviewing HPI and coordinating plan of care as well as documenting that note. My ongoing relationship with Cynthia Cisneros requires continued responsibility and cognitive effort of being the focal point for all services related to chronic condition(s). Return in about 3 months (around 12/16/2023) for Follow Up. SJ MOTLEY MD [facility] [address] [facility] [address] [facility] [id number] Dept: [phone] documented in this encounter [facility] 09-09-2023 History of Present illness Narrative [facility] DAILY TREATMENT NOTE Today's Date 09/09/2023 Patient Name: Cynthia Cisneros Date of : 1950 Current Visit #: 2 2:34-3:10pm (36 min) Authorized Visits: [id number] Case Name: [id number]-migraines History: Pre-Treatment Pain Scale: 0 Symptoms: stabilized Functional Diagnosis: 1. Dysphagia, unspecified type Clinical Information: Subjective: Patient reports increased SOB and allergies in the past week. Objective Treatments: Speech Exercises - 09/09/[address] Treat Swallow/ Oral Function Complex Intervention Reviewed MBS Parameters Discussed MBS results and areas of pharyngeal and esophageal residue. Provided education regarding swallowing strateiges including small bites/sips, alternating solids and liquids, and using effortful swallow. Comments 2:34-2:54pm Time 20 ST Treat/ Swallow Oral Function Basic Intervention Swallowing exercises Parameters Provided education regarding swallowing exercises to target pharyngeal constriction and base of tongue retraction to reduce pharyngeal residual. Provided verbal and visual models of each exercise. Patient completed 5 repetitions of the eunice maneuver, effortful swallow, and rubi jaw exercise. Comments 2:55-3:10pm Time 15 Speech Treatment Times Oral Function Complex 20 Oral Function Basic 15 Direct Treatment Time 35 Goals: Speech Therapy: Motor Speech: LTG 1: Patient will produce conversational speech that is not effortful with 90-100% intelligibility or greater with no cues by 11/03/2023. ST. Patient will overarticulate consistently initial and final with no cues. 2. Patient will complete speech agility tasks with no cues and reduced effort. Swallowing: LTG 2: Patient will utilize designated swallow strategies during consumption of least restrictive diet with no cues with no overt s/s of aspiration by 11/03/2023. LTG 3: patient will complete a MBS to further assess oropharyngeal swallow function by 10/06/2023 ST. Patient will complete tongue strength/endurance training with use of IOPI device to maximize tongue strength/endurance for swallow and airway protection with no cues to follow evidence based protocol guidelines at a target pressure (80% of max kpa) at 80% accuracy. 4. Patient to improve lingual/palatal strength/coordination for improved bolus control via therapeutic exercises. Patient Education: Verbal HEP with patient verbalized understanding. Post-Treatment Pain Scale: 0 Assessment: Patient had an expected response to treatment. Skilled Intervention demonstrated by modifications of treatment per exercise log including assessment of patient's response and modalities as indicated and safety interventions per exercise log. Progress towards goals as expected. Plan for Next Visit: Treatment visit with focus on swallowing strategies and exercises. [id number] documented in this encounter [facility] 09-09-2023 History of Present illness Narrative [facility] DAILY TREATMENT NOTE Today's Date 09/09/2023 Patient Name: Cynthia Cisneros Date of : 1950 Current Visit #: 2 2:34-3:10pm (36 min) Authorized Visits: [id number] Case Name: ST-migraines History: Pre-Treatment Pain Scale: 0 Symptoms: stabilized Functional Diagnosis: 1. Dysphagia, unspecified type Clinical Information: Subjective: Patient reports increased SOB and allergies in the past week. Objective Treatments: Speech Exercises - 09/09/[address] Treat Swallow/ Oral Function Complex Intervention Reviewed MBS Parameters Discussed MBS results and areas of pharyngeal and esophageal residue. Provided education regarding swallowing strateiges including small bites/sips, alternating solids and liquids, and using effortful swallow. Comments 2:34-2:54pm Time 20 ST Treat/ Swallow Oral Function Basic Intervention Swallowing exercises Parameters Provided education regarding swallowing exercises to target pharyngeal constriction and base of tongue retraction to reduce pharyngeal residual. Provided verbal and visual models of each exercise. Patient completed 5 repetitions of the eunice maneuver, effortful swallow, and rubi jaw exercise. Comments 2:55-3:10pm Time 15 Speech Treatment Times Oral Function Complex 20 Oral Function Basic 15 Direct Treatment Time 35 Goals: Speech Therapy: Motor Speech: LTG 1: Patient will produce conversational speech that is not effortful with 90-100% intelligibility or greater with no cues by 11/03/2023. ST. Patient will overarticulate consistently initial and final with no cues. 2. Patient will complete speech agility tasks with no cues and reduced effort. Swallowing: LTG 2: Patient will utilize designated swallow strategies during consumption of least restrictive diet with no cues with no overt s/s of aspiration by 11/03/2023. LTG 3: patient will complete a MBS to further assess oropharyngeal swallow function by 10/06/2023 ST. Patient will complete tongue strength/endurance training with use of IOPI device to maximize tongue strength/endurance for swallow and airway protection with no cues to follow evidence based protocol guidelines at a target pressure (80% of max kpa) at 80% accuracy. 4. Patient to improve lingual/palatal strength/coordination for improved bolus control via therapeutic exercises. Patient Education: Verbal HEP with patient verbalized understanding. Post-Treatment Pain Scale: 0 Assessment: Patient had an expected response to treatment. Skilled Intervention demonstrated by modifications of treatment per exercise log including assessment of patient's response and modalities as indicated and safety interventions per exercise log. Progress towards goals as expected. Plan for Next Visit: Treatment visit with focus on swallowing strategies and exercises. [id number] documented in this encounter [facility] 08-04-2023 History of Present illness Narrative Images from the original note were not included. RHEUMATOLOGY FOLLOW-UP Patient Name: Cynthia Cisneros : 1950 Medical Record: [id number] PCP: Sj Motley MD Referring provider: REASON FOR REFERRAL CPPD ASSESSMENT AND PLAN Cynthia Cisneros is a 73 y.o. 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 CPPD Secondary OA I have reviewed serologies and x-rays which do not show any evidence of rheumatoid arthritis at this point. I suspect the patient has developed secondary OA secondary to underlying CPPD. She has not had any episodes consistent with pseudogout and overall feels joints are doing well. Hydroxychloroquine previously did not cause much change in symptoms. After discussion with patient, we will hold off on any treatment with colchicine as joint pain is more chronic in nature and less of an acute crystal arthropathy. Myalgias Mild elevation of ESR noted, however, not significantly elevated given patient's age. CRP within normal limits. Presentation does not seem consistent with polymyalgia rheumatica at this point given episodic nature of muscle pain and self resolution. She has some tender points on exam, so fibromyalgia is a possibility. Continue to monitor for any evidence of PMR. Return to clinic in 6 months Please do not hesitate to contact me with any questions or concerns. Brenda Cartagena DO [facility] [address] [address] O: [phone] F: [phone] The above recommendations were discussed with the patient who understands and agrees with the plan. Portions of this note were created with [employer]. Every effort was made to proofread, but sound-alike errors may occasionally occur. Please contact me for any clarification of note contents. HISTORY OF PRESENT ILLNESS Cynthia Cisneros is a 73 y.o. female with who was referred by for evaluation of CPPD. Past medical history includes GERD, T2DM, hypothyroidism, COPD, eosinophilic asthma, CAD, migraine, stable A-fib, AVN, and osteoporosis. Interval history: Patient here for follow-up today. Overall, she is doing well. Joints are not bothering her nearly as much as he did previously. She is concerned about the muscle aching she is experiencing. These episodes are episodic and last a few days. Reports that she has not had an episode in a couple of months. Wonders if she may have fibromyalgia. Initial history: Patient here to establish care with rheumatology today. She previously saw a rheumatology and was diagnosed with pseudogout around 2018. I reviewed her records which show evidence of chondrocalcinosis in bilateral hands as well as bilateral knees. She was placed on hydroxychloroquine. She is not sure that it really made much of a difference in her symptoms. She continues with muscular and joint pain as well. She has had her left hip replaced previously. Continues with joint pain and some stiffness. She has enlarged knuckles bilaterally. Serologies uric acid 6.2 (04/25/2020) RF/CCP negative (2019) ANCA panel negative Pertinent imaging/pathology Chondrocalcinosis present as noted above. Rheumatology medications Hydroxychloroquine-previously was on it for CPPD, but not sure if it helped with her hand/joint pain. SOCIAL AND FAMILY HISTORY Social History: reports that she quit smoking about 22 months ago. Her smoking use included cigarettes. She started smoking about 43 years ago. She has a 63.00 pack-year smoking history. She has been exposed to tobacco smoke. She has never used smokeless tobacco. She reports that she does not drink alcohol and does not use drugs. Family History: family history includes Arthritis in her mother; Asthma in her brother and father; COPD in her father; Cancer in her brother and mother; Diabetes in her brother and father; Hearing loss in her father; Heart disease in her father, maternal grandfather, mother, and sister; Hyperlipidemia in her father; Hypertension in her father, mother, and sister. REVIEW OF SYSTEMS Reviewed in nursing note. Any adjustments/changes noted in HPI. PHYSICAL EXAM Vitals: 08/04/23 1440 BP: (!) 151/81 Pulse: 82 Weight: 70.8 kg (156 lb 1.6 oz) Constitutional: ?No acute distress. Normal appearance. Not?ill-appearing. HENT: Head normocephalic?and atraumatic. Eyes: No discharge.??? Pulmonary: Pulmonary effort is normal. No?respiratory distress. Skin: Warm?and dry. No rash over exposed surfaces. Neurological: Alert. Psychiatric: ???Mood, affect, thought content normal. Musculoskeletal: No recent is detected. Bony hypertrophy present over second and third MCPs. Tender points scattered throughout body, but not particularly present over trapezius muscles or shoulders bilaterally. Trochanteric bursaS tender. PAST MEDICAL HISTORY Past Medical History: Diagnosis Date Anemia 03/2016 Anxiety 09/2002 General anxiety disorder Arrhythmia Arthritis Asthma Bruises easily Cancer (HCC) 06/1991 Cervical cancer Clostridium difficile infection 1999 COPD (chronic obstructive pulmonary disease) (HCC) Diagnosed several years ago Coronary artery disease Depression Diabetes mellitus (HCC) Borderline GERD (gastroesophageal reflux disease) 05/20/2016 Heart murmur Hyperlipidemia Hypertension Hypothyroidism (acquired) 05/20/2016 Injury of back Osteoporosis 11/25/2022 Squamous cell skin cancer Valvular disease MVP MEDICATIONS Reviewed. LABS Pertinent autoimmune serologies noted in HPI. IMAGING Pertinent imaging noted in HPI. Rheumatology Follow-up Visit Intake: Since your last visit: Have you had any illnesses, infections, or hospitalizations []Yes [x]No Please specify: Have you been diagnosed with any other new health conditions? []Yes [x]No Please specify: Are you have any side effects from rheumatology medications? []Yes [x]No Have you started, changed, or stopped any medications? [x]Yes []No Quilpto stopped Symptoms: Are you having morning stiffness? [x]Yes []No How long? Not every day . Better in a few hours Are you having any joint swelling? []Yes [x]No Where? What joints are the most painful? Are you having any of the following symptoms? [x]Dry eyes [x]Dry mouth []Oral ulcers []Nasal ulcers []Eye redness []Vision problems []Blood in urine []Blood in stool []Chest pain [x]Shortness of breath [x]Headaches []Color changes in fingers or toes []Unexplained rash []Photosensitivity []Hair loss []New blood clots Global Assessment: Consider all of the ways your disease affects you, how are you doing (0-10)? 3.0 documented in this encounter [facility] 07-15-2023 History of Present illness Narrative Images from the original note were not included. [facility] [address] [place] [address] Name: Cynthia Cisneros : 1950 Date: 07/15/23 Hearing Aid Contact Note: Ms. Cisneros returned today for hearing aid troubleshooting. She states her hearing aids sound distorted, muffled, and unbalanced (can only hear from right ULLOA) when making bluetooth calls. She states this started in the last few months and when she first got the hearing aids last year she had great sound quality for calls. She states otherwise her hearing aids and new [employer] are working well. She denies change to her hearing. Otoscopy revealed clear canal and intact tympanic membrane at left ear. Visual inspection and listening check of the hearing aid(s) revealed both hearing aids in clean working order. The following was performed with [facility] advice over the phone: Bandwidth is fixed Delete bluetooth pairing and power phone off/on and repair, restarted phone after all changes were made. Update firmware and phone Phone call + lawson: change soft noise reduction to 10. increase MPO. Increase left gain several steps to appear louder than right. Phone call audio routing to bluetooth headset on iPhone. Change receivers on hearing aids. Listening check indicates media (music) is streaming equally through both hearing aids, Ms. Cisneros agreed. Made many practice phone calls and each one was some improvement. Made changes until Ms. Cisneros was satisfied with sound quality. She stated the volume was balanced on both hearing aids, her voice was less echo-y, my voice sounded loud and clear. She used the volume control on her phone during call to improve comfort and quality. Downloaded [employer] sathish, paired hearing aids successfully. Discussed controls and practiced using them. Encouraged her to not over use the sathish as it can be overwhelming and take away from the automatic benefits of the hearing aids. to return as needed for hearing aid care or as scheduled for routine hearing and/or hearing aid needs. Ms. Cisneros expressed understanding of and agreement with the above. Electronically Signed by: Christine Sorensen, CCC-A 07/15/23 1:51 PM documented in this encounter [facility] 07-13-2023 Telephone encounter Note Pt contacted. When I asked her about who prescribed her Nucala, she reported Otf Chan CNP did at the kennel worker's office, when I told her that she would need to call them for this refill, she got upset and said well, dueric, so I told her that we would remove this from the refill request that she sent to Dr. Motley and before I could even ask her anymore questions, she hung up on me, when I tried to call her back, she answered the phone and immediately hung up again. I could not ask her the dose of Remeron that she is currently taking, but according to your last note in April, she was taking 37.5 mg daily. [facility] 07-13-2023 Miscellaneous Notes Pt contacted. When I asked her about who prescribed her Nucala, she reported Otf Chan, TIRE RECAPPER did at the kennel worker's office, when I told her that she would need to call them for this refill, she got upset and said well, duh, so I told her that we would remove this from the refill request that she sent to Dr. Motley and before I could even ask her anymore questions, she hung up on me, when I tried to call her back, she answered the phone and immediately hung up again. I could not ask her the dose of Remeron that she is currently taking, but according to your last note in April, she was taking 37.5 mg daily. Please call the patient back and get information about different dosages of the medication also clarify mirtazapine if she is using the 7.5 or 30 mg. Thank you so much LAST OV 05/07/23. NEXT OV SCHEDULED FOR 09/17/23. documented in this encounter [facility] 07-13-2023 Telephone encounter Note Please call the patient back and get information about different dosages of the medication also clarify mirtazapine if she is using the 7.5 or 30 mg. Thank you so much [facility] 07-13-2023 Telephone encounter Note LAST OV 05/07/23. NEXT OV SCHEDULED FOR 09/17/23. [facility] 07-07-2023 Instructions Rohan Palencia MD - 07/07/2023 1:37 PM EST Ms. Cisneros, We are seeing you today for your diagnosis of migraines. See below for your treatment plan. If you have any questions, please do not hesitate to call. Acute Headache Treatment: 1) Continue using your Ubrelvy tabs at earliest sign of migraine. May repeat once in 2 hours. Headache Preventive Treatment: *Please keep in mind that it takes 4-6 weeks for the medication to start working well and 2-3 months at the appropriate dose before deciding if it will be useful or not. If it is not helping at all by this time, then we will discuss other medications to try. Supplements may take 3-6 months until you see full effect. 1) Qulipta (atogepant) 60mg once daily. It was a pleasure taking care of you, and we all wish you the best of health. For concerns regarding medicines, adjusting doses or other questions: Call : [phone] (for Neurology / Dr. Palencia) - leave a message if no one is available. [employer] Sathish - the best way to send messages directly to your doctors, or request Drug Refills. Call [phone] to set up [employer] on your smart phone or computer. Mailing Address: Attn: Dr. Rohan Palencia [facility] [address] [id number] [address] Our documented in this encounter [facility] 07-07-2023 History of Present illness Narrative Neurology New Consult Note [facility] Date of Service: 07/07/23 Service Type: New Patient consultation Patient: Cynthia Cisneros Date of : 1950 (72 y.o.) Referring Provider: Refer to consult order in electronic medical record PCP: Sj Motley MD ASSESSMENT: Cynthia Cisneros is a 72 y.o. woman who presents for headaches. Ms. Cisneros presents for evaluation and management of headaches. They meet ICHD-3 criteria for migraine without aura, based on the presence of at least 5 attacks meeting the following: unilateral location, throbbing/pulsating quality, moderate or severe pain intensity, and worsening or causing avoidance of physical activity, headache duration of between 4-72 hours, and nausea and/or vomiting. It is considered episodic given the frequency of 9 headache days per month, of which all are migrainous. It is not intractable. Based on the history and physical exam obtained today, further imaging of the brain is not indicated. For acute treatment, triptans are contraindicated due to age, risk of heart disease. Ubrelvy works well. For preventive treatment, she failed atenolol, poor tolerance to venlafaxine, amitriptyline, duloxetine, oxcarbazepine, gabapentin for unclear reasons. Failed previous topiramate trial due to cognitive impairment. Given very good response to Ubrelvy, will try for Qulipta or Nurtec as maintenance prevention. She reports that after talking or eating/chewing for a long time, her tongue gets tired. She has no dysarthria on exam for me and no obvious dysphagia issues. She wanted to see speech therapy which I think is reasonable. It may be related to her extensive sinus surgeries in the past. Evidence of mild cognitive impairment on exam. No impairment in ADLs. Could be related to underlying mood disorder and poor sleep. For now, I will jus tmonitor it. Problems addressed in this visit: 1. Migraine without status migrainosus, not intractable, unspecified migraine type PLAN: Medication changes: Qulipta 60mg once daily. Continue PRN Ubrelvy 100mg at migraine onset. Labs: none Imaging: none Other: Speech therapy evaluation Follow Up: 6 months Attestation: Discussed risks, benefits and alternatives regarding treatment options, and diagnoses with Ms. Cisneros. Answered questions and we discussed plan at length. I independently reviewed past history, previous clinic notes, lab results, allergies, medications and radiology images which are summarized in this note with annotations wherever appropriate. Time statement: A total of 67 minutes were spent on this encounter. This includes the following patient-centered activities: 1. Preparation for patient's visit (reviewing previous chart, current medical records, previous history, exam, test, procedure, and medications) 2. Face to face encounter obtaining history from the patient/family/caregivers; performing evaluation and examination; ordering medications, tests, or procedures; referring and communicating with other healthcare professionals; counseling and education of the patient/family/caregiver; independently interpreting results (tests, labs, procedures, imaging) and communicating and explaining results to the patient/family/caregiver 3. Coordination of care; preparing and printing discharge instruction and any educational material for the patient and caregivers. Documenting clinical information in the electronic and other health records. Reviewing OARRS as needed. Rohan Palencia MD Staff Neurologist [facility] [address] [facility] [id number] [address] [facility] 07/07/23 Subjective Chief Complaint/Reason for Consult: headaches Informant(s): self History of Present Illness: Cynthia Cisneros is a 72 y.o. woman who reports a pertinent history of CAD, COPD, HTN, HLD, T2DM, hypothyroidism, osteoporosis, and anxiety/depression, who presents to the office today for headaches. Headache history review Somewhat challenging historian Onset/history: Headaches started 7 years ago. Worsened the last 2 years. Said initially she thought they came from her sinuses but then started getting more posterior ones from the shoulders. These went away when she got shoulder injections but lately the shoulder injections help for shorter and shorter times. Prodrome: no Aura: no Location: Varies, sometimes frontal, sometimes posterior/neck/shoulders, sometimes top of the head Quality: Throbbing/Pounding and Pressure/Squeezing Pain intensity: 8/10 Duration of episodes: Depends, sometimes a couple hours, sometimes all day Frequency (number of total headache days): Don't keep track - does not seem to be that often from what I can gather but I genuinely could not get an answer out of her as to the frequency Associated symptoms: Nausea/vomiting: nausea Photophobia/phonophobia: Yes and Yes Dysautonomic features (unilateral tearing, conjunctival injection, ptosis, nasal congestion/rhinorrhea, ear fullness): No Associated sensory features: No Any strokelike features? No Other symptoms? Dizzy sometimes, lots of chronic sinus congestion on the left side and tearing but that's not headache-specific Post-ictal symptoms: no Most bothersome symptom: pain Disability: no Aggravating factors: Worse with physical activity: Yes Worse with bending over: Yes Worse with cough: Yes Menstrual period involvement: N/A Other aggravating factors: Worse with any position change (not specific to any one position) Triggers: stress Relieving factors: Massage therapy, steroid shots in shoulders cause substantial relief but only for a while. Medications tried: Preventive medications: Tried gabapentin, pregabalin, oxcarbazepine, carbamazepine (?for back pain?) which caused side effects but she can't tell me what they were. Atenolol not helpful. Benzos all caused agitation (been on many for anxiety over the years). Says she's tried every antidepressant I listed (including some new ones that it is unlikely she's actually tried) and they caused adverse effects except for mirtazapine which she's currently on and is the first med that's helped Abortive medications: Tylenol, ibuprofen not helpful. Ubrelvy actually worked well. Says she's tried multiple muscle relaxers and Skelaxin is the only one she can tolerate. Toradol helped in the past. Zofran, Phenergan, Reglan don't help Current medications: Ubrelvy Response to current medications: good Risk Factors: No head trauma, prior intracranial surgeries, or [employer] infections Family history: migraine headaches in grandmother Previous evaluation: Yes, reports had a previous neurologist Associated health issues: Sleep apnea symptoms: None Sleep length per night: 5 hrs/night on average Mood: Depressed and Anxious Energy: does not have low energy Stress: yes, stressors include health issues, family issues Fluids: is drinking moderate amounts of fluids Caffeine: 4-5 cups coffee daily Meals: Well Balanced Exercise: Occasional walking, stretches She says in addition to the headaches, she wanted to ask about her tongue. She says if she talks too long or chews/eats a lot, her tongue gets tired and she has trouble forming words. Resting for a couple minutes resolves this. No pain associated with it. Review of Systems: All systems reviewed and negative except those documented in the History of Present Illness (HPI). Pertinent positives are documented below: + headaches Medical/Surgical/Social/Family Histories: Pertinent Family Hx: migraines in grandmother Social situation: retired, former smoker, no alcohol/drug use She has a past medical history of Anemia (03/2016), Anxiety (09/2002), Arrhythmia, Arthritis, Asthma, Bruises easily, Cancer ([facility]) (06/1991), Clostridium difficile infection (1999), COPD (chronic obstructive pulmonary disease) (), Coronary artery disease, Depression, Diabetes mellitus (), GERD (gastroesophageal reflux disease) (05/20/2016), Heart murmur, Hyperlipidemia, Hypertension, Hypothyroidism (acquired) (05/20/2016), Injury of back, Osteoporosis (11/25/2022), Squamous cell skin cancer, and Valvular disease. She has a past surgical history that includes Hysterectomy (1990); INDEX FINGER SURGERY (Right); tonsillectomy; Eye surgery (Bilateral); Cataract extraction w/ intraocular lens implant (Bilateral); CORE DECOMPRESSION OF LEFT FEMEROL HEAD; Rotator cuff repair (Left); Hands, Dupytrens, Trigger Finger, Carpal Tunnel (Right); Carpal tunnel release (Left); Muscle biopsy; Colon surgery; ILEOSTOMY REVERSAL; Sinus surgery; Trigger Finger Release (Right, 03/24/2018); ARTHROPLASTY HIP ROBOTIC (Left, 10/21/2021); Sinus surgery (12/30/2019); Appendectomy; Tubal ligation; Joint replacement; Skin biopsy; and adenoidectomy (1994). She family history includes Arthritis in her mother; Asthma in her brother and father; COPD in her father; Cancer in her brother and mother; Diabetes in her brother and father; Hearing loss in her father; Heart disease in her father, maternal grandfather, mother, and sister; Hyperlipidemia in her father; Hypertension in her father, mother, and sister. She reports that she quit smoking about 21 months ago. Her smoking use included cigarettes. She started smoking about 43 years ago. She has a 63.00 pack-year smoking history. She has been exposed to tobacco smoke. She has never used smokeless tobacco. She reports that she does not drink alcohol and does not use drugs. Allergies: Allergies: Penicillin g, Sulfa (sulfonamide antibiotics), Trazodone, Celecoxib, Doxycycline, Levofloxacin, [place], [place] carbonate, Niacin, Sulfites, and Cephalexin HOME Medications: Current Outpatient Medications Medication Instructions acetaminophen (TYLENOL) 500 mg, Oral, Every 6 hours PRN, THREE TIMES DAILY albuterol (PROVENTIL) 2.5 mg, Nebulization, Every 4 to 6 hours as needed, DOS albuterol (PROVENTIL) 2.5 mg, Nebulization, Every 6 hours PRN atenoloL (TENORMIN) 50 mg, Oral, 2 times daily [place] Saline Gel Topical, 2 times daily, Apply a pea sized amount to both nostrils at bedtime and in a.m. You can use it more often. Bevespi Aerosphere 9-4.8 mcg HFAA inhale 2 puffs by mouth and INTO THE LUNGS every morning and every evening budesonide (PULMICORT) 0.5 mg, Nebulization, 2 times daily Calcitrate 200 mg, Oral, 3 times daily Fish OiL 1,200 (144-216) mg cap 1 capsule, Oral, 3 times daily fluticasone propionate (FLONASE) 50 mcg/actuation nasal spray 2 sprays, Nasal, 2 times daily folic acid (FOLVITE) 1.5 mg, Oral, Daily furosemide (LASIX) 20 mg, Oral, Daily guaiFENesin (MUCINEX) 1,200 mg, Oral, 2 times daily ketoconazole (NIZORAL) 2 % cream Topical, Daily, to feet lansoprazole (PREVACID) 30 MG capsule Take 1 capsule by mouth every morning before breakfast on an empty stomach. levothyroxine (SYNTHROID, LEVOTHROID) 75 mcg, Oral, Every morning, DOS magnesium oxide (MAG-OX) 1,000 mg, Oral, Nightly metaxalone (SKELAXIN) 800 MG tablet metroNIDAZOLE (METROGEL) 1 % gel Apply once daily to entire face mirtazapine (REMERON) 30 mg, Oral, Nightly, Takes additional 7.5 mirtazapine (REMERON) 7.5 mg, Oral, Nightly mupirocin (BACTROBAN) 2 % ointment Topical, 2 times daily Nucala 100 mg/mL AtIn No dose, route, or frequency recorded. omega-3 fatty acids-fish oil 360-1,200 mg cap Daily ondansetron (ZOFRAN-ODT) 4 mg, Oral, Every 8 hours PRN Prolia 60 mg, Subcutaneous, Once, Q 6 months Qulipta 60 mg, Oral, Daily terbinafine HCL (LAMISIL) 250 mg, Oral, Daily Therems-M 9 mg iron-400 mcg Tab 1 tablet, Oral, Daily Ubrelvy 100 mg, Oral, At bedtime as needed VITAMIN D3 2,000 unit cap 1 capsule, Oral, 2 times daily zinc gluconate 50 mg, Oral, Daily Objective OBJECTIVE: Physical Examination: BP (!) 162/77 (BP Location: Left arm, Patient Position: Sitting, BP Cuff Size: Adult) Pulse 74 Resp 16 SpO2 96% GENERAL: General Appearance: In NAD HEENT: Normocephalic. No conjunctival injection. Ears appear normal. No substantial sinus drainage. See below for vision/hearing Neck: Supple, no focal bony tenderness, no mass lesions Respiratory Effort: Normal Extremities: No edema Skin: No rashes visualized MSK: No joint deformities Headache specific exam shows mild scalp tenderness. No scalp mass. No focal areas of tenderness over the mastoid, greater or lesser occipital nerve exit points. no vascular thickening or other mass lesions noted over the temples. TMJ is nontender, and unrestricted. There is mild left sided sinus tenderness around the eyes. There is moderate tenderness over the cervical paraspinal muscles, trapezius muscles, not so much the scapular muscles. There is mild myofascial trigger point tenderness elsewhere in the shoulders and the low back. Fundoscopic Exam: Normal; no optic nerve edema or hemorrhages visualized Neurologic Exam: MENTAL STATUS: Alertness, Attention Span & Concentration: awake, alert, some difficulty with sustained attention. Language: Normal Speech: Normal Orientation: Oriented to person, place, time/date, and situation Memory, Recent & Remote: 2/3 recall at 5 minutes Fund of Knowledge: Normal CRANIAL NERVES: II - Visual Loja: Normal II, III: Pupils: PERRL, no RAPD III, IV, : Eye Movements: Normal (EOMI, No ptosis, No nystagmus) V - Facial Sensation: Normal VII: Face Symmetry & Strength: Normal VIII - Hearing: Normal to finger rub b/l IX, X - Palate: Normal, elevates symmetrically XI - Shoulder Shrug: Normal XII - Tongue Protrusion: Normal, symmetric MOTOR: Muscle Strength Right Left 5 Shoulder Abduction (Deltoid) 5 5 Elbow Flexion (Biceps) 5 5 Elbow Extension (Triceps) 5 5 Wrist Flexion 5 5 Wrist Extension 5 5 Finger Abduction (Interossei) 5 Right Left 5 Hip Extension 5 5 Hip Flexion (Iliopsoas) 5 5 Knee Extension (Quads) 5 5 Knee Flexion (Hamstrings) 5 5 Dorsiflexion (Anterior Tibialis) 5 5 Plantar Flexion (Gastrocnemius) 5 MOTOR OLIVAS: 5 Normal (Normal Power) 4 Mild Weakness (Movement against moderate resistance over a full range of motion) 3 Moderate Weakness (Movement against gravity only over almost full range of motion) 2 Severe Weakness (Movement with gravity eliminated over almost full range of motion) 1 Trace Movement (Contraction visible or palpable without effective movement of the joint) 0 No Movement (No contraction visible or palpable) VINNIE Unable to Assess Normal Bulk and Tone, no atrophy SENSATION: Fine Touch: Normal Pinprick: Normal Proprioception: Normal Vibration: Decreased slightly in toes bilaterally Temperature: Normal REFLEXES: Right Reflexes Left 2+ Biceps 2+ 2+ Triceps 2+ 2+ Brachioradialis 2+ 2+ Patellar 2+ 1+ Achilles 1+ Down Plantar Response (Babinski) Down REFLEXES OLIVAS: 4+ Sustained Clonus 3+ Brisk 2+ Normal 1+ Diminished 0 Absent VINNIE Unable to Assess COORDINATION: Coordination [id number]: Normal Ruggiero Finger taps: normal Coordination [id number]-[id number]: normal Diadochokinesis: normal STANCE AND GAIT: Base/Stance: Normal/ narrow base Gait: Antalgic, somewhat stiff at the low back Gait Aid Used During Exam: None Gait Assistance Required During Exam: None MOVEMENT DISORDERS EXAMINATION: Tremor - no tremors noted Bradykinesia - None Rigidity - None Dyskinesia/Choreoathetosis - None Dystonia/Myoclonus/Tics - None PRIOR TESTING: Imaging: No brain imaging. MRI L-spine from 12/07/18 with moderate degenerative disease, with moderate bilateral foraminal stenosis at L3-4, 4-5, and L5-S1. Labs: RF, CCP, CRP all low. ESR 38. A1c 6.3. CMP with Na 132, otherwise unremarkable. LDL 119. TSH WNL. documented in this encounter [facility] 07-03-2023 History of Present illness Narrative Images from the original note were not included. RHEUMATOLOGY NEW PATIENT VISIT Patient Name: Cynthia Cisneros : 1950 Medical Record: [id number] PCP: Sj Motley MD Referring provider: Charly Dias REASON FOR REFERRAL Polyarthralgia/CPPD ASSESSMENT AND PLAN Cynthia Cisneros is a 72 y.o. female who is being seen for evaluation of polyarthralgia/CPPD. Polyarthralgia/CPPD Chondrocalcinosis noted in hands and bilateral knees previously. Hydroxychloroquine did not cause much improvement. No active synovitis on exam today, bony hypertrophy present. Possible that CPPD is causing secondary osteoarthritis. Plan: Update x-rays of bilateral hands, ESR/CRP, and repeat RF/CCP ordered. Return to clinic in 1 month Please do not hesitate to contact me with any questions or concerns. Brenda Cartagena DO [facility] [address] [place] [address] O: [phone] F: [phone] The above recommendations were discussed with the patient who understands and agrees with the plan. Portions of this note were created with [employer]. Every effort was made to proofread, but sound-alike errors may occasionally occur. Please contact me for any clarification of note contents. HISTORY OF PRESENT ILLNESS Cynthia Cisneros is a 72 y.o. female with who was referred by Charly Dias for evaluation of prior history of CPPD. Past medical history includes GERD, T2DM, hypothyroidism, COPD, eosinophilic asthma, CAD, migraine, paroxysmal A-fib, AVN, osteoporosis. History of: (Check Shaina is Positive. Empty Box is Negative) []Raynaud's []Skin thickening [x]Puffy Fingers []Photosensitivity []Psoriasis []Dactylitis []Inflammatory eye disease []Inflammatory bowel disease []Pericarditis []Pleural effusions []Miscarriages []Blood clots Patient here to establish care with rheumatology today. She previously saw a rheumatology and was diagnosed with pseudogout around 2018. I reviewed her records which show evidence of chondrocalcinosis in bilateral hands as well as bilateral knees. She was placed on hydroxychloroquine. She is not sure that it really made much of a difference in her symptoms. She continues with muscular and joint pain as well. She has had her left hip replaced previously. Continues with joint pain and some stiffness. She has enlarged knuckles bilaterally. I reviewed the notes from prior [employer]. Serologies uric acid 6.2 (04/25/2020) RF/CCP negative (2019) ANCA panel negative Pertinent imaging/pathology Chondrocalcinosis present as noted above. Rheumatology medications Hydroxychloroquine-previously was on it for CPPD, but not sure if it helped with her hand/joint pain. SOCIAL AND FAMILY HISTORY Social History: Retired Prior smoker (smoked 35 years and stopped in September 2020) No alcohol No drug use Family History: Mother with rheumatoid arthritis REVIEW OF SYSTEMS Reviewed in nursing note. Any adjustments/changes noted in HPI. PHYSICAL EXAM Vitals: 07/03/23 1406 BP: (!) 145/86 Pulse: 77 Weight: 72 kg (158 lb 12.8 oz) Constitutional: ?No acute distress. Normal appearance. Not?ill-appearing. HENT: Head normocephalic?and atraumatic. Eyes: No discharge.??? Pulmonary: Pulmonary effort is normal. No?respiratory distress. Skin: Warm?and dry. No rash over exposed surfaces. Neurological: Alert. Psychiatric: ???Mood, affect, thought content normal. Musculoskeletal: No synovitis detected, but significant bony hypertrophy present along second and third MCPs. Shira disease also present throughout hands bilaterally. Multiple tender points also noted. PAST MEDICAL HISTORY Past Medical History: Diagnosis Date Anemia 03/2016 Anxiety 09/2002 General anxiety disorder Arrhythmia Arthritis Asthma Bruises easily Cancer (HCC) 06/1991 Cervical cancer Clostridium difficile infection 1999 COPD (chronic obstructive pulmonary disease) (HCC) Diagnosed several years ago Coronary artery disease Depression Diabetes mellitus (HCC) Borderline GERD (gastroesophageal reflux disease) 05/20/2016 Heart murmur Hyperlipidemia Hypertension Hypothyroidism (acquired) 05/20/2016 Injury of back Osteoporosis 11/25/2022 Squamous cell skin cancer Valvular disease MVP MEDICATIONS Reviewed. LABS Pertinent autoimmune serologies noted in HPI. IMAGING Pertinent imaging noted in HPI. Rheumatology New Patient Review of Systems: Constitutional:?? []Fever [x]Fatigue []Unexpected weight loss Eyes:?? [x]Change in visual acuity [x]Dry eyes []Redness HENT:? []Oral/nasal ulcers [x]Dry mouth []Difficulty swallowing Cardiovascular:?? []Chest pain []Palpitations []Edema Respiratory:?? []Cough [x]Shortness of breath GI:?? []Abdominal pain []Diarrhea []Constipation []Bloody stools : []Dysuria []Hematuria Musculoskeletal: See HPI Integument:?? []Rash []Hair loss Neurologic:?? [x]Headache [x]Dizziness Psychiatric:?? [x]Depression [x]Anxiety Endocrine:?? []Polydipsia []Polyuria Lymphatic:?? []Swollen glands Allergic/Immunologic: [x]Seasonal allergies [x]Frequent infections documented in this encounter [facility] 06-25-2023 History of Present illness Narrative Associated Order(s): LG Jt Injection/Arthrocentesis: L glenohumeral; LG Jt Injection/Arthrocentesis: R glenohumeral Post-Procedure Diagnose(s): Shoulder impingement syndrome, right; Shoulder impingement syndrome, left 06/25/23 Cynthia Chacon Eddy 1950 Chief Complaint Patient presents with Injections Bilat shoulders HISTORY of Present Illness: Cynthia Cisneros is a 72 y.o. year old female that presents today with bilateral shoulder pain. Cynthia Cisneros has had injections in the past. Last injection to right/left shoulder was 03/20/23 and they tolerated well. They have been treated w/ oral medications & injections. Patient denies new injury to the knees. The following portions of the patient's history were reviewed and updated as appropriate: allergies, current medications, past surgical history and problem list PAST MEDICAL HISTORY The patient's Medications, Allergies, Past Surgical History, Medical History, Family History and Social History were reviewed and can be found in their online medical record, and I have reviewed this information with Cynthia Cisneros at the time of their visit. They are significant for Past Medical History: Diagnosis Date Anemia 03/2016 Anxiety 09/2002 General anxiety disorder Arrhythmia Arthritis Asthma Bruises easily Cancer (HCC) 06/1991 Cervical cancer Clostridium difficile infection 1999 COPD (chronic obstructive pulmonary disease) (HCC) Diagnosed several years ago Coronary artery disease Depression Diabetes mellitus (HCC) Borderline GERD (gastroesophageal reflux disease) 05/20/2016 Heart murmur Hyperlipidemia Hypertension Hypothyroidism (acquired) 05/20/2016 Injury of back Osteoporosis 11/25/2022 Squamous cell skin cancer Valvular disease MVP IMAGING Notes: none new today. Reviewed from last visit. IMPRESSION And PLAN: Cortisone injection today. Will follow up in 3 months if effective. Call if no improvement in 10 days. 1. Shoulder impingement syndrome, right 2. Shoulder impingement syndrome, left LG Jt Injection/Arthrocentesis: L glenohumeral Performed by: Charly Dias CNP Authorized by: Charly Dias CNP CPT 12495 - Large Joint Arthrocentesis: Consent given by: Patient Time out: Immediately prior to the procedure a time out was called Physician or proceduralist has discussed critical or nonroutine steps, procedure duration and anticipated blood loss: Yes Supporting Documentation: Indications: Pain and diagnostic evaluation Procedure Details: Location: Shoulder Site: L glenohumeral Prep: patient was prepped and draped in usual sterile fashion Needle size: 22 G Approach: Posterior Medications: 40 mg triamcinolone acetonide 40 mg/mL Anesthetic used: Lidocaine 1% Anesthetic amount (mL): 2 Patient tolerance: Patient tolerated the procedure well with no immediate complications LG Jt Injection/Arthrocentesis: R glenohumeral Performed by: Charly Dias CNP Authorized by: Charly Dias CNP CPT 18092 - Large Joint Arthrocentesis: Consent given by: Patient Time out: Immediately prior to the procedure a time out was called Physician or proceduralist has discussed critical or nonroutine steps, procedure duration and anticipated blood loss: Yes Supporting Documentation: Indications: Pain and diagnostic evaluation Procedure Details: Location: Shoulder Site: R glenohumeral Prep: patient was prepped and draped in usual sterile fashion Needle size: 22 G Approach: Posterior Medications: 40 mg triamcinolone acetonide 40 mg/mL Anesthetic amount (mL): 2 Patient tolerance: Patient tolerated the procedure well with no immediate complications Charly Dias CNP documented in this encounter [facility] 06-17-2023 History of Present illness Narrative Images from the original note were not included. [facility] [address] [place] [address] Name: Cynthia Cisneros : 1950 Date: 06/17/23 Hearing Aid Contact Note: Ms. Cisneros returned today for routine hearing aid follow up with the following agenda/requests per her [employer] message: 1. Need a new hearing aid [facility] [employer] 2. Need you to re-bluetooth my hearing aids to my iPhone. 3. Would like you to add the extra ,nylon wire, which helps to hold my left hearing aid in my ear.. The same addl't nylon wire that you previously added to my right hearing aid. Works great. Otoscopy revealed clear canals and visualized tympanic membranes, bilaterally. Visual inspection and listening check of the hearing aid(s) revealed excellent function. Cleaned, changed wax traps and domes and retention strips bilaterally. Connected to software to check for any updates but there were none available. Did not make any programming changes per pt request. Connected hearing aids to Bluetooth on iPhone and tested with playing music and discussed to how to use it for phone calls. Provided an in-warranty new [facility] [employer] (as her's is intermittent and not functioning well). Ms. Cisneros to return as needed for hearing aid care or as scheduled in six months for routine hearing and/or hearing aid needs. Ms. Cisneros expressed understanding of and agreement with the above. Electronically Signed by: Christine Sorensen, CCC-A 06/17/23 2:38 PM documented in this encounter [facility] 05-18-2023 History of Present illness Narrative PA initiated for Pantoprazole 40 mg tablert for pt. Documentation received from [facility] that this has been denied. Documentation scanned to chart. documented in this encounter [facility] 05-12-2023 Telephone encounter Note Last OV 05/07/23. Next 09/17/23. [facility] 05-12-2023 Miscellaneous Notes Last OV 05/07/23. Next 09/17/23. documented in this encounter [facility] 05-07-2023 Evaluation + Plan note Associated Problem(s): Chronic left-sided low back pain with left-sided sciatica Currently stable almost weaned off metaxalone. PT seems to help significantly. Unable to do massage therapy. Continue to monitor and use metaxalone as needed at this time and instead of scheduled. Reassured that she can use Tylenol 1000 every 8 hours as needed. [facility] 05-07-2023 Miscellaneous Notes Associated Problem(s): Chronic left-sided low back pain with left-sided sciatica Currently stable almost weaned off metaxalone. PT seems to help significantly. Unable to do massage therapy. Continue to monitor and use metaxalone as needed at this time and instead of scheduled. Reassured that she can use Tylenol 1000 every 8 hours as needed. Associated Problem(s): Paroxysmal atrial fibrillation (HCC) Remote history, unable to check per chart review. Not present on EKG today. Discussed risks and benefits of not following through with this diagnosis. Agreeable to wear event monitor to check on the burden of the A-fib. Reassured patient in case she needs to be on anticoagulation. Associated Problem(s): Migraine without status migrainosus, not intractable Stable on Ubrelvy which was prescribed for patient today. Associated Problem(s): Bipolar disorder (HCC) Stable on mirtazapine, refill today. No new worsening symptoms. Associated Problem(s): Wheezing Recurrent, need to rule out infection. Sending patient for chest x-ray today. Slightly lower O2 sats at 93% today from 97% specially with exertion. We will treat for COPD exacerbation versus bronchitis with steroids and adding doxycycline. Previous intolerance as she was taking on empty stomach. Provided patient with Zofran and advised to take with meals to see if she tolerates it better. Several drug allergies including levofloxacin and penicillins. Plan was discussed at length with patient if intolerant to doxycycline will need to go back to cefdinir which she tolerated in the past at the [facility]. If chest x-ray detects pneumonia then she needs to go to the ER for possible IV antibiotics and closer observation specially in the setting of intolerance to a lot of oral options. Associated Problem(s): Bronchiectasis (HCC) Could be related to COPD flare having increased wheezing today. documented in this encounter [facility] 05-07-2023 Evaluation + Plan note Associated Problem(s): Paroxysmal atrial fibrillation (HCC) Remote history, unable to check per chart review. Not present on EKG today. Discussed risks and benefits of not following through with this diagnosis. Agreeable to wear event monitor to check on the burden of the A-fib. Reassured patient in case she needs to be on anticoagulation. [facility] 05-07-2023 Evaluation + Plan note Associated Problem(s): Migraine without status migrainosus, not intractable Stable on Ubrelvy which was prescribed for patient today. [facility] 05-07-2023 Evaluation + Plan note Associated Problem(s): Bipolar disorder (HCC) Stable on mirtazapine, refill today. No new worsening symptoms. [facility] 05-07-2023 Evaluation + Plan note Associated Problem(s): Wheezing Recurrent, need to rule out infection. Sending patient for chest x-ray today. Slightly lower O2 sats at 93% today from 97% specially with exertion. We will treat for COPD exacerbation versus bronchitis with steroids and adding doxycycline. Previous intolerance as she was taking on empty stomach. Provided patient with Zofran and advised to take with meals to see if she tolerates it better. Several drug allergies including levofloxacin and penicillins. Plan was discussed at length with patient if intolerant to doxycycline will need to go back to cefdinir which [facility]. If chest x-ray detects pneumonia then she needs to go to the ER for possible IV antibiotics and closer observation specially in the setting of intolerance to a lot of oral options. [facility] 05-07-2023 Evaluation + Plan note Associated Problem(s): Bronchiectasis (HCC) Could be related to COPD flare having increased wheezing today. [facility] 05-07-2023 History of Present illness Narrative Chief Complaint Patient presents with Follow-up 3 month f/u Gap Closure (Health Maintenance) Colorectal Cancer Screening/Monitoring Never done PT Plan of Care Never done Wellness Visit Never done Foot Exam Never done Hepatitis C Screening Never done Mammogram Never done Falls Risk Assessment due on 02/10/2023 Sequential Influenza Vaccine(1) due on 04/17/2023 HPI: Cynthia Cisneros is a 72-year-old female presenting today for follow-up. Has PMH of anxiety, depression, arrhythmias, asthma, GERD, hyperlipidemia, hypertension, hypothyroidism, chronic sinusitis, COPD and skin squamous cell cancer. Used to follow-up since 2018 [facility] in [place], transferring care to [facility]. She has a history of paroxysmal atrial fibrillation and she has not been maintained on chronic anticoagulation. Previous testing came back negative per patient's report. Normal stress testing done 2019 Echo done in 2019 with LVEF of 65% and stage I diastolic dysfunction and trace tricuspid regurg Was offered Eliquis prophylaxis 2.5 mg twice daily but never started on it and scared from it. Left subacute maxillary sinusitis: Chronic, confirmed with CT imaging in the past last was in April 2022. Has been treated over time with several rounds of antibiotics. Last cultures revealed staph infection for which she finished a round of clindamycin last month. Has had at 1 point cultures collected in July showing fusiform bacteria. Patient is frustrated from having to go through recurrent infections, having daily sinus secretions when she does her normal saline rinses. Currently having a new vertigo and pain in the maxillary sinus which is similar to her previous acute infections. Last evaluation with Dr. Echols, showed no free pus in the left maxillary cavity with follow-up scheduled in 3 months Vertigo , pain in the maxillary sinus , watery eyes and left ear pain. Relief mildly with normal saline rinse. Got some green pus today, today he does not have much of the symptoms. Uses daily Sudafed 60 mg 3 times daily and Flonase and going to start taking Lasha. Pulmonology added cefdinir for AOM with effusion in the last visit which seems to help tremendously with her symptoms. Fluid is back and having high pitched voice mainly in the left ear. 04/02 sinus pressure , cough , wheezing , tearful eyes, and headaches got to [facility] and then back on 04/14 as she was not getting better. Was managed with prednisone 5 days and cefdinir for 10 days for acute bronchitis which got better then when she went back and was provided reassurance to give it more time. She has been having vertigo symptoms , linked to BP of 100/60. Today left ear is hearing and SOB when she was getting her trash out, ratting on the left side of the lung relieved cough. Overall symptoms starting to berry picker. Sudafed and tylenol last night. Doing inhalers with budesonide, albuterol , flonase and Bevespi. Depression: Chronic , used to follow up with psychiatry in the past Was tried on several medications including Paxil , cymbalta, lexapro, zoloft , prozac, velazodone with minimal tolerance. Currently on mirtazapine 37.5 mg which works well for her, requesting refill today COPD and asthma : Has budesonide and albuterol nebulized in addition to Bevespi and Pulmicort,which control her symptoms. 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 Former smoker quit in 2021 PFTs confirm diagnosis of asthma, following up with pulmonology. Osteoporosis: Unsure of the last DEXA scan she will check her records and let me know. Has been on Prolia for the last 3 years tolerating it well. DEXA scan osteoporosis 2018 Migraines: Chronic, was given Imitrex to see if it helps with her symptoms but patient is worried about its interaction with mirtazapine and causing serotonin syndrome and decided not to take it. Having frequent headaches and taking Tylenol at least 4 times a day. Ubrelvy seems to work better for her as Imitrex was not helpful. Prescription will be sent for 100 mg tablets. Rosacea: Follows up with dermatology in [place] with Dr. Tano Yates for which she is on topical [id number] which seems to control her symptoms. Muscle cramps: Chronic for which she takes metaxalone that she takes 3 times a day. Believes it is coming from her lower back mainly left-sided. Can happen during the day , relieved with chiropractic adjustments , mainly taking it at night. Has been trying to wean off the metaxolone currently at 400 mg BID and then stopped scheduled and is using it more as needed. PT seems to work well for her and has been doing exercises at home which seems to help significantly. Past Medical History: Diagnosis Date Anemia 03/2016 Anxiety 09/2002 General anxiety disorder Arrhythmia Arthritis Asthma Bruises easily Cancer (HCC) 06/1991 Cervical cancer Clostridium difficile infection 1999 COPD (chronic obstructive pulmonary disease) ([facility]) Diagnosed several years ago Coronary artery disease Depression Diabetes mellitus (HCC) Borderline GERD (gastroesophageal reflux disease) 05/20/2016 Heart murmur Hyperlipidemia Hypertension Hypothyroidism (acquired) 05/20/2016 Injury of back Osteoporosis 11/25/2022 Squamous cell skin cancer Valvular disease MVP Past Surgical History: Procedure Laterality Date ADENOIDECTOMY 1994 APPENDECTOMY ARTHROPLASTY HIP ROBOTIC EUGENE Left 10/21/2021 Procedure: Left Total Hip Replacement Robotic; Surgeon: Jovanna Valencia MD; Location: Main OR; Service: Ortho-Robotics CARPAL TUNNEL RELEASE Left CATARACT EXTRACTION W/ INTRAOCULAR LENS IMPLANT Bilateral COLON SURGERY WITH ILEOSTOMY CORE DECOMPRESSION OF LEFT FEMEROL HEAD EYE SURGERY Bilateral LASER TO EYES FOR GLAUCOMA HANDS, DUPYTRENS, TRIGGER FINGER, CARPAL TUNNEL Right HYSTERECTOMY 1990 ILEOSTOMY REVERSAL INDEX FINGER SURGERY Right JOINT REPLACEMENT MUSCLE BIOPSY ROTATOR CUFF REPAIR Left SINUS SURGERY January 2018 and nik bullosa resection - Dr. Watters SINUS SURGERY 12/30/2019 balloon sinuplasty - Dr. Key SKIN BIOPSY TONSILLECTOMY TRIGGER FINGER RELEASE Right 03/24/2018 Procedure: RELEASE A1 TOD LEFT MIDDLE,RING, AND SMALL FINGERS WITH CORTISONE INJECTION RIGHT MIDDLE FINGER A1 TOD; Surgeon: Yonas Nguyen MD; Location: [facility] Main OR; Service: Hand TUBAL LIGATION Family History Problem Relation Age of Onset Hypertension Mother Arthritis Mother Cancer Mother Heart disease Mother Hypertension Father Asthma Father COPD Father Diabetes Father Hearing loss Father Heart disease Father Hyperlipidemia Father Heart disease Sister Hypertension Sister Cancer Brother Asthma Brother Diabetes Brother Heart disease Maternal Grandfather Anesthesia problems Neg Hx Social History Tobacco Use Smoking status: Former Packs/day: 1.50 Years: 42.00 Additional pack years: 0.00 Total pack years: 63.00 Types: Cigarettes Start date: 1979 Quit date: 09/17/2021 Years since quittin.6 Passive exposure: Past Smokeless tobacco: Never Tobacco comments: Cigarettes Vaping Use Vaping Use: Never used Substance Use Topics Alcohol use: No Drug use: No Review of Systems Vitals: 05/07/23 1418 05/07/23 1429 BP: (!) 169/73 119/67 BP Location: Right arm Right arm Patient Position: Sitting Sitting BP Cuff Size: X-large Adult X-large Adult Pulse: 79 76 Resp: 16 16 Temp: 98.4 F (36.9 C) TempSrc: Infrared SpO2: 94% 95% Weight: 73.3 kg (161 lb 11.2 oz) Height: 5' 3 Estimated body mass index is 28.64 kg/m as calculated from the following: Height as of this encounter: 5' 3. Weight as of this encounter: 73.3 kg (161 lb 11.2 oz). Physical Exam Constitutional: General: She is not in acute distress. Appearance: She is not ill-appearing. HENT: Head: Normocephalic and atraumatic. Right Ear: Tympanic membrane, ear canal and external ear normal. Left Ear: Ear canal and external ear normal. Ears: Comments: Left middle ear effusion. Nose: Nose normal. Mouth/Throat: Mouth: Mucous membranes are moist. Pharynx: Oropharynx is clear. No oropharyngeal exudate or posterior oropharyngeal erythema. Eyes: Extraocular Movements: Extraocular movements intact. Conjunctiva/sclera: Conjunctivae normal. Pupils: Pupils are equal, round, and reactive to light. Cardiovascular: Rate and Rhythm: Normal rate and regular rhythm. Pulses: Normal pulses. Heart sounds: Normal heart sounds. No murmur heard. No gallop. Pulmonary: Effort: Pulmonary effort is normal. Breath sounds: Wheezing (Generalized) present. No rhonchi or rales. Chest: Chest wall: No tenderness. Abdominal: General: Abdomen is flat. Bowel sounds are normal. There is no distension. Palpations: Abdomen is soft. There is no mass. Tenderness: There is no abdominal tenderness. There is no right CVA tenderness, left CVA tenderness, guarding or rebound. Musculoskeletal: General: No tenderness. Normal range of motion. Cervical back: Normal range of motion and neck supple. No rigidity. No muscular tenderness. Right lower leg: No edema. Left lower leg: No edema. Lymphadenopathy: Cervical: No cervical adenopathy. Skin: General: Skin is warm. Findings: No erythema or rash. Neurological: General: No focal deficit present. Mental Status: She is alert and oriented to person, place, and time. Sensory: No sensory deficit. Motor: No weakness. Gait: Gait normal. Psychiatric: Mood and Affect: Mood normal. Behavior: Behavior normal. Thought Content: Thought content normal. Judgment: Judgment normal. OARRS/NARxCHECK Report Received and Assessed: No data found Date controlled substance agreement signed: No data found Date of last drug screen: No data found Functional Assessment: No data found @Exam@ PHQ9: TADEO-7 Tobacco Counseling: Counseling given: Not Answered Tobacco comments: Cigarettes Patient's Medications New Prescriptions DOXYCYCLINE HYCLATE (VIBRA-TABS) 100 MG TABLET Take 1 (one) tablet (100 mg total) by mouth 2 (two) times a day for 10 days . ONDANSETRON (ZOFRAN-ODT) 4 MG DISINTEGRATING TABLET Dissolve 1 (one) tablet (4 mg total) on top of tongue every 8 (eight) hours as needed for nausea . PREDNISONE (DELTASONE) 10 MG TABLET Take 4 (four) tablets (40 mg total) by mouth daily for 5 days . UBROGEPANT (UBRELVY) 100 MG TAB Take 1 (one) tablet (100 mg total) by mouth at bedtime as needed (migraines) . Previous Medications ACETAMINOPHEN (TYLENOL) 500 MG TABLET Take 1 (one) tablet (500 mg total) by mouth every 6 (six) hours as needed for pain THREE TIMES DAILY . ALBUTEROL (PROVENTIL) 2.5 MG/0.5 ML NEBU Take 0.5 mL (2.5 mg total) by nebulization every 4 to 6 hours as needed (shortness of breath, wheezes) DOS . ATENOLOL (TENORMIN) 50 MG TABLET Take 1 (one) tablet (50 mg total) by mouth 2 (two) times a day . AYR SALINE GEL Apply topically 2 (two) times a day Apply a pea sized amount to both nostrils at bedtime and in a.m. You can use it more often.. BEVESPI AEROSPHERE 9-4.8 MCG HFAA inhale 2 puffs by mouth and INTO THE LUNGS every morning and every evening BUDESONIDE (PULMICORT) 0.5 MG/2 ML NEBULIZER SOLUTION Take 2 mL (0.5 mg total) by nebulization 2 (two) times a day . CALCITRATE 200 MG (950 MG) TABLET Take 200 mg by mouth 3 (three) times a day . DENOSUMAB (PROLIA) 60 MG/ML SYRG Inject 60 (sixty) mg under the skin once Q 6 months . FISH OIL 1,200 (144-216) MG CAP Take 1 capsule by mouth 3 (three) times a day . FOLIC ACID (FOLVITE) 1 MG TABLET Take 1.5 (one and a half) tablets (1.5 mg total) by mouth daily . FUROSEMIDE (LASIX) 20 MG TABLET Take 1 (one) tablet (20 mg total) by mouth daily . GUAIFENESIN (MUCINEX) 600 MG 12 HR TABLET Take 2 (two) tablets (1,200 mg total) by mouth 2 (two) times a day . KETOCONAZOLE (NIZORAL) 2 % CREAM Apply topically daily to feet . LANSOPRAZOLE (PREVACID) 30 MG CAPSULE TAKE 1 CAPSULE BY MOUTH EVERY MORNING before BREAKFAST ON AN EMPTY STOMACH LEVOTHYROXINE (SYNTHROID, LEVOTHROID) 75 MCG TABLET Take 1 (one) tablet (75 mcg total) by mouth every morning DOS . MAGNESIUM OXIDE (MAG-OX) 400 MG TABLET Take 2.5 (two and a half) tablets (1,000 mg total) by mouth nightly . METRONIDAZOLE (METROGEL) 1 % GEL Apply once daily to entire face MUPIROCIN (BACTROBAN) 2 % OINTMENT Apply topically 2 (two) times a day . NUCALA 100 MG/ML ATIN OMEGA-3 FATTY ACIDS-FISH OIL 360-1,200 MG CAP Daily . THEREMS-M 9 MG IRON-400 MCG TAB Take 1 (one) tablet by mouth daily . VITAMIN D3 2,000 UNIT CAP Take 1 (one) capsule by mouth 2 (two) times a day . Modified Medications Modified Medication Previous Medication FLUTICASONE PROPIONATE (FLONASE) 50 MCG/ACTUATION NASAL SPRAY fluticasone propionate (FLONASE) 50 mcg/actuation nasal spray Instill 2 (two) sprays into each nostril 2 (two) times a day . Instill 2 (two) sprays into each nostril 2 (two) times a day . MIRTAZAPINE (REMERON) 30 MG TABLET mirtazapine (REMERON) 30 MG tablet Take 1 (one) tablet (30 mg total) by mouth nightly Takes additional 7.5 . Take 1 (one) tablet (30 mg total) by mouth nightly Takes additional 7.5 . MIRTAZAPINE (REMERON) 7.5 MG TABLET mirtazapine (REMERON) 7.5 MG tablet Take 1 (one) tablet (7.5 mg total) by mouth nightly . Take 1 (one) tablet (7.5 mg total) by mouth nightly . Discontinued Medications No medications on file Health Maintenance Due Topic Date Due Colorectal Cancer Screening/Monitoring Never done PT Plan of Care Never done Wellness Visit Never done Foot Exam Never done Hepatitis C Screening Never done Mammogram Never done Falls Risk Assessment 02/10/2023 Assessment & Plan Problem List Items Addressed This Visit Respiratory Chronic maxillary sinusitis Bronchiectasis (HCC) Could be related to COPD flare having increased wheezing today. Cardiovascular and Mediastinum Migraine without status migrainosus, not intractable Stable on Ubrelvy which was prescribed for patient today. Relevant Medications ubrogepant (Ubrelvy) 100 mg Tab Paroxysmal atrial fibrillation (HCC) Remote history, unable to check per chart review. Not present on EKG today. Discussed risks and benefits of not following through with this diagnosis. Agreeable to wear event monitor to check on the burden of the A-fib. Reassured patient in case she needs to be on anticoagulation. Relevant Orders Cardiac event monitor Nervous and Auditory Chronic left-sided low back pain with left-sided sciatica Currently stable almost weaned off metaxalone. PT seems to help significantly. Unable to do massage therapy. Continue to monitor and use metaxalone as needed at this time and instead of scheduled. Reassured that she can use Tylenol 1000 every 8 hours as needed. Other Bipolar disorder (HCC) Stable on mirtazapine, refill today. No new worsening symptoms. Relevant Medications mirtazapine (REMERON) 30 MG tablet mirtazapine (REMERON) 7.5 MG tablet Muscle cramps Wheezing Recurrent, need to rule out infection. Sending patient for chest x-ray today. Slightly lower O2 sats at 93% today from 97% specially with exertion. We will treat for COPD exacerbation versus bronchitis with steroids and adding doxycycline. Previous intolerance as she was taking on empty stomach. Provided patient with Zofran and advised to take with meals to see if she tolerates it better. Several drug allergies including levofloxacin and penicillins. Plan was discussed at length with patient if intolerant to doxycycline will need to go back to cefdinir which she tolerated in the past at [facility]. If chest x-ray detects pneumonia then she needs to go to the ER for possible IV antibiotics and closer observation specially in the setting of intolerance to a lot of oral options. Relevant Medications doxycycline hyclate (VIBRA-TABS) 100 MG tablet ondansetron (ZOFRAN-ODT) 4 MG disintegrating tablet predniSONE (DELTASONE) 10 MG tablet Other Relevant Orders XR Chest AP/PA and LAT Other Visit Diagnoses Cardiac arrhythmia, unspecified cardiac arrhythmia type - Primary Relevant Orders ECG 12 Lead (Completed) Cardiac event monitor I spent 45 minutes with patient reviewing HPI and coordinating plan of care as well as documenting that note. Return in about 4 months (around 09/06/2023) for Follow Up. SJ MOTLEY MD [place] [id number] [facility] [address] [place] [id number] Dept: [phone] documented in this encounter [facility] 04-24-2023 Telephone encounter Note Already sent in 3 days ago [facility] 04-24-2023 Miscellaneous Notes Already sent in 3 days ago documented in this encounter [facility] 04-13-2023 History of Present illness Narrative Associated Order(s): LARGE JOINT/BURSA INJECTION AND/OR ASPIRATION: L knee; LARGE JOINT/BURSA INJECTION AND/OR ASPIRATION: R knee Post-Procedure Diagnose(s): Primary osteoarthritis of both knees Chief Complaint Patient presents with Follow-up Bilateral knee pain, Euflexxa #3 of 3 LARGE JOINT/BURSA INJECTION AND/OR ASPIRATION: L knee Date/Time: 04/13/2023 1:20 PM Performed by: Julianna Osullivan MD Authorized by: Julianna Osullivan MD Supporting Documentation Indications: pain and osteoarthritis Procedure Details: Location: knee - L knee Local Anesthetic: ethyl chloride (cold spray) Needle size: 22 G Approach: anterolateral Medication Verification: I have personally verified and performed the final check of the medication(s) used in this procedure prior to administration. The following items were included during the verification process for medication(s) administered: drug name, strength, volume, expiration, physical integrity and appearance of the medication(s). Medications administered: 20 mg Sodium Hyaluronate (Viscosup) 20 MG/2ML Patient tolerance: patient tolerated the procedure well with no immediate complications Consent: Consent was obtained prior to the procedure after discussion of the risks, benefits and alternatives, and expected outcomes were discussed with the patient. The possibilities of reaction to medication, bleeding, infection, the need for additional procedures, failure to diagnosis a condition, and creating a complication requiring operation were discussed with the patient. The patient concurred with the proposed plan, giving consent. Preparation: Patient was prepped in the usual sterile fashion. The patient was prepped with alcohol. LARGE JOINT/BURSA INJECTION AND/OR ASPIRATION: R knee Date/Time: 04/13/2023 1:20 PM Performed by: Julianna Osullivan MD Authorized by: Julianna Osullivan MD Supporting Documentation Indications: pain and osteoarthritis Procedure Details: Location: knee - R knee Local Anesthetic: ethyl chloride (cold spray) Needle size: 22 G Approach: anterolateral Medication Verification: I have personally verified and performed the final check of the medication(s) used in this procedure prior to administration. The following items were included during the verification process for medication(s) administered: drug name, strength, volume, expiration, physical integrity and appearance of the medication(s). Medications administered: 20 mg Sodium Hyaluronate (Viscosup) 20 MG/2ML Patient tolerance: patient tolerated the procedure well with no immediate complications Consent: Consent was obtained prior to the procedure after discussion of the risks, benefits and alternatives, and expected outcomes were discussed with the patient. The possibilities of reaction to medication, bleeding, infection, the need for additional procedures, failure to diagnosis a condition, and creating a complication requiring operation were discussed with the patient. The patient concurred with the proposed plan, giving consent. Preparation: Patient was prepped in the usual sterile fashion. The patient was prepped with alcohol. Chief Complaint Patient presents with Follow-up Bilateral knee pain, Euflexxa #3 of 3 LARGE JOINT/BURSA INJECTION AND/OR ASPIRATION: L knee Date/Time: 04/13/2023 1:20 PM Performed by: Julianna Osullivan MD Authorized by: Julianna Osullivan MD Supporting Documentation Indications: pain and osteoarthritis Procedure Details: Location: knee - L knee Local Anesthetic: ethyl chloride (cold spray) Needle size: 22 G Approach: anterolateral Medication Verification: I have personally verified and performed the final check of the medication(s) used in this procedure prior to administration. The following items were included during the verification process for medication(s) administered: drug name, strength, volume, expiration, physical integrity and appearance of the medication(s). Medications administered: 20 mg Sodium Hyaluronate (Viscosup) 20 MG/2ML Patient tolerance: patient tolerated the procedure well with no immediate complications Consent: Consent was obtained prior to the procedure after discussion of the risks, benefits and alternatives, and expected outcomes were discussed with the patient. The possibilities of reaction to medication, bleeding, infection, the need for additional procedures, failure to diagnosis a condition, and creating a complication requiring operation were discussed with the patient. The patient concurred with the proposed plan, giving consent. Preparation: Patient was prepped in the usual sterile fashion. The patient was prepped with alcohol. LARGE JOINT/BURSA INJECTION AND/OR ASPIRATION: R knee Date/Time: 04/13/2023 1:20 PM Performed by: Julianna Osullivan MD Authorized by: Julianna Osullivan MD Supporting Documentation Indications: pain and osteoarthritis Procedure Details: Location: knee - R knee Local Anesthetic: ethyl chloride (cold spray) Needle size: 22 G Approach: anterolateral Medication Verification: I have personally verified and performed the final check of the medication(s) used in this procedure prior to administration. The following items were included during the verification process for medication(s) administered: drug name, strength, volume, expiration, physical integrity and appearance of the medication(s). Medications administered: 20 mg Sodium Hyaluronate (Viscosup) 20 MG/2ML Patient tolerance: patient tolerated the procedure well with no immediate complications Consent: Consent was obtained prior to the procedure after discussion of the risks, benefits and alternatives, and expected outcomes were discussed with the patient. The possibilities of reaction to medication, bleeding, infection, the need for additional procedures, failure to diagnosis a condition, and creating a complication requiring operation were discussed with the patient. The patient concurred with the proposed plan, giving consent. Preparation: Patient was prepped in the usual sterile fashion. The patient was prepped with alcohol. FAMILIA Perla was acting as a scribe today for this note. I have performed all essential components of the history, and physical exam. I have confirmed the diagnosis and developed a plan of care at this visit. I have reviewed the note following the visit and have add edits as appropriate to my evaluation and plan of care. Julianna Osullivan MD documented in this encounter [facility] 04-10-2023 History of Present illness Narrative Documentation from [employer] received approving appeal that was filed on behalf of pt for Ubrelvy. This has been approved from 08/17/22-08/16/23. Pt has been notified and documentation and scanned to chart. Appeal initiated for Ubrelvy 50 mg through [employer] for pt. Documentation faxed to them. Awaiting review. Documentation scanned to chart. documented in this encounter [facility] 04-07-2023 History of Present illness Narrative Appeal initiated for Ubrelvy 50 mg through [employer] for pt. Documentation faxed to them. Awaiting review. Documentation scanned to chart. documented in this encounter [facility] 03-31-2023 History of Present illness Narrative Pt consult time: [id number] Pt enters clinic noting increased LB discomfort into the tailbone region. Pt reports no increase in pain and sx after last session and notes did well, in regards to balance and stability. Pt notes increased balance issues and increased dizziness over the past few days which has gotten worse noting, I feel weird, reporting increased head pressure, dizziness, and pressure in ears and eyes. Pt notes having this toward the beginning of the year reporting that is was fluid in ear, which subsided with antibiotics from her doctor. BP 168/84 with SPO2 98% on room air. Pt present with increased instability with multi Lobs with just amb around clinic. 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 Pt left without being seen for therapy and no charges rendered. documented in this encounter [facility] 03-27-2023 History of Present illness Narrative [facility] DAILY TREATMENT NOTE Today's Date 03/27/2023 Patient Name: Cynthia Cisneros Date of : 1950 Current Visit #: 7 Authorized Visits: [id number] Case Name: muscle cramps, chronic LBP History: Pre-Treatment Pain Scale: 5 Symptoms: gradually improved Functional Diagnosis: 1. Chronic left-sided low back pain with left-sided sciatica [M54.42, G89.29] 2. Muscle cramps [R25.2] Clinical Information: Subjective: Pt comes in with moderate pain in LB down into L LE. She reports L-sided sciatic pain down to her heel, her toes are tingling. She describes it as zinger pain, sharp. She has been doing ankle pumps and it helps some. She reports that her sx's are worse when she's sitting. She has been doing her stretches at home which help calm her sx's down, hasn't been able to do those today. No problems after last session. She feels therapy is helping her overall. Noticing improvements with balance when walking, also she has been putting her pants on without leaning against something (x2). New Balance with orthotics tend to make her more off balance, not wearing them. Getting gel injections in her knees (B), first one is set for next Wed. Objective: Began with Nustep warm up for LB/core/L LE. Pt performed gentle strengthening ex's per log to improve functional ROM, strength and stability in LB/core/L LE. Increased reps on // bar ambulation strategies. Added cone taps in // bars. Performed all therapeutic ex's with focus on upright posture and form for maximal functional outcome. Ended with bed stretches to cool down. Treatments: Physical Therapy Exercise Log - 03/27/23 1419 OTHER Precautions/Contraindications Supervising PT Vic 2:21PM-3:13PM Notes L LE muscle cramps, chronic LBP, + L scaitica (nerve tension), balance deficits Vitals pt's main goal is to improve her ability with stair negotiation Therapeutic Exercise (21909) Intervention NuStep L4-5 10.5 min with UE A (878 steps) Parameters nerve glides (AP's) 2x10 (decrease in foot/toe tingling) Intervention functional quad strengthening (goal being to improve stair negotiation) Parameters Balance and stability CGA with gait belt Intervention deep squats over chair 10x2 (R knee discomfort, feels like it wants to give out a bit) Parameters D/L shuttle squats 56# 3x10, S/L 31# 2x10 bilat (modify ROM to tolerance) Intervention Piriformis stretches (B) modified 10x5 Parameters LTR with wider foot placement 15 x 2 with pause at end range-HEP Intervention // bars: high knee marching with pause x5 laps; lateral amb x5 laps; tandem walking x5 laps (no // bar A throughout) Parameters see neuro Neuro Re-Ed (01489) Parameters -- Intervention cone taps 10x2 (no UE A) Parameters step taps to 8 inch box with no UE A 2x10 SBA PT Treatment Times Therex Total Time 52 Direct Treatment Time 52 Goals: Physical Therapy Ortho Goals: CHANGING MAINTAINING POSITON: Patient will be able to transition in bed and transfer without increase in cramping symptoms in L LE 6 weeks. IMPAIRMENT: Improve pain from 7/10 to 3/10 at worst during ADLs in 6 weeks OTHER: Patient will be able to improve tandem stance on Bilateral from 15 seconds to 30 seconds in 6 OTHER: Patient will be able to properly demonstrate independence with HEP and adherence to hydration recommendations in 2 weeks. MOVEMENT: Pt will demonstrate improved functional bilateral quad strength to allow for ease of stair negotiation. 6 weeks. IE date: 02/25/2023 Progress report due: 03/25/23 Recert due: visit # 12 Patient Education: Quality of movement, Verbal HEP, and Pain Management with patient demonstrated understanding and verbalized understanding. Post-Treatment Pain Scale: better after stretching Assessment: Patient had an expected response to treatment. Pt able to progress with // bar ambulation strategies this date without much noted difficulty. 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 Pt was able to perform her neuro re-ed activity without UE use or use of gait belt. Skilled Intervention demonstrated by modifications of treatment per exercise log including increased load and assessment of patient's response and safety interventions per exercise log. Progress towards goals as expected. Plan for Next Visit: Treatment Visit with focus on improving functional mobility, strength, and stability in LB/core/B LE's. Madi-ROSA, pt to bring in New Balance with her orthotics to check gait at next visit. Whitney Washington PTA STATE LICENSE, [id number] documented in this encounter [facility] 03-23-2023 History of Present illness Narrative [facility] DAILY TREATMENT NOTE Today's Date 03/23/2023 Patient Name: Cynthia Cisneros Date of : 1950 Current Visit #: 6 Authorized Visits: 199 Case Name: muscle cramps, chronic LBP History: Pre-Treatment Pain Scale: L LE sx's. Symptoms: gradually improved Functional Diagnosis: No diagnosis found. Clinical Information: Subjective: Patient notes today her L PUSHPA has been bothering her from SIJ down to foot. Objective Patient completed exercises per log. Treatments: Physical Therapy Exercise Log - 03/23/23 1517 OTHER Precautions/Contraindications Supervising PT Vic 3:15-4:00 Notes L LE muscle cramps, chronic LBP, + L scaitica (nerve tension), balance deficits Vitals pt's main goal is to improve her ability with stair negotiation Therapeutic Exercise (37633) Intervention NuStep L4-5 8 min with UE A Parameters manual supine 90/90 active HS 2x8, then with nerve glides (AP's) 3x8 (decrease in foot/toe tingling) Intervention functional quad strengthening (goal being to improve stair negotiation) Parameters Balance and stability CGA with gait belt Intervention touch and go 23 inch raised plinth x10 Parameters DL shuttle squats 56# 2x10, SL 31# x 15 bilat (modify ROM to tolerance) Intervention Piriformis stretches (B) modified 10-15x3 Parameters LTR with wider foot placement 15 x 2 with pause at end range Intervention // bars: high knee marching with pause, lateral amb x4 laps each PRN assistance with rail for stabilization, tandem amb with interit UE A x 2 laps Parameters see neuro Neuro Re-Ed ([id number]) Parameters // bars: high knee marching with pause, lateral amb x4 laps each PRN assistance with rail for stabilization, tandem amb with interit UE A x 2 laps Parameters step taps to 8 inch box with one UE A then without when able 2x10 with CGA PT Treatment Times Therex Total Time 45 Direct Treatment Time 45 Total Treatment Time 45 Goals: Physical Therapy Ortho Goals: CHANGING MAINTAINING POSITON: Patient will be able to transition in bed and transfer without increase in cramping symptoms in L LE 6 weeks. IMPAIRMENT: Improve pain from 7/10 to 3/10 at worst during ADLs in 6 weeks OTHER: Patient will be able to improve tandem stance on Bilateral from 15 seconds to 30 seconds in 6 OTHER: Patient will be able to properly demonstrate independence with HEP and adherence to hydration recommendations in 2 weeks. MOVEMENT: Pt will demonstrate improved functional bilateral quad strength to allow for ease of stair negotiation. 6 weeks. IE date: 02/25/2023 Progress report due: 03/25/23 Recert due: visit # 12 Patient Education: Quality of movement and HEP Adherence with patient verbalized understanding. Post-Treatment Pain Scale: no change. Assessment: Patient had an expected response to treatment. Groin pain with LTR, improve with decreased range. Skilled Intervention demonstrated by modifications of treatment per exercise log including increased load and increased intensity and safety interventions per exercise log. Progress towards goals as expected. Plan for Next Visit: Treatment Visit with focus on progressing towards goals as tolerated per CAROL. CHRISTINE MICHAEL PTA STATE LICENSE, [id number] documented in this encounter [facility] 03-20-2023 History of Present illness Narrative Associated Order(s): LG Jt Injection/Arthrocentesis: L glenohumeral; LG Jt Injection/Arthrocentesis: R glenohumeral Post-Procedure Diagnose(s): Shoulder impingement syndrome, right; Shoulder impingement syndrome, left [facility] [address] [facility] [address] [facility] [place] [id number] Chief Complaint Patient presents with Right Shoulder - Pain Left Shoulder - Pain Cynthia Cisneros returns to the office today for bilateral shoulder pain. I have had the pleasure of seeing her for both shoulders. We have been treating these conservatively with injections and also a course of outpatient physical therapy. She completed therapy this past November but states that she did not feel as though she got a lot of improvement. She is currently in physical therapy for a different problem and is going to a different facility. She would like to try some more therapy on the shoulders at this different facility if possible. She denies any new injury to either shoulder. If at all possible she would like to have injections to both at today's visit. The patient's past medical history, surgical history, social history, family history, medications and allergies were reviewed with the patient today and are available in the chart for further review. Allergies Allergen Reactions Penicillin G Hives, Shortness Of Breath and Swelling Sulfa (Sulfonamide Antibiotics) Hives, Shortness Of Breath and Swelling Trazodone Hives and Shortness Of Breath Celecoxib Hives Difficulty breathing, swelling Doxycycline Nausea and vomiting Vomiting within 30 minutes of taking dose Levofloxacin GI Intolerance Nausea and vomiting. [place] Diarrhea Other reaction(s): Vomiting [place] Carbonate Other reaction(s): Vomiting Niacin Unknown Sulfites Cephalexin Rash Current Outpatient Medications: acetaminophen (TYLENOL) 500 MG tablet, Take 1 (one) tablet (500 mg total) by mouth every 6 (six) hours as needed for pain THREE TIMES DAILY ., Disp: , Rfl: albuterol (PROVENTIL) 2.5 mg/0.5 mL Nebu, Take 0.5 mL (2.5 mg total) by nebulization every 4 to 6 hours as needed (shortness of breath, wheezes) DOS ., Disp: , Rfl: atenoloL (TENORMIN) 50 MG tablet, Take 1 (one) tablet (50 mg total) by mouth 2 (two) times a day ., Disp: , Rfl: [place] Saline Gel, Apply topically 2 (two) times a day Apply a pea sized amount to both nostrils at bedtime and in a.m. You can use it more often.., Disp: 14.1 g, Rfl: 12 Bevespi Aerosphere 9-4.8 mcg HFAA, inhale 2 puffs by mouth and INTO THE LUNGS every morning and every evening, Disp: , Rfl: budesonide (PULMICORT) 0.5 mg/2 mL nebulizer solution, Take 2 mL (0.5 mg total) by nebulization 2 (two) times a day ., Disp: , Rfl: CALCITRATE 200 mg (950 mg) tablet, Take 200 mg by mouth 3 (three) times a day ., Disp: , Rfl: 0 denosumab (Prolia) 60 mg/mL Syrg, Inject 60 (sixty) mg under the skin once Q 6 months ., Disp: , Rfl: Fish OiL 1,200 (144-216) mg cap, Take 1 capsule by mouth 3 (three) times a day ., Disp: , Rfl: folic acid (FOLVITE) 1 MG tablet, Take 1.5 (one and a half) tablets (1.5 mg total) by mouth daily ., Disp: , Rfl: furosemide (LASIX) 20 MG tablet, Take 1 (one) tablet (20 mg total) by mouth daily ., Disp: , Rfl: guaiFENesin (MUCINEX) 600 mg 12 hr tablet, Take 2 (two) tablets (1,200 mg total) by mouth 2 (two) times a day ., Disp: , Rfl: ketoconazole (NIZORAL) 2 % cream, Apply topically daily to feet ., Disp: , Rfl: lansoprazole (PREVACID) 30 MG capsule, TAKE 1 CAPSULE BY MOUTH EVERY MORNING before BREAKFAST ON AN EMPTY STOMACH, Disp: , Rfl: levothyroxine (SYNTHROID, LEVOTHROID) 75 MCG tablet, Take 1 (one) tablet (75 mcg total) by mouth every morning DOS ., Disp: , Rfl: magnesium oxide (MAG-OX) 400 mg tablet, Take 2.5 (two and a half) tablets (1,000 mg total) by mouth nightly ., Disp: , Rfl: metroNIDAZOLE (METROGEL) 1 % gel, Apply once daily to entire face, Disp: , Rfl: mirtazapine (REMERON) 30 MG tablet, Take 1 (one) tablet (30 mg total) by mouth nightly Takes additional 7.5 ., Disp: 90 tablet, Rfl: 0 mirtazapine (REMERON) 7.5 MG tablet, Take 1 (one) tablet (7.5 mg total) by mouth nightly ., Disp: 90 tablet, Rfl: 0 mupirocin (BACTROBAN) 2 % ointment, instill into both nostrils THREE TIMES DAILY FOR 10 DAYS, Disp: , Rfl: Nucala 100 mg/mL AtIn, , Disp: , Rfl: omega-3 fatty acids-fish oil 360-1,200 mg cap, Daily ., Disp: 90 capsule, Rfl: 1 Therems-M 9 mg iron-400 mcg Tab, Take 1 (one) tablet by mouth daily ., Disp: , Rfl: VITAMIN D3 2,000 unit cap, Take 1 (one) capsule by mouth 2 (two) times a day ., Disp: , Rfl: 0 Past Medical History: Diagnosis Date Anemia 03/2016 Anxiety 09/2002 General anxiety disorder Arrhythmia Arthritis Asthma Bruises easily Cancer (HCC) 06/1991 Cervical cancer Clostridium difficile infection 1999 COPD (chronic obstructive pulmonary disease) (HCC) Diagnosed several years ago Coronary artery disease Depression Diabetes mellitus (HCC) Borderline GERD (gastroesophageal reflux disease) 05/20/2016 Heart murmur Hyperlipidemia Hypertension Hypothyroidism (acquired) 05/20/2016 Injury of back Osteoporosis 11/25/2022 Squamous cell skin cancer Valvular disease MVP Past Surgical History: Procedure Laterality Date ADENOIDECTOMY 1994 APPENDECTOMY ARTHROPLASTY HIP ROBOTIC EUGENE Left 10/21/2021 Procedure: Left Total Hip Replacement Robotic; Surgeon: Jovanna Valencia MD; Location: Main OR; Service: Ortho-Robotics CARPAL TUNNEL RELEASE Left CATARACT EXTRACTION W/ INTRAOCULAR LENS IMPLANT Bilateral COLON SURGERY WITH ILEOSTOMY CORE DECOMPRESSION OF LEFT FEMEROL HEAD EYE SURGERY Bilateral LASER TO EYES FOR GLAUCOMA HANDS, DUPYTRENS, TRIGGER FINGER, CARPAL TUNNEL Right HYSTERECTOMY 1990 ILEOSTOMY REVERSAL INDEX FINGER SURGERY Right JOINT REPLACEMENT MUSCLE BIOPSY ROTATOR CUFF REPAIR Left SINUS SURGERY January 2018 and nik bullosa resection - Dr. Watters SINUS SURGERY 12/30/2019 balloon sinuplasty - Dr. Key SKIN BIOPSY TONSILLECTOMY TRIGGER FINGER RELEASE Right 03/24/2018 Procedure: RELEASE A1 TOD LEFT MIDDLE,RING, AND SMALL FINGERS WITH CORTISONE INJECTION RIGHT MIDDLE FINGER A1 TOD; Surgeon: Yonas Nguyen MD; Location: [facility] Main OR; Service: Hand TUBAL LIGATION Social History Socioeconomic History Marital status: Single Tobacco Use Smoking status: Former Packs/day: 1.50 Years: 42.00 Additional pack years: 0.00 Total pack years: 63.00 Types: Cigarettes Start date: 1979 Quit date: 09/17/2021 Years since quittin.5 Passive exposure: Past Smokeless tobacco: Never Tobacco comments: Cigarettes Vaping Use Vaping Use: Never used Substance and Sexual Activity Alcohol use: No Drug use: No Sexual activity: Not Currently control/protection: Pill, Diaphragm, I.U.D., Surgical Comment: hysterectomy at age 39 Imaging: No new imaging at today's visit. Assessment/Plan: Injections to bilateral shoulders per patient request. I did this without complications and she tolerated this well. I am also going to start her in a course of outpatient physical therapy for both shoulders. If there is no improvement in 2 weeks she is to return to the office for follow-up. She does verbalize understanding and is in agreement the treatment plan. LG Jt Injection/Arthrocentesis: L glenohumeral Performed by: Charly Dias CNP Authorized by: Charly Dias CNP CPT [id number] - Large Joint Arthrocentesis: Consent given by: Patient Time out: Immediately prior to the procedure a time out was called Physician or proceduralist has discussed critical or nonroutine steps, procedure duration and anticipated blood loss: Yes Supporting Documentation: Indications: Pain and diagnostic evaluation Procedure Details: Location: Shoulder Site: L glenohumeral Prep: patient was prepped and draped in usual sterile fashion Needle size: 22 G Approach: Posterior Medications: 40 mg triamcinolone acetonide 40 mg/mL Anesthetic used: Lidocaine 1% Anesthetic amount (mL): 2 Patient tolerance: Patient tolerated the procedure well with no immediate complications LG Jt Injection/Arthrocentesis: R glenohumeral Performed by: Charly Dias CNP Authorized by: Charly Dias CNP CPT [id number] - Large Joint Arthrocentesis: Consent given by: Patient Time out: Immediately prior to the procedure a time out was called Physician or proceduralist has discussed critical or nonroutine steps, procedure duration and anticipated blood loss: Yes Supporting Documentation: Indications: Pain and diagnostic evaluation Procedure Details: Location: Shoulder Site: R glenohumeral Prep: patient was prepped and draped in usual sterile fashion Needle size: 22 G Approach: Posterior Medications: 40 mg triamcinolone acetonide 40 mg/mL Anesthetic amount (mL): 2 Patient tolerance: Patient tolerated the procedure well with no immediate complications documented in this encounter [facility] 03-17-2023 History of Present illness Narrative [facility] DAILY TREATMENT NOTE Today's Date 03/17/2023 Patient Name: Cynthia Cisneros Date of : 1950 Current Visit #: 5 Authorized Visits: 199 Case Name: muscle cramps, chronic LBP History: Pre-Treatment Pain Scale: 3/10 pain in Lb Symptoms: sore/stiff Functional Diagnosis: No diagnosis found. Clinical Information: Subjective: Pt notes intermit increase in LE radiating pain and sx and notes more difficulty with getting in/out of car this date. Pt notes increased posterior LE tension with stretching this date. Objective: Nustep to begin and cont'd with ex's as per flow sheet while progressing as tolerated. Added tandem amb, progressed resistance with shuttle squats, and reps/sets throughout. Treatments: Physical Therapy Exercise Log - 03/17/23 1432 OTHER Precautions/Contraindications Supervising PT Vic [id number] Notes L LE muscle cramps, chronic LBP, + L scaitica (nerve tension), balance deficits Vitals pt's main goal is to improve her ability with stair negotiation Therapeutic Exercise (57885) Intervention NuStep L4-5 8 min with UE A Parameters manual supine 90/90 active HS 2x8, then with nerve glides (AP's) 3x8 (decrease in foot/toe tingling) Intervention functional quad strengthening (goal being to improve stair negotiation) Parameters Balance and stability CGA with gait belt Intervention touch and go 23 inch raised plinth x10 Parameters DL shuttle squats 56# 2x10, SL 31# x 15 bilat (modify ROM to tolerance) Intervention Piriformis stretches (B) modified 10-15x3 Parameters LTR with wider foot placement 15 x 2 with pause at end range Intervention // bars: high knee marching with pause, lateral amb x4 laps each PRN assistance with rail for stabilization, tandem amb with interit UE A x 2 laps Parameters see neuro Neuro Re-Ed ([id number]) Parameters // bars: high knee marching with pause, lateral amb x4 laps each PRN assistance with rail for stabilization, tandem amb with interit UE A x 2 laps Parameters step taps to 8 inch box with one UE A then without when able 2x10 with CGA PT Treatment Times Therex Total Time 30 Neuro Re-Ed Total Time 10 Direct Treatment Time 40 Total Treatment Time 44 Goals: Physical Therapy Ortho Goals: CHANGING MAINTAINING POSITON: Patient will be able to transition in bed and transfer without increase in cramping symptoms in L LE 6 weeks. IMPAIRMENT: Improve pain from 7/10 to 3/10 at worst during ADLs in 6 weeks OTHER: Patient will be able to improve tandem stance on Bilateral from 15 seconds to 30 seconds in 6 OTHER: Patient will be able to properly demonstrate independence with HEP and adherence to hydration recommendations in 2 weeks. MOVEMENT: Pt will demonstrate improved functional bilateral quad strength to allow for ease of stair negotiation. 6 weeks. IE date: 02/25/2023 Progress report due: 03/25/23 Recert due: visit # 12 Patient Education: Quality of movement, HEP Adherence, Diagnosis and recovery specific education, Pain Management, and exercise mechanics, body mechanics, stability and balance wth ex's throughout and corrections with LOB, stepping strategy with patient demonstrated understanding and verbalized understanding. Post-Treatment Pain Scale: notes decreased pain but not quantified to end. Assessment: Patient had an expected response to treatment. Pt required VC's, demo, rest breaks, and education as above to complete with fair return demo and understanding. Pt with intermit c/o increased dizziness with turns with parallel bar ex's. Pt with few LOBs throughout, self correcting with stepping strategy, UE A, SBA, and righting reaction. Pt with few instances with c/o LE radiating pain which subsided shortly after presenting. Pt with intermit increase in muscle tension with stretching and ex's throughout. Skilled Intervention demonstrated by modifications of treatment per exercise log including plane progressions, increased cueing, increased intensity, increased rest breaks, increased volume, and assessment of patient's response and safety interventions per exercise log. Progress towards goals as expected. Plan for Next Visit: Monitor response to today's treatment session and continue to progress pt toward set goals in POC as tolerated. Cont to progress core and functional strength and stability. Madi Castro PTA STATE LICENSE, [id number] documented in this encounter [facility] 03-13-2023 History of Present illness Narrative [facility] DAILY TREATMENT NOTE Today's Date 03/13/2023 Patient Name: Cynthia Cisneros Date of : 1950 Current Visit #: 4 Authorized Visits: 199 Case Name: muscle cramps, chronic LBP History: Pre-Treatment Pain Scale: 4/10 pain in LB Symptoms: intermit mild burning in (L) post LE Functional Diagnosis: 1. Chronic left-sided low back pain with left-sided sciatica [M54.42, G89.29] 2. Muscle cramps [R25.2] Clinical Information: Subjective: Pt notes good relief with pain and sx after last session noting able to get into car with less pain and reported relief with (L) LE radiating pain and sx. Pt notes compliance with HEP but noted intermit radiating pain and sx with bed ex's/stretch at home (educated on modifying postioning to improve). Objective: Nustep to begin and cont'd with ex's as per flow sheet while progressing as tolerated. Added step taps back. Treatments: Physical Therapy Exercise Log - 03/13/23 1520 OTHER Precautions/Contraindications Supervising PT Vic [phone] Notes L LE muscle cramps, chronic LBP, + L scaitica (nerve tension), balance deficits Vitals pt's main goal is to improve her ability with stair negotiation Therapeutic Exercise (92125) Intervention NuStep L4 7 min with UE A Parameters manual supine 90/90 active HS 2x8, then with nerve glides (AP's) 3x8 (decrease in foot/toe tingling) Intervention functional quad strengthening (goal being to improve stair negotiation) Parameters Balance and stability CGA with gait belt Intervention touch and go 23 inch raised plinth x10 Parameters DL shuttle squats 50# 2x10, SL 31# x 15 bilat (modify ROM to tolerance) Intervention Piriformis stretches (B) modified 10-15x3 Parameters LTR with wider foot placement 10x 2 with pause at end range Intervention // bars: high knee marching with pause, lateral amb x4 laps each PRN assistance with rail for stabilization Parameters see neuro Neuro Re-Ed ([id number]) Intervention -- Parameters -- Intervention -- Parameters step taps to 8 inch box with one UE A then without when able 2x10 with CGA PT Treatment Times Therex Total Time 28 Neuro Re-Ed Total Time 12 Direct Treatment Time 40 Total Treatment Time 40 Goals: Physical Therapy Ortho Goals: CHANGING MAINTAINING POSITON: Patient will be able to transition in bed and transfer without increase in cramping symptoms in L LE 6 weeks. IMPAIRMENT: Improve pain from 7/10 to 3/10 at worst during ADLs in 6 weeks OTHER: Patient will be able to improve tandem stance on Bilateral from 15 seconds to 30 seconds in 6 OTHER: Patient will be able to properly demonstrate independence with HEP and adherence to hydration recommendations in 2 weeks. MOVEMENT: Pt will demonstrate improved functional bilateral quad strength to allow for ease of stair negotiation. 6 weeks. IE date: 02/25/2023 Progress report due: 03/25/23 Recert due: visit # 12 Patient Education: Quality of movement, Verbal HEP, HEP Modification, HEP Adherence, Diagnosis and recovery specific education, Pain Management, and exercise mechanics, body mechanics, with patient demonstrated understanding and verbalized understanding. Post-Treatment Pain Scale: 0, c/o mild tingling in LE's (distal) with (L) > (R) to end. Assessment: Patient had an expected response to treatment. Pt required Vc's, demo, rest breaks, and education to complete with fair return demo and understanding. Pt with intermit c/o increase in (L) LE radiating pain and sx throughout and presented with few LOB but able to self correct with UE A, and or stepping strategy but requiring intermit CGA and SBA to complete. Pt easily winded this date and c/o SOB to end, requiring seated/standing rest breaks throughout to complete. Pt with fair tolerance with ex's this date. Skilled Intervention demonstrated by modifications of treatment per exercise log including increased rate, increased cueing, increased intensity, increased rest breaks, increased volume, and assessment of patient's response and safety interventions per exercise log. Progress towards goals as expected. Plan for Next Visit: Monitor response to today's treatment session and continue to progress pt toward set goals in POC as tolerated. Madi Castro PTA STATE LICENSE, [id number] documented in this encounter [facility] 02-27-2023 History of Present illness Narrative [facility] DAILY TREATMENT NOTE Today's Date 02/28/2023 Patient Name: Cynthia Cisneros Date of : 1950 Current Visit #: 2 Authorized Visits: [id number] Case Name: muscle cramps, chronic LBP History: Pre-Treatment Pain Scale: 4/10 pain in (R) superior foot, 5/10 pain in LB (R) > (L) Symptoms: burning on top of (R) foot, min soreness and stiffness Functional Diagnosis: 1. Chronic left-sided low back pain with left-sided sciatica [M54.42, G89.29] 2. Muscle cramps [R25.2] Clinical Information: Subjective: Pt notes, did well, after last session. Objective: Introduced Nustep to begin to improve lumbar and LE mobility and LE strength. Cont'd with ex's and balance/stability ex's as per flow sheet to progress pt toward set goals in POC. Treatments: Physical Therapy Exercise Log - 02/27/23 1520 OTHER Precautions/Contraindications Supervising PT Vic [id number] Notes L LE muscle cramps, chronic LBP, + L scaitica (nerve tension), balance deficits Vitals pt's main goal is to improve her ability with stair negotiation Therapeutic Exercise (07004) Intervention NuStep L4 6 min with UE A Parameters manual supine 90/90 active HS x 10, then with nerve glides (AP's) x 10-12 (decrease in foot/toe tingling) Intervention functional quad strengthening (goal being to improve stair negotiation) Parameters Balance and stability CGA with gait belt Intervention touch and go 23 inch raised plinth x10 Parameters DL shuttle squats 50# 2x8, SL 31# x 8-10 bilat (modify ROM to tolerance) Neuro Re-Ed (74123) Intervention lat amb 30' x 2 laps iwht CGA Parameters modified tandem amb at rail with intermit UE A x 2 laps then modified tandem wtih retro return 2 laps wiht itnermit UE A, all with CGA Intervention standing marches on airex with intermit UE A x 20 with CGA Parameters step taps to 8 inch box with one UE A then without when able 2x10 with CGA PT Treatment Times Therex Total Time 23 Neuro Re-Ed Total Time 20 Direct Treatment Time 43 Total Treatment Time 43 Goals: Physical Therapy Ortho Goals: CHANGING MAINTAINING POSITON: Patient will be able to transition in bed and transfer without increase in cramping symptoms in L LE 6 weeks. IMPAIRMENT: Improve pain from 7/10 to 3/10 at worst during ADLs in 6 weeks OTHER: Patient will be able to improve tandem stance on Bilateral from 15 seconds to 30 seconds in 6 OTHER: Patient will be able to properly demonstrate independence with HEP and adherence to hydration recommendations in 2 weeks. MOVEMENT: Pt will demonstrate improved functional bilateral quad strength to allow for ease of stair negotiation. 6 weeks. IE date: 02/25/2023 Progress report due: 03/25/23 Recert due: visit # 12 Patient Education: Quality of movement, Diagnosis and recovery specific education, Home Safety, Pain Management, and body mechanics, rehab process, progressions vs regressions, exercise mechancis, anatomy, with patient demonstrated understanding and verbalized understanding. Post-Treatment Pain Scale: 0 and denies LE radiating pain, reports, been worked. Assessment: Patient had an expected response to treatment. Pt required VC's, demo, rest breaks, and education as above to complete with fair return demo and understanding. Pt performed ex's with intermit c/o pain/discomfort/dizziness/fatigue, and overall reported decrease to end. Pt with good centralization of radiating LE pain with 90/90 active HS and more so with 90/90 AP/nerve glides. Pt presented with increased dizziness with quick tight turning requiring short rest to subside. Pt performed ex's with 2 LOB but was able to self correct. Pt required SBA, CGA, UE A to complete. Skilled Intervention demonstrated by modifications of treatment per exercise log including increased rate, plane progressions, increased cueing, increased intensity, increased rest breaks, increased volume, and assessment of patient's response and safety interventions per exercise log. Progress towards goals second visit . Plan for Next Visit: Monitor response to today's treatment session and continue to progress pt toward set goals in POC as tolerated. Issue HEP NV if tolerated. Madi Castro PTA STATE LICENSE, [id number] documented in this encounter [facility] 02-20-2023 Note Addended by: SJ MOTLEY on: 02/20/2023 03:11 PM Modules accepted: Orders [facility] 02-20-2023 Miscellaneous Notes Addended by: SJ MOTLEY on: 02/20/2023 03:11 PM Modules accepted: Orders Pt is requesting a refill for a medication that is NOT on current medication list. She is requesting: SUMAtriptan (IMITREX) 50 MG tablet (Discontinued) 10 tablet 0 01/06/2023 02/05/2023 Sig - Route: Take 1 (one) tablet (50 mg total) by mouth every 2 (two) hours as needed for migraine Max of 200 mg in 24hrs, do not treat more than 3 times a week . - Oral Sent to pharmacy as: SUMAtriptan 50 mg tablet (IMITREX) E-Prescribing Status: Receipt confirmed by pharmacy (01/06/2023 3:41 PM EDT) Pt would like this sent to [facility] in [place]. documented in this encounter [facility] 02-20-2023 Telephone encounter Note Pt is requesting a refill for a medication that is NOT on current medication list. She is requesting: SUMAtriptan (IMITREX) 50 MG tablet (Discontinued) 10 tablet 0 01/06/2023 02/05/2023 Sig - Route: Take 1 (one) tablet (50 mg total) by mouth every 2 (two) hours as needed for migraine Max of 200 mg in 24hrs, do not treat more than 3 times a week . - Oral Sent to pharmacy as: SUMAtriptan 50 mg tablet (IMITREX) E-Prescribing Status: Receipt confirmed by pharmacy (01/06/2023 3:41 PM EDT) Pt would like this sent to [facility] in [place]. [facility] 02-12-2023 History of Present illness Narrative Images from the original note were not included. HPI patient follows today for 3 month interval clinical reevaluation on treatment results of her left subacute maxillary sinusitis. There was documentation of not accurate information about her cultures, which were reported to the patient on the last visit as fusiform bacteria, which turned to be misplaced by mistake culture from the throat collected earlier back in July 2022, instead of heavy growth of Staphylococcus our house, which was reflected on the report on the cultures collected from the left maxillary sinus on 10/01/2022. However, the selection of the antibiotics picked for the treatment of the infection was very well correlated with the reported sensitivity to all offered systemic (clindamycin ) and local (mupirocin )antibiotics. Although, patient had a lengthy recovery with necessity for repeat antibacterial management, most recently with Cefdinir, prescribed by PCP, she currently reports no green drainage, nasal congestion, sinus pressure or pain. Briefly, patient had sinus surgery [address] Watters with improvement of her symptoms, however continued to experience this greenish nasal drainage on the posterior pharyngeal wall creating drying scabs, discomfort and pressure in the left ear, excessive postnasal drip with necessity for throat clearing and cough despite of multiple courses of antibiotics under supervision and following the recommendations of different ENT specialist in the area. She states that do not want to give up and requesting my evaluation for potential management. At some point patient had cultures which were reported as rare Staphylococcus. She has multiple antibiotics allergies but had noticed that collateral treatment of other like hip infection with vancomycin was helpful on her sinonasal discharge. Patient denies any current dental problems in the maxilla but had some teeth extracted with some oral reconstructive surgery last year. The following portions of the patient's history were reviewed and updated as appropriate: allergies, current medications, past family history, past medical history, past social history, past surgical history and problem list. Objective: BP (!) 164/90 Pulse 62 Ht 5' 3 Wt 73.9 kg (162 lb 14.4 oz) SpO2 93% BMI 28.86 kg/m Procedure: Nasal endoscopy, CPT code 49622 Preop diagnosis: History of sinus surgery, subacute/chronic maxillary sinusitis. Postop diagnosis: No evidence of sinus infection, satisfactory condition of sinonasal cavities after sustained Fess. Procedure detail: The patient's bilateral nares were anesthetized w 4% topical lidocaine w afrin spray. The 0 degree rigid endoscope was advanced into the bilateral nares to the nasopharynx and then retracted under visualization. The patient tolerated this well and there were no complications. Findings are listed below. Findings: The nasal mucosa was pink and moist. Septum was intact and midline. The turbinates were of normal morphology. The nasopharynx was without mass or adenoid hypertrophy. Both maxillary antrostomy openings wide and patent with no pathologic discharge, granulations or polyps in the depth of the sinuses. Satisfactory appearance of mucosal lining in the common sinonasal ethmoidal cavities, as the result of sustained surgery. Assessment/Plan: Nasal endoscopy today revealed no free pus in the left maxillary sinus cavity or both common sinonasal cavities. I had spent some time and clarified to patient the misunderstandings, reflected in HPI on her cultures report and previously offered treatment with systemic and local antibiotics. I had tried to answer patient's questions to the best of my knowledge and patient's satisfaction, however was not able to find a reasonable answer for history of green discharge only in the left maxillary sinus, as she had sustained bilateral sinus surgery by Dr. Watters in 2018, and suggested perhaps reevaluation by her surgeon in the future for clarification on this problem. Patient stated that the most effective antibiotic eventually turned to be Cefdinir, recently ordered by PCP and I had suggested to continue current baseline prophylactic management with normal saline irrigations/insufflations on daily basis. I had offered reevaluation as needed in the future. Portions of this chart were created using [employer] voice recognition software. Occasional wrong-word or sound-like substitutions may have occurred due to inherent limitations of the voice recognition software. Please read the chart carefully and recognize, using context, where the substitutions have occurred. 1. Chronic maxillary sinusitis 2. History of endoscopic sinus surgery No orders of the defined types were placed in this encounter. documented in this encounter [facility] 02-04-2023 History of Present illness Narrative Images from the original note were not included. [facility] [address] [place] [address] Name: Cynthia Cisneros : 1950 Date: 02/04/23 Hearing Aid Contact Note: Ms. Cisneros returned today for hearing aid follow up. She reports satisfaction with her hearing aids and that she does not need any adjustments. She reports her right hearing aid has poor retention at times. She also inquired if she can talk to a full service supervisor in ENT about an incident that occurred a few months ago when she saw ENT. Visual inspection and listening check of the hearing aid(s) revealed the right hearing aid had poor retention in her ear. Cleaned, hearing aids, functioning well. Added retention strip to right hearing aid which improved fit and comfort for Ms. Cisneros, and she stated she could hear much better too. Ms. Cisneros expressed satisfaction with the change. Evaluated Ms. Cisneros' hearing aid goals using NAL-COSI (see below). She rated 4/5 goals were better almost always (she has not experienced the other goal to assess it yet). Both objective and subjective measures indicate Ms. Cisneros is receiving adequate gain and benefit from her hearing aids. Lead Ms. Cisneros to full service supervisor Kerry Pascual's office with Kerry's consent for them to discuss her previous issue per her request. Ms. Cisneros to return as needed for hearing aid care or as scheduled for routine hearing and/or hearing aid needs. Ms. Cisneros expressed understanding of and agreement with the above. Electronically Signed by: Christine Sorensen, CCC-A 02/04/23 2:09 PM documented in this encounter [facility] 01-21-2023 History of Present illness Narrative Images from the original note were not included. [facility] [address] [facility] [address] [place] [address] Name: Cynthia Cisneros Age: 72 y.o. : 1950 Today's date: 01/21/23 Outpatient Pulmonary Consult Note CC: Chief Complaint Patient presents with Consult copd Cynthia Cisneros is a 72 y.o. female who presents to Pulmonary clinic for evaluation of COPD, bronchiectasis, eosinophilic asthma, and recurrent sinusitis. She was referred by PCP, Dr. Motley. Had been following up since 2018 at [facility], but transferred care to [facility]. HPI: Cynthia Cisneros is a former smoker with 63 pack years. She quit in 2021. She has a past medical history of COPD, eosinophilic asthma, bronchiectasis, chronic sinusitis status post sinus surgery x 2, coronary artery disease, diabetes, hyperlipidemia, GERD, and osteoarthritis. She is currently taking Bevespi, Pulmicort nebulizer, Flonase, Mucinex, and Nucala. She also uses albuterol nebulizer 3-4x per day. She had previously tried Advair and Trelegy, but contracted severe thrush. She has an acapella, which she said is helpful. She also has a Chest Vest, however she has not used it for a few months. She previously followed with Dr. Tomas Matthews with pulmonology in [place]. Previous CT reports have been scanned in, and report from 03/2021 showed moderate to severe emphysema, a right lower lobe 5 mm nodule, and a left lower lobe nodule measuring 1.2 cm with adjacent parenchymal extensions and atelectasis. Follow up CT was done in 05/2021 and was stable. She had another CT chest report from 12/10/2021 which stated there was stable linear basilar scarring, a 6 mm stable lingular nodule, and mediastinal lymphadenopathy. The report does not mention the previously seen left lower lobe nodule, and there are no additional reports scanned into [facility] with resolution of the nodule. There is not mention of bronchiectasis on these imaging reports, however she states that she has been diagnosed with this. She has the chest vest at home, which typically requires a diagnosis of cystic fibrosis or bronchiectasis for approval. I will request a disk of previous imaging from [facility] to review personally. Today, she endorses shortness of breath with exertion, intermittent cough, intermittent wheezing, post-nasal drip, congestion, dizziness, and recent left ear pain. She had a recent ED visit on 12/31 due to sinusitis and left ear effusion. She was prescribed 10 days of clindamycin, which helped initially. She has noticed her symptoms returning since finishing the Abx on 01/10. She has a significant ENT history including recurrent sinus infections, sinus surgery, and fungal sinusitis. She follows with Dr. Echols from ENT, and is scheduled for follow up on 02/16/23. She denies fever, chills, and light-headedness. She had PFT's on 01/07/23 that showed mild to moderate obstruction in large airways and significant obstruction in midflows. Her FEV1 showed significant response to bronchodilators, and there was profound improvement in midflows. Diffusion capacity was normal when corrected for alveolar volume. She was able to perform her 6 minute walk test, remained >95% of room air, and did not require supplemental oxygen to return to baseline. She does have a history of frequent URIs in youth, particularly bronchitis. She does not have a history of childhood asthma or allergies. She lives alone and has no pets. 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 She denies previous known exposure to asbestos, silica, black mold, chickens or exotic birds. She does have possible exposure to chemical fumes (ammonia, raw latex). She has history of passive smoke exposure in youth. She has recently been ill with URI symptoms, markedly sinus congestion, rhinorrhea, dizziness, and left ear effusion. She denies recent fevers. Review of Systems Constitutional: Negative for chills and fever. HENT: Positive for congestion, ear pain (effusion present in left ear), postnasal drip and voice change (hoarseness). Eyes: Negative. Respiratory: Positive for cough (intermittent), chest tightness (intermittent), shortness of breath and wheezing (intermittent). Cardiovascular: Positive for palpitations (occasionally). Negative for chest pain and leg swelling. Gastrointestinal: Positive for constipation. Negative for abdominal pain and diarrhea. Genitourinary: Negative. Musculoskeletal: Positive for arthralgias. Skin: Positive for rash (intermittent, on upper extremities and anterior bra line - occurs after eating). Allergic/Immunologic: Negative for environmental allergies and food allergies. Neurological: Positive for dizziness (recent, related to infection). Negative for light-headedness. Hematological: Negative. All other systems reviewed and are negative. Past Medical History: Diagnosis Date Anemia 03/2016 Anxiety 09/2002 General anxiety disorder Arrhythmia Arthritis Asthma Bruises easily Cancer (HCC) 06/1991 Cervical cancer Clostridium difficile infection 1999 COPD (chronic obstructive pulmonary disease) (HCC) Diagnosed several years ago Coronary artery disease Depression Diabetes mellitus (HCC) Borderline GERD (gastroesophageal reflux disease) 05/20/2016 Heart murmur Hyperlipidemia Hypertension Hypothyroidism (acquired) 05/20/2016 Injury of back Osteoporosis 11/25/2022 Squamous cell skin cancer Valvular disease MVP Past Surgical History: Procedure Laterality Date ADENOIDECTOMY 1994 APPENDECTOMY ARTHROPLASTY HIP ROBOTIC EUGENE Left 10/21/2021 Procedure: Left Total Hip Replacement Robotic; Surgeon: Jovanna Valencia MD; Location: Main OR; Service: Ortho-Robotics CARPAL TUNNEL RELEASE Left CATARACT EXTRACTION W/ INTRAOCULAR LENS IMPLANT Bilateral COLON SURGERY WITH ILEOSTOMY CORE DECOMPRESSION OF LEFT FEMEROL HEAD EYE SURGERY Bilateral LASER TO EYES FOR GLAUCOMA HANDS, DUPYTRENS, TRIGGER FINGER, CARPAL TUNNEL Right HYSTERECTOMY 1990 ILEOSTOMY REVERSAL INDEX FINGER SURGERY Right JOINT REPLACEMENT MUSCLE BIOPSY ROTATOR CUFF REPAIR Left SINUS SURGERY January 2018 and nik bullosa resection - Dr. Watters SINUS SURGERY 12/30/2019 balloon sinuplasty - Dr. Key SKIN BIOPSY TONSILLECTOMY TRIGGER FINGER RELEASE Right 03/24/2018 Procedure: RELEASE A1 TOD LEFT MIDDLE,RING, AND SMALL FINGERS WITH CORTISONE INJECTION RIGHT MIDDLE FINGER A1 TOD; Surgeon: Yonas Nguyen MD; Location: [facility] Main OR; Service: Hand TUBAL LIGATION Family History Problem Relation Age of Onset Hypertension Mother Arthritis Mother Cancer Mother Heart disease Mother Hypertension Father Asthma Father COPD Father Diabetes Father Hearing loss Father Heart disease Father Hyperlipidemia Father Heart disease Sister Hypertension Sister Cancer Brother Asthma Brother Diabetes Brother Heart disease Maternal Grandfather Anesthesia problems Neg Hx Social History Socioeconomic History Marital status: Single Tobacco Use Smoking status: Former Packs/day: 1.50 Years: 42.00 Pack years: 63.00 Types: Cigarettes Start date: 1979 Quit date: 09/17/2021 Years since quittin.3 Smokeless tobacco: Never Tobacco comments: Cigarettes Vaping Use Vaping Use: Never used Substance and Sexual Activity Alcohol use: No Drug use: No Sexual activity: Not Currently control/protection: Pill, Diaphragm, I.U.D., Surgical Comment: hysterectomy at age 39 Counseling given: Not Answered Tobacco comments: Cigarettes Occupation: Retired in 1995, 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 atenoloL (TENORMIN) 50 MG tablet Take 1 (one) tablet (50 mg total) by mouth 2 (two) times a day . [place] Saline Gel Apply topically 2 (two) times a day Apply a pea sized amount to both nostrils at bedtime and in a.m. You can use it more often.. Bevespi Aerosphere 9-4.8 mcg HFAA inhale 2 puffs by mouth and INTO THE LUNGS every morning and every evening budesonide (PULMICORT) 0.5 mg/2 mL nebulizer solution CALCITRATE 200 mg (950 mg) tablet Take 200 mg by mouth 3 (three) times a day . denosumab (Prolia) 60 mg/mL Syrg Inject 60 (sixty) mg under the skin once Q 6 months . Fish OiL 1,200 (144-216) mg cap Take 1 capsule by mouth 3 (three) times a day . fluticasone (FLONASE) 50 mcg/actuation nasal spray Instill 1 (one) spray into each nostril every morning DOS . folic acid (FOLVITE) 1 MG tablet Take 1.5 (one and a half) tablets (1.5 mg total) by mouth daily . furosemide (LASIX) 20 MG tablet Take 1 (one) tablet (20 mg total) by mouth daily . guaiFENesin (MUCINEX) 600 mg 12 hr tablet Take 2 (two) tablets (1,200 mg total) by mouth 2 (two) times a day . jaljkzuauw-rlbtuwznmkeo-tmkthp 1-1-4 % Gel lansoprazole (PREVACID) 30 MG capsule TAKE 1 CAPSULE BY MOUTH EVERY MORNING before BREAKFAST ON AN EMPTY STOMACH levothyroxine (SYNTHROID, LEVOTHROID) 75 MCG tablet Take 1 (one) tablet (75 mcg total) by mouth every morning DOS . magnesium oxide (MAG-OX) 400 mg tablet Take 2.5 (two and a half) tablets (1,000 mg total) by mouth nightly . metaxalone (SKELAXIN) 800 MG tablet Take 1 (one) tablet (800 mg total) by mouth 2 (two) times a day as needed for muscle spasms . mirtazapine (REMERON) 30 MG tablet Take 1 (one) tablet (30 mg total) by mouth nightly Takes additional 7.5 . mirtazapine (REMERON) 7.5 MG tablet Take 1 (one) tablet (7.5 mg total) by mouth nightly . mupirocin (BACTROBAN) 2 % ointment instill into both nostrils THREE TIMES DAILY FOR 10 DAYS Nucala 100 mg/mL AtIn omega-3 fatty acids-fish oil 360-1,200 mg cap Take by mouth 3 (three) times a day . pilocarpine (SALAGEN) 5 MG tablet Take 1 (one) tablet (5 mg total) by mouth 3 (three) times a day . SUMAtriptan (IMITREX) 50 MG tablet Take 1 (one) tablet (50 mg total) by mouth every 2 (two) hours as needed for migraine Max of 200 mg in 24hrs, do not treat more than 3 times a week . Therems-M 9 mg iron-400 mcg Tab Take 1 (one) tablet by mouth daily . VITAMIN D3 2,000 unit cap Take 1 (one) capsule by mouth 2 (two) times a day . [DISCONTINUED] budesonide (PULMICORT) 0.25 mg/2 mL nebulizer solution Take 2 mL (0.25 mg total) by nebulization 2 (two) times a day . clindamycin (CLEOCIN) 300 MG capsule Take 1 (one) capsule (300 mg total) by mouth 3 (three) times a day . (Patient not taking: Reported on 01/21/2023 .) Allergies Allergen Reactions Penicillin G Hives, Shortness Of Breath and Swelling Sulfa (Sulfonamide Antibiotics) Hives, Shortness Of Breath and Swelling Trazodone Hives and Shortness Of Breath Celecoxib Hives Difficulty breathing, swelling Doxycycline Nausea and vomiting Vomiting within 30 minutes of taking dose Levofloxacin GI Intolerance Nausea and vomiting. [place] Diarrhea Other reaction(s): Vomiting [place] Carbonate Other reaction(s): Vomiting Niacin Unknown Sulfites Cephalexin Rash BP (!) 164/98 (BP Location: Right arm, Patient Position: Sitting, BP Cuff Size: Adult) Pulse 75 Temp 98.5 F (36.9 C) (Temporal) Ht 5' 3 Wt 73.7 kg (162 lb 6.4 oz) SpO2 96% BMI 28.77 kg/m Physical Exam: Vitals reviewed Gen: Alert and oriented x 3, In no apparent distress HEENT: Head: Normocephalic, no lesions, without obvious abnormality. Ears: left ear effusion present on otoscopic exam, right ear WDL Pharynx: Dental Hygiene adequate. Normal buccal mucosa. Normal pharynx. Neck: nontender, full range of motion, no mass, no focal lymphadenopathy Cardio: regular rate and rhythm, no murmur, brisk capillary refill Resp: no tachypnea or accessory muscle use, some course crackles at base of lungs, bilaterally Abd: soft, nontender, nondistended, no hepatosplenomegaly, no mass, normal bowel sounds MSK: Moves all four extremities spontaneously. Neuro: Grossly normal without focal findings Skin: no rashes, no jaundice PFT Results PFT Pre-bronchodilator 01/07/23 1305 FVC 2.56 (% predicted) 94 FEV1 1.32 (% predicted) 65 FEV1/FVC 52 VC 2.59 (% predicted) 95 PFT Post-bronchodilator 01/07/23 1305 FVC 2.59 (% predicted) 95 (% change) 1 FEV1 1.47 (% predicted) 72 (% change) 11 FEV1/FVC 57 PFT Lung Volumes 01/07/23 1305 TLC 4.61 (% predicted) 101 RV 2.02 (% predicted) 107 PFT Diffusion 01/07/23 1305 DLCO 11.9 (% predicted) 62 DLCO/VA 3.49 (% predicted) 103 Interpretation: I have personally reviewed the PFT test results and I agree with the interpretation by Dr. Valenzuela. ATS Guidelines met. Good patient effort. Spirometry and lung volumes reveal mild to moderate obstruction. There was significant improvement in FEV1 with administration of a bronchodilator. Diffusing capacity uncorrected for hemoglobin was mildly reduced. Flight Communications Officer comments noted. Patient ambulated on flat ground for 6 minutes. Total distance walked was 366m. Lowest oxygen saturation was 95% on room air. Did not require supplemental oxygen to return to normal. Micki score for dyspnea post-test was 0.5. Imaging: I have personally reviewed reports from previous CT chest studies. I have requested these images. Assessment and Plan: Cynthia was seen today for consult. Diagnoses and all orders for this visit: Recurrent acute serous otitis media of left ear - cefdinir (OMNICEF) 300 MG capsule; Take 1 (one) capsule (300 mg total) by mouth 2 (two) times a day for 7 days . Chronic obstructive pulmonary disease, unspecified COPD type (HCC) - Ambulatory referral to Pulmonology Eosinophilic asthma - Ambulatory referral to Pulmonology Bronchiectasis without complication (HCC) Continue Bevespi, Pulmicort, Flonase, and Mucinex, as well as albuterol as needed for shortness of breath. Continue Nucala Autoinjector. I added cefdinir due to AOM with effusion.. I encouraged her to continues using her Acapella, and to use her Chest Vest when chest congestion increases. I have requested CT images from [facility] to evaluate her bronchiectasis diagnosis. She is scheduled for LDCT on 02/12/23. RTC in 1 month Associated attestation - Otf Chan CNP - 01/22/2023 12:57 PM EDT I have reviewed the history, physical, diagnosis and care plan with the GRAPHIC ART DESIGNER student, Rusty Estrada. I confirm the assessment and treatment plan: Diagnoses and all orders for this visit: Recurrent acute serous otitis media of left ear - cefdinir (OMNICEF) 300 MG capsule; Take 1 (one) capsule (300 mg total) by mouth 2 (two) times a day for 7 days . Chronic obstructive pulmonary disease, unspecified COPD type (HCC) - Ambulatory referral to Pulmonology Eosinophilic asthma - Ambulatory referral to Pulmonology Bronchiectasis without complication (HCC) documented in this encounter [facility] 01-16-2023 Telephone encounter Note Last OV 11/25/22. Next OV 02/05/23. [facility] 01-16-2023 Miscellaneous Notes Last OV 11/25/22. Next OV 02/05/23. ----- Message from Lucy Malloy sent at 01/16/2023 9:58 AM EDT ----- Regarding: rx refill MEDICATION REFILL REQUEST: PCP: Sj Motley MD Patient called 01/16/23 and is requesting a medication refill for mirtazapine (REMERON) 7.5 MG tablet metaxalone (SKELAXIN) 800 MG tablet. This was confirmed from the current medication list found in the patients chart. Supply Requested: # of days: 90 days Method of receiving: Send to pharmacy Last set of flowsheet rows for OARRS report: OARRS/NARxCHECK Report Received and Assessed: No data found Date controlled substance agreement signed: No data found Date of last drug screen: No data found Functional Assessment: No data found Will this refill be sent to the preferred pharmacy listed below? No, only for this refill. Please send to - [facility] [address] [place], [place] [id number] Preferred pharmacies: Pt Call Back Number Work Phone Not on file. Mobile Not on file. Patient call back message sent to the primary care clinical [place]. Lucy Malloy documented in this encounter [facility] 01-16-2023 Telephone encounter Note ----- Message from Lucy Malloy sent at 01/16/2023 9:58 AM EDT ----- Regarding: rx refill MEDICATION REFILL REQUEST: PCP: Sj Motley MD Patient called 01/16/23 and is requesting a medication refill for mirtazapine (REMERON) 7.5 MG tablet metaxalone (SKELAXIN) 800 MG tablet. This was confirmed from the current medication list found in the patients chart. Supply Requested: # of days: 90 days Method of receiving: Send to pharmacy Last set of flowsheet rows for OARRS report: OARRS/NARxCHECK Report Received and Assessed: No data found Date controlled substance agreement signed: No data found Date of last drug screen: No data found Functional Assessment: No data found Will this refill be sent to the preferred pharmacy listed below? No, only for this refill. Please send to - [facility] [address] [place] [address] Preferred pharmacies: Pt Call Back Number Work Phone Not on file. Mobile Not on file. Patient call back message sent to the primary [facility] [place]. Lucy Malloy [facility] 12-10-2022 History of Present illness Narrative [facility] DAILY TREATMENT NOTE Today's Date 12/10/2022 Patient Name: Cynthia Cisneros Date of : 1950 Current Visit #: 15 Authorized Visits: 199 Case Name: Bilateral Shoulder and Bilateral Knee Pain History: Pre-Treatment Pain Scale: 1 Symptoms: stabilized Functional Diagnosis: 1. Primary osteoarthritis of both knees 2. Impingement syndrome of both shoulders Clinical Information: Subjective: Pt reports low pain today and min soreness after LV, she is doing well with HEP Objective Held shoulder ex's today d/t focusing on LE's Treatments: Physical Therapy Exercise Log - 12/10/22 1349 OTHER Precautions/Contraindications Supervising PT: Lalo Notes visit 14 [id number] Therapeutic Exercise (50728) Intervention sci fit 5' lvl 4 Parameters standing calf, lunge and HS stretches 3x20 [address] 4 [address] RTB x20 Parameters lateral step ups 6 x20 Intervention lunge into BOSU x10 alt , BOSU step-ups x10 Parameters SLS with UE support 4x10'' Intervention TKE w/ casillas tube 10x5 Parameters Shuttle squats - x 20 37# Intervention -- Parameters -- Intervention standing rows L3 x20 ext L3 [id number] push up [id number] ext behind back and up the back 20 each Parameters IR/ER L3 x20 bilat. Intervention Wall walk up and lateral, W press x3 NT Parameters bus drivers and diagonals for shoulder stability - NT Intervention 1# MB on wall up/lat x10 each bilat. NT Parameters Sh flexion with 1# 10 BL PT Treatment Times Therex Total Time 40 Direct Treatment Time 40 Total Treatment Time 44 Goals: Physical Therapy Ortho Goals: CARRYING/MOVING/HANDLING: Patient will be able to place items on a shelf overhead in 4 weeks CARRYING/MOVING/HANDLING: Patient will be able to lift and carry common household items without difficulty in 4 weeks SELF CARE: Patient will be able to complete ADL's including bathing, dressing, and hair care without difficulty in 4 weeks. IMPAIRMENT: Patient will demonstrate improved postural awareness in PT sessions to facilitate mechanical alignment and function in 3 weeks. IMPAIRMENT: Improve pain to <4/10 during prolonged standing/walking, lifting, carrying and reaching in 4 weeks IMPAIRMENT: Improve gross MMT of the Shoulder to at least 3+/5 in 4 weeks IMPAIRMENT: Improve AROM of Bilateral Shoulder Flexion and Abduction to at least 160 degrees in 4 weeks. OTHER: Patient will increase FOTO score from 40 / 41 to at least 60 to show MDC/MCII and expected functional outcome in 4 weeks. OTHER: Patient will be able to properly demonstrate independence with HEP in 1 week. MOBILITY: Patient will be able to ambulate for 1 hour in community and ambulate on uneven surfaces without difficulty in 4 weeks. MOBILITY: Patient will be able to ascend/descend stairs without difficulty in 4 weeks. IMPAIRMENT: Improve AROM of the Knee to 0-120 degrees in 4 weeks. Patient Education: Verbal HEP with patient verbalized understanding. Post-Treatment Pain Scale: 1 Assessment: Patient had an expected response to treatment. Skilled Intervention demonstrated by modifications of treatment per exercise log including assessment of patient's response and safety interventions per exercise log. Progress towards goals as expected. Plan for Next Visit: Treatment Visit with focus on progressing as tolerated Juan Lee PTA STATE LICENSE, [id number] documented in this encounter [facility] 12-05-2022 History of Present illness Narrative [facility] DAILY TREATMENT NOTE Today's Date 12/05/2022 Patient Name: Cynthia Cisneros Date of : 1950 Current Visit #: 14 Authorized Visits: 199 Case Name: Bilateral Shoulder and Bilateral Knee Pain History: Pre-Treatment Pain Scale: 1 Symptoms: stabilized Functional Diagnosis: 1. Primary osteoarthritis of both knees 2. Impingement syndrome of both shoulders Clinical Information: Subjective: Pt reports low pain today and min soreness after LV, she is concerned with her current ankle, knee and hip strength Objective Held UE ex's and focused on LE and ankle Treatments: Physical Therapy Exercise Log - 12/05/22 1554 OTHER Precautions/Contraindications Supervising PT: Lalo Notes visit 13 [id number] Therapeutic Exercise (12926) Intervention sci fit 5' lvl 4 Parameters standing calf, lunge and HS stretches 3x20 Intervention Ankle 4 way RTB x20 Parameters lateral step ups 6 x10NT Intervention lunge into BOSU x10 alt , BOSU step-ups x10 Parameters SLS with UE support 4x10'' Intervention TKE w/ casillas tube 10x5 Parameters Shuttle squats - x 20 37# Intervention cane ext behind back and up the back 20 each Parameters Wall push up x12 Intervention standing rows L3 x20 ext L3 x15 Parameters IR/ER L3 x20 bilat. Intervention Wall walk up and lateral, W press x3 NT Parameters bus drivers and diagonals for shoulder stability - NT Intervention 1# MB on wall up/lat x10 each bilat. NT Parameters Sh flexion with 1# 10 BL PT Treatment Times Therex Total Time 41 Direct Treatment Time 41 Total Treatment Time 41 Goals: Physical Therapy Ortho Goals: CARRYING/MOVING/HANDLING: Patient will be able to place items on a shelf overhead in 4 weeks CARRYING/MOVING/HANDLING: Patient will be able to lift and carry common household items without difficulty in 4 weeks SELF CARE: Patient will be able to complete ADL's including bathing, dressing, and hair care without difficulty in 4 weeks. IMPAIRMENT: Patient will demonstrate improved postural awareness in PT sessions to facilitate mechanical alignment and function in 3 weeks. IMPAIRMENT: Improve pain to <4/10 during prolonged standing/walking, lifting, carrying and reaching in 4 weeks IMPAIRMENT: Improve gross MMT of the Shoulder to at least 3+/5 in 4 weeks IMPAIRMENT: Improve AROM of Bilateral Shoulder Flexion and Abduction to at least 160 degrees in 4 weeks. OTHER: Patient will increase FOTO score from 40 / 41 to at least 60 to show MDC/MCII and expected functional outcome in 4 weeks. OTHER: Patient will be able to properly demonstrate independence with HEP in 1 week. MOBILITY: Patient will be able to ambulate for 1 hour in community and ambulate on uneven surfaces without difficulty in 4 weeks. MOBILITY: Patient will be able to ascend/descend stairs without difficulty in 4 weeks. IMPAIRMENT: Improve AROM of the Knee to 0-120 degrees in 4 weeks. Patient Education: Verbal HEP with patient verbalized understanding. Post-Treatment Pain Scale: 1 Assessment: Patient had an expected response to treatment. Skilled Intervention demonstrated by modifications of treatment per exercise log including assessment of patient's response and safety interventions per exercise log. Progress towards goals as expected. Plan for Next Visit: Treatment Visit with focus on progressing as tolerated Juan Lee PTA STATE LICENSE, [id number] documented in this encounter [facility] 11-28-2022 History of Present illness Narrative [facility] DAILY TREATMENT NOTE Today's Date 11/28/2022 Patient Name: Cynthia Cisneros Date of : 1950 Current Visit #: 12 Authorized Visits: 199 Case Name: Bilateral Shoulder and Bilateral Knee Pain History: Pre-Treatment Pain Scale: R shoulder 0/10 resting, using 2/10; Knee Symptoms: stabilized Functional Diagnosis: 1. Primary osteoarthritis of both knees 2. Impingement syndrome of both shoulders Clinical Information: Subjective: knee are doing good and not feel so week. Shoulder are lot better since started but still has pain in bicep with CW motion. Objective Treatments: Physical Therapy Exercise Log - 11/28/22 1604 OTHER Precautions/Contraindications Supervising PT: Lalo Notes visit 12 4:03 4:47 Therapeutic Exercise (52169) Intervention sci fit 5' lvl 4 Parameters standing calf and HS stretches 3x20 Intervention lunge into BOSU x10 alt , BOSU step-ups x10 Parameters lateral step ups 6 x10NT Intervention -- Parameters excursions on airex x5 bilat. (no airex) Intervention TKE w/ casillas tube 10x5 Parameters Shuttle squats - x 20 37# Intervention cane ext behind back and up the back 20 each Parameters Wall push up x12 Intervention standing rows L3 x20 ext L3 x15 Parameters IR/ER L3 x20 bilat. Intervention Wall walk up and lateral, W press x3 NT Parameters bus drivers and diagonals for shoulder stability - NT Intervention 1# MB on wall up/lat x10 each bilat. NT Parameters Sh flexion with 1# 10 BL PT Treatment Times Therex Total Time 44 Direct Treatment Time 44 Goals: Physical Therapy Ortho Goals: CARRYING/MOVING/HANDLING: Patient will be able to place items on a shelf overhead in 4 weeks CARRYING/MOVING/HANDLING: Patient will be able to lift and carry common household items without difficulty in 4 weeks SELF CARE: Patient will be able to complete ADL's including bathing, dressing, and hair care without difficulty in 4 weeks. IMPAIRMENT: Patient will demonstrate improved postural awareness in PT sessions to facilitate mechanical alignment and function in 3 weeks. IMPAIRMENT: Improve pain to <4/10 during prolonged standing/walking, lifting, carrying and reaching in 4 weeks IMPAIRMENT: Improve gross MMT of the Shoulder to at least 3+/5 in 4 weeks IMPAIRMENT: Improve AROM of Bilateral Shoulder Flexion and Abduction to at least 160 degrees in 4 weeks. OTHER: Patient will increase FOTO score from 40 / 41 to at least 60 to show MDC/MCII and expected functional outcome in 4 weeks. OTHER: Patient will be able to properly demonstrate independence with HEP in 1 week. MOBILITY: Patient will be able to ambulate for 1 hour in community and ambulate on uneven surfaces without difficulty in 4 weeks. MOBILITY: Patient will be able to ascend/descend stairs without difficulty in 4 weeks. IMPAIRMENT: Improve AROM of the Knee to 0-120 degrees in 4 weeks. Patient Education: Quality of movement, Verbal HEP, and Diagnosis and recovery specific education with patient verbalized understanding. Post-Treatment Pain Scale: R knee burning, Sh 0/10 Assessment: Patient had an expected response to treatment. Skilled Intervention demonstrated by modifications of treatment per exercise log including increased load, increased mobility, and assessment of patient's response and safety interventions per exercise log. Progress towards goals as expected. Plan for Next Visit: Treatment Visit with focus on continue Cheyanne Brian PT STATE LICENSE, [id number] documented in this encounter [facility] 11-25-2022 Note Addended by: SJ MOTLEY on: 11/25/2022 05:20 PM Modules accepted: Level of Service [facility] 11-25-2022 Miscellaneous Notes Addended by: SJ MOTLEY on: 11/25/2022 05:20 PM Modules accepted: Level of Service Associated Problem(s): Bipolar disorder (HCC) Depression and bipolar disorder, will get psychiatry evaluation and previous notes. Currently stable on mirtazapine we will keep monitoring acute anxiety episodes in the future visits. Associated Problem(s): Osteoporosis Unsure of the last DEXA scan she will check her records and let me know. Has been on Prolia for the last 3 years tolerating it well. We will follow-up on records to see when she would get her next bone density scan. Associated Problem(s): AVN (avascular necrosis of bone) ([facility]) Confirmed with CT imaging of the hip back in 2020, s/p hip replacement with Dr. Valencia. Receiving PT. Associated Problem(s): Eosinophilic asthma Managed on Nucala with her previous kennel worker, referral to pulmonology placed today through [facility]. Associated Problem(s): COPD (chronic obstructive pulmonary disease) ([facility]) Secondary to smoking. Currently stable on nebulized Pulmicort and albuterol that she does every day as well as Bevespi Wants to establish care with pulmonology in [facility], referral placed today. Associated Problem(s): Chronic maxillary sinusitis Chronic, suspicion for acute flare especially with current symptoms of vertigo and watery eyes that could be an allergic reaction. Patient was advised to start taking Lasha and Flonase. We will start patient on a prednisone taper to see if it helps with her vertigo and middle ear effusion on the left side. Saline rinses and sinus toilet was recommended and she will follow-up on MyChart if symptoms or not improving to send her back sooner to ENT. Associated Problem(s): Hypothyroidism (acquired) Currently on levothyroxine 88 mcg, repeat blood blood work and TFTs today. Associated Problem(s): Diabetes type 2, controlled (HCC) Diet controlled at this time, will repeat blood work and follow-up on results. Associated Problem(s): GERD (gastroesophageal reflux disease) Chronic, currently on lansoprazole 30 mg. Advised to look into triggers for her reflux symptoms specially with using prednisone to help with the sinusitis. documented in this encounter [facility] 11-25-2022 Evaluation + Plan note Associated Problem(s): Bipolar disorder (HCC) Depression and bipolar disorder, will get psychiatry evaluation and previous notes. Currently stable on mirtazapine we will keep monitoring acute anxiety episodes in the future visits. [facility] 11-25-2022 Evaluation + Plan note Associated Problem(s): Osteoporosis Unsure of the last DEXA scan she will check her records and let me know. Has been on Prolia for the last 3 years tolerating it well. We will follow-up on records to see when she would get her next bone density scan. [facility] 11-25-2022 Evaluation + Plan note Associated Problem(s): AVN (avascular necrosis of bone) (HCC) Confirmed with CT imaging of the hip back in 2020, s/p hip replacement with Dr. Valencia. Receiving PT. [facility] 11-25-2022 Evaluation + Plan note Associated Problem(s): Eosinophilic asthma Managed on Nucala with her previous kennel worker, referral to pulmonology placed today through [facility]. [facility] 11-25-2022 Evaluation + Plan note Associated Problem(s): COPD (chronic obstructive pulmonary disease) (HCC) Secondary to smoking. Currently stable on nebulized Pulmicort and albuterol that she does every day as well as Bevespi Wants to establish care with pulmonology in [facility], referral placed today. [facility] 11-25-2022 Evaluation + Plan note Associated Problem(s): Chronic maxillary sinusitis Chronic, suspicion for acute flare especially with current symptoms of vertigo and watery eyes that could be an allergic reaction. Patient was advised to start taking Lasha and Flonase. We will start patient on a prednisone taper to see if it helps with her vertigo and middle ear effusion on the left side. Saline rinses and sinus toilet was recommended and she will follow-up on MyChart if symptoms or not improving to send her back sooner to ENT. [facility] 11-25-2022 Evaluation + Plan note Associated Problem(s): Hypothyroidism (acquired) Currently on levothyroxine 88 mcg, repeat blood blood work and TFTs today. [facility] 11-25-2022 Evaluation + Plan note Associated Problem(s): Diabetes type 2, controlled (HCC) Diet controlled at this time, will repeat blood work and follow-up on results. [facility] 11-25-2022 Evaluation + Plan note Associated Problem(s): GERD (gastroesophageal reflux disease) Chronic, currently on lansoprazole 30 mg. Advised to look into triggers for her reflux symptoms specially with using prednisone to help with the sinusitis. [facility] 11-25-2022 History of Present illness Narrative ----- Message ----- From: Sj Motley MD Sent: 11/25/2022 2:56 PM EDT To: Alanna Sethi MA Please get records from surgery in [place] and of thyroid. PCP notes Faxed for records Dr. Richard [phone] And [facility] [phone] Chief Complaint Patient presents with Establish Care GRAPHIC ART DESIGNER TO EST PCP Dizziness Intermittent X 3 weeks about, Otalgia Ongoing staph in sinus HPI: Elizabeth Cisneros is a 72-year-old female presenting today as a new patient to establish care. Has PMH of anxiety, depression, arrhythmias, asthma, GERD, hyperlipidemia, hypertension, hypothyroidism, chronic sinusitis, COPD and skin squamous cell cancer. Used to follow-up since 2018 [facility] in [place], transferring care to [facility]. left subacute maxillary sinusitis: Chronic, confirmed with CT imaging in the past last was in April 2022. Has been treated over time with several rounds of antibiotics. Last cultures revealed staph infection for which she finished a round of clindamycin last month. Has had at 1 point cultures collected in July showing fusiform bacteria. Patient is frustrated from having to go through recurrent infections, having daily sinus secretions when she does her normal saline rinses. Currently having a new vertigo and pain in the maxillary sinus which is similar to her previous acute infections. Last evaluation with Dr. Echols, showed no free pus in the left maxillary cavity with follow-up scheduled in 3 months Vertigo , pain in the maxillary sinus , watery eyes and left ear pain. Relief mildly with normal saline rinse. Got some green pus today, today he does not have much of the symptoms. Uses daily Sudafed and Flonase and going to start taking Lasha. Bilateral knee and shoulder pain: Following up with orthopedics and going through PT, sometimes gets steroid injection in them. Depression: Chronic , used to follow up with psychiatry in the past Was tried on several medications including Paxil , cymbalta, lexapro, zoloft , prozac, velazodone with minimal tolerance. Currently on mirtazapine 37.5 mg which works well for her. HTN: Chronic , hydrochlorothiazide intolerant and different other BP medications that she can not remember . Currently stable on atenolol and lasix 20 mg . COPD and asthma : Has budesonide and albuterol nebulized in addition to Bevespi which control her symptoms. Eosinophilic asthma on Nucala every /28 day following up with pulmonology in [place]. Former smoker quit in 2021 Osteoporosis: Unsure of the last DEXA scan she will check her records and let me know. Has been on Prolia for the last 3 years tolerating it well. Rosacea: Follows up with dermatology in [place] with Dr. Tano Yates for which she is on topical [id number] which seems to control her symptoms. Past Medical History: Diagnosis Date Anemia 03/2016 Anxiety 09/2002 General anxiety disorder Arrhythmia Arthritis Asthma Bruises easily Cancer (HCC) 06/1991 Cervical cancer Clostridium difficile infection 1999 COPD (chronic obstructive pulmonary disease) (HCC) Diagnosed several years ago Coronary artery disease Depression Diabetes mellitus (HCC) Borderline GERD (gastroesophageal reflux disease) 05/20/2016 Heart murmur Hyperlipidemia Hypertension Hypothyroidism (acquired) 05/20/2016 Injury of back Osteoporosis 11/25/2022 Squamous cell skin cancer Valvular disease MVP Past Surgical History: Procedure Laterality Date ADENOIDECTOMY 1994 APPENDECTOMY ARTHROPLASTY HIP ROBOTIC EUGENE Left 10/21/2021 Procedure: Left Total Hip Replacement Robotic; Surgeon: Jovanna Valencia MD; Location: Main OR; Service: Ortho-Robotics CARPAL TUNNEL RELEASE Left CATARACT EXTRACTION W/ INTRAOCULAR LENS IMPLANT Bilateral COLON SURGERY WITH ILEOSTOMY CORE DECOMPRESSION OF LEFT FEMEROL HEAD EYE SURGERY Bilateral LASER TO EYES FOR GLAUCOMA HANDS, DUPYTRENS, TRIGGER FINGER, CARPAL TUNNEL Right HYSTERECTOMY 1990 ILEOSTOMY REVERSAL INDEX FINGER SURGERY Right JOINT REPLACEMENT MUSCLE BIOPSY ROTATOR CUFF REPAIR Left SINUS SURGERY January 2018 and nik bullosa resection - Dr. Watters SINUS SURGERY 12/30/2019 balloon sinuplasty - Dr. Key SKIN BIOPSY TONSILLECTOMY TRIGGER FINGER RELEASE Right 03/24/2018 Procedure: RELEASE A1 TOD LEFT MIDDLE,RING, AND SMALL FINGERS WITH CORTISONE INJECTION RIGHT MIDDLE FINGER A1 TOD; Surgeon: Yonas Nguyen MD; Location: [facility] Main OR; Service: Hand TUBAL LIGATION Family History Problem Relation Age of Onset Hypertension Mother Arthritis Mother Cancer Mother Heart disease Mother Hypertension Father Asthma Father COPD Father Diabetes Father Hearing loss Father Heart disease Father Hyperlipidemia Father Heart disease Maternal Grandfather COPD Brother Diabetes Brother Heart disease Sister Hypertension Sister Anesthesia problems Neg Hx Social History Tobacco Use Smoking status: Former Packs/day: 0.25 Years: 35.00 Pack years: 8.75 Types: Cigarettes Quit date: 09/17/2021 Years since quittin.1 Smokeless tobacco: Never Tobacco comments: Cigarettes Vaping Use Vaping status: Never Used Substance Use Topics Alcohol use: No Drug use: No Review of Systems Vitals: 11/25/22 1413 BP: (!) 153/88 BP Location: Right arm Patient Position: Sitting BP Cuff Size: X-large Adult Pulse: 83 Resp: 16 Temp: 98.2 F (36.8 C) TempSrc: Oral SpO2: 95% Weight: 73 kg (161 lb) Height: 5' 3 Estimated body mass index is 28.52 kg/m as calculated from the following: Height as of this encounter: 5' 3. Weight as of this encounter: 73 kg (161 lb). Physical Exam Constitutional: General: She is not in acute distress. Appearance: She is not ill-appearing. HENT: Head: Normocephalic and atraumatic. Right Ear: Tympanic membrane, ear canal and external ear normal. Left Ear: Ear canal and external ear normal. Ears: Comments: Left middle ear effusion. Nose: Nose normal. Mouth/Throat: Mouth: Mucous membranes are moist. Pharynx: Oropharynx is clear. No oropharyngeal exudate or posterior oropharyngeal erythema. Eyes: Extraocular Movements: Extraocular movements intact. Conjunctiva/sclera: Conjunctivae normal. Pupils: Pupils are equal, round, and reactive to light. Cardiovascular: Rate and Rhythm: Normal rate and regular rhythm. Pulses: Normal pulses. Heart sounds: Normal heart sounds. No murmur heard. No gallop. Pulmonary: Effort: Pulmonary effort is normal. Breath sounds: Normal breath sounds. No wheezing, rhonchi or rales. Chest: Chest wall: No tenderness. Abdominal: General: Abdomen is flat. Bowel sounds are normal. There is no distension. Palpations: Abdomen is soft. There is no mass. Tenderness: There is no abdominal tenderness. There is no right CVA tenderness, left CVA tenderness, guarding or rebound. Musculoskeletal: General: No tenderness. Normal range of motion. Cervical back: Normal range of motion and neck supple. No rigidity. No muscular tenderness. Right lower leg: No edema. Left lower leg: No edema. Lymphadenopathy: Cervical: No cervical adenopathy. Skin: General: Skin is warm. Findings: No erythema or rash. Neurological: General: No focal deficit present. Mental Status: She is alert and oriented to person, place, and time. Sensory: No sensory deficit. Motor: No weakness. Gait: Gait normal. Psychiatric: Mood and Affect: Mood normal. Behavior: Behavior normal. Thought Content: Thought content normal. Judgment: Judgment normal. OARRS/NARxCHECK Report Received and Assessed: No data found Date controlled substance agreement signed: No data found Date of last drug screen: No data found Functional Assessment: No data found @Exam@ PHQ9: TADEO-7 Tobacco Counseling: Counseling given: Not Answered Tobacco comments: Cigarettes Patient's Medications New Prescriptions PREDNISONE (DELTASONE) 10 MG TABLET Take 4 (four) tablets (40 mg total) by mouth daily for 3 days, THEN 3 (three) tablets (30 mg total) daily for 3 days, THEN 2 (two) tablets (20 mg total) daily for 3 days, THEN 1 (one) tablet (10 mg total) daily for 3 days, THEN 0.5 (one-half) tablet (5 mg total) daily for 3 days. Previous Medications ALBUTEROL (PROVENTIL) 2.5 MG/0.5 ML NEBU Take 0.5 mL (2.5 mg total) by nebulization every 4 to 6 hours as needed (shortness of breath, wheezes) DOS . ATENOLOL (TENORMIN) 50 MG TABLET Take 1 (one) tablet (50 mg total) by mouth 2 (two) times a day . BEVESPI AEROSPHERE 9-4.8 MCG HFAA inhale 2 puffs by mouth and INTO THE LUNGS every morning and every evening BUDESONIDE (PULMICORT) 0.25 MG/2 ML NEBULIZER SOLUTION Take 2 mL (0.25 mg total) by nebulization 2 (two) times a day . CALCITRATE 200 MG (950 MG) TABLET Take 200 mg by mouth 3 (three) times a day . DENOSUMAB (PROLIA) 60 MG/ML SYRG Inject 60 (sixty) mg under the skin once Q 6 months . FISH OIL 1,200 (144-216) MG CAP Take 1 capsule by mouth 3 (three) times a day . FLUTICASONE (FLONASE) 50 MCG/ACTUATION NASAL SPRAY Instill 1 (one) spray into each nostril every morning DOS . FOLIC ACID (FOLVITE) 1 MG TABLET Take 1.5 (one and a half) tablets (1.5 mg total) by mouth daily . FUROSEMIDE (LASIX) 20 MG TABLET Take 1 (one) tablet (20 mg total) by mouth daily . GUAIFENESIN (MUCINEX) 600 MG 12 HR TABLET Take 2 (two) tablets (1,200 mg total) by mouth 2 (two) times a day . [id number] 1-1-4 % GEL LANSOPRAZOLE (PREVACID) 30 MG CAPSULE TAKE 1 CAPSULE BY MOUTH EVERY MORNING before BREAKFAST ON AN EMPTY STOMACH LEVOTHYROXINE (SYNTHROID, LEVOTHROID) 75 MCG TABLET Take 1 (one) tablet (75 mcg total) by mouth every morning DOS . MAGNESIUM OXIDE (MAG-OX) 400 MG TABLET Take 2.5 (two and a half) tablets (1,000 mg total) by mouth nightly . METAXALONE (SKELAXIN) 800 MG TABLET take 1 tablet by mouth three times a day if needed for muscle aches MIRTAZAPINE (REMERON) 30 MG TABLET Take 1 (one) tablet (30 mg total) by mouth nightly Takes additional 7.5 . MIRTAZAPINE (REMERON) 7.5 MG TABLET Take 1 (one) tablet (7.5 mg total) by mouth nightly . MUPIROCIN (BACTROBAN) 2 % OINTMENT instill into both nostrils THREE TIMES DAILY FOR 10 DAYS NUCALA 100 MG/ML ATIN OMEGA-3 FATTY ACIDS-FISH OIL 360-1,200 MG CAP Take by mouth 3 (three) times a day . PILOCARPINE (SALAGEN) 5 MG TABLET Take 1 (one) tablet (5 mg total) by mouth 3 (three) times a day . SODIUM CHLORIDE-ALOE VERA (AYR SALINE) GEL Apply topically 2 (two) times a day Apply a pea sized amount to both nostrils at bedtime and in a.m. You can use it more often. . THEREMS-M 9 MG IRON-400 MCG TAB Take 1 (one) tablet by mouth daily . VITAMIN D3 2,000 UNIT CAP Take 1 (one) capsule by mouth 2 (two) times a day . Modified Medications No medications on file Discontinued Medications CLINDAMYCIN (CLEOCIN) 300 MG CAPSULE Take 1 (one) capsule (300 mg total) by mouth 3 (three) times a day . Health Maintenance Due Topic Date Due Colorectal Cancer Screening/Monitoring Never done PT Plan of Care Never done Dexa Scan Never done Wellness Visit Never done Foot Exam Never done Ophthalmology Exam Never done Urine Microalbumin Never done Hepatitis C Screening Never done Mammogram Never done A1C 04/06/2022 Assessment & Plan Problem List Items Addressed This Visit Digestive GERD (gastroesophageal reflux disease) Chronic, currently on lansoprazole 30 mg. Advised to look into triggers for her reflux symptoms specially with using prednisone to help with the sinusitis. Endocrine Diabetes type 2, controlled (HCC) Diet controlled at this time, will repeat blood work and follow-up on results. Relevant Orders Microalbumin/Creatinine Ratio, UR Random Hemoglobin A1c Lipid Panel Comprehensive Metabolic Panel Hypothyroidism (acquired) Currently on levothyroxine 88 mcg, repeat blood blood work and TFTs today. Relevant Medications predniSONE (DELTASONE) 10 MG tablet Other Relevant Orders TSH with Reflex Free T4 Respiratory COPD (chronic obstructive pulmonary disease) (HCC) Secondary to smoking. Currently stable on nebulized Pulmicort and albuterol that she does every day as well as Bevespi Wants to establish care with pulmonology in [facility], referral placed today. Relevant Orders Ambulatory referral to Pulmonology Chronic maxillary sinusitis - Primary Chronic, suspicion for acute flare especially with current symptoms of vertigo and watery eyes that could be an allergic reaction. Patient was advised to start taking Lasha and Flonase. We will start patient on a prednisone taper to see if it helps with her vertigo and middle ear effusion on the left side. Saline rinses and sinus toilet was recommended and she will follow-up on MyChart if symptoms or not improving to send her back sooner to ENT. 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 Relevant Medications predniSONE (DELTASONE) 10 MG tablet Other Relevant Orders Ambulatory referral to Pulmonology Musculoskeletal and Integument AVN (avascular necrosis of bone) (HCC) Confirmed with CT imaging of the hip back in 2020, s/p hip replacement with Dr. Valencia. Receiving PT. Osteoporosis Unsure of the last DEXA scan she will check her records and let me know. Has been on Prolia for the last 3 years tolerating it well. We will follow-up on records to see when she would get her next bone density scan. Relevant Orders Vitamin D, Total, 25-OH Other Bipolar disorder (HCC) Depression and bipolar disorder, will get psychiatry evaluation and previous notes. Currently stable on mirtazapine we will keep monitoring acute anxiety episodes in the future visits. I spent 60 minutes with patient reviewing HPI and coordinating plan of care as well as documenting that note. Return in about 2 months (around 01/25/2023) for Follow Up, 40 mins . SJ MOTLEY MD [facility] [address] Dept: [phone] documented in this encounter [facility] 11-24-2022 History of Present illness Narrative [facility] DAILY TREATMENT NOTE Today's Date 11/24/2022 Patient Name: Cynthia Cisneros Date of : 1950 Current Visit #: 11 Authorized Visits: [id number] Case Name: Bilateral Shoulder and Bilateral Knee Pain History: Pre-Treatment Pain Scale: 2 Symptoms: gradually improved Functional Diagnosis: 1. Primary osteoarthritis of both knees 2. Impingement syndrome of both shoulders Clinical Information: Subjective: She has been having SI pain and going to chiropractor. Her knees are sore today d/t weakness. Objective Added LTR with good tolerance and ant/lat delts in standing Treatments: Physical Therapy Exercise Log - 11/24/22 1442 OTHER Precautions/Contraindications Supervising PT: Lalo Notes visit 10: 1:03-1:44 Therapeutic Exercise (21004) Intervention sci fit 5' lvl 3 Parameters standing calf and HS stretches 3x20 Intervention lunge into BOSU x20 alt / BOSU step-ups x10 Parameters lateral step ups 6 x10 Intervention Steamboats x10 bilat. L3 - NT Parameters excursions on airex x5 bilat. (no airex in left stance) Intervention TKE w/ casillas tube 10x5 Parameters Shuttle squats - x15 37# Intervention cane ext behind back and up the back 20 each Parameters Wall push up x12 Intervention standing rows L3 x20 ext L3 x15 Parameters IR/ER L3 x20 bilat. Intervention Wall walk up and lateral, W press x3 Parameters bus drivers and diagonals for shoulder stability - NT Intervention 1# MB on wall up/lat x10 each bilat. PT Treatment Times Therex Total Time 41 Direct Treatment Time 41 Total Treatment Time 41 Goals: Physical Therapy Ortho Goals: CARRYING/MOVING/HANDLING: Patient will be able to place items on a shelf overhead in 4 weeks CARRYING/MOVING/HANDLING: Patient will be able to lift and carry common household items without difficulty in 4 weeks SELF CARE: Patient will be able to complete ADL's including bathing, dressing, and hair care without difficulty in 4 weeks. IMPAIRMENT: Patient will demonstrate improved postural awareness in PT sessions to facilitate mechanical alignment and function in 3 weeks. IMPAIRMENT: Improve pain to <4/10 during prolonged standing/walking, lifting, carrying and reaching in 4 weeks IMPAIRMENT: Improve gross MMT of the Shoulder to at least 3+/5 in 4 weeks IMPAIRMENT: Improve AROM of Bilateral Shoulder Flexion and Abduction to at least 160 degrees in 4 weeks. OTHER: Patient will increase FOTO score from 40 / 41 to at least 60 to show MDC/MCII and expected functional outcome in 4 weeks. OTHER: Patient will be able to properly demonstrate independence with HEP in 1 week. MOBILITY: Patient will be able to ambulate for 1 hour in community and ambulate on uneven surfaces without difficulty in 4 weeks. MOBILITY: Patient will be able to ascend/descend stairs without difficulty in 4 weeks. IMPAIRMENT: Improve AROM of the Knee to 0-120 degrees in 4 weeks. Patient Education: Quality of movement with patient demonstrated understanding. Post-Treatment Pain Scale: 2 Assessment: Patient had an expected response to treatment. Skilled Intervention demonstrated by modifications of treatment per exercise log including increased load and safety interventions per exercise log. Progress towards goals as expected. Plan for Next Visit: Treatment Visit with focus on pain control Kely Wolf PTA STATE LICENSE, [id number] documented in this encounter [facility] 11-18-2022 History of Present illness Narrative [facility] DAILY TREATMENT NOTE Today's Date 11/18/2022 Patient Name: Cynthia Cisneros Date of : 1950 Current Visit #: 9 Authorized Visits: [id number] Case Name: Bilateral Shoulder and Bilateral Knee Pain History: Pre-Treatment Pain Scale: 3 Symptoms: gradually improved Functional Diagnosis: 1. Primary osteoarthritis of both knees 2. Impingement syndrome of both shoulders Clinical Information: Subjective: Pt states her knees are feeling pretty good today but she has been noticing more pain in her left shoulder especially with elevation and reaching across and away from the body. Objective Treatments: Physical Therapy Exercise Log - 11/18/22 1516 OTHER Precautions/Contraindications Supervising PT: Lalo Notes visit 8: 3:16 - 3:56 Therapeutic Exercise ([id number]) Intervention sci fit 5' lvl 3 Parameters standing calf and HS stretches 3x20 Intervention lunge into BOSU x20 alt Parameters lateral step ups 6 x10 Intervention Steamboats x10 bilat. L3 Parameters Shuttle squats - x15 37# Intervention standing rows L3 x20 ext L3 x15 Parameters IR/ER L3 x20 bilat. Intervention cane ext behind back and up the back 20 each Parameters Wall push up x12 Intervention Wall walk up and lateral, W press x3 PT Treatment Times Therex Total Time 40 Direct Treatment Time 40 Total Treatment Time 40 Goals: Physical Therapy Ortho Goals: CARRYING/MOVING/HANDLING: Patient will be able to place items on a shelf overhead in 4 weeks CARRYING/MOVING/HANDLING: Patient will be able to lift and carry common household items without difficulty in 4 weeks SELF CARE: Patient will be able to complete ADL's including bathing, dressing, and hair care without difficulty in 4 weeks. IMPAIRMENT: Patient will demonstrate improved postural awareness in PT sessions to facilitate mechanical alignment and function in 3 weeks. IMPAIRMENT: Improve pain to <4/10 during prolonged standing/walking, lifting, carrying and reaching in 4 weeks IMPAIRMENT: Improve gross MMT of the Shoulder to at least 3+/5 in 4 weeks IMPAIRMENT: Improve AROM of Bilateral Shoulder Flexion and Abduction to at least 160 degrees in 4 weeks. OTHER: Patient will increase FOTO score from 40 / 41 to at least 60 to show MDC/MCII and expected functional outcome in 4 weeks. OTHER: Patient will be able to properly demonstrate independence with HEP in 1 week. MOBILITY: Patient will be able to ambulate for 1 hour in community and ambulate on uneven surfaces without difficulty in 4 weeks. MOBILITY: Patient will be able to ascend/descend stairs without difficulty in 4 weeks. IMPAIRMENT: Improve AROM of the Knee to 0-120 degrees in 4 weeks. Patient Education: Quality of movement, Verbal HEP, and Diagnosis and recovery specific education with patient verbalized understanding. Post-Treatment Pain Scale: 1 Assessment: Patient had an expected response to treatment. Skilled Intervention demonstrated by modifications of treatment per exercise log including assessment of patient's response and safety interventions per exercise log. Progress towards goals as expected. Plan for Next Visit: Treatment Visit with focus on progression of dynamic strength and stability Jonathan Solis PT State License, [id number] documented in this encounter [facility] 11-12-2022 History of Present illness Narrative [facility] DAILY TREATMENT NOTE Today's Date 11/12/2022 Patient Name: Cynthia Cisneros Date of : 1950 Current Visit #: 8 Authorized Visits: 199 Case Name: Bilateral Shoulder and Bilateral Knee Pain History: Pre-Treatment Pain Scale: 2 Symptoms: gradually improved Functional Diagnosis: 1. Primary osteoarthritis of both knees 2. Impingement syndrome of both shoulders Clinical Information: Subjective: She has missed 2 weeks of therapy d/t illness but has been doing HEP Objective quick fatigue with shoulder exercises. Treatments: Physical Therapy Exercise Log - 11/12/22 1552 OTHER Precautions/Contraindications Supervising PT: Lalo Notes visit 7:3:15-3:55 Therapeutic Exercise ([id number]) Intervention sci fit 5' lv 3 Parameters standing calf and HS stretches 3x20 Intervention lunge into BOSU x20 alt Parameters lateral step ups 6 x10 Intervention Steamboats x10 bilat. L3 Parameters Shuttle squats - x15 37# Intervention standing rows L3 x20 ext L3 x15 Parameters IR/ER L3 x20 bilat. Intervention cane ext behind back and up the back 20 each Parameters Wall push up x12 Intervention Wall walk up and lateral, W press x3 PT Treatment Times Therex Total Time 40 Direct Treatment Time 40 Total Treatment Time 40 Goals: Physical Therapy Ortho Goals: CARRYING/MOVING/HANDLING: Patient will be able to place items on a shelf overhead in 4 weeks CARRYING/MOVING/HANDLING: Patient will be able to lift and carry common household items without difficulty in 4 weeks SELF CARE: Patient will be able to complete ADL's including bathing, dressing, and hair care without difficulty in 4 weeks. IMPAIRMENT: Patient will demonstrate improved postural awareness in PT sessions to facilitate mechanical alignment and function in 3 weeks. IMPAIRMENT: Improve pain to <4/10 during prolonged standing/walking, lifting, carrying and reaching in 4 weeks IMPAIRMENT: Improve gross MMT of the Shoulder to at least 3+/5 in 4 weeks IMPAIRMENT: Improve AROM of Bilateral Shoulder Flexion and Abduction to at least 160 degrees in 4 weeks. OTHER: Patient will increase FOTO score from 40 / 41 to at least 60 to show MDC/MCII and expected functional outcome in 4 weeks. OTHER: Patient will be able to properly demonstrate independence with HEP in 1 week. MOBILITY: Patient will be able to ambulate for 1 hour in community and ambulate on uneven surfaces without difficulty in 4 weeks. MOBILITY: Patient will be able to ascend/descend stairs without difficulty in 4 weeks. IMPAIRMENT: Improve AROM of the Knee to 0-120 degrees in 4 weeks. Patient Education: Quality of movement with patient demonstrated understanding. Post-Treatment Pain Scale: 1 Assessment: Patient had an expected response to treatment. Skilled Intervention demonstrated by modifications of treatment per exercise log including increased load and safety interventions per exercise log. Progress towards goals as expected. Plan for Next Visit: Treatment Visit with focus on strengthening Kely Wolf PTA STATE LICENSE, [id number] documented in this encounter [facility] 10-28-2022 History of Present illness Narrative [facility] DAILY TREATMENT NOTE Today's Date 10/28/2022 Patient Name: Cynthia Cisneros Date of : 1950 Current Visit #: 7 Authorized Visits: 199 Case Name: Bilateral Shoulder and Bilateral Knee Pain History: Pre-Treatment Pain Scale: 0 Symptoms: gradually improved Functional Diagnosis: 1. Primary osteoarthritis of both knees 2. Impingement syndrome of both shoulders Clinical Information: Subjective: Pt reports no pain today but felt sore after the previous session. Compliant with HEP. Objective Treatments: Physical Therapy Exercise Log - 10/28/22 1300 OTHER Precautions/Contraindications Supervising PT: Lalo Notes visit 6 1:00- 1:42 Therapeutic Exercise ([id number]) Intervention sci fit 5' lv 3 Parameters standing calf and HS stretches 3x20 Intervention lunge into BOSU x20 alt Parameters lateral step ups 6 x10 Intervention Steamboats x10 bilat. L3 Parameters Shuttle squats - x15 37# Intervention standing rows L3 x20 ext L3 x15 Parameters IR/ER L3 x20 bilat. Intervention cane ext behind back and up the back 20 each Parameters Wall push up x12 Intervention Wall walk up and lateral, W press x3 PT Treatment Times Therex Total Time 42 Direct Treatment Time 42 Total Treatment Time 42 Goals: Physical Therapy Ortho Goals: CARRYING/MOVING/HANDLING: Patient will be able to place items on a shelf overhead in 4 weeks CARRYING/MOVING/HANDLING: Patient will be able to lift and carry common household items without difficulty in 4 weeks SELF CARE: Patient will be able to complete ADL's including bathing, dressing, and hair care without difficulty in 4 weeks. IMPAIRMENT: Patient will demonstrate improved postural awareness in PT sessions to facilitate mechanical alignment and function in 3 weeks. IMPAIRMENT: Improve pain to <4/10 during prolonged standing/walking, lifting, carrying and reaching in 4 weeks IMPAIRMENT: Improve gross MMT of the Shoulder to at least 3+/5 in 4 weeks IMPAIRMENT: Improve AROM of Bilateral Shoulder Flexion and Abduction to at least 160 degrees in 4 weeks. OTHER: Patient will increase FOTO score from 40 / 41 to at least 60 to show MDC/MCII and expected functional outcome in 4 weeks. OTHER: Patient will be able to properly demonstrate independence with HEP in 1 week. MOBILITY: Patient will be able to ambulate for 1 hour in community and ambulate on uneven surfaces without difficulty in 4 weeks. MOBILITY: Patient will be able to ascend/descend stairs without difficulty in 4 weeks. IMPAIRMENT: Improve AROM of the Knee to 0-120 degrees in 4 weeks. Patient Education: Quality of movement with patient demonstrated understanding. Post-Treatment Pain Scale: 0 Assessment: Patient had an expected response to treatment. Skilled Intervention demonstrated by modifications of treatment per exercise log including increased load and safety interventions per exercise log. Progress towards goals as expected. Plan for Next Visit: Treatment Visit with focus on Continued UE and LE strengthening. TIFFANIE Genao No licensure found in state: [place] Treatment directed and supervised by supervising therapist: Rubio Glynn PTA. Rubio Glynn PTA [id number] documented in this encounter [facility] 10-28-2022 History of Present illness Narrative [facility] DAILY TREATMENT NOTE Today's Date 10/28/2022 Patient Name: Cynthia Cisneros Date of : 1950 Current Visit #: 7 Authorized Visits: 199 Case Name: Bilateral Shoulder and Bilateral Knee Pain History: Pre-Treatment Pain Scale: 0 Symptoms: gradually improved Functional Diagnosis: 1. Primary osteoarthritis of both knees 2. Impingement syndrome of both shoulders Clinical Information: Subjective: Pt reports no pain today but felt sore after the previous session. Compliant with HEP. Objective Treatments: Physical Therapy Exercise Log - 10/28/22 1300 OTHER Precautions/Contraindications Supervising PT: Lalo Notes visit 6 1:00- 1:42 Therapeutic Exercise (37797) Intervention sci fit 5' lv 3 Parameters standing calf and HS stretches 3x20 Intervention lunge into BOSU x20 alt Parameters lateral step ups 6 x10 Intervention Steamboats x10 bilat. L3 Parameters Shuttle squats - x15 37# Intervention standing rows L3 x20 ext L3 x15 Parameters IR/ER L3 x20 bilat. Intervention cane ext behind back and up the back 20 each Parameters Wall push up x12 Intervention Wall walk up and lateral, W press x3 PT Treatment Times Therex Total Time 42 Direct Treatment Time 42 Total Treatment Time 42 Goals: Physical Therapy Ortho Goals: CARRYING/MOVING/HANDLING: Patient will be able to place items on a shelf overhead in 4 weeks CARRYING/MOVING/HANDLING: Patient will be able to lift and carry common household items without difficulty in 4 weeks SELF CARE: Patient will be able to complete ADL's including bathing, dressing, and hair care without difficulty in 4 weeks. IMPAIRMENT: Patient will demonstrate improved postural awareness in PT sessions to facilitate mechanical alignment and function in 3 weeks. IMPAIRMENT: Improve pain to <4/10 during prolonged standing/walking, lifting, carrying and reaching in 4 weeks IMPAIRMENT: Improve gross MMT of the Shoulder to at least 3+/5 in 4 weeks IMPAIRMENT: Improve AROM of Bilateral Shoulder Flexion and Abduction to at least 160 degrees in 4 weeks. OTHER: Patient will increase FOTO score from 40 / 41 to at least 60 to show MDC/MCII and expected functional outcome in 4 weeks. OTHER: Patient will be able to properly demonstrate independence with HEP in 1 week. MOBILITY: Patient will be able to ambulate for 1 hour in community and ambulate on uneven surfaces without difficulty in 4 weeks. MOBILITY: Patient will be able to ascend/descend stairs without difficulty in 4 weeks. IMPAIRMENT: Improve AROM of the Knee to 0-120 degrees in 4 weeks. Patient Education: Quality of movement with patient demonstrated understanding. Post-Treatment Pain Scale: 0 Assessment: Patient had an expected response to treatment. Skilled Intervention demonstrated by modifications of treatment per exercise log including increased load and safety interventions per exercise log. Progress towards goals as expected. Plan for Next Visit: Treatment Visit with focus on Continued UE and LE strengthening. TIFFANIE Genao No licensure found in state: [place] Treatment directed and supervised by supervising therapist: Rubio Glynn PTA. Rubio Glynn PTA [id number] documented in this encounter [facility] 10-27-2022 History of Present illness Narrative Subjective: Patient ID: Cynthia Cisneros is a 72 y.o. female. Chief Complaint Patient presents with 3 week f/u Cultures done HPI patient follows today for 3 weeks interval clinical reevaluation on treatment results of her left subacute maxillary sinusitis. Cultures collected on the last visit revealed fusiform bacteria but no other I aerobic/anaerobic cultures and no sensitivity. Patient was continued on Bactroban instillation and arranged for nasal neb, which she had purchased on her own and is requesting to modulate her management and continue Bactroban ointment instillation with request for prescription for budesonide 0.25 mg / 2 mL to be added in the vials, instead of pharmacy offered formulary. Briefly, patient had sinus surgery [address] Watters with improvement of her symptoms, however continued to experience this greenish nasal drainage on the posterior pharyngeal wall creating drying scabs, discomfort and pressure in the left ear, excessive postnasal drip with necessity for throat clearing and cough despite of multiple courses of antibiotics under supervision and following the recommendations of different ENT specialist in the area. She states that do not want to give up and requesting my evaluation for potential management. At some point patient had cultures which were reported as rare Staphylococcus. She has multiple antibiotics allergies but had noticed that collateral treatment of other like hip infection with vancomycin was helpful on her sinonasal discharge. Patient denies any current dental problems in the maxilla but had some teeth extracted with some oral reconstructive surgery last year. The following portions of the patient's history were reviewed and updated as appropriate: allergies, current medications, past family history, past medical history, past social history, past surgical history and problem list. Review of Systems Constitutional: Negative. Negative for activity change, appetite change, chills, diaphoresis, fatigue, fever and unexpected weight change. HENT: Positive for ear pain, hearing loss, postnasal drip, rhinorrhea and sinus pressure. Negative for congestion, dental problem, drooling, ear discharge, facial swelling, mouth sores, nosebleeds, sinus pain, sneezing, sore throat, tinnitus, trouble swallowing and voice change. Eyes: Negative. Negative for photophobia, pain, discharge, redness, itching and visual disturbance. Respiratory: Negative. Negative for apnea, cough, choking, chest tightness, shortness of breath, wheezing and stridor. Cardiovascular: Negative. Negative for chest pain, palpitations and leg swelling. Gastrointestinal: Negative. Negative for abdominal distention, abdominal pain, anal bleeding, blood in stool, constipation, diarrhea, nausea, rectal pain and vomiting. Endocrine: Negative for cold intolerance and heat intolerance. Genitourinary: Negative. Musculoskeletal: Negative. Negative for arthralgias, gait problem, neck pain and neck stiffness. Skin: Negative. Negative for color change, pallor, rash and wound. Allergic/Immunologic: Negative for environmental allergies, food allergies and immunocompromised state. Neurological: Negative for dizziness, tremors, seizures, syncope, facial asymmetry, speech difficulty, weakness, light-headedness, numbness and headaches. Hematological: Negative for adenopathy. Does not bruise/bleed easily. Psychiatric/Behavioral: Negative. Objective: BP (!) 174/91 Pulse 77 Ht 5' 4 Wt 74 kg (163 lb 3.2 oz) SpO2 98% BMI 28.01 kg/m Physical Exam Constitutional: General: She is not in acute distress. Appearance: She is well-developed. She is not diaphoretic. HENT: Head: Normocephalic and atraumatic. No abrasion, contusion or laceration. Jaw: No trismus. Right Ear: Tympanic membrane, ear canal and external ear normal. No decreased hearing noted. No drainage, swelling or tenderness. No middle ear effusion. No mastoid tenderness. Tympanic membrane is not perforated. Tympanic membrane has normal mobility. Left Ear: Tympanic membrane and external ear normal. No decreased hearing noted. No drainage, swelling or tenderness. No middle ear effusion. No mastoid tenderness. Tympanic membrane is not perforated. Tympanic membrane has normal mobility. Nose: Septal deviation and rhinorrhea present. No nasal deformity, laceration or mucosal edema. Right Sinus: No maxillary sinus tenderness or frontal sinus tenderness. Left Sinus: Maxillary sinus tenderness present. No frontal sinus tenderness. Mouth/Throat: Mouth: No lacerations or oral lesions. Dentition: Normal dentition. Does not have dentures. No dental caries or dental abscesses. Pharynx: Uvula midline. No oropharyngeal exudate, posterior oropharyngeal erythema or uvula swelling. Tonsils: No tonsillar abscesses. Eyes: General: No scleral icterus. Right eye: No discharge. Left eye: No discharge. Conjunctiva/sclera: Conjunctivae normal. Pupils: Pupils are equal, round, and reactive to light. Neck: Thyroid: No thyroid mass or thyromegaly. Vascular: No JVD. Trachea: Trachea and phonation normal. No tracheal deviation. Cardiovascular: Rate and Rhythm: Normal rate and regular rhythm. Heart sounds: Normal heart sounds. Pulmonary: Effort: No respiratory distress. Breath sounds: No stridor. No wheezing or rales. Chest: Chest wall: No tenderness. Abdominal: General: Bowel sounds are normal. There is no distension. Palpations: Abdomen is soft. Tenderness: There is no abdominal tenderness. Musculoskeletal: General: Normal range of motion. Cervical back: Normal range of motion and neck supple. Lymphadenopathy: Cervical: No cervical adenopathy. Right cervical: No superficial, deep or posterior cervical adenopathy. Left cervical: No superficial, deep or posterior cervical adenopathy. Skin: General: Skin is warm and dry. Findings: No erythema or rash. Neurological: Mental Status: She is alert and oriented to person, place, and time. Cranial Nerves: No cranial nerve deficit. Coordination: Coordination normal. Psychiatric: Behavior: Behavior normal. Thought Content: Thought content normal. Judgment: Judgment normal. Assessment/Plan: Nasal endoscopy today revealed no free pus in the left maxillary cavity or both common sinonasal cavities. I had suggested to continue current management without changes and help patient by providing prescription for budesonide 0.25 mg / 2 mL vials, to be added to the Bactroban ointment, already arranged and administered via your nasal neb. I had offered my reevaluation in 3 months. Portions of this chart were created using [employer] voice recognition software. Occasional wrong-word or sound-like substitutions may have occurred due to inherent limitations of the voice recognition software. Please read the chart carefully and recognize, using context, where the substitutions have occurred. 1. Subacute maxillary sinusitis No orders of the defined types were placed in this encounter. documented in this encounter [facility] 10-23-2022 History of Present illness Narrative [facility] DAILY TREATMENT NOTE Today's Date 10/23/2022 Patient Name: Cynthia Cisneros Date of : 1950 Current Visit #: 6 Authorized Visits: 199 Case Name: Bilateral Shoulder and Bilateral Knee Pain History: Pre-Treatment Pain Scale: 1 Symptoms: stabilized Functional Diagnosis: 1. Primary osteoarthritis of both knees 2. Impingement syndrome of both shoulders Clinical Information: Subjective: Pt reports low pain coming in today and min soreness after LV Objective Progressed resistance on scifit Reviewed stress recovery adaptation cycle and normal timeline of soreness from ex progressions Treatments: Physical Therapy Exercise Log - 10/23/22 1300 OTHER Precautions/Contraindications Supervising PT: Lalo Notes visit 5 [id number] Therapeutic Exercise ([id number]) Intervention sci fit 5' lv 4 Parameters standing calf and HS stretches 3x20 Intervention lunge into BOSU x20 alt Parameters lateral step ups 6 x10 Intervention hip flex and ext on x10 bilat. L3 (yellow miniband on 10/23) Parameters Shuttle squats - x15 37# NT Intervention standing rows L6 x20 ext lv 5 x15 Parameters IR/ER L3 x20 bilat. Intervention cane ext behind back and up the back 2x10 each Parameters Wall Ex's (lateral, vertical, press) yellow miniband x 1 min each PT Treatment Times Therex Total Time 45 Direct Treatment Time 45 Total Treatment Time 45 Goals: Physical Therapy Ortho Goals: CARRYING/MOVING/HANDLING: Patient will be able to place items on a shelf overhead in 4 weeks CARRYING/MOVING/HANDLING: Patient will be able to lift and carry common household items without difficulty in 4 weeks SELF CARE: Patient will be able to complete ADL's including bathing, dressing, and hair care without difficulty in 4 weeks. IMPAIRMENT: Patient will demonstrate improved postural awareness in PT sessions to facilitate mechanical alignment and function in 3 weeks. IMPAIRMENT: Improve pain to <4/10 during prolonged standing/walking, lifting, carrying and reaching in 4 weeks IMPAIRMENT: Improve gross MMT of the Shoulder to at least 3+/5 in 4 weeks IMPAIRMENT: Improve AROM of Bilateral Shoulder Flexion and Abduction to at least 160 degrees in 4 weeks. OTHER: Patient will increase FOTO score from 40 / 41 to at least 60 to show MDC/MCII and expected functional outcome in 4 weeks. OTHER: Patient will be able to properly demonstrate independence with HEP in 1 week. MOBILITY: Patient will be able to ambulate for 1 hour in community and ambulate on uneven surfaces without difficulty in 4 weeks. MOBILITY: Patient will be able to ascend/descend stairs without difficulty in 4 weeks. IMPAIRMENT: Improve AROM of the Knee to 0-120 degrees in 4 weeks. Patient Education: Verbal HEP with patient verbalized understanding. Post-Treatment Pain Scale: 1 Assessment: Patient had an expected response to treatment. Skilled Intervention demonstrated by modifications of treatment per exercise log including assessment of patient's response and safety interventions per exercise log. Progress towards goals as expected. Plan for Next Visit: Treatment Visit with focus on progressing as tolerated Juan Lee PTA STATE LICENSE, [id number] documented in this encounter [facility] 10-21-2022 History of Present illness Narrative [facility] DAILY TREATMENT NOTE Today's Date 10/21/2022 Patient Name: Cynthia Cisneros Date of : 1950 Current Visit #: 5 Authorized Visits: 199 Case Name: Bilateral Shoulder and Bilateral Knee Pain History: Pre-Treatment Pain Scale: 0 Symptoms: stabilized Functional Diagnosis: 1. Primary osteoarthritis of both knees 2. Impingement syndrome of both shoulders Clinical Information: Subjective: Pt reports ankle was hurting after last session, possible from standing on airex. Pt stated increased pain after walking. Objective Treatments: Physical Therapy Exercise Log - 10/21/22 1303 OTHER Precautions/Contraindications Supervising PT: Lalo Notes visit 4: 1:03 -1:43 Therapeutic Exercise ([id number]) Intervention sci fit 5' lv 3 Parameters standing calf and HS stretches 3x20 Intervention lunge into BOSU x20 alt Parameters lateral step ups 6 x10 Intervention hip flex and ext on x10 bilat. L3 Parameters Shuttle squats - x15 37# Intervention standing rows L5 ext lv 3 3x10 - Parameters IR/ER walkouts L3 x5 bilat. Intervention cane ext behind back and up the back 2x10 each Parameters RTB wall walks x4 laps up, lat PT Treatment Times Therex Total Time 40 Direct Treatment Time 40 Total Treatment Time 40 Goals: Physical Therapy Ortho Goals: CARRYING/MOVING/HANDLING: Patient will be able to place items on a shelf overhead in 4 weeks CARRYING/MOVING/HANDLING: Patient will be able to lift and carry common household items without difficulty in 4 weeks SELF CARE: Patient will be able to complete ADL's including bathing, dressing, and hair care without difficulty in 4 weeks. IMPAIRMENT: Patient will demonstrate improved postural awareness in PT sessions to facilitate mechanical alignment and function in 3 weeks. IMPAIRMENT: Improve pain to <4/10 during prolonged standing/walking, lifting, carrying and reaching in 4 weeks IMPAIRMENT: Improve gross MMT of the Shoulder to at least 3+/5 in 4 weeks IMPAIRMENT: Improve AROM of Bilateral Shoulder Flexion and Abduction to at least 160 degrees in 4 weeks. OTHER: Patient will increase FOTO score from 40 / 41 to at least 60 to show MDC/MCII and expected functional outcome in 4 weeks. OTHER: Patient will be able to properly demonstrate independence with HEP in 1 week. MOBILITY: Patient will be able to ambulate for 1 hour in community and ambulate on uneven surfaces without difficulty in 4 weeks. MOBILITY: Patient will be able to ascend/descend stairs without difficulty in 4 weeks. IMPAIRMENT: Improve AROM of the Knee to 0-120 degrees in 4 weeks. Patient Education: Quality of movement with patient demonstrated understanding. Post-Treatment Pain Scale: 0 Assessment: Patient had an expected response to treatment. Skilled Intervention demonstrated by modifications of treatment per exercise log including increased load and safety interventions per exercise log. Progress towards goals as expected. Plan for Next Visit: Treatment Visit with focus on strengthening as tolerated Rubio Glynn PTA STATE LICENSE, [id number] documented in this encounter [facility] 10-20-2022 History of Present illness Narrative Images from the original note were not included. [facility] [address] [place] [address]. [place] [address] Name: Cynthia Cisneros : 1950 Date: 10/20/22 Hearing Aid Contact Note: Ms. Cisneros returned today for hearing aid adjustment. She reports having sensory overload with her hearing aids set at 100% and she has not been able to wear her hearing aids all day. She requests to have them back at 90% like before. Otherwise, Ms. Cisneros reports satisfaction with her hearing aids and improved retention. Connected hearing aids to software, datalogging revealed 7 hours a day of hearing aid use. Decreased target gain from 100% to 90%, did not make any other adjustments per pt request. to return as needed for hearing aid care or as scheduled for routine hearing and/or hearing aid needs. Ms. Cisneros expressed understanding of and agreement with the above. Electronically Signed by: Christine Sorensen, CCC-A 10/20/22 1:14 PM documented in this encounter [facility] 10-14-2022 History of Present illness Narrative [facility] DAILY TREATMENT NOTE Today's Date 10/14/2022 Patient Name: Cynthia Cisneros Date of : 1950 Current Visit #: 4 Authorized Visits: 199 Case Name: Bilateral Shoulder and Bilateral Knee Pain History: Pre-Treatment Pain Scale: 1 Symptoms: about the same Functional Diagnosis: 1. Primary osteoarthritis of both knees 2. Impingement syndrome of both shoulders Clinical Information: Subjective: Pt states her right shoulder was pretty sore this morning but now both her shoulder and left knee are just achy. Objective Treatments: Physical Therapy Exercise Log - 10/14/22 1304 OTHER Precautions/Contraindications Supervising PT: Lalo Notes visit 3: 1:04 - 1:42 Therapeutic Exercise ([id number]) Intervention sci fit 5' lv 3 Parameters standing calf and HS stretches 3x20 Intervention lunge into BOSU x20 alt Parameters lateral step ups 6 x10 Intervention hip abd and ext on airex x10 bilat. Parameters -- Intervention standing rows/ext lv 3 x20 - progress to lvl 5 NV Parameters IR/ER walkouts L3 x5 bilat. Intervention cane ext behind back and up the back 2x10 each Parameters RTB wall walks x3 laps PT Treatment Times Therex Total Time 38 Direct Treatment Time 38 Total Treatment Time 38 Goals: Physical Therapy Ortho Goals: CARRYING/MOVING/HANDLING: Patient will be able to place items on a shelf overhead in 4 weeks CARRYING/MOVING/HANDLING: Patient will be able to lift and carry common household items without difficulty in 4 weeks SELF CARE: Patient will be able to complete ADL's including bathing, dressing, and hair care without difficulty in 4 weeks. IMPAIRMENT: Patient will demonstrate improved postural awareness in PT sessions to facilitate mechanical alignment and function in 3 weeks. IMPAIRMENT: Improve pain to <4/10 during prolonged standing/walking, lifting, carrying and reaching in 4 weeks IMPAIRMENT: Improve gross MMT of the Shoulder to at least 3+/5 in 4 weeks IMPAIRMENT: Improve AROM of Bilateral Shoulder Flexion and Abduction to at least 160 degrees in 4 weeks. OTHER: Patient will increase FOTO score from 40 / 41 to at least 60 to show MDC/MCII and expected functional outcome in 4 weeks. OTHER: Patient will be able to properly demonstrate independence with HEP in 1 week. MOBILITY: Patient will be able to ambulate for 1 hour in community and ambulate on uneven surfaces without difficulty in 4 weeks. MOBILITY: Patient will be able to ascend/descend stairs without difficulty in 4 weeks. IMPAIRMENT: Improve AROM of the Knee to 0-120 degrees in 4 weeks. Patient Education: Quality of movement, Verbal HEP, and Diagnosis and recovery specific education with patient verbalized understanding. Post-Treatment Pain Scale: 1 Assessment: Patient had an expected response to treatment. Skilled Intervention demonstrated by modifications of treatment per exercise log including increased load, increased intensity, and increased mobility and safety interventions per exercise log. Progress towards goals as expected. Plan for Next Visit: Treatment Visit with focus on strength and stability as tolerated Jonathan Solis PT State License, [id number] documented in this encounter [facility] 10-10-2022 History of Present illness Narrative [facility] DAILY TREATMENT NOTE Today's Date 10/10/2022 Patient Name: Cynthia Cisneros Date of : 1950 Current Visit #: 3 Authorized Visits: 199 Case Name: Bilateral Shoulder and Bilateral Knee Pain History: Pre-Treatment Pain Scale: 1 Symptoms: gradually improved Functional Diagnosis: 1. Primary osteoarthritis of both knees 2. Impingement syndrome of both shoulders Clinical Information: Subjective: She is doing her HEP and feeling somewhat better Objective no sx increase with PRE's or stretches Treatments: Physical Therapy Exercise Log - 10/10/22 1359 OTHER Precautions/Contraindications Supervising PT: Lalo Notes visit 2: 1:00-1:45 Therapeutic Exercise ([id number]) Intervention reviewed PT POC and goals with pt verbalizing agreement - provide HEP handouts Parameters sci fit 6' lv 1 Intervention lunge into BOSU x10 Parameters lateral step ups 6 x10 Intervention lateral side steps 15' x2 Parameters standing rows/ext lv 3 x20 Intervention supine hip abd/add GTB x20 Parameters cane stretches overhead and horizontal x10 Intervention seated ER YTB x10 PT Treatment Times Therex Total Time 45 Direct Treatment Time 45 Total Treatment Time 45 Goals: Physical Therapy Ortho Goals: CARRYING/MOVING/HANDLING: Patient will be able to place items on a shelf overhead in 4 weeks CARRYING/MOVING/HANDLING: Patient will be able to lift and carry common household items without difficulty in 4 weeks SELF CARE: Patient will be able to complete ADL's including bathing, dressing, and hair care without difficulty in 4 weeks. IMPAIRMENT: Patient will demonstrate improved postural awareness in PT sessions to facilitate mechanical alignment and function in 3 weeks. IMPAIRMENT: Improve pain to <4/10 during prolonged standing/walking, lifting, carrying and reaching in 4 weeks IMPAIRMENT: Improve gross MMT of the Shoulder to at least 3+/5 in 4 weeks IMPAIRMENT: Improve AROM of Bilateral Shoulder Flexion and Abduction to at least 160 degrees in 4 weeks. OTHER: Patient will increase FOTO score from 40 / 41 to at least 60 to show MDC/MCII and expected functional outcome in 4 weeks. OTHER: Patient will be able to properly demonstrate independence with HEP in 1 week. MOBILITY: Patient will be able to ambulate for 1 hour in community and ambulate on uneven surfaces without difficulty in 4 weeks. MOBILITY: Patient will be able to ascend/descend stairs without difficulty in 4 weeks. IMPAIRMENT: Improve AROM of the Knee to 0-120 degrees in 4 weeks. Patient Education: Quality of movement with patient demonstrated understanding. Post-Treatment Pain Scale: 1 Assessment: Patient had an expected response to treatment. Skilled Intervention demonstrated by modifications of treatment per exercise log including increased load and safety interventions per exercise log. Progress towards goals as expected. Plan for Next Visit: Treatment Visit with focus on strengthening Kely Wolf PTA STATE LICENSE, [id number] documented in this encounter [facility] 10-07-2022 History of Present illness Narrative [facility] DA[facility] TREATMENT NOTE Today's Date 10/07/2022 Patient Name: Cynthia Cisneros Date of : 1950 Current Visit #: 2 Authorized Visits: [id number] Case Name: Bilateral Shoulder and Bilateral Knee Pain History: Pre-Treatment Pain Scale: 3 Symptoms: stabilized Functional Diagnosis: 1. Primary osteoarthritis of both knees 2. Impingement syndrome of both shoulders Clinical Information: Subjective: she has tried some stretches at home but they are painful. Objective good tolerance to stretches and PRE's with decreased sx's following Treatments: Physical Therapy Exercise Log - 10/07/22 2992 OTHER Precautions/Contraindications Supervising PT: Lalo Notes visit 1: 1:45-2:30 Therapeutic Exercise (26554) Intervention reviewed PT POC and goals with pt verbalizing agreement - provide HEP handouts Parameters sci fit 6' lv 1 Intervention lunge into BOSU x10 Parameters lateral step ups 6 x10 Intervention lateral side steps 15' x2 Parameters standing rows/ext lv 3 x20 Intervention supine hip abd/add GTB x20 Parameters cane stretches overhead and horizontal x10 Intervention seated ER YTB x10 PT Treatment Times Therex Total Time 40 Direct Treatment Time 40 Total Treatment Time 40 Goals: Physical Therapy Ortho Goals: CARRYING/MOVING/HANDLING: Patient will be able to place items on a shelf overhead in 4 weeks CARRYING/MOVING/HANDLING: Patient will be able to lift and carry common household items without difficulty in 4 weeks SELF CARE: Patient will be able to complete ADL's including bathing, dressing, and hair care without difficulty in 4 weeks. IMPAIRMENT: Patient will demonstrate improved postural awareness in PT sessions to facilitate mechanical alignment and function in 3 weeks. IMPAIRMENT: Improve pain to <4/10 during prolonged standing/walking, lifting, carrying and reaching in 4 weeks IMPAIRMENT: Improve gross MMT of the Shoulder to at least 3+/5 in 4 weeks IMPAIRMENT: Improve AROM of Bilateral Shoulder Flexion and Abduction to at least 160 degrees in 4 weeks. OTHER: Patient will increase FOTO score from 40 / 41 to at least 60 to show MDC/MCII and expected functional outcome in 4 weeks. OTHER: Patient will be able to properly demonstrate independence with HEP in 1 week. MOBILITY: Patient will be able to ambulate for 1 hour in community and ambulate on uneven surfaces without difficulty in 4 weeks. MOBILITY: Patient will be able to ascend/descend stairs without difficulty in 4 weeks. IMPAIRMENT: Improve AROM of the Knee to 0-120 degrees in 4 weeks. Patient Education: Quality of movement with patient demonstrated understanding. Post-Treatment Pain Scale: 2 Assessment: Patient had an expected response to treatment. Skilled Intervention demonstrated by modifications of treatment per exercise log including increased load and safety interventions per exercise log. Progress towards goals as expected. Plan for Next Visit: Treatment Visit with focus on strengthening Kely Wolf PTA STATE LICENSE, [id number] documented in this encounter [facility] 10-03-2022 History of Present illness Narrative Images from the original note were not included. Subjective: Patient ID: Cynthia Cisneros is a 72 y.o. female. Chief Complaint Patient presents with New Patient 2nd opinion - Chronic maxillary sinusitis, Chronic ethmoidal sinusitis, Unspecified mycosis (CT Sinus done) HPI kind referral for my evaluation to obtain second or even third opinion about sinus problem. Reportedly, patient had sinus surgery [address] Watters with improvement of her symptoms, however continued to experience this greenish nasal drainage on the posterior pharyngeal wall creating drying scabs, discomfort and pressure in the left ear, excessive postnasal drip with necessity for throat clearing and cough despite of multiple courses of antibiotics under supervision and following the recommendations of different ENT specialist in the area. She states that do not want to give up and requesting my evaluation for potential management. At some point patient had cultures which were reported as rare Staphylococcus. She has multiple antibiotics allergies but had noticed that collateral treatment of other like hip infection with vancomycin was helpful on her sinonasal discharge. Patient denies any current dental problems in the maxilla but had some teeth extracted with some oral reconstructive surgery last year. The following portions of the patient's history were reviewed and updated as appropriate: allergies, current medications, past family history, past medical history, past social history, past surgical history and problem list. Review of Systems Constitutional: Negative. Negative for activity change, appetite change, chills, diaphoresis, fatigue, fever and unexpected weight change. HENT: Positive for ear pain, hearing loss, postnasal drip, rhinorrhea and sinus pressure. Negative for congestion, dental problem, drooling, ear discharge, facial swelling, mouth sores, nosebleeds, sinus pain, sneezing, sore throat, tinnitus, trouble swallowing and voice change. Eyes: Negative. Negative for photophobia, pain, discharge, redness, itching and visual disturbance. Respiratory: Negative. Negative for apnea, cough, choking, chest tightness, shortness of breath, wheezing and stridor. Cardiovascular: Negative. Negative for chest pain, palpitations and leg swelling. Gastrointestinal: Negative. Negative for abdominal distention, abdominal pain, anal bleeding, blood in stool, constipation, diarrhea, nausea, rectal pain and vomiting. Endocrine: Negative for cold intolerance and heat intolerance. Genitourinary: Negative. Musculoskeletal: Negative. Negative for arthralgias, gait problem, neck pain and neck stiffness. Skin: Negative. Negative for color change, pallor, rash and wound. Allergic/Immunologic: Negative for environmental allergies, food allergies and immunocompromised state. Neurological: Negative for dizziness, tremors, seizures, syncope, facial asymmetry, speech difficulty, weakness, light-headedness, numbness and headaches. Hematological: Negative for adenopathy. Does not bruise/bleed easily. Psychiatric/Behavioral: Negative. Objective: BP (!) 182/104 (BP Location: Right arm, Patient Position: Sitting, BP Cuff Size: X-large Adult) Pulse 73 Ht 5' 4 Wt 72.6 kg (160 lb) SpO2 95% BMI 27.46 kg/m Physical Exam Constitutional: General: She is not in acute distress. Appearance: She is well-developed. She is not diaphoretic. HENT: Head: Normocephalic and atraumatic. No abrasion, contusion or laceration. Jaw: No trismus. Right Ear: Tympanic membrane, ear canal and external ear normal. No decreased hearing noted. No drainage, swelling or tenderness. No middle ear effusion. No mastoid tenderness. Tympanic membrane is not perforated. Tympanic membrane has normal mobility. Left Ear: Tympanic membrane and external ear normal. No decreased hearing noted. No drainage, swelling or tenderness. No middle ear effusion. No mastoid tenderness. Tympanic membrane is not perforated. Tympanic membrane has normal mobility. Nose: Septal deviation and rhinorrhea present. No nasal deformity, laceration or mucosal edema. Right Sinus: No maxillary sinus tenderness or frontal sinus tenderness. Left Sinus: Maxillary sinus tenderness present. No frontal sinus tenderness. Mouth/Throat: Mouth: No lacerations or oral lesions. Dentition: Normal dentition. Does not have dentures. No dental caries or dental abscesses. Pharynx: Uvula midline. No oropharyngeal exudate, posterior oropharyngeal erythema or uvula swelling. Tonsils: No tonsillar abscesses. Eyes: General: No scleral icterus. Right eye: No discharge. Left eye: No discharge. Conjunctiva/sclera: Conjunctivae normal. Pupils: Pupils are equal, round, and reactive to light. Neck: Thyroid: No thyroid mass or thyromegaly. Vascular: No JVD. Trachea: Trachea and phonation normal. No tracheal deviation. Cardiovascular: Rate and Rhythm: Normal rate and regular rhythm. Heart sounds: Normal heart sounds. Pulmonary: Effort: No respiratory distress. Breath sounds: No stridor. No wheezing or rales. Chest: Chest wall: No tenderness. Abdominal: General: Bowel sounds are normal. There is no distension. Palpations: Abdomen is soft. Tenderness: There is no abdominal tenderness. Musculoskeletal: General: Normal range of motion. Cervical back: Normal range of motion and neck supple. Lymphadenopathy: Cervical: No cervical adenopathy. Right cervical: No superficial, deep or posterior cervical adenopathy. Left cervical: No superficial, deep or posterior cervical adenopathy. Skin: General: Skin is warm and dry. Findings: No erythema or rash. Neurological: Mental Status: She is alert and oriented to person, place, and time. Cranial Nerves: No cranial nerve deficit. Coordination: Coordination normal. Psychiatric: Behavior: Behavior normal. Thought Content: Thought content normal. Judgment: Judgment normal. Procedure: Nasal endoscopy with debridement of left maxillary cavity and cultures collection, CPT code 08829 Preop diagnosis: Left maxillary sinusitis Postop diagnosis: Left maxillary sinusitis with free pus. Procedure detail: The patient's bilateral nares were anesthetized w 4% topical lidocaine w afrin spray. The 0 degree rigid endoscope was advanced into the bilateral nares to the nasopharynx and then retracted under visualization. The patient tolerated this well and there were no complications. Findings are listed below. Findings: The nasal mucosa was pink and moist. Septum was intact and slightly deviated to the left side but I was able to pass the 0 degree endoscope into the depth of the maxillary sinus cavity and photo documented green foamy pus on the bottom of the sinus. This was collected in sterile fashion and sent for aerobic/anaerobic cultures and sensitivities. Debridement of the remaining of the cavity provided using endonasal suction device. Assessment/Plan: Persistent left chronic maxillary sinusitis, status post fairly large antrostomy with free pus on the bottom of the sinus, no odontogenic sources. Debridement and cultures were collected. Sinonasal hygiene measures were discussed with patient. Nasal neb treatment with mupirocin, mupirocin was arranged. Follow-up in 3 weeks with endoscopic evaluation and debridement as needed is scheduled all patient's questions were answered appropriately to the level of her satisfaction. She had expressed comprehensive understanding and was in agreement with suggested plan. I had to spend some extra time for medical documentation review, explaining to the patient findings, performing debridement of the maxillary sinus was cultures collection and discussion of the future treatment plan. Portions of this chart were created using [employer] voice recognition software. Occasional wrong-word or sound-like substitutions may have occurred due to inherent limitations of the voice recognition software. Please read the chart carefully and recognize, using context, where the substitutions have occurred. 1. Chronic maxillary sinusitis Ambulatory referral to ENT Anaerobic culture Upper Respiratory Aerobic Culture 2. Chronic ethmoidal sinusitis Ambulatory referral to ENT 3. Unspecified mycosis Ambulatory referral to ENT 4. Chronic sinusitis, unspecified location Ambulatory referral to ENT No orders of the defined types were placed in this encounter. documented in this encounter [facility] 10-02-2022 Note Addended by: NISHA SILVA on: 10/02/2022 09:38 AM Modules accepted: Orders [facility] 10-02-2022 Miscellaneous Notes Addended by: NISHA STILL on: 10/02/2022 09:38 AM Modules accepted: Orders documented in this encounter [facility] 10-01-2022 History of Present illness Narrative Subjective: Patient ID: Cynthia Cisneros is a 72 y.o. female. Chief Complaint Patient presents with New Patient 2nd opinion - Chronic maxillary sinusitis, Chronic ethmoidal sinusitis, Unspecified mycosis (CT Sinus done) HPI kind referral for my evaluation to obtain second or even third opinion about sinus problem. Reportedly, patient had sinus surgery [address] Watters with improvement of her symptoms, however continued to experience this greenish nasal drainage on the posterior pharyngeal wall creating drying scabs, discomfort and pressure in the left ear, excessive postnasal drip with necessity for throat clearing and cough despite of multiple courses of antibiotics under supervision and following the recommendations of different ENT specialist in the area. She states that do not want to give up and requesting my evaluation for potential management. At some point patient had cultures which were reported as rare Staphylococcus. She has multiple antibiotics allergies but had noticed that collateral treatment of other like hip infection with vancomycin was helpful on her sinonasal discharge. Patient denies any current dental problems in the maxilla but had some teeth extracted with some oral reconstructive surgery last year. The following portions of the patient's history were reviewed and updated as appropriate: allergies, current medications, past family history, past medical history, past social history, past surgical history and problem list. Review of Systems Constitutional: Negative. Negative for activity change, appetite change, chills, diaphoresis, fatigue, fever and unexpected weight change. HENT: Positive for ear pain, hearing loss, postnasal drip, rhinorrhea and sinus pressure. Negative for congestion, dental problem, drooling, ear discharge, facial swelling, mouth sores, nosebleeds, sinus pain, sneezing, sore throat, tinnitus, trouble swallowing and voice change. Eyes: Negative. Negative for photophobia, pain, discharge, redness, itching and visual disturbance. Respiratory: Negative. Negative for apnea, cough, choking, chest tightness, shortness of breath, wheezing and stridor. Cardiovascular: Negative. Negative for chest pain, palpitations and leg swelling. Gastrointestinal: Negative. Negative for abdominal distention, abdominal pain, anal bleeding, blood in stool, constipation, diarrhea, nausea, rectal pain and vomiting. Endocrine: Negative for cold intolerance and heat intolerance. Genitourinary: Negative. Musculoskeletal: Negative. Negative for arthralgias, gait problem, neck pain and neck stiffness. Skin: Negative. Negative for color change, pallor, rash and wound. Allergic/Immunologic: Negative for environmental allergies, food allergies and immunocompromised state. Neurological: Negative for dizziness, tremors, seizures, syncope, facial asymmetry, speech difficulty, weakness, light-headedness, numbness and headaches. Hematological: Negative for adenopathy. Does not bruise/bleed easily. Psychiatric/Behavioral: Negative. Objective: BP (!) 182/104 (BP Location: Right arm, Patient Position: Sitting, BP Cuff Size: X-large Adult) Pulse 73 Ht 5' 4 Wt 72.6 kg (160 lb) SpO2 95% BMI 27.46 kg/m Physical Exam Constitutional: General: She is not in acute distress. Appearance: She is well-developed. She is not diaphoretic. HENT: Head: Normocephalic and atraumatic. No abrasion, contusion or laceration. Jaw: No trismus. Right Ear: Tympanic membrane, ear canal and external ear normal. No decreased hearing noted. No drainage, swelling or tenderness. No middle ear effusion. No mastoid tenderness. Tympanic membrane is not perforated. Tympanic membrane has normal mobility. Left Ear: Tympanic membrane and external ear normal. No decreased hearing noted. No drainage, swelling or tenderness. No middle ear effusion. No mastoid tenderness. Tympanic membrane is not perforated. Tympanic membrane has normal mobility. Nose: Septal deviation and rhinorrhea present. No nasal deformity, laceration or mucosal edema. Right Sinus: No maxillary sinus tenderness or frontal sinus tenderness. Left Sinus: Maxillary sinus tenderness present. No frontal sinus tenderness. Mouth/Throat: Mouth: No lacerations or oral lesions. Dentition: Normal dentition. Does not have dentures. No dental caries or dental abscesses. Pharynx: Uvula midline. No oropharyngeal exudate, posterior oropharyngeal erythema or uvula swelling. Tonsils: No tonsillar abscesses. Eyes: General: No scleral icterus. Right eye: No discharge. Left eye: No discharge. Conjunctiva/sclera: Conjunctivae normal. Pupils: Pupils are equal, round, and reactive to light. Neck: Thyroid: No thyroid mass or thyromegaly. Vascular: No JVD. Trachea: Trachea and phonation normal. No tracheal deviation. Cardiovascular: Rate and Rhythm: Normal rate and regular rhythm. Heart sounds: Normal heart sounds. Pulmonary: Effort: No respiratory distress. Breath sounds: No stridor. No wheezing or rales. Chest: Chest wall: No tenderness. Abdominal: General: Bowel sounds are normal. There is no distension. Palpations: Abdomen is soft. Tenderness: There is no abdominal tenderness. Musculoskeletal: General: Normal range of motion. Cervical back: Normal range of motion and neck supple. Lymphadenopathy: Cervical: No cervical adenopathy. Right cervical: No superficial, deep or posterior cervical adenopathy. Left cervical: No superficial, deep or posterior cervical adenopathy. Skin: General: Skin is warm and dry. Findings: No erythema or rash. Neurological: Mental Status: She is alert and oriented to person, place, and time. Cranial Nerves: No cranial nerve deficit. Coordination: Coordination normal. Psychiatric: Behavior: Behavior normal. Thought Content: Thought content normal. Judgment: Judgment normal. Procedure: Nasal endoscopy with debridement of left maxillary cavity and cultures collection, CPT code 09090 Preop diagnosis: Left maxillary sinusitis Postop diagnosis: Left maxillary sinusitis with free pus. Procedure detail: The patient's bilateral nares were anesthetized w 4% topical lidocaine w afrin spray. The 0 degree rigid endoscope was advanced into the bilateral nares to the nasopharynx and then retracted under visualization. The patient tolerated this well and there were no complications. Findings are listed below. Findings: The nasal mucosa was pink and moist. Septum was intact and slightly deviated to the left side but I was able to pass the 0 degree endoscope into the depth of the maxillary sinus cavity and photo documented green foamy pus on the bottom of the sinus. This was collected in sterile fashion and sent for aerobic/anaerobic cultures and sensitivities. Debridement of the remaining of the cavity provided using endonasal suction device. Assessment/Plan: Persistent left chronic maxillary sinusitis, status post fairly large antrostomy with free pus on the bottom of the sinus, no odontogenic sources. Debridement and cultures were collected. Sinonasal hygiene measures were discussed with patient. Nasal neb treatment with mupirocin, mupirocin was arranged. Follow-up in 3 weeks with endoscopic evaluation and debridement as needed is scheduled all patient's questions were answered appropriately to the level of her satisfaction. She had expressed comprehensive understanding and was in agreement with suggested plan. I had to spend some extra time for medical documentation review, explaining to the patient findings, performing debridement of the maxillary sinus was cultures collection and discussion of the future treatment plan. Portions of this chart were created using [employer] voice recognition software. Occasional wrong-word or sound-like substitutions may have occurred due to inherent limitations of the voice recognition software. Please read the chart carefully and recognize, using context, where the substitutions have occurred. 1. Chronic maxillary sinusitis Ambulatory referral to ENT Anaerobic culture Upper Respiratory Aerobic Culture 2. Chronic ethmoidal sinusitis Ambulatory referral to ENT 3. Unspecified mycosis Ambulatory referral to ENT 4. Chronic sinusitis, unspecified location Ambulatory referral to ENT No orders of the defined types were placed in this encounter. documented in this encounter [facility] 09-29-2022 History of Present illness Narrative Associated Order(s): LG Jt Injection/Arthrocentesis: L glenohumeral Post-Procedure Diagnose(s): Shoulder impingement syndrome, left [facility] [address] [facility] [address] [facility] [place] [id number] Chief Complaint Patient presents with Left Shoulder - Pain Cnythia Cisneros returns to the office today for left shoulder pain. I have seen this kaitlynn lady in the past for right shoulder pain and most recently for knee pain. She denies any specific injury to the left shoulder and she reports that the left shoulder actually was hurting when she was seen for the right shoulder but at that point the right one was worse. She reports of pain along the anterior portion of the shoulder. She does have some pain that radiates into the upper portion of her arm. She takes OTC pain medications as needed. She denies any numbness or tingling down the arm into the hand or the fingers. She does have some discomfort and pain with certain motions but denies any significant decrease in strength. She does have a history of a prior rotator cuff repair in that left shoulder. The patient's past medical history, surgical history, social history, family history, medications and allergies were reviewed with the patient today and are available in the chart for further review. Allergies Allergen Reactions Penicillin G Hives, Shortness Of Breath and Swelling Sulfa (Sulfonamide Antibiotics) Hives, Shortness Of Breath and Swelling Trazodone Hives and Shortness Of Breath Celecoxib Hives Difficulty breathing, swelling Levofloxacin GI Intolerance Nausea and vomiting. [place] Diarrhea Other reaction(s): Vomiting [place] Carbonate Other reaction(s): Vomiting Niacin Unknown Sulfites Cephalexin Rash Current Outpatient Medications: albuterol (PROVENTIL) 2.5 mg/0.5 mL Nebu, Take 0.5 mL (2.5 mg total) by nebulization every 4 to 6 hours as needed (shortness of breath, wheezes) DOS ., Disp: , Rfl: atenoloL (TENORMIN) 50 MG tablet, Take 1 (one) tablet (50 mg total) by mouth 2 (two) times a day ., Disp: , Rfl: Bevespi Aerosphere 9-4.8 mcg HFAA, inhale 2 puffs by mouth and INTO THE LUNGS every morning and every evening, Disp: , Rfl: budesonide (PULMICORT) 0.5 mg/2 mL nebulizer solution, , Disp: , Rfl: CALCITRATE 200 mg (950 mg) tablet, Take 200 mg by mouth 2 (two) times a day ., Disp: , Rfl: 0 denosumab (Prolia) 60 mg/mL Syrg, Inject 60 (sixty) mg under the skin once Q 6 months ., Disp: , Rfl: fluticasone (FLONASE) 50 mcg/actuation nasal spray, Instill 1 (one) spray into each nostril every morning DOS ., Disp: , Rfl: folic acid (FOLVITE) 1 MG tablet, Take 1 (one) tablet (1 mg total) by mouth daily ., Disp: , Rfl: furosemide (LASIX) 20 MG tablet, Take 1 (one) tablet (20 mg total) by mouth daily ., Disp: , Rfl: guaiFENesin (MUCINEX) 600 mg 12 hr tablet, Take 2 (two) tablets (1,200 mg total) by mouth 2 (two) times a day ., Disp: , Rfl: vlxjmomxnt-eqspqohsonfs-ccpvkc 1-1-4 % Gel, , Disp: , Rfl: levothyroxine (SYNTHROID, LEVOTHROID) 75 MCG tablet, Take 1 (one) tablet (75 mcg total) by mouth every morning DOS ., Disp: , Rfl: magnesium oxide (MAG-OX) 400 mg tablet, Take 2 (two) tablets (800 mg total) by mouth nightly ., Disp: , Rfl: metaxalone (SKELAXIN) 800 MG tablet, take 1 tablet by mouth three times a day if needed for muscle aches, Disp: , Rfl: mirtazapine (REMERON) 30 MG tablet, Take 1 (one) tablet (30 mg total) by mouth nightly Takes additional 7.5 ., Disp: , Rfl: mirtazapine (REMERON) 7.5 MG tablet, Take 1 (one) tablet (7.5 mg total) by mouth nightly ., Disp: , Rfl: Nucala 100 mg/mL AtIn, , Disp: , Rfl: omega-3 fatty acids-fish oil 360-1,200 mg cap, Take by mouth 3 (three) times a day ., Disp: , Rfl: pilocarpine (SALAGEN) 5 MG tablet, Take 1 (one) tablet (5 mg total) by mouth 3 (three) times a day ., Disp: , Rfl: sodium chloride-aloe vera ([place] Saline) Gel, Apply topically 2 (two) times a day Apply a pea sized amount to both nostrils at bedtime and in a.m. You can use it more often. ., Disp: 1 g, Rfl: 12 Therems-M 9 mg iron-400 mcg Tab, Take 1 (one) tablet by mouth daily ., Disp: , Rfl: VITAMIN D3 2,000 unit cap, Take 1 (one) capsule by mouth daily ., Disp: , Rfl: 0 Past Medical History: Diagnosis Date Anemia 03/2016 Anxiety 09/2002 General anxiety disorder Arrhythmia Arthritis Asthma Bruises easily Cancer (HCC) 06/1991 Cervical cancer Clostridium difficile infection 1999 COPD (chronic obstructive pulmonary disease) (HCC) Diagnosed several years ago Coronary artery disease Depression Diabetes mellitus (HCC) Borderline GERD (gastroesophageal reflux disease) 05/20/2016 Heart murmur Hypertension Hypothyroidism (acquired) 05/20/2016 Injury of back Squamous cell skin cancer Valvular disease MVP Past Surgical History: Procedure Laterality Date ARTHROPLASTY HIP ROBOTIC EUGENE Left 10/21/2021 Procedure: Left Total Hip Replacement Robotic; Surgeon: Jovanna Valencia MD; Location: Main OR; Service: Ortho-Robotics CARPAL TUNNEL RELEASE Left CATARACT EXTRACTION W/ INTRAOCULAR LENS IMPLANT Bilateral COLON SURGERY WITH ILEOSTOMY CORE DECOMPRESSION OF LEFT FEMEROL HEAD EYE SURGERY Bilateral LASER TO EYES FOR GLAUCOMA HANDS, DUPYTRENS, TRIGGER FINGER, CARPAL TUNNEL Right HYSTERECTOMY 1990 ILEOSTOMY REVERSAL INDEX FINGER SURGERY Right MUSCLE BIOPSY ROTATOR CUFF REPAIR Left SINUS SURGERY January 2018 and nik bullosa resection SINUS SURGERY 12/30/2019 balloon sinuplasty - Dr. Key TONSILLECTOMY TRIGGER FINGER RELEASE Right 03/24/2018 Procedure: RELEASE A1 TOD LEFT MIDDLE,RING, AND SMALL FINGERS WITH CORTISONE INJECTION RIGHT MIDDLE FINGER A1 TOD; Surgeon: Yonas Nguyen MD; Location: [facility] Main OR; Service: Hand Social History Socioeconomic History Marital status: Single Tobacco Use Smoking status: Former Packs/day: 0.25 Years: 35.00 Pack years: 8.75 Types: Cigarettes Quit date: 09/2021 Years since quittin.0 Smokeless tobacco: Never Tobacco comments: Cigarettes Substance and Sexual Activity Alcohol use: No Drug use: No ROS: Review of Systems Musculoskeletal: Positive for arthralgias and myalgias. Neurological: Negative for weakness. ORTHO: Left Shoulder Exam Tenderness The patient is experiencing tenderness in the biceps tendon. Range of Motion External rotation: 90 Forward flexion: 170 Internal rotation 90 degrees: 70 Muscle Strength The patient has normal left shoulder strength. Tests Cross arm: positive Impingement: positive Other Erythema: absent Scars: present Sensation: normal Pulse: present Comments: +obriens +Neer Imaging: Left shoulder: No acute fracture or dislocation. There is mild degenerative changes in the acromioclavicular joint space. Assessment/Plan: After examination and reviewed the patient x-ray images we discussed treatment options for the left shoulder. I did offer her a cortisone injection which she gladly accepted. I did this without complications and she tolerated this well. I am also starting her in a course of outpatient physical therapy for both shoulders. If there is no improvement after she has completed physical therapy I will see her back in the office. She does verbalize understanding and is in agreement the treatment plan. LG Jt Injection/Arthrocentesis: L glenohumeral Performed by: Charly Dias CNP Authorized by: Charly Dias CNP CPT 90396 - Large Joint Arthrocentesis: Consent given by: Patient Time out: Immediately prior to the procedure a time out was called Physician or proceduralist has discussed critical or nonroutine steps, procedure duration and anticipated blood loss: Yes Supporting Documentation: Indications: Pain and diagnostic evaluation Procedure Details: Location: Shoulder Site: L glenohumeral Prep: patient was prepped and draped in usual sterile fashion Needle size: 22 G Approach: Posterior Medications: 40 mg triamcinolone acetonide 40 mg/mL Anesthetic used: Lidocaine 1% Anesthetic amount (mL): 2 Patient tolerance: Patient tolerated the procedure well with no immediate complications documented in this encounter [facility] 09-24-2022 History of Present illness Narrative Images from the original note were not included. [facility] Physician [facility] [address] [place] [address] Name: Cynthia Cisneros : 1950 Date: 09/24/22 Hearing Aid Contact Note: Ms. Cisneros returned today for hearing aid troubleshooting. Ms. Cisneros reports her right hearing aid will no stay in her ear and she is frustrated with it and has not been using it as much because of this. Ms. Cisneros reports she thinks she needs a smaller dome. Visual inspection and listening check of the hearing aid(s) revealed the right hearing aid was not staying in Ms. Cisneros' ear as reported. Changed dome from medium open to small open dome. Retention was much improved, and showed Ms. Cisneros how deep to insert her domes. Connected hearing aids to software, datalogging revealed 11 hours a day of hearing aid use. Increased target gain from 90% to 100% with Ms. Cisneros' permission. Ms. Cisneros did not want additional changes today. Reviewed hearing aid charging, phone calls, and signal meanings. Ms. Cisneros to try the new changes and to return as needed for hearing aid care or as scheduled for routine hearing and/or hearing aid needs. Ms. Cisneros expressed understanding of and agreement with the above. Electronically Signed by: Christine Sorensen, CCC-A 09/24/22 1:10 PM documented in this encounter [facility] 09-22-2022 History of Present illness Narrative Associated Order(s): LG Jt Injection/Arthrocentesis: R knee; LG Jt Injection/Arthrocentesis: L knee Post-Procedure Diagnose(s): Primary osteoarthritis of both knees [facility] [address] [facility] [address] [facility] [id number] Chief Complaint Patient presents with Left Knee - Pain Right Knee - Pain Cynthia Cisneros returns to the office today for bilateral knee pain. She denies any injury to either knee. She had received an injection to the left knee last November by Dr. Valencia and states she got good relief. The knees have continued to be painful and she also feels as though they could be a little weak. She denies any instability in the knees. She uses otc pain medications as needed. The patient's past medical history, surgical history, social history, family history, medications and allergies were reviewed with the patient today and are available in the chart for further review. Allergies Allergen Reactions Penicillin G Hives, Shortness Of Breath and Swelling Sulfa (Sulfonamide Antibiotics) Hives, Shortness Of Breath and Swelling Trazodone Hives and Shortness Of Breath Celecoxib Hives Difficulty breathing, swelling Levofloxacin GI Intolerance Nausea and vomiting. [place] Diarrhea Other reaction(s): Vomiting [place] Carbonate Other reaction(s): Vomiting Niacin Unknown Sulfites Cephalexin Rash Current Outpatient Medications: albuterol (PROVENTIL) 2.5 mg/0.5 mL Nebu, Take 0.5 mL (2.5 mg total) by nebulization every 4 to 6 hours as needed (shortness of breath, wheezes) DOS ., Disp: , Rfl: atenoloL (TENORMIN) 50 MG tablet, Take 1 (one) tablet (50 mg total) by mouth 2 (two) times a day ., Disp: , Rfl: Bevespi Aerosphere 9-4.8 mcg HFAA, inhale 2 puffs by mouth and INTO THE LUNGS every morning and every evening, Disp: , Rfl: budesonide (PULMICORT) 0.5 mg/2 mL nebulizer solution, , Disp: , Rfl: CALCITRATE 200 mg (950 mg) tablet, Take 200 mg by mouth 2 (two) times a day ., Disp: , Rfl: 0 denosumab (Prolia) 60 mg/mL Syrg, Inject 60 (sixty) mg under the skin once Q 6 months ., Disp: , Rfl: fluticasone (FLONASE) 50 mcg/actuation nasal spray, Instill 1 (one) spray into each nostril every morning DOS ., Disp: , Rfl: folic acid (FOLVITE) 1 MG tablet, Take 1 (one) tablet (1 mg total) by mouth daily ., Disp: , Rfl: furosemide (LASIX) 20 MG tablet, Take 1 (one) tablet (20 mg total) by mouth daily ., Disp: , Rfl: guaiFENesin (MUCINEX) 600 mg 12 hr tablet, Take 2 (two) tablets (1,200 mg total) by mouth 2 (two) times a day ., Disp: , Rfl: hgvijczliz-ogsvvgftduji-lrkxwv 1-1-4 % Gel, , Disp: , Rfl: levothyroxine (SYNTHROID, LEVOTHROID) 75 MCG tablet, Take 1 (one) tablet (75 mcg total) by mouth every morning DOS ., Disp: , Rfl: magnesium oxide (MAG-OX) 400 mg tablet, Take 2 (two) tablets (800 mg total) by mouth nightly ., Disp: , Rfl: metaxalone (SKELAXIN) 800 MG tablet, take 1 tablet by mouth three times a day if needed for muscle aches, Disp: , Rfl: mirtazapine (REMERON) 30 MG tablet, Take 1 (one) tablet (30 mg total) by mouth nightly Takes additional 7.5 ., Disp: , Rfl: mirtazapine (REMERON) 7.5 MG tablet, Take 1 (one) tablet (7.5 mg total) by mouth nightly ., Disp: , Rfl: Nucala 100 mg/mL AtIn, , Disp: , Rfl: omega-3 fatty acids-fish oil 360-1,200 mg cap, Take by mouth 3 (three) times a day ., Disp: , Rfl: pilocarpine (SALAGEN) 5 MG tablet, Take 1 (one) tablet (5 mg total) by mouth 3 (three) times a day ., Disp: , Rfl: sodium chloride-aloe vera ([place] Saline) Gel, Apply topically 2 (two) times a day Apply a pea sized amount to both nostrils at bedtime and in a.m. You can use it more often. ., Disp: 1 g, Rfl: 12 Therems-M 9 mg iron-400 mcg Tab, Take 1 (one) tablet by mouth daily ., Disp: , Rfl: VITAMIN D3 2,000 unit cap, Take 1 (one) capsule by mouth daily ., Disp: , Rfl: 0 Past Medical History: Diagnosis Date Anemia 03/2016 Anxiety 09/2002 General anxiety disorder Arrhythmia Arthritis Asthma Bruises easily Cancer (HCC) 06/1991 Cervical cancer Clostridium difficile infection 1999 COPD (chronic obstructive pulmonary disease) (HCC) Diagnosed several years ago Coronary artery disease Depression Diabetes mellitus (HCC) Borderline GERD (gastroesophageal reflux disease) 05/20/2016 Heart murmur Hypertension Hypothyroidism (acquired) 05/20/2016 Injury of back Squamous cell skin cancer Valvular disease MVP Past Surgical History: Procedure Laterality Date ARTHROPLASTY HIP ROBOTIC EUGENE Left 10/21/2021 Procedure: Left Total Hip Replacement Robotic; Surgeon: Jovanna Valencia MD; Location: Main OR; Service: Ortho-Robotics CARPAL TUNNEL RELEASE Left CATARACT EXTRACTION W/ INTRAOCULAR LENS IMPLANT Bilateral COLON SURGERY WITH ILEOSTOMY CORE DECOMPRESSION OF LEFT FEMEROL HEAD EYE SURGERY Bilateral LASER TO EYES FOR GLAUCOMA HANDS, DUPYTRENS, TRIGGER FINGER, CARPAL TUNNEL Right HYSTERECTOMY 1990 ILEOSTOMY REVERSAL INDEX FINGER SURGERY Right MUSCLE BIOPSY ROTATOR CUFF REPAIR Left SINUS SURGERY January 2018 and nik bullosa resection SINUS SURGERY 12/30/2019 balloon sinuplasty - Dr. Key TONSILLECTOMY TRIGGER FINGER RELEASE Right 03/24/2018 Procedure: RELEASE A1 TOD LEFT MIDDLE,RING, AND SMALL FINGERS WITH CORTISONE INJECTION RIGHT MIDDLE FINGER A1 TOD; Surgeon: Yonas Nguyen MD; Location: [facility] Main OR; Service: Hand Social History Socioeconomic History Marital status: Single Tobacco Use Smoking status: Former Packs/day: 0.25 Years: 35.00 Pack years: 8.75 Types: Cigarettes Quit date: 09/2021 Years since quittin.0 Smokeless tobacco: Never Tobacco comments: Cigarettes Substance and Sexual Activity Alcohol use: No Drug use: No ROS: Review of Systems Musculoskeletal: Positive for arthralgias, joint swelling and myalgias. ORTHO: Right Knee Exam Tenderness The patient is experiencing tenderness in the medial joint line, lateral joint line and patellar tendon. Range of Motion Flexion: 140 Tests Mazin: Medial - positive Lateral - negative Varus: negative Valgus: negative Drawer: Anterior - negative Posterior - negative Other Erythema: absent Scars: absent Sensation: normal Pulse: present Swelling: mild Effusion: no effusion present Left Knee Exam Tenderness The patient is experiencing tenderness in the lateral joint line and medial joint line. Range of Motion Extension: normal Flexion: 140 Tests Mazin: Medial - positive Lateral - negative Varus: negative Valgus: negative Drawer: Anterior - negative Posterior - negative Other Erythema: absent Scars: absent Sensation: normal Pulse: present Swelling: mild Effusion: no effusion present Imaging: B/L Knees: No acute fracture or dislocation. Mild medial compartment joint space narrowing with chondrocalcinosis deposition and tiny tricompartmental osteophytes. No joint effusion. Assessment/Plan: After examination and reviewing of the patient x-ray images we discussed treatment options for both knees. I did offer her cortisone injection which she gladly excepted. I did this without complications and she tolerated this well. I am also starting her in a course of outpatient physical therapy for both knees. If there is no improvement after the injections as well as after the physical therapy I will see her back in the office. We did briefly discuss possible knee replacement surgery in the future if conservative means treatment measures fail. LG Jt Injection/Arthrocentesis: R knee Performed by: Charly Dias CNP Authorized by: Charly Dias CNP CPT 99845 - Large Joint Arthrocentesis: Consent given by: Patient Time out: Immediately prior to the procedure a time out was called Physician or proceduralist has discussed critical or nonroutine steps, procedure duration and anticipated blood loss: Yes Supporting Documentation: Indications: Pain, joint swelling and diagnostic evaluation Procedure Details: Location: Knee Site: R knee Prep: patient was prepped and draped in usual sterile fashion Needle size: 22 G Approach: Anterolateral Medications: 40 mg triamcinolone acetonide 40 mg/mL Anesthetic used: Lidocaine 1% Anesthetic amount (mL): 2 Patient tolerance: Patient tolerated the procedure well with no immediate complications LG Jt Injection/Arthrocentesis: L knee Performed by: Charly Dias CNP Authorized by: Charly Dias CNP CPT [id number] - Large Joint Arthrocentesis: Consent given by: Patient Time out: Immediately prior to the procedure a time out was called Physician or proceduralist has discussed critical or nonroutine steps, procedure duration and anticipated blood loss: Yes Supporting Documentation: Indications: Pain and diagnostic evaluation Procedure Details: Location: Knee Site: L knee Prep: patient was prepped and draped in usual sterile fashion Needle size: 22 G Approach: Anterolateral Medications: 40 mg triamcinolone acetonide 40 mg/mL Anesthetic used: Lidocaine 1% Anesthetic amount (mL): 2 Patient tolerance: Patient tolerated the procedure well with no immediate complications documented in this encounter [facility] 09-01-2022 History of Present illness Narrative Associated Order(s): LARGE JOINT/BURSA INJECTION AND/OR ASPIRATION: L knee; LARGE JOINT/BURSA INJECTION AND/OR ASPIRATION: R knee Post-Procedure Diagnose(s): Primary osteoarthritis of both knees Chief Complaint Patient presents with Knee Pain Bilateral knee Euflexxa 2 of 3. LARGE JOINT/BURSA INJECTION AND/OR ASPIRATION: L knee Date/Time: 09/01/2022 1:00 PM Supporting Documentation Indications: pain and osteoarthritis Procedure Details: Location: knee - L knee Local Anesthetic: ethyl chloride (cold spray) Needle size: 22 G Approach: anterolateral Medication Verification: I have personally verified and performed the final check of the medication(s) used in this procedure prior to administration. The following items were included during the verification process for medication(s) administered: drug name, strength, volume, expiration, physical integrity and appearance of the medication(s). Medications administered: 20 mg Sodium Hyaluronate 20 MG/2ML Patient tolerance: patient tolerated the procedure well with no immediate complications Consent: Consent was obtained prior to the procedure after discussion of the risks, benefits and alternatives, and expected outcomes were discussed with the patient. The possibilities of reaction to medication, bleeding, infection, the need for additional procedures, failure to diagnosis a condition, and creating a complication requiring operation were discussed with the patient. The patient concurred with the proposed plan, giving consent. Preparation: Patient was prepped in the usual sterile fashion. The patient was prepped with alcohol. LARGE JOINT/BURSA INJECTION AND/OR ASPIRATION: R knee Date/Time: 09/01/2022 1:00 PM Supporting Documentation Indications: pain and osteoarthritis Procedure Details: Location: knee - R knee Local Anesthetic: ethyl chloride (cold spray) Needle size: 22 G Approach: anterolateral Medication Verification: I have personally verified and performed the final check of the medication(s) used in this procedure prior to administration. The following items were included during the verification process for medication(s) administered: drug name, strength, volume, expiration, physical integrity and appearance of the medication(s). Medications administered: 20 mg Sodium Hyaluronate 20 MG/2ML Patient tolerance: patient tolerated the procedure well with no immediate complications Consent: Consent was obtained prior to the procedure after discussion of the risks, benefits and alternatives, and expected outcomes were discussed with the patient. The possibilities of reaction to medication, bleeding, infection, the need for additional procedures, failure to diagnosis a condition, and creating a complication requiring operation were discussed with the patient. The patient concurred with the proposed plan, giving consent. Preparation: Patient was prepped in the usual sterile fashion. The patient was prepped with alcohol. documented in this encounter [facility] 08-25-2022 History of Present illness Narrative Chief Complaint Patient presents with Knee Pain Bilateral knees - Completed Euflexxa series on 02/11/22. Patient states that the injections helped with the pain for around 6 months but the pain has returned and is requesting repeat injections today. HPI: Patient presents in follow-up for bilateral knee pain. Completed a Euflexxa series on 02/11/2022. Patient states that the injections help with the pain for approximately 6 months with significant relief. She states that the pain has returned and is requesting repeat bilateral Euflexxa series beginning today. To recap previous visit: Patient presents In follow-up for bilateral knee pain. Left knee x-rays completed on 12/13/2021. Right knee x-rays completed on 01/28/2022. Patient states that she has been having pain in the knees for several years. Received B/L Euflexxa injections in [place] that were completed on 06/20/2021. Patient states that on 10/22/2019 to her left knee gave out and she started having pain. On 11.23.21 she received a left knee steroid injection. Patient would like to discuss ULLOA injection vs possible TKA referral. Vitals: 08/25/22 1300 Temp: 97.8 degrees F (36.6 degrees C) TempSrc: Temporal Weight: 50.8 kg (112 lb) Height: 1.6 m (5' 3) Physical Exam: Knee Exam: bilateral ROM: 0-125. Quad tone: fair. Calf supple and nontender. No effusion. Palpation: mild joint line tenderness Angelina's: Negative Posterior Drawer: Negative Varus/Valgus stress: Negative Mazin's: Negative Patellar apprehension: Negative Patellar compression: Negative Distally neurovascular intact with 2+ DP pulse and full sensation in the DP/SP/Tibial nerve distributions. Assessment: ICD-10-CM 1. Primary osteoarthritis of both knees M17.0 Plan: At this time, we have reviewed the past medical notes pertaining to her chief complaint today, as well as her XRAYs which shows bilateral tricompartmental knee OA as well as signs of calcific changes to the meniscus. At this time, we have discussed the natural history of knee OA with the patient today. We've discussed various treatment options. As she has failed steroid injections in the past, she wishes to proceed with repeat ULLOA injections has she had good relief from the Euflexxa series completed at out last visit. We will proceed with bilateral knee Euflexxa injection at this time. She will follow-up next week for the second injection. Call the office with any questions or concerns in the meantime. Associated Order(s): LARGE JOINT/BURSA INJECTION AND/OR ASPIRATION: L knee; LARGE JOINT/BURSA INJECTION AND/OR ASPIRATION: R knee Post-Procedure Diagnose(s): Primary osteoarthritis of both knees LARGE JOINT/BURSA INJECTION AND/OR ASPIRATION: L knee Date/Time: 08/25/2022 1:00 PM Supporting Documentation Indications: pain and osteoarthritis Procedure Details: Location: knee - L knee Local Anesthetic: ethyl chloride (cold spray) Needle size: 22 G Approach: anterolateral Medication Verification: I have personally verified and performed the final check of the medication(s) used in this procedure prior to administration. The following items were included during the verification process for medication(s) administered: drug name, strength, volume, expiration, physical integrity and appearance of the medication(s). Medications administered: 20 mg Sodium Hyaluronate 20 MG/2ML Patient tolerance: patient tolerated the procedure well with no immediate complications Consent: Consent was obtained prior to the procedure after discussion of the risks, benefits and alternatives, and expected outcomes were discussed with the patient. The possibilities of reaction to medication, bleeding, infection, the need for additional procedures, failure to diagnosis a condition, and creating a complication requiring operation were discussed with the patient. The patient concurred with the proposed plan, giving consent. Preparation: Patient was prepped in the usual sterile fashion. The patient was prepped with alcohol. LARGE JOINT/BURSA INJECTION AND/OR ASPIRATION: R knee Date/Time: 08/25/2022 1:00 PM Supporting Documentation Indications: pain and osteoarthritis Procedure Details: Location: knee - R knee Local Anesthetic: ethyl chloride (cold spray) Needle size: 22 G Approach: anterolateral Medication Verification: I have personally verified and performed the final check of the medication(s) used in this procedure prior to administration. The following items were included during the verification process for medication(s) administered: drug name, strength, volume, expiration, physical integrity and appearance of the medication(s). Medications administered: 20 mg Sodium Hyaluronate 20 MG/2ML Patient tolerance: patient tolerated the procedure well with no immediate complications Consent: Consent was obtained prior to the procedure after discussion of the risks, benefits and alternatives, and expected outcomes were discussed with the patient. The possibilities of reaction to medication, bleeding, infection, the need for additional procedures, failure to diagnosis a condition, and creating a complication requiring operation were discussed with the patient. The patient concurred with the proposed plan, giving consent. Preparation: Patient was prepped in the usual sterile fashion. The patient was prepped with alcohol. Chief Complaint Patient presents with Knee Pain Bilateral knees - Completed Euflexxa series on 02/11/22. Patient states that the injections helped with the pain for around 6 months but the pain has returned and is requesting repeat injections today. HPI: Patient presents in follow-up for bilateral knee pain. Completed a Euflexxa series on 02/11/2022. Patient states that the injections help with the pain for approximately 6 months with significant relief. She states that the pain has returned and is requesting repeat bilateral Euflexxa series beginning today. To recap previous visit: Patient presents In follow-up for bilateral knee pain. Left knee x-rays completed on 12/13/2021. Right knee x-rays completed on 01/28/2022. Patient states that she has been having pain in the knees for several years. Received B/L Euflexxa injections in [place] that were completed on 06/20/2021. Patient states that on 10/22/2019 to her left knee gave out and she started having pain. On 11.23.21 she received a left knee steroid injection. Patient would like to discuss ULLOA injection vs possible TKA referral. Vitals: 08/25/22 1300 Temp: 97.8 degrees F (36.6 degrees C) TempSrc: Temporal Weight: 50.8 kg (112 lb) Height: 1.6 m (5' 3) Physical Exam: Knee Exam: bilateral ROM: 0-125. Quad tone: fair. Calf supple and nontender. No effusion. Palpation: mild joint line tenderness Angelina's: Negative Posterior Drawer: Negative Varus/Valgus stress: Negative Mazin's: Negative Patellar apprehension: Negative Patellar compression: Negative Distally neurovascular intact with 2+ DP pulse and full sensation in the DP/SP/Tibial nerve distributions. Assessment: ICD-10-CM 1. Primary osteoarthritis of both knees M17.0 Plan: At this time, we have reviewed the past medical notes pertaining to her chief complaint today, as well as her XRAYs which shows bilateral tricompartmental knee OA as well as signs of calcific changes to the meniscus. At this time, we have discussed the natural history of knee OA with the patient today. We've discussed various treatment options. As she has failed steroid injections in the past, she wishes to proceed with repeat ULLOA injections has she had good relief from the Euflexxa series completed at out last visit. We will proceed with bilateral knee Euflexxa injection at this time. She will follow-up next week for the second injection. Call the office with any questions or concerns in the meantime. LARGE JOINT/BURSA INJECTION AND/OR ASPIRATION: L knee Date/Time: 08/25/2022 1:00 PM Supporting Documentation Indications: pain and osteoarthritis Procedure Details: Location: knee - L knee Local Anesthetic: ethyl chloride (cold spray) Needle size: 22 G Approach: anterolateral Medication Verification: I have personally verified and performed the final check of the medication(s) used in this procedure prior to administration. The following items were included during the verification process for medication(s) administered: drug name, strength, volume, expiration, physical integrity and appearance of the medication(s). Medications administered: 20 mg Sodium Hyaluronate 20 MG/2ML Patient tolerance: patient tolerated the procedure well with no immediate complications Consent: Consent was obtained prior to the procedure after discussion of the risks, benefits and alternatives, and expected outcomes were discussed with the patient. The possibilities of reaction to medication, bleeding, infection, the need for additional procedures, failure to diagnosis a condition, and creating a complication requiring operation were discussed with the patient. The patient concurred with the proposed plan, giving consent. Preparation: Patient was prepped in the usual sterile fashion. The patient was prepped with alcohol. LARGE JOINT/BURSA INJECTION AND/OR ASPIRATION: R knee Date/Time: 08/25/2022 1:00 PM Supporting Documentation Indications: pain and osteoarthritis Procedure Details: Location: knee - R knee Local Anesthetic: ethyl chloride (cold spray) Needle size: 22 G Approach: anterolateral Medication Verification: I have personally verified and performed the final check of the medication(s) used in this procedure prior to administration. The following items were included during the verification process for medication(s) administered: drug name, strength, volume, expiration, physical integrity and appearance of the medication(s). Medications administered: 20 mg Sodium Hyaluronate 20 MG/2ML Patient tolerance: patient tolerated the procedure well with no immediate complications Consent: Consent was obtained prior to the procedure after discussion of the risks, benefits and alternatives, and expected outcomes were discussed with the patient. The possibilities of reaction to medication, bleeding, infection, the need for additional procedures, failure to diagnosis a condition, and creating a complication requiring operation were discussed with the patient. The patient concurred with the proposed plan, giving consent. Preparation: Patient was prepped in the usual sterile fashion. The patient was prepped with alcohol. FAMILIA Perla was acting as a scribe today for this note. I have performed all essential components of the history, and physical exam. I have confirmed the diagnosis and developed a plan of care at this visit. I have reviewed the note following the visit and have add edits as appropriate to my evaluation and plan of care. Julianna Osullivan MD documented in this encounter [facility] 08-04-2022 History of Present illness Narrative Images from the original note were not included. [facility] [address] [place] [address] Name: Cynthia Cisneros : 1950 Date: 08/04/22 Hearing Aid Contact Note: Ms. Cisneros returned today for her second and final hearing aid conformity evaluation. Ms. Cisneros reports that since last visit's changes the squeaking sound is better, she can use her VC well, her phone calls are better with VC use, and her right retention is improved. She also requests to stay at 90% target gain for now (tried 100% and was too much for her). Ms. Cisneros inquired about the manual on and off controls. Discussed and practiced on/off switches and when to use them. Datalogging revealed 14 hours of hearing aid use per day. Ms. Cisneros did not want any adjustments made today. Ms. Cisneros to return as needed for hearing aid care or as scheduled in six months for routine hearing and/or hearing aid needs. Ms. Cisneros expressed understanding of and agreement with the above. Electronically Signed by: Christine Sorensen, BESSY-A 08/04/22 2:29 PM documented in this encounter [facility] 07-16-2022 History of Present illness Narrative Images from the original note were not included. [facility] [place] [address] Name: Cynthia Cisneros : 1950 Date: 07/16/22 Hearing Aid Contact Note: Ms. Cisneros returned today for her first hearing aid conformity evaluation. Ms. Cisneros reports she is doing well with her hearing aids, and they provide benefit (ie: voodoo), however they are a little too loud at times (in groups/gatherings), and some womens' voices, TV, and music sound very squeaky and bothersome. Ms. Cisneros also reports her phone notifications go through her hearing aids but she sometimes misses notifications when she does not have her aids in. Ms. Cisneros also states that she had two phone calls but they were very quiet through her hearing aids and she could not turn up the volume. Ms. Cisneros reports concerns that her right hearing aid falls out of her ear often. Visual inspection and listening check of the hearing aid(s) revealed the hearing aids were functioning well, however the right dome was loose in Ms. Cisneros' ear. Changed dome from medium open dome to large open dome for improved retention; Ms. Cisneros did not want to try a retention strip today. Connected hearing aids to software, datalogging revealed 14 hours a day of hearing aid use. Adjusted the high pitches slightly to improve the squeaky/shrill sound quality. Enabled volume control and pt practiced successfully. Played the signals so Ms. Cisneros is aware of what they mean. Target gain remains at 90% per Ms. Cisneros' request. Discussed phone notification settings and she opted to keep them turned on. Ms. Rabago practiced a phone call and changed the volume successfully. Ms. Cisneros was encouraged to keep up the excellent hearing aid use and try her hearing aids with the new adjustments and to return as needed for hearing aid care or as scheduled in two to three weeks for routine hearing and/or hearing aid needs. Ms. Cisneros expressed understanding of and agreement with the above. Electronically Signed by: Christine Sorensen, CCC-A 07/16/22 2:45 PM documented in this encounter [facility] 06-23-2022 History of Present illness Narrative Images from the original note were not included. [facility] [place] [address] Name: Cynthia Cisneros : 1950 Date: 06/23/22 Hearing Aid Consult Note: Ms. Cisneros returned today for a hearing aid fitting. Ms. Cisneros is a new hearing aid user and was fit with binaural Phonak Audeo M50-R hearing aids with 1M receivers and medium open domes, bilaterally. Fit was excellent and was verified using real ear measurements, bilaterally. Target gain remains at 90%, hearing aids are in fully automatic mode, and noise reduction was increased to moderate, all per Ms. Cisneros' request. All aspects of care and usage were reviewed and demonstrations were completed successfully. Hearing aid goals were previously established using the NAL client oriented scale of improvement (COSI-see attached scan). The proper use and care of lithium ion batteries was discussed. Discussed realistic expectations of hearing aid use and the adjustment period it takes to get used to them and to obtain most benefit. Discussed trial period. Ms. Cisneros connected cell phone to hearing aids for direct calls via Bluetooth. Ms. Cisneros did not downloaded [employer] sathish and connected hearing aids today as time ran out. Will discuss at follow up. Discussed and signed all appropriate paperwork, provided copies for Ms. Cisneros to keep for their records. Ms. Cisneros will return as scheduled for hearing aid conformity evaluation, or sooner if there are any issues. Ms. Carpenter expressed understanding of and agreement with the above. Electronically Signed by: Christine Sorensen, CCC-A 06/23/22 2:16 PM documented in this encounter [facility] 05-26-2022 Instructions Isiah Wray DO - 05/26/2022 2:02 PM EDT Assessment/Plan: Diagnoses and all orders for this visit: Chronic maxillary sinusitis Patient has undergone first sinus surgery [address] Watters. Then a revision surgery with Dr Key. I have independently reviewed the patient's imaging images and radiologist's interpretation as well as my personal interpretation of the afformentioned images and discussed the results with them. No acute sinus infection noted on both of her sinus ct scans. Residual inflammation noted on sinus ct scan today in both her left maxillary and bilateral floor of the frontals. Unlikely causing her complaint of green drainage that she successfully irrigates with nasal irrigations. The patient may be suffering from mild empty nose syndrome and I have discussed the etiology of this with her and that nasal irrigations are the treatment of choice as well as use of ayr saline gel apply pea sized amount to both nostrils at bedtime and in a.m. I have not recommended a second revision surgery for this patient as I do not feel this would resolve her complaints. Chronic frontal sinusitis As above History of endoscopic sinus surgery TMJ (temporomandibular joint disorder) The patient has findings consistent with temporomandibular joint dysfunction. I have recommended avoidance of gum chewing, softer diet for a week, ibuprofen 800mg three times daily with meals to avoid stomach upset for one week, decrease stress, monitor and cut back on caffeine as it causes night time temporalis muscle spasm resulting in jaw clenching and loading of the jaw joint, and a bite guard at night (football mouthguard that you boil and bite into to fit if you have teeth and not dentures). documented in this encounter [facility] 05-26-2022 History of Present illness Narrative Subjective Patient ID: Cynthia Cisneros is a 71 y.o. female. Patient is here for follow up of sinus, to review CT. Sinus surgery performed Ethmoidectomy and Left nik ballosa January 2018 (Janene) - December 2019 - balloon sinuplasty _ Dr Key (Kishan) Symptom : left eye, left maxillary and left ear Pep green mucus from maxillary sinus when she does normal saline sinus rinses. 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 Since Aug 2019 left ear pain. Patient had sinus surgery in [address] Watters. Jun [address] Key, placed clorithromycin x10 days after sinus culture. Jun 18 2020, suctioned sinus fungus balls. Recommended sinus rinses. Went back 06/28/2020. Clear Sinuses. Aug 26 2020- went to for sinus inf., placed on Clarithromycin x 10days. Patient report she is doing saline rinses and still getting sinus infections. 04/2021- Dr Key, recommend Place on doxy in January for 10 days for left maxillary sinus. Saw Dr. Esteban again, recomeded morning and evening saline rinses. Pulmonary physician - his TIRE RECAPPER, wrote for clinda x 3 weeks, improved and extended it for 2 more weeks. Referred to infectious disease when not cleared, whom denied her referral. The following portions of the patient's history were reviewed and updated as appropriate: allergies, current medications, past family history, past medical history, past social history, past surgical history, and problem list. Review of Systems Constitutional: Negative for chills and diaphoresis. HENT: Positive for sinus pressure. Negative for ear discharge, ear pain and sinus pain. Eyes: Negative for discharge and redness. Respiratory: Negative for apnea and cough. Cardiovascular: Negative for chest pain and palpitations. Musculoskeletal: Negative for neck pain and neck stiffness. Skin: Negative for color change and pallor. Allergic/Immunologic: Negative for immunocompromised state. Neurological: Negative for facial asymmetry and numbness. Hematological: Does not bruise/bleed easily. Psychiatric/Behavioral: Negative for agitation and confusion. Objective Physical Exam Vitals and nursing note reviewed. Constitutional: Appearance: Normal appearance. She is well-developed. She is not ill-appearing. HENT: Head: Normocephalic and atraumatic. Right Ear: Tympanic membrane, ear canal and external ear normal. No drainage or swelling. Left Ear: Tympanic membrane, ear canal and external ear normal. No drainage or swelling. Nose: Nose normal. No mucosal edema. Mouth/Throat: Lips: [place]. Mouth: Mucous membranes are moist. Dentition: Normal dentition. Pharynx: Uvula midline. No oropharyngeal exudate or posterior oropharyngeal erythema. Comments: Dentures are 3 years old Left Jaw popping during opening Shifts right then squares up Eyes: General: Lids are normal. Left eye: No discharge. Conjunctiva/sclera: Conjunctivae normal. Left eye: No chemosis. Pupils: Pupils are equal, round, and reactive to light. Neck: Thyroid: No thyroid mass or thyromegaly. Pulmonary: Breath sounds: No stridor. Musculoskeletal: Cervical back: Normal range of motion and neck supple. No edema. Normal range of motion. Neurological: Mental Status: She is alert. Psychiatric: Behavior: Behavior is cooperative. Assessment/Plan: Diagnoses and all orders for this visit: Chronic maxillary sinusitis Patient has undergone first sinus surgery [address] Watters. Then a revision surgery with Dr Key. I have independently reviewed the patient's imaging images and radiologist's interpretation as well as my personal interpretation of the afformentioned images and discussed the results with them. No acute sinus infection noted on both of her sinus ct scans. Residual inflammation noted on sinus ct scan today in both her left maxillary and bilateral floor of the frontals. Unlikely causing her complaint of green drainage that she successfully irrigates with nasal irrigations. The patient may be suffering from mild empty nose syndrome and I have discussed the etiology of this with her and that nasal irrigations are the treatment of choice as well as use of ayr saline gel apply pea sized amount to both nostrils at bedtime and in a.m. I have not recommended a second revision surgery for this patient as I do not feel this would resolve her complaints. I have independently reviewed the patient's imaging images and radiologist's interpretation as well as my personal interpretation of the afformentioned images and discussed the results with them. I spent at least 38 minutes prepping the chart, charting, interviewing and interacting with patient, and post visit charting. Chronic frontal sinusitis As above History of endoscopic sinus surgery TMJ (temporomandibular joint disorder) The patient has findings consistent with temporomandibular joint dysfunction. I have recommended avoidance of gum chewing, softer diet for a week, ibuprofen 800mg three times daily with meals to avoid stomach upset for one week, decrease stress, monitor and cut back on caffeine as it causes night time temporalis muscle spasm resulting in jaw clenching and loading of the jaw joint, and a bite guard at night (football mouthguard that you boil and bite into to fit if you have teeth and not dentures). documented in this encounter [facility] 05-15-2022 Instructions Isiah Wray DO - 05/15/2022 3:34 PM EDT Assessment/Plan: Diagnoses and all orders for this visit: Fungal sinusitis - CT Sinus Stealth Without Contrast; Future Chronic maxillary sinusitis - Ambulatory referral to ENT - CT Sinus Stealth Without Contrast; Future I have discussed the likely etiology of their chronic sinus issues as they relate to their lack of nasal hydration and stasis of mucous secretions. We have attempted to aggressively treat their nasal hydration issue with: nasal saline spray, 2 sprays to each nostril 4-6 times daily nasal ayr saline gel, apply a pea sized amount to both nostrils at bedtime and in a.m. May use more often if needed. Start flonase 2 sprays to each nostril once daily. Make sure to aim away from midline (toward outside corner of eye) to avoid risk of nasal septal perforation. As they has had minimal response to this treatment regiment, we will proceed with getting a Stealth Protocol CT scan of their sinuses to evaluate for disease. I will see them back 1-[address] scan to review their report. They are to continue using the nasal spray and gel as well as the nasal steroid spray as previously described. Otalgia, left ear TMJ (temporomandibular joint disorder) The patient has findings consistent with temporomandibular joint dysfunction. I have recommended avoidance of gum chewing, softer diet for a week, ibuprofen 800mg three times daily with meals to avoid stomach upset for one week, decrease stress, monitor and cut back on caffeine as it causes night time temporalis muscle spasm resulting in jaw clenching and loading of the jaw joint, and a bite guard at night (football mouthguard that you boil and bite into to fit if you have teeth and not dentures). Hearing loss, unspecified hearing loss type, unspecified laterality - Ambulatory referral to Audiology; Future I have independently reviewed the patient's audiologic evaluation and discussed the results with them. I have reviewed the findings of the physical examination and audiogram with the patient. There is evidence of significant sensorineural hearing loss noted on the audiogram. the patient has fair speech discrimination but converses well in the examination room. Therefore, I informed them that they are possibly a fair candidate for amplification in the form of hearing aid on the right. They will consider this and will meet with our grinder machine setter to discuss this further. In addition, I also advised the patient to avoid noise exposure to preserve the residual hearing that they have remaining. Otherwise, I have recommended followup in one year for repeat audiometry to ensure that there is no progression of their hearing loss. They have been encouraged to call with any changes in their hearing prior to that examination. Bilateral change in hearing documented in this encounter [facility] 05-15-2022 History of Present illness Narrative Images from the original note were not included. [facility] [address] [place] [address] Name: Cynthia Cisneros : 1950 Date: 05/15/22 History & Purpose of Evaluation: Ms. Cisneros was seen today for audiologic evaluation at the kind request of Dr. Wray. Ms. Cisneros reports decline in hearing over the last three years and was last tested in 2017 (do not have records). Ms. Cisneros reports left ear is worse than right, especially on the phone, and she reports having sinus pressure. Ms. Cisneros reports misunderstanding people often in conversation and on TV and having motivation to use hearing aids if they will help her hear what people say. Please see below for other pertinent case history information as reported by Ms. Cisneros. Otologic Symptoms R L Noise Exposure Y N Medical Y N Hearing Loss [x] [x] Occupational [] [x] Hypertension [x] [] Tinnitus [] [] Recreational [x] [] Diabetes [x] [] Otalgia [x] [x] [] [x] Hypercholesterolemia [x] [] Otorrhea [] [] Heart Disease [x] [] Aural Fullness [x] [x] Family History [] [] Stroke [] [x] Meniere s Disease [] [] father Cancer-skin cancer, cervix [x] [] Y N Sp./Lang. Skills Ear Surgery R L Vertigo [] [x] Appropriate [x] [] PE Tubes [] [] Dizziness [x] [] In Therapy [] [x] Mastoidectomy [] [] Imbalance [x] [] Social Acoustic Neuroma [] [] Vestibular Rehab [] [x] Depression [x] [] Tympanoplasty [] [] Other: Results: Otoscopy: Performed by Dr. Wray prior to testing. [employer] Conduction Audiometry: Normal hearing through 500Hz sloping to moderate sensorineural hearing loss, bilaterally. Speech Audiometry: Right: Word recognition is good (88%) when assessed at a normal conversational loudness level. Left: Word recognition is excellent (100%) when assessed at a normal conversational loudness level. Immittance Audiometry: Tympanometry revealed normal tympanic membrane mobility and middle ear pressure, Type A, bilaterally. Distortion Product Otoacoustic Emissions (DPOAE; 1500-6k Hz): Did not assess. Impression: Today's results reveal symmetrical mid to high frequency sensorineural hearing loss. Ms. Singletary hearing loss is expected to interfere with speech understanding in complex listening environments and with soft speakers. Middle ear testing is consistent with a normal middle ear system, bilaterally. Ms. Cisneros is a good binaural hearing aid candidate, pending medical clearance, due to her concerns about her worsening speech understanding and her motivation to use hearing aids. Ms. Cisneros meets [place] Medicaid guidelines for hearing at the right ear and almost at the left ear. Will apply for [place] Medicaid prior authorization for binaural digital human service worker in the canal (JEROMY) hearing aids on Ms. Cisneros' behalf. Will contact Ms. Cisneros to schedule hearing aid consultation pending receipt of PA. Recommendations: Follow up with Dr. Wray. Further testing at Dr. Wray's discretion and patient to return for re-evaluation at Dr. Wray's discretion. Otologic clearance at Dr. Wray's discretion. Re-evaluate in one year, or sooner, to monitor hearing and r/o progressive hearing loss. Use of hearing protection is recommended. Will apply for prior authorization for binaural digital hearing aids at Ms. Cisneros' behalf. Will contact Ms. Cisneros to schedule hearing aid consultation pending receipt of PA. The above was explained to the patient and/or their guardian and they expressed understanding. Electronically Signed by: Christine Sorensen, [facility] 05/15/22 3:04 PM documented in this encounter [facility] 05-15-2022 History of Present illness Narrative Images from the original note were not included. Subjective Patient ID: Cynthia Cisneros is a 71 y.o. female. 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 Since Aug 2019 left ear pain. Patient had sinus surgery in [address] Watters. Jun [address] Key,placed clorithromycin x10 days after sinus culture. Jun 18 2020, suctioned sinus fungus balls. Recommended sinus rinses. Went back 06/28/2020. Clear Sinuses. Aug 26 2020- went to for sinus inf., placed on Clarithromycin x 10days. Patient report she is doing saline rinses and still getting sinus infections. 04/2021- Dr Key, recommend Place on doxy in January for 10 days for left maxillary sinus. Saw Dr. Esteban again, recomeded morning and evening saline rinses. Pulmonary physician - his [employer], wrote for clinda x 3 weeks, improved and extended it for 2 more weeks. Referred to infectious disease when not cleared, whom denied her referral. Pcp 2 pots of coffee per day for at least 96 oz per day Decaf green tea Diet coke occassional Admits to a lot of stress. Gen anxiety disorder, ptsd, depression. The following portions of the patient's history were reviewed and updated as appropriate: allergies, current medications, past family history, past medical history, past social history, past surgical history, and problem list. Review of Systems Constitutional: Negative for chills and diaphoresis. HENT: Negative for ear discharge and ear pain. Eyes: Negative for discharge and redness. Respiratory: Negative for apnea and cough. Cardiovascular: Negative for chest pain and palpitations. Musculoskeletal: Negative for neck pain and neck stiffness. Skin: Negative for color change and pallor. Allergic/Immunologic: Negative for immunocompromised state. Neurological: Negative for facial asymmetry and numbness. Hematological: Does not bruise/bleed easily. Psychiatric/Behavioral: Negative for agitation and confusion. Objective Physical Exam Vitals and nursing note reviewed. Constitutional: Appearance: Normal appearance. She is well-developed. Comments: The patient is well-developed and well-nourished without obvious deformity. HENT: Head: Normocephalic and atraumatic. Comments: Bilatral neck tension Left tmj popping Right Ear: Tympanic membrane, ear canal and external ear normal. Left Ear: Tympanic membrane, ear canal and external ear normal. Nose: Nose normal. Mouth/Throat: Mouth: Mucous membranes are moist. Comments: Dentures Eyes: General: Lids are normal. Conjunctiva/sclera: Conjunctivae normal. Left eye: No chemosis. Pupils: Pupils are equal, round, and reactive to light. Neck: Thyroid: No thyromegaly. Trachea: No tracheal deviation. Cardiovascular: Rate and Rhythm: Normal rate and regular rhythm. Heart sounds: Normal heart sounds. Pulmonary: Effort: Pulmonary effort is normal. Breath sounds: Normal breath sounds. No stridor. Musculoskeletal: Cervical back: Normal range of motion and neck supple. Lymphadenopathy: Head: Right side of head: No submental, submandibular, preauricular, posterior auricular or occipital adenopathy. Left side of head: No submental, submandibular, preauricular, posterior auricular or occipital adenopathy. Cervical: No cervical adenopathy. Right cervical: No superficial cervical adenopathy. Left cervical: No superficial or deep cervical adenopathy. Skin: General: Skin is warm and dry. Neurological: Mental Status: She is alert and oriented to person, place, and time. Coordination: Coordination normal. Gait: Gait normal. Comments: III, IV, : EOM normal V: 1,2,3: normal sensation VII: Normal strength in all divisions. IX, X: Normal voice, palatal elevation and sensation XI: Shoulder strength normal XII: Tongue mobility normal Psychiatric: Mood and Affect: Mood is not anxious. Affect is not angry. Speech: Speech is not delayed or slurred. Behavior: Behavior normal. Behavior is not agitated or aggressive. Behavior is cooperative. Assessment/Plan: Diagnoses and all orders for this visit: Fungal sinusitis - CT Sinus Stealth Without Contrast; Future Chronic maxillary sinusitis - Ambulatory referral to ENT - CT Sinus Stealth Without Contrast; Future I have discussed the likely etiology of their chronic sinus issues as they relate to their lack of nasal hydration and stasis of mucous secretions. We have attempted to aggressively treat their nasal hydration issue with: nasal saline spray, 2 sprays to each nostril 4-6 times daily nasal ayr saline gel, apply a pea sized amount to both nostrils at bedtime and in a.m. May use more often if needed. Start flonase 2 sprays to each nostril once daily. Make sure to aim away from midline (toward outside corner of eye) to avoid risk of nasal septal perforation. As they has had minimal response to this treatment regiment, we will proceed with getting a Stealth Protocol CT scan of their sinuses to evaluate for disease. I will see them back 1-[address] scan to review their report. They are to continue using the nasal spray and gel as well as the nasal steroid spray as previously described. Otalgia, left ear TMJ (temporomandibular joint disorder) The patient has findings consistent with temporomandibular joint dysfunction. I have recommended avoidance of gum chewing, softer diet for a week, ibuprofen 800mg three times daily with meals to avoid stomach upset for one week, decrease stress, monitor and cut back on caffeine as it causes night time temporalis muscle spasm resulting in jaw clenching and loading of the jaw joint, and a bite guard at night (football mouthguard that you boil and bite into to fit if you have teeth and not dentures). Hearing loss, unspecified hearing loss type, unspecified laterality - Ambulatory referral to Audiology; Future I have independently reviewed the patient's audiologic evaluation and discussed the results with them. I have reviewed the findings of the physical examination and audiogram with the patient. There is evidence of significant sensorineural hearing loss noted on the audiogram. the patient has fair speech discrimination but converses well in the examination room. Therefore, I informed them that they are possibly a fair candidate for amplification in the form of hearing aid on the right. They will consider this and will meet with our grinder machine setter to discuss this further. In addition, I also advised the patient to avoid noise exposure to preserve the residual hearing that they have remaining. Otherwise, I have recommended followup in one year for repeat audiometry to ensure that there is no progression of their hearing loss. They have been encouraged to call with any changes in their hearing prior to that examination. I spent at least 38 minutes prepping the chart, charting, interviewing and interacting with patient, and post visit charting. Bilateral change in hearing documented in this encounter [facility] 02-13-2022 History of Present illness Narrative Associated Order(s): LG Jt Injection/Arthrocentesis: R glenohumeral Post-Procedure Diagnose(s): Calcific tendinitis LG Jt Injection/Arthrocentesis: R glenohumeral Date/Time: 02/13/2022 9:26 PM Performed by: Charly Dias CNP Authorized by: Charly Dias CNP CPT 33083 - Large Joint Arthrocentesis: Consent given by: Patient Time out: Immediately prior to the procedure a time out was called Physician or proceduralist has discussed critical or nonroutine steps, procedure duration and anticipated blood loss: Yes Supporting Documentation: Indications: Pain and diagnostic evaluation Procedure Details: Location: Shoulder Site: R glenohumeral Prep: patient was prepped and draped in usual sterile fashion Needle size: 22 G Approach: Posterior Medications: 40 mg triamcinolone acetonide 40 mg/mL Anesthetic amount (mL): 2 Patient tolerance: Patient tolerated the procedure well with no immediate complications [facility] [address] [facility] [address] [facility] [place] [id number] Chief Complaint Patient presents with Right Shoulder - Pain Cynthia Cisneros returns to the office today for right shoulder pain. She has recently had a hip replacement and during the course of her rehabilitation she had been utilizing both a walker and a cane. Once she transition from a walker to the cane she utilize a cane in the right arm. She does report relying pretty heavily on the right arm as well as the shoulder in order to help her go from a sitting to standing position. She reports that she stopped using the cane about 6 or 8 weeks ago the shoulder has improved but she still continues to have pain with certain motions. She feels as though reaching behind her is more painful. She also reports that when she tries to lift the arm over her head she has a lot of pain in the shoulder. She does feel as though she is lost some strength but does not know if it is just because it so painful or not. She is tried OTC pain medications but they are not providing her with adequate pain relief. The patient's past medical history, surgical history, social history, family history, medications and allergies were reviewed with the patient today and are available in the chart for further review. Allergies Allergen Reactions Penicillin G Hives, Shortness Of Breath and Swelling Sulfa (Sulfonamide Antibiotics) Hives, Shortness Of Breath and Swelling Trazodone Hives and Shortness Of Breath Celecoxib Hives Difficulty breathing, swelling [place] Diarrhea Other reaction(s): Vomiting [place] Carbonate Other reaction(s): Vomiting Niacin Unknown Sulfites Cephalexin Rash Current Outpatient Medications: albuterol (PROVENTIL) 2.5 mg/0.5 mL Nebu, Take 2.5 mg by nebulization every 4 to 6 hours as needed (shortness of breath, wheezes) DOS . , Disp: , Rfl: atenoloL (TENORMIN) 50 MG tablet, Take 50 mg by mouth 2 (two) times a day ., Disp: , Rfl: Bevespi Aerosphere 9-4.8 mcg HFAA, inhale 2 puffs by mouth and INTO THE LUNGS every morning and every evening, Disp: , Rfl: budesonide (PULMICORT) 0.5 mg/2 mL nebulizer solution, , Disp: , Rfl: CALCITRATE 200 mg (950 mg) tablet, Take 200 mg by mouth 2 (two) times a day ., Disp: , Rfl: 0 docosahexanoic acid/epa (FISH OIL ORAL), Take 1,200 mg by mouth 3 (three) times a day., Disp: , Rfl: fluticasone (FLONASE) 50 mcg/actuation nasal spray, Instill 1 spray into each nostril every morning DOS., Disp: , Rfl: folic acid (FOLVITE) 1 MG tablet, Take 1 mg by mouth daily ., Disp: , Rfl: furosemide (LASIX) 20 MG tablet, Take 20 mg by mouth daily ., Disp: , Rfl: guaiFENesin (MUCINEX) 600 mg 12 hr tablet, Take 1,200 mg by mouth 2 (two) times a day ., Disp: , Rfl: ttscqdecsy-efixltqubvda-uahjyq 1-1-4 % Gel, , Disp: , Rfl: levothyroxine (SYNTHROID, LEVOTHROID) 75 MCG tablet, Take 75 mcg by mouth every morning DOS., Disp: , Rfl: magnesium oxide (MAG-OX) 400 mg tablet, Take 800 mg by mouth nightly ., Disp: , Rfl: metaxalone (SKELAXIN) 800 MG tablet, take 1 tablet by mouth three times a day if needed for muscle aches, Disp: , Rfl: mirtazapine (REMERON) 30 MG tablet, Take 30 mg by mouth nightly Takes additional 7.5 ., Disp: , Rfl: omega-3 fatty acids-fish oil 360-1,200 mg cap, Take by mouth 3 (three) times a day ., Disp: , Rfl: pilocarpine (SALAGEN) 5 MG tablet, Take 5 mg by mouth 3 (three) times a day ., Disp: , Rfl: Therems-M 9 mg iron-400 mcg Tab, Take 1 tablet by mouth daily ., Disp: , Rfl: VITAMIN D3 2,000 unit cap, Take 1 capsule by mouth daily., Disp: , Rfl: 0 Past Medical History: Diagnosis Date Anemia 03/2016 Anxiety 09/2002 General anxiety disorder Arrhythmia Arthritis Asthma Bruises easily Cancer (HCC) 06/1991 Cervical cancer Clostridium difficile infection 1999 COPD (chronic obstructive pulmonary disease) (HCC) Diagnosed several years ago Coronary artery disease Depression Diabetes mellitus (HCC) Borderline GERD (gastroesophageal reflux disease) 05/20/2016 Heart murmur Hypertension Hypothyroidism (acquired) 05/20/2016 Injury of back Squamous cell skin cancer Valvular disease MVP Past Surgical History: Procedure Laterality Date ARTHROPLASTY HIP ROBOTIC EUGENE Left 10/21/2021 Procedure: Left Total Hip Replacement Robotic; Surgeon: Jovanna Valencia MD; Location: Main OR; Service: Ortho-Robotics CARPAL TUNNEL RELEASE Left CATARACT EXTRACTION W/ INTRAOCULAR LENS IMPLANT Bilateral COLON SURGERY WITH ILEOSTOMY CORE DECOMPRESSION OF LEFT FEMEROL HEAD EYE SURGERY Bilateral LASER TO EYES FOR GLAUCOMA HANDS, DUPYTRENS, TRIGGER FINGER, CARPAL TUNNEL Right HYSTERECTOMY 1990 ILEOSTOMY REVERSAL INDEX FINGER SURGERY Right MUSCLE BIOPSY ROTATOR CUFF REPAIR Left SINUS SURGERY TONSILLECTOMY TRIGGER FINGER RELEASE Right 03/24/2018 Procedure: RELEASE A1 TOD LEFT MIDDLE,RING, AND SMALL FINGERS WITH CORTISONE INJECTION RIGHT MIDDLE FINGER A1 TOD; Surgeon: Yonas Nguyen MD; Location: [facility] Main OR; Service: Hand Social History Socioeconomic History Marital status: Single Tobacco Use Smoking status: Every Day Packs/day: 0.25 Years: 35.00 Pack years: 8.75 Types: Cigarettes Smokeless tobacco: Never Tobacco comments: Cigarettes Substance and Sexual Activity Alcohol use: No Drug use: No ROS: Review of Systems Musculoskeletal: Positive for arthralgias and myalgias. Negative for joint swelling. ORTHO: Right Shoulder Exam Tenderness The patient is experiencing tenderness in the acromion and biceps tendon. Range of Motion Active abduction: 90 (With sharp pain) Passive abduction: 140 (Pain) Extension: 30 Forward flexion: 140 Muscle Strength The patient has normal right shoulder strength. Tests Cross arm: positive Impingement: positive Drop arm: negative Other Erythema: absent Scars: absent Sensation: normal Pulse: present Imaging: Right shoulder: No acute fracture or dislocation. Mild degenerative changes in the acromioclavicular joint space. Small amounts of calcification in the glenohumeral joint spacing most likely calcific tendinitis. Assessment/Plan: After examination and reviewing of the patient x-ray images we discussed treatment options for the right shoulder. I did offer her cortisone injection which she gladly excepted. Given this without complications and she tolerated this well. I am also starting her in a course of outpatient physical therapy for the right shoulder. If there is no improvements after her physical therapy I will see her back in the office for follow-up. She is to continue with any OTC pain medications as needed. She does verbalize understanding and is in agreement with the treatment plan. documented in this encounter [facility] 02-11-2022 History of Present illness Narrative Associated Order(s): LARGE JOINT/BURSA INJECTION AND/OR ASPIRATION: R knee; LARGE JOINT/BURSA INJECTION AND/OR ASPIRATION: L knee Post-Procedure Diagnose(s): Primary osteoarthritis of both knees Chief Complaint Patient presents with Knee Pain Bilateral knees - Euflexxa injection 3 of 3. LARGE JOINT/BURSA INJECTION AND/OR ASPIRATION: L knee Date/Time: 02/11/2022 1:00 PM Supporting Documentation Indications: pain and osteoarthritis Procedure Details: Location: knee - L knee Local Anesthetic: ethyl chloride (cold spray) Needle size: 22 G Approach: anteromedial Medication Verification: I have personally verified and performed the final check of the medication(s) used in this procedure prior to administration. The following items were included during the verification process for medication(s) administered: drug name, strength, volume, expiration, physical integrity and appearance of the medication(s). Medications administered: 20 mg Sodium Hyaluronate 20 MG/2ML Patient tolerance: patient tolerated the procedure well with no immediate complications Consent: Consent was obtained prior to the procedure after discussion of the risks, benefits and alternatives, and expected outcomes were discussed with the patient. The possibilities of reaction to medication, bleeding, infection, the need for additional procedures, failure to diagnosis a condition, and creating a complication requiring operation were discussed with the patient. The patient concurred with the proposed plan, giving consent. Preparation: Patient was prepped in the usual sterile fashion. The patient was prepped with alcohol. LARGE JOINT/BURSA INJECTION AND/OR ASPIRATION: R knee Date/Time: 02/11/2022 1:00 PM Supporting Documentation Indications: pain and osteoarthritis Procedure Details: Location: knee - R knee Local Anesthetic: ethyl chloride (cold spray) Needle size: 22 G Approach: anterolateral Medication Verification: I have personally verified and performed the final check of the medication(s) used in this procedure prior to administration. The following items were included during the verification process for medication(s) administered: drug name, strength, volume, expiration, physical integrity and appearance of the medication(s). Medications administered: 20 mg Sodium Hyaluronate 20 MG/2ML Patient tolerance: patient tolerated the procedure well with no immediate complications Consent: Consent was obtained prior to the procedure after discussion of the risks, benefits and alternatives, and expected outcomes were discussed with the patient. The possibilities of reaction to medication, bleeding, infection, the need for additional procedures, failure to diagnosis a condition, and creating a complication requiring operation were discussed with the patient. The patient concurred with the proposed plan, giving consent. Preparation: Patient was prepped in the usual sterile fashion. The patient was prepped with alcohol. documented in this encounter [facility] 01-28-2022 History of Present illness Narrative Chief Complaint Patient presents with Knee Pain Bilateral knees. Left knee xrays completed on 12/13/21. Right knee Xrays completed today in office. Pt states that she has been having pain in the knees for several years. Received Euflexxa injections in [place] that completed on 06/20/21. On 10/21/21 Her left knee gave out and started having pain HPI: Patient presents In follow-up for bilateral knee pain. Left knee x-rays completed on 12/13/2021. Right knee x-rays completed on 01/28/2022. Patient states that she has been having pain in the knees for several years. Received B/L Euflexxa injections in [place] that were completed on 06/20/2021. Patient states that on 10/22/2019 to her left knee gave out and she started having pain. On 11.23.21 she received a left knee steroid injection. Patient would like to discuss ULLOA injection vs possible TKA referral. To recap previous visit: The patient presents for bilateral knee follow up. She had approximately 4.5 months of relief from the Euflexxa series given in Dec, 2017. Complaint of the knee giving out due to pain when walking in the previous months. Pain is primarily located at the medial aspect of the knee today. Pain primarily worsens with prolonged standing. She previously has failed intraarticular steroid injections. No fevers, chills, neurovascular complaints or other concerns. Vitals: 01/28/22 1336 Temp: 97.9 degrees F (36.6 degrees C) TempSrc: Temporal Weight: 50.8 kg (112 lb) Height: 1.6 m (5' 3) Physical Exam: Knee Exam: bilateral ROM: 0-125. Quad tone: fair. Calf supple and nontender. No effusion. Palpation: mild joint line tenderness Angelina's: Negative Posterior Drawer: Negative Varus/Valgus stress: Negative Mazin's: Negative Patellar apprehension: Negative Patellar compression: Negative Distally neurovascular intact with 2+ DP pulse and full sensation in the DP/SP/Tibial nerve distributions. Assessment: ICD-10-CM 1. Right knee pain, unspecified chronicity M25.561 2. Primary osteoarthritis of both knees M17.0 Plan: At this time, we have reviewed the past medical notes pertaining to her chief complaint today, as well as her XRAYs which shows bilateral tricompartmental knee OA as well as signs of calcific changes to the meniscus. At this time, we have discussed the natural history of knee OA with the patient today. We've discussed various treatment options. As she has failed steroid injections in the past, she wishes to proceed with repeat ULLOA injections. We will proceed with bilateral knee Euflexxa injection at this time. She will follow-up next week for the second injection. Call the office with any questions or concerns in the meantime. Associated Order(s): LARGE JOINT/BURSA INJECTION AND/OR ASPIRATION: L knee; LARGE JOINT/BURSA INJECTION AND/OR ASPIRATION: R knee Post-Procedure Diagnose(s): Primary osteoarthritis of both knees LARGE JOINT/BURSA INJECTION AND/OR ASPIRATION: L knee Date/Time: 01/28/2022 1:20 PM Supporting Documentation Indications: pain and osteoarthritis Procedure Details: Location: knee - L knee Local Anesthetic: ethyl chloride (cold spray) Needle size: 22 G Approach: anterolateral Medication Verification: I have personally verified and performed the final check of the medication(s) used in this procedure prior to administration. The following items were included during the verification process for medication(s) administered: drug name, strength, volume, expiration, physical integrity and appearance of the medication(s). Medications administered: 20 mg Sodium Hyaluronate 20 MG/2ML Patient tolerance: patient tolerated the procedure well with no immediate complications Consent: Consent was obtained prior to the procedure after discussion of the risks, benefits and alternatives, and expected outcomes were discussed with the patient. The possibilities of reaction to medication, bleeding, infection, the need for additional procedures, failure to diagnosis a condition, and creating a complication requiring operation were discussed with the patient. The patient concurred with the proposed plan, giving consent. Preparation: Patient was prepped in the usual sterile fashion. The patient was prepped with alcohol. LARGE JOINT/BURSA INJECTION AND/OR ASPIRATION: R knee Date/Time: 01/28/2022 1:20 PM Supporting Documentation Indications: pain and osteoarthritis Procedure Details: Location: knee - R knee Local Anesthetic: ethyl chloride (cold spray) Needle size: 22 G Approach: anterolateral Medication Verification: I have personally verified and performed the final check of the medication(s) used in this procedure prior to administration. The following items were included during the verification process for medication(s) administered: drug name, strength, volume, expiration, physical integrity and appearance of the medication(s). Medications administered: 20 mg Sodium Hyaluronate 20 MG/2ML Patient tolerance: patient tolerated the procedure well with no immediate complications Consent: Consent was obtained prior to the procedure after discussion of the risks, benefits and alternatives, and expected outcomes were discussed with the patient. The possibilities of reaction to medication, bleeding, infection, the need for additional procedures, failure to diagnosis a condition, and creating a complication requiring operation were discussed with the patient. The patient concurred with the proposed plan, giving consent. Preparation: Patient was prepped in the usual sterile fashion. The patient was prepped with alcohol. Chief Complaint Patient presents with Knee Pain Bilateral knees. Left knee xrays completed on 12/13/21. Right knee Xrays completed today in office. Pt states that she has been having pain in the knees for several years. Received Euflexxa injections in [place] that completed on 06/20/21. On 10/21/21 Her left knee gave out and started having pain HPI: Patient presents In follow-up for bilateral knee pain. Left knee x-rays completed on 12/13/2021. Right knee x-rays completed on 01/28/2022. Patient states that she has been having pain in the knees for several years. Received B/L Euflexxa injections in [place] that were completed on 06/20/2021. Patient states that on 10/22/2019 to her left knee gave out and she started having pain. On 11.23.21 she received a left knee steroid injection. Patient would like to discuss ULLOA injection vs possible TKA referral. To recap previous visit: The patient presents for bilateral knee follow up. She had approximately 4.5 months of relief from the Euflexxa series given in Dec, 2017. Complaint of the knee giving out due to pain when walking in the previous months. Pain is primarily located at the medial aspect of the knee today. Pain primarily worsens with prolonged standing. She previously has failed intraarticular steroid injections. No fevers, chills, neurovascular complaints or other concerns. Vitals: 01/28/22 1336 Temp: 97.9 degrees F (36.6 degrees C) TempSrc: Temporal Weight: 50.8 kg (112 lb) Height: 1.6 m (5' 3) Physical Exam: Knee Exam: bilateral ROM: 0-125. Quad tone: fair. Calf supple and nontender. No effusion. Palpation: mild joint line tenderness Angelina's: Negative Posterior Drawer: Negative Varus/Valgus stress: Negative Mazin's: Negative Patellar apprehension: Negative Patellar compression: Negative Distally neurovascular intact with 2+ DP pulse and full sensation in the DP/SP/Tibial nerve distributions. Assessment: ICD-10-CM 1. Right knee pain, unspecified chronicity M25.561 2. Primary osteoarthritis of both knees M17.0 Plan: At this time, we have reviewed the past medical notes pertaining to her chief complaint today, as well as her XRAYs which shows bilateral tricompartmental knee OA as well as signs of calcific changes to the meniscus. At this time, we have discussed the natural history of knee OA with the patient today. We've discussed various treatment options. As she has failed steroid injections in the past, she wishes to proceed with repeat ULLOA injections. We will proceed with bilateral knee Euflexxa injection at this time. She will follow-up next week for the second injection. Call the office with any questions or concerns in the meantime. LARGE JOINT/BURSA INJECTION AND/OR ASPIRATION: L knee Date/Time: 01/28/2022 1:20 PM Supporting Documentation Indications: pain and osteoarthritis Procedure Details: Location: knee - L knee Local Anesthetic: ethyl chloride (cold spray) Needle size: 22 G Approach: anterolateral Medication Verification: I have personally verified and performed the final check of the medication(s) used in this procedure prior to administration. The following items were included during the verification process for medication(s) administered: drug name, strength, volume, expiration, physical integrity and appearance of the medication(s). Medications administered: 20 mg Sodium Hyaluronate 20 MG/2ML Patient tolerance: patient tolerated the procedure well with no immediate complications Consent: Consent was obtained prior to the procedure after discussion of the risks, benefits and alternatives, and expected outcomes were discussed with the patient. The possibilities of reaction to medication, bleeding, infection, the need for additional procedures, failure to diagnosis a condition, and creating a complication requiring operation were discussed with the patient. The patient concurred with the proposed plan, giving consent. Preparation: Patient was prepped in the usual sterile fashion. The patient was prepped with alcohol. LARGE JOINT/BURSA INJECTION AND/OR ASPIRATION: R knee Date/Time: 01/28/2022 1:20 PM Supporting Documentation Indications: pain and osteoarthritis Procedure Details: Location: knee - R knee Local Anesthetic: ethyl chloride (cold spray) Needle size: 22 G Approach: anterolateral Medication Verification: I have personally verified and performed the final check of the medication(s) used in this procedure prior to administration. The following items were included during the verification process for medication(s) administered: drug name, strength, volume, expiration, physical integrity and appearance of the medication(s). Medications administered: 20 mg Sodium Hyaluronate 20 MG/2ML Patient tolerance: patient tolerated the procedure well with no immediate complications Consent: Consent was obtained prior to the procedure after discussion of the risks, benefits and alternatives, and expected outcomes were discussed with the patient. The possibilities of reaction to medication, bleeding, infection, the need for additional procedures, failure to diagnosis a condition, and creating a complication requiring operation were discussed with the patient. The patient concurred with the proposed plan, giving consent. Preparation: Patient was prepped in the usual sterile fashion. The patient was prepped with alcohol. FAMILIA Perla was acting as a scribe today for this note. I have performed all essential components of the history, and physical exam. I have confirmed the diagnosis and developed a plan of care at this visit. I have reviewed the note following the visit and have add edits as appropriate to my evaluation and plan of care. Julianna Osullivan MD documented in this encounter [facility] 10-28-2021 History of Present illness Narrative I spoke leticia Marie today and she says she is doing better today, progressing well. She is up using her walker better and sometimes will use her cane. Her swelling was worse yesterday but better today w some swelling into her foot. She does elevate the foot w ice on the hip. She denies any constipation, no nausea, appetite is iproving, she is drinking her fluids. She is taking 325mg ASA bid, 20mg Protonix every day. She then tells me she is having some bladder issues. Her bladder feels full and she doesn't think she empty's all the way w some urgancey. She denies any burning or odor to her urine but she says the color is darker. documented in this encounter [facility] 07-19-2021 History of Present illness Narrative Cynthia Chacon Eddy 1950 CC: 70 y.o. is a she with left hip pain. Chief Complaint Patient presents with Left Hip - Pain . HPI: Hip Pain patient presents to the office today with complaints of left hip pain. She reports that approximately 1 year ago the left hip became painful. She complains of groin pain which has been a constant but now she is finding more pain that radiates down the front of her thigh. She is now having increased difficulty with getting in and out of the vehicle as well as in and out of her bed. She has been seen by another provider who injected the left hip bursa with cortisone. She reports this did help with some of her symptoms but did not take it completely away. She started going to the chiropractor this past March but has not seen any significant improvement in the left hip. She does report a history of surgery on the left hip for avascular necrosis. 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 She has successfully finished a course of outpatient physical therapy and does report that in May she did notice some improvement in the left hip but then the pains and symptoms returned and continued to worsen since then. She is here for a second opinion and other option moving forward for the left hip. She had been given the opportunity for a hip injection of cortisone under fluoroscopy and there was discussion of a left total hip replacement but she just does not feel as though she had any definitive plan and felt as though she had been tossed around without giving any solid answers. She does use OTC pain medications which do not seem to provide her with much relief at this point in time. She is currently taking Prolia due to osteoporosis. This is a area of concern for her if she does decide to move forward with a replacement surgery. The patient's past medical history, surgical history, social history, family history, medications and allergies were reviewed with the patient today and are available in the chart for further review. PMH: Allergies Allergen Reactions Penicillin G Hives, Shortness Of Breath and Swelling Sulfa (Sulfonamide Antibiotics) Hives, Shortness Of Breath and Swelling Trazodone Hives and Shortness Of Breath Alprazolam Other reaction(s): Other: See Comments increased anxiety Benztropine Other (See Comments) Hallucinations Benztropine Mesylate Other reaction(s): Other: See Comments Hallucinations Buspirone NO SSRI Carbamazepine Other reaction(s): Other: See Comments blurred vision Celecoxib Hives Difficulty breathing, swelling Chlordiazepoxide Hcl Other reaction(s): Other: See Comments increased anxiety Clonazepam Other reaction(s): Intolerance Divalproex Hives Duloxetine Hives Egg Yolk [place] Diarrhea Other reaction(s): Vomiting [place] Carbonate Other reaction(s): Vomiting Lorazepam Other (See Comments) Anxiety Niacin Unknown Nsaids (Non-Steroidal Anti-Inflammatory Drug) Other reaction(s): Other: See Comments Oral nsaids Headaches and non affective Paroxetine Paroxetine Hcl Unknown Pregabalin Hives Soy Unknown Soybean Oil Sulfites Tricyclic Compounds Unknown Wheat Cephalexin Rash Current Outpatient Medications: hydrOXYchloroQUINE (PLAQUENIL) 200 mg tablet, Take 200 mg by mouth ., Disp: , Rfl: tiZANidine (ZANAFLEX) 4 MG tablet, tizanidine 4 mg tablet, Disp: , Rfl: albuterol (PROVENTIL) 2.5 mg/0.5 mL Nebu, Take 2.5 mg by nebulization every 4 to 6 hours as needed DOS ., Disp: , Rfl: atenolol (TENORMIN) 25 MG tablet, Take 25 mg by mouth every morning DOS., Disp: , Rfl: 0 CALCITRATE 200 mg (950 mg) tablet, Take 200 mg by mouth 2 (two) times a day ., Disp: , Rfl: 0 cetirizine (ZYRTEC) 10 MG tablet, Take 10 mg by mouth nightly., Disp: , Rfl: chlorthalidone (THALITONE ORAL), chlorthalidone, Disp: , Rfl: diclofenac sodium (VOLTAREN) 1 % Gel, Apply topically as needed ., Disp: , Rfl: digestive enzymes cap, Take by mouth 3 (three) times a day., Disp: , Rfl: docosahexanoic acid/epa (FISH OIL ORAL), Take 1,200 mg by mouth 3 (three) times a day., Disp: , Rfl: escitalopram oxalate (LEXAPRO) 5 MG tablet, escitalopram 5 mg tablet, Disp: , Rfl: famotidine (PEPCID) 20 MG tablet, Take 20 mg by mouth 2 (two) times a day DOS., Disp: , Rfl: fluticasone (FLONASE) 50 mcg/actuation nasal spray, Instill 1 spray into each nostril every morning DOS., Disp: , Rfl: folic acid (FOLVITE) 1 MG tablet, Take 1 mg by mouth daily ., Disp: , Rfl: furosemide (LASIX) 20 MG tablet, Take 20 mg by mouth daily ., Disp: , Rfl: guaiFENesin (MUCINEX) 600 mg 12 hr tablet, Take 1,200 mg by mouth 2 (two) times a day ., Disp: , Rfl: levofloxacin (LEVAQUIN ORAL), levofloxacin once a day, Disp: , Rfl: levothyroxine (SYNTHROID, LEVOTHROID) 75 MCG tablet, Take 75 mcg by mouth every morning DOS., Disp: , Rfl: lisinopriL (PRINIVIL,ZESTRIL) 20 MG tablet, lisinopril 20 mg tablet, Disp: , Rfl: magnesium oxide (MAG-OX) 400 mg tablet, Take 800 mg by mouth nightly ., Disp: , Rfl: melatonin 1 mg Tab, Take 10 mg by mouth nightly ., Disp: , Rfl: metaxalone (SKELAXIN) 800 MG tablet, take 1 tablet by mouth three times a day if needed for muscle aches, Disp: , Rfl: metroNIDAZOLE (METROCREAM) 0.75 % cream, Apply topically as needed ., Disp: , Rfl: mirtazapine (REMERON) 30 MG tablet, Take 30 mg by mouth nightly., Disp: , Rfl: mupirocin (BACTROBAN) 2 % ointment, Apply 1 application topically as needed ., Disp: , Rfl: pilocarpine (SALAGEN) 5 MG tablet, Take 5 mg by mouth 3 (three) times a day ., Disp: , Rfl: pseudoePHEDrine (SUDAFED) 30 MG tablet, Take 30 mg by mouth as needed ., Disp: , Rfl: therapeutic multivitamin (THERAGRAN) tablet, Take 1 tablet by mouth daily., Disp: , Rfl: tiotropium (SPIRIVA WITH HANDIHALER) 18 mcg inhalation capsule, Place 18 mcg into inhaler and inhale every morning DOS., Disp: , Rfl: VITAMIN D3 2,000 unit cap, Take 1 capsule by mouth daily., Disp: , Rfl: 0 Past Medical History: Diagnosis Date Anemia 03/2016 Anxiety 09/2002 General anxiety disorder Arrhythmia Arthritis Asthma Bruises easily Cancer (HCC) 06/1991 Cervical cancer Clostridium difficile infection 1999 COPD (chronic obstructive pulmonary disease) (HCC) Diagnosed several years ago Coronary artery disease Depression Diabetes mellitus (HCC) Borderline GERD (gastroesophageal reflux disease) 05/20/2016 Heart murmur Hypertension Hypothyroidism (acquired) 05/20/2016 Injury of back Squamous cell skin cancer Valvular disease MVP Past Surgical History: Procedure Laterality Date CARPAL TUNNEL RELEASE Left CATARACT EXTRACTION W/ INTRAOCULAR LENS IMPLANT Bilateral COLON SURGERY WITH ILEOSTOMY CORE DECOMPRESSION OF LEFT FEMEROL HEAD EYE SURGERY Bilateral LASER TO EYES FOR GLAUCOMA HANDS, DUPYTRENS, TRIGGER FINGER, CARPAL TUNNEL Right HYSTERECTOMY 1990 ILEOSTOMY REVERSAL INDEX FINGER SURGERY Right MUSCLE BIOPSY ROTATOR CUFF REPAIR Left SINUS SURGERY TONSILLECTOMY TRIGGER FINGER RELEASE Right 03/24/2018 Procedure: RELEASE A1 TOD LEFT MIDDLE,RING, AND SMALL FINGERS WITH CORTISONE INJECTION RIGHT MIDDLE FINGER A1 TOD; Surgeon: Yonas Nguyen MD; Location: [facility] Main OR; Service: Hand Social History Socioeconomic History Marital status: Single Tobacco Use Smoking status: Current Every Day Smoker Packs/day: 0.50 Years: 35.00 Pack years: 17.50 Smokeless tobacco: Never Used Tobacco comment: Cigarettes Substance and Sexual Activity Alcohol use: No Drug use: No ROS: Review of Systems Constitutional: Negative for activity change and fatigue. HENT: Negative for congestion, hearing loss and trouble swallowing. Eyes: Negative for visual disturbance. Respiratory: Negative for chest tightness and shortness of breath. Cardiovascular: Negative for chest pain and palpitations. Gastrointestinal: Negative for abdominal pain, diarrhea, nausea and vomiting. Endocrine: Negative for polydipsia, polyphagia and polyuria. Genitourinary: Negative for decreased urine volume, difficulty urinating and hematuria. Musculoskeletal: Positive for arthralgias and gait problem. Negative for joint swelling and myalgias. Skin: Negative for color change, rash and wound. Allergic/Immunologic: Negative for immunocompromised state. Neurological: Negative for dizziness, weakness, light-headedness and numbness. Hematological: Does not bruise/bleed easily. Psychiatric/Behavioral: Negative for confusion and sleep disturbance. The patient is not nervous/anxious. PE: Physical Exam Constitutional: Appearance: She is well-developed and well-nourished. HENT: Head: Normocephalic. Eyes: Pupils: Pupils are equal, round, and reactive to light. Cardiovascular: Rate and Rhythm: Normal rate and regular rhythm. Pulmonary: Effort: Pulmonary effort is normal. Breath sounds: Normal breath sounds. Abdominal: General: Bowel sounds are normal. Palpations: Abdomen is soft. Musculoskeletal: Cervical back: Normal range of motion and neck supple. Left hip: Decreased range of motion. Decreased strength. Skin: General: Skin is warm and dry. Neurological: Mental Status: She is alert and oriented to person, place, and time. ORTHO: Left Hip Exam Tenderness The patient is experiencing tenderness in the posterior. Range of Motion Abduction: normal Adduction: normal External rotation: 40 Internal rotation: 25 (With sharp pain at 25 degrees, located in the groin) Muscle Strength The patient has normal left hip strength. Tests FABRICIO: positive Alex: negative Other Erythema: absent Scars: absent Sensation: normal Pulse: present Imaging: MRI L hip: Chronic superior left labral flap tear extending anteriorly. Chronic avascular necrosis of the left femoral head articular surface without collapse. Osseous erosion involves the anterior superior acetabulum. Chronic flap tear of the right superior labrum noted. Bilateral hip arthrosis and acetabular spurring. Assessment/Plan: After examination and reviewing of the patient MRI images we discussed treatment options for the left hip. Given the increasing severity of her symptoms along with decreased range of motion and increased pain, we discussed surgical intervention for the left hip. I did inform her that a left total hip replacement would be of great benefit to her. She is in agreement with this, she does not want to move forward with any type of a injection especially if there is no improvement and she will have to then wait 3 months for any type of surgical intervention. We did discuss the surgery in great detail. Smoking cessation discussed. She wishes to proceed with the left total hip replacement with Dr. Valencia. The office will contact her to schedule. She does verbalize understanding and is in agreement with this treatment plan. Diagnosis: Problem List Items Addressed This Visit None Follow Up: documented in this encounter [facility] Evaluation note Diagnosis Primary osteoarthritis of left hip- Primary AVN (avascular necrosis of bone) (HCC) Aseptic necrosis of bone, site unspecified [facility] Primary osteoarthritis of left hip AVN (avascular necrosis of bone) (HCC) Aseptic necrosis of bone, site unspecified Primary osteoarthritis of left hip- Primary Primary osteoarthritis of left hip AVN (avascular necrosis of bone) (HCC) Aseptic necrosis of bone, site unspecified [facility] Diagnosis Primary osteoarthritis of left hip AVN (avascular necrosis of bone) (HCC) Aseptic necrosis of bone, site unspecified Primary osteoarthritis of left hip- Primary AVN (avascular necrosis of bone) (HCC) Aseptic necrosis of bone, site unspecified Hypertension, unspecified type Controlled type 2 diabetes mellitus without complication, without long-term current use of insulin (HCC) Primary osteoarthritis of left hip AVN (avascular necrosis of bone) (HCC) Aseptic necrosis of bone, site unspecified [facility] Diagnosis Primary osteoarthritis of left hip AVN (avascular necrosis of bone) (HCC) Aseptic necrosis of bone, site unspecified Exposure to SARS-associated coronavirus- Primary Primary osteoarthritis of left hip AVN (avascular necrosis of bone) (HCC) Aseptic necrosis of bone, site unspecified [facility] Status post left hip replacement- Primary [facility] Diagnosis S/P total left hip arthroplasty- Primary [facility] Diagnosis S/P total left hip arthroplasty- Primary [facility] S/P total left hip arthroplasty- Primary Arthritis of knee, left [facility] Diagnosis Onset Date Resolution Status Preoperative clearance acute Essential hypertension chron ic Hyperlipidemia chronic Paroxysmal atrial fibrillation chronic Acute bronchitis acute COPD (chronic obstructive pulmonary disease) chronic Emphysema lung [facility] Work Phone: Evaluation note* Diagnosis Onset Date Resolution Status COPD (chronic obstructive pulmonary disease) chronic Emphysema lung [facility] Work Phone: Evaluation note* Diagnosis Onset Date Resolution Status Lung nodule, solitary acute Asthma chronic Bronchiectasis chronic COPD (chronic obstructive pulmonary disease) chronic Seasonal allergies chronic [facility] Work Phone: Evaluation note* Diagnosis Primary osteoarthritis of both knees- Primary Primary localized osteoarthrosis, lower leg [facility] Calcific tendinitis- Primary Calcium deposits in tendon and bursa [facility] Diagnosis Right knee pain, unspecified chronicity- Primary Primary osteoarthritis of both knees Primary localized osteoarthrosis, lower leg Right knee pain, unspecified chronicity [facility]- [facility] S/P total left hip arthroplasty- Primary [facility] Chronic maxillary sinusitis- Primary [facility] Diagnosis Sensorineural hearing loss, bilateral- Primary Hearing loss, unspecified hearing loss type, unspecified laterality [facility] Fungal sinusitis- Primary Other and unspecified mycoses Chronic maxillary sinusitis Otalgia, left ear TMJ (temporomandibular joint disorder) Unspecified temporomandibular joint disorders Hearing loss, unspecified hearing loss type, unspecified laterality Bilateral change in hearing [facility] Diagnosis Chronic maxillary sinusitis- Primary Chronic frontal sinusitis History of endoscopic sinus surgery TMJ (temporomandibular joint disorder) Unspecified temporomandibular joint disorders [facility] Diagnosis Sensorineural hearing loss, bilateral- Primary [facility] Diagnosis Chronic maxillary sinusitis- Primary Chronic ethmoidal sinusitis Unspecified mycosis Chronic sinusitis, unspecified location [facility] Diagnosis Sensorineural hearing loss, bilateral- Primary [facility] Diagnosis Primary osteoarthritis of both knees- Primary Primary localized osteoarthrosis, lower leg [facility] Diagnosis Primary osteoarthritis of both knees- Primary Arthritis of knee, left [facility] Diagnosis Sensorineural hearing loss, bilateral- Primary [facility] Diagnosis Shoulder impingement syndrome, left- Primary Shoulder impingement syndrome, right [facility] Diagnosis Chronic maxillary sinusitis- Primary [facility] Diagnosis Chronic maxillary sinusitis Chronic ethmoidal sinusitis Unspecified mycosis Chronic sinusitis, unspecified location [facility] Diagnosis Chronic maxillary sinusitis- Primary [facility] Diagnosis Impingement syndrome of both shoulders Primary osteoarthritis of both knees [facility] Chronic maxillary sinusitis Chronic ethmoidal sinusitis Unspecified mycosis Chronic sinusitis, unspecified location [facility] Diagnosis Primary osteoarthritis of both knees- Primary Impingement syndrome of both shoulders [facility] Diagnosis Primary osteoarthritis of both knees- Primary Impingement syndrome of both shoulders [facility] Diagnosis Subacute maxillary sinusitis- Primary [facility] Diagnosis Primary osteoarthritis of both knees- Primary Impingement syndrome of both shoulders [facility] Diagnosis Sensorineural hearing loss, bilateral- Primary documented in this encounter [facility] note* Diagnosis Primary osteoarthritis of both knees- Primary Impingement syndrome of both shoulders documented in this encounter [facility] note* Diagnosis Primary osteoarthritis of both knees- Primary Impingement syndrome of both shoulders [facility] Diagnosis S/P total left hip arthroplasty- Primary [facility] Diagnosis Chronic maxillary sinusitis- Primary Chronic ethmoidal sinusitis Chronic frontal sinusitis documented in this encounter [facility] note* Diagnosis Subacute maxillary sinusitis- Primary [facility] Diagnosis Chronic obstructive pulmonary disease, unspecified COPD type (HCC)- Primary Chronic maxillary sinusitis Chronic ethmoidal sinusitis [facility] Diagnosis Primary osteoarthritis of both knees- Primary Impingement syndrome of both shoulders documented in this encounter [facility] note* Diagnosis Primary osteoarthritis of both knees- Primary Impingement syndrome of both shoulders documented in this encounter [facility] note* Diagnosis Primary osteoarthritis of both knees- Primary Impingement syndrome of both shoulders documented in this encounter [facility] note* Diagnosis Primary osteoarthritis of both knees- Primary Impingement syndrome of both shoulders documented in this encounter [facility] note* Diagnosis Primary osteoarthritis of both knees- Primary Impingement syndrome of both shoulders [facility] Diagnosis Chronic maxillary sinusitis- Primary Controlled type 2 diabetes mellitus without complication, without long-term current use of insulin ([facility]) Hypothyroidism (acquired) Unspecified hypothyroidism Osteoporosis, unspecified osteoporosis type, unspecified pathological fracture presence Chronic obstructive pulmonary disease, unspecified COPD type (HCC) Eosinophilic asthma Pulmonary eosinophilia AVN (avascular necrosis of bone) ([facility]) Aseptic necrosis of bone, site unspecified Bipolar affective disorder, remission status unspecified ([facility]) Gastroesophageal reflux disease, unspecified whether esophagitis present documented in this encounter [facility] note* Diagnosis Chronic obstructive pulmonary disease, unspecified COPD type (HCC)- Primary [facility]* Diagnosis Primary osteoarthritis of both knees- Primary Impingement syndrome of both shoulders [facility] Diagnosis Primary osteoarthritis of both knees- Primary Impingement syndrome of both shoulders documented in this encounter [facility] note* Diagnosis Primary osteoarthritis of both knees- Primary Impingement syndrome of both shoulders [facility] Diagnosis Recurrent acute serous otitis media of left ear- Primary Chronic obstructive pulmonary disease, unspecified COPD type (HCC) Eosinophilic asthma Pulmonary eosinophilia Bronchiectasis without complication (HCC) [facility] Diagnosis Sensorineural hearing loss, bilateral- Primary [facility]* Diagnosis Chronic maxillary sinusitis- Primary History of endoscopic [facility] Diagnosis Muscle cramps Chronic left-sided low back pain with left-sided sciatica [facility] Diagnosis Chronic left-sided low back pain with left-sided sciatica [M54.42, G89.29]- Primary Muscle cramps [R25.2] [facility] Diagnosis Chronic left-sided low back pain with left-sided sciatica [M54.42, G89.29]- Primary Muscle cramps [R25.2] [facility] Diagnosis Chronic left-sided low back pain with left-sided sciatica [M54.42, G89.29]- Primary Muscle cramp [R25.2] Cramp of limb [facility]* Diagnosis Shoulder impingement syndrome, right- Primary Shoulder impingement syndrome, left [facility]* Diagnosis Muscle cramps [R25.2]- [facility] Diagnosis Chronic left-sided low back pain with left-sided sciatica [M54.42, G89.29]- Primary Muscle cramps [R25.2] [facility]* Diagnosis Encounter to establish care with new doctor- Primary [facility] Diagnosis Primary osteoarthritis of both knees- Primary Primary localized osteoarthrosis, lower leg [facility] Diagnosis History of endoscopic sinus surgery- Primary [facility]* Diagnosis [facility] of endoscopic [facility] Diagnosis Cardiac arrhythmia, unspecified cardiac arrhythmia type- Primary Paroxysmal atrial fibrillation (HCC) Atrial fibrillation Chronic maxillary sinusitis Muscle cramps Bronchiectasis without complication (HCC) Wheezing Bipolar affective disorder, remission status unspecified (HCC) Chronic migraine without aura without status migrainosus, not intractable Chronic left-sided low back pain with left-sided sciatica Wheezing [facility]* Diagnosis Sensorineural hearing loss, bilateral- Primary [facility]* Diagnosis Shoulder impingement syndrome, right- Primary Shoulder impingement syndrome, left [facility]* Diagnosis Polyarthralgia- Primary Pain in joint, multiple sites Pseudogout Other disorder of calcium metabolism [facility]* Diagnosis Migraine without status migrainosus, not intractable, unspecified migraine type- Primary [facility]* Diagnosis Bipolar affective disorder, remission status unspecified (HCC) [facility]* Diagnosis Sensorineural hearing loss, bilateral- Primary [facility]* Diagnosis Calcium pyrophosphate deposition disease (CPPD)- Primary Other secondary osteoarthritis of multiple sites Myalgia Unspecified myalgia and myositis [facility]* Diagnosis Dysphagia, unspecified type- Primary Migraine without status migrainosus, not intractable, unspecified migraine type Dysarthria [facility]* Diagnosis Dysphagia, unspecified type- Primary [facility] Diagnosis Dysphagia, unspecified type- Primary [facility]* Diagnosis Encounter for screening for malignant neoplasm of lung in current smoker with 30 pack year history or greater- Primary Personal history of nicotine dependence [facility] Diagnosis Controlled type 2 diabetes mellitus without complication, without long-term current use of insulin (HCC)- Primary Moderate major depression (HCC) Major depressive disorder, single episode, moderate AVN (avascular necrosis of bone) (HCC) Aseptic necrosis of bone, site unspecified Bipolar affective disorder, remission status unspecified (HCC) Chronic obstructive pulmonary disease, unspecified COPD type (HCC) Bronchiectasis without complication (HCC) Paroxysmal atrial fibrillation (HCC) Atrial fibrillation Malignant neoplasm (HCC) Other malignant neoplasm of unspecified site Insomnia, unspecified type [facility] Diagnosis History of endoscopic [facility] surgery [facility] Diagnosis Eosinophilic asthma- Primary Pulmonary eosinophilia documented [facility] this encounter [facility]* Diagnosis Dysphagia, unspecified type- Primary documented in this encounter [facility] note* Diagnosis Primary osteoarthritis of both knees- Primary Primary localized osteoarthrosis, lower leg documented in this encounter [facility] note* Diagnosis Gastroesophageal reflux disease, unspecified whether esophagitis present- Primary [facility] Diagnosis Bipolar affective disorder, remission status unspecified (HCC)- Primary Anxiety Anxiety state, unspecified documented in this encounter [facility] note* Diagnosis Bipolar affective disorder, remission status unspecified (HCC) documented in this encounter [facility] note* Diagnosis Shoulder impingement syndrome, right- Primary Shoulder impingement syndrome, left documented in this encounter [facility] note* Diagnosis Chronic obstructive pulmonary disease, unspecified COPD type ([facility]) documented in this encounter [facility] note* Diagnosis Shoulder impingement syndrome, right- Primary Shoulder impingement syndrome, left documented [facility] this encounter [facility]* Diagnosis Chronic migraine without aura without status migrainosus, not intractable documented in this encounter [facility] note* Diagnosis Impingement syndrome of shoulder region, unspecified laterality- Primary Shoulder impingement syndrome, right Shoulder impingement syndrome, left documented in this encounter [facility]* Diagnosis Impingement syndrome of shoulder region, unspecified laterality- Primary documented in this [facility]* Diagnosis Moderate major depression (HCC)- Primary Major depressive disorder, single episode, moderate Anxiety Anxiety state, unspecified documented in this encounter [facility]* Diagnosis Impingement syndrome of shoulder region, unspecified laterality- Primary documented in this encounter [facility]* Diagnosis Sensorineural hearing loss, bilateral- Primary documented in this encounter [facility]* Diagnosis Impingement syndrome of shoulder region, unspecified laterality- Primary [facility]* Diagnosis Bipolar affective disorder, remission status unspecified (HCC)- Primary Moderate major depression (HCC) Major depressive disorder, single episode, moderate Acute pain of left shoulder Chronic obstructive pulmonary disease, unspecified COPD type (HCC) Dysphagia, unspecified type Gastroesophageal reflux disease, unspecified whether esophagitis present Osteoporosis, unspecified osteoporosis type, unspecified pathological fracture presence Prediabetes Other abnormal glucose Abnormal finding of blood chemistry, unspecified documented in this encounter [facility] note* Diagnosis Impingement syndrome of shoulder region, unspecified laterality- Primary [facility]* Diagnosis Impingement syndrome of shoulder region, unspecified laterality- Primary [facility]* Diagnosis Impingement syndrome of shoulder region, unspecified laterality- Primary [facility]* Diagnosis Anxiety Anxiety state, unspecified Moderate major depression (HCC) Major depressive disorder, single episode, moderate [facility]* Diagnosis Shoulder impingement syndrome, left- Primary Shoulder impingement syndrome, right [facility]* Diagnosis History of endoscopic sinus surgery [facility]* Diagnosis Chondrocalcinosis of right knee- Primary Chondrocalcinosis of left knee Nontraumatic incomplete tear of left rotator cuff [facility]* Diagnosis Chondrocalcinosis of right knee- Primary Chondrocalcinosis of left knee [facility] Diagnosis Paroxysmal atrial fibrillation (HCC)- Primary Atrial fibrillation [facility] this [facility]* Diagnosis History of endoscopic sinus surgery [facility] Diagnosis Hypothyroidism (acquired) Unspecified hypothyroidism Chronic migraine without aura without status migrainosus, not intractable Moderate major depression (HCC) Major depressive disorder, single episode, moderate [facility]* Diagnosis Anxiety Anxiety state, unspecified Moderate major depression (HCC) Major depressive disorder, single episode, moderate [facility] Diagnosis Anxiety Anxiety state, unspecified Moderate major depression (HCC) Major depressive disorder, single episode, moderate [facility]* Diagnosis Chronic maxillary sinusitis- Primary Controlled type 2 diabetes mellitus without complication, without long-term current use of insulin ([facility]) Hypothyroidism (acquired) Unspecified hypothyroidism Osteoporosis, unspecified osteoporosis type, unspecified pathological fracture presence Chronic obstructive pulmonary disease, unspecified COPD type (HCC) Eosinophilic asthma Pulmonary eosinophilia AVN (avascular necrosis of bone) ([facility]) Aseptic necrosis of bone, site unspecified Bipolar affective disorder, remission status unspecified ([facility]) Gastroesophageal reflux disease, unspecified whether esophagitis present Bipolar affective disorder, remission status unspecified ([facility])- Primary Chronic frontal sinusitis Chronic maxillary sinusitis Muscle cramps Hyperlipidemia, unspecified hyperlipidemia type Controlled type 2 diabetes mellitus without complication, without long-term current use of insulin (HCC) Migraine without status migrainosus, not intractable, unspecified migraine type Chronic left-sided low back pain with left-sided sciatica Osteoporosis, unspecified osteoporosis type, unspecified pathological fracture presence Cardiac arrhythmia, unspecified cardiac arrhythmia type- Primary Paroxysmal atrial fibrillation (HCC) Atrial fibrillation Chronic maxillary sinusitis Muscle cramps Bronchiectasis without complication (HCC) Wheezing Bipolar affective disorder, remission status unspecified (HCC) Chronic migraine without aura without status migrainosus, not intractable Chronic left-sided low back pain with left-sided sciatica Controlled type 2 diabetes mellitus without complication, without long-term current use of insulin (HCC)- Primary Moderate major depression (HCC) Major depressive disorder, single episode, moderate AVN (avascular necrosis of bone) ([facility]) Aseptic necrosis of bone, site unspecified Bipolar affective disorder, remission status unspecified ([facility]) Chronic obstructive pulmonary disease, unspecified COPD type (HCC) Bronchiectasis without complication (HCC) Paroxysmal atrial fibrillation (HCC) Atrial fibrillation Malignant neoplasm (HCC) Other malignant neoplasm of unspecified site Insomnia, unspecified type Bipolar affective disorder, remission status unspecified ([facility])- Primary Moderate major depression (HCC) Major depressive disorder, single episode, moderate Acute pain of left shoulder Chronic obstructive pulmonary disease, unspecified COPD type (HCC) Dysphagia, unspecified type Gastroesophageal reflux disease, unspecified whether esophagitis present Osteoporosis, unspecified osteoporosis type, unspecified pathological fracture presence Prediabetes Other abnormal glucose Abnormal finding of blood chemistry, unspecified Right hip pain- Primary Pain in joint, pelvic region and thigh Closed compression fracture of L2 lumbar vertebra with routine healing, subsequent encounter Osteoporosis, unspecified osteoporosis type, unspecified pathological fracture presence Subarachnoid hemorrhage (HCC) Subarachnoid hemorrhage documented in this encounter [facility] note* Diagnosis Chronic maxillary sinusitis- Primary Controlled type 2 diabetes mellitus without complication, without long-term current use of insulin (HCC) Hypothyroidism (acquired) Unspecified hypothyroidism Osteoporosis, unspecified osteoporosis type, unspecified pathological fracture presence Chronic obstructive pulmonary disease, unspecified COPD type (HCC) Eosinophilic asthma Pulmonary eosinophilia AVN (avascular necrosis of bone) ([facility]) Aseptic necrosis of bone, site unspecified Bipolar affective disorder, remission status unspecified ([facility]) Gastroesophageal reflux disease, unspecified whether esophagitis present Bipolar affective disorder, remission status unspecified ([facility])- Primary Chronic frontal sinusitis Chronic maxillary sinusitis Muscle cramps Hyperlipidemia, unspecified hyperlipidemia type Controlled type 2 diabetes mellitus without complication, without long-term current use of insulin (HCC) Migraine without status migrainosus, not intractable, unspecified migraine type Chronic left-sided low back pain with left-sided sciatica Osteoporosis, unspecified osteoporosis type, unspecified pathological fracture presence Cardiac arrhythmia, unspecified cardiac arrhythmia type- Primary Paroxysmal atrial fibrillation (HCC) Atrial fibrillation Chronic maxillary sinusitis Muscle cramps Bronchiectasis without complication (HCC) Wheezing Bipolar affective disorder, remission status unspecified (HCC) Chronic migraine without aura without status migrainosus, not intractable Chronic left-sided low back pain with left-sided sciatica Controlled type 2 diabetes mellitus without complication, without long-term current use of insulin (HCC)- Primary Moderate major depression (HCC) Major depressive disorder, single episode, moderate AVN (avascular necrosis of bone) ([facility]) Aseptic necrosis of bone, site unspecified Bipolar affective disorder, remission status unspecified (HCC) Chronic obstructive pulmonary disease, unspecified COPD type (HCC) Bronchiectasis without complication (HCC) Paroxysmal atrial fibrillation (HCC) Atrial fibrillation Malignant neoplasm (HCC) Other malignant neoplasm of unspecified site Insomnia, unspecified type Bipolar affective disorder, remission status unspecified (HCC)- Primary Moderate major depression (HCC) Major depressive disorder, single episode, moderate Acute pain of left shoulder Chronic obstructive pulmonary disease, unspecified COPD type (HCC) Dysphagia, unspecified type Gastroesophageal reflux disease, unspecified whether esophagitis present Osteoporosis, unspecified osteoporosis type, unspecified pathological fracture presence Prediabetes Other abnormal glucose Abnormal finding of blood chemistry, unspecified Right hip pain- Primary Pain in joint, pelvic region and thigh Closed compression fracture of L2 lumbar vertebra with routine healing, subsequent encounter Osteoporosis, unspecified osteoporosis type, unspecified pathological fracture presence Subarachnoid hemorrhage (HCC) Subarachnoid hemorrhage Anxiety Anxiety state, unspecified Moderate major depression (HCC) Major depressive disorder, single episode, moderate documented in this encounter [facility] note* Diagnosis Chronic maxillary sinusitis- Primary Controlled type 2 diabetes mellitus without complication, without long-term current use of insulin (HCC) Hypothyroidism (acquired) Unspecified hypothyroidism Osteoporosis, unspecified osteoporosis type, unspecified pathological fracture presence Chronic obstructive pulmonary disease, unspecified COPD type (HCC) Eosinophilic asthma Pulmonary eosinophilia AVN (avascular necrosis of bone) (HCC) Aseptic necrosis of bone, site unspecified Bipolar affective disorder, remission status unspecified (HCC) Gastroesophageal reflux disease, unspecified whether esophagitis present Bipolar affective disorder, remission status unspecified (HCC)- Primary Chronic frontal sinusitis Chronic maxillary sinusitis Muscle cramps Hyperlipidemia, unspecified hyperlipidemia type Controlled type 2 diabetes mellitus without complication, without long-term current use of insulin (HCC) Migraine without status migrainosus, not intractable, unspecified migraine type Chronic left-sided low back pain with left-sided sciatica Osteoporosis, unspecified osteoporosis type, unspecified pathological fracture presence Cardiac arrhythmia, unspecified cardiac arrhythmia type- Primary Paroxysmal atrial fibrillation (HCC) Atrial fibrillation Chronic maxillary sinusitis Muscle cramps Bronchiectasis without complication (HCC) Wheezing Bipolar affective disorder, remission status unspecified (HCC) Chronic migraine without aura without status migrainosus, not intractable Chronic left-sided low back pain with left-sided sciatica Controlled type 2 diabetes mellitus without complication, without long-term current use of insulin (HCC)- Primary Moderate major depression (HCC) Major depressive disorder, single episode, moderate AVN (avascular necrosis of bone) ([facility]) Aseptic necrosis of bone, site unspecified Bipolar affective disorder, remission status unspecified (HCC) Chronic obstructive pulmonary disease, unspecified COPD type (HCC) Bronchiectasis without complication (HCC) Paroxysmal atrial fibrillation (HCC) Atrial fibrillation Malignant neoplasm (HCC) Other malignant neoplasm of unspecified site Insomnia, unspecified type Bipolar affective disorder, remission status unspecified ([facility])- Primary Moderate major depression (HCC) Major depressive disorder, single episode, moderate Acute pain of left shoulder Chronic obstructive pulmonary disease, unspecified COPD type (HCC) Dysphagia, unspecified type Gastroesophageal reflux disease, unspecified whether esophagitis present Osteoporosis, unspecified osteoporosis type, unspecified pathological fracture presence Prediabetes Other abnormal glucose Abnormal finding of blood chemistry, unspecified Right hip pain- Primary Pain in joint, pelvic region and thigh Closed compression fracture of L2 lumbar vertebra with routine healing, subsequent encounter Osteoporosis, unspecified osteoporosis type, unspecified pathological fracture presence Subarachnoid hemorrhage (HCC) Subarachnoid hemorrhage documented in this encounter [facility] note* Diagnosis Chronic maxillary sinusitis- Primary Controlled type 2 diabetes mellitus without complication, without long-term current use of insulin (HCC) Hypothyroidism (acquired) Unspecified hypothyroidism Osteoporosis, unspecified osteoporosis type, unspecified pathological fracture presence Chronic obstructive pulmonary disease, unspecified COPD type (HCC) Eosinophilic asthma Pulmonary eosinophilia AVN (avascular necrosis of bone) ([facility]) Aseptic necrosis of bone, site unspecified Bipolar affective disorder, remission status unspecified (HCC) Gastroesophageal reflux disease, unspecified whether esophagitis present Bipolar affective disorder, remission status unspecified (HCC)- Primary Chronic frontal sinusitis Chronic maxillary sinusitis Muscle cramps Hyperlipidemia, unspecified hyperlipidemia type Controlled type 2 diabetes mellitus without complication, without long-term current use of insulin (HCC) Migraine without status migrainosus, not intractable, unspecified migraine type Chronic left-sided low back pain with left-sided sciatica Osteoporosis, unspecified osteoporosis type, unspecified pathological fracture presence Cardiac arrhythmia, unspecified cardiac arrhythmia type- Primary Paroxysmal atrial fibrillation (HCC) Atrial fibrillation Chronic maxillary sinusitis Muscle cramps Bronchiectasis without complication (HCC) Wheezing Bipolar affective disorder, remission status unspecified (HCC) Chronic migraine without aura without status migrainosus, not intractable Chronic left-sided low back pain with left-sided sciatica Controlled type 2 diabetes mellitus without complication, without long-term current use of insulin (HCC)- Primary Moderate major depression (HCC) Major depressive disorder, single episode, moderate AVN (avascular necrosis of bone) (HCC) Aseptic necrosis of bone, site unspecified Bipolar affective disorder, remission status unspecified (HCC) Chronic obstructive pulmonary disease, unspecified COPD type (HCC) Bronchiectasis without complication (HCC) Paroxysmal atrial fibrillation (HCC) Atrial fibrillation Malignant neoplasm (HCC) Other malignant neoplasm of unspecified site Insomnia, unspecified type Bipolar affective disorder, remission status unspecified ([facility])- Primary Moderate major depression (HCC) Major depressive disorder, single episode, moderate Acute pain of left shoulder Chronic obstructive pulmonary disease, unspecified COPD type (HCC) Dysphagia, unspecified type Gastroesophageal reflux disease, unspecified whether esophagitis present Osteoporosis, unspecified osteoporosis type, unspecified pathological fracture presence Prediabetes Other abnormal glucose Abnormal finding of blood chemistry, unspecified Right hip pain- Primary Pain in joint, pelvic region and thigh Closed compression fracture of L2 lumbar vertebra with routine healing, subsequent encounter Osteoporosis, unspecified osteoporosis type, unspecified pathological fracture presence Subarachnoid hemorrhage (HCC) Subarachnoid hemorrhage documented in this encounter [facility] note* Diagnosis Chronic maxillary sinusitis- Primary Controlled type 2 diabetes mellitus without complication, without long-term current use of insulin (HCC) Hypothyroidism (acquired) Unspecified hypothyroidism Osteoporosis, unspecified osteoporosis type, unspecified pathological fracture presence Chronic obstructive pulmonary disease, unspecified COPD type (HCC) Eosinophilic asthma Pulmonary eosinophilia AVN (avascular necrosis of bone) (HCC) Aseptic necrosis of bone, site unspecified Bipolar affective disorder, remission status unspecified (HCC) Gastroesophageal reflux disease, unspecified whether esophagitis present Bipolar affective disorder, remission status unspecified ([facility])- Primary Chronic frontal sinusitis Chronic maxillary sinusitis Muscle cramps Hyperlipidemia, unspecified hyperlipidemia type Controlled type 2 diabetes mellitus without complication, without long-term current use of insulin (HCC) Migraine without status migrainosus, not intractable, unspecified migraine type Chronic left-sided low back pain with left-sided sciatica Osteoporosis, unspecified osteoporosis type, unspecified pathological fracture presence Cardiac arrhythmia, unspecified cardiac arrhythmia type- Primary Paroxysmal atrial fibrillation (HCC) Atrial fibrillation Chronic maxillary sinusitis Muscle cramps Bronchiectasis without complication ([facility]) Wheezing Bipolar affective disorder, remission status unspecified ([facility]) Chronic migraine without aura without status migrainosus, not intractable Chronic left-sided low back pain with left-sided sciatica Controlled type 2 diabetes mellitus without complication, without long-term current use of insulin ([facility])- Primary Moderate major depression (HCC) Major depressive disorder, single episode, moderate AVN (avascular necrosis of bone) ([facility]) Aseptic necrosis of bone, site unspecified Bipolar affective disorder, remission status unspecified ([facility]) Chronic obstructive pulmonary disease, unspecified COPD type (HCC) Bronchiectasis without complication (HCC) Paroxysmal atrial fibrillation (HCC) Atrial fibrillation Malignant neoplasm (HCC) Other malignant neoplasm of unspecified site Insomnia, unspecified type Bipolar affective disorder, remission status unspecified ([facility])- Primary Moderate major depression (HCC) Major depressive disorder, single episode, moderate Acute pain of left shoulder Chronic obstructive pulmonary disease, unspecified COPD type (HCC) Dysphagia, unspecified type Gastroesophageal reflux disease, unspecified whether esophagitis present Osteoporosis, unspecified osteoporosis type, unspecified pathological fracture presence Prediabetes Other abnormal glucose Abnormal finding of blood chemistry, unspecified Right hip pain- Primary Pain in joint, pelvic region and thigh Closed compression fracture of L2 lumbar vertebra with routine healing, subsequent encounter Osteoporosis, unspecified osteoporosis type, unspecified pathological fracture presence Subarachnoid hemorrhage (HCC) Subarachnoid hemorrhage Closed fracture of sacrum, unspecified fracture morphology, initial encounter ([facility])- Primary Right hip pain Pain in joint, pelvic region and thigh Primary osteoarthritis of right hip documented in this encounter [facility] note* Diagnosis Chronic maxillary sinusitis- Primary Controlled type 2 diabetes mellitus without complication, without long-term current use of insulin (HCC) Hypothyroidism (acquired) Unspecified hypothyroidism Osteoporosis, unspecified osteoporosis type, unspecified pathological fracture presence Chronic obstructive pulmonary disease, unspecified COPD type (HCC) Eosinophilic asthma Pulmonary eosinophilia AVN (avascular necrosis of bone) (HCC) Aseptic necrosis of bone, site unspecified Bipolar affective disorder, remission status unspecified ([facility]) Gastroesophageal reflux disease, unspecified whether esophagitis present Bipolar affective disorder, remission status unspecified ([facility])- Primary Chronic frontal sinusitis Chronic maxillary sinusitis Muscle cramps Hyperlipidemia, unspecified hyperlipidemia type Controlled type 2 diabetes mellitus without complication, without long-term current use of insulin ([facility]) Migraine without status migrainosus, not intractable, unspecified migraine type Chronic left-sided low back pain with left-sided sciatica Osteoporosis, unspecified osteoporosis type, unspecified pathological fracture presence Cardiac arrhythmia, unspecified cardiac arrhythmia type- Primary Paroxysmal atrial fibrillation ([facility]) Atrial fibrillation Chronic maxillary sinusitis Muscle cramps Bronchiectasis without complication ([facility]) Wheezing Bipolar affective disorder, remission status unspecified ([facility]) Chronic migraine without aura without status migrainosus, not intractable Chronic left-sided low back pain with left-sided sciatica Controlled type 2 diabetes mellitus without complication, without long-term current use of insulin ([facility])- Primary Moderate major depression (HCC) Major depressive disorder, single episode, moderate AVN (avascular necrosis of bone) ([facility]) Aseptic necrosis of bone, site unspecified Bipolar affective disorder, remission status unspecified ([facility]) Chronic obstructive pulmonary disease, unspecified COPD type ([facility]) Bronchiectasis without complication (HCC) Paroxysmal atrial fibrillation (HCC) Atrial fibrillation Malignant neoplasm (HCC) Other malignant neoplasm of unspecified site Insomnia, unspecified type Bipolar affective disorder, remission status unspecified ([facility])- Primary Moderate major depression (HCC) Major depressive disorder, single episode, moderate Acute pain of left shoulder Chronic obstructive pulmonary disease, unspecified COPD type (HCC) Dysphagia, unspecified type Gastroesophageal reflux disease, unspecified whether esophagitis present Osteoporosis, unspecified osteoporosis type, unspecified pathological fracture presence Prediabetes Other abnormal glucose Abnormal finding of blood chemistry, unspecified Right hip pain- Primary Pain in joint, pelvic region and thigh Closed compression fracture of L2 lumbar vertebra with routine healing, subsequent encounter Osteoporosis, unspecified osteoporosis type, unspecified pathological fracture presence Subarachnoid hemorrhage (HCC) Subarachnoid hemorrhage Anxiety Anxiety state, unspecified Moderate major depression (HCC) Major depressive disorder, single episode, moderate documented in this encounter [facility] note* Diagnosis Chronic maxillary sinusitis- Primary Controlled type 2 diabetes mellitus without complication, without long-term current use of insulin (HCC) Hypothyroidism (acquired) Unspecified hypothyroidism Osteoporosis, unspecified osteoporosis type, unspecified pathological fracture presence Chronic obstructive pulmonary disease, unspecified COPD type (HCC) Eosinophilic asthma Pulmonary eosinophilia AVN (avascular necrosis of bone) (HCC) Aseptic necrosis of bone, site unspecified Bipolar affective disorder, remission status unspecified (HCC) Gastroesophageal reflux disease, unspecified whether esophagitis present Bipolar affective disorder, remission status unspecified (HCC)- Primary Chronic frontal sinusitis Chronic maxillary sinusitis Muscle cramps Hyperlipidemia, unspecified hyperlipidemia type Controlled type 2 diabetes mellitus without complication, without long-term current use of insulin (HCC) Migraine without status migrainosus, not intractable, unspecified migraine type Chronic left-sided low back pain with left-sided sciatica Osteoporosis, unspecified osteoporosis type, unspecified pathological fracture presence Cardiac arrhythmia, unspecified cardiac arrhythmia type- Primary Paroxysmal atrial fibrillation (HCC) Atrial fibrillation Chronic maxillary sinusitis Muscle cramps Bronchiectasis without complication (HCC) Wheezing Bipolar affective disorder, remission status unspecified (HCC) Chronic migraine without aura without status migrainosus, not intractable Chronic left-sided low back pain with left-sided sciatica Controlled type 2 diabetes mellitus without complication, without long-term current use of insulin (HCC)- Primary Moderate major depression (HCC) Major depressive disorder, single episode, moderate AVN (avascular necrosis of bone) (HCC) Aseptic necrosis of bone, site unspecified Bipolar affective disorder, remission status unspecified (HCC) Chronic obstructive pulmonary disease, unspecified COPD type (HCC) Bronchiectasis without complication (HCC) Paroxysmal atrial fibrillation (HCC) Atrial fibrillation Malignant neoplasm (HCC) Other malignant neoplasm of unspecified site Insomnia, unspecified type Bipolar affective disorder, remission status unspecified (HCC)- Primary Moderate major depression (HCC) Major depressive disorder, single episode, moderate Acute pain of left shoulder Chronic obstructive pulmonary disease, unspecified COPD type (HCC) Dysphagia, unspecified type Gastroesophageal reflux disease, unspecified whether esophagitis present Osteoporosis, unspecified osteoporosis type, unspecified pathological fracture presence Prediabetes Other abnormal glucose Abnormal finding of blood chemistry, unspecified Right hip pain- Primary Pain in joint, pelvic region and thigh Closed compression fracture of L2 lumbar vertebra with routine healing, subsequent encounter Osteoporosis, unspecified osteoporosis type, unspecified pathological fracture presence Subarachnoid hemorrhage (HCC) Subarachnoid hemorrhage History of endoscopic sinus surgery documented in this encounter [facility] note* Diagnosis Chronic maxillary sinusitis- Primary Controlled type 2 diabetes mellitus without complication, without long-term current use of insulin (HCC) Hypothyroidism (acquired) Unspecified hypothyroidism Osteoporosis, unspecified osteoporosis type, unspecified pathological fracture presence Chronic obstructive pulmonary disease, unspecified COPD type (HCC) Eosinophilic asthma Pulmonary eosinophilia AVN (avascular necrosis of bone) (HCC) Aseptic necrosis of bone, site unspecified Bipolar affective disorder, remission status unspecified (HCC) Gastroesophageal reflux disease, unspecified whether esophagitis present Bipolar affective disorder, remission status unspecified ([facility])- Primary Chronic frontal sinusitis Chronic maxillary sinusitis Muscle cramps Hyperlipidemia, unspecified hyperlipidemia type Controlled type 2 diabetes mellitus without complication, without long-term current use of insulin (HCC) Migraine without status migrainosus, not intractable, unspecified migraine type Chronic left-sided low back pain with left-sided sciatica Osteoporosis, unspecified osteoporosis type, unspecified pathological fracture presence Cardiac arrhythmia, unspecified cardiac arrhythmia type- Primary Paroxysmal atrial fibrillation (HCC) Atrial fibrillation Chronic maxillary sinusitis Muscle cramps Bronchiectasis without complication (HCC) Wheezing Bipolar affective disorder, remission status unspecified (HCC) Chronic migraine without aura without status migrainosus, not intractable Chronic left-sided low back pain with left-sided sciatica Controlled type 2 diabetes mellitus without complication, without long-term current use of insulin (HCC)- Primary Moderate major depression (HCC) Major depressive disorder, single episode, moderate AVN (avascular necrosis of bone) (HCC) Aseptic necrosis of bone, site unspecified Bipolar affective disorder, remission status unspecified (HCC) Chronic obstructive pulmonary disease, unspecified COPD type (HCC) Bronchiectasis without complication (HCC) Paroxysmal atrial fibrillation (HCC) Atrial fibrillation Malignant neoplasm (HCC) Other malignant neoplasm of unspecified site Insomnia, unspecified type Bipolar affective disorder, remission status unspecified ([facility])- Primary Moderate major depression (HCC) Major depressive disorder, single episode, moderate Acute pain of left shoulder Chronic obstructive pulmonary disease, unspecified COPD type (HCC) Dysphagia, unspecified type Gastroesophageal reflux disease, unspecified whether esophagitis present Osteoporosis, unspecified osteoporosis type, unspecified pathological fracture presence Prediabetes Other abnormal glucose Abnormal finding of blood chemistry, unspecified Right hip pain- Primary Pain in joint, pelvic region and thigh Closed compression fracture of L2 lumbar vertebra with routine healing, subsequent encounter Osteoporosis, unspecified osteoporosis type, unspecified pathological fracture presence Subarachnoid hemorrhage (HCC) Subarachnoid hemorrhage Paroxysmal atrial fibrillation (HCC) Atrial fibrillation documented in this encounter [facility] note* Diagnosis Chronic maxillary sinusitis- Primary Controlled type 2 diabetes mellitus without complication, without long-term current use of insulin (HCC) Hypothyroidism (acquired) Unspecified hypothyroidism Osteoporosis, unspecified osteoporosis type, unspecified pathological fracture presence Chronic obstructive pulmonary disease, unspecified COPD type (HCC) Eosinophilic asthma Pulmonary eosinophilia AVN (avascular necrosis of bone) (HCC) Aseptic necrosis of bone, site unspecified Bipolar affective disorder, remission status unspecified ([facility]) Gastroesophageal reflux disease, unspecified whether esophagitis present Bipolar affective disorder, remission status unspecified ([facility])- Primary Chronic frontal sinusitis Chronic maxillary sinusitis Muscle cramps Hyperlipidemia, unspecified hyperlipidemia type Controlled type 2 diabetes mellitus without complication, without long-term current use of insulin (HCC) Migraine without status migrainosus, not intractable, unspecified migraine type Chronic left-sided low back pain with left-sided sciatica Osteoporosis, unspecified osteoporosis type, unspecified pathological fracture presence Cardiac arrhythmia, unspecified cardiac arrhythmia type- Primary Paroxysmal atrial fibrillation (HCC) Atrial fibrillation Chronic maxillary sinusitis Muscle cramps Bronchiectasis without complication (HCC) Wheezing Bipolar affective disorder, remission status unspecified (HCC) Chronic migraine without aura without status migrainosus, not intractable Chronic left-sided low back pain with left-sided sciatica Controlled type 2 diabetes mellitus without complication, without long-term current use of insulin (HCC)- Primary Moderate major depression (HCC) Major depressive disorder, single episode, moderate AVN (avascular necrosis of bone) (HCC) Aseptic necrosis of bone, site unspecified Bipolar affective disorder, remission status unspecified (HCC) Chronic obstructive pulmonary disease, unspecified COPD type (HCC) Bronchiectasis without complication (HCC) Paroxysmal atrial fibrillation (HCC) Atrial fibrillation Malignant neoplasm (HCC) Other malignant neoplasm of unspecified site Insomnia, unspecified type Bipolar affective disorder, remission status unspecified ([facility])- Primary Moderate major depression (HCC) Major depressive disorder, single episode, moderate Acute pain of left shoulder Chronic obstructive pulmonary disease, unspecified COPD type (HCC) Dysphagia, unspecified type Gastroesophageal reflux disease, unspecified whether esophagitis present Osteoporosis, unspecified osteoporosis type, unspecified pathological fracture presence Prediabetes Other abnormal glucose Abnormal finding of blood chemistry, unspecified Right hip pain- Primary Pain in joint, pelvic region and thigh Closed compression fracture of L2 lumbar vertebra with routine healing, subsequent encounter Osteoporosis, unspecified osteoporosis type, unspecified pathological fracture presence Subarachnoid hemorrhage (HCC) Subarachnoid hemorrhage Ataxia- Primary Lack of coordination Cervical spondylosis with myelopathy Kyphosis of cervical region, unspecified kyphosis type documented in this encounter [facility] note* Diagnosis Chronic maxillary sinusitis- Primary Controlled type 2 diabetes mellitus without complication, without long-term current use of insulin (HCC) Hypothyroidism (acquired) Unspecified hypothyroidism Osteoporosis, unspecified osteoporosis type, unspecified pathological fracture presence Chronic obstructive pulmonary disease, unspecified COPD type (HCC) Eosinophilic asthma Pulmonary eosinophilia AVN (avascular necrosis of bone) ([facility]) Aseptic necrosis of bone, site unspecified Bipolar affective disorder, remission status unspecified ([facility]) Gastroesophageal reflux disease, unspecified whether esophagitis present Bipolar affective disorder, remission status unspecified ([facility])- Primary Chronic frontal sinusitis Chronic maxillary sinusitis Muscle cramps Hyperlipidemia, unspecified hyperlipidemia type Controlled type 2 diabetes mellitus without complication, without long-term current use of insulin (HCC) Migraine without status migrainosus, not intractable, unspecified migraine type Chronic left-sided low back pain with left-sided sciatica Osteoporosis, unspecified osteoporosis type, unspecified pathological fracture presence Cardiac arrhythmia, unspecified cardiac arrhythmia type- Primary Paroxysmal atrial fibrillation (HCC) Atrial fibrillation Chronic maxillary sinusitis Muscle cramps Bronchiectasis without complication (HCC) Wheezing Bipolar affective disorder, remission status unspecified (HCC) Chronic migraine without aura without status migrainosus, not intractable Chronic left-sided low back pain with left-sided sciatica Controlled type 2 diabetes mellitus without complication, without long-term current use of insulin ([facility])- Primary Moderate major depression (HCC) Major depressive disorder, single episode, moderate AVN (avascular necrosis of bone) ([facility]) Aseptic necrosis of bone, site unspecified Bipolar affective disorder, remission status unspecified ([facility]) Chronic obstructive pulmonary disease, unspecified COPD type (HCC) Bronchiectasis without complication (HCC) Paroxysmal atrial fibrillation (HCC) Atrial fibrillation Malignant neoplasm (HCC) Other malignant neoplasm of unspecified site Insomnia, unspecified type Bipolar affective disorder, remission status unspecified ([facility])- Primary Moderate major depression (HCC) Major depressive disorder, single episode, moderate Acute pain of left shoulder Chronic obstructive pulmonary disease, unspecified COPD type (HCC) Dysphagia, unspecified type Gastroesophageal reflux disease, unspecified whether esophagitis present Osteoporosis, unspecified osteoporosis type, unspecified pathological fracture presence Prediabetes Other abnormal glucose Abnormal finding of blood chemistry, unspecified Right hip pain- Primary Pain in joint, pelvic region and thigh Closed compression fracture of L2 lumbar vertebra with routine healing, subsequent encounter Osteoporosis, unspecified osteoporosis type, unspecified pathological fracture presence Subarachnoid hemorrhage (HCC) Subarachnoid hemorrhage Chronic obstructive pulmonary disease, unspecified COPD type (HCC) documented in this encounter [facility] note* Diagnosis Chronic maxillary sinusitis- Primary Controlled type 2 diabetes mellitus without complication, without long-term current use of insulin (HCC) Hypothyroidism (acquired) Unspecified hypothyroidism Osteoporosis, unspecified osteoporosis type, unspecified pathological fracture presence Chronic obstructive pulmonary disease, unspecified COPD type (HCC) Eosinophilic asthma Pulmonary eosinophilia AVN (avascular necrosis of bone) (HCC) Aseptic necrosis of bone, site unspecified Bipolar affective disorder, remission status unspecified (HCC) Gastroesophageal reflux disease, unspecified whether esophagitis present Bipolar affective disorder, remission status unspecified (HCC)- Primary Chronic frontal sinusitis Chronic maxillary sinusitis Muscle cramps Hyperlipidemia, unspecified hyperlipidemia type Controlled type 2 diabetes mellitus without complication, without long-term current use of insulin (HCC) Migraine without status migrainosus, not intractable, unspecified migraine type Chronic left-sided low back pain with left-sided sciatica Osteoporosis, unspecified osteoporosis type, unspecified pathological fracture presence Cardiac arrhythmia, unspecified cardiac arrhythmia type- Primary Paroxysmal atrial fibrillation (HCC) Atrial fibrillation Chronic maxillary sinusitis Muscle cramps Bronchiectasis without complication (HCC) Wheezing Bipolar affective disorder, remission status unspecified (HCC) Chronic migraine without aura without status migrainosus, not intractable Chronic left-sided low back pain with left-sided sciatica Controlled type 2 diabetes mellitus without complication, without long-term current use of insulin (HCC)- Primary Moderate major depression (HCC) Major depressive disorder, single episode, moderate AVN (avascular necrosis of bone) (HCC) Aseptic necrosis of bone, site unspecified Bipolar affective disorder, remission status unspecified (HCC) Chronic obstructive pulmonary disease, unspecified COPD type (HCC) Bronchiectasis without complication (HCC) Paroxysmal atrial fibrillation (HCC) Atrial fibrillation Malignant neoplasm (HCC) Other malignant neoplasm of unspecified site Insomnia, unspecified type Bipolar affective disorder, remission status unspecified (HCC)- Primary Moderate major depression (HCC) Major depressive disorder, single episode, moderate Acute pain of left shoulder Chronic obstructive pulmonary disease, unspecified COPD type (HCC) Dysphagia, unspecified type Gastroesophageal reflux disease, unspecified whether esophagitis present Osteoporosis, unspecified osteoporosis type, unspecified pathological fracture presence Prediabetes Other abnormal glucose Abnormal finding of blood chemistry, unspecified Right hip pain- Primary Pain in joint, pelvic region and thigh Closed compression fracture of L2 lumbar vertebra with routine healing, subsequent encounter Osteoporosis, unspecified osteoporosis type, unspecified pathological fracture presence Subarachnoid hemorrhage (HCC) Subarachnoid hemorrhage Chronic obstructive pulmonary disease, unspecified COPD type (HCC) documented in this encounter [facility] note* Diagnosis Chronic maxillary sinusitis- Primary Controlled type 2 diabetes mellitus without complication, without long-term current use of insulin (HCC) Hypothyroidism (acquired) Unspecified hypothyroidism Osteoporosis, unspecified osteoporosis type, unspecified pathological fracture presence Chronic obstructive pulmonary disease, unspecified COPD type (HCC) Eosinophilic asthma Pulmonary eosinophilia AVN (avascular necrosis of bone) ([facility]) Aseptic necrosis of bone, site unspecified Bipolar affective disorder, remission status unspecified (HCC) Gastroesophageal reflux disease, unspecified whether esophagitis present Bipolar affective disorder, remission status unspecified (HCC)- Primary Chronic frontal sinusitis Chronic maxillary sinusitis Muscle cramps Hyperlipidemia, unspecified hyperlipidemia type Controlled type 2 diabetes mellitus without complication, without long-term current use of insulin (HCC) Migraine without status migrainosus, not intractable, unspecified migraine type Chronic left-sided low back pain with left-sided sciatica Osteoporosis, unspecified osteoporosis type, unspecified pathological fracture presence Cardiac arrhythmia, unspecified cardiac arrhythmia type- Primary Paroxysmal atrial fibrillation (HCC) Atrial fibrillation Chronic maxillary sinusitis Muscle cramps Bronchiectasis without complication (HCC) Wheezing Bipolar affective disorder, remission status unspecified (HCC) Chronic migraine without aura without status migrainosus, not intractable Chronic left-sided low back pain with left-sided sciatica Controlled type 2 diabetes mellitus without complication, without long-term current use of insulin (HCC)- Primary Moderate major depression (HCC) Major depressive disorder, single episode, moderate AVN (avascular necrosis of bone) (HCC) Aseptic necrosis of bone, site unspecified Bipolar affective disorder, remission status unspecified (HCC) Chronic obstructive pulmonary disease, unspecified COPD type (HCC) Bronchiectasis without complication (HCC) Paroxysmal atrial fibrillation (HCC) Atrial fibrillation Malignant neoplasm (HCC) Other malignant neoplasm of unspecified site Insomnia, unspecified type Bipolar affective disorder, remission status unspecified (HCC)- Primary Moderate major depression (HCC) Major depressive disorder, single episode, moderate Acute pain of left shoulder Chronic obstructive pulmonary disease, unspecified COPD type (HCC) Dysphagia, unspecified type Gastroesophageal reflux disease, unspecified whether esophagitis present Osteoporosis, unspecified osteoporosis type, unspecified pathological fracture presence Prediabetes Other abnormal glucose Abnormal finding of blood chemistry, unspecified Right hip pain- Primary Pain in joint, pelvic region and thigh Closed compression fracture of L2 lumbar vertebra with routine healing, subsequent encounter Osteoporosis, unspecified osteoporosis type, unspecified pathological fracture presence Subarachnoid hemorrhage (HCC) Subarachnoid hemorrhage Cervical spondylosis with myelopathy- Primary Acute pancreatitis, unspecified complication status, unspecified pancreatitis type- Primary Acute pancreatitis, unspecified complication status, unspecified pancreatitis type Kyphosis of cervical region, unspecified kyphosis type Controlled type 2 diabetes mellitus without complication, without long-term current use of insulin (HCC) Chronic obstructive pulmonary disease, unspecified COPD type (HCC) Cervical spondylosis with myelopathy Cervical spondylosis with myelopathy documented in this encounter [facility] note* Diagnosis Chronic maxillary sinusitis- Primary Controlled type 2 diabetes mellitus without complication, without long-term current use of insulin ([facility]) Hypothyroidism (acquired) Unspecified hypothyroidism Osteoporosis, unspecified osteoporosis type, unspecified pathological fracture presence Chronic obstructive pulmonary disease, unspecified COPD type (HCC) Eosinophilic asthma Pulmonary eosinophilia AVN (avascular necrosis of bone) (HCC) Aseptic necrosis of bone, site unspecified Bipolar affective disorder, remission status unspecified (HCC) Gastroesophageal reflux disease, unspecified whether esophagitis present Bipolar affective disorder, remission status unspecified ([facility])- Primary Chronic frontal sinusitis Chronic maxillary sinusitis Muscle cramps Hyperlipidemia, unspecified hyperlipidemia type Controlled type 2 diabetes mellitus without complication, without long-term current use of insulin (HCC) Migraine without status migrainosus, not intractable, unspecified migraine type Chronic left-sided low back pain with left-sided sciatica Osteoporosis, unspecified osteoporosis type, unspecified pathological fracture presence Cardiac arrhythmia, unspecified cardiac arrhythmia type- Primary Paroxysmal atrial fibrillation (HCC) Atrial fibrillation Chronic maxillary sinusitis Muscle cramps Bronchiectasis without complication (HCC) Wheezing Bipolar affective disorder, remission status unspecified (HCC) Chronic migraine without aura without status migrainosus, not intractable Chronic left-sided low back pain with left-sided sciatica Controlled type 2 diabetes mellitus without complication, without long-term current use of insulin (HCC)- Primary Moderate major depression (HCC) Major depressive disorder, single episode, moderate AVN (avascular necrosis of bone) (HCC) Aseptic necrosis of bone, site unspecified Bipolar affective disorder, remission status unspecified (HCC) Chronic obstructive pulmonary disease, unspecified COPD type (HCC) Bronchiectasis without complication (HCC) Paroxysmal atrial fibrillation (HCC) Atrial fibrillation Malignant neoplasm (HCC) Other malignant neoplasm of unspecified site Insomnia, unspecified type Bipolar affective disorder, remission status unspecified ([facility])- Primary Moderate major depression (HCC) Major depressive disorder, single episode, moderate Acute pain of left shoulder Chronic obstructive pulmonary disease, unspecified COPD type (HCC) Dysphagia, unspecified type Gastroesophageal reflux disease, unspecified whether esophagitis present Osteoporosis, unspecified osteoporosis type, unspecified pathological fracture presence Prediabetes Other abnormal glucose Abnormal finding of blood chemistry, unspecified Right hip pain- Primary Pain in joint, pelvic region and thigh Closed compression fracture of L2 lumbar vertebra with routine healing, subsequent encounter Osteoporosis, unspecified osteoporosis type, unspecified pathological fracture presence Subarachnoid hemorrhage (HCC) Subarachnoid hemorrhage Cervical spondylosis with myelopathy- Primary Pre-operative cardiovascular examination- Primary Anxiety Anxiety state, unspecified Moderate major depression (HCC) Major depressive disorder, single episode, moderate Cervical spondylosis with myelopathy documented in this encounter [facility] note* Diagnosis Chronic maxillary sinusitis- Primary Controlled type 2 diabetes mellitus without complication, without long-term current use of insulin (HCC) Hypothyroidism (acquired) Unspecified hypothyroidism Osteoporosis, unspecified osteoporosis type, unspecified pathological fracture presence Chronic obstructive pulmonary disease, unspecified COPD type (HCC) Eosinophilic asthma Pulmonary eosinophilia AVN (avascular necrosis of bone) (HCC) Aseptic necrosis of bone, site unspecified Bipolar affective disorder, remission status unspecified ([facility]) Gastroesophageal reflux disease, unspecified whether esophagitis present Bipolar affective disorder, remission status unspecified ([facility])- Primary Chronic frontal sinusitis Chronic maxillary sinusitis Muscle cramps Hyperlipidemia, unspecified hyperlipidemia type Controlled type 2 diabetes mellitus without complication, without long-term current use of insulin (HCC) Migraine without status migrainosus, not intractable, unspecified migraine type Chronic left-sided low back pain with left-sided sciatica Osteoporosis, unspecified osteoporosis type, unspecified pathological fracture presence Cardiac arrhythmia, unspecified cardiac arrhythmia type- Primary Paroxysmal atrial fibrillation (HCC) Atrial fibrillation Chronic maxillary sinusitis Muscle cramps Bronchiectasis without complication (HCC) Wheezing Bipolar affective disorder, remission status unspecified (HCC) Chronic migraine without aura without status migrainosus, not intractable Chronic left-sided low back pain with left-sided sciatica Controlled type 2 diabetes mellitus without complication, without long-term current use of insulin (HCC)- Primary Moderate major depression (HCC) Major depressive disorder, single episode, moderate AVN (avascular necrosis of bone) ([facility]) Aseptic necrosis of bone, site unspecified Bipolar affective disorder, remission status unspecified ([facility]) Chronic obstructive pulmonary disease, unspecified COPD type (HCC) Bronchiectasis without complication (HCC) Paroxysmal atrial fibrillation (HCC) Atrial fibrillation Malignant neoplasm (HCC) Other malignant neoplasm of unspecified site Insomnia, unspecified type Bipolar affective disorder, remission status unspecified ([facility])- Primary Moderate major depression (HCC) Major depressive disorder, single episode, moderate Acute pain of left shoulder Chronic obstructive pulmonary disease, unspecified COPD type (HCC) Dysphagia, unspecified type Gastroesophageal reflux disease, unspecified whether esophagitis present Osteoporosis, unspecified osteoporosis type, unspecified pathological fracture presence Prediabetes Other abnormal glucose Abnormal finding of blood chemistry, unspecified Right hip pain- Primary Pain in joint, pelvic region and thigh Closed compression fracture of L2 lumbar vertebra with routine healing, subsequent encounter Osteoporosis, unspecified osteoporosis type, unspecified pathological fracture presence Subarachnoid hemorrhage (HCC) Subarachnoid hemorrhage Cervical spondylosis with myelopathy- Primary Pre-operative cardiovascular examination- Primary Ataxia Lack of coordination Cervical spondylosis with myelopathy documented in this encounter [facility] note* Diagnosis Chronic maxillary sinusitis- Primary Controlled type 2 diabetes mellitus without complication, without long-term current use of insulin (HCC) Hypothyroidism (acquired) Unspecified hypothyroidism Osteoporosis, unspecified osteoporosis type, unspecified pathological fracture presence Chronic obstructive pulmonary disease, unspecified COPD type (HCC) Eosinophilic asthma Pulmonary eosinophilia AVN (avascular necrosis of bone) ([facility]) Aseptic necrosis of bone, site unspecified Bipolar affective disorder, remission status unspecified ([facility]) Gastroesophageal reflux disease, unspecified whether esophagitis present Bipolar affective disorder, remission status unspecified ([facility])- Primary Chronic frontal sinusitis Chronic maxillary sinusitis Muscle cramps Hyperlipidemia, unspecified hyperlipidemia type Controlled type 2 diabetes mellitus without complication, without long-term current use of insulin (HCC) Migraine without status migrainosus, not intractable, unspecified migraine type Chronic left-sided low back pain with left-sided sciatica Osteoporosis, unspecified osteoporosis type, unspecified pathological fracture presence Cardiac arrhythmia, unspecified cardiac arrhythmia type- Primary Paroxysmal atrial fibrillation (HCC) Atrial fibrillation Chronic maxillary sinusitis Muscle cramps Bronchiectasis without complication (HCC) Wheezing Bipolar affective disorder, remission status unspecified (HCC) Chronic migraine without aura without status migrainosus, not intractable Chronic left-sided low back pain with left-sided sciatica Controlled type 2 diabetes mellitus without complication, without long-term current use of insulin (HCC)- Primary Moderate major depression (HCC) Major depressive disorder, single episode, moderate AVN (avascular necrosis of bone) ([facility]) Aseptic necrosis of bone, site unspecified Bipolar affective disorder, remission status unspecified (HCC) Chronic obstructive pulmonary disease, unspecified COPD type (HCC) Bronchiectasis without complication (HCC) Paroxysmal atrial fibrillation (HCC) Atrial fibrillation Malignant neoplasm (HCC) Other malignant neoplasm of unspecified site Insomnia, unspecified type Bipolar affective disorder, remission status unspecified (HCC)- Primary Moderate major depression (HCC) Major depressive disorder, single episode, moderate Acute pain of left shoulder Chronic obstructive pulmonary disease, unspecified COPD type (HCC) Dysphagia, unspecified type Gastroesophageal reflux disease, unspecified whether esophagitis present Osteoporosis, unspecified osteoporosis type, unspecified pathological fracture presence Prediabetes Other abnormal glucose Abnormal finding of blood chemistry, unspecified Right hip pain- Primary Pain in joint, pelvic region and thigh Closed compression fracture of L2 lumbar vertebra with routine healing, subsequent encounter Osteoporosis, unspecified osteoporosis type, unspecified pathological fracture presence Subarachnoid hemorrhage (HCC) Subarachnoid hemorrhage Cervical spondylosis with myelopathy- Primary Gastroesophageal reflux disease, unspecified whether esophagitis present Hypothyroidism (acquired) Unspecified hypothyroidism Chronic migraine without aura without status migrainosus, not intractable Paroxysmal atrial fibrillation (HCC) Atrial fibrillation documented in this encounter [facility] note* Diagnosis Chronic maxillary sinusitis- Primary Controlled type 2 diabetes mellitus without complication, without long-term current use of insulin (HCC) Hypothyroidism (acquired) Unspecified hypothyroidism Osteoporosis, unspecified osteoporosis type, unspecified pathological fracture presence Chronic obstructive pulmonary disease, unspecified COPD type (HCC) Eosinophilic asthma Pulmonary eosinophilia AVN (avascular necrosis of bone) (HCC) Aseptic necrosis of bone, site unspecified Bipolar affective disorder, remission status unspecified (HCC) Gastroesophageal reflux disease, unspecified whether esophagitis present Bipolar affective disorder, remission status unspecified (HCC)- Primary Chronic frontal sinusitis Chronic maxillary sinusitis Muscle cramps Hyperlipidemia, unspecified hyperlipidemia type Controlled type 2 diabetes mellitus without complication, without long-term current use of insulin (HCC) Migraine without status migrainosus, not intractable, unspecified migraine type Chronic left-sided low back pain with left-sided sciatica Osteoporosis, unspecified osteoporosis type, unspecified pathological fracture presence Cardiac arrhythmia, unspecified cardiac arrhythmia type- Primary Paroxysmal atrial fibrillation (HCC) Atrial fibrillation Chronic maxillary sinusitis Muscle cramps Bronchiectasis without complication (HCC) Wheezing Bipolar affective disorder, remission status unspecified (HCC) Chronic migraine without aura without status migrainosus, not intractable Chronic left-sided low back pain with left-sided sciatica Controlled type 2 diabetes mellitus without complication, without long-term current use of insulin (HCC)- Primary Moderate major depression (HCC) Major depressive disorder, single episode, moderate AVN (avascular necrosis of bone) ([facility]) Aseptic necrosis of bone, site unspecified Bipolar affective disorder, remission status unspecified (HCC) Chronic obstructive pulmonary disease, unspecified COPD type (HCC) Bronchiectasis without complication (HCC) Paroxysmal atrial fibrillation (HCC) Atrial fibrillation Malignant neoplasm (HCC) Other malignant neoplasm of unspecified site Insomnia, unspecified type Bipolar affective disorder, remission status unspecified (HCC)- Primary Moderate major depression (HCC) Major depressive disorder, single episode, moderate Acute pain of left shoulder Chronic obstructive pulmonary disease, unspecified COPD type (HCC) Dysphagia, unspecified type Gastroesophageal reflux disease, unspecified whether esophagitis present Osteoporosis, unspecified osteoporosis type, unspecified pathological fracture presence Prediabetes Other abnormal glucose Abnormal finding of blood chemistry, unspecified Right hip pain- Primary Pain in joint, pelvic region and thigh Closed compression fracture of L2 lumbar vertebra with routine healing, subsequent encounter Osteoporosis, unspecified osteoporosis type, unspecified pathological fracture presence Subarachnoid hemorrhage (HCC) Subarachnoid hemorrhage Generalized weakness- Primary Generalized weakness Primary osteoarthritis of left hip Primary osteoarthritis of both knees Chronic obstructive pulmonary disease, unspecified COPD type (HCC) Right hip pain Pain in joint, pelvic region and thigh Dementia, unspecified dementia severity, unspecified dementia type, unspecified whether behavioral, psychotic, or mood disturbance or anxiety (HCC) Closed compression fracture of L2 lumbar vertebra with routine healing, subsequent encounter documented in this encounter [facility] note* Diagnosis Chronic maxillary sinusitis- Primary Controlled type 2 diabetes mellitus without complication, without long-term current use of insulin (HCC) Hypothyroidism (acquired) Unspecified hypothyroidism Osteoporosis, unspecified osteoporosis type, unspecified pathological fracture presence Chronic obstructive pulmonary disease, unspecified COPD type (HCC) Eosinophilic asthma Pulmonary eosinophilia AVN (avascular necrosis of bone) (HCC) Aseptic necrosis of bone, site unspecified Bipolar affective disorder, remission status unspecified (HCC) Gastroesophageal reflux disease, unspecified whether esophagitis present Bipolar affective disorder, remission status unspecified (HCC)- Primary Chronic frontal sinusitis Chronic maxillary sinusitis Muscle cramps Hyperlipidemia, unspecified hyperlipidemia type Controlled type 2 diabetes mellitus without complication, without long-term current use of insulin (HCC) Migraine without status migrainosus, not intractable, unspecified migraine type Chronic left-sided low back pain with left-sided sciatica Osteoporosis, unspecified osteoporosis type, unspecified pathological fracture presence Cardiac arrhythmia, unspecified cardiac arrhythmia type- Primary Paroxysmal atrial fibrillation (HCC) Atrial fibrillation Chronic maxillary sinusitis Muscle cramps Bronchiectasis without complication (HCC) Wheezing Bipolar affective disorder, remission status unspecified (HCC) Chronic migraine without aura without status migrainosus, not intractable Chronic left-sided low back pain with left-sided sciatica Controlled type 2 diabetes mellitus without complication, without long-term current use of insulin (HCC)- Primary Moderate major depression (HCC) Major depressive disorder, single episode, moderate AVN (avascular necrosis of bone) (HCC) Aseptic necrosis of bone, site unspecified Bipolar affective disorder, remission status unspecified (HCC) Chronic obstructive pulmonary disease, unspecified COPD type (HCC) Bronchiectasis without complication (HCC) Paroxysmal atrial fibrillation (HCC) Atrial fibrillation Malignant neoplasm (HCC) Other malignant neoplasm of unspecified site Insomnia, unspecified type Bipolar affective disorder, remission status unspecified ([facility])- Primary Moderate major depression (HCC) Major depressive disorder, single episode, moderate Acute pain of left shoulder Chronic obstructive pulmonary disease, unspecified COPD type (HCC) Dysphagia, unspecified type Gastroesophageal reflux disease, unspecified whether esophagitis present Osteoporosis, unspecified osteoporosis type, unspecified pathological fracture presence Prediabetes Other abnormal glucose Abnormal finding of blood chemistry, unspecified Right hip pain- Primary Pain in joint, pelvic region and thigh Closed compression fracture of L2 lumbar vertebra with routine healing, subsequent encounter Osteoporosis, unspecified osteoporosis type, unspecified pathological fracture presence Subarachnoid hemorrhage (HCC) Subarachnoid hemorrhage Cervical spondylosis with myelopathy- Primary Closed wedge compression fracture of T12 vertebra with nonunion, subsequent encounter Closed wedge compression fracture of L1 vertebra with nonunion, subsequent encounter documented in this encounter [facility] note* Diagnosis Chronic maxillary sinusitis- Primary Controlled type 2 diabetes mellitus without complication, without long-term current use of insulin (HCC) Hypothyroidism (acquired) Unspecified hypothyroidism Osteoporosis, unspecified osteoporosis type, unspecified pathological fracture presence Chronic obstructive pulmonary disease, unspecified COPD type (HCC) Eosinophilic asthma Pulmonary eosinophilia AVN (avascular necrosis of bone) (HCC) Aseptic necrosis of bone, site unspecified Bipolar affective disorder, remission status unspecified ([facility]) Gastroesophageal reflux disease, unspecified whether esophagitis present Bipolar affective disorder, remission status unspecified ([facility])- Primary Chronic frontal sinusitis Chronic maxillary sinusitis Muscle cramps Hyperlipidemia, unspecified hyperlipidemia type Controlled type 2 diabetes mellitus without complication, without long-term current use of insulin (HCC) Migraine without status migrainosus, not intractable, unspecified migraine type Chronic left-sided low back pain with left-sided sciatica Osteoporosis, unspecified osteoporosis type, unspecified pathological fracture presence Cardiac arrhythmia, unspecified cardiac arrhythmia type- Primary Paroxysmal atrial fibrillation (HCC) Atrial fibrillation Chronic maxillary sinusitis Muscle cramps Bronchiectasis without complication (HCC) Wheezing Bipolar affective disorder, remission status unspecified (HCC) Chronic migraine without aura without status migrainosus, not intractable Chronic left-sided low back pain with left-sided sciatica Controlled type 2 diabetes mellitus without complication, without long-term current use of insulin (HCC)- Primary Moderate major depression (HCC) Major depressive disorder, single episode, moderate AVN (avascular necrosis of bone) (HCC) Aseptic necrosis of bone, site unspecified Bipolar affective disorder, remission status unspecified (HCC) Chronic obstructive pulmonary disease, unspecified COPD type (HCC) Bronchiectasis without complication (HCC) Paroxysmal atrial fibrillation (HCC) Atrial fibrillation Malignant neoplasm (HCC) Other malignant neoplasm of unspecified site Insomnia, unspecified type Bipolar affective disorder, remission status unspecified ([facility])- Primary Moderate major depression (HCC) Major depressive disorder, single episode, moderate Acute pain of left shoulder Chronic obstructive pulmonary disease, unspecified COPD type (HCC) Dysphagia, unspecified type Gastroesophageal reflux disease, unspecified whether esophagitis present Osteoporosis, unspecified osteoporosis type, unspecified pathological fracture presence Prediabetes Other abnormal glucose Abnormal finding of blood chemistry, unspecified Right hip pain- Primary Pain in joint, pelvic region and thigh Closed compression fracture of L2 lumbar vertebra with routine healing, subsequent encounter Osteoporosis, unspecified osteoporosis type, unspecified pathological fracture presence Subarachnoid hemorrhage (HCC) Subarachnoid hemorrhage Anxiety- Primary Anxiety state, unspecified Moderate major depression (HCC) Major depressive disorder, single episode, moderate [facility] in [facility] encounter [facility]* Attachments The following attachments cannot be sent through Care Everywhere. * Sinus Rinse ([place]) documented in [facility] encounterOhioHealthInstructions* Attachments The following attachments cannot be sent through Care Everywhere. * Sinus Rinse ([place]) documented in [facility] Plan of care note* [facility] Details [facility] Disc[facility] -Detention Problems Problem Start Date Status Goals Interventions Wound Care and/or Skin Problems Disciplines: Detention 10/23/2021 Active 1 goal linked to scheduled/documented intervention 1 goal intervention scheduled/documented in this visit Circulation Disciplines: Detention 10/23/2021 Active 1 goal linked to scheduled/documented intervention 1 goal intervention scheduled/documented in this visit Assess and Instruct Home Visit Disciplines: Detention 10/23/2021 Active 1 goal linked to scheduled/documented intervention 4 goal interventions scheduled/documented in this visit Medication Management Disciplines: Detention 10/23/2021 Active 1 goal linked to scheduled/documented intervention 1 goal intervention scheduled/documented in this visit Pain Management Disciplines: Detention 10/23/2021 Active 1 goal linked to scheduled/documented intervention 1 goal intervention scheduled/documented in this visit Assess POC Synopsis Disciplines: Detention 10/23/2021 Active 1 goal linked to scheduled/documented intervention 1 goal intervention scheduled/documented in this visit Goals Goal Associated Problem Outcome Goal Met? Visit Notes Wound/Incision Wound Care and/or Skin Problems No Circulation Circulation No Home Care Plan Assess and Instruct Home Visit No Medications Medication Management No Pain Pain Management No Depression Assessment Assess POC Synopsis No Interventions Intervention Associated Problem/Goal Status Variance Visit Notes Wound/Incision Problem:Wound Care and/or Skin Problems Goal:Wound/Incision Completed Dressings x 2 intact to left hip. Reinforced use of ice and elevation to sites to decrease swelling and pain. She is reluctant to do either. Instruct on Alteration in Circulation Problem:Circulation Goal:Circulation Completed Patient reports: she has not been icing or elevating the leg due to pain when doing so Clinician taught: patient Clinician instructed on: importance of compliance with treatment regimen to assist in healing process. Education provided on use of ice at least 3 times/day for 60 minutes each time and proper elevation of leg. Patient/caregiver is able to teach back 50% of instruction. Falls Problem:Assess and Instruct Home Visit Goal:Home Care Plan Completed Clinician taught: patient 4-10 Patient IS at risk for falls (a score of 6 or greater is a predictor of future falls) and clinician instructed: proper footwear, improved lighting, remove clutter and throw rugs, assistive device usage and keep frequently used items in reach and ambulation with assist Patient/caregiver was able to demonstrate 70% via teachback Safety Problem:Assess and Instruct Home Visit Goal:Home Care Plan Completed Assessed patient vulnerability and home safety risks: No safety concerns Equipment reviewed walker, bath bench Patient at risk for harm or abuse no Discharge Planning Problem:Assess and Instruct Home Visit Goal:Home Care Plan Completed Plan for Next Visit Problem:Assess and Instruct Home Visit Goal:Home Care Plan Completed Follow up education for next visit: post op education , pain management Skilled intervention at next visit: education , wound assessment Instruct Medication Management Problem:Medication Management Goal:Medications Completed Home Visit Med Education: Medication list reconciled. Medication profile and in-home medication list updated with appropriate changes. Discrepanices noted during home visit: none Instructed patient on dosing, purpose, and side effects. Medication education completed today on all medication(s). Patient/caregiver is able to teach back 100% of instruction. Assess Pain Characteristics and Current Pain Regimen and Instruct Methods of Pain Relief Problem:Pain Management Goal:Pain Completed Assess and Address Symptoms of Depression Problem:Assess POC Synopsis Goal:Depression Assessment Completed [facility] Visit Details Visit Type -[facility] [place] t of Care Discipline -Detention Problems Problem Start Date Status Goals Interventions Wound Care and/or Skin Problems Disciplines: Detention 10/23/2021 Active 1 goal linked to scheduled/documented intervention 1 goal intervention scheduled/documented in this visit Circulation Disciplines: Detention 10/23/2021 Active 1 goal linked to scheduled/documented intervention 1 goal intervention scheduled/documented in this visit Assess and Instruct Home Visit Disciplines: Detention 10/23/2021 Active 1 goal linked to scheduled/documented intervention 4 goal interventions scheduled/documented in this visit Medication Management Disciplines: Detention 10/23/2021 Active 1 goal linked to scheduled/documented intervention 1 goal intervention scheduled/documented in this visit Pain Management Disciplines: Detention 10/23/2021 Active 1 goal linked to scheduled/documented intervention 1 goal intervention scheduled/documented in this visit Assess POC Synopsis Disciplines: Detention 10/23/2021 Active 1 goal linked to scheduled/documented intervention 1 goal intervention scheduled/documented in this visit Goals Goal Associated Problem Outcome Goal Met? Visit Notes Wound/Incision Wound Care and/or Skin Problems No Circulation Circulation No Home Care Plan Assess and Instruct Home Visit No Medications Medication Management No Pain Pain Management No Depression Assessment Assess POC Synopsis No Interventions Intervention Associated Problem/Goal Status Variance Visit Notes Wound/Incision Problem:Wound Care and/or Skin Problems Goal:Wound/Incision Completed Dressings x 2 intact to left hip. Reinforced use of ice and elevation to sites to decrease swelling and pain. She is reluctant to do either. Instruct on Alteration in Circulation Problem:Circulation Goal:Circulation Completed Patient reports: she has not been icing or elevating the leg due to pain when doing so Clinician taught: patient Clinician instructed on: importance of compliance with treatment regimen to assist in healing process. Education provided on use of ice at least 3 times/day for 60 minutes each time and proper elevation of leg. Patient/caregiver is able to teach back 50% of instruction. Falls Problem:Assess and Instruct Home Visit Goal:Home Care Plan Completed Clinician taught: patient 4-10 Patient IS at risk for falls (a score of 6 or greater is a predictor of future falls) and clinician instructed: proper footwear, improved lighting, remove clutter and throw rugs, assistive device usage and keep frequently used items in reach and ambulation with assist Patient/caregiver was able to demonstrate 70% via teachback Safety Problem:Assess and Instruct Home Visit Goal:Home Care Plan Completed Assessed patient vulnerability and home safety risks: No safety concerns Equipment reviewed walker, bath bench Patient at risk for harm or abuse no Discharge Planning Problem:Assess and Instruct Home Visit Goal:Home Care Plan Completed Plan for Next Visit Problem:Assess and Instruct Home Visit Goal:Home Care Plan Completed Follow up education for next visit: post op education , pain management Skilled intervention at next visit: education , wound assessment Instruct Medication Management Problem:Medication Management Goal:Medications Completed Home Visit Med Education: Medication list reconciled. Medication profile and in-home medication list updated with appropriate changes. Discrepanices noted during home visit: none Instructed patient on dosing, purpose, and side effects. Medication education completed today on all medication(s). Patient/caregiver is able to teach back 100% of instruction. Assess Pain Characteristics and Current Pain Regimen and Instruct Methods of Pain Relief Problem:Pain Management Goal:Pain Completed Assess and Address Symptoms of Depression Problem:Assess POC Synopsis Goal:Depression Assessment Completed [facility] Visit Details Visit Type -PT Initial Evalu ation Discipline -Physical Therapy Problems Problem Start Date Status Goals Interventions Assess and Instruct Home Visit Disciplines: Physical Therapy 10/24/2021 Active 2 goals linked to scheduled/documented interventions 4 goal interventions scheduled/documented in this visit Mobility Disciplines: Physical Therapy 10/24/2021 Active 1 goal linked to scheduled/documented intervention 1 goal intervention scheduled/documented in this visit Goals Goal Associated Problem Outcome Goal Met? Visit Notes Medications Assess and Instruct Home Visit No Home Care Plan Assess and Instruct Home Visit No Mobility Mobility No Interventions Intervention Associated Problem/Goal Status Variance Visit Notes Instruct Medication Management Problem:Assess and Instruct Home Visit Goal:Medications Scheduled Falls Problem:Assess and Instruct Home Visit Goal:Home Care Plan Scheduled Safety Problem:Assess and Instruct Home Visit Goal:Home Care Plan Scheduled Plan for Next Visit Problem:Assess and Instruct Home Visit Goal:Home Care Plan Scheduled Instruct Mobility Problem:Mobility Goal:Mobility Scheduled documented in this encounter [facility] home Plan of care note* Visit Details Visit Type -SN [facility] PRN/[facility] Visit Discipline -Detention Problems Problem Start Date Status Goals Interventions Wound Care and/or Skin Problems Disciplines: Detention 10/23/2021 Active 1 goal linked to scheduled/documented intervention 1 goal intervention scheduled/documented in this visit Circulation Disciplines: Detention 10/23/2021 Active 1 goal linked to scheduled/documented intervention 1 goal intervention scheduled/documented in this visit Assess and Instruct Home Visit Disciplines: Detention 10/23/2021 Active 1 goal linked to scheduled/documented intervention 4 goal interventions scheduled/documented in this visit Medication Management Disciplines: Detention 10/23/2021 Active 1 goal linked to scheduled/documented intervention 1 goal intervention scheduled/documented in this visit Pain Management Disciplines: Detention 10/23/2021 Active 1 goal linked to scheduled/documented intervention 1 goal intervention scheduled/documented in this visit Assess POC Synopsis Disciplines: Detention 10/23/2021 Active 1 goal linked to scheduled/documented intervention 1 goal intervention scheduled/documented in this visit Lab & Diagnostics Disciplines: Detention 10/28/2021 Active - 1 problem intervention scheduled/documented in this visit Goals Goal Associated Problem Outcome Goal Met? Visit Notes Wound/Incision Wound Care and/or Skin Problems No Circulation Circulation No Home Care Plan Assess and Instruct Home Visit No Medications Medication Management No Pain Pain Management No Depression Assessment Assess POC Synopsis No Interventions Intervention Associated Problem/Goal Status Variance Visit Notes Wound/Incision Problem:Wound Care and/or Skin Problems Goal:Wound/Incision Completed Patient reports: dressings intact Clinician taught: patient Clinician instructed on: when to call SN Patient/caregiver is able to teach back/demonstrate given instruction including signs and symptoms of infection.. Instruct on Alteration in Circulation Problem:Circulation Goal:Circulation Completed Patient reports: lower leg edema Clinician taught: patient and caregiver Clinician instructed on: ice and elevation Patient/caregiver is able to teach back 75% of instruction. Falls Problem:Assess and Instruct Home Visit Goal:Home Care Plan Completed Clinician taught: patient 4-10 Patient IS at risk for falls (a score of 6 or greater is a predictor of future falls) and clinician instructed: proper footwear, improved lighting, remove clutter and throw rugs, safe cord/tubing management (O2, IV, Electrical, Payton), assistive device usage and keep frequently used items in reach Patient/caregiver was able to demonstrate 75% via teachback Safety Problem:Assess and Instruct Home Visit Goal:Home Care Plan Completed Assessed patient vulnerability and home safety risks: Yes Equipment reviewed walker Patient at risk for harm or abuse No Family members involved in safety plan for Level 2 or 3 Discharge Planning Problem:Assess and Instruct Home Visit Goal:Home Care Plan Completed Home Visit DC Planning: Spoke with patient about DC planning. Assessed for limited ambulation related to post-op pain and weakness DC will occur when: patient/caregiver can teach back care Anticipate DC: Early Patient and/or caregiver response to discharge planning education: Agree Plan for Next Visit Problem:Assess and Instruct Home Visit Goal:Home Care Plan Completed Follow up education for next visit: Medications Skilled intervention at next visit: CP/wound assesment. Instruct Medication Management Problem:Medication Management Goal:Medications Completed Home Visit Med Education: Medication list reconciled. Medication profile and in-home medication list updated with appropriate changes. Discrepanices noted during home visit: none Instructed patient on dosing, purpose, and side effects. Medication education completed today on all medication(s). Patient/caregiver is able to teach back 75% of instruction. Assess Pain Characteristics and Current Pain Regimen and Instruct Methods of Pain Relief Problem:Pain Management Goal:Pain Completed Assess and Address Symptoms of Depression Problem:Assess POC Synopsis Goal:Depression Assessment Completed Collect lab specimens Problem:Lab & Diagnostics Completed [facility] Visit Details Visit Type -[employer] Routine Visi t Discipline -Physical Therapy Problems Problem Start Date Status Goals Interventions Assess and Instruct Home Visit Disciplines: Physical Therapy 10/24/2021 Active 2 goals linked to scheduled/documented interventions 4 goal interventions scheduled/documented in this visit Mobility Disciplines: Physical Therapy 10/24/2021 Active 1 goal linked to scheduled/documented intervention 1 goal intervention scheduled/documented in this visit Goals Goal Associated Problem Outcome Goal Met? Visit Notes Medications Assess and Instruct Home Visit No Home Care Plan Assess and Instruct Home Visit No Mobility Mobility No Interventions Intervention Associated Problem/Goal Status Variance Visit Notes Instruct Medication Management Problem:Assess and Instruct Home Visit Goal:Medications Completed Home Visit Med Education: Medication list reconciled. Medication profile and in-home medication list updated with appropriate changes. Discrepanices noted during home visit: none Instructed patient on dosing, purpose, and side effects. Medication education completed today on all medication(s). Patient/caregiver is able to teach back 100% of instruction. Falls Problem:Assess and Instruct Home Visit Goal:Home Care Plan Completed Clinician taught: patient 1-3 Patient is NOT at risk for falls and clinician instructed: proper footwear and assistive device usage and L THR Patient/caregiver was able to demonstrate 100% via teachback Safety Problem:Assess and Instruct Home Visit Goal:Home Care Plan Completed Assessed patient vulnerability and home safety risks: exiting home Equipment reviewed FWW/SPC Patient at risk for harm or abuse none Family members involved in safety plan for self Plan for Next Visit Problem:Assess and Instruct Home Visit Goal:Home Care Plan Completed Follow up education for next visit: to progress with walking program Skilled intervention at next visit: to improve with gait transfer stability and exiting home Instruct Mobility Problem:Mobility Goal:Mobility Completed Patient reports: progressing with self task as needed Clinician taught: patient Clinician instructed on: importance o fusing FWW or SPC Patient/caregiver is able to teach back 100% of instruction. [facility] Visit Details Visit Type -[facility] Routine Discipline -Detention Problems Problem Start Date Status Goals Interventions Assess and Instruct Home Visit Disciplines: Detention 10/23/2021 Active 1 goal linked to scheduled/documented intervention 4 goal interventions scheduled/documented in this visit Medication Management Disciplines: Detention 10/23/2021 Active 1 goal linked to scheduled/documented intervention 1 goal intervention scheduled/documented in this visit Pain Management Disciplines: Detention 10/23/2021 Active 1 goal linked to scheduled/documented intervention 1 goal intervention scheduled/documented in this visit Lab & Diagnostics Disciplines: Detention 10/28/2021 Active - 1 problem intervention scheduled/documented in this visit Goals Goal Associated Problem Outcome Goal Met? Visit Notes Home Care Plan Assess and Instruct Home Visit No Medications Medication Management No Pain Pain Management No Interventions Intervention Associated Problem/Goal Status Variance Visit Notes Falls Problem:Assess and Instruct Home Visit Goal:Home Care Plan Completed Clinician taught: patient 4-10 Patient IS at risk for falls (a score of 6 or greater is a predictor of future falls) and clinician instructed: proper footwear, improved lighting, remove clutter and throw rugs, safe cord/tubing management (O2, IV, Electrical, Payton), non-slip mats in tubs/showers, handrails/grab bar placement, assistive device usage, keep frequently used items in reach and emergency response system and/or keep phone on you Patient/caregiver was able to demonstrate % via teachback Safety Problem:Assess and Instruct Home Visit Goal:Home Care Plan Completed Discharge Planning Problem:Assess and Instruct Home Visit Goal:Home Care Plan Completed Plan for Next Visit Problem:Assess and Instruct Home Visit Goal:Home Care Plan Completed Follow up education for next visit: Skilled intervention at next visit: Instruct Medication Management Problem:Medication Management Goal:Medications Completed Home Visit Med Education: Medication list reconciled. Medication profile and in-home medication list updated with appropriate changes. Discrepanices noted during home visit: none Instructed patient on dosing, purpose, and side effects. Medication education completed today on all medication(s). Patient/caregiver is able to teach back 100% of instruction. Assess Pain Characteristics and Current Pain Regimen and Instruct Methods of Pain Relief Problem:Pain Management Goal:Pain Completed Collect lab specimens Problem:Lab & Diagnostics Completed [facility] Visit Details Visit Type -[employer] Routine Visi t Discipline -Physical Therapy Problems Problem Start Date Status Goals Interventions Assess and Instruct Home Visit Disciplines: Physical Therapy 10/24/2021 Active 3 goals linked to scheduled/documented interventions 4 goal interventions scheduled/documented in this visit Disease-Specific Rehabilitation Disciplines: Physical Therapy 10/24/2021 Active 1 goal linked to scheduled/documented intervention Mobility Disciplines: Physical Therapy 10/24/2021 Active 1 goal linked to scheduled/documented intervention 1 goal intervention scheduled/documented in this visit Goals Goal Associated Problem Outcome Goal Met? Visit Notes Pain Assess and Instruct Home Visit Partially Met No Medications Assess and Instruct Home Visit Met No Home Care Plan Assess and Instruct Home Visit Met No Balance Disease-Specific Rehabilitation Partially Met No Mobility Mobility Met No Interventions Intervention Associated Problem/Goal Status Variance Visit Notes Instruct Medication Management Problem:Assess and Instruct Home Visit Goal:Medications Completed Home Visit Med Education: Medication list reconciled. Medication profile and in-home medication list updated with appropriate changes. Discrepanices noted during home visit: none Instructed patient on dosing, purpose, and side effects. Medication education completed today on all medication(s). Patient/caregiver is able to teach back 100% of instruction. Falls Problem:Assess and Instruct Home Visit Goal:Home Care Plan Completed Clinician taught: patient 1-3 Patient is NOT at risk for falls and clinician instructed: assistive device usage Patient/caregiver was able to demonstrate 100% via teachback Safety Problem:Assess and Instruct Home Visit Goal:Home Care Plan Completed Assessed patient vulnerability and home safety risks: exiting home Equipment reviewed FWW/SPC Patient at risk for harm or abuse none Family members involved in safety plan for friend Plan for Next Visit Problem:Assess and Instruct Home Visit Goal:Home Care Plan Completed Follow up education for next visit: to progress with walking progam Skilled intervention at next visit: to progress with gait transfers and balance Instruct Mobility Problem:Mobility Goal:Mobility Completed Patient reports: stairs Clinician taught: importance of using SPC Clinician instructed on: Patient/caregiver is able to teach back 100% of instruction. [facility] Visit Details Visit Type -[facility] Missed Vi sit Discipline -Detention Problems Problem Start Date Status Goals Interventions Assess and Instruct Home Visit Disciplines: Detention 10/23/2021 Active 1 goal linked to scheduled/documented intervention 4 goal interventions scheduled/documented in this visit Medication Management Disciplines: Detention 10/23/2021 Active 1 goal linked to scheduled/documented intervention 1 goal intervention scheduled/documented in this visit Pain Management Disciplines: Detention 10/23/2021 Active 1 goal linked to scheduled/documented intervention 1 goal intervention scheduled/documented in this visit Lab & Diagnostics Disciplines: Detention 10/28/2021 Active - 1 problem intervention scheduled/documented in this visit Goals Goal Associated Problem Outcome Goal Met? Visit Notes Home Care Plan Assess and Instruct Home Visit No Medications Medication Management No Pain Pain Management No Interventions Intervention Associated Problem/Goal Status Variance Visit Notes Falls Problem:Assess and Instruct Home Visit Goal:Home Care Plan Scheduled Safety Problem:Assess and Instruct Home Visit Goal:Home Care Plan Scheduled Discharge Planning Problem:Assess and Instruct Home Visit Goal:Home Care Plan Scheduled Plan for Next Visit Problem:Assess and Instruct Home Visit Goal:Home Care Plan Scheduled Instruct Medication Management Problem:Medication Management Goal:Medications Scheduled Assess Pain Characteristics and Current Pain Regimen and Instruct Methods of Pain Relief Problem:Pain Management Goal:Pain Scheduled Collect lab specimens Problem:Lab & Diagnostics Scheduled [facility] Visit Details Visit Type -[facility] t of Care Discipline -Detention Problems Problem Start Date Status Goals Interventions Wound Care and/or Skin Problems Disciplines: Detention 10/23/2021 Active 1 goal linked to scheduled/documented intervention 1 goal intervention scheduled/documented in this visit Circulation Disciplines: Detention 10/23/2021 Active 1 goal linked to scheduled/documented intervention 1 goal intervention scheduled/documented in this visit Assess and Instruct Home Visit Disciplines: Detention 10/23/2021 Active 1 goal linked to scheduled/documented intervention 4 goal interventions scheduled/documented in this visit Medication Management Disciplines: Detention 10/23/2021 Active 1 goal linked to scheduled/documented intervention 1 goal intervention scheduled/documented in this visit Pain Management Disciplines: Detention 10/23/2021 Active 1 goal linked to scheduled/documented intervention 1 goal intervention scheduled/documented in this visit Assess POC Synopsis Disciplines: Detention 10/23/2021 Active 1 goal linked to scheduled/documented intervention 1 goal intervention scheduled/documented in this visit Goals Goal Associated Problem Outcome Goal Met? Visit Notes Wound/Incision Wound Care and/or Skin Problems No Circulation Circulation No Home Care Plan Assess and Instruct Home Visit No Medications Medication Management No Pain Pain Management No Depression Assessment Assess POC Synopsis No Interventions Intervention Associated Problem/Goal Status Variance Visit Notes Wound/Incision Problem:Wound Care and/or Skin Problems Goal:Wound/Incision Completed Dressings x 2 intact to left hip. Reinforced use of ice and elevation to sites to decrease swelling and pain. She is reluctant to do either. Instruct on Alteration in Circulation Problem:Circulation Goal:Circulation Completed Patient reports: she has not been icing or elevating the leg due to pain when doing so Clinician taught: patient Clinician instructed on: importance of compliance with treatment regimen to assist in healing process. Education provided on use of ice at least 3 times/day for 60 minutes each time and proper elevation of leg. Patient/caregiver is able to teach back 50% of instruction. Falls Problem:Assess and Instruct Home Visit Goal:Home Care Plan Completed Clinician taught: patient 4-10 Patient IS at risk for falls (a score of 6 or greater is a predictor of future falls) and clinician instructed: proper footwear, improved lighting, remove clutter and throw rugs, assistive device usage and keep frequently used items in reach and ambulation with assist Patient/caregiver was able to demonstrate 70% via teachback Safety Problem:Assess and Instruct Home Visit Goal:Home Care Plan Completed Assessed patient vulnerability and home safety risks: No safety concerns Equipment reviewed walker, bath bench Patient at risk for harm or abuse no Discharge Planning Problem:Assess and Instruct Home Visit Goal:Home Care Plan Completed Plan for Next Visit Problem:Assess and Instruct Home Visit Goal:Home Care Plan Completed Follow up education for next visit: post op education , pain management Skilled intervention at next visit: education , wound assessment Instruct Medication Management Problem:Medication Management Goal:Medications Completed Home Visit Med Education: Medication list reconciled. Medication profile and in-home medication list updated with appropriate changes. Discrepanices noted during home visit: none Instructed patient on dosing, purpose, and side effects. Medication education completed today on all medication(s). Patient/caregiver is able to teach back 100% of instruction. 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 Visit Notes Medications Assess and Instruct Home Visit No Home Care Plan Assess and Instruct Home Visit No Mobility Mobility No Interventions Intervention Associated Problem/Goal Status Variance Visit Notes Instruct Medication Management Problem:Assess and Instruct Home Visit Goal:Medications Completed Home Visit Med Education: Medication list reconciled. Medication profile and in-home medication list updated with appropriate changes. Discrepanices noted during home visit: none Instructed patient on dosing, purpose, and side effects. Medication education completed today on all medication(s). Patient/caregiver is able to teach back 100% of instruction. Falls Problem:Assess and Instruct Home Visit Goal:Home Care Plan Completed Clinician taught: patient 1-3 Patient is NOT at risk for falls and clinician instructed: improved lighting, remove clutter and throw rugs and assistive device usage Patient/caregiver was able to demonstrate 100% via teachback Safety Problem:Assess and Instruct Home Visit Goal:Home Care Plan Completed Assessed patient vulnerability and home safety risks: exiting home Equipment reviewed SPC Patient at risk for harm or abuse none Family members involved in safety plan for friend Plan for Next Visit Problem:Assess and Instruct Home Visit Goal:Home Care Plan Completed Follow up education for next visit: to progress with HEP and walking program Skilled intervention at next visit: to DC to HEP Instruct Mobility Problem:Mobility Goal:Mobility Completed Patient reports: progressing with mobiliy in and outside of home Clinician taught: patient Clinician instructed on: importance of using SPC at all times Patient/caregiver is able to teach back 100% of instruction. 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 Visit Notes Medications Assess and Instruct Home Visit No Home Care Plan Assess and Instruct Home Visit No Mobility Mobility No Interventions Intervention Associated Problem/Goal Status Variance Visit Notes Instruct Medication Management Problem:Assess and Instruct Home Visit Goal:Medications Completed Home Visit Med Education: Medication list reconciled. Medication profile and in-home medication list updated with appropriate changes. Discrepanices noted during home visit: none Instructed patient on dosing, purpose, and side effects. Medication education completed today on all medication(s). Patient/caregiver is able to teach back 100% of instruction. Falls Problem:Assess and Instruct Home Visit Goal:Home Care Plan Completed Clinician taught: patient 1-3 Patient is NOT at risk for falls and clinician instructed: improved lighting, remove clutter and throw rugs and assistive device usage Patient/caregiver was able to demonstrate 100% via teachback Safety Problem:Assess and Instruct Home Visit Goal:Home Care Plan Completed Assessed patient vulnerability and home safety risks: exiting home Equipment reviewed SPC Patient at risk for harm or abuse none Family members involved in safety plan for friend Plan for Next Visit Problem:Assess and Instruct Home Visit Goal:Home Care Plan Completed Follow up education for next visit: to progress with HEP and walking program Skilled intervention at next visit: to DC to HEP Instruct Mobility Problem:Mobility Goal:Mobility Completed Patient reports: progressing with mobiliy in and outside of home Clinician taught: patient Clinician instructed on: importance of using SPC at all times Patient/caregiver is able to teach back 100% of instruction. 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 Visit Notes Medications Assess and Instruct Home Visit No Home Care Plan Assess and Instruct Home Visit No Mobility Mobility No Interventions Intervention Associated Problem/Goal Status Variance Visit Notes Instruct Medication Management Problem:Assess and Instruct Home Visit Goal:Medications Completed Home Visit Med Education: Medication list reconciled. Medication profile and in-home medication list updated with appropriate changes. Discrepanices noted during home visit: none Instructed patient on dosing, purpose, and side effects. Medication education completed today on all medication(s). Patient/caregiver is able to teach back 100% of instruction. Falls Problem:Assess and Instruct Home Visit Goal:Home Care Plan Completed Clinician taught: patient 1-3 Patient is NOT at risk for falls and clinician instructed: improved lighting, remove clutter and throw rugs and assistive device usage Patient/caregiver was able to demonstrate 100% via teachback Safety Problem:Assess and Instruct Home Visit Goal:Home Care Plan Completed Assessed patient vulnerability and home safety risks: none Equipment reviewed SPC Patient at risk for harm or abuse none Family members involved in safety plan for friend Plan for Next Visit Problem:Assess and Instruct Home Visit Goal:Home Care Plan Completed Follow up education for next visit: to progress with HEP and walking program Skilled intervention at next visit: to DC to HEP Instruct Mobility Problem:Mobility Goal:Mobility Completed Patient reports: progressing with walking outside Clinician taught: patient Clinician instructed on: importance of walking porgram Patient/caregiver is able to teach back 100% of instruction. [facility] Visit Details Visit Type -SN HH OASIS Disc harge Discipline -Detention Problems Problem Start Date Status Goals Interventions Wound Care and/or Skin Problems Disciplines: Detention 10/23/2021 Resolved on 11/07/2021 1 goal linked to scheduled/documented intervention Circulation Disciplines: Detention 10/23/2021 Resolved on 11/07/2021 1 goal linked to scheduled/documented intervention Assess and Instruct Home Visit Disciplines: Detention 10/23/2021 Resolved on 11/07/2021 1 goal linked to scheduled/documented intervention 4 goal interventions scheduled/documented in this visit Medication Management Disciplines: Detention 10/23/2021 Resolved on 11/07/2021 1 goal linked to scheduled/documented intervention 1 goal intervention scheduled/documented in this visit Pain Management Disciplines: Detention 10/23/2021 Resolved on 11/07/2021 1 goal linked to scheduled/documented intervention 1 goal intervention scheduled/documented in this visit Assess POC Synopsis Disciplines: Detention 10/23/2021 Resolved on 11/07/2021 1 goal linked to scheduled/documented intervention Lab & Diagnostics Disciplines: Detention 10/28/2021 Resolved on 11/07/2021 - 1 problem intervention scheduled/documented in this visit Goals Goal Associated Problem Outcome Goal Met? Visit Notes Wound/Incision Wound Care and/or Skin Problems Completed Yes Circulation Circulation Completed Yes Home Care Plan Assess and Instruct Home Visit Completed Yes Medications Medication Management Completed Yes Pain Pain Management Completed Yes Depression Assessment Assess POC Synopsis Completed Yes Interventions Intervention Associated Problem/Goal Status Variance Visit Notes Falls Problem:Assess and Instruct Home Visit Goal:Home Care Plan Completed Clinician taught: patient 4-10 Patient IS at risk for falls (a score of 6 or greater is a predictor of future falls) and clinician instructed: proper footwear and cane Patient/caregiver was able to demonstrate 100% via teachback Safety Problem:Assess and Instruct Home Visit Goal:Home Care Plan Completed Assessed patient vulnerability and home safety risks: yes Equipment reviewed cane Patient at risk for harm or abuse no Family members involved in safety plan for Level 2 or 3 na Discharge Planning Problem:Assess and Instruct Home Visit Goal:Home Care Plan Completed Home Visit DC Planning: Spoke with patient about DC planning. Assessed for limited ambulation related to left hip surgeries DC will occur when: patient/caregiver is able to demonstrate independence in care Anticipate DC: On time Patient and/or caregiver response to discharge planning education: verbalized an understanding Plan for Next Visit Problem:Assess and Instruct Home Visit Goal:Home Care Plan Completed Follow up education for next visit: na Skilled intervention at next visit: na Instruct Medication Management Problem:Medication Management Goal:Medications Completed Home Visit Med Education: Medication list reconciled. Medication profile and in-home medication list updated with appropriate changes. Discrepanices noted during home visit: none Instructed patient on dosing, purpose, and side effects. Medication education completed today on oxycodone medication(s). Patient/caregiver is able to teach back 100% of instruction. 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 Visit Notes Medications Assess and Instruct Home Visit No Home Care Plan Assess and Instruct Home Visit No Mobility Mobility No Interventions Intervention Associated Problem/Goal Status Variance Visit Notes Instruct Medication Management Problem:Assess and Instruct Home Visit Goal:Medications Completed Home Visit Med Education: Medication list reconciled. Medication profile and in-home medication list updated with appropriate changes. Discrepanices noted during home visit: none Instructed patient on dosing, purpose, and side effects. Medication education completed today on all medication(s). Patient/caregiver is able to teach back 100% of instruction. Falls Problem:Assess and Instruct Home Visit Goal:Home Care Plan Completed Clinician taught: patient 1-3 Patient is NOT at risk for falls and clinician instructed: improved lighting, remove clutter and throw rugs and assistive device usage Patient/caregiver was able to demonstrate 100% via teachback Safety Problem:Assess and Instruct Home Visit Goal:Home Care Plan Completed Assessed patient vulnerability and home safety risks: none Equipment reviewed SPC Patient at risk for harm or abuse none Family members involved in safety plan for friend Plan for Next Visit Problem:Assess and Instruct Home Visit Goal:Home Care Plan Completed Follow up education for next visit: to progress with HEP and walking program Skilled intervention at next visit: to DC to HEP Instruct Mobility Problem:Mobility Goal:Mobility Completed Patient reports: progressing with walking outside Clinician taught: patient Clinician instructed on: importance of walking porgram Patient/caregiver is able to teach back 100% of instruction. [facility] Actions Initial evaluation complete to determine need for skilled therapy services. Assessed strength, balance, endurance, transfers, gait. Educated patient on safety with all mobility in home. Discussed POC and goals. Patient agrees to POC. Narratives Reason for Referral: L THR w ith Dr Valencia Disciplines Referred:SN/PT Inpatient Stay:10/21/21 - 10/22/21 Medical Hx: GERD, DM2, COPD, OA, anxiety, depression, COPD, CAD, hypothyroidism, anemia, HTN, skin CA, L RTC repair, cervical CA PLOF: Lives alone in small apt. No SRINIVAS. Mod I with use of SOC x 1.5 yrs. Retired and drives in community. No reported falls DME:grab bars, cane, FWW, RTS, bed rail Caregiver:self. TITI Current Functional Level:cga for all mobility in home with FWW Planned PT Frequency:1w1 2w2 Precautions:WBAT LLE Fall Risk: TUG=19 Medication Issues: NA Patient Preferences:Call to schedule Upcoming Appts:11/08/21 Jovanna Valencia MD [facility] Actions Dressing CDI. Educated on pa in management/ice/elevation and when to call nursing. Reviewed calender with patient COVID 19 precautions and proper handwashing education provided to patient, voiced understanding. Visit vertification not signed d/t COVID 19 precautions assessment, med's reviewed, education provided on safety with ambulation, patient voiced understanding. report given to CM Narratives Homebound Status Reason(s) patient is Homebound: unsteady gait/poor balance Type of home :apartment Type of support and available caregivers: self [facility] Actions Patient stated she was doing good and did not want a visit today. Stated she will be ready for a visit next week. documented in this encounter [facility] for visit Narrative* Auth/Cert Specialty Diagnoses / Procedures Referred By Melissa taveras Referred To Contact Referral ID Status Reason Start Date Expiration Date Visits Re quested Visits Authorized [id number] 1 1 [facility] for visit Narrative* Auth/Cert (Routine) Specialty Diagnoses / Procedures Referred By Melissa t Referred To Contact Diagnoses Acute pancreatitis, unspecified complication status, unspecified pancreatitis type Hyponatremia, pancreatitis Referral ID Status Reason Start Date Expiration Date Visits Re quested Visits Authorized [id number] 1 1 [facility] for visit Narrative* Auth/Cert (Routine) Specialty Diagnoses / Procedures Referred By Melissa t Referred To Contact Diagnoses Generalized weakness Generalized weakness, fatigue, frequent falls, bilateral hip contusions Referral ID Status Reason Start Date Expiration Date Visits Re quested Visits Authorized [id number] 1 1 [facility] Summary Purpose Family History No Family History Records Found Relationship Condition Age at Onset Recorded Date/T hari father Asthma Unknown Cardiac disease Unknown High blood cholesterol Unknown Disorder of respiratory system Unknown Multiple allergies Unknown mother Anxiety Unknown Arthritis Unknown Disorder of intestine Unknown Malignant neoplasm of colon Unknown Myocardial infarction Unknown Hypertension Unknown Advance Directives No Advanced Directives Records FoundDocuments on File Type Date Recorded 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 Advance Directives and Living Will Documents on File Type Date Recorded 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 Advance Directives and Livin g Will 08/29/2021 3:26 PM Documents on File Type Date Recorded 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 Advance Directives and Livin g Will 10/21/2021 8:18 AM Latest Code Status on File Code Status Date Activated Date Inactivated Comments Full Code 10/21/2021 12:14 PM 10/22/2021 2:58 PM Documents on File Type Date Recorded 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 Advance Directives and Livin g Will 10/21/2021 8:18 AM Latest Code Status on File Code Status Date Activated Date Inactivated Comments Full Code 10/21/2021 12:14 PM 10/22/2021 2:58 PM Advance Directive Response Recorded Date/ Time Advance Directives No April 2:38pm Living Will No January 12, 2021 1 2:57pm Power of Global Sourcing Manager No January 12, 2021 12:57pm Latest Code Status on File Date Activated Date Inactivated Comments 10/21/2021 12:14 PM 10/22/2021 2:58 PM Latest Code Status on File Date Activated Date Inactivated Comments 10/21/2021 12:14 PM 10/22/2021 2:58 PM Latest Code Status on File Code Status Date Activated Date Inactivated Comments Full Code 10/21/2021 12:14 PM 10/22/2021 2:58 PM Latest Code Status on File Code Status Date Activated Date Inactivated Comments Full Code 10/21/2021 12:14 PM 10/22/2021 2:58 PM Date Activated Date Inactivated Comments 10/21/2021 12:14 PM 10/22/2021 2:58 PM Date Activated Date Inactivated Comments 10/21/2021 12:14 PM 10/22/2021 2:58 PM Date Activated Date Inactivated Comments 05/31/2024 6:57 PM 06/02/2024 9:40 PM Date Activated Date Inactivated Comments 10/21/2021 12:14 PM 10/22/2021 2:58 PM Date Activated Date Inactivated Comments 05/31/2024 6:57 PM 06/02/2024 9:40 PM Date Activated Date Inactivated Comments 10/21/2021 12:14 PM 10/22/2021 2:58 PM Date Activated Date Inactivated Comments 10/25/2024 12:37 AM Date Activated Date Inactivated Comments 05/31/2024 6:57 PM 06/02/2024 9:40 PM Date Activated Date Inactivated Comments 10/21/2021 12:14 PM 10/22/2021 2:58 PM Documents on File Type Date Recorded 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 Advance Directives and Livin g Will 10/27/2024 3:39 PM Power of Global Sourcing Manager 10/27/2024 3:38 PM Date Activated Date Inactivated Comments 10/25/2024 12:37 AM 10/27/2024 8:25 PM Date Activated Date Inactivated Comments 05/31/2024 6:57 PM 06/02/2024 9:40 PM Date Activated Date Inactivated Comments 10/21/2021 12:14 PM 10/22/2021 2:58 PM Documents on File Type Date Recorded 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 Advance Directives and Livin g Will 10/27/2024 3:39 PM Power of Global Sourcing Manager 10/27/2024 3:38 PM Date Activated Date Inactivated Comments 10/25/2024 12:37 AM 10/27/2024 8:25 PM Date Activated Date Inactivated Comments 12/04/2024 4:25 AM 12/13/2024 4:19 PM Date Activated Date Inactivated Comments 10/25/2024 12:37 AM 10/27/2024 8:25 PM Date Activated Date Inactivated Comments 05/31/2024 6:57 PM 06/02/2024 9:40 PM Date Activated Date Inactivated Comments 10/21/2021 12:14 PM 10/22/2021 2:58 PM Date Activated Date Inactivated Comments 12/04/2024 4:25 AM 12/13/2024 4:19 PM Date Activated Date Inactivated Comments 10/25/2024 12:37 AM 10/27/2024 8:25 PM Date Activated Date Inactivated Comments 05/31/2024 6:57 PM 06/02/2024 9:40 PM Date Activated Date Inactivated Comments 10/21/2021 12:14 PM 10/22/2021 2:58 PM Discharge Instructions * Discharge Instr - Other Orders - Ying Macdonald, CHENCHO - 03/24/2018 2:54 PM EDT After Surgery and Anesthesia You must have an adult drive you home from the hospital and stay with you for [address], operate machinery, cook or return to work for 24 hours or a as directed by your surgeon Do not make important personal or legal decisions or sign legal forms for 24 hours General anesthesia you may have a dry, raspy or scratchy throat. Throat lozenges or gargles may give relief Resume home medications Diet & Bowel Activity Begin with clear liquids and light foods, such as jello, lemon [place] soda, kevin tommie. Progress to your normal diet if you are not nauseated No alcoholic beverages for 24 hours after surgery or while you are taking prescription pain medicine. If you have diabetes, check with your family doctor about your diet and medicine To help avoid constipation, eat a high fiber diet and drink 6-8 glasses of water each day. Stool softeners or a mild laxative may be needed if you do not have a bowel movement within 3 days of your surgery. Call your doctor for more instructions or pharmacist Activity Limit your activity for the first 24 hours. You may feel dizzy and tired from anesthesia. Be careful as you walk or climb stairs. If you have an incision, avoid activities that stress your incision Do not drive, return to work, play sports or do heavy activities until permitted by your doctor Incision care If you have a bandage on your incision, it may be removed 24 hours after surgery unless instructed otherwise by your doctor. You may shower after 24 hours. You may let water run over your incision but don t let it flow directly on the incision after your shower, pat your incision dry. If small paper-like strips are on your incision, do not remove them. You can shower with them on; pat them dry. They will either fall off or will be removed by your surgeon at your follow-up visit. If stitches/ronen are present, they will be removed in the office And ice bag may be used on the incisional site, or the point of pain unless your surgeons has said not to. Alternate use of ice (20 minutes of every hour) DO NOT place ice directly on the skin. Wrap in a thin towel. Call your surgeon right away if you have: Heavy or persistent bleeding Persistent nausea or vomiting lasting more than 6 hours Edges of incision Signs of infections: a fever over 101 degrees, increased swelling, redness, odor or drainage at theincision site Numbness, tingling, or color change of a leg or arm Trouble urinating within 8 hours or a feeling of fullness and unable to urinate Sudden, severe pain or pain not relieved by medication Questions or Concerns If you have chest pain, shortness of breath, difficulty breathing or swallowing call 911 in this encounter Assessments Diagnosis Trigger middle finger of lef t hand - Primary Diagnosis Primary osteoarthritis of xavier th knees - Primary Primary localized osteoarthrosis, lower leg Diagnosis Left hip pain - Primary Pain in joint, pelvic region and thigh Trochanteric bursitis of lef t hip Enthesopathy of hip region Iliotibial band tendinitis o f left side Diagnosis Palpitations- Primary Diagnosis Palpitations- Primary Essential hypertension Unspecified essential hypertension History of Present Illness * Judie Galvez, MICA [employer]-TIRE RECAPPER - 07/07/2018 2:00 PM EST Associated Order(s): LARGE JOINT INJECTION; LARGE JOINT INJECTION Post-Procedure Diagnose(s): Primary osteoarthritis of both knees LARGE JOINT INJECTION Date/Time: 07/07/2018 2:49 PM Consent: Consent was obtained prior to the procedure after discussion of the risks, benefits and alternatives, and expected outcomes were discussed with the patient. The possibilities of reaction to medication, bleeding, infection, the need for additional procedures, failure to diagnosis a condition, and creating a complication requiring operation were discussed with the patient. The patient concurred with the proposed plan, giving consent. Supporting Documentation Indications: pain and osteoarthritis Procedure Details Location: knee - L knee Local Anesthetic Used: mL of ethyl chloride (cold spray) Preparation: Patient was prepped in the usual sterile fashion with alcohol. Needle size: 22 G Approach: anterolateral Medication Verification: I have personally verified and performed the final check of the medication(s) used in this procedure prior to administration. The following items were included during the verification process for medication(s) administered: drug name, strength, volume, expiration, physical integrity and appearance of the medication(s). Medications administered: 20 mg Sodium Hyaluronate 20 MG/2ML Patient tolerance: patient tolerated the procedure well with no immediate complications LARGE JOINT INJECTION Date/Time: 07/07/2018 2:49 PM Consent: Consent was obtained prior to the procedure after discussion of the risks, benefits and alternatives, and expected outcomes were discussed with the patient. The possibilities of reaction to medication, bleeding, infection, the need for additional procedures, failure to diagnosis a condition, and creating a complication requiring operation were discussed with the patient. The patient concurred with the proposed plan, giving consent. Supporting Documentation Indications: pain and osteoarthritis Procedure Details Location: knee - R knee Local Anesthetic Used: mL of ethyl chloride (cold spray) Preparation: Patient was prepped in the usual sterile fashion with alcohol. Needle size: 22 G Approach: anterolateral Medication Verification: I have personally verified and performed the final check of the medication(s) used in this procedure prior to administration. The following items were included during the verification process for medication(s) administered: drug name, strength, volume, expiration, physical integrity and appearance of the medication(s). Medications administered: 20 mg Sodium Hyaluronate 20 MG/2ML Patient tolerance: patient tolerated the procedure well with no immediate complications in this encounter* Rohan Rausch MD - 07/23/2018 2:00 PM EST Associated Order(s): LARGE JOINT INJECTION Formatting of this note may be different from the original. SUBJECTIVE: Cynthia is here today for evaluation of her left hip. Her primary complaint is pain in left hip. The more she is on it, the more it hurts. It radiates around the side of the hip. She had a fall directly on it about a year ago. She is not having any groin pain. No numbness or tingling. OBJECTIVE: GENERAL: This is an alert, oriented, and age-appropriate female. No distress. Pleasant and cooperative. EXTREMITIES: Her left lower extremity. Evaluated. She has full and supple motion of the hip. There is no pain, no impingement, no instability. She has tenderness laterally with reproduction of symptoms. Otherwise, normal neurovascular status. IMAGING: AP pelvis hip series demonstrates a chronic appearing lesion in the left femoral head consistent with known avascular necrosis. IMPRESSION: 1. Asymptomatic left hip avascular necrosis, stable. 2. Symptomatic left hip troch bursitis and IT tendinitis. PLAN: I reviewed my findings with Cynthia. We talked about options for treatment. She is interested in a course of therapy and an injection. Lidocaine/Kenalog injection was given today into the troch area of left hip. She tolerated it well. Therapy will be started. She will advise us in the future if she remains symptomatic, may need more advanced imaging at this point. Her AVN lesion appears to be stable from her previous core decompression. No additional treatment is necessary as she seems to be asymptomatic in the intra-articular space. ([id number]) I have reviewed the findings of the clinical ground support agent and agree with their assessment. Rohan Rausch MD Ortho Nurse Established Patient Intake Room#: 4 Date: 07/23/2018 1:51 PM Patient: Cynthia Cisneros MR#: [id number] : 1950 Age: 67 y.o. L hip pain. Pt was seen last in office on 04/16/17 for L hip pain, it has since worsened. She was ordered therapy, meloxicam and [facility] her to Dr Ying to receive injection, pt didnot do any of these interventions. Referring Physician: Self, Self Insurance: Payor: MEDICARE / Plan: MEDICARE A AND B / Product Type: *No Product type* / Chief Complaint Patient presents with Left Hip - Pain Visit Vitals Temp 98.3 F (36.8 C) (Temporal) Ht 1.6 m (5' 3) Wt 50.8 kg (112 lb) BMI 19.84 kg/m Pain Recent Labs No results found for: CRP No results found for: SEDRATE Lab Results Component Value Date WBC 4.4 09/22/2017 HGB 13.9 09/22/2017 HCT 41.4 09/22/2017 PLATELET 205 09/22/2017 MCV 96.0 09/22/2017 History Past Medical History: Diagnosis Date Cervical cancer 1990 Hx of cataract removal with insertion of prosthetic lens 2010 Anemia Anxiety disorder Arrhythmia Arthritis COPD (chronic obstructive pulmonary disease) Coronary artery disease Depression Diabetes mellitus Dysphagia Fibromyalgia Injury of back Multiple thyroid nodules Syncope Past Surgical History: Procedure Laterality Date HYSTERECTOMY 1990 REMOVAL CATARACT (PEM) ROTATOR CUFF REPAIR Family History: Her family history includes Alcoholism in her brother and father; Arthritis - Osteoin her mother; Asthma in her brother and father; Colon Cancer in her mother; Diabetes in her mother; Heart Disease - Other in her father, mother, and sister; Hypertension in her father and mother; Stroke in her sister. Social History: Her reports that she has been smoking. She has never used smokeless tobacco. She reports that she does not drink alcohol or use drugs. Outpatient Medications Prior to Visit Medication Sig Dispense Refill acetaminophen (TYLENOL) 500 MG Tab tablet Take 500 mg by mouth every 6 hours as needed for Pain. albuterol (2.5 MG/3ML) 0.083% inhalation solution Take 3 mL by nebulization every 6 hours as needed. 1 Package 3 albuterol 108 (90 Base) MCG/ACT Aero Soln inhaler Inhale 2 puffs every 6 hours as needed for Shortness of Breath or Wheezing. amLODIPine 5 MG Tab tablet 0 atenolol (TENORMIN) 50 MG Tab tablet Take 1 tablet by mouth daily. 90 tablet 3 azelastine 0.1 % Solution nasal spray 2 sprays by Nasal route 2 times daily. Use in each nostril asdirected 1 Bottle 2 Beta Carotene 74344 units Cap Take 25,000 Units by mouth daily. Biotin 68900 MCG Tab Take 10,000 capsules by mouth daily. calcium citrate 950 MG Tab tablet Take 1 tablet by mouth 2 times daily. 60 tablet 11 cetirizine 10 MG Tab tablet Take 10 mg by mouth daily. Cholecalciferol (VITAMIN D) 2000 units Cap Take 1 capsule by mouth 2 times daily. 60 capsule 11 clindamycin 300 MG Cap Diclofenac Sodium (VOLTAREN) 1 % Gel gel Apply 4 grams to affected knee up to 4 times daily as needed for pain 3 Tube 3 Digestive Enzyme Cap 1 po tid with meals 90 capsule 11 faMOTIdine 20 MG Tab tablet Take 1 tablet by mouth 2 times daily. 60 tablet 11 fluoxetine 20 MG Cap capsule Take 20 mg by mouth daily. 0 fluticasone 50 MCG/ACT Suspension nasal spray 2 sprays by Nasal route 2 times daily. fluticasone 50 MCG/ACT Suspension nasal spray 2 sprays by Nasal route daily. 1 Bottle 3 folic acid 1 MG Tab tablet Take 1.5 tablets by mouth daily. 45 tablet 11 GuaiFENesin (MUCINEX MAXIMUM STRENGTH) 1200 MG Tab SR 12 HR Take 1 tablet by mouth 2 times daily. 60 tablet 0 levothyroxine 75 MCG Tab tablet Take 1 tablet by mouth daily. 30 tablet 11 loratadine 10 MG Tab tablet Take 1 tablet by mouth daily. 30 tablet 2 magnesium oxide 400 (241.3 Mg) MG Tab tablet Take 400 mg by mouth daily. Manganese 10 MG Tab Take 1 capsule by mouth daily. Melatonin 10-10 MG Tab CR Take 1-2 tablets by mouth at bedtime. metronidazole 0.75 % Cream cream Apply 1 Application topically 2 times daily. For rasacea mirtazapine 30 MG Tab Take 30 mg by mouth At bedtime. Psych Dr Shaina Govea mirtazapine 45 MG Tab tablet Take 1 tablet by mouth at bedtime. 0 Multiple Vitamins-Minerals (THEREMS-M) Tab Take 1 tablet by mouth daily. 30 tablet 11 mupirocin 2 % Ointment ointment Apply to affected area 3- 4 times daily as needed 1 Tube 3 [place]-3 Fatty Acids (FISH OIL) 1200 MG Cap Take 1 capsule by mouth 3 times daily. 30 capsule 11 peg 3350 w/electrolytes oral solution ONE DAY before Colonoscopy starting at 12pm until 6pm until rectal effluent is clear. 1 Bottle 0 pilocarpine 5 MG Tab Take 5 mg by mouth 3 times daily. PROLIA 60 MG/ML Solution injection inject 1 milliliter subcutaneously ONE TIME ONLY A SINGLE DOSE 0 pseudoephedrine 30 MG Tab tablet Take 1 tablet by mouth 3 times daily. 90 tablet 0 Simethicone 125 MG Cap capsule Take 125 mg by mouth daily as needed. tiotropium 18 MCG inhalation capsule Inhale 18 mcg daily. Valerian Root 450 MG Cap Take by mouth. No facility-administered medications prior to visit. Current Outpatient Prescriptions: acetaminophen (TYLENOL) 500 MG Tab tablet, Take 500 mg by mouth every 6 hours as needed for Pain., Disp: , Rfl: albuterol (2.5 MG/3ML) 0.083% inhalation solution, Take 3 mL by nebulization every 6 hours as needed., Disp: 1 Package, Rfl: 3 albuterol 108 (90 Base) MCG/ACT Aero Soln inhaler, Inhale 2 puffs every 6 hours as needed for Shortness of Breath or Wheezing., Disp: , Rfl: amLODIPine 5 MG Tab tablet, , Disp: , Rfl: 0 atenolol (TENORMIN) 50 MG Tab tablet, Take 1 tablet by mouth daily., Disp: 90 tablet, Rfl: 3 azelastine 0.1 % Solution nasal spray, 2 sprays by Nasal route 2 times daily. Use in each nostril as directed, Disp: 1 Bottle, Rfl: 2 Beta Carotene 97633 units Cap, Take 25,000 Units by mouth daily., Disp: , Rfl: Biotin 33329 MCG Tab, Take 10,000 capsules by mouth daily., Disp: , Rfl: calcium citrate 950 MG Tab tablet, Take 1 tablet by mouth 2 times daily., Disp: 60 tablet, Rfl: 11 cetirizine 10 MG Tab tablet, Take 10 mg by mouth daily., Disp: , Rfl: Cholecalciferol (VITAMIN D) 2000 units Cap, Take 1 capsule by mouth 2 times daily., Disp: 60 capsule, Rfl: 11 clindamycin 300 MG Cap, , Disp: , Rfl: Diclofenac Sodium (VOLTAREN) 1 % Gel gel, Apply 4 grams to affected knee up to 4 times daily as needed for pain, Disp: 3 Tube, Rfl: 3 Digestive Enzyme Cap, 1 po tid with meals, Disp: 90 capsule, Rfl: 11 faMOTIdine 20 MG Tab tablet, Take 1 tablet by mouth 2 times daily., Disp: 60 tablet, Rfl: 11 fluoxetine 20 MG Cap capsule, Take 20 mg by mouth daily., Disp: , Rfl: 0 fluticasone 50 MCG/ACT Suspension nasal spray, 2 sprays by Nasal route 2 times daily., Disp: , Rfl: fluticasone 50 MCG/ACT Suspension nasal spray, 2 sprays by Nasal route daily., Disp: 1 Bottle, Rfl:3 folic acid 1 MG Tab tablet, Take 1.5 tablets by mouth daily., Disp: 45 tablet, Rfl: 11 GuaiFENesin (MUCINEX MAXIMUM STRENGTH) 1200 MG Tab SR 12 HR, Take 1 tablet by mouth 2 times daily.,Disp: 60 tablet, Rfl: 0 levothyroxine 75 MCG Tab tablet, Take 1 tablet by mouth daily., Disp: 30 tablet, Rfl: 11 loratadine 10 MG Tab tablet, Take 1 tablet by mouth daily., Disp: 30 tablet, Rfl: 2 magnesium oxide 400 (241.3 Mg) MG Tab tablet, Take 400 mg by mouth daily., Disp: , Rfl: Manganese 10 MG Tab, Take 1 capsule by mouth daily., Disp: , Rfl: Melatonin 10-10 MG Tab CR, Take 1-2 tablets by mouth at bedtime., Disp: , Rfl: metronidazole 0.75 % Cream cream, Apply 1 Application topically 2 times daily. For rasacea, Disp: ,Rfl: mirtazapine 30 MG Tab, Take 30 mg by mouth At bedtime. Psych Dr Shaina Govea, Disp: , Rfl: mirtazapine 45 MG Tab tablet, Take 1 tablet by mouth at bedtime., Disp: , Rfl: 0 Multiple Vitamins-Minerals (THEREMS-M) Tab, Take 1 tablet by mouth daily., Disp: 30 tablet, Rfl: 11 mupirocin 2 % Ointment ointment, Apply to affected area 3- 4 times daily as needed, Disp: 1 Tube, Rfl: 3 [place]-3 Fatty Acids (FISH OIL) 1200 MG Cap, Take 1 capsule by mouth 3 times daily., Disp: 30 capsule, Rfl: 11 peg 3350 w/electrolytes oral solution, ONE DAY before Colonoscopy starting at 12pm until 6pm until rectal effluent is clear., Disp: 1 Bottle, Rfl: 0 pilocarpine 5 MG Tab, Take 5 mg by mouth 3 times daily., Disp: , Rfl: PROLIA 60 MG/ML Solution injection, inject 1 milliliter subcutaneously ONE TIME ONLY A SINGLE DOSE, Disp: , Rfl: 0 pseudoephedrine 30 MG Tab tablet, Take 1 tablet by mouth 3 times daily., Disp: 90 tablet, Rfl: 0 Simethicone 125 MG Cap capsule, Take 125 mg by mouth daily as needed., Disp: , Rfl: tiotropium 18 MCG inhalation capsule, Inhale 18 mcg daily., Disp: , Rfl: tiZANidine 4 MG Tab tablet, Take 4 mg by mouth at bedtime., Disp: , Rfl: 0 Valerian Root 450 MG Cap, Take by mouth., Disp: , Rfl: Allergies: She is allergic to penicillin g; sulfa antibiotics; trazodone; alprazolam; buspirone; carbamazepine; celecoxib; clonazepam; duloxetine; egg yolk; lithium; lorazepam; niacin; nsaids; paroxetine; pregabalin; soybean oil; sulfites; tricyclic antidepressants; valproic acid; wheat extract; and cephalexin. LARGE JOINT INJECTION Date/Time: 07/23/2018 2:32 PM Supporting Documentation Indications: pain Procedure Details Location: hip - L greater trochanteric bursa Local Anesthetic Used: mL of ethyl chloride (cold spray) Preparation: with Betadine. Medication Verification: I have personally verified and performed the final check of the medication(s) used in this procedure prior to administration. The following items were included during the verification process for medication(s) administered: drug name, strength, volume, expiration, physical integrity and appearance of the medication(s). * Heather Light LPN - 07/23/2018 2:00 PM EST Formatting of this note may be different from the original. Ortho Nurse Established Patient Intake Room#: 4 Date: 07/23/2018 1:51 PM Patient: Cynthia Cisneros MR#: [id number] : 1950 Age: 67 y.o. L hip pain. Pt was seen last in office on 04/16/17 for L hip pain, it has since worsened. She was ordered therapy, meloxicam and seen by [facility] who referred her to Dr Ying to receive injection, pt didnot do any of these interventions. Referring Physician: Self, Self Insurance: Payor: MEDICARE / Plan: MEDICARE A AND B / Product Type: *No Product type* / Chief Complaint Patient presents with Left Hip - Pain Visit Vitals Temp 98.3 F (36.8 C) (Temporal) Ht 1.6 m (5' 3) Wt 50.8 kg (112 lb) BMI 19.84 kg/m Pain Recent Labs No results found for: CRP No results found for: SEDRATE Lab Results Component Value Date WBC 4.4 09/22/2017 HGB 13.9 09/22/2017 HCT 41.4 09/22/2017 PLATELET 205 09/22/2017 MCV 96.0 09/22/2017 History Past Medical History: Diagnosis Date Cervical cancer 1990 Hx of cataract removal with insertion of prosthetic lens 2010 Anemia Anxiety disorder Arrhythmia Arthritis COPD (chronic obstructive pulmonary disease) Coronary artery disease Depression Diabetes mellitus Dysphagia Fibromyalgia Injury of back Multiple thyroid nodules Syncope Past Surgical History: Procedure Laterality Date HYSTERECTOMY 1990 REMOVAL CATARACT (PEM) ROTATOR CUFF REPAIR Family History: Her family history includes Alcoholism in her brother and father; Arthritis - Osteoin her mother; Asthma in her brother and father; Colon Cancer in her mother; Diabetes in her mother; Heart Disease - Other in her father, mother, and sister; Hypertension in her father and mother; Stroke in her sister. Social History: Her reports that she has been smoking. She has never used smokeless tobacco. She reports that she does not drink alcohol or use drugs. Outpatient Medications Prior to Visit Medication Sig Dispense Refill acetaminophen (TYLENOL) 500 MG Tab tablet Take 500 mg by mouth every 6 hours as needed for Pain. albuterol (2.5 MG/3ML) 0.083% inhalation solution Take 3 mL by nebulization every 6 hours as needed. 1 Package 3 albuterol 108 (90 Base) MCG/ACT Aero Soln inhaler Inhale 2 puffs every 6 hours as needed for Shortness of Breath or Wheezing. amLODIPine 5 MG Tab tablet 0 atenolol (TENORMIN) 50 MG Tab tablet Take 1 tablet by mouth daily. 90 tablet 3 azelastine 0.1 % Solution nasal spray 2 sprays by Nasal route 2 times daily. Use in each nostril asdirected 1 Bottle 2 Beta Carotene 82344 units Cap Take 25,000 Units by mouth daily. Biotin 36754 MCG Tab Take 10,000 capsules by mouth daily. calcium citrate 950 MG Tab tablet Take 1 tablet by mouth 2 times daily. 60 tablet 11 cetirizine 10 MG Tab tablet Take 10 mg by mouth daily. Cholecalciferol (VITAMIN D) 2000 units Cap Take 1 capsule by mouth 2 times daily. 60 capsule 11 clindamycin 300 MG Cap Diclofenac Sodium (VOLTAREN) 1 % Gel gel Apply 4 grams to affected knee up to 4 times daily as needed for pain 3 Tube 3 Digestive Enzyme Cap 1 po tid with meals 90 capsule 11 faMOTIdine 20 MG Tab tablet Take 1 tablet by mouth 2 times daily. 60 tablet 11 fluoxetine 20 MG Cap capsule Take 20 mg by mouth daily. 0 fluticasone 50 MCG/ACT Suspension nasal spray 2 sprays by Nasal route 2 times daily. fluticasone 50 MCG/ACT Suspension nasal spray 2 sprays by Nasal route daily. 1 Bottle 3 folic acid 1 MG Tab tablet Take 1.5 tablets by mouth daily. 45 tablet 11 GuaiFENesin (MUCINEX MAXIMUM STRENGTH) 1200 MG Tab SR 12 HR Take 1 tablet by mouth 2 times daily. 60 tablet 0 levothyroxine 75 MCG Tab tablet Take 1 tablet by mouth daily. 30 tablet 11 loratadine 10 MG Tab tablet Take 1 tablet by mouth daily. 30 tablet 2 magnesium oxide 400 (241.3 Mg) MG Tab tablet Take 400 mg by mouth daily. Manganese 10 MG Tab Take 1 capsule by mouth daily. Melatonin 10-10 MG Tab CR Take 1-2 tablets by mouth at bedtime. metronidazole 0.75 % Cream cream Apply 1 Application topically 2 times daily. For rasacea mirtazapine 30 MG Tab Take 30 mg by mouth At bedtime. Psych Dr Shaina Govea mirtazapine 45 MG Tab tablet Take 1 tablet by mouth at bedtime. 0 Multiple Vitamins-Minerals (THEREMS-M) Tab Take 1 tablet by mouth daily. 30 tablet 11 mupirocin 2 % Ointment ointment Apply to affected area 3- 4 times daily as needed 1 Tube 3 [place]-3 Fatty Acids (FISH OIL) 1200 MG Cap Take 1 capsule by mouth 3 times daily. 30 capsule 11 peg 3350 w/electrolytes oral solution ONE DAY before Colonoscopy starting at 12pm until 6pm until rectal effluent is clear. 1 Bottle 0 pilocarpine 5 MG Tab Take 5 mg by mouth 3 times daily. PROLIA 60 MG/ML Solution injection inject 1 milliliter subcutaneously ONE TIME ONLY A SINGLE DOSE 0 pseudoephedrine 30 MG Tab tablet Take 1 tablet by mouth 3 times daily. 90 tablet 0 Simethicone 125 MG Cap capsule Take 125 mg by mouth daily as needed. tiotropium 18 MCG inhalation capsule Inhale 18 mcg daily. Valerian Root 450 MG Cap Take by mouth. No facility-administered medications prior to visit. Current Outpatient Prescriptions: acetaminophen (TYLENOL) 500 MG Tab tablet, Take 500 mg by mouth every 6 hours as needed for Pain., Disp: , Rfl: albuterol (2.5 MG/3ML) 0.083% inhalation solution, Take 3 mL by nebulization every 6 hours as needed., Disp: 1 Package, Rfl: 3 albuterol 108 (90 Base) MCG/ACT Aero Soln inhaler, Inhale 2 puffs every 6 hours as needed for Shortness of Breath or Wheezing., Disp: , Rfl: amLODIPine 5 MG Tab tablet, , Disp: , Rfl: 0 atenolol (TENORMIN) 50 MG Tab tablet, Take 1 tablet by mouth daily., Disp: 90 tablet, Rfl: 3 azelastine 0.1 % Solution nasal spray, 2 sprays by Nasal route 2 times daily. Use in each nostril as directed, Disp: 1 Bottle, Rfl: 2 Beta Carotene 03851 units Cap, Take 25,000 Units by mouth daily., Disp: , Rfl: Biotin 47744 MCG Tab, Take 10,000 capsules by mouth daily., Disp: , Rfl: calcium citrate 950 MG Tab tablet, Take 1 tablet by mouth 2 times daily., Disp: 60 tablet, Rfl: 11 cetirizine 10 MG Tab tablet, Take 10 mg by mouth daily., Disp: , Rfl: Cholecalciferol (VITAMIN D) 2000 units Cap, Take 1 capsule by mouth 2 times daily., Disp: 60 capsule, Rfl: 11 clindamycin 300 MG Cap, , Disp: , Rfl: Diclofenac Sodium (VOLTAREN) 1 % Gel gel, Apply 4 grams to affected knee up to 4 times daily as needed for pain, Disp: 3 Tube, Rfl: 3 Digestive Enzyme Cap, 1 po tid with meals, Disp: 90 capsule, Rfl: 11 faMOTIdine 20 MG Tab tablet, Take 1 tablet by mouth 2 times daily., Disp: 60 tablet, Rfl: 11 fluoxetine 20 MG Cap capsule, Take 20 mg by mouth daily., Disp: , Rfl: 0 fluticasone 50 MCG/ACT Suspension nasal spray, 2 sprays by Nasal route 2 times daily., Disp: , Rfl: fluticasone 50 MCG/ACT Suspension nasal spray, 2 sprays by Nasal route daily., Disp: 1 Bottle, Rfl:3 folic acid 1 MG Tab tablet, Take 1.5 tablets by mouth daily., Disp: 45 tablet, Rfl: 11 GuaiFENesin (MUCINEX MAXIMUM STRENGTH) 1200 MG Tab SR 12 HR, Take 1 tablet by mouth 2 times daily.,Disp: 60 tablet, Rfl: 0 levothyroxine 75 MCG Tab tablet, Take 1 tablet by mouth daily., Disp: 30 tablet, Rfl: 11 loratadine 10 MG Tab tablet, Take 1 tablet by mouth daily., Disp: 30 tablet, Rfl: 2 magnesium oxide 400 (241.3 Mg) MG Tab tablet, Take 400 mg by mouth daily., Disp: , Rfl: Manganese 10 MG Tab, Take 1 capsule by mouth daily., Disp: , Rfl: Melatonin 10-10 MG Tab CR, Take 1-2 tablets by mouth at bedtime., Disp: , Rfl: metronidazole 0.75 % Cream cream, Apply 1 Application topically 2 times daily. For rasacea, Disp: ,Rfl: mirtazapine 30 MG Tab, Take 30 mg by mouth At bedtime. Psych Dr Shaina Govea, Disp: , Rfl: mirtazapine 45 MG Tab tablet, Take 1 tablet by mouth at bedtime., Disp: , Rfl: 0 Multiple Vitamins-Minerals (THEREMS-M) Tab, Take 1 tablet by mouth daily., Disp: 30 tablet, Rfl: 11 mupirocin 2 % Ointment ointment, Apply to affected area 3- 4 times daily as needed, Disp: 1 Tube, Rfl: 3 [place]-3 Fatty Acids (FISH OIL) 1200 MG Cap, Take 1 capsule by mouth 3 times daily., Disp: 30 capsule, Rfl: 11 peg 3350 w/electrolytes oral solution, ONE DAY before Colonoscopy starting at 12pm until 6pm until rectal effluent is clear., Disp: 1 Bottle, Rfl: 0 pilocarpine 5 MG Tab, Take 5 mg by mouth 3 times daily., Disp: , Rfl: PROLIA 60 MG/ML Solution injection, inject 1 milliliter subcutaneously ONE TIME ONLY A SINGLE DOSE, Disp: , Rfl: 0 pseudoephedrine 30 MG Tab tablet, Take 1 tablet by mouth 3 times daily., Disp: 90 tablet, Rfl: 0 Simethicone 125 MG Cap capsule, Take 125 mg by mouth daily as needed., Disp: , Rfl: tiotropium 18 MCG inhalation capsule, Inhale 18 mcg daily., Disp: , Rfl: tiZANidine 4 MG Tab tablet, Take 4 mg by mouth at bedtime., Disp: , Rfl: 0 Valerian Root 450 MG Cap, Take by mouth., Disp: , Rfl: Allergies: She is allergic to penicillin g; sulfa antibiotics; trazodone; alprazolam; buspirone; carbamazepine; celecoxib; clonazepam; duloxetine; egg yolk; lithium; lorazepam; niacin; nsaids; paroxetine; pregabalin; soybean oil; sulfites; tricyclic antidepressants; valproic acid; wheat extract; and cephalexin. in this encounter Reason for Referral Status Reason Specialty Diagnoses / Procedures Referred By Contact Referred To Contact New Request Physical Therapy Diagnoses Left hip pain Trochanteric bursitis of left hip Iliotibial band tendinitis of left side Rohan Rausch MD [address] [phone] Scheduling Instructions . Status Reason Specialty Diagnoses / Procedures Referred By Contact Referred To Contact New Request Diagnoses Left hip pain Procedures XR HIP WITH PELVIS LEFT Rohan Rausch MD 6 [place] [address] Specialty Diagnoses / Procedures Referred By Contac t Referred To Contact Infectious Diseases Diagnoses Chronic maxillary sinusitis Tomas Umana MD [address] [facility] [address] [place] [address] Fito Rosen MD [address] [address] Referral ID Status Reason Start Date Expiration Date Visits Requested Visits Authorized [id number] Authorized Specialty Services Required/Pat ient's Best Interest 04/18/2022 04/18/2023 1 1 Specialty Diagnoses / Procedures Referred By Melissa t Referred To Contact Rheumatology Diagnoses Chronic maxillary sinusitis Syed Canas MD [address] [place] [address] [place] [address] Aime Carpenter MD [address] [place] [address] Referral ID Status Reason Start Date Expiration Date Visits Re quested Visits Authorized [id number] Closed 04/30/2022 04/30/2023 1 1 Specialty Diagnoses / Procedures Referred By Contac t Referred To Contact Audiology / Otolaryngology Diagnoses Hearing loss, unspecified hearing loss type, unspecified laterality Isiah Wray, DO [address] [place] [address] Brittany Koenig AuD [address] [place] [address] Referral ID Status Reason Start Date Expiration Date V isits Requested Visits Authorized [id number] Closed Specialty Services Required/Taylor ent's Best Interest 05/15/2022 05/15/2023 1 1 Specialty Diagnoses / Procedures Referred By Contac t Referred To Contact Radiology Diagnoses Chronic maxillary sinusitis Fungal sinusitis Procedures CT Sinus Stealth Without Contrast Nils Isiah Coronel, DO [address] [place] [address] [phone] Referral ID Status Reason Start Date Expiration Date V isits Requested Visits Authorized [id number] New Request 05/15/2022 05/15/2023 1 1 Specialty Diagnoses / Procedures Referred By Contac t Referred To Contact Otolaryngology Diagnoses Chronic maxillary sinusitis Chronic ethmoidal sinusitis Unspecified mycosis Chronic sinusitis, unspecified location Syed Canas MD [facility] [place] [address] Mateus Samuels MD [address] [address] Referral ID Status Reason Start Date Expiration Date V isits Requested Visits Authorized [id number] Authorized 07/11/2022 07/11/2023 1 1 Specialty Diagnoses / Procedures Referred By Contac t Referred To Contact Rehabilitation Diagnoses Primary osteoarthritis of both knees Charly Dias, TIRE RECAPPER [address] [phone] [facility] [address] [place] [phone] Referral ID Status Reason Start Date Expiration Date V isits Requested Visits Authorized [id number] Authorized 09/22/2022 09/22/2023 1 1 Specialty Diagnoses / Procedures Referred By Contac t Referred To Contact Rehabilitation Diagnoses Shoulder impingement syndrome, left Shoulder impingement syndrome, right Charly Dias, TIRE RECAPPER [address] [phone] [facility] [address] [place] [phone] Referral ID Status Reason Start Date Expiration Date V isits Requested Visits Authorized [id number] Authorized 09/29/2022 09/29/2023 1 1 Specialty Diagnoses / Procedures Referred By Contac t Referred To Contact Pulmonology Diagnoses Chronic obstructive pulmonary disease, unspecified COPD type (HCC) Eosinophilic asthma Sj Motley MD [address] [address] Anna Powers MD [address] Su[address] [place] [address] Referral ID Status Reason Start Date Expiration Date V isits Requested Visits Authorized [id number] Authorized 11/25/2022 11/25/2023 1 1 Specialty Diagnoses / Procedures Referred By Contac t Referred To Contact Pulmonology Diagnoses Chronic obstructive pulmonary disease, unspecified COPD type (HCC) Procedures 6 minute walk Otf Chan, FERNANDO [address] [place], [place] [phone] Referral ID Status Reason Start Date Expiration Date V isits Requested Visits Authorized [id number] Authorized 11/28/2022 11/28/2023 1 1 Specialty Diagnoses / Procedures Referred By Contac t Referred To Contact Pulmonology Diagnoses Chronic obstructive pulmonary disease, unspecified COPD type (HCC) Procedures Complete PFT with Pre and Post Bronchodilator Otf Chan, TIRE RECAPPER [address] Espino [address] [place], [place] [phone] Referral ID Status Reason Start Date Expiration Date V isits Requested Visits Authorized [id number] Authorized 11/28/2022 11/28/2023 1 1 Specialty Diagnoses / Procedures Referred By Contac t Referred To Contact Sj Motley MD [address] [place] [address] Referral ID Status Reason Start Date Expiration Date V isits Requested Visits Authorized [id number] Authorized 08/17/2022 08/16/2023 1 1 Specialty Diagnoses / Procedures Referred By Contac t Referred To Contact Rehabilitation Diagnoses Shoulder impingement syndrome, right Shoulder impingement syndrome, left Charly Dias, FERNANDO [address] [phone] [facility] [address] [place] [phone] Referral ID Status Reason Start Date Expiration Date Visits Requested Visits Authorized [id number] Authorized Specialty Services Required/Pat ient's Best Interest 03/19/2023 03/18/2024 1 1 Specialty Diagnoses / Procedures Referred By Contac t Referred To Contact Rheumatology Diagnoses Encounter to establish care with new doctor Charly Dias, FERNANDO [address] [place] [address] [facility] [place] [address] Referral ID Status Reason Start Date Expiration Date V isits Requested Visits Authorized [id number] Authorized 04/06/2023 04/05/2024 1 1 Specialty Diagnoses / Procedures Referred By Contac t Referred To Contact Cardiology Diagnoses Cardiac arrhythmia, unspecified cardiac arrhythmia type Paroxysmal atrial fibrillation (HCC) Procedures Cardiac event monitor Sj Motley MD [address] [phone] Referral ID Status Reason Start Date Expiration Date V isits Requested Visits Authorized [id number] Authorized 05/07/2023 05/06/2024 1 1 Specialty Diagnoses / Procedures Referred By Contac t Referred To Contact Cardiology Diagnoses Cardiac arrhythmia, unspecified cardiac arrhythmia type Procedures ECG 12 Lead Sj Motley MD [address] [place] [address] Referral ID Status Reason Start Date Expiration Date Visits Re quested Visits Authorized [id number] Closed 05/07/2023 05/06/2024 1 1 Referral ID Status Reason Start Date Expiration Date V isits Requested Visits Authorized [id number] Pending Review 1 1 Specialty Diagnoses / Procedures Referred By Contac t Referred To Contact Rehabilitation Diagnoses Migraine without status migrainosus, not intractable, unspecified migraine type Rohan Palencia MD [address] [phone] [facility] Speech Therapy [address] [place] [phone] Referral ID Status Reason Start Date Expiration Date V isits Requested Visits Authorized [id number] Authorized 07/07/2023 07/06/2024 1 1 Specialty Diagnoses / Procedures Referred By Contac t Referred To Contact Rohan Palencia MD [address] [facility] [address] [address] Referral ID Status Reason Start Date Expiration Date V isits Requested Visits Authorized [id number] Pending Review 1 1 Specialty Diagnoses / Procedures Referred By Contac t Referred To Contact Radiology Diagnoses Dysphagia, unspecified type Procedures XR Modifed Barium Swallow Rohan Palencia MD 335 Anne-Marie Cooley [address] [address] Referral ID Status Reason Start Date Expiration Date V isits Requested Visits Authorized [id number] Pending Review 08/08/2023 08/07/2024 1 1 Specialty Diagnoses / Procedures Referred By Contac t Referred To Contact Radiology Diagnoses Encounter for screening for malignant neoplasm of lung in current smoker with 30 pack year history or greater Personal history of nicotine dependence Procedures CT Lung Cancer Screening Otf Chan, TIRE RECAPPER [address] [facility] [address] [place], [place] [phone] Referral ID Status Reason Start Date Expiration Date V isits Requested Visits Authorized [id number] New Request 09/09/2024 09/09/2025 1 1 Specialty Diagnoses / Procedures Referred By Contac t Referred To Contact Psychiatry Diagnoses Moderate major depression (HCC) Bipolar affective disorder, remission status unspecified (HCC) Sj Motley MD [address] [place] [address] Miriam Cerna, TIRE RECAPPER [address] [facility] [address] [place], [place] [phone] Referral ID Status Reason Start Date Expiration Date V isits Requested Visits Authorized [id number] Authorized 09/17/2023 09/16/2024 1 1 Specialty Diagnoses / Procedures Referred By Contac t Referred To Contact Behavorist (Outpatient Social Work) Diagnoses Moderate major depression (HCC) Bipolar affective disorder, remission status unspecified (HCC) Sj Motley MD [address] [phone] Referral ID Status Reason Start Date Expiration Date V isits Requested Visits Authorized [id number] Authorized 09/17/2023 09/16/2024 1 1 Referral ID Status Reason Start Date Expiration Date Visits Requested Visits Authorized [id number] Authorized Patient Preference 11/12/2023 11/11/2024 1 1 Specialty Diagnoses / Procedures Referred By Contac t Referred To Contact Radiology Diagnoses Osteoporosis, unspecified osteoporosis type, unspecified pathological fracture presence Procedures XR Bone Density DEXA Axial Sj Motley MD [address] [address] [address] [place] [address] Referral ID Status Reason Start Date Expiration Date V isits Requested Visits Authorized [id number] Pending Review 12/25/2023 12/24/2024 1 1 Specialty Diagnoses / Procedures Referred By Contac t Referred To Contact Diagnoses Shoulder impingement syndrome, left Procedures MR Shoulder Left Without Contrast Charly Dias, TIRE RECAPPER [address] [place] [address] OF SERVICE NOT IN SYSTEM Referral ID Status Reason Start Date Expiration Date Visits Requested Visits Authorized [id number] New Request Patient Preference 02/02/2024 02/01/2025 1 1 Chief Complaint and Reason for Visit Chief Complaint CARDIAC CLEARANCE URI EORDER YEAST IN MOUTH LLL NODULE 1.5 CM Reason for Visit Preoperative clearan ce Essential hypertension Hyperlipidemia Paroxysmal atrial fibrillation Acute bronchitis COPD (chronic obstructive pulmonary disease) Emphysema lung Chief Complaint YEAST IN MOUTH LLL NODULE 1.5 CM Reason for Visit COPD (chronic obstru ctive pulmonary disease) Emphysema lung Chief Complaint LLL NODULE 1.5 CM 4 M FU Reason for Visit Lung nodule, solitar y Asthma Bronchiectasis COPD (chronic obstructive pulmonary disease) Seasonal allergies Additional Source Comments INFORMATION SOURCE (unrecogn ized section and content) DATE CREATED AUTHOR 02/02/2018 [facility] DATE CREATED AUTHOR AUTHOR'S ORGANIZ ATION 02/02/2018 [facility] DATE CREATED AUTHOR AUTHOR'S ORGANIZ ATION 02/10/2018 [facility] DATE CREATED AUTHOR AUTHOR'S ORGANIZ ATION 03/11/2018 [facility] DATE CREATED AUTHOR AUTHOR'S ORGANIZ ATION 05/01/2020 [facility] DATE CREATED AUTHOR AUTHOR'S ORGANIZ ATION 11/12/2021 [facility] DATE CREATED AUTHOR AUTHOR'S ORGANIZ ATION 08/26/2022 [facility] DATE CREATED AUTHOR AUTHOR'S ORGANIZ ATION 11/03/2023 [facility] DATE CREATED AUTHOR AUTHOR'S ORGANIZ ATION 08/30/2024 [facility] DATE CREATED AUTHOR AUTHOR'S ORGANIZ ATION 02/28/2025 [facility] DATE CREATED AUTHOR AUTHOR'S ORGANIZ ATION 02/28/2025 [facility] DATE CREATED AUTHOR AUTHOR'S ORGANIZ ATION 03/07/2025 [facility] Yonas Fischer MD - 03/24/2018 12:47 PM EDT H&P Notes (unrecognized sect ion and content) INTERVAL HISTORY AND PHYSICAL Patient Name: Cynthia Cisneros Admit Date: [id number] MR #: [id number] : 1950 The H&P has been reviewed and the patient has been examined. I concur with the findings of the H&P. There are no significant changes. It is appropriate to proceed with the planned procedure. Yonas Nguyen MD 03/24/2018 12:47 PMin this encounter Kelly Rudd RN - 03/19/2018 11:09 AM EDT Nursing Notes (unrecognized section and content) Patient Instructions for [facility]: Prior to surgery: Please contact your Surgeon's office for the scheduled time of your surgery. Report to the Surgery Family Waiting Area in the [place] area of [facility] 1 1/2-2 hours prior to your surgery. You may use the Engineering Inspection Assistant parking available at the Main Entrance/Blue Area of [facility] - a voucher for parking will be provided to you. One family member may accompany you back into the Pre-Op Area. Do not eat or drink anything after midnight or as directed, including gum, mints, and cough drops. No smoking after midnight. No alcohol 24 hours prior to your surgery. Please take any medications you have been instructed to take the morning of your surgery with small sips of water. Please be sure to wear comfortable, appropriate clothing. Please remove all jewelry and piercing's, including wedding rings. Leave all valuable items at home. Shower using anti-bacterial soap or as advised by your Surgeon's office Do not apply any makeup or lotions. Remove all nail paraguayan for surgeries involving extremities. Please remember to bring both your insurance card and a photo ID with you on the day of surgery. After your surgery: If you are having outpatient surgery - you must have a licensed delivery truck driver heavy to take you home. The expectation is that this delivery truck driver heavy will remain at the hospital for the duration of your procedure. You are advised to have a family member with you for at least 24 hours after being under Anesthesia. in this encounter Brief Op Note - Yonas Nguyen MD - 03/24/2018 2:18 PM EDT Miscellaneous Notes (unrecog nized section and content) Formatting of this note may be different from the original. Brief Post Operative Note Patient Name: Cynthia Cisneros : 1950 (67 y.o.) Date of Service: 03/24/2018 CSN: [id number] Procedure(s): RELEASE A1 TOD LEFT MIDDLE,RING, AND SMALL FINGERS WITH CORTISONE INJECTION RIGHT MIDDLE FINGER A1 TOD Pre-Operative Diagnoses: * M65.332 M65.342 M65.352 M65.331 Post-Operative Diagnoses: * Same as Pre-Op Diagnosis Surgeon(s) and Role: * Yonas Nguyen MD - Primary Anesthesiologist: Patricia Espana MD Coin Machine Collector: Stephanie Piña RN Relief Scrub: ST Amada Scrub Person: Humza Grier RN Operative findings: as above Intra and immediate post-operative complications: none Type of anesthesia used: Monitor Anesthesia Care Estimated blood loss: 5 mL Estimated urine output: 0 mL Specimen(s): * No specimens in log * Implant(s): * No implants in log * Drain(s): Wound(s): Incision 03/24/18 Arm Lower Left (Active) Yonas Nguyen MD 03/24/2018 2:18 PM in this encounter Reason for Visit (unrecogniz ed section and content) Reason Comments Pain Specialty Diagnoses / Procedures Referred By Contmelania t Referred To Contact Sports Medicine Diagnoses Right hip pain Sj Motley MD [address] [address] Phone: tel: fax: Charly Dias, TIRE RECAPPER [address] [place] [address] Phone: tel: fax: Referral ID Status Reason Start Date Expiration Date Visits Re quested Visits Authorized [id number] Closed 06/14/2024 06/14/2025 1 1 Reason Comments Knee Pain Bilateral knee. Taylor ent presents for Euflexxa # 2 of 3. Reason Comments Pain Reason Comments Medication Refill Reason Comments Appointment Reason Comments Pre-op Exam Reason Onset Date Comments Medication Refill 10/28/2021 Reason Comments Follow-up Suture / Staple Removal Wound Check Reason Onset Date Comments Medication Refill 11/12/2021 Reason Comments Knee Pain Bilateral knees - Eu flexxa injection 3 of 3. Reason Comments Knee Pain Bilateral knees. Lef t knee xrays completed on 12/13/21. Right knee Xrays completed today in office. Pt states that she has been having pain in the knees for several years. Received Euflexxa injections in [place] that completed on 06/20/21. On 10/21/21 Her left knee gave out and started having pain. On 12/13/21 she received an Left knee steroid injection. Pt would like to discuss ULLOA injections and possible TKA referral. 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 Since Aug 2019 left ear pain. Patient had sinus surgery in [address] Wattres. Jun [address] Key,placed clorithromycin x10 days after sinus culture. Jun 18 2020, suctioned sinus fungus balls. Recommended sinus rinses. Went back 06/28/2020. Clear Sinuses. Aug 26 2020- went to for sinus inf., placed on [id number]. Patient report she is doing saline rinses and still getting sinus infections. 04/2021- Dr Key, recommend Sinusitis Placed on doxy in [facility] for 10 days for left maxillary sinus. Saw Dr. Esteban again, recomeded morning and evening saline rinses. Pulmonary physician - his TIRE RECAPPER, wrote for clinda x 3 weeks, improved and extended it for 2 more weeks. Referred to infectious disease when not cleared, whom denied her referral. Pcp Specialty Diagnoses / Procedures Referred By Melissa taveras Referred To Contact Otolaryngology Diagnoses Chronic maxillary sinusitis Syed Canas MD [address] [place] [address] [place] [address] Isiah Wray, DO [address] [place] [address] Referral ID Status Reason Start Date Expiration Date V isits Requested Visits Authorized [id number] Closed Specialty Services Required/Taylor ent's Best Interest 05/05/2022 05/05/2023 1 1 Reason Comments Follow-up Patient is here for follow up of sinus, to review CT. Sinus surgery performed Ethmoidectomy and Left nik ballosa January 2018 (Janene) - December 2019 - balloon sinuplasty _ Dr Key ([place]) Symptom : left eye, left maxillary and left ear Pep green mucus from maxillary sinus when she does normal saline sinus rinses. Reason Comments Knee Pain Bilateral knees - Co mpleted Euflexxa series on 02/11/22. Patient states that the injections helped with the pain for around 6 months but the pain has returned and is requesting repeat injections today. Reason Comments Knee Pain Bilateral knee Eufle xxa 2 of 3. Reason Comments Pain Reason Comments New Patient 2nd opinion - Chroni c maxillary sinusitis, Chronic ethmoidal sinusitis, Unspecified mycosis (CT Sinus done) Specialty Diagnoses / Procedures Referred By Melissa t Referred To Contact Otolaryngology Diagnoses Chronic maxillary sinusitis Chronic ethmoidal sinusitis Unspecified mycosis Chronic sinusitis, unspecified location Syed Canas MD [address] [place] [address] Mateus Samuels MD [address] Anne-Marie Cooley [address] [place] [address] Referral ID Status Reason Start Date Expiration Date Visits Re quested Visits Authorized [id number] Closed 07/11/2022 07/11/2023 1 1 Reason Comments Physical Therapy Specialty Diagnoses / Procedures Referred By Melissa t Referred To Contact Rehabilitation Diagnoses Primary osteoarthritis of both knees Impingement syndrome of left shoulder Impingement syndrome of right shoulder Charly Dias, TIRE RECAPPER [address] [place] [address] [address] [address] [address] [place] [address] Referral ID Status Reason Start Date Expiration Date V isits Requested Visits Authorized [id number] Authorized 09/22/2022 09/22/2023 9 199 Reason Onset Date Comments Medication Refill 10/27/2022 Reason Comments 3 week f/u Cultures done Referral ID Status Reason Start Date Expiration Date V isits Requested Visits Authorized [id number] Authorized 09/22/2022 09/22/2023 13 199 Reason Comments Establish Care GRAPHIC ART DESIGNER TO EST PCP Dizziness Intermittent X 3 wee ks about, Otalgia Ongoing staph in sin us Reason Onset Date Comments Medication Refill 01/16/2023 Reason Comments Consult copd Specialty Diagnoses / Procedures Referred By Melissa t Referred To Contact Pulmonology Diagnoses Chronic obstructive pulmonary disease, unspecified COPD type (HCC) Eosinophilic asthma Sj Motley MD [address] [address] Anna Powers MD [address] [place], [place] [address]elda [address] [place] [phone] Referral ID Status Reason Start Date Expiration Date Visits Re quested Visits Authorized [id number] Closed 11/25/2022 11/25/2023 1 1 Reason Comments 3 month f/u 10/27/2022 Subacute maxillary sinusitis Reason Onset Date Comments Medication Refill 02/20/2023 Specialty Diagnoses / Procedures Referred By Contac t Referred To Contact Rehabilitation Diagnoses Muscle cramps Chronic left-sided low back pain with left-sided sciatica Sj Motley MD [address] [place] [address] [address] Referral ID Status Reason Start Date Expiration Date V isits Requested Visits Authorized [id number] Authorized 02/05/2023 02/05/2024 12 199 Specialty Diagnoses / Procedures Referred By Contmelania t Referred To Contact Rehabilitation Diagnoses Muscle cramps Chronic left-sided low back pain with left-sided sciatica Sj Motley MD [address] [place] [address] [phone] Reason Onset Date Comments [employer] Appeal for Ubrelvy 50 mg tab 04/07/2023 Reason Comments Follow-up Bilateral knee pain, Euflexxa #3 of 3 Reason Onset Date Comments Medication Refill 04/21/2023 Reason Onset Date Comments Medication Refill 04/24/2023 Reason Comments Follow-up 3 month f/u Gap Closure (Health Maintenance) Colorec tejal Cancer Screening/Monitoring Never donePT Plan of Care Never doneWellness Visit Never doneFoot Exam Never doneHepatitis C Screening Never doneMammogram Never doneFalls Risk Assessment due on 02/10/2023Sequential Influenza Vaccine(1) due on 04/17/2023 Reason Onset Date Comments Medication Refill 05/12/2023 Reason Onset Date Comments PA initiated for Pantoprazole 40 mg tablet 05/18 Reason Onset Date Comments Medication Refill 06/03/2023 Reason Comments Injections Bilat shoulders Specialty Diagnoses / Procedures Referred By Melissa taveras Referred To Contact Rheumatology Diagnoses Encounter to establish care with new doctor Charly Arteaga, TIRE RECAPPER [address] [place] [address] [facility] [address] [place] [address] [place] [address] Referral ID Status Reason Start Date Expiration Date Visits Re quested Visits Authorized [id number] Closed 04/06/2023 04/05/2024 1 1 Reason Comments Migraine She states she has h ad them for over 7 years but have gotten worse the last 2 years where she is having to stay in bed when she gets one. Specialty Diagnoses / Procedures Referred By Melissa taveras Referred To Contact Neurology Diagnoses Migraine without status migrainosus, not intractable, unspecified migraine type Sj Motley MD [address] [address] [facility] [address] Office [facility], [address] [place] [address] Referral ID Status Reason Start Date Expiration Date Visits Re quested Visits Authorized [id number] Closed 02/05/2023 02/05/2024 1 1 Reason Onset Date Comments Medication Refill 07/13/2023 Reason Comments Speech Therapy Specialty Diagnoses / Procedures Referred By Melissa taveras Referred To Contact Rehabilitation Diagnoses Migraine without status migrainosus, not intractable, unspecified migraine type Rohan Palencia MD [address] [place] [phone] Op Speech Therapy [address] [place] [phone] Referral ID Status Reason Start Date Expiration Date V isits Requested Visits Authorized [id number] Authorized 07/07/2023 07/06/2024 1 199 Reason Onset Date Comments Medication Refill 08/07/2023 Reason Onset Date Comments Medication Refill 08/14/2023 Reason Comments Follow-up Depression Anxiety Migraine Reason Onset Date Comments Medication Refill 09/18/2023 Reason Onset Date Comments Medication Refill 09/21/2023 Reason Comments Knee Pain Bilateral knees - Co mpleted bilateral knee Euflexxa injections on 10/14/22. Patient states that the injections helped with her knee pain but the pain has been returning. Reason Comments Knee Pain Bilateral knee Eufle xxa 2 of 3 Reason Onset Date Comments Medication Refill 10/30/2023 Reason Comments Knee Pain Bilateral knee Eufle xxa 3 of 3 Specialty Diagnoses / Procedures Referred By Contac t Referred To Contact Psychiatry Diagnoses Moderate major depression (HCC) Bipolar affective disorder, remission status unspecified (HCC) Sj Motley MD [facility] [address] [address] Miriam Cerna, TIRE RECAPPER [address] [address] Referral ID Status Reason Start Date Expiration Date Visits Re quested Visits Authorized [id number] Closed 09/17/2023 09/16/2024 1 1 Reason Onset Date Comments Medication Refill 11/05/2023 Reason Comments Injections Reason Onset Date Comments Medication Refill 11/11/2023 Reason Onset Date Comments Medication Refill 12/07/2023 Specialty Diagnoses / Procedures Referred By Contac t Referred To Contact Rehabilitation Diagnoses Shoulder impingement syndrome, right Shoulder impingement syndrome, left Charly Dias, TIRE RECAPPER [address] [place] [address] [facility] [address] [phone] Referral ID Status Reason Start Date Expiration Date Visits Requested Visits Authorized [id number] Authorized Patient Preference 11/12/2023 11/11/2024 10 199 Specialty Diagnoses / Procedures Referred By Melissa taveras Referred To Contact Rehabilitation Diagnoses Shoulder impingement syndrome, right Shoulder impingement syndrome, left Charly Dias, TIRE RECAPPER [address] [place] [address] [facility] [address] [place] [phone] Referral ID Status Reason Start Date Expiration Date V isits Requested Visits Authorized [id number] Authorized 11/12/2023 11/11/2024 10 199 Referral ID Status Reason Start Date Expiration Date V isits Requested Visits Authorized [id number] Pending Review 11/12/2023 11/11/2024 10 199 Reason Comments Follow-up 3 month f/u Reason Onset Date Comments Medication Refill 02/01/2024 Reason Onset Date Comments Medication Refill 02/05/2024 Reason Onset Date Comments Medication Refill 03/04/2024 Reason Onset Date Comments Medication Refill 03/28/2024 Reason Onset Date Comments Medication Refill 04/28/2024 Reason Onset Date Comments Medication Refill 05/31/2024 Reason Onset Date Comments Transition Of Care 06/03/2024 Reason Onset Date Comments Medication Refill 06/10/2024 Reason Comments Transition Of Care Reason Onset Date Comments Medication Refill 07/21/2024 Reason Onset Date Comments Medication Refill 08/28/2024 Reason Comments Follow-up F/U [facility] atient states finger tips are numb.Patient stated she could not sleep due to her back pain. Reason Onset Date Comments Medication Refill 09/27/2024 Reason Onset Date Comments Medication Refill 09/27/2024 Reason Onset Date Comments ED Follow-up 10/14/2024 Reason Onset Date Comments Medication Refill 10/25/2024 Reason Comments Initial Visit (Intake) Surgery with Dr. Collier on 11/23/24, Cervical 3- Cervical 7 Laminectomy, Cervical 0-9-9-0-4-Ohdkjcwe 1-2-3-4 Posterior Instrumentation and Posteriorlateral Fusion/ Specialty Diagnoses / Procedures Referred By Melissa taveras Referred To Contact Cardiology Diagnoses Luis Eduardo Slater MD [address] [address] Phone: tel: fax: Zhao Rincon MD [address] [place] [address] Phone: tel: fax: Referral ID Status Reason Start Date Expiration Date V isits Requested Visits Authorized [id number] Pending Review 09/17/2024 09/17/202508 17 Reason Onset Date Comments Medication Refill 11/01/2024 Reason Onset Date Comments [facility] 11/11/2024 Reason Onset Date Comments Results 11/15/2024 Echo Reason Comments Follow-up follow up to discuss surgery Care Teams (unrecognized sec tion and content) Carpenter Assistant Relationship Specialty Start Date End Date Syed Canas MD [address] [facility] [place] [address] PCP - General Internal Medicine 07/17/21 Carpenter Assistant Relationship Specialty Start Date End Date Syed Canas MD [address] [facility] [place] [address] PCP - General Internal Medicine 07/17/21 Carpenter Assistant Relationship Specialty Start Date End Date Syed Canas MD [address] [facility] [place] [address] PCP - General Internal Medicine 07/17/21 Carpenter Assistant Relationship Specialty Start Date End Date Syed Canas MD [address] [facility] [place] [address] PCP - General Internal Medicine 07/17/21 Carpenter Assistant Relationship Specialty Start Date End Date Syed Canas MD [address] [facility] [place] [address] PCP - General Internal Medicine 07/17/21 Carpenter Assistant Relationship Specialty Start Date End Date Syed Canas MD [address] [facility] [place] [address] PCP - General Internal Medicine 07/17/21 Carpenter Assistant Relationship Specialty Start Date End Date Syed Canas MD [address] [facility] [place] [address] PCP - General Internal Medicine 07/17/21 Carpenter Assistant Relationship Specialty Start Date End Date Syed Canas MD [address] [facility] [place] [address] PCP - General Internal Medicine 07/17/21 Carpenter Assistant Relationship Specialty Start Date End Date Syed Canas MD [address] [facility] [place] [address] PCP - General Internal Medicine 07/17/21 Carpenter Assistant Relationship Specialty Start Date End Date Syed Canas MD [address] [facility] [place] [address] PCP - General Internal Medicine 07/17/21 Carpenter Assistant Relationship Specialty Start Date End Date Syed Canas MD [address] [place] [address] PCP - General Internal Medicine 07/17/21 Carpenter Assistant Relationship Specialty Start Date End Date Syed Canas MD [address] [place] [address] PCP - General Internal Medicine 07/17/21 Carpenter Assistant Relationship Specialty Start Date End Date Syed Canas MD [address] [place] [address] PCP - General Internal Medicine 07/17/21 Carpenter Assistant Relationship Specialty Start Date End Date Syed Canas MD [address] [place] [address] PCP - General Internal Medicine 07/17/21 Carpenter Assistant Relationship Specialty Start Date End Date Syed Canas MD [address] [place] [address] PCP - General Internal Medicine 07/17/21 Carpenter Assistant Relationship Specialty Start Date End Date Syed Canas MD [address] [place] [address] PCP - General Internal Medicine 07/17/21 Carpenter Assistant Relationship Specialty Start Date End Date Syed Canas MD [address] [place] [address] PCP - General Internal Medicine 07/17/21 Carpenter Assistant Relationship Specialty Start Date End Date Syed Canas MD [address] [facility] [place] [address] PCP - General Internal Medicine 07/17/21 Carpenter Assistant Relationship Specialty Start Date End Date Syed Canas MD [address] [place] [address] PCP - General Internal Medicine 07/17/21 Carpenter Assistant Relationship Specialty Start Date End Date Syed Canas MD [address] [place] [address] PCP - General Internal Medicine 07/17/21 Carpenter Assistant Relationship Specialty Start Date End Date Misty Hudson MD [address] [phone] PCP - General Internal Medicine 03/19/18 Carpenter Assistant Relationship Specialty Start Date End Date Syed Canas MD [address] [facility] [place] [address] PCP - General Internal Medicine 07/17/21 Carpenter Assistant Relationship Specialty Start Date End Date Misty Hudson MD [address] [place] [phone] PCP - General Internal Medicine 03/19/18 Carpenter Assistant Relationship Specialty Start Date End Date Syed Canas MD [address] [facility] [place] [address] PCP - General Internal Medicine 07/17/21 Carpenter Assistant Relationship Specialty Start Date End Date Syed Canas MD [address] [facility] [place] [address] PCP - General Internal Medicine 07/17/21 Carpenter Assistant Relationship Specialty Start Date End Date Syed Canas MD [address] [facility] [place] [address] PCP - General Internal Medicine 07/17/21 Carpenter Assistant Relationship Specialty Start Date End Date Syed Canas MD [address] [facility] [place] [address] PCP - General Internal Medicine 07/17/21 Carpenter Assistant Relationship Specialty Start Date End Date Syed Canas MD [address] [facility] [place] [address] PCP - General Internal Medicine 07/17/21 Carpenter Assistant Relationship Specialty Start Date End Date Syed Canas MD [address] [facility] [place] [address] PCP - General Internal Medicine 07/17/21 Carpenter Assistant Relationship Specialty Start Date End Date Syed Canas MD [address] [facility] [place] [address] PCP - General Internal Medicine 07/17/21 Carpenter Assistant Relationship Specialty Start Date End Date Syed Canas MD [address] [facility] [place] [address] PCP - General Internal Medicine 07/17/21 Carpenter Assistant Relationship Specialty Start Date End Date Misty Hudson MD [address] [place] [phone] PCP - General Internal Medicine 03/19/18 Carpenter Assistant Relationship Specialty Start Date End Date Syed Canas MD [address] [place] [phone] PCP - General Pulmonary Disease 09/01/22 Carpenter Assistant Relationship Specialty Start Date End Date Syed Canas MD [address] [place] [address] PCP - General Internal Medicine 07/17/21 Carpenter Assistant Relationship Specialty Start Date End Date Syed Canas MD [address] [place] [address] PCP - General Internal Medicine 07/17/21 Carpenter Assistant Relationship Specialty Start Date End Date Syed Canas MD [address] [place] [address] PCP - General Internal Medicine 07/17/21 Carpenter Assistant Relationship Specialty Start Date End Date Syed Canas MD [address] [place] [address] PCP - General Internal Medicine 07/17/21 Carpenter Assistant Relationship Specialty Start Date End Date Syed Canas MD [address] [place] [address] PCP - General Internal Medicine 07/17/21 Carpenter Assistant Relationship Specialty Start Date End Date Syed Canas MD [address] [place] [address] PCP - General Internal Medicine 07/17/21 Carpenter Assistant Relationship Specialty Start Date End Date Syed Canas MD [address] [place] [address] PCP - General Internal Medicine 07/17/21 Carpenter Assistant Relationship Specialty Start Date End Date Syed Canas MD [address] [place] [address] PCP - General Internal Medicine 07/17/21 Carpenter Assistant Relationship Specialty Start Date End Date Syed Canas MD [address] [place] [address] PCP - General Internal Medicine 07/17/21 Carpenter Assistant Relationship Specialty Start Date End Date Syed Canas MD [address] [place] [address] PCP - General Internal Medicine 07/17/21 Carpenter Assistant Relationship Specialty Start Date End Date Syed Canas MD [address] [place] [address] PCP - General Internal Medicine 07/17/21 Carpenter Assistant Relationship Specialty Start Date End Date Syed Canas MD [address] [facility] [place] [address] PCP - General Internal Medicine 07/17/21 Carpenter Assistant Relationship Specialty Start Date End Date Syed Canas MD [address] [facility] [place] [address] PCP - General Internal Medicine 07/17/21 Carpenter Assistant Relationship Specialty Start Date End Date Sj Motley MD [address] [place] [phone] PCP - General Family Medicine 11/25/22 Carpenter Assistant Relationship Specialty Start Date End Date Sj Motley MD [facility] [place] [phone] PCP - General Family Medicine 11/25/22 Carpenter Assistant Relationship Specialty Start Date End Date Sj Motley MD [address] [place] [phone] PCP - General Family Medicine 11/25/22 Carpenter Assistant Relationship Specialty Start Date End Date Sj Motley MD [address] [place] [phone] PCP - General Family Medicine 11/25/22 Carpenter Assistant Relationship Specialty Start Date End Date Sj Motley MD [address] [place] [phone] PCP - General Family Medicine 11/25/22 Carpenter Assistant Relationship Specialty Start Date End Date Sj Motley MD [address] [address] PCP - General Family Medicine 11/25/22 Carpenter Assistant Relationship Specialty Start Date End Date Sj Motley MD [facility] [place] [phone] PCP - General Family Medicine 11/25/22 Carpenter Assistant Relationship Specialty Start Date End Date Sj Motley MD [facility] [place] [phone] PCP - General Family Medicine 11/25/22 Carpenter Assistant Relationship Specialty Start Date End Date Sj Motley MD [address] [place], [place] [phone] PCP - General Family Medicine 11/25/22 Carpenter Assistant Relationship Specialty Start Date End Date Sj Motley MD [facility] [place] [phone] PCP - General Family Medicine 11/25/22 Carpenter Assistant Relationship Specialty Start Date End Date Sj Motley MD [facility] [place] [phone] PCP - General Family Medicine 11/25/22 Carpenter Assistant Relationship Specialty Start Date End Date Sj Motley MD [facility] [place] [phone] PCP - General Family Medicine 11/25/22 Carpenter Assistant Relationship Specialty Start Date End Date Sj Motley MD [address] [place], [place] [phone] PCP - General Family Medicine 11/25/22 Carpenter Assistant Relationship Specialty Start Date End Date Sj Motley MD [address] [place], [place] [phone] PCP - General Family Medicine 11/25/22 Carpenter Assistant Relationship Specialty Start Date End Date Sj Motley MD [address] [place], [place] [phone] PCP - General Family Medicine 11/25/22 Carpenter Assistant Relationship Specialty Start Date End Date Sj Motley MD [address] [place], [place] [phone] PCP - General Family Medicine 11/25/22 Carpenter Assistant Relationship Specialty Start Date End Date Sj Motley MD [address] [place], [place] [phone] PCP - General Family Medicine 11/25/22 Carpenter Assistant Relationship Specialty Start Date End Date Syed Canas MD [address] [place] [phone] PCP - General Pulmonary Disease 09/01/22 Carpenter Assistant Relationship Specialty Start Date End Date Sj Motley MD [address] [place] [address] PCP - General Family Medicine 11/25/22 Marisol Guillermo COLORING CHECKER MARKETING SALES REPRESENTATIVE Sales Enablement ConsultantApplication Support 04/24/23 04/24/23 Carpenter Assistant Relationship Specialty Start Date End Date Sj Motley MD [address] [address] PCP - General Family Medicine 11/25/22 Carpenter Assistant Relationship Specialty Start Date End Date Sj Motley MD [address] [address] PCP - General Family Medicine 11/25/22 Carpenter Assistant Relationship Specialty Start Date End Date Sj Motley MD [address] [place] [phone] PCP - General Family Medicine 11/25/22 Carpenter Assistant Relationship Specialty Start Date End Date Sj Motley MD [facility] [place] [phone] PCP - General Family Medicine 11/25/22 Carpenter Assistant Relationship Specialty Start Date End Date Sj Motley MD [address] [place] [phone] PCP - General Family Medicine 11/25/22 Carpenter Assistant Relationship Specialty Start Date End Date Sj Motley MD [address] [address] PCP - General Family Medicine 11/25/22 Carpenter Assistant Relationship Specialty Start Date End Date Sj Motley MD [address] [address] PCP - General Family Medicine 11/25/22 Carpenter Assistant Relationship Specialty Start Date End Date Sj Motley MD [address] [address] PCP - General Family Medicine 11/25/22 Carpenter Assistant Relationship Specialty Start Date End Date Sj Motley MD [address] [address] PCP - General Family Medicine 11/25/22 Carpenter Assistant Relationship Specialty Start Date End Date Sj Motley MD [address] [place] [phone] PCP - General Family Medicine 11/25/22 Carpenter Assistant Relationship Specialty Start Date End Date Sj Motley MD [address] [place] [phone] PCP - General Family Medicine 11/25/22 Carpenter Assistant Relationship Specialty Start Date End Date Sj Motley MD [address] [place] [phone] PCP - General Family Medicine 11/25/22 Carpenter Assistant Relationship Specialty Start Date End Date Sj Motley MD [address] [address] PCP - General Family Medicine 11/25/22 Carpenter Assistant Relationship Specialty Start Date End Date Sj Motley MD [address] [address] PCP - General Family Medicine 11/25/22 Carpenter Assistant Relationship Specialty Start Date End Date Sj Motley MD [address] [place], [place] [phone] PCP - General Family Medicine 11/25/22 Carpenter Assistant Relationship Specialty Start Date End Date Syed Canas MD [address] [place] [phone] PCP - General Pulmonary Disease 09/01/22 Carpenter Assistant Relationship Specialty Start Date End Date Sj Motley MD [address] [place], [place] [phone] PCP - General Family Medicine 11/25/22 Carpenter Assistant Relationship Specialty Start Date End Date Sj Motley MD [address] [place], [place] [phone] PCP - General Family Medicine 11/25/22 Carpenter Assistant Relationship Specialty Start Date End Date Sj Motley MD [address] [place], [place] [phone] PCP - General Family Medicine 11/25/22 Carpenter Assistant Relationship Specialty Start Date End Date Sj Motley MD [address] [place] [address] PCP - General Family Medicine 11/25/22 Carpenter Assistant Relationship Specialty Start Date End Date Sj Motley MD [address] [place] [address] PCP - General Family Medicine 11/25/22 Carpenter Assistant Relationship Specialty Start Date End Date Sj Motley MD [facility] [place] [phone] PCP - General Family Medicine 11/25/22 Carpenter Assistant Relationship Specialty Start Date End Date Sj Motley MD [facility] [place] [phone] PCP - General Family Medicine 11/25/22 Carpenter Assistant Relationship Specialty Start Date End Date Sj Motley MD [facility] [place] [phone] PCP - General Family Medicine 11/25/22 Carpenter Assistant Relationship Specialty Start Date End Date Sj Motley MD [address] [place], [place] [phone] PCP - General Family Medicine 11/25/22 Carpenter Assistant Relationship Specialty Start Date End Date Sj Motley MD [facility] [place] [phone] PCP - General Family Medicine 11/25/22 Carpenter Assistant Relationship Specialty Start Date End Date Sj Motley MD [facility] [place] [phone] PCP - General Family Medicine 11/25/22 Carpenter Assistant Relationship Specialty Start Date End Date Sj Motley MD [facility] [place] [phone] PCP - General Family Medicine 11/25/22 Carpenter Assistant Relationship Specialty Start Date End Date Sj Motley MD [facility] [place] [phone] PCP - General Family Medicine 11/25/22 Carpenter Assistant Relationship Specialty Start Date End Date Sj Motley MD [address] [place], [place] [phone] PCP - General Family Medicine 11/25/22 Carpenter Assistant Relationship Specialty Start Date End Date Sj Motley MD [address] [place], [place] [phone] PCP - General Family Medicine 11/25/22 Carpenter Assistant Relationship Specialty Start Date End Date Sj Motley MD [facility] [place] [phone] PCP - General Family Medicine 11/25/22 Carpenter Assistant Relationship Specialty Start Date End Date Sj Motley MD [facility] [place] [phone] PCP - General Family Medicine 11/25/22 Carpenter Assistant Relationship Specialty Start Date End Date Sj Motley MD [facility] [place] [phone] PCP - General Family Medicine 11/25/22 Sj Motley MD [facility] [place] [phone] PCP - JOE Attributed Provider - [employer] 12/16/23 08/16/50 Carpenter Assistant Relationship Specialty Start Date End Date Sj Motley MD [facility] [address] [address] PCP - General Family Medicine 11/25/22 Sj Motley MD [address] [place] [address] PCP - JOE Attributed Provider - [employer] 12/16/23 08/16/50 Carpenter Assistant Relationship Specialty Start Date End Date Sj Motley MD [address] [place], [place] [phone] PCP - General Family Medicine 11/25/22 Sj Motley MD [address] [place], [place] [phone] PCP - JOE Attributed Provider - [employer] 12/16/23 08/16/50 Carpenter Assistant Relationship Specialty Start Date End Date Sj Motley MD [address] [place] [address] PCP - General Family Medicine 11/25/22 Sj Motley MD [address] [place] [address] PCP - JOE Attributed Provider - [employer] 12/16/23 08/16/50 Carpenter Assistant Relationship Specialty Start Date End Date Sj Motley MD [address] [place] [phone] PCP - General Family Medicine 11/25/22 Sj Motley MD [facility] [place] [phone] PCP - JOE Attributed Provider - [employer] 12/16/23 08/16/50 Carpenter Assistant Relationship Specialty Start Date End Date Sj Motley MD [facility] [place] [phone] PCP - General Family Medicine 11/25/22 Sj Motley MD [address] [place], [place] [phone] PCP - JOE Attributed Provider - [employer] 12/16/23 08/16/50 Carpenter Assistant Relationship Specialty Start Date End Date Sj Motley MD [address] [place], [place] [phone] PCP - General Family Medicine 11/25/22 Sj Motley MD [address] [place] [address] PCP - JOE Attributed Provider - [employer] 12/16/23 08/16/50 Carpenter Assistant Relationship Specialty Start Date End Date Sj Motley MD [address] [place] [address] PCP - General Family Medicine 11/25/22 Sj Motley MD [address] [address] PCP - JOE Attributed Provider - [employer] 12/16/23 08/16/50 Carpenter Assistant Relationship Specialty Start Date End Date Sj Motley MD [facility] [place] [phone] PCP - General Family Medicine 11/25/22 Sj Motley MD [facility] [place] [phone] PCP - JOE Attributed Provider - [employer] 12/16/23 08/16/50 Carpenter Assistant Relationship Specialty Start Date End Date Sj Motley MD [address] [place], [place] [phone] PCP - General Family Medicine 11/25/22 Sj Motley MD [address] [place] [address] PCP - JOE Attributed Provider - [employer] 12/16/23 08/16/50 Carpenter Assistant Relationship Specialty Start Date End Date Sj Motley MD [facility] [address] [address] PCP - General Family Medicine 11/25/22 Sj Motley MD [facility] [address] [address] PCP - JOE Attributed Provider - [employer] 12/16/23 08/16/50 Carpenter Assistant Relationship Specialty Start Date End Date jS Motley MD [address] [address] PCP - General Family Medicine 11/25/22 Sj Motley MD [address] [phone] PCP - JOE Attributed Provider - [employer] 12/16/23 08/16/50 Carpenter Assistant Relationship Specialty Start Date End Date Sj Motley MD [address] [phone] PCP - General Family Medicine 11/25/22 Sj Motley MD [address] [phone] PCP - JOE Attributed Provider - [employer] 12/16/23 08/16/50 Carpenter Assistant Relationship Specialty Start Date End Date Sj Motley MD [address] [address] PCP - General Family Medicine 11/25/22 Sj Motley MD [address] [address] PCP - JOE Attributed Provider - [employer] 12/16/23 08/16/50 Carpenter Assistant Relationship Specialty Start Date End Date Sj Motley MD [address] [address] PCP - General Family Medicine 11/25/22 Sj Motley MD [address] [address] PCP - JOE Attributed Provider - [employer] 12/16/23 08/16/50 Carpenter Assistant Relationship Specialty Start Date End Date Sj Motley MD [address] [phone] PCP - General Family Medicine 11/25/22 Sj Motley MD [facility] [address] [address] PCP - JOE Attributed Provider - [employer] 12/16/23 08/16/50 Carpenter Assistant Relationship Specialty Start Date End Date Sj Motley MD [facility] [phone] PCP - General Family Medicine 11/25/22 Sj Motley MD [facility] [address] [address] PCP - JOE Attributed Provider - [employer] 12/16/23 08/16/50 Carpenter Assistant Relationship Specialty Start Date End Date Sj Motley MD [address] [address] PCP - General Family Medicine 11/25/22 Sj Motley MD [facility] [address] [address] PCP - JOE Attributed Provider - [employer] 12/16/23 08/16/50 Carpenter Assistant Relationship Specialty Start Date End Date Sj Motley MD [facility] [address] [address] PCP - General Family Medicine 11/25/22 Sj Motley MD [facility] [phone] PCP - JEO Attributed Provider - [employer] 12/16/23 08/16/50 Carpenter Assistant Relationship Specialty Start Date End Date Sj Motely MD [address] [place] [address] PCP - General Family Medicine 11/25/22 Sj Motley MD [address] [place] [phone] PCP - JOE Attributed Provider - [employer] 12/16/23 08/16/50 Kecia Corrales, manager of tires salesApplication Support 10/14/24 Carpenter Assistant Relationship Specialty Start Date End Date Sj Motley MD [address] [place] [phone] PCP - General Family Medicine 11/25/22 Sj Motley MD [address] [place] [phone] PCP - JOE Attributed Provider - [employer] 12/16/23 08/16/50 Kecia Corrales, manager of tires salesApplication Support 10/14/24 Carpenter Assistant Relationship Specialty Start Date End Date Sj Motley MD [address] [phone] PCP - General Family Medicine 11/25/22 Sj Motley MD [address] [phone] PCP - JOE Attributed Provider - [employer] 12/16/23 08/16/50 Kecia Corrales, manager of tires salesApplication Support 10/14/24 Carpenter Assistant Relationship Specialty Start Date End Date Sj Motley MD [address] [address] PCP - General Family Medicine 11/25/22 Sj Motley MD [facility] [address] [address] PCP - JOE Attributed Provider - [employer] 12/16/23 08/16/50 Kecia Corrales, manager of tires salesApplication Support 10/14/24 Carpenter Assistant Relationship Specialty Start Date End Date Sj Motley MD [address] [address] PCP - General Family Medicine 11/25/22 Sj Motley MD [facility] [address] [address] PCP - JOE Attributed Provider - [employer] 12/16/23 08/16/50 Kecia Corrales, manager of tires salesApplication Support 10/14/24 Carpenter Assistant Relationship Specialty Start Date End Date Sj Motley MD [address] [phone] PCP - General Family Medicine 11/25/22 Sj Motley MD [address] [phone] PCP - JOE Attributed Provider - [employer] 12/16/23 08/16/50 Kecia Corrales, manager of tires salesApplication Support 10/14/24 Carpenter Assistant Relationship Specialty Start Date End Date Sj Motley MD [address] [address] PCP - General Family Medicine 11/25/22 Sj Motley MD [facility] [phone] PCP - JOE Attributed Provider - [employer] 12/16/23 08/16/50 Kecia Corrales, manager of tires salesApplication Support 10/14/24 Carpenter Assistant Relationship Specialty Start Date End Date Sj Motley MD [address] [phone] PCP - General Family Medicine 11/25/22 Sj Motley MD [facility] [address] [address] PCP - JOE Attributed Provider - [employer] 12/16/23 08/16/50 Kecia Corrales, manager of tires salesApplication Support 10/14/24 Carpenter Assistant Relationship Specialty Start Date End Date Sj Motley MD [address] [phone] PCP - General Family Medicine 11/25/22 Sj Motley MD [address] [phone] PCP - [facility] Provider - [employer] 12/16/23 08/16/50 Kecia Corrales, manager of tires salesApplication Support 10/14/24 Carpenter Assistant Relationship Specialty Start Date End Date Sj Motley MD [address] [address] PCP - General Family Medicine 11/25/22 Kecia Corrales, manager of tires salesApplication Support 10/14/2411/15 Carpenter Assistant Relationship Specialty Start Date End Date Sj Motley MD [address] [address] PCP - General Family Medicine 11/25/22 Kecia Corrales, manager of tires salesApplication Support 10/14/2411/15 Carpenter Assistant Relationship Specialty Start Date End Date Sj Motley MD [address] [address] PCP - General Family Medicine 11/25/22 Carpenter Assistant Relationship Specialty Start Date End Date Sj Motley MD [address] [address] PCP - General Family Medicine 11/25/22 Scheduled Active and Recently Administ ered Medications (unrecognized section and content) Medication Order 10/25/2024 10/26/2024 10/27/2024 amoxicillin-clavulanate (AUGMENTIN) 875-125 mg per tablet 1 tablet 1 tablet, Oral, Every 12 hours scheduled, First dose on Thu10/27/24 at 1000, For 3 days, Indication: CAP 1239 (Given - Provider: Miriam Moreno LPN) atenoloL (TENORMIN) tablet 50 mg 50 mg, Oral, 2 times daily, First dose on Thu10/26/24 at 1015 1349 (Given - Provider: Audra Perry RN)2107 (Given - Provider: Michelle Gonsalves LPN) 0818 (Given - Provider: Miriam Moreno LPN) azithromycin (ZITHROMAX) tablet 250 mg 250 mg, Oral, Daily, First dose on Thu10/27/24 at 1000, For 3 doses, Indication: CAP 1239 (Given - Provider: Miriam Moreno LPN) budesonide (PULMICORT) nebulizer solution 0.5 mg 0.5 mg, Nebulization, 2 times daily, First dose on Thu10/26/24 at 1015 1024 (Given - Provider: Ginger Mcdowell, FOURCHETTE SEWER)1959 (Given - Provider: Magdalena Reed, [employer]CHETTE SEWER) 0756 (Given - Provider: Heather Cuenca, JOELLEN) cholecalciferol (vitamin D3) tablet 2,000 Units 2,000 Units, Oral, Daily, First dose on Thu10/26/24 at 1015 1349 (Given - Provider: Audra Perry RN) 0818 (Given - Provider: Miriam Moreno LPN) enoxaparin (LOVENOX) syringe 40 mg 40 mg, Subcutaneous, Daily, First dose on Thu10/25/24 at 0900, Administer in abdomen unless otherwise directed by prescriber. Notify physician if patient refuses., Indication: VTE Prophylaxis 0949 (Given - Provider: Song Miranda LPN) 0837 (Given - Provider: Audra Perry RN) 0818 (Given - Provider: Miriam Moreno LPN) ferrous sulfate tablet 325 mg 325 mg, Oral, Daily with breakfast, First dose on Thu10/27/24 at 0800 0818 (Given - Provider: Miriam Moreno LPN) folic acid (FOLVITE) tablet 1 mg 1 mg, Oral, Daily, First dose on Thu10/26/24 at 1015 1349 (Given - Provider: Audra Perry RN) 0818 (Given - Provider: Miriam Moreno LPN) guaiFENesin (MUCINEX) 12 hr tablet 1,200 mg 1,200 mg, Oral, 2 times daily, First dose on Thu10/26/24 at 1015, DO NOT CRUSH OR CHEW. 1349 (Given - Provider: Audra Perry RN)2108 (Given - Provider: Michelle Gonsalves LPN) 0818 (Given - Provider: Miriam Moreno LPN) levoFLOXacin (LEVAQUIN) IVPB 500 mg (premix) (CANCELED) 500 mg, Intravenous, at 100 mL/hr, Every 24 hours, First dose on Thu10/26/24 at 1300, Indication: Community Acquired Pneumonia (CAP) 1408 (New Bag - Provider: Audra Perry RN)1508 (Stopped - Provider: Enedina Powers RN) levothyroxine (SYNTHROID, LEVOTHROID) tablet 75 mcg 75 mcg, Oral, Every morning, First dose on Thu10/26/24 at 1015, Avoid administration with soybean flour, cottonseed meal, walnuts, and dietary fiber. Administer at least 1 hour before breakfast. Hold continuous tube feeds for at least 1 hour before until 1 hour after each dose. Flush tube with 30mL of water before and after administration. Tube feed rate may need adjusted to meet caloric needs. 1349 (Given - Provider: Audra Perry RN) 0818 (Given - Provider: Miriam Moreno LPN) magnesium oxide (MAG-OX) tablet 400 mg 400 mg, Oral, Nightly, First dose on Thu10/26/24 at 2100 2108 (Given - Provider: Michelle Gonsalves LPN) mirtazapine (REMERON) tablet 45 mg 45 mg, Oral, Nightly, First dose on Thu10/26/24 at 2100 2108 (Given - Provider: Michelle Gonsalves LPN) montelukast (SINGULAIR) tablet 10 mg 10 mg, Oral, Nightly, First dose on Thu10/26/24 at 2100 2108 (Given - Provider: Michelle Gonsalves LPN) pantoprazole (PROTONIX) Vial 40 mg 40 mg, Intravenous, Daily, First dose on Thu10/25/24 at 0900, Dilute each vial with 10 mL of 0.9% NaCl. 0806 (Given - Provider: Flori Farmer, CHENCHO) 0837 (Given - Provider: Audra Perry RN) 0932 (Given - Provider: Mateus Brian RN) potassium chloride 20 mEq in 100 mL IVPB (COMPLETED) 20 mEq, Intravenous, at 50 mL/hr, Every 2 hours, First dose on Thu10/25/24 at 1200, For 2 doses, For Non-Critical Care Patient give potassium chloride (KCL) 20 mEq IVPB x 2 bags over 2 hours each for a total dose of 40 mEq VESICANT 1140 (New Bag - Provider: Lesvia Lizarraga RN)1459 (New Bag - Provider: Song Miranda LPN) sodium chloride (PF) (NS) flush 5 mL(Linked Group 1) 5 mL, Intravenous, Every 8 hours scheduled, First dose on Thu10/25/24 at 0130, Saline lock 0130 (Canceled Entry - Provider: Ree Josue LPN - Comment: current infusion)0600 (Canceled Entry - Provider: Ree Josue LPN - Comment: current infusion)1400 (Canceled Entry - Provider: Song Miranda LPN)2200 (Not Given - Provider: Sapna Pike RN - Reason: Other - Comment: infusing) 0600 (Canceled Entry - Provider: Sapna Pike RN - Comment: INFUSING)1400 (Given - Provider: Audra Perry RN)2111 (Given - Provider: Michelle Gonsalves LPN) 0600 (Given - Provider: Enedina Powers RN)1400 (Not Given - Provider: Miriam Moreno LPN - Reason: Loss of IV access) sodium chloride soluble tablet 1,000 mg 1,000 mg (1 g), Oral, 3 times daily, First dose on Thu10/26/24 at 0945, Can crush and give in applesauce if needed 1349 (Given - Provider: Audra Perry, CHENCHO)1603 (Given - Provider: Michelle Gonsalves LPN)2108 (Given - Provider: Michelle Gonsalves LPN) 0818 (Given - Provider: Miriam Moreno LPN)1500 (Not Given - Provider: Miriam Moreno LPN - Reason: Patient/family refused) Continuous Medication Order 10/25/2024 10/26/2024 10/27/2024 dextrose 5 % and sodium chloride 0.9 % infusion (CANCELED) 75 mL/hr, Intravenous, Continuous, Starting on Thu10/24/24 at 2345 0014 (New Bag - Provider: Ree Josue LPN)0043 (Paused - Provider: Sapna Pike RN)0043 (Restarted - Provider: Sapna Pike RN)0312 (Paused - Provider: Sapna Pike RN)0313 (Restarted - Provider: Sapna Pike RN)0652 (Paused - Provider: Sapna Pike, RN)0654 (Restarted - Provider: Sapna Pike, RN)0807 (Paused - Provider: Sapna Pike, RN)0808 (Restarted - Provider: Sapna Pike, RN)0816 (Paused - Provider: Sapna Pike, RN)0819 (Restarted - Provider: Sapna Pike, RN)1149 (Paused - Provider: Sapna Pike, RN)1150 (Restarted - Provider: Sapna Pike, RN)1343 (Rate/Dose Change - Provider: Sapna Pike, RN)1408 (Stopped - Provider: Sapna Pike, RN)1453 (New Bag - Provider: Song Miranda LPN)1453 (Paused - Provider: Sapna Pike RN)1453 (Restarted - Provider: Sapna Pike, RN)1454 (Paused - Provider: Sapna Pike, RN)1454 (Restarted - Provider: Sapna Pike, RN)1454 (Paused - Provider: Sapna Pike, RN)1455 (Paused - Provider: Sapna Pike RN)1456 (Restarted - Provider: Sapna Pike, RN)1501 (Paused - Provider: Sapna Pike, RN)1501 (Paused - Provider: Sapna Pike, RN)1633 (Restarted - Provider: Flori Farmer RN)1634 (Rate/Dose Verify - Provider: Sapna Pike RN)1634 (Paused - Provider: Sapna Pike, RN)1635 (Restarted - Provider: Sapna Pike RN)1827 (Paused - Provider: Sapna Pike, RN)1828 (Restarted - Provider: Sapna Pike, RN)1846 (Paused - Provider: Sapna Pike, RN)1910 (Restarted - Provider: Sapna Pike, RN)2207 (Paused - Provider: Sapna Pike, RN)2208 (Restarted - Provider: Sapna Pike, RN) 0435 (Paused - Provider: Sapna Pike RN)0451 (Restarted - Provider: Sapna Pike RN)0452 (Stopped - Provider: Sapna Pike RN)0452 (New Bag - Provider: Sapna Pike RN)0452 (Paused - Provider: Sapna Pike RN)0452 (Restarted - Provider: Sapna Pike RN)0452 (Paused - Provider: Sapna Pike, RN)0453 (Restarted - Provider: Sapna Pike RN)0518 (Rate/Dose Verify - Provider: Sapna Pike RN)0519 (Paused - Provider: Audra Perry RN)0521 (Restarted - Provider: Audra Perry, RN)0818 (Paused - Provider: Audra Perry, RN)0826 (Restarted - Provider: Audra Perry, RN)0832 (Stopped - Provider: Audra Perry RN) sodium chloride 0.9% (NS) (CANCELED) 100 mL/hr, Intravenous, Continuous, Starting on Thu10/25/24 at 0130 0158 (New Bag - Provider: Ree Josue LPN) PRN Medication Order 10/25/2024 10/26/2024 10/27/2024 albuterol (PROVENTIL) 2.5 mg /3 mL (0.083 %) nebulizer solution 2.5 mg 2.5 mg, Nebulization, Every 6 hours PRN, wheezing, Starting on Thu10/26/24 at 0920 1959 (Given - Provider: Magdalena Reed, [employer]WER) 0754 (Given - Provider: Heather Cuenca, JOELLEN) melatonin Tab 5 mg 5 mg, Oral, Nightly PRN, Sleep, Starting on Thu10/25/24 at 0035 morphine injection 1 mg 1 mg, Intravenous, Every 4 hours PRN, moderate to severe pain, Starting on Thu10/25/24 at 0254 0311 (Given - Provider: Kamini Koch, RN)0806 (Given - Provider: Flori Farmer, RN)1631 (Given - Provider: Flori Farmer, RN) naloxone (NARCAN) injection 0.1 mg(Linked Group 2) 0.1 mg, Intravenous, As needed, opioid reversal, For respiratory rate less than or equal to 8 per minute., Starting on Thu10/25/24 at 0254, Mix nalOXone (NARCAN) 0.4 mg (1mL) with 9 mL of Normal Saline to total 10 mL. Administer 0.1 mg (2.5mL) IV Push every 2 minutes until respiratory rate is 10 or greater. naloxone (NARCAN) injection 0.4 mg(Linked Group 2) 0.4 mg, Intravenous, As needed, opioid reversal, patient is pulseless, breathless, and unresponsive, Starting on Thu10/25/24 at 0254, Call a code first, then administer naloxone dose undiluted IV Push over 30 seconds. ondansetron (ZOFRAN) injection 4 mg 4 mg, Intravenous, Every 6 hours PRN, nausea, vomiting, Starting on Thu10/25/24 at 0035 sodium chloride (PF) (NS) flush 5 mL(Linked Group 1) 5 mL, Intravenous, As needed, line care, Starting on Thu10/25/24 at 0035 sodium chloride 0.9% (NS)(Linked Group 1) 0-150 mL/hr, Intravenous, As needed, To flush line after IV infusions when no maintenance IV ordered or a compatibility issue. Infuse 20ml at the same rate as the secondary infusion, Starting on Thu10/25/24 at 0035, Run as Primary IV. NOT intended for KVO. 1406 (New Bag - Provider: Audra Perry, RN)1408 (Stopped - Provider: Enedina Powers, CHENCHO) Linked Groups Order Group 1: Saline lock IV (CANCELED) Routine, Continuous, Starting on Thu10/25/24 at 0036, Until Specified And sodium chloride (PF) (NS) flush 5 mLJump to med 5 mL, Intravenous, As needed, line care, Starting on Thu10/25/24 at 0035 And sodium chloride (PF) (NS) flush 5 mLJump to med 5 mL, Intravenous, Every 8 hours scheduled, First dose on Thu10/25/24 at 0130, Saline lock And sodium chloride 0.9% (NS)Jump to med 0-150 mL/hr, Intravenous, As needed, To flush line after IV infusions when no maintenance IV ordered or a compatibility issue. Infuse 20ml at the same rate as the secondary infusion, Starting on Thu10/25/24 at 0035, Run as Primary IV. NOT intended for KVO. Group 2: naloxone (NARCAN) injection 0.1 mgJump to med 0.1 mg, Intravenous, As needed, opioid reversal, For respiratory rate less than or equal to 8 per minute., Starting on Thu10/25/24 at 0254, Mix nalOXone (NARCAN) 0.4 mg (1mL) with 9 mL of Normal Saline to total 10 mL. Administer 0.1 mg (2.5mL) IV Push every 2 minutes until respiratory rate is 10 or greater. And Notify physician (CANCELED) STAT, Until discontinued, Starting on Thu10/25/24 at 0255, Until Specified, Respiratory rate less than: 8, For respiratory rate less than or equal to 8, notify physician and/or appropriate staff for additional orders. And naloxone (NARCAN) injection 0.4 mgJump to med 0.4 mg, Intravenous, As needed, opioid reversal, patient is pulseless, breathless, and unresponsive, Starting on Thu10/25/24 at 0254, Call a code first, then administer naloxone dose undiluted IV Push over 30 seconds. Scheduled Medication Order 12/11/2024 12/12/2024 12/13/2024 atenoloL (TENORMIN) tablet 50 mg 50 mg, Oral, 2 times daily, First dose on Thu12/04/24 at 0900 0849 (Given - Provider: Harini Vickers RN)2013 (Given - Provider: Deborah Marin, CHENCHO) 0932 (Given - Provider: Kely Elizabeth RN)2042 (Given - Provider: Deborah Marin RN) 0946 (Given - Provider: Aylin Clement RN) budesonide (PULMICORT) nebulizer solution 0.5 mg 0.5 mg, Nebulization, 2 times daily, First dose on Thu12/04/24 at 0900 0706 (Given - Provider: Rosalind Richard, JOELLEN)192 (Given - Provider: Walter Lynn RRT) 07 (Given - Provider: Rosalind Richard RRT)194 (Given - Provider: Maxine Cuello) 0737 (Not Given - Provider: Heather Salomon RRT - Reason: Patient/family refused - Comment: pt nauseated, does not feel she can do aerosol) doxycycline (VIBRAMYCIN) oral solid 100 mg 100 mg, Oral, 2 times daily, First dose on Thu12/07/24 at 2100, For 7 days, Do not crush or open. Patient to sit up after administration for 30 minutes after taking and take with at least 8 ounces of water Take 1 hour before or 4 hours after metallic cations (e.g.antacids, aluminum,magnesium, calcium, ferrous sulfate), Indication: Sinusitis 0500 (Given - Provider: Vic Arellano, CHENCHO)2012 (Given - Provider: Deborah Mrain, CHENCHO) 0617 (Given - Provider: Deborah Marin, RN)2042 (Given - Provider: Deborah Marin, CHENCHO) 0559 (Given - Provider: Deborah Marin, CHENCHO) enoxaparin (LOVENOX) syringe 30 mg 30 mg, Subcutaneous, Daily, First dose on Thu12/05/24 at 1115, Administer in abdomen unless otherwise directed by prescriber. Notify physician if patient refuses., Prophylaxis Indication: VTE Prophylaxis 0850 (Given - Provider: Harini Vickers, RN) 0933 (Given - Provider: Kely Elizabeth, RN) 0945 (Given - Provider: Aylin Clement, RN) ferrous sulfate tablet 325 mg 325 mg, Oral, Daily with breakfast, First dose on Thu12/07/24 at 0800 0849 (Given - Provider: Harini Vickers, RN) 0936 (Given - Provider: Kely Elizabeth, RN) 0947 (Given - Provider: Aylin Clement, RN) folic acid (FOLVITE) tablet 1 mg 1 mg, Oral, Daily, First dose on Thu12/04/24 at 0900 0849 (Given - Provider: Harini Vickers, RN) 0932 (Given - Provider: Kely Elizabeth, CHENCHO) 0947 (Given - Provider: Aylin Clement, CHENCHO) ipratropium-albuteroL (DUO-NEB) 0.5-2.5 mg/3 ml nebulizer solution 3 mL (CANCELED) 3 mL, Inhalation, Every 6 hours scheduled (RT), First dose on Thu12/04/24 at 0800 0144 (Given - Provider: Murray Ashton, FOURCHETTE SEWER)0706 (Given - Provider: Rosalind Richard, [employer]CHE[employer]E SEWER)1444 (Given - Provider: Rosalind Richard RRT)1926 (Given - Provider: Walter Lynn, JOELLEN) 0200 (Not Given - Provider: Walter Lynn RRT - Reason: Patient/family refused)0721 (Given - Provider: Rosalind Richard RRT)1326 (Hold - Provider: Rosalind Richard RRT - Reason: Patient/family refused - Comment: Pt said she's not available and we'll have to just skip on this one) ipratropium-albuteroL (DUO-NEB) 0.5-2.5 mg/3 ml nebulizer solution 3 mL 3 mL, Inhalation, 3 times daily (RT), First dose (after last reorder) on Thu12/12/24 at 2000 1941 (Given - Provider: Maxine Cuello) 0736 (Not Given - Provider: Heather Salomon, [employer]CHE[employer]E SEWER - Reason: Patient/family refused - Comment: pt nauseated, does not feel she can do aerosol)1400 (Due) levothyroxine (SYNTHROID, LEVOTHROID) tablet 75 mcg 75 mcg, Oral, Every morning, First dose (after last modification) on Thu12/06/24 at 0900, Avoid administration with soybean flour, cottonseed meal, walnuts, and dietary fiber. Administer at least 1 hour before breakfast. Hold continuous tube feeds for at least 1 hour before until 1 hour after each dose. Flush tube with 30mL of water before and after administration. Tube feed rate may need adjusted to meet caloric needs. 0849 (Given - Provider: Harini Vickers RN) 0932 (Given - Provider: Kely Elizabeth RN) 0946 (Given - Provider: Aylin Clement, CHENCHO) loratadine (CLARITIN) tablet 10 mg 10 mg, Oral, Daily, First dose on 12/04/24 at 0900 0848 (Not Given - Provider: Harini Vickers RN - Reason: Patient/family refused) 0900 (Not Given - Provider: Kely Elizabeth RN - Reason: Patient/family refused) 0947 (Not Given - Provider: Aylin Clement RN - Reason: Patient/family refused) magnesium oxide (MAG-OX) tablet 400 mg 400 mg, Oral, 2 times daily, First dose (after last modification) on Thu12/09/24 at 1900 0848 (Given - Provider: Harini Vickers RN)2017 (Given - Provider: Deborah Marin RN) 0936 (Given - Provider: Kely Elizabeth, CHENCHO)1807 (Given - Provider: Aylin Clement, CHENCHO) 0947 (Given - Provider: Aylin Clement RN) mirtazapine (REMERON) tablet 45 mg 45 mg, Oral, Nightly, First dose on 12/04/24 at 2099 2013 (Given - Provider: Deborah Marin, CHENCHO) 2042 (Given - Provider: Deborah Marin, CHENCHO) montelukast (SINGULAIR) tablet 10 mg 10 mg, Oral, Nightly, First dose on 12/04/24 at 2099 2012 (Given - Provider: Deborah Marin, CHENCHO) 2044 (Given - Provider: Deborah Marin, RN) pantoprazole (PROTONIX) EC tablet 40 mg 40 mg, Oral, Daily, First dose on 12/04/24 at 0900, DO NOT CRUSH OR CHEW. 0848 (Given - Provider: Harini Vickers RN) 0932 (Given - Provider: Kely Elizabeth RN) 0947 (Given - Provider: Aylin Clement, CHENCHO) polyethylene glycol (MIRALAX) powder 17 g 17 g, Oral, Daily, First dose on 12/04/24 at 0900 0849 (Given - Provider: Harini Vickers RN) 09 (Not Given - Provider: Kely Elizabeth RN - Reason: Patient/family refused) 0945 (Not Given - Provider: Aylin Clement RN - Reason: Patient/family refused) senna-docusate (SENNA-S) 8.6-50 mg per tablet 1 tablet 1 tablet, Oral, 2 times daily, First dose on Thu12/06/24 at 0900, Hold for loose stools Do Not Crush or Chew if administering orally due to bitter taste. May be crushed if given via tube. 0849 (Given - Provider: Harini Vickers RN)2013 (Given - Provider: Deborah Marin RN) 0900 (Not Given - Provider: Kely Elizabeth RN - Reason: Patient/family refused)2100 (Not Given - Provider: Deborah Marin RN - Reason: Patient/family refused) 0945 (Not Given - Provider: Aylin Clement RN - Reason: Patient/family refused) sodium chloride (PF) (NS) flush 5 mL(Linked Group 1) 5 mL, Intravenous, Every 8 hours scheduled, First dose on Thu12/04/24 at 0600, Saline lock 0600 (Canceled Entry - Provider: Vic Arellano RN)1400 (Given - Provider: Harini Vickers RN)2200 (Given - Provider: Deborah Marin, CHENCHO) 0600 (Given - Provider: Deborah Marin, RN)1400 (Given - Provider: Kely Elizabeth RN)2200 (Given - Provider: Deborah Marin, CHENCHO) 0600 (Given - Provider: Deborah Marin RN)1400 (Due) sodium chloride soluble tablet 1,000 mg 1,000 mg (1 g), Oral, 3 times daily with meals, First dose on Thu12/11/24 at 1200 1235 (Given - Provider: Harini Vickers RN)1619 (Given - Provider: Harini Vickers RN) 0800 (Not Given - Provider: Kely Elizabeth RN - Reason: Patient/family refused)1327 (Given - Provider: Keyl Elizabeth RN)1700 (Not Given - Provider: Kely Elizabeth RN - Reason: Patient/family refused) 0945 (Given - Provider: Aylin Clement RN)1200 (Due) PRN Medication Order 12/11/2024 12/12/2024 12/13/2024 bisacodyL (DULCOLAX) suppository 10 mg 10 mg, Rectal, Daily PRN, constipation, Starting on 12/04/24 at 0424, Try oral medications first for constipation. Try rectal medication if oral meds are ineffective, not tolerated, or not ordered. magnesium hydroxide (MOM) 400 mg/5 mL suspension 2,400 mg 2,400 mg (30 mL), Oral, Daily PRN, constipation, Starting on 12/04/24 at 0424, If no bowel movement in 24 hours after Sennosides (SENNA) administration. melatonin Tab 10 mg 10 mg, Oral, Nightly PRN, sleep, Starting on 12/10/24 at 1937 2005 (Return to Cabinet - Provider: Deborah Marin RN) 17 (Given - Provider: Deborah Marin RN)2044 (Given - Provider: Deborah Marin, CHENCHO) metaxalone (SKELAXIN) tablet 800 mg 800 mg, Oral, 3 times daily PRN, muscle spasms, Starting on 12/12/24 at 1137 naloxone (NARCAN) injection 0.1 mg(Linked Group 2) 0.1 mg, Intravenous, As needed, opioid reversal, For respiratory rate less than or equal to 8 per minute., Starting on 12/04/24 at 0930, Mix nalOXone (NARCAN) 0.4 mg (1mL) with 9 mL of Normal Saline to total 10 mL. Administer 0.1 mg (2.5mL) IV Push every 2 minutes until respiratory rate is 10 or greater. naloxone (NARCAN) injection 0.4 mg(Linked Group 2) 0.4 mg, Intravenous, As needed, opioid reversal, patient is pulseless, breathless, and unresponsive, Starting on 12/04/24 at 0930, Call a code first, then administer naloxone dose undiluted IV Push over 30 seconds. ondansetron (ZOFRAN) injection 4 mg(Linked Group 3) 4 mg, Intravenous, Every 6 hours PRN, nausea, vomiting, Starting on 12/04/24 at 0424, Use oral route first, if tolerated. 0651 (See Alternativ e - Provider: Deborah Marin RN) ondansetron (ZOFRAN-ODT) disintegrating tablet 4 mg(Linked Group 3) 4 mg, Oral, Every 6 hours PRN, nausea, vomiting, Starting on 12/04/24 at 0424, Use oral route first, if tolerated. Formulation requires tablet remain in sealed package until immediately prior to dose being administered. 0651 (Given - Provider: Deborah Marin RN) oxyCODONE-acetaminophen (PERCOCET) 5-325 mg per tablet 1 tablet 1 tablet, Oral, Every 4 hours PRN, moderate to severe pain, Starting on 12/04/24 at 1453 0459 (Given - Provider: Vic Arellano RN)0939 (Given - Provider: Harini Vickers RN)1619 (Given - Provider: Harini Vickers, CHENCHO)2019 (Given - Provider: Deborah Marin RN) 0018 (Given - Provider: Deborah Marin RN)0927 (Given - Provider: Kely Elizabeth RN)1807 (Given - Provider: Aylin Clement, CHENCHO)2357 (Given - Provider: Deborah Marin, CHENCHO) 0945 (Given - Provider: Aylin Clement, CHENCHO) sodium chloride (PF) (NS) flush 5 mL(Linked Group 1) 5 mL, Intravenous, As needed, line care, Starting on 12/04/24 at 0418 sodium chloride 0.9 % nebulizer solution 3 mL 3 mL, Nebulization, As needed, congestion, Starting on 12/10/24 at 1023 sodium chloride 0.9% (NS)(Linked Group 1) 0-150 mL/hr, Intravenous, As needed, To flush line after IV infusions when no maintenance IV ordered or a compatibility issue. Infuse 20ml at the same rate as the secondary infusion, Starting on 12/04/24 at 0418, Run as Primary IV. NOT intended for KVO. 0800 (Stopped - Provider: Aylin Clement RN) Linked Groups Order Group 1: Saline lock IV (CANCELED) Routine, Continuous, Starting on Thu12/04/24 at 0419, Until Specified And sodium chloride (PF) (NS) flush 5 mLJump to med 5 mL, Intravenous, As needed, line care, Starting on Thu12/04/24 at 0418 And sodium chloride (PF) (NS) flush 5 mLJump to med 5 mL, Intravenous, Every 8 hours scheduled, First dose on Thu12/04/24 at 0600, Saline lock And sodium chloride 0.9% (NS)Jump to med 0-150 mL/hr, Intravenous, As needed, To flush line after IV infusions when no maintenance IV ordered or a compatibility issue. Infuse 20ml at the same rate as the secondary infusion, Starting on Thu12/04/24 at 0418, Run as Primary IV. NOT intended for KVO. Group 2: naloxone (NARCAN) injection 0.1 mgJump to med 0.1 mg, Intravenous, As needed, opioid reversal, For respiratory rate less than or equal to 8 per minute., Starting on Thu12/04/24 at 0930, Mix nalOXone (NARCAN) 0.4 mg (1mL) with 9 mL of Normal Saline to total 10 mL. Administer 0.1 mg (2.5mL) IV Push every 2 minutes until respiratory rate is 10 or greater. And Notify physician (CANCELED) STAT, Until discontinued, Starting on Thu12/04/24 at 0931, Until Specified, Respiratory rate less than: 8, For respiratory rate less than or equal to 8, notify physician and/or appropriate staff for additional orders. And naloxone (NARCAN) injection 0.4 mgJump to med 0.4 mg, Intravenous, As needed, opioid reversal, patient is pulseless, breathless, and unresponsive, Starting on Thu12/04/24 at 0930, Call a code first, then administer naloxone dose undiluted IV Push over 30 seconds. Group 3: ondansetron (ZOFRAN-ODT) disintegrating tablet 4 mgJump to med 4 mg, Oral, Every 6 hours PRN, nausea, vomiting, Starting on Thu12/04/24 at 0424, Use oral route first, if tolerated. Formulation requires tablet remain in sealed package until immediately prior to dose being administered. Or ondansetron (ZOFRAN) injection 4 mgJump to med 4 mg, Intravenous, Every 6 hours PRN, nausea, vomiting, Starting on 12/04/24 at 0424, Use oral route first, if tolerated. FOR RECORDS PERTAINING TO PATIENTS WHO ARE OR HAVE BEEN ENROLLED IN A CHEMICAL DEPENDENCY/SUBSTANCEABUSE PROGRAM, SOME INFORMATION MAY BE OMITTED. This clinical summary was aggregated from multiple sources. Caution should be exercised in using it in the provision of clinical care. This summary normalizes information from multiple sources, and as a consequence, information in this document may materially change the coding, format and clinical context of patient data. In addition, data may be omitted in some cases. CLINICAL DECISIONS SHOULD BE BASED ON THE PRIMARY CLINICAL RECORDS. [facility]. provides no warranty or guarantee of the accuracy or completeness of information in this document.
[2025-03-08] MEDS: Fluticasone 0.05% 1 SPRAY NASAL.SRY 2 SPRAY NASAL (22:41)
[2025-03-08] MEDS: Senna/Docusate Sodium 1 Tablet 2 TABLET PO (22:42)
[2025-03-08] MEDS: Cholecalciferol (VIT D3) 25 MCG TABLET (1,000 UNITS) 50 MCG PO (22:43)
--- NOTE | 2025-03-08 22:47 | NURSING ---
Patient requests Oxy and Skelaxin administration concurrent at this time, educated on possibility of lethargy, patient states I always take them together, it's the only way it helps my pain. Patient denies history of lethargy or somnolence when meds administered together and continues to request both drugs at this time. A&Ox4.
[2025-03-08] MEDS: 0.9% Saline Lock 10 ML Syringe IV (23:16)
[2025-03-08] MEDS: 0.9% Normal Saline (1000mL) 1,000 ML 999 ML IV (23:16)
[2025-03-09 00:57] VITALS: BP 153/84; PULSE 81; RESP 16
--- NOTE | 2025-03-09 04:16 | NURSING ---
Written communication left for Dr. Bradley regarding note from admission nurse to put Nucala and Prolia on hold during admission to TCU, large amount of green discharge that appears to be vaginal. Patient complaining of vaginal itch and burning with urination, and medication communication r/t Bactroban. Patient states she applies Bactroban to skin tears at home. Patient reported history of 10-12 falls since May 2024.
[2025-03-09 07:20] VITALS: PULSE 84; RESP 16; O2SAT 96
[2025-03-09] MEDS: Budesonide Respules 0.5 MG/2 ML AMPUL.NEB. INHALATION ×2 (07:20→19:25)
[2025-03-09 08:06] LABS: Hematocrit 27.2 % (37-47); Hemoglobin 9.4 g/dL (12.0-15.0); Immature Granulocytes Count 0.050 X10^3/uL (0.0-0.0); Mean Corp Hgb Conc 34.6 g/dL (32-36); Mean Corpuscular Volume 91.0 fL (81-99); Mean Platelet Vol. 9.1 fl (6.2-12.0); NRBC Flagged by Analyzer 0 % (0-5); Platelet Count 323 K/mm3 (150-450); RBC Distribution Width CV 13.6 % (11.6-14.6); RBC Distribution Width SD 44.6 fl (35.1-43.9); Red Blood Count 2.99 M/mm3 (4.2-5.4); White Blood Count 7.0 K/mm3 (4.4-11.0)
[2025-03-09 08:25] LABS: Mucous, Urine 0 SEEN /hpf (<or=2+); Red Blood Cells-Urine 0 SEEN /hpf (0-5); Squamous Epithelial Cells - UA 0 SEEN /hpf (5-10)
[2025-03-09 09:03] LABS: Color, Urine Yellow (Yellow); Glucose, Dipstick Normal (Normal); Ketone-Dipstick Negative (Negative); Leukocyte Esterase-Dipstick 500 /ul (Negative); Nitrite-Dipstick Negative (Negative); Occult Blood-Urine 150 /ul (Negative); Protein-Dipstick 30 mg/dl (Negative); Specific Gravity, Urine 1.010 (1.002-1.030); Urine Bilirubin Dipstick Negative (Negative)
[2025-03-09 09:14] VITALS: BP 108/65; PULSE 74; RESP 18; TEMP 36.4; O2SAT 98
[2025-03-09] MEDS: FLUCONAZOLE 150 MG TABLET PO (09:16)
[2025-03-09] MEDS: Cholecalciferol (VIT D3) 25 MCG TABLET (1,000 UNITS) 50 MCG PO ×2 (09:18→22:28)
[2025-03-09] MEDS: Zinc Sulfate 50 mg zinc (220 mg) ORAL capsule PO (09:18)
[2025-03-09] MEDS: Fluticasone 0.05% 1 SPRAY NASAL.SRY 2 SPRAY NASAL ×2 (09:19→22:27)
[2025-03-09] MEDS: 0.9% Saline Lock 10 ML Syringe IV ×2 (09:32→22:30)
[2025-03-09 10:02] LABS: Anion Gap 10 (5-15); BUN 9 mg/dL (4-19); BUN/Creat Ratio 21.8 RATIO (10-20); Calcium,Total 7.9 mg/dL (7.6-11.0); Carbon Dioxide 21.5 mmol/L (21.0-32.0); Chloride 93 mmol/L (98-108); Glucose 119 mg/dL (70-99); Potassium 4.2 mmol/L (3.3-5.1)
[2025-03-09] MEDS: Tuberculin,Purif.prot.deriv. 50 TU/ML Vial 0.1 ML ID (11:48)
--- NOTE | 2025-03-09 14:54 | NURSING ---
Called Dr. Collier's office, spoke with Khushi. Orders to change incision site dressing daily, cleanse with chloraprep and cover with DSD. Call office for any concerns.
--- NOTE | 2025-03-09 15:12 | CASEMGMT ---
Social Work SW met with patient to complete initial assessment. Introduced self and role. Verified/updated contacts. Pt confirmed code status as full code. Educated to [facility] insurance with [employer] 03/10 and continued stay is not guaranteed with each review. Educate to DC by day 21 as TCU does not accept Medicaid, which would cover pt's copays. Pt explained she was at [facility] since November but did not want to return after her surgery. Pt's goal is to return home and not be a LTC resident at a facility. SW will continue to follow for DC planning. Sweta Arriaga HAULAGE ENGINE OPERATOR ACCOUNT SERVICES ANALYST
[2025-03-09] MEDS: Glucerna Shake 120 ML LIQUID PO (17:42)
[2025-03-09 19:25] VITALS: PULSE 75; RESP 16; O2SAT 96
[2025-03-09 22:18] VITALS: BP 106/58; PULSE 78
[2025-03-10] MEDS: Budesonide Respules 0.5 MG/2 ML AMPUL.NEB. INHALATION ×2 (07:36→18:53)
[2025-03-10 07:37] VITALS: PULSE 79; RESP 16; O2SAT 96
[2025-03-10 07:40] VITALS: BP 127/74; PULSE 74; RESP 18; TEMP 36.4; O2SAT 97
--- NOTE | 2025-03-10 08:24 | PHA.CONS_ITS ---
Documented by User: Kenya Epstein 03/10/25 12:53 TCU RX Drug Regimen Review Subjective/Objective Subjective/Objective Subjective: TCU Admission. 74 YOF hospitalized for cervical spondylosis with myelopathy, underwent cervical decompression/laminectomy 02/23/[address] Aldo devlin, postoperative course complicated by acute respiratory failure with hypoxia 2/2 pneumothorax resolved with chest tube, hyponatremia, hypokalemia. Admitted to TCU with debility for strengthening and rehabilitation. Objective: Allergies benztropine (From Cogentin) Allergy (Severe, Verified 09/30/23 14:10) hallucinations levofloxacin (From Levaquin) Allergy (Severe, Verified 09/30/23 14:10) Stomach pain lithium Allergy (Severe, Verified 09/30/23 14:10) Nausea/Vom/Diarrhea niacin Allergy (Severe, Verified 09/30/23 14:10) Rash Penicillins Allergy (Severe, Verified 09/30/23 14:10) Hives soybean Allergy (Intermediate, Verified 09/30/23 14:10) Rash Sulfa (Sulfonamide Antibiotics) Allergy (Intermediate, Verified 09/30/23 14:10) Hives trazodone Allergy (Intermediate, Verified 09/30/23 14:10) breathing problems sulfamethoxazole (From Bactrim) Allergy (Verified 09/30/23 14:10) Unknown trimethoprim (From Bactrim) Allergy (Verified 09/30/23 14:10) Unknown candesartan Adverse Reaction (Intermediate, Verified 09/30/23 14:10) Palpitations and depression hydrochlorothiazide Adverse Reaction (Intermediate, Verified 09/30/23 14:10) Palpitations and depression cephalexin (From Keflex) Adverse Reaction (Verified 09/30/23 14:10) yeast indection Current Medications Generic Name Dose Route Start Last Admin Trade Name Freq PRN Reason Stop Dose Admin Acetaminophen 1,000 mg 03/08/25 21:49 03/10/25 06:34 Acetaminophen 500 Mg Tablet PO 1,000 mg Q6H PRN PRN Administration Pain Score 1-5 Albuterol Sulfate 2.5 mg 03/08/25 20:42 Albuterol 2.5 Mg/3 Ml Vial.Neb. INHALATION Q6H PRN PRN WHEEZING Atenolol 50 mg 03/08/25 22:00 03/09/25 22:28 Atenolol 50 Mg Tablet PO 50 mg BID BISHOP Administration Protocol Budesonide 0.5 mg 03/08/25 22:00 03/10/25 07:36 Budesonide Respules 0.5 Mg/2 Ml Ampul.Neb. INHALATION 0.5 mg BID.RT BISHOP Administration Calamine/Phenol 1 applic 03/09/25 10:00 03/09/25 22:27 Menthol/Lanolin/Calamine/Znox 113 Gm Tube TOPICAL 1 applic BID [facility] Administration Protocol Cefdinir 300 mg 03/10/25 10:00 Cefdinir 300 Mg Capsule PO 03/17/25 10:01 Q12 BISHOP Cholecalciferol 50 mcg 03/08/25 22:00 03/09/25 22:28 Cholecalciferol (Vit D3) 25 Mcg Tablet (1,000 Units) PO 50 mcg BID [facility] Administration Compound Med 3 click 03/08/25 22:00 03/09/25 22:23 Arthritis Pain Compound 60 Click Tube TOPICAL Not Given BID [facility] Protocol Dicyclomine HCl 20 mg 03/08/25 22:00 03/10/25 06:29 Dicyclomine 10 Mg Capsule PO 03/15/25 22:01 20 mg ACHS BISHOP Administration Enoxaparin Sodium 40 mg 03/09/25 06:00 03/10/25 06:29 Enoxaparin 40 Mg/0.4 Ml Syringe SC 40 mg DAILY@0600 [facility] Administration Ferrous Sulfate 325 mg 03/09/25 08:00 03/09/25 09:19 Ferrous Sulfate 325 Mg Tablet PO 325 mg BREAKFAST [facility] Administration Fluticasone Propionate 2 spray 03/08/25 22:00 03/09/25 22:27 Fluticasone 0.05% 1 [place] Nasal.Sry NASAL 2 spray BID BISHOP Administration Folic Acid 1.5 mg 03/09/25 08:00 03/09/25 09:17 Folic Acid 1 Mg Tablet PO 1.5 mg BREAKFAST [facility] Administration Glycerin/Hypromellose/Polyethylene 1 drp 03/08/25 20:06 Glycerin/Hypromellose/Eke767 15 Ml Bottle EACH EYE Q1H PRN DRY EYES Guaifenesin 1,200 mg 03/08/25 22:00 03/09/25 22:27 Guaifenesin 1,200 Mg Tablet PO 1,200 mg BID BISHOP Administration Lansoprazole 30 mg 03/09/25 10:00 03/09/25 09:18 Lansoprazole 15 Mg Capsule.Dr PO 30 mg DAILY BISHOP Administration Levothyroxine Sodium 75 mcg 03/09/25 06:00 03/10/25 06:29 Levothyroxine 75 Mcg Tablet PO 75 mcg DAILY@0600 BISHOP Administration Magnesium Citrate 300 ml 03/08/25 21:56 Magnesium Citrate 300 Ml PO DAILY PRN PRN Constipation Metaxalone 800 mg 03/08/25 20:32 03/10/25 06:34 Metaxalone 800 Mg Tablet PO 800 mg TID PRN PRN Administration MUSCLE SPASM Metronidazole 500 mg 03/09/25 10:00 03/09/25 22:27 Metronidazole 500 Mg Tablet PO 03/16/25 10:01 500 mg BID BISHOP Administration Mirtazapine 45 mg 03/08/25 22:00 03/09/25 22:28 Mirtazapine 15 Mg Tablet PO 45 mg QHS BISHOP Administration Montelukast Sodium 10 mg 03/08/25 22:00 03/09/25 22:28 Montelukast 10 Mg Tablet PO 10 mg HS [facility] Administration Multivitamins/Minerals 1 tablet 03/09/25 08:00 03/09/25 09:19 Multivitamins,Ther W-Minerals Tablet PO 1 tablet BREAKFAST [facility] Administration Non-Formulary Medication 100 mg 03/08/25 20:15 Ubrelvy PO HS PRN MIGRAINE SYMPTOMS Nutritional Formula (Lactose Free) 120 ml 03/09/25 17:45 03/09/25 17:42 Glucerna Shake 120 Ml Liquid PO 120 ml TIDCM BISHOP Administration Ondansetron HCl 4 mg 03/08/25 20:11 03/09/25 22:45 Ondansetron Odt 4 Mg Tablet PO 4 mg Q8H PRN PRN Administration NAUSEA Oxycodone HCl 5 mg 03/08/25 21:49 03/10/25 06:34 Oxycodone 5 Mg Tablet PO 5 mg Q4H PRN PRN Administration Pain Score 6-10 or Pre PT/OT Senna/Docusate Sodium 2 tablet 03/08/25 22:00 03/09/25 22:24 Senna/Docusate Sodium 1 Tablet PO Not Given BID [facility] Sodium Chloride 10 - 40 ml 03/08/25 22:19 03/09/25 22:30 0.9% Saline Lock 10 Ml Syringe IV 10 ml UD PRN Administration SALINE FLUSH Sodium Chloride 1 gm 03/10/25 10:00 Sodium Chloride 1 Gm Tablet PO BID BISHOP Tuberculin PPD 0.1 ml 03/16/25 10:00 Tuberculin,Purif.Prot.Deriv. 50 Tu/Ml Vial ID 03/16/25 10:01 X1 ONE Venlafaxine HCl 150 mg 03/09/25 10:00 03/09/25 09:17 Venlafaxine Xr 150 Mg Capsule PO 150 mg DAILY BISHOP Administration Zinc Sulfate 50 mg 03/09/25 10:00 03/09/25 09:18 Zinc Sulfate 50 Mg Zinc (220 Mg) Oral Capsule PO 50 mg DAILY BISHOP Administration Problem List Pneumothorax (Acute) Acute respiratory failure with hypoxia (Acute) Iron deficiency anemia (Acute) Essential (primary) hypertension (Acute) Coronary artery disease (Acute) Hyponatremia (Acute) Hypokalemia (Acute) Cervical myelopathy (Acute) Cervical spondylosis (Acute) Debility (Acute) COPD (chronic obstructive pulmonary disease) (Chronic) Hypothyroid (Chronic) GERD (gastroesophageal reflux disease) (Chronic) Vital Signs Temp Pulse Resp BP Pulse Ox O2 Del Method 97.5 F L 79 16 106/58 L 96 Room Air 03/09/25 09:14 03/10/25 07:37 03/10/25 07:37 03/09/25 22:18 03/10/25 07:37 03/10/25 07:37 Oxygen Delivery Method Room Air Sodium 125 mmol/L (133-145) L 03/09/25 07:58 Potassium 4.2 mmol/L (3.3-5.1) 03/09/25 07:58 Chloride 93 mmol/L (98-108) L 03/09/25 07:58 Carbon Dioxide 21.5 mmol/L (21.0-32.0) 03/09/25 07:58 Anion Gap 10 (5-15) 03/09/25 07:58 BUN 9 mg/dL (4-19) 03/09/25 07:58 Creatinine 0.42 mg/dL (0.70-1.20) L 03/09/25 07:58 Est GFR (MDRD) Non-Af 102 (>60) 03/09/25 07:58 BUN/Creatinine Ratio 21.8 RATIO (10-20) H 03/09/25 07:58 Glucose 119 mg/dL (70-99) H 03/09/25 07:58 Assessment/Plan: 1. Pain: acetaminophen 1000mg PO Q6H PRN pain 1-5 and oxycodone 5mg PO Q6H PRN pain 6-10. Resident has had 4 doses of acetaminophen and 5 doses of oxycodone for pain scores of 8-9 in the head/neck/generalized pain. Please continue to monitor for increased pain, PRN usage, constipation, respiratory depression, falls (BEERs). 2. Bowel: senna/docusate 2T PO BID and magnesium citrate 300mL PO daily PRN constipation. No PRN doses given. Please consider changing senna/docusate to PRN constipation as Resident has refused 3/4 doses. Thanks. Last documented bowel movement was 03/10/25. 3. DVT prophylaxis: enoxaparin 40mg SC daily. Please continue to monitor for S/S of bleeding/DVT, hemoglobin (last 9.4g/dL), platelets (last 323,000) and renal function (no weight in computer to check dosing for renal function, called nursing to update but not in computer as time of note writing, SCr 0.42mg/dL). 4. UTI: cefdinir 300mg PO BID thru 03/17/25. Please continue to monitor for S/S of infection, urine culture (preliminary GNR, CFU>100,000/mL), diarrhea, renal function (no weight in computer to check dosing for renal function, called nursing to update but not in computer as time of note writing, SCr 0.42mg/dL), stool discoloration. 5. CAD: atenolol 50mg PO BID. Please continue to monitor BP (range 89/55- 153/84), HR (range 68-84). 6. Hypothyroidism: levothyroxine 75mcg PO daily. Please consider ordering a TSH as the last level was from 2020. Thanks. Please continue to monitor for S/S of hypo/hyperthyroidism. 7. IBS: dicyclomine 20mg PO ACHS thru 03/15/25. Please continue to monitor for anticholinergic side effects (BEERs), dementia/delirium (BEERs), abdominal cramping. 8. GERD: lansoprazole 30mg PO daily. Please continue to monitor for S/S of GERD and diarrhea (BEERs). 9. Muscle spasms: metaxalone 800mg PO TID PRN muscle spasms. Resident has received 4 doses. Please continue to monitor for anticholinergic side effects (BEERs), PRN usage, drowsiness and GI side effects. 10. Asthma: budesonide 0.5mg nebulized solution BID, albuterol 2.5mg nebulized solution Q6H PRN wheezing (no doses given) and montelukast 10mg PO daily. Please continue to monitor for PRN usage, S/S of wheezing/SOB, drowsiness. 11. Bacterial vaginosis: metronidazole 500mg PO BID thru 03/16/25. Please continue to monitor for improvement in symptoms, metallic taste, diarrhea. 12. Allergic rhinitis: fluticasone nasal spray 0.05% 2 sprays nasal BID. Please continue to monitor for S/S of allergies and nasal irritation. 13. Congestion: guaifenesin 1200mg PO BID. Please continue to monitor for congestion. 14. Nausea: ondansetron 4mg PO Q8H PRN nausea. Resident has had 1 dose of zofran. Please continue to monitor for nausea, drowsiness and PRN usage. 15. Dry Eyes: Artificial Tears 1 gtt OU Q1H PRN dry eyes. No PRN doses given. Please continue to monitor for PRN usage and dry eyes. 16. Migraines: Ubrevly 100mg PO QHS PRN migraines. Non-formulary, family to supply. No doses given. Please continue to monitor for migraines and PRN usage. 17. Hyponatremia: sodium chloride 1gm PO BID (started this morning). Please continue to monitor sodium (last 122mmol/L, decreased from 125mmol/L 03/09). Resident on venlafaxine and mirtazapine both of which can cause hyponatremia (BEERs). 18. Folate deficiency/vitamin D deficiency/zinc deficiency/iron deficiency (hemoglobin 9.4g/dL/nutrition: folic acid 1.5mg PO daily, cholecalciferol 50mcg PO daily, ferrous sulfate 325mg PO breakfast, multivitamin with minerals 1T PO daily and zinc sulfate 50mg PO daily. Please consider ordering a vitamin D level as the last level is from 2021. Thanks. Please consider ordering iron studies as there is no panel in the chart. Thanks. Please continue to monitor hemoglobin, dark stools and constipation. Assessment/Plan for indications treated with psychotropic medications: 1. Depression: venlafaxine 100mg PO daily. Please see physician note regarding GDR. Monitor for diarrhea, nausea, appetite/weight loss, anxiety or drowsiness, suicidal thoughts or behaviors (Boxed Warning), symptoms of bleeding, symptoms of serotonin syndrome (including agitation, confusion, hyperreflexia, rigidity/myoclonus, tremor, tachycardia, tachypnea), sodium levels (last Na = 122mmol/L). Monitor blood pressure. BP range since admission = 68-84. Monitor for orthostatic hypotension, including postural dizziness, syncope or falls. Check orthostatic vital signs if suspicion of orthostasis. Monitor for hepatotoxicity (abdominal pain, nausea, jaundice, dark urine, AST/ALT as clinically indicated). Monitor for efficacy including resident symptoms, behaviors and indications of distress. Monitor for tolerability including mental status, cognition, excessive sleepiness, withdrawal or decreased participation in activities and decline in physical functioning. Maximize use of nonpharmacologic/behavioral interventions to facilitate dose reduction or discontinuation as appropriate. Please evaluate the appropriateness of GDR unless contraindicated. If appropriate, GDR should be attempted in 2 separate quarters within the first year of use or admission to TCU. If GDR attempted, monitor resident symptoms/behaviors. 2. Insomnia: mirtazapine 45mg PO QHS. Please see physician note regarding GDR. Monitor for drowsiness, dizziness or confusion, appetite and body weight (can cause weight gain), dry mouth, abnormal movements/movement disorders (including akathisia, dyskinesia, acute dystonia or restless leg syndrome), suicidal thoughts or behaviors (Boxed Warning). Monitor for constipation. Last documented BM =03/09/25. Monitor lipids as indicated (can increase serum cholesterol and triglycerides). FLP = 2020. Monitor blood pressure. BP range since admission =68-84. Monitor for orthostatic hypotension, including postural dizziness, syncope or falls. Check orthostatic vital signs if suspicion of orthostasis. Monitor for efficacy including resident symptoms, behaviors and indications of distress. Monitor for tolerability including mental status, cognition, excessive sleepiness, withdrawal or decreased participation in activities and decline in physical functioning. Maximize use of nonpharmacologic/behavioral interventions to facilitate dose reduction or discontinuation as appropriate. Please evaluate the appropriateness of GDR unless contraindicated. If sathish ropriate, GDR should be attempted in 2 separate quarters within the first year of use or admission to TCU. If GDR attempted, monitor resident symptoms/behaviors. Medical chart and medication regimen reviewed. The following medication irregularities or issues were identified: 1. Senna/docusate 2T PO BID. Please consider changing senna/docusate to PRN constipation as Resident has refused 3/4 doses. Thanks. 2. Levothyroxine 75mcg PO daily. Please consider ordering a TSH as the last level was from 2020. Thanks. 3. Cholecalciferol 50mcg PO daily. Please consider ordering a vitamin D level as the last level is from 2021. Thanks. 4. Ferrous sulfate 325mg PO breakfast. Please consider ordering iron studies as there is no panel in the chart. Thanks. Date Date of Note: 03/10/25 Documented by User: Dr. Dominik Bradley MD 03/10/25 13:10 TCU RX Drug Regimen Review Provider Comments Provider responsibility Provider Comments to Recommendations by Pharmacy Agree
[2025-03-10 09:05] LABS: Anion Gap 8 (5-15); BUN 11 mg/dL (4-19); BUN/Creat Ratio 22.8 RATIO (10-20); Calcium,Total 8.2 mg/dL (7.6-11.0); Carbon Dioxide 23.1 mmol/L (21.0-32.0); Chloride 91 mmol/L (98-108); Glucose 115 mg/dL (70-99); Potassium 4.4 mmol/L (3.3-5.1)
[2025-03-10 09:28] LABS: Osmolality, Serum 262 mOsm/KG (280-301)
[2025-03-10] MEDS: Fluticasone 0.05% 1 SPRAY NASAL.SRY 2 SPRAY NASAL (09:39)
[2025-03-10] MEDS: Zinc Sulfate 50 mg zinc (220 mg) ORAL capsule PO (09:44)
[2025-03-10] MEDS: Cholecalciferol (VIT D3) 25 MCG TABLET (1,000 UNITS) 50 MCG PO ×2 (09:44→20:11)
--- NOTE | 2025-03-10 11:58 | NURSING ---
Corn Sheller Operator Note; Activity Asset: Nitin Johnson is independent in her choice of daily activities. She stated at this time she is in to much pain for anything. She has her smartphone, will watch tv and read, if she needs anything she will let us know. Staff will remind her of weekly activities and respect her right to say no.
--- NOTE | 2025-03-10 12:16 | CASEMGMT ---
Social Work SW collaborated with Human Performance Technologist and Director of TCU on pt's insurance coverage since pt disclosed she has been at [facility] since November 2024. SW concerned about Medicare day usage. Human Performance Technologist verified pt's Medicare days and she used 30 skilled days at [facility], thus admitting to TCU on day . Copays begin on day 21, and Medicaid would cover those copays. Since TCU does not accept Medicaid, pt does not have copay coverage and TCU is not receiving reimbursement for those copays. Director instructed for this worker to plan for pt's DC. - SW received notice from [facility] that son is requesting a call from this worker anyhow. SW phoned son and listened to his questions, which are related to insurance, LOS and DC plans. SW explained the above situation to son. Son expressed frustration with the lack of communication from [facility], pt's discharging hospital, as son claims he was not involved in pt's discharge plans. Son stated he thought pt was returning to [facility], not TCU. Son understands this is not a reflection on this worker or TCU and agrees to assist with selection of SNFs for referrals. SW offered to provide a list of SNFs that are INN with pt's insurance that includes quality and resource data. Son agreed to receive via email. SW sent via [employer]. SW to speak with pt as well and provide her with a list. Son appreciative of assistance. - SW spoke with pt at bedside. Explained above situation and conversation with son. Answered pt's questions, and provided pt with printed SNF list. Pt requested referral to [facility] and [facility]. JAILENE explained per [facility] insurance website, those are not INN facilities, but SW offered to place referral to verify. Pt appreciative. SW will continue to follow. - Sent referral to [facility] and [facility] via [employer]. Sweta Arriaga MSW WAREHOUSE LOGISTICS MANAGER
[2025-03-10 15:56] LABS: Osmolality, Urine 515 mOsm/KG
--- NOTE | 2025-03-10 17:04 | NURSING ---
NA 122. New orders for sodium supplement, urine/blood osmolality, urine NA. Also NO for Cefdinir until 03/17. Patient made aware.
[2025-03-10 18:53] VITALS: PULSE 79; RESP 16
[2025-03-10 20:06] VITALS: BP 111/68; PULSE 73
[2025-03-11 07:56] VITALS: PULSE 70; RESP 18; O2SAT 96
[2025-03-11] MEDS: Albuterol 2.5 MG/3 ML VIAL.NEB. INHALATION (07:56)
[2025-03-11] MEDS: Budesonide Respules 0.5 MG/2 ML AMPUL.NEB. INHALATION ×2 (07:56→18:52)
[2025-03-11] MEDS: Zinc Sulfate 50 mg zinc (220 mg) ORAL capsule PO (08:10)
[2025-03-11] MEDS: Cholecalciferol (VIT D3) 25 MCG TABLET (1,000 UNITS) 50 MCG PO ×2 (08:10→20:10)
[2025-03-11] MEDS: Fluticasone 0.05% 1 SPRAY NASAL.SRY 2 SPRAY NASAL ×2 (08:11→20:09)
[2025-03-11 09:58] LABS: Anion Gap 11 (5-15); BUN 9 mg/dL (4-19); BUN/Creat Ratio 16.6 RATIO (10-20); Calcium,Total 8.0 mg/dL (7.6-11.0); Carbon Dioxide 21.4 mmol/L (21.0-32.0); Chloride 89 mmol/L (98-108); Glucose 113 mg/dL (70-99); Iron 27 ug/dL (50-170); Iron Binding Capacity,Unsat 205 ug/dL (228-428); Potassium 4.3 mmol/L (3.3-5.1); Vitamin D,25 Hydroxy 41.0 ng/mL (30-100)
[2025-03-11 10:19] LABS: Iron Binding Capacity,Total 232 ug/dL (250-450)
[2025-03-11 12:48] VITALS: BP 108/53; PULSE 70; RESP 16; TEMP 36.6; O2SAT 97
[2025-03-11 13:32] VITALS: BMI 18.6
[2025-03-11 18:52] VITALS: PULSE 77; RESP 16
[2025-03-11] MEDS: Arthritis Pain Compound 60 CLICK TUBE TOPICAL (20:07)
[2025-03-11 20:23] VITALS: O2SAT 96
[2025-03-12 06:50] VITALS: PULSE 71; RESP 16; O2SAT 94
[2025-03-12] MEDS: Budesonide Respules 0.5 MG/2 ML AMPUL.NEB. INHALATION ×2 (06:50→18:57)
[2025-03-12 07:08] LABS: Anion Gap 10 (5-15); BUN 9 mg/dL (4-19); BUN/Creat Ratio 21.0 RATIO (10-20); Calcium,Total 8.7 mg/dL (7.6-11.0); Carbon Dioxide 23.4 mmol/L (21.0-32.0); Chloride 98 mmol/L (98-108); Estimated Creatinine Clearance 44.98 ml/min (50-250); Glucose 149 mg/dL (70-99); Potassium 4.2 mmol/L (3.3-5.1)
[2025-03-12 08:07] VITALS: BP 130/70; PULSE 85; RESP 17; TEMP 36.9; O2SAT 98
[2025-03-12] MEDS: Fluticasone 0.05% 1 SPRAY NASAL.SRY 2 SPRAY NASAL ×2 (08:20→22:14)
[2025-03-12] MEDS: Zinc Sulfate 50 mg zinc (220 mg) ORAL capsule PO (08:22)
[2025-03-12] MEDS: Cholecalciferol (VIT D3) 25 MCG TABLET (1,000 UNITS) 50 MCG PO ×2 (08:22→22:16)
[2025-03-12 10:00] VITALS: O2SAT 97
--- NOTE | 2025-03-12 17:24 | NURSING ---
pt tolerated dressing changes well
[2025-03-12 18:57] VITALS: PULSE 73; RESP 16
[2025-03-12] MEDS: Arthritis Pain Compound 60 CLICK TUBE TOPICAL (22:13)
[2025-03-13 06:24] LABS: Anion Gap 10 (5-15); BUN 14 mg/dL (4-19); BUN/Creat Ratio 31.7 RATIO (10-20); Calcium,Total 8.7 mg/dL (7.6-11.0); Carbon Dioxide 24.2 mmol/L (21.0-32.0); Chloride 96 mmol/L (98-108); Estimated Creatinine Clearance 44.98 ml/min (50-250); Glucose 132 mg/dL (70-99); Potassium 4.0 mmol/L (3.3-5.1)
[2025-03-13] MEDS: Budesonide Respules 0.5 MG/2 ML AMPUL.NEB. INHALATION ×2 (06:45→20:17)
[2025-03-13 07:14] VITALS: PULSE 80; RESP 18
--- NOTE | 2025-03-13 09:05 | CASEMGMT ---
Social Work [facility] does not have any beds. SW left two messages with [facility] on update from referral. SW left VM with son to follow up. Sweta Arriaga PROPERTY ECONOMIST GRAPHIC ART DESIGNER
[2025-03-13 10:00] VITALS: BP 135/78; PULSE 71; RESP 16; TEMP 36.4; O2SAT 97
[2025-03-13] MEDS: Zinc Sulfate 50 mg zinc (220 mg) ORAL capsule PO (10:28)
[2025-03-13] MEDS: Cholecalciferol (VIT D3) 25 MCG TABLET (1,000 UNITS) 50 MCG PO ×2 (10:28→22:24)
[2025-03-13] MEDS: Fluticasone 0.05% 1 SPRAY NASAL.SRY 2 SPRAY NASAL ×2 (10:28→22:22)
--- NOTE | 2025-03-13 11:44 | CASEMGMT ---
Social Work Pt and friend, Selena, present in pt's room requesting to speak with this worker. SW presented to room and Selena was just ending a phone conversation with pt's son, Emery. SW introduced self and role. Selena asked additional clarifying questions on insurance coverage and needing to DC. SW answered and reexplained copay days and TCU not being INN with Medicaid. SW has not received outcome from [facility] at this time and requested additional SNFs. Pt and Selena discussed and agreed to referrals to [facility] and [facility]. SW noted. - SW sent referrals to [facility] and [facility] via [facility]. Sweta Arriaga LANGUAGE ARTS TEACHER PARK SUPERINTENDENT
[2025-03-13 20:17] VITALS: PULSE 68; RESP 16
[2025-03-13 20:49] VITALS: PULSE 71; RESP 16; O2SAT 97
[2025-03-13 22:15] VITALS: BP 119/62; PULSE 74; O2SAT 95
--- NOTE | 2025-03-14 06:56 | NURSING ---
Patient A&Ox3, frequently requesting fluids despite 1500cc fluid restriction, education provided regarding fluid restriction and importance of maintaining as ordered, patient verbalizes understanding, voices frustration with need for fluid restriction. Feelings validated, 1:1 provided. No distress observed or reported. Denies further requests. Call light and personal items within reach. Bed in lowest position.
[2025-03-14 07:24] VITALS: PULSE 68; RESP 16; O2SAT 95
[2025-03-14] MEDS: Budesonide Respules 0.5 MG/2 ML AMPUL.NEB. INHALATION ×2 (07:24→19:30)
--- NOTE | 2025-03-14 08:46 | CASEMGMT ---
Addendum entered by Sweta Arriaga 03/14/25 13:30: SW spoke with pt several times about SNF choices. Pt stated she called [facility] and they likely do not have beds, but referred to [facility]. SW to place official referrals to both locations to determine availability. Pt is agreeable to go to [facility]. - referrals sent via [facility]. Original Note: Social Work SW phoned son to update that [facility] provided outcome - they do not have beds but are INN; [facility] do not have beds either. SW requested additional SNF choices. Son wants pt to choose additional choices. SW agreed and will follow up with pt. SW will continue to follow. Sweta Arriaga CIVIL PREPAREDNESS OFFICER PIG CASTING MACHINE OPERATOR
[2025-03-14 08:52] VITALS: BP 125/60; PULSE 71; RESP 18; TEMP 37; O2SAT 96
[2025-03-14] MEDS: Zinc Sulfate 50 mg zinc (220 mg) ORAL capsule PO (08:54)
[2025-03-14] MEDS: Cholecalciferol (VIT D3) 25 MCG TABLET (1,000 UNITS) 50 MCG PO ×2 (08:54→21:51)
[2025-03-14] MEDS: Fluticasone 0.05% 1 SPRAY NASAL.SRY 2 SPRAY NASAL ×2 (08:56→21:48)
--- NOTE | 2025-03-14 13:58 | CASEMGMT ---
Addendum entered by Sweta Arriaga 03/15/25 08:02: [facility] stated they are not INN with pt's insurance. The other SNFs can accept. SW scheduled to meet with pt and family at POC meeting this morning and will update. The goal is for pt to choose preference and have precert started for transfer. Original Note: Social Work SW returned to pt's room to update that both [facility] do not [facility] beds. SW requested to refer to the remaining SNFs in [facility] that are INN and determine who can accept pt, then pt can choose preference, as DC needs to be coordinated. Pt agreed. SW referred to [facility], [facility], [facility], [facility]. Sweta Arriaga DINING SERVICES MANAGER CERTIFIED ENERGY MANAGER
[2025-03-14 19:30] VITALS: PULSE 67; RESP 20; O2SAT 97
[2025-03-14 22:04] VITALS: BP 121/67; PULSE 69; RESP 16
--- NOTE | 2025-03-15 06:08 | NURSING ---
Patient refused AM accucheck despite education, agitated, raises voice, states I don't need my blood sugars checked. Written communication left for Dr. Bradley.
[2025-03-15 07:09] VITALS: PULSE 73; RESP 16; O2SAT 95
[2025-03-15] MEDS: Budesonide Respules 0.5 MG/2 ML AMPUL.NEB. INHALATION ×2 (07:10→20:25)
--- NOTE | 2025-03-15 08:35 | NURSING ---
Home Specialist Note; MDS for 03/15/2025 Complete
[2025-03-15 09:14] VITALS: BP 97/59; PULSE 78; RESP 17; TEMP 36.9; O2SAT 96
[2025-03-15] MEDS: Fluticasone 0.05% 1 SPRAY NASAL.SRY 2 SPRAY NASAL ×2 (09:18→22:32)
[2025-03-15] MEDS: Zinc Sulfate 50 mg zinc (220 mg) ORAL capsule PO (09:20)
[2025-03-15] MEDS: Cholecalciferol (VIT D3) 25 MCG TABLET (1,000 UNITS) 50 MCG PO ×2 (09:20→22:34)
[2025-03-15 10:00] VITALS: PULSE 59; RESP 17; O2SAT 96
--- NOTE | 2025-03-15 10:13 | CASEMGMT ---
Social Work IDT met with patient at bedside and son via conference call for care plan meeting. Discussed patient's progress in PT/OT/SN/RDN. Pt is aware of [facility] insurance and planning for transfer for continued skilled care. SW informed pt that [facility] and [facility] can accept. Requested FOC. Pt to research each facility and notify this worker. SW answered pt's questions extensively on star ratings with SNFs, etc. SW will coordinate cot transport at time of transport. Therapy and pt confirmed she cannot tolerate a w/c transport. SW will continue to follow. SW completed BIMS () and PHQ-2 () for MDS assessment. Sweta Arriaga SUPERVISOR PRODUCTION BOAT LOADER HELPER
--- NOTE | 2025-03-15 11:40 | CASEMGMT ---
Social Work Insurance issued LCD 03/17, DC 03/18. SW presented to pt's room and friend, Selena was present. SW provided NOMNC to pt and friend assisted in helping pt understand the discontinuation of skilled services. Thus pt would not admit to new SNF under [facility] skilled services, but [facility] intermediate care. Pt verbalized understanding. SW answered further questions on skilled vs intermediate care to friend. friend will contact facilities to gather more information and converse with pt, then notify this worker of decision. SW will remain available for further questions. Sweta Arriaga PUBLIC ADDRESS SERVICER BOOT AND SHOE REPAIRMAN
--- NOTE | 2025-03-15 16:15 | CASEMGMT ---
Addendum entered by Sweta Arriaga 03/16/25 07:49: Correction: Pt will DC on 03/17 Original Note: Social Work SW returned to pt's room to inquire about FOC. Pt stated she spoke with Dean at [facility] and that is her FOC. SW to finalize DC and inquire about auth. - SW messaged Dean at [facility], and they can accept with with LOC for Medicaid, since pt is cut from skilled services. SW inquired about DC 03/17, if LOC is approved. Dean confirmed. - SW spoke with pt to inform of above and pt agreeable to DC to [facility] on 03/16. - SW to complete PASRR and submit for Medicaid LOC and schedule transport. Plan: DC 03/17 to [facility], Medicaid, intermediate Sweta Arriaga TEACHER LIP READING CRIME SCENE ANALYST
[2025-03-15 20:25] VITALS: PULSE 88; RESP 18; O2SAT 96
[2025-03-15] MEDS: Albuterol 2.5 MG/3 ML VIAL.NEB. INHALATION (20:25)
--- NOTE | 2025-03-15 20:38 | DS.PCM_ITS ---
Providers Date of Admission: 03/08/25 Primary Care Physician: Dr. Lashell Larsen MD Reason For Visit: cervical spondylosis with myelopathy Diagnosis Discharge Diagnosis (1) Debility: Status: Acute Code(s): R53.81 - Other malaise (2) Cervical spondylosis: Status: Acute Code(s): M47.812 - Spondylosis without myelopathy or radiculopathy, cervical region (3) Cervical myelopathy: Status: Acute Code(s): G95.9 - Disease of spinal cord, unspecified (4) Hypokalemia: Status: Acute Code(s): E87.6 - Hypokalemia (5) Hyponatremia: Status: Acute Code(s): E87.1 - Hypo-osmolality and hyponatremia (6) Coronary artery disease: Status: Acute Code(s): I25.10 - Atherosclerotic heart disease of [place] coronary artery without angina pectoris (7) COPD (chronic obstructive pulmonary disease): Status: Chronic Code(s): J44.9 - Chronic obstructive pulmonary disease, unspecified Qualifiers: COPD type: unspecified COPD Qualified Code(s): J44.9 - Chronic obstructive pulmonary disease, unspecified (8) GERD (gastroesophageal reflux disease): Status: Chronic Code(s): K21.9 - Gastro-esophageal reflux disease without esophagitis (9) Essential (primary) hypertension: Status: Acute Code(s): I10 - Essential (primary) hypertension (10) Hypothyroid: Status: Chronic Code(s): E03.9 - Hypothyroidism, unspecified (11) Iron deficiency anemia: Status: Acute Code(s): D50.9 - Iron deficiency anemia, unspecified (12) Acute respiratory failure with hypoxia: Status: Acute Code(s): J96.01 - Acute respiratory failure with hypoxia (13) Pneumothorax: Status: Acute Code(s): J93.9 - Pneumothorax, unspecified Plan 74 year old female with below past medical history hospitalized for cervical spondylosis with myelopathy, underwent cervical decompression/laminectomy 02/23/[address] Collier, postoperative course complicated by acute respiratory failure with hypoxia 2/2 pneumothorax resolved with chest tube, hyponatremia, hypokalemia, admitted to TCU with debility, here for rehabilitation, strengthening, prior to discharge home alone. * Debility - PT/OT. * Pain - Tylenol 1000mg q6 prn pain (1-5), Oxycodone 5mg q4 prn pain (6-10). * Bowel - senna/colace 2 tablets bid, Magnesium citrate 300mL daily prn. * Adult immunization - Administer pneumonia vaccine, covid vaccine, flu vaccine as appropriate. * DVT prophylaxis - Lovenox 40mg sc daily. * Hypotension - Normal Saline 1 liter iv bolus, recheck blood pressure. * Asthma - Budesonide 0.5mg inhaled bid, Albuterol 2.5mg q6 prn, Singulair 10mg daily. * CAD - Atenolol 50mg bid. * Vitamin D deficiency - D3 50mcg daily. * IBS - Bentyl 20mg achs thru 03/15/2025. * Allergic rhinitis - Flonase 2 sprays nasal bid. * Folate deficiency - Folic acid 1.5mg daily. * Congestion - Mucinex 1200mg bid. * GERD - Lansoprazole 30mg daily. * Hypothyroidism - Levothyroxine 75mcg daily. * Muscle spasm - Skelaxin 800mg tid prn. * Nutrition - MVI 1 tablet daily. * Nausea - Zofran 4mg q8 prn. * Dry eyes - Artificial tears 1gtt ou q1h prn. * Migraines - Ubrelvy 100mg daily prn. * Zinc deficiency - Zinc 50mg daily. * Bacterial vaginosis - Flagyl 500mg po bid x 7 days. * Yeast vaginitis - Fluconazole 150mg po x 1 dose. * Dysuria - order UA, C+S. The following psychotropic medication was present on admission: Venlafaxine 100mg daily. Psychotropic medication therapy is indicated for a diagnosis of: Depression. Based on my clinical evaluation, continuation of the medication is necessary at this time. Gradual dose reduction plan (select one): ____ GDR will be attempted. Will monitor patient symptoms and behaviors in response to GDR. __x__ GRD contraindicated. 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 The following psychotropic medication was present on admission: Mirtazapine 45mg qhs. Psychotropic medication therapy is indicated for a diagnosis of: Insomnia. Based on my clinical evaluation, continuation of the medication is necessary at this time. Gradual dose reduction plan (select one): ____ GDR will be attempted. Will monitor patient symptoms and behaviors in response to GDR. _x___ GRD contraindicated. 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 Medications at Discharge Home Medications valerian root 450 mg capsule mg PO 05/22/20 folic acid 1 mg tablet 1.5 mg PO DAILY supplement 08/26/21 disability placard #1 ea 01/30/22 lansoprazole 30 mg capsule,delayed release (Prevacid) 30 mg PO DAILY GERD #90 caps 04/29/22 guaifenesin 1,200 mg tablet, extended release 12 hr (Mucinex) 1,200 mg PO BID PRN cough, congestion #180 tabs 06/19/22 fluticasone propionate 50 mcg/actuation nasal spray,suspension (Flonase Allergy Relief) 2 spray intranasal BID allergies #3 BOTTLES 07/03/22 atenolol 50 mg tablet 50 mg PO BID cannot tolerate candesartan for BP #180 tabs 07/30/22 albuterol sulfate 2.5 mg/3 mL (0.083 %) solution for nebulization 2.5 mg (3 mL) inhalation Q8H PRN shortness of breath or wheezing #270 mL 08/19/22 budesonide 0.5 mg/2 mL suspension for nebulization 0.5 mg (2 mL) inhalation BID shortness of breath #180 mL 10/22/22 denosumab 60 mg/mL subcutaneous syringe (Prolia) 60 mg subcut [id number] osteoporosis #1 mL 10/31/22 glycopyrrolate 9 mcg-formoterol 4.8 mcg HFA aerosol inhaler (Bevespi Aerosphere) 2 puff inhalation QAM AND QPM COPD 3 months #10.7 grams 11/04/22 ljrlqhgbzigt-Hx-opwq-minerals 27 mg-0.4 mg tablet 1 tab PO DAILY #90 tabs 11/06/22 acetaminophen 500 mg tablet 1,000 mg (2 x 500 mg) PO Q6H PRN PRN Pain Score 1-5 #0 tabs 03/15/25 cholecalciferol (vitamin D3) 25 mcg (1,000 unit) tablet 50 mcg (2 x 25 mcg (1,000 unit)) PO BID #0 tabs 03/15/25 dicyclomine 10 mg capsule 20 mg (2 x 10 mg) PO ACHS #0 caps 03/15/25 enoxaparin 40 mg/0.4 mL subcutaneous syringe 40 mg (0.4 mL) subcut DAILY@0600 #0 mL 03/15/25 ferrous sulfate 325 mg (65 mg iron) tablet (FeroSul) 325 mg PO BREAKFAST #0 tabs 03/15/25 levothyroxine 75 mcg tablet 75 mcg PO DAILY@0600 #0 tabs 03/15/25 menthol 0.44 %-zinc oxide 20.6 % topical ointment (Calmoseptine) 1 applic topical BID #0 grams 03/15/25 metaxalone 800 mg tablet 800 mg PO TID PRN PRN Muscle Spasm #0 tabs 03/15/25 mirtazapine 15 mg tablet 45 mg (3 x 15 mg) PO QHS #0 tabs 03/15/25 montelukast 10 mg tablet 10 mg PO HS #0 tabs 03/15/25 multivitamin-iron 9 mg-folic acid 400 mcg-calcium and minerals tablet (Therapeutic-M) 1 tab PO BREAKFAST #0 tabs 03/15/25 oxycodone 5 mg tablet 5 mg PO Q4H PRN PRN Pain Score 6-10 Or Pre Pt/Ot 3 days #18 tabs 03/15/25 peg [id number] 1 %-0.2 %-0.2 % eye drops (Artificial Tears ([id number])) 1 drp EACH EYE Q1H PRN DRY EYES #0 mL 03/15/25 sodium chloride 1,000 mg soluble tablet 1,000 mg PO TIDCM #0 tabs 03/15/25 zinc sulfate 50 mg zinc (220 mg) capsule 50 mg PO DAILY #0 caps 03/15/25 Hospital Course Operations - (See below.) Procedures None Summary of Care Provided Minutes Spent on Discharge: 35 Hospital Course: 4 year old female with below past medical history hospitalized for cervical spondylosis with myelopathy, underwent cervical decompression/laminectomy 02/23/[address] Collier, postoperative course complicated by acute respiratory failure with hypoxia 2/2 pneumothorax resolved with chest tube, hyponatremia, hypokalemia, admitted to TCU with debility, here for rehabilitation, strengthening, prior to discharge home alone. Discharge 03/17/2025 [facility], [facility], Medicaid. Physical Exam Const alert General Appearance: cooperative HEENT normocephalic Eyes PERRL and EOMs intact bilaterally Neck supple, no JVD and no carotid bruits Resp normal respiratory effort, normal air movement and clear to auscultation bilaterally Cardio regular rate and regular rhythm GI normal to inspection, nondistended, normoactive bowel sounds, non-tender and non-distended Extremity normal capillary refill General Extremity: Negative for edema Skin no rashes or lesions noted General Skin Exam: no breakdown Psych affect normal Appearance: appropriate Weight / BMI Weight Weight: 47.627 kg Body Mass Index (BMI) 18.6 ABG / Lab / Microbiology Data 03/09/25 07:58 03/13/25 05:06 Microbiology: Microbiology 03/09/25 08:12 Urine Catheter - Catheter Urine Culture - Final Proteus mirabilis D/C Instructions Discharge Activity: Return to Normal Activity, May Shower and Use Walker Weight Bearing Status: Weight bearing as tolerated Call your doctor if you observe: Fever of 101 or Higher, Inability to urinate, Inability to have a bowel movement, Shortness of breath, Dizziness, Fainting spells, Swelling in the ankles, Chest pain and Uncontrolled pain DC O2, CPAP, BIPAP Needs Home O2 Discharge instructions: No Additional Instructions: Discharge 03/17/2025 [facility], Medicaid. Please Follow Up With: Post-Op Kathleen Emerson When: As scheduled. Meaningful Use Info Meaningful Use Meaningful Use Diagnoses (Choose all that apply): None applicable Discharge Plan Admission Admit Date/Time: 03/08/25 20:29 Primary Reason for Your Visit: Debility. Attending Provider: Dominik Bradley Chi Primary Care Provider: Lashell Larsen Instructions Additional Instructions / Restrictions: Discharge 03/17/2025 [facility], Medicaid. Discharge Orders/Prescriptions Prescriptions: New acetaminophen 500 mg Tablet 1,000 mg PO Q6H PRN PRN (Reason: Pain Score 1-5) Qty: 0 0RF cholecalciferol (vitamin D3) 25 mcg (1,000 unit) Tablet 50 mcg PO BID Qty: 0 0RF ferrous sulfate [FeroSul] 325 mg (65 mg iron) Tablet 325 mg PO BREAKFAST Qty: 0 0RF dicyclomine 10 mg Capsule 20 mg PO ACHS Qty: 0 0RF enoxaparin 40 mg/0.4 mL Syringe 40 mg subcut DAILY@0600 Qty: 0 0RF levothyroxine 75 mcg Tablet 75 mcg PO DAILY@0600 Qty: 0 0RF menthol-zinc oxide [Calmoseptine] 0.44-20.6 % Ointment 1 applic topical BID Qty: 0 0RF Protocol: *Topical Application Instructions APPLICATION INSTRUCTIONS: bilat buttocks metaxalone 800 mg Tablet 800 mg PO TID PRN PRN (Reason: Muscle Spasm) Qty: 0 0RF montelukast 10 mg Tablet 10 mg PO HS Qty: 0 0RF mirtazapine 15 mg Tablet 45 mg PO QHS Qty: 0 0RF Artificial Tears([id number]) 1-0.2-0.2 % Drops 1 drp EACH EYE Q1H PRN (Reason: DRY EYES) Qty: 0 0RF sodium chloride 1,000 mg Tablet,Soluble 1,000 mg PO TIDCM Qty: 0 0RF Therapeutic-M 9 mg iron-400 mcg Tablet 1 tab PO BREAKFAST Qty: 0 0RF zinc sulfate 50 mg zinc (220 mg) Capsule 50 mg PO DAILY Qty: 0 0RF oxycodone 5 mg Tablet 5 mg PO Q4H PRN PRN (Reason: Pain Score 6-10 Or Pre Pt/Ot) 3 Days Qty: 18 0RF Continued folic acid 1 mg tablet 1.5 mg PO DAILY lansoprazole [Prevacid] 30 mg capsule,delayed release(DR/EC) 30 mg PO DAILY Qty: 90 3RF Rx Instructions: Take 30 minutes before breakfast on an empty stomach Mucinex 1,200 mg tablet extended release 12hr 1,200 mg PO BID PRN (Reason: cough, congestion) Qty: 180 3RF fluticasone propionate [Flonase Allergy Relief] 50 mcg/actuation spray,suspension 2 spray INTRANASAL BID Qty: 3 3RF atenolol 50 mg tablet 50 mg PO BID Qty: 180 3RF albuterol sulfate 2.5 mg /3 mL (0.083 %) solution for nebulization 2.5 mg INHALATION Q8H PRN (Reason: shortness of breath or wheezing) Qty: 270 11RF Rx Instructions: J44.9 COPD budesonide 0.5 mg/2 mL suspension for nebulization 0.5 mg INHALATION BID Qty: 180 11RF Prolia 60 mg/mL syringe 60 mg SC [id number] Qty: 1 2RF Bevespi Aerosphere 9-4.8 mcg HFA aerosol inhaler 2 puff INHALATION QAM AND QPM 90 Days Qty: 10.7 3RF Discontinued ivermectin [Soolantra] 1 % cream 1 applic TOPICAL DAILY acetaminophen [Tylenol] 325 mg tablet 650 mg PO ONCE PRN pseudoephedrine HCl [Sudafed] 30 mg tablet 30 mg PO ONCE PRN ayr saline gel NASAL 2XD Rx Instructions: apply a pea sized amount to both nostrils at bedtime and in am. vilazodone 10 mg tablet 10 mg PO DAILY Qty: 30 2RF Rx Instructions: must administer with a meal/food magnesium oxide 500 MG capsule 1,000 mg PO QHS diclofenac sodium 1 % gel 2 g TOPICAL ONCE PRN (Reason: pain) Qty: 100 2RF Rx Instructions: apply to single elbow, wrist or hand; for hand includes palm/fingers/back of hand mepolizumab 100 mg/mL auto-injector 300 mg SC Q4W Qty: 3 11RF mupirocin 2 % ointment 1 applic topical BID Qty: 15 0RF Rx Instructions: Apply to affected area twice daily x5 days as needed. metaxalone [Skelaxin] 800 mg tablet 800 mg PO TID Qty: 270 3RF mirtazapine 30 mg tablet See Rx Instructions .ROUTE .COMPLEX Qty: 90 3RF Dose Instruction: take 1 tablet by mouth at bedtime Rx Instructions: take 1 tablet by mouth at bedtime mirtazapine 7.5 mg tablet 7.5 mg PO QHS Qty: 90 3RF pilocarpine HCl 5 mg tablet 5 mg PO TID 90 Days Qty: 270 3RF cholecalciferol (vitamin D3) [Vitamin D3] 50 mcg (2,000 unit) capsule See Rx Instructions .ROUTE .COMPLEX Qty: 180 3RF Dose Instruction: take 1 capsule by mouth twice a day Rx Instructions: take 1 capsule by mouth twice a day furosemide 20 mg tablet 20 mg PO DAILY Qty: 180 3RF omega-3 fatty acids-fish oil [Fish Oil] 360-1,200 mg capsule 1 cap PO TID Qty: 270 1RF calcium citrate 200 mg (950 mg) tablet 200 mg PO TID Qty: 270 3RF levothyroxine 75 mcg tablet See Rx Instructions .ROUTE .COMPLEX Qty: 90 3RF Dose Instruction: take 1 tablet by mouth once daily Rx Instructions: take 1 tablet by mouth once daily No Action valerian root 450 mg capsule PO (DME) disability placard See Rx Instructions .ROUTE .MEDSUPPLY Qty: 1 0RF Rx Instructions: As directed, Length of time: 5 years lqhemedytpjz-Ob-vcfy-minerals 27-0.4 mg tablet 1 tab PO DAILY Qty: 90 3RF Referrals / Follow Up: Lashell Larsen MD [Primary Care Provider] - Disposition Disposition (needs filled in before D/C Order can be placed): NonSkilled NH/Intermed Care
--- NOTE | 2025-03-15 20:49 | TREXTCAR_ITS ---
Diet Diet Order/Speech Therapy: INPATIENT Hospital Diet / Speech Therapy Order(s) 03/09/25 15:41 Carb [Diet: Carbohydrate Controlled] Food consistency:: Regular Liquid Consistency:: Regular/Thin Fluid restriction:: 1500 mL Diet Comments: please send built up utensils and sippy cups Routine Orders/Code Status Code Status: Full Code DC O2, CPAP, BIPAP needs Home O2 Discharge instructions: No Wound(s) coccyx: Wound Type: redness L posterior side: Wound Type: pneumothorax site Dressing Change: Dry Sterile Dressing Posterior neck: Wound Type: laminectomy site Dressing Change: Dry Sterile Dressing Left mayberry: Wound Type: Skin Tear Right upper arm: Wound Type: scab Left forearm: Wound Type: Skin Tear Therapies Weight Bearing: Weight bearing as tolerated Extremity Affected:: Bilateral Lower Physical Therapy: Eval and Treat Problem/Diagnosis (1) Debility: Status: Acute Code(s): R53.81 - Other malaise (2) Cervical spondylosis: Status: Acute Code(s): M47.812 - Spondylosis without myelopathy or radiculopathy, cervical region (3) Cervical myelopathy: Status: Acute Code(s): G95.9 - Disease of spinal cord, unspecified (4) Hypokalemia: Status: Acute Code(s): E87.6 - Hypokalemia (5) Hyponatremia: Status: Acute Code(s): E87.1 - Hypo-osmolality and hyponatremia (6) Coronary artery disease: Status: Acute Code(s): I25.10 - Atherosclerotic heart disease of [place] coronary artery without angina pectoris (7) COPD (chronic obstructive pulmonary disease): Status: Chronic Code(s): J44.9 - Chronic obstructive pulmonary disease, unspecified (8) GERD (gastroesophageal reflux disease): Status: Chronic Code(s): K21.9 - Gastro-esophageal reflux disease without esophagitis (9) Essential (primary) hypertension: Status: Acute Code(s): I10 - Essential (primary) hypertension (10) Hypothyroid: Status: Chronic Code(s): E03.9 - Hypothyroidism, unspecified (11) Iron deficiency anemia: Status: Acute Code(s): D50.9 - Iron deficiency anemia, unspecified (12) Acute respiratory failure with hypoxia: Status: Acute Code(s): J96.01 - Acute respiratory failure with hypoxia (13) Pneumothorax: Status: Acute Code(s): J93.9 - Pneumothorax, unspecified Plan 74 year old female with below past medical history hospitalized for cervical spondylosis with myelopathy, underwent cervical decompression/laminectomy 02/23/[address] Collier, postoperative course complicated by acute respiratory failure with hypoxia 2/2 pneumothorax resolved with chest tube, hyponatremia, hypokalemia, admitted to TCU with debility, here for rehabilitation, strengthening, prior to discharge home alone. * Debility - PT/OT. * Pain - Tylenol 1000mg q6 prn pain (1-5), Oxycodone 5mg q4 prn pain (6-10). * Bowel - senna/colace 2 tablets bid, Magnesium citrate 300mL daily prn. * Adult immunization - Administer pneumonia vaccine, covid vaccine, flu vaccine as appropriate. * DVT prophylaxis - Lovenox 40mg sc daily. * Hypotension - Normal Saline 1 liter iv bolus, recheck blood pressure. * Asthma - Budesonide 0.5mg inhaled bid, Albuterol 2.5mg q6 prn, Singulair 10mg daily. * CAD - Atenolol 50mg bid. * Vitamin D deficiency - D3 50mcg daily. * IBS - Bentyl 20mg achs thru 03/15/2025. * Allergic rhinitis - Flonase 2 sprays nasal bid. * Folate deficiency - Folic acid 1.5mg daily. * Congestion - Mucinex 1200mg bid. * GERD - Lansoprazole 30mg daily. * Hypothyroidism - Levothyroxine 75mcg daily. * Muscle spasm - Skelaxin 800mg tid prn. * Nutrition - MVI 1 tablet daily. * Nausea - Zofran 4mg q8 prn. * Dry eyes - Artificial tears 1gtt ou q1h prn. * Migraines - Ubrelvy 100mg daily prn. * Zinc deficiency - Zinc 50mg daily. * Bacterial vaginosis - Flagyl 500mg po bid x 7 days. * Yeast vaginitis - Fluconazole 150mg po x 1 dose. * Dysuria - order UA, C+S. The following psychotropic medication was present on admission: Venlafaxine 100mg daily. Psychotropic medication therapy is indicated for a diagnosis of: Depression. Based on my clinical evaluation, continuation of the medication is necessary at this time. Gradual dose reduction plan (select one): ____ GDR will be attempted. Will monitor patient symptoms and behaviors in response to GDR. __x__ GRD contraindicated. Reason contraindicated: stable chronic filler block inserter remover use. The following psychotropic medication was present on admission: Mirtazapine 45mg qhs. Psychotropic medication therapy is indicated for a diagnosis of: Insomnia. Based on my clinical evaluation, continuation of the medication is necessary at this time. Gradual dose reduction plan (select one): ____ GDR will be attempted. Will monitor patient symptoms and behaviors in response to GDR. _x___ GRD contraindicated. Reason contraindicated: stable chronic halfway use. Allergies/Procedures Done in Hospital Allergies benztropine (From Cogentin) Allergy (Severe, Verified 09/30/23 14:10) hallucinations levofloxacin (From Levaquin) Allergy (Severe, Verified 09/30/23 14:10) Stomach pain lithium Allergy (Severe, Verified 09/30/23 14:10) Nausea/Vom/Diarrhea niacin Allergy (Severe, Verified 09/30/23 14:10) Rash Penicillins Allergy (Severe, Verified 09/30/23 14:10) Hives soybean Allergy (Intermediate, Verified 09/30/23 14:10) Rash Sulfa (Sulfonamide Antibiotics) Allergy (Intermediate, Verified 09/30/23 14:10) Hives trazodone Allergy (Intermediate, Verified 09/30/23 14:10) breathing problems sulfamethoxazole (From Bactrim) Allergy (Verified 09/30/23 14:10) Unknown trimethoprim (From Bactrim) Allergy (Verified 09/30/23 14:10) Unknown candesartan Adverse Reaction (Intermediate, Verified 09/30/23 14:10) Palpitations and depression hydrochlorothiazide Adverse Reaction (Intermediate, Verified 09/30/23 14:10) Palpitations and depression cephalexin (From Keflex) Adverse Reaction (Verified 09/30/23 14:10) yeast indection Procedures: None Type of Care/Length of Stay Estimated LOS: More Than 30 Days Type of Care Needed: Intermediate Rehab Potential: Fair Prognosis: Fair Additional Orders/Day of Discharge Additional Orders: part B therapies Day of Discharge: 03/17/25 Dietary and Speech Recommendations Dietitian Recommendations/Changes: Will continue consistent carbohydrate diet to manage blood sugars. Will continue fluid restriction as ordered d/t issues w/ hyponatremia Will discontinue order 120mL Glucerna TID with medpass d/t res consistent refusals Follow Up Care Please Follow Up With: Post-Op Kathleen Emerson When: March 23, 2025 Please Follow Up With: Tara When: April Discharge Plan Admission Admit Date/Time: 03/08/25 20:29 Primary Reason for Your Visit: Debility. Attending Provider: Dominik Bradley Chi Primary Care Provider: Lashell Larsen Instructions Additional Instructions / Restrictions: Discharge 03/17/2025 vijay Painter, Medicaid. Discharge Orders/Prescriptions Prescriptions: New acetaminophen 500 mg Tablet 1,000 mg PO Q6H PRN PRN (Reason: Pain Score 1-5) Qty: 0 0RF cholecalciferol (vitamin D3) 25 mcg (1,000 unit) Tablet 50 mcg PO BID Qty: 0 0RF ferrous sulfate [FeroSul] 325 mg (65 mg iron) Tablet 325 mg PO BREAKFAST Qty: 0 0RF dicyclomine 10 mg Capsule 20 mg PO ACHS Qty: 0 0RF enoxaparin 40 mg/0.4 mL Syringe 40 mg subcut DAILY@0600 Qty: 0 0RF levothyroxine 75 mcg Tablet 75 mcg PO DAILY@0600 Qty: 0 0RF menthol-zinc oxide [Calmoseptine] 0.44-20.6 % Ointment 1 applic topical BID Qty: 0 0RF Protocol: *Topical Application Instructions APPLICATION INSTRUCTIONS: bilat buttocks metaxalone 800 mg Tablet 800 mg PO TID PRN PRN (Reason: Muscle Spasm) Qty: 0 0RF montelukast 10 mg Tablet 10 mg PO HS Qty: 0 0RF mirtazapine 15 mg Tablet 45 mg PO QHS Qty: 0 0RF Artificial Tears([id number]) 1-0.2-0.2 % Drops 1 drp EACH EYE Q1H PRN (Reason: DRY EYES) Qty: 0 0RF sodium chloride 1,000 mg Tablet,Soluble 1,000 mg PO TIDCM Qty: 0 0RF Therapeutic-M 9 mg iron-400 mcg Tablet 1 tab PO BREAKFAST Qty: 0 0RF zinc sulfate 50 mg zinc (220 mg) Capsule 50 mg PO DAILY Qty: 0 0RF oxycodone 5 mg Tablet 5 mg PO Q4H PRN PRN (Reason: Pain Score 6-10 Or Pre Pt/Ot) 3 Days Qty: 18 0RF Continued folic acid 1 mg tablet 1.5 mg PO DAILY lansoprazole [Prevacid] 30 mg capsule,delayed release(DR/EC) 30 mg PO DAILY Qty: 90 3RF Rx Instructions: Take 30 minutes before breakfast on an empty stomach Mucinex 1,200 mg tablet extended release 12hr 1,200 mg PO BID PRN (Reason: cough, congestion) Qty: 180 3RF fluticasone propionate [Flonase Allergy Relief] 50 mcg/actuation spray,suspension 2 spray INTRANASAL BID Qty: 3 3RF atenolol 50 mg tablet 50 mg PO BID Qty: 180 3RF albuterol sulfate 2.5 mg /3 mL (0.083 %) solution for nebulization 2.5 mg INHALATION Q8H PRN (Reason: shortness of breath or wheezing) Qty: 270 11RF Rx Instructions: J44.9 COPD budesonide 0.5 mg/2 mL suspension for nebulization 0.5 mg INHALATION BID Qty: 180 11RF Prolia 60 mg/mL syringe 60 mg SC [id number] Qty: 1 2RF Bevespi Aerosphere 9-4.8 mcg HFA aerosol inhaler 2 puff INHALATION QAM AND QPM 90 Days Qty: 10.7 3RF Discontinued ivermectin [Soolantra] 1 % cream 1 applic TOPICAL DAILY acetaminophen [Tylenol] 325 mg tablet 650 mg PO ONCE PRN pseudoephedrine HCl [Sudafed] 30 mg tablet 30 mg PO ONCE PRN ayr saline gel NASAL 2XD Rx Instructions: apply a pea sized amount to both nostrils at bedtime and in am. vilazodone 10 mg tablet 10 mg PO DAILY Qty: 30 2RF Rx Instructions: must administer with a meal/food magnesium oxide 500 MG capsule 1,000 mg PO QHS diclofenac sodium 1 % gel 2 g TOPICAL ONCE PRN (Reason: pain) Qty: 100 2RF Rx Instructions: apply to single elbow, wrist or hand; for hand includes palm/fingers/back of hand mepolizumab 100 mg/mL auto-injector 300 mg SC Q4W Qty: 3 11RF mupirocin 2 % ointment 1 applic topical BID Qty: 15 0RF Rx Instructions: Apply to affected area twice daily x5 days as needed. metaxalone [Skelaxin] 800 mg tablet 800 mg PO TID Qty: 270 3RF mirtazapine 30 mg tablet See Rx Instructions .ROUTE .COMPLEX Qty: 90 3RF Dose Instruction: take 1 tablet by mouth at bedtime Rx Instructions: take 1 tablet by mouth at bedtime mirtazapine 7.5 mg tablet 7.5 mg PO QHS Qty: 90 3RF pilocarpine HCl 5 mg tablet 5 mg PO TID 90 Days Qty: 270 3RF cholecalciferol (vitamin D3) [Vitamin D3] 50 mcg (2,000 unit) capsule See Rx Instructions .ROUTE .COMPLEX Qty: 180 3RF Dose Instruction: take 1 capsule by mouth twice a day Rx Instructions: take 1 capsule by mouth twice a day furosemide 20 mg tablet 20 mg PO DAILY Qty: 180 3RF omega-3 fatty acids-fish oil [Fish Oil] 360-1,200 mg capsule 1 cap PO TID Qty: 270 1RF calcium citrate 200 mg (950 mg) tablet 200 mg PO TID Qty: 270 3RF levothyroxine 75 mcg tablet See Rx Instructions .ROUTE .COMPLEX Qty: 90 3RF Dose Instruction: take 1 tablet by mouth once daily Rx Instructions: take 1 tablet by mouth once daily No Action valerian root 450 mg capsule PO (DME) disability placard See Rx Instructions .ROUTE .MEDSUPPLY Qty: 1 0RF Rx Instructions: As directed, Length of time: 5 years [id number]-[id number]-minerals 27-0.4 mg tablet 1 tab PO DAILY Qty: 90 3RF Referrals / Follow Up: Lashell Larsen MD [Primary Care Provider] - Disposition Disposition (needs filled in before D/C Order can be placed): NonSkilled NH/Intermed Care (7) COPD (chronic obstructive pulmonary disease) Qualifiers: COPD type: unspecified COPD Qualified Code(s): J44.9 - Chronic obstructive pulmonary disease, unspecified
[2025-03-15 22:26] VITALS: BP 129/67; PULSE 90; O2SAT 97
[2025-03-16 05:50] LABS: Hematocrit 31.0 % (37-47); Hemoglobin 10.0 g/dL (12.0-15.0); Immature Granulocytes Count 0.040 X10^3/uL (0.0-0.0); Mean Corp Hgb Conc 32.3 g/dL (32-36); Mean Corpuscular Volume 96.9 fL (81-99); Mean Platelet Vol. 8.8 fl (6.2-12.0); NRBC Flagged by Analyzer 0 % (0-5); Platelet Count 405 K/mm3 (150-450); RBC Distribution Width CV 15.4 % (11.6-14.6); RBC Distribution Width SD 53.5 fl (35.1-43.9); Red Blood Count 3.20 M/mm3 (4.2-5.4); White Blood Count 6.6 K/mm3 (4.4-11.0)
[2025-03-16 06:20] LABS: Anion Gap 10 (5-15); BUN 17 mg/dL (4-19); BUN/Creat Ratio 29.9 RATIO (10-20); Calcium,Total 9.1 mg/dL (7.6-11.0); Carbon Dioxide 24.6 mmol/L (21.0-32.0); Chloride 99 mmol/L (98-108); Estimated Creatinine Clearance 44.98 ml/min (50-250); Glucose 117 mg/dL (70-99); Potassium 4.2 mmol/L (3.3-5.1)
[2025-03-16 07:58] VITALS: PULSE 74; RESP 18; O2SAT 94
[2025-03-16] MEDS: Budesonide Respules 0.5 MG/2 ML AMPUL.NEB. INHALATION ×2 (07:58→19:11)
[2025-03-16 09:00] VITALS: BP 113/63; PULSE 78; RESP 17; TEMP 36.4; O2SAT 98
[2025-03-16] MEDS: Fluticasone 0.05% 1 SPRAY NASAL.SRY 2 SPRAY NASAL ×2 (09:07→22:42)
[2025-03-16] MEDS: Zinc Sulfate 50 mg zinc (220 mg) ORAL capsule PO (09:08)
[2025-03-16] MEDS: Cholecalciferol (VIT D3) 25 MCG TABLET (1,000 UNITS) 50 MCG PO ×2 (09:08→22:41)
[2025-03-16] MEDS: Tuberculin,Purif.prot.deriv. 50 TU/ML Vial 0.1 ML ID (10:16)
--- NOTE | 2025-03-16 11:03 | CASEMGMT ---
Addendum entered by Sweta Arriaga 03/16/25 14:25: LOC Results received. Sent along with DC to [facility] Addendum entered by Sweta Arriaga 03/16/25 14:13: SW had to obtain pt's PASRR from Guille Haddad, from [facility], to send to [facility] for LOC results. Original Note: Social Work PASRR completed in [facility]. LOC faxed to [facility]. Scheduled cot transport through [facility] for 1100. Sweta Arriaga [employer]
[2025-03-16 19:11] VITALS: PULSE 75; RESP 18
[2025-03-16 22:30] VITALS: BP 106/60; PULSE 90; RESP 16; TEMP 35.9; O2SAT 95
[2025-03-17 06:56] VITALS: BP 136/69; PULSE 78; RESP 16; TEMP 35.6; O2SAT 97
[2025-03-17 07:42] VITALS: PULSE 80; RESP 20
[2025-03-17] MEDS: Budesonide Respules 0.5 MG/2 ML AMPUL.NEB. INHALATION (07:44)
[2025-03-17] MEDS: Cholecalciferol (VIT D3) 25 MCG TABLET (1,000 UNITS) 50 MCG PO (09:53)
[2025-03-17] MEDS: Zinc Sulfate 50 mg zinc (220 mg) ORAL capsule PO (09:54)
[2025-03-17] MEDS: Fluticasone 0.05% 1 SPRAY NASAL.SRY 2 SPRAY NASAL (09:58)
--- NOTE | 2025-03-17 10:24 | NURSING ---
[facility] [place]
[2025-03-17 10:55] VITALS: BP 142/81; PULSE 78; RESP 18; TEMP 36.7; O2SAT 99
--- NOTE | 2025-03-21 12:11 | MDS.RN ---
Information for the MDS was obtained from review of the clinical record, interview of resident, staff, and direct observation of resident?s care.
== END 2025-03-17 10:55 | disposition intermediate care facility (04) | DRG 560 ==
PROVIDERS: Admitting Provider Family Medicine Geriatric Medicine; PCP Internal Medicine; Referring Provider Family Medicine Geriatric Medicine; Visit Provider Family Medicine Geriatric Medicine
DX: Z47.89 Encounter for other orthopedic aftercare (principal); J95.811 Postprocedural pneumothorax; M47.12 Other spondylosis with myelopathy, cervical region; E87.1 Hypo-osmolality and hyponatremia; N39.0 Urinary tract infection, site not specified; E11.40 Type 2 diabetes mellitus with diabetic neuropathy, unspecified; B96.89 Other specified bacterial agents as the cause of diseases classified elsewhere; J44.89 Other specified chronic obstructive pulmonary disease; D50.9 Iron deficiency anemia, unspecified; E03.9 Hypothyroidism, unspecified; I10 Essential (primary) hypertension; F32.A Depression, unspecified; M79.7 Fibromyalgia; E53.8 Deficiency of other specified B group vitamins; I25.10 Atherosclerotic heart disease of native coronary artery without angina pectoris; K21.9 Gastro-esophageal reflux disease without esophagitis; J30.9 Allergic rhinitis, unspecified; E55.9 Vitamin D deficiency, unspecified; E78.5 Hyperlipidemia, unspecified; K58.0 Irritable bowel syndrome with diarrhea; B37.31 Acute candidiasis of vulva and vagina; Z87.891 Personal history of nicotine dependence; N76.0 Acute vaginitis; Y83.8 Other surgical procedures as the cause of abnormal reaction of the patient, or of later complication, without mention of misadventure at the time of the procedure; Z79.899 Other long term (current) drug therapy; Z79.51 Long term (current) use of inhaled steroids; G47.00 Insomnia, unspecified; Z79.890 Hormone replacement therapy
CPT/HCPCS: 36415; 80048; 81001; 82306; 82962; 83540; 83550; 83930; 83935; 84300; 84443; 85025; 87077; 87086; 87088; 87186; 92610; 94640; 97110; 97116; 97162; 97166; 97530; 97535; A4216